=== PATIENT | male | born 1950 | race African-American/Black ===

== ENCOUNTER 2020-01-05 15:09 | Inpatient (IN) | payer MEDICAID ==
[~2020-01-05] VITALS: Ht 175.3 cm; Wt 67.6 kg
[~2020-01-05 15:09] MED LIST: ACETAMINOPHEN325 M1 ORAL; BENZTROPINE ME0.5 MG PO; COLACE100 MG ORAL; DULCOLAX10 MG RC; DUONEB 0.5-3(2.53 ML HHN; FLEET ENEMA EX230 ML RC; FLEET ENEMA133 M1 RC; METFORMIN HCL500 M1 ORAL; MILK OF MA400 MG/51 ORAL; MOM30 ML ORAL; MULTIVITAMINS1 EAC2 ORAL; NORVASC5 MG ORAL; PLAVIX75 MG ORAL; SENNA8.6 M2 ORAL
[2020-01-05] MEDS ORDERED: CRANBERRY450 M5 PO (15:18)
[2020-01-05] MEDS ORDERED: HUMALOG100 UNIT/3 SUBQ (15:18)
[2020-01-05] MEDS ORDERED: FLOMAX0.4 MG ORAL (15:18)
[2020-01-05] MEDS ORDERED: Cefepime HCl 1 GM in D5W 55 ML IVPB ONE (15:30)
[2020-01-05] MEDS ORDERED: Vancomycin 1 GM in NS 275 ML IV ONE (15:30)
--- NOTE | 2020-01-05 15:33 | Emergency Room Report ---
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 According the nurse at the correction patient has been completely unresponsive today and was noted to have a heart rate of 130 bpm. Patient unable to participate in review of systems secondary to altered mental status. Patient was noted to have an oxygen saturation of 92% on room air and so was placed on 5 L nasal cannula by paramedics with resolution of his relative hypoxia. 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 COVID-19 Screening: Negative COVID-19 COVID-19 Testing Source: 11/28/19 Nursing Documentation-H Hx Cardiac Problems: Yes Hx Hypertension: Yes Hx Pacemaker: No Hx Asthma: No Hx COPD: Yes Hx Diabetes: Yes Hx Cancer: No Hx Gastrointestinal Problems: Yes Hx Neurological Problems: Yes - paraplegia Hx Dementia: Yes Hx Alzheimer's Disease: No Hx Parkinson's Disease: No - EPS Hx Meningitis: No Hx Encephalitis: No Hx Seizures: No Hx Epilepsy: No Hx Multiple Sclerosis: No Hx Cerebral Palsy: No Hx Amyotrophic Lat Sclerosis: No Hx Guillian-Rushford Syndrome: No Hx Paralysis: Yes - paraplegia Hx Peripheral Neuropathy: No Hx Spinal Cord Injury: No Hx Head Trauma: No Hx Traumatic Brain Injury: No Hx Memory Loss: No Hx Concentration Difficulty: Yes Hx Speech Problem: No Hx Tremors: No Hx Vertigo: No Hx Dizziness: No Hx Syncope: No Hx Headaches: No Hx Aphasia: No Hx Dysphasia: No Hx Numbness: No Hx Weakness: Yes Hx Fatigue: Yes Hx Neurologic Surgery: No Hx Brain Shunt: No Review of Systems All Other Systems: limited - Limited secondary to altered mental status Physical Exam Vital Signs Date Time Temp Pulse Resp B/P (MAP) Pulse Ox O2 Delivery O2 Flow Rate FiO2 01/05/20 15:06 97.5 131 20 103/66 (78) 95 Room Air Sp02 EP Interpretation: reviewed, normal General Appearance: other - Nonverbal and unresponsive, appears chronically ill. Mildly tachypneic Head: normocephalic, atraumatic Eyes: bilateral eye normal inspection, bilateral eye PERRL ENT: hearing grossly normal, normal pharynx, no angioedema, normal voice Neck: full range of motion, supple/symm/no masses Respiratory: chest non-tender, lungs clear, normal breath sounds, speaking full sentences Cardiovascular #1: regular rate, rhythm, no edema Cardiovascular #2: 2+ carotid (R), 2+ carotid (L), 2+ radial (R), 2+ radial (L), 2+ dorsalis pedis (R), 2+ dorsalis pedis (L) Gastrointestinal: normal bowel sounds, non tender, soft, non-distended, no guarding, no rebound Rectal: deferred Genitourinary: normal inspection, no CVA tenderness Musculoskeletal: back normal, normal range of motion, calf tenderness, gait/station normal, non-tender Neurologic: alert, motor strength/tone normal, oriented x3, sensory intact, responsive, speech normal Psychiatric: judgement/insight normal, memory normal, mood/affect normal, no suicidal/homicidal ideation Reflexes: 3+ bicep (R), 3+ bicep (L), 3+ tricep (R), 3+ tricep (L), 3+ knee (R), 3+ knee (L) Lymphatic: no adenopathy Medical Decision Making Diagnostic Impression: Primary Impression: Hypernatremia Additional Impressions: Dehydration Hypovolemic shock Lactic acid acidosis ER Course Total critical care time: Approximately 45 minutes Due to a high probability of clinically significant, life threatening deterioration, the patient required the highest level of preparedness to intervene emergently and I personally spent this critical care time directly and personally managing the patient. This critical care time included obtaining a history, examining the patient, pulse oximetry, ordering and reviewing studies, ordering treatments, evaluating response to treatment and updating management plan as needed, frequent reassessment and discussion with other providers as well as arranging for ultimate disposition. This critical to care time was performed to assess and manage the high probability of life-threatening deterioration that could result in multiorgan failure. This critical care time is separate from the separately billable procedures and treating other patients. Laboratory Tests Test 01/05/20 13:50 01/05/20 15:40 01/05/20 17:05 01/05/20 19:37 Urine Color Yellow Urine Appearance Clear Urine pH 5 (4.5-8.0) Urine Specific [place] 1.025 (1.005-1.035) Urine Protein 2+ (NEGATIVE) H Urine Glucose (UA) Negative (NEGATIVE) Urine Ketones 1+ (NEGATIVE) H Urine Blood Negative (NEGATIVE) Urine Nitrite Negative (NEGATIVE) Urine Bilirubin Negative (NEGATIVE) Urine Urobilinogen Normal MG/DL (0.0-1.0) Urine Leukocyte Esterase Negative (NEGATIVE) Urine RBC 0-2 /HPF (0 - 0) H Urine WBC 0-2 /HPF (0 - 0) Urine Squamous Epithelial Cells Occasional /LPF Urine Bacteria Few /HPF (NONE) White Blood Count 10.0 K/UL (4.8-10.8) Red Blood Count 3.49 M/UL (4.70-6.10) L Hemoglobin 10.2 G/DL (14.2-18.0) L Hematocrit 32.6 % (42.0-52.0) L Mean Corpuscular Volume 93 FL (80-99) Mean Corpuscular Hemoglobin 29.2 PG (27.0-31.0) Mean Corpuscular Hemoglobin Concent 31.2 G/DL (32.0-36.0) L Red Cell Distribution Width 19.8 % (11.6-14.8) H Platelet Count 236 K/UL (150-450) Mean Platelet Volume 6.6 FL (6.5-10.1) Neutrophils (%) (Auto) 70.4 % (45.0-75.0) Lymphocytes (%) (Auto) 21.5 % (20.0-45.0) Monocytes (%) (Auto) 7.1 % (1.0-10.0) Eosinophils (%) (Auto) 0.2 % (0.0-3.0) Basophils (%) (Auto) 0.7 % (0.0-2.0) Sodium Level 163 MMOL/L (136-145) *H Potassium Level 3.8 MMOL/L (3.5-5.1) Chloride Level 124 MMOL/L (98-107) H Carbon Dioxide Level 19 MMOL/L (21-32) L Anion Gap 20 mmol/L (5-15) H Blood Urea Nitrogen 53 mg/dL (7-18) H Creatinine 3.1 MG/DL (0.55-1.30) H Estimated Glomerular Filtration Rate 24.2 mL/min (>60) Glucose Level 146 MG/DL (74-106) H Lactic Acid Level 4.50 mmol/L (0.4-2.0) H 3.80 mmol/L (0.66-2.22) H Calcium Level 12.5 MG/DL (8.5-10.1) H Magnesium Level 2.4 MG/DL (1.8-2.4) Total Bilirubin 0.4 MG/DL (0.2-1.0) Aspartate Amino Transferase (AST) 79 U/L (15-37) H Alanine Aminotransferase (ALT) 15 U/L (12-78) Alkaline Phosphatase 64 U/L (46-116) Total Creatine Kinase 79 U/L (26-308) Creatine Kinase MB < 0.5 NG/ML (0.0-3.6) Creatine Kinase MB Relative Index 0.6 Troponin I 0.019 ng/mL (0.000-0.056) Total Protein 7.6 G/DL (6.4-8.2) Albumin 3.1 G/DL (3.4-5.0) L Globulin 4.5 g/dL Albumin/Globulin Ratio 0.7 (1.0-2.7) L POC Whole Blood Glucose 110 MG/DL (74-106) H Microbiology Date/Time Source Procedure Growth Status 01/05/20 15:40 Nasopharynx SARS-CoV-2 RdRp Gene Assay - Final Complete 01/05/20 13:40 Nasal Nares - Final Complete 01/05/20 13:40 Nasal Nares - Final Complete EKG: Sinus rhythm 131 bpm. Leftward axis, no ischemia, intervals WNL. No ectopy Rhythm strip: patient monitored for arrhythmias - no malignant dysrhythmias, runs of PVCs, nor pauses noted 69-year-old male here with altered mental status. The patient was highly lethargic when he arrived in the emergency department and was tachycardic at around 140 bpm. He was newly started IV normal saline and had gradual resolution of his tachycardia and improvement over the following several hours. CT head was unremarkable. Chest x-ray was largely unremarkable as well and patient no evidence of infection on urinalysis. However when patient arrived he was tachycardic and had a mildly low blood pressure. There was concern for sepsis and patient was given vancomycin and cefepime on arrival to the emergency department. However no evidence of infection was found in the ER. Blood cultures currently pending. Patient received a 30 cc/kg fluid bolus in the emergency room. Initial lactate was elevated and repeat lactate was mildly improved. Patient's mental status also greatly improved throughout his stay in the emergency department with IV fluids. He had a notable marked hypernatremia of 163. Admitted to SDU in critical condition. Last Vital Signs Date Time Temp Pulse Resp B/P (MAP) Pulse Ox O2 Delivery O2 Flow Rate FiO2 01/05/20 15:06 97.5 131 20 103/66 (78) 95 Room Air Jeison Hernandes M.D. Jan 05, 2020 15:33
[2020-01-05] MEDS: Albuterol/Ipratropium 3ml neb HHN SCH ×4 (16:00→18:29)
[2020-01-05 16:19] VITALS: BP 109/57
[2020-01-05 16:21] LABS: APPEARANCE,URINE CLEAR; BILIRUBIN, URINE NEGATIVE (NEGATIVE); COLOR,URINE YELLOW; GLUCOSE, URINE (UA) NEGATIVE (NEGATIVE); KETONES,URINE 1+ (NEGATIVE); LEUKOCYTE ESTERASE ,URINE NEGATIVE (NEGATIVE); NITRITE,URINE NEGATIVE (NEGATIVE); PH,URINE 5 (4.5-8.0); PROTEIN,URINE 2+ (NEGATIVE); UROBILINOGEN,URINE NORMAL MG/DL (0.0-1.0)
[2020-01-05 16:29] LABS: BASOPHILS % (AUTO) 0.7 % (0.0-2.0); EOSINOPHILS % (AUTO) 0.2 % (0.0-3.0); HEMATOCRIT 32.6 % (42.0-52.0); HEMOGLOBIN 10.2 G/DL (14.2-18.0); LYMPHOCYTES % (AUTO) 21.5 % (20.0-45.0); MEAN CORPUSCULAR VOLUME 93 FL (80-99); MONOCYTES % (AUTO) 7.1 % (1.0-10.0); NEUTROPHILS % (AUTO) 70.4 % (45.0-75.0); PLATELET COUNT 236 K/UL (150-450); RED BLOOD COUNT 3.49 M/UL (4.70-6.10); RED CELL DISTRIBUTION WIDTH 19.8 % (11.6-14.8)
--- NOTE | 2020-01-05 16:33 | Diagnostic Imaging Report ---
EXAM: XR Chest, 1 View CLINICAL HISTORY: AMS TECHNIQUE: Frontal view of the chest. COMPARISON: Chest x-ray 03/18/19 FINDINGS: Lungs: Mild interstitial vascular prominence. No focal infiltrate or consolidation. Pleural space: Unremarkable. No pneumothorax. Heart: Unremarkable. No cardiomegaly. Mediastinum: Unremarkable. Bones/joints: Unremarkable. IMPRESSION: Mild interstitial vascular prominence. No focal infiltrate or consolidation.
[2020-01-05 16:52] LABS: ALANINE AMINOTRANSFERASE 15 U/L (12-78); ALBUMIN 3.1 G/DL (3.4-5.0); ALBUMIN/GLOBULIN RATIO 0.7 (1.0-2.7); ALKALINE PHOSPHATASE 64 U/L (46-116); ANION GAP 20 mmol/L (5-15); ASPARTATE AMINO TRANSFERASE 79 U/L (15-37); BILIRUBIN,TOTAL 0.4 MG/DL (0.2-1.0); BLOOD UREA NITROGEN 53 mg/dL (7-18); CALCIUM 12.5 MG/DL (8.5-10.1); CARBON DIOXIDE 19 MMOL/L (21-32); CHLORIDE 124 MMOL/L (98-107); CKMB < 0.5 NG/ML (0.0-3.6); CREATINE KINASE 79 U/L (26-308); CREATININE 3.1 MG/DL (0.55-1.30); POTASSIUM 3.8 MMOL/L (3.5-5.1)
[2020-01-05 16:53] LABS: SODIUM 163 MMOL/L (136-145)
--- NOTE | 2020-01-05 17:39 | Diagnostic Imaging Report ---
EXAM: CT Head Without Intravenous Contrast CLINICAL HISTORY: AMS TECHNIQUE: Axial computed tomography images of the head/brain without intravenous contrast. CTDI is 106.8 mGy and DLP is 2531.0 mGy-cm. One or more of the following dose reduction techniques were used: automated exposure control, adjustment of the mA and/or kV according to patient size, use of iterative reconstruction technique. COMPARISON: No previous studies. FINDINGS: Limitations: Markedly limited, near nondiagnostic evaluation due to motion artifact. Brain: Grossly, no extra-axial collection. No hemorrhage. Midline shift: No midline shift or mass-effect per Ventricles: There is prominence of the ventricular system, cortical sulci, basilar cisterns, compatible with age related atrophy. Bones/joints: Calvarium is within normal limits. No acute fracture. Soft tissues: Unremarkable. Sinuses: Unremarkable as visualized. No acute sinusitis. Mastoid air cells: Mastoid air cells are well pneumatized. IMPRESSION: 1. Markedly limited, near nondiagnostic evaluation due to motion artifact. 2. Grossly, age-related changes and small vessel disease of aging are noted. 3. Again grossly, no acute intracranial pathology is detected. 4. If there is a high degree of concern or if there is concern for subtle abnormalities, magnetic resonance imaging of the brain with diffusion-weighted sequences should be performed, due to the markedly limited nature of the current study. 5. Close clinical correlation is necessary.
[2020-01-05 18:13] VITALS: BP 124/67
[2020-01-05 20:00] VITALS: BP 106/62
[2020-01-05] MEDS ORDERED: Albuterol/Ipratropium 3ml neb HHN PRN (20:15)
[2020-01-05] MEDS ORDERED: Fleet's Enema 133ml RECTAL PRN (20:15)
[2020-01-05] MEDS ORDERED: Milk of Magnesia 30ml Ud ORAL PRN (20:15)
[2020-01-05] MEDS: Tamsulosin 0.4mg cap ORAL SCH (21:00)
[2020-01-05] MEDS: NovoLOG Insulin Flexpen SUBQ SCH (21:00)
[2020-01-05] MEDS ORDERED: NovoLOG Insulin Flexpen SUBQ SCH (21:00)
[2020-01-05] MEDS: Sennosides 8.6mg tab ORAL SCH (21:00)
[2020-01-05] MEDS ORDERED: D5 1/2NS 1,000 ML IV SCH (21:00)
[2020-01-05] MEDS: Pantoprazole Inj IVP SCH (21:23)
[2020-01-06] VITALS: BP 103/62
[2020-01-06] MEDS ORDERED: Morphine Sulfate 2mg/ml Inj(IV/IM USE ONLY) IVP PRN (00:45)
[2020-01-06] MEDS ORDERED: Albuterol/Ipratropium 3ml neb HHN PRN (00:45)
[2020-01-06 03:47] VITALS: BP 110/64
[2020-01-06] MEDS: NovoLOG Insulin Flexpen SUBQ SCH ×4 (05:46→20:11)
[2020-01-06 07:07] LABS: BASOPHILS % (AUTO) 0.9 % (0.0-2.0); EOSINOPHILS % (AUTO) 0.7 % (0.0-3.0); HEMATOCRIT 31.4 % (42.0-52.0); HEMOGLOBIN 9.7 G/DL (14.2-18.0); LYMPHOCYTES % (AUTO) 20.4 % (20.0-45.0); MEAN CORPUSCULAR VOLUME 96 FL (80-99); MONOCYTES % (AUTO) 7.5 % (1.0-10.0); NEUTROPHILS % (AUTO) 70.5 % (45.0-75.0); PLATELET COUNT 198 K/UL (150-450); RED BLOOD COUNT 3.26 M/UL (4.70-6.10); RED CELL DISTRIBUTION WIDTH 19.9 % (11.6-14.8); WHITE BLOOD COUNT 8.3 K/UL (4.8-10.8)
[2020-01-06 07:41] LABS: % IRON SATURATION 53 % (15-50); CREATINE KINASE 105 U/L (26-308); GAMMA GLUTAMYL TRANSPEPTIDASE 43 U/L (5-85); IRON 114 ug/dL (50-175); LACTATE DEHYDROGENASE 415 U/L (81-234); TOTAL IRON BINDING CAPACITY 216 ug/dL (250-450)
[2020-01-06 07:54] LABS: ALBUMIN 2.8 G/DL (3.4-5.0); ALBUMIN/GLOBULIN RATIO 0.7 (1.0-2.7); BILIRUBIN,TOTAL 0.3 MG/DL (0.2-1.0); CALCIUM 11.5 MG/DL (8.5-10.1); CREATININE 2.8 MG/DL (0.55-1.30); PHOSPHORUS 3.4 MG/DL (2.5-4.9); POTASSIUM 3.3 MMOL/L (3.5-5.1)
[2020-01-06 08:00] VITALS: BP 107/68
[2020-01-06] MEDS ORDERED: metFORMIN 500mg tab ORAL SCH (09:00)
[2020-01-06] MEDS: Pantoprazole Inj IVP SCH ×2 (09:03→20:08)
[2020-01-06] MEDS: Benztropine 1mg tab ORAL SCH ×2 (09:04→18:00)
[2020-01-06] MEDS: Heparin 5000 units/ml inj SUBQ SCH ×2 (09:05→18:19)
[2020-01-06] MEDS: Docusate 100mg cap ORAL SCH (09:30)
[2020-01-06] MEDS: cefTRIAXone 1 GM in D5W 55 ML IVPB SCH (11:30)
[2020-01-06 12:00] VITALS: BP 100/62
--- NOTE | 2020-01-06 12:45 | History and Physical Report ---
DATE OF ADMISSION: 01/05/2020 TIME SEEN: 9 a.m. CONSULTANTS: 1. Dhiraj Biswas MD. 2. Kevin Lopez MD. CHIEF COMPLAINT: Dehydration, altered mental status, hypernatremia, tachycardia. BRIEF HISTORY: This is a 69-year-old male from [facility] presented with above-mentioned diagnoses, admitted to step-down unit, currently confused in bed, not talking much. REVIEW OF SYSTEMS: Unavailable. PAST MEDICAL HISTORY: Diabetes, hypertension, weakness, paraplegia, renal failure. PAST SURGICAL HISTORY: Unknown. MEDICATIONS: Ceftriaxone, potassium, heparin, benztropine, metformin, amlodipine, albuterol, insulin, tamsulosin, pantoprazole, magnesium, Bisacodyl. ALLERGIES: Denies. SOCIAL HISTORY: Unable to obtain secondary to the patient's condition. OBJECTIVE: GENERAL: Calm in bed, confused, not answering questions. VITAL SIGNS: Temperature is 97, pulse 108, respiratory rate 18, blood pressure 110/64. CARDIOVASCULAR: No murmur. LUNGS: Poor exchange. ABDOMEN: Bowel sounds distant. EXTREMITIES: No cyanosis or edema. NEUROLOGIC: The patient moves all extremities, slightly weak. LABORATORY AND DIAGNOSTIC DATA: Labs at this time show hemoglobin and hematocrit 9.7 and 31. BMP shows sodium 161, potassium 3.3, chloride 128, BUN and creatinine 40/2.8. Lactic acid 2.7. Albumin 2.8. Urinalysis show 1+ ketone, 2+ protein. ASSESSMENT: 1. Dehydration. 2. Altered mental status. 3. AVIS. 4. Hypernatremia. 5. Tachycardia. 6. Septic shock. 7. Anemia. 8. Malnutrition. 9. Diabetes. 10. . 11. COPD. 12. Renal failure. 13. Weakness. 14. Paraplegia. PLAN: 1. O2 and pulmonary treatment as needed. 2. NPO, IV fluids. 3. Antibiotics per Infectious Diseases. 4. Blood pressure, blood sugar, pain control. 5. IV fluids. 6. CBC and BMP in the morning. 7. PT and dietary evaluation. 8. We will ask Psych, Neuro, GI, ID followup. Farrukh Ríos D.O. DR: Johnny JOB#: [id number] CC:
--- NOTE | 2020-01-06 12:56 | Consultation ---
Consult Note Consult Note I am asked to evaluate the patient at the request of Dr. Ríos for renal failure and electrolyte imbalances Patient does not give any history Patient seen and examined. RN present in the room. Emergency room note: Chief Complaint: Altered Level of Consciousness 69-year-old male retirement patient nonverbal at baseline but occasionally responds with incomprehensible sounds and moving his arms, here with altered mental status. According the nurse at the retirement patient has been completely unresponsive today and was noted to have a heart rate of 130 bpm. Patient unable to participate in review of systems secondary to altered mental status. Patient was noted to have an oxygen saturation of 92% on room air and so was placed on 5 L nasal cannula by paramedics with resolution of his relative hypoxia. 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 HEAD AND NECK: Shows no JVD. LUNGS: Coarse rhonchi. CARDIOVASCULAR: Shows regular S1 and S2 with no gallop. ABDOMEN: Soft. EXTREMITIES: No pitting edema. LABORATORY DATA: Labs show white count of 8.3, hemoglobin of 9.7, hematocrit 31.4, and platelet count is 198. His sodium is 161, potassium is 3.3, BUN of 40, creatinine 2.8, and glucose of 113. His urinalysis was essentially negative. . Assessment/Plan Acute renal failure Possible underlying chronic kidney failure Severe dehydration Hypernatremia indicative of severe water deficit Severe hyperuricemia, partly due to dehydration and renal failure Acute metabolic and toxic encephalopathy Mild, malnutrition Anemia Lactic acid, possible sepsis Hypercalcemia D5W IV hydration Albumin bolus N.p.o. until able to take p.o. Antibiotics Monitor renal parameters I spent an additional 36 minutes on review of medical records including prior hospital records,consult notes, progress notes, procedures ,imaging labs, hemodynamics, and other clinical documentation. Over 35 min Dhiraj Biswas MD Jan 06, 2020 12:56
[2020-01-06] MEDS ORDERED: Varibar Thin Liquid powder 148gm MC PRN (15:30)
[2020-01-06] MEDS ORDERED: Varibar Nectar 240ml MC PRN (15:30)
[2020-01-06] MEDS ORDERED: Varibar Pudding 230ml MC PRN (15:30)
[2020-01-06] MEDS ORDERED: Varibar Honey 250ml MC PRN (15:30)
[2020-01-06 16:00] VITALS: BP 112/63
--- NOTE | 2020-01-06 18:20 | Cardiac Electrophysiology PN ---
Subjective Subjective [id number] Objective Last 24 Hour Vital Signs Date Time Temp Pulse Resp B/P (MAP) Pulse Ox O2 Delivery O2 Flow Rate FiO2 01/06/20 16:00 Room Air 01/06/20 16:00 96.4 103 19 112/63 (79) 100 01/06/20 15:29 104 01/06/20 12:00 96.6 108 19 100/62 (75) 100 01/06/20 12:00 Room Air 01/06/20 11:59 107 01/06/20 08:00 96.3 109 18 107/68 (81) 100 01/06/20 08:00 Room Air 01/06/20 07:39 108 01/06/20 04:00 Room Air 01/06/20 03:47 97.0 108 18 110/64 (79) 99 01/06/20 03:34 108 01/06/20 00:00 97.1 112 18 103/62 (76) 99 01/06/20 00:00 Room Air 01/05/20 23:41 112 01/05/20 21:28 Room Air 4.0 01/05/20 20:00 97.6 120 16 106/62 (77) 98 01/05/20 20:00 Room Air 01/05/20 20:00 121 01/05/20 19:21 120 01/05/20 18:37 97.5 117 22 124/67 100 Room Air 4.0 Intake and Output 01/05/20 01/06/20 19:00 07:00 Intake Total 843.75 ml Output Total 400 ml Balance 443.75 ml Intake IV Total 843.75 ml Output Urine Total 400 ml # Voids 1 # Bowel Movements 1 Laboratory Tests Test 01/05/20 19:37 01/06/20 05:09 01/06/20 06:25 01/06/20 08:50 POC Whole Blood Glucose 110 MG/DL (74-106) H 111 MG/DL (74-106) H White Blood Count 8.3 K/UL (4.8-10.8) Red Blood Count 3.26 M/UL (4.70-6.10) L Hemoglobin 9.7 G/DL (14.2-18.0) L Hematocrit 31.4 % (42.0-52.0) L Mean Corpuscular Volume 96 FL (80-99) Mean Corpuscular Hemoglobin 29.8 PG (27.0-31.0) Mean Corpuscular Hemoglobin Concent 30.9 G/DL (32.0-36.0) L Red Cell Distribution Width 19.9 % (11.6-14.8) H Platelet Count 198 K/UL (150-450) Mean Platelet Volume 6.4 FL (6.5-10.1) L Neutrophils (%) (Auto) 70.5 % (45.0-75.0) Lymphocytes (%) (Auto) 20.4 % (20.0-45.0) Monocytes (%) (Auto) 7.5 % (1.0-10.0) Eosinophils (%) (Auto) 0.7 % (0.0-3.0) Basophils (%) (Auto) 0.9 % (0.0-2.0) Sodium Level 161 MMOL/L (136-145) *H Potassium Level 3.3 MMOL/L (3.5-5.1) L Chloride Level 125 MMOL/L (98-107) H Carbon Dioxide Level 22 MMOL/L (21-32) Anion Gap 14 mmol/L (5-15) Blood Urea Nitrogen 48 mg/dL (7-18) H Creatinine 2.8 MG/DL (0.55-1.30) H Estimat Glomerular Filtration Rate 27.3 mL/min (>60) Glucose Level 113 MG/DL (74-106) H Hemoglobin A1c 5.6 % (4.3-6.0) Lactic Acid Level 2.70 mmol/L (0.4-2.0) H 2.70 mmol/L (0.66-2.22) H Uric Acid 29.3 MG/DL (2.6-7.2) H Calcium Level 11.5 MG/DL (8.5-10.1) H Phosphorus Level 3.4 MG/DL (2.5-4.9) Magnesium Level 2.2 MG/DL (1.8-2.4) Iron Level 114 ug/dL (50-175) Total Iron Binding Capacity 216 ug/dL (250-450) L Percent Iron Saturation 53 % (15-50) H Unsaturated Iron Binding 102 ug/dL (112-346) L Ferritin 955 NG/ML (8-388) H Total Bilirubin 0.3 MG/DL (0.2-1.0) Gamma Glutamyl Transpeptidase 43 U/L (5-85) Aspartate Amino Transf (AST/SGOT) 79 U/L (15-37) H Alanine Aminotransferase (ALT/SGPT) 14 U/L (12-78) Alkaline Phosphatase 55 U/L (46-116) Lactate Dehydrogenase 415 U/L (81-234) H Total Creatine Kinase 105 U/L (26-308) Total Protein 6.8 G/DL (6.4-8.2) Albumin 2.8 G/DL (3.4-5.0) L Globulin 4.0 g/dL Albumin/Globulin Ratio 0.7 (1.0-2.7) L Vitamin B12 Level 564 PG/ML (193-986) Folate 9.4 NG/ML (8.6-58.9) Thyroid Stimulating Hormone (TSH) 1.111 uiU/mL (0.358-3.740) Test 01/06/20 11:35 01/06/20 16:52 POC Whole Blood Glucose 93 MG/DL (74-106) 84 MG/DL (74-106) Microbiology Date/Time Source Procedure Growth Status 01/05/20 15:40 Nasopharynx SARS-CoV-2 RdRp Gene Assay - Final Complete 01/05/20 13:40 Nasal Nares - Final Complete 01/05/20 13:40 Nasal Nares - Final Complete Kevin Lopez MD Jan 06, 2020 18:20
[2020-01-06 20:00] VITALS: BP 101/62
[2020-01-06] MEDS: Sennosides 8.6mg tab ORAL SCH (20:08)
[2020-01-06] MEDS: Tamsulosin 0.4mg cap ORAL SCH (20:09)
--- NOTE | 2020-01-06 20:45 | Consultation ---
DATE OF CONSULTATION: 01/06/2020 CARDIOLOGY CONSULTATION REFERRING PHYSICIAN: Farrukh Ríos M.D. REASON FOR CONSULTATION: Management of hypertension and shortness of breath. HISTORY OF PRESENT ILLNESS: The patient is a 69-year-old gentleman with a history of hypertension who [facility], who was brought in for unresponsiveness and heart rate of 130. The patient was altered and saturation was 92% and was placed on 5 liters nasal cannula by paramedics and hypoxia resolved. The patient was transferred to the emergency room for further evaluation and management. REVIEW OF SYSTEMS: Cannot be obtained. PAST MEDICAL HISTORY: As mentioned above. FAMILY HISTORY: Noncontributory. SOCIAL HISTORY: He is a jail resident. Does not smoke or drink alcohol. PHYSICAL EXAMINATION: VITAL SIGNS: Show blood pressure 103/66, pulse was 130, respirations 20, and he is afebrile. HEAD AND NECK: Shows no JVD. LUNGS: Coarse rhonchi. CARDIOVASCULAR: Shows regular S1 and S2 with no gallop. ABDOMEN: Soft. EXTREMITIES: No pitting edema. LABORATORY DATA: Labs show white count of 8.3, hemoglobin of 9.7, hematocrit 31.4, and platelet count is 198. His sodium is 161, potassium is 3.3, BUN of 40, creatinine 2.8, and glucose of 113. His urinalysis was essentially negative. ASSESSMENT AND PLAN: 1. Altered mental status, likely due to severe dehydration in view of sodium of 160 and acute renal failure. The patient is getting IV fluids as well as IV antibiotics. 2. History of hypertension. We will hold off on his blood pressure medication at this time. 3. History of CVA, on Plavix. Of note at the jail, the patient was on amlodipine and metoprolol, but has been discontinued in view of relative hypotension. 4. Advanced dementia. 5. Diabetes. 6. Acute renal failure. The patient is being hydrated. Thank you very much for allowing me to participate in the care of this patient. Please do not hesitate to contact me for any questions regarding my evaluation. Kevin Lopez M.D. DR: Alysa JOB#: [id number] CC:
[2020-01-07] VITALS: BP 97/53
[2020-01-07 04:00] VITALS: BP 115/67
[2020-01-07 06:23] LABS: BASOPHILS % (AUTO) 0.7 % (0.0-2.0); HEMATOCRIT 29.1 % (42.0-52.0); LYMPHOCYTES % (AUTO) 26.6 % (20.0-45.0); MEAN CORPUSCULAR VOLUME 96 FL (80-99); NEUTROPHILS % (AUTO) 65.7 % (45.0-75.0); PLATELET COUNT 192 K/UL (150-450); RED BLOOD COUNT 3.04 M/UL (4.70-6.10); RED CELL DISTRIBUTION WIDTH 20.5 % (11.6-14.8); WHITE BLOOD COUNT 7.7 K/UL (4.8-10.8)
[2020-01-07] MEDS: NovoLOG Insulin Flexpen SUBQ SCH ×4 (06:30→21:00)
[2020-01-07 07:02] LABS: ALBUMIN 2.6 G/DL (3.4-5.0); ALBUMIN/GLOBULIN RATIO 0.6 (1.0-2.7); BILIRUBIN,TOTAL 0.3 MG/DL (0.2-1.0); CALCIUM 11.3 MG/DL (8.5-10.1); CREATININE 2.8 MG/DL (0.55-1.30); PHOSPHORUS 3.7 MG/DL (2.5-4.9); POTASSIUM 3.2 MMOL/L (3.5-5.1)
[2020-01-07 07:59] VITALS: BP 106/59
[2020-01-07] MEDS: Docusate 100mg cap ORAL SCH (08:50)
[2020-01-07] MEDS ORDERED: Tubing IV Secondary IV ONE ×2 (08:56→17:35)
[2020-01-07] MEDS: Heparin 5000 units/ml inj SUBQ SCH ×2 (09:07→21:03)
[2020-01-07] MEDS: Pantoprazole Inj IVP SCH ×2 (09:08→20:51)
[2020-01-07] MEDS: Benztropine 1mg tab ORAL SCH ×2 (09:08→17:14)
--- NOTE | 2020-01-07 09:35 | General Progress Note ---
Subjective Constitutional: Reports: weakness Allergies: Coded Allergies: No Known Allergies (Unverified , 03/18/19) All Systems: reviewed and negative except above Subjective sleepy calm in bed Objective Last 24 Hour Vital Signs Date Time Temp Pulse Resp B/P (MAP) Pulse Ox O2 Delivery O2 Flow Rate FiO2 01/07/20 08:00 93 01/07/20 08:00 Room Air 01/07/20 07:59 97.2 100 20 106/59 (75) 100 01/07/20 04:00 97.6 96 18 115/67 (83) 99 01/07/20 04:00 Room Air 01/07/20 03:53 91 01/07/20 00:00 97.8 89 16 97/53 (68) 100 01/07/20 00:00 Room Air 01/06/20 23:58 100 01/06/20 20:00 97.4 101 16 101/62 (75) 100 01/06/20 20:00 102 01/06/20 20:00 Room Air 01/06/20 18:58 103 20 99 Room Air 21 01/06/20 16:00 Room Air 01/06/20 16:00 96.4 103 19 112/63 (79) 100 01/06/20 15:29 104 01/06/20 12:00 96.6 108 19 100/62 (75) 100 01/06/20 12:00 Room Air 01/06/20 11:59 107 Intake and Output 01/06/20 01/07/20 19:00 07:00 Intake Total 950 ml 822 ml Output Total 500 ml 300 ml Balance 450 ml 522 ml Intake IV Total 950 ml 822 ml Output Urine Total 500 ml 300 ml Laboratory Tests 01/06/20 11:35: POC Whole Blood Glucose 93 01/06/20 16:52: POC Whole Blood Glucose 84 01/06/20 20:11: POC Whole Blood Glucose 75 01/07/20 03:00: Urine Random Sodium 26 01/07/20 04:09: White Blood Count 7.7, Red Blood Count 3.04L, Hemoglobin 9.0L, Hematocrit 29.1L, Mean Corpuscular Volume 96, Mean Corpuscular Hemoglobin 29.6, Mean Corpuscular Hemoglobin Concent 30.9L, Red Cell Distribution Width 20.5H, Platelet Count 192, Mean Platelet Volume 6.3L, Neutrophils (%) (Auto) 65.7, Lymphocytes (%) (Auto) 26.6, Monocytes (%) (Auto) 6.0, Eosinophils (%) (Auto) 1.0, Basophils (%) (Auto) 0.7, Sodium Level 152H, Potassium Level 3.2L, Chloride Level 116H, Carbon Dioxide Level 18L, Anion Gap 18H, Blood Urea Nitrogen 48H, Creatinine 2.8H, Estimat Glomerular Filtration Rate 27.3, Glucose Level 94, Uric Acid 27.4H, Calcium Level 11.3H, Phosphorus Level 3.7, Magnesium Level 2.0, Total Bilirubin 0.3, Aspartate Amino Transf (AST/SGOT) 93H, Alanine Aminotransferase (ALT/SGPT) 14, Alkaline Phosphatase 56, Troponin I 0.009, C-Reactive Protein, Quantitative 4.9H, Pro-B-Type Natriuretic Peptide 1312H, Total Protein 6.7, Albumin 2.6L, Globulin 4.1, Albumin/Globulin Ratio 0.6L 01/07/20 06:18: POC Whole Blood Glucose 97 Height (Feet): 6 Height (Inches): 0.00 Weight (Pounds): 150 General Appearance: lethargic EENT: normal ENT inspection Neck: normal alignment Cardiovascular: normal peripheral pulses, normal rate, regular rhythm Respiratory/Chest: chest wall non-tender, lungs clear, normal breath sounds Abdomen: normal bowel sounds, non tender, soft Extremities: normal inspection Edema: no edema noted Arm (L), no edema noted Arm (R), no edema noted Leg (L), no edema noted Leg (R), no edema noted Pedal (L), no edema noted Pedal (R), no edema noted Generalized Neurologic: motor weakness Skin: normal pigmentation, warm/dry Assessment/Plan Problem List: (1) Anemia ICD Codes: D64.9 - Anemia, unspecified SNOMED: 434803015 (2) Paraplegia ICD Codes: G82.20 - Paraplegia, unspecified SNOMED: 20773103 (3) Diabetes ICD Codes: E11.9 - Type 2 diabetes mellitus without complications SNOMED: 79863898 (4) Weak ICD Codes: R53.1 - Weakness SNOMED: 76819457 (5) HTN (hypertension) ICD Codes: I10 - Essential (primary) hypertension SNOMED: 15911257 (6) ARF (acute renal failure) ICD Codes: N17.9 - Acute kidney failure, unspecified SNOMED: 92275060 (7) Altered level of consciousness ICD Codes: R40.4 - Transient alteration of awareness SNOMED: 0273734 (8) Dehydration ICD Codes: E86.0 - Dehydration SNOMED: 79866204 (9) Hypernatremia ICD Codes: E87.0 - Hyperosmolality and hypernatremia SNOMED: 335340795 Status: unchanged Assessment/Plan: o2 pulm tx abx ivf cbc bmp am Farrukh Ríos DO Jan 07, 2020 09:35
--- NOTE | 2020-01-07 09:37 | General Progress Note ---
Subjective ROS Limited/Unobtainable: No Allergies: Coded Allergies: No Known Allergies (Unverified , 03/18/19) Objective Last 24 Hour Vital Signs Date Time Temp Pulse Resp B/P (MAP) Pulse Ox O2 Delivery O2 Flow Rate FiO2 01/07/20 08:00 93 01/07/20 08:00 Room Air 01/07/20 07:59 97.2 100 20 106/59 (75) 100 01/07/20 04:00 97.6 96 18 115/67 (83) 99 01/07/20 04:00 Room Air 01/07/20 03:53 91 01/07/20 00:00 97.8 89 16 97/53 (68) 100 01/07/20 00:00 Room Air 01/06/20 23:58 100 01/06/20 20:00 97.4 101 16 101/62 (75) 100 01/06/20 20:00 102 01/06/20 20:00 Room Air 01/06/20 18:58 103 20 99 Room Air 21 01/06/20 16:00 Room Air 01/06/20 16:00 96.4 103 19 112/63 (79) 100 01/06/20 15:29 104 01/06/20 12:00 96.6 108 19 100/62 (75) 100 01/06/20 12:00 Room Air 01/06/20 11:59 107 Intake and Output 01/06/20 01/07/20 19:00 07:00 Intake Total 950 ml 822 ml Output Total 500 ml 300 ml Balance 450 ml 522 ml Intake IV Total 950 ml 822 ml Output Urine Total 500 ml 300 ml Laboratory Tests 01/06/20 11:35: POC Whole Blood Glucose 93 01/06/20 16:52: POC Whole Blood Glucose 84 01/06/20 20:11: POC Whole Blood Glucose 75 01/07/20 03:00: Urine Random Sodium 26 01/07/20 04:09: White Blood Count 7.7, Red Blood Count 3.04L, Hemoglobin 9.0L, Hematocrit 29.1L, Mean Corpuscular Volume 96, Mean Corpuscular Hemoglobin 29.6, Mean Corpuscular Hemoglobin Concent 30.9L, Red Cell Distribution Width 20.5H, Platelet Count 192, Mean Platelet Volume 6.3L, Neutrophils (%) (Auto) 65.7, Lymphocytes (%) (Auto) 26.6, Monocytes (%) (Auto) 6.0, Eosinophils (%) (Auto) 1.0, Basophils (%) (Auto) 0.7, Sodium Level 152H, Potassium Level 3.2L, Chloride Level 116H, Carbon Dioxide Level 18L, Anion Gap 18H, Blood Urea Nitrogen 48H, Creatinine 2.8H, Estimat Glomerular Filtration Rate 27.3, Glucose Level 94, Uric Acid 27.4H, Calcium Level 11.3H, Phosphorus Level 3.7, Magnesium Level 2.0, Total Bilirubin 0.3, Aspartate Amino Transf (AST/SGOT) 93H, Alanine Aminotransferase (ALT/SGPT) 14, Alkaline Phosphatase 56, Troponin I 0.009, C-Reactive Protein, Quantitative 4.9H, Pro-B-Type Natriuretic Peptide 1312H, Total Protein 6.7, Albumin 2.6L, Globulin 4.1, Albumin/Globulin Ratio 0.6L 01/07/20 06:18: POC Whole Blood Glucose 97 Height (Feet): 6 Height (Inches): 0.00 Weight (Pounds): 150 General Appearance: confused EENT: normal ENT inspection Neck: supple Cardiovascular: normal rate Respiratory/Chest: decreased breath sounds Abdomen: hypoactive bowel sounds Extremities: non-tender Assessment/Plan Status: unchanged Assessment/Plan: AMS dementia Anemia DM hyper CA elevated AST low albumin COPD RI HTN pending swallow eval anemia work up GI procedures on hold fu nephrology and cardiology recs repeat labs Paulino Bueno MD Jan 07, 2020 09:37
[2020-01-07] MEDS: cefTRIAXone 1 GM in D5W 55 ML IVPB SCH (10:21)
[2020-01-07 12:00] VITALS: BP 98/60
--- NOTE | 2020-01-07 12:16 | Consultation ---
History of Present Illness General Chief Complaint: Altered Level of Consciousness Present Illness Allergies: Coded Allergies: No Known Allergies (Unverified , 03/18/19) Medication History Scheduled Amlodipine Besylate (Norvasc), 5 MG ORAL DAILY, (Reported) Benztropine Mesylate* (Cogentin*), 1.5 MG PO BID, (Reported) Clopidogrel Bisulfate* (Plavix*), 75 MG ORAL DAILY, (Reported) Cranberry Fruit (Cranberry), 450 MG PO TWICE A DAY, (Reported) Docusate Sodium* (Colace*), 200 MG ORAL DAILY, (Reported) Insulin Lispro (Humalog), 0 SUBQ BID AC, (Reported) Metformin Hcl* (Metformin Hcl*), 500 MG ORAL BID WITH MEALS, (Reported) Multivitamins* (Multivitamins*), 1 TAB ORAL DAILY, (Reported) Sennosides (Senna), 17.2 MG ORAL QHS, (Reported) Tamsulosin HCl (Flomax), 0.4 MG ORAL BEDTIME, (Reported) Scheduled PRN Acetaminophen* (Acetaminophen 325MG Tablet*), 650 MG ORAL Q4H PRN for Mild Pain (Pain Scale 1-3), (Reported) Acetaminophen* (Acetaminophen 325MG Tablet*), 650 MG ORAL Q4H PRN for Prn Headache/Temp > 101, (Reported) Bisacodyl (Dulcolax), 10 MG RC DAILY PRN for Constipation, (Reported) Ipratropium/Albuterol Sulfate (DuoNeb 0.5-3(2.5)mg/3ml), 3 ML HHN Q4HR PRN for Shortness of Breath, (Reported) Magnesium Hydroxide* (Milk Of Magnesia*), 30 ML ORAL QHS PRN for Constipation, (Reported) Na Phos,M-B/Na Phos,Di-Ba (Fleet Enema), 133 ML RC EVERY OTHER DAY PRN for Constipation, (Reported) Patient History Healthcare decision maker Resuscitation status Advanced Directive on File Physical Exam Last 24 Hour Vital Signs Date Time Temp Pulse Resp B/P (MAP) Pulse Ox O2 Delivery O2 Flow Rate FiO2 01/07/20 08:00 93 01/07/20 08:00 Room Air 01/07/20 07:59 97.2 100 20 106/59 (75) 100 01/07/20 04:00 97.6 96 18 115/67 (83) 99 01/07/20 04:00 Room Air 01/07/20 03:53 91 01/07/20 00:00 97.8 89 16 97/53 (68) 100 01/07/20 00:00 Room Air 01/06/20 23:58 100 01/06/20 20:00 97.4 101 16 101/62 (75) 100 01/06/20 20:00 102 01/06/20 20:00 Room Air 01/06/20 18:58 103 20 99 Room Air 21 01/06/20 16:00 Room Air 01/06/20 16:00 96.4 103 19 112/63 (79) 100 01/06/20 15:29 104 Intake and Output 01/06/20 01/07/20 19:00 07:00 Intake Total 950 ml 922 ml Output Total 500 ml 300 ml Balance 450 ml 622 ml Intake IV Total 950 ml 922 ml Output Urine Total 500 ml 300 ml Laboratory Tests Test 01/06/20 16:52 01/06/20 20:11 01/07/20 03:00 01/07/20 04:09 POC Whole Blood Glucose 84 MG/DL (74-106) 75 MG/DL (74-106) Urine Random Sodium 26 mmol/L (20-110) White Blood Count 7.7 K/UL (4.8-10.8) Red Blood Count 3.04 M/UL (4.70-6.10) L Hemoglobin 9.0 G/DL (14.2-18.0) L Hematocrit 29.1 % (42.0-52.0) L Mean Corpuscular Volume 96 FL (80-99) Mean Corpuscular Hemoglobin 29.6 PG (27.0-31.0) Mean Corpuscular Hemoglobin Concent 30.9 G/DL (32.0-36.0) L Red Cell Distribution Width 20.5 % (11.6-14.8) H Platelet Count 192 K/UL (150-450) Mean Platelet Volume 6.3 FL (6.5-10.1) L Neutrophils (%) (Auto) 65.7 % (45.0-75.0) Lymphocytes (%) (Auto) 26.6 % (20.0-45.0) Monocytes (%) (Auto) 6.0 % (1.0-10.0) Eosinophils (%) (Auto) 1.0 % (0.0-3.0) Basophils (%) (Auto) 0.7 % (0.0-2.0) Sodium Level 152 MMOL/L (136-145) H Potassium Level 3.2 MMOL/L (3.5-5.1) L Chloride Level 116 MMOL/L (98-107) H Carbon Dioxide Level 18 MMOL/L (21-32) L Anion Gap 18 mmol/L (5-15) H Blood Urea Nitrogen 48 mg/dL (7-18) H Creatinine 2.8 MG/DL (0.55-1.30) H Estimat Glomerular Filtration Rate 27.3 mL/min (>60) Glucose Level 94 MG/DL (74-106) Uric Acid 27.4 MG/DL (2.6-7.2) H Calcium Level 11.3 MG/DL (8.5-10.1) H Phosphorus Level 3.7 MG/DL (2.5-4.9) Magnesium Level 2.0 MG/DL (1.8-2.4) Total Bilirubin 0.3 MG/DL (0.2-1.0) Aspartate Amino Transf (AST/SGOT) 93 U/L (15-37) H Alanine Aminotransferase (ALT/SGPT) 14 U/L (12-78) Alkaline Phosphatase 56 U/L (46-116) Troponin I 0.009 ng/mL (0.000-0.056) C-Reactive Protein, Quantitative 4.9 mg/dL (0.00-0.90) H Pro-B-Type Natriuretic Peptide 1312 pg/mL (0-125) H Total Protein 6.7 G/DL (6.4-8.2) Albumin 2.6 G/DL (3.4-5.0) L Globulin 4.1 g/dL Albumin/Globulin Ratio 0.6 (1.0-2.7) L Test 01/07/20 06:18 01/07/20 11:36 POC Whole Blood Glucose 97 MG/DL (74-106) 111 MG/DL (74-106) H Height (Feet): 6 Height (Inches): 0.00 Weight (Pounds): 150 Medications Current Medications Medications (Trade) Dose Ordered Sig/Jesse Route PRN Reason Start Time Stop Time Status Last Admin Dose Admin Acetaminophen (Tylenol) 650 mg Q4H PRN ORAL PRNH/TEMP 01/05/20 20:15 02/04/20 20:14 Albuterol/ Ipratropium (Albuterol/ Ipratropium) 3 ml Q4H PRN HHN Shortness of Breath 01/05/20 20:15 01/10/20 20:14 Albuterol/ Ipratropium (Albuterol/ Ipratropium) 3 ml Q6HRT PRN HHN Shortness of Breath 01/06/20 00:45 01/11/20 00:44 Barium Sulfate (Varibar Honey) 250 ml NOW PRN MC RAD 01/06/20 15:30 01/09/20 15:24 Barium Sulfate (Varibar [place]) 240 ml NOW PRN MC RAD 01/06/20 15:30 01/09/20 15:24 Barium Sulfate (Varibar Pudding) 230 ml NOW PRN MC RAD 01/06/20 15:30 01/09/20 15:24 Barium Sulfate (Varibar Thin Liquid powder) 148 gm NOW PRN MC RAD 01/06/20 15:30 01/09/20 15:24 Benztropine Mesylate (Cogentin) 1.5 mg BID ORAL 01/06/20 09:00 02/05/20 08:59 01/07/20 09:08 Bisacodyl (Dulcolax) 10 mg DAILY PRN RECTAL Constipation 01/05/20 20:15 04/04/20 20:14 Ceftriaxone Sodium 1 gm/ Dextrose 55 ml @ 110 mls/hr Q24H IVPB 01/06/20 11:00 01/13/20 10:59 01/07/20 10:21 Clopidogrel Bisulfate (Plavix) 75 mg DAILY ORAL 01/06/20 09:00 02/05/20 08:59 01/07/20 09:08 Dextrose 1,000 ml @ 150 mls/hr Q6H40M IV 01/05/20 19:45 02/04/20 19:44 01/07/20 09:51 Dextrose (Dextrose 50%) 25 ml Q30M PRN IV Hypoglycemia 01/05/20 20:15 04/04/20 20:14 Dextrose (Dextrose 50%) 50 ml Q30M PRN IV Hypoglycemia 01/05/20 20:15 04/04/20 20:14 Docusate Sodium (Colace) 200 mg DAILY ORAL 01/06/20 09:00 02/05/20 08:59 01/06/20 09:30 Heparin Sodium (Porcine) (Heparin 5000 units/ml) 5,000 units Q12HR SUBQ 01/07/20 21:00 02/20/20 08:59 Insulin Aspart (NovoLOG) BEFORE MEALS AND HS SUBQ 01/05/20 21:00 04/04/20 20:59 Magnesium Hydroxide (Mom) 30 ml QHS PRN ORAL Constipation 01/05/20 20:15 02/04/20 20:14 Morphine Sulfate (Morphine Sulfate) 2 mg Q4H PRN IVP For Pain 01/06/20 00:45 01/13/20 00:44 Multivitamins (Multivitamins) 1 tab DAILY ORAL 01/06/20 09:00 02/05/20 08:59 01/07/20 09:08 Pantoprazole (Protonix) 40 mg EVERY 12 HOURS IVP 01/05/20 21:00 02/04/20 20:59 01/07/20 09:08 Potassium Chloride 100 ml @ 100 mls/hr Q1H IVPB 01/07/20 11:30 01/07/20 15:29 01/07/20 11:49 Sennosides (Senokot) 8.6 mg QHS ORAL 01/05/20 21:00 02/04/20 20:59 01/06/20 20:08 Sodium Phosphate (Fleet's Sodium Phosl Enema) 133 ml EVERY OTHER DAY PRN RECTAL Constipation 01/05/20 20:15 02/04/20 20:14 Tamsulosin HCl (Flomax) 0.4 mg BEDTIME ORAL 01/05/20 21:00 02/04/20 20:59 01/06/20 20:09 Assessment/Plan Assessment/Plan: Hematology Consultation RESeema ESQUIVEL: Woody Ríos RFC: Anemia, worsening DOS: 01/07/2020 ID 69-year-old male custodial patient nonverbal at baseline but occasionally responds with incomprehensible sounds and moving his arms, here with altered m ental status. According the nurse at the custodial patient has been completely unresponsive today and was noted to have a heart rate of 130 bpm. Patient unable to participate in review of systems secondary to altered mental status. Patient was noted to have an oxygen saturation of 92% on room air and so was placed on 5 L nasal cannula by paramedics with resolution of his relative hypoxia. Labs reviewed, hgb dowtrending and heme consulted to sue. Allergies: No Known Allergies (Unverified , 03/18/19) COVID Contact w/high risk pt: No Experienced COVID-19 symptoms?: No COVID-19 Testing performed VP CARDIOVASCULAR: Yes COVID-19 Screening: Negative COVID-19 COVID-19 Testing Source: 11/28/19 Hx Cardiac Problems: Yes Hx Hypertension: Yes Hx COPD: Yes Hx Diabetes: Yes Hx Gastrointestinal Problems: Yes Hx Neurological Problems: Yes - paraplegia Hx Dementia: Yes Hx Parkinson's Disease: No - EPS Hx Concentration Difficulty: Yes Hx Weakness: Yes Hx Fatigue: Yes PE: Vitals: reviewed General Appearance: NAD HEENT: normocephalic, atraumatic Neck: non-tender, normal alignment Respiratory/Chest: nromal breath sounds bilaterally Cardiovascular/Chest: normal peripheral pulses, normal rate Abdomen: normal bowel sounds, soft, nontender Extremities: normal range of motion Labs: noted Assessment/Recs # Anemia of chronic disease due to underlying chronic medical issues, multifactorial v Gi bleed --> Anemia workup has been ordered, rule out gi bleed --> No evidence of hemolysis is noted, peripheral smear has been reviewed. --> Hgb goal >7. Transfuse prn. --> Epogen or iron at this time is not particularly indicated --> Medications have been reviewed --> low threshold for gi evaluation in case has occult + --> hgb 10-->9.7-->9.2 # Acute renal failure --> continue on ivfs --> as per renal # Hypokalemia --> replete with K # Severe dehydration --> ivfs ongoing # Hypernatremia indicative of severe water deficit # Severe hyperuricemia, partly due to dehydration and renal failure # Acute metabolic and toxic encephalopathy # Mild, malnutrition # Lactic acid, possible sepsis # Dvt ppx scds The timing of this note does not necessarily reflect the time of the patient was seen. Greatly appreciate consultation. Samuel Son MD Jan 07, 2020 12:16
--- NOTE | 2020-01-07 13:41 | Cardiac Electrophysiology PN ---
Assessment/Plan Assessment/Plan 1. Altered mental status, likely due to severe dehydration in view of sodium of 160 and acute renal failure. The patient is getting IV fluids as well as IV antibiotics.Ruled out for IA 2. History of hypertension. We will hold off on his blood pressure medication at this time. Of note at the care home, the patient was on amlodipine and metoprolol, but has been discontinued in view of relative hypotension. 3. History of CVA, on Plavix. 4. Advanced dementia. 5. Diabetes. 6. Acute renal failure. The patient is being hydrated. Subjective Subjective Nonverbal in NAD. Getting iv fluids In SR 95 Objective Last 24 Hour Vital Signs Date Time Temp Pulse Resp B/P (MAP) Pulse Ox O2 Delivery O2 Flow Rate FiO2 01/07/20 12:00 97.9 96 20 98/60 (73) 100 01/07/20 12:00 95 01/07/20 12:00 Room Air 01/07/20 08:00 93 01/07/20 08:00 Room Air 01/07/20 07:59 97.2 100 20 106/59 (75) 100 01/07/20 04:00 97.6 96 18 115/67 (83) 99 01/07/20 04:00 Room Air 01/07/20 03:53 91 01/07/20 00:00 97.8 89 16 97/53 (68) 100 01/07/20 00:00 Room Air 01/06/20 23:58 100 01/06/20 20:00 97.4 101 16 101/62 (75) 100 01/06/20 20:00 102 01/06/20 20:00 Room Air 01/06/20 18:58 103 20 99 Room Air 21 01/06/20 16:00 Room Air 01/06/20 16:00 96.4 103 19 112/63 (79) 100 01/06/20 15:29 104 Intake and Output 01/06/20 01/07/20 19:00 07:00 Intake Total 950 ml 922 ml Output Total 500 ml 300 ml Balance 450 ml 622 ml Intake IV Total 950 ml 922 ml Output Urine Total 500 ml 300 ml Laboratory Tests Test 01/06/20 16:52 01/06/20 20:11 01/07/20 03:00 01/07/20 04:09 POC Whole Blood Glucose 84 MG/DL (74-106) 75 MG/DL (74-106) Urine Random Sodium 26 mmol/L (20-110) White Blood Count 7.7 K/UL (4.8-10.8) Red Blood Count 3.04 M/UL (4.70-6.10) L Hemoglobin 9.0 G/DL (14.2-18.0) L Hematocrit 29.1 % (42.0-52.0) L Mean Corpuscular Volume 96 FL (80-99) Mean Corpuscular Hemoglobin 29.6 PG (27.0-31.0) Mean Corpuscular Hemoglobin Concent 30.9 G/DL (32.0-36.0) L Red Cell Distribution Width 20.5 % (11.6-14.8) H Platelet Count 192 K/UL (150-450) Mean Platelet Volume 6.3 FL (6.5-10.1) L Neutrophils (%) (Auto) 65.7 % (45.0-75.0) Lymphocytes (%) (Auto) 26.6 % (20.0-45.0) Monocytes (%) (Auto) 6.0 % (1.0-10.0) Eosinophils (%) (Auto) 1.0 % (0.0-3.0) Basophils (%) (Auto) 0.7 % (0.0-2.0) Sodium Level 152 MMOL/L (136-145) H Potassium Level 3.2 MMOL/L (3.5-5.1) L Chloride Level 116 MMOL/L (98-107) H Carbon Dioxide Level 18 MMOL/L (21-32) L Anion Gap 18 mmol/L (5-15) H Blood Urea Nitrogen 48 mg/dL (7-18) H Creatinine 2.8 MG/DL (0.55-1.30) H Estimat Glomerular Filtration Rate 27.3 mL/min (>60) Glucose Level 94 MG/DL (74-106) Uric Acid 27.4 MG/DL (2.6-7.2) H Calcium Level 11.3 MG/DL (8.5-10.1) H Phosphorus Level 3.7 MG/DL (2.5-4.9) Magnesium Level 2.0 MG/DL (1.8-2.4) Total Bilirubin 0.3 MG/DL (0.2-1.0) Aspartate Amino Transf (AST/SGOT) 93 U/L (15-37) H Alanine Aminotransferase (ALT/SGPT) 14 U/L (12-78) Alkaline Phosphatase 56 U/L (46-116) Troponin I 0.009 ng/mL (0.000-0.056) C-Reactive Protein, Quantitative 4.9 mg/dL (0.00-0.90) H Pro-B-Type Natriuretic Peptide 1312 pg/mL (0-125) H Total Protein 6.7 G/DL (6.4-8.2) Albumin 2.6 G/DL (3.4-5.0) L Globulin 4.1 g/dL Albumin/Globulin Ratio 0.6 (1.0-2.7) L Test 01/07/20 06:18 01/07/20 11:36 POC Whole Blood Glucose 97 MG/DL (74-106) 111 MG/DL (74-106) H Microbiology Date/Time Source Procedure Growth Status 01/05/20 17:05 Rectum VRE Culture - Final NO VANCOMYCIN RESISTANT ENTEROCOCCUS ... Complete 01/05/20 15:40 Nasopharynx SARS-CoV-2 RdRp Gene Assay - Final Complete 01/05/20 13:40 Nasal Nares - Final Complete 01/05/20 13:40 Nasal Nares - Final Complete Objective HEAD AND NECK: No JVD. LUNGS: Coarse rhonchi. CARDIOVASCULAR: Regular S1 and S2 with no gallop. ABDOMEN: Soft. EXTREMITIES: No pitting edema. Kevin Lopez MD Jan 07, 2020 13:41
--- NOTE | 2020-01-07 13:58 | Nephrology Progress Note ---
Assessment/Plan Problem List: (1) ARF (acute renal failure) (2) Hypernatremia (3) Hypovolemic shock (4) Altered level of consciousness (5) Hypercalcemia (6) Hyperuricemia Assessment Acute renal failure Possible underlying chronic kidney failure Severe dehydration Hypernatremia indicative of severe water deficit Severe hyperuricemia, partly due to dehydration and renal failure Acute metabolic and toxic encephalopathy Mild, malnutrition Anemia Lactic acid, possible sepsis Hypercalcemia Plan Add allopurinol D5W IV hydration Albumin bolus N.p.o. until able to take p.o. Antibiotics Monitor renal parameters monitor calcium, monitor uric acid Subjective ROS Limited/Unobtainable: Yes Objective Objective Last 24 Hour Vital Signs Date Time Temp Pulse Resp B/P (MAP) Pulse Ox O2 Delivery O2 Flow Rate FiO2 01/07/20 12:00 97.9 96 20 98/60 (73) 100 01/07/20 12:00 95 01/07/20 12:00 Room Air 01/07/20 08:00 93 01/07/20 08:00 Room Air 01/07/20 07:59 97.2 100 20 106/59 (75) 100 01/07/20 04:00 97.6 96 18 115/67 (83) 99 01/07/20 04:00 Room Air 01/07/20 03:53 91 01/07/20 00:00 97.8 89 16 97/53 (68) 100 01/07/20 00:00 Room Air 01/06/20 23:58 100 01/06/20 20:00 97.4 101 16 101/62 (75) 100 01/06/20 20:00 102 01/06/20 20:00 Room Air 01/06/20 18:58 103 20 99 Room Air 21 01/06/20 16:00 Room Air 01/06/20 16:00 96.4 103 19 112/63 (79) 100 01/06/20 15:29 104 Intake and Output 01/06/20 01/07/20 19:00 07:00 Intake Total 950 ml 922 ml Output Total 500 ml 300 ml Balance 450 ml 622 ml Intake IV Total 950 ml 922 ml Output Urine Total 500 ml 300 ml Current Medications Medications (Trade) Dose Ordered Sig/Jesse Route PRN Reason Start Time Stop Time Status Last Admin Dose Admin Acetaminophen (Tylenol) 650 mg Q4H PRN ORAL PRNH/TEMP 01/05/20 20:15 02/04/20 20:14 Albuterol/ Ipratropium (Albuterol/ Ipratropium) 3 ml Q4H PRN HHN Shortness of Breath 01/05/20 20:15 01/10/20 20:14 Albuterol/ Ipratropium (Albuterol/ Ipratropium) 3 ml Q6HRT PRN HHN Shortness of Breath 01/06/20 00:45 01/11/20 00:44 Barium Sulfate (Varibar Honey) 250 ml NOW PRN MC RAD 01/06/20 15:30 01/09/20 15:24 Barium Sulfate (Varibar [place]) 240 ml NOW PRN RAD 01/06/20 15:30 01/09/20 15:24 Barium Sulfate (Varibar Pudding) 230 ml NOW PRN RAD 01/06/20 15:30 01/09/20 15:24 Barium Sulfate (Varibar Thin Liquid powder) 148 gm NOW PRN RAD 01/06/20 15:30 01/09/20 15:24 Benztropine Mesylate (Cogentin) 1.5 mg BID ORAL 01/06/20 09:00 02/05/20 08:59 01/07/20 09:08 Bisacodyl (Dulcolax) 10 mg DAILY PRN RECTAL Constipation 01/05/20 20:15 04/04/20 20:14 Ceftriaxone Sodium 1 gm/ Dextrose 55 ml @ 110 mls/hr Q24H IVPB 01/06/20 11:00 01/13/20 10:59 01/07/20 10:21 Clopidogrel Bisulfate (Plavix) 75 mg DAILY ORAL 01/06/20 09:00 02/05/20 08:59 01/07/20 09:08 Dextrose 1,000 ml @ 150 mls/hr Q6H40M IV 01/05/20 19:45 02/04/20 19:44 01/07/20 09:51 Dextrose (Dextrose 50%) 25 ml Q30M PRN IV Hypoglycemia 01/05/20 20:15 04/04/20 20:14 Dextrose (Dextrose 50%) 50 ml Q30M PRN IV Hypoglycemia 01/05/20 20:15 04/04/20 20:14 Docusate Sodium (Colace) 200 mg DAILY ORAL 01/06/20 09:00 02/05/20 08:59 01/06/20 09:30 Heparin Sodium (Porcine) (Heparin 5000 units/ml) 5,000 units Q12HR SUBQ 01/07/20 21:00 02/20/20 08:59 Insulin Aspart (NovoLOG) BEFORE MEALS AND HS SUBQ 01/05/20 21:00 04/04/20 20:59 Magnesium Hydroxide (Mom) 30 ml QHS PRN ORAL Constipation 01/05/20 20:15 02/04/20 20:14 Morphine Sulfate (Morphine Sulfate) 2 mg Q4H PRN IVP For Pain 01/06/20 00:45 01/13/20 00:44 Multivitamins (Multivitamins) 1 tab DAILY ORAL 01/06/20 09:00 02/05/20 08:59 01/07/20 09:08 Pantoprazole (Protonix) 40 mg EVERY 12 HOURS IVP 01/05/20 21:00 02/04/20 20:59 01/07/20 09:08 Potassium Chloride 100 ml @ 100 mls/hr Q1H IVPB 01/07/20 11:30 01/07/20 15:29 01/07/20 13:06 Sennosides (Senokot) 8.6 mg QHS ORAL 01/05/20 21:00 02/04/20 20:59 01/06/20 20:08 Sodium Phosphate (Fleet's Sodium Phosl Enema) 133 ml EVERY OTHER DAY PRN RECTAL Constipation 01/05/20 20:15 02/04/20 20:14 Tamsulosin HCl (Flomax) 0.4 mg BEDTIME ORAL 01/05/20 21:00 02/04/20 20:59 01/06/20 20:09 Laboratory Tests 01/06/20 16:52: POC Whole Blood Glucose 84 01/06/20 20:11: POC Whole Blood Glucose 75 01/07/20 03:00: Urine Random Sodium 26 01/07/20 04:09: White Blood Count 7.7, Red Blood Count 3.04L, Hemoglobin 9.0L, Hematocrit 29.1L, Mean Corpuscular Volume 96, Mean Corpuscular Hemoglobin 29.6, Mean Corpuscular Hemoglobin Concent 30.9L, Red Cell Distribution Width 20.5H, Platelet Count 192, Mean Platelet Volume 6.3L, Neutrophils (%) (Auto) 65.7, Lymphocytes (%) (Auto) 26.6, Monocytes (%) (Auto) 6.0, Eosinophils (%) (Auto) 1.0, Basophils (%) (Auto) 0.7, Sodium Level 152H, Potassium Level 3.2L, Chloride Level 116H, Carbon Dioxide Level 18L, Anion Gap 18H, Blood Urea Nitrogen 48H, Creatinine 2.8H, Estimat Glomerular Filtration Rate 27.3, Glucose Level 94, Uric Acid 27.4H, Calcium Level 11.3H, Phosphorus Level 3.7, Magnesium Level 2.0, Total Bilirubin 0.3, Aspartate Amino Transf (AST/SGOT) 93H, Alanine Aminotransferase (ALT/SGPT) 14, Alkaline Phosphatase 56, Troponin I 0.009, C-Reactive Protein, Quantitative 4.9H, Pro-B-Type Natriuretic Peptide 1312H, Total Protein 6.7, Albumin 2.6L, Globulin 4.1, Albumin/Globulin Ratio 0.6L 01/07/20 06:18: POC Whole Blood Glucose 97 01/07/20 11:36: POC Whole Blood Glucose 111H Height (Feet): 6 Height (Inches): 0.00 Weight (Pounds): 150 General Appearance: no apparent distress, lethargic Cardiovascular: tachycardia Respiratory/Chest: decreased breath sounds Abdomen: soft Dhiraj Biswas MD Jan 07, 2020 13:58
--- NOTE | 2020-01-07 14:23 | Consultation ---
History of Present Illness General Date patient seen: Jan 07, 2020 Chief Complaint: Altered Level of Consciousness Present Illness HPI 69 y/o M with hx of HTN, COPD, DM2, paraplegia, Dementia, non verbal [place] resident (elan mora) presented to ED on 01/05/20 with altered mental status and tachycardic to 130s Allergies: Coded Allergies: No Known Allergies (Unverified , 03/18/19) Medication History Scheduled Amlodipine Besylate (Norvasc), 5 MG ORAL DAILY, (Reported) Benztropine Mesylate* (Cogentin*), 1.5 MG PO BID, (Reported) Clopidogrel Bisulfate* (Plavix*), 75 MG ORAL DAILY, (Reported) Cranberry Fruit (Cranberry), 450 MG PO TWICE A DAY, (Reported) Docusate Sodium* (Colace*), 200 MG ORAL DAILY, (Reported) Insulin Lispro (Humalog), 0 SUBQ BID AC, (Reported) Metformin Hcl* (Metformin Hcl*), 500 MG ORAL BID WITH MEALS, (Reported) Multivitamins* (Multivitamins*), 1 TAB ORAL DAILY, (Reported) Sennosides (Senna), 17.2 MG ORAL QHS, (Reported) Tamsulosin HCl (Flomax), 0.4 MG ORAL BEDTIME, (Reported) Scheduled PRN Acetaminophen* (Acetaminophen 325MG Tablet*), 650 MG ORAL Q4H PRN for Mild Pain (Pain Scale 1-3), (Reported) Acetaminophen* (Acetaminophen 325MG Tablet*), 650 MG ORAL Q4H PRN for Prn Headache/Temp > 101, (Reported) Bisacodyl (Dulcolax), 10 MG RC DAILY PRN for Constipation, (Reported) Ipratropium/Albuterol Sulfate (DuoNeb 0.5-3(2.5)mg/3ml), 3 ML HHN Q4HR PRN for Shortness of Breath, (Reported) Magnesium Hydroxide* (Milk Of Magnesia*), 30 ML ORAL QHS PRN for Constipation, (Reported) Na Phos,M-B/Na Phos,Di-Ba (Fleet Enema), 133 ML RC EVERY OTHER DAY PRN for Constipation, (Reported) Patient History Healthcare decision maker Resuscitation status Advanced Directive on File Patient History Narrative Pmhx: as above Shx: He is a halfway resident. Does not smoke or drink alcohol. Fhx: non contributory Review of Systems All Other Systems: negative except mentioned in HPI Physical Exam Physical Exam Narrative GENERAL: Calm in bed, confused, not answering questions. CARDIOVASCULAR: No murmur. LUNGS: Poor exchange. ABDOMEN: Bowel sounds distant. EXTREMITIES: No cyanosis or edema. NEUROLOGIC: The patient moves all extremities, slightly weak. Last 24 Hour Vital Signs Date Time Temp Pulse Resp B/P (MAP) Pulse Ox O2 Delivery O2 Flow Rate FiO2 01/07/20 12:00 97.9 96 20 98/60 (73) 100 01/07/20 12:00 95 01/07/20 12:00 Room Air 01/07/20 08:00 93 01/07/20 08:00 Room Air 01/07/20 07:59 97.2 100 20 106/59 (75) 100 01/07/20 04:00 97.6 96 18 115/67 (83) 99 01/07/20 04:00 Room Air 01/07/20 03:53 91 01/07/20 00:00 97.8 89 16 97/53 (68) 100 01/07/20 00:00 Room Air 01/06/20 23:58 100 01/06/20 20:00 97.4 101 16 101/62 (75) 100 01/06/20 20:00 102 01/06/20 20:00 Room Air 01/06/20 18:58 103 20 99 Room Air 21 01/06/20 16:00 Room Air 01/06/20 16:00 96.4 103 19 112/63 (79) 100 01/06/20 15:29 104 Intake and Output 01/06/20 01/07/20 19:00 07:00 Intake Total 950 ml 922 ml Output Total 500 ml 300 ml Balance 450 ml 622 ml Intake IV Total 950 ml 922 ml Output Urine Total 500 ml 300 ml Laboratory Tests Test 01/06/20 16:52 01/06/20 20:11 01/07/20 03:00 01/07/20 04:09 POC Whole Blood Glucose 84 MG/DL (74-106) 75 MG/DL (74-106) Urine Random Sodium 26 mmol/L (20-110) White Blood Count 7.7 K/UL (4.8-10.8) Red Blood Count 3.04 M/UL (4.70-6.10) L Hemoglobin 9.0 G/DL (14.2-18.0) L Hematocrit 29.1 % (42.0-52.0) L Mean Corpuscular Volume 96 FL (80-99) Mean Corpuscular Hemoglobin 29.6 PG (27.0-31.0) Mean Corpuscular Hemoglobin Concent 30.9 G/DL (32.0-36.0) L Red Cell Distribution Width 20.5 % (11.6-14.8) H Platelet Count 192 K/UL (150-450) Mean Platelet Volume 6.3 FL (6.5-10.1) L Neutrophils (%) (Auto) 65.7 % (45.0-75.0) Lymphocytes (%) (Auto) 26.6 % (20.0-45.0) Monocytes (%) (Auto) 6.0 % (1.0-10.0) Eosinophils (%) (Auto) 1.0 % (0.0-3.0) Basophils (%) (Auto) 0.7 % (0.0-2.0) Sodium Level 152 MMOL/L (136-145) H Potassium Level 3.2 MMOL/L (3.5-5.1) L Chloride Level 116 MMOL/L (98-107) H Carbon Dioxide Level 18 MMOL/L (21-32) L Anion Gap 18 mmol/L (5-15) H Blood Urea Nitrogen 48 mg/dL (7-18) H Creatinine 2.8 MG/DL (0.55-1.30) H Estimat Glomerular Filtration Rate 27.3 mL/min (>60) Glucose Level 94 MG/DL (74-106) Uric Acid 27.4 MG/DL (2.6-7.2) H Calcium Level 11.3 MG/DL (8.5-10.1) H Phosphorus Level 3.7 MG/DL (2.5-4.9) Magnesium Level 2.0 MG/DL (1.8-2.4) Total Bilirubin 0.3 MG/DL (0.2-1.0) Aspartate Amino Transf (AST/SGOT) 93 U/L (15-37) H Alanine Aminotransferase (ALT/SGPT) 14 U/L (12-78) Alkaline Phosphatase 56 U/L (46-116) Troponin I 0.009 ng/mL (0.000-0.056) C-Reactive Protein, Quantitative 4.9 mg/dL (0.00-0.90) H Pro-B-Type Natriuretic Peptide 1312 pg/mL (0-125) H Total Protein 6.7 G/DL (6.4-8.2) Albumin 2.6 G/DL (3.4-5.0) L Globulin 4.1 g/dL Albumin/Globulin Ratio 0.6 (1.0-2.7) L Test 01/07/20 06:18 01/07/20 11:36 POC Whole Blood Glucose 97 MG/DL (74-106) 111 MG/DL (74-106) H Height (Feet): 6 Height (Inches): 0.00 Weight (Pounds): 150 Medications Current Medications Medications (Trade) Dose Ordered Sig/Jesse Route PRN Reason Start Time Stop Time Status Last Admin Dose Admin Acetaminophen (Tylenol) 650 mg Q4H PRN ORAL PRNH/TEMP 01/05/20 20:15 02/04/20 20:14 Albumin Human 500 ml @ 0 mls/hr Q0M ONCE IV 01/07/20 15:00 01/07/20 15:01 Albuterol/ Ipratropium (Albuterol/ Ipratropium) 3 ml Q4H PRN HHN Shortness of Breath 01/05/20 20:15 01/10/20 20:14 Albuterol/ Ipratropium (Albuterol/ Ipratropium) 3 ml Q6HRT PRN HHN Shortness of Breath 01/06/20 00:45 01/11/20 00:44 Barium Sulfate (Varibar Honey) 250 ml NOW PRN MC RAD 01/06/20 15:30 01/09/20 15:24 Barium Sulfate (Varibar [place]) 240 ml NOW PRN MC RAD 01/06/20 15:30 01/09/20 15:24 Barium Sulfate (Varibar Pudding) 230 ml NOW PRN MC RAD 01/06/20 15:30 01/09/20 15:24 Barium Sulfate (Varibar Thin Liquid powder) 148 gm NOW PRN MC RAD 01/06/20 15:30 01/09/20 15:24 Benztropine Mesylate (Cogentin) 1.5 mg BID ORAL 01/06/20 09:00 02/05/20 08:59 01/07/20 09:08 Bisacodyl (Dulcolax) 10 mg DAILY PRN RECTAL Constipation 01/05/20 20:15 04/04/20 20:14 Ceftriaxone Sodium 1 gm/ Dextrose 55 ml @ 110 mls/hr Q24H IVPB 01/06/20 11:00 01/13/20 10:59 01/07/20 10:21 Clopidogrel Bisulfate (Plavix) 75 mg DAILY ORAL 01/06/20 09:00 02/05/20 08:59 01/07/20 09:08 Dextrose 1,000 ml @ 150 mls/hr Q6H40M IV 01/05/20 19:45 02/04/20 19:44 01/07/20 09:51 Dextrose (Dextrose 50%) 25 ml Q30M PRN IV Hypoglycemia 01/05/20 20:15 04/04/20 20:14 Dextrose (Dextrose 50%) 50 ml Q30M PRN IV Hypoglycemia 01/05/20 20:15 04/04/20 20:14 Docusate Sodium (Colace) 200 mg DAILY ORAL 01/06/20 09:00 02/05/20 08:59 01/06/20 09:30 Heparin Sodium (Porcine) (Heparin 5000 units/ml) 5,000 units Q12HR SUBQ 01/07/20 21:00 02/20/20 08:59 Insulin Aspart (NovoLOG) BEFORE MEALS AND HS SUBQ 01/05/20 21:00 04/04/20 20:59 Magnesium Hydroxide (Mom) 30 ml QHS PRN ORAL Constipation 01/05/20 20:15 02/04/20 20:14 Morphine Sulfate (Morphine Sulfate) 2 mg Q4H PRN IVP For Pain 01/06/20 00:45 01/13/20 00:44 Multivitamins (Multivitamins) 1 tab DAILY ORAL 01/06/20 09:00 02/05/20 08:59 01/07/20 09:08 Pantoprazole (Protonix) 40 mg EVERY 12 HOURS IVP 01/05/20 21:00 02/04/20 20:59 01/07/20 09:08 Potassium Chloride 100 ml @ 100 mls/hr Q1H IVPB 01/07/20 11:30 01/07/20 15:29 01/07/20 13:06 Sennosides (Senokot) 8.6 mg QHS ORAL 01/05/20 21:00 02/04/20 20:59 01/06/20 20:08 Sodium Phosphate (Fleet's Sodium Phosl Enema) 133 ml EVERY OTHER DAY PRN RECTAL Constipation 01/05/20 20:15 02/04/20 20:14 Tamsulosin HCl (Flomax) 0.4 mg BEDTIME ORAL 01/05/20 21:00 02/04/20 20:59 01/06/20 20:09 Assessment/Plan Assessment/Plan: Abx: IV Vancomycin x1 01/04 Cefepime x1 01/04 Ceftriaxone 01/05- Assessment: COVID19 neg -01/04 rapid COVID PCR neg x1 influenza PCR neg CXR: Mild interstitial vascular prominence. No focal infiltrate or consolidation. Afebrile No leukocytosis -u/a neg Tachycardia, SP-2 ry to severe dehydration- no evidence of infection AVIS, improving Hyponatremia, improving Acute on chronic encephalopathy -CT head: 1. Markedly limited, near nondiagnostic evaluation due to motion artifact. Grossly, age-related changes and small vessel disease of aging are noted. Again grossly, no acute intracranial pathology is detected. If there is a high degree of concern or if there is concern for subtle abnormalities, magnetic resonance imaging of the brain with diffusion-weighted sequences should be performed, due to the markedly limited nature of the current study. Close clinical correlation is necessary. HTN COPD DM2 paraplegia Dementia non verbal NH resident (elan mora) Plan: -Dc Empiric Ceftriaxone #2 (abx d #3) and monitor off abx -f/u cx -Monitor CBC/CMP, temperatures -Renal, cards f/u Thank you for consulting [facility]. Will continue to follow along with you. Discussed with Clara Goodson M.D. Jan 07, 2020 14:23
[2020-01-07 15:17] VITALS: BP 109/61
--- NOTE | 2020-01-07 18:44 | Psychiatric Progress Note ---
Psychiatry Progress Note Psychiatry Progress Note Medications Current Medications Medications (Trade) Dose Ordered Sig/Jesse Route PRN Reason Start Time Stop Time Status Last Admin Dose Admin Acetaminophen (Tylenol) 650 mg Q4H PRN ORAL PRNH/TEMP 01/05/20 20:15 02/04/20 20:14 Albuterol/ Ipratropium (Albuterol/ Ipratropium) 3 ml Q4H PRN HHN Shortness of Breath 01/05/20 20:15 01/10/20 20:14 Albuterol/ Ipratropium (Albuterol/ Ipratropium) 3 ml Q6HRT PRN HHN Shortness of Breath 01/06/20 00:45 01/11/20 00:44 Allopurinol (allopurinoL) 300 mg DAILY ORAL 01/07/20 14:15 02/06/20 14:14 01/07/20 14:37 Barium Sulfate (Varibar Honey) 250 ml NOW PRN MC RAD 01/06/20 15:30 01/09/20 15:24 Barium Sulfate (Varibar [place]) 240 ml NOW PRN MC RAD 01/06/20 15:30 01/09/20 15:24 Barium Sulfate (Varibar Pudding) 230 ml NOW PRN MC RAD 01/06/20 15:30 01/09/20 15:24 Barium Sulfate (Varibar Thin Liquid powder) 148 gm NOW PRN MC RAD 01/06/20 15:30 01/09/20 15:24 Benztropine Mesylate (Cogentin) 1.5 mg BID ORAL 01/06/20 09:00 02/05/20 08:59 01/07/20 17:14 Bisacodyl (Dulcolax) 10 mg DAILY PRN RECTAL Constipation 01/05/20 20:15 04/04/20 20:14 Clopidogrel Bisulfate (Plavix) 75 mg DAILY ORAL 01/06/20 09:00 02/05/20 08:59 01/07/20 09:08 Dextrose 1,000 ml @ 150 mls/hr Q6H40M IV 01/05/20 19:45 02/04/20 19:44 01/07/20 09:51 Dextrose (Dextrose 50%) 25 ml Q30M PRN IV Hypoglycemia 01/05/20 20:15 04/04/20 20:14 Dextrose (Dextrose 50%) 50 ml Q30M PRN IV Hypoglycemia 01/05/20 20:15 04/04/20 20:14 Docusate Sodium (Colace) 200 mg DAILY ORAL 01/06/20 09:00 02/05/20 08:59 01/06/20 09:30 Heparin Sodium (Porcine) (Heparin 5000 units/ml) 5,000 units Q12HR SUBQ 01/07/20 21:00 02/20/20 08:59 Insulin Aspart (NovoLOG) BEFORE MEALS AND HS SUBQ 01/05/20 21:00 04/04/20 20:59 Magnesium Hydroxide (Mom) 30 ml QHS PRN ORAL Constipation 01/05/20 20:15 02/04/20 20:14 Morphine Sulfate (Morphine Sulfate) 2 mg Q4H PRN IVP For Pain 01/06/20 00:45 01/13/20 00:44 Multivitamins (Multivitamins) 1 tab DAILY ORAL 01/06/20 09:00 02/05/20 08:59 01/07/20 09:08 Pantoprazole (Protonix) 40 mg EVERY 12 HOURS IVP 01/05/20 21:00 02/04/20 20:59 01/07/20 09:08 Sennosides (Senokot) 8.6 mg QHS ORAL 01/05/20 21:00 02/04/20 20:59 01/06/20 20:08 Sodium Phosphate (Fleet's Sodium Phosl Enema) 133 ml EVERY OTHER DAY PRN RECTAL Constipation 01/05/20 20:15 02/04/20 20:14 Tamsulosin HCl (Flomax) 0.4 mg BEDTIME ORAL 01/05/20 21:00 02/04/20 20:59 01/06/20 20:09 Allergies: Coded Allergies: No Known Allergies (Unverified , 03/18/19) Objective Data Height (Feet): 6 Height (Inches): 0.00 Weight (Pounds): 150 General Appearance: no apparent distress, lethargic Assessment/Plan Status: unchanged Assessment/Plan: ASSESSMENT: [place] I Dementia. Dementia with behavior disturbance. [place] II Deferred. [place] III Failure to thrive. [place] IV Low. [place] V 20. PLAN: 1. Remeron 15 mg at bedtime to stimulate his appetite. 2. Discussed with the nurse. Toney Bernstein MD Jan 07, 2020 18:44
[2020-01-07 20:00] VITALS: BP 104/66
[2020-01-07] MEDS: Tamsulosin 0.4mg cap ORAL SCH (20:51)
[2020-01-07] MEDS: Sennosides 8.6mg tab ORAL SCH (20:51)
--- NOTE | 2020-01-07 23:00 | Consultation ---
DATE OF CONSULTATION: 01/07/2020 NOTE: INCOMPLETE DICTATION CONSULTING PHYSICIAN: Toney Bernstein MD HISTORY OF PRESENT ILLNESS: This is a 69-year-old male with a history of multiple medical issues including hypertension, diabetes, weakness, paraplegia, and renal failure. The patient presented with episodes of agitation. Toney Bernstein M.D. DR: BRANT JOB#: [id number] CC:
--- NOTE | 2020-01-07 23:15 | Consultation ---
DATE OF CONSULTATION: 01/07/2020 CONSULTING PHYSICIAN: Toney Bernstein MD HISTORY OF PRESENT ILLNESS: This is a 69-year-old male with a history of multiple medical issues including diabetes, hypertension, weakness, paraplegia, renal failure presented with waxing and waning consciousness, memory impairment, episodes of agitation, attempting to pull out his lines. PAST PSYCHIATRIC HISTORY: Dementia. PAST MEDICAL HISTORY: Diabetes, hypertension, weakness, paraplegia, renal failure. ALLERGIES: No known drug allergies. SUBSTANCE ABUSE HISTORY: No known history of illicit drug use or alcohol. MENTAL STATUS EXAMINATION: Patient is awake, disoriented. Mood is anxious with agitation. Affect is blunted, congruent with mood. Thought process, there is a paucity of thought content. Thought content, no suicidal or homicidal ideation. Cognition is impaired. Insight and judgment is impaired. ASSESSMENT: [place] I Dementia. Dementia with behavior disturbance. [place] II Deferred. [place] III Failure to thrive. [place] IV Low. [place] V 20. PLAN: 1. Remeron 15 mg at bedtime to stimulate his appetite. 2. Discussed with the nurse. Toney Bernstein M.D. DR: BRANT JOB#: [id number] CC:
[2020-01-08] VITALS: BP 93/82
[2020-01-08 04:00] VITALS: BP 104/66
[2020-01-08] MEDS: NovoLOG Insulin Flexpen SUBQ SCH ×4 (05:38→20:34)
[2020-01-08 05:40] LABS: BASOPHILS % (AUTO) 0.7 % (0.0-2.0); EOSINOPHILS % (AUTO) 0.3 % (0.0-3.0); HEMATOCRIT 33.1 % (42.0-52.0); HEMOGLOBIN 10.1 G/DL (14.2-18.0); LYMPHOCYTES % (AUTO) 26.1 % (20.0-45.0); MEAN CORPUSCULAR VOLUME 98 FL (80-99); MONOCYTES % (AUTO) 5.3 % (1.0-10.0); NEUTROPHILS % (AUTO) 67.6 % (45.0-75.0); PLATELET COUNT 161 K/UL (150-450); RED BLOOD COUNT 3.38 M/UL (4.70-6.10); RED CELL DISTRIBUTION WIDTH 19.6 % (11.6-14.8); WHITE BLOOD COUNT 5.3 K/UL (4.8-10.8)
--- NOTE | 2020-01-08 06:38 | Hematology/Onc Progress Note ---
Assessment/Plan Assessment/Plan Assessment/Recs # Anemia of chronic disease due to underlying chronic medical issues, multifactorial v Gi bleed --> Anemia workup has been ordered, rule out gi bleed --> No evidence of hemolysis is noted, peripheral smear has been reviewed. --> Hgb goal >7. Transfuse prn. --> Epogen or iron at this time is not particularly indicated --> Medications have been reviewed --> low threshold for gi evaluation in case has occult + --> hgb 10-->9.7-->9.2->10 # Acute renal failure --> continue on ivfs --> as per renal # Hypokalemia --> replete with K # Severe dehydration --> ivfs ongoing # Hypernatremia indicative of severe water deficit # Severe hyperuricemia, partly due to dehydration and renal failure # Acute metabolic and toxic encephalopathy # Mild, malnutrition # Psych issues per psych # Lactic acid, possible sepsis # Dvt ppx scds The timing of this note does not necessarily reflect the time of the patient was seen. Greatly appreciate consultation. Subjective HEENT: Denies: no symptoms, eye pain, blurred vision, tearing, double vision, ear pain, ear discharge, nose pain, nose congestion, throat pain, throat swelling, mouth pain, mouth swelling, other Cardiovascular: Denies: no symptoms, chest pain, edema, irregular heart rate, lightheadedness, palpitations, syncope, other Respiratory: Denies: no symptoms, cough, shortness of breath, SOB with excertion, SOB at rest, sputum, wheezing, other Gastrointestinal/Abdominal: Denies: no symptoms, abdomen distended, abdominal pain, black stools, tarry stools, blood in stool, constipated, diarrhea, difficulty swallowing, nausea, poor appetite, poor fluid intake, rectal bleeding, vomiting, other Genitourinary: Denies: no symptoms, burning, discharge, frequency, flank pain, hematuria, incontinence, pain, urgency, other Neurologic/Psychiatric: Denies: no symptoms, anxiety, depressed, emotional problems, headache, numbness, paresthesia, pre-existing deficit, seizure, tingling, tremors, weakness, other Endocrine: Denies: no symptoms, excessive sweating, flushing, intolerance to cold, intolerance to heat, increased hunger, increased thirst, increased urine, unexplained weight gain, unexplained weight loss, other Allergies: Coded Allergies: No Known Allergies (Unverified , 03/18/19) Subjective 01/07 meds noted, no bleeding, hgb 10, no hemolysis, hgb 10.1 Objective Objective Current Medications Medications (Trade) Dose Ordered Sig/Jesse Route PRN Reason Start Time Stop Time Status Last Admin Dose Admin Acetaminophen (Tylenol) 650 mg Q4H PRN ORAL PRNH/TEMP 01/05/20 20:15 02/04/20 20:14 Albuterol/ Ipratropium (Albuterol/ Ipratropium) 3 ml Q4H PRN HHN Shortness of Breath 01/05/20 20:15 01/10/20 20:14 Albuterol/ Ipratropium (Albuterol/ Ipratropium) 3 ml Q6HRT PRN HHN Shortness of Breath 01/06/20 00:45 01/11/20 00:44 Allopurinol (allopurinoL) 300 mg DAILY ORAL 01/07/20 14:15 02/06/20 14:14 01/07/20 14:37 Barium Sulfate (Varibar Honey) 250 ml NOW PRN RAD 01/06/20 15:30 01/09/20 15:24 Barium Sulfate (Varibar [place]) 240 ml NOW PRN RAD 01/06/20 15:30 01/09/20 15:24 Barium Sulfate (Varibar Pudding) 230 ml NOW PRN RAD 01/06/20 15:30 01/09/20 15:24 Barium Sulfate (Varibar Thin Liquid powder) 148 gm NOW PRN RAD 01/06/20 15:30 01/09/20 15:24 Benztropine Mesylate (Cogentin) 1.5 mg BID ORAL 01/06/20 09:00 02/05/20 08:59 01/07/20 17:14 Bisacodyl (Dulcolax) 10 mg DAILY PRN RECTAL Constipation 01/05/20 20:15 04/04/20 20:14 Clopidogrel Bisulfate (Plavix) 75 mg DAILY ORAL 01/06/20 09:00 02/05/20 08:59 01/07/20 09:08 Dextrose 1,000 ml @ 150 mls/hr Q6H40M IV 01/05/20 19:45 02/04/20 19:44 01/08/20 04:43 Dextrose (Dextrose 50%) 25 ml Q30M PRN IV Hypoglycemia 01/05/20 20:15 04/04/20 20:14 Dextrose (Dextrose 50%) 50 ml Q30M PRN IV Hypoglycemia 01/05/20 20:15 04/04/20 20:14 Docusate Sodium (Colace) 200 mg DAILY ORAL 01/06/20 09:00 02/05/20 08:59 01/06/20 09:30 Heparin Sodium (Porcine) (Heparin 5000 units/ml) 5,000 units Q12HR SUBQ 01/07/20 21:00 02/20/20 08:59 01/07/20 21:03 Insulin Aspart (NovoLOG) BEFORE MEALS AND HS SUBQ 01/05/20 21:00 04/04/20 20:59 Magnesium Hydroxide (Mom) 30 ml QHS PRN ORAL Constipation 01/05/20 20:15 02/04/20 20:14 Mirtazapine (Remeron) 15 mg BEDTIME ORAL 01/08/20 21:00 04/07/20 20:59 Morphine Sulfate (Morphine Sulfate) 2 mg Q4H PRN IVP For Pain 01/06/20 00:45 01/13/20 00:44 Multivitamins (Multivitamins) 1 tab DAILY ORAL 01/06/20 09:00 02/05/20 08:59 01/07/20 09:08 Pantoprazole (Protonix) 40 mg EVERY 12 HOURS IVP 01/05/20 21:00 02/04/20 20:59 01/07/20 20:51 Sennosides (Senokot) 8.6 mg QHS ORAL 01/05/20 21:00 02/04/20 20:59 01/07/20 20:51 Sodium Phosphate (Fleet's Sodium Phosl Enema) 133 ml EVERY OTHER DAY PRN RECTAL Constipation 01/05/20 20:15 02/04/20 20:14 Tamsulosin HCl (Flomax) 0.4 mg BEDTIME ORAL 01/05/20 21:00 02/04/20 20:59 01/07/20 20:51 Last 24 Hour Vital Signs Date Time Temp Pulse Resp B/P (MAP) Pulse Ox O2 Delivery O2 Flow Rate FiO2 01/08/20 04:00 94 01/08/20 04:00 97.7 17 104/66 (79) 100 01/08/20 04:00 Room Air 01/08/20 00:00 97.7 91 19 93/82 (86) 100 01/08/20 00:00 Room Air 01/07/20 23:23 96 01/07/20 20:00 Room Air 01/07/20 20:00 97.9 98 20 104/66 (79) 100 01/07/20 19:48 98 20 97 Room Air 21 01/07/20 19:14 97 01/07/20 16:00 Room Air 01/07/20 16:00 102 01/07/20 15:17 97.5 102 18 109/61 (77) 100 01/07/20 12:00 97.9 96 20 98/60 (73) 100 01/07/20 12:00 95 01/07/20 12:00 Room Air 01/07/20 08:00 93 01/07/20 08:00 Room Air 01/07/20 07:59 97.2 100 20 106/59 (75) 100 01/07/20 04:00 97.6 96 18 115/67 (83) 99 01/07/20 04:00 Room Air 01/07/20 03:53 91 01/07/20 00:00 97.8 89 16 97/53 (68) 100 01/07/20 00:00 Room Air 01/06/20 23:58 100 01/06/20 20:00 97.4 101 16 101/62 (75) 100 01/06/20 20:00 102 01/06/20 20:00 Room Air 01/06/20 18:58 103 20 99 Room Air 21 01/06/20 16:00 Room Air 01/06/20 16:00 96.4 103 19 112/63 (79) 100 01/06/20 15:29 104 01/06/20 12:00 96.6 108 19 100/62 (75) 100 01/06/20 12:00 Room Air 01/06/20 11:59 107 01/06/20 08:00 96.3 109 18 107/68 (81) 100 01/06/20 08:00 Room Air 01/06/20 07:39 108 Intake and Output 01/07/20 01/08/20 19:00 07:00 Intake Total 500 ml 1521 ml Output Total 300 ml 400 ml Balance 200 ml 1121 ml Intake Oral 25 ml IV Total 500 ml 1496 ml Output Urine Total 300 ml 400 ml Labs Test 01/05/20 13:50 01/05/20 15:40 01/05/20 17:05 01/05/20 19:37 Urine Color Yellow Urine Appearance Clear Urine pH 5 (4.5-8.0) Urine Specific [place] 1.025 (1.005-1.035) Urine Protein 2+ (NEGATIVE) Urine Glucose (UA) Negative (NEGATIVE) Urine Ketones 1+ (NEGATIVE) Urine Blood Negative (NEGATIVE) Urine Nitrite Negative (NEGATIVE) Urine Bilirubin Negative (NEGATIVE) Urine Urobilinogen Normal MG/DL (0.0-1.0) Urine Leukocyte Esterase Negative (NEGATIVE) Urine RBC 0-2 /HPF (0 - 0) Urine WBC 0-2 /HPF (0 - 0) Urine Squamous Epithelial Cells Occasional /LPF Urine Bacteria Few /HPF (NONE) White Blood Count 10.0 K/UL (4.8-10.8) Red Blood Count 3.49 M/UL (4.70-6.10) Hemoglobin 10.2 G/DL (14.2-18.0) Hematocrit 32.6 % (42.0-52.0) Mean Corpuscular Volume 93 FL (80-99) Mean Corpuscular Hemoglobin 29.2 PG (27.0-31.0) Mean Corpuscular Hemoglobin Concent 31.2 G/DL (32.0-36.0) Red Cell Distribution Width 19.8 % (11.6-14.8) Platelet Count 236 K/UL (150-450) Mean Platelet Volume 6.6 FL (6.5-10.1) Neutrophils (%) (Auto) 70.4 % (45.0-75.0) Lymphocytes (%) (Auto) 21.5 % (20.0-45.0) Monocytes (%) (Auto) 7.1 % (1.0-10.0) Eosinophils (%) (Auto) 0.2 % (0.0-3.0) Basophils (%) (Auto) 0.7 % (0.0-2.0) Sodium Level 163 MMOL/L (136-145) Potassium Level 3.8 MMOL/L (3.5-5.1) Chloride Level 124 MMOL/L (98-107) Carbon Dioxide Level 19 MMOL/L (21-32) Anion Gap 20 mmol/L (5-15) Blood Urea Nitrogen 53 mg/dL (7-18) Creatinine 3.1 MG/DL (0.55-1.30) Estimat Glomerular Filtration Rate 24.2 mL/min (>60) Glucose Level 146 MG/DL (74-106) Lactic Acid Level 4.50 mmol/L (0.4-2.0) 3.80 mmol/L (0.66-2.22) Calcium Level 12.5 MG/DL (8.5-10.1) Magnesium Level 2.4 MG/DL (1.8-2.4) Total Bilirubin 0.4 MG/DL (0.2-1.0) Aspartate Amino Transf (AST/SGOT) 79 U/L (15-37) Alanine Aminotransferase (ALT/SGPT) 15 U/L (12-78) Alkaline Phosphatase 64 U/L (46-116) Total Creatine Kinase 79 U/L (26-308) Creatine Kinase MB < 0.5 NG/ML (0.0-3.6) Creatine Kinase MB Relative Index 0.6 Troponin I 0.019 ng/mL (0.000-0.056) Total Protein 7.6 G/DL (6.4-8.2) Albumin 3.1 G/DL (3.4-5.0) Globulin 4.5 g/dL Albumin/Globulin Ratio 0.7 (1.0-2.7) POC Whole Blood Glucose 110 MG/DL (74-106) Test 01/06/20 05:09 01/06/20 06:25 01/06/20 08:50 01/06/20 11:35 POC Whole Blood Glucose 111 MG/DL (74-106) 93 MG/DL (74-106) White Blood Count 8.3 K/UL (4.8-10.8) Red Blood Count 3.26 M/UL (4.70-6.10) Hemoglobin 9.7 G/DL (14.2-18.0) Hematocrit 31.4 % (42.0-52.0) Mean Corpuscular Volume 96 FL (80-99) Mean Corpuscular Hemoglobin 29.8 PG (27.0-31.0) Mean Corpuscular Hemoglobin Concent 30.9 G/DL (32.0-36.0) Red Cell Distribution Width 19.9 % (11.6-14.8) Platelet Count 198 K/UL (150-450) Mean Platelet Volume 6.4 FL (6.5-10.1) Neutrophils (%) (Auto) 70.5 % (45.0-75.0) Lymphocytes (%) (Auto) 20.4 % (20.0-45.0) Monocytes (%) (Auto) 7.5 % (1.0-10.0) Eosinophils (%) (Auto) 0.7 % (0.0-3.0) Basophils (%) (Auto) 0.9 % (0.0-2.0) Sodium Level 161 MMOL/L (136-145) Potassium Level 3.3 MMOL/L (3.5-5.1) Chloride Level 125 MMOL/L (98-107) Carbon Dioxide Level 22 MMOL/L (21-32) Anion Gap 14 mmol/L (5-15) Blood Urea Nitrogen 48 mg/dL (7-18) Creatinine 2.8 MG/DL (0.55-1.30) Estimat Glomerular Filtration Rate 27.3 mL/min (>60) Glucose Level 113 MG/DL (74-106) Hemoglobin A1c 5.6 % (4.3-6.0) Lactic Acid Level 2.70 mmol/L (0.4-2.0) 2.70 mmol/L (0.66-2.22) Uric Acid 29.3 MG/DL (2.6-7.2) Calcium Level 11.5 MG/DL (8.5-10.1) Phosphorus Level 3.4 MG/DL (2.5-4.9) Magnesium Level 2.2 MG/DL (1.8-2.4) Iron Level 114 ug/dL (50-175) Total Iron Binding Capacity 216 ug/dL (250-450) Percent Iron Saturation 53 % (15-50) Unsaturated Iron Binding 102 ug/dL (112-346) Ferritin 955 NG/ML (8-388) Total Bilirubin 0.3 MG/DL (0.2-1.0) Gamma Glutamyl Transpeptidase 43 U/L (5-85) Aspartate Amino Transf (AST/SGOT) 79 U/L (15-37) Alanine Aminotransferase (ALT/SGPT) 14 U/L (12-78) Alkaline Phosphatase 55 U/L (46-116) Lactate Dehydrogenase 415 U/L (81-234) Total Creatine Kinase 105 U/L (26-308) Total Protein 6.8 G/DL (6.4-8.2) Albumin 2.8 G/DL (3.4-5.0) Globulin 4.0 g/dL Albumin/Globulin Ratio 0.7 (1.0-2.7) Vitamin B12 Level 564 PG/ML (193-986) Folate 9.4 NG/ML (8.6-58.9) Thyroid Stimulating Hormone (TSH) 1.111 uiU/mL (0.358-3.740) Test 01/06/20 16:52 01/06/20 20:11 01/07/20 03:00 01/07/20 04:09 POC Whole Blood Glucose 84 MG/DL (74-106) 75 MG/DL (74-106) Urine Random Sodium 26 mmol/L (20-110) White Blood Count 7.7 K/UL (4.8-10.8) Red Blood Count 3.04 M/UL (4.70-6.10) Hemoglobin 9.0 G/DL (14.2-18.0) Hematocrit 29.1 % (42.0-52.0) Mean Corpuscular Volume 96 FL (80-99) Mean Corpuscular Hemoglobin 29.6 PG (27.0-31.0) Mean Corpuscular Hemoglobin Concent 30.9 G/DL (32.0-36.0) Red Cell Distribution Width 20.5 % (11.6-14.8) Platelet Count 192 K/UL (150-450) Mean Platelet Volume 6.3 FL (6.5-10.1) Neutrophils (%) (Auto) 65.7 % (45.0-75.0) Lymphocytes (%) (Auto) 26.6 % (20.0-45.0) Monocytes (%) (Auto) 6.0 % (1.0-10.0) Eosinophils (%) (Auto) 1.0 % (0.0-3.0) Basophils (%) (Auto) 0.7 % (0.0-2.0) Sodium Level 152 MMOL/L (136-145) Potassium Level 3.2 MMOL/L (3.5-5.1) Chloride Level 116 MMOL/L (98-107) Carbon Dioxide Level 18 MMOL/L (21-32) Anion Gap 18 mmol/L (5-15) Blood Urea Nitrogen 48 mg/dL (7-18) Creatinine 2.8 MG/DL (0.55-1.30) Estimat Glomerular Filtration Rate 27.3 mL/min (>60) Glucose Level 94 MG/DL (74-106) Uric Acid 27.4 MG/DL (2.6-7.2) Calcium Level 11.3 MG/DL (8.5-10.1) Phosphorus Level 3.7 MG/DL (2.5-4.9) Magnesium Level 2.0 MG/DL (1.8-2.4) Total Bilirubin 0.3 MG/DL (0.2-1.0) Aspartate Amino Transf (AST/SGOT) 93 U/L (15-37) Alanine Aminotransferase (ALT/SGPT) 14 U/L (12-78) Alkaline Phosphatase 56 U/L (46-116) Troponin I 0.009 ng/mL (0.000-0.056) C-Reactive Protein, Quantitative 4.9 mg/dL (0.00-0.90) Pro-B-Type Natriuretic Peptide 1312 pg/mL (0-125) Total Protein 6.7 G/DL (6.4-8.2) Albumin 2.6 G/DL (3.4-5.0) Globulin 4.1 g/dL Albumin/Globulin Ratio 0.6 (1.0-2.7) Test 01/07/20 06:18 01/07/20 11:36 01/07/20 16:15 01/07/20 17:13 POC Whole Blood Glucose 97 MG/DL (74-106) 111 MG/DL (74-106) 73 MG/DL (74-106) 92 MG/DL (74-106) Test 01/07/20 21:00 01/08/20 04:08 01/08/20 05:37 POC Whole Blood Glucose 99 MG/DL (74-106) 99 MG/DL (74-106) White Blood Count 5.3 K/UL (4.8-10.8) Red Blood Count 3.38 M/UL (4.70-6.10) Hemoglobin 10.1 G/DL (14.2-18.0) Hematocrit 33.1 % (42.0-52.0) Mean Corpuscular Volume 98 FL (80-99) Mean Corpuscular Hemoglobin 29.9 PG (27.0-31.0) Mean Corpuscular Hemoglobin Concent 30.6 G/DL (32.0-36.0) Red Cell Distribution Width 19.6 % (11.6-14.8) Platelet Count 161 K/UL (150-450) Mean Platelet Volume 7.0 FL (6.5-10.1) Neutrophils (%) (Auto) 67.6 % (45.0-75.0) Lymphocytes (%) (Auto) 26.1 % (20.0-45.0) Monocytes (%) (Auto) 5.3 % (1.0-10.0) Eosinophils (%) (Auto) 0.3 % (0.0-3.0) Basophils (%) (Auto) 0.7 % (0.0-2.0) Height (Feet): 6 Height (Inches): 0.00 Weight (Pounds): 150 Objective PE: Vitals: reviewed General Appearance: NAD HEENT: normocephalic, atraumatic Neck: non-tender, normal alignment Respiratory/Chest: nromal breath sounds bilaterally Cardiovascular/Chest: normal peripheral pulses, normal rate Abdomen: normal bowel sounds, soft, nontender Extremities: normal range of motion Samuel Son MD Jan 08, 2020 06:38
[2020-01-08 06:46] LABS: % IRON SATURATION 28 % (15-50); IRON 56 ug/dL (50-175); TOTAL IRON BINDING CAPACITY 197 ug/dL (250-450)
--- NOTE | 2020-01-08 06:50 | General Progress Note ---
Subjective ROS Limited/Unobtainable: No Allergies: Coded Allergies: No Known Allergies (Unverified , 03/18/19) Objective Last 24 Hour Vital Signs Date Time Temp Pulse Resp B/P (MAP) Pulse Ox O2 Delivery O2 Flow Rate FiO2 01/08/20 04:00 94 01/08/20 04:00 97.7 17 104/66 (79) 100 01/08/20 04:00 Room Air 01/08/20 00:00 97.7 91 19 93/82 (86) 100 01/08/20 00:00 Room Air 01/07/20 23:23 96 01/07/20 20:00 Room Air 01/07/20 20:00 97.9 98 20 104/66 (79) 100 01/07/20 19:48 98 20 97 Room Air 21 01/07/20 19:14 97 01/07/20 16:00 Room Air 01/07/20 16:00 102 01/07/20 15:17 97.5 102 18 109/61 (77) 100 01/07/20 12:00 97.9 96 20 98/60 (73) 100 01/07/20 12:00 95 01/07/20 12:00 Room Air 01/07/20 08:00 93 01/07/20 08:00 Room Air 01/07/20 07:59 97.2 100 20 106/59 (75) 100 Intake and Output 01/07/20 01/08/20 19:00 07:00 Intake Total 500 ml 1521 ml Output Total 300 ml 400 ml Balance 200 ml 1121 ml Intake Oral 25 ml IV Total 500 ml 1496 ml Output Urine Total 300 ml 400 ml Laboratory Tests 01/07/20 11:36: POC Whole Blood Glucose 111H 01/07/20 16:15: POC Whole Blood Glucose 73L 01/07/20 17:13: POC Whole Blood Glucose 92 01/07/20 21:00: POC Whole Blood Glucose 99 01/08/20 04:08: White Blood Count 5.3, Red Blood Count 3.38L, Hemoglobin 10.1L, Hematocrit 33.1L , Mean Corpuscular Volume 98, Mean Corpuscular Hemoglobin 29.9, Mean Corpuscular Hemoglobin Concent 30.6L, Red Cell Distribution Width 19.6H, Platelet Count 161, Mean Platelet Volume 7.0, Neutrophils (%) (Auto) 67.6, Lymphocytes (%) (Auto) 26.1, Monocytes (%) (Auto) 5.3, Eosinophils (%) (Auto) 0.3, Basophils (%) (Auto) 0.7, Sodium Level [Pending], Potassium Level [Pending], Chloride Level [Pending], Carbon Dioxide Level [Pending], Blood Urea Nitrogen [Pending], Cre atinine [Pending], Estimat Glomerular Filtration Rate [Pending], Glucose Level [Pending], Calcium Level [Pending], Phosphorus Level [Pending], Magnesium Level [Pending], Iron Level [Pending], Unsaturated Iron Binding [Pending], Total Bilirubin [Pending], Aspartate Amino Transf (AST/SGOT) [Pending], Alanine Aminotransferase (ALT/SGPT) [Pending], Alkaline Phosphatase [Pending], Total Protein [Pending], Albumin [Pending], Globulin [Pending], Carcinoembryonic Antigen [Pending], Vitamin B12 Level [Pending], Folate [Pending] 01/08/20 05:37: POC Whole Blood Glucose 99 Height (Feet): 6 Height (Inches): 0.00 Weight (Pounds): 150 General Appearance: lethargic EENT: normal ENT inspection Neck: supple Cardiovascular: normal rate Respiratory/Chest: decreased breath sounds Abdomen: hypoactive bowel sounds Extremities: non-tender Assessment/Plan Status: unchanged Assessment/Plan: AMS dementia Anemia DM hyper CA elevated AST low albumin COPD RI HTN passed swallow eval anemia work up GI procedures on hold fu nephrology and cardiology recs repeat labs fu stool ob bowel regimen on plavix Paulino Bueno MD Jan 08, 2020 06:50
[2020-01-08 07:46] LABS: ALANINE AMINOTRANSFERASE 16 U/L (12-78); ALBUMIN 3.3 G/DL (3.4-5.0); ALKALINE PHOSPHATASE 67 U/L (46-116); ANION GAP 22 mmol/L (5-15); ASPARTATE AMINO TRANSFERASE 277 U/L (15-37); BILIRUBIN,TOTAL 0.3 MG/DL (0.2-1.0); BLOOD UREA NITROGEN 45 mg/dL (7-18); CALCIUM 11.5 MG/DL (8.5-10.1); CARBON DIOXIDE 12 MMOL/L (21-32); CHLORIDE 106 MMOL/L (98-107); CREATININE 2.7 MG/DL (0.55-1.30); POTASSIUM 4.1 MMOL/L (3.5-5.1); SODIUM 140 MMOL/L (136-145)
[2020-01-08 08:00] VITALS: BP 139/74
[2020-01-08] MEDS: Benztropine 1mg tab ORAL SCH ×4 (08:21→18:00)
[2020-01-08] MEDS: Pantoprazole Inj IVP SCH ×2 (08:21→20:31)
[2020-01-08] MEDS: Docusate 100mg cap ORAL SCH (08:22)
[2020-01-08] MEDS: Heparin 5000 units/ml inj SUBQ SCH ×2 (08:24→20:20)
[2020-01-08] MEDS ORDERED: Pamidronate Disodium Inj 60 MG in Sodium Chloride 550 ML IVPB ONE (10:00)
--- NOTE | 2020-01-08 11:07 | Cardiac Electrophysiology PN ---
Assessment/Plan Assessment/Plan 1. Altered mental status due to severe dehydration in view of sodium of 160 and acute renal failure. On IV fluids and IV antibiotics.Ruled out for NH 2. History of hypertension. We will hold off on his blood pressure medication at this time. Of note at the senior living, the patient was on amlodipine and metoprolol, but has been discontinued in view of relative hypotension. 3. History of CVA, on Plavix. 4. Advanced dementia. 5. Diabetes. 6. Acute renal failure. The patient is being hydrated. Subjective Subjective Nonverbal in NAD. Getting iv fluids In SR 95. Stool OB still pending Objective Last 24 Hour Vital Signs Date Time Temp Pulse Resp B/P (MAP) Pulse Ox O2 Delivery O2 Flow Rate FiO2 01/08/20 08:00 Room Air 01/08/20 08:00 96.3 89 16 139/74 (95) 100 01/08/20 07:15 88 01/08/20 04:00 94 01/08/20 04:00 97.7 17 104/66 (79) 100 01/08/20 04:00 Room Air 01/08/20 00:00 97.7 91 19 93/82 (86) 100 01/08/20 00:00 Room Air 01/07/20 23:23 96 01/07/20 20:00 Room Air 01/07/20 20:00 97.9 98 20 104/66 (79) 100 01/07/20 19:48 98 20 97 Room Air 21 01/07/20 19:14 97 01/07/20 16:00 Room Air 01/07/20 16:00 102 01/07/20 15:17 97.5 102 18 109/61 (77) 100 01/07/20 12:00 97.9 96 20 98/60 (73) 100 01/07/20 12:00 95 01/07/20 12:00 Room Air Intake and Output 01/07/20 01/08/20 19:00 07:00 Intake Total 500 ml 1821 ml Output Total 300 ml 400 ml Balance 200 ml 1421 ml Intake Oral 25 ml IV Total 500 ml 1796 ml Output Urine Total 300 ml 400 ml Laboratory Tests Test 01/07/20 11:36 01/07/20 16:15 01/07/20 17:13 01/07/20 21:00 POC Whole Blood Glucose 111 MG/DL (74-106) H 73 MG/DL (74-106) L 92 MG/DL (74-106) 99 MG/DL (74-106) Test 01/08/20 04:08 01/08/20 05:21 01/08/20 05:37 White Blood Count 5.3 K/UL (4.8-10.8) Red Blood Count 3.38 M/UL (4.70-6.10) L Hemoglobin 10.1 G/DL (14.2-18.0) L Hematocrit 33.1 % (42.0-52.0) L Mean Corpuscular Volume 98 FL (80-99) Mean Corpuscular Hemoglobin 29.9 PG (27.0-31.0) Mean Corpuscular Hemoglobin Concent 30.6 G/DL (32.0-36.0) L Red Cell Distribution Width 19.6 % (11.6-14.8) H Platelet Count 161 K/UL (150-450) Mean Platelet Volume 7.0 FL (6.5-10.1) Neutrophils (%) (Auto) 67.6 % (45.0-75.0) Lymphocytes (%) (Auto) 26.1 % (20.0-45.0) Monocytes (%) (Auto) 5.3 % (1.0-10.0) Eosinophils (%) (Auto) 0.3 % (0.0-3.0) Basophils (%) (Auto) 0.7 % (0.0-2.0) Sodium Level 140 MMOL/L (136-145) # Potassium Level 4.1 MMOL/L (3.5-5.1) Chloride Level 106 MMOL/L (98-107) Carbon Dioxide Level 12 MMOL/L (21-32) L Anion Gap 22 mmol/L (5-15) H Blood Urea Nitrogen 45 mg/dL (7-18) H Creatinine 2.7 MG/DL (0.55-1.30) H Estimat Glomerular Filtration Rate 28.4 mL/min (>60) Glucose Level 103 MG/DL (74-106) Calcium Level 11.5 MG/DL (8.5-10.1) H Phosphorus Level 5.1 MG/DL (2.5-4.9) H Magnesium Level 2.0 MG/DL (1.8-2.4) Iron Level 56 ug/dL (50-175) Total Iron Binding Capacity 197 ug/dL (250-450) L Percent Iron Saturation 28 % (15-50) Unsaturated Iron Binding 141 ug/dL (112-346) Total Bilirubin 0.3 MG/DL (0.2-1.0) Aspartate Amino Transf (AST/SGOT) 277 U/L (15-37) H Alanine Aminotransferase (ALT/SGPT) 16 U/L (12-78) Alkaline Phosphatase 67 U/L (46-116) Total Protein 6.7 G/DL (6.4-8.2) Albumin 3.3 G/DL (3.4-5.0) L Globulin 3.4 g/dL Albumin/Globulin Ratio 1.0 (1.0-2.7) Carcinoembryonic Antigen Pending Vitamin B12 Level 1349 PG/ML (193-986) H Folate 12.0 NG/ML (8.6-58.9) Uric Acid 24.1 MG/DL (2.6-7.2) H POC Whole Blood Glucose 99 MG/DL (74-106) Microbiology Date/Time Source Procedure Growth Status 01/05/20 17:05 Rectum VRE Culture - Final NO VANCOMYCIN RESISTANT ENTEROCOCCUS ... Complete 01/05/20 17:05 Rectum - Final NO CARBAPENEM-RESISTANT ENTEROBACTERI... Complete 01/05/20 17:05 Nasal Nares MRSA Culture - Final NO METHICILLIN RESISTANT STAPH AUREUS... Complete 01/05/20 15:40 Nasopharynx SARS-CoV-2 RdRp Gene Assay - Final Complete 01/05/20 13:40 Nasal Nares - Final Complete 01/05/20 13:40 Nasal Nares - Final Complete Objective HEAD AND NECK: No JVD. LUNGS: Coarse rhonchi. CARDIOVASCULAR: Regular S1 and S2 with no gallop. ABDOMEN: Soft. EXTREMITIES: No pitting edema. Kevin Lopez MD Jan 08, 2020 11:07
--- NOTE | 2020-01-08 11:46 | Infectious Diseases Prog Note ---
Assessment/Plan Assessment: COVID19 neg -01/04 rapid COVID PCR neg x1 influenza PCR neg CXR: Mild interstitial vascular prominence. No focal infiltrate or consolidation. Afebrile No leukocytosis -u/a neg Tachycardia, SP-2 ry to severe dehydration- no evidence of infection AVIS, improving Hyponatremia, improving Acute on chronic encephalopathy -CT head: 1. Markedly limited, near nondiagnostic evaluation due to motion artifact. Grossly, age-related changes and small vessel disease of aging are noted. Again grossly, no acute intracranial pathology is detected. If there is a high degree of concern or if there is concern for subtle abnormalities, magnetic resonance imaging of the brain with diffusion-weighted sequences should be performed, due to the markedly limited nature of the current study. Close clinical correlation is necessary. HTN COPD DM2 paraplegia Dementia non verbal [place] resident (elan mora) Plan: -Cont to monitor off abx -01/06 SP Ceftriaxone #2 -01/04 Sp IV Vancomycin x1, Cefepime x1 -f/u cx -Monitor CBC/CMP, temperatures -Renal, cards f/u Thank you for consulting [facility]. Will continue to follow along with you. Discussed with RN. Subjective Allergies: Coded Allergies: No Known Allergies (Unverified , 03/18/19) afebrile no leukocytosis Cr improving Objective Last 24 Hour Vital Signs Date Time Temp Pulse Resp B/P (MAP) Pulse Ox O2 Delivery O2 Flow Rate FiO2 01/08/20 08:00 Room Air 01/08/20 08:00 96.3 89 16 139/74 (95) 100 01/08/20 07:15 88 01/08/20 04:00 94 01/08/20 04:00 97.7 17 104/66 (79) 100 01/08/20 04:00 Room Air 01/08/20 00:00 97.7 91 19 93/82 (86) 100 01/08/20 00:00 Room Air 01/07/20 23:23 96 01/07/20 20:00 Room Air 01/07/20 20:00 97.9 98 20 104/66 (79) 100 01/07/20 19:48 98 20 97 Room Air 21 01/07/20 19:14 97 01/07/20 16:00 Room Air 01/07/20 16:00 102 01/07/20 15:17 97.5 102 18 109/61 (77) 100 01/07/20 12:00 97.9 96 20 98/60 (73) 100 01/07/20 12:00 95 01/07/20 12:00 Room Air Height (Feet): 6 Height (Inches): 0.00 Weight (Pounds): 150 GENERAL: Calm in bed, confused, not answering questions. CARDIOVASCULAR: No murmur. LUNGS: Poor exchange. ABDOMEN: Bowel sounds distant. EXTREMITIES: No cyanosis or edema. NEUROLOGIC: The patient moves all extremities, slightly weak. Microbiology Date/Time Source Procedure Growth Status 01/05/20 17:05 Rectum VRE Culture - Final NO VANCOMYCIN RESISTANT ENTEROCOCCUS ... Complete 01/05/20 17:05 Rectum - Final NO CARBAPENEM-RESISTANT ENTEROBACTERI... Complete 01/05/20 17:05 Nasal Nares MRSA Culture - Final NO METHICILLIN RESISTANT STAPH AUREUS... Complete 01/05/20 15:40 Nasopharynx SARS-CoV-2 RdRp Gene Assay - Final Complete 01/05/20 13:40 Nasal Nares - Final Complete 01/05/20 13:40 Nasal Nares - Final Complete Laboratory Tests Test 01/07/20 11:36 01/07/20 16:15 01/07/20 17:13 01/07/20 21:00 POC Whole Blood Glucose 111 MG/DL (74-106) H 73 MG/DL (74-106) L 92 MG/DL (74-106) 99 MG/DL (74-106) Test 01/08/20 04:08 01/08/20 05:21 01/08/20 05:37 White Blood Count 5.3 K/UL (4.8-10.8) Red Blood Count 3.38 M/UL (4.70-6.10) L Hemoglobin 10.1 G/DL (14.2-18.0) L Hematocrit 33.1 % (42.0-52.0) L Mean Corpuscular Volume 98 FL (80-99) Mean Corpuscular Hemoglobin 29.9 PG (27.0-31.0) Mean Corpuscular Hemoglobin Concent 30.6 G/DL (32.0-36.0) L Red Cell Distribution Width 19.6 % (11.6-14.8) H Platelet Count 161 K/UL (150-450) Mean Platelet Volume 7.0 FL (6.5-10.1) Neutrophils (%) (Auto) 67.6 % (45.0-75.0) Lymphocytes (%) (Auto) 26.1 % (20.0-45.0) Monocytes (%) (Auto) 5.3 % (1.0-10.0) Eosinophils (%) (Auto) 0.3 % (0.0-3.0) Basophils (%) (Auto) 0.7 % (0.0-2.0) Sodium Level 140 MMOL/L (136-145) # Potassium Level 4.1 MMOL/L (3.5-5.1) Chloride Level 106 MMOL/L (98-107) Carbon Dioxide Level 12 MMOL/L (21-32) L Anion Gap 22 mmol/L (5-15) H Blood Urea Nitrogen 45 mg/dL (7-18) H Creatinine 2.7 MG/DL (0.55-1.30) H Estimat Glomerular Filtration Rate 28.4 mL/min (>60) Glucose Level 103 MG/DL (74-106) Calcium Level 11.5 MG/DL (8.5-10.1) H Phosphorus Level 5.1 MG/DL (2.5-4.9) H Magnesium Level 2.0 MG/DL (1.8-2.4) Iron Level 56 ug/dL (50-175) Total Iron Binding Capacity 197 ug/dL (250-450) L Percent Iron Saturation 28 % (15-50) Unsaturated Iron Binding 141 ug/dL (112-346) Total Bilirubin 0.3 MG/DL (0.2-1.0) Aspartate Amino Transf (AST/SGOT) 277 U/L (15-37) H Alanine Aminotransferase (ALT/SGPT) 16 U/L (12-78) Alkaline Phosphatase 67 U/L (46-116) Total Protein 6.7 G/DL (6.4-8.2) Albumin 3.3 G/DL (3.4-5.0) L Globulin 3.4 g/dL Albumin/Globulin Ratio 1.0 (1.0-2.7) Carcinoembryonic Antigen Pending Vitamin B12 Level 1349 PG/ML (193-986) H Folate 12.0 NG/ML (8.6-58.9) Uric Acid 24.1 MG/DL (2.6-7.2) H POC Whole Blood Glucose 99 MG/DL (74-106) Current Medications Medications (Trade) Dose Ordered Sig/Jesse Route PRN Reason Start Time Stop Time Status Last Admin Dose Admin Acetaminophen (Tylenol) 650 mg Q4H PRN ORAL PRNH/TEMP 01/05/20 20:15 02/04/20 20:14 Albuterol/ Ipratropium (Albuterol/ Ipratropium) 3 ml Q4H PRN HHN Shortness of Breath 01/05/20 20:15 01/10/20 20:14 Albuterol/ Ipratropium (Albuterol/ Ipratropium) 3 ml Q6HRT PRN HHN Shortness of Breath 01/06/20 00:45 01/11/20 00:44 Allopurinol (allopurinoL) 300 mg DAILY ORAL 01/07/20 14:15 02/06/20 14:14 01/08/20 08:22 Barium Sulfate (Varibar Honey) 250 ml NOW PRN MC RAD 01/06/20 15:30 01/09/20 15:24 Barium Sulfate (Varibar [place]) 240 ml NOW PRN MC RAD 01/06/20 15:30 01/09/20 15:24 Barium Sulfate (Varibar Pudding) 230 ml NOW PRN MC RAD 01/06/20 15:30 01/09/20 15:24 Barium Sulfate (Varibar Thin Liquid powder) 148 gm NOW PRN MC RAD 01/06/20 15:30 01/09/20 15:24 Benztropine Mesylate (Cogentin) 1.5 mg BID ORAL 01/06/20 09:00 02/05/20 08:59 01/08/20 08:21 Bisacodyl (Dulcolax) 10 mg DAILY PRN RECTAL Constipation 01/05/20 20:15 04/04/20 20:14 Clopidogrel Bisulfate (Plavix) 75 mg DAILY ORAL 01/06/20 09:00 02/05/20 08:59 01/08/20 08:22 Dextrose 1,000 ml @ 150 mls/hr Q6H40M IV 01/05/20 19:45 02/04/20 19:44 01/08/20 04:43 Dextrose (Dextrose 50%) 25 ml Q30M PRN IV Hypoglycemia 01/05/20 20:15 04/04/20 20:14 Dextrose (Dextrose 50%) 50 ml Q30M PRN IV Hypoglycemia 01/05/20 20:15 04/04/20 20:14 Docusate Sodium (Colace) 200 mg DAILY ORAL 01/06/20 09:00 02/05/20 08:59 01/08/20 08:22 Heparin Sodium (Porcine) (Heparin 5000 units/ml) 5,000 units Q12HR SUBQ 01/07/20 21:00 02/20/20 08:59 01/08/20 08:24 Insulin Aspart (NovoLOG) BEFORE MEALS AND HS SUBQ 01/05/20 21:00 04/04/20 20:59 Magnesium Hydroxide (Mom) 30 ml QHS PRN ORAL Constipation 01/05/20 20:15 02/04/20 20:14 Mirtazapine (Remeron) 15 mg BEDTIME ORAL 01/08/20 21:00 04/07/20 20:59 Morphine Sulfate (Morphine Sulfate) 2 mg Q4H PRN IVP For Pain 01/06/20 00:45 01/13/20 00:44 Multivitamins (Multivitamins) 1 tab DAILY ORAL 01/06/20 09:00 02/05/20 08:59 01/08/20 08:22 Pamidronate Disodium 60 mg/ Sodium Chloride 550 ml @ 137.5 mls/ hr ONCE ONCE IVPB 01/08/20 10:00 01/08/20 13:59 01/08/20 10:16 Pantoprazole (Protonix) 40 mg EVERY 12 HOURS IVP 01/05/20 21:00 02/04/20 20:59 01/08/20 08:21 Sennosides (Senokot) 8.6 mg QHS ORAL 01/05/20 21:00 02/04/20 20:59 01/07/20 20:51 Sodium Phosphate (Fleet's Sodium Phosl Enema) 133 ml EVERY OTHER DAY PRN RECTAL Constipation 01/05/20 20:15 02/04/20 20:14 Tamsulosin HCl (Flomax) 0.4 mg BEDTIME ORAL 01/05/20 21:00 02/04/20 20:59 11/2/20 20:51 Clara Guerin M.D. Jan 08, 2020 11:46
[2020-01-08 12:00] VITALS: BP 132/89
--- NOTE | 2020-01-08 12:37 | General Progress Note ---
Subjective Constitutional: Reports: weakness Allergies: Coded Allergies: No Known Allergies (Unverified , 03/18/19) All Systems: reviewed and negative except above Subjective sleepy calm in bed Objective Last 24 Hour Vital Signs Date Time Temp Pulse Resp B/P (MAP) Pulse Ox O2 Delivery O2 Flow Rate FiO2 01/08/20 12:00 Room Air 01/08/20 12:00 97.2 87 17 132/89 (103) 100 01/08/20 08:00 Room Air 01/08/20 08:00 96.3 89 16 139/74 (95) 100 01/08/20 07:15 88 01/08/20 04:00 94 01/08/20 04:00 97.7 17 104/66 (79) 100 01/08/20 04:00 Room Air 01/08/20 00:00 97.7 91 19 93/82 (86) 100 01/08/20 00:00 Room Air 01/07/20 23:23 96 01/07/20 20:00 Room Air 01/07/20 20:00 97.9 98 20 104/66 (79) 100 01/07/20 19:48 98 20 97 Room Air 21 01/07/20 19:14 97 01/07/20 16:00 Room Air 01/07/20 16:00 102 01/07/20 15:17 97.5 102 18 109/61 (77) 100 Intake and Output 01/07/20 01/08/20 19:00 07:00 Intake Total 500 ml 1821 ml Output Total 300 ml 400 ml Balance 200 ml 1421 ml Intake Oral 25 ml IV Total 500 ml 1796 ml Output Urine Total 300 ml 400 ml Laboratory Tests 01/07/20 16:15: POC Whole Blood Glucose 73L 01/07/20 17:13: POC Whole Blood Glucose 92 01/07/20 21:00: POC Whole Blood Glucose 99 01/08/20 04:08: White Blood Count 5.3, Red Blood Count 3.38L, Hemoglobin 10.1L, Hematocrit 33.1L , Mean Corpuscular Volume 98, Mean Corpuscular Hemoglobin 29.9, Mean Corpuscular Hemoglobin Concent 30.6L, Red Cell Distribution Width 19.6H, Platelet Count 161, Mean Platelet Volume 7.0, Neutrophils (%) (Auto) 67.6, Lymphocytes (%) (Auto) 26.1, Monocytes (%) (Auto) 5.3, Eosinophils (%) (Auto) 0.3, Basophils (%) (Auto) 0.7, Sodium Level 140#, Potassium Level 4.1, Chloride Level 106, Carbon Dioxide Level 12L, Anion Gap 22H, Blood Urea Nitrogen 45H, Creatinine 2.7H, Estimat Glomerular Filtration Rate 28.4, Glucose Level 103, Calcium Level 11.5H, Ph osphorus Level 5.1H, Magnesium Level 2.0, Iron Level 56, Total Iron Binding Capacity 197L, Percent Iron Saturation 28, Unsaturated Iron Binding 141, Total Bilirubin 0.3, Aspartate Amino Transf (AST/SGOT) 277H, Alanine Aminotransferase (ALT/SGPT) 16, Alkaline Phosphatase 67, Total Protein 6.7, Albumin 3.3L, [place] bulin 3.4, Albumin/Globulin Ratio 1.0, Carcinoembryonic Antigen [Pending], Vitamin B12 Level 1349H, Folate 12.0 01/08/20 05:21: Uric Acid 24.1H 01/08/20 05:37: POC Whole Blood Glucose 99 01/08/20 11:57: POC Whole Blood Glucose 89 Height (Feet): 6 Height (Inches): 0.00 Weight (Pounds): 150 General Appearance: lethargic EENT: normal ENT inspection Neck: normal alignment Cardiovascular: normal peripheral pulses, normal rate, regular rhythm Respiratory/Chest: chest wall non-tender, lungs clear, normal breath sounds Abdomen: normal bowel sounds, non tender, soft Extremities: normal inspection Edema: no edema noted Arm (L), no edema noted Arm (R), no edema noted Leg (L), no edema noted Leg (R), no edema noted Pedal (L), no edema noted Pedal (R), no edema noted Generalized Neurologic: motor weakness Skin: normal pigmentation, warm/dry Assessment/Plan Problem List: (1) Anemia ICD Codes: D64.9 - Anemia, unspecified SNOMED: 502351628 (2) Paraplegia ICD Codes: G82.20 - Paraplegia, unspecified SNOMED: 22921072 (3) Diabetes ICD Codes: E11.9 - Type 2 diabetes mellitus without complications SNOMED: 33479874 (4) Weak ICD Codes: R53.1 - Weakness SNOMED: 69018976 (5) HTN (hypertension) ICD Codes: I10 - Essential (primary) hypertension SNOMED: 56954740 (6) ARF (acute renal failure) ICD Codes: N17.9 - Acute kidney failure, unspecified SNOMED: 52631849 (7) Altered level of consciousness ICD Codes: R40.4 - Transient alteration of awareness SNOMED: 1355934 (8) Dehydration ICD Codes: E86.0 - Dehydration SNOMED: 37040566 (9) Hypernatremia ICD Codes: E87.0 - Hyperosmolality and hypernatremia SNOMED: 898816768 Status: unchanged Assessment/Plan: o2 pulm tx abx ivf cbc bmp am Farrukh Ríos DO Jan 08, 2020 12:37
--- NOTE | 2020-01-08 14:03 | Nephrology Progress Note ---
Assessment/Plan Problem List: (1) ARF (acute renal failure) (2) Hypernatremia (3) Hypovolemic shock (4) Altered level of consciousness (5) Hypercalcemia (6) Hyperuricemia Assessment Acute renal failure Possible underlying chronic kidney failure Severe dehydration Hypernatremia indicative of severe water deficit Severe hyperuricemia, partly due to dehydration and renal failure Acute metabolic and toxic encephalopathy Mild, malnutrition Anemia Lactic acid, possible sepsis Hypercalcemia Plan January 07: Labs reviewed. Serum calcium remains elevated. Uric acid still elevated. Will give pamidronate 60 mg IV piggyback once for hypercalcemia. Continue to monitor renal parameters. Continue D5W 150 cc an hour. Start Bicitra 30 cc p.o. every 8 hours. Add allopurinol D5W IV hydration Albumin bolus N.p.o. until able to take p.o. Antibiotics Monitor renal parameters monitor calcium, monitor uric acid Subjective ROS Limited/Unobtainable: Yes Objective Objective Last 24 Hour Vital Signs Date Time Temp Pulse Resp B/P (MAP) Pulse Ox O2 Delivery O2 Flow Rate FiO2 01/08/20 12:00 Room Air 01/08/20 12:00 85 01/08/20 12:00 97.2 87 17 132/89 (103) 100 01/08/20 08:15 86 20 99 Room Air 01/08/20 08:00 Room Air 01/08/20 08:00 96.3 89 16 139/74 (95) 100 01/08/20 07:15 88 01/08/20 04:00 94 01/08/20 04:00 97.7 17 104/66 (79) 100 01/08/20 04:00 Room Air 01/08/20 00:00 97.7 91 19 93/82 (86) 100 01/08/20 00:00 Room Air 01/07/20 23:23 96 01/07/20 20:00 Room Air 01/07/20 20:00 97.9 98 20 104/66 (79) 100 01/07/20 19:48 98 20 97 Room Air 21 01/07/20 19:14 97 01/07/20 16:00 Room Air 01/07/20 16:00 102 01/07/20 15:17 97.5 102 18 109/61 (77) 100 Intake and Output 01/07/20 01/08/20 19:00 07:00 Intake Total 500 ml 1971 ml Output Total 300 ml 400 ml Balance 200 ml 1571 ml Intake Oral 25 ml IV Total 500 ml 1946 ml Output Urine Total 300 ml 400 ml Current Medications Medications (Trade) Dose Ordered Sig/Jesse Route PRN Reason Start Time Stop Time Status Last Admin Dose Admin Acetaminophen (Tylenol) 650 mg Q4H PRN ORAL PRNH/TEMP 01/05/20 20:15 02/04/20 20:14 Albuterol/ Ipratropium (Albuterol/ Ipratropium) 3 ml Q4H PRN HHN Shortness of Breath 01/05/20 20:15 01/10/20 20:14 Albuterol/ Ipratropium (Albuterol/ Ipratropium) 3 ml Q6HRT PRN HHN Shortness of Breath 01/06/20 00:45 01/11/20 00:44 Allopurinol (allopurinoL) 300 mg DAILY ORAL 01/07/20 14:15 02/06/20 14:14 01/08/20 08:22 Barium Sulfate (Varibar Honey) 250 ml NOW PRN MC RAD 01/06/20 15:30 01/09/20 15:24 Barium Sulfate (Varibar [place]) 240 ml NOW PRN MC RAD 01/06/20 15:30 01/09/20 15:24 Barium Sulfate (Varibar Pudding) 230 ml NOW PRN MC RAD 01/06/20 15:30 01/09/20 15:24 Barium Sulfate (Varibar Thin Liquid powder) 148 gm NOW PRN MC RAD 01/06/20 15:30 01/09/20 15:24 Benztropine Mesylate (Cogentin) 1.5 mg BID ORAL 01/06/20 09:00 02/05/20 08:59 01/08/20 08:21 Bisacodyl (Dulcolax) 10 mg DAILY PRN RECTAL Constipation 01/05/20 20:15 04/04/20 20:14 Clopidogrel Bisulfate (Plavix) 75 mg DAILY ORAL 01/06/20 09:00 02/05/20 08:59 01/08/20 08:22 Dextrose 1,000 ml @ 150 mls/hr Q6H40M IV 01/05/20 19:45 02/04/20 19:44 01/08/20 11:47 Dextrose (Dextrose 50%) 25 ml Q30M PRN IV Hypoglycemia 01/05/20 20:15 04/04/20 20:14 Dextrose (Dextrose 50%) 50 ml Q30M PRN IV Hypoglycemia 01/05/20 20:15 04/04/20 20:14 Docusate Sodium (Colace) 200 mg DAILY ORAL 01/06/20 09:00 02/05/20 08:59 01/08/20 08:22 Heparin Sodium (Porcine) (Heparin 5000 units/ml) 5,000 units Q12HR SUBQ 01/07/20 21:00 02/20/20 08:59 01/08/20 08:24 Insulin Aspart (NovoLOG) BEFORE MEALS AND HS SUBQ 01/05/20 21:00 04/04/20 20:59 Magnesium Hydroxide (Mom) 30 ml QHS PRN ORAL Constipation 01/05/20 20:15 02/04/20 20:14 Mirtazapine (Remeron) 15 mg BEDTIME ORAL 01/08/20 21:00 04/07/20 20:59 Morphine Sulfate (Morphine Sulfate) 2 mg Q4H PRN IVP For Pain 01/06/20 00:45 01/13/20 00:44 Multivitamins (Multivitamins) 1 tab DAILY ORAL 01/06/20 09:00 02/05/20 08:59 01/08/20 08:22 Pantoprazole (Protonix) 40 mg EVERY 12 HOURS IVP 01/05/20 21:00 02/04/20 20:59 01/08/20 08:21 Sennosides (Senokot) 8.6 mg QHS ORAL 01/05/20 21:00 02/04/20 20:59 01/07/20 20:51 Sodium Phosphate (Fleet's Sodium Phosl Enema) 133 ml EVERY OTHER DAY PRN RECTAL Constipation 01/05/20 20:15 02/04/20 20:14 Tamsulosin HCl (Flomax) 0.4 mg BEDTIME ORAL 01/05/20 21:00 02/04/20 20:59 01/07/20 20:51 Laboratory Tests 01/07/20 16:15: POC Whole Blood Glucose 73L 01/07/20 17:13: POC Whole Blood Glucose 92 01/07/20 21:00: POC Whole Blood Glucose 99 01/08/20 04:08: White Blood Count 5.3, Red Blood Count 3.38L, Hemoglobin 10.1L, Hematocrit 33.1L , Mean Corpuscular Volume 98, Mean Corpuscular Hemoglobin 29.9, Mean Corpuscular Hemoglobin Concent 30.6L, Red Cell Distribution Width 19.6H, Platelet Count 161, Mean Platelet Volume 7.0, Neutrophils (%) (Auto) 67.6, Lymphocytes (%) (Auto) 26.1, Monocytes (%) (Auto) 5.3, Eosinophils (%) (Auto) 0.3, Basophils (%) (Auto) 0.7, Sodium Level 140#, Potassium Level 4.1, Chloride Level 106, Carbon Dioxide Level 12L, Anion Gap 22H, Blood Urea Nitrogen 45H, Creatinine 2.7H, Estimat Glomerular Filtration Rate 28.4, Glucose Level 103, Calcium Level 11.5H, Phosphorus Level 5.1H, Magnesium Level 2.0, Iron Level 56, Total Iron Binding Capacity 197L, Percent Iron Saturation 28, Unsaturated Iron Binding 141, Total Bilirubin 0.3, Aspartate Amino Transf (AST/SGOT) 277H, Alanine Aminotransferase (ALT/SGPT) 16, Alkaline Phosphatase 67, Total Protein 6.7, Albumin 3.3L, Globulin 3.4, Albumin/Globulin Ratio 1.0, Carcinoembryonic Antigen [Pending], Vitamin B12 Level 1349H, Folate 12.0 01/08/20 05:21: Uric Acid 24.1H 01/08/20 05:37: POC Whole Blood Glucose 99 01/08/20 11:57: POC Whole Blood Glucose 89 Height (Feet): 6 Height (Inches): 0.00 Weight (Pounds): 150 General Appearance: no apparent distress, lethargic Cardiovascular: normal rate - Heart rate mid 80s Respiratory/Chest: decreased breath sounds Abdomen: distended Dhiraj Biswas MD Jan 08, 2020 14:03
[2020-01-08 16:00] VITALS: BP 122/75
[2020-01-08] MEDS: Sodium Citrate 30ml ORAL SCH ×4 (17:48→23:57)
[2020-01-08 20:00] VITALS: BP 137/69
[2020-01-08] MEDS: Tamsulosin 0.4mg cap ORAL SCH (20:28)
[2020-01-08] MEDS: Sennosides 8.6mg tab ORAL SCH (20:28)
--- NOTE | 2020-01-08 23:09 | Psychiatric Progress Note ---
Psychiatry Progress Note Psychiatry Progress Note Medications Current Medications Medications (Trade) Dose Ordered Sig/Jesse Route PRN Reason Start Time Stop Time Status Last Admin Dose Admin Acetaminophen (Tylenol) 650 mg Q4H PRN ORAL PRNH/TEMP 01/05/20 20:15 02/04/20 20:14 Albuterol/ Ipratropium (Albuterol/ Ipratropium) 3 ml Q4H PRN HHN Shortness of Breath 01/05/20 20:15 01/10/20 20:14 Albuterol/ Ipratropium (Albuterol/ Ipratropium) 3 ml Q6HRT PRN HHN Shortness of Breath 01/06/20 00:45 01/11/20 00:44 Allopurinol (allopurinoL) 300 mg DAILY ORAL 01/07/20 14:15 02/06/20 14:14 01/08/20 08:22 Barium Sulfate (Varibar Honey) 250 ml NOW PRN MC RAD 01/06/20 15:30 01/09/20 15:24 Barium Sulfate (Varibar [place]) 240 ml NOW PRN MC RAD 01/06/20 15:30 01/09/20 15:24 Barium Sulfate (Varibar Pudding) 230 ml NOW PRN MC RAD 01/06/20 15:30 01/09/20 15:24 Barium Sulfate (Varibar Thin Liquid powder) 148 gm NOW PRN MC RAD 01/06/20 15:30 01/09/20 15:24 Benztropine Mesylate (Cogentin) 1.5 mg BID ORAL 01/06/20 09:00 02/05/20 08:59 01/08/20 08:21 Bisacodyl (Dulcolax) 10 mg DAILY PRN RECTAL Constipation 01/05/20 20:15 04/04/20 20:14 Clopidogrel Bisulfate (Plavix) 75 mg DAILY ORAL 01/06/20 09:00 02/05/20 08:59 01/08/20 08:22 Dextrose 1,000 ml @ 150 mls/hr Q6H40M IV 01/05/20 19:45 02/04/20 19:44 01/08/20 17:49 Dextrose (Dextrose 50%) 25 ml Q30M PRN IV Hypoglycemia 01/05/20 20:15 04/04/20 20:14 Dextrose (Dextrose 50%) 50 ml Q30M PRN IV Hypoglycemia 01/05/20 20:15 04/04/20 20:14 Docusate Sodium (Colace) 200 mg DAILY ORAL 01/06/20 09:00 02/05/20 08:59 01/08/20 08:22 Heparin Sodium (Porcine) (Heparin 5000 units/ml) 5,000 units Q12HR SUBQ 01/07/20 21:00 02/20/20 08:59 01/08/20 08:24 Insulin Aspart (NovoLOG) BEFORE MEALS AND HS SUBQ 01/05/20 21:00 04/04/20 20:59 Magnesium Hydroxide (Mom) 30 ml QHS PRN ORAL Constipation 01/05/20 20:15 02/04/20 20:14 Mirtazapine (Remeron) 15 mg BEDTIME ORAL 01/08/20 21:00 04/07/20 20:59 Morphine Sulfate (Morphine Sulfate) 2 mg Q4H PRN IVP For Pain 01/06/20 00:45 01/13/20 00:44 Multivitamins (Multivitamins) 1 tab DAILY ORAL 01/06/20 09:00 02/05/20 08:59 01/08/20 08:22 Pantoprazole (Protonix) 40 mg EVERY 12 HOURS IVP 01/05/20 21:00 02/04/20 20:59 01/08/20 20:31 Sennosides (Senokot) 8.6 mg QHS ORAL 01/05/20 21:00 02/04/20 20:59 01/07/20 20:51 Sodium Citrate (Bicitra) 30 ml EVERY 6 HOURS ORAL 01/08/20 18:00 02/07/20 17:59 Sodium Phosphate (Fleet's Sodium Phosl Enema) 133 ml EVERY OTHER DAY PRN RECTAL Constipation 01/05/20 20:15 02/04/20 20:14 Tamsulosin HCl (Flomax) 0.4 mg BEDTIME ORAL 01/05/20 21:00 02/04/20 20:59 01/07/20 20:51 Neurological/Psychiatric: Reports: anxiety, depressed, emotional problems; Denies: no symptoms, headache, numbness, paresthesia, pre-existing deficit, seizure, tingling, tremors, weakness, other Allergies: Coded Allergies: No Known Allergies (Unverified , 03/18/19) Objective Data Height (Feet): 6 Height (Inches): 0.00 Weight (Pounds): 150 General Appearance: no apparent distress, lethargic Additional Comments: awake, disoriented. Mood is anxious with agitation. Affect is blunted, congruent with mood. Thought process, there is a paucity of thought content. Thought content, no suicidal or homicidal ideation. Cognition is impaired. Insight and judgment is impaired. Assessment/Plan Status: unchanged Assessment/Plan: ASSESSMENT: Minerva I Dementia. Dementia with behavior disturbance. Minerva II Deferred. Minerva III Failure to thrive. Minerva IV Low. Minerva V 20. PLAN: 1. Remeron 15 mg at bedtime to stimulate his appetite. 2. Discussed with the nurse. Toney Bernstein MD Jan 08, 2020 23:09
[2020-01-09] VITALS: BP 136/71
[2020-01-09 04:00] VITALS: BP 132/75
--- NOTE | 2020-01-09 04:06 | Cardiology Report ---
APPROVED REPORT EKG Measurement Heart [id number] <Conclusion> Sinus tachycardia Left anterior fascicular block Abnormal ECG
[2020-01-09 05:16] LABS: BASOPHILS % (AUTO) 0.9 % (0.0-2.0); EOSINOPHILS % (AUTO) 0.5 % (0.0-3.0); HEMATOCRIT 26.5 % (42.0-52.0); HEMOGLOBIN 8.6 G/DL (14.2-18.0); LYMPHOCYTES % (AUTO) 10.8 % (20.0-45.0); MEAN CORPUSCULAR VOLUME 92 FL (80-99); NEUTROPHILS % (AUTO) 84.9 % (45.0-75.0); PLATELET COUNT 130 K/UL (150-450); RED BLOOD COUNT 2.87 M/UL (4.70-6.10); RED CELL DISTRIBUTION WIDTH 18.5 % (11.6-14.8); WHITE BLOOD COUNT 4.8 K/UL (4.8-10.8)
[2020-01-09] MEDS: Sodium Citrate 30ml ORAL SCH ×2 (05:21→13:48)
[2020-01-09] MEDS: NovoLOG Insulin Flexpen SUBQ SCH ×4 (05:39→21:00)
[2020-01-09 05:56] LABS: ALBUMIN 2.3 G/DL (3.4-5.0); ALBUMIN/GLOBULIN RATIO 0.7 (1.0-2.7); BILIRUBIN,TOTAL 0.4 MG/DL (0.2-1.0); CALCIUM 10.3 MG/DL (8.5-10.1); CREATININE 2.8 MG/DL (0.55-1.30); PHOSPHORUS 7.1 MG/DL (2.5-4.9); POTASSIUM 3.7 MMOL/L (3.5-5.1)
--- NOTE | 2020-01-09 06:38 | Hematology/Onc Progress Note ---
Assessment/Plan Assessment/Plan Assessment/Recs # Anemia of chronic disease due to underlying chronic medical issues, multifactorial v Gi bleed --> Anemia workup has been ordered, rule out gi bleed --> No evidence of hemolysis is noted, peripheral smear has been reviewed. --> Hgb goal >7. Transfuse prn. --> Epogen or iron at this time is not particularly indicated --> Medications have been reviewed --> low threshold for gi evaluation in case has occult + --> hgb 10-->9.7-->9.2->10-->8.6 # Protein caloric malnutrition --> daily calorie counts --> daily weights --> mirtazapine started # Acute renal failure --> continue on ivfs --> as per renal # Hypokalemia --> replete with K # Severe dehydration --> ivfs ongoing # Hypernatremia indicative of severe water deficit # Severe hyperuricemia, partly due to dehydration and renal failure # Acute metabolic and toxic encephalopathy # Mild, malnutrition # Psych issues per psych # Lactic acid, possible sepsis # Dvt ppx heparin sq The timing of this note does not necessarily reflect the time of the patient was seen. Greatly appreciate consultation. Subjective HEENT: Denies: no symptoms, eye pain, blurred vision, tearing, double vision, ear pain, ear discharge, nose pain, nose congestion, throat pain, throat swelling, mouth pain, mouth swelling, other Cardiovascular: Denies: no symptoms, chest pain, edema, irregular heart rate, lightheadedness, palpitations, syncope, other Genitourinary: Denies: no symptoms, burning, discharge, frequency, flank pain, hematuria, incontinence, pain, urgency, other Neurologic/Psychiatric: Denies: no symptoms, anxiety, depressed, emotional problems, headache, numbness, paresthesia, pre-existing deficit, seizure, tingling, tremors, weakness, other Endocrine: Denies: no symptoms, excessive sweating, flushing, intolerance to cold, intolerance to heat, increased hunger, increased thirst, increased urine, unexplained weight gain, unexplained weight loss, other Hematologic/Lymphatic: Denies: no symptoms, anemia, easy bleeding, easy bruising, adenopathy, other Allergies: Coded Allergies: No Known Allergies (Unverified , 03/18/19) Subjective 11/3 meds noted, no bleeding, hgb 10, no hemolysis, hgb 10.1 01/08 labs reviewed, vi rn, no major events, no bleeding, hgb lower Objective Objective Current Medications Medications (Trade) Dose Ordered Sig/Jesse Route PRN Reason Start Time Stop Time Status Last Admin Dose Admin Acetaminophen (Tylenol) 650 mg Q4H PRN ORAL PRNH/TEMP 01/05/20 20:15 02/04/20 20:14 Albuterol/ Ipratropium (Albuterol/ Ipratropium) 3 ml Q4H PRN HHN Shortness of Breath 01/05/20 20:15 01/10/20 20:14 Albuterol/ Ipratropium (Albuterol/ Ipratropium) 3 ml Q6HRT PRN HHN Shortness of Breath 01/06/20 00:45 01/11/20 00:44 Allopurinol (allopurinoL) 300 mg DAILY ORAL 01/07/20 14:15 02/06/20 14:14 01/08/20 08:22 Barium Sulfate (Varibar Honey) 250 ml NOW PRN MC RAD 01/06/20 15:30 01/09/20 15:24 Barium Sulfate (Varibar [place]) 240 ml NOW PRN MC RAD 01/06/20 15:30 01/09/20 15:24 Barium Sulfate (Varibar Pudding) 230 ml NOW PRN MC RAD 01/06/20 15:30 01/09/20 15:24 Barium Sulfate (Varibar Thin Liquid powder) 148 gm NOW PRN MC RAD 01/06/20 15:30 01/09/20 15:24 Benztropine Mesylate (Cogentin) 1.5 mg BID ORAL 01/06/20 09:00 02/05/20 08:59 01/08/20 08:21 Bisacodyl (Dulcolax) 10 mg DAILY PRN RECTAL Constipation 01/05/20 20:15 04/04/20 20:14 Clopidogrel Bisulfate (Plavix) 75 mg DAILY ORAL 01/06/20 09:00 02/05/20 08:59 01/08/20 08:22 Dextrose 1,000 ml @ 150 mls/hr Q6H40M IV 01/05/20 19:45 02/04/20 19:44 01/09/20 05:59 Dextrose (Dextrose 50%) 25 ml Q30M PRN IV Hypoglycemia 01/05/20 20:15 04/04/20 20:14 Dextrose (Dextrose 50%) 50 ml Q30M PRN IV Hypoglycemia 01/05/20 20:15 04/04/20 20:14 Docusate Sodium (Colace) 200 mg DAILY ORAL 01/06/20 09:00 02/05/20 08:59 01/08/20 08:22 Heparin Sodium (Porcine) (Heparin 5000 units/ml) 5,000 units Q12HR SUBQ 01/07/20 21:00 02/20/20 08:59 01/08/20 08:24 Insulin Aspart (NovoLOG) BEFORE MEALS AND HS SUBQ 01/05/20 21:00 04/04/20 20:59 Magnesium Hydroxide (Mom) 30 ml QHS PRN ORAL Constipation 01/05/20 20:15 02/04/20 20:14 Mirtazapine (Remeron) 15 mg BEDTIME ORAL 01/08/20 21:00 04/07/20 20:59 Morphine Sulfate (Morphine Sulfate) 2 mg Q4H PRN IVP For Pain 01/06/20 00:45 01/13/20 00:44 Multivitamins (Multivitamins) 1 tab DAILY ORAL 01/06/20 09:00 02/05/20 08:59 01/08/20 08:22 Pantoprazole (Protonix) 40 mg EVERY 12 HOURS IVP 01/05/20 21:00 02/04/20 20:59 01/08/20 20:31 Sennosides (Senokot) 8.6 mg QHS ORAL 01/05/20 21:00 02/04/20 20:59 01/07/20 20:51 Sodium Citrate (Bicitra) 30 ml EVERY 6 HOURS ORAL 01/08/20 18:00 02/07/20 17:59 Sodium Phosphate (Fleet's Sodium Phosl Enema) 133 ml EVERY OTHER DAY PRN RECTAL Constipation 01/05/20 20:15 02/04/20 20:14 Tamsulosin HCl (Flomax) 0.4 mg BEDTIME ORAL 01/05/20 21:00 02/04/20 20:59 01/07/20 20:51 Last 24 Hour Vital Signs Date Time Temp Pulse Resp B/P (MAP) Pulse Ox O2 Delivery O2 Flow Rate FiO2 01/09/20 04:00 Room Air 01/09/20 04:00 97.7 90 21 132/75 (94) 100 01/09/20 03:30 90 01/09/20 00:00 Room Air 01/09/20 00:00 96.8 91 18 136/71 (92) 100 01/08/20 23:32 87 01/08/20 20:00 97.2 85 20 137/69 (91) 100 01/08/20 20:00 Room Air 01/08/20 19:28 84 01/08/20 16:00 97.0 86 19 122/75 (91) 100 01/08/20 16:00 Room Air 01/08/20 15:51 85 01/08/20 12:00 Room Air 01/08/20 12:00 85 01/08/20 12:00 97.2 87 17 132/89 (103) 100 01/08/20 08:15 86 20 99 Room Air 01/08/20 08:00 Room Air 01/08/20 08:00 96.3 89 16 139/74 (95) 100 01/08/20 07:15 88 01/08/20 04:00 94 01/08/20 04:00 97.7 17 104/66 (79) 100 01/08/20 04:00 Room Air 01/08/20 00:00 97.7 91 19 93/82 (86) 100 01/08/20 00:00 Room Air 01/07/20 23:23 96 01/07/20 20:00 Room Air 01/07/20 20:00 97.9 98 20 104/66 (79) 100 01/07/20 19:48 98 20 97 Room Air 01/07/20 19:14 97 01/07/20 16:00 Room Air 01/07/20 16:00 102 01/07/20 15:17 97.5 102 18 109/61 (77) 100 01/07/20 12:00 97.9 96 20 98/60 (73) 100 01/07/20 12:00 95 01/07/20 12:00 Room Air 01/07/20 08:00 93 01/07/20 08:00 Room Air 01/07/20 07:59 97.2 100 20 106/59 (75) 100 Intake and Output 01/08/20 01/09/20 19:00 07:00 Intake Total 1200 ml 1502.5 ml Output Total 475 ml 200 ml Balance 725 ml 1302.5 ml IV Total 1200 ml 1502.5 ml Output Urine Total 475 ml 200 ml Labs Test 01/06/20 08:50 01/06/20 11:35 01/06/20 16:52 01/06/20 20:11 Lactic Acid Level 2.70 mmol/L (0.66-2.22) POC Whole Blood Glucose 93 MG/DL (74-106) 84 MG/DL (74-106) 75 MG/DL (74-106) Test 01/07/20 03:00 01/07/20 04:09 01/07/20 06:18 01/07/20 11:36 Urine Random Sodium 26 mmol/L (20-110) White Blood Count 7.7 K/UL (4.8-10.8) Red Blood Count 3.04 M/UL (4.70-6.10) Hemoglobin 9.0 G/DL (14.2-18.0) Hematocrit 29.1 % (42.0-52.0) Mean Corpuscular Volume 96 FL (80-99) Mean Corpuscular Hemoglobin 29.6 PG (27.0-31.0) Mean Corpuscular Hemoglobin Concent 30.9 G/DL (32.0-36.0) Red Cell Distribution Width 20.5 % (11.6-14.8) Platelet Count 192 K/UL (150-450) Mean Platelet Volume 6.3 FL (6.5-10.1) Neutrophils (%) (Auto) 65.7 % (45.0-75.0) Lymphocytes (%) (Auto) 26.6 % (20.0-45.0) Monocytes (%) (Auto) 6.0 % (1.0-10.0) Eosinophils (%) (Auto) 1.0 % (0.0-3.0) Basophils (%) (Auto) 0.7 % (0.0-2.0) Sodium Level 152 MMOL/L (136-145) Potassium Level 3.2 MMOL/L (3.5-5.1) Chloride Level 116 MMOL/L (98-107) Carbon Dioxide Level 18 MMOL/L (21-32) Anion Gap 18 mmol/L (5-15) Blood Urea Nitrogen 48 mg/dL (7-18) Creatinine 2.8 MG/DL (0.55-1.30) Estimat Glomerular Filtration Rate 27.3 mL/min (>60) Glucose Level 94 MG/DL (74-106) Uric Acid 27.4 MG/DL (2.6-7.2) Calcium Level 11.3 MG/DL (8.5-10.1) Phosphorus Level 3.7 MG/DL (2.5-4.9) Magnesium Level 2.0 MG/DL (1.8-2.4) Total Bilirubin 0.3 MG/DL (0.2-1.0) Aspartate Amino Transf (AST/SGOT) 93 U/L (15-37) Alanine Aminotransferase (ALT/SGPT) 14 U/L (12-78) Alkaline Phosphatase 56 U/L (46-116) Troponin I 0.009 ng/mL (0.000-0.056) C-Reactive Protein, Quantitative 4.9 mg/dL (0.00-0.90) Pro-B-Type Natriuretic Peptide 1312 pg/mL (0-125) Total Protein 6.7 G/DL (6.4-8.2) Albumin 2.6 G/DL (3.4-5.0) Globulin 4.1 g/dL Albumin/Globulin Ratio 0.6 (1.0-2.7) POC Whole Blood Glucose 97 MG/DL (74-106) 111 MG/DL (74-106) Test 01/07/20 16:15 01/07/20 17:13 01/07/20 21:00 01/08/20 04:08 POC Whole Blood Glucose 73 MG/DL (74-106) 92 MG/DL (74-106) 99 MG/DL (74-106) White Blood Count 5.3 K/UL (4.8-10.8) Red Blood Count 3.38 M/UL (4.70-6.10) Hemoglobin 10.1 G/DL (14.2-18.0) Hematocrit 33.1 % (42.0-52.0) Mean Corpuscular Volume 98 FL (80-99) Mean Corpuscular Hemoglobin 29.9 PG (27.0-31.0) Mean Corpuscular Hemoglobin Concent 30.6 G/DL (32.0-36.0) Red Cell Distribution Width 19.6 % (11.6-14.8) Platelet Count 161 K/UL (150-450) Mean Platelet Volume 7.0 FL (6.5-10.1) Neutrophils (%) (Auto) 67.6 % (45.0-75.0) Lymphocytes (%) (Auto) 26.1 % (20.0-45.0) Monocytes (%) (Auto) 5.3 % (1.0-10.0) Eosinophils (%) (Auto) 0.3 % (0.0-3.0) Basophils (%) (Auto) 0.7 % (0.0-2.0) Sodium Level 140 MMOL/L (136-145) Potassium Level 4.1 MMOL/L (3.5-5.1) Chloride Level 106 MMOL/L (98-107) Carbon Dioxide Level 12 MMOL/L (21-32) Anion Gap 22 mmol/L (5-15) Blood Urea Nitrogen 45 mg/dL (7-18) Creatinine 2.7 MG/DL (0.55-1.30) Estimat Glomerular Filtration Rate 28.4 mL/min (>60) Glucose Level 103 MG/DL (74-106) Calcium Level 11.5 MG/DL (8.5-10.1) Phosphorus Level 5.1 MG/DL (2.5-4.9) Magnesium Level 2.0 MG/DL (1.8-2.4) Iron Level 56 ug/dL (50-175) Total Iron Binding Capacity 197 ug/dL (250-450) Percent Iron Saturation 28 % (15-50) Unsaturated Iron Binding 141 ug/dL (112-346) Total Bilirubin 0.3 MG/DL (0.2-1.0) Aspartate Amino Transf (AST/SGOT) 277 U/L (15-37) Alanine Aminotransferase (ALT/SGPT) 16 U/L (12-78) Alkaline Phosphatase 67 U/L (46-116) Total Protein 6.7 G/DL (6.4-8.2) Albumin 3.3 G/DL (3.4-5.0) Globulin 3.4 g/dL Albumin/Globulin Ratio 1.0 (1.0-2.7) Vitamin B12 Level 1349 PG/ML (193-986) Folate 12.0 NG/ML (8.6-58.9) Test 01/08/20 05:21 01/08/20 05:37 01/08/20 11:57 01/08/20 17:09 Uric Acid 24.1 MG/DL (2.6-7.2) POC Whole Blood Glucose 99 MG/DL (74-106) 89 MG/DL (74-106) 109 MG/DL (74-106) Test 01/08/20 20:34 01/09/20 04:20 01/09/20 05:32 POC Whole Blood Glucose 100 MG/DL (74-106) 118 MG/DL (74-106) White Blood Count 4.8 K/UL (4.8-10.8) Red Blood Count 2.87 M/UL (4.70-6.10) Hemoglobin 8.6 G/DL (14.2-18.0) Hematocrit 26.5 % (42.0-52.0) Mean Corpuscular Volume 92 FL (80-99) Mean Corpuscular Hemoglobin 30.0 PG (27.0-31.0) Mean Corpuscular Hemoglobin Concent 32.5 G/DL (32.0-36.0) Red Cell Distribution Width 18.5 % (11.6-14.8) Platelet Count 130 K/UL (150-450) Mean Platelet Volume 7.0 FL (6.5-10.1) Neutrophils (%) (Auto) 84.9 % (45.0-75.0) Lymphocytes (%) (Auto) 10.8 % (20.0-45.0) Monocytes (%) (Auto) 3.0 % (1.0-10.0) Eosinophils (%) (Auto) 0.5 % (0.0-3.0) Basophils (%) (Auto) 0.9 % (0.0-2.0) Sodium Level 126 MMOL/L (136-145) Potassium Level 3.7 MMOL/L (3.5-5.1) Chloride Level 97 MMOL/L (98-107) Carbon Dioxide Level 11 MMOL/L (21-32) Anion Gap 18 mmol/L (5-15) Blood Urea Nitrogen 46 mg/dL (7-18) Creatinine 2.8 MG/DL (0.55-1.30) Estimat Glomerular Filtration Rate 27.3 mL/min (>60) Glucose Level 120 MG/DL (74-106) Uric Acid 20.0 MG/DL (2.6-7.2) Calcium Level 10.3 MG/DL (8.5-10.1) Phosphorus Level 7.1 MG/DL (2.5-4.9) Total Bilirubin 0.4 MG/DL (0.2-1.0) Aspartate Amino Transf (AST/SGOT) 1050 U/L (15-37) Alanine Aminotransferase (ALT/SGPT) 60 U/L (12-78) Alkaline Phosphatase 95 U/L (46-116) Total Protein 5.7 G/DL (6.4-8.2) Albumin 2.3 G/DL (3.4-5.0) Globulin 3.4 g/dL Albumin/Globulin Ratio 0.7 (1.0-2.7) Height (Feet): 6 Height (Inches): 0.00 Weight (Pounds): 150 Objective PE: Vitals: reviewed General Appearance: NAD HEENT: normocephalic, atraumatic Neck: non-tender, normal alignment Respiratory/Chest: nromal breath sounds bilaterally Cardiovascular/Chest: normal peripheral pulses, normal rate Abdomen: normal bowel sounds, soft, nontender Extremities: normal range of motion Samuel Son MD Jan 09, 2020 06:38
[2020-01-09 08:00] VITALS: BP 143/67
[2020-01-09] MEDS: Benztropine 1mg tab ORAL SCH ×3 (08:49→18:09)
[2020-01-09] MEDS: Pantoprazole Inj IVP SCH ×2 (08:49→20:43)
[2020-01-09] MEDS: Docusate 100mg cap ORAL SCH ×2 (08:49→09:06)
[2020-01-09] MEDS: Heparin 5000 units/ml inj SUBQ SCH ×2 (08:50→21:00)
--- NOTE | 2020-01-09 09:33 | General Progress Note ---
Subjective Allergies: Coded Allergies: No Known Allergies (Unverified , 03/18/19) All Systems: reviewed and negative except above Subjective sleepy calm in bed Objective Last 24 Hour Vital Signs Date Time Temp Pulse Resp B/P (MAP) Pulse Ox O2 Delivery O2 Flow Rate FiO2 01/09/20 08:00 95.0 91 21 143/67 (92) 100 01/09/20 07:49 Room Air 01/09/20 04:00 Room Air 01/09/20 04:00 97.7 90 21 132/75 (94) 100 01/09/20 03:30 90 01/09/20 00:00 Room Air 01/09/20 00:00 96.8 91 18 136/71 (92) 100 01/08/20 23:32 87 01/08/20 20:00 97.2 85 20 137/69 (91) 100 01/08/20 20:00 Room Air 01/08/20 19:28 84 01/08/20 16:00 97.0 86 19 122/75 (91) 100 01/08/20 16:00 Room Air 01/08/20 15:51 85 01/08/20 12:00 Room Air 01/08/20 12:00 85 01/08/20 12:00 97.2 87 17 132/89 (103) 100 Intake and Output 01/08/20 01/09/20 19:00 07:00 Intake Total 1200 ml 1652.5 ml Output Total 475 ml 200 ml Balance 725 ml 1452.5 ml IV Total 1200 ml 1652.5 ml Output Urine Total 475 ml 200 ml Laboratory Tests 01/08/20 11:57: POC Whole Blood Glucose 89 01/08/20 17:09: POC Whole Blood Glucose 109H 01/08/20 20:34: POC Whole Blood Glucose 100 01/09/20 04:20: White Blood Count 4.8, Red Blood Count 2.87L, Hemoglobin 8.6L, Hematocrit 26.5L, Mean Corpuscular Volume 92, Mean Corpuscular Hemoglobin 30.0, Mean Corpuscular Hemoglobin Concent 32.5, Red Cell Distribution Width 18.5H, Platelet Count 130L, Mean Platelet Volume 7.0, Neutrophils (%) (Auto) 84.9H, Lymphocytes (%) (Auto) 10.8L, Monocytes (%) (Auto) 3.0, Eosinophils (%) (Auto) 0.5, Basophils (%) (Auto) 0.9, Sodium Level 126L, Potassium Level 3.7, Chloride Level 97L, Carbon Dioxide Level 11L, Anion Gap 18H, Blood Urea Nitrogen 46H, Creatinine 2.8H, Estimat Glomerular Filtration Rate 27.3, Glucose Level 120H, Uric Acid 20.0H, Calcium Level 10.3H, Phosphorus Level 7.1H, Total Bilirubin 0.4, Aspartate Amino Transf (AST/SGOT) 1050H, Alanine Aminotransferase (ALT/SGPT) 60, Alkaline Phosphatase 95, Total Protein 5.7L, Albumin 2.3L, Globulin 3.4, Albumin/Globulin Ratio 0.7L 01/09/20 05:32: POC Whole Blood Glucose 118H Height (Feet): 6 Height (Inches): 0.00 Weight (Pounds): 150 General Appearance: lethargic EENT: normal ENT inspection Neck: normal alignment Cardiovascular: normal peripheral pulses, normal rate, regular rhythm Respiratory/Chest: chest wall non-tender, lungs clear, normal breath sounds Abdomen: normal bowel sounds, non tender, soft Extremities: normal inspection Edema: no edema noted Arm (L), no edema noted Arm (R), no edema noted Leg (L), no edema noted Leg (R), no edema noted Pedal (L), no edema noted Pedal (R), no edema noted Generalized Neurologic: motor weakness Skin: normal pigmentation, warm/dry Assessment/Plan Problem List: (1) Anemia ICD Codes: D64.9 - Anemia, unspecified SNOMED: 624862156 (2) Paraplegia ICD Codes: G82.20 - Paraplegia, unspecified SNOMED: 85843294 (3) Diabetes ICD Codes: E11.9 - Type 2 diabetes mellitus without complications SNOMED: 90158944 (4) Weak ICD Codes: R53.1 - Weakness SNOMED: 10928264 (5) HTN (hypertension) ICD Codes: I10 - Essential (primary) hypertension SNOMED: 03902145 (6) ARF (acute renal failure) ICD Codes: N17.9 - Acute kidney failure, unspecified SNOMED: 58059375 (7) Altered level of consciousness ICD Codes: R40.4 - Transient alteration of awareness SNOMED: 8435550 (8) Dehydration ICD Codes: E86.0 - Dehydration SNOMED: 38370823 (9) Hypernatremia ICD Codes: E87.0 - Hyperosmolality and hypernatremia SNOMED: 173689427 Status: unchanged Assessment/Plan: o2 pulm tx abx ivf cbc bmp am Farrukh Ríos DO Jan 09, 2020 09:32
--- NOTE | 2020-01-09 09:48 | General Progress Note ---
Subjective ROS Limited/Unobtainable: No Allergies: Coded Allergies: No Known Allergies (Unverified , 03/18/19) Objective Last 24 Hour Vital Signs Date Time Temp Pulse Resp B/P (MAP) Pulse Ox O2 Delivery O2 Flow Rate FiO2 01/09/20 08:00 95.0 91 21 143/67 (92) 100 01/09/20 07:49 Room Air 01/09/20 04:00 Room Air 01/09/20 04:00 97.7 90 21 132/75 (94) 100 01/09/20 03:30 90 01/09/20 00:00 Room Air 01/09/20 00:00 96.8 91 18 136/71 (92) 100 01/08/20 23:32 87 01/08/20 20:00 97.2 85 20 137/69 (91) 100 01/08/20 20:00 Room Air 01/08/20 19:28 84 01/08/20 16:00 97.0 86 19 122/75 (91) 100 01/08/20 16:00 Room Air 01/08/20 15:51 85 01/08/20 12:00 Room Air 01/08/20 12:00 85 01/08/20 12:00 97.2 87 17 132/89 (103) 100 Intake and Output 01/08/20 01/09/20 19:00 07:00 Intake Total 1200 ml 1652.5 ml Output Total 475 ml 200 ml Balance 725 ml 1452.5 ml IV Total 1200 ml 1652.5 ml Output Urine Total 475 ml 200 ml Laboratory Tests 01/08/20 11:57: POC Whole Blood Glucose 89 01/08/20 17:09: POC Whole Blood Glucose 109H 01/08/20 20:34: POC Whole Blood Glucose 100 01/09/20 04:20: White Blood Count 4.8, Red Blood Count 2.87L, Hemoglobin 8.6L, Hematocrit 26.5L, Mean Corpuscular Volume 92, Mean Corpuscular Hemoglobin 30.0, Mean Corpuscular Hemoglobin Concent 32.5, Red Cell Distribution Width 18.5H, Platelet Count 130L, Mean Platelet Volume 7.0, Neutrophils (%) (Auto) 84.9H, Lymphocytes (%) (Auto) 10.8L, Monocytes (%) (Auto) 3.0, Eosinophils (%) (Auto) 0.5, Basophils (%) (Auto) 0.9, Sodium Level 126L, Potassium Level 3.7, Chloride Level 97L, Carbon Dioxide Level 11L, Anion Gap 18H, Blood Urea Nitrogen 46H, Creatinine 2.8H, Estimat Glomerular Filtration Rate 27.3, Glucose Level 120H, Uric Acid 20.0H, Calcium Level 10.3H, Phosphorus Level 7.1H, Total Bilirubin 0.4, Aspartate Amino Transf (AST/SGOT) 1050H, Alanine Aminotransferase (ALT/SGPT) 60, Alkaline Phosphatase 95, Total Protein 5.7L, Albumin 2.3L, Globulin 3.4, Albumin/Globulin Ratio 0.7L 01/09/20 05:32: POC Whole Blood Glucose 118H Height (Feet): 6 Height (Inches): 0.00 Weight (Pounds): 150 General Appearance: alert EENT: normal ENT inspection Neck: supple Cardiovascular: normal rate Respiratory/Chest: decreased breath sounds Abdomen: hypoactive bowel sounds Extremities: non-tender Assessment/Plan Status: unchanged Assessment/Plan: AMS dementia Anemia DM hyper CA elevated AST low albumin COPD RI HTN passed swallow eval, but poor po intake>>> plan NGT placement and NGT feeding for now anemia work up GI procedures on hold fu nephrology and cardiology recs repeat labs fu stool ob bowel regimen on plavix Hematuria over night Paulino Bueno MD Jan 09, 2020 09:48
[2020-01-09] MEDS ORDERED: NaCl 3% 500ml 500 ML IV ONE (10:00)
--- NOTE | 2020-01-09 11:47 | Infectious Diseases Prog Note ---
Assessment/Plan Assessment: COVID19 neg -01/04 rapid COVID PCR neg x1 influenza PCR neg CXR: Mild interstitial vascular prominence. No focal infiltrate or consolidation. Afebrile No leukocytosis -u/a neg Tachycardia, SP-2 ry to severe dehydration- no evidence of infection AVIS, improving Hyponatremia, improving Acute on chronic encephalopathy -CT head: 1. Markedly limited, near nondiagnostic evaluation due to motion artifact. Grossly, age-related changes and small vessel disease of aging are noted. Again grossly, no acute intracranial pathology is detected. If there is a high degree of concern or if there is concern for subtle abnormalities, magnetic resonance imaging of the brain with diffusion-weighted sequences should be performed, due to the markedly limited nature of the current study. Close clinical correlation is necessary. HTN COPD DM2 paraplegia Dementia non verbal [place] resident (elan mora) Plan: -Cont to monitor off abx -01/06 SP Ceftriaxone #2 -01/04 Sp IV Vancomycin x1, Cefepime x1 -f/u cx -Monitor CBC/CMP, temperatures -Renal, cards f/u Thank you for consulting [facility]. Will continue to follow along with you. Discussed with RN. Subjective Allergies: Coded Allergies: No Known Allergies (Unverified , 03/18/19) afebrile no leukocytosis Objective Last 24 Hour Vital Signs Date Time Temp Pulse Resp B/P (MAP) Pulse Ox O2 Delivery O2 Flow Rate FiO2 01/09/20 08:00 95.0 91 21 143/67 (92) 100 01/09/20 08:00 92 01/09/20 07:49 Room Air 01/09/20 04:00 Room Air 01/09/20 04:00 97.7 90 21 132/75 (94) 100 01/09/20 03:30 90 01/09/20 00:00 Room Air 01/09/20 00:00 96.8 91 18 136/71 (92) 100 01/08/20 23:32 87 01/08/20 20:00 97.2 85 20 137/69 (91) 100 01/08/20 20:00 Room Air 01/08/20 19:28 84 01/08/20 16:00 97.0 86 19 122/75 (91) 100 01/08/20 16:00 Room Air 01/08/20 15:51 85 01/08/20 12:00 Room Air 01/08/20 12:00 85 01/08/20 12:00 97.2 87 17 132/89 (103) 100 Height (Feet): 6 Height (Inches): 0.00 Weight (Pounds): 150 GENERAL: Calm in bed, confused, not answering questions. CARDIOVASCULAR: No murmur. LUNGS: Poor exchange. ABDOMEN: Bowel sounds distant. EXTREMITIES: No cyanosis or edema. NEUROLOGIC: The patient moves all extremities, slightly weak. Microbiology Date/Time Source Procedure Growth Status 01/07/20 03:00 Urine,Clean Catch Urine Culture - Preliminary NO GROWTH AFTER 24 HOURS Resulted Laboratory Tests Test 01/08/20 11:57 01/08/20 17:09 01/08/20 20:34 01/09/20 04:20 POC Whole Blood Glucose 89 MG/DL (74-106) 109 MG/DL (74-106) H 100 MG/DL (74-106) White Blood Count 4.8 K/UL (4.8-10.8) Red Blood Count 2.87 M/UL (4.70-6.10) L Hemoglobin 8.6 G/DL (14.2-18.0) L Hematocrit 26.5 % (42.0-52.0) L Mean Corpuscular Volume 92 FL (80-99) Mean Corpuscular Hemoglobin 30.0 PG (27.0-31.0) Mean Corpuscular Hemoglobin Concent 32.5 G/DL (32.0-36.0) Red Cell Distribution Width 18.5 % (11.6-14.8) H Platelet Count 130 K/UL (150-450) L Mean Platelet Volume 7.0 FL (6.5-10.1) Neutrophils (%) (Auto) 84.9 % (45.0-75.0) H Lymphocytes (%) (Auto) 10.8 % (20.0-45.0) L Monocytes (%) (Auto) 3.0 % (1.0-10.0) Eosinophils (%) (Auto) 0.5 % (0.0-3.0) Basophils (%) (Auto) 0.9 % (0.0-2.0) Sodium Level 126 MMOL/L (136-145) L Potassium Level 3.7 MMOL/L (3.5-5.1) Chloride Level 97 MMOL/L (98-107) L Carbon Dioxide Level 11 MMOL/L (21-32) L Anion Gap 18 mmol/L (5-15) H Blood Urea Nitrogen 46 mg/dL (7-18) H Creatinine 2.8 MG/DL (0.55-1.30) H Estimat Glomerular Filtration Rate 27.3 mL/min (>60) Glucose Level 120 MG/DL (74-106) H Uric Acid 20.0 MG/DL (2.6-7.2) H Calcium Level 10.3 MG/DL (8.5-10.1) H Phosphorus Level 7.1 MG/DL (2.5-4.9) H Total Bilirubin 0.4 MG/DL (0.2-1.0) Aspartate Amino Transf (AST/SGOT) 1050 U/L (15-37) H Alanine Aminotransferase (ALT/SGPT) 60 U/L (12-78) Alkaline Phosphatase 95 U/L (46-116) Total Protein 5.7 G/DL (6.4-8.2) L Albumin 2.3 G/DL (3.4-5.0) L Globulin 3.4 g/dL Albumin/Globulin Ratio 0.7 (1.0-2.7) L Test 01/09/20 05:32 01/09/20 11:19 POC Whole Blood Glucose 118 MG/DL (74-106) H 92 MG/DL (74-106) Current Medications Medications (Trade) Dose Ordered Sig/Jesse Route PRN Reason Start Time Stop Time Status Last Admin Dose Admin Acetaminophen (Tylenol) 650 mg Q4H PRN ORAL PRNH/TEMP 01/05/20 20:15 02/04/20 20:14 Albuterol/ Ipratropium (Albuterol/ Ipratropium) 3 ml Q4H PRN HHN Shortness of Breath 01/05/20 20:15 01/10/20 20:14 Albuterol/ Ipratropium (Albuterol/ Ipratropium) 3 ml Q6HRT PRN HHN Shortness of Breath 01/06/20 00:45 01/11/20 00:44 Allopurinol (allopurinoL) 300 mg DAILY ORAL 01/07/20 14:15 02/06/20 14:14 01/09/20 09:05 Barium Sulfate (Varibar Honey) 250 ml NOW PRN RAD 01/06/20 15:30 01/09/20 15:24 Barium Sulfate (Varibar [place]) 240 ml NOW PRN RAD 01/06/20 15:30 01/09/20 15:24 Barium Sulfate (Varibar Pudding) 230 ml NOW PRN RAD 01/06/20 15:30 01/09/20 15:24 Barium Sulfate (Varibar Thin Liquid powder) 148 gm NOW PRN RAD 01/06/20 15:30 01/09/20 15:24 Benztropine Mesylate (Cogentin) 1.5 mg BID ORAL 01/06/20 09:00 02/05/20 08:59 01/09/20 09:06 Bisacodyl (Dulcolax) 10 mg DAILY PRN RECTAL Constipation 01/05/20 20:15 04/04/20 20:14 Clopidogrel Bisulfate (Plavix) 75 mg DAILY ORAL 01/06/20 09:00 02/05/20 08:59 01/08/20 08:22 Dextrose (Dextrose 50%) 25 ml Q30M PRN IV Hypoglycemia 01/05/20 20:15 04/04/20 20:14 Dextrose (Dextrose 50%) 50 ml Q30M PRN IV Hypoglycemia 01/05/20 20:15 04/04/20 20:14 Docusate Sodium (Colace) 200 mg DAILY ORAL 01/06/20 09:00 02/05/20 08:59 01/09/20 09:06 Heparin Sodium (Porcine) (Heparin 5000 units/ml) 5,000 units Q12HR SUBQ 01/07/20 21:00 02/20/20 08:59 01/08/20 08:24 Insulin Aspart (NovoLOG) BEFORE MEALS AND HS SUBQ 01/05/20 21:00 04/04/20 20:59 Linaclotide (Linzess) 290 mcg BEFORE BREAKFAST ORAL 01/10/20 06:30 04/09/20 06:29 Magnesium Hydroxide (Mom) 30 ml QHS PRN ORAL Constipation 01/05/20 20:15 02/04/20 20:14 Mirtazapine (Remeron) 15 mg BEDTIME ORAL 01/08/20 21:00 04/07/20 20:59 Morphine Sulfate (Morphine Sulfate) 2 mg Q4H PRN IVP For Pain 01/06/20 00:45 01/13/20 00:44 Multivitamins (Multivitamins) 1 tab DAILY ORAL 01/06/20 09:00 02/05/20 08:59 01/09/20 09:06 Pantoprazole (Protonix) 40 mg EVERY 12 HOURS IVP 01/05/20 21:00 02/04/20 20:59 01/09/20 08:49 Polyethylene Glycol (Miralax) 17 gm BEDTIME ORAL 01/09/20 21:00 02/08/20 20:59 Sennosides (Senokot) 8.6 mg QHS ORAL 01/05/20 21:00 02/04/20 20:59 01/07/20 20:51 Sodium Chloride 500 ml @ 30 mls/hr ONCE ONCE IV 01/09/20 10:00 01/10/20 02:39 01/09/20 11:12 Sodium Citrate (Bicitra) 30 ml EVERY 6 HOURS ORAL 01/08/20 18:00 02/07/20 17:59 Sodium Phosphate (Fleet's Sodium Phosl Enema) 133 ml EVERY OTHER DAY PRN RECTAL Constipation 01/05/20 20:15 02/04/20 20:14 Tamsulosin HCl (Flomax) 0.4 mg BEDTIME ORAL 01/05/20 21:00 02/04/20 20:59 01/07/20 20:51 Clara Guerin M.D. Jan 09, 2020 11:47
[2020-01-09 12:00] VITALS: BP 128/72
--- NOTE | 2020-01-09 13:25 | Diagnostic Imaging Report ---
Indication: Post nasogastric tube placement Technique: Supine view of the abdomen Comparison: none Findings: Nasogastric tube tip projects at the level gastric antrum. Bowel gas pattern is unremarkable. Impression: Satisfactory nasogastric intubation Findings phoned to patient's nurse at the time of interpretation
--- NOTE | 2020-01-09 15:40 | Cardiac Electrophysiology PN ---
Assessment/Plan Assessment/Plan 1. Altered mental status due to severe dehydration in view of sodium of 160 and acute renal failure. On IV fluids and IV antibiotics.Ruled out for LA 2. History of hypertension. We will hold off on his blood pressure medication at this time. Of note at the [facility], the patient was on amlodipine and metoprolol, but has been discontinued in view of relative hypotension. 3. History of CVA, Plavix DCed in view of hematuria. 4. Advanced dementia. NGT feeding now 5. Diabetes. 6. Acute renal failure. The patient is being hydrated. 7. Hematuria 8. Anemia likely due to hematuria and iv fluid DW RN Subjective Subjective Nonverbal in NAD. Getting iv fluids In SR 95. Stool OB still pending. Plavix DCed a sis having hematuria and HB dropped 2 gms. Objective Last 24 Hour Vital Signs Date Time Temp Pulse Resp B/P (MAP) Pulse Ox O2 Delivery O2 Flow Rate FiO2 01/09/20 12:00 89 01/09/20 12:00 96.4 91 20 128/72 (90) 100 01/09/20 12:00 Room Air 01/09/20 08:00 95.0 91 21 143/67 (92) 100 01/09/20 08:00 92 01/09/20 07:49 Room Air 01/09/20 04:00 Room Air 01/09/20 04:00 97.7 90 21 132/75 (94) 100 01/09/20 03:30 90 01/09/20 00:00 Room Air 01/09/20 00:00 96.8 91 18 136/71 (92) 100 01/08/20 23:32 87 01/08/20 20:00 97.2 85 20 137/69 (91) 100 01/08/20 20:00 Room Air 01/08/20 19:28 84 01/08/20 16:00 97.0 86 19 122/75 (91) 100 01/08/20 16:00 Room Air 01/08/20 15:51 85 Intake and Output 01/08/20 01/09/20 19:00 07:00 Intake Total 1200 ml 1652.5 ml Output Total 475 ml 200 ml Balance 725 ml 1452.5 ml IV Total 1200 ml 1652.5 ml Output Urine Total 475 ml 200 ml Laboratory Tests Test 01/08/20 17:09 01/08/20 20:34 01/09/20 04:20 01/09/20 05:32 POC Whole Blood Glucose 109 MG/DL (74-106) H 100 MG/DL (74-106) 118 MG/DL (74-106) H White Blood Count 4.8 K/UL (4.8-10.8) Red Blood Count 2.87 M/UL (4.70-6.10) L Hemoglobin 8.6 G/DL (14.2-18.0) L Hematocrit 26.5 % (42.0-52.0) L Mean Corpuscular Volume 92 FL (80-99) Mean Corpuscular Hemoglobin 30.0 PG (27.0-31.0) Mean Corpuscular Hemoglobin Concent 32.5 G/DL (32.0-36.0) Red Cell Distribution Width 18.5 % (11.6-14.8) H Platelet Count 130 K/UL (150-450) L Mean Platelet Volume 7.0 FL (6.5-10.1) Neutrophils (%) (Auto) 84.9 % (45.0-75.0) H Lymphocytes (%) (Auto) 10.8 % (20.0-45.0) L Monocytes (%) (Auto) 3.0 % (1.0-10.0) Eosinophils (%) (Auto) 0.5 % (0.0-3.0) Basophils (%) (Auto) 0.9 % (0.0-2.0) Sodium Level 126 MMOL/L (136-145) L Potassium Level 3.7 MMOL/L (3.5-5.1) Chloride Level 97 MMOL/L (98-107) L Carbon Dioxide Level 11 MMOL/L (21-32) L Anion Gap 18 mmol/L (5-15) H Blood Urea Nitrogen 46 mg/dL (7-18) H Creatinine 2.8 MG/DL (0.55-1.30) H Estimat Glomerular Filtration Rate 27.3 mL/min (>60) Glucose Level 120 MG/DL (74-106) H Uric Acid 20.0 MG/DL (2.6-7.2) H Calcium Level 10.3 MG/DL (8.5-10.1) H Phosphorus Level 7.1 MG/DL (2.5-4.9) H Total Bilirubin 0.4 MG/DL (0.2-1.0) Aspartate Amino Transf (AST/SGOT) 1050 U/L (15-37) H Alanine Aminotransferase (ALT/SGPT) 60 U/L (12-78) Alkaline Phosphatase 95 U/L (46-116) Total Protein 5.7 G/DL (6.4-8.2) L Albumin 2.3 G/DL (3.4-5.0) L Globulin 3.4 g/dL Albumin/Globulin Ratio 0.7 (1.0-2.7) L Test 01/09/20 11:19 POC Whole Blood Glucose 92 MG/DL (74-106) Microbiology Date/Time Source Procedure Growth Status 01/07/20 03:00 Urine,Clean Catch Urine Culture - Preliminary NO GROWTH AFTER 24 HOURS Resulted Objective HEAD AND NECK: No JVD.NGT in place LUNGS: Coarse rhonchi. CARDIOVASCULAR: Regular S1 and S2 with no gallop. ABDOMEN: Soft. EXTREMITIES: No pitting edema. Kevin Lopez MD Jan 09, 2020 15:40
[2020-01-09 16:00] VITALS: BP 120/69
--- NOTE | 2020-01-09 16:40 | Nephrology Progress Note ---
Assessment/Plan Problem List: (1) ARF (acute renal failure) (2) Hypernatremia (3) Hypovolemic shock (4) Altered level of consciousness (5) Hypercalcemia (6) Hyperuricemia Assessment Acute renal failure Possible underlying chronic kidney failure Severe dehydration Hypernatremia indicative of severe water deficit Severe hyperuricemia, partly due to dehydration and renal failure Acute metabolic and toxic encephalopathy Mild, malnutrition Anemia Lactic acid, possible sepsis Hypercalcemia Plan January 08: Labs reviewed. IV D5W discontinued. 500 cc 3% saline ordered. NG tube for feeding and for medications. Allopurinol dose increased. Continue to monitor renal parameters serum calcium and phosphorus. January 07: Labs reviewed. Serum calcium remains elevated. Uric acid still elevated. Will give pamidronate 60 mg IV piggyback once for hypercalcemia. Continue to monitor renal parameters. Continue D5W 150 cc an hour. Start Bicitra 30 cc p.o. every 6 hours. Add allopurinol D5W IV hydration Albumin bolus N.p.o. until able to take p.o. Antibiotics Monitor renal parameters monitor calcium, monitor uric acid Objective Objective Last 24 Hour Vital Signs Date Time Temp Pulse Resp B/P (MAP) Pulse Ox O2 Delivery O2 Flow Rate FiO2 01/09/20 16:00 Room Air 01/09/20 12:00 89 01/09/20 12:00 96.4 91 20 128/72 (90) 100 01/09/20 12:00 Room Air 01/09/20 08:00 95.0 91 21 143/67 (92) 100 01/09/20 08:00 92 01/09/20 07:49 Room Air 01/09/20 04:00 Room Air 01/09/20 04:00 97.7 90 21 132/75 (94) 100 01/09/20 03:30 90 01/09/20 00:00 Room Air 01/09/20 00:00 96.8 91 18 136/71 (92) 100 01/08/20 23:32 87 01/08/20 20:00 97.2 85 20 137/69 (91) 100 01/08/20 20:00 Room Air 01/08/20 19:28 84 Intake and Output 01/08/20 01/09/20 19:00 07:00 Intake Total 1200 ml 1652.5 ml Output Total 475 ml 200 ml Balance 725 ml 1452.5 ml IV Total 1200 ml 1652.5 ml Output Urine Total 475 ml 200 ml Laboratory Tests 01/08/20 17:09: POC Whole Blood Glucose 109H 01/08/20 20:34: POC Whole Blood Glucose 100 01/09/20 04:20: White Blood Count 4.8, Red Blood Count 2.87L, Hemoglobin 8.6L, Hematocrit 26.5L, Mean Corpuscular Volume 92, Mean Corpuscular Hemoglobin 30.0, Mean Corpuscular Hemoglobin Concent 32.5, Red Cell Distribution Width 18.5H, Platelet Count 130L, Mean Platelet Volume 7.0, Neutrophils (%) (Auto) 84.9H, Lymphocytes (%) (Auto) 10.8L, Monocytes (%) (Auto) 3.0, Eosinophils (%) (Auto) 0.5, Basophils (%) (Auto) 0.9, Sodium Level 126L, Potassium Level 3.7, Chloride Level 97L, Carbon Dioxide Level 11L, Anion Gap 18H, Blood Urea Nitrogen 46H, Creatinine 2.8H, Estimat Glomerular Filtration Rate 27.3, Glucose Level 120H, Uric Acid 20.0H, Calcium Level 10.3H, Phosphorus Level 7.1H, Total Bilirubin 0.4, Aspartate Amino Transf (AST/SGOT) 1050H, Alanine Aminotransferase (ALT/SGPT) 60, Alkaline Phosphatase 95, Total Protein 5.7L, Albumin 2.3L, Globulin 3.4, Albumin/Globulin Ratio 0.7L 01/09/20 05:32: POC Whole Blood Glucose 118H 01/09/20 11:19: POC Whole Blood Glucose 92 Height (Feet): 6 Height (Inches): 0.00 Weight (Pounds): 150 Dhiraj Biswas MD Jan 09, 2020 16:40
[2020-01-09] MEDS: Sodium Citrate 30ml NG SCH (18:08)
[2020-01-09 20:00] VITALS: BP 126/76
[2020-01-09] MEDS: Sennosides 8.6mg tab ORAL SCH (20:43)
[2020-01-09] MEDS: Miralax 17gm pkt ORAL SCH (20:43)
--- NOTE | 2020-01-09 22:42 | CDS Physician Query ---
Clarification is required for compliance, coding accuracy, and to reflect severity of illness for this patient Dear Danni MarvinO. Date: 01/09/20 CDI/CDS Name: Luiz Daley Clinical Documentation Statement: "69-year-old male from [facility] presented with Dehydration, altered mental status, hypernatremia, tachycardia.." [ H& P Mady Hendrix.O. 01/06/2020] ASSESSMENT: Dehydration, Altered mental status, AVIS, Hypernatremia. Tachycardia, Septic shock, Anemia, Malnutrition, Diabetes, COPD. Renal failure, Weakness, Paraplegia. Clinical Finding Show: 01/04 01/05 01/06 (15:40) (06:25) (04:09) Creatinine 3.1 2.8 2.8 BUN 53 48 48 Medication: Sodium Chloride IV Please Clarify the type of renal failure below: [] Acute Renal Failure w/ Tubular Necrosis [] Acute Renal Failure w/ Cortical Necrosis [] Acute Renal Failure w/ Medullary Necrosis [] Acute Renal Failure (unspecified) [] Other: Present on Admission: [] Yes [] No [] Clinically Undetermined Physician signature Date Please also document in your Progress Notes and/or Discharge Summary and indicate if the condition was present on admission. MTDD
--- NOTE | 2020-01-09 22:43 | Psychiatric Progress Note ---
Psychiatry Progress Note Psychiatry Progress Note Medications Current Medications Medications (Trade) Dose Ordered Sig/Jesse Route PRN Reason Start Time Stop Time Status Last Admin Dose Admin Acetaminophen (Tylenol) 650 mg Q4H PRN ORAL PRNH/TEMP 01/05/20 20:15 02/04/20 20:14 Albuterol/ Ipratropium (Albuterol/ Ipratropium) 3 ml Q4H PRN HHN Shortness of Breath 01/05/20 20:15 01/10/20 20:14 Albuterol/ Ipratropium (Albuterol/ Ipratropium) 3 ml Q6HRT PRN HHN Shortness of Breath 01/06/20 00:45 01/11/20 00:44 Allopurinol (allopurinoL) 300 mg BID NG 01/09/20 18:00 02/06/20 14:14 01/09/20 18:08 Benztropine Mesylate (Cogentin) 1.5 mg BID ORAL 01/06/20 09:00 02/05/20 08:59 01/09/20 18:09 Bisacodyl (Dulcolax) 10 mg DAILY PRN RECTAL Constipation 01/05/20 20:15 04/04/20 20:14 Clopidogrel Bisulfate (Plavix) 75 mg DAILY ORAL 01/06/20 09:00 02/05/20 08:59 01/08/20 08:22 Dextrose (Dextrose 50%) 25 ml Q30M PRN IV Hypoglycemia 01/05/20 20:15 04/04/20 20:14 Dextrose (Dextrose 50%) 50 ml Q30M PRN IV Hypoglycemia 01/05/20 20:15 04/04/20 20:14 Docusate Sodium (Colace) 200 mg DAILY ORAL 01/06/20 09:00 02/05/20 08:59 01/09/20 09:06 Heparin Sodium (Porcine) (Heparin 5000 units/ml) 5,000 units Q12HR SUBQ 01/07/20 21:00 02/20/20 08:59 01/08/20 08:24 Insulin Aspart (NovoLOG) BEFORE MEALS AND HS SUBQ 01/05/20 21:00 04/04/20 20:59 Linaclotide (Linzess) 290 mcg BEFORE BREAKFAST ORAL 01/10/20 06:30 04/09/20 06:29 Magnesium Hydroxide (Mom) 30 ml QHS PRN ORAL Constipation 01/05/20 20:15 02/04/20 20:14 Mirtazapine (Remeron) 15 mg BEDTIME ORAL 01/08/20 21:00 04/07/20 20:59 01/09/20 20:43 Morphine Sulfate (Morphine Sulfate) 2 mg Q4H PRN IVP For Pain 01/06/20 00:45 01/13/20 00:44 Multivitamins (Multivitamins) 1 tab DAILY ORAL 01/06/20 09:00 02/05/20 08:59 01/09/20 09:06 Pantoprazole (Protonix) 40 mg EVERY 12 HOURS IVP 01/05/20 21:00 02/04/20 20:59 01/09/20 20:43 Polyethylene Glycol (Miralax) 17 gm BEDTIME ORAL 01/09/20 21:00 02/08/20 20:59 01/09/20 20:43 Sennosides (Senokot) 8.6 mg QHS ORAL 01/05/20 21:00 02/04/20 20:59 01/09/20 20:43 Sodium Chloride 500 ml @ 30 mls/hr ONCE ONCE IV 01/09/20 10:00 01/10/20 02:39 01/09/20 11:12 Sodium Citrate (Bicitra) 30 ml EVERY 6 HOURS NG 01/09/20 18:00 02/07/20 17:59 01/09/20 18:08 Sodium Phosphate (Fleet's Sodium Phosl Enema) 133 ml EVERY OTHER DAY PRN RECTAL Constipation 01/05/20 20:15 02/04/20 20:14 Neurological/Psychiatric: Reports: anxiety; Denies: no symptoms, depressed, emotional problems, headache, numbness, paresthesia, pre-existing deficit, seizure, tingling, tremors, weakness, other Allergies: Coded Allergies: No Known Allergies (Unverified , 03/18/19) Objective Data Height (Feet): 6 Height (Inches): 0.00 Weight (Pounds): 150 General Appearance: alert, confused, agitated Additional Comments: awake, disoriented. Mood is anxious with agitation. Affect is blunted, congruent with mood. Thought process, there is a paucity of thought content. Thought content, no suicidal or homicidal ideation. Cognition is impaired. Insight and judgment is impaired. Assessment/Plan [place] I: ASSESSMENT: [place] I Dementia. Dementia with behavior disturbance. [place] II Deferred. [place] III Failure to thrive. [place] IV Low. [place] V 20. PLAN: 1. Remeron 15 mg at bedtime to stimulate his appetite. 2. Discussed with the nurse. Status: unchanged Status Narrative ASSESSMENT: [place] I Dementia. Dementia with behavior disturbance. [place] II Deferred. [place] III Failure to thrive. [place] IV Low. [place] V 20. PLAN: 1. Remeron 15 mg at bedtime to stimulate his appetite. 2. Discussed with the nurse. Assessment/Plan: ASSESSMENT: [place] I Dementia. Dementia with behavior disturbance. [place] II Deferred. [place] III Failure to thrive. [place] IV Low. [place] V 20. PLAN: 1. Remeron 15 mg at bedtime to stimulate his appetite. 2. Discussed with the nurse. Toney Bernstein MD Jan 09, 2020 22:43
[2020-01-10] VITALS: BP 115/72
[2020-01-10] MEDS: Sodium Citrate 30ml NG SCH ×4 (00:37→18:36)
[2020-01-10 04:00] VITALS: BP 101/72
[2020-01-10 04:49] LABS: HEMATOCRIT 31.9 % (42.0-52.0); HEMOGLOBIN 10.2 G/DL (14.2-18.0); MEAN CORPUSCULAR VOLUME 93 FL (80-99); PLATELET COUNT 98 K/UL (150-450); RED BLOOD COUNT 3.44 M/UL (4.70-6.10); RED CELL DISTRIBUTION WIDTH 18.6 % (11.6-14.8); WHITE BLOOD COUNT 5.6 K/UL (4.8-10.8)
[2020-01-10] MEDS: NovoLOG Insulin Flexpen SUBQ SCH ×4 (05:34→21:00)
[2020-01-10 05:49] LABS: ALBUMIN 2.1 G/DL (3.4-5.0); ALBUMIN/GLOBULIN RATIO 0.7 (1.0-2.7); BILIRUBIN,TOTAL 0.6 MG/DL (0.2-1.0); CALCIUM 9.5 MG/DL (8.5-10.1); CREATININE 3.7 MG/DL (0.55-1.30); PHOSPHORUS 10.6 MG/DL (2.5-4.9); POTASSIUM 4.6 MMOL/L (3.5-5.1)
--- NOTE | 2020-01-10 06:29 | Hematology/Onc Progress Note ---
Assessment/Plan Assessment/Plan Assessment/Recs # Anemia of chronic disease due to underlying chronic medical issues, multifactorial v Gi bleed --> Anemia workup has been ordered, rule out gi bleed --> No evidence of hemolysis is noted, peripheral smear has been reviewed. --> Hgb goal >7. Transfuse prn. --> Epogen or iron at this time is not particularly indicated --> Medications have been reviewed --> low threshold for gi evaluation in case has occult + --> hgb 10-->9.7-->9.2->10-->8.6 # Thrombocytopenia ongoing, worsened since adm --> plt 150-->98 --> hep and hiv panel --> us abd # Protein caloric malnutrition --> daily calorie counts --> daily weights --> mirtazapine started # Acute renal failure --> continue on ivfs --> as per renal # Hypokalemia --> replete with K # Severe dehydration --> ivfs ongoing # Hypernatremia indicative of severe water deficit # Severe hyperuricemia, partly due to dehydration and renal failure # Acute metabolic and toxic encephalopathy # Mild, malnutrition # Psych issues per psych # Lactic acid, possible sepsis # Dvt ppx heparin sq The timing of this note does not necessarily reflect the time of the patient was seen. Greatly appreciate consultation. Subjective Constitutional: Denies: no symptoms, chills, fever, malaise, weakness, other HEENT: Denies: no symptoms, eye pain, blurred vision, tearing, double vision, ear pain, ear discharge, nose pain, nose congestion, throat pain, throat swel ling, mouth pain, mouth swelling, other Cardiovascular: Denies: no symptoms, chest pain, edema, irregular heart rate, lightheadedness, palpitations, syncope, other Gastrointestinal/Abdominal: Denies: no symptoms, abdomen distended, abdominal pain, black stools, tarry stools, blood in stool, constipated, diarrhea, difficulty swallowing, nausea, poor appetite, poor fluid intake, rectal bleeding, vomiting, other Genitourinary: Denies: no symptoms, burning, discharge, frequency, flank pain, hematuria, incontinence, pain, urgency, other Neurologic/Psychiatric: Denies: no symptoms, anxiety, depressed, emotional problems, headache, numbness, paresthesia, pre-existing deficit, seizure, tingling, tremors, weakness, other Endocrine: Denies: no symptoms, excessive sweating, flushing, intolerance to cold, intolerance to heat, increased hunger, increased thirst, increased urine, unexplained weight gain, unexplained weight loss, other Hematologic/Lymphatic: Denies: no symptoms, anemia, easy bleeding, easy bruising, adenopathy, other Allergies: Coded Allergies: No Known Allergies (Unverified , 03/18/19) Subjective 01/07 meds noted, no bleeding, hgb 10, no hemolysis, hgb 10.1 01/08 labs reviewed, vi rn, no major events, no bleeding, hgb lower 01/09 labs noted, no bleeding, vi rn, no major changes, plt lower Objective Objective Current Medications Medications (Trade) Dose Ordered Sig/Jesse Route PRN Reason Start Time Stop Time Status Last Admin Dose Admin Acetaminophen (Tylenol) 650 mg Q4H PRN ORAL PRNH/TEMP 01/05/20 20:15 02/04/20 20:14 Albuterol/ Ipratropium (Albuterol/ Ipratropium) 3 ml Q4H PRN HHN Shortness of Breath 01/05/20 20:15 01/10/20 20:14 Albuterol/ Ipratropium (Albuterol/ Ipratropium) 3 ml Q6HRT PRN HHN Shortness of Breath 01/06/20 00:45 01/11/20 00:44 Allopurinol (allopurinoL) 300 mg BID NG 01/09/20 18:00 02/06/20 14:14 01/09/20 18:08 Benztropine Mesylate (Cogentin) 1.5 mg BID ORAL 01/06/20 09:00 02/05/20 08:59 01/09/20 18:09 Bisacodyl (Dulcolax) 10 mg DAILY PRN RECTAL Constipation 01/05/20 20:15 04/04/20 20:14 Clopidogrel Bisulfate (Plavix) 75 mg DAILY ORAL 01/06/20 09:00 02/05/20 08:59 01/08/20 08:22 Dextrose (Dextrose 50%) 25 ml Q30M PRN IV Hypoglycemia 01/05/20 20:15 04/04/20 20:14 Dextrose (Dextrose 50%) 50 ml Q30M PRN IV Hypoglycemia 01/05/20 20:15 04/04/20 20:14 Docusate Sodium (Colace) 200 mg DAILY ORAL 01/06/20 09:00 02/05/20 08:59 01/09/20 09:06 Heparin Sodium (Porcine) (Heparin 5000 units/ml) 5,000 units Q12HR SUBQ 01/07/20 21:00 02/20/20 08:59 01/08/20 08:24 Insulin Aspart (NovoLOG) BEFORE MEALS AND HS SUBQ 01/05/20 21:00 04/04/20 20:59 Linaclotide (Linzess) 290 mcg BEFORE BREAKFAST ORAL 01/10/20 06:30 04/09/20 06:29 Magnesium Hydroxide (Mom) 30 ml QHS PRN ORAL Constipation 01/05/20 20:15 02/04/20 20:14 Mirtazapine (Remeron) 15 mg BEDTIME ORAL 01/08/20 21:00 04/07/20 20:59 01/09/20 20:43 Morphine Sulfate (Morphine Sulfate) 2 mg Q4H PRN IVP For Pain 01/06/20 00:45 01/13/20 00:44 Multivitamins (Multivitamins) 1 tab DAILY ORAL 01/06/20 09:00 02/05/20 08:59 01/09/20 09:06 Ondansetron HCl (Zofran) 4 mg Q6H PRN IVP Nausea & Vomiting 01/10/20 06:30 02/09/20 06:29 UNV Pantoprazole (Protonix) 40 mg EVERY 12 HOURS IVP 01/05/20 21:00 02/04/20 20:59 01/09/20 20:43 Polyethylene Glycol (Miralax) 17 gm BEDTIME ORAL 01/09/20 21:00 02/08/20 20:59 01/09/20 20:43 Sennosides (Senokot) 8.6 mg QHS ORAL 01/05/20 21:00 02/04/20 20:59 01/09/20 20:43 Sodium Citrate (Bicitra) 30 ml EVERY 6 HOURS NG 01/09/20 18:00 02/07/20 17:59 01/10/20 05:26 Sodium Phosphate (Fleet's Sodium Phosl Enema) 133 ml EVERY OTHER DAY PRN RECTAL Constipation 01/05/20 20:15 02/04/20 20:14 Last 24 Hour Vital Signs Date Time Temp Pulse Resp B/P (MAP) Pulse Ox O2 Delivery O2 Flow Rate FiO2 01/10/20 04:00 Room Air 01/10/20 04:00 97.2 109 19 101/72 (82) 98 01/10/20 03:29 110 01/10/20 00:00 96.8 110 19 115/72 (86) 100 01/10/20 00:00 Room Air 01/09/20 23:28 110 01/09/20 20:00 Room Air 01/09/20 20:00 96.8 99 21 126/76 (93) 100 01/09/20 19:06 100 01/09/20 19:02 80 20 99 Room Air 21 01/09/20 16:00 Room Air 01/09/20 16:00 97.0 94 18 120/69 (86) 100 01/09/20 16:00 92 01/09/20 12:00 89 01/09/20 12:00 96.4 91 20 128/72 (90) 100 01/09/20 12:00 Room Air 01/09/20 08:00 95.0 91 21 143/67 (92) 100 01/09/20 08:00 92 01/09/20 07:49 Room Air 01/09/20 04:00 Room Air 01/09/20 04:00 97.7 90 21 132/75 (94) 100 01/09/20 03:30 90 01/09/20 00:00 Room Air 01/09/20 00:00 96.8 91 18 136/71 (92) 100 01/08/20 23:32 87 01/08/20 20:00 97.2 85 20 137/69 (91) 100 01/08/20 20:00 Room Air 01/08/20 19:28 84 01/08/20 16:00 97.0 86 19 122/75 (91) 100 01/08/20 16:00 Room Air 01/08/20 15:51 85 01/08/20 12:00 Room Air 01/08/20 12:00 85 01/08/20 12:00 97.2 87 17 132/89 (103) 100 01/08/20 08:15 86 20 99 Room Air 21 01/08/20 08:00 Room Air 01/08/20 08:00 96.3 89 16 139/74 (95) 100 01/08/20 07:15 88 Intake and Output 01/09/20 01/10/20 19:00 07:00 Intake Total 929 ml 375 ml Output Total 150 ml 150 ml Balance 779 ml 225 ml Intake Oral 45 ml Free Water 150 ml IV Total 534 ml 270 ml Tube Feeding 200 ml 105 ml Output Urine Total 150 ml 150 ml Labs Test 01/07/20 11:36 01/07/20 16:15 01/07/20 17:13 01/07/20 21:00 POC Whole Blood Glucose 111 MG/DL (74-106) 73 MG/DL (74-106) 92 MG/DL (74-106) 99 MG/DL (74-106) Test 01/08/20 04:08 01/08/20 05:21 01/08/20 05:37 01/08/20 11:57 White Blood Count 5.3 K/UL (4.8-10.8) Red Blood Count 3.38 M/UL (4.70-6.10) Hemoglobin 10.1 G/DL (14.2-18.0) Hematocrit 33.1 % (42.0-52.0) Mean Corpuscular Volume 98 FL (80-99) Mean Corpuscular Hemoglobin 29.9 PG (27.0-31.0) Mean Corpuscular Hemoglobin Concent 30.6 G/DL (32.0-36.0) Red Cell Distribution Width 19.6 % (11.6-14.8) Platelet Count 161 K/UL (150-450) Mean Platelet Volume 7.0 FL (6.5-10.1) Neutrophils (%) (Auto) 67.6 % (45.0-75.0) Lymphocytes (%) (Auto) 26.1 % (20.0-45.0) Monocytes (%) (Auto) 5.3 % (1.0-10.0) Eosinophils (%) (Auto) 0.3 % (0.0-3.0) Basophils (%) (Auto) 0.7 % (0.0-2.0) Sodium Level 140 MMOL/L (136-145) Potassium Level 4.1 MMOL/L (3.5-5.1) Chloride Level 106 MMOL/L (98-107) Carbon Dioxide Level 12 MMOL/L (21-32) Anion Gap 22 mmol/L (5-15) Blood Urea Nitrogen 45 mg/dL (7-18) Creatinine 2.7 MG/DL (0.55-1.30) Estimat Glomerular Filtration Rate 28.4 mL/min (>60) Glucose Level 103 MG/DL (74-106) Calcium Level 11.5 MG/DL (8.5-10.1) Phosphorus Level 5.1 MG/DL (2.5-4.9) Magnesium Level 2.0 MG/DL (1.8-2.4) Iron Level 56 ug/dL (50-175) Total Iron Binding Capacity 197 ug/dL (250-450) Percent Iron Saturation 28 % (15-50) Unsaturated Iron Binding 141 ug/dL (112-346) Total Bilirubin 0.3 MG/DL (0.2-1.0) Aspartate Amino Transf (AST/SGOT) 277 U/L (15-37) Alanine Aminotransferase (ALT/SGPT) 16 U/L (12-78) Alkaline Phosphatase 67 U/L (46-116) Total Protein 6.7 G/DL (6.4-8.2) Albumin 3.3 G/DL (3.4-5.0) Globulin 3.4 g/dL Albumin/Globulin Ratio 1.0 (1.0-2.7) Carcinoembryonic Antigen 2.9 ng/mL (0.0-4.7) Vitamin B12 Level 1349 PG/ML (193-986) Folate 12.0 NG/ML (8.6-58.9) Uric Acid 24.1 MG/DL (2.6-7.2) POC Whole Blood Glucose 99 MG/DL (74-106) 89 MG/DL (74-106) Test 01/08/20 17:09 01/08/20 20:34 01/09/20 04:20 01/09/20 05:32 POC Whole Blood Glucose 109 MG/DL (74-106) 100 MG/DL (74-106) 118 MG/DL (74-106) White Blood Count 4.8 K/UL (4.8-10.8) Red Blood Count 2.87 M/UL (4.70-6.10) Hemoglobin 8.6 G/DL (14.2-18.0) Hematocrit 26.5 % (42.0-52.0) Mean Corpuscular Volume 92 FL (80-99) Mean Corpuscular Hemoglobin 30.0 PG (27.0-31.0) Mean Corpuscular Hemoglobin Concent 32.5 G/DL (32.0-36.0) Red Cell Distribution Width 18.5 % (11.6-14.8) Platelet Count 130 K/UL (150-450) Mean Platelet Volume 7.0 FL (6.5-10.1) Neutrophils (%) (Auto) 84.9 % (45.0-75.0) Lymphocytes (%) (Auto) 10.8 % (20.0-45.0) Monocytes (%) (Auto) 3.0 % (1.0-10.0) Eosinophils (%) (Auto) 0.5 % (0.0-3.0) Basophils (%) (Auto) 0.9 % (0.0-2.0) Sodium Level 126 MMOL/L (136-145) Potassium Level 3.7 MMOL/L (3.5-5.1) Chloride Level 97 MMOL/L (98-107) Carbon Dioxide Level 11 MMOL/L (21-32) Anion Gap 18 mmol/L (5-15) Blood Urea Nitrogen 46 mg/dL (7-18) Creatinine 2.8 MG/DL (0.55-1.30) Estimat Glomerular Filtration Rate 27.3 mL/min (>60) Glucose Level 120 MG/DL (74-106) Uric Acid 20.0 MG/DL (2.6-7.2) Calcium Level 10.3 MG/DL (8.5-10.1) Phosphorus Level 7.1 MG/DL (2.5-4.9) Total Bilirubin 0.4 MG/DL (0.2-1.0) Aspartate Amino Transf (AST/SGOT) 1050 U/L (15-37) Alanine Aminotransferase (ALT/SGPT) 60 U/L (12-78) Alkaline Phosphatase 95 U/L (46-116) Total Protein 5.7 G/DL (6.4-8.2) Albumin 2.3 G/DL (3.4-5.0) Globulin 3.4 g/dL Albumin/Globulin Ratio 0.7 (1.0-2.7) Test 01/09/20 11:19 01/09/20 17:05 01/09/20 20:55 01/10/20 04:19 POC Whole Blood Glucose 92 MG/DL (74-106) 76 MG/DL (74-106) 81 MG/DL (74-106) White Blood Count 5.6 K/UL (4.8-10.8) Red Blood Count 3.44 M/UL (4.70-6.10) Hemoglobin 10.2 G/DL (14.2-18.0) Hematocrit 31.9 % (42.0-52.0) Mean Corpuscular Volume 93 FL (80-99) Mean Corpuscular Hemoglobin 29.7 PG (27.0-31.0) Mean Corpuscular Hemoglobin Concent 32.0 G/DL (32.0-36.0) Red Cell Distribution Width 18.6 % (11.6-14.8) Platelet Count 98 K/UL (150-450) Mean Platelet Volume 7.6 FL (6.5-10.1) Neutrophils (%) (Auto) % (45.0-75.0) Lymphocytes (%) (Auto) % (20.0-45.0) Monocytes (%) (Auto) % (1.0-10.0) Eosinophils (%) (Auto) % (0.0-3.0) Basophils (%) (Auto) % (0.0-2.0) Sodium Level 132 MMOL/L (136-145) Potassium Level 4.6 MMOL/L (3.5-5.1) Chloride Level 101 MMOL/L (98-107) Carbon Dioxide Level 12 MMOL/L (21-32) Anion Gap 19 mmol/L (5-15) Blood Urea Nitrogen 64 mg/dL (7-18) Creatinine 3.7 MG/DL (0.55-1.30) Estimat Glomerular Filtration Rate 19.8 mL/min (>60) Glucose Level 83 MG/DL (74-106) Uric Acid 19.3 MG/DL (2.6-7.2) Calcium Level 9.5 MG/DL (8.5-10.1) Phosphorus Level 10.6 MG/DL (2.5-4.9) Magnesium Level 2.1 MG/DL (1.8-2.4) Total Bilirubin 0.6 MG/DL (0.2-1.0) Aspartate Amino Transf (AST/SGOT) 2027 U/L (15-37) Alanine Aminotransferase (ALT/SGPT) 185 U/L (12-78) Alkaline Phosphatase 236 U/L (46-116) C-Reactive Protein, Quantitative 16.8 mg/dL (0.00-0.90) Pro-B-Type Natriuretic Peptide 4482 pg/mL (0-125) Total Protein 5.2 G/DL (6.4-8.2) Albumin 2.1 G/DL (3.4-5.0) Globulin 3.1 g/dL Albumin/Globulin Ratio 0.7 (1.0-2.7) Test 01/10/20 05:33 POC Whole Blood Glucose 95 MG/DL (74-106) Height (Feet): 6 Height (Inches): 0.00 Weight (Pounds): 150 Objective PE: Vitals: reviewed General Appearance: NAD HEENT: normocephalic, atraumatic Neck: non-tender, normal alignment Respiratory/Chest: nromal breath sounds bilaterally Cardiovascular/Chest: normal peripheral pulses, normal rate Abdomen: normal bowel sounds, soft, nontender Extremities: normal range of motion Samuel Son MD Jan 10, 2020 06:29
[2020-01-10 07:55] VITALS: BP 116/76
[2020-01-10] MEDS: Heparin 5000 units/ml inj SUBQ SCH ×2 (09:00→21:00)
[2020-01-10] MEDS: Sodium Bicarbonate 50 ML in D5 1/2NS 1,000 ML IV SCH ×2 (09:23→21:23)
[2020-01-10] MEDS: Pantoprazole Inj IVP SCH ×2 (09:24→21:25)
[2020-01-10] MEDS: Benztropine 1mg tab ORAL SCH ×2 (09:24→18:36)
[2020-01-10 09:25] LABS: INR 1.3 (0.9-1.1)
[2020-01-10] MEDS: Docusate 100mg cap ORAL SCH (09:25)
[2020-01-10 09:32] LABS: HEMATOCRIT 29.1 % (42.0-52.0); HEMOGLOBIN 9.4 G/DL (14.2-18.0); MEAN CORPUSCULAR VOLUME 92 FL (80-99); PLATELET COUNT 96 K/UL (150-450); RED BLOOD COUNT 3.17 M/UL (4.70-6.10); RED CELL DISTRIBUTION WIDTH 19.6 % (11.6-14.8); WHITE BLOOD COUNT 4.8 K/UL (4.8-10.8)
--- NOTE | 2020-01-10 09:32 | General Progress Note ---
Subjective ROS Limited/Unobtainable: No Allergies: Coded Allergies: No Known Allergies (Unverified , 03/18/19) Objective Last 24 Hour Vital Signs Date Time Temp Pulse Resp B/P (MAP) Pulse Ox O2 Delivery O2 Flow Rate FiO2 01/10/20 09:12 114 18 96 Room Air 21 01/10/20 07:55 96.4 116 21 116/76 (89) 97 01/10/20 04:00 Room Air 01/10/20 04:00 97.2 109 19 101/72 (82) 98 01/10/20 03:29 110 01/10/20 00:00 96.8 110 19 115/72 (86) 100 01/10/20 00:00 Room Air 01/09/20 23:28 110 01/09/20 20:00 Room Air 01/09/20 20:00 96.8 99 21 126/76 (93) 100 01/09/20 19:06 100 01/09/20 19:02 80 20 99 Room Air 21 01/09/20 16:00 Room Air 01/09/20 16:00 97.0 94 18 120/69 (86) 100 01/09/20 16:00 92 01/09/20 12:00 89 01/09/20 12:00 96.4 91 20 128/72 (90) 100 01/09/20 12:00 Room Air Intake and Output 0 01/09/20 01/10/20 19:00 07:00 Intake Total 929 ml 375 ml Output Total 150 ml 150 ml Balance 779 ml 225 ml Intake Oral 45 ml Free Water 150 ml IV Total 534 ml 270 ml Tube Feeding 200 ml 105 ml Output Urine Total 150 ml 150 ml Laboratory Tests 01/09/20 11:19: POC Whole Blood Glucose 92 01/09/20 17:05: POC Whole Blood Glucose 76 01/09/20 20:55: POC Whole Blood Glucose 81 01/10/20 04:19: White Blood Count 5.6, Red Blood Count 3.44L, Hemoglobin 10.2L, Hematocrit 31.9L , Mean Corpuscular Volume 93, Mean Corpuscular Hemoglobin 29.7, Mean Corpuscular Hemoglobin Concent 32.0, Red Cell Distribution Width 18.6H, Platelet Count 98L, Mean Platelet Volume 7.6, Neutrophils (%) (Auto) , Lymphocytes (%) (Auto) , Monocytes (%) (Auto) , Eosinophils (%) (Auto) , Basophils (%) (Auto) , Sodium Level 132L, Potassium Level 4.6, Chloride Level 101, Carbon Dioxide Level 12L, Anion Gap 19H, Blood Urea Nitrogen 64H, Creatinine 3.7H, Estimat Glomerular Filtration Rate 19.8, Glucose Level 83, Uric Acid 19.3H, Calcium Level 9.5, Phosphorus Level 10.6H, Magnesium Level 2.1, Total Bilirubin 0.6, Aspartate Amino Transf (AST/SGOT) 2027H, Alanine Aminotransferase (ALT/SGPT) 185H, Alkaline Phosphatase 236H, C-Reactive Protein, Quantitative 16.8H, Pro-B-Type Natriuretic Peptide 4482H, Total Protein 5.2L, Albumin 2.1L, Globulin 3.1, Albumin/Globulin Ratio 0.7L 01/10/20 05:33: POC Whole Blood Glucose 95 01/10/20 08:30: White Blood Count [Pending], Red Blood Count [Pending], Hemoglobin [Pending], Hematocrit [Pending], Mean Corpuscular Volume [Pending], Mean Corpuscular Hemoglobin [Pending], Mean Corpuscular Hemoglobin Concent [Pending], Red Cell Distribution Width [Pending], Platelet Count [Pending], Mean Platelet Volume [Pending], Neutrophils (%) (Auto) [Pending], Lymphocytes (%) (Auto) [Pending], Monocytes (%) (Auto) [Pending], Eosinophils (%) (Auto) [Pending], Basophils (%) (Auto) [Pending], Prothrombin Time [Pending], Prothromb Time International Ratio [Pending] Height (Feet): 6 Height (Inches): 0.00 Weight (Pounds): 150 General Appearance: lethargic EENT: normal ENT inspection Neck: supple Cardiovascular: normal rate Respiratory/Chest: decreased breath sounds Abdomen: normal bowel sounds, non tender, soft Extremities: non-tender Assessment/Plan Status: unchanged Assessment/Plan: AMS dementia Anemia DM hyper CA elevated AST low albumin COPD RI HTN passed swallow eval, but poor po intake>>> NGT feeding for now anemia work up GI procedures on hold fu nephrology and cardiology recs repeat labs fu stool ob bowel regimen on plavix>>>on hold due to nose bleed over night Paulino Bueno MD Jan 10, 2020 09:31
--- NOTE | 2020-01-10 11:30 | Nephrology Progress Note ---
Assessment/Plan Problem List: (1) ARF (acute renal failure) (2) Hypernatremia (3) Hypovolemic shock (4) Altered level of consciousness (5) Hypercalcemia (6) Hyperuricemia Assessment Acute renal failure Possible underlying chronic kidney failure Severe dehydration Hypernatremia indicative of severe water deficit Severe hyperuricemia, partly due to dehydration and renal failure Acute metabolic and toxic encephalopathy Mild, malnutrition Anemia Lactic acid, possible sepsis Hypercalcemia Plan January 09: Labs reviewed. IV D5 and a half with sodium bicarb initiated. Serum creatinine higher. Continue to monitor renal parameters. NG feeding was changed to Nepro. Patient remains full code. Poor prognosis. January 08: Labs reviewed. IV D5W discontinued. 500 cc 3% saline ordered. NG tube for feeding and for medications. Allopurinol dose increased. Continue to monitor renal parameters serum calcium and phosphorus. January 07: Labs reviewed. Serum calcium remains elevated. Uric acid still elevated. Will give pamidronate 60 mg IV piggyback once for hypercalcemia. Continue to monitor renal parameters. Continue D5W 150 cc an hour. Start Bicitra 30 cc p.o. every 6 hours. Add allopurinol D5W IV hydration Albumin bolus N.p.o. until able to take p.o. Antibiotics Monitor renal parameters monitor calcium, monitor uric acid Subjective ROS Limited/Unobtainable: Yes Objective Objective Last 24 Hour Vital Signs Date Time Temp Pulse Resp B/P (MAP) Pulse Ox O2 Delivery O2 Flow Rate FiO2 01/10/20 09:12 114 18 96 Room Air 01/10/20 07:55 96.4 116 21 116/76 (89) 97 01/10/20 04:00 Room Air 01/10/20 04:00 97.2 109 19 101/72 (82) 98 01/10/20 03:29 110 01/10/20 00:00 96.8 110 19 115/72 (86) 100 01/10/20 00:00 Room Air 01/09/20 23:28 110 01/09/20 20:00 Room Air 01/09/20 20:00 96.8 99 21 126/76 (93) 100 01/09/20 19:06 100 01/09/20 19:02 80 20 99 Room Air 21 01/09/20 16:00 Room Air 01/09/20 16:00 97.0 94 18 120/69 (86) 100 01/09/20 16:00 92 01/09/20 12:00 89 01/09/20 12:00 96.4 91 20 128/72 (90) 100 01/09/20 12:00 Room Air Intake and Output 01/09/20 01/10/20 19:00 07:00 Intake Total 929 ml 375 ml Output Total 150 ml 150 ml Balance 779 ml 225 ml Intake Oral 45 ml Free Water 150 ml IV Total 534 ml 270 ml Tube Feeding 200 ml 105 ml Output Urine Total 150 ml 150 ml Current Medications Medications (Trade) Dose Ordered Sig/Jesse Route PRN Reason Start Time Stop Time Status Last Admin Dose Admin Acetaminophen (Tylenol) 650 mg Q4H PRN ORAL PRNH/TEMP 01/05/20 20:15 02/04/20 20:14 Albuterol/ Ipratropium (Albuterol/ Ipratropium) 3 ml Q4H PRN HHN Shortness of Breath 01/05/20 20:15 01/10/20 20:14 Albuterol/ Ipratropium (Albuterol/ Ipratropium) 3 ml Q6HRT PRN HHN Shortness of Breath 01/06/20 00:45 01/11/20 00:44 Allopurinol (allopurinoL) 300 mg BID NG 01/09/20 18:00 02/06/20 14:14 01/10/20 09:25 Benztropine Mesylate (Cogentin) 1.5 mg BID ORAL 01/06/20 09:00 02/05/20 08:59 01/10/20 09:24 Bisacodyl (Dulcolax) 10 mg DAILY PRN RECTAL Constipation 01/05/20 20:15 04/04/20 20:14 Clopidogrel Bisulfate (Plavix) 75 mg DAILY ORAL 01/06/20 09:00 02/05/20 08:59 01/08/20 08:22 Dextrose (Dextrose 50%) 25 ml Q30M PRN IV Hypoglycemia 01/05/20 20:15 04/04/20 20:14 Dextrose (Dextrose 50%) 50 ml Q30M PRN IV Hypoglycemia 01/05/20 20:15 04/04/20 20:14 Docusate Sodium (Colace) 200 mg DAILY ORAL 01/06/20 09:00 02/05/20 08:59 01/10/20 09:25 Heparin Sodium (Porcine) (Heparin 5000 units/ml) 5,000 units Q12HR SUBQ 01/07/20 21:00 02/20/20 08:59 01/08/20 08:24 Insulin Aspart (NovoLOG) BEFORE MEALS AND HS SUBQ 01/05/20 21:00 04/04/20 20:59 Linaclotide (Linzess) 290 mcg BEFORE BREAKFAST ORAL 01/10/20 06:30 04/09/20 06:29 Magnesium Hydroxide (Mom) 30 ml QHS PRN ORAL Constipation 01/05/20 20:15 02/04/20 20:14 Mirtazapine (Remeron) 15 mg BEDTIME ORAL 01/08/20 21:00 04/07/20 20:59 01/09/20 20:43 Morphine Sulfate (Morphine Sulfate) 2 mg Q4H PRN IVP For Pain 01/06/20 00:45 01/13/20 00:44 Multivitamins (Multivitamins) 1 tab DAILY ORAL 01/06/20 09:00 02/05/20 08:59 01/10/20 09:24 Ondansetron HCl (Zofran) 4 mg Q6H PRN IVP Nausea & Vomiting 01/10/20 06:30 02/09/20 06:29 Pantoprazole (Protonix) 40 mg EVERY 12 HOURS IVP 01/05/20 21:00 02/04/20 20:59 01/10/20 09:24 Polyethylene Glycol (Miralax) 17 gm BEDTIME ORAL 01/09/20 21:00 02/08/20 20:59 01/09/20 20:43 Sennosides (Senokot) 8.6 mg QHS ORAL 01/05/20 21:00 02/04/20 20:59 01/09/20 20:43 Sodium Bicarbonate 50 ml/ Dextrose/Sodium Chloride 1,050 ml @ 100 mls/hr [id number] IV 01/10/20 09:00 02/09/20 08:59 01/10/20 09:23 Sodium Citrate (Bicitra) 30 ml EVERY 6 HOURS NG 01/09/20 18:00 02/07/20 17:59 01/10/20 05:26 Sodium Phosphate (Fleet's Sodium Phosl Enema) 133 ml EVERY OTHER DAY PRN RECTAL Constipation 01/05/20 20:15 02/04/20 20:14 Laboratory Tests 01/09/20 17:05: POC Whole Blood Glucose 76 01/09/20 20:55: POC Whole Blood Glucose 81 01/10/20 04:19: White Blood Count 5.6, Red Blood Count 3.44L, Hemoglobin 10.2L, Hematocrit 31.9L , Mean Corpuscular Volume 93, Mean Corpuscular Hemoglobin 29.7, Mean Corpuscular Hemoglobin Concent 32.0, Red Cell Distribution Width 18.6H, Platelet Count 98L, Mean Platelet Volume 7.6, Neutrophils (%) (Auto) , Lymphocytes (%) (Auto) , Monocytes (%) (Auto) , Eosinophils (%) (Auto) , Basophils (%) (Auto) , Sodium Level 132L, Potassium Level 4.6, Chloride Level 101, Carbon Dioxide Level 12L, Anion Gap 19H, Blood Urea Nitrogen 64H, Creatinine 3.7H, Estimat Glomerular Filtration Rate 19.8, Glucose Level 83, Uric Acid 19.3H, Calcium Level 9.5, Phosphorus Level 10.6H, Magnesium Level 2.1, Total Bilirubin 0.6, Aspartate Amino Transf (AST/SGOT) 2027H, Alanine Aminotransferase (ALT/SGPT) 185H, Alkaline Phosphatase 236H, C-Reactive Protein, Quantitative 16.8H, Pro-B-Type Natriuretic Peptide 4482H, Total Protein 5.2L, Albumin 2.1L, Globulin 3.1, Albumin/Globulin Ratio 0.7L 01/10/20 05:33: POC Whole Blood Glucose 95 01/10/20 08:30: White Blood Count 4.8, Red Blood Count 3.17L, Hemoglobin 9.4L, Hematocrit 29.1L, Mean Corpuscular Volume 92, Mean Corpuscular Hemoglobin 29.6, Mean Corpuscular Hemoglobin Concent 32.3, Red Cell Distribution Width 19.6H, Platelet Count 96L, Mean Platelet Volume 9.1, Neutrophils (%) (Auto) , Lymphocytes (%) (Auto) , Monocytes (%) (Auto) , Eosinophils (%) (Auto) , Basophils (%) (Auto) , Differe ntial Total Cells Counted 100, Neutrophils % (Manual) 64, Lymphocytes % (Manual) 13L, Monocytes % (Manual) 6, Eosinophils % (Manual) 1, Basophils % (Manual) 0, Band Neutrophils 16H, Nucleated Red Blood Cells 1, Platelet Estimate DecreasedL, Platelet Morphology Normal, Polychromasia 1+, Anisocytosis 2+, Prothrombin Time 14.0H, Prothromb Time International Ratio 1.3H Height (Feet): 6 Height (Inches): 0.00 Weight (Pounds): 150 General Appearance: no apparent distress EENT: other - NG tube in place Cardiovascular: tachycardia Respiratory/Chest: decreased breath sounds Abdomen: distended Dhiraj Biswas MD Jan 10, 2020 11:30
[2020-01-10 12:00] VITALS: BP 115/61
--- NOTE | 2020-01-10 13:31 | Diagnostic Imaging Report ---
Indication: Abdominal pain. Abnormal liver function tests Technique: Rodriguez-scale and duplex images of the upper abdomen were obtained Comparison: No comparison abdominal sonograms. Reference made to renal ultrasound dated 03/20/2019 Findings: Gallbladder demonstrates sludge. No stones, wall thickening, nor pericholecystic fluid. Patient unable to report Wilson's sign Common bile duct measures 3 mm in diameter. No intrahepatic biliary ductal dilatation. Liver demonstrates coarsened echogenicity and surface nodularity. It demonstrates multiple cysts. Portal vein and hepatic veins are patent. The pancreas demonstrates 3 hypoechoic lesions in the head and body, measuring approximately 5 mm in diameter each. Spleen is unremarkable, poorly visualized. Left kidney measures 11.4 cm in length. Right kidney measures 11.3 cm length. Both kidneys demonstrate normal echogenicity. There is severe right and moderate left hydronephrosis. Echogenic foci are seen in the left renal sinus and collecting system. Bladder is empty, contains a Mathew catheter. Non-aneurysmal abdominal aorta . There are bilateral pleural effusions Impression: Bilateral right greater than left hydronephrosis, increased since prior study of 03/20/2019. Etiology not demonstrated Empty bladder with a Mathew catheter 3 hypoechoic lesions within the pancreatic head and body, each measuring about 5 mm. Appearance nonspecific. Recommend further evaluation with pancreas protocol MRI Bilateral pleural effusions Echogenic liver, consistent with hepatocellular disease. Surface likely nodularity raises concern for cirrhosis Gallbladder sludge. Negative for dilated bile ducts Probable nonobstructive left intrarenal calculi Multiple hepatic cysts
--- NOTE | 2020-01-10 14:07 | Infectious Diseases Prog Note ---
Assessment/Plan Assessment: COVID19 neg -01/04 rapid COVID PCR neg x1 influenza PCR neg CXR: Mild interstitial vascular prominence. No focal infiltrate or consolidation. Afebrile No leukocytosis -u/a neg, ucx neg Tachycardia, SP-2 ry to severe dehydration- no evidence of infection AVIS,worsened Hypernatremia>Hyponatremia R>L hydronephrosis Pancreatic lesions -Abd US: Bilateral right greater than left hydronephrosis, increased since prior study of 03/20/2019. Etiology not demonstrated. Empty bladder with a Mathew catheter. 3 hypoechoic lesions within the pancreatic head and body, each measuring about 5 mm. Appearance nonspecific. Bilateral pleural effusions. Echogenic liver, consistent with hepatocellular disease. Surface likely nodularity raises concern for cirrhosis. Gallbladder sludge. Negative for dilated bile ducts. Probable nonobstructive left intrarenal calculi. Multiple hepatic cysts Acute on chronic encephalopathy -CT head: 1. Markedly limited, near nondiagnostic evaluation due to motion artifact. Grossly, age-related changes and small vessel disease of aging are noted. Again grossly, no acute intracranial pathology is detected. If there is a high degree of concern or if there is concern for subtle abnormalities, magne tic resonance imaging of the brain with diffusion-weighted sequences should be performed, due to the markedly limited nature of the current study. Close clinical correlation is necessary. HTN COPD DM2 paraplegia Dementia non verbal [place] resident (elan mora) Plan: -Cont to monitor off abx -01/06 SP Ceftriaxone #2 -01/04 Sp IV Vancomycin x1, Cefepime x1 -f/u cx -Monitor CBC/CMP, temperatures -Renal, cards f/u Thank you for consulting [facility]. Will continue to follow along with you. Discussed with RN. Subjective Allergies: Coded Allergies: No Known Allergies (Unverified , 03/18/19) afebrile no leukocytosis cr increased Objective Last 24 Hour Vital Signs Date Time Temp Pulse Resp B/P (MAP) Pulse Ox O2 Delivery O2 Flow Rate FiO2 01/10/20 12:00 Room Air 01/10/20 12:00 97.3 107 21 115/61 (79) 99 01/10/20 09:12 114 18 96 Room Air 21 01/10/20 08:00 Room Air 01/10/20 07:55 96.4 116 21 116/76 (89) 97 01/10/20 07:48 120 01/10/20 04:00 Room Air 01/10/20 04:00 97.2 109 19 101/72 (82) 98 01/10/20 03:29 110 01/10/20 00:00 96.8 110 19 115/72 (86) 100 01/10/20 00:00 Room Air 01/09/20 23:28 110 01/09/20 20:00 Room Air 01/09/20 20:00 96.8 99 21 126/76 (93) 100 01/09/20 19:06 100 01/09/20 19:02 80 20 99 Room Air 21 01/09/20 16:00 Room Air 01/09/20 16:00 97.0 94 18 120/69 (86) 100 01/09/20 16:00 92 Height (Feet): 6 Height (Inches): 0.00 Weight (Pounds): 150 GENERAL: Calm in bed, confused, not answering questions. CARDIOVASCULAR: No murmur. LUNGS: Poor exchange. ABDOMEN: Bowel sounds distant. EXTREMITIES: No cyanosis or edema. NEUROLOGIC: The patient moves all extremities, slightly weak. Laboratory Tests Test 01/09/20 17:05 01/09/20 20:55 01/10/20 04:19 01/10/20 05:33 POC Whole Blood Glucose 76 MG/DL (74-106) 81 MG/DL (74-106) 95 MG/DL (74-106) White Blood Count 5.6 K/UL (4.8-10.8) Red Blood Count 3.44 M/UL (4.70-6.10) L Hemoglobin 10.2 G/DL (14.2-18.0) L Hematocrit 31.9 % (42.0-52.0) L Mean Corpuscular Volume 93 FL (80-99) Mean Corpuscular Hemoglobin 29.7 PG (27.0-31.0) Mean Corpuscular Hemoglobin Concent 32.0 G/DL (32.0-36.0) Red Cell Distribution Width 18.6 % (11.6-14.8) H Platelet Count 98 K/UL (150-450) L Mean Platelet Volume 7.6 FL (6.5-10.1) Neutrophils (%) (Auto) % (45.0-75.0) Lymphocytes (%) (Auto) % (20.0-45.0) Monocytes (%) (Auto) % (1.0-10.0) Eosinophils (%) (Auto) % (0.0-3.0) Basophils (%) (Auto) % (0.0-2.0) Sodium Level 132 MMOL/L (136-145) L Potassium Level 4.6 MMOL/L (3.5-5.1) Chloride Level 101 MMOL/L (98-107) Carbon Dioxide Level 12 MMOL/L (21-32) L Anion Gap 19 mmol/L (5-15) H Blood Urea Nitrogen 64 mg/dL (7-18) H Creatinine 3.7 MG/DL (0.55-1.30) H Estimat Glomerular Filtration Rate 19.8 mL/min (>60) Glucose Level 83 MG/DL (74-106) Uric Acid 19.3 MG/DL (2.6-7.2) H Calcium Level 9.5 MG/DL (8.5-10.1) Phosphorus Level 10.6 MG/DL (2.5-4.9) H Magnesium Level 2.1 MG/DL (1.8-2.4) Total Bilirubin 0.6 MG/DL (0.2-1.0) Aspartate Amino Transf (AST/SGOT) 2027 U/L (15-37) H Alanine Aminotransferase (ALT/SGPT) 185 U/L (12-78) H Alkaline Phosphatase 236 U/L (46-116) H C-Reactive Protein, Quantitative 16.8 mg/dL (0.00-0.90) H Pro-B-Type Natriuretic Peptide 4482 pg/mL (0-125) H Total Protein 5.2 G/DL (6.4-8.2) L Albumin 2.1 G/DL (3.4-5.0) L Globulin 3.1 g/dL Albumin/Globulin Ratio 0.7 (1.0-2.7) L Test 01/10/20 08:30 01/10/20 12:12 White Blood Count 4.8 K/UL (4.8-10.8) Red Blood Count 3.17 M/UL (4.70-6.10) L Hemoglobin 9.4 G/DL (14.2-18.0) L Hematocrit 29.1 % (42.0-52.0) L Mean Corpuscular Volume 92 FL (80-99) Mean Corpuscular Hemoglobin 29.6 PG (27.0-31.0) Mean Corpuscular Hemoglobin Concent 32.3 G/DL (32.0-36.0) Red Cell Distribution Width 19.6 % (11.6-14.8) H Platelet Count 96 K/UL (150-450) L Mean Platelet Volume 9.1 FL (6.5-10.1) Neutrophils (%) (Auto) % (45.0-75.0) Lymphocytes (%) (Auto) % (20.0-45.0) Monocytes (%) (Auto) % (1.0-10.0) Eosinophils (%) (Auto) % (0.0-3.0) Basophils (%) (Auto) % (0.0-2.0) Differential Total Cells Counted 100 Neutrophils % (Manual) 64 % (45-75) Lymphocytes % (Manual) 13 % (20-45) L Monocytes % (Manual) 6 % (1-10) Eosinophils % (Manual) 1 % (0-3) Basophils % (Manual) 0 % (0-2) Band Neutrophils 16 % (0-8) H Nucleated Red Blood Cells 1 /100 WBC Platelet Estimate Decreased L Platelet Morphology Normal Polychromasia 1+ Anisocytosis 2+ Prothrombin Time 14.0 SEC (9.30-11.50) H Prothromb Time International Ratio 1.3 (0.9-1.1) H POC Whole Blood Glucose 136 MG/DL (74-106) H Current Medications Medications (Trade) Dose Ordered Sig/Jesse Route PRN Reason Start Time Stop Time Status Last Admin Dose Admin Acetaminophen (Tylenol) 650 mg Q4H PRN ORAL PRNH/TEMP 01/05/20 20:15 02/04/20 20:14 Albuterol/ Ipratropium (Albuterol/ Ipratropium) 3 ml Q4H PRN HHN Shortness of Breath 01/05/20 20:15 01/10/20 20:14 Albuterol/ Ipratropium (Albuterol/ Ipratropium) 3 ml Q6HRT PRN HHN Shortness of Breath 01/06/20 00:45 01/11/20 00:44 Allopurinol (allopurinoL) 300 mg BID NG 01/09/20 18:00 02/06/20 14:14 01/10/20 09:25 Benztropine Mesylate (Cogentin) 1.5 mg BID ORAL 01/06/20 09:00 02/05/20 08:59 01/10/20 09:24 Bisacodyl (Dulcolax) 10 mg DAILY PRN RECTAL Constipation 01/05/20 20:15 04/04/20 20:14 Clopidogrel Bisulfate (Plavix) 75 mg DAILY ORAL 01/06/20 09:00 02/05/20 08:59 01/08/20 08:22 Dextrose (Dextrose 50%) 25 ml Q30M PRN IV Hypoglycemia 01/05/20 20:15 04/04/20 20:14 Dextrose (Dextrose 50%) 50 ml Q30M PRN IV Hypoglycemia 01/05/20 20:15 04/04/20 20:14 Docusate Sodium (Colace) 200 mg DAILY ORAL 01/06/20 09:00 02/05/20 08:59 01/10/20 09:25 Heparin Sodium (Porcine) (Heparin 5000 units/ml) 5,000 units Q12HR SUBQ 01/07/20 21:00 02/20/20 08:59 01/08/20 08:24 Insulin Aspart (NovoLOG) BEFORE MEALS AND HS SUBQ 01/05/20 21:00 04/04/20 20:59 Linaclotide (Linzess) 290 mcg BEFORE BREAKFAST ORAL 01/10/20 06:30 04/09/20 06:29 Mirtazapine (Remeron) 15 mg BEDTIME ORAL 01/08/20 21:00 04/07/20 20:59 01/09/20 20:43 Morphine Sulfate (Morphine Sulfate) 2 mg Q4H PRN IVP For Pain 01/06/20 00:45 01/13/20 00:44 Ondansetron HCl (Zofran) 4 mg Q6H PRN IVP Nausea & Vomiting 01/10/20 06:30 02/09/20 06:29 Pantoprazole (Protonix) 40 mg EVERY 12 HOURS IVP 01/05/20 21:00 02/04/20 20:59 01/10/20 09:24 Polyethylene Glycol (Miralax) 17 gm BEDTIME ORAL 01/09/20 21:00 02/08/20 20:59 01/09/20 20:43 Sennosides (Senokot) 8.6 mg QHS ORAL 01/05/20 21:00 02/04/20 20:59 01/09/20 20:43 Sodium Bicarbonate 50 ml/ Dextrose/Sodium Chloride 1,050 ml @ 100 mls/hr [id number] IV 01/10/20 09:00 02/09/20 08:59 01/10/20 09:23 Sodium Citrate (Bicitra) 30 ml EVERY 6 HOURS NG 01/09/20 18:00 02/07/20 17:59 01/10/20 12:54 Clara Guerin M.D. Jan 10, 2020 14:07
--- NOTE | 2020-01-10 14:13 | General Progress Note ---
Subjective Constitutional: Reports: weakness Allergies: Coded Allergies: No Known Allergies (Unverified , 03/18/19) All Systems: reviewed and negative except above Subjective sleepy calm in bed Objective Last 24 Hour Vital Signs Date Time Temp Pulse Resp B/P (MAP) Pulse Ox O2 Delivery O2 Flow Rate FiO2 01/10/20 12:00 Room Air 01/10/20 12:00 97.3 107 21 115/61 (79) 99 01/10/20 09:12 114 18 96 Room Air 21 01/10/20 08:00 Room Air 01/10/20 07:55 96.4 116 21 116/76 (89) 97 01/10/20 07:48 120 01/10/20 04:00 Room Air 01/10/20 04:00 97.2 109 19 101/72 (82) 98 01/10/20 03:29 110 01/10/20 00:00 96.8 110 19 115/72 (86) 100 01/10/20 00:00 Room Air 01/09/20 23:28 110 01/09/20 20:00 Room Air 01/09/20 20:00 96.8 99 21 126/76 (93) 100 01/09/20 19:06 100 01/09/20 19:02 80 20 99 Room Air 21 01/09/20 16:00 Room Air 01/09/20 16:00 97.0 94 18 120/69 (86) 100 01/09/20 16:00 92 Intake and Output 01/09/20 01/10/20 19:00 07:00 Intake Total 929 ml 375 ml Output Total 150 ml 150 ml Balance 779 ml 225 ml Intake Oral 45 ml Free Water 150 ml IV Total 534 ml 270 ml Tube Feeding 200 ml 105 ml Output Urine Total 150 ml 150 ml Laboratory Tests 01/09/20 17:05: POC Whole Blood Glucose 76 01/09/20 20:55: POC Whole Blood Glucose 81 01/10/20 04:19: White Blood Count 5.6, Red Blood Count 3.44L, Hemoglobin 10.2L, Hematocrit 31.9L , Mean Corpuscular Volume 93, Mean Corpuscular Hemoglobin 29.7, Mean Corpuscular Hemoglobin Concent 32.0, Red Cell Distribution Width 18.6H, Platelet Count 98L, Mean Platelet Volume 7.6, Neutrophils (%) (Auto) , Lymphocytes (%) (Auto) , Monocytes (%) (Auto) , Eosinophils (%) (Auto) , Basophils (%) (Auto) , Sodium Level 132L, Potassium Level 4.6, Chloride Level 101, Carbon Dioxide Level 12L, Anion Gap 19H, Blood Urea Nitrogen 64H, Creatinine 3.7H, Estimat Glomerular Filtration Rate 19.8, Glucose Level 83, Uric Acid 19.3H, Calcium Level 9.5, Phosphorus Level 10.6H, Magnesium Level 2.1, Total Bilirubin 0.6, Aspartate Amino Transf (AST/SGOT) 2027H, Alanine Aminotransferase (ALT/SGPT) 185H, Alkaline Phosphatase 236H, C-Reactive Protein, Quantitative 16.8H, Pro-B-Type Natriuretic Peptide 4482H, Total Protein 5.2L, Albumin 2.1L, Globulin 3.1, Albumin/Globulin Ratio 0.7L 01/10/20 05:33: POC Whole Blood Glucose 95 01/10/20 08:30: White Blood Count 4.8, Red Blood Count 3.17L, Hemoglobin 9.4L, Hematocrit 29.1L, Mean Corpuscular Volume 92, Mean Corpuscular Hemoglobin 29.6, Mean Corpuscular Hemoglobin Concent 32.3, Red Cell Distribution Width 19.6H, Platelet Count 96L, Mean Platelet Volume 9.1, Neutrophils (%) (Auto) , Lymphocytes (%) (Auto) , Monocytes (%) (Auto) , Eosinophils (%) (Auto) , Basophils (%) (Auto) , Differen tial Total Cells Counted 100, Neutrophils % (Manual) 64, Lymphocytes % (Manual) 13L, Monocytes % (Manual) 6, Eosinophils % (Manual) 1, Basophils % (Manual) 0, Band Neutrophils 16H, Nucleated Red Blood Cells 1, Platelet Estimate DecreasedL, Platelet Morphology Normal, Polychromasia 1+, Anisocytosis 2+, Prothrombin Time 14.0H, Prothromb Time International Ratio 1.3H 01/10/20 12:12: POC Whole Blood Glucose 136H Height (Feet): 6 Height (Inches): 0.00 Weight (Pounds): 150 General Appearance: lethargic EENT: normal ENT inspection Neck: normal alignment Cardiovascular: normal peripheral pulses, normal rate, regular rhythm Respiratory/Chest: chest wall non-tender, lungs clear, normal breath sounds Abdomen: normal bowel sounds, non tender, soft Extremities: normal inspection Edema: no edema noted Arm (L), no edema noted Arm (R), no edema noted Leg (L), no edema noted Leg (R), no edema noted Pedal (L), no edema noted Pedal (R), no edema noted Generalized Neurologic: motor weakness Skin: normal pigmentation, warm/dry Assessment/Plan Problem List: (1) Anemia ICD Codes: D64.9 - Anemia, unspecified SNOMED: 941737093 (2) Paraplegia ICD Codes: G82.20 - Paraplegia, unspecified SNOMED: 73980231 (3) Diabetes ICD Codes: E11.9 - Type 2 diabetes mellitus without complications SNOMED: 00801433 (4) Weak ICD Codes: R53.1 - Weakness SNOMED: 18162875 (5) HTN (hypertension) ICD Codes: I10 - Essential (primary) hypertension SNOMED: 20991760 (6) ARF (acute renal failure) ICD Codes: N17.9 - Acute kidney failure, unspecified SNOMED: 27714767 (7) Altered level of consciousness ICD Codes: R40.4 - Transient alteration of awareness SNOMED: 4894843 (8) Dehydration ICD Codes: E86.0 - Dehydration SNOMED: 64942191 (9) Hypernatremia ICD Codes: E87.0 - Hyperosmolality and hypernatremia SNOMED: 238590581 Status: stable, progressing Assessment/Plan: o2 pulm tx abx ivf cbc bmp am dc if clear Farrukh Ríos DO Jan 10, 2020 14:12
[2020-01-10 16:00] VITALS: BP 119/68
--- NOTE | 2020-01-10 18:48 | Cardiac Electrophysiology PN ---
Assessment/Plan Assessment/Plan 1. Altered mental status due to severe dehydration in view of sodium of 160 and acute renal failure. On IV fluids and IV antibiotics.Ruled out for CO. Na 132 now 2. History of hypertension. We will hold off on his blood pressure medication at this time. Of note at the group home, the patient was on amlodipine and metoprolol, but has been discontinued in view of relative hypotension. 3. History of CVA, Plavix DCed in view of hematuria. 4. Advanced dementia. NGT feeding now 5. Diabetes. 6. Acute renal failure. The patient is being hydrated.Cr 3.7 7. Hematuria 8. Anemia likely due to hematuria and iv fluid DW RN Subjective Subjective On tele in NAD. Getting iv fluids In SR 95. Stool OB still pending. Plavix and heparin DCed as is having hematuria and HB dropped 2 gms. Also has nose bleed. Getting Abd US for high LFTs Objective Last 24 Hour Vital Signs Date Time Temp Pulse Resp B/P (MAP) Pulse Ox O2 Delivery O2 Flow Rate FiO2 01/10/20 16:00 111 01/10/20 16:00 97.9 107 20 119/68 (85) 98 01/10/20 12:00 Room Air 01/10/20 12:00 110 01/10/20 12:00 97.3 107 21 115/61 (79) 99 01/10/20 09:12 114 18 96 Room Air 21 01/10/20 08:00 Room Air 01/10/20 07:55 96.4 116 21 116/76 (89) 97 01/10/20 07:48 120 01/10/20 04:00 Room Air 01/10/20 04:00 97.2 109 19 101/72 (82) 98 01/10/20 03:29 110 01/10/20 00:00 96.8 110 19 115/72 (86) 100 01/10/20 00:00 Room Air 01/09/20 23:28 110 01/09/20 20:00 Room Air 01/09/20 20:00 96.8 99 21 126/76 (93) 100 01/09/20 19:06 100 01/09/20 19:02 80 20 99 Room Air 21 Intake and Output 01/09/20 01/10/20 19:00 07:00 Intake Total 929 ml 375 ml Output Total 150 ml 150 ml Balance 779 ml 225 ml Intake Oral 45 ml Free Water 150 ml IV Total 534 ml 270 ml Tube Feeding 200 ml 105 ml Output Urine Total 150 ml 150 ml Laboratory Tests Test 01/09/20 20:55 01/10/20 04:19 01/10/20 05:33 01/10/20 08:30 POC Whole Blood Glucose 81 MG/DL (74-106) 95 MG/DL (74-106) White Blood Count 5.6 K/UL (4.8-10.8) 4.8 K/UL (4.8-10.8) Red Blood Count 3.44 M/UL (4.70-6.10) L 3.17 M/UL (4.70-6.10) L Hemoglobin 10.2 G/DL (14.2-18.0) L 9.4 G/DL (14.2-18.0) L Hematocrit 31.9 % (42.0-52.0) L 29.1 % (42.0-52.0) L Mean Corpuscular Volume 93 FL (80-99) 92 FL (80-99) Mean Corpuscular Hemoglobin 29.7 PG (27.0-31.0) 29.6 PG (27.0-31.0) Mean Corpuscular Hemoglobin Concent 32.0 G/DL (32.0-36.0) 32.3 G/DL (32.0-36.0) Red Cell Distribution Width 18.6 % (11.6-14.8) H 19.6 % (11.6-14.8) H Platelet Count 98 K/UL (150-450) L 96 K/UL (150-450) L Mean Platelet Volume 7.6 FL (6.5-10.1) 9.1 FL (6.5-10.1) Neutrophils (%) (Auto) % (45.0-75.0) % (45.0-75.0) Lymphocytes (%) (Auto) % (20.0-45.0) % (20.0-45.0) Monocytes (%) (Auto) % (1.0-10.0) % (1.0-10.0) Eosinophils (%) (Auto) % (0.0-3.0) % (0.0-3.0) Basophils (%) (Auto) % (0.0-2.0) % (0.0-2.0) Sodium Level 132 MMOL/L (136-145) L Potassium Level 4.6 MMOL/L (3.5-5.1) Chloride Level 101 MMOL/L (98-107) Carbon Dioxide Level 12 MMOL/L (21-32) L Anion Gap 19 mmol/L (5-15) H Blood Urea Nitrogen 64 mg/dL (7-18) H Creatinine 3.7 MG/DL (0.55-1.30) H Estimat Glomerular Filtration Rate 19.8 mL/min (>60) Glucose Level 83 MG/DL (74-106) Uric Acid 19.3 MG/DL (2.6-7.2) H Calcium Level 9.5 MG/DL (8.5-10.1) Phosphorus Level 10.6 MG/DL (2.5-4.9) H Magnesium Level 2.1 MG/DL (1.8-2.4) Total Bilirubin 0.6 MG/DL (0.2-1.0) Aspartate Amino Transf (AST/SGOT) 2027 U/L (15-37) H Alanine Aminotransferase (ALT/SGPT) 185 U/L (12-78) H Alkaline Phosphatase 236 U/L (46-116) H C-Reactive Protein, Quantitative 16.8 mg/dL (0.00-0.90) H Pro-B-Type Natriuretic Peptide 4482 pg/mL (0-125) H Total Protein 5.2 G/DL (6.4-8.2) L Albumin 2.1 G/DL (3.4-5.0) L Globulin 3.1 g/dL Albumin/Globulin Ratio 0.7 (1.0-2.7) L Differential Total Cells Counted 100 Neutrophils % (Manual) 64 % (45-75) Lymphocytes % (Manual) 13 % (20-45) L Monocytes % (Manual) 6 % (1-10) Eosinophils % (Manual) 1 % (0-3) Basophils % (Manual) 0 % (0-2) Band Neutrophils 16 % (0-8) H Nucleated Red Blood Cells 1 /100 WBC Platelet Estimate Decreased L Platelet Morphology Normal Polychromasia 1+ Anisocytosis 2+ Prothrombin Time 14.0 SEC (9.30-11.50) H Prothromb Time International Ratio 1.3 (0.9-1.1) H Test 01/10/20 12:12 01/10/20 17:10 01/10/20 18:29 POC Whole Blood Glucose 136 MG/DL (74-106) H Pending Stool Occult Blood Pending Objective HEAD AND NECK: No JVD.NGT in place LUNGS: Coarse rhonchi. CARDIOVASCULAR: Regular S1 and S2 with no gallop. ABDOMEN: Soft. EXTREMITIES: No pitting edema. Kevin Lopez MD Jan 10, 2020 18:48
[2020-01-10] MEDS ORDERED: Albuterol/Ipratropium 3ml neb HHN PRN (18:56)
[2020-01-10 20:00] VITALS: BP 103/63
[2020-01-10] MEDS: Miralax 17gm pkt ORAL SCH (21:00)
[2020-01-10] MEDS ORDERED: Phytonadione 10 mg/mL 1ml amp SUBQ SCH (21:21)
[2020-01-10] MEDS: Sennosides 8.6mg tab ORAL SCH (21:25)
[2020-01-10] MEDS ORDERED: Oxymetazoline 0.05% Na Spray 30ml NASAL SCH (22:00)
[2020-01-11] VITALS (43 sets, daily range): BP systolic 74–140; BP diastolic 44–78
[2020-01-11] MEDS: Sodium Citrate 30ml NG SCH ×4 (00:36→18:12)
[2020-01-11 05:08] LABS: HEMATOCRIT 23.6 % (42.0-52.0); HEMOGLOBIN 7.7 G/DL (14.2-18.0); MEAN CORPUSCULAR VOLUME 94 FL (80-99); PLATELET COUNT 82 K/UL (150-450); RED BLOOD COUNT 2.52 M/UL (4.70-6.10); RED CELL DISTRIBUTION WIDTH 19.7 % (11.6-14.8); WHITE BLOOD COUNT 4.1 K/UL (4.8-10.8)
[2020-01-11 05:35] LABS: PHOSPHORUS 9.6 MG/DL (2.5-4.9)
[2020-01-11 05:38] LABS: ALBUMIN/GLOBULIN RATIO 0.7 (1.0-2.7); BILIRUBIN,TOTAL 0.4 MG/DL (0.2-1.0); CALCIUM 6.4 MG/DL (8.5-10.1); CREATININE 4.2 MG/DL (0.55-1.30); POTASSIUM 4.5 MMOL/L (3.5-5.1)
[2020-01-11] MEDS: Sodium Bicarbonate 50 ML in D5 1/2NS 1,000 ML IV SCH ×2 (05:53→17:24)
[2020-01-11] MEDS: NovoLOG Insulin Flexpen SUBQ SCH ×4 (05:54→21:00)
[2020-01-11] MEDS ORDERED: Oxymetazoline 0.05% Na Spray 30ml NASAL PRN (08:00)
[2020-01-11] MEDS: Heparin 5000 units/ml inj SUBQ SCH ×2 (09:00→20:24)
--- NOTE | 2020-01-11 09:10 | Hematology/Onc Progress Note ---
Assessment/Plan Assessment/Plan Assessment/Recs # Anemia of chronic disease due to underlying chronic medical issues, multifactorial v Gi bleed --> Anemia workup has been ordered, rule out gi bleed --> No evidence of hemolysis is noted, peripheral smear has been reviewed. --> Hgb goal >7. Transfuse prn. --> Epogen or iron at this time is not particularly indicated --> Medications have been reviewed --> low threshold for gi evaluation in case has occult + --> hgb 10-->9.7-->9.2->10-->8.6-->7.7 # Thrombocytopenia ongoing, worsened since adm --> plt 150-->98-->82 --> hep and hiv panel --> us abd-->shows 3 small lesions, requires further eval # Multiple lesions noted in pancreas --> MRI abd ordered # Protein caloric malnutrition --> daily calorie counts --> daily weights --> mirtazapine started # Acute renal failure --> continue on ivfs --> as per renal # Hypokalemia --> replete with K # Severe dehydration --> ivfs ongoing # Hypernatremia indicative of severe water deficit # Severe hyperuricemia, partly due to dehydration and renal failure # Acute metabolic and toxic encephalopathy # Mild, malnutrition # Psych issues per psych # Lactic acid, possible sepsis # Dvt ppx heparin sq The timing of this note does not necessarily reflect the time of the patient was seen. Greatly appreciate consultation. Subjective Constitutional: Denies: no symptoms, chills, fever, malaise, weakness, other HEENT: Denies: no symptoms, eye pain, blurred vision, tearing, double vision, ear pain, ear discharge, nose pain, nose congestion, throat pain, throat swelling, mouth pain, mouth swelling, other Cardiovascular: Denies: no symptoms, chest pain, edema, irregular heart rate, l ightheadedness, palpitations, syncope, other Respiratory: Denies: no symptoms, cough, shortness of breath, SOB with excertion, SOB at rest, sputum, wheezing, other Gastrointestinal/Abdominal: Denies: no symptoms, abdomen distended, abdominal pain, black stools, tarry stools, blood in stool, constipated, diarrhea, difficulty swallowing, nausea, poor appetite, poor fluid intake, rectal bleeding, vomiting, other Genitourinary: Denies: no symptoms, burning, discharge, frequency, flank pain, hematuria, incontinence, pain, urgency, other Neurologic/Psychiatric: Denies: no symptoms, anxiety, depressed, emotional problems, headache, numbness, paresthesia, pre-existing deficit, seizure, tingling, tremors, weakness, other Endocrine: Denies: no symptoms, excessive sweating, flushing, intolerance to cold, intolerance to heat, increased hunger, increased thirst, increased urine, unexplained weight gain, unexplained weight loss, other Hematologic/Lymphatic: Denies: no symptoms, anemia, easy bleeding, easy bruising, adenopathy, other Allergies: Coded Allergies: No Known Allergies (Unverified , 03/18/19) Subjective 01/07 meds noted, no bleeding, hgb 10, no hemolysis, hgb 10.1 01/08 labs reviewed, vi rn, no major events, no bleeding, hgb lower 01/09 labs noted, no bleeding, vi rn, no major changes, plt lower 01/10 did have epistaxis overnight, no bleeding, night sweats, epistaxis better Objective Objective Current Medications Medications (Trade) Dose Ordered Sig/Jesse Route PRN Reason Start Time Stop Time Status Last Admin Dose Admin Acetaminophen (Tylenol) 650 mg Q4H PRN ORAL PRNH/TEMP 01/05/20 20:15 02/04/20 20:14 Albuterol/ Ipratropium (Albuterol/ Ipratropium) 3 ml Q4H PRN HHN Bronchospasm 01/10/20 18:56 01/15/20 18:55 Allopurinol (allopurinoL) 300 mg BID NG 01/09/20 18:00 02/06/20 14:14 01/10/20 18:37 Aluminum Hydroxide (Amphojel) 1,920 mg Q6H NG 01/11/20 09:15 02/10/20 09:14 UNV Benztropine Mesylate (Cogentin) 1.5 mg BID NG 01/11/20 09:00 02/05/20 08:59 Bisacodyl (Dulcolax) 10 mg DAILY PRN RECTAL Constipation 01/05/20 20:15 04/04/20 20:14 Clopidogrel Bisulfate (Plavix) 75 mg DAILY NG 01/11/20 09:00 02/05/20 08:59 Dextrose (Dextrose 50%) 25 ml Q30M PRN IV Hypoglycemia 01/05/20 20:15 04/04/20 20:14 Dextrose (Dextrose 50%) 50 ml Q30M PRN IV Hypoglycemia 01/05/20 20:15 04/04/20 20:14 Docusate Sodium (Colace) 200 mg DAILY ORAL 01/06/20 09:00 02/05/20 08:59 01/10/20 09:25 Heparin Sodium (Porcine) (Heparin 5000 units/ml) 5,000 units Q12HR SUBQ 01/07/20 21:00 02/20/20 08:59 01/08/20 08:24 Insulin Aspart (NovoLOG) BEFORE MEALS AND HS SUBQ 01/05/20 21:00 04/04/20 20:59 01/11/20 05:54 Linaclotide (Linzess) 290 mcg BEFORE BREAKFAST ORAL 01/10/20 06:30 04/09/20 06:29 01/11/20 05:33 Mirtazapine (Remeron) 15 mg BEDTIME NG 01/11/20 21:00 04/07/20 20:59 Morphine Sulfate (Morphine Sulfate) 2 mg Q4H PRN IVP For Pain 01/06/20 00:45 01/13/20 00:44 Ondansetron HCl (Zofran) 4 mg Q6H PRN IVP Nausea & Vomiting 01/10/20 06:30 02/09/20 06:29 Oxymetazoline HCl (Afrin Nasal [place]) 2 spray Q12HR PRN NASAL dry nasal passage 01/11/20 08:00 04/10/20 07:59 Pantoprazole (Protonix) 40 mg EVERY 12 HOURS IVP 01/05/20 21:00 02/04/20 20:59 01/10/20 21:25 Polyethylene Glycol (Miralax) 17 gm BEDTIME NG 01/11/20 21:00 02/08/20 20:59 Sennosides (Senokot) 8.6 mg QHS NG 01/11/20 21:00 02/04/20 20:59 Sodium Bicarbonate 50 ml/ Dextrose/Sodium Chloride 1,050 ml @ 100 mls/hr [id number] IV 01/10/20 09:00 02/09/20 08:59 01/11/20 05:53 Sodium Citrate (Bicitra) 30 ml EVERY 6 HOURS NG 01/09/20 18:00 02/07/20 17:59 01/11/20 05:33 Last 24 Hour Vital Signs Date Time Temp Pulse Resp B/P (MAP) Pulse Ox O2 Delivery O2 Flow Rate FiO2 01/11/20 04:00 97.1 106 20 94/48 (63) 93 01/11/20 03:51 102 01/11/20 00:00 97.3 116 18 123/60 (81) 93 01/11/20 00:00 114 01/10/20 23:22 110 18 95 Room Air 21 01/10/20 20:00 97.4 106 20 103/63 (76) 98 01/10/20 19:42 103 01/10/20 16:00 111 01/10/20 16:00 97.9 107 20 119/68 (85) 98 01/10/20 12:00 Room Air 01/10/20 12:00 110 01/10/20 12:00 97.3 107 21 115/61 (79) 99 01/10/20 09:12 114 18 96 Room Air 21 01/10/20 08:00 Room Air 01/10/20 07:55 96.4 116 21 116/76 (89) 97 01/10/20 07:48 120 01/10/20 04:00 Room Air 01/10/20 04:00 97.2 109 19 101/72 (82) 98 01/10/20 03:29 110 01/10/20 00:00 96.8 110 19 115/72 (86) 100 01/10/20 00:00 Room Air 01/09/20 23:28 110 01/09/20 20:00 Room Air 01/09/20 20:00 96.8 99 21 126/76 (93) 100 01/09/20 19:06 100 01/09/20 19:02 80 20 99 Room Air 21 01/09/20 16:00 Room Air 01/09/20 16:00 97.0 94 18 120/69 (86) 100 01/09/20 16:00 92 01/09/20 12:00 89 01/09/20 12:00 96.4 91 20 128/72 (90) 100 01/09/20 12:00 Room Air Intake and Output 01/10/20 01/11/20 19:00 07:00 Intake Total 515 ml 1141.7 ml Output Total 100 ml Balance 415 ml 1141.7 ml Free Water 240 ml IV Total 811.7 ml Tube Feeding 275 ml 330 ml Output Urine Total 100 ml # Bowel Movements 1 Labs Test 01/08/20 11:57 01/08/20 17:09 01/08/20 20:34 01/09/20 04:20 POC Whole Blood Glucose 89 MG/DL (74-106) 109 MG/DL (74-106) 100 MG/DL (74-106) White Blood Count 4.8 K/UL (4.8-10.8) Red Blood Count 2.87 M/UL (4.70-6.10) Hemoglobin 8.6 G/DL (14.2-18.0) Hematocrit 26.5 % (42.0-52.0) Mean Corpuscular Volume 92 FL (80-99) Mean Corpuscular Hemoglobin 30.0 PG (27.0-31.0) Mean Corpuscular Hemoglobin Concent 32.5 G/DL (32.0-36.0) Red Cell Distribution Width 18.5 % (11.6-14.8) Platelet Count 130 K/UL (150-450) Mean Platelet Volume 7.0 FL (6.5-10.1) Neutrophils (%) (Auto) 84.9 % (45.0-75.0) Lymphocytes (%) (Auto) 10.8 % (20.0-45.0) Monocytes (%) (Auto) 3.0 % (1.0-10.0) Eosinophils (%) (Auto) 0.5 % (0.0-3.0) Basophils (%) (Auto) 0.9 % (0.0-2.0) Sodium Level 126 MMOL/L (136-145) Potassium Level 3.7 MMOL/L (3.5-5.1) Chloride Level 97 MMOL/L (98-107) Carbon Dioxide Level 11 MMOL/L (21-32) Anion Gap 18 mmol/L (5-15) Blood Urea Nitrogen 46 mg/dL (7-18) Creatinine 2.8 MG/DL (0.55-1.30) Estimat Glomerular Filtration Rate 27.3 mL/min (>60) Glucose Level 120 MG/DL (74-106) Uric Acid 20.0 MG/DL (2.6-7.2) Calcium Level 10.3 MG/DL (8.5-10.1) Phosphorus Level 7.1 MG/DL (2.5-4.9) Total Bilirubin 0.4 MG/DL (0.2-1.0) Aspartate Amino Transf (AST/SGOT) 1050 U/L (15-37) Alanine Aminotransferase (ALT/SGPT) 60 U/L (12-78) Alkaline Phosphatase 95 U/L (46-116) Total Protein 5.7 G/DL (6.4-8.2) Albumin 2.3 G/DL (3.4-5.0) Globulin 3.4 g/dL Albumin/Globulin Ratio 0.7 (1.0-2.7) Test 01/09/20 05:32 01/09/20 11:19 01/09/20 17:05 01/09/20 20:55 POC Whole Blood Glucose 118 MG/DL (74-106) 92 MG/DL (74-106) 76 MG/DL (74-106) 81 MG/DL (74-106) Test 01/10/20 04:19 01/10/20 05:33 01/10/20 08:30 01/10/20 12:12 White Blood Count 5.6 K/UL (4.8-10.8) 4.8 K/UL (4.8-10.8) Red Blood Count 3.44 M/UL (4.70-6.10) 3.17 M/UL (4.70-6.10) Hemoglobin 10.2 G/DL (14.2-18.0) 9.4 G/DL (14.2-18.0) Hematocrit 31.9 % (42.0-52.0) 29.1 % (42.0-52.0) Mean Corpuscular Volume 93 FL (80-99) 92 FL (80-99) Mean Corpuscular Hemoglobin 29.7 PG (27.0-31.0) 29.6 PG (27.0-31.0) Mean Corpuscular Hemoglobin Concent 32.0 G/DL (32.0-36.0) 32.3 G/DL (32.0-36.0) Red Cell Distribution Width 18.6 % (11.6-14.8) 19.6 % (11.6-14.8) Platelet Count 98 K/UL (150-450) 96 K/UL (150-450) Mean Platelet Volume 7.6 FL (6.5-10.1) 9.1 FL (6.5-10.1) Neutrophils (%) (Auto) % (45.0-75.0) % (45.0-75.0) Lymphocytes (%) (Auto) % (20.0-45.0) % (20.0-45.0) Monocytes (%) (Auto) % (1.0-10.0) % (1.0-10.0) Eosinophils (%) (Auto) % (0.0-3.0) % (0.0-3.0) Basophils (%) (Auto) % (0.0-2.0) % (0.0-2.0) Sodium Level 132 MMOL/L (136-145) Potassium Level 4.6 MMOL/L (3.5-5.1) Chloride Level 101 MMOL/L (98-107) Carbon Dioxide Level 12 MMOL/L (21-32) Anion Gap 19 mmol/L (5-15) Blood Urea Nitrogen 64 mg/dL (7-18) Creatinine 3.7 MG/DL (0.55-1.30) Estimat Glomerular Filtration Rate 19.8 mL/min (>60) Glucose Level 83 MG/DL (74-106) Uric Acid 19.3 MG/DL (2.6-7.2) Calcium Level 9.5 MG/DL (8.5-10.1) Phosphorus Level 10.6 MG/DL (2.5-4.9) Magnesium Level 2.1 MG/DL (1.8-2.4) Total Bilirubin 0.6 MG/DL (0.2-1.0) Aspartate Amino Transf (AST/SGOT) 2027 U/L (15-37) Alanine Aminotransferase (ALT/SGPT) 185 U/L (12-78) Alkaline Phosphatase 236 U/L (46-116) C-Reactive Protein, Quantitative 16.8 mg/dL (0.00-0.90) Pro-B-Type Natriuretic Peptide 4482 pg/mL (0-125) Total Protein 5.2 G/DL (6.4-8.2) Albumin 2.1 G/DL (3.4-5.0) Globulin 3.1 g/dL Albumin/Globulin Ratio 0.7 (1.0-2.7) POC Whole Blood Glucose 95 MG/DL (74-106) 136 MG/DL (74-106) Differential Total Cells Counted 100 Neutrophils % (Manual) 64 % (45-75) Lymphocytes % (Manual) 13 % (20-45) Monocytes % (Manual) 6 % (1-10) Eosinophils % (Manual) 1 % (0-3) Basophils % (Manual) 0 % (0-2) Band Neutrophils 16 % (0-8) Nucleated Red Blood Cells 1 /100 WBC Platelet Estimate Decreased Platelet Morphology Normal Polychromasia 1+ Anisocytosis 2+ Prothrombin Time 14.0 SEC (9.30-11.50) Prothromb Time International Ratio 1.3 (0.9-1.1) Test 01/10/20 17:10 01/10/20 18:29 01/10/20 21:11 01/11/20 03:05 POC Whole Blood Glucose 138 MG/DL (74-106) White Blood Count 4.1 K/UL (4.8-10.8) Red Blood Count 2.52 M/UL (4.70-6.10) Hemoglobin 7.7 G/DL (14.2-18.0) Hematocrit 23.6 % (42.0-52.0) Mean Corpuscular Volume 94 FL (80-99) Mean Corpuscular Hemoglobin 30.5 PG (27.0-31.0) Mean Corpuscular Hemoglobin Concent 32.5 G/DL (32.0-36.0) Red Cell Distribution Width 19.7 % (11.6-14.8) Platelet Count 82 K/UL (150-450) Mean Platelet Volume 8.2 FL (6.5-10.1) Neutrophils (%) (Auto) % (45.0-75.0) Lymphocytes (%) (Auto) % (20.0-45.0) Monocytes (%) (Auto) % (1.0-10.0) Eosinophils (%) (Auto) % (0.0-3.0) Basophils (%) (Auto) % (0.0-2.0) Sodium Level 133 MMOL/L (136-145) Potassium Level 4.5 MMOL/L (3.5-5.1) Chloride Level 101 MMOL/L (98-107) Carbon Dioxide Level 16 MMOL/L (21-32) Anion Gap 16 mmol/L (5-15) Blood Urea Nitrogen 72 mg/dL (7-18) Creatinine 4.2 MG/DL (0.55-1.30) Estimat Glomerular Filtration Rate 17.1 mL/min (>60) Glucose Level 173 MG/DL (74-106) Uric Acid 18.1 MG/DL (2.6-7.2) Calcium Level 6.4 MG/DL (8.5-10.1) Phosphorus Level 9.6 MG/DL (2.5-4.9) Magnesium Level 1.9 MG/DL (1.8-2.4) Total Bilirubin 0.4 MG/DL (0.2-1.0) Gamma Glutamyl Transpeptidase 85 U/L (5-85) Aspartate Amino Transf (AST/SGOT) 1960 U/L (15-37) Alanine Aminotransferase (ALT/SGPT) 139 U/L (12-78) Alkaline Phosphatase 175 U/L (46-116) Total Protein 4.9 G/DL (6.4-8.2) Albumin 2.0 G/DL (3.4-5.0) Globulin 2.9 g/dL Albumin/Globulin Ratio 0.7 (1.0-2.7) Test 01/11/20 05:37 01/11/20 07:50 POC Whole Blood Glucose 175 MG/DL (74-106) Arterial Blood pH 7.172 (7.350-7.450) Arterial Blood Partial Pressure CO2 41.6 mmHg (35.0-45.0) Arterial Blood Partial Pressure O2 107.6 mmHg (75.0-100.0) Arterial Blood HCO3 14.9 mmol/L (22.0-26.0) Arterial Blood Oxygen Saturation 95.7 % (95-100) Arterial Blood Base Excess -12.5 (-2-2) Asael Test Positive Height (Feet): 6 Height (Inches): 0.00 Weight (Pounds): 150 Objective PE: Vitals: reviewed General Appearance: NAD HEENT: normocephalic, atraumatic Neck: non-tender, normal alignment Respiratory/Chest: nromal breath sounds bilaterally Cardiovascular/Chest: normal peripheral pulses, normal rate Abdomen: normal bowel sounds, soft, nontender Extremities: normal range of motion Samuel Son MD Jan 11, 2020 09:10
[2020-01-11] MEDS ORDERED: Gadavist 7.5mMol/7.5ml vial IV PRN (09:15)
[2020-01-11] MEDS: Docusate 100mg cap ORAL SCH (09:24)
[2020-01-11] MEDS: Benztropine 1mg tab NG SCH ×2 (09:25→18:12)
[2020-01-11] MEDS: Pantoprazole Inj IVP SCH ×2 (09:25→20:24)
[2020-01-11] MEDS ORDERED: Sodium Bicarbonate 50ml Carp IV SCH (09:30)
[2020-01-11] MEDS: Aluminum Hydroxide Gel Susp 15ml NG SCH ×2 (10:20→18:12)
--- NOTE | 2020-01-11 10:30 | Nephrology Progress Note ---
Assessment/Plan Problem List: (1) ARF (acute renal failure) (2) Hypernatremia (3) Hypovolemic shock (4) Altered level of consciousness (5) Hypercalcemia (6) Hyperuricemia Assessment Acute renal failure Possible underlying chronic kidney failure Severe dehydration Hypernatremia indicative of severe water deficit Severe hyperuricemia, partly due to dehydration and renal failure Acute metabolic and toxic encephalopathy Mild, malnutrition Anemia Lactic acid, possible sepsis Hypercalcemia Plan January 10: Patient is doing poorly. Blood pressure low. ABG abnormal with metabolic acidosis. IV sodium bicarb given. Serum creatinine reno. Patient has acute renal failure. Nontunneled dialysis catheter replacement ordered.. Patient need life saving dialysis treatment SRINIVAS. January 09: Labs reviewed. IV D5 and a half with sodium bicarb initiated. Serum creatinine higher. Continue to monitor renal parameters. NG feeding was changed to Nepro. Patient remains full code. Poor prognosis. January 08: Labs reviewed. IV D5W discontinued. 500 cc 3% saline ordered. NG tube for feeding and for medications. Allopurinol dose increased. Continue to monitor renal parameters serum calcium and phosphorus. January 07: Labs reviewed. Serum calcium remains elevated. Uric acid still elevated. Will give pamidronate 60 mg IV piggyback once for hypercalcemia. Continue to monitor renal parameters. Continue D5W 150 cc an hour. Start Bicitra 30 cc p.o. every 6 hours. Add allopurinol D5W IV hydration Albumin bolus N.p.o. until able to take p.o. Antibiotics Monitor renal parameters monitor calcium, monitor uric acid Subjective ROS Limited/Unobtainable: Yes Objective Objective Last 24 Hour Vital Signs Date Time Temp Pulse Resp B/P (MAP) Pulse Ox O2 Delivery O2 Flow Rate FiO2 01/11/20 04:00 97.1 106 20 94/48 (63) 93 01/11/20 03:51 102 01/11/20 00:00 97.3 116 18 123/60 (81) 93 01/11/20 00:00 114 01/10/20 23:22 110 18 95 Room Air 21 01/10/20 20:00 97.4 106 20 103/63 (76) 98 01/10/20 19:42 103 01/10/20 16:00 111 01/10/20 16:00 97.9 107 20 119/68 (85) 98 01/10/20 12:00 Room Air 01/10/20 12:00 110 01/10/20 12:00 97.3 107 21 115/61 (79) 99 Intake and Output 01/10/20 01/11/20 19:00 07:00 Intake Total 515 ml 1141.7 ml Output Total 100 ml Balance 415 ml 1141.7 ml Free Water 240 ml IV Total 811.7 ml Tube Feeding 275 ml 330 ml Output Urine Total 100 ml # Bowel Movements 1 Current Medications Medications (Trade) Dose Ordered Sig/Jesse Route PRN Reason Start Time Stop Time Status Last Admin Dose Admin Acetaminophen (Tylenol) 650 mg Q4H PRN ORAL PRNH/TEMP 01/05/20 20:15 02/04/20 20:14 Albuterol/ Ipratropium (Albuterol/ Ipratropium) 3 ml Q4H PRN HHN Bronchospasm 01/10/20 18:56 01/15/20 18:55 Allopurinol (allopurinoL) 300 mg BID NG 01/09/20 18:00 02/06/20 14:14 01/11/20 09:25 Aluminum Hydroxide (Amphojel) 1,920 mg Q6HR NG 01/11/20 10:00 02/10/20 09:59 01/11/20 10:20 Benztropine Mesylate (Cogentin) 1.5 mg BID NG 01/11/20 09:00 02/05/20 08:59 01/11/20 09:25 Bisacodyl (Dulcolax) 10 mg DAILY PRN RECTAL Constipation 01/05/20 20:15 04/04/20 20:14 Clopidogrel Bisulfate (Plavix) 75 mg DAILY NG 01/11/20 09:00 02/05/20 08:59 01/11/20 09:25 Dextrose (Dextrose 50%) 25 ml Q30M PRN IV Hypoglycemia 01/05/20 20:15 04/04/20 20:14 Dextrose (Dextrose 50%) 50 ml Q30M PRN IV Hypoglycemia 01/05/20 20:15 04/04/20 20:14 Docusate Sodium (Colace) 200 mg DAILY ORAL 01/06/20 09:00 02/05/20 08:59 01/11/20 09:24 Gadobutrol (Gadavist) 7.5 mmol NOW PRN IV Radiology Procedure 01/11/20 09:15 01/15/20 09:14 Heparin Sodium (Porcine) (Heparin 5000 units/ml) 5,000 units Q12HR SUBQ 01/07/20 21:00 02/20/20 08:59 01/08/20 08:24 Insulin Aspart (NovoLOG) BEFORE MEALS AND HS SUBQ 01/05/20 21:00 04/04/20 20:59 01/11/20 05:54 Linaclotide (Linzess) 290 mcg BEFORE BREAKFAST ORAL 01/10/20 06:30 04/09/20 06:29 01/11/20 05:33 Mirtazapine (Remeron) 15 mg BEDTIME NG 01/11/20 21:00 04/07/20 20:59 Morphine Sulfate (Morphine Sulfate) 2 mg Q4H PRN IVP For Pain 01/06/20 00:45 01/13/20 00:44 Ondansetron HCl (Zofran) 4 mg Q6H PRN IVP Nausea & Vomiting 01/10/20 06:30 02/09/20 06:29 Oxymetazoline HCl (Afrin Nasal [place]) 2 spray Q12HR PRN NASAL dry nasal passage 01/11/20 08:00 04/10/20 07:59 Pantoprazole (Protonix) 40 mg EVERY 12 HOURS IVP 01/05/20 21:00 02/04/20 20:59 01/11/20 09:25 Polyethylene Glycol (Miralax) 17 gm BEDTIME NG 01/11/20 21:00 02/08/20 20:59 Sennosides (Senokot) 8.6 mg QHS NG 01/11/20 21:00 02/04/20 20:59 Sodium Bicarbonate 50 ml/ Dextrose/Sodium Chloride 1,050 ml @ 100 mls/hr [id number] IV 01/10/20 09:00 02/09/20 08:59 01/11/20 05:53 Sodium Bicarbonate (Sodium Bicarbonate) 50 ml ONCE IV 01/11/20 09:30 01/11/20 10:30 01/11/20 10:13 Sodium Chloride 500 ml @ 999 mls/hr Q31M ONCE IV 01/11/20 10:15 01/11/20 10:45 01/11/20 10:19 Sodium Citrate (Bicitra) 30 ml EVERY 6 HOURS NG 01/09/20 18:00 02/07/20 17:59 01/11/20 05:33 Laboratory Tests 01/10/20 12:12: POC Whole Blood Glucose 136H 01/10/20 17:10: Stool Occult Blood [Pending] 01/10/20 18:29: POC Whole Blood Glucose [Pending] 01/10/20 21:11: POC Whole Blood Glucose 138H 01/11/20 03:05: White Blood Count 4.1L, Red Blood Count 2.52L, Hemoglobin 7.7L, Hematocrit 23.6L , Mean Corpuscular Volume 94, Mean Corpuscular Hemoglobin 30.5, Mean Corpuscular Hemoglobin Concent 32.5, Red Cell Distribution Width 19.7H, Platelet Count 82L, Mean Platelet Volume 8.2, Neutrophils (%) (Auto) , Lymphocytes (%) (Auto) , Monocytes (%) (Auto) , Eosinophils (%) (Auto) , Basophils (%) (Auto) , Neutrophils % (Manual) [Pending], Lymphocytes % (Manual) [Pending], Platelet Estimate [Pending], Platelet Morphology [Pending], Sodium Level 133L, Potassium Level 4.5, Chloride Level 101, Carbon Dioxide Level 16L, Anion Gap 16H, Blood Urea Nitrogen 72H, Creatinine 4.2H, Estimat Glomerular Filtration Rate 17.1, Glucose Level 173H, Uric Acid 18.1H, Calcium Level 6.4#L, Phosphorus Level 9.6H, Magnesium Level 1.9, Total Bilirubin 0.4, Gamma Glutamyl Transpeptidase 85, Aspartate Amino Transf (AST/SGOT) 1960H, Alanine Aminotransferase (ALT/SGPT) 139H, Alkaline Phosphatase 175H, Total Protein 4.9L, Albumin 2.0L, Globulin 2.9, Albumin/Globulin Ratio 0.7L 01/11/20 05:37: POC Whole Blood Glucose 175H 01/11/20 07:50: Arterial Blood pH 7.172*L, Arterial Blood Partial Pressure CO2 41.6, Arterial Blood Partial Pressure O2 107.6H, Arterial Blood HCO3 14.9*L, Arterial Blood Oxygen Saturation 95.7, Arterial Blood Base Excess -12.5*L, Asael Test Positive Height (Feet): 6 Height (Inches): 0.00 Weight (Pounds): 150 General Appearance: lethargic Cardiovascular: tachycardia Respiratory/Chest: decreased breath sounds Abdomen: distended Dhiraj Biswas MD Jan 11, 2020 10:30
--- NOTE | 2020-01-11 10:32 | General Progress Note ---
Subjective Constitutional: Reports: weakness Respiratory: Reports: shortness of breath Allergies: Coded Allergies: No Known Allergies (Unverified , 03/18/19) All Systems: reviewed and negative except above Subjective o2mask low bp Objective Last 24 Hour Vital Signs Date Time Temp Pulse Resp B/P (MAP) Pulse Ox O2 Delivery O2 Flow Rate FiO2 01/11/20 04:00 97.1 106 20 94/48 (63) 93 01/11/20 03:51 102 01/11/20 00:00 97.3 116 18 123/60 (81) 93 01/11/20 00:00 114 01/10/20 23:22 110 18 95 Room Air 21 01/10/20 20:00 97.4 106 20 103/63 (76) 98 01/10/20 19:42 103 01/10/20 16:00 111 01/10/20 16:00 97.9 107 20 119/68 (85) 98 01/10/20 12:00 Room Air 01/10/20 12:00 110 01/10/20 12:00 97.3 107 21 115/61 (79) 99 Intake and Output 01/10/20 01/11/20 19:00 07:00 Intake Total 515 ml 1141.7 ml Output Total 100 ml Balance 415 ml 1141.7 ml Free Water 240 ml IV Total 811.7 ml Tube Feeding 275 ml 330 ml Output Urine Total 100 ml # Bowel Movements 1 Laboratory Tests 01/10/20 12:12: POC Whole Blood Glucose 136H 01/10/20 17:10: Stool Occult Blood [Pending] 01/10/20 18:29: POC Whole Blood Glucose [Pending] 01/10/20 21:11: POC Whole Blood Glucose 138H 01/11/20 03:05: White Blood Count 4.1L, Red Blood Count 2.52L, Hemoglobin 7.7L, Hematocrit 23.6L , Mean Corpuscular Volume 94, Mean Corpuscular Hemoglobin 30.5, Mean Corpuscular Hemoglobin Concent 32.5, Red Cell Distribution Width 19.7H, Platelet Count 82L, Mean Platelet Volume 8.2, Neutrophils (%) (Auto) , Lymphocytes (%) (Auto) , Monocytes (%) (Auto) , Eosinophils (%) (Auto) , Basophils (%) (Auto) , Neutrophils % (Manual) [Pending], Lymphocytes % (Manual) [Pending], Platelet Estimate [Pending], Platelet Morphology [Pending], Sodium Level 133L, Potassium Level 4.5, Chloride Level 101, Carbon Dioxide Level 16L, Anion Gap 16H, Blood Urea Nitrogen 72H, Creatinine 4.2H, Estimat Glomerular Filtration Rate 17.1, Glucose Level 173H, Uric Acid 18.1H, Calcium Level 6.4#L, Phosphorus Level 9.6H, Magnesium Level 1.9, Total Bilirubin 0.4, Gamma Glutamyl Transpeptidase 85, Aspartate Amino Transf (AST/SGOT) 1960H, Alanine Aminotransferase (ALT/SGPT) 139H, Alkaline Phosphatase 175H, Total Protein 4.9L, Albumin 2.0L, Globulin 2.9, Albumin/Globulin Ratio 0.7L 01/11/20 05:37: POC Whole Blood Glucose 175H 01/11/20 07:50: Arterial Blood pH 7.172*L, Arterial Blood Partial Pressure CO2 41.6, Arterial Blood Partial Pressure O2 107.6H, Arterial Blood HCO3 14.9*L, Arterial Blood Oxygen Saturation 95.7, Arterial Blood Base Excess -12.5*L, Asael Test Positive Height (Feet): 6 Height (Inches): 0.00 Weight (Pounds): 150 General Appearance: lethargic EENT: normal ENT inspection Neck: normal alignment Cardiovascular: normal peripheral pulses, normal rate, regular rhythm Respiratory/Chest: chest wall non-tender, lungs clear, normal breath sounds Abdomen: normal bowel sounds, non tender, soft Extremities: normal inspection Edema: no edema noted Arm (L), no edema noted Arm (R), no edema noted Leg (L), no edema noted Leg (R), no edema noted Pedal (L), no edema noted Pedal (R), no edema noted Generalized Neurologic: motor weakness Skin: normal pigmentation, warm/dry Assessment/Plan Problem List: (1) Anemia ICD Codes: D64.9 - Anemia, unspecified SNOMED: 935398106 (2) Paraplegia ICD Codes: G82.20 - Paraplegia, unspecified SNOMED: 08259544 (3) Diabetes ICD Codes: E11.9 - Type 2 diabetes mellitus without complications SNOMED: 79730397 (4) Weak ICD Codes: R53.1 - Weakness SNOMED: 20734075 (5) HTN (hypertension) ICD Codes: I10 - Essential (primary) hypertension SNOMED: 35368775 (6) ARF (acute renal failure) ICD Codes: N17.9 - Acute kidney failure, unspecified SNOMED: 43549306 (7) Altered level of consciousness ICD Codes: R40.4 - Transient alteration of awareness SNOMED: 4226395 (8) Dehydration ICD Codes: E86.0 - Dehydration SNOMED: 89496766 (9) Hypernatremia ICD Codes: E87.0 - Hyperosmolality and hypernatremia SNOMED: 331797613 Status: deteriorating Assessment/Plan: o2 pulm tx abx ivf cbc bmp am ns bolus pulm caredio f/u transfer to icu Farrukh Ríos DO Jan 11, 2020 10:32
[2020-01-11] MEDS: Norepinephrine 4mg/NS Premix 250 ML IV SCH ×3 (12:00→21:04)
--- NOTE | 2020-01-11 12:59 | General Progress Note ---
Subjective ROS Limited/Unobtainable: No Allergies: Coded Allergies: No Known Allergies (Unverified , 03/18/19) Objective Last 24 Hour Vital Signs Date Time Temp Pulse Resp B/P (MAP) Pulse Ox O2 Delivery O2 Flow Rate FiO2 01/11/20 12:00 92/59 01/11/20 07:56 104 01/11/20 07:40 101 20 90 Venturi Mask 40 01/11/20 04:00 97.1 106 20 94/48 (63) 93 01/11/20 03:51 102 01/11/20 00:00 97.3 116 18 123/60 (81) 93 01/11/20 00:00 114 01/10/20 23:22 110 18 95 Room Air 21 01/10/20 20:00 97.4 106 20 103/63 (76) 98 01/10/20 19:42 103 01/10/20 16:00 111 01/10/20 16:00 97.9 107 20 119/68 (85) 98 Intake and Output 01/10/20 01/11/20 19:00 07:00 Intake Total 515 ml 1141.7 ml Output Total 100 ml Balance 415 ml 1141.7 ml Free Water 240 ml IV Total 811.7 ml Tube Feeding 275 ml 330 ml Output Urine Total 100 ml # Bowel Movements 1 Laboratory Tests 01/10/20 17:10: Stool Occult Blood Negative 01/10/20 18:29: POC Whole Blood Glucose [Pending] 01/10/20 21:11: POC Whole Blood Glucose 138H 01/11/20 03:05: White Blood Count 4.1L, Red Blood Count 2.52L, Hemoglobin 7.7L, Hematocrit 23.6L , Mean Corpuscular Volume 94, Mean Corpuscular Hemoglobin 30.5, Mean Corpuscular Hemoglobin Concent 32.5, Red Cell Distribution Width 19.7H, Platelet Count 82L, Mean Platelet Volume 8.2, Neutrophils (%) (Auto) , Lymphocytes (%) (Auto) , Monocytes (%) (Auto) , Eosinophils (%) (Auto) , Basophils (%) (Auto) , Dif ferential Total Cells Counted 100, Neutrophils % (Manual) 56, Lymphocytes % (Manual) 19L, Monocytes % (Manual) 9, Eosinophils % (Manual) 1, Basophils % (Manual) 0, Band Neutrophils 15H, Nucleated Red Blood Cells 4, Platelet Estimate DecreasedL, Platelet Morphology Normal, Polychromasia 1+, Hypochromasia 1+, Anisocytosis 2+, Sodium Level 133L, Potassium Level 4.5, Chloride Level 101, Carbon Dioxide Level 16L, Anion Gap 16H, Blood Urea Nitrogen 72H, Creatinine 4.2H, Estimat Glomerular Filtration Rate 17.1, Glucose Level 173H, Uric Acid 18.1H, Calcium Level 6.4#L, Phosphorus Level 9.6H, Magnesium Level 1.9, Total Bilirubin 0.4, Gamma Glutamyl Transpeptidase 85, Aspartate Amino Transf (AST/SGOT) 1960H, Alanine Aminotransferase (ALT/SGPT) 139H, Alkaline Phosphatase 175H, Total Protein 4.9L, Albumin 2.0L, Globulin 2.9, Albumin/Globulin Ratio 0.7L 01/11/20 05:37: POC Whole Blood Glucose 175H 01/11/20 07:50: Arterial Blood pH 7.172*L, Arterial Blood Partial Pressure CO2 41.6, Arterial Blood Partial Pressure O2 107.6H, Arterial Blood HCO3 14.9*L, Arterial Blood Oxygen Saturation 95.7, Arterial Blood Base Excess -12.5*L, Asael Test Positive 01/11/20 11:35: Hepatitis A IgM Antibody [Pending], Hepatitis B Surface Antigen [Pending], Hepatitis B Core IgM Antibody [Pending], Hepatitis C Antibody [Pending], HIV (1&2) Antibody Rapid Negative Height (Feet): 6 Height (Inches): 0.00 Weight (Pounds): 150 General Appearance: no apparent distress EENT: normal ENT inspection Neck: supple Cardiovascular: normal rate Respiratory/Chest: decreased breath sounds Abdomen: normal bowel sounds, non tender, soft Extremities: non-tender Assessment/Plan Status: deteriorating Assessment/Plan: AMS dementia Anemia DM hyper CA elevated AST low albumin COPD RI HTN passed swallow eval, but poor po intake>>> NGTF on hold given patient was hypotensive and was transferred to ICU anemia work up GI procedures on hold fu nephrology and cardiology recs repeat labs fu stool ob>>> neg bowel regimen Paulino Bueno MD Jan 11, 2020 12:59
--- NOTE | 2020-01-11 13:06 | Infectious Diseases Prog Note ---
Assessment/Plan Assessment: COVID19 neg -01/04 rapid COVID PCR neg x1 influenza PCR neg CXR: Mild interstitial vascular prominence. No focal infiltrate or consolidation. Acute resp failure- 2ry to vol overload and metabolic acidosis- on VM now 01/10 Afebrile No leukocytosis -u/a neg, ucx neg Tachycardia, SP-2 ry to severe dehydration- no evidence of infection AVIS,worsened Hypernatremia>Hyponatremia R>L hydronephrosis Pancreatic lesions -Abd US: Bilateral right greater than left hydronephrosis, increased since prior study of 03/20/2019. Etiology not demonstrated. Empty bladder with a Mathew catheter. 3 hypoechoic lesions within the pancreatic head and body, each measuring about 5 mm. Appearance nonspecific. Bilateral pleural effusions. Echogenic liver, consistent with hepatocellular disease. Surface likely nodularity raises concern for cirrhosis. Gallbladder sludge. Negative for dilated bile ducts. Probable nonobstructive left intrarenal calculi. Multiple hepatic cysts Acute on chronic encephalopathy -CT head: 1. Markedly limited, near nondiagnostic evaluation due to motion artifact. Grossly, age-related changes and small vessel disease of aging are noted. Again grossly, no acute intracranial pathology is detected. If there is a high degree of concern or if there is concern for subtle abnormalities, magnetic resonance imaging of the brain with diffusion-weighted sequences should be performed, due to the markedly limited nature of the current study. Close clinical correlation is necessary. HTN COPD DM2 paraplegia Dementia non verbal [place] resident (elan mora) Plan: -Low threshold to start antibiotics if febrile, leukocytosis and/or evidence of PNA on CXR -01/06 SP Ceftriaxone #2 -01/04 Sp IV Vancomycin x1, Cefepime x1 -f/u cx -Monitor CBC/CMP, temperatures -Renal, cards f/u -CXR, u/a, ucx, Bcx x2 Thank you for consulting [facility]. Will continue to follow along with you. Discussed with RN. Subjective Allergies: Coded Allergies: No Known Allergies (Unverified , 03/18/19) afebrile now in ICU- on Venturi mask 40% was hypotensive but has not required levophed yet worsening metabolic acidosis and renal failure now leukocytosis Objective Last 24 Hour Vital Signs Date Time Temp Pulse Resp B/P (MAP) Pulse Ox O2 Delivery O2 Flow Rate FiO2 01/11/20 12:00 92/59 01/11/20 07:56 104 01/11/20 07:40 101 20 90 Venturi Mask 40 01/11/20 04:00 97.1 106 20 94/48 (63) 93 01/11/20 03:51 102 01/11/20 00:00 97.3 116 18 123/60 (81) 93 01/11/20 00:00 114 01/10/20 23:22 110 18 95 Room Air 21 01/10/20 20:00 97.4 106 20 103/63 (76) 98 01/10/20 19:42 103 01/10/20 16:00 111 01/10/20 16:00 97.9 107 20 119/68 (85) 98 Height (Feet): 6 Height (Inches): 0.00 Weight (Pounds): 150 GENERAL: Calm in bed, confused, not answering questions. CARDIOVASCULAR: No murmur. LUNGS: Poor exchange. ABDOMEN: Bowel sounds distant. EXTREMITIES: No cyanosis or edema. NEUROLOGIC: The patient moves all extremities, slightly weak. Laboratory Tests Test 01/10/20 17:10 01/10/20 18:29 01/10/20 21:11 01/11/20 03:05 Stool Occult Blood Negative (NEGATIVE) POC Whole Blood Glucose Pending 138 MG/DL (74-106) H White Blood Count 4.1 K/UL (4.8-10.8) L Red Blood Count 2.52 M/UL (4.70-6.10) L Hemoglobin 7.7 G/DL (14.2-18.0) L Hematocrit 23.6 % (42.0-52.0) L Mean Corpuscular Volume 94 FL (80-99) Mean Corpuscular Hemoglobin 30.5 PG (27.0-31.0) Mean Corpuscular Hemoglobin Concent 32.5 G/DL (32.0-36.0) Red Cell Distribution Width 19.7 % (11.6-14.8) H Platelet Count 82 K/UL (150-450) L Mean Platelet Volume 8.2 FL (6.5-10.1) Neutrophils (%) (Auto) % (45.0-75.0) Lymphocytes (%) (Auto) % (20.0-45.0) Monocytes (%) (Auto) % (1.0-10.0) Eosinophils (%) (Auto) % (0.0-3.0) Basophils (%) (Auto) % (0.0-2.0) Differential Total Cells Counted 100 Neutrophils % (Manual) 56 % (45-75) Lymphocytes % (Manual) 19 % (20-45) L Monocytes % (Manual) 9 % (1-10) Eosinophils % (Manual) 1 % (0-3) Basophils % (Manual) 0 % (0-2) Band Neutrophils 15 % (0-8) H Nucleated Red Blood Cells 4 /100 WBC Platelet Estimate Decreased L Platelet Morphology Normal Polychromasia 1+ Hypochromasia 1+ Anisocytosis 2+ Sodium Level 133 MMOL/L (136-145) L Potassium Level 4.5 MMOL/L (3.5-5.1) Chloride Level 101 MMOL/L (98-107) Carbon Dioxide Level 16 MMOL/L (21-32) L Anion Gap 16 mmol/L (5-15) H Blood Urea Nitrogen 72 mg/dL (7-18) H Creatinine 4.2 MG/DL (0.55-1.30) H Estimat Glomerular Filtration Rate 17.1 mL/min (>60) Glucose Level 173 MG/DL (74-106) H Uric Acid 18.1 MG/DL (2.6-7.2) H Calcium Level 6.4 MG/DL (8.5-10.1) #L Phosphorus Level 9.6 MG/DL (2.5-4.9) H Magnesium Level 1.9 MG/DL (1.8-2.4) Total Bilirubin 0.4 MG/DL (0.2-1.0) Gamma Glutamyl Transpeptidase 85 U/L (5-85) Aspartate Amino Transf (AST/SGOT) 1960 U/L (15-37) H Alanine Aminotransferase (ALT/SGPT) 139 U/L (12-78) H Alkaline Phosphatase 175 U/L (46-116) H Total Protein 4.9 G/DL (6.4-8.2) L Albumin 2.0 G/DL (3.4-5.0) L Globulin 2.9 g/dL Albumin/Globulin Ratio 0.7 (1.0-2.7) L Test 01/11/20 05:37 01/11/20 07:50 01/11/20 11:35 POC Whole Blood Glucose 175 MG/DL (74-106) H Arterial Blood pH 7.172 (7.350-7.450) Arterial Blood Partial Pressure CO2 41.6 mmHg (35.0-45.0) Arterial Blood Partial Pressure O2 107.6 mmHg (75.0-100.0) H Arterial Blood HCO3 14.9 mmol/L (22.0-26.0) *L Arterial Blood Oxygen Saturation 95.7 % (95-100) Arterial Blood Base Excess -12.5 (-2-2) *L Asael Test Positive Hepatitis A IgM Antibody Pending Hepatitis B Surface Antigen Pending Hepatitis B Core IgM Antibody Pending Hepatitis C Antibody Pending HIV (1&2) Antibody Rapid Negative (NEGATIVE) Current Medications Medications (Trade) Dose Ordered Sig/Jesse Route PRN Reason Start Time Stop Time Status Last Admin Dose Admin Acetaminophen (Tylenol) 650 mg Q4H PRN ORAL PRNH/TEMP 01/05/20 20:15 02/04/20 20:14 Albuterol/ Ipratropium (Albuterol/ Ipratropium) 3 ml Q4H PRN HHN Bronchospasm 01/10/20 18:56 01/15/20 18:55 Allopurinol (allopurinoL) 300 mg BID NG 01/09/20 18:00 02/06/20 14:14 01/11/20 09:25 Aluminum Hydroxide (Amphojel) 1,920 mg Q6HR NG 01/11/20 10:00 02/10/20 09:59 01/11/20 10:20 Benztropine Mesylate (Cogentin) 1.5 mg BID NG 01/11/20 09:00 02/05/20 08:59 01/11/20 09:25 Bisacodyl (Dulcolax) 10 mg DAILY PRN RECTAL Constipation 01/05/20 20:15 04/04/20 20:14 Chlorhexidine Gluconate (Navya-Hex 2%) 1 applic DAILY@1999 TOPIC 01/11/20 20:00 04/10/20 19:59 Clopidogrel Bisulfate (Plavix) 75 mg DAILY NG 01/11/20 09:00 02/05/20 08:59 01/11/20 09:25 Dextrose (Dextrose 50%) 25 ml Q30M PRN IV Hypoglycemia 01/05/20 20:15 04/04/20 20:14 Dextrose (Dextrose 50%) 50 ml Q30M PRN IV Hypoglycemia 01/05/20 20:15 04/04/20 20:14 Docusate Sodium (Colace) 200 mg DAILY ORAL 01/06/20 09:00 02/05/20 08:59 01/11/20 09:24 Gadobutrol (Gadavist) 7.5 mmol NOW PRN IV Radiology Procedure 01/11/20 09:15 01/15/20 09:14 Heparin Sodium (Porcine) (Heparin 5000 units/ml) 5,000 units Q12HR SUBQ 01/07/20 21:00 02/20/20 08:59 01/08/20 08:24 Insulin Aspart (NovoLOG) BEFORE MEALS AND HS SUBQ 01/05/20 21:00 04/04/20 20:59 01/11/20 05:54 Linaclotide (Linzess) 290 mcg BEFORE BREAKFAST ORAL 01/10/20 06:30 04/09/20 06:29 01/11/20 05:33 Mirtazapine (Remeron) 15 mg BEDTIME NG 01/11/20 21:00 04/07/20 20:59 Morphine Sulfate (Morphine Sulfate) 2 mg Q4H PRN IVP For Pain 01/06/20 00:45 01/13/20 00:44 Norepinephrine Bitartrate 250 ml @ 0 mls/hr Q24H IV 01/11/20 12:00 01/14/20 11:29 Ondansetron HCl (Zofran) 4 mg Q6H PRN IVP Nausea & Vomiting 01/10/20 06:30 02/09/20 06:29 Oxymetazoline HCl (Afrin Nasal [place]) 2 spray Q12HR PRN NASAL dry nasal passage 01/11/20 08:00 04/10/20 07:59 Pantoprazole (Protonix) 40 mg EVERY 12 HOURS IVP 01/05/20 21:00 02/04/20 20:59 01/11/20 09:25 Polyethylene Glycol (Miralax) 17 gm BEDTIME NG 01/11/20 21:00 02/08/20 20:59 Sennosides (Senokot) 8.6 mg QHS NG 01/11/20 21:00 02/04/20 20:59 Sodium Bicarbonate 50 ml/ Dextrose/Sodium Chloride 1,050 ml @ 100 mls/hr [id number] IV 01/10/20 09:00 02/09/20 08:59 01/11/20 05:53 Sodium Citrate (Bicitra) 30 ml EVERY 6 HOURS NG 01/09/20 18:00 02/07/20 17:59 01/11/20 11:55 Clara Guerin M.D. Jan 11, 2020 13:06
--- NOTE | 2020-01-11 13:34 | Cardiac Electrophysiology PN ---
Assessment/Plan Assessment/Plan 1. Altered mental status due to severe dehydration in view of sodium of 160 and acute renal failure. On IV fluids and IV antibiotics. Ruled out for AR. Na 132 now 2. Hypertension. Off on his blood pressure medication (at the shelter, the patient was on amlodipine and metoprolol) Will give another 500 ccNS. May need Levophed 3. History of CVA, Plavix DCed in view of hematuria. 4. Advanced dementia. NGT feeding 5. Diabetes. 6. Acute renal failure. The patient is being hydrated.Cr 4.2. May need HD 7. Hematuria 8. Anemia likely due to hematuria and iv fluid 9. Shock liver with increase AST>2000 DW RN Subjective Subjective Transferred to ICU for resiratory failure and BP down to 60s Stool OB still pending. Plavix and heparin DCed as is having hematuria and HB dropped 2 gms. Objective Last 24 Hour Vital Signs Date Time Temp Pulse Resp B/P (MAP) Pulse Ox O2 Delivery O2 Flow Rate FiO2 01/11/20 12:00 92/59 01/11/20 08:00 96.8 108 23 74/58 (63) 92 01/11/20 07:56 104 01/11/20 07:40 101 20 90 Venturi Mask 40 01/11/20 04:00 97.1 106 20 94/48 (63) 93 01/11/20 03:51 102 01/11/20 00:00 97.3 116 18 123/60 (81) 93 01/11/20 00:00 114 01/10/20 23:22 110 18 95 Room Air 21 01/10/20 20:00 97.4 106 20 103/63 (76) 98 01/10/20 19:42 103 01/10/20 16:00 111 01/10/20 16:00 97.9 107 20 119/68 (85) 98 Intake and Output 01/10/20 01/11/20 19:00 07:00 Intake Total 515 ml 1141.7 ml Output Total 100 ml Balance 415 ml 1141.7 ml Free Water 240 ml IV Total 811.7 ml Tube Feeding 275 ml 330 ml Output Urine Total 100 ml # Bowel Movements 1 Laboratory Tests Test 01/10/20 17:10 01/10/20 18:29 01/10/20 21:11 01/11/20 03:05 Stool Occult Blood Negative (NEGATIVE) POC Whole Blood Glucose Pending 138 MG/DL (74-106) H White Blood Count 4.1 K/UL (4.8-10.8) L Red Blood Count 2.52 M/UL (4.70-6.10) L Hemoglobin 7.7 G/DL (14.2-18.0) L Hematocrit 23.6 % (42.0-52.0) L Mean Corpuscular Volume 94 FL (80-99) Mean Corpuscular Hemoglobin 30.5 PG (27.0-31.0) Mean Corpuscular Hemoglobin Concent 32.5 G/DL (32.0-36.0) Red Cell Distribution Width 19.7 % (11.6-14.8) H Platelet Count 82 K/UL (150-450) L Mean Platelet Volume 8.2 FL (6.5-10.1) Neutrophils (%) (Auto) % (45.0-75.0) Lymphocytes (%) (Auto) % (20.0-45.0) Monocytes (%) (Auto) % (1.0-10.0) Eosinophils (%) (Auto) % (0.0-3.0) Basophils (%) (Auto) % (0.0-2.0) Differential Total Cells Counted 100 Neutrophils % (Manual) 56 % (45-75) Lymphocytes % (Manual) 19 % (20-45) L Monocytes % (Manual) 9 % (1-10) Eosinophils % (Manual) 1 % (0-3) Basophils % (Manual) 0 % (0-2) Band Neutrophils 15 % (0-8) H Nucleated Red Blood Cells 4 /100 WBC Platelet Estimate Decreased L Platelet Morphology Normal Polychromasia 1+ Hypochromasia 1+ Anisocytosis 2+ Sodium Level 133 MMOL/L (136-145) L Potassium Level 4.5 MMOL/L (3.5-5.1) Chloride Level 101 MMOL/L (98-107) Carbon Dioxide Level 16 MMOL/L (21-32) L Anion Gap 16 mmol/L (5-15) H Blood Urea Nitrogen 72 mg/dL (7-18) H Creatinine 4.2 MG/DL (0.55-1.30) H Estimat Glomerular Filtration Rate 17.1 mL/min (>60) Glucose Level 173 MG/DL (74-106) H Uric Acid 18.1 MG/DL (2.6-7.2) H Calcium Level 6.4 MG/DL (8.5-10.1) #L Phosphorus Level 9.6 MG/DL (2.5-4.9) H Magnesium Level 1.9 MG/DL (1.8-2.4) Total Bilirubin 0.4 MG/DL (0.2-1.0) Gamma Glutamyl Transpeptidase 85 U/L (5-85) Aspartate Amino Transf (AST/SGOT) 1960 U/L (15-37) H Alanine Aminotransferase (ALT/SGPT) 139 U/L (12-78) H Alkaline Phosphatase 175 U/L (46-116) H Total Protein 4.9 G/DL (6.4-8.2) L Albumin 2.0 G/DL (3.4-5.0) L Globulin 2.9 g/dL Albumin/Globulin Ratio 0.7 (1.0-2.7) L Test 01/11/20 05:37 01/11/20 07:50 01/11/20 11:35 POC Whole Blood Glucose 175 MG/DL (74-106) H Arterial Blood pH 7.172 (7.350-7.450) Arterial Blood Partial Pressure CO2 41.6 mmHg (35.0-45.0) Arterial Blood Partial Pressure O2 107.6 mmHg (75.0-100.0) H Arterial Blood HCO3 14.9 mmol/L (22.0-26.0) *L Arterial Blood Oxygen Saturation 95.7 % (95-100) Arterial Blood Base Excess -12.5 (-2-2) *L Asael Test Positive Hepatitis A IgM Antibody Pending Hepatitis B Surface Antigen Pending Hepatitis B Core IgM Antibody Pending Hepatitis C Antibody Pending HIV (1&2) Antibody Rapid Negative (NEGATIVE) Objective HEAD AND NECK: No JVD.NGT in place LUNGS: Coarse rhonchi. CARDIOVASCULAR: Regular S1 and S2 with no gallop. ABDOMEN: Soft. EXTREMITIES: No pitting edema. Kevin Lopez MD Jan 11, 2020 13:34
--- NOTE | 2020-01-11 13:45 | Consultation ---
DATE OF CONSULTATION: 01/11/2020 ICU CONSULTATION CONSULTING PHYSICIAN: Dominik Zelaya MD. HISTORY OF PRESENT ILLNESS: This is a 69-year-old male, who is admitted to the ICU. He has just been transferred here after being admitted to the hospital several days ago with hyponatremia and dehydration. The patient has been seen in the hospital by ID specialist and Nephrology. He has been found to have severe hyponatremia and a diagnosis also established of acute on chronic encephalopathy. PAST MEDICAL HISTORY: Hypertension, COPD, diabetes mellitus, paraplegia, dementia, group home resident. REVIEW OF SYSTEMS: Not obtainable. PHYSICAL EXAMINATION: VITAL SIGNS: Blood pressure is 90/40, heart rate 104, respirations are 20, O2 saturation 93% on 2 L of oxygen. GENERAL: Reveals an elderly male. HEENT: Unremarkable. CHEST: Decreased breath sounds. ABDOMEN: Soft. EXTREMITIES: There is no edema. He is very poorly responsive. He has diarrhea ongoing at this point in time. LABORATORY DATA: Lab testing shows hemoglobin 7.7, white count 4.1, platelet count is 82,000. Creatinine is 4.2. AST and ALT elevated. ABG, 7.17, pCO2 41, pO2 106. IMPRESSION: 1. Severe metabolic acidosis. 2. Hypoxemia. 3. Diarrhea. 4. Acute renal failure. DISCUSSION: Admit to the ICU. His COVID-19 test is negative. Broad-spectrum antibiotics, IV fluid hydration. He needs Levophed, which I will start through peripheral IV. I have consulted Dr. Jenkins, who will present shortly to place a dialysis catheter a central line. Rectal tube will be placed. We will follow carefully. Poor prognosis. Dominik Zelaya M.D. DR: KELLY JOB#: [id number] CC:
--- NOTE | 2020-01-11 16:47 | Operative Note - PDOC ---
Operative Note Operative Note Date of Operation/Procedure: Jan 11, 2020 Pre-op Diagnosis: Sepsis, renal insufficiency Procedure: Right femoral temporary hemodialysis catheter insertion Post-op Diagnosis: same as pre-op Surgeon: Lázaro Jenkins MD Anesthesia: local Specimen: none Complications: none Condition: unstable Estimated Blood Loss: minimal Drains: none Implant(s) used?: No Indications for Procedure 69-year-old male intensive care unit [facility] acutely ill septic acute renal insufficiency requiring hemodialysis as well as pressors. A central venous catheter insertion including hemodialysis catheter was indicated and recommended. Procedure performed at the bedside contain consent Description of Procedure Patient critically ill in the intensive care unit made comfortable in the supine position. Right groin was prepped and draped in the same surgical fashion. Anatomic landmarks identified. Right femoral vein cannulated without complication. Good venous flow identified. Guidewire placed over needle needle removed. Small skin incision made around the guidewire. Dilators were used and tract was dilated. Following this a temporal hemodialysis catheter with a accessory port for infusion of pressors was inserted without complication. Guidewire removed and discarded. Line sutured in place dressings applied all ports flushed and aspirated venous blood appropriately. Line ready for use. Lázaro Jenkins Jan 11, 2020 16:47
--- NOTE | 2020-01-11 17:38 | Diagnostic Imaging Report ---
Indication: Post intubation Technique: One view of the chest Comparison: One hour earlier Findings: Interim endotracheal intubation, endotracheal tube tip projecting approximately 6 cm above the héctor in good position. Stable satisfactory position of nasogastric tube. Bilateral interstitial and airspace infiltrates versus edema persists. Bilateral small pleural effusions are again demonstrated. Impression: Satisfactory endotracheal intubation Other stable findings as described
[2020-01-11] MEDS: Piperacillin/Tazobactam 2.25 GM in D5W 55 ML IV SCH (18:12)
--- NOTE | 2020-01-11 18:20 | Diagnostic Imaging Report ---
Indication: Dyspnea Technique: One view of the chest Comparison: 01/05/2020 Findings: Zero development of bilateral interstitial and airspace infiltrates versus edema, bilateral pleural effusions. Satisfactory is a gastric intubation. The heart size is upper limits normal. Impression: Bilateral interstitial and airspace infiltrates versus edema and bilateral pleural effusions Satisfactory nasogastric tube placement
[2020-01-11 18:35] LABS: APPEARANCE,URINE CLOUDY; BILIRUBIN, URINE NEGATIVE (NEGATIVE); COLOR,URINE PALE YELLOW; GLUCOSE, URINE (UA) NEGATIVE (NEGATIVE); KETONES,URINE NEGATIVE (NEGATIVE); LEUKOCYTE ESTERASE ,URINE 1+ (NEGATIVE); NITRITE,URINE NEGATIVE (NEGATIVE); PH,URINE 5 (4.5-8.0); PROTEIN,URINE 3+ (NEGATIVE); UROBILINOGEN,URINE NORMAL MG/DL (0.0-1.0)
[2020-01-11] MEDS: Miralax 17gm pkt NG SCH (19:37)
[2020-01-11] MEDS: Sennosides 8.6mg tab NG SCH (19:37)
[2020-01-11] MEDS: Dyna-Hex 2% Top Sol 2oz TOPIC SCH (20:23)
[2020-01-12] VITALS (51 sets, daily range): BP systolic 79–133; BP diastolic 38–95
[2020-01-12] MEDS: Piperacillin/Tazobactam 2.25 GM in D5W 55 ML IV SCH ×3 (02:08→18:53)
[2020-01-12] MEDS: Sodium Bicarbonate 50 ML in D5 1/2NS 1,000 ML IV SCH (03:00)
[2020-01-12] MEDS ORDERED: Sodium Bicarbonate 50 ML in D5 1/2NS 1,000 ML IV SCH (03:00)
[2020-01-12 04:48] LABS: HEMATOCRIT 17.9 % (42.0-52.0); MEAN CORPUSCULAR VOLUME 91 FL (80-99); PLATELET COUNT 58 K/UL (150-450); RED BLOOD COUNT 1.97 M/UL (4.70-6.10); WHITE BLOOD COUNT 2.3 K/UL (4.8-10.8)
[2020-01-12 04:58] LABS: CALCIUM 7.5 MG/DL (8.5-10.1); CREATININE 2.7 MG/DL (0.55-1.30); POTASSIUM 2.9 MMOL/L (3.5-5.1)
[2020-01-12 05:01] LABS: INR 1.1 (0.9-1.1)
[2020-01-12 05:17] LABS: HEMOGLOBIN 5.8 G/DL (14.2-18.0)
[2020-01-12 05:38] LABS: HEMATOCRIT 17.4 % (42.0-52.0); MEAN CORPUSCULAR VOLUME 90 FL (80-99); PLATELET COUNT 55 K/UL (150-450); RED BLOOD COUNT 1.94 M/UL (4.70-6.10); RED CELL DISTRIBUTION WIDTH 19.3 % (11.6-14.8); WHITE BLOOD COUNT 2.7 K/UL (4.8-10.8)
[2020-01-12] MEDS: Aluminum Hydroxide Gel Susp 15ml NG SCH ×4 (05:46→17:09)
[2020-01-12] MEDS: Sodium Citrate 30ml NG SCH ×2 (05:46)
[2020-01-12] MEDS: NovoLOG Insulin Flexpen SUBQ SCH ×4 (05:47→21:00)
[2020-01-12 05:49] LABS: HEMOGLOBIN 5.8 G/DL (14.2-18.0)
[2020-01-12] MEDS: Pantoprazole Inj IVP SCH ×2 (08:00→20:28)
[2020-01-12] MEDS: Benztropine 1mg tab NG SCH ×2 (08:01→17:09)
--- NOTE | 2020-01-12 08:47 | Pulmonology Progress Note ---
Subjective ROS Limited/Unobtainable: No Interval Events: Intubated yesterday; Constitutional: Reports: no symptoms HEENT: Repors: no symptoms Respiratory: Reports: no symptoms Cardiovascular: Reports: no symptoms Gastrointestinal/Abdominal: Reports: no symptoms Genitourinary: Reports: no symptoms Allergies: Coded Allergies: No Known Allergies (Unverified , 03/18/19) All Systems: reviewed and negative except above Objective Last 24 Hour Vital Signs Date Time Temp Pulse Resp B/P (MAP) Pulse Ox O2 Delivery O2 Flow Rate FiO2 01/12/20 07:00 102 21 95/54 (68) 100 01/12/20 06:45 104 21 88/50 (63) 100 01/12/20 06:30 108 22 92/47 (62) 100 01/12/20 06:00 108 22 99/51 (67) 100 01/12/20 05:30 111 22 108/54 (72) 99 01/12/20 05:01 115 22 30 01/12/20 05:00 111 23 95/47 (63) 100 01/12/20 04:30 112 23 92/49 (63) 100 01/12/20 04:00 100.0 115 22 95/46 (62) 97 01/12/20 04:00 Mechanical Ventilator 01/12/20 04:00 30 01/12/20 04:00 109 01/12/20 03:40 100.0 01/12/20 03:30 123 25 96/52 (67) 98 01/12/20 03:00 100.5 121 24 106/57 (73) 97 01/12/20 02:40 117 23 100 01/12/20 02:30 120 23 110/55 (73) 100 01/12/20 02:00 118 20 108/61 (77) 100 01/12/20 01:30 114 22 92/48 (63) 100 01/12/20 01:00 126 25 100 01/12/20 01:00 124 23 133/67 (89) 100 01/12/20 00:30 122 23 108/66 (80) 100 01/12/20 00:00 99.5 117 22 100/64 (76) 100 01/12/20 00:00 Mechanical Ventilator 01/12/20 00:00 50 01/12/20 00:00 115 01/11/20 23:30 117 22 97/64 (75) 100 01/11/20 23:00 118 24 97/60 (72) 100 01/11/20 22:45 121 25 124/66 (85) 100 01/11/20 22:39 116 23 100 01/11/20 22:30 116 25 100/59 (73) 100 01/11/20 22:15 114 23 92/60 (71) 100 01/11/20 22:00 116 25 106/56 (73) 100 01/11/20 21:45 119 26 98/50 (66) 100 01/11/20 21:30 121 27 105/47 (66) 100 01/11/20 21:15 116 27 103/60 (74) 100 01/11/20 21:04 104/64 01/11/20 21:00 115 28 93/52 (66) 100 01/11/20 20:45 116 29 84/54 (64) 100 01/11/20 20:44 116 29 100 01/11/20 20:30 113 27 86/53 (64) 100 01/11/20 20:15 114 28 83/50 (61) 100 01/11/20 20:00 Mechanical Ventilator 01/11/20 20:00 97.5 115 39 89/73 (78) 89 01/11/20 20:00 60 01/11/20 19:45 118 27 104/64 (77) 100 01/11/20 19:35 117 01/11/20 19:30 113 24 100/56 (71) 100 01/11/20 19:15 115 28 104/58 (73) 100 01/11/20 19:00 116 27 107/64 (78) 100 01/11/20 18:45 112 23 111/59 (76) 100 01/11/20 18:41 114 27 100 01/11/20 18:40 114 27 100 Mechanical Ventilator 60 01/11/20 18:30 112 27 112/63 (79) 100 01/11/20 18:15 111 27 108/61 (77) 100 01/11/20 18:00 108 26 107/59 (75) 100 01/11/20 17:45 108 23 100/53 (69) 100 01/11/20 17:35 106 25 100 01/11/20 17:30 108 24 111/59 (76) 100 01/11/20 17:15 110 26 101/54 (70) 100 01/11/20 17:00 109 24 102/58 (73) 100 01/11/20 16:45 108 28 101/76 (84) 100 01/11/20 16:30 106 26 109/78 (88) 100 01/11/20 16:15 105 25 121/72 (88) 100 01/11/20 16:00 97.9 105 25 122/68 (86) 100 01/11/20 16:00 60 01/11/20 16:00 Mechanical Ventilator 01/11/20 16:00 104 01/11/20 15:45 105 25 106/64 (78) 100 01/11/20 15:30 106 23 113/61 (78) 100 01/11/20 15:15 104 25 99/54 (69) 100 01/11/20 15:00 109 25 95/49 (64) 100 01/11/20 14:45 113 24 82/54 (63) 100 01/11/20 14:30 117 29 98/44 (62) 100 01/11/20 14:26 117 20 100 01/11/20 14:15 121 22 124/77 (93) 100 01/11/20 14:00 108 22 140/60 (86) 100 01/11/20 14:00 100 01/11/20 13:45 70/47 01/11/20 13:00 111 28 90/47 (61) 100 01/11/20 12:00 97.2 108 27 92/59 (70) 99 01/11/20 12:00 110 01/11/20 12:00 Venturi Mask 01/11/20 12:00 92/59 01/11/20 11:00 107 Intake and Output 01/11/20 01/12/20 19:00 07:00 Intake Total 1761.875 ml 1135.0 ml Output Total 230 ml 240 ml Balance 1531.875 ml 895.0 ml IV Total 1761.875 ml 1135.0 ml Output Urine Total 230 ml 240 ml # Bowel Movements 54 3 General Appearance: no acute distress HEENT: normocephalic Respiratory: chest wall non-tender, lungs clear Cardiovascular: normal peripheral pulses, normal rate Abdomen: normal bowel sounds Microbiology Date/Time Source Procedure Growth Status 01/11/20 18:00 Urine,Clean Catch Urine Culture - Preliminary NO GROWTH Resulted Laboratory Tests 01/11/20 11:35: Hepatitis A IgM Antibody Negative, Hepatitis B Surface Antigen Negative, Hepatitis B Core IgM Antibody Negative, Hepatitis C Antibody <0.1, HIV (1&2) Antibody Rapid Negative 01/11/20 16:00: Arterial Blood pH 7.358, Arterial Blood Partial Pressure CO2 27.4L, Arterial Blood Partial Pressure O2 299.1H, Arterial Blood HCO3 15.1*L, Arterial Blood Oxygen Saturation 98.9, Arterial Blood Base Excess -9.4*L, Asael Test Positive 01/11/20 18:00: Urine Color Pale yellow, Urine Appearance Cloudy, Urine pH 5, Urine Specific [place] 1.015, Urine Protein 3+H, Urine Glucose (UA) Negative, Urine Ketones Negative, Urine Blood 5+H, Urine Nitrite Negative, Urine Bilirubin Negative, Urine Urobilinogen Normal, Urine Leukocyte Esterase 1+H, Urine RBC 60-80H, Urine WBC 2-4, Urine Squamous Epithelial Cells Occasional, Urine Amorphous Sediment ManyH, Urine Bacteria ModerateH 01/12/20 03:46: White Blood Count 2.3L, Red Blood Count 1.97L, Hemoglobin 5.8*L, Hematocrit 17.9L, Mean Corpuscular Volume 91, Mean Corpuscular Hemoglobin 29.6, Mean Corpuscular Hemoglobin Concent 32.6, Red Cell Distribution Width 19.0H, Platelet Count 58L, Mean Platelet Volume 7.9, Neutrophils (%) (Auto) , Lymphocytes (%) (Auto) , Monocytes (%) (Auto) , Eosinophils (%) (Auto) , Basophils (%) (Auto) , Differential Total Cells Counted 100, Neutrophils % (Manual) 49, Lymphocytes % (Manual) 24, Monocytes % (Manual) 12H, Eosinophils % (Manual) 2, Basophils % (Manual) 0, Band Neutrophils 13H, Nucleated Red Blood Cells 7, Platelet Estimate DecreasedL, Platelet Morphology Normal, Polychromasia 1+, Hypochromasia 2+, Anisocytosis 2+, Prothrombin Time 12.4H, Prothromb Time International Ratio 1.1, Fibrinogen 492H, D-Dimer 18.05H, Sodium Level 142, Potassium Level 2.9L, Chloride Level 105, Carbon Dioxide Level 27, Anion Gap 10, Blood Urea Nitrogen 40H, Creatinine 2.7H, Estimat Glomerular Filtration Rate 28.4, Glucose Level 117H, Calcium Level 7.5L 01/12/20 05:30: White Blood Count 2.7L, Red Blood Count 1.94L, Hemoglobin 5.8*L, Hematocrit 17.4L, Mean Corpuscular Volume 90, Mean Corpuscular Hemoglobin 29.9, Mean Corpuscular Hemoglobin Concent 33.3, Red Cell Distribution Width 19.3H, Platelet Count 55L, Mean Platelet Volume 8.3, Neutrophils (%) (Auto) , Lymphocytes (%) (Auto) , Monocytes (%) (Auto) , Eosinophils (%) (Auto) , Basophils (%) (Auto) , Differential Total Cells Counted 100, Neutrophils % (Manual) 44L, Lymphocytes % (Manual) 28, Monocytes % (Manual) 13H, Eosinophils % (Manual) 0, Basophils % (Manual) 0, Band Neutrophils 15H, Nucleated Red Blood Cells 7, Platelet Estimate DecreasedL, Platelet Morphology Normal, Polychromasia 1+, Hypochromasia 2+, Anisocytosis 2+ 01/12/20 08:00: Arterial Blood pH 7.539H, Arterial Blood Partial Pressure CO2 30.3L, Arterial Blood Partial Pressure O2 77.7, Arterial Blood HCO3 25.3, Arterial Blood Oxygen Saturation 95.7, Arterial Blood Base Excess 2.5H, Asael Test Positive Current Medications Medications (Trade) Dose Ordered Sig/Jesse Route PRN Reason Start Time Stop Time Status Last Admin Dose Admin Acetaminophen (Tylenol) 650 mg Q4H PRN ORAL PRNH/TEMP 01/05/20 20:15 02/04/20 20:14 01/12/20 03:10 Albuterol/ Ipratropium (Albuterol/ Ipratropium) 3 ml Q4H PRN HHN Bronchospasm 01/10/20 18:56 01/15/20 18:55 Allopurinol (allopurinoL) 300 mg BID NG 01/09/20 18:00 02/06/20 14:14 01/12/20 08:00 Aluminum Hydroxide (Amphojel) 1,920 mg Q6HR NG 01/11/20 10:00 02/10/20 09:59 01/12/20 05:46 Benztropine Mesylate (Cogentin) 1.5 mg BID NG 01/11/20 09:00 02/05/20 08:59 01/12/20 08:01 Bisacodyl (Dulcolax) 10 mg DAILY PRN RECTAL Constipation 01/05/20 20:15 04/04/20 20:14 Chlorhexidine Gluconate (Navya-Hex 2%) 1 applic DAILY@2000 TOPIC 01/11/20 20:00 04/10/20 19:59 01/11/20 20:23 Clopidogrel Bisulfate (Plavix) 75 mg DAILY NG 01/11/20 09:00 02/05/20 08:59 01/11/20 09:25 Dextrose (Dextrose 50%) 25 ml Q30M PRN IV Hypoglycemia 01/05/20 20:15 04/04/20 20:14 Dextrose (Dextrose 50%) 50 ml Q30M PRN IV Hypoglycemia 01/05/20 20:15 04/04/20 20:14 Docusate Sodium (Colace) 200 mg DAILY ORAL 01/06/20 09:00 02/05/20 08:59 01/11/20 09:24 Gadobutrol (Gadavist) 7.5 mmol NOW PRN IV Radiology Procedure 01/11/20 09:15 01/15/20 09:14 Heparin Sodium (Porcine) (Heparin 5000 units/ml) 5,000 units Q12HR SUBQ 01/07/20 21:00 02/20/20 08:59 01/11/20 20:24 Insulin Aspart (NovoLOG) BEFORE MEALS AND HS SUBQ 01/05/20 21:00 04/04/20 20:59 01/11/20 05:54 Linaclotide (Linzess) 290 mcg BEFORE BREAKFAST ORAL 01/10/20 06:30 04/09/20 06:29 01/11/20 05:33 Morphine Sulfate (Morphine Sulfate) 2 mg Q4H PRN IVP For Pain 01/06/20 00:45 01/13/20 00:44 Norepinephrine Bitartrate 250 ml @ 0 mls/hr Q24H IV 01/11/20 12:00 01/14/20 11:29 01/11/20 21:04 Ondansetron HCl (Zofran) 4 mg Q6H PRN IVP Nausea & Vomiting 01/10/20 06:30 02/09/20 06:29 Oxymetazoline HCl (Afrin Nasal [place]) 2 spray Q12HR PRN NASAL dry nasal passage 01/11/20 08:00 04/10/20 07:59 Pantoprazole (Protonix) 40 mg EVERY 12 HOURS IVP 01/05/20 21:00 02/04/20 20:59 01/12/20 08:00 Piperacillin Sod/ Tazobactam Sod 2.25 gm/Dextrose 55 ml @ 110 mls/hr Q8H IV 01/11/20 18:00 01/18/20 17:59 01/12/20 02:08 Polyethylene Glycol (Miralax) 17 gm BEDTIME NG 01/11/20 21:00 02/08/20 20:59 Potassium Chloride 100 ml @ 100 mls/hr Q1H IVPB 01/12/20 08:00 01/12/20 09:59 01/12/20 08:00 Sennosides (Senokot) 8.6 mg QHS NG 01/11/20 21:00 02/04/20 20:59 Sodium Bicarbonate 50 ml/ Dextrose/Sodium Chloride 1,050 ml @ 100 mls/hr [id number] IV 01/12/20 03:00 02/11/20 02:59 01/12/20 03:08 Sodium Citrate (Bicitra) 30 ml EVERY 6 HOURS NG 01/09/20 18:00 02/07/20 17:59 01/12/20 05:46 Assessment/Plan Assessment/Plan IMPRESSION: 1. Severe metabolic acidosis. 2. Respiratory failure 3. Diarrhea. 4. Acute renal failure. 5. Anemia DISCUSSION: Continue vent Will adjust vent setting given resp alkalosis Continue antibiotics, IV fluid hydration. Pressors prn Will request transfusion Rectal tube Daxa Infante Omar Syed MD Jan 12, 2020 08:47
[2020-01-12] MEDS: Docusate 100mg cap ORAL SCH (08:50)
[2020-01-12] MEDS: Heparin 5000 units/ml inj SUBQ SCH ×2 (08:51→21:00)
--- NOTE | 2020-01-12 10:04 | General Progress Note ---
Subjective Constitutional: Reports: weakness Allergies: Coded Allergies: No Known Allergies (Unverified , 03/18/19) All Systems: reviewed and negative except above Subjective intubated sedated in icu Objective Last 24 Hour Vital Signs Date Time Temp Pulse Resp B/P (MAP) Pulse Ox O2 Delivery O2 Flow Rate FiO2 01/12/20 08:56 108 26 100 Mechanical Ventilator 30 01/12/20 08:55 108 22 30 01/12/20 07:11 109 22 30 01/12/20 07:00 102 21 95/54 (68) 100 01/12/20 06:45 104 21 88/50 (63) 100 01/12/20 06:30 108 22 92/47 (62) 100 01/12/20 06:00 108 22 99/51 (67) 100 01/12/20 05:30 111 22 108/54 (72) 99 01/12/20 05:01 115 22 30 01/12/20 05:00 111 23 95/47 (63) 100 01/12/20 04:30 112 23 92/49 (63) 100 01/12/20 04:00 100.0 115 22 95/46 (62) 97 01/12/20 04:00 Mechanical Ventilator 01/12/20 04:00 30 01/12/20 04:00 109 01/12/20 03:40 100.0 01/12/20 03:30 123 25 96/52 (67) 98 01/12/20 03:00 100.5 121 24 106/57 (73) 97 01/12/20 02:40 117 23 100 01/12/20 02:30 120 23 110/55 (73) 100 01/12/20 02:00 118 20 108/61 (77) 100 01/12/20 01:30 114 22 92/48 (63) 100 01/12/20 01:00 126 25 100 01/12/20 01:00 124 23 133/67 (89) 100 01/12/20 00:30 122 23 108/66 (80) 100 01/12/20 00:00 99.5 117 22 100/64 (76) 100 01/12/20 00:00 Mechanical Ventilator 01/12/20 00:00 50 01/12/20 00:00 115 01/11/20 23:30 117 22 97/64 (75) 100 01/11/20 23:00 118 24 97/60 (72) 100 01/11/20 22:45 121 25 124/66 (85) 100 01/11/20 22:39 116 23 100 01/11/20 22:30 116 25 100/59 (73) 100 01/11/20 22:15 114 23 92/60 (71) 100 01/11/20 22:00 116 25 106/56 (73) 100 01/11/20 21:45 119 26 98/50 (66) 100 01/11/20 21:30 121 27 105/47 (66) 100 01/11/20 21:15 116 27 103/60 (74) 100 01/11/20 21:04 104/64 01/11/20 21:00 115 28 93/52 (66) 100 01/11/20 20:45 116 29 84/54 (64) 100 01/11/20 20:44 116 29 100 01/11/20 20:30 113 27 86/53 (64) 100 01/11/20 20:15 114 28 83/50 (61) 100 01/11/20 20:00 Mechanical Ventilator 01/11/20 20:00 97.5 115 39 89/73 (78) 89 01/11/20 20:00 60 01/11/20 19:45 118 27 104/64 (77) 100 01/11/20 19:35 117 01/11/20 19:30 113 24 100/56 (71) 100 01/11/20 19:15 115 28 104/58 (73) 100 01/11/20 19:00 116 27 107/64 (78) 100 01/11/20 18:45 112 23 111/59 (76) 100 01/11/20 18:41 114 27 100 01/11/20 18:40 114 27 100 Mechanical Ventilator 60 01/11/20 18:30 112 27 112/63 (79) 100 01/11/20 18:15 111 27 108/61 (77) 100 01/11/20 18:00 108 26 107/59 (75) 100 01/11/20 17:45 108 23 100/53 (69) 100 01/11/20 17:35 106 25 100 01/11/20 17:30 108 24 111/59 (76) 100 01/11/20 17:15 110 26 101/54 (70) 100 01/11/20 17:00 109 24 102/58 (73) 100 01/11/20 16:45 108 28 101/76 (84) 100 01/11/20 16:30 106 26 109/78 (88) 100 01/11/20 16:15 105 25 121/72 (88) 100 01/11/20 16:00 97.9 105 25 122/68 (86) 100 01/11/20 16:00 60 01/11/20 16:00 Mechanical Ventilator 01/11/20 16:00 104 01/11/20 15:45 105 25 106/64 (78) 100 01/11/20 15:30 106 23 113/61 (78) 100 01/11/20 15:15 104 25 99/54 (69) 100 01/11/20 15:00 109 25 95/49 (64) 100 01/11/20 14:45 113 24 82/54 (63) 100 01/11/20 14:30 117 29 98/44 (62) 100 01/11/20 14:26 117 20 100 01/11/20 14:15 121 22 124/77 (93) 100 01/11/20 14:00 108 22 140/60 (86) 100 01/11/20 14:00 100 01/11/20 13:45 70/47 01/11/20 13:00 111 28 90/47 (61) 100 01/11/20 12:00 97.2 108 27 92/59 (70) 99 01/11/20 12:00 110 01/11/20 12:00 Venturi Mask 01/11/20 12:00 92/59 01/11/20 11:00 107 Intake and Output 01/11/20 01/12/20 19:00 07:00 Intake Total 1761.875 ml 1135.0 ml Output Total 230 ml 240 ml Balance 1531.875 ml 895.0 ml IV Total 1761.875 ml 1135.0 ml Output Urine Total 230 ml 240 ml # Bowel Movements 54 3 Laboratory Tests 01/11/20 11:35: Hepatitis A IgM Antibody Negative, Hepatitis B Surface Antigen Negative, Hepatitis B Core IgM Antibody Negative, Hepatitis C Antibody <0.1, HIV (1&2) Antibody Rapid Negative 01/11/20 16:00: Arterial Blood pH 7.358, Arterial Blood Partial Pressure CO2 27.4L, Arterial Blood Partial Pressure O2 299.1H, Arterial Blood HCO3 15.1*L, Arterial Blood Oxygen Saturation 98.9, Arterial Blood Base Excess -9.4*L, Asael Test Positive 01/11/20 18:00: Urine Color Pale yellow, Urine Appearance Cloudy, Urine pH 5, Urine Specific [place] 1.015, Urine Protein 3+H, Urine Glucose (UA) Negative, Urine Ketones Negative, Urine Blood 5+H, Urine Nitrite Negative, Urine Bilirubin Negative, Urine Urobilinogen Normal, Urine Leukocyte Esterase 1+H, Urine RBC 60-80H, Urine WBC 2-4, Urine Squamous Epithelial Cells Occasional, Urine Amorphous Sediment ManyH, Urine Bacteria ModerateH 01/12/20 03:46: White Blood Count 2.3L, Red Blood Count 1.97L, Hemoglobin 5.8*L, Hematocrit 17.9L, Mean Corpuscular Volume 91, Mean Corpuscular Hemoglobin 29.6, Mean Corpuscular Hemoglobin Concent 32.6, Red Cell Distribution Width 19.0H, Platelet Count 58L, Mean Platelet Volume 7.9, Neutrophils (%) (Auto) , Lymphocytes (%) (Auto) , Monocytes (%) (Auto) , Eosinophils (%) (Auto) , Basophils (%) (Auto) , Differential Total Cells Counted 100, Neutrophils % (Manual) 49, Lymphocytes % (Manual) 24, Monocytes % (Manual) 12H, Eosinophils % (Manual) 2, Basophils % (Manual) 0, Band Neutrophils 13H, Nucleated Red Blood Cells 7, Platelet Estimate DecreasedL, Platelet Morphology Normal, Polychromasia 1+, Hypochromasia 2+, Anisocytosis 2+, Prothrombin Time 12.4H, Prothromb Time International Ratio 1.1, Fibrinogen 492H, D-Dimer 18.05H, Sodium Level 142, Potassium Level 2.9L, Chloride Level 105, Carbon Dioxide Level 27, Anion Gap 10, Blood Urea Nitrogen 40H, Creatinine 2.7H, Estimat Glomerular Filtration Rate 28.4, Glucose Level 117H, Calcium Level 7.5L 01/12/20 05:30: White Blood Count 2.7L, Red Blood Count 1.94L, Hemoglobin 5.8*L, Hematocrit 17.4L, Mean Corpuscular Volume 90, Mean Corpuscular Hemoglobin 29.9, Mean Corpuscular Hemoglobin Concent 33.3, Red Cell Distribution Width 19.3H, Platelet Count 55L, Mean Platelet Volume 8.3, Neutrophils (%) (Auto) , Lymphocytes (%) (Auto) , Monocytes (%) (Auto) , Eosinophils (%) (Auto) , Basophils (%) (Auto) , Differential Total Cells Counted 100, Neutrophils % (Manual) 44L, Lymphocytes % (Manual) 28, Monocytes % (Manual) 13H, Eosinophils % (Manual) 0, Basophils % (Manual) 0, Band Neutrophils 15H, Nucleated Red Blood Cells 7, Platelet Estimate DecreasedL, Platelet Morphology Normal, Polychromasia 1+, Hypochromasia 2+, Anisocytosis 2+ 01/12/20 08:00: Arterial Blood pH 7.539H, Arterial Blood Partial Pressure CO2 30.3L, Arterial Blood Partial Pressure O2 77.7, Arterial Blood HCO3 25.3, Arterial Blood Oxygen Saturation 95.7, Arterial Blood Base Excess 2.5H, Asael Test Positive Height (Feet): 6 Height (Inches): 0.00 Weight (Pounds): 150 General Appearance: lethargic EENT: normal ENT inspection Neck: normal alignment Cardiovascular: normal peripheral pulses, normal rate, regular rhythm Respiratory/Chest: chest wall non-tender, lungs clear, normal breath sounds Abdomen: normal bowel sounds, non tender, soft Extremities: normal inspection Edema: no edema noted Arm (L), no edema noted Arm (R), no edema noted Leg (L), no edema noted Leg (R), no edema noted Pedal (L), no edema noted Pedal (R), no edema noted Generalized Neurologic: motor weakness Skin: normal pigmentation, warm/dry Assessment/Plan Problem List: (1) Anemia ICD Codes: D64.9 - Anemia, unspecified SNOMED: 058549285 (2) Paraplegia ICD Codes: G82.20 - Paraplegia, unspecified SNOMED: 04541079 (3) Diabetes ICD Codes: E11.9 - Type 2 diabetes mellitus without complications SNOMED: 45285575 (4) Weak ICD Codes: R53.1 - Weakness SNOMED: 95386824 (5) HTN (hypertension) ICD Codes: I10 - Essential (primary) hypertension SNOMED: 75624049 (6) ARF (acute renal failure) ICD Codes: N17.9 - Acute kidney failure, unspecified SNOMED: 11655486 (7) Altered level of consciousness ICD Codes: R40.4 - Transient alteration of awareness SNOMED: 5191968 (8) Dehydration ICD Codes: E86.0 - Dehydration SNOMED: 32535714 (9) Hypernatremia ICD Codes: E87.0 - Hyperosmolality and hypernatremia SNOMED: 344334356 Status: deteriorating Assessment/Plan: o2 pulm tx abx ivf cbc bmp am ns bolus pulm cardio f/u Farrukh Ríos DO Jan 12, 2020 10:04
[2020-01-12] MEDS: Norepinephrine 4mg/NS Premix 250 ML IV SCH (10:23)
[2020-01-12 11:06] LABS: ALANINE AMINOTRANSFERASE 63 U/L (12-78); ALBUMIN 2.2 G/DL (3.4-5.0); ALKALINE PHOSPHATASE 131 U/L (46-116); ASPARTATE AMINO TRANSFERASE 533 U/L (15-37); BILIRUBIN,DIRECT 0.2 MG/DL (0.0-0.3); BILIRUBIN,TOTAL 0.5 MG/DL (0.2-1.0); GAMMA GLUTAMYL TRANSPEPTIDASE 89 U/L (5-85); PHOSPHORUS 3.9 MG/DL (2.5-4.9)
--- NOTE | 2020-01-12 11:27 | Nephrology Progress Note ---
Assessment/Plan Problem List: (1) ARF (acute renal failure) (2) Hypernatremia (3) Hypovolemic shock (4) Altered level of consciousness (5) Hypercalcemia (6) Hyperuricemia Assessment Acute renal failure Possible underlying chronic kidney failure Severe dehydration Hypernatremia indicative of severe water deficit Severe hyperuricemia, partly due to dehydration and renal failure Acute metabolic and toxic encephalopathy Mild, malnutrition Anemia Lactic acid, possible sepsis Hypercalcemia Plan January 11: Patient in ICU. Intubated. On Levophed. Hemoglobin low. Due for transfusion. Electrolyte abnormalities noted and addressed. Patient was dialyzed yesterday. Will check lab tomorrow. Dialysis as needed. Discussed with SELIN Srivastava. January 10: Patient is doing poorly. Blood pressure low. ABG abnormal with metabolic acidosis. IV sodium bicarb given. Serum creatinine reno. Patient has acute renal failure. Nontunneled dialysis catheter replacement ordered.. Patient need life saving dialysis treatment SRINIVAS. January 09: Labs reviewed. IV D5 and a half with sodium bicarb initiated. Serum creatinine higher. Continue to monitor renal parameters. NG feeding was changed to Nepro. Patient remains full code. Poor prognosis. January 08: Labs reviewed. IV D5W discontinued. 500 cc 3% saline ordered. NG tube for feeding and for medications. Allopurinol dose increased. Continue to monitor renal parameters serum calcium and phosphorus. January 07: Labs reviewed. Serum calcium remains elevated. Uric acid still elevated. Will give pamidronate 60 mg IV piggyback once for hypercalcemia. Continue to monitor renal parameters. Continue D5W 150 cc an hour. Start Bici tra 30 cc p.o. every 6 hours. Add allopurinol D5W IV hydration Albumin bolus N.p.o. until able to take p.o. Antibiotics Monitor renal parameters monitor calcium, monitor uric acid Subjective ROS Limited/Unobtainable: Yes Objective Objective Last 24 Hour Vital Signs Date Time Temp Pulse Resp B/P (MAP) Pulse Ox O2 Delivery O2 Flow Rate FiO2 01/12/20 10:23 103/52 01/12/20 10:00 105 21 103/52 (69) 100 01/12/20 09:30 105 22 95/55 (68) 100 01/12/20 09:00 114 23 103/54 (70) 100 01/12/20 08:56 108 26 100 Mechanical Ventilator 30 01/12/20 08:55 108 22 30 01/12/20 08:30 110 23 110/58 (75) 100 01/12/20 08:00 98.0 111 22 114/57 (76) 99 01/12/20 08:00 Mechanical Ventilator 01/12/20 08:00 30 01/12/20 07:11 109 22 30 01/12/20 07:00 102 21 95/54 (68) 100 01/12/20 06:45 104 21 88/50 (63) 100 01/12/20 06:30 108 22 92/47 (62) 100 01/12/20 06:00 108 22 99/51 (67) 100 01/12/20 05:30 111 22 108/54 (72) 99 01/12/20 05:01 115 22 30 01/12/20 05:00 111 23 95/47 (63) 100 01/12/20 04:30 112 23 92/49 (63) 100 01/12/20 04:00 100.0 115 22 95/46 (62) 97 01/12/20 04:00 Mechanical Ventilator 01/12/20 04:00 30 01/12/20 04:00 109 01/12/20 03:40 100.0 01/12/20 03:30 123 25 96/52 (67) 98 01/12/20 03:00 100.5 121 24 106/57 (73) 97 01/12/20 02:40 117 23 100 01/12/20 02:30 120 23 110/55 (73) 100 01/12/20 02:00 118 20 108/61 (77) 100 01/12/20 01:30 114 22 92/48 (63) 100 01/12/20 01:00 126 25 100 01/12/20 01:00 124 23 133/67 (89) 100 01/12/20 00:30 122 23 108/66 (80) 100 01/12/20 00:00 99.5 117 22 100/64 (76) 100 01/12/20 00:00 Mechanical Ventilator 01/12/20 00:00 50 01/12/20 00:00 115 01/11/20 23:30 117 22 97/64 (75) 100 01/11/20 23:00 118 24 97/60 (72) 100 01/11/20 22:45 121 25 124/66 (85) 100 01/11/20 22:39 116 23 100 01/11/20 22:30 116 25 100/59 (73) 100 01/11/20 22:15 114 23 92/60 (71) 100 01/11/20 22:00 116 25 106/56 (73) 100 01/11/20 21:45 119 26 98/50 (66) 100 01/11/20 21:30 121 27 105/47 (66) 100 01/11/20 21:15 116 27 103/60 (74) 100 01/11/20 21:04 104/64 01/11/20 21:00 115 28 93/52 (66) 100 01/11/20 20:45 116 29 84/54 (64) 100 01/11/20 20:44 116 29 100 01/11/20 20:30 113 27 86/53 (64) 100 01/11/20 20:15 114 28 83/50 (61) 100 01/11/20 20:00 Mechanical Ventilator 01/11/20 20:00 97.5 115 39 89/73 (78) 89 01/11/20 20:00 60 01/11/20 19:45 118 27 104/64 (77) 100 01/11/20 19:35 117 01/11/20 19:30 113 24 100/56 (71) 100 01/11/20 19:15 115 28 104/58 (73) 100 01/11/20 19:00 116 27 107/64 (78) 100 01/11/20 18:45 112 23 111/59 (76) 100 01/11/20 18:41 114 27 100 01/11/20 18:40 114 27 100 Mechanical Ventilator 60 01/11/20 18:30 112 27 112/63 (79) 100 01/11/20 18:15 111 27 108/61 (77) 100 01/11/20 18:00 108 26 107/59 (75) 100 01/11/20 17:45 108 23 100/53 (69) 100 01/11/20 17:35 106 25 100 01/11/20 17:30 108 24 111/59 (76) 100 01/11/20 17:15 110 26 101/54 (70) 100 01/11/20 17:00 109 24 102/58 (73) 100 01/11/20 16:45 108 28 101/76 (84) 100 01/11/20 16:30 106 26 109/78 (88) 100 01/11/20 16:15 105 25 121/72 (88) 100 01/11/20 16:00 97.9 105 25 122/68 (86) 100 01/11/20 16:00 60 01/11/20 16:00 Mechanical Ventilator 01/11/20 16:00 104 01/11/20 15:45 105 25 106/64 (78) 100 01/11/20 15:30 106 23 113/61 (78) 100 01/11/20 15:15 104 25 99/54 (69) 100 01/11/20 15:00 109 25 95/49 (64) 100 01/11/20 14:45 113 24 82/54 (63) 100 01/11/20 14:30 117 29 98/44 (62) 100 01/11/20 14:26 117 20 100 01/11/20 14:15 121 22 124/77 (93) 100 01/11/20 14:00 108 22 140/60 (86) 100 01/11/20 14:00 100 01/11/20 13:45 70/47 01/11/20 13:00 111 28 90/47 (61) 100 01/11/20 12:00 97.2 108 27 92/59 (70) 99 01/11/20 12:00 110 01/11/20 12:00 Venturi Mask 01/11/20 12:00 92/59 Intake and Output 01/11/20 01/12/20 19:00 07:00 Intake Total 1761.875 ml 1135.0 ml Output Total 230 ml 240 ml Balance 1531.875 ml 895.0 ml IV Total 1761.875 ml 1135.0 ml Output Urine Total 230 ml 240 ml # Bowel Movements 54 3 Current Medications Medications (Trade) Dose Ordered Sig/Jesse Route PRN Reason Start Time Stop Time Status Last Admin Dose Admin Acetaminophen (Tylenol) 650 mg Q4H PRN ORAL PRNH/TEMP 01/05/20 20:15 02/04/20 20:14 01/12/20 03:10 Albuterol/ Ipratropium (Albuterol/ Ipratropium) 3 ml Q4H PRN HHN Bronchospasm 01/10/20 18:56 11/10/20 18:55 Allopurinol (allopurinoL) 300 mg BID NG 01/09/20 18:00 02/06/20 14:14 01/12/20 08:00 Aluminum Hydroxide (Amphojel) 1,920 mg Q6HR NG 01/11/20 10:00 02/10/20 09:59 01/12/20 05:46 Benztropine Mesylate (Cogentin) 1.5 mg BID NG 01/11/20 09:00 02/05/20 08:59 01/12/20 08:01 Bisacodyl (Dulcolax) 10 mg DAILY PRN RECTAL Constipation 01/05/20 20:15 04/04/20 20:14 Chlorhexidine Gluconate (Navya-Hex 2%) 1 applic DAILY@1999 TOPIC 01/11/20 20:00 04/10/20 19:59 01/11/20 20:23 Clopidogrel Bisulfate (Plavix) 75 mg DAILY NG 01/11/20 09:00 02/05/20 08:59 01/11/20 09:25 Dextrose (Dextrose 50%) 25 ml Q30M PRN IV Hypoglycemia 01/05/20 20:15 04/04/20 20:14 Dextrose (Dextrose 50%) 50 ml Q30M PRN IV Hypoglycemia 01/05/20 20:15 04/04/20 20:14 Docusate Sodium (Colace) 200 mg DAILY ORAL 01/06/20 09:00 02/05/20 08:59 01/11/20 09:24 Gadobutrol (Gadavist) 7.5 mmol NOW PRN IV Radiology Procedure 01/11/20 09:15 01/15/20 09:14 Heparin Sodium (Porcine) (Heparin 5000 units/ml) 5,000 units Q12HR SUBQ 01/07/20 21:00 02/20/20 08:59 01/11/20 20:24 Insulin Aspart (NovoLOG) BEFORE MEALS AND HS SUBQ 01/05/20 21:00 04/04/20 20:59 01/11/20 05:54 Linaclotide (Linzess) 290 mcg BEFORE BREAKFAST ORAL 01/10/20 06:30 04/09/20 06:29 01/11/20 05:33 Morphine Sulfate (Morphine Sulfate) 2 mg Q4H PRN IVP For Pain 01/06/20 00:45 01/13/20 00:44 Norepinephrine Bitartrate 250 ml @ 0 mls/hr Q24H IV 01/11/20 12:00 01/14/20 11:29 01/12/20 10:23 Ondansetron HCl (Zofran) 4 mg Q6H PRN IVP Nausea & Vomiting 01/10/20 06:30 02/09/20 06:29 Oxymetazoline HCl (Afrin Nasal [place]) 2 spray Q12HR PRN NASAL dry nasal passage 01/11/20 08:00 04/10/20 07:59 Pantoprazole (Protonix) 40 mg EVERY 12 HOURS IVP 01/05/20 21:00 02/04/20 20:59 01/12/20 08:00 Piperacillin Sod/ Tazobactam Sod 2.25 gm/Dextrose 55 ml @ 110 mls/hr Q8H IV 01/11/20 18:00 01/18/20 17:59 01/12/20 02:08 Polyethylene Glycol (Miralax) 17 gm BEDTIME NG 01/11/20 21:00 02/08/20 20:59 Sennosides (Senokot) 8.6 mg QHS NG 01/11/20 21:00 02/04/20 20:59 Sodium Bicarbonate 50 ml/ Dextrose/Sodium Chloride 1,050 ml @ 100 mls/hr [id number] IV 01/12/20 03:00 02/11/20 02:59 01/12/20 03:08 Sodium Citrate (Bicitra) 30 ml EVERY 6 HOURS NG 01/09/20 18:00 02/07/20 17:59 01/12/20 05:46 Laboratory Tests 01/11/20 11:35: Hepatitis A IgM Antibody Negative, Hepatitis B Surface Antigen Negative, Hepatitis B Core IgM Antibody Negative, Hepatitis C Antibody <0.1, HIV (1&2) Antibody Rapid Negative 01/11/20 16:00: Arterial Blood pH 7.358, Arterial Blood Partial Pressure CO2 27.4L, Arterial Blood Partial Pressure O2 299.1H, Arterial Blood HCO3 15.1*L, Arterial Blood Oxygen Saturation 98.9, Arterial Blood Base Excess -9.4*L, Asael Test Positive 01/11/20 18:00: Urine Color Pale yellow, Urine Appearance Cloudy, Urine pH 5, Urine Specific [place] 1.015, Urine Protein 3+H, Urine Glucose (UA) Negative, Urine Ketones Negative, Urine Blood 5+H, Urine Nitrite Negative, Urine Bilirubin Negative, Urine Urobilinogen Normal, Urine Leukocyte Esterase 1+H, Urine RBC 60-80H, Urine WBC 2-4, Urine Squamous Epithelial Cells Occasional, Urine Amorphous Sediment ManyH, Urine Bacteria ModerateH 01/12/20 03:46: White Blood Count 2.3L, Red Blood Count 1.97L, Hemoglobin 5.8*L, Hematocrit 17.9L, Mean Corpuscular Volume 91, Mean Corpuscular Hemoglobin 29.6, Mean Corpuscular Hemoglobin Concent 32.6, Red Cell Distribution Width 19.0H, Platelet Count 58L, Mean Platelet Volume 7.9, Neutrophils (%) (Auto) , Lymphocytes (%) (Auto) , Monocytes (%) (Auto) , Eosinophils (%) (Auto) , Basophils (%) (Auto) , Differential Total Cells Counted 100, Neutrophils % (Manual) 49, Lymphocytes % (Manual) 24, Monocytes % (Manual) 12H, Eosinophils % (Manual) 2, Basophils % (Manual) 0, Band Neutrophils 13H, Nucleated Red Blood Cells 7, Platelet Estimate DecreasedL, Platelet Morphology Normal, Polychromasia 1+, Hypochromasia 2+, Anisocytosis 2+, Prothrombin Time 12.4H, Prothromb Time International Ratio 1.1, Fibrinogen 492H, D-Dimer 18.05H, Sodium Level 142, Potassium Level 2.9L, Chloride Level 105, Carbon Dioxide Level 27, Anion Gap 10, Blood Urea Nitrogen 40H, Creatinine 2.7H, Estimat Glomerular Filtration Rate 28.4, Glucose Level 117H, Uric Acid 8.7H, Calcium Level 7.5L, Phosphorus Level 3.9, Magnesium Level 1.8, Total Bilirubin 0.5, Direct Bilirubin 0.2, Gamma Glutamyl Transpeptidase 89H, Aspartate Amino Transf (AST/SGOT) 533H, Alanine Aminotransferase (ALT/SGPT) 63, Alkaline Phosphatase 131H, Total Protein 4.8L, Albumin 2.2L 01/12/20 05:30: White Blood Count 2.7L, Red Blood Count 1.94L, Hemoglobin 5.8*L, Hematocrit 17.4L, Mean Corpuscular Volume 90, Mean Corpuscular Hemoglobin 29.9, Mean Corpuscular Hemoglobin Concent 33.3, Red Cell Distribution Width 19.3H, Platelet Count 55L, Mean Platelet Volume 8.3, Neutrophils (%) (Auto) , Lymphocytes (%) (Auto) , Monocytes (%) (Auto) , Eosinophils (%) (Auto) , Basophils (%) (Auto) , Differential Total Cells Counted 100, Neutrophils % (Manual) 44L, Lymphocytes % (Manual) 28, Monocytes % (Manual) 13H, Eosinophils % (Manual) 0, Basophils % (Manual) 0, Band Neutrophils 15H, Nucleated Red Blood Cells 7, Platelet Estimate DecreasedL, Platelet Morphology Normal, Polychromasia 1+, Hypochromasia 2+, Anisocytosis 2+ 01/12/20 08:00: Arterial Blood pH 7.539H, Arterial Blood Partial Pressure CO2 30.3L, Arterial Blood Partial Pressure O2 77.7, Arterial Blood HCO3 25.3, Arterial Blood Oxygen Saturation 95.7, Arterial Blood Base Excess 2.5H, Asael Test Positive Height (Feet): 6 Height (Inches): 0.00 Weight (Pounds): 150 General Appearance: no apparent distress EENT: other - In ICU intubated Cardiovascular: tachycardia Respiratory/Chest: decreased breath sounds Abdomen: distended Dhiraj Biswas MD Jan 12, 2020 11:27
--- NOTE | 2020-01-12 13:09 | Consultation ---
History of Present Illness General Date patient seen: Jan 12, 2020 Chief Complaint: Altered Level of Consciousness Present Illness HPI 69 year old male critically [place] in [place] [facility] [place], leukocytosis, anemia, thrombocytopenia. 01/10 had right fem Temp HD emergent line placed for HD. today significant anemia. still with low plt. surgery called toe valuate for possible bleeding. patient seen, chart reviewed, patient examined. on vent. non responsive. no n/v Allergies: Coded Allergies: No Known Allergies (Unverified , 03/18/19) Medication History Scheduled Amlodipine Besylate (Norvasc), 5 MG ORAL DAILY, (Reported) Benztropine Mesylate* (Cogentin*), 1.5 MG PO BID, (Reported) Clopidogrel Bisulfate* (Plavix*), 75 MG ORAL DAILY, (Reported) Cranberry Fruit (Cranberry), 450 MG PO TWICE A DAY, (Reported) Docusate Sodium* (Colace*), 200 MG ORAL DAILY, (Reported) Insulin Lispro (Humalog), 0 SUBQ BID AC, (Reported) Metformin Hcl* (Metformin Hcl*), 500 MG ORAL BID WITH MEALS, (Reported) Multivitamins* (Multivitamins*), 1 TAB ORAL DAILY, (Reported) Sennosides (Senna), 17.2 MG ORAL QHS, (Reported) Tamsulosin HCl (Flomax), 0.4 MG ORAL BEDTIME, (Reported) Scheduled PRN Acetaminophen* (Acetaminophen 325MG Tablet*), 650 MG ORAL Q4H PRN for Mild Pain (Pain Scale 1-3), (Reported) Acetaminophen* (Acetaminophen 325MG Tablet*), 650 MG ORAL Q4H PRN for Prn Headache/Temp > 101, (Reported) Bisacodyl (Dulcolax), 10 MG RC DAILY PRN for Constipation, (Reported) Ipratropium/Albuterol Sulfate (DuoNeb 0.5-3(2.5)mg/3ml), 3 ML HHN Q4HR PRN for Shortness of Breath, (Reported) Magnesium Hydroxide* (Milk Of Magnesia*), 30 ML ORAL QHS PRN for Constipation, (Reported) Na Phos,M-B/Na Phos,Di-Ba (Fleet Enema), 133 ML RC EVERY OTHER DAY PRN for Constipation, (Reported) Patient History Limited by: medical condition History Provided By: Medical Record, PMD Healthcare decision maker Resuscitation status Advanced Directive on File Past Medical/Surgical History Past Medical/Surgical History: (1) Altered level of consciousness (2) Hypovolemic shock (3) Lactic acid acidosis (4) Hypernatremia (5) Paraplegia (6) Anemia (7) Diabetes (8) Weak (9) HTN (hypertension) (10) ARF (acute renal failure) (11) Hypercalcemia (12) Hyperuricemia (13) UTI (urinary tract infection) (14) Failure to thrive in adult (15) Dehydration Review of Systems All Other Systems: negative except mentioned in HPI ROS Narrative unable to obtain given medical condition Physical Exam General Appearance: lethargic, mild distress Lines, tubes and drains: central line, dialysis access, velasquez cath, other HEENT: atraumatic, anicteric, other Neck: supple, normal inspection, other Respiratory/Chest: no respiratory distress, no accessory muscle use, decreased breath sounds, on vent, other Cardiovascular/Chest: regularly irregular Abdomen: soft, no organomegaly, no mass, feeding tube, other Genitourinary/Rectal: normal rectal exam Extremities: normal inspection Skin Exam: warm/dry Neurologic: unresponsiveness Last 24 Hour Vital Signs Date Time Temp Pulse Resp B/P (MAP) Pulse Ox O2 Delivery O2 Flow Rate FiO2 01/12/20 12:30 103 20 98/52 (67) 100 01/12/20 12:00 30 01/12/20 12:00 101 20 106/51 (69) 100 01/12/20 12:00 Mechanical Ventilator 01/12/20 11:30 97.3 104 19 99/52 (68) 100 01/12/20 11:22 104 01/12/20 11:21 110 26 30 01/12/20 11:00 97.9 105 19 98/51 (67) 100 01/12/20 10:23 103/52 01/12/20 10:00 105 21 103/52 (69) 100 01/12/20 09:30 105 22 95/55 (68) 100 01/12/20 09:00 114 23 103/54 (70) 100 01/12/20 08:56 108 26 100 Mechanical Ventilator 30 01/12/20 08:55 108 22 30 01/12/20 08:30 110 23 110/58 (75) 100 01/12/20 08:00 98.0 111 22 114/57 (76) 99 01/12/20 08:00 Mechanical Ventilator 01/12/20 08:00 30 01/12/20 07:42 173 01/12/20 07:11 109 22 30 01/12/20 07:00 102 21 95/54 (68) 100 01/12/20 06:45 104 21 88/50 (63) 100 01/12/20 06:30 108 22 92/47 (62) 100 01/12/20 06:00 108 22 99/51 (67) 100 01/12/20 05:30 111 22 108/54 (72) 99 01/12/20 05:01 115 22 30 01/12/20 05:00 111 23 95/47 (63) 100 01/12/20 04:30 112 23 92/49 (63) 100 01/12/20 04:00 100.0 115 22 95/46 (62) 97 01/12/20 04:00 Mechanical Ventilator 01/12/20 04:00 30 01/12/20 04:00 109 01/12/20 03:40 100.0 01/12/20 03:30 123 25 96/52 (67) 98 01/12/20 03:00 100.5 121 24 106/57 (73) 97 01/12/20 02:40 117 23 100 01/12/20 02:30 120 23 110/55 (73) 100 01/12/20 02:00 118 20 108/61 (77) 100 01/12/20 01:30 114 22 92/48 (63) 100 01/12/20 01:00 126 25 100 01/12/20 01:00 124 23 133/67 (89) 100 01/12/20 00:30 122 23 108/66 (80) 100 01/12/20 00:00 99.5 117 22 100/64 (76) 100 01/12/20 00:00 Mechanical Ventilator 01/12/20 00:00 50 01/12/20 00:00 115 01/11/20 23:30 117 22 97/64 (75) 100 01/11/20 23:00 118 24 97/60 (72) 100 01/11/20 22:45 121 25 124/66 (85) 100 01/11/20 22:39 116 23 100 01/11/20 22:30 116 25 100/59 (73) 100 01/11/20 22:15 114 23 92/60 (71) 100 01/11/20 22:00 116 25 106/56 (73) 100 01/11/20 21:45 119 26 98/50 (66) 100 01/11/20 21:30 121 27 105/47 (66) 100 01/11/20 21:15 116 27 103/60 (74) 100 01/11/20 21:04 104/64 01/11/20 21:00 115 28 93/52 (66) 100 01/11/20 20:45 116 29 84/54 (64) 100 01/11/20 20:44 116 29 100 01/11/20 20:30 113 27 86/53 (64) 100 01/11/20 20:15 114 28 83/50 (61) 100 01/11/20 20:00 Mechanical Ventilator 01/11/20 20:00 97.5 115 39 89/73 (78) 89 01/11/20 20:00 60 01/11/20 19:45 118 27 104/64 (77) 100 01/11/20 19:35 117 01/11/20 19:30 113 24 100/56 (71) 100 01/11/20 19:15 115 28 104/58 (73) 100 01/11/20 19:00 116 27 107/64 (78) 100 01/11/20 18:45 112 23 111/59 (76) 100 01/11/20 18:41 114 27 100 01/11/20 18:40 114 27 100 Mechanical Ventilator 60 01/11/20 18:30 112 27 112/63 (79) 100 01/11/20 18:15 111 27 108/61 (77) 100 01/11/20 18:00 108 26 107/59 (75) 100 01/11/20 17:45 108 23 100/53 (69) 100 01/11/20 17:35 106 25 100 01/11/20 17:30 108 24 111/59 (76) 100 01/11/20 17:15 110 26 101/54 (70) 100 01/11/20 17:00 109 24 102/58 (73) 100 01/11/20 16:45 108 28 101/76 (84) 100 01/11/20 16:30 106 26 109/78 (88) 100 01/11/20 16:15 105 25 121/72 (88) 100 01/11/20 16:00 97.9 105 25 122/68 (86) 100 01/11/20 16:00 60 01/11/20 16:00 Mechanical Ventilator 01/11/20 16:00 104 01/11/20 15:45 105 25 106/64 (78) 100 01/11/20 15:30 106 23 113/61 (78) 100 01/11/20 15:15 104 25 99/54 (69) 100 01/11/20 15:00 109 25 95/49 (64) 100 01/11/20 14:45 113 24 82/54 (63) 100 01/11/20 14:30 117 29 98/44 (62) 100 01/11/20 14:26 117 20 100 01/11/20 14:15 121 22 124/77 (93) 100 01/11/20 14:00 108 22 140/60 (86) 100 01/11/20 14:00 100 01/11/20 13:45 70/47 Intake and Output 01/11/20 01/12/20 19:00 07:00 Intake Total 1761.875 ml 1135.0 ml Output Total 230 ml 240 ml Balance 1531.875 ml 895.0 ml IV Total 1761.875 ml 1135.0 ml Output Urine Total 230 ml 240 ml # Bowel Movements 54 3 Laboratory Tests Test 01/11/20 16:00 01/11/20 18:00 01/12/20 03:46 01/12/20 05:30 Arterial Blood pH 7.358 (7.350-7.450) Arterial Blood Partial Pressure CO2 27.4 mmHg (35.0-45.0) L Arterial Blood Partial Pressure O2 299.1 mmHg (75.0-100.0) H Arterial Blood HCO3 15.1 mmol/L (22.0-26.0) *L Arterial Blood Oxygen Saturation 98.9 % (95-100) Arterial Blood Base Excess -9.4 (-2-2) *L Asael Test Positive Urine Color Pale yellow Urine Appearance Cloudy Urine pH 5 (4.5-8.0) Urine Specific [place] 1.015 (1.005-1.035) Urine Protein 3+ (NEGATIVE) H Urine Glucose (UA) Negative (NEGATIVE) Urine Ketones Negative (NEGATIVE) Urine Blood 5+ (NEGATIVE) H Urine Nitrite Negative (NEGATIVE) Urine Bilirubin Negative (NEGATIVE) Urine Urobilinogen Normal MG/DL (0.0-1.0) Urine Leukocyte Esterase 1+ (NEGATIVE) H Urine RBC 60-80 /HPF (0 - 0) H Urine WBC 2-4 /HPF (0 - 0) Urine Squamous Epithelial Cells Occasional /LPF Urine Amorphous Sediment Many /LPF (NONE) H Urine Bacteria Moderate /HPF (NONE) H White Blood Count 2.3 K/UL (4.8-10.8) L 2.7 K/UL (4.8-10.8) L Red Blood Count 1.97 M/UL (4.70-6.10) L 1.94 M/UL (4.70-6.10) L Hemoglobin 5.8 G/DL (14.2-18.0) *L 5.8 G/DL (14.2-18.0) *L Hematocrit 17.9 % (42.0-52.0) L 17.4 % (42.0-52.0) L Mean Corpuscular Volume 91 FL (80-99) 90 FL (80-99) Mean Corpuscular Hemoglobin 29.6 PG (27.0-31.0) 29.9 PG (27.0-31.0) Mean Corpuscular Hemoglobin Concent 32.6 G/DL (32.0-36.0) 33.3 G/DL (32.0-36.0) Red Cell Distribution Width 19.0 % (11.6-14.8) H 19.3 % (11.6-14.8) H Platelet Count 58 K/UL (150-450) L 55 K/UL (150-450) L Mean Platelet Volume 7.9 FL (6.5-10.1) 8.3 FL (6.5-10.1) Neutrophils (%) (Auto) % (45.0-75.0) % (45.0-75.0) Lymphocytes (%) (Auto) % (20.0-45.0) % (20.0-45.0) Monocytes (%) (Auto) % (1.0-10.0) % (1.0-10.0) Eosinophils (%) (Auto) % (0.0-3.0) % (0.0-3.0) Basophils (%) (Auto) % (0.0-2.0) % (0.0-2.0) Differential Total Cells Counted 100 100 Neutrophils % (Manual) 49 % (45-75) 44 % (45-75) L Lymphocytes % (Manual) 24 % (20-45) 28 % (20-45) Monocytes % (Manual) 12 % (1-10) H 13 % (1-10) H Eosinophils % (Manual) 2 % (0-3) 0 % (0-3) Basophils % (Manual) 0 % (0-2) 0 % (0-2) Band Neutrophils 13 % (0-8) H 15 % (0-8) H Nucleated Red Blood Cells 7 /100 WBC 7 /100 WBC Platelet Estimate Decreased L Decreased L Platelet Morphology Normal Normal Polychromasia 1+ 1+ Hypochromasia 2+ 2+ Anisocytosis 2+ 2+ Prothrombin Time 12.4 SEC (9.30-11.50) H Prothromb Time International Ratio 1.1 (0.9-1.1) Fibrinogen 492 mg/dL (200-400) H D-Dimer 18.05 mg/L FEU (0.00-0.49) H Sodium Level 142 MMOL/L (136-145) Potassium Level 2.9 MMOL/L (3.5-5.1) L Chloride Level 105 MMOL/L (98-107) Carbon Dioxide Level 27 MMOL/L (21-32) Anion Gap 10 mmol/L (5-15) Blood Urea Nitrogen 40 mg/dL (7-18) H Creatinine 2.7 MG/DL (0.55-1.30) H Estimat Glomerular Filtration Rate 28.4 mL/min (>60) Glucose Level 117 MG/DL (74-106) H Uric Acid 8.7 MG/DL (2.6-7.2) H Calcium Level 7.5 MG/DL (8.5-10.1) L Phosphorus Level 3.9 MG/DL (2.5-4.9) Magnesium Level 1.8 MG/DL (1.8-2.4) Total Bilirubin 0.5 MG/DL (0.2-1.0) Direct Bilirubin 0.2 MG/DL (0.0-0.3) Gamma Glutamyl Transpeptidase 89 U/L (5-85) H Aspartate Amino Transf (AST/SGOT) 533 U/L (15-37) H Alanine Aminotransferase (ALT/SGPT) 63 U/L (12-78) Alkaline Phosphatase 131 U/L (46-116) H Total Protein 4.8 G/DL (6.4-8.2) L Albumin 2.2 G/DL (3.4-5.0) L Test 01/12/20 08:00 Arterial Blood pH 7.539 (7.350-7.450) Arterial Blood Partial Pressure CO2 30.3 mmHg (35.0-45.0) L Arterial Blood Partial Pressure O2 77.7 mmHg (75.0-100.0) Arterial Blood HCO3 25.3 mmol/L (22.0-26.0) Arterial Blood Oxygen Saturation 95.7 % (95-100) Arterial Blood Base Excess 2.5 (-2-2) H Asael Test Positive Microbiology Date/Time Source Procedure Growth Status 01/11/20 18:00 Urine,Clean Catch Urine Culture - Preliminary NO GROWTH Resulted Height (Feet): 6 Height (Inches): 0.00 Weight (Pounds): 150 Medications Current Medications Medications (Trade) Dose Ordered Sig/Jesse Route PRN Reason Start Time Stop Time Status Last Admin Dose Admin Acetaminophen (Tylenol) 650 mg Q4H PRN ORAL PRNH/TEMP 01/05/20 20:15 02/04/20 20:14 01/12/20 03:10 Albuterol/ Ipratropium (Albuterol/ Ipratropium) 3 ml Q4H PRN HHN Bronchospasm 01/10/20 18:56 01/15/20 18:55 Allopurinol (allopurinoL) 300 mg BID NG 01/09/20 18:00 02/06/20 14:14 01/12/20 08:00 Aluminum Hydroxide (Amphojel) 1,920 mg Q6HR NG 01/11/20 10:00 02/10/20 09:59 01/12/20 05:46 Benztropine Mesylate (Cogentin) 1.5 mg BID NG 01/11/20 09:00 02/05/20 08:59 01/12/20 08:01 Bisacodyl (Dulcolax) 10 mg DAILY PRN RECTAL Constipation 01/05/20 20:15 04/04/20 20:14 Chlorhexidine Gluconate (Navya-Hex 2%) 1 applic DAILY@2000 TOPIC 01/11/20 20:00 04/10/20 19:59 01/11/20 20:23 Clopidogrel Bisulfate (Plavix) 75 mg DAILY NG 01/11/20 09:00 02/05/20 08:59 01/11/20 09:25 Dextrose (Dextrose 50%) 25 ml Q30M PRN IV Hypoglycemia 01/05/20 20:15 04/04/20 20:14 Dextrose (Dextrose 50%) 50 ml Q30M PRN IV Hypoglycemia 01/05/20 20:15 04/04/20 20:14 Dextrose/Sodium Chloride 1,000 ml @ 75 mls/hr [id number] IV 01/12/20 12:00 02/11/20 11:59 Docusate Sodium (Colace) 200 mg DAILY ORAL 01/06/20 09:00 02/05/20 08:59 01/11/20 09:24 Gadobutrol (Gadavist) 7.5 mmol NOW PRN IV Radiology Procedure 01/11/20 09:15 01/15/20 09:14 Heparin Sodium (Porcine) (Heparin 5000 units/ml) 5,000 units Q12HR SUBQ 01/07/20 21:00 02/20/20 08:59 01/11/20 20:24 Insulin Aspart (NovoLOG) BEFORE MEALS AND HS SUBQ 01/05/20 21:00 04/04/20 20:59 01/11/20 05:54 Linaclotide (Linzess) 290 mcg BEFORE BREAKFAST ORAL 01/10/20 06:30 04/09/20 06:29 01/11/20 05:33 Morphine Sulfate (Morphine Sulfate) 2 mg Q4H PRN IVP For Pain 01/06/20 00:45 01/13/20 00:44 Norepinephrine Bitartrate 250 ml @ 0 mls/hr Q24H IV 01/11/20 12:00 01/14/20 11:29 01/12/20 10:23 Ondansetron HCl (Zofran) 4 mg Q6H PRN IVP Nausea & Vomiting 01/10/20 06:30 02/09/20 06:29 Oxymetazoline HCl (Afrin Nasal [place]) 2 spray Q12HR PRN NASAL dry nasal passage 01/11/20 08:00 04/10/20 07:59 Pantoprazole (Protonix) 40 mg EVERY 12 HOURS IVP 01/05/20 21:00 02/04/20 20:59 01/12/20 08:00 Piperacillin Sod/ Tazobactam Sod 2.25 gm/Dextrose 55 ml @ 110 mls/hr Q8H IV 01/11/20 18:00 01/18/20 17:59 01/12/20 02:08 Polyethylene Glycol (Miralax) 17 gm BEDTIME NG 01/11/20 21:00 02/08/20 20:59 Sennosides (Senokot) 8.6 mg QHS NG 01/11/20 21:00 02/04/20 20:59 Assessment/Plan Problem List: (1) Altered level of consciousness ICD Codes: R40.4 - Transient alteration of awareness SNOMED: 5220658 (2) Hypovolemic shock Assessment & Plan: resuscitation Gallbladder demonstrates sludge. No stones, wall thickening, nor pericholecystic fluid. Patient unable to report Wilson's sign Common bile duct measures 3 mm in diameter. No intrahepatic biliary ductal dilatation. Liver demonstrates coarsened echogenicity and surface nodularity. It demonstrates multiple cysts. Portal vein and hepatic veins are patent. The pancreas demonstrates 3 hypoechoic lesions in the head and body, measuring approximately 5 mm in diameter each. Spleen is unremarkable, poorly visualized. Left kidney measures 11.4 cm in length. Right kidney measures 11.3 cm length. Both kidneys demonstrate normal echogenicity. There is severe right and moderate left hydronephrosis. Echogenic foci are seen in the left renal sinus and collecting system. Bladder is empty, contains a Velasquez catheter. Non-aneurysmal abdominal aorta . There are bilateral pleural effusions Impression: Bilateral right greater than left hydronephrosis, increased since prior study of 03/20/2019. Etiology not demonstrated Empty bladder with a Velasquez catheter 3 hypoechoic lesions within the pancreatic head and body, each measuring about 5 mm. Appearance nonspecific. Recommend further evaluation with pancreas protocol MRI Bilateral pleural effusions Echogenic liver, consistent with hepatocellular disease. Surface likely nodularity raises concern for cirrhosis Gallbladder sludge. Negative for dilated bile ducts Probable nonobstructive left intrarenal calculi Multiple hepatic cysts ICD Codes: R57.1 - Hypovolemic shock SNOMED: 61432436 (3) Lactic acid acidosis ICD Codes: E87.2 - Acidosis SNOMED: 23316064 (4) Hypernatremia ICD Codes: E87.0 - Hyperosmolality and hypernatremia SNOMED: 948735312 (5) Paraplegia ICD Codes: G82.20 - Paraplegia, unspecified SNOMED: 80505120 (6) Anemia Assessment & Plan: no active bleeding noted no large hematoma dressings okay likely related to heme will monitor transfuse prbc with HD trend labs thank you ICD Codes: D64.9 - Anemia, unspecified SNOMED: 378907368 (7) Diabetes ICD Codes: E11.9 - Type 2 diabetes mellitus without complications SNOMED: 36992705 (8) Weak ICD Codes: R53.1 - Weakness SNOMED: 04052463 (9) HTN (hypertension) ICD Codes: I10 - Essential (primary) hypertension SNOMED: 67803887 (10) ARF (acute renal failure) ICD Codes: N17.9 - Acute kidney failure, unspecified SNOMED: 65456734 (11) Hypercalcemia ICD Codes: E83.52 - Hypercalcemia SNOMED: 64875270 (12) Hyperuricemia ICD Codes: E79.0 - Hyperuricemia without signs of inflammatory arthritis and tophaceous disease SNOMED: 91397411 (13) Dehydration ICD Codes: E86.0 - Dehydration SNOMED: 91904217 (14) UTI (urinary tract infection) ICD Codes: N39.0 - Urinary tract infection, site not specified SNOMED: 72686444 (15) Failure to thrive in adult Assessment & Plan: DAILY ESTIMATED NEEDS: Needs based on underweight, suspected wt loss, HD, CRITICAL CARE/ 57.6kg 25-33 kcals/kg 7037-2755 total kcals 1.2-2 g protein/kg 69-115 g total protein 25-30 mL/kg 5341-9070 total fluid mLs NUTRITION DIAGNOSIS: *Increased kcal and pro needs r/t underweight status, suspected significant wt loss as evidenced by pt @ 71% IBW w/ BMI 17.2, underweight per guidelines, w/ suspected signficant wt loss of 30lbs/19% in 10 months. * Swallowing difficulty R/T dysphagia, respiratory status as evidenced by s/p NGT insertion (01/08), now NPO, s/p code blue (01/10), orally intubated. CURRENT TF:NPO ENTERAL NUTRITION RECOMMENDATIONS: WHEN HEMODYNAMICALLY STABLE: Nepro @ 40ml/hr x 24 hrs to provide 960ml, 1728kcal, 77g prot, 698ml free water WHEN HEMODYNAMICALLY STABLE AND MEDICALLY APPROPRIATE TO FEED: -> initiate TF @ 5ml/hr x 6hrs, advance slowly 5ml q 4-6 hrs as tolerated to goal rate -> HOB over 30 degrees/ water flush per MD WITHOUT HEMODYNAMIC STABILITY -> If medically appropriate to feed, rec trophic feeding of Nepro @ 5ml/hr x 24 hrs to maintain gut integrity ICD Codes: R62.7 - Adult failure to thrive SNOMED: 578823078 Lázaro Jenkins Jan 12, 2020 13:09
--- NOTE | 2020-01-12 14:19 | Cardiac Electrophysiology PN ---
Assessment/Plan Assessment/Plan 1. Altered mental status due to severe dehydration in view of sodium of 160 and acute renal failure. On IV fluids and IV antibiotics. Ruled out for SC. Na 132 now 2. Hypotension. Off BP meds ([facility], the patient was on amlodipine and metoprolol) Will give another 500 ccNS. On 6 mcg of Levophed 3. History of CVA, Plavix DCed in view of hematuria. 4. Advanced dementia. NGT feeding 5. Diabetes. 6. Acute renal failure. The patient is being hydrated.Cr 4.2. May need HD 7. Hematuria 8. Anemia likely due to hematuria and iv fluid 9. Shock liver with increase AST>2000 DW RN Subjective Subjective In ICU for resiratory failure and BP down to 60s Stool OB still pending. Plavix and heparin DCed as is having hematuria and HB dropped 2 gms.Has NGT in Objective Last 24 Hour Vital Signs Date Time Temp Pulse Resp B/P (MAP) Pulse Ox O2 Delivery O2 Flow Rate FiO2 01/12/20 13:18 103 34 30 01/12/20 12:30 103 20 98/52 (67) 100 01/12/20 12:00 30 01/12/20 12:00 101 20 106/51 (69) 100 01/12/20 12:00 Mechanical Ventilator 01/12/20 11:30 97.3 104 19 99/52 (68) 100 01/12/20 11:22 104 01/12/20 11:21 110 26 30 01/12/20 11:00 97.9 105 19 98/51 (67) 100 01/12/20 10:23 103/52 01/12/20 10:00 105 21 103/52 (69) 100 01/12/20 09:30 105 22 95/55 (68) 100 01/12/20 09:00 114 23 103/54 (70) 100 01/12/20 08:56 108 26 100 Mechanical Ventilator 30 01/12/20 08:55 108 22 30 01/12/20 08:30 110 23 110/58 (75) 100 01/12/20 08:00 98.0 111 22 114/57 (76) 99 01/12/20 08:00 Mechanical Ventilator 01/12/20 08:00 30 01/12/20 07:42 173 01/12/20 07:11 109 22 30 01/12/20 07:00 102 21 95/54 (68) 100 01/12/20 06:45 104 21 88/50 (63) 100 01/12/20 06:30 108 22 92/47 (62) 100 01/12/20 06:00 108 22 99/51 (67) 100 01/12/20 05:30 111 22 108/54 (72) 99 01/12/20 05:01 115 22 30 01/12/20 05:00 111 23 95/47 (63) 100 01/12/20 04:30 112 23 92/49 (63) 100 01/12/20 04:00 100.0 115 22 95/46 (62) 97 01/12/20 04:00 Mechanical Ventilator 01/12/20 04:00 30 01/12/20 04:00 109 01/12/20 03:40 100.0 01/12/20 03:30 123 25 96/52 (67) 98 01/12/20 03:00 100.5 121 24 106/57 (73) 97 01/12/20 02:40 117 23 100 01/12/20 02:30 120 23 110/55 (73) 100 01/12/20 02:00 118 20 108/61 (77) 100 01/12/20 01:30 114 22 92/48 (63) 100 01/12/20 01:00 126 25 100 01/12/20 01:00 124 23 133/67 (89) 100 01/12/20 00:30 122 23 108/66 (80) 100 01/12/20 00:00 99.5 117 22 100/64 (76) 100 01/12/20 00:00 Mechanical Ventilator 01/12/20 00:00 50 01/12/20 00:00 115 01/11/20 23:30 117 22 97/64 (75) 100 01/11/20 23:00 118 24 97/60 (72) 100 01/11/20 22:45 121 25 124/66 (85) 100 01/11/20 22:39 116 23 100 01/11/20 22:30 116 25 100/59 (73) 100 01/11/20 22:15 114 23 92/60 (71) 100 01/11/20 22:00 116 25 106/56 (73) 100 01/11/20 21:45 119 26 98/50 (66) 100 01/11/20 21:30 121 27 105/47 (66) 100 01/11/20 21:15 116 27 103/60 (74) 100 01/11/20 21:04 104/64 01/11/20 21:00 115 28 93/52 (66) 100 01/11/20 20:45 116 29 84/54 (64) 100 01/11/20 20:44 116 29 100 01/11/20 20:30 113 27 86/53 (64) 100 01/11/20 20:15 114 28 83/50 (61) 100 01/11/20 20:00 Mechanical Ventilator 01/11/20 20:00 97.5 115 39 89/73 (78) 89 01/11/20 20:00 60 01/11/20 19:45 118 27 104/64 (77) 100 01/11/20 19:35 117 01/11/20 19:30 113 24 100/56 (71) 100 01/11/20 19:15 115 28 104/58 (73) 100 01/11/20 19:00 116 27 107/64 (78) 100 01/11/20 18:45 112 23 111/59 (76) 100 01/11/20 18:41 114 27 100 01/11/20 18:40 114 27 100 Mechanical Ventilator 60 01/11/20 18:30 112 27 112/63 (79) 100 01/11/20 18:15 111 27 108/61 (77) 100 01/11/20 18:00 108 26 107/59 (75) 100 01/11/20 17:45 108 23 100/53 (69) 100 01/11/20 17:35 106 25 100 01/11/20 17:30 108 24 111/59 (76) 100 01/11/20 17:15 110 26 101/54 (70) 100 01/11/20 17:00 109 24 102/58 (73) 100 01/11/20 16:45 108 28 101/76 (84) 100 01/11/20 16:30 106 26 109/78 (88) 100 01/11/20 16:15 105 25 121/72 (88) 100 01/11/20 16:00 97.9 105 25 122/68 (86) 100 01/11/20 16:00 60 11/6/20 16:00 Mechanical Ventilator 01/11/20 16:00 104 01/11/20 15:45 105 25 106/64 (78) 100 01/11/20 15:30 106 23 113/61 (78) 100 01/11/20 15:15 104 25 99/54 (69) 100 01/11/20 15:00 109 25 95/49 (64) 100 01/11/20 14:45 113 24 82/54 (63) 100 01/11/20 14:30 117 29 98/44 (62) 100 01/11/20 14:26 117 20 100 Intake and Output 01/11/20 01/12/20 19:00 07:00 Intake Total 1761.875 ml 1135.0 ml Output Total 230 ml 240 ml Balance 1531.875 ml 895.0 ml IV Total 1761.875 ml 1135.0 ml Output Urine Total 230 ml 240 ml # Bowel Movements 54 3 Laboratory Tests Test 01/11/20 16:00 01/11/20 18:00 01/12/20 03:46 01/12/20 05:30 Arterial Blood pH 7.358 (7.350-7.450) Arterial Blood Partial Pressure CO2 27.4 mmHg (35.0-45.0) L Arterial Blood Partial Pressure O2 299.1 mmHg (75.0-100.0) H Arterial Blood HCO3 15.1 mmol/L (22.0-26.0) *L Arterial Blood Oxygen Saturation 98.9 % (95-100) Arterial Blood Base Excess -9.4 (-2-2) *L Asael Test Positive Urine Color Pale yellow Urine Appearance Cloudy Urine pH 5 (4.5-8.0) Urine Specific [place] 1.015 (1.005-1.035) Urine Protein 3+ (NEGATIVE) H Urine Glucose (UA) Negative (NEGATIVE) Urine Ketones Negative (NEGATIVE) Urine Blood 5+ (NEGATIVE) H Urine Nitrite Negative (NEGATIVE) Urine Bilirubin Negative (NEGATIVE) Urine Urobilinogen Normal MG/DL (0.0-1.0) Urine Leukocyte Esterase 1+ (NEGATIVE) H Urine RBC 60-80 /HPF (0 - 0) H Urine WBC 2-4 /HPF (0 - 0) Urine Squamous Epithelial Cells Occasional /LPF Urine Amorphous Sediment Many /LPF (NONE) H Urine Bacteria Moderate /HPF (NONE) H White Blood Count 2.3 K/UL (4.8-10.8) L 2.7 K/UL (4.8-10.8) L Red Blood Count 1.97 M/UL (4.70-6.10) L 1.94 M/UL (4.70-6.10) L Hemoglobin 5.8 G/DL (14.2-18.0) *L 5.8 G/DL (14.2-18.0) *L Hematocrit 17.9 % (42.0-52.0) L 17.4 % (42.0-52.0) L Mean Corpuscular Volume 91 FL (80-99) 90 FL (80-99) Mean Corpuscular Hemoglobin 29.6 PG (27.0-31.0) 29.9 PG (27.0-31.0) Mean Corpuscular Hemoglobin Concent 32.6 G/DL (32.0-36.0) 33.3 G/DL (32.0-36.0) Red Cell Distribution Width 19.0 % (11.6-14.8) H 19.3 % (11.6-14.8) H Platelet Count 58 K/UL (150-450) L 55 K/UL (150-450) L Mean Platelet Volume 7.9 FL (6.5-10.1) 8.3 FL (6.5-10.1) Neutrophils (%) (Auto) % (45.0-75.0) % (45.0-75.0) Lymphocytes (%) (Auto) % (20.0-45.0) % (20.0-45.0) Monocytes (%) (Auto) % (1.0-10.0) % (1.0-10.0) Eosinophils (%) (Auto) % (0.0-3.0) % (0.0-3.0) Basophils (%) (Auto) % (0.0-2.0) % (0.0-2.0) Differential Total Cells Counted 100 100 Neutrophils % (Manual) 49 % (45-75) 44 % (45-75) L Lymphocytes % (Manual) 24 % (20-45) 28 % (20-45) Monocytes % (Manual) 12 % (1-10) H 13 % (1-10) H Eosinophils % (Manual) 2 % (0-3) 0 % (0-3) Basophils % (Manual) 0 % (0-2) 0 % (0-2) Band Neutrophils 13 % (0-8) H 15 % (0-8) H Nucleated Red Blood Cells 7 /100 WBC 7 /100 WBC Platelet Estimate Decreased L Decreased L Platelet Morphology Normal Normal Polychromasia 1+ 1+ Hypochromasia 2+ 2+ Anisocytosis 2+ 2+ Prothrombin Time 12.4 SEC (9.30-11.50) H Prothromb Time International Ratio 1.1 (0.9-1.1) Fibrinogen 492 mg/dL (200-400) H D-Dimer 18.05 mg/L FEU (0.00-0.49) H Sodium Level 142 MMOL/L (136-145) Potassium Level 2.9 MMOL/L (3.5-5.1) L Chloride Level 105 MMOL/L (98-107) Carbon Dioxide Level 27 MMOL/L (21-32) Anion Gap 10 mmol/L (5-15) Blood Urea Nitrogen 40 mg/dL (7-18) H Creatinine 2.7 MG/DL (0.55-1.30) H Estimat Glomerular Filtration Rate 28.4 mL/min (>60) Glucose Level 117 MG/DL (74-106) H Uric Acid 8.7 MG/DL (2.6-7.2) H Calcium Level 7.5 MG/DL (8.5-10.1) L Phosphorus Level 3.9 MG/DL (2.5-4.9) Magnesium Level 1.8 MG/DL (1.8-2.4) Total Bilirubin 0.5 MG/DL (0.2-1.0) Direct Bilirubin 0.2 MG/DL (0.0-0.3) Gamma Glutamyl Transpeptidase 89 U/L (5-85) H Aspartate Amino Transf (AST/SGOT) 533 U/L (15-37) H Alanine Aminotransferase (ALT/SGPT) 63 U/L (12-78) Alkaline Phosphatase 131 U/L (46-116) H Total Protein 4.8 G/DL (6.4-8.2) L Albumin 2.2 G/DL (3.4-5.0) L Test 01/12/20 08:00 Arterial Blood pH 7.539 (7.350-7.450) Arterial Blood Partial Pressure CO2 30.3 mmHg (35.0-45.0) L Arterial Blood Partial Pressure O2 77.7 mmHg (75.0-100.0) Arterial Blood HCO3 25.3 mmol/L (22.0-26.0) Arterial Blood Oxygen Saturation 95.7 % (95-100) Arterial Blood Base Excess 2.5 (-2-2) H Asael Test Positive Microbiology Date/Time Source Procedure Growth Status 01/11/20 18:00 Urine,Clean Catch Urine Culture - Preliminary NO GROWTH Resulted Objective HEAD AND NECK: No JVD.NGT in place LUNGS: Coarse rhonchi. CARDIOVASCULAR: Regular S1 and S2 with no gallop. ABDOMEN: Soft. EXTREMITIES: No pitting edema. Kevin Lopez MD Jan 12, 2020 14:19
--- NOTE | 2020-01-12 14:46 | Infectious Diseases Prog Note ---
Assessment/Plan Assessment: Shock- likely combination sepstic and metabolic derrangemetns Probable UTI -01/10 u/a wbc 60-80, nit neg, leuk +3 Probable PNA -01/10 CXR: Bilateral interstitial and airspace infiltrates versus edema persists. COVID19 neg -01/04 rapid COVID PCR neg x1 influenza PCR neg CXR: Mild interstitial vascular prominence. No focal infiltrate or consolidation. Acute resp failure- 2ry to vol overload and metabolic acidosis- on VM now 01/10 Low grade fever No leukocytosis> pancytopenia -u/a neg, ucx neg Tachycardia, SP-2 ry to severe dehydration- no evidence of infection AVIS,worsened Hypernatremia>Hyponatremia R>L hydronephrosis Pancreatic lesions -Abd US: Bilateral right greater than left hydronephrosis, increased since prior study of 03/20/2019. Etiology not demonstrated. Empty bladder with a Mathew catheter. 3 hypoechoic lesions within the pancreatic head and body, each measuring about 5 mm. Appearance nonspecific. Bilateral pleural effusions. Echogenic liver, consistent with hepatocellular disease. Surface likely nodularity raises concern for cirrhosis. Gallbladder sludge. Negative for dilated bile ducts. Probable nonobstructive left intrarenal calculi. Multiple hepatic cysts Acute on chronic encephalopathy -CT head: 1. Markedly limited, near nondiagnostic evaluation due to motion artifact. Grossly, age-related changes and small vessel disease of aging are noted. Again grossly, no acute intracranial pathology is detected. If there is a high degree of concern or if there is concern for subtle abnormalities, magnetic resonance imaging of the brain with diffusion-weighted sequences should be performed, due to the markedly limited nature of the current study. Close clinical correlation is necessary. HTN COPD DM2 paraplegia Dementia non verbal [place] resident (elan mora) Plan: -Continue Zosyn #2 and add IV Vancomycin -01/06 SP Ceftriaxone #2 -01/04 Sp IV Vancomycin x1, Cefepime x1 -f/u cx -Monitor CBC/CMP, temperatures -Renal, cards f/u -f/u ucx, Bcx x2 -sp cx Thank you for consulting [facility]. Will continue to follow along with you. Discussed with RN. Subjective Allergies: Coded Allergies: No Known Allergies (Unverified , 03/18/19) Tm 100.5 on levophed at 6 intubated Objective Last 24 Hour Vital Signs Date Time Temp Pulse Resp B/P (MAP) Pulse Ox O2 Delivery O2 Flow Rate FiO2 01/12/20 13:18 103 34 30 01/12/20 12:30 103 20 98/52 (67) 100 01/12/20 12:00 30 01/12/20 12:00 101 20 106/51 (69) 100 01/12/20 12:00 Mechanical Ventilator 01/12/20 11:30 97.3 104 19 99/52 (68) 100 01/12/20 11:22 104 01/12/20 11:21 110 26 30 01/12/20 11:00 97.9 105 19 98/51 (67) 100 01/12/20 10:23 103/52 01/12/20 10:00 105 21 103/52 (69) 100 01/12/20 09:30 105 22 95/55 (68) 100 01/12/20 09:00 114 23 103/54 (70) 100 01/12/20 08:56 108 26 100 Mechanical Ventilator 30 01/12/20 08:55 108 22 30 01/12/20 08:30 110 23 110/58 (75) 100 01/12/20 08:00 98.0 111 22 114/57 (76) 99 01/12/20 08:00 Mechanical Ventilator 01/12/20 08:00 30 01/12/20 07:42 173 01/12/20 07:11 109 22 30 01/12/20 07:00 102 21 95/54 (68) 100 01/12/20 06:45 104 21 88/50 (63) 100 01/12/20 06:30 108 22 92/47 (62) 100 01/12/20 06:00 108 22 99/51 (67) 100 01/12/20 05:30 111 22 108/54 (72) 99 01/12/20 05:01 115 22 30 01/12/20 05:00 111 23 95/47 (63) 100 01/12/20 04:30 112 23 92/49 (63) 100 01/12/20 04:00 100.0 115 22 95/46 (62) 97 01/12/20 04:00 Mechanical Ventilator 01/12/20 04:00 30 01/12/20 04:00 109 01/12/20 03:40 100.0 01/12/20 03:30 123 25 96/52 (67) 98 01/12/20 03:00 100.5 121 24 106/57 (73) 97 01/12/20 02:40 117 23 100 01/12/20 02:30 120 23 110/55 (73) 100 01/12/20 02:00 118 20 108/61 (77) 100 01/12/20 01:30 114 22 92/48 (63) 100 01/12/20 01:00 126 25 100 01/12/20 01:00 124 23 133/67 (89) 100 01/12/20 00:30 122 23 108/66 (80) 100 01/12/20 00:00 99.5 117 22 100/64 (76) 100 01/12/20 00:00 Mechanical Ventilator 01/12/20 00:00 50 01/12/20 00:00 115 01/11/20 23:30 117 22 97/64 (75) 100 01/11/20 23:00 118 24 97/60 (72) 100 01/11/20 22:45 121 25 124/66 (85) 100 01/11/20 22:39 116 23 100 01/11/20 22:30 116 25 100/59 (73) 100 01/11/20 22:15 114 23 92/60 (71) 100 01/11/20 22:00 116 25 106/56 (73) 100 01/11/20 21:45 119 26 98/50 (66) 100 01/11/20 21:30 121 27 105/47 (66) 100 01/11/20 21:15 116 27 103/60 (74) 100 01/11/20 21:04 104/64 01/11/20 21:00 115 28 93/52 (66) 100 01/11/20 20:45 116 29 84/54 (64) 100 01/11/20 20:44 116 29 100 01/11/20 20:30 113 27 86/53 (64) 100 01/11/20 20:15 114 28 83/50 (61) 100 01/11/20 20:00 Mechanical Ventilator 01/11/20 20:00 97.5 115 39 89/73 (78) 89 01/11/20 20:00 60 01/11/20 19:45 118 27 104/64 (77) 100 01/11/20 19:35 117 01/11/20 19:30 113 24 100/56 (71) 100 01/11/20 19:15 115 28 104/58 (73) 100 01/11/20 19:00 116 27 107/64 (78) 100 01/11/20 18:45 112 23 111/59 (76) 100 01/11/20 18:41 114 27 100 01/11/20 18:40 114 27 100 Mechanical Ventilator 60 01/11/20 18:30 112 27 112/63 (79) 100 01/11/20 18:15 111 27 108/61 (77) 100 01/11/20 18:00 108 26 107/59 (75) 100 01/11/20 17:45 108 23 100/53 (69) 100 01/11/20 17:35 106 25 100 01/11/20 17:30 108 24 111/59 (76) 100 01/11/20 17:15 110 26 101/54 (70) 100 01/11/20 17:00 109 24 102/58 (73) 100 01/11/20 16:45 108 28 101/76 (84) 100 01/11/20 16:30 106 26 109/78 (88) 100 01/11/20 16:15 105 25 121/72 (88) 100 01/11/20 16:00 97.9 105 25 122/68 (86) 100 01/11/20 16:00 60 01/11/20 16:00 Mechanical Ventilator 01/11/20 16:00 104 01/11/20 15:45 105 25 106/64 (78) 100 01/11/20 15:30 106 23 113/61 (78) 100 01/11/20 15:15 104 25 99/54 (69) 100 01/11/20 15:00 109 25 95/49 (64) 100 01/11/20 14:45 113 24 82/54 (63) 100 01/11/20 14:30 117 29 98/44 (62) 100 01/11/20 14:26 117 20 100 Height (Feet): 6 Height (Inches): 0.00 Weight (Pounds): 150 GENERAL: Calm in bed, confused, not answering questions. CARDIOVASCULAR: No murmur. LUNGS: Poor exchange. ABDOMEN: Bowel sounds distant. EXTREMITIES: No cyanosis or edema. NEUROLOGIC: The patient moves all extremities, slightly weak. Microbiology Date/Time Source Procedure Growth Status 01/11/20 18:00 Urine,Clean Catch Urine Culture - Preliminary NO GROWTH Resulted Laboratory Tests Test 01/11/20 16:00 01/11/20 18:00 01/12/20 03:46 01/12/20 05:30 Arterial Blood pH 7.358 (7.350-7.450) Arterial Blood Partial Pressure CO2 27.4 mmHg (35.0-45.0) L Arterial Blood Partial Pressure O2 299.1 mmHg (75.0-100.0) H Arterial Blood HCO3 15.1 mmol/L (22.0-26.0) *L Arterial Blood Oxygen Saturation 98.9 % (95-100) Arterial Blood Base Excess -9.4 (-2-2) *L Asael Test Positive Urine Color Pale yellow Urine Appearance Cloudy Urine pH 5 (4.5-8.0) Urine Specific [place] 1.015 (1.005-1.035) Urine Protein 3+ (NEGATIVE) H Urine Glucose (UA) Negative (NEGATIVE) Urine Ketones Negative (NEGATIVE) Urine Blood 5+ (NEGATIVE) H Urine Nitrite Negative (NEGATIVE) Urine Bilirubin Negative (NEGATIVE) Urine Urobilinogen Normal MG/DL (0.0-1.0) Urine Leukocyte Esterase 1+ (NEGATIVE) H Urine RBC 60-80 /HPF (0 - 0) H Urine WBC 2-4 /HPF (0 - 0) Urine Squamous Epithelial Cells Occasional /LPF Urine Amorphous Sediment Many /LPF (NONE) H Urine Bacteria Moderate /HPF (NONE) H White Blood Count 2.3 K/UL (4.8-10.8) L 2.7 K/UL (4.8-10.8) L Red Blood Count 1.97 M/UL (4.70-6.10) L 1.94 M/UL (4.70-6.10) L Hemoglobin 5.8 G/DL (14.2-18.0) *L 5.8 G/DL (14.2-18.0) *L Hematocrit 17.9 % (42.0-52.0) L 17.4 % (42.0-52.0) L Mean Corpuscular Volume 91 FL (80-99) 90 FL (80-99) Mean Corpuscular Hemoglobin 29.6 PG (27.0-31.0) 29.9 PG (27.0-31.0) Mean Corpuscular Hemoglobin Concent 32.6 G/DL (32.0-36.0) 33.3 G/DL (32.0-36.0) Red Cell Distribution Width 19.0 % (11.6-14.8) H 19.3 % (11.6-14.8) H Platelet Count 58 K/UL (150-450) L 55 K/UL (150-450) L Mean Platelet Volume 7.9 FL (6.5-10.1) 8.3 FL (6.5-10.1) Neutrophils (%) (Auto) % (45.0-75.0) % (45.0-75.0) Lymphocytes (%) (Auto) % (20.0-45.0) % (20.0-45.0) Monocytes (%) (Auto) % (1.0-10.0) % (1.0-10.0) Eosinophils (%) (Auto) % (0.0-3.0) % (0.0-3.0) Basophils (%) (Auto) % (0.0-2.0) % (0.0-2.0) Differential Total Cells Counted 100 100 Neutrophils % (Manual) 49 % (45-75) 44 % (45-75) L Lymphocytes % (Manual) 24 % (20-45) 28 % (20-45) Monocytes % (Manual) 12 % (1-10) H 13 % (1-10) H Eosinophils % (Manual) 2 % (0-3) 0 % (0-3) Basophils % (Manual) 0 % (0-2) 0 % (0-2) Band Neutrophils 13 % (0-8) H 15 % (0-8) H Nucleated Red Blood Cells 7 /100 WBC 7 /100 WBC Platelet Estimate Decreased L Decreased L Platelet Morphology Normal Normal Polychromasia 1+ 1+ Hypochromasia 2+ 2+ Anisocytosis 2+ 2+ Prothrombin Time 12.4 SEC (9.30-11.50) H Prothromb Time International Ratio 1.1 (0.9-1.1) Fibrinogen 492 mg/dL (200-400) H D-Dimer 18.05 mg/L FEU (0.00-0.49) H Sodium Level 142 MMOL/L (136-145) Potassium Level 2.9 MMOL/L (3.5-5.1) L Chloride Level 105 MMOL/L (98-107) Carbon Dioxide Level 27 MMOL/L (21-32) Anion Gap 10 mmol/L (5-15) Blood Urea Nitrogen 40 mg/dL (7-18) H Creatinine 2.7 MG/DL (0.55-1.30) H Estimat Glomerular Filtration Rate 28.4 mL/min (>60) Glucose Level 117 MG/DL (74-106) H Uric Acid 8.7 MG/DL (2.6-7.2) H Calcium Level 7.5 MG/DL (8.5-10.1) L Phosphorus Level 3.9 MG/DL (2.5-4.9) Magnesium Level 1.8 MG/DL (1.8-2.4) Total Bilirubin 0.5 MG/DL (0.2-1.0) Direct Bilirubin 0.2 MG/DL (0.0-0.3) Gamma Glutamyl Transpeptidase 89 U/L (5-85) H Aspartate Amino Transf (AST/SGOT) 533 U/L (15-37) H Alanine Aminotransferase (ALT/SGPT) 63 U/L (12-78) Alkaline Phosphatase 131 U/L (46-116) H Total Protein 4.8 G/DL (6.4-8.2) L Albumin 2.2 G/DL (3.4-5.0) L Test 01/12/20 08:00 Arterial Blood pH 7.539 (7.350-7.450) Arterial Blood Partial Pressure CO2 30.3 mmHg (35.0-45.0) L Arterial Blood Partial Pressure O2 77.7 mmHg (75.0-100.0) Arterial Blood HCO3 25.3 mmol/L (22.0-26.0) Arterial Blood Oxygen Saturation 95.7 % (95-100) Arterial Blood Base Excess 2.5 (-2-2) H Asael Test Positive Current Medications Medications (Trade) Dose Ordered Sig/Jesse Route PRN Reason Start Time Stop Time Status Last Admin Dose Admin Acetaminophen (Tylenol) 650 mg Q4H PRN ORAL PRNH/TEMP 01/05/20 20:15 02/04/20 20:14 01/12/20 03:10 Albuterol/ Ipratropium (Albuterol/ Ipratropium) 3 ml Q4H PRN HHN Bronchospasm 01/10/20 18:56 01/15/20 18:55 Allopurinol (allopurinoL) 300 mg BID NG 01/09/20 18:00 02/06/20 14:14 01/12/20 08:00 Aluminum Hydroxide (Amphojel) 1,920 mg Q6HR NG 01/11/20 10:00 02/10/20 09:59 01/12/20 05:46 Benztropine Mesylate (Cogentin) 1.5 mg BID NG 01/11/20 09:00 02/05/20 08:59 01/12/20 08:01 Bisacodyl (Dulcolax) 10 mg DAILY PRN RECTAL Constipation 01/05/20 20:15 04/04/20 20:14 Chlorhexidine Gluconate (Navya-Hex 2%) 1 applic DAILY@2000 TOPIC 01/11/20 20:00 04/10/20 19:59 01/11/20 20:23 Clopidogrel Bisulfate (Plavix) 75 mg DAILY NG 01/11/20 09:00 02/05/20 08:59 01/11/20 09:25 Dextrose (Dextrose 50%) 25 ml Q30M PRN IV Hypoglycemia 01/05/20 20:15 04/04/20 20:14 Dextrose (Dextrose 50%) 50 ml Q30M PRN IV Hypoglycemia 01/05/20 20:15 04/04/20 20:14 Dextrose/Sodium Chloride 1,000 ml @ 75 mls/hr [id number] IV 01/12/20 12:00 02/11/20 11:59 Docusate Sodium (Colace) 200 mg DAILY ORAL 01/06/20 09:00 02/05/20 08:59 01/11/20 09:24 Gadobutrol (Gadavist) 7.5 mmol NOW PRN IV Radiology Procedure 01/11/20 09:15 01/15/20 09:14 Heparin Sodium (Porcine) (Heparin 5000 units/ml) 5,000 units Q12HR SUBQ 01/07/20 21:00 02/20/20 08:59 01/11/20 20:24 Insulin Aspart (NovoLOG) BEFORE MEALS AND HS SUBQ 01/05/20 21:00 04/04/20 20:59 01/11/20 05:54 Linaclotide (Linzess) 290 mcg BEFORE BREAKFAST ORAL 01/10/20 06:30 04/09/20 06:29 01/11/20 05:33 Morphine Sulfate (Morphine Sulfate) 2 mg Q4H PRN IVP For Pain 01/06/20 00:45 01/13/20 00:44 Norepinephrine Bitartrate 250 ml @ 0 mls/hr Q24H IV 01/11/20 12:00 01/14/20 11:29 01/12/20 10:23 Ondansetron HCl (Zofran) 4 mg Q6H PRN IVP Nausea & Vomiting 01/10/20 06:30 02/09/20 06:29 Oxymetazoline HCl (Afrin Nasal [place]) 2 spray Q12HR PRN NASAL dry nasal passage 01/11/20 08:00 04/10/20 07:59 Pantoprazole (Protonix) 40 mg EVERY 12 HOURS IVP 01/05/20 21:00 02/04/20 20:59 01/12/20 08:00 Piperacillin Sod/ Tazobactam Sod 2.25 gm/Dextrose 55 ml @ 110 mls/hr Q8H IV 01/11/20 18:00 01/18/20 17:59 01/12/20 02:08 Polyethylene Glycol (Miralax) 17 gm BEDTIME NG 01/11/20 21:00 02/08/20 20:59 Sennosides (Senokot) 8.6 mg QHS NG 01/11/20 21:00 02/04/20 20:59 Clara Guerin M.D. Jan 12, 2020 14:46
[2020-01-12] MEDS ORDERED: Vancomycin 1 GM in NS 275 ML IVPB ONE (16:00)
[2020-01-12] MEDS: D5 1/2NS 1,000 ML IV SCH (17:07)
--- NOTE | 2020-01-12 18:46 | General Progress Note ---
Subjective Allergies: Coded Allergies: No Known Allergies (Unverified , 03/18/19) Subjective above noted d/w RN H&H lower --> getting transfused no melena, and OB (_) on 01/09 but dark NGT aspirate reported today patient non-communicative Objective Last 24 Hour Vital Signs Date Time Temp Pulse Resp B/P (MAP) Pulse Ox O2 Delivery O2 Flow Rate FiO2 01/12/20 18:30 114 23 107/67 (80) 96 01/12/20 18:15 117 20 107/95 (99) 99 01/12/20 18:00 116 23 111/60 (77) 99 01/12/20 17:45 114 22 104/61 (75) 99 01/12/20 17:30 108 19 106/60 (75) 99 01/12/20 17:11 98 19 30 01/12/20 17:00 99 16 114/59 (77) 100 01/12/20 16:30 99.2 99 21 99/56 (70) 100 01/12/20 16:00 97 20 106/57 (73) 100 01/12/20 15:30 107 20 98/67 (77) 100 01/12/20 15:28 102 01/12/20 15:11 102 21 30 01/12/20 15:00 108 19 94/38 (56) 99 01/12/20 14:30 97.9 100 18 96/56 (69) 100 01/12/20 14:00 105 18 117/64 (81) 100 01/12/20 13:30 99 19 109/67 (81) 100 01/12/20 13:18 103 34 30 01/12/20 13:00 101 19 98/52 (67) 100 01/12/20 12:30 103 20 98/52 (67) 100 01/12/20 12:00 30 01/12/20 12:00 101 20 106/51 (69) 100 01/12/20 12:00 Mechanical Ventilator 01/12/20 11:30 97.3 104 19 99/52 (68) 100 01/12/20 11:22 104 01/12/20 11:21 110 26 30 01/12/20 11:00 97.9 105 19 98/51 (67) 100 01/12/20 10:23 103/52 01/12/20 10:00 105 21 103/52 (69) 100 01/12/20 09:30 105 22 95/55 (68) 100 01/12/20 09:00 114 23 103/54 (70) 100 01/12/20 08:56 108 26 100 Mechanical Ventilator 30 01/12/20 08:55 108 22 30 01/12/20 08:30 110 23 110/58 (75) 100 01/12/20 08:00 98.0 111 22 114/57 (76) 99 01/12/20 08:00 Mechanical Ventilator 01/12/20 08:00 30 01/12/20 07:42 173 01/12/20 07:11 109 22 30 01/12/20 07:00 102 21 95/54 (68) 100 01/12/20 06:45 104 21 88/50 (63) 100 01/12/20 06:30 108 22 92/47 (62) 100 01/12/20 06:00 108 22 99/51 (67) 100 01/12/20 05:30 111 22 108/54 (72) 99 01/12/20 05:01 115 22 30 01/12/20 05:00 111 23 95/47 (63) 100 01/12/20 04:30 112 23 92/49 (63) 100 01/12/20 04:00 100.0 115 22 95/46 (62) 97 01/12/20 04:00 Mechanical Ventilator 01/12/20 04:00 30 01/12/20 04:00 109 01/12/20 03:40 100.0 01/12/20 03:30 123 25 96/52 (67) 98 01/12/20 03:00 100.5 121 24 106/57 (73) 97 01/12/20 02:40 117 23 100 01/12/20 02:30 120 23 110/55 (73) 100 01/12/20 02:00 118 20 108/61 (77) 100 01/12/20 01:30 114 22 92/48 (63) 100 01/12/20 01:00 126 25 100 01/12/20 01:00 124 23 133/67 (89) 100 01/12/20 00:30 122 23 108/66 (80) 100 01/12/20 00:00 99.5 117 22 100/64 (76) 100 01/12/20 00:00 Mechanical Ventilator 01/12/20 00:00 50 01/12/20 00:00 115 01/11/20 23:30 117 22 97/64 (75) 100 01/11/20 23:00 118 24 97/60 (72) 100 01/11/20 22:45 121 25 124/66 (85) 100 01/11/20 22:39 116 23 100 01/11/20 22:30 116 25 100/59 (73) 100 01/11/20 22:15 114 23 92/60 (71) 100 01/11/20 22:00 116 25 106/56 (73) 100 01/11/20 21:45 119 26 98/50 (66) 100 01/11/20 21:30 121 27 105/47 (66) 100 01/11/20 21:15 116 27 103/60 (74) 100 01/11/20 21:04 104/64 01/11/20 21:00 115 28 93/52 (66) 100 01/11/20 20:45 116 29 84/54 (64) 100 01/11/20 20:44 116 29 100 01/11/20 20:30 113 27 86/53 (64) 100 01/11/20 20:15 114 28 83/50 (61) 100 01/11/20 20:00 Mechanical Ventilator 01/11/20 20:00 97.5 115 39 89/73 (78) 89 01/11/20 20:00 60 01/11/20 19:45 118 27 104/64 (77) 100 01/11/20 19:35 117 01/11/20 19:30 113 24 100/56 (71) 100 01/11/20 19:15 115 28 104/58 (73) 100 01/11/20 19:00 116 27 107/64 (78) 100 01/11/20 18:45 112 23 111/59 (76) 100 Intake and Output 01/11/20 01/12/20 19:00 07:00 Intake Total 1761.875 ml 1135.0 ml Output Total 230 ml 240 ml Balance 1531.875 ml 895.0 ml IV Total 1761.875 ml 1135.0 ml Output Urine Total 230 ml 240 ml # Bowel Movements 54 3 Laboratory Tests 01/12/20 03:46: White Blood Count 2.3L, Red Blood Count 1.97L, Hemoglobin 5.8*L, Hematocrit 17.9L, Mean Corpuscular Volume 91, Mean Corpuscular Hemoglobin 29.6, Mean Corpuscular Hemoglobin Concent 32.6, Red Cell Distribution Width 19.0H, Platelet Count 58L, Mean Platelet Volume 7.9, Neutrophils (%) (Auto) , Lymphocytes (%) (Auto) , Monocytes (%) (Auto) , Eosinophils (%) (Auto) , Basophils (%) (Auto) , Differential Total Cells Counted 100, Neutrophils % (Manual) 49, Lymphocytes % (Manual) 24, Monocytes % (Manual) 12H, Eosinophils % (Manual) 2, Basophils % (Manual) 0, Band Neutrophils 13H, Nucleated Red Blood Cells 7, Platelet Estimate DecreasedL, Platelet Morphology Normal, Polychromasia 1+, Hypochromasia 2+, Anisocytosis 2+, Prothrombin Time 12.4H, Prothromb Time International Ratio 1.1, Fibrinogen 492H, D-Dimer 18.05H, Sodium Level 142, Potassium Level 2.9L, Chloride Level 105, Carbon Dioxide Level 27, Anion Gap 10, Blood Urea Nitrogen 40H, Creatinine 2.7H, Estimat Glomerular Filtration Rate 28.4, Glucose Level 117H, Uric Acid 8.7H, Calcium Level 7.5L, Phosphorus Level 3.9, Magnesium Level 1.8, Total Bilirubin 0.5, Direct Bilirubin 0.2, Gamma Glutamyl Transpeptidase 89H, Aspartate Amino Transf (AST/SGOT) 533H, Alanine Aminotransferase (ALT/SGPT) 63, Alkaline Phosphatase 131H, Total Protein 4.8L, Albumin 2.2L 01/12/20 05:30: White Blood Count 2.7L, Red Blood Count 1.94L, Hemoglobin 5.8*L, Hematocrit 17.4L, Mean Corpuscular Volume 90, Mean Corpuscular Hemoglobin 29.9, Mean Corpuscular Hemoglobin Concent 33.3, Red Cell Distribution Width 19.3H, Platelet Count 55L, Mean Platelet Volume 8.3, Neutrophils (%) (Auto) , Lymphocytes (%) (Auto) , Monocytes (%) (Auto) , Eosinophils (%) (Auto) , Basophils (%) (Auto) , Differential Total Cells Counted 100, Neutrophils % (Manual) 44L, Lymphocytes % (Manual) 28, Monocytes % (Manual) 13H, Eosinophils % (Manual) 0, Basophils % (Manual) 0, Band Neutrophils 15H, Nucleated Red Blood Cells 7, Platelet Estimate DecreasedL, Platelet Morphology Normal, Polychromasia 1+, Hypochromasia 2+, Anisocytosis 2+ 01/12/20 08:00: Arterial Blood pH 7.539H, Arterial Blood Partial Pressure CO2 30.3L, Arterial Blood Partial Pressure O2 77.7, Arterial Blood HCO3 25.3, Arterial Blood Oxygen Saturation 95.7, Arterial Blood Base Excess 2.5H, Asael Test Positive Height (Feet): 6 Height (Inches): 0.00 Weight (Pounds): 150 Objective Intubated, restrained NCAT supple CTA RR abd soft NT ND no edema unresponsive Assessment/Plan Status: deteriorating Assessment/Plan: Assessment - sudden drop in H&H - no melena, but dark NGT aspirate - respiratory failure - azotemia - guarded Recommendations - IVF - transfuse - PPI - follow CBC - will consider EGD Tuesday, once stablized Ameya Zaragoza MD Jan 12, 2020 18:46
[2020-01-12] MEDS: Dyna-Hex 2% Top Sol 2oz TOPIC SCH (19:55)
[2020-01-12] MEDS: Miralax 17gm pkt NG SCH (21:00)
[2020-01-12] MEDS: Sennosides 8.6mg tab NG SCH (21:00)
[2020-01-13] VITALS (56 sets, daily range): BP systolic 76–149; BP diastolic 44–75
[2020-01-13] MEDS: D5 1/2NS 1,000 ML IV SCH ×4 (01:20→17:46)
[2020-01-13] MEDS: Piperacillin/Tazobactam 2.25 GM in D5W 55 ML IV SCH ×3 (02:03→17:15)
[2020-01-13 05:09] LABS: HEMATOCRIT 25.4 % (42.0-52.0); HEMOGLOBIN 8.3 G/DL (14.2-18.0); MEAN CORPUSCULAR VOLUME 86 FL (80-99); PLATELET COUNT 51 K/UL (150-450); RED BLOOD COUNT 2.94 M/UL (4.70-6.10); RED CELL DISTRIBUTION WIDTH 20.5 % (11.6-14.8); WHITE BLOOD COUNT 4.8 K/UL (4.8-10.8)
[2020-01-13 05:53] LABS: PHOSPHORUS 3.2 MG/DL (2.5-4.9)
[2020-01-13 05:55] LABS: ALBUMIN/GLOBULIN RATIO 0.7 (1.0-2.7); BILIRUBIN,TOTAL 0.7 MG/DL (0.2-1.0); CALCIUM 6.4 MG/DL (8.5-10.1); CREATININE 2.8 MG/DL (0.55-1.30); POTASSIUM 2.9 MMOL/L (3.5-5.1)
[2020-01-13] MEDS: Aluminum Hydroxide Gel Susp 15ml NG SCH ×4 (06:00→22:09)
[2020-01-13] MEDS: Norepinephrine 4mg/NS Premix 250 ML IV SCH ×2 (06:21→21:17)
[2020-01-13] MEDS: NovoLOG Insulin Flexpen SUBQ SCH (06:30)
--- NOTE | 2020-01-13 07:19 | Hematology/Onc Progress Note ---
Assessment/Plan Assessment/Plan Assessment/Recs # Anemia of chronic disease due to underlying chronic medical issues, multifactorial v Gi bleed --> Anemia workup has been ordered, rule out gi bleed --> No evidence of hemolysis is noted, peripheral smear has been reviewed. --> Hgb goal >7. Transfuse prn. --> Epogen or iron at this time is not particularly indicated --> Medications have been reviewed --> low threshold for gi evaluation in case has occult + --> hgb 10-->9.7-->9.2->10-->8.6-->7.7-->5-->8.3 --> 01/12 flow cytometry ordered bc of nucleated cells on smear # Thrombocytopenia ongoing, worsened since adm --> plt 150-->98-->82-->51 --> hep and hiv panel--NEG --> us abd-->shows 3 small lesions, requires further eval # Multiple lesions noted in pancreas --> MRI abd ordered # Protein caloric malnutrition --> daily calorie counts --> daily weights --> mirtazapine started # Acute renal failure --> continue on ivfs --> as per renal # Hypokalemia --> replete with K # Severe dehydration --> ivfs ongoing # Hypernatremia indicative of severe water deficit # Severe hyperuricemia, partly due to dehydration and renal failure # Acute metabolic and toxic encephalopathy # Mild, malnutrition # Psych issues per psych # Lactic acid, possible sepsis # Dvt ppx heparin sq->Scds The timing of this note does not necessarily reflect the time of the patient was seen. Greatly appreciate consultation. Subjective Constitutional: Denies: no symptoms, chills, fever, malaise, weakness, other HEENT: Denies: no symptoms, eye pain, blurred vision, tearing, double vision, ear pain, ear discharge, nose pain, nose congestion, throat pain, throat swelling, mouth pain, mouth swelling, other Cardiovascular: Denies: no symptoms, chest pain, edema, irregular heart rate, lightheadedness, palpitations, syncope, other Respiratory: Denies: no symptoms, cough, shortness of breath, SOB with excerti on, SOB at rest, sputum, wheezing, other Genitourinary: Denies: no symptoms, burning, discharge, frequency, flank pain, hematuria, incontinence, pain, urgency, other Neurologic/Psychiatric: Denies: no symptoms, anxiety, depressed, emotional problems, headache, numbness, paresthesia, pre-existing deficit, seizure, tingling, tremors, weakness, other Allergies: Coded Allergies: No Known Allergies (Unverified , 03/18/19) Subjective 01/07 meds noted, no bleeding, hgb 10, no hemolysis, hgb 10.1 01/08 labs reviewed, vi rn, no major events, no bleeding, hgb lower 01/09 labs noted, no bleeding, vi rn, no major changes, plt lower 01/10 did have epistaxis overnight, no bleeding, night sweats, epistaxis better 01/12 icu, remains on vent, levo, no bleeding, meds noted Objective Objective Current Medications Medications (Trade) Dose Ordered Sig/Jesse Route PRN Reason Start Time Stop Time Status Last Admin Dose Admin Acetaminophen (Tylenol) 650 mg Q4H PRN ORAL PRNH/TEMP 01/05/20 20:15 02/04/20 20:14 01/12/20 03:10 Albuterol/ Ipratropium (Albuterol/ Ipratropium) 3 ml Q4H PRN HHN Bronchospasm 01/10/20 18:56 01/15/20 18:55 Allopurinol (allopurinoL) 300 mg BID NG 01/09/20 18:00 02/06/20 14:14 01/12/20 08:00 Aluminum Hydroxide (Amphojel) 1,920 mg Q6HR NG 01/11/20 10:00 02/10/20 09:59 01/12/20 05:46 Benztropine Mesylate (Cogentin) 1.5 mg BID NG 01/11/20 09:00 02/05/20 08:59 01/12/20 08:01 Bisacodyl (Dulcolax) 10 mg DAILY PRN RECTAL Constipation 01/05/20 20:15 04/04/20 20:14 Chlorhexidine Gluconate (Navya-Hex 2%) 1 applic DAILY@1999 TOPIC 01/11/20 20:00 04/10/20 19:59 01/12/20 19:55 Clopidogrel Bisulfate (Plavix) 75 mg DAILY NG 01/11/20 09:00 02/05/20 08:59 01/11/20 09:25 Dextrose (Dextrose 50%) 25 ml Q30M PRN IV Hypoglycemia 01/05/20 20:15 04/04/20 20:14 Dextrose (Dextrose 50%) 50 ml Q30M PRN IV Hypoglycemia 01/05/20 20:15 04/04/20 20:14 Dextrose/Sodium Chloride 1,000 ml @ 75 mls/hr [id number] IV 01/12/20 12:00 02/11/20 11:59 01/13/20 06:56 Docusate Sodium (Colace) 200 mg DAILY ORAL 01/06/20 09:00 02/05/20 08:59 01/11/20 09:24 Gadobutrol (Gadavist) 7.5 mmol NOW PRN IV Radiology Procedure 01/11/20 09:15 01/15/20 09:14 Heparin Sodium (Porcine) (Heparin 5000 units/ml) 5,000 units Q12HR SUBQ 01/07/20 21:00 02/20/20 08:59 01/11/20 20:24 Insulin Aspart (NovoLOG) BEFORE MEALS AND HS SUBQ 01/05/20 21:00 04/04/20 20:59 01/11/20 05:54 Linaclotide (Linzess) 290 mcg BEFORE BREAKFAST ORAL 01/10/20 06:30 04/09/20 06:29 01/11/20 05:33 Magnesium Sulfate 100 ml @ 100 mls/hr Q1H IVPB 01/13/20 07:00 01/13/20 08:59 Norepinephrine Bitartrate 250 ml @ 0 mls/hr Q24H IV 01/11/20 12:00 01/14/20 11:29 01/13/20 06:21 Ondansetron HCl (Zofran) 4 mg Q6H PRN IVP Nausea & Vomiting 01/10/20 06:30 02/09/20 06:29 Oxymetazoline HCl (Afrin Nasal [place]) 2 spray Q12HR PRN NASAL dry nasal passage 01/11/20 08:00 04/10/20 07:59 Pantoprazole (Protonix) 40 mg EVERY 12 HOURS IVP 01/05/20 21:00 02/04/20 20:59 01/12/20 20:28 Piperacillin Sod/ Tazobactam Sod 2.25 gm/Dextrose 55 ml @ 110 mls/hr Q8H IV 01/11/20 18:00 01/18/20 17:59 01/13/20 02:03 Polyethylene Glycol (Miralax) 17 gm BEDTIME NG 01/11/20 21:00 02/08/20 20:59 Potassium Chloride 100 ml @ 50 mls/hr ONCE ONCE IVPB 01/13/20 07:00 01/13/20 08:59 Sennosides (Senokot) 8.6 mg QHS NG 01/11/20 21:00 02/04/20 20:59 Vancomycin HCl (Vanco pharmacy to dose) 1 ea DAILY PRN MISC Per rx protocol 01/12/20 14:45 02/11/20 14:44 Last 24 Hour Vital Signs Date Time Temp Pulse Resp B/P (MAP) Pulse Ox O2 Delivery O2 Flow Rate FiO2 01/13/20 06:21 116/66 01/13/20 06:00 88 16 116/66 (83) 99 01/13/20 05:30 90 14 99/55 (70) 100 01/13/20 05:15 91 19 30 01/13/20 05:00 99 17 126/56 (79) 98 01/13/20 04:30 90 16 117/54 (75) 100 01/13/20 04:00 Mechanical Ventilator 01/13/20 04:00 98.4 85 16 103/52 (69) 99 01/13/20 04:00 30 01/13/20 04:00 89 01/13/20 03:45 90 18 94/52 (66) 99 01/13/20 03:30 90 19 30 01/13/20 03:30 91 18 102/52 (69) 99 01/13/20 03:00 89 17 93/47 (62) 100 01/13/20 02:30 93 16 118/72 (87) 99 01/13/20 02:00 89 21 102/56 (71) 100 01/13/20 01:45 92 19 92/51 (65) 99 01/13/20 01:30 93 17 92/48 (63) 99 01/13/20 01:21 115 24 30 01/13/20 01:15 97 17 126/61 (82) 99 01/13/20 01:00 102 18 76/47 (57) 98 01/13/20 00:30 110 21 90/58 (69) 96 01/13/20 00:00 Mechanical Ventilator 01/13/20 00:00 110 01/13/20 00:00 98.5 121 28 116/75 (89) 96 01/13/20 00:00 30 01/12/20 23:30 111 23 126/67 (86) 96 01/12/20 23:15 112 23 30 01/12/20 23:00 98 16 119/60 (79) 99 01/12/20 22:45 94 18 92/50 (64) 100 01/12/20 22:30 96 17 116/56 (76) 100 01/12/20 22:15 94 19 106/62 (77) 100 01/12/20 22:00 97 17 94/52 (66) 100 01/12/20 21:48 87 22 30 01/12/20 21:45 95 18 91/51 (64) 100 01/12/20 21:35 94 17 122/65 (84) 100 01/12/20 21:30 96 19 79/45 (56) 100 01/12/20 21:00 94 20 101/57 (72) 100 01/12/20 20:00 98.8 99 19 95/51 (66) 100 01/12/20 20:00 30 01/12/20 20:00 Mechanical Ventilator 01/12/20 20:00 100 01/12/20 19:54 106 21 100 Mechanical Ventilator 30 01/12/20 19:52 101 20 30 01/12/20 19:00 108 21 89/54 (66) 98 01/12/20 18:30 114 23 107/67 (80) 96 01/12/20 18:15 117 20 107/95 (99) 99 01/12/20 18:00 116 23 111/60 (77) 99 01/12/20 17:45 114 22 104/61 (75) 99 01/12/20 17:30 108 19 106/60 (75) 99 01/12/20 17:11 98 19 30 01/12/20 17:00 99 16 114/59 (77) 100 01/12/20 16:30 99.2 99 21 99/56 (70) 100 01/12/20 16:00 97 20 106/57 (73) 100 01/12/20 16:00 30 01/12/20 16:00 Mechanical Ventilator 01/12/20 15:30 107 20 98/67 (77) 100 01/12/20 15:28 102 01/12/20 15:11 102 21 30 01/12/20 15:00 108 19 94/38 (56) 99 01/12/20 14:30 97.9 100 18 96/56 (69) 100 01/12/20 14:00 105 18 117/64 (81) 100 01/12/20 13:30 99 19 109/67 (81) 100 01/12/20 13:18 103 34 30 01/12/20 13:00 101 19 98/52 (67) 100 01/12/20 12:30 103 20 98/52 (67) 100 01/12/20 12:00 30 01/12/20 12:00 101 20 106/51 (69) 100 01/12/20 12:00 Mechanical Ventilator 01/12/20 11:30 97.3 104 19 99/52 (68) 100 01/12/20 11:22 104 01/12/20 11:21 110 26 30 01/12/20 11:00 97.9 105 19 98/51 (67) 100 01/12/20 10:23 103/52 01/12/20 10:00 105 21 103/52 (69) 100 01/12/20 09:30 105 22 95/55 (68) 100 01/12/20 09:00 114 23 103/54 (70) 100 01/12/20 08:56 108 26 100 Mechanical Ventilator 30 01/12/20 08:55 108 22 30 01/12/20 08:30 110 23 110/58 (75) 100 01/12/20 08:00 98.0 111 22 114/57 (76) 99 01/12/20 08:00 Mechanical Ventilator 01/12/20 08:00 30 01/12/20 07:42 173 01/12/20 07:11 109 22 30 01/12/20 07:00 102 21 95/54 (68) 100 01/12/20 06:45 104 21 88/50 (63) 100 01/12/20 06:30 108 22 92/47 (62) 100 01/12/20 06:00 108 22 99/51 (67) 100 01/12/20 05:30 111 22 108/54 (72) 99 01/12/20 05:01 115 22 30 01/12/20 05:00 111 23 95/47 (63) 100 01/12/20 04:30 112 23 92/49 (63) 100 01/12/20 04:00 100.0 115 22 95/46 (62) 97 01/12/20 04:00 Mechanical Ventilator 01/12/20 04:00 30 01/12/20 04:00 109 01/12/20 03:40 100.0 01/12/20 03:30 123 25 96/52 (67) 98 01/12/20 03:00 100.5 121 24 106/57 (73) 97 01/12/20 02:40 117 23 100 01/12/20 02:30 120 23 110/55 (73) 100 01/12/20 02:00 118 20 108/61 (77) 100 01/12/20 01:30 114 22 92/48 (63) 100 01/12/20 01:00 126 25 100 01/12/20 01:00 124 23 133/67 (89) 100 01/12/20 00:30 122 23 108/66 (80) 100 01/12/20 00:00 99.5 117 22 100/64 (76) 100 01/12/20 00:00 Mechanical Ventilator 01/12/20 00:00 50 01/12/20 00:00 115 01/11/20 23:30 117 22 97/64 (75) 100 01/11/20 23:00 118 24 97/60 (72) 100 01/11/20 22:45 121 25 124/66 (85) 100 01/11/20 22:39 116 23 100 01/11/20 22:30 116 25 100/59 (73) 100 01/11/20 22:15 114 23 92/60 (71) 100 01/11/20 22:00 116 25 106/56 (73) 100 01/11/20 21:45 119 26 98/50 (66) 100 01/11/20 21:30 121 27 105/47 (66) 100 01/11/20 21:15 116 27 103/60 (74) 100 01/11/20 21:04 104/64 01/11/20 21:00 115 28 93/52 (66) 100 01/11/20 20:45 116 29 84/54 (64) 100 01/11/20 20:44 116 29 100 01/11/20 20:30 113 27 86/53 (64) 100 01/11/20 20:15 114 28 83/50 (61) 100 01/11/20 20:00 Mechanical Ventilator 01/11/20 20:00 97.5 115 39 89/73 (78) 89 01/11/20 20:00 60 01/11/20 19:45 118 27 104/64 (77) 100 01/11/20 19:35 117 01/11/20 19:30 113 24 100/56 (71) 100 01/11/20 19:15 115 28 104/58 (73) 100 01/11/20 19:00 116 27 107/64 (78) 100 01/11/20 18:45 112 23 111/59 (76) 100 01/11/20 18:41 114 27 100 01/11/20 18:40 114 27 100 Mechanical Ventilator 60 01/11/20 18:30 112 27 112/63 (79) 100 01/11/20 18:15 111 27 108/61 (77) 100 01/11/20 18:00 108 26 107/59 (75) 100 01/11/20 17:45 108 23 100/53 (69) 100 01/11/20 17:35 106 25 100 01/11/20 17:30 108 24 111/59 (76) 100 01/11/20 17:15 110 26 101/54 (70) 100 01/11/20 17:00 109 24 102/58 (73) 100 01/11/20 16:45 108 28 101/76 (84) 100 01/11/20 16:30 106 26 109/78 (88) 100 01/11/20 16:15 105 25 121/72 (88) 100 01/11/20 16:00 97.9 105 25 122/68 (86) 100 01/11/20 16:00 60 01/11/20 16:00 Mechanical Ventilator 01/11/20 16:00 104 01/11/20 15:45 105 25 106/64 (78) 100 01/11/20 15:30 106 23 113/61 (78) 100 01/11/20 15:15 104 25 99/54 (69) 100 01/11/20 15:00 109 25 95/49 (64) 100 01/11/20 14:45 113 24 82/54 (63) 100 01/11/20 14:30 117 29 98/44 (62) 100 01/11/20 14:26 117 20 100 01/11/20 14:15 121 22 124/77 (93) 100 01/11/20 14:00 108 22 140/60 (86) 100 01/11/20 14:00 100 01/11/20 13:45 70/47 01/11/20 13:00 111 28 90/47 (61) 100 01/11/20 12:00 97.2 108 27 92/59 (70) 99 01/11/20 12:00 110 01/11/20 12:00 Venturi Mask 01/11/20 12:00 92/59 01/11/20 11:00 107 01/11/20 08:00 96.8 108 23 74/58 (63) 92 01/11/20 07:56 104 01/11/20 07:40 101 20 90 Venturi Mask 40 Intake and Output 01/12/20 01/13/20 19:00 07:00 Intake Total 796.25 ml 946.25 ml Output Total 255 ml 410 ml Balance 541.25 ml 536.25 ml IV Total 796.25 ml 946.25 ml Output Urine Total 255 ml 380 ml Stool Total 30 ml # Bowel Movements 3 Labs Test 01/10/20 08:30 01/10/20 12:12 01/10/20 17:10 01/10/20 18:29 White Blood Count 4.8 K/UL (4.8-10.8) Red Blood Count 3.17 M/UL (4.70-6.10) Hemoglobin 9.4 G/DL (14.2-18.0) Hematocrit 29.1 % (42.0-52.0) Mean Corpuscular Volume 92 FL (80-99) Mean Corpuscular Hemoglobin 29.6 PG (27.0-31.0) Mean Corpuscular Hemoglobin Concent 32.3 G/DL (32.0-36.0) Red Cell Distribution Width 19.6 % (11.6-14.8) Platelet Count 96 K/UL (150-450) Mean Platelet Volume 9.1 FL (6.5-10.1) Neutrophils (%) (Auto) % (45.0-75.0) Lymphocytes (%) (Auto) % (20.0-45.0) Monocytes (%) (Auto) % (1.0-10.0) Eosinophils (%) (Auto) % (0.0-3.0) Basophils (%) (Auto) % (0.0-2.0) Differential Total Cells Counted 100 Neutrophils % (Manual) 64 % (45-75) Lymphocytes % (Manual) 13 % (20-45) Monocytes % (Manual) 6 % (1-10) Eosinophils % (Manual) 1 % (0-3) Basophils % (Manual) 0 % (0-2) Band Neutrophils 16 % (0-8) Nucleated Red Blood Cells 1 /100 WBC Platelet Estimate Decreased Platelet Morphology Normal Polychromasia 1+ Anisocytosis 2+ Prothrombin Time 14.0 SEC (9.30-11.50) Prothromb Time International Ratio 1.3 (0.9-1.1) POC Whole Blood Glucose 136 MG/DL (74-106) Stool Occult Blood Negative (NEGATIVE) Test 01/10/20 21:11 01/11/20 03:05 01/11/20 05:37 01/11/20 07:50 POC Whole Blood Glucose 138 MG/DL (74-106) 175 MG/DL (74-106) White Blood Count 4.1 K/UL (4.8-10.8) Red Blood Count 2.52 M/UL (4.70-6.10) Hemoglobin 7.7 G/DL (14.2-18.0) Hematocrit 23.6 % (42.0-52.0) Mean Corpuscular Volume 94 FL (80-99) Mean Corpuscular Hemoglobin 30.5 PG (27.0-31.0) Mean Corpuscular Hemoglobin Concent 32.5 G/DL (32.0-36.0) Red Cell Distribution Width 19.7 % (11.6-14.8) Platelet Count 82 K/UL (150-450) Mean Platelet Volume 8.2 FL (6.5-10.1) Neutrophils (%) (Auto) % (45.0-75.0) Lymphocytes (%) (Auto) % (20.0-45.0) Monocytes (%) (Auto) % (1.0-10.0) Eosinophils (%) (Auto) % (0.0-3.0) Basophils (%) (Auto) % (0.0-2.0) Differential Total Cells Counted 100 Neutrophils % (Manual) 56 % (45-75) Lymphocytes % (Manual) 19 % (20-45) Monocytes % (Manual) 9 % (1-10) Eosinophils % (Manual) 1 % (0-3) Basophils % (Manual) 0 % (0-2) Band Neutrophils 15 % (0-8) Nucleated Red Blood Cells 4 /100 WBC Platelet Estimate Decreased Platelet Morphology Normal Polychromasia 1+ Hypochromasia 1+ Anisocytosis 2+ Sodium Level 133 MMOL/L (136-145) Potassium Level 4.5 MMOL/L (3.5-5.1) Chloride Level 101 MMOL/L (98-107) Carbon Dioxide Level 16 MMOL/L (21-32) Anion Gap 16 mmol/L (5-15) Blood Urea Nitrogen 72 mg/dL (7-18) Creatinine 4.2 MG/DL (0.55-1.30) Estimat Glomerular Filtration Rate 17.1 mL/min (>60) Glucose Level 173 MG/DL (74-106) Uric Acid 18.1 MG/DL (2.6-7.2) Calcium Level 6.4 MG/DL (8.5-10.1) Phosphorus Level 9.6 MG/DL (2.5-4.9) Magnesium Level 1.9 MG/DL (1.8-2.4) Total Bilirubin 0.4 MG/DL (0.2-1.0) Gamma Glutamyl Transpeptidase 85 U/L (5-85) Aspartate Amino Transf (AST/SGOT) 1960 U/L (15-37) Alanine Aminotransferase (ALT/SGPT) 139 U/L (12-78) Alkaline Phosphatase 175 U/L (46-116) Total Protein 4.9 G/DL (6.4-8.2) Albumin 2.0 G/DL (3.4-5.0) Globulin 2.9 g/dL Albumin/Globulin Ratio 0.7 (1.0-2.7) Arterial Blood pH 7.172 (7.350-7.450) Arterial Blood Partial Pressure CO2 41.6 mmHg (35.0-45.0) Arterial Blood Partial Pressure O2 107.6 mmHg (75.0-100.0) Arterial Blood HCO3 14.9 mmol/L (22.0-26.0) Arterial Blood Oxygen Saturation 95.7 % (95-100) Arterial Blood Base Excess -12.5 (-2-2) Asael Test Positive Test 01/11/20 11:35 01/11/20 16:00 01/11/20 18:00 01/12/20 03:46 Hepatitis A IgM Antibody Negative (Negative) Hepatitis B Surface Antigen Negative (Negative) Hepatitis B Core IgM Antibody Negative (Negative) Hepatitis C Antibody <0.1 s/co ratio HIV (1&2) Antibody Rapid Negative (NEGATIVE) Arterial Blood pH 7.358 (7.350-7.450) Arterial Blood Partial Pressure CO2 27.4 mmHg (35.0-45.0) Arterial Blood Partial Pressure O2 299.1 mmHg (75.0-100.0) Arterial Blood HCO3 15.1 mmol/L (22.0-26.0) Arterial Blood Oxygen Saturation 98.9 % (95-100) Arterial Blood Base Excess -9.4 (-2-2) Asael Test Positive Urine Color Pale yellow Urine Appearance Cloudy Urine pH 5 (4.5-8.0) Urine Specific [employer] 1.015 (1.005-1.035) Urine Protein 3+ (NEGATIVE) Urine Glucose (UA) Negative (NEGATIVE) Urine Ketones Negative (NEGATIVE) Urine Blood 5+ (NEGATIVE) Urine Nitrite Negative (NEGATIVE) Urine Bilirubin Negative (NEGATIVE) Urine Urobilinogen Normal MG/DL (0.0-1.0) Urine Leukocyte Esterase 1+ (NEGATIVE) Urine RBC 60-80 /HPF (0 - 0) Urine WBC 2-4 /HPF (0 - 0) Urine Squamous Epithelial Cells Occasional /LPF Urine Amorphous Sediment Many /LPF (NONE) Urine Bacteria Moderate /HPF (NONE) White Blood Count 2.3 K/UL (4.8-10.8) Red Blood Count 1.97 M/UL (4.70-6.10) Hemoglobin 5.8 G/DL (14.2-18.0) Hematocrit 17.9 % (42.0-52.0) Mean Corpuscular Volume 91 FL (80-99) Mean Corpuscular Hemoglobin 29.6 PG (27.0-31.0) Mean Corpuscular Hemoglobin Concent 32.6 G/DL (32.0-36.0) Red Cell Distribution Width 19.0 % (11.6-14.8) Platelet Count 58 K/UL (150-450) Mean Platelet Volume 7.9 FL (6.5-10.1) Neutrophils (%) (Auto) % (45.0-75.0) Lymphocytes (%) (Auto) % (20.0-45.0) Monocytes (%) (Auto) % (1.0-10.0) Eosinophils (%) (Auto) % (0.0-3.0) Basophils (%) (Auto) % (0.0-2.0) Differential Total Cells Counted 100 Neutrophils % (Manual) 49 % (45-75) Lymphocytes % (Manual) 24 % (20-45) Monocytes % (Manual) 12 % (1-10) Eosinophils % (Manual) 2 % (0-3) Basophils % (Manual) 0 % (0-2) Band Neutrophils 13 % (0-8) Nucleated Red Blood Cells 7 /100 WBC Platelet Estimate Decreased Platelet Morphology Normal Polychromasia 1+ Hypochromasia 2+ Anisocytosis 2+ Prothrombin Time 12.4 SEC (9.30-11.50) Prothromb Time International Ratio 1.1 (0.9-1.1) Fibrinogen 492 mg/dL (200-400) D-Dimer 18.05 mg/L FEU (0.00-0.49) Sodium Level 142 MMOL/L (136-145) Potassium Level 2.9 MMOL/L (3.5-5.1) Chloride Level 105 MMOL/L (98-107) Carbon Dioxide Level 27 MMOL/L (21-32) Anion Gap 10 mmol/L (5-15) Blood Urea Nitrogen 40 mg/dL (7-18) Creatinine 2.7 MG/DL (0.55-1.30) Estimat Glomerular Filtration Rate 28.4 mL/min (>60) Glucose Level 117 MG/DL (74-106) Uric Acid 8.7 MG/DL (2.6-7.2) Calcium Level 7.5 MG/DL (8.5-10.1) Phosphorus Level 3.9 MG/DL (2.5-4.9) Magnesium Level 1.8 MG/DL (1.8-2.4) Total Bilirubin 0.5 MG/DL (0.2-1.0) Direct Bilirubin 0.2 MG/DL (0.0-0.3) Gamma Glutamyl Transpeptidase 89 U/L (5-85) Aspartate Amino Transf (AST/SGOT) 533 U/L (15-37) Alanine Aminotransferase (ALT/SGPT) 63 U/L (12-78) Alkaline Phosphatase 131 U/L (46-116) Total Protein 4.8 G/DL (6.4-8.2) Albumin 2.2 G/DL (3.4-5.0) Test 01/12/20 05:30 01/12/20 08:00 01/13/20 03:55 White Blood Count 2.7 K/UL (4.8-10.8) 4.8 K/UL (4.8-10.8) Red Blood Count 1.94 M/UL (4.70-6.10) 2.94 M/UL (4.70-6.10) Hemoglobin 5.8 G/DL (14.2-18.0) 8.3 G/DL (14.2-18.0) Hematocrit 17.4 % (42.0-52.0) 25.4 % (42.0-52.0) Mean Corpuscular Volume 90 FL (80-99) 86 FL (80-99) Mean Corpuscular Hemoglobin 29.9 PG (27.0-31.0) 28.3 PG (27.0-31.0) Mean Corpuscular Hemoglobin Concent 33.3 G/DL (32.0-36.0) 32.8 G/DL (32.0-36.0) Red Cell Distribution Width 19.3 % (11.6-14.8) 20.5 % (11.6-14.8) Platelet Count 55 K/UL (150-450) 51 K/UL (150-450) Mean Platelet Volume 8.3 FL (6.5-10.1) 8.7 FL (6.5-10.1) Neutrophils (%) (Auto) % (45.0-75.0) % (45.0-75.0) Lymphocytes (%) (Auto) % (20.0-45.0) % (20.0-45.0) Monocytes (%) (Auto) % (1.0-10.0) % (1.0-10.0) Eosinophils (%) (Auto) % (0.0-3.0) % (0.0-3.0) Basophils (%) (Auto) % (0.0-2.0) % (0.0-2.0) Differential Total Cells Counted 100 Neutrophils % (Manual) 44 % (45-75) Lymphocytes % (Manual) 28 % (20-45) Monocytes % (Manual) 13 % (1-10) Eosinophils % (Manual) 0 % (0-3) Basophils % (Manual) 0 % (0-2) Band Neutrophils 15 % (0-8) Nucleated Red Blood Cells 7 /100 WBC Platelet Estimate Decreased Platelet Morphology Normal Polychromasia 1+ Hypochromasia 2+ Anisocytosis 2+ Arterial Blood pH 7.539 (7.350-7.450) Arterial Blood Partial Pressure CO2 30.3 mmHg (35.0-45.0) Arterial Blood Partial Pressure O2 77.7 mmHg (75.0-100.0) Arterial Blood HCO3 25.3 mmol/L (22.0-26.0) Arterial Blood Oxygen Saturation 95.7 % (95-100) Arterial Blood Base Excess 2.5 (-2-2) Asael Test Positive Sodium Level 143 MMOL/L (136-145) Potassium Level 2.9 MMOL/L (3.5-5.1) Chloride Level 105 MMOL/L (98-107) Carbon Dioxide Level 25 MMOL/L (21-32) Anion Gap 13 mmol/L (5-15) Blood Urea Nitrogen 42 mg/dL (7-18) Creatinine 2.8 MG/DL (0.55-1.30) Estimat Glomerular Filtration Rate 27.3 mL/min (>60) Glucose Level 110 MG/DL (74-106) Uric Acid 9.2 MG/DL (2.6-7.2) Calcium Level 6.4 MG/DL (8.5-10.1) Phosphorus Level 3.2 MG/DL (2.5-4.9) Magnesium Level 1.6 MG/DL (1.8-2.4) Total Bilirubin 0.7 MG/DL (0.2-1.0) Aspartate Amino Transf (AST/SGOT) 256 U/L (15-37) Alanine Aminotransferase (ALT/SGPT) 29 U/L (12-78) Alkaline Phosphatase 121 U/L (46-116) C-Reactive Protein, Quantitative 39.2 mg/dL (0.00-0.90) Total Protein 4.7 G/DL (6.4-8.2) Albumin 2.0 G/DL (3.4-5.0) Globulin 2.7 g/dL Albumin/Globulin Ratio 0.7 (1.0-2.7) Height (Feet): 6 Height (Inches): 0.00 Weight (Pounds): 150 Objective PE: Vitals: reviewed General Appearance: NAD HEENT: normocephalic, atraumatic Neck: non-tender, normal alignment Respiratory/Chest: nromal breath sounds bilaterally Cardiovascular/Chest: normal peripheral pulses, normal rate Abdomen: normal bowel sounds, soft, nontender Extremities: normal range of motion Samuel Son MD Jan 13, 2020 07:18
[2020-01-13] MEDS: Docusate 100mg cap ORAL SCH (08:34)
[2020-01-13] MEDS: Pantoprazole Inj IVP SCH ×2 (08:34→20:35)
[2020-01-13] MEDS: Benztropine 1mg tab NG SCH (08:34)
--- NOTE | 2020-01-13 08:52 | General Progress Note ---
Subjective Constitutional: Reports: weakness Allergies: Coded Allergies: No Known Allergies (Unverified , 03/18/19) All Systems: reviewed and negative except above Subjective intubated sedated in icu Objective Last 24 Hour Vital Signs Date Time Temp Pulse Resp B/P (MAP) Pulse Ox O2 Delivery O2 Flow Rate FiO2 01/13/20 08:00 98.3 96 19 110/63 (79) 100 01/13/20 08:00 30 01/13/20 08:00 Mechanical Ventilator 01/13/20 07:58 94 01/13/20 07:00 88 16 102/52 (69) 99 01/13/20 06:30 98 18 110/58 (75) 99 01/13/20 06:21 116/66 01/13/20 06:00 88 16 116/66 (83) 99 01/13/20 05:30 90 14 99/55 (70) 100 01/13/20 05:15 91 19 30 01/13/20 05:00 99 17 126/56 (79) 98 01/13/20 04:30 90 16 117/54 (75) 100 01/13/20 04:00 Mechanical Ventilator 01/13/20 04:00 98.4 85 16 103/52 (69) 99 01/13/20 04:00 30 01/13/20 04:00 89 01/13/20 03:45 90 18 94/52 (66) 99 01/13/20 03:30 90 19 30 01/13/20 03:30 91 18 102/52 (69) 99 01/13/20 03:00 89 17 93/47 (62) 100 01/13/20 02:30 93 16 118/72 (87) 99 01/13/20 02:00 89 21 102/56 (71) 100 01/13/20 01:45 92 19 92/51 (65) 99 01/13/20 01:30 93 17 92/48 (63) 99 01/13/20 01:21 115 24 30 01/13/20 01:15 97 17 126/61 (82) 99 01/13/20 01:00 102 18 76/47 (57) 98 01/13/20 00:30 110 21 90/58 (69) 96 01/13/20 00:00 Mechanical Ventilator 01/13/20 00:00 110 01/13/20 00:00 98.5 121 28 116/75 (89) 96 01/13/20 00:00 30 01/12/20 23:30 111 23 126/67 (86) 96 01/12/20 23:15 112 23 30 01/12/20 23:00 98 16 119/60 (79) 99 01/12/20 22:45 94 18 92/50 (64) 100 01/12/20 22:30 96 17 116/56 (76) 100 01/12/20 22:15 94 19 106/62 (77) 100 01/12/20 22:00 97 17 94/52 (66) 100 01/12/20 21:48 87 22 30 01/12/20 21:45 95 18 91/51 (64) 100 01/12/20 21:35 94 17 122/65 (84) 100 01/12/20 21:30 96 19 79/45 (56) 100 01/12/20 21:00 94 20 101/57 (72) 100 01/12/20 20:00 98.8 99 19 95/51 (66) 100 01/12/20 20:00 30 01/12/20 20:00 Mechanical Ventilator 01/12/20 20:00 100 01/12/20 19:54 106 21 100 Mechanical Ventilator 30 01/12/20 19:52 101 20 30 01/12/20 19:00 108 21 89/54 (66) 98 01/12/20 18:30 114 23 107/67 (80) 96 01/12/20 18:15 117 20 107/95 (99) 99 01/12/20 18:00 116 23 111/60 (77) 99 01/12/20 17:45 114 22 104/61 (75) 99 01/12/20 17:30 108 19 106/60 (75) 99 01/12/20 17:11 98 19 30 01/12/20 17:00 99 16 114/59 (77) 100 01/12/20 16:30 99.2 99 21 99/56 (70) 100 01/12/20 16:00 97 20 106/57 (73) 100 01/12/20 16:00 30 01/12/20 16:00 Mechanical Ventilator 01/12/20 15:30 107 20 98/67 (77) 100 11/7/20 15:28 102 01/12/20 15:11 102 21 30 01/12/20 15:00 108 19 94/38 (56) 99 01/12/20 14:30 97.9 100 18 96/56 (69) 100 01/12/20 14:00 105 18 117/64 (81) 100 01/12/20 13:30 99 19 109/67 (81) 100 01/12/20 13:18 103 34 30 01/12/20 13:00 101 19 98/52 (67) 100 01/12/20 12:30 103 20 98/52 (67) 100 01/12/20 12:00 30 01/12/20 12:00 101 20 106/51 (69) 100 01/12/20 12:00 Mechanical Ventilator 01/12/20 11:30 97.3 104 19 99/52 (68) 100 01/12/20 11:22 104 01/12/20 11:21 110 26 30 01/12/20 11:00 97.9 105 19 98/51 (67) 100 01/12/20 10:23 103/52 01/12/20 10:00 105 21 103/52 (69) 100 01/12/20 09:30 105 22 95/55 (68) 100 01/12/20 09:00 114 23 103/54 (70) 100 01/12/20 08:56 108 26 100 Mechanical Ventilator 30 01/12/20 08:55 108 22 30 Intake and Output 01/12/20 01/13/20 19:00 07:00 Intake Total 796.25 ml 961.00 ml Output Total 255 ml 440 ml Balance 541.25 ml 521.00 ml IV Total 796.25 ml 961.00 ml Output Urine Total 255 ml 410 ml Stool Total 30 ml # Bowel Movements 3 Laboratory Tests 01/13/20 03:55: White Blood Count 4.8#, Red Blood Count 2.94L, Hemoglobin 8.3#L, Hematocrit 25.4#L, Mean Corpuscular Volume 86, Mean Corpuscular Hemoglobin 28.3, Mean Corpuscular Hemoglobin Concent 32.8, Red Cell Distribution Width 20.5H, Platelet Count 51L, Mean Platelet Volume 8.7, Neutrophils (%) (Auto) , Lymphocytes (%) (Auto) , Monocytes (%) (Auto) , Eosinophils (%) (Auto) , Basophils (%) (Auto) , Neutrophils % (Manual) [Pending], Lymphocytes % (Manual) [Pending], Platelet Estimate [Pending], Platelet Morphology [Pending], Sodium Level 143, Potassium Level 2.9L, Chloride Level 105, Carbon Dioxide Level 25, Anion Gap 13, Blood Ur ea Nitrogen 42H, Creatinine 2.8H, Estimat Glomerular Filtration Rate 27.3, Glucose Level 110H, Uric Acid 9.2H, Calcium Level 6.4L, Phosphorus Level 3.2, Magnesium Level 1.6L, Total Bilirubin 0.7, Aspartate Amino Transf (AST/SGOT) 256H, Alanine Aminotransferase (ALT/SGPT) 29, Alkaline Phosphatase 121H, C- Reactive Protein, Quantitative 39.2H, Total Protein 4.7L, Albumin 2.0L, Globulin 2.7, Albumin/Globulin Ratio 0.7L 01/13/20 07:37: Arterial Blood pH 7.552*H, Arterial Blood Partial Pressure CO2 26.8L, Arterial Blood Partial Pressure O2 80.8, Arterial Blood HCO3 23.0, Arterial Blood Oxygen Saturation 96.0, Arterial Blood Base Excess 1.2, Asael Test Positive Height (Feet): 6 Height (Inches): 0.00 Weight (Pounds): 150 General Appearance: lethargic EENT: normal ENT inspection Neck: normal alignment Cardiovascular: normal peripheral pulses, normal rate, regular rhythm Respiratory/Chest: chest wall non-tender, lungs clear, normal breath sounds Abdomen: normal bowel sounds, non tender, soft Extremities: normal inspection Edema: no edema noted Arm (L), no edema noted Arm (R), no edema noted Leg (L), no edema noted Leg (R), no edema noted Pedal (L), no edema noted Pedal (R), no edema noted Generalized Neurologic: motor weakness Skin: normal pigmentation, warm/dry Assessment/Plan Problem List: (1) Anemia ICD Codes: D64.9 - Anemia, unspecified SNOMED: 843888599 (2) Paraplegia ICD Codes: G82.20 - Paraplegia, unspecified SNOMED: 97452573 (3) Diabetes ICD Codes: E11.9 - Type 2 diabetes mellitus without complications SNOMED: 47421807 (4) Weak ICD Codes: R53.1 - Weakness SNOMED: 32222078 (5) HTN (hypertension) ICD Codes: I10 - Essential (primary) hypertension SNOMED: 83711814 (6) ARF (acute renal failure) ICD Codes: N17.9 - Acute kidney failure, unspecified SNOMED: 26579456 (7) Altered level of consciousness ICD Codes: R40.4 - Transient alteration of awareness SNOMED: 5474432 (8) Dehydration ICD Codes: E86.0 - Dehydration SNOMED: 81680370 (9) Hypernatremia ICD Codes: E87.0 - Hyperosmolality and hypernatremia SNOMED: 239832684 Status: deteriorating Assessment/Plan: o2 pulm tx abx ivf cbc bmp am pulm cardio f/u Farrukh Ríos DO Jan 13, 2020 08:52
--- NOTE | 2020-01-13 09:33 | Diagnostic Imaging Report ---
EXAM: XR Chest, 1 View CLINICAL HISTORY: ABN CHST TECHNIQUE: Frontal view of the chest. COMPARISON: Chest x-ray dated 01/11/20 FINDINGS: Lungs: No significant change in bilateral patchy pulmonary opacities, concerning for pneumonia versus edema. Pleural space: Small bilateral pleural effusions. Heart: Unremarkable. No cardiomegaly. Mediastinum: Unremarkable. Bones/joints: Unremarkable. Tubes, lines and devices: Endotracheal tube tip 5.2 cm above the héctor. Telemetry leads overlie the thorax. IMPRESSION: 1. No significant change in bilateral patchy pulmonary opacities, concerning for pneumonia versus edema. 2. Small bilateral pleural effusions.
[2020-01-13] MEDS ORDERED: Calcium Gluconate 1gm/50ml 50 ML IVPB ONE (10:15)
--- NOTE | 2020-01-13 10:17 | Nephrology Progress Note ---
Assessment/Plan Problem List: (1) ARF (acute renal failure) (2) Hypernatremia (3) Hypovolemic shock (4) Altered level of consciousness (5) Hypercalcemia (6) Hyperuricemia Assessment Acute renal failure Possible underlying chronic kidney failure Severe dehydration Hypernatremia indicative of severe water deficit Severe hyperuricemia, partly due to dehydration and renal failure Acute metabolic and toxic encephalopathy Mild, malnutrition Anemia Lactic acid, possible sepsis Hypercalcemia Plan January 12: Remains in ICU. Intubated. Transfused yesterday. Abnormal electrolytes addressed. Dialyzed once January 10. Serum creatinine stable. Will adjust IV fluid. Monitor renal parameters. Dialysis as needed. Calcium gluconate IV ordered. Ionized calcium level ordered with tomorrow's labs. January 11: Patient in ICU. Intubated. On Levophed. Hemoglobin low. Due for transfusion. Electrolyte abnormalities noted and addressed. Patient was dialyzed yesterday. Will check lab tomorrow. Dialysis as needed. Discussed with SELIN Srivastava. January 10: Patient is doing poorly. Blood pressure low. ABG abnormal with metabolic acidosis. IV sodium bicarb given. Serum creatinine reno. Patient has acute renal failure. Nontunneled dialysis catheter replacement ordered.. Patient need life saving dialysis treatment SRINIVAS. January 09: Labs reviewed. IV D5 and a half with sodium bicarb initiated. Serum creatinine higher. Continue to monitor renal parameters. NG feeding was changed to Nepro. Patient remains full code. Poor prognosis. January 08: Labs reviewed. IV D5W discontinued. 500 cc 3% saline ordered. NG tube for feeding and for medications. Allopurinol dose increased. Continue to monitor renal parameters serum calcium and phosphorus. January 07: Labs reviewed. Serum calcium remains elevated. Uric acid still elevated. Will give pamidronate 60 mg IV piggyback once for hypercalcemia. Continue to monitor renal parameters. Continue D5W 150 cc an hour. Start Bicitra 30 cc p.o. every 6 hours. Add allopurinol D5W IV hydration Albumin bolus N.p.o. until able to take p.o. Antibiotics Monitor renal parameters monitor calcium, monitor uric acid Subjective ROS Limited/Unobtainable: Yes Objective Objective Last 24 Hour Vital Signs Date Time Temp Pulse Resp B/P (MAP) Pulse Ox O2 Delivery O2 Flow Rate FiO2 01/13/20 10:00 98 21 144/66 (92) 97 01/13/20 09:30 89 16 88/47 (61) 99 01/13/20 09:00 88 16 91/47 (62) 100 01/13/20 08:30 102 20 118/59 (78) 98 01/13/20 08:00 98.3 96 19 110/63 (79) 100 01/13/20 08:00 30 01/13/20 08:00 Mechanical Ventilator 01/13/20 07:58 94 01/13/20 07:30 88 15 103/66 (78) 99 01/13/20 07:00 88 16 102/52 (69) 99 01/13/20 06:40 91 24 30 01/13/20 06:30 98 18 110/58 (75) 99 01/13/20 06:21 116/66 01/13/20 06:00 88 16 116/66 (83) 99 01/13/20 05:30 90 14 99/55 (70) 100 01/13/20 05:15 91 19 30 01/13/20 05:00 99 17 126/56 (79) 98 01/13/20 04:30 90 16 117/54 (75) 100 01/13/20 04:00 Mechanical Ventilator 01/13/20 04:00 98.4 85 16 103/52 (69) 99 01/13/20 04:00 30 01/13/20 04:00 89 01/13/20 03:45 90 18 94/52 (66) 99 01/13/20 03:30 90 19 30 01/13/20 03:30 91 18 102/52 (69) 99 01/13/20 03:00 89 17 93/47 (62) 100 01/13/20 02:30 93 16 118/72 (87) 99 01/13/20 02:00 89 21 102/56 (71) 100 01/13/20 01:45 92 19 92/51 (65) 99 01/13/20 01:30 93 17 92/48 (63) 99 01/13/20 01:21 115 24 30 01/13/20 01:15 97 17 126/61 (82) 99 01/13/20 01:00 102 18 76/47 (57) 98 01/13/20 00:30 110 21 90/58 (69) 96 01/13/20 00:00 Mechanical Ventilator 11/8/20 00:00 110 01/13/20 00:00 98.5 121 28 116/75 (89) 96 01/13/20 00:00 30 01/12/20 23:30 111 23 126/67 (86) 96 01/12/20 23:15 112 23 30 01/12/20 23:00 98 16 119/60 (79) 99 01/12/20 22:45 94 18 92/50 (64) 100 01/12/20 22:30 96 17 116/56 (76) 100 01/12/20 22:15 94 19 106/62 (77) 100 01/12/20 22:00 97 17 94/52 (66) 100 01/12/20 21:48 87 22 30 01/12/20 21:45 95 18 91/51 (64) 100 01/12/20 21:35 94 17 122/65 (84) 100 01/12/20 21:30 96 19 79/45 (56) 100 01/12/20 21:00 94 20 101/57 (72) 100 01/12/20 20:00 98.8 99 19 95/51 (66) 100 01/12/20 20:00 30 01/12/20 20:00 Mechanical Ventilator 01/12/20 20:00 100 01/12/20 19:54 106 21 100 Mechanical Ventilator 30 01/12/20 19:52 101 20 30 01/12/20 19:00 108 21 89/54 (66) 98 01/12/20 18:30 114 23 107/67 (80) 96 01/12/20 18:15 117 20 107/95 (99) 99 01/12/20 18:00 116 23 111/60 (77) 99 01/12/20 17:45 114 22 104/61 (75) 99 01/12/20 17:30 108 19 106/60 (75) 99 01/12/20 17:11 98 19 30 01/12/20 17:00 99 16 114/59 (77) 100 01/12/20 16:30 99.2 99 21 99/56 (70) 100 01/12/20 16:00 97 20 106/57 (73) 100 01/12/20 16:00 30 01/12/20 16:00 Mechanical Ventilator 01/12/20 15:30 107 20 98/67 (77) 100 01/12/20 15:28 102 01/12/20 15:11 102 21 30 01/12/20 15:00 108 19 94/38 (56) 99 01/12/20 14:30 97.9 100 18 96/56 (69) 100 01/12/20 14:00 105 18 117/64 (81) 100 01/12/20 13:30 99 19 109/67 (81) 100 01/12/20 13:18 103 34 30 01/12/20 13:00 101 19 98/52 (67) 100 01/12/20 12:30 103 20 98/52 (67) 100 01/12/20 12:00 30 01/12/20 12:00 101 20 106/51 (69) 100 01/12/20 12:00 Mechanical Ventilator 01/12/20 11:30 97.3 104 19 99/52 (68) 100 01/12/20 11:22 104 01/12/20 11:21 110 26 30 01/12/20 11:00 97.9 105 19 98/51 (67) 100 01/12/20 10:23 103/52 Intake and Output 01/12/20 01/13/20 19:00 07:00 Intake Total 796.25 ml 961.00 ml Output Total 255 ml 440 ml Balance 541.25 ml 521.00 ml IV Total 796.25 ml 961.00 ml Output Urine Total 255 ml 410 ml Stool Total 30 ml # Bowel Movements 3 Laboratory Tests 01/13/20 03:55: White Blood Count 4.8#, Red Blood Count 2.94L, Hemoglobin 8.3#L, Hematocrit 25.4#L, Mean Corpuscular Volume 86, Mean Corpuscular Hemoglobin 28.3, Mean Corpuscular Hemoglobin Concent 32.8, Red Cell Distribution Width 20.5H, Platelet Count 51L, Mean Platelet Volume 8.7, Neutrophils (%) (Auto) , Lymphocytes (%) (Auto) , Monocytes (%) (Auto) , Eosinophils (%) (Auto) , Basophils (%) (Auto) , Differential Total Cells Counted 100, Neutrophils % (Manual) 61, Lymphocytes % (Manual) 21, Monocytes % (Manual) 5, Eosinophils % (Manual) 0, Basophils % (Manual) 0, Metamyelocytes % 1H, Band Neutrophils 12H, Nucleated Red Blood Cells 7, Platelet Estimate DecreasedL, Platelet Morphology Normal, Polychromasia 1+, Hypochromasia 1+, Anisocytosis 2+, Sodium Level 143, Potassium Level 2.9L, Chloride Level 105, Carbon Dioxide Level 25, Anion Gap 13, Blood Urea Nitrogen 42H, Creatinine 2.8H, Estimat Glomerular Filtration Rate 27.3, Glucose Level 110H, Uric Acid 9.2H, Calcium Level 6.4L, Phosphorus Level 3.2, Magnesium Level 1.6L, Total Bilirubin 0.7, Aspartate Amino Transf (AST/SGOT) 256H, Alanine Aminotransferase (ALT/SGPT) 29, Alkaline Phosphatase 121H, C-Reactive Protein, Quantitative 39.2H, Total Protein 4.7L, Albumin 2.0L, Globulin 2.7, Albumin/Globulin Ratio 0.7L 01/13/20 07:37: Arterial Blood pH 7.552*H, Arterial Blood Partial Pressure CO2 26.8L, Arterial Blood Partial Pressure O2 80.8, Arterial Blood HCO3 23.0, Arterial Blood Oxygen Saturation 96.0, Arterial Blood Base Excess 1.2, Asael Test Positive Height (Feet): 6 Height (Inches): 0.00 Weight (Pounds): 150 General Appearance: no apparent distress EENT: other - Intubated in ICU Cardiovascular: tachycardia Respiratory/Chest: decreased breath sounds Abdomen: distended Dhiraj Biswas MD Jan 13, 2020 10:17
--- NOTE | 2020-01-13 10:41 | Pulmonology Progress Note ---
Subjective ROS Limited/Unobtainable: Yes Interval Events: Intubated, more awake; Constitutional: Reports: no symptoms HEENT: Repors: no symptoms Respiratory: Reports: no symptoms Cardiovascular: Reports: no symptoms Gastrointestinal/Abdominal: Reports: no symptoms Genitourinary: Reports: no symptoms Allergies: Coded Allergies: No Known Allergies (Unverified , 03/18/19) All Systems: reviewed and negative except above Objective Last 24 Hour Vital Signs Date Time Temp Pulse Resp B/P (MAP) Pulse Ox O2 Delivery O2 Flow Rate FiO2 01/13/20 10:00 98 21 144/66 (92) 97 01/13/20 09:30 89 16 88/47 (61) 99 01/13/20 09:05 93 20 30 01/13/20 09:00 88 16 91/47 (62) 100 01/13/20 08:30 102 20 118/59 (78) 98 01/13/20 08:00 98.3 96 19 110/63 (79) 100 01/13/20 08:00 30 01/13/20 08:00 Mechanical Ventilator 01/13/20 07:58 94 01/13/20 07:30 88 15 103/66 (78) 99 01/13/20 07:00 88 16 102/52 (69) 99 01/13/20 06:40 91 24 30 01/13/20 06:30 98 18 110/58 (75) 99 01/13/20 06:21 116/66 01/13/20 06:00 88 16 116/66 (83) 99 01/13/20 05:30 90 14 99/55 (70) 100 01/13/20 05:15 91 19 30 01/13/20 05:00 99 17 126/56 (79) 98 01/13/20 04:30 90 16 117/54 (75) 100 01/13/20 04:00 Mechanical Ventilator 01/13/20 04:00 98.4 85 16 103/52 (69) 99 01/13/20 04:00 30 01/13/20 04:00 89 01/13/20 03:45 90 18 94/52 (66) 99 01/13/20 03:30 90 19 30 01/13/20 03:30 91 18 102/52 (69) 99 01/13/20 03:00 89 17 93/47 (62) 100 01/13/20 02:30 93 16 118/72 (87) 99 01/13/20 02:00 89 21 102/56 (71) 100 01/13/20 01:45 92 19 92/51 (65) 99 01/13/20 01:30 93 17 92/48 (63) 99 01/13/20 01:21 115 24 30 01/13/20 01:15 97 17 126/61 (82) 99 01/13/20 01:00 102 18 76/47 (57) 98 01/13/20 00:30 110 21 90/58 (69) 96 01/13/20 00:00 Mechanical Ventilator 01/13/20 00:00 110 01/13/20 00:00 98.5 121 28 116/75 (89) 96 01/13/20 00:00 30 01/12/20 23:30 111 23 126/67 (86) 96 01/12/20 23:15 112 23 30 01/12/20 23:00 98 16 119/60 (79) 99 01/12/20 22:45 94 18 92/50 (64) 100 01/12/20 22:30 96 17 116/56 (76) 100 01/12/20 22:15 94 19 106/62 (77) 100 01/12/20 22:00 97 17 94/52 (66) 100 01/12/20 21:48 87 22 30 01/12/20 21:45 95 18 91/51 (64) 100 01/12/20 21:35 94 17 122/65 (84) 100 01/12/20 21:30 96 19 79/45 (56) 100 01/12/20 21:00 94 20 101/57 (72) 100 01/12/20 20:00 98.8 99 19 95/51 (66) 100 01/12/20 20:00 30 01/12/20 20:00 Mechanical Ventilator 01/12/20 20:00 100 01/12/20 19:54 106 21 100 Mechanical Ventilator 30 01/12/20 19:52 101 20 30 01/12/20 19:00 108 21 89/54 (66) 98 01/12/20 18:30 114 23 107/67 (80) 96 01/12/20 18:15 117 20 107/95 (99) 99 01/12/20 18:00 116 23 111/60 (77) 99 01/12/20 17:45 114 22 104/61 (75) 99 01/12/20 17:30 108 19 106/60 (75) 99 01/12/20 17:11 98 19 30 01/12/20 17:00 99 16 114/59 (77) 100 01/12/20 16:30 99.2 99 21 99/56 (70) 100 01/12/20 16:00 97 20 106/57 (73) 100 01/12/20 16:00 30 01/12/20 16:00 Mechanical Ventilator 01/12/20 15:30 107 20 98/67 (77) 100 01/12/20 15:28 102 01/12/20 15:11 102 21 30 01/12/20 15:00 108 19 94/38 (56) 99 01/12/20 14:30 97.9 100 18 96/56 (69) 100 01/12/20 14:00 105 18 117/64 (81) 100 01/12/20 13:30 99 19 109/67 (81) 100 01/12/20 13:18 103 34 30 01/12/20 13:00 101 19 98/52 (67) 100 01/12/20 12:30 103 20 98/52 (67) 100 01/12/20 12:00 30 01/12/20 12:00 101 20 106/51 (69) 100 01/12/20 12:00 Mechanical Ventilator 01/12/20 11:30 97.3 104 19 99/52 (68) 100 01/12/20 11:22 104 01/12/20 11:21 110 26 30 01/12/20 11:00 97.9 105 19 98/51 (67) 100 Intake and Output 01/12/20 01/13/20 19:00 07:00 Intake Total 796.25 ml 961.00 ml Output Total 255 ml 440 ml Balance 541.25 ml 521.00 ml IV Total 796.25 ml 961.00 ml Output Urine Total 255 ml 410 ml Stool Total 30 ml # Bowel Movements 3 General Appearance: no acute distress HEENT: normocephalic Respiratory: chest wall non-tender, lungs clear Cardiovascular: normal peripheral pulses, normal rate Abdomen: normal bowel sounds Microbiology Date/Time Source Procedure Growth Status 01/11/20 18:00 Urine,Clean Catch Urine Culture - Preliminary NO GROWTH AFTER 24 HOURS Resulted 01/11/20 14:30 Blood Blood Culture - Preliminary NO GROWTH AFTER 24 HOURS Resulted 01/11/20 14:15 Blood Blood Culture - Preliminary NO GROWTH AFTER 24 HOURS Resulted Laboratory Tests 01/13/20 03:55: White Blood Count 4.8#, Red Blood Count 2.94L, Hemoglobin 8.3#L, Hematocrit 25.4#L, Mean Corpuscular Volume 86, Mean Corpuscular Hemoglobin 28.3, Mean Corpuscular Hemoglobin Concent 32.8, Red Cell Distribution Width 20.5H, Platelet Count 51L, Mean Platelet Volume 8.7, Neutrophils (%) (Auto) , Lymphocytes (%) (Auto) , Monocytes (%) (Auto) , Eosinophils (%) (Auto) , Basophils (%) (Auto) , Differential Total Cells Counted 100, Neutrophils % (Manual) 61, Lymphocytes % (Manual) 21, Monocytes % (Manual) 5, Eosinophils % (Manual) 0, Basophils % (Manual) 0, Metamyelocytes % 1H, Band Neutrophils 12H, Nucleated Red Blood Cells 7, Platelet Estimate DecreasedL, Platelet Morphology Normal, Polychromasia 1+, Hypochromasia 1+, Anisocytosis 2+, Sodium Level 143, Potassium Level 2.9L, Chloride Level 105, Carbon Dioxide Level 25, Anion Gap 13, Blood Urea Nitrogen 42H, Creatinine 2.8H, Estimat Glomerular Filtration Rate 27.3, Glucose Level 110H, Uric Acid 9.2H, Calcium Level 6.4L, Phosphorus Level 3.2, Magnesium Level 1.6L, Total Bilirubin 0.7, Aspartate Amino Transf (AST/SGOT) 256H, Alanine Aminotransferase (ALT/SGPT) 29, Alkaline Phosphatase 121H, C-Reactive Protein, Quantitative 39.2H, Total Protein 4.7L, Albumin 2.0L, Globulin 2.7, Albumin/Globulin Ratio 0.7L 01/13/20 07:37: Arterial Blood pH 7.552*H, Arterial Blood Partial Pressure CO2 26.8L, Arterial Blood Partial Pressure O2 80.8, Arterial Blood HCO3 23.0, Arterial Blood Oxygen Saturation 96.0, Arterial Blood Base Excess 1.2, Asael Test Positive Current Medications Medications (Trade) Dose Ordered Sig/Jesse Route PRN Reason Start Time Stop Time Status Last Admin Dose Admin Acetaminophen (Tylenol) 650 mg Q4H PRN ORAL PRNH/TEMP 01/05/20 20:15 02/04/20 20:14 01/12/20 03:10 Albuterol/ Ipratropium (Albuterol/ Ipratropium) 3 ml Q4H PRN HHN Bronchospasm 01/10/20 18:56 01/15/20 18:55 Allopurinol (allopurinoL) 300 mg BID NG 01/09/20 18:00 02/06/20 14:14 01/13/20 08:34 Aluminum Hydroxide (Amphojel) 1,920 mg Q8HR NG 01/13/20 14:00 02/10/20 09:59 Bisacodyl (Dulcolax) 10 mg DAILY PRN RECTAL Constipation 01/05/20 20:15 04/04/20 20:14 Calcium Gluconate/ Sodium Chloride 50 ml @ 50 mls/hr ONCE ONCE IVPB 01/13/20 10:15 01/13/20 11:14 Calcium Gluconate/ Sodium Chloride 50 ml @ 50 mls/hr Q12HR IVPB 01/13/20 21:00 04/12/20 20:59 Chlorhexidine Gluconate (Navya-Hex 2%) 1 applic DAILY@2000 TOPIC 01/11/20 20:00 04/10/20 19:59 01/12/20 19:55 Clopidogrel Bisulfate (Plavix) 75 mg DAILY NG 01/11/20 09:00 02/05/20 08:59 01/11/20 09:25 Dextrose (Dextrose 50%) 25 ml Q30M PRN IV Hypoglycemia 01/05/20 20:15 04/04/20 20:14 Dextrose (Dextrose 50%) 50 ml Q30M PRN IV Hypoglycemia 01/05/20 20:15 04/04/20 20:14 Dextrose/Sodium Chloride 1,000 ml @ 100 mls/hr Q10H IV 01/12/20 12:00 02/11/20 11:59 01/13/20 06:56 Docusate Sodium (Colace) 200 mg DAILY ORAL 01/06/20 09:00 02/05/20 08:59 01/11/20 09:24 Gadobutrol (Gadavist) 7.5 mmol NOW PRN IV Radiology Procedure 01/11/20 09:15 01/15/20 09:14 Linaclotide (Linzess) 290 mcg BEFORE BREAKFAST ORAL 01/10/20 06:30 04/09/20 06:29 01/11/20 05:33 Norepinephrine Bitartrate 250 ml @ 0 mls/hr Q24H IV 01/11/20 12:00 01/14/20 11:29 01/13/20 06:21 Ondansetron HCl (Zofran) 4 mg Q6H PRN IVP Nausea & Vomiting 01/10/20 06:30 02/09/20 06:29 Oxymetazoline HCl (Afrin Nasal [place]) 2 spray Q12HR PRN NASAL dry nasal passage 01/11/20 08:00 04/10/20 07:59 Pantoprazole (Protonix) 40 mg EVERY 12 HOURS IVP 01/05/20 21:00 02/04/20 20:59 01/13/20 08:34 Piperacillin Sod/ Tazobactam Sod 2.25 gm/Dextrose 55 ml @ 110 mls/hr Q8H IV 01/11/20 18:00 01/18/20 17:59 01/13/20 10:03 Polyethylene Glycol (Miralax) 17 gm BEDTIME NG 01/11/20 21:00 02/08/20 20:59 Sennosides (Senokot) 8.6 mg QHS NG 01/11/20 21:00 02/04/20 20:59 Vancomycin HCl ([facility]anco pharmacy to dose) 1 ea DAILY PRN MISC Per rx protocol 01/12/20 14:45 02/11/20 14:44 Assessment/Plan Assessment/Plan IMPRESSION: 1. Severe metabolic acidosis. 2. Respiratory failure 3. Diarrhea. 4. Acute renal failure. 5. Anemia DISCUSSION: Continue vent Will attempt to wean Continue antibiotics, IV fluid hydration. Pressors prn Rectal tube Daxa Infante Omar Syed MD Jan 13, 2020 10:41
--- NOTE | 2020-01-13 14:03 | Cardiology Report ---
APPROVED REPORT EXAM: Two-dimensional and M-mode echocardiogram with Doppler and color Doppler. INDICATION SOB M-Mode DIMENSIONS IVSd0.9 (0.7-1.1cm)Left Atrium (MM)3.1 (1.6-4.0cm) LVDd3.9 (3.5-5.6cm)Aortic Root3.1 (2.0-3.7cm) PWd1.3 (0.7-1.1cm)Aortic Cusp Exc.2.3 (1.5-2.0cm) IVSs1.3 cmEPSS0.3 (>1.0cm) LVDs2.2 (2.5-4.0cm) PWs2.0 cm <Conclusion> Normal left ventricular chamber size and systolic function and wall motion to extent visualized. Left ventricular ejection fraction estimated to be 65 %. All other cardiac chamber sizes are within normal limits. Focal aortic valve sclerosis with adequate cusp excursion. Thickened mitral valve leaflets with normal excursion. Mitral annulus and aortic root calcification. Normal pulmonic valve structure. Normal tricuspid valve structure. IVC dilated at 2.6 cm with slight physiologic collapse suggestive of increased RA pressure,RAP estimated 10mmHG. A color flow and spectral Doppler study was performed and revealed: No aortic regurgitation. Trace mitral regurgitation. Mitral diastolic velocities suggest reduced left ventricular relaxation c/w mild LV diastolic dysfunction (Grade I ). Trace tricuspid regurgitation. Tricuspid systolic velocities suggests peak right ventricular systolic pressure of 16 mmHg.
--- NOTE | 2020-01-13 17:17 | Cardiac Electrophysiology PN ---
Assessment/Plan Assessment/Plan 1. Altered mental status due to severe dehydration in view of sodium of 160 and acute renal failure. On IV fluids and IV antibiotics. Ruled out for TX. Na 132 now 2. Hypotension. Off BP meds (at the correction, the patient was on amlodipine and metoprolol) On 5 mcg of Levophed 3. History of CVA, Plavix DCed in view of hematuria. 4. Advanced dementia. NGT feeding 5. Diabetes. 6. Acute renal failure. The patient is being hydrated.Cr 4.2. May need HD 7. Hematuria 8. Anemia with Hb 5.8 and coffee ground emesis. EGD Tuesday 9. Shock liver with increase AST>2000 [address] RN Subjective Subjective In ICU extubated. Has NGT in. On Levo 5 mcg. Scheduled for EGD Tuesday Objective Last 24 Hour Vital Signs Date Time Temp Pulse Resp B/P (MAP) Pulse Ox O2 Delivery O2 Flow Rate FiO2 01/13/20 17:00 89 16 99/58 (72) 100 01/13/20 16:30 98.2 100 21 126/62 (83) 100 01/13/20 16:00 Venturi Mask 10.0 01/13/20 16:00 97 19 119/64 (82) 100 01/13/20 15:34 98 01/13/20 15:30 98 18 120/69 (86) 100 01/13/20 15:00 92 19 120/64 (82) 100 01/13/20 14:30 97 17 121/69 (86) 100 01/13/20 14:00 92 16 126/64 (84) 100 01/13/20 13:30 91 18 113/60 (77) 100 01/13/20 13:10 100 01/13/20 13:10 Venturi Mask 10.0 40 01/13/20 13:10 Mechanical Ventilator 01/13/20 13:10 10.0 40 01/13/20 13:10 100 Cool Aerosol 10.0 40 01/13/20 13:00 86 19 102/51 (68) 100 01/13/20 12:45 86 18 101/52 (68) 100 01/13/20 12:30 90 17 109/56 (73) 100 01/13/20 12:15 103 21 115/63 (80) 100 01/13/20 12:00 Venturi Mask 10.0 01/13/20 12:00 98.5 87 19 86/44 (58) 100 01/13/20 11:57 88 01/13/20 11:30 94 18 99/52 (68) 100 01/13/20 11:01 116 27 30 01/13/20 11:00 116 25 122/61 (81) 100 01/13/20 11:00 30 01/13/20 10:45 118 24 139/75 (96) 92 01/13/20 10:30 118 28 149/60 (89) 84 01/13/20 10:15 112 20 141/74 (96) 95 01/13/20 10:00 98 21 144/66 (92) 97 01/13/20 09:45 91 16 138/65 (89) 98 01/13/20 09:30 89 16 88/47 (61) 99 01/13/20 09:05 93 20 30 01/13/20 09:00 88 16 91/47 (62) 100 01/13/20 08:30 102 20 118/59 (78) 98 01/13/20 08:00 98.3 96 19 110/63 (79) 100 01/13/20 08:00 30 01/13/20 08:00 Mechanical Ventilator 01/13/20 07:58 94 01/13/20 07:30 88 15 103/66 (78) 99 01/13/20 07:00 88 16 102/52 (69) 99 01/13/20 06:40 91 24 30 01/13/20 06:30 98 18 110/58 (75) 99 01/13/20 06:21 116/66 01/13/20 06:00 88 16 116/66 (83) 99 01/13/20 05:30 90 14 99/55 (70) 100 01/13/20 05:15 91 19 30 01/13/20 05:00 99 17 126/56 (79) 98 01/13/20 04:30 90 16 117/54 (75) 100 01/13/20 04:00 Mechanical Ventilator 01/13/20 04:00 98.4 85 16 103/52 (69) 99 01/13/20 04:00 30 01/13/20 04:00 89 01/13/20 03:45 90 18 94/52 (66) 99 01/13/20 03:30 90 19 30 01/13/20 03:30 91 18 102/52 (69) 99 01/13/20 03:00 89 17 93/47 (62) 100 01/13/20 02:30 93 16 118/72 (87) 99 01/13/20 02:00 89 21 102/56 (71) 100 01/13/20 01:45 92 19 92/51 (65) 99 01/13/20 01:30 93 17 92/48 (63) 99 01/13/20 01:21 115 24 30 01/13/20 01:15 97 17 126/61 (82) 99 01/13/20 01:00 102 18 76/47 (57) 98 01/13/20 00:30 110 21 90/58 (69) 96 01/13/20 00:00 Mechanical Ventilator 01/13/20 00:00 110 01/13/20 00:00 98.5 121 28 116/75 (89) 96 01/13/20 00:00 30 01/12/20 23:30 111 23 126/67 (86) 96 01/12/20 23:15 112 23 30 01/12/20 23:00 98 16 119/60 (79) 99 01/12/20 22:45 94 18 92/50 (64) 100 01/12/20 22:30 96 17 116/56 (76) 100 01/12/20 22:15 94 19 106/62 (77) 100 01/12/20 22:00 97 17 94/52 (66) 100 01/12/20 21:48 87 22 30 01/12/20 21:45 95 18 91/51 (64) 100 01/12/20 21:35 94 17 122/65 (84) 100 01/12/20 21:30 96 19 79/45 (56) 100 01/12/20 21:00 94 20 101/57 (72) 100 01/12/20 20:00 98.8 99 19 95/51 (66) 100 01/12/20 20:00 30 01/12/20 20:00 Mechanical Ventilator 01/12/20 20:00 100 01/12/20 19:54 106 21 100 Mechanical Ventilator 30 01/12/20 19:52 101 20 30 01/12/20 19:00 108 21 89/54 (66) 98 01/12/20 18:30 114 23 107/67 (80) 96 01/12/20 18:15 117 20 107/95 (99) 99 01/12/20 18:00 116 23 111/60 (77) 99 01/12/20 17:45 114 22 104/61 (75) 99 01/12/20 17:30 108 19 106/60 (75) 99 Intake and Output 01/12/20 01/13/20 19:00 07:00 Intake Total 796.25 ml 961.00 ml Output Total 255 ml 440 ml Balance 541.25 ml 521.00 ml IV Total 796.25 ml 961.00 ml Output Urine Total 255 ml 410 ml Stool Total 30 ml # Bowel Movements 3 Laboratory Tests Test 01/12/20 17:34 01/12/20 20:32 01/13/20 03:55 01/13/20 06:00 POC Whole Blood Glucose 94 MG/DL (74-106) Pending 111 MG/DL (74-106) H White Blood Count 4.8 K/UL (4.8-10.8) # Red Blood Count 2.94 M/UL (4.70-6.10) L Hemoglobin 8.3 G/DL (14.2-18.0) #L Hematocrit 25.4 % (42.0-52.0) #L Mean Corpuscular Volume 86 FL (80-99) Mean Corpuscular Hemoglobin 28.3 PG (27.0-31.0) Mean Corpuscular Hemoglobin Concent 32.8 G/DL (32.0-36.0) Red Cell Distribution Width 20.5 % (11.6-14.8) H Platelet Count 51 K/UL (150-450) L Mean Platelet Volume 8.7 FL (6.5-10.1) Neutrophils (%) (Auto) % (45.0-75.0) Lymphocytes (%) (Auto) % (20.0-45.0) Monocytes (%) (Auto) % (1.0-10.0) Eosinophils (%) (Auto) % (0.0-3.0) Basophils (%) (Auto) % (0.0-2.0) Differential Total Cells Counted 100 Neutrophils % (Manual) 61 % (45-75) Lymphocytes % (Manual) 21 % (20-45) Monocytes % (Manual) 5 % (1-10) Eosinophils % (Manual) 0 % (0-3) Basophils % (Manual) 0 % (0-2) Metamyelocytes % 1 % (0-0) H Band Neutrophils 12 % (0-8) H Nucleated Red Blood Cells 7 /100 WBC Platelet Estimate Decreased L Platelet Morphology Normal Polychromasia 1+ Hypochromasia 1+ Anisocytosis 2+ Sodium Level 143 MMOL/L (136-145) Potassium Level 2.9 MMOL/L (3.5-5.1) L Chloride Level 105 MMOL/L (98-107) Carbon Dioxide Level 25 MMOL/L (21-32) Anion Gap 13 mmol/L (5-15) Blood Urea Nitrogen 42 mg/dL (7-18) H Creatinine 2.8 MG/DL (0.55-1.30) H Estimat Glomerular Filtration Rate 27.3 mL/min (>60) Glucose Level 110 MG/DL (74-106) H Uric Acid 9.2 MG/DL (2.6-7.2) H Calcium Level 6.4 MG/DL (8.5-10.1) L Phosphorus Level 3.2 MG/DL (2.5-4.9) Magnesium Level 1.6 MG/DL (1.8-2.4) L Total Bilirubin 0.7 MG/DL (0.2-1.0) Aspartate Amino Transf (AST/SGOT) 256 U/L (15-37) H Alanine Aminotransferase (ALT/SGPT) 29 U/L (12-78) Alkaline Phosphatase 121 U/L (46-116) H C-Reactive Protein, Quantitative 39.2 mg/dL (0.00-0.90) H Total Protein 4.7 G/DL (6.4-8.2) L Albumin 2.0 G/DL (3.4-5.0) L Globulin 2.7 g/dL Albumin/Globulin Ratio 0.7 (1.0-2.7) L Test 01/13/20 07:37 01/13/20 11:38 01/13/20 12:09 01/13/20 16:48 Arterial Blood pH 7.552 (7.350-7.450) 7.563 (7.350-7.450) Arterial Blood Partial Pressure CO2 26.8 mmHg (35.0-45.0) L 24.1 mmHg (35.0-45.0) *L Arterial Blood Partial Pressure O2 80.8 mmHg (75.0-100.0) 74.0 mmHg (75.0-100.0) L Arterial Blood HCO3 23.0 mmol/L (22.0-26.0) 21.2 mmol/L (22.0-26.0) L Arterial Blood Oxygen Saturation 96.0 % (95-100) 95.2 % (95-100) Arterial Blood Base Excess 1.2 (-2-2) -0.3 (-2-2) Asael Test Positive Positive POC Whole Blood Glucose Pending Pending Microbiology Date/Time Source Procedure Growth Status 01/11/20 18:00 Urine,Clean Catch Urine Culture - Preliminary NO GROWTH AFTER 24 HOURS Resulted 01/11/20 14:30 Blood Blood Culture - Preliminary NO GROWTH AFTER 24 HOURS Resulted 01/11/20 14:15 Blood Blood Culture - Preliminary NO GROWTH AFTER 24 HOURS Resulted Objective HEAD AND NECK: No JVD.NGT in place LUNGS: Coarse rhonchi. CARDIOVASCULAR: Regular S1 and S2 with no gallop. ABDOMEN: Soft. EXTREMITIES: No pitting edema. Kevin Lopez MD Jan 13, 2020 17:17
--- NOTE | 2020-01-13 17:48 | General Progress Note ---
Subjective Allergies: Coded Allergies: No Known Allergies (Unverified , 03/18/19) Subjective above noted d/w RN NPO at this time extubated after my visit Objective Last 24 Hour Vital Signs Date Time Temp Pulse Resp B/P (MAP) Pulse Ox O2 Delivery O2 Flow Rate FiO2 01/13/20 17:00 Venturi Mask 10.0 01/13/20 17:00 89 16 99/58 (72) 100 01/13/20 16:30 98.2 100 21 126/62 (83) 100 01/13/20 16:00 Venturi Mask 10.0 01/13/20 16:00 97 19 119/64 (82) 100 01/13/20 15:34 98 01/13/20 15:30 98 18 120/69 (86) 100 01/13/20 15:00 92 19 120/64 (82) 100 01/13/20 14:30 97 17 121/69 (86) 100 01/13/20 14:00 92 16 126/64 (84) 100 01/13/20 13:30 91 18 113/60 (77) 100 01/13/20 13:10 100 01/13/20 13:10 Venturi Mask 10.0 40 01/13/20 13:10 Venturi Mask 10.0 01/13/20 13:10 10.0 40 01/13/20 13:10 100 Cool Aerosol 10.0 40 01/13/20 13:00 86 19 102/51 (68) 100 01/13/20 12:45 86 18 101/52 (68) 100 01/13/20 12:30 90 17 109/56 (73) 100 01/13/20 12:15 103 21 115/63 (80) 100 01/13/20 12:00 Mechanical Ventilator 01/13/20 12:00 98.5 87 19 86/44 (58) 100 01/13/20 11:57 88 01/13/20 11:30 94 18 99/52 (68) 100 01/13/20 11:01 116 27 30 01/13/20 11:00 116 25 122/61 (81) 100 01/13/20 11:00 30 01/13/20 10:45 118 24 139/75 (96) 92 01/13/20 10:30 118 28 149/60 (89) 84 01/13/20 10:15 112 20 141/74 (96) 95 01/13/20 10:00 98 21 144/66 (92) 97 01/13/20 09:45 91 16 138/65 (89) 98 01/13/20 09:30 89 16 88/47 (61) 99 01/13/20 09:05 93 20 30 01/13/20 09:00 88 16 91/47 (62) 100 01/13/20 08:30 102 20 118/59 (78) 98 01/13/20 08:00 98.3 96 19 110/63 (79) 100 01/13/20 08:00 30 01/13/20 08:00 Mechanical Ventilator 01/13/20 07:58 94 01/13/20 07:30 88 15 103/66 (78) 99 01/13/20 07:00 88 16 102/52 (69) 99 01/13/20 06:40 91 24 30 01/13/20 06:30 98 18 110/58 (75) 99 01/13/20 06:21 116/66 01/13/20 06:00 88 16 116/66 (83) 99 01/13/20 05:30 90 14 99/55 (70) 100 01/13/20 05:15 91 19 30 01/13/20 05:00 99 17 126/56 (79) 98 01/13/20 04:30 90 16 117/54 (75) 100 01/13/20 04:00 Mechanical Ventilator 01/13/20 04:00 98.4 85 16 103/52 (69) 99 01/13/20 04:00 30 01/13/20 04:00 89 01/13/20 03:45 90 18 94/52 (66) 99 01/13/20 03:30 90 19 30 01/13/20 03:30 91 18 102/52 (69) 99 01/13/20 03:00 89 17 93/47 (62) 100 01/13/20 02:30 93 16 118/72 (87) 99 01/13/20 02:00 89 21 102/56 (71) 100 01/13/20 01:45 92 19 92/51 (65) 99 01/13/20 01:30 93 17 92/48 (63) 99 01/13/20 01:21 115 24 30 01/13/20 01:15 97 17 126/61 (82) 99 01/13/20 01:00 102 18 76/47 (57) 98 01/13/20 00:30 110 21 90/58 (69) 96 01/13/20 00:00 Mechanical Ventilator 01/13/20 00:00 110 01/13/20 00:00 98.5 121 28 116/75 (89) 96 01/13/20 00:00 30 01/12/20 23:30 111 23 126/67 (86) 96 01/12/20 23:15 112 23 30 01/12/20 23:00 98 16 119/60 (79) 99 01/12/20 22:45 94 18 92/50 (64) 100 01/12/20 22:30 96 17 116/56 (76) 100 01/12/20 22:15 94 19 106/62 (77) 100 01/12/20 22:00 97 17 94/52 (66) 100 01/12/20 21:48 87 22 30 01/12/20 21:45 95 18 91/51 (64) 100 01/12/20 21:35 94 17 122/65 (84) 100 01/12/20 21:30 96 19 79/45 (56) 100 01/12/20 21:00 94 20 101/57 (72) 100 01/12/20 20:00 98.8 99 19 95/51 (66) 100 01/12/20 20:00 30 01/12/20 20:00 Mechanical Ventilator 01/12/20 20:00 100 01/12/20 19:54 106 21 100 Mechanical Ventilator 30 01/12/20 19:52 101 20 30 01/12/20 19:00 108 21 89/54 (66) 98 01/12/20 18:30 114 23 107/67 (80) 96 01/12/20 18:15 117 20 107/95 (99) 99 01/12/20 18:00 116 23 111/60 (77) 99 Intake and Output 01/12/20 01/13/20 19:00 07:00 Intake Total 796.25 ml 961.00 ml Output Total 255 ml 440 ml Balance 541.25 ml 521.00 ml IV Total 796.25 ml 961.00 ml Output Urine Total 255 ml 410 ml Stool Total 30 ml # Bowel Movements 3 Laboratory Tests 01/12/20 20:32: POC Whole Blood Glucose [Pending] 01/13/20 03:55: White Blood Count 4.8#, Red Blood Count 2.94L, Hemoglobin 8.3#L, Hematocrit 25.4#L, Mean Corpuscular Volume 86, Mean Corpuscular Hemoglobin 28.3, Mean Corpuscular Hemoglobin Concent 32.8, Red Cell Distribution Width 20.5H, Platelet Count 51L, Mean Platelet Volume 8.7, Neutrophils (%) (Auto) , Lymphocytes (%) (Auto) , Monocytes (%) (Auto) , Eosinophils (%) (Auto) , Basophils (%) (Auto) , Differential Total Cells Counted 100, Neutrophils % (Manual) 61, Lymphocytes % (Manual) 21, Monocytes % (Manual) 5, Eosinophils % (Manual) 0, Basophils % (Manual) 0, Metamyelocytes % 1H, Band Neutrophils 12H, Nucleated Red Blood Cells 7, Platelet Estimate DecreasedL, Platelet Morphology Normal, Polychromasia 1+, Hypochromasia 1+, Anisocytosis 2+, Sodium Level 143, Potassium Level 2.9L, Chloride Level 105, Carbon Dioxide Level 25, Anion Gap 13, Blood Urea Nitrogen 42H, Creatinine 2.8H, Estimat Glomerular Filtration Rate 27.3, Glucose Level 110H, Uric Acid 9.2H, Calcium Level 6.4L, Phosphorus Level 3.2, Magnesium Level 1.6L, Total Bilirubin 0.7, Aspartate Amino Transf (AST/SGOT) 256H, Alanine Aminotransferase (ALT/SGPT) 29, Alkaline Phosphatase 121H, C-Reactive Protein, Quantitative 39.2H, Total Protein 4.7L, Albumin 2.0L, Globulin 2.7, Albumin/Globulin Ratio 0.7L 01/13/20 06:00: POC Whole Blood Glucose 111H 01/13/20 07:37: Arterial Blood pH 7.552*H, Arterial Blood Partial Pressure CO2 26.8L, Arterial Blood Partial Pressure O2 80.8, Arterial Blood HCO3 23.0, Arterial Blood Oxygen Saturation 96.0, Arterial Blood Base Excess 1.2, Asael Test Positive 01/13/20 11:38: POC Whole Blood Glucose [Pending] 01/13/20 12:09: Arterial Blood pH 7.563*H, Arterial Blood Partial Pressure CO2 24.1*L, Arterial Blood Partial Pressure O2 74.0L, Arterial Blood HCO3 21.2L, Arterial Blood Oxygen Saturation 95.2, Arterial Blood Base Excess -0.3, Asael Test Positive 01/13/20 16:48: POC Whole Blood Glucose [Pending] Height (Feet): 6 Height (Inches): 0.00 Weight (Pounds): 150 Objective Intubated, restrained (extubated after my visit) NCAT supple CTA RR abd soft NT ND no edema more responsive Assessment/Plan Status: deteriorating Assessment/Plan: Assessment - sudden drop in H&H - no melena, but dark NGT aspirate, stools brown - respiratory failure - azotemia - guarded Recommendations - IVF - transfuse - PPI - follow CBC - will consider EGD Ameya Zaragoza MD Jan 13, 2020 17:48
--- NOTE | 2020-01-13 19:13 | Surgery Progress Note ---
Surgery Progress Note Subjective Procedure Performed Right femoral temporary hemodialysis catheter insertion Additional Comments extubated no n/v on levo 5mcg weaning labs noted Objective Last 24 Hour Vital Signs Date Time Temp Pulse Resp B/P (MAP) Pulse Ox O2 Delivery O2 Flow Rate FiO2 01/13/20 18:30 81 14 113/59 (77) 100 01/13/20 18:00 90 17 123/62 (82) 100 01/13/20 17:30 89 13 99/53 (68) 100 01/13/20 17:00 Venturi Mask 10.0 01/13/20 17:00 89 16 99/58 (72) 100 01/13/20 16:30 98.2 100 21 126/62 (83) 100 01/13/20 16:00 Venturi Mask 10.0 01/13/20 16:00 97 19 119/64 (82) 100 01/13/20 15:34 98 01/13/20 15:30 98 18 120/69 (86) 100 01/13/20 15:00 92 19 120/64 (82) 100 01/13/20 14:30 97 17 121/69 (86) 100 01/13/20 14:00 92 16 126/64 (84) 100 01/13/20 13:30 91 18 113/60 (77) 100 01/13/20 13:10 100 01/13/20 13:10 Venturi Mask 10.0 40 01/13/20 13:10 Venturi Mask 10.0 01/13/20 13:10 10.0 40 01/13/20 13:10 100 Cool Aerosol 10.0 40 01/13/20 13:00 86 19 102/51 (68) 100 01/13/20 12:45 86 18 101/52 (68) 100 01/13/20 12:30 90 17 109/56 (73) 100 01/13/20 12:15 103 21 115/63 (80) 100 01/13/20 12:00 Mechanical Ventilator 01/13/20 12:00 98.5 87 19 86/44 (58) 100 01/13/20 11:57 88 01/13/20 11:30 94 18 99/52 (68) 100 01/13/20 11:01 116 27 30 01/13/20 11:00 116 25 122/61 (81) 100 01/13/20 11:00 30 01/13/20 10:45 118 24 139/75 (96) 92 01/13/20 10:30 118 28 149/60 (89) 84 01/13/20 10:15 112 20 141/74 (96) 95 01/13/20 10:00 98 21 144/66 (92) 97 01/13/20 09:45 91 16 138/65 (89) 98 01/13/20 09:30 89 16 88/47 (61) 99 01/13/20 09:05 93 20 30 01/13/20 09:00 88 16 91/47 (62) 100 01/13/20 08:30 102 20 118/59 (78) 98 01/13/20 08:00 98.3 96 19 110/63 (79) 100 01/13/20 08:00 30 01/13/20 08:00 Mechanical Ventilator 01/13/20 07:58 94 01/13/20 07:30 88 15 103/66 (78) 99 01/13/20 07:00 88 16 102/52 (69) 99 01/13/20 06:40 91 24 30 01/13/20 06:30 98 18 110/58 (75) 99 01/13/20 06:21 116/66 01/13/20 06:00 88 16 116/66 (83) 99 01/13/20 05:30 90 14 99/55 (70) 100 01/13/20 05:15 91 19 30 01/13/20 05:00 99 17 126/56 (79) 98 01/13/20 04:30 90 16 117/54 (75) 100 01/13/20 04:00 Mechanical Ventilator 01/13/20 04:00 98.4 85 16 103/52 (69) 99 01/13/20 04:00 30 01/13/20 04:00 89 01/13/20 03:45 90 18 94/52 (66) 99 01/13/20 03:30 90 19 30 01/13/20 03:30 91 18 102/52 (69) 99 01/13/20 03:00 89 17 93/47 (62) 100 01/13/20 02:30 93 16 118/72 (87) 99 01/13/20 02:00 89 21 102/56 (71) 100 01/13/20 01:45 92 19 92/51 (65) 99 01/13/20 01:30 93 17 92/48 (63) 99 01/13/20 01:21 115 24 30 01/13/20 01:15 97 17 126/61 (82) 99 01/13/20 01:00 102 18 76/47 (57) 98 01/13/20 00:30 110 21 90/58 (69) 96 01/13/20 00:00 Mechanical Ventilator 01/13/20 00:00 110 01/13/20 00:00 98.5 121 28 116/75 (89) 96 01/13/20 00:00 30 01/12/20 23:30 111 23 126/67 (86) 96 01/12/20 23:15 112 23 30 01/12/20 23:00 98 16 119/60 (79) 99 01/12/20 22:45 94 18 92/50 (64) 100 01/12/20 22:30 96 17 116/56 (76) 100 01/12/20 22:15 94 19 106/62 (77) 100 01/12/20 22:00 97 17 94/52 (66) 100 01/12/20 21:48 87 22 30 01/12/20 21:45 95 18 91/51 (64) 100 01/12/20 21:35 94 17 122/65 (84) 100 01/12/20 21:30 96 19 79/45 (56) 100 01/12/20 21:00 94 20 101/57 (72) 100 01/12/20 20:00 98.8 99 19 95/51 (66) 100 01/12/20 20:00 30 01/12/20 20:00 Mechanical Ventilator 01/12/20 20:00 100 01/12/20 19:54 106 21 100 Mechanical Ventilator 30 01/12/20 19:52 101 20 30 I&O Intake and Output 01/12/20 01/13/20 19:00 07:00 Intake Total 796.25 ml 961.00 ml Output Total 255 ml 440 ml Balance 541.25 ml 521.00 ml IV Total 796.25 ml 961.00 ml Output Urine Total 255 ml 410 ml Stool Total 30 ml # Bowel Movements 3 Dressing: saturated Cardiovascular: RSR Respiratory: decreased breath sounds Abdomen: non-tender, present bowel sounds Extremities: no edema, no tenderness, no cyanosis Laboratory Tests Test 01/12/20 20:32 01/13/20 03:55 01/13/20 06:00 01/13/20 07:37 POC Whole Blood Glucose Pending 111 MG/DL (74-106) H White Blood Count 4.8 K/UL (4.8-10.8) # Red Blood Count 2.94 M/UL (4.70-6.10) L Hemoglobin 8.3 G/DL (14.2-18.0) #L Hematocrit 25.4 % (42.0-52.0) #L Mean Corpuscular Volume 86 FL (80-99) Mean Corpuscular Hemoglobin 28.3 PG (27.0-31.0) Mean Corpuscular Hemoglobin Concent 32.8 G/DL (32.0-36.0) Red Cell Distribution Width 20.5 % (11.6-14.8) H Platelet Count 51 K/UL (150-450) L Mean Platelet Volume 8.7 FL (6.5-10.1) Neutrophils (%) (Auto) % (45.0-75.0) Lymphocytes (%) (Auto) % (20.0-45.0) Monocytes (%) (Auto) % (1.0-10.0) Eosinophils (%) (Auto) % (0.0-3.0) Basophils (%) (Auto) % (0.0-2.0) Differential Total Cells Counted 100 Neutrophils % (Manual) 61 % (45-75) Lymphocytes % (Manual) 21 % (20-45) Monocytes % (Manual) 5 % (1-10) Eosinophils % (Manual) 0 % (0-3) Basophils % (Manual) 0 % (0-2) Metamyelocytes % 1 % (0-0) H Band Neutrophils 12 % (0-8) H Nucleated Red Blood Cells 7 /100 WBC Platelet Estimate Decreased L Platelet Morphology Normal Polychromasia 1+ Hypochromasia 1+ Anisocytosis 2+ Sodium Level 143 MMOL/L (136-145) Potassium Level 2.9 MMOL/L (3.5-5.1) L Chloride Level 105 MMOL/L (98-107) Carbon Dioxide Level 25 MMOL/L (21-32) Anion Gap 13 mmol/L (5-15) Blood Urea Nitrogen 42 mg/dL (7-18) H Creatinine 2.8 MG/DL (0.55-1.30) H Estimat Glomerular Filtration Rate 27.3 mL/min (>60) Glucose Level 110 MG/DL (74-106) H Uric Acid 9.2 MG/DL (2.6-7.2) H Calcium Level 6.4 MG/DL (8.5-10.1) L Phosphorus Level 3.2 MG/DL (2.5-4.9) Magnesium Level 1.6 MG/DL (1.8-2.4) L Total Bilirubin 0.7 MG/DL (0.2-1.0) Aspartate Amino Transf (AST/SGOT) 256 U/L (15-37) H Alanine Aminotransferase (ALT/SGPT) 29 U/L (12-78) Alkaline Phosphatase 121 U/L (46-116) H C-Reactive Protein, Quantitative 39.2 mg/dL (0.00-0.90) H Total Protein 4.7 G/DL (6.4-8.2) L Albumin 2.0 G/DL (3.4-5.0) L Globulin 2.7 g/dL Albumin/Globulin Ratio 0.7 (1.0-2.7) L Arterial Blood pH 7.552 (7.350-7.450) Arterial Blood Partial Pressure CO2 26.8 mmHg (35.0-45.0) L Arterial Blood Partial Pressure O2 80.8 mmHg (75.0-100.0) Arterial Blood HCO3 23.0 mmol/L (22.0-26.0) Arterial Blood Oxygen Saturation 96.0 % (95-100) Arterial Blood Base Excess 1.2 (-2-2) Asael Test Positive Test 01/13/20 11:38 01/13/20 12:09 01/13/20 16:48 POC Whole Blood Glucose Pending Pending Arterial Blood pH 7.563 (7.350-7.450) Arterial Blood Partial Pressure CO2 24.1 mmHg (35.0-45.0) *L Arterial Blood Partial Pressure O2 74.0 mmHg (75.0-100.0) L Arterial Blood HCO3 21.2 mmol/L (22.0-26.0) L Arterial Blood Oxygen Saturation 95.2 % (95-100) Arterial Blood Base Excess -0.3 (-2-2) Asael Test Positive Plan Problems: (1) Altered level of consciousness (2) Hypovolemic shock Assessment & Plan: resuscitation extubated monitor respiratory keep hob elevated supplemental O2 Gallbladder demonstrates sludge. No stones, wall thickening, nor pericholecystic fluid. Patient unable to report Wilson's sign Common bile duct measures 3 mm in diameter. No intrahepatic biliary ductal dilatation. Liver demonstrates coarsened echogenicity and surface nodularity. It demonstrates multiple cysts. Portal vein and hepatic veins are patent. The pancreas demonstrates 3 hypoechoic lesions in the head and body, measuring approximately 5 mm in diameter each. Spleen is unremarkable, poorly visualized. Left kidney measures 11.4 cm in length. Right kidney measures 11.3 cm length. Both kidneys demonstrate normal echogenicity. There is severe right and moderate left hydronephrosis. Echogenic foci are seen in the left renal sinus and collecting system. Bladder is empty, contains a Mathew catheter. Non-aneurysmal abdominal aorta . There are bilateral pleural effusions Impression: Bilateral right greater than left hydronephrosis, increased since prior study of 03/20/2019. Etiology not demonstrated Empty bladder with a Mathew catheter 3 hypoechoic lesions within the pancreatic head and body, each measuring about 5 mm. Appearance nonspecific. Recommend further evaluation with pancreas protocol MRI Bilateral pleural effusions Echogenic liver, consistent with hepatocellular disease. Surface likely nodularity raises concern for cirrhosis Gallbladder sludge. Negative for dilated bile ducts Probable nonobstructive left intrarenal calculi Multiple hepatic cysts (3) Lactic acid acidosis (4) Hypernatremia (5) Paraplegia (6) Anemia Assessment & Plan: no active bleeding noted no large hematoma dressings okay likely related to heme will monitor transfuse prbc with HD trend labs thank you (7) Diabetes (8) Weak (9) HTN (hypertension) (10) ARF (acute renal failure) (11) Hypercalcemia (12) Hyperuricemia (13) Dehydration (14) UTI (urinary tract infection) (15) Failure to thrive in adult Assessment & Plan: DAILY ESTIMATED NEEDS: Needs based on underweight, suspected wt loss, HD, CRITICAL CARE/ 57.6kg 25-33 kcals/kg 2212-3334 total kcals 1.2-2 g protein/kg 69-115 g total protein 25-30 mL/kg 1753-1661 total fluid mLs NUTRITION DIAGNOSIS: *Increased kcal and pro needs r/t underweight status, suspected significant wt loss as evidenced by pt @ 71% IBW w/ BMI 17.2, underweight per guidelines, w/ suspected signficant wt loss of 30lbs/19% in 10 months. * Swallowing difficulty R/T dysphagia, respiratory status as evidenced by s/p NGT insertion (01/08), now NPO, s/p code blue (01/10), orally intubated. CURRENT TF:NPO ENTERAL NUTRITION RECOMMENDATIONS: WHEN HEMODYNAMICALLY STABLE: Nepro @ 40ml/hr x 24 hrs to provide 960ml, 1728kcal, 77g prot, 698ml free water WHEN HEMODYNAMICALLY STABLE AND MEDICALLY APPROPRIATE TO FEED: -> initiate TF @ 5ml/hr x 6hrs, advance slowly 5ml q 4-6 hrs as tolerated to goal rate -> HOB over 30 degrees/ water flush per MD WITHOUT HEMODYNAMIC STABILITY -> If medically appropriate to feed, rec trophic feeding of Nepro @ 5ml/hr x 24 hrs to maintain gut integrity Lázaro Jenkins Jan 13, 2020 19:13
[2020-01-13] MEDS: Dyna-Hex 2% Top Sol 2oz TOPIC SCH (20:09)
[2020-01-13] MEDS: Sennosides 8.6mg tab NG SCH (20:35)
[2020-01-13] MEDS: Calcium Gluconate 1gm/50ml 50 ML IVPB SCH (20:35)
[2020-01-13] MEDS: Miralax 17gm pkt NG SCH (21:00)
[2020-01-14] VITALS (42 sets, daily range): BP systolic 83–149; BP diastolic 49–76
[2020-01-14] MEDS: Piperacillin/Tazobactam 2.25 GM in D5W 55 ML IV SCH ×2 (01:53→10:51)
[2020-01-14] MEDS: D5 1/2NS 1,000 ML IV SCH ×2 (03:23→14:13)
[2020-01-14] MEDS: Aluminum Hydroxide Gel Susp 15ml NG SCH ×3 (06:09→21:50)
[2020-01-14 07:08] LABS: HEMATOCRIT 28.9 % (42.0-52.0); HEMOGLOBIN 9.3 G/DL (14.2-18.0); MEAN CORPUSCULAR VOLUME 88 FL (80-99); PLATELET COUNT 49 K/UL (150-450); RED BLOOD COUNT 3.28 M/UL (4.70-6.10); RED CELL DISTRIBUTION WIDTH 20.8 % (11.6-14.8); WHITE BLOOD COUNT 6.9 K/UL (4.8-10.8)
--- NOTE | 2020-01-14 07:18 | Hematology/Onc Progress Note ---
Assessment/Plan Assessment/Plan Assessment/Recs # Anemia of chronic disease due to underlying chronic medical issues, multifactorial v Gi bleed --> Anemia workup has been ordered, rule out gi bleed --> No evidence of hemolysis is noted, peripheral smear has been reviewed. --> Hgb goal >7. Transfuse prn. --> Epogen or iron at this time is not particularly indicated --> Medications have been reviewed --> low threshold for gi evaluation in case has occult + --> hgb 10-->9.7-->9.2->10-->8.6-->7.7-->5-->8.3->9.3 --> 01/12 flow cytometry ordered bc of nucleated cells on smear # Thrombocytopenia ongoing, worsened since adm --> plt 150-->98-->82-->51->49 --> hep and hiv panel--NEG --> us abd-->shows 3 small lesions, requires further eval # Multiple lesions noted in pancreas --> MRI abd ordered # Protein caloric malnutrition --> daily calorie counts --> daily weights --> mirtazapine started # Acute renal failure --> continue on ivfs --> as per renal # Hypokalemia --> replete with K # Severe dehydration --> ivfs ongoing # Hypernatremia indicative of severe water deficit # Severe hyperuricemia, partly due to dehydration and renal failure # Acute metabolic and toxic encephalopathy # Mild, malnutrition # Psych issues per psych # Lactic acid, possible sepsis # Dvt ppx heparin sq->Scds The timing of this note does not necessarily reflect the time of the patient was seen. Greatly appreciate consultation. Subjective Constitutional: Denies: no symptoms, chills, fever, malaise, weakness, other HEENT: Denies: no symptoms, eye pain, blurred vision, tearing, double vision, ear pain, ear discharge, nose pain, nose congestion, throat pain, throat swelling, mouth pain, mouth swelling, other Cardiovascular: Denies: no symptoms, chest pain, edema, irregular heart rate, lightheadedness, palpitations, syncope, other Respiratory: Denies: no symptoms, cough, shortness of breath, SOB with excertion, SOB at rest, sputum, wheezing, other Gastrointestinal/Abdominal: Denies: no symptoms, abdomen distended, abdominal pain, black stools, tarry stools, blood in stool, constipated, diarrhea, difficulty swallowing, nausea, poor appetite, poor fluid intake, rectal bleeding, vomiting, other Neurologic/Psychiatric: Denies: no symptoms, anxiety, depressed, emotional problems, headache, numbness, paresthesia, pre-existing deficit, seizure, tingling, tremors, weakness, other Allergies: Coded Allergies: No Known Allergies (Unverified , 03/18/19) Subjective 01/07 meds noted, no bleeding, hgb 10, no hemolysis, hgb 10.1 01/08 labs reviewed, dw rn, no major events, no bleeding, hgb lower 01/09 labs noted, no bleeding, vi rn, no major changes, plt lower 01/10 did have epistaxis overnight, no bleeding, night sweats, epistaxis better 01/12 icu, remains on vent, levo, no bleeding, meds noted 01/13 remains in icu, no bleeding, on levo, no major changes Objective Objective Current Medications Medications (Trade) Dose Ordered Sig/Jesse Route PRN Reason Start Time Stop Time Status Last Admin Dose Admin Acetaminophen (Tylenol) 650 mg Q4H PRN ORAL PRNH/TEMP 01/05/20 20:15 02/04/20 20:14 01/12/20 03:10 Albuterol/ Ipratropium (Albuterol/ Ipratropium) 3 ml Q4H PRN HHN Bronchospasm 01/10/20 18:56 01/15/20 18:55 Allopurinol (allopurinoL) 300 mg BID NG 01/09/20 18:00 02/06/20 14:14 01/13/20 17:15 Aluminum Hydroxide (Amphojel) 1,920 mg Q8HR NG 01/13/20 14:00 02/10/20 09:59 01/14/20 06:09 Bisacodyl (Dulcolax) 10 mg DAILY PRN RECTAL Constipation 01/05/20 20:15 04/04/20 20:14 Calcium Gluconate/ Sodium Chloride 50 ml @ 50 mls/hr Q12HR IVPB 01/13/20 21:00 04/12/20 20:59 01/13/20 20:35 Chlorhexidine Gluconate (Navya-Hex 2%) 1 applic DAILY@2000 TOPIC 01/11/20 20:00 04/10/20 19:59 01/13/20 20:09 Dextrose (Dextrose 50%) 25 ml Q30M PRN IV Hypoglycemia 01/05/20 20:15 04/04/20 20:14 Dextrose (Dextrose 50%) 50 ml Q30M PRN IV Hypoglycemia 01/05/20 20:15 04/04/20 20:14 Dextrose/Sodium Chloride 1,000 ml @ 100 mls/hr Q10H IV 01/12/20 12:00 02/11/20 11:59 01/14/20 03:23 Docusate Sodium (Colace) 200 mg DAILY ORAL 01/06/20 09:00 02/05/20 08:59 01/11/20 09:24 Gadobutrol (Gadavist) 7.5 mmol NOW PRN IV Radiology Procedure 01/11/20 09:15 01/15/20 09:14 Linaclotide (Linzess) 290 mcg BEFORE BREAKFAST ORAL 01/10/20 06:30 04/09/20 06:29 01/11/20 05:33 Norepinephrine Bitartrate 250 ml @ 0 mls/hr Q24H IV 01/11/20 12:00 01/14/20 11:29 01/13/20 21:17 Ondansetron HCl (Zofran) 4 mg Q6H PRN IVP Nausea & Vomiting 01/10/20 06:30 02/09/20 06:29 Oxymetazoline HCl (Afrin Nasal [place]) 2 spray Q12HR PRN NASAL dry nasal passage 01/11/20 08:00 04/10/20 07:59 Pantoprazole (Protonix) 40 mg EVERY 12 HOURS IVP 01/05/20 21:00 02/04/20 20:59 01/13/20 20:35 Piperacillin Sod/ Tazobactam Sod 2.25 gm/Dextrose 55 ml @ 110 mls/hr Q8H IV 01/11/20 18:00 01/18/20 17:59 01/14/20 01:53 Polyethylene Glycol (Miralax) 17 gm BEDTIME NG 01/11/20 21:00 02/08/20 20:59 Sennosides (Senokot) 8.6 mg QHS NG 01/11/20 21:00 02/04/20 20:59 01/13/20 20:35 Vancomycin HCl (Vanco pharmacy to dose) 1 ea DAILY PRN MISC Per rx protocol 01/12/20 14:45 02/11/20 14:44 Last 24 Hour Vital Signs Date Time Temp Pulse Resp B/P (MAP) Pulse Ox O2 Delivery O2 Flow Rate FiO2 01/14/20 06:00 81 14 119/63 (81) 100 01/14/20 05:30 80 16 116/62 (80) 100 01/14/20 05:00 90 19 119/60 (79) 99 01/14/20 04:30 85 18 112/55 (74) 100 01/14/20 04:00 Venturi Mask 10.0 01/14/20 04:00 92 01/14/20 04:00 97.9 94 19 123/70 (87) 100 01/14/20 04:00 10.0 40 01/14/20 03:30 94 17 127/69 (88) 99 01/14/20 03:00 93 16 119/59 (79) 99 01/14/20 02:30 87 14 109/55 (73) 100 01/14/20 02:00 87 15 118/64 (82) 100 01/14/20 01:30 88 17 113/53 (73) 100 01/14/20 01:00 85 17 116/60 (78) 100 01/14/20 00:35 100 Cool Aerosol 10.0 40 01/14/20 00:30 89 16 118/63 (81) 100 01/14/20 00:00 Venturi Mask 10.0 01/14/20 00:00 10.0 40 01/14/20 00:00 92 01/14/20 00:00 97.8 89 16 112/59 (76) 100 01/13/20 23:30 90 17 122/59 (80) 100 01/13/20 23:00 85 16 112/61 (78) 100 01/13/20 22:30 86 15 122/57 (78) 100 01/13/20 22:00 90 17 117/60 (79) 100 01/13/20 21:30 93 20 130/61 (84) 100 01/13/20 21:17 112/61 01/13/20 21:00 82 14 112/61 (78) 100 01/13/20 20:30 93 17 125/68 (87) 100 01/13/20 20:00 94 01/13/20 20:00 97.9 90 17 125/56 (79) 100 01/13/20 20:00 Venturi Mask 10.0 01/13/20 20:00 10.0 40 01/13/20 19:30 93 17 123/61 (81) 100 01/13/20 19:05 100 Cool Aerosol 10.0 40 01/13/20 19:00 80 15 108/53 (71) 100 01/13/20 18:30 81 14 113/59 (77) 100 01/13/20 18:00 90 17 123/62 (82) 100 01/13/20 17:30 89 13 99/53 (68) 100 01/13/20 17:00 Venturi Mask 10.0 01/13/20 17:00 89 16 99/58 (72) 100 01/13/20 16:30 98.2 100 21 126/62 (83) 100 01/13/20 16:00 Venturi Mask 10.0 01/13/20 16:00 97 19 119/64 (82) 100 01/13/20 15:34 98 01/13/20 15:30 98 18 120/69 (86) 100 01/13/20 15:00 92 19 120/64 (82) 100 01/13/20 14:30 97 17 121/69 (86) 100 01/13/20 14:00 92 16 126/64 (84) 100 01/13/20 13:30 91 18 113/60 (77) 100 01/13/20 13:10 100 01/13/20 13:10 Venturi Mask 10.0 40 01/13/20 13:10 Venturi Mask 10.0 01/13/20 13:10 10.0 40 01/13/20 13:10 100 Cool Aerosol 10.0 40 01/13/20 13:00 86 19 102/51 (68) 100 01/13/20 12:45 86 18 101/52 (68) 100 01/13/20 12:30 90 17 109/56 (73) 100 01/13/20 12:15 103 21 115/63 (80) 100 01/13/20 12:00 Mechanical Ventilator 01/13/20 12:00 98.5 87 19 86/44 (58) 100 01/13/20 11:57 88 01/13/20 11:30 94 18 99/52 (68) 100 01/13/20 11:01 116 27 30 01/13/20 11:00 116 25 122/61 (81) 100 01/13/20 11:00 30 01/13/20 10:45 118 24 139/75 (96) 92 01/13/20 10:30 118 28 149/60 (89) 84 01/13/20 10:15 112 20 141/74 (96) 95 01/13/20 10:00 98 21 144/66 (92) 97 01/13/20 09:45 91 16 138/65 (89) 98 01/13/20 09:30 89 16 88/47 (61) 99 01/13/20 09:05 93 20 30 01/13/20 09:00 88 16 91/47 (62) 100 01/13/20 08:30 102 20 118/59 (78) 98 01/13/20 08:00 98.3 96 19 110/63 (79) 100 01/13/20 08:00 30 01/13/20 08:00 Mechanical Ventilator 01/13/20 07:58 94 01/13/20 07:30 88 15 103/66 (78) 99 01/13/20 07:00 88 16 102/52 (69) 99 01/13/20 06:40 91 24 30 01/13/20 06:30 98 18 110/58 (75) 99 01/13/20 06:21 116/66 01/13/20 06:00 88 16 116/66 (83) 99 01/13/20 05:30 90 14 99/55 (70) 100 01/13/20 05:15 91 19 30 01/13/20 05:00 99 17 126/56 (79) 98 01/13/20 04:30 90 16 117/54 (75) 100 01/13/20 04:00 Mechanical Ventilator 01/13/20 04:00 98.4 85 16 103/52 (69) 99 01/13/20 04:00 30 01/13/20 04:00 89 01/13/20 03:45 90 18 94/52 (66) 99 01/13/20 03:30 90 19 30 01/13/20 03:30 91 18 102/52 (69) 99 01/13/20 03:00 89 17 93/47 (62) 100 01/13/20 02:30 93 16 118/72 (87) 99 01/13/20 02:00 89 21 102/56 (71) 100 01/13/20 01:45 92 19 92/51 (65) 99 01/13/20 01:30 93 17 92/48 (63) 99 01/13/20 01:21 115 24 30 01/13/20 01:15 97 17 126/61 (82) 99 01/13/20 01:00 102 18 76/47 (57) 98 01/13/20 00:30 110 21 90/58 (69) 96 01/13/20 00:00 Mechanical Ventilator 01/13/20 00:00 110 01/13/20 00:00 98.5 121 28 116/75 (89) 96 01/13/20 00:00 30 01/12/20 23:30 111 23 126/67 (86) 96 01/12/20 23:15 112 23 30 01/12/20 23:00 98 16 119/60 (79) 99 01/12/20 22:45 94 18 92/50 (64) 100 01/12/20 22:30 96 17 116/56 (76) 100 01/12/20 22:15 94 19 106/62 (77) 100 01/12/20 22:00 97 17 94/52 (66) 100 01/12/20 21:48 87 22 30 01/12/20 21:45 95 18 91/51 (64) 100 01/12/20 21:35 94 17 122/65 (84) 100 01/12/20 21:30 96 19 79/45 (56) 100 01/12/20 21:00 94 20 101/57 (72) 100 01/12/20 20:00 98.8 99 19 95/51 (66) 100 01/12/20 20:00 30 01/12/20 20:00 Mechanical Ventilator 01/12/20 20:00 100 01/12/20 19:54 106 21 100 Mechanical Ventilator 30 01/12/20 19:52 101 20 30 01/12/20 19:00 108 21 89/54 (66) 98 01/12/20 18:30 114 23 107/67 (80) 96 01/12/20 18:15 117 20 107/95 (99) 99 01/12/20 18:00 116 23 111/60 (77) 99 01/12/20 17:45 114 22 104/61 (75) 99 01/12/20 17:30 108 19 106/60 (75) 99 01/12/20 17:11 98 19 30 01/12/20 17:00 99 16 114/59 (77) 100 01/12/20 16:30 99.2 99 21 99/56 (70) 100 01/12/20 16:00 97 20 106/57 (73) 100 01/12/20 16:00 30 01/12/20 16:00 Mechanical Ventilator 01/12/20 15:30 107 20 98/67 (77) 100 01/12/20 15:28 102 01/12/20 15:11 102 21 30 01/12/20 15:00 108 19 94/38 (56) 99 01/12/20 14:30 97.9 100 18 96/56 (69) 100 01/12/20 14:00 105 18 117/64 (81) 100 01/12/20 13:30 99 19 109/67 (81) 100 01/12/20 13:18 103 34 30 01/12/20 13:00 101 19 98/52 (67) 100 01/12/20 12:30 103 20 98/52 (67) 100 01/12/20 12:00 30 01/12/20 12:00 101 20 106/51 (69) 100 01/12/20 12:00 Mechanical Ventilator 01/12/20 11:30 97.3 104 19 99/52 (68) 100 01/12/20 11:22 104 01/12/20 11:21 110 26 30 01/12/20 11:00 97.9 105 19 98/51 (67) 100 01/12/20 10:23 103/52 01/12/20 10:00 105 21 103/52 (69) 100 01/12/20 09:30 105 22 95/55 (68) 100 01/12/20 09:00 114 23 103/54 (70) 100 01/12/20 08:56 108 26 100 Mechanical Ventilator 30 01/12/20 08:55 108 22 30 01/12/20 08:30 110 23 110/58 (75) 100 01/12/20 08:00 98.0 111 22 114/57 (76) 99 01/12/20 08:00 Mechanical Ventilator 01/12/20 08:00 30 01/12/20 07:42 173 Intake and Output 01/13/20 01/14/20 19:00 07:00 Intake Total 1768.125 ml 1211.31 ml Output Total 650 ml 551 ml Balance 1118.125 ml 660.31 ml IV Total 1768.125 ml 1211.31 ml Output Urine Total 650 ml 550 ml Stool Total 1 ml # Bowel Movements 1 1 Labs Test 01/11/20 07:50 01/11/20 11:35 01/11/20 16:00 01/11/20 18:00 Arterial Blood pH 7.172 (7.350-7.450) 7.358 (7.350-7.450) Arterial Blood Partial Pressure CO2 41.6 mmHg (35.0-45.0) 27.4 mmHg (35.0-45.0) Arterial Blood Partial Pressure O2 107.6 mmHg (75.0-100.0) 299.1 mmHg (75.0-100.0) Arterial Blood HCO3 14.9 mmol/L (22.0-26.0) 15.1 mmol/L (22.0-26.0) Arterial Blood Oxygen Saturation 95.7 % (95-100) 98.9 % (95-100) Arterial Blood Base Excess -12.5 (-2-2) -9.4 (-2-2) Asael Test Positive Positive Hepatitis A IgM Antibody Negative (Negative) Hepatitis B Surface Antigen Negative (Negative) Hepatitis B Core IgM Antibody Negative (Negative) Hepatitis C Antibody <0.1 s/co ratio HIV (1&2) Antibody Rapid Negative (NEGATIVE) Urine Color Pale yellow Urine Appearance Cloudy Urine pH 5 (4.5-8.0) Urine Specific [place] 1.015 (1.005-1.035) Urine Protein 3+ (NEGATIVE) Urine Glucose (UA) Negative (NEGATIVE) Urine Ketones Negative (NEGATIVE) Urine Blood 5+ (NEGATIVE) Urine Nitrite Negative (NEGATIVE) Urine Bilirubin Negative (NEGATIVE) Urine Urobilinogen Normal MG/DL (0.0-1.0) Urine Leukocyte Esterase 1+ (NEGATIVE) Urine RBC 60-80 /HPF (0 - 0) Urine WBC 2-4 /HPF (0 - 0) Urine Squamous Epithelial Cells Occasional /LPF Urine Amorphous Sediment Many /LPF (NONE) Urine Bacteria Moderate /HPF (NONE) Test 01/12/20 03:46 01/12/20 05:30 01/12/20 05:31 01/12/20 08:00 White Blood Count 2.3 K/UL (4.8-10.8) 2.7 K/UL (4.8-10.8) Red Blood Count 1.97 M/UL (4.70-6.10) 1.94 M/UL (4.70-6.10) Hemoglobin 5.8 G/DL (14.2-18.0) 5.8 G/DL (14.2-18.0) Hematocrit 17.9 % (42.0-52.0) 17.4 % (42.0-52.0) Mean Corpuscular Volume 91 FL (80-99) 90 FL (80-99) Mean Corpuscular Hemoglobin 29.6 PG (27.0-31.0) 29.9 PG (27.0-31.0) Mean Corpuscular Hemoglobin Concent 32.6 G/DL (32.0-36.0) 33.3 G/DL (32.0-36.0) Red Cell Distribution Width 19.0 % (11.6-14.8) 19.3 % (11.6-14.8) Platelet Count 58 K/UL (150-450) 55 K/UL (150-450) Mean Platelet Volume 7.9 FL (6.5-10.1) 8.3 FL (6.5-10.1) Neutrophils (%) (Auto) % (45.0-75.0) % (45.0-75.0) Lymphocytes (%) (Auto) % (20.0-45.0) % (20.0-45.0) Monocytes (%) (Auto) % (1.0-10.0) % (1.0-10.0) Eosinophils (%) (Auto) % (0.0-3.0) % (0.0-3.0) Basophils (%) (Auto) % (0.0-2.0) % (0.0-2.0) Differential Total Cells Counted 100 100 Neutrophils % (Manual) 49 % (45-75) 44 % (45-75) Lymphocytes % (Manual) 24 % (20-45) 28 % (20-45) Monocytes % (Manual) 12 % (1-10) 13 % (1-10) Eosinophils % (Manual) 2 % (0-3) 0 % (0-3) Basophils % (Manual) 0 % (0-2) 0 % (0-2) Band Neutrophils 13 % (0-8) 15 % (0-8) Nucleated Red Blood Cells 7 /100 WBC 7 /100 WBC Platelet Estimate Decreased Decreased Platelet Morphology Normal Normal Polychromasia 1+ 1+ Hypochromasia 2+ 2+ Anisocytosis 2+ 2+ Prothrombin Time 12.4 SEC (9.30-11.50) Prothromb Time International Ratio 1.1 (0.9-1.1) Fibrinogen 492 mg/dL (200-400) D-Dimer 18.05 mg/L FEU (0.00-0.49) Sodium Level 142 MMOL/L (136-145) Potassium Level 2.9 MMOL/L (3.5-5.1) Chloride Level 105 MMOL/L (98-107) Carbon Dioxide Level 27 MMOL/L (21-32) Anion Gap 10 mmol/L (5-15) Blood Urea Nitrogen 40 mg/dL (7-18) Creatinine 2.7 MG/DL (0.55-1.30) Estimat Glomerular Filtration Rate 28.4 mL/min (>60) Glucose Level 117 MG/DL (74-106) Uric Acid 8.7 MG/DL (2.6-7.2) Calcium Level 7.5 MG/DL (8.5-10.1) Phosphorus Level 3.9 MG/DL (2.5-4.9) Magnesium Level 1.8 MG/DL (1.8-2.4) Total Bilirubin 0.5 MG/DL (0.2-1.0) Direct Bilirubin 0.2 MG/DL (0.0-0.3) Gamma Glutamyl Transpeptidase 89 U/L (5-85) Aspartate Amino Transf (AST/SGOT) 533 U/L (15-37) Alanine Aminotransferase (ALT/SGPT) 63 U/L (12-78) Alkaline Phosphatase 131 U/L (46-116) Total Protein 4.8 G/DL (6.4-8.2) Albumin 2.2 G/DL (3.4-5.0) Arterial Blood pH 7.539 (7.350-7.450) Arterial Blood Partial Pressure CO2 30.3 mmHg (35.0-45.0) Arterial Blood Partial Pressure O2 77.7 mmHg (75.0-100.0) Arterial Blood HCO3 25.3 mmol/L (22.0-26.0) Arterial Blood Oxygen Saturation 95.7 % (95-100) Arterial Blood Base Excess 2.5 (-2-2) Asael Test Positive Test 01/12/20 17:34 01/12/20 20:32 01/13/20 03:55 01/13/20 06:00 POC Whole Blood Glucose 94 MG/DL (74-106) 111 MG/DL (74-106) White Blood Count 4.8 K/UL (4.8-10.8) Red Blood Count 2.94 M/UL (4.70-6.10) Hemoglobin 8.3 G/DL (14.2-18.0) Hematocrit 25.4 % (42.0-52.0) Mean Corpuscular Volume 86 FL (80-99) Mean Corpuscular Hemoglobin 28.3 PG (27.0-31.0) Mean Corpuscular Hemoglobin Concent 32.8 G/DL (32.0-36.0) Red Cell Distribution Width 20.5 % (11.6-14.8) Platelet Count 51 K/UL (150-450) Mean Platelet Volume 8.7 FL (6.5-10.1) Neutrophils (%) (Auto) % (45.0-75.0) Lymphocytes (%) (Auto) % (20.0-45.0) Monocytes (%) (Auto) % (1.0-10.0) Eosinophils (%) (Auto) % (0.0-3.0) Basophils (%) (Auto) % (0.0-2.0) Differential Total Cells Counted 100 Neutrophils % (Manual) 61 % (45-75) Lymphocytes % (Manual) 21 % (20-45) Monocytes % (Manual) 5 % (1-10) Eosinophils % (Manual) 0 % (0-3) Basophils % (Manual) 0 % (0-2) Metamyelocytes % 1 % (0-0) Band Neutrophils 12 % (0-8) Nucleated Red Blood Cells 7 /100 WBC Platelet Estimate Decreased Platelet Morphology Normal Polychromasia 1+ Hypochromasia 1+ Anisocytosis 2+ Sodium Level 143 MMOL/L (136-145) Potassium Level 2.9 MMOL/L (3.5-5.1) Chloride Level 105 MMOL/L (98-107) Carbon Dioxide Level 25 MMOL/L (21-32) Anion Gap 13 mmol/L (5-15) Blood Urea Nitrogen 42 mg/dL (7-18) Creatinine 2.8 MG/DL (0.55-1.30) Estimat Glomerular Filtration Rate 27.3 mL/min (>60) Glucose Level 110 MG/DL (74-106) Uric Acid 9.2 MG/DL (2.6-7.2) Calcium Level 6.4 MG/DL (8.5-10.1) Phosphorus Level 3.2 MG/DL (2.5-4.9) Magnesium Level 1.6 MG/DL (1.8-2.4) Total Bilirubin 0.7 MG/DL (0.2-1.0) Aspartate Amino Transf (AST/SGOT) 256 U/L (15-37) Alanine Aminotransferase (ALT/SGPT) 29 U/L (12-78) Alkaline Phosphatase 121 U/L (46-116) C-Reactive Protein, Quantitative 39.2 mg/dL (0.00-0.90) Total Protein 4.7 G/DL (6.4-8.2) Albumin 2.0 G/DL (3.4-5.0) Globulin 2.7 g/dL Albumin/Globulin Ratio 0.7 (1.0-2.7) Test 01/13/20 07:37 01/13/20 11:38 01/13/20 12:09 01/13/20 16:48 Arterial Blood pH 7.552 (7.350-7.450) 7.563 (7.350-7.450) Arterial Blood Partial Pressure CO2 26.8 mmHg (35.0-45.0) 24.1 mmHg (35.0-45.0) Arterial Blood Partial Pressure O2 80.8 mmHg (75.0-100.0) 74.0 mmHg (75.0-100.0) Arterial Blood HCO3 23.0 mmol/L (22.0-26.0) 21.2 mmol/L (22.0-26.0) Arterial Blood Oxygen Saturation 96.0 % (95-100) 95.2 % (95-100) Arterial Blood Base Excess 1.2 (-2-2) -0.3 (-2-2) Asael Test Positive Positive Test 01/13/20 20:48 01/14/20 05:11 01/14/20 05:22 POC Whole Blood Glucose 105 MG/DL (74-106) 99 MG/DL (74-106) White Blood Count 6.9 K/UL (4.8-10.8) Red Blood Count 3.28 M/UL (4.70-6.10) Hemoglobin 9.3 G/DL (14.2-18.0) Hematocrit 28.9 % (42.0-52.0) Mean Corpuscular Volume 88 FL (80-99) Mean Corpuscular Hemoglobin 28.3 PG (27.0-31.0) Mean Corpuscular Hemoglobin Concent 32.1 G/DL (32.0-36.0) Red Cell Distribution Width 20.8 % (11.6-14.8) Platelet Count 49 K/UL (150-450) Mean Platelet Volume 7.7 FL (6.5-10.1) Neutrophils (%) (Auto) % (45.0-75.0) Lymphocytes (%) (Auto) % (20.0-45.0) Monocytes (%) (Auto) % (1.0-10.0) Eosinophils (%) (Auto) % (0.0-3.0) Basophils (%) (Auto) % (0.0-2.0) Height (Feet): 6 Height (Inches): 0.00 Weight (Pounds): 150 Objective PE: Vitals: reviewed General Appearance: NAD HEENT: normocephalic, atraumatic Neck: non-tender, normal alignment Respiratory/Chest: nromal breath sounds bilaterally Cardiovascular/Chest: normal peripheral pulses, normal rate Abdomen: normal bowel sounds, soft, nontender Extremities: normal range of motion Samuel Son MD Jan 14, 2020 07:18
[2020-01-14 07:32] LABS: ALBUMIN/GLOBULIN RATIO 0.7 (1.0-2.7); BILIRUBIN,TOTAL 0.6 MG/DL (0.2-1.0); CALCIUM 6.5 MG/DL (8.5-10.1); CREATININE 2.5 MG/DL (0.55-1.30); POTASSIUM 2.9 MMOL/L (3.5-5.1)
[2020-01-14 08:07] LABS: PHOSPHORUS 2.7 MG/DL (2.5-4.9)
[2020-01-14] MEDS: Docusate 100mg cap ORAL SCH (08:34)
[2020-01-14] MEDS: Pantoprazole Inj IVP SCH ×2 (08:34→20:14)
[2020-01-14] MEDS: Calcium Gluconate 1gm/50ml 50 ML IVPB SCH ×2 (08:35→20:14)
[2020-01-14] MEDS ORDERED: Vancomycin 750mg/NS 275ml IVPB ONE ×2 (09:00)
--- NOTE | 2020-01-14 10:01 | General Progress Note ---
Subjective Constitutional: Reports: weakness Allergies: Coded Allergies: No Known Allergies (Unverified , 03/18/19) All Systems: reviewed and negative except above Subjective o2 mask in icu Objective Last 24 Hour Vital Signs Date Time Temp Pulse Resp B/P (MAP) Pulse Ox O2 Delivery O2 Flow Rate FiO2 01/14/20 09:00 79 13 115/61 (79) 100 01/14/20 08:30 87 16 127/65 (85) 97 01/14/20 08:00 10.0 40 01/14/20 08:00 97.7 85 16 125/65 (85) 100 01/14/20 08:00 93 01/14/20 07:30 100 Cool Aerosol 10.0 40 01/14/20 07:30 76 13 126/57 (80) 100 01/14/20 07:00 76 13 101/53 (69) 100 01/14/20 06:00 81 14 119/63 (81) 100 01/14/20 05:30 80 16 116/62 (80) 100 01/14/20 05:00 90 19 119/60 (79) 99 01/14/20 04:30 85 18 112/55 (74) 100 01/14/20 04:00 Venturi Mask 10.0 01/14/20 04:00 92 01/14/20 04:00 97.9 94 19 123/70 (87) 100 01/14/20 04:00 10.0 40 01/14/20 03:30 94 17 127/69 (88) 99 01/14/20 03:00 93 16 119/59 (79) 99 01/14/20 02:30 87 14 109/55 (73) 100 01/14/20 02:00 87 15 118/64 (82) 100 01/14/20 01:30 88 17 113/53 (73) 100 01/14/20 01:00 85 17 116/60 (78) 100 01/14/20 00:35 100 Cool Aerosol 10.0 40 01/14/20 00:30 89 16 118/63 (81) 100 01/14/20 00:00 Venturi Mask 10.0 01/14/20 00:00 10.0 40 01/14/20 00:00 92 01/14/20 00:00 97.8 89 16 112/59 (76) 100 01/13/20 23:30 90 17 122/59 (80) 100 01/13/20 23:00 85 16 112/61 (78) 100 01/13/20 22:30 86 15 122/57 (78) 100 01/13/20 22:00 90 17 117/60 (79) 100 01/13/20 21:30 93 20 130/61 (84) 100 01/13/20 21:17 112/61 01/13/20 21:00 82 14 112/61 (78) 100 01/13/20 20:30 93 17 125/68 (87) 100 01/13/20 20:00 94 01/13/20 20:00 97.9 90 17 125/56 (79) 100 01/13/20 20:00 Venturi Mask 10.0 01/13/20 20:00 10.0 40 01/13/20 19:30 93 17 123/61 (81) 100 01/13/20 19:05 100 Cool Aerosol 10.0 40 01/13/20 19:00 80 15 108/53 (71) 100 01/13/20 18:30 81 14 113/59 (77) 100 01/13/20 18:00 90 17 123/62 (82) 100 01/13/20 17:30 89 13 99/53 (68) 100 01/13/20 17:00 Venturi Mask 10.0 01/13/20 17:00 89 16 99/58 (72) 100 01/13/20 16:30 98.2 100 21 126/62 (83) 100 01/13/20 16:00 Venturi Mask 10.0 01/13/20 16:00 97 19 119/64 (82) 100 01/13/20 15:34 98 01/13/20 15:30 98 18 120/69 (86) 100 01/13/20 15:00 92 19 120/64 (82) 100 01/13/20 14:30 97 17 121/69 (86) 100 01/13/20 14:00 92 16 126/64 (84) 100 01/13/20 13:30 91 18 113/60 (77) 100 01/13/20 13:10 100 01/13/20 13:10 Venturi Mask 10.0 40 01/13/20 13:10 Venturi Mask 10.0 01/13/20 13:10 10.0 40 01/13/20 13:10 100 Cool Aerosol 10.0 40 01/13/20 13:00 86 19 102/51 (68) 100 01/13/20 12:45 86 18 101/52 (68) 100 01/13/20 12:30 90 17 109/56 (73) 100 01/13/20 12:15 103 21 115/63 (80) 100 01/13/20 12:00 Mechanical Ventilator 01/13/20 12:00 98.5 87 19 86/44 (58) 100 01/13/20 11:57 88 01/13/20 11:30 94 18 99/52 (68) 100 01/13/20 11:01 116 27 30 01/13/20 11:00 116 25 122/61 (81) 100 01/13/20 11:00 30 01/13/20 10:45 118 24 139/75 (96) 92 01/13/20 10:30 118 28 149/60 (89) 84 01/13/20 10:15 112 20 141/74 (96) 95 Intake and Output 01/13/20 01/14/20 19:00 07:00 Intake Total 1768.125 ml 1326.31 ml Output Total 650 ml 611 ml Balance 1118.125 ml 715.31 ml IV Total 1768.125 ml 1326.31 ml Output Urine Total 650 ml 610 ml Stool Total 1 ml # Bowel Movements 1 1 Laboratory Tests 01/13/20 11:38: POC Whole Blood Glucose [Pending] 01/13/20 12:09: Arterial Blood pH 7.563*H, Arterial Blood Partial Pressure CO2 24.1*L, Arterial Blood Partial Pressure O2 74.0L, Arterial Blood HCO3 21.2L, Arterial Blood Oxygen Saturation 95.2, Arterial Blood Base Excess -0.3, Asael Test Positive 01/13/20 16:48: POC Whole Blood Glucose [Pending] 01/13/20 20:48: POC Whole Blood Glucose 105 01/14/20 05:11: White Blood Count 6.9, Red Blood Count 3.28L, Hemoglobin 9.3L, Hematocrit 28.9L, Mean Corpuscular Volume 88, Mean Corpuscular Hemoglobin 28.3, Mean Corpuscular Hemoglobin Concent 32.1, Red Cell Distribution Width 20.8H, Platelet Count 49L, Mean Platelet Volume 7.7, Neutrophils (%) (Auto) , Lymphocytes (%) (Auto) , Monocytes (%) (Auto) , Eosinophils (%) (Auto) , Basophils (%) (Auto) , Neutrophils % (Manual) [Pending], Lymphocytes % (Manual) [Pending], Platelet Estimate [Pending], Platelet Morphology [Pending], Sodium Level 142, Potassium Level 2.9L, Chloride Level 107, Carbon Dioxide Level 23, Anion Gap 13, Blood Urea Nitrogen 33H, Creatinine 2.5H, Estimat Glomerular Filtration Rate 31.0, Glucose Level 90, Uric Acid 7.9H, Calcium Level 6.5L, Phosphorus Level 2.7, Magnesium Level 1.8, Total Bilirubin 0.6, Aspartate Amino Transf (AST/SGOT) 146H , Alanine Aminotransferase (ALT/SGPT) 28, Alkaline Phosphatase 127H, C-Reactive Protein, Quantitative > 70.0H, Pro-B-Type Natriuretic Peptide 2086H, Total Protein 5.0L, Albumin 2.0L, Globulin 3.0, Albumin/Globulin Ratio 0.7L, Random Vancomycin Level 10.8 01/14/20 05:22: POC Whole Blood Glucose 99 01/14/20 09:55: Ionized Calcium (Measured) [Pending] Height (Feet): 6 Height (Inches): 0.00 Weight (Pounds): 150 General Appearance: lethargic EENT: normal ENT inspection Neck: normal alignment Cardiovascular: normal peripheral pulses, normal rate, regular rhythm Respiratory/Chest: chest wall non-tender, lungs clear, normal breath sounds Abdomen: normal bowel sounds, non tender, soft Extremities: normal inspection Edema: no edema noted Arm (L), no edema noted Arm (R), no edema noted Leg (L), no edema noted Leg (R), no edema noted Pedal (L), no edema noted Pedal (R), no edema noted Generalized Neurologic: motor weakness Skin: normal pigmentation, warm/dry Assessment/Plan Problem List: (1) Anemia ICD Codes: D64.9 - Anemia, unspecified SNOMED: 668896946 (2) Paraplegia ICD Codes: G82.20 - Paraplegia, unspecified SNOMED: 71898945 (3) Diabetes ICD Codes: E11.9 - Type 2 diabetes mellitus without complications SNOMED: 14532367 (4) Weak ICD Codes: R53.1 - Weakness SNOMED: 68072919 (5) HTN (hypertension) ICD Codes: I10 - Essential (primary) hypertension SNOMED: 60070750 (6) ARF (acute renal failure) ICD Codes: N17.9 - Acute kidney failure, unspecified SNOMED: 78986082 (7) Altered level of consciousness ICD Codes: R40.4 - Transient alteration of awareness SNOMED: 8058263 (8) Dehydration ICD Codes: E86.0 - Dehydration SNOMED: 12733387 (9) Hypernatremia ICD Codes: E87.0 - Hyperosmolality and hypernatremia SNOMED: 053354731 Status: unchanged Assessment/Plan: o2 pulm tx abx ivf cbc bmp am pulm cardio f/u Farrukh Ríos DO Jan 14, 2020 10:01
--- NOTE | 2020-01-14 10:37 | General Progress Note ---
Subjective ROS Limited/Unobtainable: No Allergies: Coded Allergies: No Known Allergies (Unverified , 03/18/19) Objective Last 24 Hour Vital Signs Date Time Temp Pulse Resp B/P (MAP) Pulse Ox O2 Delivery O2 Flow Rate FiO2 01/14/20 10:30 94 16 134/68 (90) 100 01/14/20 10:15 93 15 149/73 (98) 99 01/14/20 10:00 77 13 105/58 (74) 99 01/14/20 09:30 76 15 137/76 (96) 100 01/14/20 09:00 79 13 115/61 (79) 100 01/14/20 08:30 87 16 127/65 (85) 97 01/14/20 08:00 Venturi Mask 10.0 01/14/20 08:00 10.0 40 01/14/20 08:00 97.7 85 16 125/65 (85) 100 01/14/20 08:00 93 01/14/20 07:30 100 Cool Aerosol 10.0 40 01/14/20 07:30 76 13 126/57 (80) 100 01/14/20 07:00 76 13 101/53 (69) 100 01/14/20 06:00 81 14 119/63 (81) 100 01/14/20 05:30 80 16 116/62 (80) 100 01/14/20 05:00 90 19 119/60 (79) 99 01/14/20 04:30 85 18 112/55 (74) 100 01/14/20 04:00 Venturi Mask 10.0 01/14/20 04:00 92 01/14/20 04:00 97.9 94 19 123/70 (87) 100 01/14/20 04:00 10.0 40 01/14/20 03:30 94 17 127/69 (88) 99 01/14/20 03:00 93 16 119/59 (79) 99 01/14/20 02:30 87 14 109/55 (73) 100 01/14/20 02:00 87 15 118/64 (82) 100 01/14/20 01:30 88 17 113/53 (73) 100 01/14/20 01:00 85 17 116/60 (78) 100 01/14/20 00:35 100 Cool Aerosol 10.0 40 01/14/20 00:30 89 16 118/63 (81) 100 01/14/20 00:00 Venturi Mask 10.0 01/14/20 00:00 10.0 40 01/14/20 00:00 92 01/14/20 00:00 97.8 89 16 112/59 (76) 100 01/13/20 23:30 90 17 122/59 (80) 100 01/13/20 23:00 85 16 112/61 (78) 100 01/13/20 22:30 86 15 122/57 (78) 100 01/13/20 22:00 90 17 117/60 (79) 100 01/13/20 21:30 93 20 130/61 (84) 100 01/13/20 21:17 112/61 01/13/20 21:00 82 14 112/61 (78) 100 01/13/20 20:30 93 17 125/68 (87) 100 01/13/20 20:00 94 01/13/20 20:00 97.9 90 17 125/56 (79) 100 01/13/20 20:00 Venturi Mask 10.0 01/13/20 20:00 10.0 40 01/13/20 19:30 93 17 123/61 (81) 100 01/13/20 19:05 100 Cool Aerosol 10.0 40 01/13/20 19:00 80 15 108/53 (71) 100 01/13/20 18:30 81 14 113/59 (77) 100 01/13/20 18:00 90 17 123/62 (82) 100 01/13/20 17:30 89 13 99/53 (68) 100 01/13/20 17:00 Venturi Mask 10.0 01/13/20 17:00 89 16 99/58 (72) 100 01/13/20 16:30 98.2 100 21 126/62 (83) 100 01/13/20 16:00 Venturi Mask 10.0 01/13/20 16:00 97 19 119/64 (82) 100 01/13/20 15:34 98 01/13/20 15:30 98 18 120/69 (86) 100 01/13/20 15:00 92 19 120/64 (82) 100 01/13/20 14:30 97 17 121/69 (86) 100 01/13/20 14:00 92 16 126/64 (84) 100 01/13/20 13:30 91 18 113/60 (77) 100 01/13/20 13:10 100 01/13/20 13:10 Venturi Mask 10.0 40 01/13/20 13:10 Venturi Mask 10.0 01/13/20 13:10 10.0 40 01/13/20 13:10 100 Cool Aerosol 10.0 40 01/13/20 13:00 86 19 102/51 (68) 100 01/13/20 12:45 86 18 101/52 (68) 100 01/13/20 12:30 90 17 109/56 (73) 100 01/13/20 12:15 103 21 115/63 (80) 100 01/13/20 12:00 Mechanical Ventilator 01/13/20 12:00 98.5 87 19 86/44 (58) 100 01/13/20 11:57 88 01/13/20 11:30 94 18 99/52 (68) 100 01/13/20 11:01 116 27 30 01/13/20 11:00 116 25 122/61 (81) 100 01/13/20 11:00 30 01/13/20 10:45 118 24 139/75 (96) 92 Intake and Output 01/13/20 01/14/20 19:00 07:00 Intake Total 1768.125 ml 1326.31 ml Output Total 650 ml 611 ml Balance 1118.125 ml 715.31 ml IV Total 1768.125 ml 1326.31 ml Output Urine Total 650 ml 610 ml Stool Total 1 ml # Bowel Movements 1 1 Laboratory Tests 01/13/20 11:38: POC Whole Blood Glucose [Pending] 01/13/20 12:09: Arterial Blood pH 7.563*H, Arterial Blood Partial Pressure CO2 24.1*L, Arterial Blood Partial Pressure O2 74.0L, Arterial Blood HCO3 21.2L, Arterial Blood Oxygen Saturation 95.2, Arterial Blood Base Excess -0.3, Asael Test Positive 01/13/20 16:48: POC Whole Blood Glucose [Pending] 01/13/20 20:48: POC Whole Blood Glucose 105 01/14/20 05:11: White Blood Count 6.9, Red Blood Count 3.28L, Hemoglobin 9.3L, Hematocrit 28.9L, Mean Corpuscular Volume 88, Mean Corpuscular Hemoglobin 28.3, Mean Corpuscular Hemoglobin Concent 32.1, Red Cell Distribution Width 20.8H, Platelet Count 49L, Mean Platelet Volume 7.7, Neutrophils (%) (Auto) , Lymphocytes (%) (Auto) , Monocytes (%) (Auto) , Eosinophils (%) (Auto) , Basophils (%) (Auto) , Neutrophils % (Manual) [Pending], Lymphocytes % (Manual) [Pending], Platelet Estimate [Pending], Platelet Morphology [Pending], Sodium Level 142, Potassium Level 2.9L, Chloride Level 107, Carbon Dioxide Level 23, Anion Gap 13, Blood Urea Nitrogen 33H, Creatinine 2.5H, Estimat Glomerular Filtration Rate 31.0, Glucose Level 90, Uric Acid 7.9H, Calcium Level 6.5L, Phosphorus Level 2.7, Magnesium Level 1.8, Total Bilirubin 0.6, Aspartate Amino Transf (AST/SGOT) 146H , Alanine Aminotransferase (ALT/SGPT) 28, Alkaline Phosphatase 127H, C-Reactive Protein, Quantitative > 70.0H, Pro-B-Type Natriuretic Peptide 2086H, Total Protein 5.0L, Albumin 2.0L, Globulin 3.0, Albumin/Globulin Ratio 0.7L, Random Vancomycin Level 10.8 01/14/20 05:22: POC Whole Blood Glucose 99 01/14/20 09:55: Ionized Calcium (Measured) [Pending] Height (Feet): 6 Height (Inches): 0.00 Weight (Pounds): 150 General Appearance: lethargic EENT: normal ENT inspection Neck: supple Cardiovascular: tachycardia Respiratory/Chest: decreased breath sounds Abdomen: hypoactive bowel sounds Extremities: non-tender Assessment/Plan Status: unchanged Assessment/Plan: AMS dementia Anemia DM hyper CA elevated AST low albumin COPD RI HTN extubated NGTF for now repeat wallow eval anemia work up GI procedures on hold fu nephrology and cardiology recs repeat labs fu stool ob>>> neg bowel regimen Paulino Bueno MD Jan 14, 2020 10:37
--- NOTE | 2020-01-14 10:51 | Infectious Diseases Prog Note ---
Assessment/Plan Assessment: Shock- likely combination sepstic and metabolic derangements- pressors re quirements going down Probable UTI -01/10 u/a wbc 60-80, nit neg, leuk +3; ucx NTD -Bcx NTD Probable PNA -01/12 CXR: No significant change in bilateral patchy pulmonary opacities, concerning for pneumonia versus edemaq. Small bilateral pleural effusions. -01/10 CXR: Bilateral interstitial and airspace infiltrates versus edema persists. sp cx p COVID19 neg -01/04 rapid COVID PCR neg x1 influenza PCR neg CXR: Mild interstitial vascular prominence. No focal infiltrate or consolidation. Acute resp failure- 2ry to vol overload and metabolic acidosis- on VM now 01/10 s- sp intubation 01/10> extubated 01/12 Low grade fever No leukocytosis> pancytopenia -u/a neg, ucx neg Tachycardia, SP-2 ry to severe dehydration- no evidence of infection AVIS,worsened Hypernatremia>Hyponatremia R>L hydronephrosis Pancreatic lesions -Abd US: Bilateral right greater than left hydronephrosis, increased since prior study of 03/20/2019. Etiology not demonstrated. Empty bladder with a Mathew catheter. 3 hypoechoic lesions within the pancreatic head and body, each measuring about 5 mm. Appearance nonspecific. Bilateral pleural effusions. Echogenic liver, consistent with hepatocellular disease. Surface likely nodularity raises concern for cirrhosis. Gallbladder sludge. Negative for dilated bile ducts. Probable nonobstructive left intrarenal calculi. Multiple hepatic cysts Acute on chronic encephalopathy -CT head: 1. Markedly limited, near nondiagnostic evaluation due to motion artifact. Grossly, age-related changes and small vessel disease of aging are noted. Again grossly, no acute intracranial pathology is detected. If there is a high degree of concern or if there is concern for subtle abnormalities, magnetic resonance imaging of the brain with diffusion-weighted sequences should be performed, due to the markedly limited nature of the current study. Close clinical correlation is necessary. HTN COPD DM2 paraplegia Dementia non verbal [place] resident ([facility]) Plan: -Switch Zosyn #4 to Cefepime given worsening thrombocytopenia -empiric IV Vancomycin #3 -01/06 SP Ceftriaxone #2 -01/04 Sp IV Vancomycin x1, Cefepime x1 -f/u cx -Monitor CBC/CMP, temperatures -Renal, cards f/u -f/u ucx, Bcx x2, sp cx -ICU care -aspiration precautions Thank you for consulting [facility]. Will continue to follow along with you. Discussed with RN. Subjective Allergies: Coded Allergies: No Known Allergies (Unverified , 03/18/19) afebrile >48hrs extubated yesterday, now on VM levo down to 2 Bcx NTD Objective Last 24 Hour Vital Signs Date Time Temp Pulse Resp B/P (MAP) Pulse Ox O2 Delivery O2 Flow Rate FiO2 01/14/20 10:30 94 16 134/68 (90) 100 01/14/20 10:15 93 15 149/73 (98) 99 01/14/20 10:00 77 13 105/58 (74) 99 01/14/20 09:30 76 15 137/76 (96) 100 01/14/20 09:00 79 13 115/61 (79) 100 01/14/20 08:30 87 16 127/65 (85) 97 01/14/20 08:00 Venturi Mask 10.0 01/14/20 08:00 10.0 40 01/14/20 08:00 97.7 85 16 125/65 (85) 100 01/14/20 08:00 93 01/14/20 07:30 100 Cool Aerosol 10.0 40 01/14/20 07:30 76 13 126/57 (80) 100 01/14/20 07:00 76 13 101/53 (69) 100 01/14/20 06:00 81 14 119/63 (81) 100 01/14/20 05:30 80 16 116/62 (80) 100 01/14/20 05:00 90 19 119/60 (79) 99 01/14/20 04:30 85 18 112/55 (74) 100 01/14/20 04:00 Venturi Mask 10.0 01/14/20 04:00 92 01/14/20 04:00 97.9 94 19 123/70 (87) 100 01/14/20 04:00 10.0 40 01/14/20 03:30 94 17 127/69 (88) 99 01/14/20 03:00 93 16 119/59 (79) 99 01/14/20 02:30 87 14 109/55 (73) 100 01/14/20 02:00 87 15 118/64 (82) 100 01/14/20 01:30 88 17 113/53 (73) 100 01/14/20 01:00 85 17 116/60 (78) 100 01/14/20 00:35 100 Cool Aerosol 10.0 40 01/14/20 00:30 89 16 118/63 (81) 100 01/14/20 00:00 Venturi Mask 10.0 01/14/20 00:00 10.0 40 01/14/20 00:00 92 01/14/20 00:00 97.8 89 16 112/59 (76) 100 01/13/20 23:30 90 17 122/59 (80) 100 01/13/20 23:00 85 16 112/61 (78) 100 01/13/20 22:30 86 15 122/57 (78) 100 01/13/20 22:00 90 17 117/60 (79) 100 01/13/20 21:30 93 20 130/61 (84) 100 01/13/20 21:17 112/61 01/13/20 21:00 82 14 112/61 (78) 100 01/13/20 20:30 93 17 125/68 (87) 100 01/13/20 20:00 94 01/13/20 20:00 97.9 90 17 125/56 (79) 100 01/13/20 20:00 Venturi Mask 10.0 01/13/20 20:00 10.0 40 01/13/20 19:30 93 17 123/61 (81) 100 01/13/20 19:05 100 Cool Aerosol 10.0 40 01/13/20 19:00 80 15 108/53 (71) 100 01/13/20 18:30 81 14 113/59 (77) 100 01/13/20 18:00 90 17 123/62 (82) 100 01/13/20 17:30 89 13 99/53 (68) 100 01/13/20 17:00 Venturi Mask 10.0 01/13/20 17:00 89 16 99/58 (72) 100 01/13/20 16:30 98.2 100 21 126/62 (83) 100 01/13/20 16:00 Venturi Mask 10.0 01/13/20 16:00 97 19 119/64 (82) 100 01/13/20 15:34 98 01/13/20 15:30 98 18 120/69 (86) 100 01/13/20 15:00 92 19 120/64 (82) 100 01/13/20 14:30 97 17 121/69 (86) 100 01/13/20 14:00 92 16 126/64 (84) 100 01/13/20 13:30 91 18 113/60 (77) 100 01/13/20 13:10 100 01/13/20 13:10 Venturi Mask 10.0 40 01/13/20 13:10 Venturi Mask 10.0 01/13/20 13:10 10.0 40 01/13/20 13:10 100 Cool Aerosol 10.0 40 01/13/20 13:00 86 19 102/51 (68) 100 01/13/20 12:45 86 18 101/52 (68) 100 01/13/20 12:30 90 17 109/56 (73) 100 01/13/20 12:15 103 21 115/63 (80) 100 01/13/20 12:00 Mechanical Ventilator 01/13/20 12:00 98.5 87 19 86/44 (58) 100 01/13/20 11:57 88 01/13/20 11:30 94 18 99/52 (68) 100 01/13/20 11:01 116 27 30 01/13/20 11:00 116 25 122/61 (81) 100 01/13/20 11:00 30 01/13/20 10:45 118 24 139/75 (96) 92 Height (Feet): 6 Height (Inches): 0.00 Weight (Pounds): 150 CARDIOVASCULAR: No murmur. LUNGS: Poor exchange. ABDOMEN: Bowel sounds distant. EXTREMITIES: No cyanosis or edema. NEUROLOGIC: The patient moves all extremities, slightly weak. Microbiology Date/Time Source Procedure Growth Status 01/11/20 18:00 Urine,Clean Catch Urine Culture - Preliminary NO GROWTH AFTER 24 HOURS Resulted 01/11/20 14:30 Blood Blood Culture - Preliminary NO GROWTH AFTER 24 HOURS Resulted 01/11/20 14:15 Blood Blood Culture - Preliminary NO GROWTH AFTER 24 HOURS Resulted Laboratory Tests Test 01/13/20 11:38 01/13/20 12:09 01/13/20 16:48 01/13/20 20:48 POC Whole Blood Glucose Pending Pending 105 MG/DL (74-106) Arterial Blood pH 7.563 (7.350-7.450) Arterial Blood Partial Pressure CO2 24.1 mmHg (35.0-45.0) *L Arterial Blood Partial Pressure O2 74.0 mmHg (75.0-100.0) L Arterial Blood HCO3 21.2 mmol/L (22.0-26.0) L Arterial Blood Oxygen Saturation 95.2 % (95-100) Arterial Blood Base Excess -0.3 (-2-2) Asael Test Positive Test 01/14/20 05:11 01/14/20 05:22 01/14/20 09:55 White Blood Count 6.9 K/UL (4.8-10.8) Red Blood Count 3.28 M/UL (4.70-6.10) L Hemoglobin 9.3 G/DL (14.2-18.0) L Hematocrit 28.9 % (42.0-52.0) L Mean Corpuscular Volume 88 FL (80-99) Mean Corpuscular Hemoglobin 28.3 PG (27.0-31.0) Mean Corpuscular Hemoglobin Concent 32.1 G/DL (32.0-36.0) Red Cell Distribution Width 20.8 % (11.6-14.8) H Platelet Count 49 K/UL (150-450) L Mean Platelet Volume 7.7 FL (6.5-10.1) Neutrophils (%) (Auto) % (45.0-75.0) Lymphocytes (%) (Auto) % (20.0-45.0) Monocytes (%) (Auto) % (1.0-10.0) Eosinophils (%) (Auto) % (0.0-3.0) Basophils (%) (Auto) % (0.0-2.0) Neutrophils % (Manual) Pending Lymphocytes % (Manual) Pending Platelet Estimate Pending Platelet Morphology Pending Sodium Level 142 MMOL/L (136-145) Potassium Level 2.9 MMOL/L (3.5-5.1) L Chloride Level 107 MMOL/L (98-107) Carbon Dioxide Level 23 MMOL/L (21-32) Anion Gap 13 mmol/L (5-15) Blood Urea Nitrogen 33 mg/dL (7-18) H Creatinine 2.5 MG/DL (0.55-1.30) H Estimat Glomerular Filtration Rate 31.0 mL/min (>60) Glucose Level 90 MG/DL (74-106) Uric Acid 7.9 MG/DL (2.6-7.2) H Calcium Level 6.5 MG/DL (8.5-10.1) L Phosphorus Level 2.7 MG/DL (2.5-4.9) Magnesium Level 1.8 MG/DL (1.8-2.4) Total Bilirubin 0.6 MG/DL (0.2-1.0) Aspartate Amino Transf (AST/SGOT) 146 U/L (15-37) H Alanine Aminotransferase (ALT/SGPT) 28 U/L (12-78) Alkaline Phosphatase 127 U/L (46-116) H C-Reactive Protein, Quantitative > 70.0 mg/dL (0.00-0.90) H Pro-B-Type Natriuretic Peptide 2086 pg/mL (0-125) H Total Protein 5.0 G/DL (6.4-8.2) L Albumin 2.0 G/DL (3.4-5.0) L Globulin 3.0 g/dL Albumin/Globulin Ratio 0.7 (1.0-2.7) L Random Vancomycin Level 10.8 ug/mL POC Whole Blood Glucose 99 MG/DL (74-106) Ionized Calcium (Measured) Pending Current Medications Medications (Trade) Dose Ordered Sig/Jesse Route PRN Reason Start Time Stop Time Status Last Admin Dose Admin Acetaminophen (Tylenol) 650 mg Q4H PRN ORAL PRNH/TEMP 01/05/20 20:15 02/04/20 20:14 01/12/20 03:10 Albuterol/ Ipratropium (Albuterol/ Ipratropium) 3 ml Q4H PRN HHN Bronchospasm 01/10/20 18:56 01/15/20 18:55 Allopurinol (allopurinoL) 300 mg BID NG 01/09/20 18:00 02/06/20 14:14 01/14/20 08:34 Aluminum Hydroxide (Amphojel) 1,920 mg Q8HR NG 01/13/20 14:00 02/10/20 09:59 01/14/20 06:09 Bisacodyl (Dulcolax) 10 mg DAILY PRN RECTAL Constipation 01/05/20 20:15 04/04/20 20:14 Calcium Gluconate/ Sodium Chloride 50 ml @ 50 mls/hr Q12HR IVPB 01/13/20 21:00 04/12/20 20:59 01/14/20 08:35 Chlorhexidine Gluconate (Navya-Hex 2%) 1 applic DAILY@2000 TOPIC 01/11/20 20:00 04/10/20 19:59 01/13/20 20:09 Dextrose (Dextrose 50%) 25 ml Q30M PRN IV Hypoglycemia 01/05/20 20:15 04/04/20 20:14 Dextrose (Dextrose 50%) 50 ml Q30M PRN IV Hypoglycemia 01/05/20 20:15 04/04/20 20:14 Dextrose/Sodium Chloride 1,000 ml @ 100 mls/hr Q10H IV 01/12/20 12:00 02/11/20 11:59 01/14/20 03:23 Docusate Sodium (Colace) 200 mg DAILY ORAL 01/06/20 09:00 02/05/20 08:59 01/14/20 08:34 Gadobutrol (Gadavist) 7.5 mmol NOW PRN IV Radiology Procedure 01/11/20 09:15 01/15/20 09:14 Linaclotide (Linzess) 290 mcg BEFORE BREAKFAST ORAL 01/10/20 06:30 04/09/20 06:29 01/11/20 05:33 Norepinephrine Bitartrate 250 ml @ 0 mls/hr Q24H IV 01/11/20 12:00 01/14/20 11:29 01/13/20 21:17 Ondansetron HCl (Zofran) 4 mg Q6H PRN IVP Nausea & Vomiting 01/10/20 06:30 02/09/20 06:29 Oxymetazoline HCl (Afrin Nasal [place]) 2 spray Q12HR PRN NASAL dry nasal passage 01/11/20 08:00 04/10/20 07:59 Pantoprazole (Protonix) 40 mg EVERY 12 HOURS IVP 01/05/20 21:00 02/04/20 20:59 01/14/20 08:34 Piperacillin Sod/ Tazobactam Sod 2.25 gm/Dextrose 55 ml @ 110 mls/hr Q8H IV 01/11/20 18:00 01/18/20 17:59 01/14/20 01:53 Polyethylene Glycol (Miralax) 17 gm BEDTIME NG 01/11/20 21:00 02/08/20 20:59 Potassium Chloride 100 ml @ 50 mls/hr Q2H IVPB 01/14/20 08:30 01/14/20 12:29 01/14/20 08:36 Sennosides (Senokot) 8.6 mg QHS NG 01/11/20 21:00 02/04/20 20:59 01/13/20 20:35 Vancomycin HCl ([facility] pharmacy to dose) 1 ea DAILY PRN MISC Per rx protocol 01/12/20 14:45 02/11/20 14:44 Clara Guerin M.D. Jan 14, 2020 10:51
[2020-01-14] MEDS ORDERED: Varibar Pudding 230ml MC PRN (11:45)
[2020-01-14] MEDS ORDERED: Varibar Honey 250ml MC PRN (11:45)
[2020-01-14] MEDS ORDERED: Varibar Thin Liquid powder 148gm MC PRN (11:45)
[2020-01-14] MEDS ORDERED: Varibar Nectar 240ml MC PRN (11:45)
--- NOTE | 2020-01-14 11:53 | Nephrology Progress Note ---
Assessment/Plan Problem List: (1) ARF (acute renal failure) (2) Hypernatremia (3) Hypovolemic shock (4) Altered level of consciousness (5) Hypercalcemia (6) Hyperuricemia Assessment Acute renal failure Possible underlying chronic kidney failure Severe dehydration Hypernatremia indicative of severe water deficit Severe hyperuricemia, partly due to dehydration and renal failure Acute metabolic and toxic encephalopathy Mild, malnutrition Anemia Lactic acid, possible sepsis Hypercalcemia Plan January 13: In ICU. Now extubated. Only dialyzed once. Urine output maintained. Serum creatinine down to 2.5. Patient has NG tube. Continue to monitor renal parameters. Continue per consultants. Abnormal electrolytes addressed. January 12: Remains in ICU. Intubated. Transfused yesterday. Abnormal electrolytes addressed. Dialyzed once January 10. Serum creatinine stable. Will adjust IV fluid. Monitor renal parameters. Dialysis as needed. Calcium gluconate IV ordered. Ionized calcium level ordered with tomorrow's labs. January 11: Patient in ICU. Intubated. On Levophed. Hemoglobin low. Due for transfusion. Electrolyte abnormalities noted and addressed. Patient was dialyzed yesterday. Will check lab tomorrow. Dialysis as needed. Discussed with SELIN Srivastava. January 10: Patient is doing poorly. Blood pressure low. ABG abnormal with metabolic acidosis. IV sodium bicarb given. Serum creatinine reno. Patient has acute renal failure. Nontunneled dialysis catheter replacement ordered.. Patient need life saving dialysis treatment SRINIVAS. January 09: Labs reviewed. IV D5 and a half with sodium bicarb initiated. Serum creatinine higher. Continue to monitor renal parameters. NG feeding was changed to Nepro. Patient remains full code. Poor prognosis. January 08: Labs reviewed. IV D5W discontinued. 500 cc 3% saline ordered. NG tube for feeding and for medications. Allopurinol dose increased. Continue to monitor renal parameters serum calcium and phosphorus. January 07: Labs reviewed. Serum calcium remains elevated. Uric acid still elevated. Will give pamidronate 60 mg IV piggyback once for hypercalcemia. Continue to monitor renal parameters. Continue D5W 150 cc an hour. Start Bicitra 30 cc p.o. every 6 hours. Add allopurinol D5W IV hydration Albumin bolus N.p.o. until able to take p.o. Antibiotics Monitor renal parameters monitor calcium, monitor uric acid Subjective ROS Limited/Unobtainable: Yes Objective Objective Last 24 Hour Vital Signs Date Time Temp Pulse Resp B/P (MAP) Pulse Ox O2 Delivery O2 Flow Rate FiO2 01/14/20 11:00 93 21 119/69 (86) 100 01/14/20 10:30 94 16 134/68 (90) 100 01/14/20 10:15 93 15 149/73 (98) 99 01/14/20 10:00 77 13 105/58 (74) 99 01/14/20 09:30 76 15 137/76 (96) 100 01/14/20 09:00 79 13 115/61 (79) 100 01/14/20 08:30 87 16 127/65 (85) 97 01/14/20 08:00 Venturi Mask 10.0 01/14/20 08:00 10.0 40 01/14/20 08:00 97.7 85 16 125/65 (85) 100 01/14/20 08:00 93 01/14/20 07:30 100 Cool Aerosol 10.0 40 01/14/20 07:30 76 13 126/57 (80) 100 01/14/20 07:00 76 13 101/53 (69) 100 01/14/20 06:00 81 14 119/63 (81) 100 01/14/20 05:30 80 16 116/62 (80) 100 01/14/20 05:00 90 19 119/60 (79) 99 01/14/20 04:30 85 18 112/55 (74) 100 01/14/20 04:00 Venturi Mask 10.0 01/14/20 04:00 92 01/14/20 04:00 97.9 94 19 123/70 (87) 100 01/14/20 04:00 10.0 40 01/14/20 03:30 94 17 127/69 (88) 99 01/14/20 03:00 93 16 119/59 (79) 99 01/14/20 02:30 87 14 109/55 (73) 100 01/14/20 02:00 87 15 118/64 (82) 100 01/14/20 01:30 88 17 113/53 (73) 100 01/14/20 01:00 85 17 116/60 (78) 100 01/14/20 00:35 100 Cool Aerosol 10.0 40 01/14/20 00:30 89 16 118/63 (81) 100 01/14/20 00:00 Venturi Mask 10.0 01/14/20 00:00 10.0 40 01/14/20 00:00 92 01/14/20 00:00 97.8 89 16 112/59 (76) 100 01/13/20 23:30 90 17 122/59 (80) 100 01/13/20 23:00 85 16 112/61 (78) 100 01/13/20 22:30 86 15 122/57 (78) 100 01/13/20 22:00 90 17 117/60 (79) 100 01/13/20 21:30 93 20 130/61 (84) 100 01/13/20 21:17 112/61 01/13/20 21:00 82 14 112/61 (78) 100 01/13/20 20:30 93 17 125/68 (87) 100 01/13/20 20:00 94 01/13/20 20:00 97.9 90 17 125/56 (79) 100 01/13/20 20:00 Venturi Mask 10.0 01/13/20 20:00 10.0 40 01/13/20 19:30 93 17 123/61 (81) 100 01/13/20 19:05 100 Cool Aerosol 10.0 40 01/13/20 19:00 80 15 108/53 (71) 100 01/13/20 18:30 81 14 113/59 (77) 100 01/13/20 18:00 90 17 123/62 (82) 100 01/13/20 17:30 89 13 99/53 (68) 100 01/13/20 17:00 Venturi Mask 10.0 01/13/20 17:00 89 16 99/58 (72) 100 01/13/20 16:30 98.2 100 21 126/62 (83) 100 01/13/20 16:00 Venturi Mask 10.0 01/13/20 16:00 97 19 119/64 (82) 100 01/13/20 15:34 98 01/13/20 15:30 98 18 120/69 (86) 100 01/13/20 15:00 92 19 120/64 (82) 100 01/13/20 14:30 97 17 121/69 (86) 100 01/13/20 14:00 92 16 126/64 (84) 100 01/13/20 13:30 91 18 113/60 (77) 100 01/13/20 13:10 100 01/13/20 13:10 Venturi Mask 10.0 40 01/13/20 13:10 Venturi Mask 10.0 01/13/20 13:10 10.0 40 01/13/20 13:10 100 Cool Aerosol 10.0 40 01/13/20 13:00 86 19 102/51 (68) 100 01/13/20 12:45 86 18 101/52 (68) 100 01/13/20 12:30 90 17 109/56 (73) 100 01/13/20 12:15 103 21 115/63 (80) 100 01/13/20 12:00 Mechanical Ventilator 01/13/20 12:00 98.5 87 19 86/44 (58) 100 01/13/20 11:57 88 Intake and Output 01/13/20 01/14/20 19:00 07:00 Intake Total 1768.125 ml 1326.31 ml Output Total 650 ml 611 ml Balance 1118.125 ml 715.31 ml IV Total 1768.125 ml 1326.31 ml Output Urine Total 650 ml 610 ml Stool Total 1 ml # Bowel Movements 1 1 Laboratory Tests 01/13/20 12:09: Arterial Blood pH 7.563*H, Arterial Blood Partial Pressure CO2 24.1*L, Arterial Blood Partial Pressure O2 74.0L, Arterial Blood HCO3 21.2L, Arterial Blood Oxygen Saturation 95.2, Arterial Blood Base Excess -0.3, Asael Test Positive 01/13/20 16:48: POC Whole Blood Glucose [Pending] 01/13/20 20:48: POC Whole Blood Glucose 105 01/14/20 05:11: White Blood Count 6.9, Red Blood Count 3.28L, Hemoglobin 9.3L, Hematocrit 28.9L, Mean Corpuscular Volume 88, Mean Corpuscular Hemoglobin 28.3, Mean Corpuscular Hemoglobin Concent 32.1, Red Cell Distribution Width 20.8H, Platelet Count 49L, Mean Platelet Volume 7.7, Neutrophils (%) (Auto) , Lymphocytes (%) (Auto) , Monocytes (%) (Auto) , Eosinophils (%) (Auto) , Basophils (%) (Auto) , Differential Total Cells Counted 100, Neutrophils % (Manual) 68, Lymphocytes % (Manual) 19L, Monocytes % (Manual) 3, Eosinophils % (Manual) 0, Basophils % (Manual) 0, Band Neutrophils 10H, Nucleated Red Blood Cells 1, Platelet Estimate DecreasedL, Platelet Morphology Normal, Polychromasia 1+, Hypochromasia 2+, Anisocytosis 2+, Sodium Level 142, Potassium Level 2.9L, Chloride Level 107, Carbon Dioxide Level 23, Anion Gap 13, Blood Urea Nitrogen 33H, Creatinine 2.5H, Estimat Glomerular Filtration Rate 31.0, Glucose Level 90, Uric Acid 7.9H, Calcium Level 6.5L, Phosphorus Level 2.7, Magnesium Level 1.8, Total Bilirubin 0.6, Aspartate Amino Transf (AST/SGOT) 146H, Alanine Aminotransferase (ALT/SGPT) 28, Alkaline Phosphatase 127H, C-Reactive Protein, Quantitative > 70.0H, Pro-B-Type Natriuretic Peptide 2086H, Total Protein 5.0L, Albumin 2.0L, Globulin 3.0, Albumin/Globulin Ratio 0.7L, Random Vancomycin Level 10.8 01/14/20 05:22: POC Whole Blood Glucose 99 01/14/20 09:55: Ionized Calcium (Measured) 0.88L Height (Feet): 6 Height (Inches): 0.00 Weight (Pounds): 150 General Appearance: no apparent distress, lethargic EENT: other - Patient now on Venturi mask after extubation yesterday Cardiovascular: tachycardia Respiratory/Chest: decreased breath sounds Abdomen: distended Dhiraj Biswas MD Jan 14, 2020 11:53
[2020-01-14] MEDS: Norepinephrine 4mg/NS Premix 250 ML IV SCH (12:09)
[2020-01-14] MEDS: Cefepime HCl 1 GM in D5W 55 ML IVPB SCH (12:09)
--- NOTE | 2020-01-14 15:21 | Cardiac Electrophysiology PN ---
Assessment/Plan Assessment/Plan 1. Altered mental status due to severe dehydration in view of sodium of 160 and acute renal failure. On IV fluids and IV antibiotics. Ruled out for OH. Na 132 now 2. Hypotension. Off BP meds (at the retirement, the patient was on amlodipine and metoprolol) On 2 mcg of Levophed. Add Midodrine 10 tid 3. History of CVA, Plavix DCed in view of hematuria. 4. Advanced dementia. NGT feeding 5. Diabetes. 6. Acute renal failure. The patient is being hydrated. Cr 4.2. Had HD once only on 01/11/20 7. Hematuria 8. Anemia with Hb 5.8 and coffee ground emesis. FU Dr Bueno 9. Shock liver with increase AST>2000 DW RN Subjective Subjective In ICU in SR in restraints on Face MAsk Has NGT in. On Levo 2 mcg. Objective Last 24 Hour Vital Signs Date Time Temp Pulse Resp B/P (MAP) Pulse Ox O2 Delivery O2 Flow Rate FiO2 01/14/20 14:30 89 14 114/60 (78) 99 01/14/20 14:00 87 14 120/65 (83) 99 01/14/20 13:30 90 13 130/65 (86) 99 01/14/20 13:00 83 13 83/52 (62) 98 01/14/20 12:30 91 14 101/53 (69) 100 01/14/20 12:30 100 Cool Aerosol 5.0 28 01/14/20 12:09 113/67 01/14/20 12:00 Venturi Mask 5.0 01/14/20 12:00 92 01/14/20 12:00 5.0 28 01/14/20 12:00 97.5 89 18 113/67 (82) 99 01/14/20 11:30 91 16 125/68 (87) 100 01/14/20 11:00 93 21 119/69 (86) 100 01/14/20 10:30 94 16 134/68 (90) 100 01/14/20 10:15 93 15 149/73 (98) 99 01/14/20 10:00 77 13 105/58 (74) 99 01/14/20 09:30 76 15 137/76 (96) 100 01/14/20 09:00 79 13 115/61 (79) 100 01/14/20 08:30 87 16 127/65 (85) 97 01/14/20 08:00 Venturi Mask 10.0 01/14/20 08:00 10.0 40 01/14/20 08:00 97.7 85 16 125/65 (85) 100 01/14/20 08:00 93 01/14/20 07:30 100 Cool Aerosol 10.0 40 01/14/20 07:30 76 13 126/57 (80) 100 01/14/20 07:00 76 13 101/53 (69) 100 01/14/20 06:00 81 14 119/63 (81) 100 01/14/20 05:30 80 16 116/62 (80) 100 01/14/20 05:00 90 19 119/60 (79) 99 01/14/20 04:30 85 18 112/55 (74) 100 01/14/20 04:00 Venturi Mask 10.0 01/14/20 04:00 92 01/14/20 04:00 97.9 94 19 123/70 (87) 100 01/14/20 04:00 10.0 40 01/14/20 03:30 94 17 127/69 (88) 99 01/14/20 03:00 93 16 119/59 (79) 99 01/14/20 02:30 87 14 109/55 (73) 100 01/14/20 02:00 87 15 118/64 (82) 100 01/14/20 01:30 88 17 113/53 (73) 100 01/14/20 01:00 85 17 116/60 (78) 100 01/14/20 00:35 100 Cool Aerosol 10.0 40 01/14/20 00:30 89 16 118/63 (81) 100 01/14/20 00:00 Venturi Mask 10.0 01/14/20 00:00 10.0 40 01/14/20 00:00 92 01/14/20 00:00 97.8 89 16 112/59 (76) 100 01/13/20 23:30 90 17 122/59 (80) 100 01/13/20 23:00 85 16 112/61 (78) 100 01/13/20 22:30 86 15 122/57 (78) 100 01/13/20 22:00 90 17 117/60 (79) 100 01/13/20 21:30 93 20 130/61 (84) 100 01/13/20 21:17 112/61 01/13/20 21:00 82 14 112/61 (78) 100 01/13/20 20:30 93 17 125/68 (87) 100 01/13/20 20:00 94 01/13/20 20:00 97.9 90 17 125/56 (79) 100 01/13/20 20:00 Venturi Mask 10.0 01/13/20 20:00 10.0 40 01/13/20 19:30 93 17 123/61 (81) 100 01/13/20 19:05 100 Cool Aerosol 10.0 40 01/13/20 19:00 80 15 108/53 (71) 100 01/13/20 18:30 81 14 113/59 (77) 100 01/13/20 18:00 90 17 123/62 (82) 100 01/13/20 17:30 89 13 99/53 (68) 100 01/13/20 17:00 Venturi Mask 10.0 01/13/20 17:00 89 16 99/58 (72) 100 01/13/20 16:30 98.2 100 21 126/62 (83) 100 01/13/20 16:00 Venturi Mask 10.0 01/13/20 16:00 97 19 119/64 (82) 100 01/13/20 15:34 98 01/13/20 15:30 98 18 120/69 (86) 100 Intake and Output 01/13/20 01/14/20 19:00 07:00 Intake Total 1768.125 ml 1326.31 ml Output Total 650 ml 611 ml Balance 1118.125 ml 715.31 ml IV Total 1768.125 ml 1326.31 ml Output Urine Total 650 ml 610 ml Stool Total 1 ml # Bowel Movements 1 1 Laboratory Tests Test 01/13/20 16:48 01/13/20 20:48 01/14/20 05:11 01/14/20 05:22 POC Whole Blood Glucose Pending 105 MG/DL (74-106) 99 MG/DL (74-106) White Blood Count 6.9 K/UL (4.8-10.8) Red Blood Count 3.28 M/UL (4.70-6.10) L Hemoglobin 9.3 G/DL (14.2-18.0) L Hematocrit 28.9 % (42.0-52.0) L Mean Corpuscular Volume 88 FL (80-99) Mean Corpuscular Hemoglobin 28.3 PG (27.0-31.0) Mean Corpuscular Hemoglobin Concent 32.1 G/DL (32.0-36.0) Red Cell Distribution Width 20.8 % (11.6-14.8) H Platelet Count 49 K/UL (150-450) L Mean Platelet Volume 7.7 FL (6.5-10.1) Neutrophils (%) (Auto) % (45.0-75.0) Lymphocytes (%) (Auto) % (20.0-45.0) Monocytes (%) (Auto) % (1.0-10.0) Eosinophils (%) (Auto) % (0.0-3.0) Basophils (%) (Auto) % (0.0-2.0) Differential Total Cells Counted 100 Neutrophils % (Manual) 68 % (45-75) Lymphocytes % (Manual) 19 % (20-45) L Monocytes % (Manual) 3 % (1-10) Eosinophils % (Manual) 0 % (0-3) Basophils % (Manual) 0 % (0-2) Band Neutrophils 10 % (0-8) H Nucleated Red Blood Cells 1 /100 WBC Platelet Estimate Decreased L Platelet Morphology Normal Polychromasia 1+ Hypochromasia 2+ Anisocytosis 2+ Sodium Level 142 MMOL/L (136-145) Potassium Level 2.9 MMOL/L (3.5-5.1) L Chloride Level 107 MMOL/L (98-107) Carbon Dioxide Level 23 MMOL/L (21-32) Anion Gap 13 mmol/L (5-15) Blood Urea Nitrogen 33 mg/dL (7-18) H Creatinine 2.5 MG/DL (0.55-1.30) H Estimat Glomerular Filtration Rate 31.0 mL/min (>60) Glucose Level 90 MG/DL (74-106) Uric Acid 7.9 MG/DL (2.6-7.2) H Calcium Level 6.5 MG/DL (8.5-10.1) L Phosphorus Level 2.7 MG/DL (2.5-4.9) Magnesium Level 1.8 MG/DL (1.8-2.4) Total Bilirubin 0.6 MG/DL (0.2-1.0) Aspartate Amino Transf (AST/SGOT) 146 U/L (15-37) H Alanine Aminotransferase (ALT/SGPT) 28 U/L (12-78) Alkaline Phosphatase 127 U/L (46-116) H C-Reactive Protein, Quantitative > 70.0 mg/dL (0.00-0.90) H Pro-B-Type Natriuretic Peptide 2086 pg/mL (0-125) H Total Protein 5.0 G/DL (6.4-8.2) L Albumin 2.0 G/DL (3.4-5.0) L Globulin 3.0 g/dL Albumin/Globulin Ratio 0.7 (1.0-2.7) L Random Vancomycin Level 10.8 ug/mL Test 01/14/20 09:55 01/14/20 12:14 Ionized Calcium (Measured) 0.88 mmol/L (1.10-1.35) L POC Whole Blood Glucose 75 MG/DL (74-106) Microbiology Date/Time Source Procedure Growth Status 01/13/20 04:00 Sputum Gram Stain - Final Resulted 01/13/20 04:00 Sputum Sputum Culture Pending Resulted 01/11/20 18:00 Urine,Clean Catch Urine Culture - Preliminary NO GROWTH AFTER 24 HOURS Resulted Objective HEAD AND NECK: No JVD.NGT in place LUNGS: Coarse rhonchi. CARDIOVASCULAR: Regular S1 and S2 with no gallop. ABDOMEN: Soft. EXTREMITIES: No pitting edema. Kevin Lopez MD Jan 14, 2020 15:21
--- NOTE | 2020-01-14 17:11 | Pulmonology Progress Note ---
Subjective ROS Limited/Unobtainable: Yes Interval Events: Extubated yesterday Constitutional: Reports: no symptoms HEENT: Repors: no symptoms Respiratory: Reports: no symptoms Cardiovascular: Reports: no symptoms Gastrointestinal/Abdominal: Reports: no symptoms Genitourinary: Reports: no symptoms Allergies: Coded Allergies: No Known Allergies (Unverified , 03/18/19) All Systems: reviewed and negative except above Objective Last 24 Hour Vital Signs Date Time Temp Pulse Resp B/P (MAP) Pulse Ox O2 Delivery O2 Flow Rate FiO2 01/14/20 16:00 97.6 96 15 133/75 (94) 98 01/14/20 16:00 89 01/14/20 16:00 5.0 28 01/14/20 16:00 Venturi Mask 5.0 01/14/20 15:30 87 15 115/59 (77) 99 01/14/20 15:00 90 15 113/63 (80) 99 01/14/20 14:30 89 14 114/60 (78) 99 01/14/20 14:00 87 14 120/65 (83) 99 01/14/20 13:30 90 13 130/65 (86) 99 01/14/20 13:00 83 13 83/52 (62) 98 01/14/20 12:30 91 14 101/53 (69) 100 01/14/20 12:30 100 Cool Aerosol 5.0 28 01/14/20 12:09 113/67 01/14/20 12:00 Venturi Mask 5.0 01/14/20 12:00 92 01/14/20 12:00 5.0 28 01/14/20 12:00 97.5 89 18 113/67 (82) 99 01/14/20 11:30 91 16 125/68 (87) 100 01/14/20 11:00 93 21 119/69 (86) 100 01/14/20 10:30 94 16 134/68 (90) 100 01/14/20 10:15 93 15 149/73 (98) 99 01/14/20 10:00 77 13 105/58 (74) 99 01/14/20 09:30 76 15 137/76 (96) 100 01/14/20 09:00 79 13 115/61 (79) 100 01/14/20 08:30 87 16 127/65 (85) 97 01/14/20 08:00 Venturi Mask 10.0 01/14/20 08:00 10.0 40 01/14/20 08:00 97.7 85 16 125/65 (85) 100 01/14/20 08:00 93 01/14/20 07:30 100 Cool Aerosol 10.0 40 01/14/20 07:30 76 13 126/57 (80) 100 01/14/20 07:00 76 13 101/53 (69) 100 01/14/20 06:00 81 14 119/63 (81) 100 01/14/20 05:30 80 16 116/62 (80) 100 01/14/20 05:00 90 19 119/60 (79) 99 01/14/20 04:30 85 18 112/55 (74) 100 01/14/20 04:00 Venturi Mask 10.0 01/14/20 04:00 92 01/14/20 04:00 97.9 94 19 123/70 (87) 100 01/14/20 04:00 10.0 40 01/14/20 03:30 94 17 127/69 (88) 99 01/14/20 03:00 93 16 119/59 (79) 99 01/14/20 02:30 87 14 109/55 (73) 100 01/14/20 02:00 87 15 118/64 (82) 100 01/14/20 01:30 88 17 113/53 (73) 100 01/14/20 01:00 85 17 116/60 (78) 100 01/14/20 00:35 100 Cool Aerosol 10.0 40 01/14/20 00:30 89 16 118/63 (81) 100 01/14/20 00:00 Venturi Mask 10.0 01/14/20 00:00 10.0 40 01/14/20 00:00 92 01/14/20 00:00 97.8 89 16 112/59 (76) 100 01/13/20 23:30 90 17 122/59 (80) 100 01/13/20 23:00 85 16 112/61 (78) 100 01/13/20 22:30 86 15 122/57 (78) 100 01/13/20 22:00 90 17 117/60 (79) 100 01/13/20 21:30 93 20 130/61 (84) 100 01/13/20 21:17 112/61 01/13/20 21:00 82 14 112/61 (78) 100 01/13/20 20:30 93 17 125/68 (87) 100 01/13/20 20:00 94 01/13/20 20:00 97.9 90 17 125/56 (79) 100 01/13/20 20:00 Venturi Mask 10.0 01/13/20 20:00 10.0 40 01/13/20 19:30 93 17 123/61 (81) 100 01/13/20 19:05 100 Cool Aerosol 10.0 40 01/13/20 19:00 80 15 108/53 (71) 100 01/13/20 18:30 81 14 113/59 (77) 100 01/13/20 18:00 90 17 123/62 (82) 100 01/13/20 17:30 89 13 99/53 (68) 100 Intake and Output 01/13/20 01/14/20 19:00 07:00 Intake Total 1768.125 ml 1326.31 ml Output Total 650 ml 611 ml Balance 1118.125 ml 715.31 ml IV Total 1768.125 ml 1326.31 ml Output Urine Total 650 ml 610 ml Stool Total 1 ml # Bowel Movements 1 1 General Appearance: no acute distress HEENT: normocephalic Respiratory: chest wall non-tender, lungs clear Cardiovascular: normal peripheral pulses, normal rate Abdomen: normal bowel sounds Microbiology Date/Time Source Procedure Growth Status 01/13/20 04:00 Sputum Gram Stain - Final Resulted 01/13/20 04:00 Sputum Sputum Culture Pending Resulted 01/11/20 18:00 Urine,Clean Catch Urine Culture - Preliminary NO GROWTH AFTER 24 HOURS Resulted Laboratory Tests 01/13/20 20:48: POC Whole Blood Glucose 105 01/14/20 05:11: White Blood Count 6.9, Red Blood Count 3.28L, Hemoglobin 9.3L, Hematocrit 28.9L, Mean Corpuscular Volume 88, Mean Corpuscular Hemoglobin 28.3, Mean Corpuscular Hemoglobin Concent 32.1, Red Cell Distribution Width 20.8H, Platelet Count 49L, Mean Platelet Volume 7.7, Neutrophils (%) (Auto) , Lymphocytes (%) (Auto) , Monocytes (%) (Auto) , Eosinophils (%) (Auto) , Basophils (%) (Auto) , Differential Total Cells Counted 100, Neutrophils % (Manual) 68, Lymphocytes % (Manual) 19L, Monocytes % (Manual) 3, Eosinophils % (Manual) 0, Basophils % (Man ual) 0, Band Neutrophils 10H, Nucleated Red Blood Cells 1, Platelet Estimate DecreasedL, Platelet Morphology Normal, Polychromasia 1+, Hypochromasia 2+, Anisocytosis 2+, Sodium Level 142, Potassium Level 2.9L, Chloride Level 107, Carbon Dioxide Level 23, Anion Gap 13, Blood Urea Nitrogen 33H, Creatinine 2.5H, Estimat Glomerular Filtration Rate 31.0, Glucose Level 90, Uric Acid 7.9H, Calcium Level 6.5L, Phosphorus Level 2.7, Magnesium Level 1.8, Total Bilirubin 0.6, Aspartate Amino Transf (AST/SGOT) 146H, Alanine Aminotransferase (ALT/SGPT) 28, Alkaline Phosphatase 127H, C-Reactive Protein, Quantitative > 70.0H, Pro-B-Type Natriuretic Peptide 2086H, Total Protein 5.0L, Albumin 2.0L, Globulin 3.0, Albumin/Globulin Ratio 0.7L, Random Vancomycin Level 10.8 01/14/20 05:22: POC Whole Blood Glucose 99 01/14/20 09:55: Ionized Calcium (Measured) 0.88L 01/14/20 12:14: POC Whole Blood Glucose 75 Current Medications Medications (Trade) Dose Ordered Sig/Jesse Route PRN Reason Start Time Stop Time Status Last Admin Dose Admin Acetaminophen (Tylenol) 650 mg Q4H PRN ORAL PRNH/TEMP 01/05/20 20:15 02/04/20 20:14 01/12/20 03:10 Albuterol/ Ipratropium (Albuterol/ Ipratropium) 3 ml Q4H PRN HHN Bronchospasm 01/10/20 18:56 01/15/20 18:55 Allopurinol (allopurinoL) 300 mg BID NG 01/09/20 18:00 02/06/20 14:14 01/14/20 08:34 Aluminum Hydroxide (Amphojel) 1,920 mg Q8HR NG 01/13/20 14:00 02/10/20 09:59 01/14/20 14:13 Barium Sulfate (Varibar Honey) 250 ml NOW PRN MC RAD 01/14/20 11:45 01/17/20 11:31 Barium Sulfate (Varibar Dawn) 240 ml NOW PRN RAD 01/14/20 11:45 01/17/20 11:31 Barium Sulfate (Varibar Pudding) 230 ml NOW PRN RAD 01/14/20 11:45 01/17/20 11:31 Barium Sulfate (Varibar Thin Liquid powder) 148 gm NOW PRN RAD 01/14/20 11:45 01/17/20 11:31 Bisacodyl (Dulcolax) 10 mg DAILY PRN RECTAL Constipation 01/05/20 20:15 04/04/20 20:14 Calcium Gluconate/ Sodium Chloride 50 ml @ 50 mls/hr Q12HR IVPB 01/13/20 21:00 04/12/20 20:59 01/14/20 08:35 Cefepime HCl 1 gm/ Dextrose 55 ml @ 110 mls/hr Q24H IVPB 01/14/20 11:00 01/21/20 10:59 01/14/20 12:09 Chlorhexidine Gluconate (Navya-Hex 2%) 1 applic DAILY@2000 TOPIC 01/11/20 20:00 04/10/20 19:59 01/13/20 20:09 Dextrose (Dextrose 50%) 25 ml Q30M PRN IV Hypoglycemia 01/05/20 20:15 04/04/20 20:14 Dextrose (Dextrose 50%) 50 ml Q30M PRN IV Hypoglycemia 01/05/20 20:15 04/04/20 20:14 Dextrose/Sodium Chloride 1,000 ml @ 100 mls/hr Q10H IV 01/12/20 12:00 02/11/20 11:59 01/14/20 14:13 Docusate Sodium (Colace) 200 mg DAILY ORAL 01/06/20 09:00 02/05/20 08:59 01/14/20 08:34 Gadobutrol (Gadavist) 7.5 mmol NOW PRN IV Radiology Procedure 01/11/20 09:15 01/15/20 09:14 Linaclotide (Linzess) 290 mcg BEFORE BREAKFAST ORAL 01/10/20 06:30 04/09/20 06:29 01/11/20 05:33 Midodrine (Pro-Amatine) 10 mg THREE TIMES A DAY ORAL 01/14/20 18:00 04/13/20 17:59 Norepinephrine Bitartrate 250 ml @ 0 mls/hr Q24H IV 01/14/20 11:45 01/17/20 11:37 01/14/20 12:09 Ondansetron HCl (Zofran) 4 mg Q6H PRN IVP Nausea & Vomiting 01/10/20 06:30 02/09/20 06:29 Oxymetazoline HCl (Afrin Nasal [place]) 2 spray Q12HR PRN NASAL dry nasal passage 01/11/20 08:00 04/10/20 07:59 Pantoprazole (Protonix) 40 mg EVERY 12 HOURS IVP 01/05/20 21:00 02/04/20 20:59 01/14/20 08:34 Polyethylene Glycol (Miralax) 17 gm BEDTIME NG 01/11/20 21:00 02/08/20 20:59 Sennosides (Senokot) 8.6 mg QHS NG 01/11/20 21:00 02/04/20 20:59 01/13/20 20:35 Vancomycin HCl (Vanco pharmacy to dose) 1 ea DAILY PRN MISC Per rx protocol 01/12/20 14:45 02/11/20 14:44 Assessment/Plan Assessment/Plan IMPRESSION: 1. Severe metabolic acidosis. 2. Respiratory failure; now extubated 3. Diarrhea. 4. Acute renal failure. 5. Anemia DISCUSSION: Doing well on supplemental O2 Continue antibiotics, IV fluid hydration. Pressors prn Rectal tube Daxa Infante Omar Syed MD Jan 14, 2020 17:11
--- NOTE | 2020-01-14 17:23 | Surgery Progress Note ---
Surgery Progress Note Subjective Procedure Performed Right femoral temporary hemodialysis catheter insertion Additional Comments awake alert no n/v states okay heels noted with DTI h/h stable Objective Last 24 Hour Vital Signs Date Time Temp Pulse Resp B/P (MAP) Pulse Ox O2 Delivery O2 Flow Rate FiO2 01/14/20 17:00 94 16 99/56 (70) 100 01/14/20 16:30 95 18 99/56 (70) 100 01/14/20 16:00 97.6 96 15 133/75 (94) 98 01/14/20 16:00 89 01/14/20 16:00 5.0 28 01/14/20 16:00 Venturi Mask 5.0 01/14/20 15:30 87 15 115/59 (77) 99 01/14/20 15:00 90 15 113/63 (80) 99 01/14/20 14:30 89 14 114/60 (78) 99 01/14/20 14:00 87 14 120/65 (83) 99 01/14/20 13:30 90 13 130/65 (86) 99 01/14/20 13:00 83 13 83/52 (62) 98 01/14/20 12:30 91 14 101/53 (69) 100 01/14/20 12:30 100 Cool Aerosol 5.0 28 01/14/20 12:09 113/67 01/14/20 12:00 Venturi Mask 5.0 01/14/20 12:00 92 01/14/20 12:00 5.0 28 01/14/20 12:00 97.5 89 18 113/67 (82) 99 01/14/20 11:30 91 16 125/68 (87) 100 01/14/20 11:00 93 21 119/69 (86) 100 01/14/20 10:30 94 16 134/68 (90) 100 01/14/20 10:15 93 15 149/73 (98) 99 01/14/20 10:00 77 13 105/58 (74) 99 01/14/20 09:30 76 15 137/76 (96) 100 01/14/20 09:00 79 13 115/61 (79) 100 01/14/20 08:30 87 16 127/65 (85) 97 01/14/20 08:00 Venturi Mask 10.0 01/14/20 08:00 10.0 40 11/9/20 08:00 97.7 85 16 125/65 (85) 100 01/14/20 08:00 93 01/14/20 07:30 100 Cool Aerosol 10.0 40 01/14/20 07:30 76 13 126/57 (80) 100 01/14/20 07:00 76 13 101/53 (69) 100 01/14/20 06:00 81 14 119/63 (81) 100 01/14/20 05:30 80 16 116/62 (80) 100 01/14/20 05:00 90 19 119/60 (79) 99 01/14/20 04:30 85 18 112/55 (74) 100 01/14/20 04:00 Venturi Mask 10.0 01/14/20 04:00 92 01/14/20 04:00 97.9 94 19 123/70 (87) 100 01/14/20 04:00 10.0 40 01/14/20 03:30 94 17 127/69 (88) 99 01/14/20 03:00 93 16 119/59 (79) 99 01/14/20 02:30 87 14 109/55 (73) 100 01/14/20 02:00 87 15 118/64 (82) 100 01/14/20 01:30 88 17 113/53 (73) 100 01/14/20 01:00 85 17 116/60 (78) 100 01/14/20 00:35 100 Cool Aerosol 10.0 40 01/14/20 00:30 89 16 118/63 (81) 100 01/14/20 00:00 Venturi Mask 10.0 01/14/20 00:00 10.0 40 01/14/20 00:00 92 01/14/20 00:00 97.8 89 16 112/59 (76) 100 01/13/20 23:30 90 17 122/59 (80) 100 01/13/20 23:00 85 16 112/61 (78) 100 01/13/20 22:30 86 15 122/57 (78) 100 01/13/20 22:00 90 17 117/60 (79) 100 01/13/20 21:30 93 20 130/61 (84) 100 01/13/20 21:17 112/61 01/13/20 21:00 82 14 112/61 (78) 100 01/13/20 20:30 93 17 125/68 (87) 100 01/13/20 20:00 94 01/13/20 20:00 97.9 90 17 125/56 (79) 100 01/13/20 20:00 Venturi Mask 10.0 01/13/20 20:00 10.0 40 01/13/20 19:30 93 17 123/61 (81) 100 01/13/20 19:05 100 Cool Aerosol 10.0 40 01/13/20 19:00 80 15 108/53 (71) 100 01/13/20 18:30 81 14 113/59 (77) 100 01/13/20 18:00 90 17 123/62 (82) 100 01/13/20 17:30 89 13 99/53 (68) 100 I&O Intake and Output 01/13/20 01/14/20 19:00 07:00 Intake Total 1768.125 ml 1326.31 ml Output Total 650 ml 611 ml Balance 1118.125 ml 715.31 ml IV Total 1768.125 ml 1326.31 ml Output Urine Total 650 ml 610 ml Stool Total 1 ml # Bowel Movements 1 1 Cardiovascular: RSR Respiratory: decreased breath sounds Abdomen: non-tender, present bowel sounds Extremities: no tenderness, no cyanosis, other Laboratory Tests Test 01/13/20 20:48 01/14/20 05:11 01/14/20 05:22 01/14/20 09:55 POC Whole Blood Glucose 105 MG/DL (74-106) 99 MG/DL (74-106) White Blood Count 6.9 K/UL (4.8-10.8) Red Blood Count 3.28 M/UL (4.70-6.10) L Hemoglobin 9.3 G/DL (14.2-18.0) L Hematocrit 28.9 % (42.0-52.0) L Mean Corpuscular Volume 88 FL (80-99) Mean Corpuscular Hemoglobin 28.3 PG (27.0-31.0) Mean Corpuscular Hemoglobin Concent 32.1 G/DL (32.0-36.0) Red Cell Distribution Width 20.8 % (11.6-14.8) H Platelet Count 49 K/UL (150-450) L Mean Platelet Volume 7.7 FL (6.5-10.1) Neutrophils (%) (Auto) % (45.0-75.0) Lymphocytes (%) (Auto) % (20.0-45.0) Monocytes (%) (Auto) % (1.0-10.0) Eosinophils (%) (Auto) % (0.0-3.0) Basophils (%) (Auto) % (0.0-2.0) Differential Total Cells Counted 100 Neutrophils % (Manual) 68 % (45-75) Lymphocytes % (Manual) 19 % (20-45) L Monocytes % (Manual) 3 % (1-10) Eosinophils % (Manual) 0 % (0-3) Basophils % (Manual) 0 % (0-2) Band Neutrophils 10 % (0-8) H Nucleated Red Blood Cells 1 /100 WBC Platelet Estimate Decreased L Platelet Morphology Normal Polychromasia 1+ Hypochromasia 2+ Anisocytosis 2+ Sodium Level 142 MMOL/L (136-145) Potassium Level 2.9 MMOL/L (3.5-5.1) L Chloride Level 107 MMOL/L (98-107) Carbon Dioxide Level 23 MMOL/L (21-32) Anion Gap 13 mmol/L (5-15) Blood Urea Nitrogen 33 mg/dL (7-18) H Creatinine 2.5 MG/DL (0.55-1.30) H Estimat Glomerular Filtration Rate 31.0 mL/min (>60) Glucose Level 90 MG/DL (74-106) Uric Acid 7.9 MG/DL (2.6-7.2) H Calcium Level 6.5 MG/DL (8.5-10.1) L Phosphorus Level 2.7 MG/DL (2.5-4.9) Magnesium Level 1.8 MG/DL (1.8-2.4) Total Bilirubin 0.6 MG/DL (0.2-1.0) Aspartate Amino Transf (AST/SGOT) 146 U/L (15-37) H Alanine Aminotransferase (ALT/SGPT) 28 U/L (12-78) Alkaline Phosphatase 127 U/L (46-116) H C-Reactive Protein, Quantitative > 70.0 mg/dL (0.00-0.90) H Pro-B-Type Natriuretic Peptide 2086 pg/mL (0-125) H Total Protein 5.0 G/DL (6.4-8.2) L Albumin 2.0 G/DL (3.4-5.0) L Globulin 3.0 g/dL Albumin/Globulin Ratio 0.7 (1.0-2.7) L Random Vancomycin Level 10.8 ug/mL Ionized Calcium (Measured) 0.88 mmol/L (1.10-1.35) L Test 01/14/20 12:14 POC Whole Blood Glucose 75 MG/DL (74-106) Plan Problems: (1) Altered level of consciousness (2) Hypovolemic shock Assessment & Plan: resuscitation extubated monitor respiratory keep hob elevated supplemental O2 Gallbladder demonstrates sludge. No stones, wall thickening, nor pericholecystic fluid. Patient unable to report Wilson's sign Common bile duct measures 3 mm in diameter. No intrahepatic biliary ductal dilatation. Liver demonstrates coarsened echogenicity and surface nodularity. It demonstrates multiple cysts. Portal vein and hepatic veins are patent. The pancreas demonstrates 3 hypoechoic lesions in the head and body, measuring approximately 5 mm in diameter each. Spleen is unremarkable, poorly visualized. Left kidney measures 11.4 cm in length. Right kidney measures 11.3 cm length. Both kidneys demonstrate normal echogenicity. There is severe right and moderate left hydronephrosis. Echogenic foci are seen in the left renal sinus and collecting system. Bladder is empty, contains a Mathew catheter. Non-aneurysmal abdominal aorta . There are bilateral pleural effusions Impression: Bilateral right greater than left hydronephrosis, increased since prior study of 03/20/2019. Etiology not demonstrated Empty bladder with a Mathew catheter 3 hypoechoic lesions within the pancreatic head and body, each measuring about 5 mm. Appearance nonspecific. Recommend further evaluation with pancreas protocol MRI Bilateral pleural effusions Echogenic liver, consistent with hepatocellular disease. Surface likely nodularity raises concern for cirrhosis Gallbladder sludge. Negative for dilated bile ducts Probable nonobstructive left intrarenal calculi Multiple hepatic cysts (3) Lactic acid acidosis (4) Hypernatremia (5) Paraplegia (6) Anemia Assessment & Plan: no active bleeding noted no large hematoma dressings okay likely related to heme will monitor transfuse prbc with HD trend labs thank you (7) Diabetes (8) Weak (9) HTN (hypertension) (10) ARF (acute renal failure) (11) Hypercalcemia (12) Hyperuricemia (13) Dehydration (14) UTI (urinary tract infection) (15) Failure to thrive in adult Assessment & Plan: patient identified to have DTI on bilateral heels right with 5cm x 4cm area of dti not open no drainage no signs of infection left with 3cm x 2cm. pillow under leg optifoam dressings nutritional optimization will follow no acute surgery DAILY ESTIMATED NEEDS: Needs based on underweight, suspected wt loss, HD, CRITICAL CARE/ 57.6kg 25-33 kcals/kg 0891-9621 total kcals 1.2-2 g protein/kg 69-115 g total protein 25-30 mL/kg 4414-8454 total fluid mLs NUTRITION DIAGNOSIS: *Increased kcal and pro needs r/t underweight status, suspected significant wt loss as evidenced by pt @ 71% IBW w/ BMI 17.2, underweight per guidelines, w/ suspected signficant wt loss of 30lbs/19% in 10 months. * Swallowing difficulty R/T dysphagia, respiratory status as evidenced by s/p NGT insertion (01/08), now NPO, s/p code blue (01/10), orally intubated. CURRENT TF:NPO ENTERAL NUTRITION RECOMMENDATIONS: WHEN HEMODYNAMICALLY STABLE: Nepro @ 40ml/hr x 24 hrs to provide 960ml, 1728kcal, 77g prot, 698ml free water WHEN HEMODYNAMICALLY STABLE AND MEDICALLY APPROPRIATE TO FEED: -> initiate TF @ 5ml/hr x 6hrs, advance slowly 5ml q 4-6 hrs as tolerated to goal rate -> HOB over 30 degrees/ water flush per MD WITHOUT HEMODYNAMIC STABILITY -> If medically appropriate to feed, rec trophic feeding of Nepro @ 5ml/hr x 24 hrs to maintain gut integrity Lázaro Jenkins Jan 14, 2020 17:23
[2020-01-14] MEDS ORDERED: Midodrine 10mg tab ORAL SCH (18:00)
[2020-01-14] MEDS: Sennosides 8.6mg tab NG SCH (20:14)
[2020-01-14] MEDS: Dyna-Hex 2% Top Sol 2oz TOPIC SCH (20:14)
[2020-01-14] MEDS: Miralax 17gm pkt NG SCH (20:15)
[2020-01-15] VITALS (25 sets, daily range): BP systolic 73–139; BP diastolic 44–84
[2020-01-15] MEDS: D5 1/2NS 1,000 ML IV SCH ×2 (00:56→10:10)
[2020-01-15 06:13] LABS: HEMATOCRIT 24.3 % (42.0-52.0); HEMOGLOBIN 7.8 G/DL (14.2-18.0); MEAN CORPUSCULAR VOLUME 88 FL (80-99); PLATELET COUNT 46 K/UL (150-450); RED BLOOD COUNT 2.76 M/UL (4.70-6.10); RED CELL DISTRIBUTION WIDTH 20.4 % (11.6-14.8); WHITE BLOOD COUNT 7.5 K/UL (4.8-10.8)
[2020-01-15] MEDS: Aluminum Hydroxide Gel Susp 15ml NG SCH (06:19)
[2020-01-15 06:37] LABS: CALCIUM 6.5 MG/DL (8.5-10.1); CREATININE 1.9 MG/DL (0.55-1.30)
[2020-01-15 06:51] LABS: POTASSIUM 2.7 MMOL/L (3.5-5.1)
--- NOTE | 2020-01-15 07:03 | Hematology/Onc Progress Note ---
Assessment/Plan Assessment/Plan Assessment/Recs # Anemia of chronic disease due to underlying chronic medical issues, multifactorial v Gi bleed --> Anemia workup has been ordered, rule out gi bleed --> No evidence of hemolysis is noted, peripheral smear has been reviewed. --> Hgb goal >7. Transfuse prn. --> Epogen or iron at this time is not particularly indicated --> Medications have been reviewed --> low threshold for gi evaluation in case has occult + --> hgb 10-->9.7-->9.2->10-->8.6-->7.7-->5-->8.3->9.3->7.8 --> 11 flow cytometry ordered bc of nucleated cells on smear # Thrombocytopenia ongoing, worsened since adm --> plt 150-->98-->82-->51->49-->46 --> hep and hiv panel--NEG --> us abd-->shows 3 small lesions, requires further eval # Multiple lesions noted in pancreas --> MRI abd ordered # Protein caloric malnutrition --> daily calorie counts --> daily weights --> mirtazapine started # Acute renal failure --> continue on ivfs --> as per renal # Hypokalemia --> replete with K # Severe dehydration --> ivfs ongoing # Hypernatremia indicative of severe water deficit # Severe hyperuricemia, partly due to dehydration and renal failure # Acute metabolic and toxic encephalopathy # Mild, malnutrition # Psych issues per psych # Lactic acid, possible sepsis # Dvt ppx heparin sq->Scds The timing of this note does not necessarily reflect the time of the patient was seen. Greatly appreciate consultation. Subjective HEENT: Denies: no symptoms, eye pain, blurred vision, tearing, double vision, ear pain, ear discharge, nose pain, nose congestion, throat pain, throat swelling, mouth pain, mouth swelling, other Cardiovascular: Denies: no symptoms, chest pain, edema, irregular heart rate, lightheadedness, palpitations, syncope, other Respiratory: Denies: no symptoms, cough, shortness of breath, SOB with excertion, SOB at rest, sputum, wheezing, other Gastrointestinal/Abdominal: Denies: no symptoms, abdomen distended, abdominal pain, black stools, tarry stools, blood in stool, constipated, diarrhea, difficulty swallowing, nausea, poor appetite, poor fluid intake, rectal bleeding, vomiting, other Genitourinary: Denies: no symptoms, burning, discharge, frequency, flank pain, hematuria, incontinence, pain, urgency, other Neurologic/Psychiatric: Denies: no symptoms, anxiety, depressed, emotional problems, headache, numbness, paresthesia, pre-existing deficit, seizure, tingling, tremors, weakness, other Endocrine: Denies: no symptoms, excessive sweating, flushing, intolerance to cold, intolerance to heat, increased hunger, increased thirst, increased urine, unexplained weight gain, unexplained weight loss, other Allergies: Coded Allergies: No Known Allergies (Unverified , 03/18/19) Subjective 01/07 meds noted, no bleeding, hgb 10, no hemolysis, hgb 10.1 01/08 labs reviewed, vi rn, no major events, no bleeding, hgb lower 01/09 labs noted, no bleeding, vi rn, no major changes, plt lower 01/10 did have epistaxis overnight, no bleeding, night sweats, epistaxis better 01/12 icu, remains on vent, levo, no bleeding, meds noted 01/13 remains in icu, no bleeding, on levo, no major changes 01/14 icu, is on 1l, restarints are off, no bleeding, no night sweats Objective Objective Current Medications Medications (Trade) Dose Ordered Sig/Jesse Route PRN Reason Start Time Stop Time Status Last Admin Dose Admin Acetaminophen (Tylenol) 650 mg Q4H PRN ORAL PRNH/TEMP 01/05/20 20:15 02/04/20 20:14 01/12/20 03:10 Albuterol/ Ipratropium (Albuterol/ Ipratropium) 3 ml Q4H PRN HHN Bronchospasm 01/10/20 18:56 01/15/20 18:55 Allopurinol (allopurinoL) 300 mg BID NG 01/09/20 18:00 02/06/20 14:14 01/14/20 17:50 Aluminum Hydroxide (Amphojel) 1,920 mg Q8HR NG 01/13/20 14:00 02/10/20 09:59 01/15/20 06:19 Barium Sulfate (Varibar Honey) 250 ml NOW PRN MC RAD 01/14/20 11:45 01/17/20 11:31 Barium Sulfate (Varibar [place]lo[place]a) 240 ml NOW PRN RAD 01/14/20 11:45 01/17/20 11:31 Barium Sulfate (Varibar Pudding) 230 ml NOW PRN RAD 01/14/20 11:45 01/17/20 11:31 Barium Sulfate (Varibar Thin Liquid powder) 148 gm NOW PRN RAD 01/14/20 11:45 01/17/20 11:31 Bisacodyl (Dulcolax) 10 mg DAILY PRN RECTAL Constipation 01/05/20 20:15 04/04/20 20:14 Calcium Gluconate/ Sodium Chloride 50 ml @ 50 mls/hr Q12HR IVPB 01/13/20 21:00 04/12/20 20:59 01/14/20 20:14 Cefepime HCl 1 gm/ Dextrose 55 ml @ 110 mls/hr Q24H IVPB 01/14/20 11:00 01/21/20 10:59 01/14/20 12:09 Chlorhexidine Gluconate (Navya-Hex 2%) 1 applic DAILY@2000 TOPIC 01/11/20 20:00 04/10/20 19:59 01/14/20 20:14 Dextrose (Dextrose 50%) 25 ml Q30M PRN IV Hypoglycemia 01/05/20 20:15 04/04/20 20:14 Dextrose (Dextrose 50%) 50 ml Q30M PRN IV Hypoglycemia 01/05/20 20:15 04/04/20 20:14 Dextrose/Sodium Chloride 1,000 ml @ 100 mls/hr Q10H IV 01/12/20 12:00 02/11/20 11:59 01/15/20 00:56 Docusate Sodium (Colace) 200 mg DAILY ORAL 01/06/20 09:00 02/05/20 08:59 01/14/20 08:34 Gadobutrol (Gadavist) 7.5 mmol NOW PRN IV Radiology Procedure 01/11/20 09:15 01/15/20 09:14 Linaclotide (Linzess) 290 mcg BEFORE BREAKFAST ORAL 01/10/20 06:30 04/09/20 06:29 01/15/20 06:19 Midodrine (Pro-Amatine) 10 mg THREE TIMES A DAY ORAL 01/14/20 18:00 04/13/20 17:59 01/14/20 17:50 Norepinephrine Bitartrate 250 ml @ 0 mls/hr Q24H IV 01/14/20 11:45 01/17/20 11:37 01/14/20 12:09 Ondansetron HCl (Zofran) 4 mg Q6H PRN IVP Nausea & Vomiting 01/10/20 06:30 02/09/20 06:29 Oxymetazoline HCl (Afrin Nasal [place]) 2 spray Q12HR PRN NASAL dry nasal passage 01/11/20 08:00 04/10/20 07:59 Pantoprazole (Protonix) 40 mg EVERY 12 HOURS IVP 01/05/20 21:00 02/04/20 20:59 01/14/20 20:14 Polyethylene Glycol (Miralax) 17 gm BEDTIME NG 01/11/20 21:00 02/08/20 20:59 Sennosides (Senokot) 8.6 mg QHS NG 01/11/20 21:00 02/04/20 20:59 01/14/20 20:14 Vancomycin HCl (Vanco pharmacy to dose) 1 ea DAILY PRN MISC Per rx protocol 01/12/20 14:45 02/11/20 14:44 Last 24 Hour Vital Signs Date Time Temp Pulse Resp B/P (MAP) Pulse Ox O2 Delivery O2 Flow Rate FiO2 01/15/20 05:00 89 14 110/56 (74) 99 01/15/20 04:00 1.0 01/15/20 04:00 Venturi Mask 5.0 01/15/20 04:00 98.0 89 15 104/57 (73) 99 01/15/20 04:00 1.0 01/15/20 03:00 91 15 103/56 (72) 100 01/15/20 02:00 91 14 110/61 (77) 99 01/15/20 01:00 92 15 117/62 (80) 99 01/15/20 00:00 Venturi Mask 5.0 01/15/20 00:00 2.0 01/15/20 00:00 91 15 111/57 (75) 99 01/14/20 23:00 73 13 87/49 (62) 100 01/14/20 22:00 90 15 125/63 (83) 99 01/14/20 21:00 76 13 97/51 (66) 100 01/14/20 20:23 93 01/14/20 20:00 Venturi Mask 5.0 01/14/20 20:00 97.1 91 17 113/63 (80) 100 01/14/20 20:00 5.0 28 01/14/20 19:48 89 16 99 Nasal Cannula 2.0 28 01/14/20 19:48 99 Nasal Cannula 2.0 28 01/14/20 19:00 91 16 104/63 (77) 100 01/14/20 18:00 93 15 98/53 (68) 100 01/14/20 17:30 98 15 111/65 (80) 100 01/14/20 17:30 92 15 98/53 (68) 100 01/14/20 17:00 94 16 99/56 (70) 100 01/14/20 16:30 95 18 99/56 (70) 100 01/14/20 16:00 97.6 96 15 133/75 (94) 98 01/14/20 16:00 89 01/14/20 16:00 5.0 28 01/14/20 16:00 Venturi Mask 5.0 01/14/20 15:30 87 15 115/59 (77) 99 01/14/20 15:00 90 15 113/63 (80) 99 01/14/20 14:30 89 14 114/60 (78) 99 01/14/20 14:00 87 14 120/65 (83) 99 01/14/20 13:30 90 13 130/65 (86) 99 01/14/20 13:00 83 13 83/52 (62) 98 01/14/20 12:30 91 14 101/53 (69) 100 01/14/20 12:30 100 Cool Aerosol 5.0 28 01/14/20 12:09 113/67 01/14/20 12:00 Venturi Mask 5.0 01/14/20 12:00 92 01/14/20 12:00 5.0 28 01/14/20 12:00 97.5 89 18 113/67 (82) 99 01/14/20 11:30 91 16 125/68 (87) 100 11/9/20 11:00 93 21 119/69 (86) 100 01/14/20 10:30 94 16 134/68 (90) 100 01/14/20 10:15 93 15 149/73 (98) 99 01/14/20 10:00 77 13 105/58 (74) 99 01/14/20 09:30 76 15 137/76 (96) 100 01/14/20 09:00 79 13 115/61 (79) 100 01/14/20 08:30 87 16 127/65 (85) 97 01/14/20 08:00 Venturi Mask 10.0 01/14/20 08:00 10.0 40 01/14/20 08:00 97.7 85 16 125/65 (85) 100 01/14/20 08:00 93 01/14/20 07:30 100 Cool Aerosol 10.0 40 01/14/20 07:30 76 13 126/57 (80) 100 01/14/20 07:00 76 13 101/53 (69) 100 01/14/20 06:00 81 14 119/63 (81) 100 01/14/20 05:30 80 16 116/62 (80) 100 01/14/20 05:00 90 19 119/60 (79) 99 01/14/20 04:30 85 18 112/55 (74) 100 01/14/20 04:00 Venturi Mask 10.0 01/14/20 04:00 92 01/14/20 04:00 97.9 94 19 123/70 (87) 100 01/14/20 04:00 10.0 40 01/14/20 03:30 94 17 127/69 (88) 99 01/14/20 03:00 93 16 119/59 (79) 99 01/14/20 02:30 87 14 109/55 (73) 100 01/14/20 02:00 87 15 118/64 (82) 100 01/14/20 01:30 88 17 113/53 (73) 100 01/14/20 01:00 85 17 116/60 (78) 100 01/14/20 00:35 100 Cool Aerosol 10.0 40 01/14/20 00:30 89 16 118/63 (81) 100 01/14/20 00:00 Venturi Mask 10.0 01/14/20 00:00 10.0 40 01/14/20 00:00 92 01/14/20 00:00 97.8 89 16 112/59 (76) 100 01/13/20 23:30 90 17 122/59 (80) 100 01/13/20 23:00 85 16 112/61 (78) 100 01/13/20 22:30 86 15 122/57 (78) 100 01/13/20 22:00 90 17 117/60 (79) 100 01/13/20 21:30 93 20 130/61 (84) 100 01/13/20 21:17 112/61 01/13/20 21:00 82 14 112/61 (78) 100 01/13/20 20:30 93 17 125/68 (87) 100 01/13/20 20:00 94 01/13/20 20:00 97.9 90 17 125/56 (79) 100 01/13/20 20:00 Venturi Mask 10.0 01/13/20 20:00 10.0 40 01/13/20 19:30 93 17 123/61 (81) 100 01/13/20 19:05 100 Cool Aerosol 10.0 40 01/13/20 19:00 80 15 108/53 (71) 100 01/13/20 18:30 81 14 113/59 (77) 100 01/13/20 18:00 90 17 123/62 (82) 100 01/13/20 17:30 89 13 99/53 (68) 100 01/13/20 17:00 Venturi Mask 10.0 01/13/20 17:00 89 16 99/58 (72) 100 01/13/20 16:30 98.2 100 21 126/62 (83) 100 01/13/20 16:00 Venturi Mask 10.0 01/13/20 16:00 97 19 119/64 (82) 100 01/13/20 15:34 98 01/13/20 15:30 98 18 120/69 (86) 100 01/13/20 15:00 92 19 120/64 (82) 100 01/13/20 14:30 97 17 121/69 (86) 100 01/13/20 14:00 92 16 126/64 (84) 100 01/13/20 13:30 91 18 113/60 (77) 100 01/13/20 13:10 100 01/13/20 13:10 Venturi Mask 10.0 40 01/13/20 13:10 Venturi Mask 10.0 01/13/20 13:10 10.0 40 01/13/20 13:10 100 Cool Aerosol 10.0 40 01/13/20 13:00 86 19 102/51 (68) 100 01/13/20 12:45 86 18 101/52 (68) 100 01/13/20 12:30 90 17 109/56 (73) 100 01/13/20 12:15 103 21 115/63 (80) 100 01/13/20 12:00 Mechanical Ventilator 01/13/20 12:00 98.5 87 19 86/44 (58) 100 01/13/20 11:57 88 01/13/20 11:30 94 18 99/52 (68) 100 01/13/20 11:01 116 27 30 01/13/20 11:00 116 25 122/61 (81) 100 01/13/20 11:00 30 01/13/20 10:45 118 24 139/75 (96) 92 01/13/20 10:30 118 28 149/60 (89) 84 01/13/20 10:15 112 20 141/74 (96) 95 01/13/20 10:00 98 21 144/66 (92) 97 01/13/20 09:45 91 16 138/65 (89) 98 01/13/20 09:30 89 16 88/47 (61) 99 01/13/20 09:05 93 20 30 01/13/20 09:00 88 16 91/47 (62) 100 01/13/20 08:30 102 20 118/59 (78) 98 01/13/20 08:00 98.3 96 19 110/63 (79) 100 01/13/20 08:00 30 01/13/20 08:00 Mechanical Ventilator 01/13/20 07:58 94 01/13/20 07:30 88 15 103/66 (78) 99 Intake and Output 01/14/20 01/15/20 19:00 07:00 Intake Total 1760.25 ml 350 ml Output Total 785 ml 510 ml Balance 975.25 ml -160 ml Free Water 90 ml IV Total 1640.25 ml 350 ml Other 30 ml Output Urine Total 785 ml 510 ml # Bowel Movements 2 1 Labs Test 01/12/20 08:00 01/12/20 17:34 01/12/20 20:32 01/13/20 03:55 Arterial Blood pH 7.539 (7.350-7.450) Arterial Blood Partial Pressure CO2 30.3 mmHg (35.0-45.0) Arterial Blood Partial Pressure O2 77.7 mmHg (75.0-100.0) Arterial Blood HCO3 25.3 mmol/L (22.0-26.0) Arterial Blood Oxygen Saturation 95.7 % (95-100) Arterial Blood Base Excess 2.5 (-2-2) Asael Test Positive POC Whole Blood Glucose 94 MG/DL (74-106) White Blood Count 4.8 K/UL (4.8-10.8) Red Blood Count 2.94 M/UL (4.70-6.10) Hemoglobin 8.3 G/DL (14.2-18.0) Hematocrit 25.4 % (42.0-52.0) Mean Corpuscular Volume 86 FL (80-99) Mean Corpuscular Hemoglobin 28.3 PG (27.0-31.0) Mean Corpuscular Hemoglobin Concent 32.8 G/DL (32.0-36.0) Red Cell Distribution Width 20.5 % (11.6-14.8) Platelet Count 51 K/UL (150-450) Mean Platelet Volume 8.7 FL (6.5-10.1) Neutrophils (%) (Auto) % (45.0-75.0) Lymphocytes (%) (Auto) % (20.0-45.0) Monocytes (%) (Auto) % (1.0-10.0) Eosinophils (%) (Auto) % (0.0-3.0) Basophils (%) (Auto) % (0.0-2.0) Differential Total Cells Counted 100 Neutrophils % (Manual) 61 % (45-75) Lymphocytes % (Manual) 21 % (20-45) Monocytes % (Manual) 5 % (1-10) Eosinophils % (Manual) 0 % (0-3) Basophils % (Manual) 0 % (0-2) Metamyelocytes % 1 % (0-0) Band Neutrophils 12 % (0-8) Nucleated Red Blood Cells 7 /100 WBC Platelet Estimate Decreased Platelet Morphology Normal Polychromasia 1+ Hypochromasia 1+ Anisocytosis 2+ Sodium Level 143 MMOL/L (136-145) Potassium Level 2.9 MMOL/L (3.5-5.1) Chloride Level 105 MMOL/L (98-107) Carbon Dioxide Level 25 MMOL/L (21-32) Anion Gap 13 mmol/L (5-15) Blood Urea Nitrogen 42 mg/dL (7-18) Creatinine 2.8 MG/DL (0.55-1.30) Estimat Glomerular Filtration Rate 27.3 mL/min (>60) Glucose Level 110 MG/DL (74-106) Uric Acid 9.2 MG/DL (2.6-7.2) Calcium Level 6.4 MG/DL (8.5-10.1) Phosphorus Level 3.2 MG/DL (2.5-4.9) Magnesium Level 1.6 MG/DL (1.8-2.4) Total Bilirubin 0.7 MG/DL (0.2-1.0) Aspartate Amino Transf (AST/SGOT) 256 U/L (15-37) Alanine Aminotransferase (ALT/SGPT) 29 U/L (12-78) Alkaline Phosphatase 121 U/L (46-116) C-Reactive Protein, Quantitative 39.2 mg/dL (0.00-0.90) Total Protein 4.7 G/DL (6.4-8.2) Albumin 2.0 G/DL (3.4-5.0) Globulin 2.7 g/dL Albumin/Globulin Ratio 0.7 (1.0-2.7) Test 01/13/20 06:00 01/13/20 07:37 01/13/20 11:38 01/13/20 12:09 POC Whole Blood Glucose 111 MG/DL (74-106) Arterial Blood pH 7.552 (7.350-7.450) 7.563 (7.350-7.450) Arterial Blood Partial Pressure CO2 26.8 mmHg (35.0-45.0) 24.1 mmHg (35.0-45.0) Arterial Blood Partial Pressure O2 80.8 mmHg (75.0-100.0) 74.0 mmHg (75.0-100.0) Arterial Blood HCO3 23.0 mmol/L (22.0-26.0) 21.2 mmol/L (22.0-26.0) Arterial Blood Oxygen Saturation 96.0 % (95-100) 95.2 % (95-100) Arterial Blood Base Excess 1.2 (-2-2) -0.3 (-2-2) Asael Test Positive Positive Test 01/13/20 16:48 01/13/20 20:48 01/14/20 05:11 01/14/20 05:22 POC Whole Blood Glucose 105 MG/DL (74-106) 99 MG/DL (74-106) White Blood Count 6.9 K/UL (4.8-10.8) Red Blood Count 3.28 M/UL (4.70-6.10) Hemoglobin 9.3 G/DL (14.2-18.0) Hematocrit 28.9 % (42.0-52.0) Mean Corpuscular Volume 88 FL (80-99) Mean Corpuscular Hemoglobin 28.3 PG (27.0-31.0) Mean Corpuscular Hemoglobin Concent 32.1 G/DL (32.0-36.0) Red Cell Distribution Width 20.8 % (11.6-14.8) Platelet Count 49 K/UL (150-450) Mean Platelet Volume 7.7 FL (6.5-10.1) Neutrophils (%) (Auto) % (45.0-75.0) Lymphocytes (%) (Auto) % (20.0-45.0) Monocytes (%) (Auto) % (1.0-10.0) Eosinophils (%) (Auto) % (0.0-3.0) Basophils (%) (Auto) % (0.0-2.0) Differential Total Cells Counted 100 Neutrophils % (Manual) 68 % (45-75) Lymphocytes % (Manual) 19 % (20-45) Monocytes % (Manual) 3 % (1-10) Eosinophils % (Manual) 0 % (0-3) Basophils % (Manual) 0 % (0-2) Band Neutrophils 10 % (0-8) Nucleated Red Blood Cells 1 /100 WBC Platelet Estimate Decreased Platelet Morphology Normal Polychromasia 1+ Hypochromasia 2+ Anisocytosis 2+ Sodium Level 142 MMOL/L (136-145) Potassium Level 2.9 MMOL/L (3.5-5.1) Chloride Level 107 MMOL/L (98-107) Carbon Dioxide Level 23 MMOL/L (21-32) Anion Gap 13 mmol/L (5-15) Blood Urea Nitrogen 33 mg/dL (7-18) Creatinine 2.5 MG/DL (0.55-1.30) Estimat Glomerular Filtration Rate 31.0 mL/min (>60) Glucose Level 90 MG/DL (74-106) Uric Acid 7.9 MG/DL (2.6-7.2) Calcium Level 6.5 MG/DL (8.5-10.1) Phosphorus Level 2.7 MG/DL (2.5-4.9) Magnesium Level 1.8 MG/DL (1.8-2.4) Total Bilirubin 0.6 MG/DL (0.2-1.0) Aspartate Amino Transf (AST/SGOT) 146 U/L (15-37) Alanine Aminotransferase (ALT/SGPT) 28 U/L (12-78) Alkaline Phosphatase 127 U/L (46-116) C-Reactive Protein, Quantitative > 70.0 mg/dL (0.00-0.90) Pro-B-Type Natriuretic Peptide 2086 pg/mL (0-125) Total Protein 5.0 G/DL (6.4-8.2) Albumin 2.0 G/DL (3.4-5.0) Globulin 3.0 g/dL Albumin/Globulin Ratio 0.7 (1.0-2.7) Random Vancomycin Level 10.8 ug/mL Test 01/14/20 09:55 01/14/20 12:14 01/14/20 16:44 01/15/20 05:40 Ionized Calcium (Measured) 0.88 mmol/L (1.10-1.35) POC Whole Blood Glucose 75 MG/DL (74-106) 85 MG/DL (74-106) White Blood Count 7.5 K/UL (4.8-10.8) Red Blood Count 2.76 M/UL (4.70-6.10) Hemoglobin 7.8 G/DL (14.2-18.0) Hematocrit 24.3 % (42.0-52.0) Mean Corpuscular Volume 88 FL (80-99) Mean Corpuscular Hemoglobin 28.4 PG (27.0-31.0) Mean Corpuscular Hemoglobin Concent 32.2 G/DL (32.0-36.0) Red Cell Distribution Width 20.4 % (11.6-14.8) Platelet Count 46 K/UL (150-450) Mean Platelet Volume 10.5 FL (6.5-10.1) Neutrophils (%) (Auto) % (45.0-75.0) Lymphocytes (%) (Auto) % (20.0-45.0) Monocytes (%) (Auto) % (1.0-10.0) Eosinophils (%) (Auto) % (0.0-3.0) Basophils (%) (Auto) % (0.0-2.0) Sodium Level 141 MMOL/L (136-145) Potassium Level 2.7 MMOL/L (3.5-5.1) Chloride Level 109 MMOL/L (98-107) Carbon Dioxide Level 20 MMOL/L (21-32) Anion Gap 11 mmol/L (5-15) Blood Urea Nitrogen 25 mg/dL (7-18) Creatinine 1.9 MG/DL (0.55-1.30) Estimat Glomerular Filtration Rate 42.5 mL/min (>60) Glucose Level 89 MG/DL (74-106) Calcium Level 6.5 MG/DL (8.5-10.1) Height (Feet): 6 Height (Inches): 0.00 Weight (Pounds): 150 Objective PE: Vitals: reviewed General Appearance: NAD HEENT: normocephalic, atraumatic Neck: non-tender, normal alignment Respiratory/Chest: nromal breath sounds bilaterally Cardiovascular/Chest: normal peripheral pulses, normal rate Abdomen: normal bowel sounds, soft, nontender Extremities: normal range of motion Samuel Son MD Jan 15, 2020 07:03
[2020-01-15 08:04] LABS: ALANINE AMINOTRANSFERASE 21 U/L (12-78); ALBUMIN 1.7 G/DL (3.4-5.0); ALKALINE PHOSPHATASE 99 U/L (46-116); ASPARTATE AMINO TRANSFERASE 81 U/L (15-37); BILIRUBIN,DIRECT 0.2 MG/DL (0.0-0.3); BILIRUBIN,TOTAL 0.4 MG/DL (0.2-1.0); PHOSPHORUS 2.4 MG/DL (2.5-4.9)
--- NOTE | 2020-01-15 08:05 | General Progress Note ---
Subjective ROS Limited/Unobtainable: No Allergies: Coded Allergies: No Known Allergies (Unverified , 03/18/19) Objective Last 24 Hour Vital Signs Date Time Temp Pulse Resp B/P (MAP) Pulse Ox O2 Delivery O2 Flow Rate FiO2 01/15/20 07:00 76 12 73/44 (54) 100 01/15/20 06:00 87 14 96/56 (69) 100 01/15/20 05:00 89 14 110/56 (74) 99 01/15/20 04:00 90 01/15/20 04:00 1.0 01/15/20 04:00 Venturi Mask 5.0 01/15/20 04:00 98.0 89 15 104/57 (73) 99 01/15/20 04:00 1.0 01/15/20 03:00 91 15 103/56 (72) 100 01/15/20 02:00 91 14 110/61 (77) 99 01/15/20 01:00 92 15 117/62 (80) 99 01/15/20 00:00 Venturi Mask 5.0 01/15/20 00:00 2.0 01/15/20 00:00 91 15 111/57 (75) 99 01/14/20 23:00 73 13 87/49 (62) 100 01/14/20 22:00 90 15 125/63 (83) 99 01/14/20 21:00 76 13 97/51 (66) 100 01/14/20 20:23 93 01/14/20 20:00 Venturi Mask 5.0 01/14/20 20:00 97.1 91 17 113/63 (80) 100 01/14/20 20:00 5.0 28 01/14/20 19:48 89 16 99 Nasal Cannula 2.0 28 01/14/20 19:48 99 Nasal Cannula 2.0 28 01/14/20 19:00 91 16 104/63 (77) 100 01/14/20 18:00 93 15 98/53 (68) 100 01/14/20 17:30 98 15 111/65 (80) 100 01/14/20 17:30 92 15 98/53 (68) 100 01/14/20 17:00 94 16 99/56 (70) 100 01/14/20 16:30 95 18 99/56 (70) 100 01/14/20 16:00 97.6 96 15 133/75 (94) 98 01/14/20 16:00 89 01/14/20 16:00 5.0 28 01/14/20 16:00 Venturi Mask 5.0 01/14/20 15:30 87 15 115/59 (77) 99 01/14/20 15:00 90 15 113/63 (80) 99 01/14/20 14:30 89 14 114/60 (78) 99 01/14/20 14:00 87 14 120/65 (83) 99 01/14/20 13:30 90 13 130/65 (86) 99 01/14/20 13:00 83 13 83/52 (62) 98 01/14/20 12:30 91 14 101/53 (69) 100 01/14/20 12:30 100 Cool Aerosol 5.0 28 01/14/20 12:09 113/67 01/14/20 12:00 Venturi Mask 5.0 01/14/20 12:00 92 01/14/20 12:00 5.0 28 01/14/20 12:00 97.5 89 18 113/67 (82) 99 01/14/20 11:30 91 16 125/68 (87) 100 01/14/20 11:00 93 21 119/69 (86) 100 01/14/20 10:30 94 16 134/68 (90) 100 01/14/20 10:15 93 15 149/73 (98) 99 01/14/20 10:00 77 13 105/58 (74) 99 01/14/20 09:30 76 15 137/76 (96) 100 01/14/20 09:00 79 13 115/61 (79) 100 01/14/20 08:30 87 16 127/65 (85) 97 Intake and Output 01/14/20 01/15/20 19:00 07:00 Intake Total 1760.25 ml 1250 ml Output Total 785 ml 600 ml Balance 975.25 ml 650 ml Free Water 90 ml IV Total 1640.25 ml 1250 ml Other 30 ml Output Urine Total 785 ml 600 ml # Bowel Movements 2 1 Laboratory Tests 01/14/20 09:55: Ionized Calcium (Measured) 0.88L 01/14/20 12:14: POC Whole Blood Glucose 75 01/14/20 16:44: POC Whole Blood Glucose 85 01/15/20 05:40: White Blood Count 7.5, Red Blood Count 2.76L, Hemoglobin 7.8L, Hematocrit 24.3L, Mean Corpuscular Volume 88, Mean Corpuscular Hemoglobin 28.4, Mean Corpuscular Hemoglobin Concent 32.2, Red Cell Distribution Width 20.4H, Platelet Count 46L, Mean Platelet Volume 10.5H, Neutrophils (%) (Auto) , Lymphocytes (%) (Auto) , Monocytes (%) (Auto) , Eosinophils (%) (Auto) , Basophils (%) (Auto) , Neutrophils % (Manual) [Pending], Lymphocytes % (Manual) [Pending], Platelet Estimate [Pending], Platelet Morphology [Pending], Sodium Level 141, Potassium Level 2.7*L, Chloride Level 109H, Carbon Dioxide Level 20L, Anion Gap 11, Blood Urea Nitrogen 25H, Creatinine 1.9H, Estimat Glomerular Filtration Rate 42.5, Glucose Level 89, Uric Acid [Pending], Calcium Level 6.5L, Phosphorus Level [Pending], Magnesium Level [Pending], Total Bilirubin [Pending], Direct Bilirubin [Pending], Aspartate Amino Transf (AST/SGOT) [Pending], Alanine Aminotransferase (ALT/SGPT) [Pending], Alkaline Phosphatase [Pending], Total Protein [Pending], Albumin [Pending] 01/15/20 07:16: POC Whole Blood Glucose 79 Height (Feet): 6 Height (Inches): 0.00 Weight (Pounds): 150 General Appearance: lethargic EENT: normal ENT inspection Neck: supple Cardiovascular: normal rate Respiratory/Chest: decreased breath sounds Abdomen: hypoactive bowel sounds Extremities: non-tender Assessment/Plan Status: unchanged Assessment/Plan: AMS dementia Anemia DM hyper CA elevated AST low albumin COPD RI HTN extubated NGTF for now repeat swallow eval GI procedures on hold fu nephrology and cardiology recs fu stool ob>>> neg bowel regimen cbc in am K replacement per nephrology Paulino Bueno MD Jan 15, 2020 08:05
[2020-01-15] MEDS: Calcium Gluconate 1gm/50ml 50 ML IVPB SCH ×3 (09:00→21:26)
[2020-01-15] MEDS: Docusate 100mg cap ORAL SCH (09:00)
[2020-01-15] MEDS ORDERED: Potassium Phosphate 15mm/250ml 250 ML IVPB SCH (09:00)
--- NOTE | 2020-01-15 09:02 | Nephrology Progress Note ---
Assessment/Plan Problem List: (1) ARF (acute renal failure) (2) Hypernatremia (3) Hypovolemic shock (4) Altered level of consciousness (5) Hypercalcemia (6) Hyperuricemia Assessment Acute renal failure Possible underlying chronic kidney failure Severe dehydration Hypernatremia indicative of severe water deficit Severe hyperuricemia, partly due to dehydration and renal failure Acute metabolic and toxic encephalopathy Mild, malnutrition Anemia Lactic acid, possible sepsis Hypercalcemia Plan January 14: Remains in ICU. Tolerating extubation. Labs reviewed. Abnormal electrolytes addressed. Serum creatinine lowering. Continue per current management. Stop Phos binders. Increase calcium IV. January 13: In ICU. Now extubated. Only dialyzed once. Urine output maintained. Serum creatinine down to 2.5. Patient has NG tube. Continue to monitor renal parameters. Continue per consultants. Abnormal electrolytes addressed. January 12: Remains in ICU. Intubated. Transfused yesterday. Abnormal electrolytes addressed. Dialyzed once January 10. Serum creatinine stable. Will adjust IV fluid. Monitor renal parameters. Dialysis as needed. Calcium gluconate IV ordered. Ionized calcium level ordered with tomorrow's labs. January 11: Patient in ICU. Intubated. On Levophed. Hemoglobin low. Due for transfusion. Electrolyte abnormalities noted and addressed. Patient was dialyzed yesterday. Will check lab tomorrow. Dialysis as needed. Discussed with SELIN Srivastava. January 10: Patient is doing poorly. Blood pressure low. ABG abnormal with metabolic acidosis. IV sodium bicarb given. Serum creatinine reno. Patient has acute renal failure. Nontunneled dialysis catheter replacement ordered.. Patient need life saving dialysis treatment SRINIVAS. January 09: Labs reviewed. IV D5 and a half with sodium bicarb initiated. Serum creatinine higher. Continue to monitor renal parameters. NG feeding was changed to Nepro. Patient remains full code. Poor prognosis. January 08: Labs reviewed. IV D5W discontinued. 500 cc 3% saline ordered. NG tube for feeding and for medications. Allopurinol dose increased. Continue to monitor renal parameters serum calcium and phosphorus. January 07: Labs reviewed. Serum calcium remains elevated. Uric acid still elevated. Will give pamidronate 60 mg IV piggyback once for hypercalcemia. Continue to monitor renal parameters. Continue D5W 150 cc an hour. Start Bicitra 30 cc p.o. every 6 hours. Add allopurinol D5W IV hydration Albumin bolus N.p.o. until able to take p.o. Antibiotics Monitor renal parameters monitor calcium, monitor uric acid Subjective ROS Limited/Unobtainable: No Constitutional: Reports: malaise Objective Objective Last 24 Hour Vital Signs Date Time Temp Pulse Resp B/P (MAP) Pulse Ox O2 Delivery O2 Flow Rate FiO2 01/15/20 07:00 76 12 73/44 (54) 100 01/15/20 06:00 87 14 96/56 (69) 100 01/15/20 05:00 89 14 110/56 (74) 99 01/15/20 04:00 90 01/15/20 04:00 1.0 01/15/20 04:00 Venturi Mask 5.0 01/15/20 04:00 98.0 89 15 104/57 (73) 99 01/15/20 04:00 1.0 01/15/20 03:00 91 15 103/56 (72) 100 01/15/20 02:00 91 14 110/61 (77) 99 01/15/20 01:00 92 15 117/62 (80) 99 01/15/20 00:00 Venturi Mask 5.0 01/15/20 00:00 2.0 01/15/20 00:00 91 15 111/57 (75) 99 01/14/20 23:00 73 13 87/49 (62) 100 01/14/20 22:00 90 15 125/63 (83) 99 01/14/20 21:00 76 13 97/51 (66) 100 01/14/20 20:23 93 01/14/20 20:00 Venturi Mask 5.0 01/14/20 20:00 97.1 91 17 113/63 (80) 100 01/14/20 20:00 5.0 28 01/14/20 19:48 89 16 99 Nasal Cannula 2.0 28 01/14/20 19:48 99 Nasal Cannula 2.0 28 01/14/20 19:00 91 16 104/63 (77) 100 01/14/20 18:00 93 15 98/53 (68) 100 01/14/20 17:30 98 15 111/65 (80) 100 01/14/20 17:30 92 15 98/53 (68) 100 01/14/20 17:00 94 16 99/56 (70) 100 01/14/20 16:30 95 18 99/56 (70) 100 01/14/20 16:00 97.6 96 15 133/75 (94) 98 01/14/20 16:00 89 01/14/20 16:00 5.0 28 01/14/20 16:00 Venturi Mask 5.0 01/14/20 15:30 87 15 115/59 (77) 99 01/14/20 15:00 90 15 113/63 (80) 99 01/14/20 14:30 89 14 114/60 (78) 99 01/14/20 14:00 87 14 120/65 (83) 99 01/14/20 13:30 90 13 130/65 (86) 99 01/14/20 13:00 83 13 83/52 (62) 98 01/14/20 12:30 91 14 101/53 (69) 100 01/14/20 12:30 100 Cool Aerosol 5.0 28 01/14/20 12:09 113/67 01/14/20 12:00 Venturi Mask 5.0 01/14/20 12:00 92 01/14/20 12:00 5.0 28 01/14/20 12:00 97.5 89 18 113/67 (82) 99 01/14/20 11:30 91 16 125/68 (87) 100 01/14/20 11:00 93 21 119/69 (86) 100 01/14/20 10:30 94 16 134/68 (90) 100 01/14/20 10:15 93 15 149/73 (98) 99 01/14/20 10:00 77 13 105/58 (74) 99 01/14/20 09:30 76 15 137/76 (96) 100 Intake and Output 01/14/20 01/15/20 19:00 07:00 Intake Total 1760.25 ml 1250 ml Output Total 785 ml 600 ml Balance 975.25 ml 650 ml Free Water 90 ml IV Total 1640.25 ml 1250 ml Other 30 ml Output Urine Total 785 ml 600 ml # Bowel Movements 2 1 Laboratory Tests 01/14/20 09:55: Ionized Calcium (Measured) 0.88L 01/14/20 12:14: POC Whole Blood Glucose 75 01/14/20 16:44: POC Whole Blood Glucose 85 01/15/20 05:40: White Blood Count 7.5, Red Blood Count 2.76L, Hemoglobin 7.8L, Hematocrit 24.3L, Mean Corpuscular Volume 88, Mean Corpuscular Hemoglobin 28.4, Mean Corpuscular Hemoglobin Concent 32.2, Red Cell Distribution Width 20.4H, Platelet Count 46L, Mean Platelet Volume 10.5H, Neutrophils (%) (Auto) , Lymphocytes (%) (Auto) , Monocytes (%) (Auto) , Eosinophils (%) (Auto) , Basophils (%) (Auto) , Neutrophils % (Manual) [Pending], Lymphocytes % (Manual) [Pending], Platelet Estimate [Pending], Platelet Morphology [Pending], Sodium Level 141, Potassium Level 2.7*L, Chloride Level 109H, Carbon Dioxide Level 20L, Anion Gap 11, Blood Urea Nitrogen 25H, Creatinine 1.9H, Estimat Glomerular Filtration Rate 42.5, Glucose Level 89, Uric Acid 6.4, Calcium Level 6.5L, Phosphorus Level 2.4L, Magnesium Level 1.6L, Total Bilirubin 0.4, Direct Bilirubin 0.2, Aspartate Amino Transf (AST/SGOT) 81H, Alanine Aminotransferase (ALT/SGPT) 21, Alkaline Phosphatase 99, Total Protein 4.6L, Albumin 1.7L 01/15/20 07:16: POC Whole Blood Glucose 79 Height (Feet): 6 Height (Inches): 0.00 Weight (Pounds): 150 General Appearance: no apparent distress EENT: other - On Venturi mask Cardiovascular: normal rate Respiratory/Chest: decreased breath sounds Abdomen: soft Dhiraj Biswas MD Jan 15, 2020 09:02
[2020-01-15] MEDS: Pantoprazole Inj IVP SCH ×2 (09:10→20:41)
--- NOTE | 2020-01-15 09:27 | Pulmonology Progress Note ---
Subjective ROS Limited/Unobtainable: No Interval Events: On nasal o2 Constitutional: Reports: no symptoms HEENT: Repors: no symptoms Respiratory: Reports: no symptoms Cardiovascular: Reports: no symptoms Gastrointestinal/Abdominal: Reports: no symptoms Genitourinary: Reports: no symptoms Allergies: Coded Allergies: No Known Allergies (Unverified , 03/18/19) All Systems: reviewed and negative except above Objective Last 24 Hour Vital Signs Date Time Temp Pulse Resp B/P (MAP) Pulse Ox O2 Delivery O2 Flow Rate FiO2 01/15/20 07:40 96 16 100 Nasal Cannula 2.0 28 01/15/20 07:40 100 Nasal Cannula 2.0 28 01/15/20 07:00 76 12 73/44 (54) 100 01/15/20 06:00 87 14 96/56 (69) 100 01/15/20 05:00 89 14 110/56 (74) 99 01/15/20 04:00 90 01/15/20 04:00 1.0 01/15/20 04:00 Venturi Mask 5.0 01/15/20 04:00 98.0 89 15 104/57 (73) 99 01/15/20 04:00 1.0 01/15/20 03:00 91 15 103/56 (72) 100 01/15/20 02:00 91 14 110/61 (77) 99 01/15/20 01:00 92 15 117/62 (80) 99 01/15/20 00:00 Venturi Mask 5.0 01/15/20 00:00 2.0 01/15/20 00:00 91 15 111/57 (75) 99 01/14/20 23:00 73 13 87/49 (62) 100 01/14/20 22:00 90 15 125/63 (83) 99 01/14/20 21:00 76 13 97/51 (66) 100 01/14/20 20:23 93 01/14/20 20:00 Venturi Mask 5.0 01/14/20 20:00 97.1 91 17 113/63 (80) 100 01/14/20 20:00 5.0 28 01/14/20 19:48 89 16 99 Nasal Cannula 2.0 28 01/14/20 19:48 99 Nasal Cannula 2.0 28 01/14/20 19:00 91 16 104/63 (77) 100 01/14/20 18:00 93 15 98/53 (68) 100 01/14/20 17:30 98 15 111/65 (80) 100 01/14/20 17:30 92 15 98/53 (68) 100 01/14/20 17:00 94 16 99/56 (70) 100 01/14/20 16:30 95 18 99/56 (70) 100 01/14/20 16:00 97.6 96 15 133/75 (94) 98 01/14/20 16:00 89 01/14/20 16:00 5.0 28 01/14/20 16:00 Venturi Mask 5.0 01/14/20 15:30 87 15 115/59 (77) 99 01/14/20 15:00 90 15 113/63 (80) 99 01/14/20 14:30 89 14 114/60 (78) 99 01/14/20 14:00 87 14 120/65 (83) 99 01/14/20 13:30 90 13 130/65 (86) 99 01/14/20 13:00 83 13 83/52 (62) 98 01/14/20 12:30 91 14 101/53 (69) 100 01/14/20 12:30 100 Cool Aerosol 5.0 28 01/14/20 12:09 113/67 01/14/20 12:00 Venturi Mask 5.0 01/14/20 12:00 92 01/14/20 12:00 5.0 28 01/14/20 12:00 97.5 89 18 113/67 (82) 99 01/14/20 11:30 91 16 125/68 (87) 100 01/14/20 11:00 93 21 119/69 (86) 100 01/14/20 10:30 94 16 134/68 (90) 100 01/14/20 10:15 93 15 149/73 (98) 99 01/14/20 10:00 77 13 105/58 (74) 99 01/14/20 09:30 76 15 137/76 (96) 100 Intake and Output 01/14/20 01/15/20 19:00 07:00 Intake Total 1760.25 ml 1250 ml Output Total 785 ml 600 ml Balance 975.25 ml 650 ml Free Water 90 ml IV Total 1640.25 ml 1250 ml Other 30 ml Output Urine Total 785 ml 600 ml # Bowel Movements 2 1 General Appearance: no acute distress HEENT: normocephalic Respiratory: chest wall non-tender, lungs clear Cardiovascular: normal peripheral pulses, normal rate Abdomen: normal bowel sounds Microbiology Date/Time Source Procedure Growth Status 01/13/20 04:00 Sputum Gram Stain - Final Resulted 01/13/20 04:00 Sputum Culture - Preliminary Staphylococcus Aureus Lacie Albicans Resulted Laboratory Tests 01/14/20 09:55: Ionized Calcium (Measured) 0.88L 01/14/20 12:14: POC Whole Blood Glucose 75 01/14/20 16:44: POC Whole Blood Glucose 85 01/15/20 05:40: White Blood Count 7.5, Red Blood Count 2.76L, Hemoglobin 7.8L, Hematocrit 24.3L, Mean Corpuscular Volume 88, Mean Corpuscular Hemoglobin 28.4, Mean Corpuscular Hemoglobin Concent 32.2, Red Cell Distribution Width 20.4H, Platelet Count 46L, Mean Platelet Volume 10.5H, Neutrophils (%) (Auto) , Lymphocytes (%) (Auto) , Monocytes (%) (Auto) , Eosinophils (%) (Auto) , Basophils (%) (Auto) , Neutrophils % (Manual) [Pending], Lymphocytes % (Manual) [Pending], Platelet Estimate [Pending], Platelet Morphology [Pending], Sodium Level 141, Potassium Level 2.7*L, Chloride Level 109H, Carbon Dioxide Level 20L, Anion Gap 11, Blood Urea Nitrogen 25H, Creatinine 1.9H, Estimat Glomerular Filtration Rate 42.5, Glucose Level 89, Uric Acid 6.4, Calcium Level 6.5L, Phosphorus Level 2.4L, Magnesium Level 1.6L, Total Bilirubin 0.4, Direct Bilirubin 0.2, Aspartate Amino Transf (AST/SGOT) 81H, Alanine Aminotransferase (ALT/SGPT) 21, Alkaline Phosphatase 99, Total Protein 4.6L, Albumin 1.7L 01/15/20 07:16: POC Whole Blood Glucose 79 Current Medications Medications (Trade) Dose Ordered Sig/Jesse Route PRN Reason Start Time Stop Time Status Last Admin Dose Admin Acetaminophen (Tylenol) 650 mg Q4H PRN ORAL PRNH/TEMP 01/05/20 20:15 02/04/20 20:14 01/12/20 03:10 Albumin Human 100 ml @ 100 mls/hr ONCE IV 01/15/20 09:15 01/15/20 10:30 Albuterol/ Ipratropium (Albuterol/ Ipratropium) 3 ml Q4H PRN HHN Bronchospasm 01/10/20 18:56 01/15/20 18:55 Allopurinol (allopurinoL) 300 mg BID NG 01/09/20 18:00 02/06/20 14:14 01/15/20 09:12 Barium Sulfate (Varibar Honey) 250 ml NOW PRN MC RAD 01/14/20 11:45 01/17/20 11:31 Barium Sulfate (Varibar [place]) 240 ml NOW PRN MC RAD 01/14/20 11:45 01/17/20 11:31 Barium Sulfate (Varibar Pudding) 230 ml NOW PRN MC RAD 01/14/20 11:45 01/17/20 11:31 Barium Sulfate (Varibar Thin Liquid powder) 148 gm NOW PRN MC RAD 01/14/20 11:45 01/17/20 11:31 Bisacodyl (Dulcolax) 10 mg DAILY PRN RECTAL Constipation 01/05/20 20:15 04/04/20 20:14 Calcium Gluconate/ Sodium Chloride 50 ml @ 50 mls/hr Q8HR IVPB 01/15/20 14:00 04/12/20 20:59 Cefepime HCl 1 gm/ Dextrose 55 ml @ 110 mls/hr Q24H IVPB 01/14/20 11:00 01/21/20 10:59 01/14/20 12:09 Chlorhexidine Gluconate (Navya-Hex 2%) 1 applic DAILY@2000 TOPIC 01/11/20 20:00 04/10/20 19:59 01/14/20 20:14 Dextrose (Dextrose 50%) 25 ml Q30M PRN IV Hypoglycemia 01/05/20 20:15 04/04/20 20:14 Dextrose (Dextrose 50%) 50 ml Q30M PRN IV Hypoglycemia 01/05/20 20:15 04/04/20 20:14 Dextrose/Sodium Chloride 1,000 ml @ 50 mls/hr Q20H IV 01/12/20 12:00 02/11/20 11:59 01/15/20 00:56 Docusate Sodium (Colace) 200 mg DAILY ORAL 01/06/20 09:00 02/05/20 08:59 01/14/20 08:34 Linaclotide (Linzess) 290 mcg BEFORE BREAKFAST ORAL 01/10/20 06:30 04/09/20 06:29 01/15/20 06:19 Magnesium Sulfate 100 ml @ 100 mls/hr Q1H IVPB 01/15/20 09:30 01/15/20 13:29 01/15/20 09:22 Midodrine (Pro-Amatine) 10 mg Q8HR ORAL 01/15/20 14:00 04/13/20 17:59 Norepinephrine Bitartrate 250 ml @ 0 mls/hr Q24H IV 01/14/20 11:45 01/17/20 11:37 01/14/20 12:09 Ondansetron HCl (Zofran) 4 mg Q6H PRN IVP Nausea & Vomiting 01/10/20 06:30 02/09/20 06:29 Oxymetazoline HCl (Afrin Nasal [place]) 2 spray Q12HR PRN NASAL dry nasal passage 01/11/20 08:00 04/10/20 07:59 Pantoprazole (Protonix) 40 mg EVERY 12 HOURS IVP 01/05/20 21:00 02/04/20 20:59 01/15/20 09:10 Polyethylene Glycol (Miralax) 17 gm BEDTIME NG 01/11/20 21:00 02/08/20 20:59 Potassium Chloride 100 ml @ 50 mls/hr Q2H IVPB 01/15/20 08:00 01/15/20 11:59 01/15/20 09:10 Sennosides (Senokot) 8.6 mg QHS NG 01/11/20 21:00 02/04/20 20:59 01/14/20 20:14 Vancomycin HCl (Vanco pharmacy to dose) 1 ea DAILY PRN MISC Per rx protocol 01/12/20 14:45 02/11/20 14:44 Assessment/Plan Assessment/Plan IMPRESSION: 1. Severe metabolic acidosis. Corrected 2. Respiratory failure; now extubated 3. Diarrhea. 4. Acute renal failure. Nephrology following 5. Anemia DISCUSSION: Doing well on supplemental O2 Continue antibiotics, IV fluid hydration. Transfer to [facility] Rectal tube prn Daxa Infante Omar Syed MD Jan 15, 2020 09:27
[2020-01-15] MEDS ORDERED: NS 275ml ONE ×2 (09:45→14:06)
--- NOTE | 2020-01-15 11:26 | Infectious Diseases Prog Note ---
Assessment/Plan Assessment: Shock- likely combination sepstic and metabolic derangements- off pressors now Probable UTI -01/10 u/a wbc 60-80, nit neg, leuk +3; ucx Neg -Bcx NTD Probable PNA -01/12 CXR: No significant change in bilateral patchy pulmonary opacities, concerning for pneumonia versus edemaq. Small bilateral pleural effusions. -01/10 CXR: Bilateral interstitial and airspace infiltrates versus edema persists. sp cx S. aureus (sensi P) COVID19 neg -01/04 rapid COVID PCR neg x1 influenza PCR neg CXR: Mild interstitial vascular prominence. No focal infiltrate or consolidation. Acute resp failure- 2ry to vol overload and metabolic acidosis- on VM now 01/10 s- sp intubation 01/10> extubated 01/12 Low grade fever- SP No leukocytosis> pancytopenia -u/a neg, ucx neg Tachycardia, SP-2 ry to severe dehydration- no evidence of infection AVIS,worsened Hypernatremia>Hyponatremia R>L hydronephrosis Pancreatic lesions -Abd US: Bilateral right greater than left hydronephrosis, increased since prior study of 03/20/2019. Etiology not demonstrated. Empty bladder with a Mathew catheter. 3 hypoechoic lesions within the pancreatic head and body, each measuring about 5 mm. Appearance nonspecific. Bilateral pleural effusions. Echogenic liver, consistent with hepatocellular disease. Surface likely nodul arity raises concern for cirrhosis. Gallbladder sludge. Negative for dilated bile ducts. Probable nonobstructive left intrarenal calculi. Multiple hepatic cysts Acute on chronic encephalopathy -CT head: 1. Markedly limited, near nondiagnostic evaluation due to motion artifact. Grossly, age-related changes and small vessel disease of aging are noted. Again grossly, no acute intracranial pathology is detected. If there is a high degree of concern or if there is concern for subtle abnormalities, magnetic resonance imaging of the brain with diffusion-weighted sequences should be performed, due to the markedly limited nature of the current study. Close clinical correlation is necessary. HTN COPD DM2 paraplegia Dementia non verbal [facility] Plan: -Cont Cefepime #2 (abx d #5) given worsening thrombocytopenia -empiric IV Vancomycin #4 pending S. aureus sensi sp cx -01/13 SP ZOsyn #4 -01/06 SP Ceftriaxone #2 -01/04 Sp IV Vancomycin x1, Cefepime x1 -f/u cx -Monitor CBC/CMP, temperatures -Renal, cards f/u -f/u ucx, Bcx x2, sp cx -ICU care -aspiration precautions Thank you for consulting [facility]. Will continue to follow along with you. Discussed with RN. Subjective Allergies: Coded Allergies: No Known Allergies (Unverified , 03/18/19) afebrile >72 hrs on 2L NC off pressors now Bcx NTD no leukocytosis Cr improving Objective Last 24 Hour Vital Signs Date Time Temp Pulse Resp B/P (MAP) Pulse Ox O2 Delivery O2 Flow Rate FiO2 01/15/20 07:40 96 16 100 Nasal Cannula 2.0 28 01/15/20 07:40 100 Nasal Cannula 2.0 28 01/15/20 07:00 76 12 73/44 (54) 100 01/15/20 06:00 87 14 96/56 (69) 100 01/15/20 05:00 89 14 110/56 (74) 99 01/15/20 04:00 90 01/15/20 04:00 1.0 01/15/20 04:00 Venturi Mask 5.0 01/15/20 04:00 98.0 89 15 104/57 (73) 99 01/15/20 04:00 1.0 01/15/20 03:00 91 15 103/56 (72) 100 01/15/20 02:00 91 14 110/61 (77) 99 01/15/20 01:00 92 15 117/62 (80) 99 01/15/20 00:00 Venturi Mask 5.0 01/15/20 00:00 2.0 01/15/20 00:00 91 15 111/57 (75) 99 01/14/20 23:00 73 13 87/49 (62) 100 01/14/20 22:00 90 15 125/63 (83) 99 01/14/20 21:00 76 13 97/51 (66) 100 01/14/20 20:23 93 01/14/20 20:00 Venturi Mask 5.0 01/14/20 20:00 97.1 91 17 113/63 (80) 100 01/14/20 20:00 5.0 28 01/14/20 19:48 89 16 99 Nasal Cannula 2.0 28 01/14/20 19:48 99 Nasal Cannula 2.0 28 01/14/20 19:00 91 16 104/63 (77) 100 01/14/20 18:00 93 15 98/53 (68) 100 01/14/20 17:30 98 15 111/65 (80) 100 01/14/20 17:30 92 15 98/53 (68) 100 01/14/20 17:00 94 16 99/56 (70) 100 01/14/20 16:30 95 18 99/56 (70) 100 01/14/20 16:00 97.6 96 15 133/75 (94) 98 01/14/20 16:00 89 01/14/20 16:00 5.0 28 01/14/20 16:00 Venturi Mask 5.0 01/14/20 15:30 87 15 115/59 (77) 99 01/14/20 15:00 90 15 113/63 (80) 99 01/14/20 14:30 89 14 114/60 (78) 99 01/14/20 14:00 87 14 120/65 (83) 99 01/14/20 13:30 90 13 130/65 (86) 99 01/14/20 13:00 83 13 83/52 (62) 98 01/14/20 12:30 91 14 101/53 (69) 100 01/14/20 12:30 100 Cool Aerosol 5.0 28 01/14/20 12:09 113/67 01/14/20 12:00 Venturi Mask 5.0 01/14/20 12:00 92 01/14/20 12:00 5.0 28 01/14/20 12:00 97.5 89 18 113/67 (82) 99 01/14/20 11:30 91 16 125/68 (87) 100 01/14/20 11:00 93 21 119/69 (86) 100 Height (Feet): 6 Height (Inches): 0.00 Weight (Pounds): 150 CARDIOVASCULAR: No murmur. LUNGS: Poor exchange. ABDOMEN: Bowel sounds distant. EXTREMITIES: No cyanosis or edema. NEUROLOGIC: The patient moves all extremities, slightly weak. Microbiology Date/Time Source Procedure Growth Status 01/13/20 04:00 Sputum Gram Stain - Final Resulted 01/13/20 04:00 Sputum Culture - Preliminary Staphylococcus Aureus Lacie Albicans Resulted Laboratory Tests Test 01/14/20 12:14 01/14/20 16:44 01/15/20 05:40 01/15/20 07:16 POC Whole Blood Glucose 75 MG/DL (74-106) 85 MG/DL (74-106) 79 MG/DL (74-106) White Blood Count 7.5 K/UL (4.8-10.8) Red Blood Count 2.76 M/UL (4.70-6.10) L Hemoglobin 7.8 G/DL (14.2-18.0) L Hematocrit 24.3 % (42.0-52.0) L Mean Corpuscular Volume 88 FL (80-99) Mean Corpuscular Hemoglobin 28.4 PG (27.0-31.0) Mean Corpuscular Hemoglobin Concent 32.2 G/DL (32.0-36.0) Red Cell Distribution Width 20.4 % (11.6-14.8) H Platelet Count 46 K/UL (150-450) L Mean Platelet Volume 10.5 FL (6.5-10.1) H Neutrophils (%) (Auto) % (45.0-75.0) Lymphocytes (%) (Auto) % (20.0-45.0) Monocytes (%) (Auto) % (1.0-10.0) Eosinophils (%) (Auto) % (0.0-3.0) Basophils (%) (Auto) % (0.0-2.0) Differential Total Cells Counted 100 Neutrophils % (Manual) 79 % (45-75) H Lymphocytes % (Manual) 13 % (20-45) L Monocytes % (Manual) 1 % (1-10) Eosinophils % (Manual) 0 % (0-3) Basophils % (Manual) 0 % (0-2) Myelocytes % 1 % (0-0) H Band Neutrophils 6 % (0-8) Nucleated Red Blood Cells 1 /100 WBC Platelet Estimate Decreased L Platelet Morphology Normal Polychromasia 1+ Anisocytosis 2+ Sodium Level 141 MMOL/L (136-145) Potassium Level 2.7 MMOL/L (3.5-5.1) *L Chloride Level 109 MMOL/L (98-107) H Carbon Dioxide Level 20 MMOL/L (21-32) L Anion Gap 11 mmol/L (5-15) Blood Urea Nitrogen 25 mg/dL (7-18) H Creatinine 1.9 MG/DL (0.55-1.30) H Estimat Glomerular Filtration Rate 42.5 mL/min (>60) Glucose Level 89 MG/DL (74-106) Uric Acid 6.4 MG/DL (2.6-7.2) Calcium Level 6.5 MG/DL (8.5-10.1) L Phosphorus Level 2.4 MG/DL (2.5-4.9) L Magnesium Level 1.6 MG/DL (1.8-2.4) L Total Bilirubin 0.4 MG/DL (0.2-1.0) Direct Bilirubin 0.2 MG/DL (0.0-0.3) Aspartate Amino Transf (AST/SGOT) 81 U/L (15-37) H Alanine Aminotransferase (ALT/SGPT) 21 U/L (12-78) Alkaline Phosphatase 99 U/L (46-116) Total Protein 4.6 G/DL (6.4-8.2) L Albumin 1.7 G/DL (3.4-5.0) L Current Medications Medications (Trade) Dose Ordered Sig/Jesse Route PRN Reason Start Time Stop Time Status Last Admin Dose Admin Acetaminophen (Tylenol) 650 mg Q4H PRN ORAL PRNH/TEMP 01/05/20 20:15 02/04/20 20:14 01/12/20 03:10 Albuterol/ Ipratropium (Albuterol/ Ipratropium) 3 ml Q4H PRN HHN Bronchospasm 01/10/20 18:56 01/15/20 18:55 Allopurinol (allopurinoL) 300 mg BID NG 01/09/20 18:00 02/06/20 14:14 01/15/20 09:12 Barium Sulfate (Varibar Honey) 250 ml NOW PRN MC RAD 01/14/20 11:45 01/17/20 11:31 Barium Sulfate (Varibar [place]) 240 ml NOW PRN MC RAD 01/14/20 11:45 01/17/20 11:31 Barium Sulfate (Varibar Pudding) 230 ml NOW PRN MC RAD 01/14/20 11:45 01/17/20 11:31 Barium Sulfate (Varibar Thin Liquid powder) 148 gm NOW PRN MC RAD 01/14/20 11:45 01/17/20 11:31 Bisacodyl (Dulcolax) 10 mg DAILY PRN RECTAL Constipation 01/05/20 20:15 04/04/20 20:14 Calcium Gluconate/ Sodium Chloride 50 ml @ 50 mls/hr Q8HR IVPB 01/15/20 14:00 04/12/20 20:59 Cefepime HCl 1 gm/ Dextrose 55 ml @ 110 mls/hr Q24H IVPB 01/14/20 11:00 01/21/20 10:59 01/14/20 12:09 Chlorhexidine Gluconate (Navya-Hex 2%) 1 applic DAILY@2000 TOPIC 01/11/20 20:00 04/10/20 19:59 01/14/20 20:14 Dextrose (Dextrose 50%) 25 ml Q30M PRN IV Hypoglycemia 01/05/20 20:15 04/04/20 20:14 Dextrose (Dextrose 50%) 50 ml Q30M PRN IV Hypoglycemia 01/05/20 20:15 04/04/20 20:14 Dextrose/Sodium Chloride 1,000 ml @ 50 mls/hr Q20H IV 01/12/20 12:00 02/11/20 11:59 01/15/20 00:56 Docusate Sodium (Colace) 200 mg DAILY ORAL 01/06/20 09:00 02/05/20 08:59 01/14/20 08:34 Linaclotide (Linzess) 290 mcg BEFORE BREAKFAST ORAL 01/10/20 06:30 04/09/20 06:29 01/15/20 06:19 Magnesium Sulfate 100 ml @ 100 mls/hr Q1H IVPB 01/15/20 09:30 01/15/20 13:29 01/15/20 10:31 Midodrine (Pro-Amatine) 10 mg Q8HR ORAL 01/15/20 14:00 04/13/20 17:59 Norepinephrine Bitartrate 250 ml @ 0 mls/hr Q24H IV 01/14/20 11:45 01/17/20 11:37 01/14/20 12:09 Ondansetron HCl (Zofran) 4 mg Q6H PRN IVP Nausea & Vomiting 01/10/20 06:30 02/09/20 06:29 Oxymetazoline HCl (Afrin Nasal [place]) 2 spray Q12HR PRN NASAL dry nasal passage 01/11/20 08:00 04/10/20 07:59 Pantoprazole (Protonix) 40 mg EVERY 12 HOURS IVP 01/05/20 21:00 02/04/20 20:59 01/15/20 09:10 Polyethylene Glycol (Miralax) 17 gm BEDTIME NG 01/11/20 21:00 02/08/20 20:59 Potassium Chloride 100 ml @ 50 mls/hr Q2H IVPB 01/15/20 08:00 01/15/20 11:59 01/15/20 09:10 Sennosides (Senokot) 8.6 mg QHS NG 01/11/20 21:00 02/04/20 20:59 01/14/20 20:14 Vancomycin HCl ([facility]anco pharmacy to dose) 1 ea DAILY PRN MISC Per rx protocol 01/12/20 14:45 02/11/20 14:44 Clara Guerin M.D. Jan 15, 2020 11:26
[2020-01-15] MEDS: Norepinephrine 4mg/NS Premix 250 ML IV SCH (11:45)
[2020-01-15] MEDS: Cefepime HCl 1 GM in D5W 55 ML IVPB SCH (11:51)
--- NOTE | 2020-01-15 11:59 | Cardiac Electrophysiology PN ---
Assessment/Plan Assessment/Plan 1. Altered mental status due to severe dehydration in view of sodium of 160 and acute renal failure. On IV fluids and IV antibiotics. Ruled out for KS. Na 132 now 2. Hypotension. Off BP meds (at the alf, the patient was on amlodipine and metoprolol) Off 2 Levophed. On Midodrine 10 tid 3. History of CVA, Plavix DCed in view of hematuria. 4. Advanced dementia. NGT feeding 5. Diabetes. 6. Acute renal failure. The patient is being hydrated. Cr 4.2. Had HD once only on 01/11/20 7. Hematuria 8. Anemia with Hb 5.8 and coffee ground emesis. FU Dr Bueno 9. Shock liver with increase AST>2000 MRI abdomen pending DW RN Subjective Subjective In ICU in SR in restraints on Face Mask Has NGT in. Off Levo . Objective Last 24 Hour Vital Signs Date Time Temp Pulse Resp B/P (MAP) Pulse Ox O2 Delivery O2 Flow Rate FiO2 01/15/20 11:45 114/53 01/15/20 10:00 97 17 124/62 (82) 100 01/15/20 09:00 90 18 109/57 (74) 100 01/15/20 08:01 90 01/15/20 08:00 Nasal Cannula 1.0 01/15/20 08:00 1.0 01/15/20 08:00 97.9 93 15 122/53 (76) 100 01/15/20 07:40 96 16 100 Nasal Cannula 2.0 28 01/15/20 07:40 100 Nasal Cannula 2.0 28 01/15/20 07:07 80 14 95/58 (70) 100 01/15/20 07:00 76 12 73/44 (54) 100 01/15/20 06:00 87 14 96/56 (69) 100 01/15/20 05:00 89 14 110/56 (74) 99 01/15/20 04:00 90 01/15/20 04:00 1.0 01/15/20 04:00 Venturi Mask 5.0 01/15/20 04:00 98.0 89 15 104/57 (73) 99 01/15/20 04:00 1.0 01/15/20 03:00 91 15 103/56 (72) 100 01/15/20 02:00 91 14 110/61 (77) 99 01/15/20 01:00 92 15 117/62 (80) 99 01/15/20 00:00 Venturi Mask 5.0 01/15/20 00:00 2.0 01/15/20 00:00 91 15 111/57 (75) 99 01/14/20 23:00 73 13 87/49 (62) 100 01/14/20 22:00 90 15 125/63 (83) 99 01/14/20 21:00 76 13 97/51 (66) 100 01/14/20 20:23 93 01/14/20 20:00 Venturi Mask 5.0 01/14/20 20:00 97.1 91 17 113/63 (80) 100 01/14/20 20:00 5.0 28 01/14/20 19:48 89 16 99 Nasal Cannula 2.0 28 01/14/20 19:48 99 Nasal Cannula 2.0 28 01/14/20 19:00 91 16 104/63 (77) 100 01/14/20 18:00 93 15 98/53 (68) 100 01/14/20 17:30 98 15 111/65 (80) 100 01/14/20 17:30 92 15 98/53 (68) 100 01/14/20 17:00 94 16 99/56 (70) 100 01/14/20 16:30 95 18 99/56 (70) 100 01/14/20 16:00 97.6 96 15 133/75 (94) 98 01/14/20 16:00 89 01/14/20 16:00 5.0 28 01/14/20 16:00 Venturi Mask 5.0 01/14/20 15:30 87 15 115/59 (77) 99 01/14/20 15:00 90 15 113/63 (80) 99 01/14/20 14:30 89 14 114/60 (78) 99 01/14/20 14:00 87 14 120/65 (83) 99 01/14/20 13:30 90 13 130/65 (86) 99 01/14/20 13:00 83 13 83/52 (62) 98 01/14/20 12:30 91 14 101/53 (69) 100 01/14/20 12:30 100 Cool Aerosol 5.0 28 01/14/20 12:09 113/67 01/14/20 12:00 Venturi Mask 5.0 01/14/20 12:00 92 01/14/20 12:00 5.0 28 01/14/20 12:00 97.5 89 18 113/67 (82) 99 Intake and Output 01/14/20 01/15/20 19:00 07:00 Intake Total 1760.25 ml 1250 ml Output Total 785 ml 600 ml Balance 975.25 ml 650 ml Free Water 90 ml IV Total 1640.25 ml 1250 ml Other 30 ml Output Urine Total 785 ml 600 ml # Bowel Movements 2 1 Laboratory Tests Test 01/14/20 12:14 01/14/20 16:44 01/15/20 05:40 01/15/20 07:16 POC Whole Blood Glucose 75 MG/DL (74-106) 85 MG/DL (74-106) 79 MG/DL (74-106) White Blood Count 7.5 K/UL (4.8-10.8) Red Blood Count 2.76 M/UL (4.70-6.10) L Hemoglobin 7.8 G/DL (14.2-18.0) L Hematocrit 24.3 % (42.0-52.0) L Mean Corpuscular Volume 88 FL (80-99) Mean Corpuscular Hemoglobin 28.4 PG (27.0-31.0) Mean Corpuscular Hemoglobin Concent 32.2 G/DL (32.0-36.0) Red Cell Distribution Width 20.4 % (11.6-14.8) H Platelet Count 46 K/UL (150-450) L Mean Platelet Volume 10.5 FL (6.5-10.1) H Neutrophils (%) (Auto) % (45.0-75.0) Lymphocytes (%) (Auto) % (20.0-45.0) Monocytes (%) (Auto) % (1.0-10.0) Eosinophils (%) (Auto) % (0.0-3.0) Basophils (%) (Auto) % (0.0-2.0) Differential Total Cells Counted 100 Neutrophils % (Manual) 79 % (45-75) H Lymphocytes % (Manual) 13 % (20-45) L Monocytes % (Manual) 1 % (1-10) Eosinophils % (Manual) 0 % (0-3) Basophils % (Manual) 0 % (0-2) Myelocytes % 1 % (0-0) H Band Neutrophils 6 % (0-8) Nucleated Red Blood Cells 1 /100 WBC Platelet Estimate Decreased L Platelet Morphology Normal Polychromasia 1+ Anisocytosis 2+ Sodium Level 141 MMOL/L (136-145) Potassium Level 2.7 MMOL/L (3.5-5.1) *L Chloride Level 109 MMOL/L (98-107) H Carbon Dioxide Level 20 MMOL/L (21-32) L Anion Gap 11 mmol/L (5-15) Blood Urea Nitrogen 25 mg/dL (7-18) H Creatinine 1.9 MG/DL (0.55-1.30) H Estimat Glomerular Filtration Rate 42.5 mL/min (>60) Glucose Level 89 MG/DL (74-106) Uric Acid 6.4 MG/DL (2.6-7.2) Calcium Level 6.5 MG/DL (8.5-10.1) L Phosphorus Level 2.4 MG/DL (2.5-4.9) L Magnesium Level 1.6 MG/DL (1.8-2.4) L Total Bilirubin 0.4 MG/DL (0.2-1.0) Direct Bilirubin 0.2 MG/DL (0.0-0.3) Aspartate Amino Transf (AST/SGOT) 81 U/L (15-37) H Alanine Aminotransferase (ALT/SGPT) 21 U/L (12-78) Alkaline Phosphatase 99 U/L (46-116) Total Protein 4.6 G/DL (6.4-8.2) L Albumin 1.7 G/DL (3.4-5.0) L Microbiology Date/Time Source Procedure Growth Status 01/13/20 04:00 Sputum Gram Stain - Final Resulted 01/13/20 04:00 Sputum Culture - Preliminary Staphylococcus Aureus Lacie Albicans Resulted Objective HEAD AND NECK: No JVD.NGT in place LUNGS: Coarse rhonchi. CARDIOVASCULAR: Regular S1 and S2 with no gallop. ABDOMEN: Soft. EXTREMITIES: No pitting edema. Kevin Lopez MD Jan 15, 2020 11:59
[2020-01-15] MEDS: Midodrine 10mg tab ORAL SCH ×2 (13:20→21:26)
--- NOTE | 2020-01-15 13:24 | General Progress Note ---
Subjective Constitutional: Reports: weakness Allergies: Coded Allergies: No Known Allergies (Unverified , 03/18/19) All Systems: reviewed and negative except above Subjective o2 nc ng calm in icu Objective Last 24 Hour Vital Signs Date Time Temp Pulse Resp B/P (MAP) Pulse Ox O2 Delivery O2 Flow Rate FiO2 01/15/20 12:00 Nasal Cannula 1.0 01/15/20 12:00 1.0 01/15/20 11:45 114/53 01/15/20 10:00 97 17 124/62 (82) 100 01/15/20 09:00 90 18 109/57 (74) 100 01/15/20 08:01 90 01/15/20 08:00 Nasal Cannula 1.0 01/15/20 08:00 1.0 01/15/20 08:00 97.9 93 15 122/53 (76) 100 01/15/20 07:40 96 16 100 Nasal Cannula 2.0 28 01/15/20 07:40 100 Nasal Cannula 2.0 28 01/15/20 07:07 80 14 95/58 (70) 100 01/15/20 07:00 76 12 73/44 (54) 100 01/15/20 06:00 87 14 96/56 (69) 100 01/15/20 05:00 89 14 110/56 (74) 99 01/15/20 04:00 90 01/15/20 04:00 1.0 01/15/20 04:00 Venturi Mask 5.0 01/15/20 04:00 98.0 89 15 104/57 (73) 99 01/15/20 04:00 1.0 01/15/20 03:00 91 15 103/56 (72) 100 01/15/20 02:00 91 14 110/61 (77) 99 01/15/20 01:00 92 15 117/62 (80) 99 01/15/20 00:00 Venturi Mask 5.0 01/15/20 00:00 2.0 01/15/20 00:00 91 15 111/57 (75) 99 01/14/20 23:00 73 13 87/49 (62) 100 01/14/20 22:00 90 15 125/63 (83) 99 01/14/20 21:00 76 13 97/51 (66) 100 01/14/20 20:23 93 01/14/20 20:00 Venturi Mask 5.0 01/14/20 20:00 97.1 91 17 113/63 (80) 100 01/14/20 20:00 5.0 28 01/14/20 19:48 89 16 99 Nasal Cannula 2.0 28 01/14/20 19:48 99 Nasal Cannula 2.0 28 01/14/20 19:00 91 16 104/63 (77) 100 01/14/20 18:00 93 15 98/53 (68) 100 01/14/20 17:30 98 15 111/65 (80) 100 01/14/20 17:30 92 15 98/53 (68) 100 01/14/20 17:00 94 16 99/56 (70) 100 01/14/20 16:30 95 18 99/56 (70) 100 01/14/20 16:00 97.6 96 15 133/75 (94) 98 01/14/20 16:00 89 01/14/20 16:00 5.0 28 01/14/20 16:00 Venturi Mask 5.0 01/14/20 15:30 87 15 115/59 (77) 99 01/14/20 15:00 90 15 113/63 (80) 99 01/14/20 14:30 89 14 114/60 (78) 99 01/14/20 14:00 87 14 120/65 (83) 99 01/14/20 13:30 90 13 130/65 (86) 99 Intake and Output 01/14/20 01/15/20 19:00 07:00 Intake Total 1760.25 ml 1250 ml Output Total 785 ml 600 ml Balance 975.25 ml 650 ml Free Water 90 ml IV Total 1640.25 ml 1250 ml Other 30 ml Output Urine Total 785 ml 600 ml # Bowel Movements 2 1 Laboratory Tests 01/14/20 16:44: POC Whole Blood Glucose 85 01/15/20 05:40: White Blood Count 7.5, Red Blood Count 2.76L, Hemoglobin 7.8L, Hematocrit 24.3L, Mean Corpuscular Volume 88, Mean Corpuscular Hemoglobin 28.4, Mean Corpuscular Hemoglobin Concent 32.2, Red Cell Distribution Width 20.4H, Platelet Count 46L, Mean Platelet Volume 10.5H, Neutrophils (%) (Auto) , Lymphocytes (%) (Auto) , Monocytes (%) (Auto) , Eosinophils (%) (Auto) , Basophils (%) (Auto) , Differential Total Cells Counted 100, Neutrophils % (Manual) 79H, Lymphocytes % (Manual) 13L, Monocytes % (Manual) 1, Eosinophils % (Manual) 0, Basophils % (Manual) 0, Myelocytes % 1H, Band Neutrophils 6, Nucleated Red Blood Cells 1, Platelet Estimate DecreasedL, Platelet Morphology Normal, Polychromasia 1+, Anisocytosis 2+, Sodium Level 141, Potassium Level 2.7*L, Chloride Level 109H, Carbon Dioxide Level 20L, Anion Gap 11, Blood Urea Nitrogen 25H, Creatinine 1.9H , Estimat Glomerular Filtration Rate 42.5, Glucose Level 89, Uric Acid 6.4, Colten cium Level 6.5L, Phosphorus Level 2.4L, Magnesium Level 1.6L, Total Bilirubin 0.4, Direct Bilirubin 0.2, Aspartate Amino Transf (AST/SGOT) 81H, Alanine Aminotransferase (ALT/SGPT) 21, Alkaline Phosphatase 99, Total Protein 4.6L, Albumin 1.7L 01/15/20 07:16: POC Whole Blood Glucose 79 Height (Feet): 6 Height (Inches): 0.00 Weight (Pounds): 150 General Appearance: lethargic EENT: normal ENT inspection Neck: normal alignment Cardiovascular: normal peripheral pulses, normal rate, regular rhythm Respiratory/Chest: chest wall non-tender, lungs clear, normal breath sounds Abdomen: normal bowel sounds, non tender, soft Extremities: normal inspection Edema: no edema noted Arm (L), no edema noted Arm (R), no edema noted Leg (L), no edema noted Leg (R), no edema noted Pedal (L), no edema noted Pedal (R), no edema noted Generalized Neurologic: motor weakness Skin: normal pigmentation, warm/dry Assessment/Plan Problem List: (1) Anemia ICD Codes: D64.9 - Anemia, unspecified SNOMED: 710130748 (2) Paraplegia ICD Codes: G82.20 - Paraplegia, unspecified SNOMED: 59227608 (3) Diabetes ICD Codes: E11.9 - Type 2 diabetes mellitus without complications SNOMED: 23753653 (4) Weak ICD Codes: R53.1 - Weakness SNOMED: 45003036 (5) HTN (hypertension) ICD Codes: I10 - Essential (primary) hypertension SNOMED: 11840659 (6) ARF (acute renal failure) ICD Codes: N17.9 - Acute kidney failure, unspecified SNOMED: 09096312 (7) Altered level of consciousness ICD Codes: R40.4 - Transient alteration of awareness SNOMED: 7249877 (8) Dehydration ICD Codes: E86.0 - Dehydration SNOMED: 74439568 (9) Hypernatremia ICD Codes: E87.0 - Hyperosmolality and hypernatremia SNOMED: 677509863 Status: unchanged Assessment/Plan: o2 pulm tx abx ivf cbc bmp am pulm cardio f/u Farrukh Ríos DO Jan 15, 2020 13:24
[2020-01-15] MEDS ORDERED: Gadavist 7.5mMol/7.5ml vial IV PRN (13:45)
[2020-01-15] MEDS ORDERED: Tubing IV Secondary IV ONE (14:06)
--- NOTE | 2020-01-15 14:11 | Surgery Progress Note ---
Surgery Progress Note Subjective Procedure Performed Right femoral temporary hemodialysis catheter insertion Symptoms: improved Additional Comments more responsive no n/v labs noted doing well extubaetd Objective Last 24 Hour Vital Signs Date Time Temp Pulse Resp B/P (MAP) Pulse Ox O2 Delivery O2 Flow Rate FiO2 01/15/20 13:00 85 15 122/63 (82) 99 01/15/20 12:00 Nasal Cannula 1.0 01/15/20 12:00 1.0 01/15/20 12:00 97.6 95 14 131/59 (83) 99 01/15/20 11:45 114/53 01/15/20 11:00 89 18 114/53 (73) 100 01/15/20 10:00 97 17 124/62 (82) 100 01/15/20 09:00 90 18 109/57 (74) 100 01/15/20 08:01 90 01/15/20 08:00 Nasal Cannula 1.0 01/15/20 08:00 1.0 01/15/20 08:00 97.9 93 15 122/53 (76) 100 01/15/20 07:40 96 16 100 Nasal Cannula 2.0 28 01/15/20 07:40 100 Nasal Cannula 2.0 28 01/15/20 07:07 80 14 95/58 (70) 100 01/15/20 07:00 76 12 73/44 (54) 100 01/15/20 06:00 87 14 96/56 (69) 100 01/15/20 05:00 89 14 110/56 (74) 99 01/15/20 04:00 90 01/15/20 04:00 1.0 01/15/20 04:00 Venturi Mask 5.0 01/15/20 04:00 98.0 89 15 104/57 (73) 99 01/15/20 04:00 1.0 01/15/20 03:00 91 15 103/56 (72) 100 01/15/20 02:00 91 14 110/61 (77) 99 01/15/20 01:00 92 15 117/62 (80) 99 01/15/20 00:00 Venturi Mask 5.0 01/15/20 00:00 2.0 01/15/20 00:00 91 15 111/57 (75) 99 01/14/20 23:00 73 13 87/49 (62) 100 01/14/20 22:00 90 15 125/63 (83) 99 01/14/20 21:00 76 13 97/51 (66) 100 01/14/20 20:23 93 01/14/20 20:00 Venturi Mask 5.0 01/14/20 20:00 97.1 91 17 113/63 (80) 100 01/14/20 20:00 5.0 28 01/14/20 19:48 89 16 99 Nasal Cannula 2.0 28 01/14/20 19:48 99 Nasal Cannula 2.0 28 01/14/20 19:00 91 16 104/63 (77) 100 01/14/20 18:00 93 15 98/53 (68) 100 01/14/20 17:30 98 15 111/65 (80) 100 01/14/20 17:30 92 15 98/53 (68) 100 01/14/20 17:00 94 16 99/56 (70) 100 01/14/20 16:30 95 18 99/56 (70) 100 01/14/20 16:00 97.6 96 15 133/75 (94) 98 01/14/20 16:00 89 01/14/20 16:00 5.0 28 01/14/20 16:00 Venturi Mask 5.0 01/14/20 15:30 87 15 115/59 (77) 99 01/14/20 15:00 90 15 113/63 (80) 99 01/14/20 14:30 89 14 114/60 (78) 99 I&O Intake and Output 01/14/20 01/15/20 19:00 07:00 Intake Total 1760.25 ml 1250 ml Output Total 785 ml 600 ml Balance 975.25 ml 650 ml Free Water 90 ml IV Total 1640.25 ml 1250 ml Other 30 ml Output Urine Total 785 ml 600 ml # Bowel Movements 2 1 Cardiovascular: RSR Respiratory: decreased breath sounds Abdomen: non-tender, present bowel sounds Extremities: no edema, no tenderness, no cyanosis Laboratory Tests Test 01/14/20 16:44 01/15/20 05:40 01/15/20 07:16 POC Whole Blood Glucose 85 MG/DL (74-106) 79 MG/DL (74-106) White Blood Count 7.5 K/UL (4.8-10.8) Red Blood Count 2.76 M/UL (4.70-6.10) L Hemoglobin 7.8 G/DL (14.2-18.0) L Hematocrit 24.3 % (42.0-52.0) L Mean Corpuscular Volume 88 FL (80-99) Mean Corpuscular Hemoglobin 28.4 PG (27.0-31.0) Mean Corpuscular Hemoglobin Concent 32.2 G/DL (32.0-36.0) Red Cell Distribution Width 20.4 % (11.6-14.8) H Platelet Count 46 K/UL (150-450) L Mean Platelet Volume 10.5 FL (6.5-10.1) H Neutrophils (%) (Auto) % (45.0-75.0) Lymphocytes (%) (Auto) % (20.0-45.0) Monocytes (%) (Auto) % (1.0-10.0) Eosinophils (%) (Auto) % (0.0-3.0) Basophils (%) (Auto) % (0.0-2.0) Differential Total Cells Counted 100 Neutrophils % (Manual) 79 % (45-75) H Lymphocytes % (Manual) 13 % (20-45) L Monocytes % (Manual) 1 % (1-10) Eosinophils % (Manual) 0 % (0-3) Basophils % (Manual) 0 % (0-2) Myelocytes % 1 % (0-0) H Band Neutrophils 6 % (0-8) Nucleated Red Blood Cells 1 /100 WBC Platelet Estimate Decreased L Platelet Morphology Normal Polychromasia 1+ Anisocytosis 2+ Sodium Level 141 MMOL/L (136-145) Potassium Level 2.7 MMOL/L (3.5-5.1) *L Chloride Level 109 MMOL/L (98-107) H Carbon Dioxide Level 20 MMOL/L (21-32) L Anion Gap 11 mmol/L (5-15) Blood Urea Nitrogen 25 mg/dL (7-18) H Creatinine 1.9 MG/DL (0.55-1.30) H Estimat Glomerular Filtration Rate 42.5 mL/min (>60) Glucose Level 89 MG/DL (74-106) Uric Acid 6.4 MG/DL (2.6-7.2) Calcium Level 6.5 MG/DL (8.5-10.1) L Phosphorus Level 2.4 MG/DL (2.5-4.9) L Magnesium Level 1.6 MG/DL (1.8-2.4) L Total Bilirubin 0.4 MG/DL (0.2-1.0) Direct Bilirubin 0.2 MG/DL (0.0-0.3) Aspartate Amino Transf (AST/SGOT) 81 U/L (15-37) H Alanine Aminotransferase (ALT/SGPT) 21 U/L (12-78) Alkaline Phosphatase 99 U/L (46-116) Total Protein 4.6 G/DL (6.4-8.2) L Albumin 1.7 G/DL (3.4-5.0) L Plan Problems: (1) Altered level of consciousness (2) Hypovolemic shock Assessment & Plan: resuscitation extubated monitor respiratory keep hob elevated supplemental O2 Gallbladder demonstrates sludge. No stones, wall thickening, nor pericholecystic fluid. Patient unable to report Wilson's sign Common bile duct measures 3 mm in diameter. No intrahepatic biliary ductal dilatation. Liver demonstrates coarsened echogenicity and surface nodularity. It demonstrates multiple cysts. Portal vein and hepatic veins are patent. The pancreas demonstrates 3 hypoechoic lesions in the head and body, measuring approximately 5 mm in diameter each. Spleen is unremarkable, poorly visualized. Left kidney measures 11.4 cm in length. Right kidney measures 11.3 cm length. Both kidneys demonstrate normal echogenicity. There is severe right and moderate left hydronephrosis. Echogenic foci are seen in the left renal sinus and collecting system. Bladder is empty, contains a Mathew catheter. Non-aneurysmal abdominal aorta . There are bilateral pleural effusions Impression: Bilateral right greater than left hydronephrosis, increased since prior study of 03/20/2019. Etiology not demonstrated Empty bladder with a Mathew catheter 3 hypoechoic lesions within the pancreatic head and body, each measuring about 5 mm. Appearance nonspecific. Recommend further evaluation with pancreas protocol MRI Bilateral pleural effusions Echogenic liver, consistent with hepatocellular disease. Surface likely nodularity raises concern for cirrhosis Gallbladder sludge. Negative for dilated bile ducts Probable nonobstructive left intrarenal calculi Multiple hepatic cysts (3) Lactic acid acidosis (4) Hypernatremia (5) Paraplegia (6) Anemia Assessment & Plan: no active bleeding noted no large hematoma dressings okay likely related to heme will monitor transfuse prbc with HD trend labs thank you (7) Diabetes (8) Weak (9) HTN (hypertension) (10) ARF (acute renal failure) (11) Hypercalcemia (12) Hyperuricemia (13) Dehydration (14) UTI (urinary tract infection) (15) Failure to thrive in adult Assessment & Plan: patient identified to have DTI on bilateral heels right with 5cm x 4cm area of dti not open no drainage no signs of infection left with 3cm x 2cm. pillow under leg optifoam dressings nutritional optimization will follow no acute surgery DAILY ESTIMATED NEEDS: Needs based on underweight, suspected wt loss, HD, CRITICAL CARE/ 57.6kg 25-33 kcals/kg 3732-2822 total kcals 1.2-2 g protein/kg 69-115 g total protein 25-30 mL/kg 7367-8606 total fluid mLs NUTRITION DIAGNOSIS: *Increased kcal and pro needs r/t underweight status, suspected significant wt loss as evidenced by pt @ 71% IBW w/ BMI 17.2, underweight per guidelines, w/ suspected signficant wt loss of 30lbs/19% in 10 months. * Swallowing difficulty R/T dysphagia, respiratory status as evidenced by s/p NGT insertion (01/08), now NPO, s/p code blue (01/10), orally intubated. CURRENT TF:NPO ENTERAL NUTRITION RECOMMENDATIONS: WHEN HEMODYNAMICALLY STABLE: Nepro @ 40ml/hr x 24 hrs to provide 960ml, 1728kcal, 77g prot, 698ml free water WHEN HEMODYNAMICALLY STABLE AND MEDICALLY APPROPRIATE TO FEED: -> initiate TF @ 5ml/hr x 6hrs, advance slowly 5ml q 4-6 hrs as tolerated to goal rate -> HOB over 30 degrees/ water flush per MD WITHOUT HEMODYNAMIC STABILITY -> If medically appropriate to feed, rec trophic feeding of Nepro @ 5ml/hr x 24 hrs to maintain gut integrity Lázaro Jenkins Jan 15, 2020 14:11
[2020-01-15] MEDS ORDERED: Albuterol/Ipratropium 3ml neb HHN PRN (15:36)
[2020-01-15] MEDS: Miralax 17gm pkt NG SCH (20:41)
[2020-01-15] MEDS: Dyna-Hex 2% Top Sol 2oz TOPIC SCH (20:41)
[2020-01-15] MEDS: Sennosides 8.6mg tab NG SCH (20:42)
[2020-01-16] VITALS (21 sets, daily range): BP systolic 109–146; BP diastolic 60–91
[2020-01-16 05:13] LABS: HEMATOCRIT 26.2 % (42.0-52.0); HEMOGLOBIN 8.2 G/DL (14.2-18.0); MEAN CORPUSCULAR VOLUME 90 FL (80-99); PLATELET COUNT 50 K/UL (150-450); RED BLOOD COUNT 2.91 M/UL (4.70-6.10); RED CELL DISTRIBUTION WIDTH 21.4 % (11.6-14.8); WHITE BLOOD COUNT 8.3 K/UL (4.8-10.8)
[2020-01-16] MEDS: Calcium Gluconate 1gm/50ml 50 ML IVPB SCH ×3 (05:51→22:36)
[2020-01-16] MEDS: Midodrine 10mg tab ORAL SCH ×3 (05:52→22:32)
[2020-01-16 06:56] LABS: ALBUMIN 2.2 G/DL (3.4-5.0); ALBUMIN/GLOBULIN RATIO 0.8 (1.0-2.7); BILIRUBIN,TOTAL 0.4 MG/DL (0.2-1.0); CALCIUM 7.5 MG/DL (8.5-10.1); CREATININE 1.8 MG/DL (0.55-1.30); POTASSIUM 3.5 MMOL/L (3.5-5.1)
--- NOTE | 2020-01-16 06:56 | Hematology/Onc Progress Note ---
Assessment/Plan Assessment/Plan Assessment/Recs # Anemia of chronic disease due to underlying chronic medical issues, multifactorial v Gi bleed --> Anemia workup has been ordered, rule out gi bleed --> No evidence of hemolysis is noted, peripheral smear has been reviewed. --> Hgb goal >7. Transfuse prn. --> Epogen or iron at this time is not particularly indicated --> Medications have been reviewed --> low threshold for gi evaluation in case has occult + --> hgb 10-->9.7-->9.2->10-->8.6-->7.7-->5-->8.3->9.3->7.8-->8.2 --> 01/12 flow cytometry ordered bc of nucleated cells on smear # Thrombocytopenia ongoing, worsened since adm --> plt 150-->98-->82-->51->49-->46-->50 --> hep and hiv panel--NEG --> us abd-->shows 3 small lesions, requires further eval # Multiple lesions noted in pancreas --> MRI abd ordered --> no family available, this is medically necessary/urgent as has contrast # Protein caloric malnutrition --> daily calorie counts --> daily weights --> mirtazapine started # Acute renal failure --> continue on ivfs --> as per renal # Hypokalemia --> replete with K # Severe dehydration --> ivfs ongoing # Hypernatremia indicative of severe water deficit # Severe hyperuricemia, partly due to dehydration and renal failure # Acute metabolic and toxic encephalopathy # Mild, malnutrition # Psych issues per psych # Lactic acid, possible sepsis # Dvt ppx heparin sq->Scds The timing of this note does not necessarily reflect the time of the patient was seen. Greatly appreciate consultation. Subjective Cardiovascular: Denies: no symptoms, chest pain, edema, irregular heart rate, lightheadedness, palpitations, syncope, other Gastrointestinal/Abdominal: Denies: no symptoms, abdomen distended, abdominal pain, black stools, tarry stools, blood in stool, constipated, diarrhea, difficulty swallowing, nausea, poor appetite, poor fluid intake, rectal bleeding, vomiting, other Genitourinary: Denies: no symptoms, burning, discharge, frequency, flank pain, hematuria, incontinence, pain, urgency, other Neurologic/Psychiatric: Denies: no symptoms, anxiety, depressed, emotional problems, headache, numbness, paresthesia, pre-existing deficit, seizure, tingling, tremors, weakness, other Endocrine: Denies: no symptoms, excessive sweating, flushing, intolerance to cold, intolerance to heat, increased hunger, increased thirst, increased urine, unexplained weight gain, unexplained weight loss, other Hematologic/Lymphatic: Denies: no symptoms, anemia, easy bleeding, easy bruising, adenopathy, other Allergies: Coded Allergies: No Known Allergies (Unverified , 03/18/19) Subjective 01/07 meds noted, no bleeding, hgb 10, no hemolysis, hgb 10.1 01/08 labs reviewed, vi rn, no major events, no bleeding, hgb lower 01/09 labs noted, no bleeding, vi rn, no major changes, plt lower 01/10 did have epistaxis overnight, no bleeding, night sweats, epistaxis better 01/12 icu, remains on vent, levo, no bleeding, meds noted 01/13 remains in icu, no bleeding, on levo, no major changes 01/14 icu, is on 1l, restarints are off, no bleeding, no night sweats 01/15 icu, meds noted, with diarrhea, rectal tube reinserted, on nc Objective Objective Current Medications Medications (Trade) Dose Ordered Sig/Jesse Route PRN Reason Start Time Stop Time Status Last Admin Dose Admin Acetaminophen (Tylenol) 650 mg Q4H PRN ORAL PRNH/TEMP 01/05/20 20:15 02/04/20 20:14 01/12/20 03:10 Albuterol/ Ipratropium (Albuterol/ Ipratropium) 3 ml Q4H PRN HHN Bronchospasm 01/15/20 15:36 01/20/20 15:35 Allopurinol (allopurinoL) 300 mg BID NG 01/09/20 18:00 02/06/20 14:14 01/15/20 17:36 Barium Sulfate (Varibar Honey) 250 ml NOW PRN MC RAD 01/14/20 11:45 01/17/20 11:31 Barium Sulfate (Varibar [place]) 240 ml NOW PRN MC RAD 01/14/20 11:45 01/17/20 11:31 Barium Sulfate (Varibar Pudding) 230 ml NOW PRN RAD 01/14/20 11:45 01/17/20 11:31 Barium Sulfate (Varibar Thin Liquid powder) 148 gm NOW PRN RAD 01/14/20 11:45 01/17/20 11:31 Bisacodyl (Dulcolax) 10 mg DAILY PRN RECTAL Constipation 01/05/20 20:15 04/04/20 20:14 Calcium Gluconate/ Sodium Chloride 50 ml @ 50 mls/hr Q8HR IVPB 01/15/20 14:00 04/12/20 20:59 01/16/20 05:51 Cefepime HCl 1 gm/ Dextrose 55 ml @ 110 mls/hr Q24H IVPB 01/14/20 11:00 01/21/20 10:59 01/15/20 11:51 Chlorhexidine Gluconate (Navya-Hex 2%) 1 applic DAILY@2000 TOPIC 01/11/20 20:00 04/10/20 19:59 01/15/20 20:41 Dextrose (Dextrose 50%) 25 ml Q30M PRN IV Hypoglycemia 01/05/20 20:15 04/04/20 20:14 Dextrose (Dextrose 50%) 50 ml Q30M PRN IV Hypoglycemia 01/05/20 20:15 04/04/20 20:14 Dextrose/Sodium Chloride 1,000 ml @ 50 mls/hr Q20H IV 01/12/20 12:00 02/11/20 11:59 01/15/20 10:10 Docusate Sodium (Colace) 200 mg DAILY ORAL 01/06/20 09:00 02/05/20 08:59 01/14/20 08:34 Gadobutrol (Gadavist) 7.5 mmol NOW PRN IV Radiology Procedure 01/15/20 13:45 01/19/20 13:44 Linaclotide (Linzess) 290 mcg BEFORE BREAKFAST ORAL 01/10/20 06:30 04/09/20 06:29 01/16/20 05:52 Midodrine (Pro-Amatine) 10 mg Q8HR ORAL 01/15/20 14:00 04/13/20 17:59 01/16/20 05:52 Norepinephrine Bitartrate 250 ml @ 0 mls/hr Q24H IV 01/14/20 11:45 01/17/20 11:37 01/14/20 12:09 Ondansetron HCl (Zofran) 4 mg Q6H PRN IVP Nausea & Vomiting 01/10/20 06:30 02/09/20 06:29 Oxymetazoline HCl (Afrin Nasal [place]) 2 spray Q12HR PRN NASAL dry nasal passage 01/11/20 08:00 04/10/20 07:59 Pantoprazole (Protonix) 40 mg EVERY 12 HOURS IVP 01/05/20 21:00 02/04/20 20:59 01/15/20 20:41 Polyethylene Glycol (Miralax) 17 gm BEDTIME NG 01/11/20 21:00 02/08/20 20:59 01/15/20 20:41 Sennosides (Senokot) 8.6 mg QHS NG 01/11/20 21:00 02/04/20 20:59 01/15/20 20:42 Vancomycin HCl (Vanco pharmacy to dose) 1 ea DAILY PRN MISC Per rx protocol 01/12/20 14:45 02/11/20 14:44 Vancomycin HCl 1 gm/Dextrose 275 ml @ 184 mls/hr ONCE ONCE IVPB 01/16/20 08:00 01/16/20 09:29 Last 24 Hour Vital Signs Date Time Temp Pulse Resp B/P (MAP) Pulse Ox O2 Delivery O2 Flow Rate FiO2 01/16/20 06:00 95 22 118/68 (85) 97 01/16/20 05:00 98 20 126/61 (82) 97 01/16/20 04:00 1.0 01/16/20 04:00 Room Air 01/16/20 04:00 95 01/16/20 04:00 97.8 100 19 133/61 (85) 98 01/16/20 03:00 96 18 146/72 (96) 98 01/16/20 02:00 95 18 129/65 (86) 98 01/16/20 01:00 98 20 126/66 (86) 97 01/16/20 00:00 98.0 97 16 123/60 (81) 97 01/16/20 00:00 1.0 01/16/20 00:00 Room Air 01/15/20 23:00 94 18 127/65 (85) 97 01/15/20 22:00 97 16 133/61 (85) 97 01/15/20 21:00 96 17 127/68 (87) 98 01/15/20 20:00 97 01/15/20 20:00 Room Air 01/15/20 20:00 97.5 100 18 126/59 (81) 98 01/15/20 20:00 1.0 01/15/20 19:02 92 16 100 Nasal Cannula 2.0 28 01/15/20 19:02 100 Nasal Cannula 2.0 28 01/15/20 19:00 94 18 126/74 (91) 98 01/15/20 18:00 96 17 111/66 (81) 97 01/15/20 17:00 93 17 117/67 (84) 95 01/15/20 16:00 1.0 01/15/20 16:00 97.0 95 16 135/65 (88) 100 01/15/20 16:00 Room Air 01/15/20 15:39 108 01/15/20 15:00 101 21 139/84 (102) 99 01/15/20 14:00 97 17 130/64 (86) 99 01/15/20 13:00 85 15 122/63 (82) 99 01/15/20 12:00 Nasal Cannula 1.0 01/15/20 12:00 1.0 01/15/20 12:00 97.6 95 14 131/59 (83) 99 01/15/20 11:45 114/53 01/15/20 11:20 80 01/15/20 11:00 89 18 114/53 (73) 100 01/15/20 10:00 97 17 124/62 (82) 100 01/15/20 09:00 90 18 109/57 (74) 100 01/15/20 08:01 90 01/15/20 08:00 Nasal Cannula 1.0 01/15/20 08:00 1.0 01/15/20 08:00 97.9 93 15 122/53 (76) 100 01/15/20 07:40 96 16 100 Nasal Cannula 2.0 28 01/15/20 07:40 100 Nasal Cannula 2.0 28 01/15/20 07:07 80 14 95/58 (70) 100 01/15/20 07:00 76 12 73/44 (54) 100 01/15/20 06:00 87 14 96/56 (69) 100 01/15/20 05:00 89 14 110/56 (74) 99 01/15/20 04:00 90 01/15/20 04:00 1.0 01/15/20 04:00 Venturi Mask 5.0 01/15/20 04:00 98.0 89 15 104/57 (73) 99 01/15/20 04:00 1.0 01/15/20 03:00 91 15 103/56 (72) 100 01/15/20 02:00 91 14 110/61 (77) 99 01/15/20 01:00 92 15 117/62 (80) 99 01/15/20 00:00 Venturi Mask 5.0 01/15/20 00:00 2.0 01/15/20 00:00 91 15 111/57 (75) 99 01/14/20 23:00 73 13 87/49 (62) 100 01/14/20 22:00 90 15 125/63 (83) 99 01/14/20 21:00 76 13 97/51 (66) 100 01/14/20 20:23 93 01/14/20 20:00 Venturi Mask 5.0 01/14/20 20:00 97.1 91 17 113/63 (80) 100 01/14/20 20:00 5.0 28 01/14/20 19:48 89 16 99 Nasal Cannula 2.0 28 01/14/20 19:48 99 Nasal Cannula 2.0 28 01/14/20 19:00 91 16 104/63 (77) 100 01/14/20 18:00 93 15 98/53 (68) 100 01/14/20 17:30 98 15 111/65 (80) 100 01/14/20 17:30 92 15 98/53 (68) 100 01/14/20 17:00 94 16 99/56 (70) 100 01/14/20 16:30 95 18 99/56 (70) 100 01/14/20 16:00 97.6 96 15 133/75 (94) 98 01/14/20 16:00 89 01/14/20 16:00 5.0 28 01/14/20 16:00 Venturi Mask 5.0 01/14/20 15:30 87 15 115/59 (77) 99 01/14/20 15:00 90 15 113/63 (80) 99 01/14/20 14:30 89 14 114/60 (78) 99 01/14/20 14:00 87 14 120/65 (83) 99 01/14/20 13:30 90 13 130/65 (86) 99 01/14/20 13:00 83 13 83/52 (62) 98 01/14/20 12:30 91 14 101/53 (69) 100 01/14/20 12:30 100 Cool Aerosol 5.0 28 01/14/20 12:09 113/67 01/14/20 12:00 Venturi Mask 5.0 01/14/20 12:00 92 01/14/20 12:00 5.0 28 01/14/20 12:00 97.5 89 18 113/67 (82) 99 01/14/20 11:30 91 16 125/68 (87) 100 01/14/20 11:00 93 21 119/69 (86) 100 01/14/20 10:30 94 16 134/68 (90) 100 01/14/20 10:15 93 15 149/73 (98) 99 01/14/20 10:00 77 13 105/58 (74) 99 01/14/20 09:30 76 15 137/76 (96) 100 01/14/20 09:00 79 13 115/61 (79) 100 01/14/20 08:30 87 16 127/65 (85) 97 01/14/20 08:00 Venturi Mask 10.0 01/14/20 08:00 10.0 40 01/14/20 08:00 97.7 85 16 125/65 (85) 100 01/14/20 08:00 93 01/14/20 07:30 100 Cool Aerosol 10.0 40 01/14/20 07:30 76 13 126/57 (80) 100 01/14/20 07:00 76 13 101/53 (69) 100 Intake and Output 01/15/20 01/16/20 19:00 07:00 Intake Total 1735 ml 1050 ml Output Total 765 ml 740 ml Balance 970 ml 310 ml Free Water 100 ml IV Total 1465 ml 650 ml Tube Feeding 270 ml 300 ml Output Urine Total 765 ml 690 ml Stool Total 50 ml # Bowel Movements 3 3 Labs Test 01/13/20 07:37 01/13/20 11:38 01/13/20 12:09 01/13/20 16:48 Arterial Blood pH 7.552 (7.350-7.450) 7.563 (7.350-7.450) Arterial Blood Partial Pressure CO2 26.8 mmHg (35.0-45.0) 24.1 mmHg (35.0-45.0) Arterial Blood Partial Pressure O2 80.8 mmHg (75.0-100.0) 74.0 mmHg (75.0-100.0) Arterial Blood HCO3 23.0 mmol/L (22.0-26.0) 21.2 mmol/L (22.0-26.0) Arterial Blood Oxygen Saturation 96.0 % (95-100) 95.2 % (95-100) Arterial Blood Base Excess 1.2 (-2-2) -0.3 (-2-2) Asael Test Positive Positive Test 01/13/20 20:48 01/14/20 05:11 01/14/20 05:22 01/14/20 09:55 POC Whole Blood Glucose 105 MG/DL (74-106) 99 MG/DL (74-106) White Blood Count 6.9 K/UL (4.8-10.8) Red Blood Count 3.28 M/UL (4.70-6.10) Hemoglobin 9.3 G/DL (14.2-18.0) Hematocrit 28.9 % (42.0-52.0) Mean Corpuscular Volume 88 FL (80-99) Mean Corpuscular Hemoglobin 28.3 PG (27.0-31.0) Mean Corpuscular Hemoglobin Concent 32.1 G/DL (32.0-36.0) Red Cell Distribution Width 20.8 % (11.6-14.8) Platelet Count 49 K/UL (150-450) Mean Platelet Volume 7.7 FL (6.5-10.1) Neutrophils (%) (Auto) % (45.0-75.0) Lymphocytes (%) (Auto) % (20.0-45.0) Monocytes (%) (Auto) % (1.0-10.0) Eosinophils (%) (Auto) % (0.0-3.0) Basophils (%) (Auto) % (0.0-2.0) Differential Total Cells Counted 100 Neutrophils % (Manual) 68 % (45-75) Lymphocytes % (Manual) 19 % (20-45) Monocytes % (Manual) 3 % (1-10) Eosinophils % (Manual) 0 % (0-3) Basophils % (Manual) 0 % (0-2) Band Neutrophils 10 % (0-8) Nucleated Red Blood Cells 1 /100 WBC Platelet Estimate Decreased Platelet Morphology Normal Polychromasia 1+ Hypochromasia 2+ Anisocytosis 2+ Sodium Level 142 MMOL/L (136-145) Potassium Level 2.9 MMOL/L (3.5-5.1) Chloride Level 107 MMOL/L (98-107) Carbon Dioxide Level 23 MMOL/L (21-32) Anion Gap 13 mmol/L (5-15) Blood Urea Nitrogen 33 mg/dL (7-18) Creatinine 2.5 MG/DL (0.55-1.30) Estimat Glomerular Filtration Rate 31.0 mL/min (>60) Glucose Level 90 MG/DL (74-106) Uric Acid 7.9 MG/DL (2.6-7.2) Calcium Level 6.5 MG/DL (8.5-10.1) Phosphorus Level 2.7 MG/DL (2.5-4.9) Magnesium Level 1.8 MG/DL (1.8-2.4) Total Bilirubin 0.6 MG/DL (0.2-1.0) Aspartate Amino Transf (AST/SGOT) 146 U/L (15-37) Alanine Aminotransferase (ALT/SGPT) 28 U/L (12-78) Alkaline Phosphatase 127 U/L (46-116) C-Reactive Protein, Quantitative > 70.0 mg/dL (0.00-0.90) Pro-B-Type Natriuretic Peptide 2086 pg/mL (0-125) Total Protein 5.0 G/DL (6.4-8.2) Albumin 2.0 G/DL (3.4-5.0) Globulin 3.0 g/dL Albumin/Globulin Ratio 0.7 (1.0-2.7) Random Vancomycin Level 10.8 ug/mL Ionized Calcium (Measured) 0.88 mmol/L (1.10-1.35) Test 01/14/20 12:14 01/14/20 16:44 01/15/20 05:40 01/15/20 07:16 POC Whole Blood Glucose 75 MG/DL (74-106) 85 MG/DL (74-106) 79 MG/DL (74-106) White Blood Count 7.5 K/UL (4.8-10.8) Red Blood Count 2.76 M/UL (4.70-6.10) Hemoglobin 7.8 G/DL (14.2-18.0) Hematocrit 24.3 % (42.0-52.0) Mean Corpuscular Volume 88 FL (80-99) Mean Corpuscular Hemoglobin 28.4 PG (27.0-31.0) Mean Corpuscular Hemoglobin Concent 32.2 G/DL (32.0-36.0) Red Cell Distribution Width 20.4 % (11.6-14.8) Platelet Count 46 K/UL (150-450) Mean Platelet Volume 10.5 FL (6.5-10.1) Neutrophils (%) (Auto) % (45.0-75.0) Lymphocytes (%) (Auto) % (20.0-45.0) Monocytes (%) (Auto) % (1.0-10.0) Eosinophils (%) (Auto) % (0.0-3.0) Basophils (%) (Auto) % (0.0-2.0) Differential Total Cells Counted 100 Neutrophils % (Manual) 79 % (45-75) Lymphocytes % (Manual) 13 % (20-45) Monocytes % (Manual) 1 % (1-10) Eosinophils % (Manual) 0 % (0-3) Basophils % (Manual) 0 % (0-2) Myelocytes % 1 % (0-0) Band Neutrophils 6 % (0-8) Nucleated Red Blood Cells 1 /100 WBC Platelet Estimate Decreased Platelet Morphology Normal Polychromasia 1+ Anisocytosis 2+ Sodium Level 141 MMOL/L (136-145) Potassium Level 2.7 MMOL/L (3.5-5.1) Chloride Level 109 MMOL/L (98-107) Carbon Dioxide Level 20 MMOL/L (21-32) Anion Gap 11 mmol/L (5-15) Blood Urea Nitrogen 25 mg/dL (7-18) Creatinine 1.9 MG/DL (0.55-1.30) Estimat Glomerular Filtration Rate 42.5 mL/min (>60) Glucose Level 89 MG/DL (74-106) Uric Acid 6.4 MG/DL (2.6-7.2) Calcium Level 6.5 MG/DL (8.5-10.1) Phosphorus Level 2.4 MG/DL (2.5-4.9) Magnesium Level 1.6 MG/DL (1.8-2.4) Total Bilirubin 0.4 MG/DL (0.2-1.0) Direct Bilirubin 0.2 MG/DL (0.0-0.3) Aspartate Amino Transf (AST/SGOT) 81 U/L (15-37) Alanine Aminotransferase (ALT/SGPT) 21 U/L (12-78) Alkaline Phosphatase 99 U/L (46-116) Total Protein 4.6 G/DL (6.4-8.2) Albumin 1.7 G/DL (3.4-5.0) Test 01/15/20 17:30 01/16/20 03:00 White Blood Count 8.3 K/UL (4.8-10.8) Red Blood Count 2.91 M/UL (4.70-6.10) Hemoglobin 8.2 G/DL (14.2-18.0) Hematocrit 26.2 % (42.0-52.0) Mean Corpuscular Volume 90 FL (80-99) Mean Corpuscular Hemoglobin 28.2 PG (27.0-31.0) Mean Corpuscular Hemoglobin Concent 31.3 G/DL (32.0-36.0) Red Cell Distribution Width 21.4 % (11.6-14.8) Platelet Count 50 K/UL (150-450) Mean Platelet Volume 9.6 FL (6.5-10.1) Neutrophils (%) (Auto) % (45.0-75.0) Lymphocytes (%) (Auto) % (20.0-45.0) Monocytes (%) (Auto) % (1.0-10.0) Eosinophils (%) (Auto) % (0.0-3.0) Basophils (%) (Auto) % (0.0-2.0) Uric Acid 5.5 MG/DL (2.6-7.2) Random Vancomycin Level 10.5 ug/mL Height (Feet): 6 Height (Inches): 0.00 Weight (Pounds): 150 Objective PE: Vitals: reviewed General Appearance: NAD HEENT: normocephalic, atraumatic Neck: non-tender, normal alignment Respiratory/Chest: nromal breath sounds bilaterally Cardiovascular/Chest: normal peripheral pulses, normal rate Abdomen: normal bowel sounds, soft, nontender Extremities: normal range of motion Samuel Son MD Jan 16, 2020 06:56
[2020-01-16 06:59] LABS: PHOSPHORUS 2.6 MG/DL (2.5-4.9)
[2020-01-16] MEDS ORDERED: Vancomycin 1gm in D5W 275ml IVPB ONE (08:00)
[2020-01-16] MEDS: Pantoprazole Inj IVP SCH ×2 (08:57→22:32)
[2020-01-16] MEDS: Docusate 100mg cap ORAL SCH (08:58)
--- NOTE | 2020-01-16 09:15 | Infectious Diseases Prog Note ---
Assessment/Plan Assessment: Shock- likely combination sepstic and metabolic derangements- SP Probable UTI -01/10 u/a wbc 60-80, nit neg, leuk +3; ucx Neg -Bcx NTD Probable PNA -01/12 CXR: No significant change in bilateral patchy pulmonary opacities, concerning for pneumonia versus edemaq. Small bilateral pleural effusions. -01/10 CXR: Bilateral interstitial and airspace infiltrates versus edema persists. sp cx MRSA (S Vancomycin, bactrim, tetracycline) COVID19 neg -01/04 rapid COVID PCR neg x1 influenza PCR neg CXR: Mild interstitial vascular prominence. No focal infiltrate or consolidation. Acute resp failure- 2ry to vol overload and metabolic acidosis- on VM now 01/10 s- sp intubation 01/10> extubated 01/12 Low grade fever- SP No leukocytosis> pancytopenia -u/a neg, ucx neg Tachycardia, SP-2 ry to severe dehydration- no evidence of infection AVIS,worsened Hypernatremia>Hyponatremia R>L hydronephrosis Pancreatic lesions -Abd US: Bilateral right greater than left hydronephrosis, increased since prior study of 03/20/2019. Etiology not demonstrated. Empty bladder with a Mathew catheter. 3 hypoechoic lesions within the pancreatic head and body, each measuring about 5 mm. Appearance nonspecific. Bilateral pleural effusions. Echogenic liver, consistent with hepatocellular disease. Surface likely nodularity raises concern for cirrhosis. Gallbladder sludge. Negative for dilated bile ducts. Probable nonobstructive left intrarenal calculi. Multiple hepatic cysts Acute on chronic encephalopathy -CT head: 1. Markedly limited, near nondiagnostic evaluation due to motion artifact. Grossly, age-related changes and small vessel disease of aging are noted. Again grossly, no acute intracranial pathology is detected. If there is a high degree of concern or if there is concern for subtle abnormalities, magnetic resonance imaging of the brain with diffusion-weighted sequences should be performed, due to the markedly limited nature of the current study. Close clinical correlation is necessary. HTN COPD DM2 paraplegia Dementia non verbal MI resident ([facility]) Plan: -Cont empiric Cefepime #3 (abx d #6/) given worsening thrombocytopenia - IV Vancomycin #5/7-10 for MRSA PNA -01/13 SP ZOsyn #4 -01/06 SP Ceftriaxone #2 -01/04 Sp IV Vancomycin x1, Cefepime x1 -f/u cx -Monitor CBC/CMP, temperatures -Renal, cards f/u -f/u ucx, Bcx x2, sp cx -ICU care -aspiration precautions Thank you for consulting [facility]. Will continue to follow along with you. Discussed with RN. Subjective Allergies: Coded Allergies: No Known Allergies (Unverified , 03/18/19) afebrile at RA no leukocytosis Objective Last 24 Hour Vital Signs Date Time Temp Pulse Resp B/P (MAP) Pulse Ox O2 Delivery O2 Flow Rate FiO2 01/16/20 08:00 98.1 95 22 143/65 (91) 97 01/16/20 07:00 97 20 137/84 (101) 97 01/16/20 06:00 95 22 118/68 (85) 97 01/16/20 05:00 98 20 126/61 (82) 97 01/16/20 04:00 1.0 01/16/20 04:00 Room Air 01/16/20 04:00 95 01/16/20 04:00 97.8 100 19 133/61 (85) 98 01/16/20 03:00 96 18 146/72 (96) 98 01/16/20 02:00 95 18 129/65 (86) 98 01/16/20 01:00 98 20 126/66 (86) 97 01/16/20 00:00 98.0 97 16 123/60 (81) 97 01/16/20 00:00 1.0 01/16/20 00:00 Room Air 01/15/20 23:00 94 18 127/65 (85) 97 01/15/20 22:00 97 16 133/61 (85) 97 01/15/20 21:00 96 17 127/68 (87) 98 01/15/20 20:00 97 01/15/20 20:00 Room Air 01/15/20 20:00 97.5 100 18 126/59 (81) 98 01/15/20 20:00 1.0 01/15/20 19:02 92 16 100 Nasal Cannula 2.0 28 01/15/20 19:02 100 Nasal Cannula 2.0 28 01/15/20 19:00 94 18 126/74 (91) 98 01/15/20 18:00 96 17 111/66 (81) 97 01/15/20 17:00 93 17 117/67 (84) 95 01/15/20 16:00 1.0 01/15/20 16:00 97.0 95 16 135/65 (88) 100 01/15/20 16:00 Room Air 01/15/20 15:39 108 01/15/20 15:00 101 21 139/84 (102) 99 01/15/20 14:00 97 17 130/64 (86) 99 01/15/20 13:00 85 15 122/63 (82) 99 01/15/20 12:00 Nasal Cannula 1.0 01/15/20 12:00 1.0 01/15/20 12:00 97.6 95 14 131/59 (83) 99 01/15/20 11:45 114/53 01/15/20 11:20 80 01/15/20 11:00 89 18 114/53 (73) 100 01/15/20 10:00 97 17 124/62 (82) 100 Height (Feet): 6 Height (Inches): 0.00 Weight (Pounds): 150 CARDIOVASCULAR: No murmur. LUNGS: Poor exchange. ABDOMEN: Bowel sounds distant. EXTREMITIES: No cyanosis or edema. NEUROLOGIC: The patient moves all extremities, slightly weak. Laboratory Tests Test 01/15/20 17:30 01/16/20 03:00 POC Whole Blood Glucose Pending White Blood Count 8.3 K/UL (4.8-10.8) Red Blood Count 2.91 M/UL (4.70-6.10) L Hemoglobin 8.2 G/DL (14.2-18.0) L Hematocrit 26.2 % (42.0-52.0) L Mean Corpuscular Volume 90 FL (80-99) Mean Corpuscular Hemoglobin 28.2 PG (27.0-31.0) Mean Corpuscular Hemoglobin Concent 31.3 G/DL (32.0-36.0) L Red Cell Distribution Width 21.4 % (11.6-14.8) H Platelet Count 50 K/UL (150-450) L Mean Platelet Volume 9.6 FL (6.5-10.1) Neutrophils (%) (Auto) % (45.0-75.0) Lymphocytes (%) (Auto) % (20.0-45.0) Monocytes (%) (Auto) % (1.0-10.0) Eosinophils (%) (Auto) % (0.0-3.0) Basophils (%) (Auto) % (0.0-2.0) Neutrophils % (Manual) Pending Lymphocytes % (Manual) Pending Platelet Estimate Pending Platelet Morphology Pending Sodium Level 141 MMOL/L (136-145) Potassium Level 3.5 MMOL/L (3.5-5.1) Chloride Level 111 MMOL/L (98-107) H Carbon Dioxide Level 18 MMOL/L (21-32) L Anion Gap 12 mmol/L (5-15) Blood Urea Nitrogen 23 mg/dL (7-18) H Creatinine 1.8 MG/DL (0.55-1.30) H Estimat Glomerular Filtration Rate 45.3 mL/min (>60) Glucose Level 93 MG/DL (74-106) Uric Acid 5.5 MG/DL (2.6-7.2) Calcium Level 7.5 MG/DL (8.5-10.1) L Phosphorus Level 2.6 MG/DL (2.5-4.9) Magnesium Level 2.1 MG/DL (1.8-2.4) Total Bilirubin 0.4 MG/DL (0.2-1.0) Aspartate Amino Transf (AST/SGOT) 64 U/L (15-37) H Alanine Aminotransferase (ALT/SGPT) 19 U/L (12-78) Alkaline Phosphatase 131 U/L (46-116) H C-Reactive Protein, Quantitative 32.1 mg/dL (0.00-0.90) H Pro-B-Type Natriuretic Peptide 3525 pg/mL (0-125) H Total Protein 5.1 G/DL (6.4-8.2) L Albumin 2.2 G/DL (3.4-5.0) L Globulin 2.9 g/dL Albumin/Globulin Ratio 0.8 (1.0-2.7) L Random Vancomycin Level 10.5 ug/mL Current Medications Medications (Trade) Dose Ordered Sig/Jesse Route PRN Reason Start Time Stop Time Status Last Admin Dose Admin Acetaminophen (Tylenol) 650 mg Q4H PRN ORAL PRNH/TEMP 01/05/20 20:15 02/04/20 20:14 01/12/20 03:10 Albuterol/ Ipratropium (Albuterol/ Ipratropium) 3 ml Q4H PRN HHN Bronchospasm 01/15/20 15:36 01/20/20 15:35 Allopurinol (allopurinoL) 300 mg DAILY NG 01/16/20 09:00 02/06/20 14:14 01/16/20 08:58 Barium Sulfate (Varibar Honey) 250 ml NOW PRN MC RAD 01/14/20 11:45 01/17/20 11:31 Barium Sulfate (Varibar [place]) 240 ml NOW PRN MC RAD 01/14/20 11:45 01/17/20 11:31 Barium Sulfate (Varibar Pudding) 230 ml NOW PRN RAD 01/14/20 11:45 01/17/20 11:31 Barium Sulfate (Varibar Thin Liquid powder) 148 gm NOW PRN RAD 01/14/20 11:45 01/17/20 11:31 Bisacodyl (Dulcolax) 10 mg DAILY PRN RECTAL Constipation 01/05/20 20:15 04/04/20 20:14 Calcium Gluconate/ Sodium Chloride 50 ml @ 50 mls/hr Q8HR IVPB 01/15/20 14:00 04/12/20 20:59 01/16/20 05:51 Cefepime HCl 1 gm/ Dextrose 55 ml @ 110 mls/hr Q24H IVPB 01/14/20 11:00 01/21/20 10:59 01/15/20 11:51 Chlorhexidine Gluconate (Navya-Hex 2%) 1 applic DAILY@2000 TOPIC 01/11/20 20:00 04/10/20 19:59 01/15/20 20:41 Dextrose (Dextrose 50%) 25 ml Q30M PRN IV Hypoglycemia 01/05/20 20:15 04/04/20 20:14 Dextrose (Dextrose 50%) 50 ml Q30M PRN IV Hypoglycemia 01/05/20 20:15 04/04/20 20:14 Dextrose/Sodium Chloride 1,000 ml @ 50 mls/hr Q20H IV 01/12/20 12:00 02/11/20 11:59 01/15/20 10:10 Docusate Sodium (Colace) 200 mg DAILY ORAL 01/06/20 09:00 02/05/20 08:59 01/14/20 08:34 Gadobutrol (Gadavist) 7.5 mmol NOW PRN IV Radiology Procedure 01/15/20 13:45 01/19/20 13:44 Linaclotide (Linzess) 290 mcg BEFORE BREAKFAST ORAL 01/10/20 06:30 04/09/20 06:29 01/16/20 05:52 Midodrine (Pro-Amatine) 10 mg Q8HR ORAL 01/15/20 14:00 04/13/20 17:59 01/16/20 05:52 Norepinephrine Bitartrate 250 ml @ 0 mls/hr Q24H IV 01/14/20 11:45 01/17/20 11:37 01/14/20 12:09 Ondansetron HCl (Zofran) 4 mg Q6H PRN IVP Nausea & Vomiting 01/10/20 06:30 02/09/20 06:29 Oxymetazoline HCl (Afrin Nasal [place]) 2 spray Q12HR PRN NASAL dry nasal passage 01/11/20 08:00 04/10/20 07:59 Pantoprazole (Protonix) 40 mg EVERY 12 HOURS IVP 01/05/20 21:00 02/04/20 20:59 01/16/20 08:57 Polyethylene Glycol (Miralax) 17 gm BEDTIME NG 01/11/20 21:00 02/08/20 20:59 01/15/20 20:41 Sennosides (Senokot) 8.6 mg QHS NG 01/11/20 21:00 02/04/20 20:59 01/15/20 20:42 Vancomycin HCl (Vanco pharmacy to dose) 1 ea DAILY PRN MISC Per rx protocol 01/12/20 14:45 02/11/20 14:44 Vancomycin HCl 1 gm/Dextrose 275 ml @ 184 mls/hr ONCE ONCE IVPB 01/16/20 08:00 01/16/20 09:29 01/16/20 08:57 Clara Guerin M.D. Jan 16, 2020 09:15
--- NOTE | 2020-01-16 09:27 | General Progress Note ---
Subjective Constitutional: Reports: weakness Allergies: Coded Allergies: No Known Allergies (Unverified , 03/18/19) All Systems: reviewed and negative except above Subjective ng calm in icu Objective Last 24 Hour Vital Signs Date Time Temp Pulse Resp B/P (MAP) Pulse Ox O2 Delivery O2 Flow Rate FiO2 01/16/20 08:00 98.1 95 22 143/65 (91) 97 01/16/20 07:00 97 20 137/84 (101) 97 01/16/20 06:00 95 22 118/68 (85) 97 01/16/20 05:00 98 20 126/61 (82) 97 01/16/20 04:00 1.0 01/16/20 04:00 Room Air 01/16/20 04:00 95 01/16/20 04:00 97.8 100 19 133/61 (85) 98 01/16/20 03:00 96 18 146/72 (96) 98 01/16/20 02:00 95 18 129/65 (86) 98 01/16/20 01:00 98 20 126/66 (86) 97 01/16/20 00:00 98.0 97 16 123/60 (81) 97 01/16/20 00:00 1.0 01/16/20 00:00 Room Air 01/15/20 23:00 94 18 127/65 (85) 97 01/15/20 22:00 97 16 133/61 (85) 97 01/15/20 21:00 96 17 127/68 (87) 98 01/15/20 20:00 97 01/15/20 20:00 Room Air 01/15/20 20:00 97.5 100 18 126/59 (81) 98 01/15/20 20:00 1.0 01/15/20 19:02 92 16 100 Nasal Cannula 2.0 28 01/15/20 19:02 100 Nasal Cannula 2.0 28 01/15/20 19:00 94 18 126/74 (91) 98 01/15/20 18:00 96 17 111/66 (81) 97 01/15/20 17:00 93 17 117/67 (84) 95 01/15/20 16:00 1.0 01/15/20 16:00 97.0 95 16 135/65 (88) 100 01/15/20 16:00 Room Air 01/15/20 15:39 108 01/15/20 15:00 101 21 139/84 (102) 99 01/15/20 14:00 97 17 130/64 (86) 99 01/15/20 13:00 85 15 122/63 (82) 99 01/15/20 12:00 Nasal Cannula 1.0 01/15/20 12:00 1.0 01/15/20 12:00 97.6 95 14 131/59 (83) 99 01/15/20 11:45 114/53 01/15/20 11:20 80 01/15/20 11:00 89 18 114/53 (73) 100 01/15/20 10:00 97 17 124/62 (82) 100 Intake and Output 01/15/20 01/16/20 19:00 07:00 Intake Total 1735 ml 1050 ml Output Total 765 ml 740 ml Balance 970 ml 310 ml Free Water 100 ml IV Total 1465 ml 650 ml Tube Feeding 270 ml 300 ml Output Urine Total 765 ml 690 ml Stool Total 50 ml # Bowel Movements 3 3 Laboratory Tests 01/15/20 17:30: POC Whole Blood Glucose [Pending] 01/16/20 03:00: White Blood Count 8.3, Red Blood Count 2.91L, Hemoglobin 8.2L, Hematocrit 26.2L, Mean Corpuscular Volume 90, Mean Corpuscular Hemoglobin 28.2, Mean Corpuscular Hemoglobin Concent 31.3L, Red Cell Distribution Width 21.4H, Platelet Count 50L, Mean Platelet Volume 9.6, Neutrophils (%) (Auto) , Lymphocytes (%) (Auto) , Monocytes (%) (Auto) , Eosinophils (%) (Auto) , Basophils (%) (Auto) , Neutrophils % (Manual) [Pending], Lymphocytes % (Manual) [Pending], Platelet Estimate [Pending], Platelet Morphology [Pending], Sodium Level 141, Potassium Level 3.5, Chloride Level 111H, Carbon Dioxide Level 18L, Anion Gap 12, Blood Urea Nitrogen 23H, Creatinine 1.8H, Estimat Glomerular Filtration Rate 45.3, Glucose Level 93, Uric Acid 5.5, Calcium Level 7.5L, Phosphorus Level 2.6, Magnesium Level 2.1, Total Bilirubin 0.4, Aspartate Amino Transf (AST/SGOT) 64H, Alanine Aminotransferase (ALT/SGPT) 19, Alkaline Phosphatase 131H, C-Reactive Protein, Quantitative 32.1H, Pro-B-Type Natriuretic Peptide 3525H, Total Protein 5.1L, Albumin 2.2L, Globulin 2.9, Albumin/Globulin Ratio 0.8L, Random Vancomycin Level 10.5 Height (Feet): 6 Height (Inches): 0.00 Weight (Pounds): 150 General Appearance: lethargic EENT: normal ENT inspection Neck: normal alignment Cardiovascular: normal peripheral pulses, normal rate, regular rhythm Respiratory/Chest: chest wall non-tender, lungs clear, normal breath sounds Abdomen: normal bowel sounds, non tender, soft Extremities: normal inspection Edema: no edema noted Arm (L), no edema noted Arm (R), no edema noted Leg (L), no edema noted Leg (R), no edema noted Pedal (L), no edema noted Pedal (R), no edema noted Generalized Neurologic: motor weakness Skin: normal pigmentation, warm/dry Assessment/Plan Problem List: (1) Anemia ICD Codes: D64.9 - Anemia, unspecified SNOMED: 109596881 (2) Paraplegia ICD Codes: G82.20 - Paraplegia, unspecified SNOMED: 13044078 (3) Diabetes ICD Codes: E11.9 - Type 2 diabetes mellitus without complications SNOMED: 48907132 (4) Weak ICD Codes: R53.1 - Weakness SNOMED: 10716922 (5) HTN (hypertension) ICD Codes: I10 - Essential (primary) hypertension SNOMED: 14175075 (6) ARF (acute renal failure) ICD Codes: N17.9 - Acute kidney failure, unspecified SNOMED: 63580745 (7) Altered level of consciousness ICD Codes: R40.4 - Transient alteration of awareness SNOMED: 5915838 (8) Dehydration ICD Codes: E86.0 - Dehydration SNOMED: 87289486 (9) Hypernatremia ICD Codes: E87.0 - Hyperosmolality and hypernatremia SNOMED: 457053783 Status: unchanged Assessment/Plan: o2 pulm tx abx ivf cbc bmp am pulm cardio f/u Farrukh Ríos DO Jan 16, 2020 09:27
--- NOTE | 2020-01-16 09:48 | Pulmonology Progress Note ---
Subjective ROS Limited/Unobtainable: No Interval Events: On nasal o2 Constitutional: Reports: no symptoms HEENT: Repors: no symptoms Respiratory: Reports: no symptoms Cardiovascular: Reports: no symptoms Gastrointestinal/Abdominal: Reports: no symptoms Genitourinary: Reports: no symptoms Allergies: Coded Allergies: No Known Allergies (Unverified , 03/18/19) All Systems: reviewed and negative except above Objective Last 24 Hour Vital Signs Date Time Temp Pulse Resp B/P (MAP) Pulse Ox O2 Delivery O2 Flow Rate FiO2 01/16/20 08:00 98.1 95 22 143/65 (91) 97 01/16/20 07:00 97 20 137/84 (101) 97 01/16/20 06:00 95 22 118/68 (85) 97 01/16/20 05:00 98 20 126/61 (82) 97 01/16/20 04:00 1.0 01/16/20 04:00 Room Air 01/16/20 04:00 95 01/16/20 04:00 97.8 100 19 133/61 (85) 98 01/16/20 03:00 96 18 146/72 (96) 98 01/16/20 02:00 95 18 129/65 (86) 98 01/16/20 01:00 98 20 126/66 (86) 97 01/16/20 00:00 98.0 97 16 123/60 (81) 97 01/16/20 00:00 1.0 01/16/20 00:00 Room Air 01/15/20 23:00 94 18 127/65 (85) 97 01/15/20 22:00 97 16 133/61 (85) 97 01/15/20 21:00 96 17 127/68 (87) 98 01/15/20 20:00 97 01/15/20 20:00 Room Air 01/15/20 20:00 97.5 100 18 126/59 (81) 98 01/15/20 20:00 1.0 01/15/20 19:02 92 16 100 Nasal Cannula 2.0 28 01/15/20 19:02 100 Nasal Cannula 2.0 28 01/15/20 19:00 94 18 126/74 (91) 98 01/15/20 18:00 96 17 111/66 (81) 97 01/15/20 17:00 93 17 117/67 (84) 95 01/15/20 16:00 1.0 01/15/20 16:00 97.0 95 16 135/65 (88) 100 01/15/20 16:00 Room Air 01/15/20 15:39 108 01/15/20 15:00 101 21 139/84 (102) 99 01/15/20 14:00 97 17 130/64 (86) 99 01/15/20 13:00 85 15 122/63 (82) 99 01/15/20 12:00 Nasal Cannula 1.0 01/15/20 12:00 1.0 01/15/20 12:00 97.6 95 14 131/59 (83) 99 01/15/20 11:45 114/53 01/15/20 11:20 80 01/15/20 11:00 89 18 114/53 (73) 100 01/15/20 10:00 97 17 124/62 (82) 100 Intake and Output 01/15/20 01/16/20 19:00 07:00 Intake Total 1735 ml 1050 ml Output Total 765 ml 740 ml Balance 970 ml 310 ml Free Water 100 ml IV Total 1465 ml 650 ml Tube Feeding 270 ml 300 ml Output Urine Total 765 ml 690 ml Stool Total 50 ml # Bowel Movements 3 3 General Appearance: no acute distress HEENT: normocephalic Respiratory: chest wall non-tender, lungs clear Cardiovascular: normal peripheral pulses, normal rate Abdomen: normal bowel sounds Laboratory Tests 01/15/20 17:30: POC Whole Blood Glucose [Pending] 01/16/20 03:00: White Blood Count 8.3, Red Blood Count 2.91L, Hemoglobin 8.2L, Hematocrit 26.2L, Mean Corpuscular Volume 90, Mean Corpuscular Hemoglobin 28.2, Mean Corpuscular Hemoglobin Concent 31.3L, Red Cell Distribution Width 21.4H, Platelet Count 50L, Mean Platelet Volume 9.6, Neutrophils (%) (Auto) , Lymphocytes (%) (Auto) , Monocytes (%) (Auto) , Eosinophils (%) (Auto) , Basophils (%) (Auto) , Neutrophils % (Manual) [Pending], Lymphocytes % (Manual) [Pending], Platelet Estimate [Pending], Platelet Morphology [Pending], Sodium Level 141, Potassium Level 3.5, Chloride Level 111H, Carbon Dioxide Level 18L, Anion Gap 12, Blood Urea Nitrogen 23H, Creatinine 1.8H, Estimat Glomerular Filtration Rate 45.3, Glucose Level 93, Uric Acid 5.5, Calcium Level 7.5L, Phosphorus Level 2.6, Magnesium Level 2.1, Total Bilirubin 0.4, Aspartate Amino Transf (AST/SGOT) 64H, Alanine Aminotransferase (ALT/SGPT) 19, Alkaline Phosphatase 131H, C-Reactive Protein, Quantitative 32.1H, Pro-B-Type Natriuretic Peptide 3525H, Total Protein 5.1L, Albumin 2.2L, Globulin 2.9, Albumin/Globulin Ratio 0.8L, Random Vancomycin Level 10.5 Current Medications Medications (Trade) Dose Ordered Sig/Jesse Route PRN Reason Start Time Stop Time Status Last Admin Dose Admin Acetaminophen (Tylenol) 650 mg Q4H PRN ORAL PRNH/TEMP 01/05/20 20:15 02/04/20 20:14 01/12/20 03:10 Albuterol/ Ipratropium (Albuterol/ Ipratropium) 3 ml Q4H PRN HHN Bronchospasm 01/15/20 15:36 01/20/20 15:35 Allopurinol (allopurinoL) 300 mg DAILY NG 01/16/20 09:00 02/06/20 14:14 01/16/20 08:58 Barium Sulfate (Varibar Honey) 250 ml NOW PRN MC RAD 01/14/20 11:45 01/17/20 11:31 Barium Sulfate (Varibar [place]) 240 ml NOW PRN MC RAD 01/14/20 11:45 01/17/20 11:31 Barium Sulfate (Varibar Pudding) 230 ml NOW PRN MC RAD 01/14/20 11:45 01/17/20 11:31 Barium Sulfate (Varibar Thin Liquid powder) 148 gm NOW PRN MC RAD 01/14/20 11:45 01/17/20 11:31 Bisacodyl (Dulcolax) 10 mg DAILY PRN RECTAL Constipation 01/05/20 20:15 04/04/20 20:14 Calcium Gluconate/ Sodium Chloride 50 ml @ 50 mls/hr Q8HR IVPB 01/15/20 14:00 04/12/20 20:59 01/16/20 05:51 Cefepime HCl 1 gm/ Dextrose 55 ml @ 110 mls/hr Q24H IVPB 01/14/20 11:00 01/21/20 10:59 01/15/20 11:51 Chlorhexidine Gluconate (Navya-Hex 2%) 1 applic DAILY@2000 TOPIC 01/11/20 20:00 04/10/20 19:59 01/15/20 20:41 Dextrose (Dextrose 50%) 25 ml Q30M PRN IV Hypoglycemia 01/05/20 20:15 04/04/20 20:14 Dextrose (Dextrose 50%) 50 ml Q30M PRN IV Hypoglycemia 01/05/20 20:15 04/04/20 20:14 Dextrose/Sodium Chloride 1,000 ml @ 50 mls/hr Q20H IV 01/12/20 12:00 02/11/20 11:59 01/15/20 10:10 Docusate Sodium (Colace) 200 mg DAILY ORAL 01/06/20 09:00 02/05/20 08:59 01/14/20 08:34 Gadobutrol (Gadavist) 7.5 mmol NOW PRN IV Radiology Procedure 01/15/20 13:45 01/19/20 13:44 Linaclotide (Linzess) 290 mcg BEFORE BREAKFAST ORAL 01/10/20 06:30 04/09/20 06:29 01/16/20 05:52 Midodrine (Pro-Amatine) 10 mg Q8HR ORAL 01/15/20 14:00 04/13/20 17:59 01/16/20 05:52 Norepinephrine Bitartrate 250 ml @ 0 mls/hr Q24H IV 01/14/20 11:45 01/17/20 11:37 01/14/20 12:09 Ondansetron HCl (Zofran) 4 mg Q6H PRN IVP Nausea & Vomiting 01/10/20 06:30 02/09/20 06:29 Oxymetazoline HCl (Afrin Nasal [place]) 2 spray Q12HR PRN NASAL dry nasal passage 01/11/20 08:00 04/10/20 07:59 Pantoprazole (Protonix) 40 mg EVERY 12 HOURS IVP 01/05/20 21:00 02/04/20 20:59 01/16/20 08:57 Polyethylene Glycol (Miralax) 17 gm BEDTIME NG 01/11/20 21:00 02/08/20 20:59 01/15/20 20:41 Sennosides (Senokot) 8.6 mg QHS NG 01/11/20 21:00 02/04/20 20:59 01/15/20 20:42 Vancomycin HCl (Vanco pharmacy to dose) 1 ea DAILY PRN MISC Per rx protocol 01/12/20 14:45 02/11/20 14:44 Assessment/Plan Assessment/Plan IMPRESSION: 1. Severe metabolic acidosis. Corrected 2. Respiratory failure; now extubated 3. Diarrhea. 4. Acute renal failure. Nephrology following 5. Anemia DISCUSSION: Doing well on supplemental O2 Continue antibiotics, IV fluid hydration. Transfer to med-surg Rectal tube prn Daxa Infante Omar Syed MD Jan 16, 2020 09:48
--- NOTE | 2020-01-16 10:31 | Nephrology Progress Note ---
Assessment/Plan Problem List: (1) ARF (acute renal failure) (2) Hypernatremia (3) Hypovolemic shock (4) Altered level of consciousness (5) Hypercalcemia (6) Hyperuricemia Assessment Acute renal failure Possible underlying chronic kidney failure Severe dehydration Hypernatremia indicative of severe water deficit Severe hyperuricemia, partly due to dehydration and renal failure Acute metabolic and toxic encephalopathy Mild, malnutrition Anemia Lactic acid, possible sepsis Hypercalcemia Plan January 15: Still in ICU. Doing well post extubation. Renal parameters improving. Not requiring any more dialysis treatment after the first dialysis treatment. Medications reviewed. Continue per consultants. January 14: Remains in ICU. Tolerating extubation. Labs reviewed. Abnormal electrolytes addressed. Serum creatinine lowering. Continue per current management. Stop Phos binders. Increase calcium IV. January 13: In ICU. Now extubated. Only dialyzed once. Urine output maintained. Serum creatinine down to 2.5. Patient has NG tube. Continue to monitor renal parameters. Continue per consultants. Abnormal electrolytes addressed. January 12: Remains in ICU. Intubated. Transfused yesterday. Abnormal electrolytes addressed. Dialyzed once January 10. Serum creatinine stable. Will adjust IV fluid. Monitor renal parameters. Dialysis as needed. Calcium gluconate IV ordered. Ionized calcium level ordered with tomorrow's labs. January 11: Patient in ICU. Intubated. On Levophed. Hemoglobin low. Due for transfusion. Electrolyte abnormalities noted and addressed. Patient was dialyzed yesterday. Will check lab tomorrow. Dialysis as needed. Discussed with SELIN Srivastava. January 10: Patient is doing poorly. Blood pressure low. ABG abnormal with metabolic acidosis. IV sodium bicarb given. Serum creatinine reno. Patient has acute renal failure. Nontunneled dialysis catheter replacement ordered.. Patient need life saving dialysis treatment SRINIVAS. January 09: Labs reviewed. IV D5 and a half with sodium bicarb initiated. Serum creatinine higher. Continue to monitor renal parameters. NG feeding was changed to Nepro. Patient remains full code. Poor prognosis. January 08: Labs reviewed. IV D5W discontinued. 500 cc 3% saline ordered. NG tube for feeding and for medications. Allopurinol dose increased. Continue to monitor renal parameters serum calcium and phosphorus. January 07: Labs reviewed. Serum calcium remains elevated. Uric acid still elevated. Will give pamidronate 60 mg IV piggyback once for hypercalcemia. Continue to monitor renal parameters. Continue D5W 150 cc an hour. Start Bicitra 30 cc p.o. every 6 hours. Add allopurinol D5W IV hydration Albumin bolus N.p.o. until able to take p.o. Antibiotics Monitor renal parameters monitor calcium, monitor uric acid Subjective ROS Limited/Unobtainable: Yes Objective Objective Last 24 Hour Vital Signs Date Time Temp Pulse Resp B/P (MAP) Pulse Ox O2 Delivery O2 Flow Rate FiO2 01/16/20 08:00 98.1 95 22 143/65 (91) 97 01/16/20 07:00 97 20 137/84 (101) 97 01/16/20 06:00 95 22 118/68 (85) 97 01/16/20 05:00 98 20 126/61 (82) 97 01/16/20 04:00 1.0 01/16/20 04:00 Room Air 01/16/20 04:00 95 01/16/20 04:00 97.8 100 19 133/61 (85) 98 01/16/20 03:00 96 18 146/72 (96) 98 01/16/20 02:00 95 18 129/65 (86) 98 01/16/20 01:00 98 20 126/66 (86) 97 01/16/20 00:00 98.0 97 16 123/60 (81) 97 01/16/20 00:00 1.0 01/16/20 00:00 Room Air 01/15/20 23:00 94 18 127/65 (85) 97 01/15/20 22:00 97 16 133/61 (85) 97 01/15/20 21:00 96 17 127/68 (87) 98 01/15/20 20:00 97 01/15/20 20:00 Room Air 01/15/20 20:00 97.5 100 18 126/59 (81) 98 01/15/20 20:00 1.0 01/15/20 19:02 92 16 100 Nasal Cannula 2.0 28 01/15/20 19:02 100 Nasal Cannula 2.0 28 01/15/20 19:00 94 18 126/74 (91) 98 01/15/20 18:00 96 17 111/66 (81) 97 01/15/20 17:00 93 17 117/67 (84) 95 01/15/20 16:00 1.0 01/15/20 16:00 97.0 95 16 135/65 (88) 100 01/15/20 16:00 Room Air 01/15/20 15:39 108 01/15/20 15:00 101 21 139/84 (102) 99 01/15/20 14:00 97 17 130/64 (86) 99 01/15/20 13:00 85 15 122/63 (82) 99 01/15/20 12:00 Nasal Cannula 1.0 01/15/20 12:00 1.0 01/15/20 12:00 97.6 95 14 131/59 (83) 99 01/15/20 11:45 114/53 01/15/20 11:20 80 01/15/20 11:00 89 18 114/53 (73) 100 Intake and Output 01/15/20 01/16/20 19:00 07:00 Intake Total 1735 ml 1050 ml Output Total 765 ml 790 ml Balance 970 ml 260 ml Free Water 100 ml IV Total 1465 ml 650 ml Tube Feeding 270 ml 300 ml Output Urine Total 765 ml 740 ml Stool Total 50 ml # Bowel Movements 3 3 Laboratory Tests 01/15/20 17:30: POC Whole Blood Glucose [Pending] 01/16/20 03:00: White Blood Count 8.3, Red Blood Count 2.91L, Hemoglobin 8.2L, Hematocrit 26.2L, Mean Corpuscular Volume 90, Mean Corpuscular Hemoglobin 28.2, Mean Corpuscular Hemoglobin Concent 31.3L, Red Cell Distribution Width 21.4H, Platelet Count 50L, Mean Platelet Volume 9.6, Neutrophils (%) (Auto) , Lymphocytes (%) (Auto) , Monocytes (%) (Auto) , Eosinophils (%) (Auto) , Basophils (%) (Auto) , Differential Total Cells Counted 100, Neutrophils % (Manual) 75, Lymphocytes % (Manual) 21, Monocytes % (Manual) 4, Eosinophils % (Manual) 0, Basophils % (Manual) 0, Band Neutrophils 0, Platelet Estimate DecreasedL, Platelet Morphology Normal, Hypochromasia 2+, Poikilocytosis 1+, Anisocytosis 2+, Sodium Level 141, Potassium Level 3.5, Chloride Level 111H, Carbon Dioxide Level 18L, Anion Gap 12, Blood Urea Nitrogen 23H, Creatinine 1.8H, Estimat Glomerular Filtration Rate 45.3, Glucose Level 93, Uric Acid 5.5, Calcium Level 7.5L, Phosphorus Level 2.6, Magnesium Level 2.1, Total Bilirubin 0.4, Aspartate Amino Transf (AST/SGOT) 64H, Alanine Aminotransferase (ALT/SGPT) 19, Alkaline P hosphatase 131H, C-Reactive Protein, Quantitative 32.1H, Pro-B-Type Natriuretic Peptide 3525H, Total Protein 5.1L, Albumin 2.2L, Globulin 2.9, Albumin/Globulin Ratio 0.8L, Random Vancomycin Level 10.5 Height (Feet): 6 Height (Inches): 0.00 Weight (Pounds): 150 General Appearance: no apparent distress EENT: other - Has NG tube Cardiovascular: tachycardia Respiratory/Chest: decreased breath sounds Abdomen: distended Dhiraj Biswas MD Jan 16, 2020 10:31
--- NOTE | 2020-01-16 10:44 | General Progress Note ---
Subjective ROS Limited/Unobtainable: No Allergies: Coded Allergies: No Known Allergies (Unverified , 03/18/19) Objective Last 24 Hour Vital Signs Date Time Temp Pulse Resp B/P (MAP) Pulse Ox O2 Delivery O2 Flow Rate FiO2 01/16/20 10:00 99 19 128/71 (90) 96 01/16/20 09:00 97 24 134/64 (87) 97 01/16/20 08:00 98.1 95 22 143/65 (91) 97 01/16/20 08:00 Room Air 01/16/20 07:00 97 20 137/84 (101) 97 01/16/20 06:00 95 22 118/68 (85) 97 01/16/20 05:00 98 20 126/61 (82) 97 01/16/20 04:00 1.0 01/16/20 04:00 Room Air 01/16/20 04:00 95 01/16/20 04:00 97.8 100 19 133/61 (85) 98 01/16/20 03:00 96 18 146/72 (96) 98 01/16/20 02:00 95 18 129/65 (86) 98 01/16/20 01:00 98 20 126/66 (86) 97 01/16/20 00:00 98.0 97 16 123/60 (81) 97 01/16/20 00:00 1.0 01/16/20 00:00 Room Air 01/15/20 23:00 94 18 127/65 (85) 97 01/15/20 22:00 97 16 133/61 (85) 97 01/15/20 21:00 96 17 127/68 (87) 98 01/15/20 20:00 97 01/15/20 20:00 Room Air 01/15/20 20:00 97.5 100 18 126/59 (81) 98 01/15/20 20:00 1.0 01/15/20 19:02 92 16 100 Nasal Cannula 2.0 28 01/15/20 19:02 100 Nasal Cannula 2.0 28 01/15/20 19:00 94 18 126/74 (91) 98 01/15/20 18:00 96 17 111/66 (81) 97 01/15/20 17:00 93 17 117/67 (84) 95 01/15/20 16:00 1.0 01/15/20 16:00 97.0 95 16 135/65 (88) 100 01/15/20 16:00 Room Air 01/15/20 15:39 108 01/15/20 15:00 101 21 139/84 (102) 99 01/15/20 14:00 97 17 130/64 (86) 99 01/15/20 13:00 85 15 122/63 (82) 99 01/15/20 12:00 Nasal Cannula 1.0 01/15/20 12:00 1.0 01/15/20 12:00 97.6 95 14 131/59 (83) 99 01/15/20 11:45 114/53 01/15/20 11:20 80 01/15/20 11:00 89 18 114/53 (73) 100 Intake and Output 01/15/20 01/16/20 19:00 07:00 Intake Total 1735 ml 1050 ml Output Total 765 ml 790 ml Balance 970 ml 260 ml Free Water 100 ml IV Total 1465 ml 650 ml Tube Feeding 270 ml 300 ml Output Urine Total 765 ml 740 ml Stool Total 50 ml # Bowel Movements 3 3 Laboratory Tests 01/15/20 17:30: POC Whole Blood Glucose [Pending] 01/16/20 03:00: White Blood Count 8.3, Red Blood Count 2.91L, Hemoglobin 8.2L, Hematocrit 26.2L, Mean Corpuscular Volume 90, Mean Corpuscular Hemoglobin 28.2, Mean Corpuscular Hemoglobin Concent 31.3L, Red Cell Distribution Width 21.4H, Platelet Count 50L, Mean Platelet Volume 9.6, Neutrophils (%) (Auto) , Lymphocytes (%) (Auto) , Monocytes (%) (Auto) , Eosinophils (%) (Auto) , Basophils (%) (Auto) , Differential Total Cells Counted 100, Neutrophils % (Manual) 75, Lymphocytes % (Manual) 21, Monocytes % (Manual) 4, Eosinophils % (Manual) 0, Basophils % (Manual) 0, Band Neutrophils 0, Platelet Estimate DecreasedL, Platelet Morphology Normal, Hypochromasia 2+, Poikilocytosis 1+, Anisocytosis 2+, Sodium Level 141, Potassium Level 3.5, Chloride Level 111H, Carbon Dioxide Level 18L, Anion Gap 12, Blood Urea Nitrogen 23H, Creatinine 1.8H, Estimat Glomerular Filtration Rate 45.3, Glucose Level 93, Uric Acid 5.5, Calcium Level 7.5L, Phosphorus Level 2.6, Magnesium Level 2.1, Total Bilirubin 0.4, Aspartate Amino Transf (AST/SGOT) 64H, Alanine Aminotransferase (ALT/SGPT) 19, Alkaline Phosphatase 131H, C-Reactive Protein, Quantitative 32.1H, Pro-B-Type Natriuretic Peptide 3525H, Total Protein 5.1L, Albumin 2.2L, Globulin 2.9, Albumin/Globulin Ratio 0.8L, Random Vancomycin Level 10.5 Height (Feet): 6 Height (Inches): 0.00 Weight (Pounds): 150 General Appearance: lethargic EENT: normal ENT inspection Neck: supple Cardiovascular: normal rate Respiratory/Chest: decreased breath sounds Abdomen: normal bowel sounds, non tender, soft Extremities: non-tender Assessment/Plan Status: unchanged Assessment/Plan: AMS dementia Anemia DM hyper CA elevated AST low albumin COPD RI HTN extubated NGTF for now repeat swallow eval pending may need PEG add reglan Change GTF to Glucerna 1.5 GI procedures on hold fu nephrology and cardiology recs fu stool ob>>> neg bowel regimen cbc in am fu MRI Paulino Bueno MD Jan 16, 2020 10:44
[2020-01-16] MEDS: Norepinephrine 4mg/NS Premix 250 ML IV SCH (11:44)
[2020-01-16] MEDS: Metoclopramide 10mg/2ml Inj IVP SCH ×3 (11:44→23:26)
[2020-01-16] MEDS: Cefepime HCl 1 GM in D5W 55 ML IVPB SCH (11:44)
[2020-01-16] MEDS ORDERED: Metoclopramide 10mg/2ml Inj IVP PRN (13:00)
--- NOTE | 2020-01-16 13:03 | Cardiac Electrophysiology PN ---
Assessment/Plan Assessment/Plan 1. Altered mental status due to severe dehydration in view of sodium of 160 and acute renal failure. On IV fluids and IV antibiotics. Ruled out for LA. 2. Hypotension. Off BP meds (at the [facility], the patient was on amlodipine and metoprolol) On Midodrine 10 tid 3. History of CVA, Plavix DCed in view of hematuria. 4. Advanced dementia. NGT feeding 5. Diabetes. 6. Acute renal failure. The patient is being hydrated. Cr 4.2. Had HD once only on 01/11/20 7. Hematuria 8. Anemia with Hb 5.8 and coffee ground emesis. FU Dr Bueno 9. Shock liver with increase AST>2000 10. Pancreatic mass x3 . MRI abdomen pending DW RN Subjective Subjective In ICU in SR in restraints on Face Mask Has NGT in. Off Levo. Failed swallow eval. Objective Last 24 Hour Vital Signs Date Time Temp Pulse Resp B/P (MAP) Pulse Ox O2 Delivery O2 Flow Rate FiO2 01/16/20 12:00 91 01/16/20 12:00 97.5 88 30 126/64 (84) 97 01/16/20 11:00 100 18 130/70 (90) 98 01/16/20 10:00 99 19 128/71 (90) 96 01/16/20 09:00 97 24 134/64 (87) 97 01/16/20 08:00 94 01/16/20 08:00 98.1 95 22 143/65 (91) 97 01/16/20 08:00 Room Air 01/16/20 07:00 97 20 137/84 (101) 97 01/16/20 06:00 95 22 118/68 (85) 97 01/16/20 05:00 98 20 126/61 (82) 97 01/16/20 04:00 1.0 01/16/20 04:00 Room Air 01/16/20 04:00 95 01/16/20 04:00 97.8 100 19 133/61 (85) 98 01/16/20 03:00 96 18 146/72 (96) 98 01/16/20 02:00 95 18 129/65 (86) 98 01/16/20 01:00 98 20 126/66 (86) 97 01/16/20 00:00 98.0 97 16 123/60 (81) 97 01/16/20 00:00 1.0 01/16/20 00:00 Room Air 01/15/20 23:00 94 18 127/65 (85) 97 01/15/20 22:00 97 16 133/61 (85) 97 01/15/20 21:00 96 17 127/68 (87) 98 01/15/20 20:00 97 01/15/20 20:00 Room Air 01/15/20 20:00 97.5 100 18 126/59 (81) 98 01/15/20 20:00 1.0 01/15/20 19:02 92 16 100 Nasal Cannula 2.0 28 01/15/20 19:02 100 Nasal Cannula 2.0 28 01/15/20 19:00 94 18 126/74 (91) 98 01/15/20 18:00 96 17 111/66 (81) 97 01/15/20 17:00 93 17 117/67 (84) 95 01/15/20 16:00 1.0 01/15/20 16:00 97.0 95 16 135/65 (88) 100 01/15/20 16:00 Room Air 01/15/20 15:39 108 01/15/20 15:00 101 21 139/84 (102) 99 01/15/20 14:00 97 17 130/64 (86) 99 Intake and Output 01/15/20 01/16/20 19:00 07:00 Intake Total 1735 ml 1100 ml Output Total 765 ml 790 ml Balance 970 ml 310 ml Free Water 100 ml IV Total 1465 ml 700 ml Tube Feeding 270 ml 300 ml Output Urine Total 765 ml 740 ml Stool Total 50 ml # Bowel Movements 3 3 Laboratory Tests Test 01/15/20 17:30 01/16/20 03:00 POC Whole Blood Glucose Pending White Blood Count 8.3 K/UL (4.8-10.8) Red Blood Count 2.91 M/UL (4.70-6.10) L Hemoglobin 8.2 G/DL (14.2-18.0) L Hematocrit 26.2 % (42.0-52.0) L Mean Corpuscular Volume 90 FL (80-99) Mean Corpuscular Hemoglobin 28.2 PG (27.0-31.0) Mean Corpuscular Hemoglobin Concent 31.3 G/DL (32.0-36.0) L Red Cell Distribution Width 21.4 % (11.6-14.8) H Platelet Count 50 K/UL (150-450) L Mean Platelet Volume 9.6 FL (6.5-10.1) Neutrophils (%) (Auto) % (45.0-75.0) Lymphocytes (%) (Auto) % (20.0-45.0) Monocytes (%) (Auto) % (1.0-10.0) Eosinophils (%) (Auto) % (0.0-3.0) Basophils (%) (Auto) % (0.0-2.0) Differential Total Cells Counted 100 Neutrophils % (Manual) 75 % (45-75) Lymphocytes % (Manual) 21 % (20-45) Monocytes % (Manual) 4 % (1-10) Eosinophils % (Manual) 0 % (0-3) Basophils % (Manual) 0 % (0-2) Band Neutrophils 0 % (0-8) Platelet Estimate Decreased L Platelet Morphology Normal Hypochromasia 2+ Poikilocytosis 1+ Anisocytosis 2+ Sodium Level 141 MMOL/L (136-145) Potassium Level 3.5 MMOL/L (3.5-5.1) Chloride Level 111 MMOL/L (98-107) H Carbon Dioxide Level 18 MMOL/L (21-32) L Anion Gap 12 mmol/L (5-15) Blood Urea Nitrogen 23 mg/dL (7-18) H Creatinine 1.8 MG/DL (0.55-1.30) H Estimat Glomerular Filtration Rate 45.3 mL/min (>60) Glucose Level 93 MG/DL (74-106) Uric Acid 5.5 MG/DL (2.6-7.2) Calcium Level 7.5 MG/DL (8.5-10.1) L Phosphorus Level 2.6 MG/DL (2.5-4.9) Magnesium Level 2.1 MG/DL (1.8-2.4) Total Bilirubin 0.4 MG/DL (0.2-1.0) Aspartate Amino Transf (AST/SGOT) 64 U/L (15-37) H Alanine Aminotransferase (ALT/SGPT) 19 U/L (12-78) Alkaline Phosphatase 131 U/L (46-116) H C-Reactive Protein, Quantitative 32.1 mg/dL (0.00-0.90) H Pro-B-Type Natriuretic Peptide 3525 pg/mL (0-125) H Total Protein 5.1 G/DL (6.4-8.2) L Albumin 2.2 G/DL (3.4-5.0) L Globulin 2.9 g/dL Albumin/Globulin Ratio 0.8 (1.0-2.7) L Random Vancomycin Level 10.5 ug/mL Objective HEAD AND NECK: No JVD.NGT in place LUNGS: Coarse rhonchi. CARDIOVASCULAR: Regular S1 and S2 with no gallop. ABDOMEN: Soft. EXTREMITIES: No pitting edema. Kevin Lopez MD Jan 16, 2020 13:02
[2020-01-16] MEDS ORDERED: NS 275ml ONE ×2 (14:35)
[2020-01-16] MEDS ORDERED: D5 1/2NS 1000ml IV ONE ×3 (14:35→22:29)
[2020-01-16] MEDS ORDERED: Sterile Water Irrig 1000ml IRRIG ONE ×2 (14:35→22:29)
[2020-01-16] MEDS ORDERED: Tubing IV Secondary IV ONE ×2 (14:35)
[2020-01-16] MEDS: D5 1/2NS 1,000 ML IV SCH (14:47)
--- NOTE | 2020-01-16 16:12 | Surgery Progress Note ---
Surgery Progress Note Subjective Procedure Performed Right femoral temporary hemodialysis catheter insertion Symptoms: improved Additional Comments looks much better today plan for downgrade from icu no n/v comfortable Objective Last 24 Hour Vital Signs Date Time Temp Pulse Resp B/P (MAP) Pulse Ox O2 Delivery O2 Flow Rate FiO2 01/16/20 14:00 93 18 132/67 (88) 97 01/16/20 13:00 91 18 143/64 (90) 98 01/16/20 12:00 91 01/16/20 12:00 97.5 88 30 126/64 (84) 97 01/16/20 12:00 Room Air 01/16/20 11:00 100 18 130/70 (90) 98 01/16/20 10:00 99 19 128/71 (90) 96 01/16/20 09:00 97 24 134/64 (87) 97 01/16/20 08:00 94 01/16/20 08:00 98.1 95 22 143/65 (91) 97 01/16/20 08:00 Room Air 01/16/20 07:00 97 20 137/84 (101) 97 01/16/20 06:00 95 22 118/68 (85) 97 01/16/20 05:00 98 20 126/61 (82) 97 01/16/20 04:00 1.0 01/16/20 04:00 Room Air 01/16/20 04:00 95 01/16/20 04:00 97.8 100 19 133/61 (85) 98 01/16/20 03:00 96 18 146/72 (96) 98 01/16/20 02:00 95 18 129/65 (86) 98 01/16/20 01:00 98 20 126/66 (86) 97 01/16/20 00:00 98.0 97 16 123/60 (81) 97 01/16/20 00:00 1.0 01/16/20 00:00 Room Air 01/15/20 23:00 94 18 127/65 (85) 97 01/15/20 22:00 97 16 133/61 (85) 97 01/15/20 21:00 96 17 127/68 (87) 98 01/15/20 20:00 97 01/15/20 20:00 Room Air 01/15/20 20:00 97.5 100 18 126/59 (81) 98 01/15/20 20:00 1.0 01/15/20 19:02 92 16 100 Nasal Cannula 2.0 28 01/15/20 19:02 100 Nasal Cannula 2.0 28 01/15/20 19:00 94 18 126/74 (91) 98 01/15/20 18:00 96 17 111/66 (81) 97 01/15/20 17:00 93 17 117/67 (84) 95 I&O Intake and Output 01/15/20 01/16/20 19:00 07:00 Intake Total 1735 ml 1100 ml Output Total 765 ml 790 ml Balance 970 ml 310 ml Free Water 100 ml IV Total 1465 ml 700 ml Tube Feeding 270 ml 300 ml Output Urine Total 765 ml 740 ml Stool Total 50 ml # Bowel Movements 3 3 Dressing: saturated Cardiovascular: RSR Respiratory: decreased breath sounds Abdomen: non-tender, present bowel sounds Extremities: no edema, no tenderness, no cyanosis Laboratory Tests Test 01/15/20 17:30 01/16/20 03:00 POC Whole Blood Glucose Pending White Blood Count 8.3 K/UL (4.8-10.8) Red Blood Count 2.91 M/UL (4.70-6.10) L Hemoglobin 8.2 G/DL (14.2-18.0) L Hematocrit 26.2 % (42.0-52.0) L Mean Corpuscular Volume 90 FL (80-99) Mean Corpuscular Hemoglobin 28.2 PG (27.0-31.0) Mean Corpuscular Hemoglobin Concent 31.3 G/DL (32.0-36.0) L Red Cell Distribution Width 21.4 % (11.6-14.8) H Platelet Count 50 K/UL (150-450) L Mean Platelet Volume 9.6 FL (6.5-10.1) Neutrophils (%) (Auto) % (45.0-75.0) Lymphocytes (%) (Auto) % (20.0-45.0) Monocytes (%) (Auto) % (1.0-10.0) Eosinophils (%) (Auto) % (0.0-3.0) Basophils (%) (Auto) % (0.0-2.0) Differential Total Cells Counted 100 Neutrophils % (Manual) 75 % (45-75) Lymphocytes % (Manual) 21 % (20-45) Monocytes % (Manual) 4 % (1-10) Eosinophils % (Manual) 0 % (0-3) Basophils % (Manual) 0 % (0-2) Band Neutrophils 0 % (0-8) Platelet Estimate Decreased L Platelet Morphology Normal Hypochromasia 2+ Poikilocytosis 1+ Anisocytosis 2+ Sodium Level 141 MMOL/L (136-145) Potassium Level 3.5 MMOL/L (3.5-5.1) Chloride Level 111 MMOL/L (98-107) H Carbon Dioxide Level 18 MMOL/L (21-32) L Anion Gap 12 mmol/L (5-15) Blood Urea Nitrogen 23 mg/dL (7-18) H Creatinine 1.8 MG/DL (0.55-1.30) H Estimat Glomerular Filtration Rate 45.3 mL/min (>60) Glucose Level 93 MG/DL (74-106) Uric Acid 5.5 MG/DL (2.6-7.2) Calcium Level 7.5 MG/DL (8.5-10.1) L Phosphorus Level 2.6 MG/DL (2.5-4.9) Magnesium Level 2.1 MG/DL (1.8-2.4) Total Bilirubin 0.4 MG/DL (0.2-1.0) Aspartate Amino Transf (AST/SGOT) 64 U/L (15-37) H Alanine Aminotransferase (ALT/SGPT) 19 U/L (12-78) Alkaline Phosphatase 131 U/L (46-116) H C-Reactive Protein, Quantitative 32.1 mg/dL (0.00-0.90) H Pro-B-Type Natriuretic Peptide 3525 pg/mL (0-125) H Total Protein 5.1 G/DL (6.4-8.2) L Albumin 2.2 G/DL (3.4-5.0) L Globulin 2.9 g/dL Albumin/Globulin Ratio 0.8 (1.0-2.7) L Random Vancomycin Level 10.5 ug/mL Plan Problems: (1) Altered level of consciousness (2) Hypovolemic shock Assessment & Plan: resuscitation extubated monitor respiratory keep hob elevated supplemental O2 Gallbladder demonstrates sludge. No stones, wall thickening, nor pericholecystic fluid. Patient unable to report Wilson's sign Common bile duct measures 3 mm in diameter. No intrahepatic biliary ductal dilatation. Liver demonstrates coarsened echogenicity and surface nodularity. It demonstrates multiple cysts. Portal vein and hepatic veins are patent. The pancreas demonstrates 3 hypoechoic lesions in the head and body, measuring approximately 5 mm in diameter each. Spleen is unremarkable, poorly visualized. Left kidney measures 11.4 cm in length. Right kidney measures 11.3 cm length. Both kidneys demonstrate normal echogenicity. There is severe right and moderate left hydronephrosis. Echogenic foci are seen in the left renal sinus and collecting system. Bladder is empty, contains a Mathew catheter. Non-aneurysmal abdominal aorta . There are bilateral pleural effusions Impression: Bilateral right greater than left hydronephrosis, increased since prior study of 03/20/2019. Etiology not demonstrated Empty bladder with a Mathew catheter 3 hypoechoic lesions within the pancreatic head and body, each measuring about 5 mm. Appearance nonspecific. Recommend further evaluation with pancreas protocol MRI Bilateral pleural effusions Echogenic liver, consistent with hepatocellular disease. Surface likely nodularity raises concern for cirrhosis Gallbladder sludge. Negative for dilated bile ducts Probable nonobstructive left intrarenal calculi Multiple hepatic cysts (3) Lactic acid acidosis (4) Hypernatremia (5) Paraplegia (6) Anemia Assessment & Plan: no active bleeding noted no large hematoma dressings okay likely related to heme will monitor transfuse prbc with HD trend labs thank you (7) Diabetes (8) Weak (9) HTN (hypertension) (10) ARF (acute renal failure) (11) Hypercalcemia (12) Hyperuricemia (13) Dehydration (14) UTI (urinary tract infection) (15) Failure to thrive in adult Assessment & Plan: patient identified to have DTI on bilateral heels right with 5cm x 4cm area of dti not open no drainage no signs of infection left with 3cm x 2cm. pillow under leg optifoam dressings nutritional optimization will follow no acute surgery DAILY ESTIMATED NEEDS: Needs based on underweight, suspected wt loss, HD, CRITICAL CARE/ 57.6kg 25-33 kcals/kg 8253-8013 total kcals 1.2-2 g protein/kg 69-115 g total protein 25-30 mL/kg 4076-1084 total fluid mLs NUTRITION DIAGNOSIS: *Increased kcal and pro needs r/t underweight status, suspected significant wt loss as evidenced by pt @ 71% IBW w/ BMI 17.2, underweight per guidelines, w/ suspected signficant wt loss of 30lbs/19% in 10 months. * Swallowing difficulty R/T dysphagia, respiratory status as evidenced by s/p NGT insertion (01/08), now NPO, s/p code blue (01/10), orally intubated. CURRENT TF:NPO ENTERAL NUTRITION RECOMMENDATIONS: WHEN HEMODYNAMICALLY STABLE: Nepro @ 40ml/hr x 24 hrs to provide 960ml, 1728kcal, 77g prot, 698ml free water WHEN HEMODYNAMICALLY STABLE AND MEDICALLY APPROPRIATE TO FEED: -> initiate TF @ 5ml/hr x 6hrs, advance slowly 5ml q 4-6 hrs as tolerated to goal rate -> HOB over 30 degrees/ water flush per MD WITHOUT HEMODYNAMIC STABILITY -> If medically appropriate to feed, rec trophic feeding of Nepro @ 5ml/hr x 24 hrs to maintain gut integrity Lázaro Jenkins Jan 16, 2020 16:12
[2020-01-16] MEDS: Sennosides 8.6mg tab NG SCH (22:32)
[2020-01-16] MEDS: Miralax 17gm pkt NG SCH (22:32)
[2020-01-16] MEDS: Dyna-Hex 2% Top Sol 2oz TOPIC SCH (22:32)
--- NOTE | 2020-01-16 23:02 | Psychiatric Progress Note ---
Psychiatry Progress Note Psychiatry Progress Note Medications Current Medications Medications (Trade) Dose Ordered Sig/Jesse Route PRN Reason Start Time Stop Time Status Last Admin Dose Admin Acetaminophen (Tylenol) 650 mg Q4H PRN ORAL PRNH/TEMP 01/05/20 20:15 02/04/20 20:14 01/12/20 03:10 Albuterol/ Ipratropium (Albuterol/ Ipratropium) 3 ml Q4H PRN HHN Bronchospasm 01/15/20 15:36 01/20/20 15:35 Allopurinol (allopurinoL) 300 mg DAILY NG 01/16/20 09:00 02/06/20 14:14 01/16/20 08:58 Barium Sulfate (Varibar Honey) 250 ml NOW PRN MC RAD 01/14/20 11:45 01/17/20 11:31 Barium Sulfate (Varibar Blandon) 240 ml NOW PRN MC RAD 01/14/20 11:45 01/17/20 11:31 Barium Sulfate (Varibar Pudding) 230 ml NOW PRN MC RAD 01/14/20 11:45 01/17/20 11:31 Barium Sulfate (Varibar Thin Liquid powder) 148 gm NOW PRN MC RAD 01/14/20 11:45 01/17/20 11:31 Bisacodyl (Dulcolax) 10 mg DAILY PRN RECTAL Constipation 01/05/20 20:15 04/04/20 20:14 Calcium Gluconate/ Sodium Chloride 50 ml @ 50 mls/hr Q8HR IVPB 01/15/20 14:00 04/12/20 20:59 01/16/20 22:36 Cefepime HCl 1 gm/ Dextrose 55 ml @ 110 mls/hr Q24H IVPB 01/14/20 11:00 01/21/20 10:59 01/16/20 11:44 Chlorhexidine Gluconate (Navya-Hex 2%) 1 applic DAILY@2000 TOPIC 01/11/20 20:00 04/10/20 19:59 01/16/20 22:32 Dextrose (Dextrose 50%) 25 ml Q30M PRN IV Hypoglycemia 01/05/20 20:15 04/04/20 20:14 Dextrose (Dextrose 50%) 50 ml Q30M PRN IV Hypoglycemia 01/05/20 20:15 04/04/20 20:14 Dextrose/Sodium Chloride 1,000 ml @ 50 mls/hr Q20H IV 01/12/20 12:00 02/11/20 11:59 01/16/20 14:47 Docusate Sodium (Colace) 200 mg DAILY ORAL 01/06/20 09:00 02/05/20 08:59 01/14/20 08:34 Gadobutrol (Gadavist) 7.5 mmol NOW PRN IV Radiology Procedure 01/15/20 13:45 01/19/20 13:44 Linaclotide (Linzess) 290 mcg BEFORE BREAKFAST ORAL 01/10/20 06:30 04/09/20 06:29 01/16/20 05:52 Metoclopramide HCl (Reglan) 10 mg Q6H IVP 01/16/20 10:45 02/15/20 10:44 01/16/20 16:35 Metoclopramide HCl (Reglan) 10 mg Q6H PRN IVP Nausea & Vomiting 01/16/20 13:00 02/15/20 12:59 Midodrine (Pro-Amatine) 10 mg Q8HR ORAL 01/15/20 14:00 04/13/20 17:59 01/16/20 22:32 Ondansetron HCl (Zofran) 4 mg Q6H PRN IVP Nausea & Vomiting 01/10/20 06:30 02/09/20 06:29 Oxymetazoline HCl (Afrin Nasal [place]) 2 spray Q12HR PRN NASAL dry nasal passage 01/11/20 08:00 04/10/20 07:59 Pantoprazole (Protonix) 40 mg EVERY 12 HOURS IVP 01/05/20 21:00 02/04/20 20:59 01/16/20 22:32 Polyethylene Glycol (Miralax) 17 gm BEDTIME NG 01/11/20 21:00 02/08/20 20:59 01/16/20 22:32 Sennosides (Senokot) 8.6 mg QHS NG 01/11/20 21:00 02/04/20 20:59 01/16/20 22:32 Vancomycin HCl (Vanco pharmacy to dose) 1 ea DAILY PRN MISC Per rx protocol 01/12/20 14:45 02/11/20 14:44 Neurological/Psychiatric: Denies: no symptoms, anxiety, depressed, emotional problems, headache, numbness, paresthesia, pre-existing deficit, seizure, tingling, tremors, weakness, other Allergies: Coded Allergies: No Known Allergies (Unverified , 03/18/19) Objective Data Height (Feet): 6 Height (Inches): 0.00 Weight (Pounds): 150 General Appearance: lethargic Additional Comments: awake, disoriented. Mood is anxious with agitation. Affect is blunted, congruent with mood. Thought process, there is a paucity of thought content. Thought content, no suicidal or homicidal ideation. Cognition is impaired. Insight and judgment is impaired. Assessment/Plan Kershaw I: ASSESSMENT: Kershaw I Dementia. Dementia with behavior disturbance. Kershaw II Deferred. Kershaw III Failure to thrive. Kershaw IV Low. Kershaw V 20. PLAN: 1. Remeron 15 mg at bedtime to stimulate his appetite. 2. Discussed with the nurse. Status: unchanged Status Narrative ASSESSMENT: Kershaw I Dementia. Dementia with behavior disturbance. Kershaw II Deferred. Kershaw III Failure to thrive. Kershaw IV Low. Kershaw V 20. PLAN: 1. Remeron 15 mg at bedtime to stimulate his appetite. 2. Discussed with the nurse. Assessment/Plan: ASSESSMENT: Kershaw I Dementia. Dementia with behavior disturbance. Kershaw II Deferred. Kershaw III Failure to thrive. Kershaw IV Low. Kershaw V 20. PLAN: 1. Remeron 15 mg at bedtime to stimulate his appetite. 2. Discussed with the nurse. Toney Bernstein MD Jan 16, 2020 23:02
[2020-01-17] VITALS: BP 135/77
[2020-01-17 04:00] VITALS: BP 141/75
[2020-01-17] MEDS: Metoclopramide 10mg/2ml Inj IVP SCH ×4 (05:17→22:09)
[2020-01-17] MEDS: Midodrine 10mg tab ORAL SCH ×3 (05:47→21:01)
[2020-01-17] MEDS: Calcium Gluconate 1gm/50ml 50 ML IVPB SCH ×3 (05:48→21:01)
--- NOTE | 2020-01-17 06:23 | Hematology/Onc Progress Note ---
Assessment/Plan Assessment/Plan Assessment/Recs # Anemia of chronic disease due to underlying chronic medical issues, multifactorial v Gi bleed --> Anemia workup has been ordered, rule out gi bleed --> No evidence of hemolysis is noted, peripheral smear has been reviewed. --> Hgb goal >7. Transfuse prn. --> Epogen or iron at this time is not particularly indicated --> Medications have been reviewed --> low threshold for gi evaluation in case has occult + --> hgb 10-->9.7-->9.2->10-->8.6-->7.7-->5-->8.3->9.3->7.8-->8.2 --> 01/12 flow cytometry ordered bc of nucleated cells on smear # Thrombocytopenia ongoing, worsened since adm --> plt 150-->98-->82-->51->49-->46-->50 --> hep and hiv panel--NEG --> us abd-->shows 3 small lesions, requires further eval # Multiple lesions noted in pancreas --> MRI abd ordered --> no family available, this is medically necessary/urgent as has contrast # Protein caloric malnutrition --> daily calorie counts --> daily weights --> mirtazapine started # Acute renal failure --> continue on ivfs --> as per renal # Hypokalemia --> replete with K # Severe dehydration --> ivfs ongoing # Hypernatremia indicative of severe water deficit # Severe hyperuricemia, partly due to dehydration and renal failure # Acute metabolic and toxic encephalopathy # Mild, malnutrition # Psych issues per psych # Lactic acid, possible sepsis # Dvt ppx heparin sq->Scds The timing of this note does not necessarily reflect the time of the patient was seen. Greatly appreciate consultation. Subjective Constitutional: Denies: no symptoms, chills, fever, malaise, weakness, other HEENT: Denies: no symptoms, eye pain, blurred vision, tearing, double vision, ear pain, ear discharge, nose pain, nose congestion, throat pain, throat swelling, mouth pain, mouth swelling, other Cardiovascular: Denies: no symptoms, chest pain, edema, irregular heart rate, lightheadedness, palpitations, syncope, other Respiratory: Denies: no symptoms, cough, shortness of breath, SOB with excertio n, SOB at rest, sputum, wheezing, other Gastrointestinal/Abdominal: Denies: no symptoms, abdomen distended, abdominal pain, black stools, tarry stools, blood in stool, constipated, diarrhea, difficulty swallowing, nausea, poor appetite, poor fluid intake, rectal bleeding, vomiting, other Hematologic/Lymphatic: Denies: no symptoms, anemia, easy bleeding, easy bruising, adenopathy, other Allergies: Coded Allergies: No Known Allergies (Unverified , 03/18/19) Subjective 01/07 meds noted, no bleeding, hgb 10, no hemolysis, hgb 10.1 01/08 labs reviewed, dw rn, no major events, no bleeding, hgb lower 01/09 labs noted, no bleeding, dw rn, no major changes, plt lower 01/10 did have epistaxis overnight, no bleeding, night sweats, epistaxis better 01/12 icu, remains on vent, levo, no bleeding, meds noted 01/13 remains in icu, no bleeding, on levo, no major changes 01/14 icu, is on 1l, restarints are off, no bleeding, no night sweats 01/15 icu, meds noted, with diarrhea, rectal tube reinserted, on nc 01/16 out of icu, no bleeding, meds reviewed, cbc ad bmp pending Objective Objective Current Medications Medications (Trade) Dose Ordered Sig/Jesse Route PRN Reason Start Time Stop Time Status Last Admin Dose Admin Acetaminophen (Tylenol) 650 mg Q4H PRN ORAL PRNH/TEMP 01/05/20 20:15 02/04/20 20:14 01/12/20 03:10 Albuterol/ Ipratropium (Albuterol/ Ipratropium) 3 ml Q4H PRN HHN Bronchospasm 01/15/20 15:36 01/20/20 15:35 Allopurinol (allopurinoL) 300 mg DAILY NG 01/16/20 09:00 02/06/20 14:14 01/16/20 08:58 Barium Sulfate (Varibar Honey) 250 ml NOW PRN MC RAD 01/14/20 11:45 01/17/20 11:31 Barium Sulfate (Varibar [place]) 240 ml NOW PRN MC RAD 01/14/20 11:45 01/17/20 11:31 Barium Sulfate (Varibar Pudding) 230 ml NOW PRN RAD 01/14/20 11:45 01/17/20 11:31 Barium Sulfate (Varibar Thin Liquid powder) 148 gm NOW PRN RAD 01/14/20 11:45 01/17/20 11:31 Bisacodyl (Dulcolax) 10 mg DAILY PRN RECTAL Constipation 01/05/20 20:15 04/04/20 20:14 Calcium Gluconate/ Sodium Chloride 50 ml @ 50 mls/hr Q8HR IVPB 01/15/20 14:00 04/12/20 20:59 01/17/20 05:48 Cefepime HCl 1 gm/ Dextrose 55 ml @ 110 mls/hr Q24H IVPB 01/14/20 11:00 01/21/20 10:59 01/16/20 11:44 Chlorhexidine Gluconate (Navya-Hex 2%) 1 applic DAILY@2000 TOPIC 01/11/20 20:00 04/10/20 19:59 01/16/20 22:32 Dextrose (Dextrose 50%) 25 ml Q30M PRN IV Hypoglycemia 01/05/20 20:15 04/04/20 20:14 Dextrose (Dextrose 50%) 50 ml Q30M PRN IV Hypoglycemia 01/05/20 20:15 04/04/20 20:14 Dextrose/Sodium Chloride 1,000 ml @ 50 mls/hr Q20H IV 01/12/20 12:00 02/11/20 11:59 01/16/20 14:47 Docusate Sodium (Colace) 200 mg DAILY ORAL 01/06/20 09:00 02/05/20 08:59 01/14/20 08:34 Gadobutrol (Gadavist) 7.5 mmol NOW PRN IV Radiology Procedure 01/15/20 13:45 01/19/20 13:44 Linaclotide (Linzess) 290 mcg BEFORE BREAKFAST ORAL 01/10/20 06:30 04/09/20 06:29 01/17/20 05:47 Metoclopramide HCl (Reglan) 10 mg Q6H IVP 01/16/20 10:45 02/15/20 10:44 01/17/20 05:17 Metoclopramide HCl (Reglan) 10 mg Q6H PRN IVP Nausea & Vomiting 01/16/20 13:00 02/15/20 12:59 Midodrine (Pro-Amatine) 10 mg Q8HR ORAL 01/15/20 14:00 04/13/20 17:59 01/17/20 05:47 Ondansetron HCl (Zofran) 4 mg Q6H PRN IVP Nausea & Vomiting 01/10/20 06:30 02/09/20 06:29 Oxymetazoline HCl (Afrin Nasal [place]) 2 spray Q12HR PRN NASAL dry nasal passage 01/11/20 08:00 04/10/20 07:59 Pantoprazole (Protonix) 40 mg EVERY 12 HOURS IVP 01/05/20 21:00 02/04/20 20:59 01/16/20 22:32 Polyethylene Glycol (Miralax) 17 gm BEDTIME NG 01/11/20 21:00 02/08/20 20:59 01/16/20 22:32 Sennosides (Senokot) 8.6 mg QHS NG 01/11/20 21:00 02/04/20 20:59 01/16/20 22:32 Vancomycin HCl (Vanco pharmacy to dose) 1 ea DAILY PRN MISC Per rx protocol 01/12/20 14:45 02/11/20 14:44 Last 24 Hour Vital Signs Date Time Temp Pulse Resp B/P (MAP) Pulse Ox O2 Delivery O2 Flow Rate FiO2 01/17/20 04:00 105 01/17/20 00:00 97.5 100 22 135/77 (96) 95 01/16/20 21:00 Room Air 01/16/20 20:14 94 16 98 Nasal Cannula 2.0 28 01/16/20 20:14 98 Nasal Cannula 2.0 28 01/16/20 20:00 84 01/16/20 20:00 97.5 98 24 124/72 (89) 97 01/16/20 19:26 97.9 94 21 130/75 (93) 97 01/16/20 18:00 97.7 97 20 130/75 (93) 97 01/16/20 17:00 95 21 139/67 (91) 99 01/16/20 16:00 97 01/16/20 16:00 98.0 96 19 132/86 (101) 01/16/20 16:00 Room Air 01/16/20 15:00 97 20 109/91 (97) 99 01/16/20 14:00 93 18 132/67 (88) 97 01/16/20 13:00 91 18 143/64 (90) 98 01/16/20 12:00 91 01/16/20 12:00 97.5 88 30 126/64 (84) 97 01/16/20 12:00 Room Air 01/16/20 11:00 100 18 130/70 (90) 98 01/16/20 10:00 99 19 128/71 (90) 96 01/16/20 09:00 97 24 134/64 (87) 97 01/16/20 08:00 94 01/16/20 08:00 98.1 95 22 143/65 (91) 97 01/16/20 08:00 Room Air 01/16/20 07:00 97 20 137/84 (101) 97 01/16/20 06:00 95 22 118/68 (85) 97 01/16/20 05:00 98 20 126/61 (82) 97 01/16/20 04:00 1.0 01/16/20 04:00 Room Air 01/16/20 04:00 95 01/16/20 04:00 97.8 100 19 133/61 (85) 98 01/16/20 03:00 96 18 146/72 (96) 98 01/16/20 02:00 95 18 129/65 (86) 98 01/16/20 01:00 98 20 126/66 (86) 97 01/16/20 00:00 98.0 97 16 123/60 (81) 97 01/16/20 00:00 1.0 01/16/20 00:00 Room Air 01/15/20 23:00 94 18 127/65 (85) 97 01/15/20 22:00 97 16 133/61 (85) 97 01/15/20 21:00 96 17 127/68 (87) 98 01/15/20 20:00 97 01/15/20 20:00 Room Air 01/15/20 20:00 97.5 100 18 126/59 (81) 98 01/15/20 20:00 1.0 01/15/20 19:02 92 16 100 Nasal Cannula 2.0 28 01/15/20 19:02 100 Nasal Cannula 2.0 28 01/15/20 19:00 94 18 126/74 (91) 98 01/15/20 18:00 96 17 111/66 (81) 97 01/15/20 17:00 93 17 117/67 (84) 95 01/15/20 16:00 1.0 01/15/20 16:00 97.0 95 16 135/65 (88) 100 01/15/20 16:00 Room Air 01/15/20 15:39 108 01/15/20 15:00 101 21 139/84 (102) 99 01/15/20 14:00 97 17 130/64 (86) 99 01/15/20 13:00 85 15 122/63 (82) 99 01/15/20 12:00 Nasal Cannula 1.0 01/15/20 12:00 1.0 01/15/20 12:00 97.6 95 14 131/59 (83) 99 01/15/20 11:45 114/53 01/15/20 11:20 80 01/15/20 11:00 89 18 114/53 (73) 100 01/15/20 10:00 97 17 124/62 (82) 100 01/15/20 09:00 90 18 109/57 (74) 100 01/15/20 08:01 90 01/15/20 08:00 Nasal Cannula 1.0 01/15/20 08:00 1.0 01/15/20 08:00 97.9 93 15 122/53 (76) 100 01/15/20 07:40 96 16 100 Nasal Cannula 2.0 28 01/15/20 07:40 100 Nasal Cannula 2.0 28 01/15/20 07:07 80 14 95/58 (70) 100 01/15/20 07:00 76 12 73/44 (54) 100 Intake and Output 01/16/20 01/17/20 19:00 07:00 Intake Total 500 ml 120 ml Output Total 1230 ml Balance -730 ml 120 ml Free Water 60 ml IV Total 360 ml Tube Feeding 80 ml 120 ml Output Urine Total 1230 ml # Bowel Movements 3 Labs Test 01/14/20 09:55 01/14/20 12:14 01/14/20 16:44 01/15/20 05:40 Ionized Calcium (Measured) 0.88 mmol/L (1.10-1.35) POC Whole Blood Glucose 75 MG/DL (74-106) 85 MG/DL (74-106) White Blood Count 7.5 K/UL (4.8-10.8) Red Blood Count 2.76 M/UL (4.70-6.10) Hemoglobin 7.8 G/DL (14.2-18.0) Hematocrit 24.3 % (42.0-52.0) Mean Corpuscular Volume 88 FL (80-99) Mean Corpuscular Hemoglobin 28.4 PG (27.0-31.0) Mean Corpuscular Hemoglobin Concent 32.2 G/DL (32.0-36.0) Red Cell Distribution Width 20.4 % (11.6-14.8) Platelet Count 46 K/UL (150-450) Mean Platelet Volume 10.5 FL (6.5-10.1) Neutrophils (%) (Auto) % (45.0-75.0) Lymphocytes (%) (Auto) % (20.0-45.0) Monocytes (%) (Auto) % (1.0-10.0) Eosinophils (%) (Auto) % (0.0-3.0) Basophils (%) (Auto) % (0.0-2.0) Differential Total Cells Counted 100 Neutrophils % (Manual) 79 % (45-75) Lymphocytes % (Manual) 13 % (20-45) Monocytes % (Manual) 1 % (1-10) Eosinophils % (Manual) 0 % (0-3) Basophils % (Manual) 0 % (0-2) Myelocytes % 1 % (0-0) Band Neutrophils 6 % (0-8) Nucleated Red Blood Cells 1 /100 WBC Platelet Estimate Decreased Platelet Morphology Normal Polychromasia 1+ Anisocytosis 2+ Sodium Level 141 MMOL/L (136-145) Potassium Level 2.7 MMOL/L (3.5-5.1) Chloride Level 109 MMOL/L (98-107) Carbon Dioxide Level 20 MMOL/L (21-32) Anion Gap 11 mmol/L (5-15) Blood Urea Nitrogen 25 mg/dL (7-18) Creatinine 1.9 MG/DL (0.55-1.30) Estimat Glomerular Filtration Rate 42.5 mL/min (>60) Glucose Level 89 MG/DL (74-106) Uric Acid 6.4 MG/DL (2.6-7.2) Calcium Level 6.5 MG/DL (8.5-10.1) Phosphorus Level 2.4 MG/DL (2.5-4.9) Magnesium Level 1.6 MG/DL (1.8-2.4) Total Bilirubin 0.4 MG/DL (0.2-1.0) Direct Bilirubin 0.2 MG/DL (0.0-0.3) Aspartate Amino Transf (AST/SGOT) 81 U/L (15-37) Alanine Aminotransferase (ALT/SGPT) 21 U/L (12-78) Alkaline Phosphatase 99 U/L (46-116) Total Protein 4.6 G/DL (6.4-8.2) Albumin 1.7 G/DL (3.4-5.0) Test 01/15/20 07:16 01/15/20 17:30 01/16/20 03:00 01/16/20 23:47 POC Whole Blood Glucose 79 MG/DL (74-106) 65 MG/DL (74-106) White Blood Count 8.3 K/UL (4.8-10.8) Red Blood Count 2.91 M/UL (4.70-6.10) Hemoglobin 8.2 G/DL (14.2-18.0) Hematocrit 26.2 % (42.0-52.0) Mean Corpuscular Volume 90 FL (80-99) Mean Corpuscular Hemoglobin 28.2 PG (27.0-31.0) Mean Corpuscular Hemoglobin Concent 31.3 G/DL (32.0-36.0) Red Cell Distribution Width 21.4 % (11.6-14.8) Platelet Count 50 K/UL (150-450) Mean Platelet Volume 9.6 FL (6.5-10.1) Neutrophils (%) (Auto) % (45.0-75.0) Lymphocytes (%) (Auto) % (20.0-45.0) Monocytes (%) (Auto) % (1.0-10.0) Eosinophils (%) (Auto) % (0.0-3.0) Basophils (%) (Auto) % (0.0-2.0) Differential Total Cells Counted 100 Neutrophils % (Manual) 75 % (45-75) Lymphocytes % (Manual) 21 % (20-45) Monocytes % (Manual) 4 % (1-10) Eosinophils % (Manual) 0 % (0-3) Basophils % (Manual) 0 % (0-2) Band Neutrophils 0 % (0-8) Platelet Estimate Decreased Platelet Morphology Normal Hypochromasia 2+ Poikilocytosis 1+ Anisocytosis 2+ Sodium Level 141 MMOL/L (136-145) Potassium Level 3.5 MMOL/L (3.5-5.1) Chloride Level 111 MMOL/L (98-107) Carbon Dioxide Level 18 MMOL/L (21-32) Anion Gap 12 mmol/L (5-15) Blood Urea Nitrogen 23 mg/dL (7-18) Creatinine 1.8 MG/DL (0.55-1.30) Estimat Glomerular Filtration Rate 45.3 mL/min (>60) Glucose Level 93 MG/DL (74-106) Uric Acid 5.5 MG/DL (2.6-7.2) Calcium Level 7.5 MG/DL (8.5-10.1) Phosphorus Level 2.6 MG/DL (2.5-4.9) Magnesium Level 2.1 MG/DL (1.8-2.4) Total Bilirubin 0.4 MG/DL (0.2-1.0) Aspartate Amino Transf (AST/SGOT) 64 U/L (15-37) Alanine Aminotransferase (ALT/SGPT) 19 U/L (12-78) Alkaline Phosphatase 131 U/L (46-116) C-Reactive Protein, Quantitative 32.1 mg/dL (0.00-0.90) Pro-B-Type Natriuretic Peptide 3525 pg/mL (0-125) Total Protein 5.1 G/DL (6.4-8.2) Albumin 2.2 G/DL (3.4-5.0) Globulin 2.9 g/dL Albumin/Globulin Ratio 0.8 (1.0-2.7) Random Vancomycin Level 10.5 ug/mL Test 01/17/20 01:12 01/17/20 05:53 POC Whole Blood Glucose 104 MG/DL (74-106) 70 MG/DL (74-106) Height (Feet): 6 Height (Inches): 0.00 Weight (Pounds): 150 Objective PE: Vitals: reviewed General Appearance: NAD HEENT: normocephalic, atraumatic Neck: non-tender, normal alignment Respiratory/Chest: nromal breath sounds bilaterally Cardiovascular/Chest: normal peripheral pulses, normal rate Abdomen: normal bowel sounds, soft, nontender Extremities: normal range of motion Samuel Son MD Jan 17, 2020 06:23
[2020-01-17 08:00] VITALS: BP 122/71
[2020-01-17] MEDS: Docusate 100mg cap ORAL SCH (08:15)
[2020-01-17] MEDS: Pantoprazole Inj IVP SCH ×2 (08:15→20:17)
[2020-01-17] MEDS: D5 1/2NS 1,000 ML IV SCH (08:15)
--- NOTE | 2020-01-17 08:56 | Nephrology Progress Note ---
Assessment/Plan Problem List: (1) ARF (acute renal failure) (2) Hypernatremia (3) Hypovolemic shock (4) Altered level of consciousness (5) Hypercalcemia (6) Hyperuricemia Assessment Acute renal failure Possible underlying chronic kidney failure Severe dehydration Hypernatremia indicative of severe water deficit Severe hyperuricemia, partly due to dehydration and renal failure Acute metabolic and toxic encephalopathy Mild, malnutrition Anemia Lactic acid, possible sepsis Hypercalcemia Plan January 16: Patient now in telemetry. Labs pending. Continue to monitor renal parameters. Continue per consultants. January 15: Still in ICU. Doing well post extubation. Renal parameters i mproving. Not requiring any more dialysis treatment after the first dialysis treatment. Medications reviewed. Continue per consultants. January 14: Remains in ICU. Tolerating extubation. Labs reviewed. Abnormal electrolytes addressed. Serum creatinine lowering. Continue per current management. Stop Phos binders. Increase calcium IV. January 13: In ICU. Now extubated. Only dialyzed once. Urine output maintained. Serum creatinine down to 2.5. Patient has NG tube. Continue to monitor renal parameters. Continue per consultants. Abnormal electrolytes addressed. January 12: Remains in ICU. Intubated. Transfused yesterday. Abnormal electrolytes addressed. Dialyzed once January 10. Serum creatinine stable. Will adjust IV fluid. Monitor renal parameters. Dialysis as needed. Calcium gluconate IV ordered. Ionized calcium level ordered with tomorrow's labs. January 11: Patient in ICU. Intubated. On Levophed. Hemoglobin low. Due for transfusion. Electrolyte abnormalities noted and addressed. Patient was dialyzed yesterday. Will check lab tomorrow. Dialysis as needed. Discussed with SELIN Srivastava. January 10: Patient is doing poorly. Blood pressure low. ABG abnormal with metabolic acidosis. IV sodium bicarb given. Serum creatinine reno. Patient has acute renal failure. Nontunneled dialysis catheter replacement ordered.. Patient need life saving dialysis treatment SRINIVAS. January 09: Labs reviewed. IV D5 and a half with sodium bicarb initiated. Serum creatinine higher. Continue to monitor renal parameters. NG feeding was changed to Nepro. Patient remains full code. Poor prognosis. January 08: Labs reviewed. IV D5W discontinued. 500 cc 3% saline ordered. NG tube for feeding and for medications. Allopurinol dose increased. Continue to monitor renal parameters serum calcium and phosphorus. January 07: Labs reviewed. Serum calcium remains elevated. Uric acid still elevated. Will give pamidronate 60 mg IV piggyback once for hypercalcemia. Continue to monitor renal parameters. Continue D5W 150 cc an hour. Start Bicitra 30 cc p.o. every 6 hours. Add allopurinol D5W IV hydration Albumin bolus N.p.o. until able to take p.o. Antibiotics Monitor renal parameters monitor calcium, monitor uric acid Subjective ROS Limited/Unobtainable: Yes Objective Objective Last 24 Hour Vital Signs Date Time Temp Pulse Resp B/P (MAP) Pulse Ox O2 Delivery O2 Flow Rate FiO2 01/17/20 04:00 105 01/17/20 04:00 97.9 96 22 141/75 (97) 92 01/17/20 00:00 97.5 100 22 135/77 (96) 95 01/16/20 21:00 Room Air 01/16/20 20:14 94 16 98 Nasal Cannula 2.0 28 01/16/20 20:14 98 Nasal Cannula 2.0 28 01/16/20 20:00 84 01/16/20 20:00 97.5 98 24 124/72 (89) 97 01/16/20 19:26 97.9 94 21 130/75 (93) 97 01/16/20 18:00 97.7 97 20 130/75 (93) 97 01/16/20 17:00 95 21 139/67 (91) 99 01/16/20 16:00 97 01/16/20 16:00 98.0 96 19 132/86 (101) 01/16/20 16:00 Room Air 01/16/20 15:00 97 20 109/91 (97) 99 01/16/20 14:00 93 18 132/67 (88) 97 01/16/20 13:00 91 18 143/64 (90) 98 01/16/20 12:00 91 01/16/20 12:00 97.5 88 30 126/64 (84) 97 01/16/20 12:00 Room Air 01/16/20 11:00 100 18 130/70 (90) 98 01/16/20 10:00 99 19 128/71 (90) 96 01/16/20 09:00 97 24 134/64 (87) 97 Intake and Output 01/16/20 01/17/20 19:00 07:00 Intake Total 500 ml 120 ml Output Total 1230 ml 1000 ml Balance -730 ml -880 ml Free Water 60 ml IV Total 360 ml Tube Feeding 80 ml 120 ml Output Urine Total 1230 ml 1000 ml # Bowel Movements 3 Chemistry panel not drawn today yet laboratory Tests 01/16/20 23:47: POC Whole Blood Glucose 65L 01/17/20 01:12: POC Whole Blood Glucose 104 01/17/20 05:53: POC Whole Blood Glucose 70L 01/17/20 08:34: POC Whole Blood Glucose 75 Height (Feet): 6 Height (Inches): 0.00 Weight (Pounds): 150 General Appearance: no apparent distress, lethargic EENT: other - NG tube in place Cardiovascular: tachycardia Respiratory/Chest: decreased breath sounds Abdomen: distended Dhiraj Biswas MD Jan 17, 2020 08:55
--- NOTE | 2020-01-17 09:20 | Pulmonology Progress Note ---
Subjective ROS Limited/Unobtainable: Yes Interval Events: On nasal o2 Constitutional: Reports: no symptoms HEENT: Repors: no symptoms Respiratory: Reports: no symptoms Cardiovascular: Reports: no symptoms Gastrointestinal/Abdominal: Reports: no symptoms Genitourinary: Reports: no symptoms Allergies: Coded Allergies: No Known Allergies (Unverified , 03/18/19) All Systems: reviewed and negative except above Objective Last 24 Hour Vital Signs Date Time Temp Pulse Resp B/P (MAP) Pulse Ox O2 Delivery O2 Flow Rate FiO2 01/17/20 04:00 105 01/17/20 04:00 97.9 96 22 141/75 (97) 92 01/17/20 00:00 97.5 100 22 135/77 (96) 95 01/16/20 21:00 Room Air 01/16/20 20:14 94 16 98 Nasal Cannula 2.0 28 01/16/20 20:14 98 Nasal Cannula 2.0 28 01/16/20 20:00 84 01/16/20 20:00 97.5 98 24 124/72 (89) 97 01/16/20 19:26 97.9 94 21 130/75 (93) 97 01/16/20 18:00 97.7 97 20 130/75 (93) 97 01/16/20 17:00 95 21 139/67 (91) 99 01/16/20 16:00 97 01/16/20 16:00 98.0 96 19 132/86 (101) 01/16/20 16:00 Room Air 01/16/20 15:00 97 20 109/91 (97) 99 01/16/20 14:00 93 18 132/67 (88) 97 01/16/20 13:00 91 18 143/64 (90) 98 01/16/20 12:00 91 01/16/20 12:00 97.5 88 30 126/64 (84) 97 01/16/20 12:00 Room Air 01/16/20 11:00 100 18 130/70 (90) 98 01/16/20 10:00 99 19 128/71 (90) 96 Intake and Output 01/16/20 01/17/20 19:00 07:00 Intake Total 500 ml 120 ml Output Total 1230 ml 1000 ml Balance -730 ml -880 ml Free Water 60 ml IV Total 360 ml Tube Feeding 80 ml 120 ml Output Urine Total 1230 ml 1000 ml # Bowel Movements 3 General Appearance: no acute distress HEENT: normocephalic Respiratory: chest wall non-tender, lungs clear Cardiovascular: normal peripheral pulses, normal rate Abdomen: normal bowel sounds Laboratory Tests 01/16/20 23:47: POC Whole Blood Glucose 65L 01/17/20 01:12: POC Whole Blood Glucose 104 01/17/20 05:53: POC Whole Blood Glucose 70L 01/17/20 08:34: POC Whole Blood Glucose 75 Current Medications Medications (Trade) Dose Ordered Sig/Jesse Route PRN Reason Start Time Stop Time Status Last Admin Dose Admin Acetaminophen (Tylenol) 650 mg Q4H PRN ORAL PRNH/TEMP 01/05/20 20:15 02/04/20 20:14 01/12/20 03:10 Albuterol/ Ipratropium (Albuterol/ Ipratropium) 3 ml Q4H PRN HHN Bronchospasm 01/15/20 15:36 01/20/20 15:35 Allopurinol (allopurinoL) 300 mg DAILY NG 01/16/20 09:00 02/06/20 14:14 01/17/20 08:15 Barium Sulfate (Varibar Honey) 250 ml NOW PRN MC RAD 01/14/20 11:45 01/17/20 11:31 Barium Sulfate (Varibar [place]) 240 ml NOW PRN MC RAD 01/14/20 11:45 01/17/20 11:31 Barium Sulfate (Varibar Pudding) 230 ml NOW PRN MC RAD 01/14/20 11:45 01/17/20 11:31 Barium Sulfate (Varibar Thin Liquid powder) 148 gm NOW PRN MC RAD 01/14/20 11:45 01/17/20 11:31 Bisacodyl (Dulcolax) 10 mg DAILY PRN RECTAL Constipation 01/05/20 20:15 04/04/20 20:14 Calcium Gluconate/ Sodium Chloride 50 ml @ 50 mls/hr Q8HR IVPB 01/15/20 14:00 04/12/20 20:59 01/17/20 05:48 Cefepime HCl 1 gm/ Dextrose 55 ml @ 110 mls/hr Q24H IVPB 01/14/20 11:00 01/21/20 10:59 01/16/20 11:44 Chlorhexidine Gluconate (Navya-Hex 2%) 1 applic DAILY@2000 TOPIC 01/11/20 20:00 04/10/20 19:59 01/16/20 22:32 Dextrose (Dextrose 50%) 25 ml Q30M PRN IV Hypoglycemia 01/05/20 20:15 04/04/20 20:14 Dextrose (Dextrose 50%) 50 ml Q30M PRN IV Hypoglycemia 01/05/20 20:15 04/04/20 20:14 Dextrose/Sodium Chloride 1,000 ml @ 50 mls/hr Q20H IV 01/12/20 12:00 02/11/20 11:59 01/17/20 08:15 Docusate Sodium (Colace) 200 mg DAILY ORAL 01/06/20 09:00 02/05/20 08:59 01/17/20 08:15 Gadobutrol (Gadavist) 7.5 mmol NOW PRN IV Radiology Procedure 01/15/20 13:45 01/19/20 13:44 Linaclotide (Linzess) 290 mcg BEFORE BREAKFAST ORAL 01/10/20 06:30 04/09/20 06:29 01/17/20 05:47 Metoclopramide HCl (Reglan) 10 mg Q6H IVP 01/16/20 10:45 02/15/20 10:44 01/17/20 05:17 Metoclopramide HCl (Reglan) 10 mg Q6H PRN IVP Nausea & Vomiting 01/16/20 13:00 02/15/20 12:59 Midodrine (Pro-Amatine) 10 mg Q8HR ORAL 01/15/20 14:00 04/13/20 17:59 01/17/20 05:47 Ondansetron HCl (Zofran) 4 mg Q6H PRN IVP Nausea & Vomiting 01/10/20 06:30 02/09/20 06:29 Oxymetazoline HCl (Afrin Nasal [place]) 2 spray Q12HR PRN NASAL dry nasal passage 01/11/20 08:00 04/10/20 07:59 Pantoprazole (Protonix) 40 mg EVERY 12 HOURS IVP 01/05/20 21:00 02/04/20 20:59 01/17/20 08:15 Polyethylene Glycol (Miralax) 17 gm BEDTIME NG 01/11/20 21:00 02/08/20 20:59 01/16/20 22:32 Sennosides (Senokot) 8.6 mg QHS NG 01/11/20 21:00 02/04/20 20:59 01/16/20 22:32 Vancomycin HCl (Vanco pharmacy to dose) 1 ea DAILY PRN MISC Per rx protocol 01/12/20 14:45 02/11/20 14:44 Assessment/Plan Assessment/Plan IMPRESSION: 1. Severe metabolic acidosis. Corrected 2. Respiratory failure; now extubated 3. Diarrhea. 4. Acute renal failure. Nephrology following 5. Anemia DISCUSSION: Doing well on supplemental O2; today on RA Continue antibiotics, IV fluid hydration. Transfer to med-surg Rectal tube prn Daxa Infante Omar Syed MD Jan 17, 2020 09:20
[2020-01-17 09:37] LABS: HEMATOCRIT 33.3 % (42.0-52.0); HEMOGLOBIN 10.4 G/DL (14.2-18.0); MEAN CORPUSCULAR VOLUME 89 FL (80-99); PLATELET COUNT 72 K/UL (150-450); RED BLOOD COUNT 3.75 M/UL (4.70-6.10); RED CELL DISTRIBUTION WIDTH 21.1 % (11.6-14.8)
[2020-01-17 10:05] LABS: ALANINE AMINOTRANSFERASE 20 U/L (12-78); ALBUMIN 2.7 G/DL (3.4-5.0); ALBUMIN/GLOBULIN RATIO 0.8 (1.0-2.7); ALKALINE PHOSPHATASE 130 U/L (46-116); ANION GAP 14 mmol/L (5-15); ASPARTATE AMINO TRANSFERASE 62 U/L (15-37); BILIRUBIN,TOTAL 0.7 MG/DL (0.2-1.0); BLOOD UREA NITROGEN 18 mg/dL (7-18); CALCIUM 8.4 MG/DL (8.5-10.1); CARBON DIOXIDE 19 MMOL/L (21-32); CHLORIDE 110 MMOL/L (98-107); CREATININE 1.4 MG/DL (0.55-1.30); PHOSPHORUS 3.4 MG/DL (2.5-4.9); POTASSIUM 3.5 MMOL/L (3.5-5.1); SODIUM 143 MMOL/L (136-145)
--- NOTE | 2020-01-17 10:11 | Cardiac Electrophysiology PN ---
Assessment/Plan Assessment/Plan 1. Altered mental status due to severe dehydration in view of sodium of 160 and acute renal failure. On IV fluids and IV antibiotics. Ruled out for SD. 2. Hypotension. Off BP meds (at the half-way, the patient was on amlodipine and metoprolol) On Midodrine 10 tid 3. History of CVA, Plavix DCed in view of hematuria. 4. Advanced dementia. NGT feeding 5. Diabetes. 6. Acute renal failure. Cr 4.2. Had HD once only on 01/11/20. No more HD needed and Cr 1.2 7. Hematuria 8. Anemia with Hb 5.8 and coffee ground emesis. FU Dr Bueno 9. Shock liver with increase AST>2000 10. Pancreatic mass x3 . MRI abdomen with contrast pending today KARLO RN Subjective Subjective Transferred to [facility] from ICU in SR in restraints Has NGT in. Off Levo. Failed swallow eval. NPO for MRI abdomen with contrast Objective Last 24 Hour Vital Signs Date Time Temp Pulse Resp B/P (MAP) Pulse Ox O2 Delivery O2 Flow Rate FiO2 01/17/20 04:00 105 01/17/20 04:00 97.9 96 22 141/75 (97) 92 01/17/20 00:00 97.5 100 22 135/77 (96) 95 01/16/20 21:00 Room Air 01/16/20 20:14 94 16 98 Nasal Cannula 2.0 28 01/16/20 20:14 98 Nasal Cannula 2.0 28 01/16/20 20:00 84 01/16/20 20:00 97.5 98 24 124/72 (89) 97 01/16/20 19:26 97.9 94 21 130/75 (93) 97 01/16/20 18:00 97.7 97 20 130/75 (93) 97 01/16/20 17:00 95 21 139/67 (91) 99 01/16/20 16:00 97 01/16/20 16:00 98.0 96 19 132/86 (101) 01/16/20 16:00 Room Air 01/16/20 15:00 97 20 109/91 (97) 99 01/16/20 14:00 93 18 132/67 (88) 97 01/16/20 13:00 91 18 143/64 (90) 98 01/16/20 12:00 91 11/11/20 12:00 97.5 88 30 126/64 (84) 97 01/16/20 12:00 Room Air 01/16/20 11:00 100 18 130/70 (90) 98 Intake and Output 01/16/20 01/17/20 19:00 07:00 Intake Total 500 ml 120 ml Output Total 1230 ml 1000 ml Balance -730 ml -880 ml Free Water 60 ml IV Total 360 ml Tube Feeding 80 ml 120 ml Output Urine Total 1230 ml 1000 ml # Bowel Movements 3 Laboratory Tests Test 01/16/20 23:47 01/17/20 01:12 01/17/20 05:53 01/17/20 08:34 POC Whole Blood Glucose 65 MG/DL (74-106) L 104 MG/DL (74-106) 70 MG/DL (74-106) L 75 MG/DL (74-106) Test 01/17/20 08:50 White Blood Count 9.0 K/UL (4.8-10.8) Red Blood Count 3.75 M/UL (4.70-6.10) L Hemoglobin 10.4 G/DL (14.2-18.0) L Hematocrit 33.3 % (42.0-52.0) L Mean Corpuscular Volume 89 FL (80-99) Mean Corpuscular Hemoglobin 27.8 PG (27.0-31.0) Mean Corpuscular Hemoglobin Concent 31.3 G/DL (32.0-36.0) L Red Cell Distribution Width 21.1 % (11.6-14.8) H Platelet Count 72 K/UL (150-450) L Mean Platelet Volume 9.9 FL (6.5-10.1) Neutrophils (%) (Auto) % (45.0-75.0) Lymphocytes (%) (Auto) % (20.0-45.0) Monocytes (%) (Auto) % (1.0-10.0) Eosinophils (%) (Auto) % (0.0-3.0) Basophils (%) (Auto) % (0.0-2.0) Neutrophils % (Manual) Pending Lymphocytes % (Manual) Pending Platelet Estimate Pending Platelet Morphology Pending Sodium Level 143 MMOL/L (136-145) Potassium Level 3.5 MMOL/L (3.5-5.1) Chloride Level 110 MMOL/L (98-107) H Carbon Dioxide Level 19 MMOL/L (21-32) L Anion Gap 14 mmol/L (5-15) Blood Urea Nitrogen 18 mg/dL (7-18) Creatinine 1.4 MG/DL (0.55-1.30) H Estimat Glomerular Filtration Rate > 60 mL/min (>60) Glucose Level 70 MG/DL (74-106) L Uric Acid 4.9 MG/DL (2.6-7.2) Calcium Level 8.4 MG/DL (8.5-10.1) L Phosphorus Level 3.4 MG/DL (2.5-4.9) Magnesium Level 1.7 MG/DL (1.8-2.4) L Total Bilirubin 0.7 MG/DL (0.2-1.0) Aspartate Amino Transf (AST/SGOT) 62 U/L (15-37) H Alanine Aminotransferase (ALT/SGPT) 20 U/L (12-78) Alkaline Phosphatase 130 U/L (46-116) H Total Protein 5.9 G/DL (6.4-8.2) L Albumin 2.7 G/DL (3.4-5.0) L Globulin 3.2 g/dL Albumin/Globulin Ratio 0.8 (1.0-2.7) L Random Vancomycin Level 16.1 ug/mL Objective HEAD AND NECK: No JVD.NGT in place LUNGS: Coarse rhonchi. CARDIOVASCULAR: Regular S1 and S2 with no gallop. ABDOMEN: Soft. EXTREMITIES: No pitting edema. Kevin Lopez MD Jan 17, 2020 10:10
[2020-01-17] MEDS: Cefepime HCl 1 GM in D5W 55 ML IVPB SCH (10:52)
--- NOTE | 2020-01-17 11:39 | Infectious Diseases Prog Note ---
Assessment/Plan Assessment: Shock- likely combination sepstic and metabolic derangements- SP Probable UTI -01/10 u/a wbc 60-80, nit neg, leuk +3; ucx Neg -Bcx NTD Probable PNA -01/12 CXR: No significant change in bilateral patchy pulmonary opacities, concerning for pneumonia versus edemaq. Small bilateral pleural effusions. -01/10 CXR: Bilateral interstitial and airspace infiltrates versus edema persists. sp cx MRSA (S Vancomycin, bactrim, tetracycline) COVID19 neg -01/04 rapid COVID PCR neg x1 influenza PCR neg CXR: Mild interstitial vascular prominence. No focal infiltrate or consolidation. Acute resp failure- 2ry to vol overload and metabolic acidosis- on VM now 01/10 s- sp intubation 01/10> extubated 01/12 Low grade fever- SP No leukocytosis> pancytopenia -u/a neg, ucx neg Tachycardia, SP-2 ry to severe dehydration- no evidence of infection AVIS,worsened- now improving Hypernatremia>Hyponatremia R>L hydronephrosis Pancreatic lesions -Abd US: Bilateral right greater than left hydronephrosis, increased since prior study of 03/20/2019. Etiology not demonstrated. Empty bladder with a Mathew catheter. 3 hypoechoic lesions within the pancreatic head and body, each measuring about 5 mm. Appearance nonspecific. Bilateral pleural effusions. Echogenic liver, consistent with hepatocellular disease. Surface likely nodularity raises concern for cirrhosis. Gallbladder sludge. Negative for dilated bile ducts. Probable nonobstructive left intrarenal calculi. Multiple hepatic cysts Acute on chronic encephalopathy -CT head: 1. Markedly limited, near nondiagnostic evaluation due to motion artifact. Grossly, age-related changes and small vessel disease of aging are noted. Again grossly, no acute intracranial pathology is detected. If there is a high degree of concern or if there is concern for subtle abnormalities, magnetic resonance imaging of the brain with diffusion-weighted sequences should be performed, due to the markedly limited nature of the current study. Close clinical correlation is necessary. HTN COPD DM2 paraplegia Dementia non verbal [place]) Plan: -Cont empiric Cefepime #4 (abx d #/) given worsening thrombocytopenia - IV Vancomycin #6/7-10 for MRSA PNA -01/13 SP ZOsyn #4 -01/06 SP Ceftriaxone #2 -01/04 Sp IV Vancomycin x1, Cefepime x1 -f/u cx -Monitor CBC/CMP, temperatures -Renal, cards f/u -f/u ucx, Bcx x2, sp cx -aspiration precautions Thank you for consulting [facility]. Will continue to follow along with you. Discussed with RN. Subjective Allergies: Coded Allergies: No Known Allergies (Unverified , 03/18/19) afebrile at RA no leukocytosis Cr improving Objective Last 24 Hour Vital Signs Date Time Temp Pulse Resp B/P (MAP) Pulse Ox O2 Delivery O2 Flow Rate FiO2 01/17/20 08:00 97.0 101 18 122/71 (88) 96 01/17/20 08:00 101 01/17/20 04:00 105 01/17/20 04:00 97.9 96 22 141/75 (97) 92 01/17/20 00:00 97.5 100 22 135/77 (96) 95 01/16/20 21:00 Room Air 01/16/20 20:14 94 16 98 Nasal Cannula 2.0 28 01/16/20 20:14 98 Nasal Cannula 2.0 28 01/16/20 20:00 84 01/16/20 20:00 97.5 98 24 124/72 (89) 97 01/16/20 19:26 97.9 94 21 130/75 (93) 97 01/16/20 18:00 97.7 97 20 130/75 (93) 97 01/16/20 17:00 95 21 139/67 (91) 99 01/16/20 16:00 97 01/16/20 16:00 98.0 96 19 132/86 (101) 01/16/20 16:00 Room Air 01/16/20 15:00 97 20 109/91 (97) 99 01/16/20 14:00 93 18 132/67 (88) 97 01/16/20 13:00 91 18 143/64 (90) 98 01/16/20 12:00 91 01/16/20 12:00 97.5 88 30 126/64 (84) 97 01/16/20 12:00 Room Air Height (Feet): 6 Height (Inches): 0.00 Weight (Pounds): 150 CARDIOVASCULAR: No murmur. LUNGS: Poor exchange. ABDOMEN: Bowel sounds distant. EXTREMITIES: No cyanosis or edema. NEUROLOGIC: The patient moves all extremities, slightly weak. Laboratory Tests Test 01/16/20 23:47 01/17/20 01:12 01/17/20 05:53 01/17/20 08:34 POC Whole Blood Glucose 65 MG/DL (74-106) L 104 MG/DL (74-106) 70 MG/DL (74-106) L 75 MG/DL (74-106) Test 01/17/20 08:50 White Blood Count 9.0 K/UL (4.8-10.8) Red Blood Count 3.75 M/UL (4.70-6.10) L Hemoglobin 10.4 G/DL (14.2-18.0) L Hematocrit 33.3 % (42.0-52.0) L Mean Corpuscular Volume 89 FL (80-99) Mean Corpuscular Hemoglobin 27.8 PG (27.0-31.0) Mean Corpuscular Hemoglobin Concent 31.3 G/DL (32.0-36.0) L Red Cell Distribution Width 21.1 % (11.6-14.8) H Platelet Count 72 K/UL (150-450) L Mean Platelet Volume 9.9 FL (6.5-10.1) Neutrophils (%) (Auto) % (45.0-75.0) Lymphocytes (%) (Auto) % (20.0-45.0) Monocytes (%) (Auto) % (1.0-10.0) Eosinophils (%) (Auto) % (0.0-3.0) Basophils (%) (Auto) % (0.0-2.0) Differential Total Cells Counted 100 Neutrophils % (Manual) 72 % (45-75) Lymphocytes % (Manual) 17 % (20-45) L Monocytes % (Manual) 7 % (1-10) Eosinophils % (Manual) 1 % (0-3) Basophils % (Manual) 0 % (0-2) Band Neutrophils 3 % (0-8) Platelet Estimate Decreased L Platelet Morphology Normal Polychromasia 1+ Hypochromasia 1+ Anisocytosis 2+ Sodium Level 143 MMOL/L (136-145) Potassium Level 3.5 MMOL/L (3.5-5.1) Chloride Level 110 MMOL/L (98-107) H Carbon Dioxide Level 19 MMOL/L (21-32) L Anion Gap 14 mmol/L (5-15) Blood Urea Nitrogen 18 mg/dL (7-18) Creatinine 1.4 MG/DL (0.55-1.30) H Estimat Glomerular Filtration Rate > 60 mL/min (>60) Glucose Level 70 MG/DL (74-106) L Uric Acid 4.9 MG/DL (2.6-7.2) Calcium Level 8.4 MG/DL (8.5-10.1) L Phosphorus Level 3.4 MG/DL (2.5-4.9) Magnesium Level 1.7 MG/DL (1.8-2.4) L Total Bilirubin 0.7 MG/DL (0.2-1.0) Aspartate Amino Transf (AST/SGOT) 62 U/L (15-37) H Alanine Aminotransferase (ALT/SGPT) 20 U/L (12-78) Alkaline Phosphatase 130 U/L (46-116) H Total Protein 5.9 G/DL (6.4-8.2) L Albumin 2.7 G/DL (3.4-5.0) L Globulin 3.2 g/dL Albumin/Globulin Ratio 0.8 (1.0-2.7) L Random Vancomycin Level 16.1 ug/mL Current Medications Medications (Trade) Dose Ordered Sig/Jesse Route PRN Reason Start Time Stop Time Status Last Admin Dose Admin Acetaminophen (Tylenol) 650 mg Q4H PRN ORAL PRNH/TEMP 01/05/20 20:15 02/04/20 20:14 01/12/20 03:10 Albuterol/ Ipratropium (Albuterol/ Ipratropium) 3 ml Q4H PRN HHN Bronchospasm 01/15/20 15:36 01/20/20 15:35 Allopurinol (allopurinoL) 300 mg DAILY NG 01/16/20 09:00 02/06/20 14:14 01/17/20 08:15 Bisacodyl (Dulcolax) 10 mg DAILY PRN RECTAL Constipation 01/05/20 20:15 04/04/20 20:14 Calcium Gluconate/ Sodium Chloride 50 ml @ 50 mls/hr Q8HR IVPB 01/15/20 14:00 04/12/20 20:59 01/17/20 05:48 Cefepime HCl 1 gm/ Dextrose 55 ml @ 110 mls/hr Q24H IVPB 01/14/20 11:00 01/21/20 10:59 01/17/20 10:52 Chlorhexidine Gluconate (Navya-Hex 2%) 1 applic DAILY@2000 TOPIC 01/11/20 20:00 04/10/20 19:59 01/16/20 22:32 Dextrose (Dextrose 50%) 25 ml Q30M PRN IV Hypoglycemia 01/05/20 20:15 04/04/20 20:14 Dextrose (Dextrose 50%) 50 ml Q30M PRN IV Hypoglycemia 01/05/20 20:15 04/04/20 20:14 Dextrose/Sodium Chloride 1,000 ml @ 50 mls/hr Q20H IV 01/12/20 12:00 02/11/20 11:59 01/17/20 08:15 Docusate Sodium (Colace) 200 mg DAILY ORAL 01/06/20 09:00 02/05/20 08:59 01/17/20 08:15 Gadobutrol (Gadavist) 7.5 mmol NOW PRN IV Radiology Procedure 01/15/20 13:45 01/19/20 13:44 Linaclotide (Linzess) 290 mcg BEFORE BREAKFAST ORAL 01/10/20 06:30 04/09/20 06:29 01/17/20 05:47 Metoclopramide HCl (Reglan) 10 mg Q6H IVP 01/16/20 10:45 02/15/20 10:44 01/17/20 10:51 Metoclopramide HCl (Reglan) 10 mg Q6H PRN IVP Nausea & Vomiting 01/16/20 13:00 02/15/20 12:59 Midodrine (Pro-Amatine) 10 mg Q8HR ORAL 01/15/20 14:00 04/13/20 17:59 01/17/20 05:47 Ondansetron HCl (Zofran) 4 mg Q6H PRN IVP Nausea & Vomiting 01/10/20 06:30 02/09/20 06:29 Oxymetazoline HCl (Afrin Nasal [place]) 2 spray Q12HR PRN NASAL dry nasal passage 01/11/20 08:00 04/10/20 07:59 Pantoprazole (Protonix) 40 mg EVERY 12 HOURS IVP 01/05/20 21:00 02/04/20 20:59 01/17/20 08:15 Polyethylene Glycol (Miralax) 17 gm BEDTIME NG 01/11/20 21:00 02/08/20 20:59 01/16/20 22:32 Sennosides (Senokot) 8.6 mg QHS NG 01/11/20 21:00 02/04/20 20:59 01/16/20 22:32 Vancomycin HCl ([facility] pharmacy to dose) 1 ea DAILY PRN MISC Per rx protocol 01/12/20 14:45 02/11/20 14:44 Clara Guerin M.D. Jan 17, 2020 11:39
[2020-01-17 12:00] VITALS: BP 123/67
--- NOTE | 2020-01-17 13:18 | General Progress Note ---
Subjective Constitutional: Reports: weakness Allergies: Coded Allergies: No Known Allergies (Unverified , 03/18/19) All Systems: reviewed and negative except above Subjective ng calm sleepy Objective Last 24 Hour Vital Signs Date Time Temp Pulse Resp B/P (MAP) Pulse Ox O2 Delivery O2 Flow Rate FiO2 01/17/20 12:00 106 01/17/20 12:00 98.7 106 20 123/67 (85) 97 01/17/20 08:00 97.0 101 18 122/71 (88) 96 01/17/20 08:00 101 01/17/20 04:00 105 01/17/20 04:00 97.9 96 22 141/75 (97) 92 01/17/20 00:00 97.5 100 22 135/77 (96) 95 01/16/20 21:00 Room Air 01/16/20 20:14 94 16 98 Nasal Cannula 2.0 28 01/16/20 20:14 98 Nasal Cannula 2.0 28 01/16/20 20:00 84 01/16/20 20:00 97.5 98 24 124/72 (89) 97 01/16/20 19:26 97.9 94 21 130/75 (93) 97 01/16/20 18:00 97.7 97 20 130/75 (93) 97 01/16/20 17:00 95 21 139/67 (91) 99 01/16/20 16:00 97 01/16/20 16:00 98.0 96 19 132/86 (101) 01/16/20 16:00 Room Air 01/16/20 15:00 97 20 109/91 (97) 99 01/16/20 14:00 93 18 132/67 (88) 97 Intake and Output 01/16/20 01/17/20 19:00 07:00 Intake Total 500 ml 120 ml Output Total 1230 ml 1000 ml Balance -730 ml -880 ml Free Water 60 ml IV Total 360 ml Tube Feeding 80 ml 120 ml Output Urine Total 1230 ml 1000 ml # Bowel Movements 3 Laboratory Tests 01/16/20 23:47: POC Whole Blood Glucose 65L 01/17/20 01:12: POC Whole Blood Glucose 104 01/17/20 05:53: POC Whole Blood Glucose 70L 01/17/20 08:34: POC Whole Blood Glucose 75 01/17/20 08:50: White Blood Count 9.0, Red Blood Count 3.75L, Hemoglobin 10.4L, Hematocrit 33.3L , Mean Corpuscular Volume 89, Mean Corpuscular Hemoglobin 27.8, Mean Corpuscular Hemoglobin Concent 31.3L, Red Cell Distribution Width 21.1H, Platelet Count 72L, Mean Platelet Volume 9.9, Neutrophils (%) (Auto) , Lymphocytes (%) (Auto) , Monocytes (%) (Auto) , Eosinophils (%) (Auto) , Basophils (%) (Auto) , Differential Total Cells Counted 100, Neutrophils % (Manual) 72, Lymphocytes % (Manual) 17L, Monocytes % (Manual) 7, Eosinophils % (Manual) 1, Basophils % (Manual) 0, Band Neutrophils 3, Platelet Estimate DecreasedL, Platelet Morphology Normal, Polychromasia 1+, Hypochromasia 1+, Anisocytosis 2+, Sodium Level 143, Potassium Level 3.5, Chloride Level 110H, Carbon Dioxide Level 19L, Anion Gap 14, Blood Urea Nitrogen 18, Creatinine 1.4H, Estimat Glomerular Filtration Rate > 60, Glucose Level 70L, Uric Acid 4.9, Calcium Level 8.4L, Phosphorus Level 3.4, Magnesium Level 1.7L, Total Bilirubin 0.7, Aspartate Amino Transf (AST/SGOT) 62H, Alanine Aminotransferase (ALT/SGPT) 20, Alkaline Phosphatase 130H, Total Protein 5.9L, Albumin 2.7L, Globulin 3.2, Albumin/Globulin Ratio 0.8L, Random Vancomycin Level 16.1 Height (Feet): 6 Height (Inches): 0.00 Weight (Pounds): 150 General Appearance: lethargic EENT: normal ENT inspection Neck: normal alignment Cardiovascular: normal peripheral pulses, normal rate, regular rhythm Respiratory/Chest: chest wall non-tender, lungs clear, normal breath sounds Abdomen: normal bowel sounds, non tender, soft Extremities: normal inspection Edema: no edema noted Arm (L), no edema noted Arm (R), no edema noted Leg (L), no edema noted Leg (R), no edema noted Pedal (L), no edema noted Pedal (R), no edema noted Generalized Neurologic: motor weakness Skin: normal pigmentation, warm/dry Assessment/Plan Problem List: (1) Anemia ICD Codes: D64.9 - Anemia, unspecified SNOMED: 055596131 (2) Paraplegia ICD Codes: G82.20 - Paraplegia, unspecified SNOMED: 94527664 (3) Diabetes ICD Codes: E11.9 - Type 2 diabetes mellitus without complications SNOMED: 76314440 (4) Weak ICD Codes: R53.1 - Weakness SNOMED: 36867245 (5) HTN (hypertension) ICD Codes: I10 - Essential (primary) hypertension SNOMED: 71184341 (6) ARF (acute renal failure) ICD Codes: N17.9 - Acute kidney failure, unspecified SNOMED: 90663345 (7) Altered level of consciousness ICD Codes: R40.4 - Transient alteration of awareness SNOMED: 3165201 (8) Dehydration ICD Codes: E86.0 - Dehydration SNOMED: 48746960 (9) Hypernatremia ICD Codes: E87.0 - Hyperosmolality and hypernatremia SNOMED: 895335311 Status: unchanged Assessment/Plan: o2 pulm tx abx ivf cbc bmp am pulm cardio f/u need abd ultrasound Farrukh Ríos DO Jan 17, 2020 13:18
--- NOTE | 2020-01-17 14:39 | Diagnostic Imaging Report ---
Indication: Pain and edema Technique: Grayscale and duplex images of the bilateral lower extremity veins Comparison: None Findings: Bilaterally, grayscale and duplex images demonstrate no evidence of intraluminal thrombus. Normal phasic Doppler waveforms, demonstrating normal augmentation response and no evidence of valvular insufficiency. Greater saphenous vein(s) and tibial veins are patent. Normal compressibility. Note that the femoral venous confluence on the right is not optimally demonstrated, due to the presence of an arterial line in the femoral artery Impression: Negative for evidence of lower extremity deep venous thrombosis bilaterally
--- NOTE | 2020-01-17 15:16 | General Progress Note ---
Subjective ROS Limited/Unobtainable: No Allergies: Coded Allergies: No Known Allergies (Unverified , 03/18/19) Objective Last 24 Hour Vital Signs Date Time Temp Pulse Resp B/P (MAP) Pulse Ox O2 Delivery O2 Flow Rate FiO2 01/17/20 12:00 106 01/17/20 12:00 98.7 106 20 123/67 (85) 97 01/17/20 08:00 97.0 101 18 122/71 (88) 96 01/17/20 08:00 101 01/17/20 04:00 105 01/17/20 04:00 97.9 96 22 141/75 (97) 92 01/17/20 00:00 97.5 100 22 135/77 (96) 95 01/16/20 21:00 Room Air 01/16/20 20:14 94 16 98 Nasal Cannula 2.0 28 01/16/20 20:14 98 Nasal Cannula 2.0 28 01/16/20 20:00 84 01/16/20 20:00 97.5 98 24 124/72 (89) 97 01/16/20 19:26 97.9 94 21 130/75 (93) 97 01/16/20 18:00 97.7 97 20 130/75 (93) 97 01/16/20 17:00 95 21 139/67 (91) 99 01/16/20 16:00 97 01/16/20 16:00 98.0 96 19 132/86 (101) 01/16/20 16:00 Room Air Intake and Output 01/16/20 01/17/20 19:00 07:00 Intake Total 500 ml 120 ml Output Total 1230 ml 1000 ml Balance -730 ml -880 ml Free Water 60 ml IV Total 360 ml Tube Feeding 80 ml 120 ml Output Urine Total 1230 ml 1000 ml # Bowel Movements 3 Laboratory Tests 01/16/20 23:47: POC Whole Blood Glucose 65L 01/17/20 01:12: POC Whole Blood Glucose 104 01/17/20 05:53: POC Whole Blood Glucose 70L 01/17/20 08:34: POC Whole Blood Glucose 75 01/17/20 08:50: White Blood Count 9.0, Red Blood Count 3.75L, Hemoglobin 10.4L, Hematocrit 33.3L , Mean Corpuscular Volume 89, Mean Corpuscular Hemoglobin 27.8, Mean Corpuscular Hemoglobin Concent 31.3L, Red Cell Distribution Width 21.1H, Platelet Count 72L, Mean Platelet Volume 9.9, Neutrophils (%) (Auto) , Lymphocytes (%) (Auto) , Monocytes (%) (Auto) , Eosinophils (%) (Auto) , Basophils (%) (Auto) , Differential Total Cells Counted 100, Neutrophils % (Manual) 72, Lymphocytes % (Manual) 17L, Monocytes % (Manual) 7, Eosinophils % (Manual) 1, Basophils % (Manual) 0, Band Neutrophils 3, Platelet Estimate DecreasedL, Platelet Morphology Normal, Polychromasia 1+, Hypochromasia 1+, Anisocytosis 2+, Sodium Level 143, Potassium Level 3.5, Chloride Level 110H, Carbon Dioxide Level 19L, Anion Gap 14, Blood Urea Nitrogen 18, Creatinine 1.4H, Estimat Glomerular Filtration Rate > 60, Glucose Level 70L, Uric Acid 4.9, Calcium Level 8.4L, Phosphorus Level 3.4, Magnesium Level 1.7L, Total Bilirubin 0.7, Aspartate Amino Transf (AST/SGOT) 62H, Alanine Aminotransferase (ALT/SGPT) 20, Alkaline Phosphatase 130H, Total Protein 5.9L, Albumin 2.7L, Globulin 3.2, Albumin/Globulin Ratio 0.8L, Random Vancomycin Level 16.1 Height (Feet): 6 Height (Inches): 0.00 Weight (Pounds): 150 General Appearance: lethargic EENT: normal ENT inspection Neck: supple Cardiovascular: normal rate Respiratory/Chest: decreased breath sounds Abdomen: normal bowel sounds, non tender, soft Extremities: non-tender Assessment/Plan Status: unchanged Assessment/Plan: AMS dementia Anemia DM hyper CA elevated AST low albumin COPD RI HTN extubated NGTF for now repeat swallow eval pending may need PEG on reglan GTF Glucerna 1.5 GI procedures on hold fu nephrology and cardiology recs fu stool ob>>> neg bowel regimen cbc in am fu Paulino Pierce MD Jan 17, 2020 15:16
[2020-01-17 16:00] VITALS: BP 129/76
[2020-01-17] MEDS ORDERED: LORazepam Inj 2mg/ml 1ml IV SCH (18:00)
--- NOTE | 2020-01-17 18:00 | Surgery Progress Note ---
Surgery Progress Note Subjective Procedure Performed Right femoral temporary hemodialysis catheter insertion Additional Comments strongly recommend MRI. unable to obtain consent. medically necessary and indicated. recommend proceeding with contrast in patients best interest Objective Last 24 Hour Vital Signs Date Time Temp Pulse Resp B/P (MAP) Pulse Ox O2 Delivery O2 Flow Rate FiO2 01/17/20 16:00 98.7 95 19 129/76 (93) 96 01/17/20 12:00 106 01/17/20 12:00 98.7 106 20 123/67 (85) 97 01/17/20 09:00 Room Air 01/17/20 08:00 97.0 101 18 122/71 (88) 96 01/17/20 08:00 101 01/17/20 04:00 105 01/17/20 04:00 97.9 96 22 141/75 (97) 92 01/17/20 00:00 97.5 100 22 135/77 (96) 95 01/16/20 21:00 Room Air 01/16/20 20:14 94 16 98 Nasal Cannula 2.0 28 01/16/20 20:14 98 Nasal Cannula 2.0 28 01/16/20 20:00 84 01/16/20 20:00 97.5 98 24 124/72 (89) 97 01/16/20 19:26 97.9 94 21 130/75 (93) 97 01/16/20 18:00 97.7 97 20 130/75 (93) 97 I&O Intake and Output 01/16/20 01/17/20 19:00 07:00 Intake Total 500 ml 120 ml Output Total 1230 ml 1000 ml Balance -730 ml -880 ml Free Water 60 ml IV Total 360 ml Tube Feeding 80 ml 120 ml Output Urine Total 1230 ml 1000 ml # Bowel Movements 3 Cardiovascular: RSR Respiratory: decreased breath sounds Abdomen: non-tender, present bowel sounds Extremities: no tenderness, no cyanosis Laboratory Tests Test 01/16/20 23:47 01/17/20 01:12 01/17/20 05:53 01/17/20 08:34 POC Whole Blood Glucose 65 MG/DL (74-106) L 104 MG/DL (74-106) 70 MG/DL (74-106) L 75 MG/DL (74-106) Test 01/17/20 08:50 01/17/20 17:39 White Blood Count 9.0 K/UL (4.8-10.8) Red Blood Count 3.75 M/UL (4.70-6.10) L Hemoglobin 10.4 G/DL (14.2-18.0) L Hematocrit 33.3 % (42.0-52.0) L Mean Corpuscular Volume 89 FL (80-99) Mean Corpuscular Hemoglobin 27.8 PG (27.0-31.0) Mean Corpuscular Hemoglobin Concent 31.3 G/DL (32.0-36.0) L Red Cell Distribution Width 21.1 % (11.6-14.8) H Platelet Count 72 K/UL (150-450) L Mean Platelet Volume 9.9 FL (6.5-10.1) Neutrophils (%) (Auto) % (45.0-75.0) Lymphocytes (%) (Auto) % (20.0-45.0) Monocytes (%) (Auto) % (1.0-10.0) Eosinophils (%) (Auto) % (0.0-3.0) Basophils (%) (Auto) % (0.0-2.0) Differential Total Cells Counted 100 Neutrophils % (Manual) 72 % (45-75) Lymphocytes % (Manual) 17 % (20-45) L Monocytes % (Manual) 7 % (1-10) Eosinophils % (Manual) 1 % (0-3) Basophils % (Manual) 0 % (0-2) Band Neutrophils 3 % (0-8) Platelet Estimate Decreased L Platelet Morphology Normal Polychromasia 1+ Hypochromasia 1+ Anisocytosis 2+ Sodium Level 143 MMOL/L (136-145) Potassium Level 3.5 MMOL/L (3.5-5.1) Chloride Level 110 MMOL/L (98-107) H Carbon Dioxide Level 19 MMOL/L (21-32) L Anion Gap 14 mmol/L (5-15) Blood Urea Nitrogen 18 mg/dL (7-18) Creatinine 1.4 MG/DL (0.55-1.30) H Estimat Glomerular Filtration Rate > 60 mL/min (>60) Glucose Level 70 MG/DL (74-106) L Uric Acid 4.9 MG/DL (2.6-7.2) Calcium Level 8.4 MG/DL (8.5-10.1) L Phosphorus Level 3.4 MG/DL (2.5-4.9) Magnesium Level 1.7 MG/DL (1.8-2.4) L Total Bilirubin 0.7 MG/DL (0.2-1.0) Aspartate Amino Transf (AST/SGOT) 62 U/L (15-37) H Alanine Aminotransferase (ALT/SGPT) 20 U/L (12-78) Alkaline Phosphatase 130 U/L (46-116) H Total Protein 5.9 G/DL (6.4-8.2) L Albumin 2.7 G/DL (3.4-5.0) L Globulin 3.2 g/dL Albumin/Globulin Ratio 0.8 (1.0-2.7) L Random Vancomycin Level 16.1 ug/mL POC Whole Blood Glucose 85 MG/DL (74-106) Plan Problems: (1) Altered level of consciousness (2) Hypovolemic shock Assessment & Plan: resuscitation extubated monitor respiratory keep hob elevated supplemental O2 Gallbladder demonstrates sludge. No stones, wall thickening, nor pericholecystic fluid. Patient unable to report Wilson's sign Common bile duct measures 3 mm in diameter. No intrahepatic biliary ductal dilatation. Liver demonstrates coarsened echogenicity and surface nodularity. It demonstrates multiple cysts. Portal vein and hepatic veins are patent. The pancreas demonstrates 3 hypoechoic lesions in the head and body, measuring approximately 5 mm in diameter each. Spleen is unremarkable, poorly visualized. Left kidney measures 11.4 cm in length. Right kidney measures 11.3 cm length. Both kidneys demonstrate normal echogenicity. There is severe right and moderate left hydronephrosis. Echogen ic foci are seen in the left renal sinus and collecting system. Bladder is empty, contains a Mathew catheter. Non-aneurysmal abdominal aorta . There are bilateral pleural effusions Impression: Bilateral right greater than left hydronephrosis, increased since prior study of 03/20/2019. Etiology not demonstrated Empty bladder with a Mathew catheter 3 hypoechoic lesions within the pancreatic head and body, each measuring about 5 mm. Appearance nonspecific. Recommend further evaluation with pancreas protocol MRI Bilateral pleural effusions Echogenic liver, consistent with hepatocellular disease. Surface likely nodularity raises concern for cirrhosis Gallbladder sludge. Negative for dilated bile ducts Probable nonobstructive left intrarenal calculi Multiple hepatic cysts (3) Lactic acid acidosis (4) Hypernatremia (5) Paraplegia (6) Anemia Assessment & Plan: no active bleeding noted no large hematoma dressings okay likely related to heme will monitor transfuse prbc with HD trend labs thank you (7) Diabetes (8) Weak (9) HTN (hypertension) (10) ARF (acute renal failure) (11) Hypercalcemia (12) Hyperuricemia (13) Dehydration (14) UTI (urinary tract infection) (15) Failure to thrive in adult Assessment & Plan: patient identified to have DTI on bilateral heels right with 5cm x 4cm area of dti not open no drainage no signs of infection left with 3cm x 2cm. pillow under leg optifoam dressings nutritional optimization will follow no acute surgery DAILY ESTIMATED NEEDS: Needs based on underweight, suspected wt loss, HD, CRITICAL CARE/ 57.6kg 25-33 kcals/kg 3291-5078 total kcals 1.2-2 g protein/kg 69-115 g total protein 25-30 mL/kg 6828-9938 total fluid mLs NUTRITION DIAGNOSIS: *Increased kcal and pro needs r/t underweight status, suspected significant wt loss as evidenced by pt @ 71% IBW w/ BMI 17.2, underweight per guidelines, w/ suspected signficant wt loss of 30lbs/19% in 10 months. * Swallowing difficulty R/T dysphagia, respiratory status as evidenced by s/p NGT insertion (01/08), now NPO, s/p code blue (01/10), orally intubated. CURRENT TF:NPO ENTERAL NUTRITION RECOMMENDATIONS: WHEN HEMODYNAMICALLY STABLE: Nepro @ 40ml/hr x 24 hrs to provide 960ml, 1728kcal, 77g prot, 698ml free water WHEN HEMODYNAMICALLY STABLE AND MEDICALLY APPROPRIATE TO FEED: -> initiate TF @ 5ml/hr x 6hrs, advance slowly 5ml q 4-6 hrs as tolerated to goal rate -> HOB over 30 degrees/ water flush per MD WITHOUT HEMODYNAMIC STABILITY -> If medically appropriate to feed, rec trophic feeding of Nepro @ 5ml/hr x 24 hrs to maintain gut integrity Lázaro Jenkins 12, 2020 18:00
[2020-01-17 20:00] VITALS: BP_SYST 102; BP_SYST 96; BP_DIAS 60
[2020-01-17] MEDS: Miralax 17gm pkt NG SCH (20:11)
[2020-01-17] MEDS: Sennosides 8.6mg tab NG SCH (20:11)
[2020-01-17] MEDS: Dyna-Hex 2% Top Sol 2oz TOPIC SCH (20:17)
--- NOTE | 2020-01-17 23:41 | Psychiatric Progress Note ---
Psychiatry Progress Note Psychiatry Progress Note Medications Current Medications Medications (Trade) Dose Ordered Sig/Jesse Route PRN Reason Start Time Stop Time Status Last Admin Dose Admin Acetaminophen (Tylenol) 650 mg Q4H PRN ORAL PRNH/TEMP 01/05/20 20:15 02/04/20 20:14 01/12/20 03:10 Albuterol/ Ipratropium (Albuterol/ Ipratropium) 3 ml Q4H PRN HHN Bronchospasm 01/15/20 15:36 01/20/20 15:35 Allopurinol (allopurinoL) 300 mg DAILY NG 01/16/20 09:00 02/06/20 14:14 01/17/20 08:15 Bisacodyl (Dulcolax) 10 mg DAILY PRN RECTAL Constipation 01/05/20 20:15 04/04/20 20:14 Calcium Gluconate/ Sodium Chloride 50 ml @ 50 mls/hr Q8HR IVPB 01/15/20 14:00 04/12/20 20:59 01/17/20 21:01 Cefepime HCl 1 gm/ Dextrose 55 ml @ 110 mls/hr Q24H IVPB 01/14/20 11:00 01/21/20 10:59 01/17/20 10:52 Chlorhexidine Gluconate (Navya-Hex 2%) 1 applic DAILY@2000 TOPIC 01/11/20 20:00 04/10/20 19:59 01/17/20 20:17 Dextrose (Dextrose 50%) 25 ml Q30M PRN IV Hypoglycemia 01/05/20 20:15 04/04/20 20:14 Dextrose (Dextrose 50%) 50 ml Q30M PRN IV Hypoglycemia 01/05/20 20:15 04/04/20 20:14 Dextrose/Sodium Chloride 1,000 ml @ 50 mls/hr Q20H IV 01/12/20 12:00 02/11/20 11:59 01/17/20 08:15 Docusate Sodium (Colace) 200 mg DAILY ORAL 01/06/20 09:00 02/05/20 08:59 01/17/20 08:15 Gadobutrol (Gadavist) 7.5 mmol NOW PRN IV Radiology Procedure 01/15/20 13:45 01/19/20 13:44 Linaclotide (Linzess) 290 mcg BEFORE BREAKFAST ORAL 01/10/20 06:30 04/09/20 06:29 01/17/20 05:47 Metoclopramide HCl (Reglan) 10 mg Q6H IVP 01/16/20 10:45 02/15/20 10:44 01/17/20 22:09 Metoclopramide HCl (Reglan) 10 mg Q6H PRN IVP Nausea & Vomiting 01/16/20 13:00 02/15/20 12:59 Midodrine (Pro-Amatine) 10 mg Q8HR ORAL 01/15/20 14:00 04/13/20 17:59 01/17/20 21:01 Ondansetron HCl (Zofran) 4 mg Q6H PRN IVP Nausea & Vomiting 01/10/20 06:30 02/09/20 06:29 Oxymetazoline HCl (Afrin Nasal [place]) 2 spray Q12HR PRN NASAL dry nasal passage 01/11/20 08:00 04/10/20 07:59 Pantoprazole (Protonix) 40 mg EVERY 12 HOURS IVP 01/05/20 21:00 02/04/20 20:59 01/17/20 20:17 Polyethylene Glycol (Miralax) 17 gm BEDTIME NG 01/11/20 21:00 02/08/20 20:59 01/16/20 22:32 Sennosides (Senokot) 8.6 mg QHS NG 01/11/20 21:00 02/04/20 20:59 01/16/20 22:32 Vancomycin HCl (Vanco pharmacy to dose) 1 ea DAILY PRN MISC Per rx protocol 01/12/20 14:45 02/11/20 14:44 Neurological/Psychiatric: Denies: no symptoms, anxiety, depressed, emotional problems, headache, numbness, paresthesia, pre-existing deficit, seizure, tingling, tremors, weakness, other Allergies: Coded Allergies: No Known Allergies (Unverified , 03/18/19) Objective Data Height (Feet): 6 Height (Inches): 0.00 Weight (Pounds): 150 General Appearance: lethargic Additional Comments: awake, disoriented. Mood is anxious with agitation. Affect is blunted, congruent with mood. Thought process, there is a paucity of thought content. Thought content, no suicidal or homicidal ideation. Cognition is impaired. Insight and judgment is impaired. Assessment/Plan [place] I: ASSESSMENT: [place] I Dementia. Dementia with behavior disturbance. [place] II Deferred. [place] III Failure to thrive. [place] IV Low. [place] V 20. PLAN: 1. Remeron 15 mg at bedtime to stimulate his appetite. 2. Discussed with the nurse. Status: unchanged Status Narrative ASSESSMENT: [place] I Dementia. Dementia with behavior disturbance. [place] II Deferred. [place] III Failure to thrive. [place] IV Low. [place] V 20. PLAN: 1. Remeron 15 mg at bedtime to stimulate his appetite. 2. Discussed with the nurse. Assessment/Plan: ASSESSMENT: [place] I Dementia. Dementia with behavior disturbance. [place] II Deferred. [place] III Failure to thrive. [place] IV Low. [place] V 20. PLAN: 1. Remeron 15 mg at bedtime to stimulate his appetite. 2. Discussed with the nurse. Toney Bernstein MD Jan 17, 2020 23:41
[2020-01-18] VITALS: BP 139/76
[2020-01-18] MEDS: D5 1/2NS 1,000 ML IV SCH (01:50)
[2020-01-18 04:00] VITALS: BP 125/73
[2020-01-18] MEDS: Metoclopramide 10mg/2ml Inj IVP SCH ×4 (04:02→22:45)
[2020-01-18] MEDS: Midodrine 10mg tab ORAL SCH ×4 (04:59→22:00)
[2020-01-18] MEDS: Calcium Gluconate 1gm/50ml 50 ML IVPB SCH ×3 (05:00→21:08)
[2020-01-18 06:04] LABS: HEMATOCRIT 25.5 % (42.0-52.0); HEMOGLOBIN 8.1 G/DL (14.2-18.0); MEAN CORPUSCULAR VOLUME 90 FL (80-99); PLATELET COUNT 68 K/UL (150-450); RED BLOOD COUNT 2.82 M/UL (4.70-6.10); RED CELL DISTRIBUTION WIDTH 21.6 % (11.6-14.8); WHITE BLOOD COUNT 7.1 K/UL (4.8-10.8)
[2020-01-18 06:08] LABS: ANION GAP 11 mmol/L (5-15); BLOOD UREA NITROGEN 14 mg/dL (7-18); CALCIUM 8.2 MG/DL (8.5-10.1); CARBON DIOXIDE 20 MMOL/L (21-32); CHLORIDE 112 MMOL/L (98-107); CREATININE 1.3 MG/DL (0.55-1.30); SODIUM 143 MMOL/L (136-145)
[2020-01-18 08:00] VITALS: BP 131/66
[2020-01-18] MEDS ORDERED: Omnipaque-300 100ml vial INJ PRN (08:15)
--- NOTE | 2020-01-18 08:37 | General Progress Note ---
Subjective Constitutional: Reports: weakness Allergies: Coded Allergies: No Known Allergies (Unverified , 03/18/19) All Systems: reviewed and negative except above Subjective ng calm sleepy Objective Last 24 Hour Vital Signs Date Time Temp Pulse Resp B/P (MAP) Pulse Ox O2 Delivery O2 Flow Rate FiO2 01/18/20 04:00 97.7 100 18 125/73 (90) 95 01/18/20 03:59 96 01/18/20 00:00 97.7 98 18 139/76 (97) 96 01/17/20 23:32 95 01/17/20 21:00 Room Air 01/17/20 20:10 87 01/17/20 20:00 97.5 96 18 96/60 (72) 96 01/17/20 19:46 96 Nasal Cannula 2.0 28 01/17/20 19:46 98 16 96 Nasal Cannula 2.0 28 01/17/20 19:01 85 18 132/72 95 01/17/20 18:31 99 20 129/76 97 01/17/20 16:00 99 01/17/20 16:00 98.7 95 19 129/76 (93) 96 01/17/20 12:00 106 01/17/20 12:00 98.7 106 20 123/67 (85) 97 01/17/20 09:00 Room Air Intake and Output 01/17/20 01/18/20 19:00 07:00 Intake Total 50 ml 860 ml Output Total 600 ml Balance 50 ml 260 ml Free Water 50 ml IV Total 50 ml 660 ml Tube Feeding 150 ml Output Urine Total 500 ml Stool Total 100 ml # Voids 1 # Bowel Movements 1 Laboratory Tests 01/17/20 08:50: White Blood Count 9.0, Red Blood Count 3.75L, Hemoglobin 10.4L, Hematocrit 33.3L , Mean Corpuscular Volume 89, Mean Corpuscular Hemoglobin 27.8, Mean Corpuscular Hemoglobin Concent 31.3L, Red Cell Distribution Width 21.1H, Platelet Count 72L, Mean Platelet Volume 9.9, Neutrophils (%) (Auto) , Lymphocytes (%) (Auto) , Monocytes (%) (Auto) , Eosinophils (%) (Auto) , Basophils (%) (Auto) , Differential Total Cells Counted 100, Neutrophils % (Manual) 72, Lymphocytes % (Manual) 17L, Monocytes % (Manual) 7, Eosinophils % (Manual) 1, Basophils % (Manual) 0, Band Neutrophils 3, Platelet Estimate DecreasedL, Platelet Morphology Normal, Polychromasia 1+, Hypochromasia 1+, Anisocytosis 2+, Sodium Level 143, Potassium Level 3.5, Chloride Level 110H, Carbon Dioxide Level 19L, Anion Gap 14, Blood Urea Nitrogen 18, Creatinine 1.4H, Estimat Glomerular Filtration Rate > 60, Glucose Level 70L, Uric Acid 4.9, Calcium Level 8.4L, Phosphorus Level 3.4, Magnesium Level 1.7L, Total Bilirubin 0.7, Aspartate Amino Transf (AST/SGOT) 62H, Alanine Aminotransferase (ALT/SGPT) 20, Alkaline Phosphatase 130H, Total Protein 5.9L, Albumin 2.7L, Globulin 3.2, Albumin/Globulin Ratio 0.8L, Random Vancomycin Level 16.1 01/17/20 13:16: POC Whole Blood Glucose 74 01/17/20 13:17: POC Whole Blood Glucose 75 01/17/20 16:36: POC Whole Blood Glucose [Pending] 01/17/20 17:39: POC Whole Blood Glucose 85 01/17/20 21:22: POC Whole Blood Glucose [Pending] 01/18/20 00:34: POC Whole Blood Glucose [Pending] 01/18/20 04:52: POC Whole Blood Glucose [Pending] 01/18/20 05:00: White Blood Count 7.1, Red Blood Count 2.82L, Hemoglobin 8.1L, Hematocrit 25.5L, Mean Corpuscular Volume 90, Mean Corpuscular Hemoglobin 28.7, Mean Corpuscular Hemoglobin Concent 31.8L, Red Cell Distribution Width 21.6H, Platelet Count 68L, Mean Platelet Volume 8.6, Neutrophils (%) (Auto) , Lymphocytes (%) (Auto) , Monocytes (%) (Auto) , Eosinophils (%) (Auto) , Basophils (%) (Auto) , Neutrophils % (Manual) [Pending], Lymphocytes % (Manual) [Pending], Platelet Estimate [Pending], Platelet Morphology [Pending], Sodium Level 143, Potassium Level 3.0L, Chloride Level 112H, Carbon Dioxide Level 20L, Anion Gap 11, Blood Urea Nitrogen 14, Creatinine 1.3, Estimat Glomerular Filtration Rate > 60, Glucose Level 79, Calcium Level 8.2L Height (Feet): 6 Height (Inches): 0.00 Weight (Pounds): 150 General Appearance: lethargic EENT: normal ENT inspection Neck: non-tender, normal alignment, supple Cardiovascular: normal peripheral pulses, normal rate, regular rhythm Respiratory/Chest: chest wall non-tender, lungs clear, normal breath sounds Abdomen: normal bowel sounds, non tender, soft Extremities: normal inspection Edema: no edema noted Arm (L), no edema noted Arm (R), no edema noted Leg (L), no edema noted Leg (R), no edema noted Pedal (L), no edema noted Pedal (R), no edema noted Generalized Neurologic: motor weakness Skin: normal pigmentation, warm/dry Assessment/Plan Problem List: (1) Anemia ICD Codes: D64.9 - Anemia, unspecified SNOMED: 241829103 (2) Paraplegia ICD Codes: G82.20 - Paraplegia, unspecified SNOMED: 68199383 (3) Diabetes ICD Codes: E11.9 - Type 2 diabetes mellitus without complications SNOMED: 75760864 (4) Weak ICD Codes: R53.1 - Weakness SNOMED: 31552910 (5) HTN (hypertension) ICD Codes: I10 - Essential (primary) hypertension SNOMED: 54133519 (6) ARF (acute renal failure) ICD Codes: N17.9 - Acute kidney failure, unspecified SNOMED: 98925279 (7) Altered level of consciousness ICD Codes: R40.4 - Transient alteration of awareness SNOMED: 3554297 (8) Dehydration ICD Codes: E86.0 - Dehydration SNOMED: 14795857 (9) Hypernatremia ICD Codes: E87.0 - Hyperosmolality and hypernatremia SNOMED: 362838628 Status: unchanged Assessment/Plan: o2 pulm tx abx ivf cbc bmp am pulm gi cardio f/u need abd mri w contrast Farrukh Ríos DO Jan 18, 2020 08:37
--- NOTE | 2020-01-18 08:38 | Hematology/Onc Progress Note ---
Assessment/Plan Assessment/Plan Assessment/Recs # Anemia of chronic disease due to underlying chronic medical issues, multifactorial v Gi bleed --> Anemia workup has been ordered, rule out gi bleed --> No evidence of hemolysis is noted, peripheral smear has been reviewed. --> Hgb goal >7. Transfuse prn. --> Epogen or iron at this time is not particularly indicated --> Medications have been reviewed --> low threshold for gi evaluation in case has occult + --> hgb 10-->9.7-->9.2->10-->8.6-->7.7-->5-->8.3->9.3->7.8-->8.2-->8.1 --> 11 flow cytometry ordered bc of nucleated cells on smear # Thrombocytopenia ongoing, worsened since adm --> plt 150-->98-->82-->51->49-->46-->50-->68 --> hep and hiv panel--NEG --> us abd-->shows 3 small lesions, requires further eval --> CT a/p ordered # Multiple lesions noted in pancreas --> MRI abd ordered--> nondiagnostic --> no family available, this is medically necessary/urgent as has contrast # Protein caloric malnutrition --> daily calorie counts --> daily weights --> mirtazapine started # Acute renal failure --> continue on ivfs --> as per renal # Hypokalemia --> replete with K # Severe dehydration --> ivfs ongoing # Hypernatremia indicative of severe water deficit # Severe hyperuricemia, partly due to dehydration and renal failure # Acute metabolic and toxic encephalopathy # Mild, malnutrition # Psych issues per psych # Lactic acid, possible sepsis # Dvt ppx heparin sq->Scds The timing of this note does not necessarily reflect the time of the patient was seen. Greatly appreciate consultation. Subjective Constitutional: Denies: no symptoms, chills, fever, malaise, weakness, other HEENT: Denies: no symptoms, eye pain, blurred vision, tearing, double vision, ear pain, ear discharge, nose pain, nose congestion, throat pain, throat swelling, mouth pain, mouth swelling, other Cardiovascular: Denies: no symptoms, chest pain, edema, irregular heart rate, lightheadedness, palpitations, syncope, other Respiratory: Denies: no symptoms, cough, shortness of breath, SOB with excertion, SOB at rest, sputum, wheezing, other Gastrointestinal/Abdominal: Denies: no symptoms, abdomen distended, abdominal pain, black stools, tarry stools, blood in stool, constipated, diarrhea, difficulty swallowing, nausea, poor appetite, poor fluid intake, rectal bleeding, vomiting, other Genitourinary: Denies: no symptoms, burning, discharge, frequency, flank pain, hematuria, incontinence, pain, urgency, other Neurologic/Psychiatric: Denies: no symptoms, anxiety, depressed, emotional problems, headache, numbness, paresthesia, pre-existing deficit, seizure, tingling, tremors, weakness, other Endocrine: Denies: no symptoms, excessive sweating, flushing, intolerance to cold, intolerance to heat, increased hunger, increased thirst, increased urine, unexplained weight gain, unexplained weight loss, other Allergies: Coded Allergies: No Known Allergies (Unverified , 03/18/19) Subjective 01/07 meds noted, no bleeding, hgb 10, no hemolysis, hgb 10.1 01/08 labs reviewed, vi rn, no major events, no bleeding, hgb lower 01/09 labs noted, no bleeding, vi rn, no major changes, plt lower 01/10 did have epistaxis overnight, no bleeding, night sweats, epistaxis better 01/12 icu, remains on vent, levo, no bleeding, meds noted 01/13 remains in icu, no bleeding, on levo, no major changes 01/14 icu, is on 1l, restarints are off, no bleeding, no night sweats 01/15 icu, meds noted, with diarrhea, rectal tube reinserted, on nc 01/16 out of icu, no bleeding, meds reviewed, cbc ad bmp pending 01/17 unable to lay still for the mri, thus ct ordered, vi [facility] Objective Objective Current Medications Medications (Trade) Dose Ordered Sig/Jesse Route PRN Reason Start Time Stop Time Status Last Admin Dose Admin Acetaminophen (Tylenol) 650 mg Q4H PRN ORAL PRNH/TEMP 01/05/20 20:15 02/04/20 20:14 01/12/20 03:10 Albuterol/ Ipratropium (Albuterol/ Ipratropium) 3 ml Q4H PRN HHN Bronchospasm 01/15/20 15:36 01/20/20 15:35 Allopurinol (allopurinoL) 300 mg DAILY NG 01/16/20 09:00 02/06/20 14:14 01/17/20 08:15 Barium Sulfate (Readi-Cat 2) 450 ml NOW PRN ORAL Radiology Procedure 01/18/20 08:15 01/20/20 08:14 Bisacodyl (Dulcolax) 10 mg DAILY PRN RECTAL Constipation 01/05/20 20:15 04/04/20 20:14 Calcium Gluconate/ Sodium Chloride 50 ml @ 50 mls/hr Q8HR IVPB 01/15/20 14:00 04/12/20 20:59 01/18/20 05:00 Cefepime HCl 1 gm/ Dextrose 55 ml @ 110 mls/hr Q24H IVPB 01/14/20 11:00 01/21/20 10:59 01/17/20 10:52 Chlorhexidine Gluconate (Navay-Hex 2%) 1 applic DAILY@2000 TOPIC 01/11/20 20:00 04/10/20 19:59 01/17/20 20:17 Dextrose (Dextrose 50%) 25 ml Q30M PRN IV Hypoglycemia 01/05/20 20:15 04/04/20 20:14 Dextrose (Dextrose 50%) 50 ml Q30M PRN IV Hypoglycemia 01/05/20 20:15 04/04/20 20:14 Dextrose/Sodium Chloride 1,000 ml @ 50 mls/hr Q20H IV 01/12/20 12:00 02/11/20 11:59 01/18/20 01:50 Docusate Sodium (Colace) 200 mg DAILY ORAL 01/06/20 09:00 02/05/20 08:59 01/17/20 08:15 Gadobutrol (Gadavist) 7.5 mmol NOW PRN IV Radiology Procedure 01/15/20 13:45 01/19/20 13:44 Iohexol (OMNIPAQUE-300 100ml) 100 ml NOW PRN INJ Radiology Procedure 01/18/20 08:15 01/20/20 08:14 Linaclotide (Linzess) 290 mcg BEFORE BREAKFAST ORAL 01/10/20 06:30 04/09/20 06:29 01/17/20 05:47 Magnesium Sulfate 100 ml @ 100 mls/hr Q1H IVPB 01/18/20 08:00 01/18/20 09:59 01/18/20 07:44 Metoclopramide HCl (Reglan) 10 mg Q6H IVP 01/16/20 10:45 02/15/20 10:44 01/18/20 04:02 Metoclopramide HCl (Reglan) 10 mg Q6H PRN IVP Nausea & Vomiting 01/16/20 13:00 02/15/20 12:59 Midodrine (Pro-Amatine) 10 mg Q8HR ORAL 01/15/20 14:00 04/13/20 17:59 01/17/20 21:01 Ondansetron HCl (Zofran) 4 mg Q6H PRN IVP Nausea & Vomiting 01/10/20 06:30 02/09/20 06:29 Oxymetazoline HCl (Afrin Nasal [place]) 2 spray Q12HR PRN NASAL dry nasal passage 01/11/20 08:00 04/10/20 07:59 Pantoprazole (Protonix) 40 mg EVERY 12 HOURS IVP 01/05/20 21:00 02/04/20 20:59 01/17/20 20:17 Polyethylene Glycol (Miralax) 17 gm BEDTIME NG 01/11/20 21:00 02/08/20 20:59 01/16/20 22:32 Potassium Chloride 100 ml @ 100 mls/hr Q1HR IVPB 01/18/20 07:00 01/18/20 10:59 01/18/20 07:41 Sennosides (Senokot) 8.6 mg QHS NG 01/11/20 21:00 02/04/20 20:59 01/16/20 22:32 Vancomycin HCl (Vanco pharmacy to dose) 1 ea DAILY PRN MISC Per rx protocol 01/12/20 14:45 02/11/20 14:44 Last 24 Hour Vital Signs Date Time Temp Pulse Resp B/P (MAP) Pulse Ox O2 Delivery O2 Flow Rate FiO2 01/18/20 04:00 97.7 100 18 125/73 (90) 95 01/18/20 03:59 96 01/18/20 00:00 97.7 98 18 139/76 (97) 96 01/17/20 23:32 95 01/17/20 21:00 Room Air 01/17/20 20:10 87 01/17/20 20:00 97.5 96 18 96/60 (72) 96 01/17/20 19:46 96 Nasal Cannula 2.0 28 01/17/20 19:46 98 16 96 Nasal Cannula 2.0 28 01/17/20 19:01 85 18 132/72 95 01/17/20 18:31 99 20 129/76 97 01/17/20 16:00 99 01/17/20 16:00 98.7 95 19 129/76 (93) 96 01/17/20 12:00 106 01/17/20 12:00 98.7 106 20 123/67 (85) 97 01/17/20 09:00 Room Air 01/17/20 08:00 97.0 101 18 122/71 (88) 96 01/17/20 08:00 101 01/17/20 04:00 105 01/17/20 04:00 97.9 96 22 141/75 (97) 92 01/17/20 00:00 97.5 100 22 135/77 (96) 95 01/16/20 21:00 Room Air 01/16/20 20:14 94 16 98 Nasal Cannula 2.0 28 01/16/20 20:14 98 Nasal Cannula 2.0 28 01/16/20 20:00 84 01/16/20 20:00 97.5 98 24 124/72 (89) 97 01/16/20 19:26 97.9 94 21 130/75 (93) 97 01/16/20 18:00 97.7 97 20 130/75 (93) 97 01/16/20 17:00 95 21 139/67 (91) 99 01/16/20 16:00 97 01/16/20 16:00 98.0 96 19 132/86 (101) 01/16/20 16:00 Room Air 01/16/20 15:00 97 20 109/91 (97) 99 01/16/20 14:00 93 18 132/67 (88) 97 01/16/20 13:00 91 18 143/64 (90) 98 01/16/20 12:00 91 01/16/20 12:00 97.5 88 30 126/64 (84) 97 01/16/20 12:00 Room Air 01/16/20 11:00 100 18 130/70 (90) 98 01/16/20 10:00 99 19 128/71 (90) 96 01/16/20 09:00 97 24 134/64 (87) 97 Intake and Output 01/17/20 01/18/20 19:00 07:00 Intake Total 50 ml 860 ml Output Total 600 ml Balance 50 ml 260 ml Free Water 50 ml IV Total 50 ml 660 ml Tube Feeding 150 ml Output Urine Total 500 ml Stool Total 100 ml # Voids 1 # Bowel Movements 1 Labs Test 01/15/20 17:30 01/16/20 03:00 01/16/20 23:47 01/17/20 01:12 White Blood Count 8.3 K/UL (4.8-10.8) Red Blood Count 2.91 M/UL (4.70-6.10) Hemoglobin 8.2 G/DL (14.2-18.0) Hematocrit 26.2 % (42.0-52.0) Mean Corpuscular Volume 90 FL (80-99) Mean Corpuscular Hemoglobin 28.2 PG (27.0-31.0) Mean Corpuscular Hemoglobin Concent 31.3 G/DL (32.0-36.0) Red Cell Distribution Width 21.4 % (11.6-14.8) Platelet Count 50 K/UL (150-450) Mean Platelet Volume 9.6 FL (6.5-10.1) Neutrophils (%) (Auto) % (45.0-75.0) Lymphocytes (%) (Auto) % (20.0-45.0) Monocytes (%) (Auto) % (1.0-10.0) Eosinophils (%) (Auto) % (0.0-3.0) Basophils (%) (Auto) % (0.0-2.0) Differential Total Cells Counted 100 Neutrophils % (Manual) 75 % (45-75) Lymphocytes % (Manual) 21 % (20-45) Monocytes % (Manual) 4 % (1-10) Eosinophils % (Manual) 0 % (0-3) Basophils % (Manual) 0 % (0-2) Band Neutrophils 0 % (0-8) Platelet Estimate Decreased Platelet Morphology Normal Hypochromasia 2+ Poikilocytosis 1+ Anisocytosis 2+ Sodium Level 141 MMOL/L (136-145) Potassium Level 3.5 MMOL/L (3.5-5.1) Chloride Level 111 MMOL/L (98-107) Carbon Dioxide Level 18 MMOL/L (21-32) Anion Gap 12 mmol/L (5-15) Blood Urea Nitrogen 23 mg/dL (7-18) Creatinine 1.8 MG/DL (0.55-1.30) Estimat Glomerular Filtration Rate 45.3 mL/min (>60) Glucose Level 93 MG/DL (74-106) Uric Acid 5.5 MG/DL (2.6-7.2) Calcium Level 7.5 MG/DL (8.5-10.1) Phosphorus Level 2.6 MG/DL (2.5-4.9) Magnesium Level 2.1 MG/DL (1.8-2.4) Total Bilirubin 0.4 MG/DL (0.2-1.0) Aspartate Amino Transf (AST/SGOT) 64 U/L (15-37) Alanine Aminotransferase (ALT/SGPT) 19 U/L (12-78) Alkaline Phosphatase 131 U/L (46-116) C-Reactive Protein, Quantitative 32.1 mg/dL (0.00-0.90) Pro-B-Type Natriuretic Peptide 3525 pg/mL (0-125) Total Protein 5.1 G/DL (6.4-8.2) Albumin 2.2 G/DL (3.4-5.0) Globulin 2.9 g/dL Albumin/Globulin Ratio 0.8 (1.0-2.7) Random Vancomycin Level 10.5 ug/mL POC Whole Blood Glucose 65 MG/DL (74-106) 104 MG/DL (74-106) Test 01/17/20 05:53 01/17/20 08:34 01/17/20 08:50 01/17/20 13:16 POC Whole Blood Glucose 70 MG/DL (74-106) 75 MG/DL (74-106) 74 MG/DL (74-106) White Blood Count 9.0 K/UL (4.8-10.8) Red Blood Count 3.75 M/UL (4.70-6.10) Hemoglobin 10.4 G/DL (14.2-18.0) Hematocrit 33.3 % (42.0-52.0) Mean Corpuscular Volume 89 FL (80-99) Mean Corpuscular Hemoglobin 27.8 PG (27.0-31.0) Mean Corpuscular Hemoglobin Concent 31.3 G/DL (32.0-36.0) Red Cell Distribution Width 21.1 % (11.6-14.8) Platelet Count 72 K/UL (150-450) Mean Platelet Volume 9.9 FL (6.5-10.1) Neutrophils (%) (Auto) % (45.0-75.0) Lymphocytes (%) (Auto) % (20.0-45.0) Monocytes (%) (Auto) % (1.0-10.0) Eosinophils (%) (Auto) % (0.0-3.0) Basophils (%) (Auto) % (0.0-2.0) Differential Total Cells Counted 100 Neutrophils % (Manual) 72 % (45-75) Lymphocytes % (Manual) 17 % (20-45) Monocytes % (Manual) 7 % (1-10) Eosinophils % (Manual) 1 % (0-3) Basophils % (Manual) 0 % (0-2) Band Neutrophils 3 % (0-8) Platelet Estimate Decreased Platelet Morphology Normal Polychromasia 1+ Hypochromasia 1+ Anisocytosis 2+ Sodium Level 143 MMOL/L (136-145) Potassium Level 3.5 MMOL/L (3.5-5.1) Chloride Level 110 MMOL/L (98-107) Carbon Dioxide Level 19 MMOL/L (21-32) Anion Gap 14 mmol/L (5-15) Blood Urea Nitrogen 18 mg/dL (7-18) Creatinine 1.4 MG/DL (0.55-1.30) Estimat Glomerular Filtration Rate > 60 mL/min (>60) Glucose Level 70 MG/DL (74-106) Uric Acid 4.9 MG/DL (2.6-7.2) Calcium Level 8.4 MG/DL (8.5-10.1) Phosphorus Level 3.4 MG/DL (2.5-4.9) Magnesium Level 1.7 MG/DL (1.8-2.4) Total Bilirubin 0.7 MG/DL (0.2-1.0) Aspartate Amino Transf (AST/SGOT) 62 U/L (15-37) Alanine Aminotransferase (ALT/SGPT) 20 U/L (12-78) Alkaline Phosphatase 130 U/L (46-116) Total Protein 5.9 G/DL (6.4-8.2) Albumin 2.7 G/DL (3.4-5.0) Globulin 3.2 g/dL Albumin/Globulin Ratio 0.8 (1.0-2.7) Random Vancomycin Level 16.1 ug/mL Test 01/17/20 13:17 01/17/20 16:36 01/17/20 17:39 01/17/20 21:22 POC Whole Blood Glucose 75 MG/DL (74-106) 85 MG/DL (74-106) Test 01/18/20 00:34 01/18/20 04:52 01/18/20 05:00 White Blood Count 7.1 K/UL (4.8-10.8) Red Blood Count 2.82 M/UL (4.70-6.10) Hemoglobin 8.1 G/DL (14.2-18.0) Hematocrit 25.5 % (42.0-52.0) Mean Corpuscular Volume 90 FL (80-99) Mean Corpuscular Hemoglobin 28.7 PG (27.0-31.0) Mean Corpuscular Hemoglobin Concent 31.8 G/DL (32.0-36.0) Red Cell Distribution Width 21.6 % (11.6-14.8) Platelet Count 68 K/UL (150-450) Mean Platelet Volume 8.6 FL (6.5-10.1) Neutrophils (%) (Auto) % (45.0-75.0) Lymphocytes (%) (Auto) % (20.0-45.0) Monocytes (%) (Auto) % (1.0-10.0) Eosinophils (%) (Auto) % (0.0-3.0) Basophils (%) (Auto) % (0.0-2.0) Sodium Level 143 MMOL/L (136-145) Potassium Level 3.0 MMOL/L (3.5-5.1) Chloride Level 112 MMOL/L (98-107) Carbon Dioxide Level 20 MMOL/L (21-32) Anion Gap 11 mmol/L (5-15) Blood Urea Nitrogen 14 mg/dL (7-18) Creatinine 1.3 MG/DL (0.55-1.30) Estimat Glomerular Filtration Rate > 60 mL/min (>60) Glucose Level 79 MG/DL (74-106) Calcium Level 8.2 MG/DL (8.5-10.1) Height (Feet): 6 Height (Inches): 0.00 Weight (Pounds): 150 Objective PE: Vitals: reviewed General Appearance: NAD HEENT: normocephalic, atraumatic Neck: non-tender, normal alignment Respiratory/Chest: nromal breath sounds bilaterally Cardiovascular/Chest: normal peripheral pulses, normal rate Abdomen: normal bowel sounds, soft, nontender Extremities: normal range of motion Samuel Son MD Jan 18, 2020 08:38
[2020-01-18] MEDS: Pantoprazole Inj IVP SCH ×2 (08:46→21:08)
[2020-01-18] MEDS: Docusate 100mg cap ORAL SCH (08:46)
--- NOTE | 2020-01-18 09:03 | General Progress Note ---
Subjective ROS Limited/Unobtainable: No Allergies: Coded Allergies: No Known Allergies (Unverified , 03/18/19) Objective Last 24 Hour Vital Signs Date Time Temp Pulse Resp B/P (MAP) Pulse Ox O2 Delivery O2 Flow Rate FiO2 01/18/20 04:00 97.7 100 18 125/73 (90) 95 01/18/20 03:59 96 01/18/20 00:00 97.7 98 18 139/76 (97) 96 01/17/20 23:32 95 01/17/20 21:00 Room Air 01/17/20 20:10 87 01/17/20 20:00 97.5 96 18 96/60 (72) 96 01/17/20 19:46 96 Nasal Cannula 2.0 28 01/17/20 19:46 98 16 96 Nasal Cannula 2.0 28 01/17/20 19:01 85 18 132/72 95 01/17/20 18:31 99 20 129/76 97 01/17/20 16:00 99 01/17/20 16:00 98.7 95 19 129/76 (93) 96 01/17/20 12:00 106 01/17/20 12:00 98.7 106 20 123/67 (85) 97 Intake and Output 01/17/20 01/18/20 19:00 07:00 Intake Total 50 ml 860 ml Output Total 600 ml Balance 50 ml 260 ml Free Water 50 ml IV Total 50 ml 660 ml Tube Feeding 150 ml Output Urine Total 500 ml Stool Total 100 ml # Voids 1 # Bowel Movements 1 Laboratory Tests 01/17/20 13:16: POC Whole Blood Glucose 74 01/17/20 13:17: POC Whole Blood Glucose 75 01/17/20 16:36: POC Whole Blood Glucose [Pending] 01/17/20 17:39: POC Whole Blood Glucose 85 01/17/20 21:22: POC Whole Blood Glucose [Pending] 01/18/20 00:34: POC Whole Blood Glucose [Pending] 01/18/20 04:52: POC Whole Blood Glucose [Pending] 01/18/20 05:00: White Blood Count 7.1, Red Blood Count 2.82L, Hemoglobin 8.1L, Hematocrit 25.5L, Mean Corpuscular Volume 90, Mean Corpuscular Hemoglobin 28.7, Mean Corpuscular Hemoglobin Concent 31.8L, Red Cell Distribution Width 21.6H, Platelet Count 68L, Mean Platelet Volume 8.6, Neutrophils (%) (Auto) , Lymphocytes (%) (Auto) , Monocytes (%) (Auto) , Eosinophils (%) (Auto) , Basophils (%) (Auto) , Differential Total Cells Counted 100, Neutrophils % (Manual) 86H, Lymphocytes % (Manual) 11L, Monocytes % (Manual) 3, Eosinophils % (Manual) 0, Basophils % (Manual) 0, Band Neutrophils 0, Platelet Estimate DecreasedL, Platelet M orphology Normal, Hypochromasia 1+, Anisocytosis 2+, Sodium Level 143, Potassium Level 3.0L, Chloride Level 112H, Carbon Dioxide Level 20L, Anion Gap 11, Blood Urea Nitrogen 14, Creatinine 1.3, Estimat Glomerular Filtration Rate > 60, Glucose Level 79, Calcium Level 8.2L Height (Feet): 6 Height (Inches): 0.00 Weight (Pounds): 150 General Appearance: no apparent distress EENT: normal ENT inspection Neck: supple Cardiovascular: normal rate Respiratory/Chest: decreased breath sounds Abdomen: normal bowel sounds, non tender, soft Extremities: non-tender Assessment/Plan Status: unchanged Assessment/Plan: AMS dementia Anemia DM hyper CA elevated AST low albumin COPD RI HTN extubated NGTF for now swallow eval >> failed>>> bioethic consult for PEG on reglan GTF Glucerna 1.5>> on hold for MRI fu nephrology and cardiology recs fu stool ob>>> neg bowel regimen cbc in am fu MRI Paulino Bueno MD Jan 18, 2020 09:03
--- NOTE | 2020-01-18 09:20 | Pulmonology Progress Note ---
Subjective ROS Limited/Unobtainable: No Interval Events: On nasal o2; NGT in place Constitutional: Reports: no symptoms HEENT: Repors: no symptoms Respiratory: Reports: no symptoms Cardiovascular: Reports: no symptoms Gastrointestinal/Abdominal: Reports: no symptoms Genitourinary: Reports: no symptoms Allergies: Coded Allergies: No Known Allergies (Unverified , 03/18/19) All Systems: reviewed and negative except above Objective Last 24 Hour Vital Signs Date Time Temp Pulse Resp B/P (MAP) Pulse Ox O2 Delivery O2 Flow Rate FiO2 01/18/20 04:00 97.7 100 18 125/73 (90) 95 01/18/20 03:59 96 01/18/20 00:00 97.7 98 18 139/76 (97) 96 01/17/20 23:32 95 01/17/20 21:00 Room Air 01/17/20 20:10 87 01/17/20 20:00 97.5 96 18 96/60 (72) 96 01/17/20 19:46 96 Nasal Cannula 2.0 28 01/17/20 19:46 98 16 96 Nasal Cannula 2.0 28 01/17/20 19:01 85 18 132/72 95 01/17/20 18:31 99 20 129/76 97 01/17/20 16:00 99 01/17/20 16:00 98.7 95 19 129/76 (93) 96 01/17/20 12:00 106 01/17/20 12:00 98.7 106 20 123/67 (85) 97 Intake and Output 01/17/20 01/18/20 19:00 07:00 Intake Total 50 ml 860 ml Output Total 600 ml Balance 50 ml 260 ml Free Water 50 ml IV Total 50 ml 660 ml Tube Feeding 150 ml Output Urine Total 500 ml Stool Total 100 ml # Voids 1 # Bowel Movements 1 General Appearance: no acute distress HEENT: normocephalic Respiratory: chest wall non-tender, lungs clear Cardiovascular: normal peripheral pulses, normal rate Abdomen: normal bowel sounds Laboratory Tests 01/17/20 13:16: POC Whole Blood Glucose 74 01/17/20 13:17: POC Whole Blood Glucose 75 01/17/20 16:36: POC Whole Blood Glucose [Pending] 01/17/20 17:39: POC Whole Blood Glucose 85 01/17/20 21:22: POC Whole Blood Glucose [Pending] 01/18/20 00:34: POC Whole Blood Glucose [Pending] 01/18/20 04:52: POC Whole Blood Glucose [Pending] 01/18/20 05:00: White Blood Count 7.1, Red Blood Count 2.82L, Hemoglobin 8.1L, Hematocrit 25.5L, Mean Corpuscular Volume 90, Mean Corpuscular Hemoglobin 28.7, Mean Corpuscular Hemoglobin Concent 31.8L, Red Cell Distribution Width 21.6H, Platelet Count 68L, Mean Platelet Volume 8.6, Neutrophils (%) (Auto) , Lymphocytes (%) (Auto) , Monocytes (%) (Auto) , Eosinophils (%) (Auto) , Basophils (%) (Auto) , Differential Total Cells Counted 100, Neutrophils % (Manual) 86H, Lymphocytes % (Manual) 11L, Monocytes % (Manual) 3, Eosinophils % (Manual) 0, Basophils % (Manual) 0, Band Neutrophils 0, Platelet Estimate DecreasedL, Platelet Morphology Normal, Hypochromasia 1+, Anisocytosis 2+, Sodium Level 143, Potassium Level 3.0L, Chloride Level 112H, Carbon Dioxide Level 20L, Anion Gap 11, Blood Urea Nitrogen 14, Creatinine 1.3, Estimat Glomerular Filtration Rate > 60, Glucose Level 79, Calcium Level 8.2L Current Medications Medications (Trade) Dose Ordered Sig/Jesse Route PRN Reason Start Time Stop Time Status Last Admin Dose Admin Acetaminophen (Tylenol) 650 mg Q4H PRN ORAL PRNH/TEMP 01/05/20 20:15 02/04/20 20:14 01/12/20 03:10 Albuterol/ Ipratropium (Albuterol/ Ipratropium) 3 ml Q4H PRN HHN Bronchospasm 01/15/20 15:36 01/20/20 15:35 Allopurinol (allopurinoL) 300 mg DAILY NG 01/16/20 09:00 02/06/20 14:14 01/18/20 08:46 Barium Sulfate (Readi-Cat 2) 450 ml NOW PRN ORAL Radiology Procedure 01/18/20 08:15 01/20/20 08:14 Bisacodyl (Dulcolax) 10 mg DAILY PRN RECTAL Constipation 01/05/20 20:15 04/04/20 20:14 Calcium Gluconate/ Sodium Chloride 50 ml @ 50 mls/hr Q8HR IVPB 01/15/20 14:00 04/12/20 20:59 01/18/20 05:00 Cefepime HCl 1 gm/ Dextrose 55 ml @ 110 mls/hr Q24H IVPB 01/14/20 11:00 01/21/20 10:59 01/17/20 10:52 Chlorhexidine Gluconate (Navya-Hex 2%) 1 applic DAILY@2000 TOPIC 01/11/20 20:00 04/10/20 19:59 01/17/20 20:17 Dextrose (Dextrose 50%) 25 ml Q30M PRN IV Hypoglycemia 01/05/20 20:15 04/04/20 20:14 Dextrose (Dextrose 50%) 50 ml Q30M PRN IV Hypoglycemia 01/05/20 20:15 04/04/20 20:14 Dextrose/Sodium Chloride 1,000 ml @ 50 mls/hr Q20H IV 01/12/20 12:00 02/11/20 11:59 01/18/20 01:50 Docusate Sodium (Colace) 200 mg DAILY ORAL 01/06/20 09:00 02/05/20 08:59 01/18/20 08:46 Gadobutrol (Gadavist) 7.5 mmol NOW PRN IV Radiology Procedure 01/15/20 13:45 01/19/20 13:44 Iohexol (OMNIPAQUE-300 100ml) 100 ml NOW PRN INJ Radiology Procedure 01/18/20 08:15 01/20/20 08:14 Linaclotide (Linzess) 290 mcg BEFORE BREAKFAST ORAL 01/10/20 06:30 04/09/20 06:29 01/17/20 05:47 Magnesium Sulfate 100 ml @ 100 mls/hr Q1H IVPB 01/18/20 08:00 01/18/20 09:59 01/18/20 08:45 Metoclopramide HCl (Reglan) 10 mg Q6H IVP 01/16/20 10:45 02/15/20 10:44 01/18/20 04:02 Metoclopramide HCl (Reglan) 10 mg Q6H PRN IVP Nausea & Vomiting 01/16/20 13:00 02/15/20 12:59 Midodrine (Pro-Amatine) 10 mg Q8HR ORAL 01/15/20 14:00 04/13/20 17:59 01/17/20 21:01 Ondansetron HCl (Zofran) 4 mg Q6H PRN IVP Nausea & Vomiting 01/10/20 06:30 02/09/20 06:29 Oxymetazoline HCl (Afrin Nasal [place]) 2 spray Q12HR PRN NASAL dry nasal passage 01/11/20 08:00 04/10/20 07:59 Pantoprazole (Protonix) 40 mg EVERY 12 HOURS IVP 01/05/20 21:00 02/04/20 20:59 01/18/20 08:46 Polyethylene Glycol (Miralax) 17 gm BEDTIME NG 01/11/20 21:00 02/08/20 20:59 01/16/20 22:32 Potassium Chloride 100 ml @ 100 mls/hr Q1HR IVPB 01/18/20 07:00 01/18/20 10:59 01/18/20 08:46 Sennosides (Senokot) 8.6 mg QHS NG 01/11/20 21:00 02/04/20 20:59 01/16/20 22:32 Vancomycin HCl (Vanco pharmacy to dose) 1 ea DAILY PRN MISC Per rx protocol 01/12/20 14:45 02/11/20 14:44 Assessment/Plan Assessment/Plan IMPRESSION: 1. Severe metabolic acidosis. Corrected 2. Respiratory failure; now extubated 3. Diarrhea. 4. Acute renal failure. Nephrology following; creatinine now 1.3 5. Anemia DISCUSSION: Doing well on supplemental O2 For CT abd today Needs PEG Continue antibiotics, IV fluid hydration. Daxa Infante Omar Syed MD Jan 18, 2020 09:20
--- NOTE | 2020-01-18 09:45 | Nephrology Progress Note ---
Assessment/Plan Problem List: (1) ARF (acute renal failure) (2) Hypernatremia (3) Hypovolemic shock (4) Altered level of consciousness (5) Hypercalcemia (6) Hyperuricemia Assessment Acute renal failure Possible underlying chronic kidney failure Severe dehydration Hypernatremia indicative of severe water deficit Severe hyperuricemia, partly due to dehydration and renal failure Acute metabolic and toxic encephalopathy Mild, malnutrition Anemia Lactic acid, possible sepsis Hypercalcemia Plan January 17: Labs reviewed. Abnormal electrolyte addressed. Continue per consultants. January 16: Patient now in telemetry. Labs pending. Continue to monitor renal parameters. Continue per consultants. January 15: Still in ICU. Doing well post extubation. Renal parameters improving. Not requiring any more dialysis treatment after the first dialysis treatment. Medications reviewed. Continue per consultants. January 14: Remains in ICU. Tolerating extubation. Labs reviewed. Abnormal electrolytes addressed. Serum creatinine lowering. Continue per current timur snider. Stop Phos binders. Increase calcium IV. January 13: In ICU. Now extubated. Only dialyzed once. Urine output maintai azra. Serum creatinine down to 2.5. Patient has NG tube. Continue to monitor renal parameters. Continue per consultants. Abnormal electrolytes addressed. January 12: Remains in ICU. Intubated. Transfused yesterday. Abnormal electrolytes addressed. Dialyzed once January 10. Serum creatinine stable. Will adjust IV fluid. Monitor renal parameters. Dialysis as needed. Calcium gluconate IV ordered. Ionized calcium level ordered with tomorrow's labs. January 11: Patient in ICU. Intubated. On Levophed. Hemoglobin low. Due for transfusion. Electrolyte abnormalities noted and addressed. Patient was dialyzed yesterday. Will check lab tomorrow. Dialysis as needed. Discussed with SELIN Srivastava. January 10: Patient is doing poorly. Blood pressure low. ABG abnormal with metabolic acidosis. IV sodium bicarb given. Serum creatinine reno. Patient has acute renal failure. Nontunneled dialysis catheter replacement ordered.. Patient need life saving dialysis treatment SRINIVAS. January 09: Labs reviewed. IV D5 and a half with sodium bicarb initiated. Serum creatinine higher. Continue to monitor renal parameters. NG feeding was changed to Nepro. Patient remains full code. Poor prognosis. January 08: Labs reviewed. IV D5W discontinued. 500 cc 3% saline ordered. NG tube for feeding and for medications. Allopurinol dose increased. Continue to monitor renal parameters serum calcium and phosphorus. January 07: Labs reviewed. Serum calcium remains elevated. Uric acid still elevated. Will give pamidronate 60 mg IV piggyback once for hypercalcemia. Continue to monitor renal parameters. Continue D5W 150 cc an hour. Start Bicitra 30 cc p.o. every 6 hours. Add allopurinol D5W IV hydration Albumin bolus N.p.o. until able to take p.o. Antibiotics Monitor renal parameters monitor calcium, monitor uric acid Subjective ROS Limited/Unobtainable: Yes Objective Objective Last 24 Hour Vital Signs Date Time Temp Pulse Resp B/P (MAP) Pulse Ox O2 Delivery O2 Flow Rate FiO2 01/18/20 04:00 97.7 100 18 125/73 (90) 95 01/18/20 03:59 96 01/18/20 00:00 97.7 98 18 139/76 (97) 96 01/17/20 23:32 95 01/17/20 21:00 Room Air 01/17/20 20:10 87 01/17/20 20:00 97.5 96 18 96/60 (72) 96 01/17/20 19:46 96 Nasal Cannula 2.0 28 01/17/20 19:46 98 16 96 Nasal Cannula 2.0 28 01/17/20 19:01 85 18 132/72 95 01/17/20 18:31 99 20 129/76 97 01/17/20 16:00 99 01/17/20 16:00 98.7 95 19 129/76 (93) 96 01/17/20 12:00 106 01/17/20 12:00 98.7 106 20 123/67 (85) 97 Intake and Output 01/17/20 01/18/20 19:00 07:00 Intake Total 50 ml 860 ml Output Total 600 ml Balance 50 ml 260 ml Free Water 50 ml IV Total 50 ml 660 ml Tube Feeding 150 ml Output Urine Total 500 ml Stool Total 100 ml # Voids 1 # Bowel Movements 1 Laboratory Tests 01/17/20 13:16: POC Whole Blood Glucose 74 01/17/20 13:17: POC Whole Blood Glucose 75 01/17/20 16:36: POC Whole Blood Glucose [Pending] 01/17/20 17:39: POC Whole Blood Glucose 85 01/17/20 21:22: POC Whole Blood Glucose [Pending] 01/18/20 00:34: POC Whole Blood Glucose [Pending] 01/18/20 04:52: POC Whole Blood Glucose [Pending] 01/18/20 05:00: White Blood Count 7.1, Red Blood Count 2.82L, Hemoglobin 8.1L, Hematocrit 25.5L, Mean Corpuscular Volume 90, Mean Corpuscular Hemoglobin 28.7, Mean Corpuscular Hemoglobin Concent 31.8L, Red Cell Distribution Width 21.6H, Platelet Count 68L, Mean Platelet Volume 8.6, Neutrophils (%) (Auto) , Lymphocytes (%) (Auto) , Monocytes (%) (Auto) , Eosinophils (%) (Auto) , Basophils (%) (Auto) , Differential Total Cells Counted 100, Neutrophils % (Manual) 86H, Lymphocytes % (Manual) 11L, Monocytes % (Manual) 3, Eosinophils % (Manual) 0, Basophils % (Manual) 0, Band Neutrophils 0, Platelet Estimate DecreasedL, Platelet Morphology Normal, Hypochromasia 1+, Anisocytosis 2+, Sodium Level 143, Potassium Level 3.0L, Chloride Level 112H, Carbon Dioxide Level 20L, Anion Gap 11, Blood Urea Nitrogen 14, Creatinine 1.3, Estimat Glomerular Filtration Rate > 60, Glucose Level 79, Calcium Level 8.2L Height (Feet): 6 Height (Inches): 0.00 Weight (Pounds): 150 General Appearance: no apparent distress, lethargic EENT: other - NG tube Cardiovascular: tachycardia Respiratory/Chest: decreased breath sounds Abdomen: distended Dhiraj Biswas MD Jan 18, 2020 09:45
[2020-01-18] MEDS ORDERED: Vancomycin 1.25gm Premix q24h IVPB SCH (11:00)
--- NOTE | 2020-01-18 11:30 | Infectious Diseases Prog Note ---
Assessment/Plan Assessment: Shock- likely combination sepstic and metabolic derangements- SP Probable UTI -01/10 u/a wbc 60-80, nit neg, leuk +3; ucx Neg -Bcx NTD Probable PNA -01/12 CXR: No significant change in bilateral patchy pulmonary opacities, concerning for pneumonia versus edemaq. Small bilateral pleural effusions. -01/10 CXR: Bilateral interstitial and airspace infiltrates versus edema persists. sp cx MRSA (S Vancomycin, bactrim, tetracycline) COVID19 neg -01/04 rapid COVID PCR neg x1 influenza PCR neg CXR: Mild interstitial vascular prominence. No focal infiltrate or consolidation. Acute resp failure- 2ry to vol overload and metabolic acidosis- on VM now 01/10 s- sp intubation 01/10> extubated 01/12 Low grade fever- SP No leukocytosis> pancytopenia -u/a neg, ucx neg Tachycardia, SP-2 ry to severe dehydration- no evidence of infection AVIS,worsened- now improving Hypernatremia>Hyponatremia R>L hydronephrosis Pancreatic lesions -Abd US: Bilateral right greater than left hydronephrosis, increased since pr ior study of 03/20/2019. Etiology not demonstrated. Empty bladder with a Mathew catheter. 3 hypoechoic lesions within the pancreatic head and body, each measuring about 5 mm. Appearance nonspecific. Bilateral pleural effusions. Echogenic liver, consistent with hepatocellular disease. Surface likely nodularity raises concern for cirrhosis. Gallbladder sludge. Negative for dilated bile ducts. Probable nonobstructive left intrarenal calculi. Multiple hepatic cysts Acute on chronic encephalopathy -CT head: 1. Markedly limited, near nondiagnostic evaluation due to motion artifact. Grossly, age-related changes and small vessel disease of aging are noted. Again grossly, no acute intracranial pathology is detected. If there is a high degree of concern or if there is concern for subtle abnormalities, magnetic resonance imaging of the brain with diffusion-weighted sequences should be performed, due to the markedly limited nature of the current study. Close clinical correlation is necessary. HTN COPD DM2 paraplegia Dementia non verbal [place] resident (elan billkacey) Plan: - IV Vancomycin #7/7 for MRSA PNA -01/16 SP Cefepime #4 -01/13 SP ZOsyn #4 -01/06 SP Ceftriaxone #2 -01/04 Sp IV Vancomycin x1, Cefepime x1 -f/u cx -Monitor CBC/CMP, temperatures -Renal, cards f/u -aspiration precautions Thank you for consulting [facility]. Will continue to follow along with you. Discussed with RN. Subjective Allergies: Coded Allergies: No Known Allergies (Unverified , 03/18/19) afebrile no leukocytosis Cr improving Objective Last 24 Hour Vital Signs Date Time Temp Pulse Resp B/P (MAP) Pulse Ox O2 Delivery O2 Flow Rate FiO2 01/18/20 09:00 Room Air 01/18/20 08:00 93 01/18/20 08:00 97.5 100 20 131/66 (87) 96 01/18/20 04:00 97.7 100 18 125/73 (90) 95 01/18/20 03:59 96 01/18/20 00:00 97.7 98 18 139/76 (97) 96 01/17/20 23:32 95 01/17/20 21:00 Room Air 01/17/20 20:10 87 01/17/20 20:00 97.5 96 18 96/60 (72) 96 01/17/20 19:46 96 Nasal Cannula 2.0 28 01/17/20 19:46 98 16 96 Nasal Cannula 2.0 28 01/17/20 19:01 85 18 132/72 95 01/17/20 18:31 99 20 129/76 97 01/17/20 16:00 99 01/17/20 16:00 98.7 95 19 129/76 (93) 96 01/17/20 12:00 106 01/17/20 12:00 98.7 106 20 123/67 (85) 97 Height (Feet): 6 Height (Inches): 0.00 Weight (Pounds): 150 CARDIOVASCULAR: No murmur. LUNGS: Poor exchange. ABDOMEN: Bowel sounds distant. EXTREMITIES: No cyanosis or edema. NEUROLOGIC: The patient moves all extremities, slightly weak. Laboratory Tests Test 01/17/20 13:16 01/17/20 13:17 01/17/20 16:36 01/17/20 17:39 POC Whole Blood Glucose 74 MG/DL (74-106) 75 MG/DL (74-106) Pending 85 MG/DL (74-106) Test 01/17/20 21:22 01/18/20 00:34 01/18/20 04:52 01/18/20 05:00 POC Whole Blood Glucose Pending Pending Pending White Blood Count 7.1 K/UL (4.8-10.8) Red Blood Count 2.82 M/UL (4.70-6.10) L Hemoglobin 8.1 G/DL (14.2-18.0) L Hematocrit 25.5 % (42.0-52.0) L Mean Corpuscular Volume 90 FL (80-99) Mean Corpuscular Hemoglobin 28.7 PG (27.0-31.0) Mean Corpuscular Hemoglobin Concent 31.8 G/DL (32.0-36.0) L Red Cell Distribution Width 21.6 % (11.6-14.8) H Platelet Count 68 K/UL (150-450) L Mean Platelet Volume 8.6 FL (6.5-10.1) Neutrophils (%) (Auto) % (45.0-75.0) Lymphocytes (%) (Auto) % (20.0-45.0) Monocytes (%) (Auto) % (1.0-10.0) Eosinophils (%) (Auto) % (0.0-3.0) Basophils (%) (Auto) % (0.0-2.0) Differential Total Cells Counted 100 Neutrophils % (Manual) 86 % (45-75) H Lymphocytes % (Manual) 11 % (20-45) L Monocytes % (Manual) 3 % (1-10) Eosinophils % (Manual) 0 % (0-3) Basophils % (Manual) 0 % (0-2) Band Neutrophils 0 % (0-8) Platelet Estimate Decreased L Platelet Morphology Normal Hypochromasia 1+ Anisocytosis 2+ Sodium Level 143 MMOL/L (136-145) Potassium Level 3.0 MMOL/L (3.5-5.1) L Chloride Level 112 MMOL/L (98-107) H Carbon Dioxide Level 20 MMOL/L (21-32) L Anion Gap 11 mmol/L (5-15) Blood Urea Nitrogen 14 mg/dL (7-18) Creatinine 1.3 MG/DL (0.55-1.30) Estimat Glomerular Filtration Rate > 60 mL/min (>60) Glucose Level 79 MG/DL (74-106) Calcium Level 8.2 MG/DL (8.5-10.1) L Current Medications Medications (Trade) Dose Ordered Sig/Jesse Route PRN Reason Start Time Stop Time Status Last Admin Dose Admin Acetaminophen (Tylenol) 650 mg Q4H PRN ORAL PRNH/TEMP 01/05/20 20:15 02/04/20 20:14 01/12/20 03:10 Albuterol/ Ipratropium (Albuterol/ Ipratropium) 3 ml Q4H PRN HHN Bronchospasm 01/15/20 15:36 01/20/20 15:35 Allopurinol (allopurinoL) 300 mg DAILY NG 01/16/20 09:00 02/06/20 14:14 01/18/20 08:46 Barium Sulfate (Readi-Cat 2) 450 ml NOW PRN ORAL Radiology Procedure 01/18/20 08:15 01/20/20 08:14 Bisacodyl (Dulcolax) 10 mg DAILY PRN RECTAL Constipation 01/05/20 20:15 04/04/20 20:14 Calcium Gluconate/ Sodium Chloride 50 ml @ 50 mls/hr Q8HR IVPB 01/15/20 14:00 04/12/20 20:59 01/18/20 05:00 Cefepime HCl 1 gm/ Dextrose 55 ml @ 110 mls/hr Q24H IVPB 01/14/20 11:00 01/21/20 10:59 01/17/20 10:52 Chlorhexidine Gluconate (Navya-Hex 2%) 1 applic DAILY@2000 TOPIC 01/11/20 20:00 04/10/20 19:59 01/17/20 20:17 Dextrose (Dextrose 50%) 25 ml Q30M PRN IV Hypoglycemia 01/05/20 20:15 04/04/20 20:14 Dextrose (Dextrose 50%) 50 ml Q30M PRN IV Hypoglycemia 01/05/20 20:15 04/04/20 20:14 Dextrose/Sodium Chloride 1,000 ml @ 50 mls/hr Q20H IV 01/12/20 12:00 02/11/20 11:59 01/18/20 01:50 Docusate Sodium (Colace) 200 mg DAILY ORAL 01/06/20 09:00 02/05/20 08:59 01/18/20 08:46 Gadobutrol (Gadavist) 7.5 mmol NOW PRN IV Radiology Procedure 01/15/20 13:45 01/19/20 13:44 Iohexol (OMNIPAQUE-300 100ml) 100 ml NOW PRN INJ Radiology Procedure 01/18/20 08:15 01/20/20 08:14 Linaclotide (Linzess) 290 mcg BEFORE BREAKFAST ORAL 01/10/20 06:30 04/09/20 06:29 01/17/20 05:47 Metoclopramide HCl (Reglan) 10 mg Q6H IVP 01/16/20 10:45 02/15/20 10:44 01/18/20 10:20 Metoclopramide HCl (Reglan) 10 mg Q6H PRN IVP Nausea & Vomiting 01/16/20 13:00 02/15/20 12:59 Midodrine (Pro-Amatine) 10 mg Q8HR ORAL 01/15/20 14:00 04/13/20 17:59 01/17/20 21:01 Ondansetron HCl (Zofran) 4 mg Q6H PRN IVP Nausea & Vomiting 01/10/20 06:30 02/09/20 06:29 Oxymetazoline HCl (Afrin Nasal [place]) 2 spray Q12HR PRN NASAL dry nasal passage 01/11/20 08:00 04/10/20 07:59 Pantoprazole (Protonix) 40 mg EVERY 12 HOURS IVP 01/05/20 21:00 02/04/20 20:59 01/18/20 08:46 Polyethylene Glycol (Miralax) 17 gm BEDTIME NG 01/11/20 21:00 02/08/20 20:59 01/16/20 22:32 Sennosides (Senokot) 8.6 mg QHS NG 01/11/20 21:00 02/04/20 20:59 01/16/20 22:32 Vancomycin HCl 250 ml @ 166.667 mls/hr ONCE IVPB 01/18/20 11:00 01/18/20 12:00 Vancomycin HCl (Vanco pharmacy to dose) 1 ea DAILY PRN MISC Per rx protocol 01/12/20 14:45 02/11/20 14:44 Clara Guerin M.D. 13, 2020 11:30
[2020-01-18 12:00] VITALS: BP 135/70
--- NOTE | 2020-01-18 12:50 | Cardiac Electrophysiology PN ---
Assessment/Plan Assessment/Plan 1. Altered mental status due to severe dehydration in view of sodium of 160 and acute renal failure. On IV fluids and IV antibiotics. Ruled out for UT. 2. Hypotension. Off BP meds ([facility], the patient was on amlodipine and metoprolol) On Midodrine 10 tid 3. History of CVA, Plavix DCed in view of hematuria. 4. Advanced dementia. 5. Diabetes. 6. Acute renal failure. Cr 4.2. Had HD once only on 01/11/20. No more HD needed and Cr 1.2 7. Hematuria 8. Anemia with Hb 5.8 and coffee ground emesis. FU Dr Bueno 9. Shock liver with increase AST>2000 10. Pancreatic mass x3 .Just had abdomen and pelvis 11. Dysphagia, NGT feeding. PEG pending ethics eval KARLO RN Subjective Subjective In SR in restraints Has NGT in. Off Levo. Failed swallow eval. S/PI abdomen and pelvis Awaiting Ethics for PEG placement Objective Last 24 Hour Vital Signs Date Time Temp Pulse Resp B/P (MAP) Pulse Ox O2 Delivery O2 Flow Rate FiO2 01/18/20 12:35 90 20 96 Room Air 21 01/18/20 12:35 96 Room Air 21 01/18/20 09:00 Room Air 01/18/20 08:00 93 01/18/20 08:00 97.5 100 20 131/66 (87) 96 01/18/20 04:00 97.7 100 18 125/73 (90) 95 01/18/20 03:59 96 01/18/20 00:00 97.7 98 18 139/76 (97) 96 01/17/20 23:32 95 01/17/20 21:00 Room Air 01/17/20 20:10 87 01/17/20 20:00 97.5 96 18 96/60 (72) 96 01/17/20 19:46 96 Nasal Cannula 2.0 28 01/17/20 19:46 98 16 96 Nasal Cannula 2.0 28 01/17/20 19:01 85 18 132/72 95 01/17/20 18:31 99 20 129/76 97 01/17/20 16:00 99 01/17/20 16:00 98.7 95 19 129/76 (93) 96 Intake and Output 01/17/20 01/18/20 19:00 07:00 Intake Total 50 ml 860 ml Output Total 600 ml Balance 50 ml 260 ml Free Water 50 ml IV Total 50 ml 660 ml Tube Feeding 150 ml Output Urine Total 500 ml Stool Total 100 ml # Voids 1 # Bowel Movements 1 Laboratory Tests Test 01/17/20 13:16 01/17/20 13:17 01/17/20 16:36 01/17/20 17:39 POC Whole Blood Glucose 74 MG/DL (74-106) 75 MG/DL (74-106) Pending 85 MG/DL (74-106) Test 01/17/20 21:22 01/18/20 00:34 01/18/20 04:52 01/18/20 05:00 POC Whole Blood Glucose Pending Pending Pending White Blood Count 7.1 K/UL (4.8-10.8) Red Blood Count 2.82 M/UL (4.70-6.10) L Hemoglobin 8.1 G/DL (14.2-18.0) L Hematocrit 25.5 % (42.0-52.0) L Mean Corpuscular Volume 90 FL (80-99) Mean Corpuscular Hemoglobin 28.7 PG (27.0-31.0) Mean Corpuscular Hemoglobin Concent 31.8 G/DL (32.0-36.0) L Red Cell Distribution Width 21.6 % (11.6-14.8) H Platelet Count 68 K/UL (150-450) L Mean Platelet Volume 8.6 FL (6.5-10.1) Neutrophils (%) (Auto) % (45.0-75.0) Lymphocytes (%) (Auto) % (20.0-45.0) Monocytes (%) (Auto) % (1.0-10.0) Eosinophils (%) (Auto) % (0.0-3.0) Basophils (%) (Auto) % (0.0-2.0) Differential Total Cells Counted 100 Neutrophils % (Manual) 86 % (45-75) H Lymphocytes % (Manual) 11 % (20-45) L Monocytes % (Manual) 3 % (1-10) Eosinophils % (Manual) 0 % (0-3) Basophils % (Manual) 0 % (0-2) Band Neutrophils 0 % (0-8) Platelet Estimate Decreased L Platelet Morphology Normal Hypochromasia 1+ Anisocytosis 2+ Sodium Level 143 MMOL/L (136-145) Potassium Level 3.0 MMOL/L (3.5-5.1) L Chloride Level 112 MMOL/L (98-107) H Carbon Dioxide Level 20 MMOL/L (21-32) L Anion Gap 11 mmol/L (5-15) Blood Urea Nitrogen 14 mg/dL (7-18) Creatinine 1.3 MG/DL (0.55-1.30) Estimat Glomerular Filtration Rate > 60 mL/min (>60) Glucose Level 79 MG/DL (74-106) Calcium Level 8.2 MG/DL (8.5-10.1) L Objective HEAD AND NECK: No JVD.NGT in place LUNGS: Coarse rhonchi. CARDIOVASCULAR: Regular S1 and S2 with no gallop. ABDOMEN: Soft. EXTREMITIES: No pitting edema. Kevin Lopez MD Jan 18, 2020 12:50
--- NOTE | 2020-01-18 14:05 | Surgery Progress Note ---
Surgery Progress Note Subjective Procedure Performed Right femoral temporary hemodialysis catheter insertion Additional Comments could not get MRI pending CT scan instead no n/v comfortable Objective Last 24 Hour Vital Signs Date Time Temp Pulse Resp B/P (MAP) Pulse Ox O2 Delivery O2 Flow Rate FiO2 01/18/20 12:35 90 20 96 Room Air 21 01/18/20 12:35 96 Room Air 21 01/18/20 12:00 108 01/18/20 12:00 97.8 99 21 135/70 (91) 96 01/18/20 09:00 Room Air 01/18/20 08:00 93 01/18/20 08:00 97.5 100 20 131/66 (87) 96 01/18/20 04:00 97.7 100 18 125/73 (90) 95 01/18/20 03:59 96 01/18/20 00:00 97.7 98 18 139/76 (97) 96 01/17/20 23:32 95 01/17/20 21:00 Room Air 01/17/20 20:10 87 01/17/20 20:00 97.5 96 18 96/60 (72) 96 01/17/20 19:46 96 Nasal Cannula 2.0 28 01/17/20 19:46 98 16 96 Nasal Cannula 2.0 28 01/17/20 19:01 85 18 132/72 95 01/17/20 18:31 99 20 129/76 97 01/17/20 16:00 99 01/17/20 16:00 98.7 95 19 129/76 (93) 96 I&O Intake and Output 01/17/20 01/18/20 18:59 06:59 Intake Total 860 ml Output Total 600 ml Balance 260 ml Free Water 50 ml IV Total 660 ml Tube Feeding 150 ml Output Urine Total 500 ml Stool Total 100 ml # Voids 1 # Bowel Movements 1 Dressing: saturated Cardiovascular: RSR Respiratory: decreased breath sounds Abdomen: non-tender, present bowel sounds Extremities: no edema, no tenderness, no cyanosis Laboratory Tests Test 01/17/20 16:36 01/17/20 17:39 01/17/20 21:22 01/18/20 00:34 POC Whole Blood Glucose Pending 85 MG/DL (74-106) Pending Pending Test 01/18/20 04:52 01/18/20 05:00 01/18/20 12:56 POC Whole Blood Glucose Pending Pending White Blood Count 7.1 K/UL (4.8-10.8) Red Blood Count 2.82 M/UL (4.70-6.10) L Hemoglobin 8.1 G/DL (14.2-18.0) L Hematocrit 25.5 % (42.0-52.0) L Mean Corpuscular Volume 90 FL (80-99) Mean Corpuscular Hemoglobin 28.7 PG (27.0-31.0) Mean Corpuscular Hemoglobin Concent 31.8 G/DL (32.0-36.0) L Red Cell Distribution Width 21.6 % (11.6-14.8) H Platelet Count 68 K/UL (150-450) L Mean Platelet Volume 8.6 FL (6.5-10.1) Neutrophils (%) (Auto) % (45.0-75.0) Lymphocytes (%) (Auto) % (20.0-45.0) Monocytes (%) (Auto) % (1.0-10.0) Eosinophils (%) (Auto) % (0.0-3.0) Basophils (%) (Auto) % (0.0-2.0) Differential Total Cells Counted 100 Neutrophils % (Manual) 86 % (45-75) H Lymphocytes % (Manual) 11 % (20-45) L Monocytes % (Manual) 3 % (1-10) Eosinophils % (Manual) 0 % (0-3) Basophils % (Manual) 0 % (0-2) Band Neutrophils 0 % (0-8) Platelet Estimate Decreased L Platelet Morphology Normal Hypochromasia 1+ Anisocytosis 2+ Sodium Level 143 MMOL/L (136-145) Potassium Level 3.0 MMOL/L (3.5-5.1) L Chloride Level 112 MMOL/L (98-107) H Carbon Dioxide Level 20 MMOL/L (21-32) L Anion Gap 11 mmol/L (5-15) Blood Urea Nitrogen 14 mg/dL (7-18) Creatinine 1.3 MG/DL (0.55-1.30) Estimat Glomerular Filtration Rate > 60 mL/min (>60) Glucose Level 79 MG/DL (74-106) Calcium Level 8.2 MG/DL (8.5-10.1) L Plan Problems: (1) Altered level of consciousness (2) Hypovolemic shock Assessment & Plan: resuscitation extubated monitor respiratory keep hob elevated supplemental O2 Gallbladder demonstrates sludge. No stones, wall thickening, nor pericholecystic fluid. Patient unable to report Wilson's sign Common bile duct measures 3 mm in diameter. No intrahepatic biliary ductal dilatation. Liver demonstrates coarsened echogenicity and surface nodularity. It demonstrates multiple cysts. Portal vein and hepatic veins are patent. The pancreas demonstrates 3 hypoechoic lesions in the head and body, measuring approximately 5 mm in d iameter each. Spleen is unremarkable, poorly visualized. Left kidney measures 11.4 cm in length. Right kidney measures 11.3 cm length. Both kidneys demonstrate normal echogenicity. There is severe right and moderate left hydronephrosis. Echogenic foci are seen in the left renal sinus and collecting system. Bladder is empty, contains a Mathew catheter. Non-aneurysmal abdominal aorta . There are bilateral pleural effusions Impression: Bilateral right greater than left hydronephrosis, increased since prior study of 03/20/2019. Etiology not demonstrated Empty bladder with a Mathew catheter 3 hypoechoic lesions within the pancreatic head and body, each measuring about 5 mm. Appearance nonspecific. Recommend further evaluation with pancreas protocol MRI Bilateral pleural effusions Echogenic liver, consistent with hepatocellular disease. Surface likely nodularity raises concern for cirrhosis Gallbladder sludge. Negative for dilated bile ducts Probable nonobstructive left intrarenal calculi Multiple hepatic cysts (3) Lactic acid acidosis (4) Hypernatremia (5) Paraplegia (6) Anemia Assessment & Plan: no active bleeding noted no large hematoma dressings okay likely related to heme will monitor transfuse prbc with HD trend labs thank you (7) Diabetes (8) Weak (9) HTN (hypertension) (10) ARF (acute renal failure) (11) Hypercalcemia (12) Hyperuricemia (13) Dehydration (14) UTI (urinary tract infection) (15) Failure to thrive in adult Assessment & Plan: patient identified to have DTI on bilateral heels right with 5cm x 4cm area of dti not open no drainage no signs of infection left with 3cm x 2cm. pillow under leg optifoam dressings nutritional optimization will follow no acute surgery DAILY ESTIMATED NEEDS: Needs based on underweight, suspected wt loss, HD, CRITICAL CARE/ 57.6kg 25-33 kcals/kg 2483-8411 total kcals 1.2-2 g protein/kg 69-115 g total protein 25-30 mL/kg 4227-7188 total fluid mLs NUTRITION DIAGNOSIS: *Increased kcal and pro needs r/t underweight status, suspected significant wt loss as evidenced by pt @ 71% IBW w/ BMI 17.2, underweight per guidelines, w/ suspected signficant wt loss of 30lbs/19% in 10 months. * Swallowing difficulty R/T dysphagia, respiratory status as evidenced by s/p NGT insertion (01/08), now NPO, s/p code blue (01/10), orally intubated. CURRENT TF:NPO ENTERAL NUTRITION RECOMMENDATIONS: WHEN HEMODYNAMICALLY STABLE: Nepro @ 40ml/hr x 24 hrs to provide 960ml, 17 28kcal, 77g prot, 698ml free water WHEN HEMODYNAMICALLY STABLE AND MEDICALLY APPROPRIATE TO FEED: -> initiate TF @ 5ml/hr x 6hrs, advance slowly 5ml q 4-6 hrs as tolerated to goal rate -> HOB over 30 degrees/ water flush per MD WITHOUT HEMODYNAMIC STABILITY -> If medically appropriate to feed, rec trophic feeding of Nepro @ 5ml/hr x 24 hrs to maintain gut integrity Lázaro Jenkins Jan 18, 2020 14:05
[2020-01-18 16:00] VITALS: BP 145/81
--- NOTE | 2020-01-18 16:33 | Diagnostic Imaging Report ---
Indication: Abdominal pain, abnormal liver function tests, pancreatic abnormality seen on prior sonography Technique: Coronal and axial single shot fast spin-echo breath-hold, axial T2 FRFSE, 2-D thick slab MRCP, AXIAL 2-D FIESTA fat saturated, axial 3-D dual echo breath-hold, water weighted axial LAVA FLEX images were obtained of the abdomen. Due to patient inability to lay still and hold breath, MRCP sequences could not be obtained Comparison: Reference made to sonogram dated 01/09/2009 Findings: The pancreas is insufficiently well-visualized to assess the lesions reported on recent sonogram. There is bilateral hydronephrosis. There are multiple cysts within the liver. The spleen is not well-demonstrated, grossly unremarkable. There are bilateral pleural effusions. Impression: Limited exam, as described Bilateral hydronephrosis, etiology not demonstrated. Note that pancreatic lesions described on recent sonogram could not be visualized or assessed Incidental finding of hepatic cysts
--- NOTE | 2020-01-18 16:51 | Diagnostic Imaging Report ---
Clinical Indication: Abdominal pain, evaluation of abnormal findings on prior sonogram Technique: Patient ingested enteric contrast. IV administration nonionic contrast. Arterial and venous phase spiral acquisition obtained through the abdomen and pelvis. Multiplanar reconstructions were generated. Total dose length product 497 mGycm. CTDIvol(s) 5 x 2 mGy. Dose reduction achieved using automated exposure control Comparison: No comparison CT scans. Reference made to abdominal MRI gastritis yesterday, abdominal sonogram 01/10/2020 Findings: There is a large pelvic mass which is cephalad to but inseparable from the prostate. This also is inseparable from the posterior wall of the bladder and there appears to be circumferential bladder wall thickening. This mass also appears to involve the seminal vesicles. This measures approximately 8.8 cm transverse by 10 cm craniocaudad by 7.4 cm AP. The periphery of this mass is very lobulated. The mass may also invade the adjacent rectum. There is bilateral iliac chain lymphadenopathy, with nodes measuring up to 3 cm in diameter. Some of these nodes are very low in attenuation indicating that they are necrotic. There is also retroperitoneal lymphadenopathy. There is severe right and moderate left hydronephrosis and bilateral hydroureter. The dilated ureters terminate at the level of the mass. No intrinsic renal parenchymal abnormality. The pancreas is unremarkable. No findings corresponding to the areas of low-attenuation described on prior sonogram are evident. No pancreatic ductal dilatation is evident. The liver demonstrates multiple cysts. The gallbladder, bile ducts, spleen, adrenals are unremarkable. The bones demonstrate diffuse involvement with multiple mixed osteolytic/osteosclerotic lesions, mostly sclerotic component predominating. There is a right groin dialysis catheter in place, tip at the level of the iliac venous confluence. There is a nasogastric tube,, tip in the stomach. There is a Mathew catheter. There is a rectal tube lying outside the patient with the balloon inflated within the inner gluteal fold. There are bilateral pleural effusions. There is compressive atelectasis of most if not all of both lower lobes. 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 Compressive atelectasis of most of not all of both lower lobes Other findings as noted, including multiple liver cysts The CT scanner at [facility] is accredited by the [employer] and the scans are performed using protocols designed to limit radiation exposure to as low as reasonably achievable to attain images of sufficient resolution adequate for diagnostic evaluation.
[2020-01-18 20:00] VITALS: BP 129/74
[2020-01-18] MEDS: Sennosides 8.6mg tab NG SCH (21:07)
[2020-01-18] MEDS: Dyna-Hex 2% Top Sol 2oz TOPIC SCH (21:08)
[2020-01-18] MEDS: Miralax 17gm pkt NG SCH (21:08)
[2020-01-19] VITALS: BP 148/82
[2020-01-19] MEDS: D5 1/2NS 1,000 ML IV SCH (00:40)
[2020-01-19 04:00] VITALS: BP 140/80
[2020-01-19] MEDS: Calcium Gluconate 1gm/50ml 50 ML IVPB SCH (05:33)
[2020-01-19] MEDS: Metoclopramide 10mg/2ml Inj IVP SCH (05:33)
[2020-01-19] MEDS: Midodrine 10mg tab ORAL SCH ×3 (05:35→22:00)
[2020-01-19 06:28] LABS: HEMATOCRIT 25.1 % (42.0-52.0); MEAN CORPUSCULAR VOLUME 90 FL (80-99); PLATELET COUNT 80 K/UL (150-450); RED BLOOD COUNT 2.78 M/UL (4.70-6.10); RED CELL DISTRIBUTION WIDTH 21.1 % (11.6-14.8); WHITE BLOOD COUNT 6.6 K/UL (4.8-10.8)
[2020-01-19 07:09] LABS: ALANINE AMINOTRANSFERASE 14 U/L (12-78); ALBUMIN/GLOBULIN RATIO 0.6 (1.0-2.7); ALKALINE PHOSPHATASE 126 U/L (46-116); ANION GAP 12 mmol/L (5-15); ASPARTATE AMINO TRANSFERASE 39 U/L (15-37); BILIRUBIN,TOTAL 0.4 MG/DL (0.2-1.0); BLOOD UREA NITROGEN 14 mg/dL (7-18); CARBON DIOXIDE 19 MMOL/L (21-32); CHLORIDE 110 MMOL/L (98-107); CREATININE 1.2 MG/DL (0.55-1.30); PHOSPHORUS 3.7 MG/DL (2.5-4.9); POTASSIUM 3.8 MMOL/L (3.5-5.1); SODIUM 141 MMOL/L (136-145)
[2020-01-19 08:00] VITALS: BP 146/88
[2020-01-19] MEDS: Docusate 100mg cap ORAL SCH (08:19)
[2020-01-19] MEDS: Pantoprazole Inj IVP SCH (08:20)
--- NOTE | 2020-01-19 08:20 | General Progress Note ---
Subjective ROS Limited/Unobtainable: No Allergies: Coded Allergies: No Known Allergies (Unverified , 03/18/19) Objective Last 24 Hour Vital Signs Date Time Temp Pulse Resp B/P (MAP) Pulse Ox O2 Delivery O2 Flow Rate FiO2 01/19/20 08:13 94 Room Air 21 01/19/20 08:12 97 16 94 Room Air 21 01/19/20 04:00 97.5 113 18 140/80 (100) 98 01/19/20 04:00 113 01/19/20 00:00 97.4 105 20 148/82 (104) 98 01/19/20 00:00 113 01/18/20 21:00 Room Air 01/18/20 20:41 96 Room Air 21 01/18/20 20:41 105 20 97 Room Air 21 01/18/20 20:00 97.6 116 23 129/74 (92) 95 01/18/20 20:00 119 01/18/20 16:00 98.1 107 22 145/81 (102) 97 01/18/20 16:00 119 01/18/20 12:35 90 20 96 Room Air 21 01/18/20 12:35 96 Room Air 21 01/18/20 12:00 108 01/18/20 12:00 97.8 99 21 135/70 (91) 96 01/18/20 09:00 Room Air Intake and Output 01/18/20 01/19/20 19:00 07:00 Intake Total 640 ml 40 ml Output Total 650 ml 600 ml Balance -10 ml -560 ml IV Total 500 ml Tube Feeding 140 ml 40 ml Output Urine Total 600 ml 500 ml Stool Total 50 ml 100 ml Laboratory Tests 01/18/20 12:56: POC Whole Blood Glucose [Pending] 01/18/20 14:09: POC Whole Blood Glucose 110H 01/18/20 17:05: POC Whole Blood Glucose 89 01/18/20 23:35: POC Whole Blood Glucose 88 01/19/20 05:00: White Blood Count 6.6, Red Blood Count 2.78L, Hemoglobin 8.0L, Hematocrit 25.1L, Mean Corpuscular Volume 90, Mean Corpuscular Hemoglobin 28.6, Mean Corpuscular Hemoglobin Concent 31.8L, Red Cell Distribution Width 21.1H, Platelet Count 80L, Mean Platelet Volume 8.3, Neutrophils (%) (Auto) , Lymphocytes (%) (Auto) , Monocytes (%) (Auto) , Eosinophils (%) (Auto) , Basophils (%) (Auto) , Neutrophils % (Manual) [Pending], Lymphocytes % (Manual) [Pending], Platelet Estimate [Pending], Platelet Morphology [Pending], Sodium Level 141, Potassium Level 3.8, Chloride Level 110H, Carbon Dioxide Level 19L, Anion Gap 12, Blood Urea Nitrogen 14, Creatinine 1.2, Estimat Glomerular Filtration Rate > 60, Glucose Level 106, Uric Acid 4.1, Calcium Level 8.0L, Phosphorus Level 3.7, Magnesium Level 1.5L, Total Bilirubin 0.4, Aspartate Amino Transf (AST/SGOT) 39H , Alanine Aminotransferase (ALT/SGPT) 14, Alkaline Phosphatase 126H, C-Reactive Protein, Quantitative 12.3H, Pro-B-Type Natriuretic Peptide 3412H, Total Protein 5.1L, Albumin 2.0L, Globulin 3.1, Albumin/Globulin Ratio 0.6L 01/19/20 07:15: POC Whole Blood Glucose 95 Height (Feet): 6 Height (Inches): 0.00 Weight (Pounds): 150 General Appearance: no apparent distress EENT: normal ENT inspection Neck: supple Cardiovascular: normal rate Respiratory/Chest: decreased breath sounds Abdomen: non tender, hypoactive bowel sounds Extremities: non-tender Assessment/Plan Status: unchanged Assessment/Plan: AMS dementia Anemia DM hyper CA elevated AST low albumin COPD RI HTN extubated NGTF for now swallow eval >> failed>>> bioethic consult for PEG on reglan GTF Glucerna 1.5>> on hold for MRI fu nephrology and cardiology recs fu stool ob>>> neg bowel regimen cbc in am fu MRI Paluino Bueno MD Jan 19, 2020 08:20
--- NOTE | 2020-01-19 08:23 | General Progress Note ---
Subjective ROS Limited/Unobtainable: No Allergies: Coded Allergies: No Known Allergies (Unverified , 03/18/19) Objective Last 24 Hour Vital Signs Date Time Temp Pulse Resp B/P (MAP) Pulse Ox O2 Delivery O2 Flow Rate FiO2 01/19/20 08:13 94 Room Air 21 01/19/20 08:12 97 16 94 Room Air 21 01/19/20 04:00 97.5 113 18 140/80 (100) 98 01/19/20 04:00 113 01/19/20 00:00 97.4 105 20 148/82 (104) 98 01/19/20 00:00 113 01/18/20 21:00 Room Air 01/18/20 20:41 96 Room Air 21 01/18/20 20:41 105 20 97 Room Air 21 01/18/20 20:00 97.6 116 23 129/74 (92) 95 01/18/20 20:00 119 01/18/20 16:00 98.1 107 22 145/81 (102) 97 01/18/20 16:00 119 01/18/20 12:35 90 20 96 Room Air 21 01/18/20 12:35 96 Room Air 21 01/18/20 12:00 108 01/18/20 12:00 97.8 99 21 135/70 (91) 96 01/18/20 09:00 Room Air Intake and Output 01/18/20 01/19/20 19:00 07:00 Intake Total 640 ml 40 ml Output Total 650 ml 600 ml Balance -10 ml -560 ml IV Total 500 ml Tube Feeding 140 ml 40 ml Output Urine Total 600 ml 500 ml Stool Total 50 ml 100 ml Laboratory Tests 01/18/20 12:56: POC Whole Blood Glucose [Pending] 01/18/20 14:09: POC Whole Blood Glucose 110H 01/18/20 17:05: POC Whole Blood Glucose 89 01/18/20 23:35: POC Whole Blood Glucose 88 01/19/20 05:00: White Blood Count 6.6, Red Blood Count 2.78L, Hemoglobin 8.0L, Hematocrit 25.1L, Mean Corpuscular Volume 90, Mean Corpuscular Hemoglobin 28.6, Mean Corpuscular Hemoglobin Concent 31.8L, Red Cell Distribution Width 21.1H, Platelet Count 80L, Mean Platelet Volume 8.3, Neutrophils (%) (Auto) , Lymphocytes (%) (Auto) , Monocytes (%) (Auto) , Eosinophils (%) (Auto) , Basophils (%) (Auto) , Neutrophils % (Manual) [Pending], Lymphocytes % (Manual) [Pending], Platelet Estimate [Pending], Platelet Morphology [Pending], Sodium Level 141, Potassium Level 3.8, Chloride Level 110H, Carbon Dioxide Level 19L, Anion Gap 12, Blood Urea Nitrogen 14, Creatinine 1.2, Estimat Glomerular Filtration Rate > 60, Glucose Level 106, Uric Acid 4.1, Calcium Level 8.0L, Phosphorus Level 3.7, Magnesium Level 1.5L, Total Bilirubin 0.4, Aspartate Amino Transf (AST/SGOT) 39H , Alanine Aminotransferase (ALT/SGPT) 14, Alkaline Phosphatase 126H, C-Reactive Protein, Quantitative 12.3H, Pro-B-Type Natriuretic Peptide 3412H, Total Protein 5.1L, Albumin 2.0L, Globulin 3.1, Albumin/Globulin Ratio 0.6L 01/19/20 07:15: POC Whole Blood Glucose 95 Height (Feet): 6 Height (Inches): 0.00 Weight (Pounds): 150 General Appearance: lethargic EENT: normal ENT inspection Neck: supple Cardiovascular: normal rate Respiratory/Chest: decreased breath sounds Abdomen: hypoactive bowel sounds Extremities: non-tender Assessment/Plan Status: unchanged Assessment/Plan: AMS dementia Anemia DM hyper CA elevated AST low albumin COPD RI HTN extubated NGTF for now swallow eval >> failed>>> bioethic consult for PEG on reglan GTF Glucerna 1.5>> on hold for MRI fu nephrology and cardiology recs fu stool ob>>> neg bowel regimen cbc in am CT reviewed>> pelvic mass with extensive mets plan Hospice vs PEG fu bioethics Paulino Bueno MD Jan 19, 2020 08:23
--- NOTE | 2020-01-19 09:23 | Infectious Diseases Prog Note ---
Assessment/Plan Assessment: Shock- likely combination septic and metabolic derangements- SP Probable UTI -01/10 u/a wbc 60-80, nit neg, leuk +3; ucx Neg -Bcx NTD Probable PNA -01/12 CXR: No significant change in bilateral patchy pulmondary opacities, concerning for pneumonia versus edemaq. Small bilateral pleural effusions. -01/10 CXR: Bilateral interstitial and airspace infiltrates versus edema persists. sp cx MRSA (S Vancomycin, bactrim, tetracycline) COVID19 neg -01/04 rapid COVID PCR neg x1 influenza PCR neg CXR: Mild interstitial vascular prominence. No focal infiltrate or consolidation. Acute resp failure- 2ry to vol overload and metabolic acidosis- on VM now 01/10 s- sp intubation 01/10> extubated 01/12 Low grade fever- SP No leukocytosis> pancytopenia -u/a neg, ucx neg Tachycardia, SP-2 ry to severe dehydration- no evidence of infection AVIS,worsened- now improving Hypernatremia>Hyponatremia R>L hydronephrosis Pancreatic lesions - Abd CT: Large pelvic mass as described involving the prostate, bladder, jenni inal vesicles, presumably representing prostatic malignancy Evidence of disseminated malignancy, with extensive ly mphadenopathy of and evidence of diffuse osseous metastases Severe right and moderate left hydronephrosis and bilateral hydroureter, due to ureteral obstruction by the above mas -Abd US: Bilateral right greater than left hydronephrosis, increased since prior study of 03/20/2019. Etiology not demonstrated. Empty bladder with a Mathew catheter. 3 hypoechoic lesions within the pancreatic head and body, each measuring about 5 mm. Appearance nonspecific. Bilateral pleural effusions. Echogenic liver, consistent with hepatocellular disease. Surface likely nodularity raises concern for cirrhosis. Gallbladder sludge. Negative for dilated bile ducts. Probable nonobstructive left intrarenal calculi. Multiple hepatic cysts Acute on chronic encephalopathy -CT head: 1. Markedly limited, near nondiagnostic evaluation due to motion artifact. Grossly, age-related changes and small vessel disease of aging are noted. Again grossly, no acute intracranial pathology is detected. If there is a high degree of concern or if there is concern for subtle abnormalities, magnetic resonance imaging of the brain with diffusion-weighted sequences should be performed, due to the markedly limited nature of the current study. Close clinical correlation is necessary. HTN COPD DM2 paraplegia Dementia non verbal MD resident (elan mora) Plan: - DC IV Vancomycin #7/7 for MRSA PNA -01/16 SP Cefepime #4 -01/13 SP ZOsyn #4 -01/06 SP Ceftriaxone #2 -01/04 Sp IV Vancomycin x1, Cefepime x1 -f/u cx -Monitor CBC/CMP, temperatures -Renal, cards f/u -aspiration precautions Thank you for consulting [facility]. Will continue to follow along with you. Discussed with RN. Subjective Allergies: Coded Allergies: No Known Allergies (Unverified , 03/18/19) afebrile no acute event Objective Last 24 Hour Vital Signs Date Time Temp Pulse Resp B/P (MAP) Pulse Ox O2 Delivery O2 Flow Rate FiO2 01/19/20 08:13 94 Room Air 21 01/19/20 08:12 97 16 94 Room Air 21 01/19/20 08:00 98.1 115 16 146/88 (107) 96 01/19/20 04:00 97.5 113 18 140/80 (100) 98 01/19/20 04:00 113 01/19/20 00:00 97.4 105 20 148/82 (104) 98 01/19/20 00:00 113 01/18/20 21:00 Room Air 01/18/20 20:41 96 Room Air 21 01/18/20 20:41 105 20 97 Room Air 21 01/18/20 20:00 97.6 116 23 129/74 (92) 95 01/18/20 20:00 119 01/18/20 16:00 98.1 107 22 145/81 (102) 97 01/18/20 16:00 119 01/18/20 12:35 90 20 96 Room Air 21 01/18/20 12:35 96 Room Air 21 01/18/20 12:00 108 01/18/20 12:00 97.8 99 21 135/70 (91) 96 Height (Feet): 6 Height (Inches): 0.00 Weight (Pounds): 150 HEENT: anicteric Respiratory/Chest: no respiratory distress Cardiovascular: regularly irregular Abdomen: non distended Laboratory Tests Test 01/18/20 12:56 01/18/20 14:09 01/18/20 17:05 01/18/20 23:35 POC Whole Blood Glucose Pending 110 MG/DL (74-106) H 89 MG/DL (74-106) 88 MG/DL (74-106) Test 01/19/20 05:00 01/19/20 07:15 White Blood Count 6.6 K/UL (4.8-10.8) Red Blood Count 2.78 M/UL (4.70-6.10) L Hemoglobin 8.0 G/DL (14.2-18.0) L Hematocrit 25.1 % (42.0-52.0) L Mean Corpuscular Volume 90 FL (80-99) Mean Corpuscular Hemoglobin 28.6 PG (27.0-31.0) Mean Corpuscular Hemoglobin Concent 31.8 G/DL (32.0-36.0) L Red Cell Distribution Width 21.1 % (11.6-14.8) H Platelet Count 80 K/UL (150-450) L Mean Platelet Volume 8.3 FL (6.5-10.1) Neutrophils (%) (Auto) % (45.0-75.0) Lymphocytes (%) (Auto) % (20.0-45.0) Monocytes (%) (Auto) % (1.0-10.0) Eosinophils (%) (Auto) % (0.0-3.0) Basophils (%) (Auto) % (0.0-2.0) Neutrophils % (Manual) Pending Lymphocytes % (Manual) Pending Platelet Estimate Pending Platelet Morphology Pending Sodium Level 141 MMOL/L (136-145) Potassium Level 3.8 MMOL/L (3.5-5.1) Chloride Level 110 MMOL/L (98-107) H Carbon Dioxide Level 19 MMOL/L (21-32) L Anion Gap 12 mmol/L (5-15) Blood Urea Nitrogen 14 mg/dL (7-18) Creatinine 1.2 MG/DL (0.55-1.30) Estimat Glomerular Filtration Rate > 60 mL/min (>60) Glucose Level 106 MG/DL (74-106) Uric Acid 4.1 MG/DL (2.6-7.2) Calcium Level 8.0 MG/DL (8.5-10.1) L Phosphorus Level 3.7 MG/DL (2.5-4.9) Magnesium Level 1.5 MG/DL (1.8-2.4) L Total Bilirubin 0.4 MG/DL (0.2-1.0) Aspartate Amino Transf (AST/SGOT) 39 U/L (15-37) H Alanine Aminotransferase (ALT/SGPT) 14 U/L (12-78) Alkaline Phosphatase 126 U/L (46-116) H C-Reactive Protein, Quantitative 12.3 mg/dL (0.00-0.90) H Pro-B-Type Natriuretic Peptide 3412 pg/mL (0-125) H Total Protein 5.1 G/DL (6.4-8.2) L Albumin 2.0 G/DL (3.4-5.0) L Globulin 3.1 g/dL Albumin/Globulin Ratio 0.6 (1.0-2.7) L POC Whole Blood Glucose 95 MG/DL (74-106) Current Medications Medications (Trade) Dose Ordered Sig/Jesse Route PRN Reason Start Time Stop Time Status Last Admin Dose Admin Acetaminophen (Tylenol) 650 mg Q4H PRN ORAL PRNH/TEMP 01/05/20 20:15 02/04/20 20:14 01/12/20 03:10 Albuterol/ Ipratropium (Albuterol/ Ipratropium) 3 ml Q4H PRN HHN Bronchospasm 01/15/20 15:36 01/20/20 15:35 Allopurinol (allopurinoL) 300 mg DAILY NG 01/16/20 09:00 02/06/20 14:14 01/19/20 08:19 Barium Sulfate (Readi-Cat 2) 450 ml NOW PRN ORAL Radiology Procedure 01/18/20 08:15 01/20/20 08:14 Bisacodyl (Dulcolax) 10 mg DAILY PRN RECTAL Constipation 01/05/20 20:15 04/04/20 20:14 Calcium Gluconate/ Sodium Chloride 50 ml @ 50 mls/hr Q8HR IVPB 01/15/20 14:00 04/12/20 20:59 01/19/20 05:33 Chlorhexidine Gluconate (Navya-Hex 2%) 1 applic DAILY@2000 TOPIC 01/11/20 20:00 04/10/20 19:59 01/18/20 21:08 Dextrose (Dextrose 50%) 25 ml Q30M PRN IV Hypoglycemia 01/05/20 20:15 1/29/21 20:14 Dextrose (Dextrose 50%) 50 ml Q30M PRN IV Hypoglycemia 01/05/20 20:15 04/04/20 20:14 Dextrose/Sodium Chloride 1,000 ml @ 50 mls/hr Q20H IV 01/12/20 12:00 02/11/20 11:59 01/18/20 01:50 Docusate Sodium (Colace) 200 mg DAILY ORAL 01/06/20 09:00 02/05/20 08:59 01/19/20 08:19 Gadobutrol (Gadavist) 7.5 mmol NOW PRN IV Radiology Procedure 01/15/20 13:45 01/19/20 13:44 Iohexol (OMNIPAQUE-300 100ml) 100 ml NOW PRN INJ Radiology Procedure 01/18/20 08:15 01/20/20 08:14 Linaclotide (Linzess) 290 mcg BEFORE BREAKFAST ORAL 01/10/20 06:30 04/09/20 06:29 01/19/20 05:33 Magnesium Sulfate 100 ml @ 100 mls/hr Q1H IVPB 01/19/20 08:30 01/19/20 10:29 01/19/20 08:19 Metoclopramide HCl (Reglan) 10 mg Q6H IVP 01/16/20 10:45 02/15/20 10:44 01/19/20 05:33 Metoclopramide HCl (Reglan) 10 mg Q6H PRN IVP Nausea & Vomiting 01/16/20 13:00 02/15/20 12:59 Midodrine (Pro-Amatine) 10 mg Q8HR ORAL 01/15/20 14:00 04/13/20 17:59 01/17/20 21:01 Ondansetron HCl (Zofran) 4 mg Q6H PRN IVP Nausea & Vomiting 01/10/20 06:30 02/09/20 06:29 Oxymetazoline HCl (Afrin Nasal [place]) 2 spray Q12HR PRN NASAL dry nasal passage 01/11/20 08:00 04/10/20 07:59 Pantoprazole (Protonix) 40 mg EVERY 12 HOURS IVP 01/05/20 21:00 02/04/20 20:59 01/19/20 08:20 Polyethylene Glycol (Miralax) 17 gm BEDTIME NG 01/11/20 21:00 02/08/20 20:59 01/18/20 21:08 Sennosides (Senokot) 8.6 mg QHS NG 01/11/20 21:00 02/04/20 20:59 01/18/20 21:07 Vancomycin HCl (Vanco pharmacy to dose) 1 ea DAILY PRN MISC Per rx protocol 01/12/20 14:45 02/11/20 14:44 Vancomycin HCl 750 mg/Sodium Chloride 275 ml @ 183.333 mls/hr Q12H IVPB 01/19/20 10:00 01/24/20 09:59 Leon Recinos MD Jan 19, 2020 09:23
[2020-01-19] MEDS ORDERED: Vancomycin 750mg/NS 275ml IVPB SCH ×2 (10:00)
--- NOTE | 2020-01-19 11:23 | Nephrology Progress Note ---
Assessment/Plan Problem List: (1) ARF (acute renal failure) (2) Hypernatremia (3) Hypovolemic shock (4) Altered level of consciousness (5) Hypercalcemia (6) Hyperuricemia Assessment Acute renal failure Possible underlying chronic kidney failure Severe dehydration Hypernatremia indicative of severe water deficit Severe hyperuricemia, partly due to dehydration and renal failure Acute metabolic and toxic encephalopathy Mild, malnutrition Anemia Lactic acid, possible sepsis Hypercalcemia Plan January 18: Labs reviewed. IV fluid discontinued. IV calcium dose decreased. Midodrine dose decreased. Reglan and Protonix changed to GT route. Vitamin D initiated. Continue to monitor renal parameters and calcium level. January 17: Labs reviewed. Abnormal electrolyte addressed. Continue per consultants. January 16: Patient now in telemetry. Labs pending. Continue to monitor renal parameters. Continue per consultants. January 15: Still in ICU. Doing well post extubation. Renal parameters improving. Not requiring any more dialysis treatment after the first dialysis treatment. Medications reviewed. Continue per consultants. January 14: Remains in ICU. Tolerating extubation. Labs reviewed. Abnormal electrolytes addressed. Serum creatinine lowering. Continue per current management. Stop Phos binders. Increase calcium IV. January 13: In ICU. Now extubated. Only dialyzed once. Urine output maintained. Serum creatinine down to 2.5. Patient has NG tube. Continue to monitor renal parameters. Continue per consultants. Abnormal electrolytes addressed. January 12: Remains in ICU. Intubated. Transfused yesterday. Abnormal electrolytes addressed. Dialyzed once January 10. Serum creatinine stable. Will adjust IV fluid. Monitor renal parameters. Dialysis as needed. Calcium gluconate IV ordered. Ionized calcium level ordered with tomorrow's labs. January 11: Patient in ICU. Intubated. On Levophed. Hemoglobin low. Due for transfusion. Electrolyte abnormalities noted and addressed. Patient was dialyzed yesterday. Will check lab tomorrow. Dialysis as needed. Discussed with SELIN Srivastava. January 10: Patient is doing poorly. Blood pressure low. ABG abnormal with metabolic acidosis. IV sodium bicarb given. Serum creatinine reno. Patient has acute renal failure. Nontunneled dialysis catheter replacement ordered.. Patient need life saving dialysis treatment SRINIVAS. January 09: Labs reviewed. IV D5 and a half with sodium bicarb initiated. Serum creatinine higher. Continue to monitor renal parameters. NG feeding was changed to Nepro. Patient remains full code. Poor prognosis. January 08: Labs reviewed. IV D5W discontinued. 500 cc 3% saline ordered. NG tube for feeding and for medications. Allopurinol dose increased. Continue to monitor renal parameters serum calcium and phosphorus. January 07: Labs reviewed. Serum calcium remains elevated. Uric acid still elevated. Will give pamidronate 60 mg IV piggyback once for hypercalcemia. Continue to monitor renal parameters. Continue D5W 150 cc an hour. Start Bicitra 30 cc p.o. every 6 hours. Add allopurinol D5W IV hydration Albumin bolus N.p.o. until able to take p.o. Antibiotics Monitor renal parameters monitor calcium, monitor uric acid Subjective ROS Limited/Unobtainable: No Constitutional: Reports: malaise Objective Objective Last 24 Hour Vital Signs Date Time Temp Pulse Resp B/P (MAP) Pulse Ox O2 Delivery O2 Flow Rate FiO2 01/19/20 09:00 Room Air 01/19/20 08:13 94 Room Air 01/19/20 08:12 97 16 94 Room Air 01/19/20 08:00 98.1 115 16 146/88 (107) 96 01/19/20 08:00 115 01/19/20 04:00 97.5 113 18 140/80 (100) 98 01/19/20 04:00 113 01/19/20 00:00 97.4 105 20 148/82 (104) 98 01/19/20 00:00 113 01/18/20 21:00 Room Air 01/18/20 20:41 96 Room Air 01/18/20 20:41 105 20 97 Room Air 21 01/18/20 20:00 97.6 116 23 129/74 (92) 95 01/18/20 20:00 119 01/18/20 16:00 98.1 107 22 145/81 (102) 97 01/18/20 16:00 119 01/18/20 12:35 90 20 96 Room Air 21 01/18/20 12:35 96 Room Air 01/18/20 12:00 108 01/18/20 12:00 97.8 99 21 135/70 (91) 96 Intake and Output 01/18/20 01/19/20 19:00 07:00 Intake Total 640 ml 40 ml Output Total 650 ml 600 ml Balance -10 ml -560 ml IV Total 500 ml Tube Feeding 140 ml 40 ml Output Urine Total 600 ml 500 ml Stool Total 50 ml 100 ml Laboratory Tests 01/18/20 12:56: POC Whole Blood Glucose [Pending] 01/18/20 14:09: POC Whole Blood Glucose 110H 01/18/20 17:05: POC Whole Blood Glucose 89 01/18/20 23:35: POC Whole Blood Glucose 88 01/19/20 05:00: White Blood Count 6.6, Red Blood Count 2.78L, Hemoglobin 8.0L, Hematocrit 25.1L, Mean Corpuscular Volume 90, Mean Corpuscular Hemoglobin 28.6, Mean Corpuscular Hemoglobin Concent 31.8L, Red Cell Distribution Width 21.1H, Platelet Count 80L, Mean Platelet Volume 8.3, Neutrophils (%) (Auto) , Lymphocytes (%) (Auto) , Monocytes (%) (Auto) , Eosinophils (%) (Auto) , Basophils (%) (Auto) , Differential Total Cells Counted 100, Neutrophils % (Manual) 78H, Lymphocytes % (Manual) 15L, Monocytes % (Manual) 4, Eosinophils % (Manual) 0, Basophils % (Man ual) 0, Myelocytes % 1H, Band Neutrophils 2, Nucleated Red Blood Cells 3, Platelet Estimate DecreasedL, Platelet Morphology Normal, Anisocytosis 2+, Sodium Level 141, Potassium Level 3.8, Chloride Level 110H, Carbon Dioxide Level 19L, Anion Gap 12, Blood Urea Nitrogen 14, Creatinine 1.2, Estimat Glomerular Filtration Rate > 60, Glucose Level 106, Uric Acid 4.1, Calcium Level 8.0L, Phosphorus Level 3.7, Magnesium Level 1.5L, Total Bilirubin 0.4, Aspartate Amino Transf (AST/SGOT) 39H, Alanine Aminotransferase (ALT/SGPT) 14, Alkaline Phosphatase 126H, C-Reactive Protein, Quantitative 12.3H, Pro-B-Type Natriuretic Peptide 3412H, Total Protein 5.1L, Albumin 2.0L, Globulin 3.1, Albumin/Globulin Ratio 0.6L 01/19/20 07:15: POC Whole Blood Glucose 95 Height (Feet): 6 Height (Inches): 0.00 Weight (Pounds): 150 General Appearance: no apparent distress EENT: other - Has NG tube tube Cardiovascular: tachycardia Respiratory/Chest: decreased breath sounds Abdomen: soft Dhiraj Biswas MD Jan 19, 2020 11:23
--- NOTE | 2020-01-19 11:40 | Pulmonology Progress Note ---
Subjective ROS Limited/Unobtainable: No Interval Events: On RA; NGT in place Constitutional: Reports: no symptoms HEENT: Repors: no symptoms Respiratory: Reports: no symptoms Cardiovascular: Reports: no symptoms Gastrointestinal/Abdominal: Reports: no symptoms Genitourinary: Reports: no symptoms Allergies: Coded Allergies: No Known Allergies (Unverified , 03/18/19) All Systems: reviewed and negative except above Objective Last 24 Hour Vital Signs Date Time Temp Pulse Resp B/P (MAP) Pulse Ox O2 Delivery O2 Flow Rate FiO2 01/19/20 09:00 Room Air 01/19/20 08:13 94 Room Air 21 01/19/20 08:12 97 16 94 Room Air 21 01/19/20 08:00 98.1 115 16 146/88 (107) 96 01/19/20 08:00 115 01/19/20 04:00 97.5 113 18 140/80 (100) 98 01/19/20 04:00 113 01/19/20 00:00 97.4 105 20 148/82 (104) 98 01/19/20 00:00 113 01/18/20 21:00 Room Air 01/18/20 20:41 96 Room Air 21 01/18/20 20:41 105 20 97 Room Air 21 01/18/20 20:00 97.6 116 23 129/74 (92) 95 01/18/20 20:00 119 01/18/20 16:00 98.1 107 22 145/81 (102) 97 01/18/20 16:00 119 01/18/20 12:35 90 20 96 Room Air 21 01/18/20 12:35 96 Room Air 21 01/18/20 12:00 108 01/18/20 12:00 97.8 99 21 135/70 (91) 96 Intake and Output 01/18/20 01/19/20 19:00 07:00 Intake Total 640 ml 40 ml Output Total 650 ml 600 ml Balance -10 ml -560 ml IV Total 500 ml Tube Feeding 140 ml 40 ml Output Urine Total 600 ml 500 ml Stool Total 50 ml 100 ml General Appearance: no acute distress HEENT: normocephalic Respiratory: chest wall non-tender, lungs clear Cardiovascular: normal peripheral pulses, normal rate Abdomen: normal bowel sounds Laboratory Tests 01/18/20 12:56: POC Whole Blood Glucose [Pending] 01/18/20 14:09: POC Whole Blood Glucose 110H 01/18/20 17:05: POC Whole Blood Glucose 89 01/18/20 23:35: POC Whole Blood Glucose 88 01/19/20 05:00: White Blood Count 6.6, Red Blood Count 2.78L, Hemoglobin 8.0L, Hematocrit 25.1L, Mean Corpuscular Volume 90, Mean Corpuscular Hemoglobin 28.6, Mean Corpuscular Hemoglobin Concent 31.8L, Red Cell Distribution Width 21.1H, Platelet Count 80L, Mean Platelet Volume 8.3, Neutrophils (%) (Auto) , Lymphocytes (%) (Auto) , Monocytes (%) (Auto) , Eosinophils (%) (Auto) , Basophils (%) (Auto) , Differential Total Cells Counted 100, Neutrophils % (Manual) 78H, Lymphocytes % (Manual) 15L, Monocytes % (Manual) 4, Eosinophils % (Manual) 0, Basophils % (Manual) 0, Myelocytes % 1H, Band Neutrophils 2, Nucleated Red Blood Cells 3, Platelet Estimate DecreasedL, Platelet Morphology Normal, Anisocytosis 2+, Sodium Level 141, Potassium Level 3.8, Chloride Level 110H, Carbon Dioxide Level 19L, Anion Gap 12, Blood Urea Nitrogen 14, Creatinine 1.2, Estimat Glomerular Filtration Rate > 60, Glucose Level 106, Uric Acid 4.1, Calcium Level 8.0L, Phosphorus Level 3.7, Magnesium Level 1.5L, Total Bilirubin 0.4, Aspartate Amino Transf (AST/SGOT) 39H, Alanine Aminotransferase (ALT/SGPT) 14, Alkaline Phosphatase 126H, C-Reactive Protein, Quantitative 12.3H, Pro-B-Type Natriuretic Peptide 3412H, Total Protein 5.1L, Albumin 2.0L, Globulin 3.1, Albumin/Globulin Ratio 0.6L 01/19/20 07:15: POC Whole Blood Glucose 95 Current Medications Medications (Trade) Dose Ordered Sig/Jesse Route PRN Reason Start Time Stop Time Status Last Admin Dose Admin Acetaminophen (Tylenol) 650 mg Q4H PRN ORAL PRNH/TEMP 01/05/20 20:15 02/04/20 20:14 01/12/20 03:10 Albuterol/ Ipratropium (Albuterol/ Ipratropium) 3 ml Q4H PRN HHN Bronchospasm 01/15/20 15:36 01/20/20 15:35 Allopurinol (allopurinoL) 300 mg DAILY NG 01/16/20 09:00 02/06/20 14:14 01/19/20 08:19 Barium Sulfate (Readi-Cat 2) 450 ml NOW PRN ORAL Radiology Procedure 01/18/20 08:15 01/20/20 08:14 Bisacodyl (Dulcolax) 10 mg DAILY PRN RECTAL Constipation 01/05/20 20:15 04/04/20 20:14 Calcium Gluconate/ Sodium Chloride 50 ml @ 50 mls/hr Q12HR IVPB 01/19/20 21:00 04/12/20 20:59 Chlorhexidine Gluconate (Navya-Hex 2%) 1 applic DAILY@2000 TOPIC 01/11/20 20:00 04/10/20 19:59 01/18/20 21:08 Dextrose (Dextrose 50%) 25 ml Q30M PRN IV Hypoglycemia 01/05/20 20:15 04/04/20 20:14 Dextrose (Dextrose 50%) 50 ml Q30M PRN IV Hypoglycemia 01/05/20 20:15 04/04/20 20:14 Docusate Sodium (Colace) 200 mg DAILY ORAL 01/06/20 09:00 02/05/20 08:59 01/19/20 08:19 Famotidine (Pepcid) 20 mg BID GT 01/19/20 18:00 04/18/20 17:59 Gadobutrol (Gadavist) 7.5 mmol NOW PRN IV Radiology Procedure 01/15/20 13:45 01/19/20 13:44 Iohexol (OMNIPAQUE-300 100ml) 100 ml NOW PRN INJ Radiology Procedure 01/18/20 08:15 01/20/20 08:14 Linaclotide (Linzess) 290 mcg BEFORE BREAKFAST ORAL 01/10/20 06:30 04/09/20 06:29 01/19/20 05:33 Metoclopramide HCl (Reglan) 10 mg EVERY 6 HOURS NG 01/19/20 12:00 02/18/20 11:59 Metoclopramide HCl (Reglan) 10 mg Q6H PRN IVP Nausea & Vomiting 01/16/20 13:00 02/15/20 12:59 Midodrine (Pro-Amatine) 2.5 mg Q8HR ORAL 01/19/20 14:00 04/13/20 17:59 Ondansetron HCl (Zofran) 4 mg Q6H PRN IVP Nausea & Vomiting 01/10/20 06:30 02/09/20 06:29 Oxymetazoline HCl (Afrin Nasal [place]) 2 spray Q12HR PRN NASAL dry nasal passage 01/11/20 08:00 04/10/20 07:59 Polyethylene Glycol (Miralax) 17 gm BEDTIME NG 01/11/20 21:00 02/08/20 20:59 01/18/20 21:08 Sennosides (Senokot) 8.6 mg QHS NG 01/11/20 21:00 02/04/20 20:59 01/18/20 21:07 Vitamin D (Vitamin D) 3,000 intlu DAILY GT 01/19/20 12:00 02/18/20 11:59 Assessment/Plan Assessment/Plan IMPRESSION: 1. Severe metabolic acidosis. Corrected 2. Respiratory failure; now extubated; now on RA 3. Diarrhea. 4. Acute renal failure. Nephrology following; creatinine now 1.3 5. Anemia DISCUSSION: Doing well from pulmonary standpoint For CT abd today Needs PEG Continue antibiotics, IV fluid hydration. Daxa Infante Omar Syed MD Jan 19, 2020 11:40
[2020-01-19 12:00] VITALS: BP 132/75
[2020-01-19] MEDS: Metoclopramide 10mg/10ml Liq NG SCH ×3 (13:00→23:32)
[2020-01-19] MEDS: Vitamin D 1000 IU Tab GT SCH (13:00)
--- NOTE | 2020-01-19 13:05 | Cardiac Electrophysiology PN ---
Assessment/Plan Assessment/Plan 1. Altered mental status due to severe dehydration in view of sodium of 160 and acute renal failure. On IV fluids and IV antibiotics. Ruled out for MD. 2. Hypotension. Off BP meds (at the [facility], the patient was on amlodipine and metoprolol) On Midodrine 10 tid 3. History of CVA, Plavix DCed in view of hematuria. 4. Advanced dementia. 5. Diabetes. 6. Acute renal failure. Cr 4.2. Had HD once only on 01/11/20. No more HD needed and Cr 1.2 7. Hematuria 8. Anemia with Hb 5.8 and coffee ground emesis. FU Dr Bueno 9. Shock liver with increase AST>2000 10. Pancreatic mass x3. CT abdomen and pelvis showed Large pelvic mass involving the prostate, bladder presumably representing prostatic malignancy 11. Dysphagia, NGT feeding. PEG pending ethics eval KARLO RN Subjective Subjective In SR in restraints Has NGT in. Failed swallow eval. Mittens on S/P CT abdomen and pelvis Awaiting Ethics for PEG placement Objective Last 24 Hour Vital Signs Date Time Temp Pulse Resp B/P (MAP) Pulse Ox O2 Delivery O2 Flow Rate FiO2 01/19/20 09:00 Room Air 01/19/20 08:13 94 Room Air 21 01/19/20 08:12 97 16 94 Room Air 21 01/19/20 08:00 98.1 115 16 146/88 (107) 96 01/19/20 08:00 115 01/19/20 04:00 97.5 113 18 140/80 (100) 98 01/19/20 04:00 113 01/19/20 00:00 97.4 105 20 148/82 (104) 98 01/19/20 00:00 113 01/18/20 21:00 Room Air 01/18/20 20:41 96 Room Air 21 01/18/20 20:41 105 20 97 Room Air 21 01/18/20 20:00 97.6 116 23 129/74 (92) 95 01/18/20 20:00 119 01/18/20 16:00 98.1 107 22 145/81 (102) 97 01/18/20 16:00 119 Intake and Output 01/18/20 01/19/20 19:00 07:00 Intake Total 640 ml 40 ml Output Total 650 ml 600 ml Balance -10 ml -560 ml IV Total 500 ml Tube Feeding 140 ml 40 ml Output Urine Total 600 ml 500 ml Stool Total 50 ml 100 ml Laboratory Tests Test 01/18/20 14:09 01/18/20 17:05 01/18/20 23:35 01/19/20 05:00 POC Whole Blood Glucose 110 MG/DL (74-106) H 89 MG/DL (74-106) 88 MG/DL (74-106) White Blood Count 6.6 K/UL (4.8-10.8) Red Blood Count 2.78 M/UL (4.70-6.10) L Hemoglobin 8.0 G/DL (14.2-18.0) L Hematocrit 25.1 % (42.0-52.0) L Mean Corpuscular Volume 90 FL (80-99) Mean Corpuscular Hemoglobin 28.6 PG (27.0-31.0) Mean Corpuscular Hemoglobin Concent 31.8 G/DL (32.0-36.0) L Red Cell Distribution Width 21.1 % (11.6-14.8) H Platelet Count 80 K/UL (150-450) L Mean Platelet Volume 8.3 FL (6.5-10.1) Neutrophils (%) (Auto) % (45.0-75.0) Lymphocytes (%) (Auto) % (20.0-45.0) Monocytes (%) (Auto) % (1.0-10.0) Eosinophils (%) (Auto) % (0.0-3.0) Basophils (%) (Auto) % (0.0-2.0) Differential Total Cells Counted 100 Neutrophils % (Manual) 78 % (45-75) H Lymphocytes % (Manual) 15 % (20-45) L Monocytes % (Manual) 4 % (1-10) Eosinophils % (Manual) 0 % (0-3) Basophils % (Manual) 0 % (0-2) Myelocytes % 1 % (0-0) H Band Neutrophils 2 % (0-8) Nucleated Red Blood Cells 3 /100 WBC Platelet Estimate Decreased L Platelet Morphology Normal Anisocytosis 2+ Sodium Level 141 MMOL/L (136-145) Potassium Level 3.8 MMOL/L (3.5-5.1) Chloride Level 110 MMOL/L (98-107) H Carbon Dioxide Level 19 MMOL/L (21-32) L Anion Gap 12 mmol/L (5-15) Blood Urea Nitrogen 14 mg/dL (7-18) Creatinine 1.2 MG/DL (0.55-1.30) Estimat Glomerular Filtration Rate > 60 mL/min (>60) Glucose Level 106 MG/DL (74-106) Uric Acid 4.1 MG/DL (2.6-7.2) Calcium Level 8.0 MG/DL (8.5-10.1) L Phosphorus Level 3.7 MG/DL (2.5-4.9) Magnesium Level 1.5 MG/DL (1.8-2.4) L Total Bilirubin 0.4 MG/DL (0.2-1.0) Aspartate Amino Transf (AST/SGOT) 39 U/L (15-37) H Alanine Aminotransferase (ALT/SGPT) 14 U/L (12-78) Alkaline Phosphatase 126 U/L (46-116) H C-Reactive Protein, Quantitative 12.3 mg/dL (0.00-0.90) H Pro-B-Type Natriuretic Peptide 3412 pg/mL (0-125) H Total Protein 5.1 G/DL (6.4-8.2) L Albumin 2.0 G/DL (3.4-5.0) L Globulin 3.1 g/dL Albumin/Globulin Ratio 0.6 (1.0-2.7) L Test 01/19/20 07:15 POC Whole Blood Glucose 95 MG/DL (74-106) Objective HEAD AND NECK: No JVD.NGT in place LUNGS: Coarse rhonchi. CARDIOVASCULAR: Regular S1 and S2 with no gallop. ABDOMEN: Soft. EXTREMITIES: No pitting edema. Kevin Lopez MD Jan 19, 2020 13:05
--- NOTE | 2020-01-19 14:29 | Surgery Progress Note ---
Surgery Progress Note Subjective Procedure Performed Right femoral temporary hemodialysis catheter insertion Additional Comments CT reviewed no acute events labs noted exam stable comfortable no n/v Objective Last 24 Hour Vital Signs Date Time Temp Pulse Resp B/P (MAP) Pulse Ox O2 Delivery O2 Flow Rate FiO2 01/19/20 12:00 97.7 108 20 132/75 (94) 90 01/19/20 12:00 108 01/19/20 09:00 Room Air 01/19/20 08:13 94 Room Air 21 01/19/20 08:12 97 16 94 Room Air 21 01/19/20 08:00 98.1 115 16 146/88 (107) 96 01/19/20 08:00 115 01/19/20 04:00 97.5 113 18 140/80 (100) 98 01/19/20 04:00 113 01/19/20 00:00 97.4 105 20 148/82 (104) 98 01/19/20 00:00 113 01/18/20 21:00 Room Air 01/18/20 20:41 96 Room Air 01/18/20 20:41 105 20 97 Room Air 21 01/18/20 20:00 97.6 116 23 129/74 (92) 95 01/18/20 20:00 119 01/18/20 16:00 98.1 107 22 145/81 (102) 97 01/18/20 16:00 119 I&O Intake and Output 01/18/20 01/19/20 19:00 07:00 Intake Total 640 ml 40 ml Output Total 650 ml 600 ml Balance -10 ml -560 ml IV Total 500 ml Tube Feeding 140 ml 40 ml Output Urine Total 600 ml 500 ml Stool Total 50 ml 100 ml Cardiovascular: RSR Respiratory: decreased breath sounds Abdomen: non-tender, present bowel sounds Extremities: no edema, no tenderness, no cyanosis Laboratory Tests Test 01/18/20 17:05 01/18/20 23:35 01/19/20 05:00 01/19/20 07:15 POC Whole Blood Glucose 89 MG/DL (74-106) 88 MG/DL (74-106) 95 MG/DL (74-106) White Blood Count 6.6 K/UL (4.8-10.8) Red Blood Count 2.78 M/UL (4.70-6.10) L Hemoglobin 8.0 G/DL (14.2-18.0) L Hematocrit 25.1 % (42.0-52.0) L Mean Corpuscular Volume 90 FL (80-99) Mean Corpuscular Hemoglobin 28.6 PG (27.0-31.0) Mean Corpuscular Hemoglobin Concent 31.8 G/DL (32.0-36.0) L Red Cell Distribution Width 21.1 % (11.6-14.8) H Platelet Count 80 K/UL (150-450) L Mean Platelet Volume 8.3 FL (6.5-10.1) Neutrophils (%) (Auto) % (45.0-75.0) Lymphocytes (%) (Auto) % (20.0-45.0) Monocytes (%) (Auto) % (1.0-10.0) Eosinophils (%) (Auto) % (0.0-3.0) Basophils (%) (Auto) % (0.0-2.0) Differential Total Cells Counted 100 Neutrophils % (Manual) 78 % (45-75) H Lymphocytes % (Manual) 15 % (20-45) L Monocytes % (Manual) 4 % (1-10) Eosinophils % (Manual) 0 % (0-3) Basophils % (Manual) 0 % (0-2) Myelocytes % 1 % (0-0) H Band Neutrophils 2 % (0-8) Nucleated Red Blood Cells 3 /100 WBC Platelet Estimate Decreased L Platelet Morphology Normal Anisocytosis 2+ Sodium Level 141 MMOL/L (136-145) Potassium Level 3.8 MMOL/L (3.5-5.1) Chloride Level 110 MMOL/L (98-107) H Carbon Dioxide Level 19 MMOL/L (21-32) L Anion Gap 12 mmol/L (5-15) Blood Urea Nitrogen 14 mg/dL (7-18) Creatinine 1.2 MG/DL (0.55-1.30) Estimat Glomerular Filtration Rate > 60 mL/min (>60) Glucose Level 106 MG/DL (74-106) Uric Acid 4.1 MG/DL (2.6-7.2) Calcium Level 8.0 MG/DL (8.5-10.1) L Phosphorus Level 3.7 MG/DL (2.5-4.9) Magnesium Level 1.5 MG/DL (1.8-2.4) L Total Bilirubin 0.4 MG/DL (0.2-1.0) Aspartate Amino Transf (AST/SGOT) 39 U/L (15-37) H Alanine Aminotransferase (ALT/SGPT) 14 U/L (12-78) Alkaline Phosphatase 126 U/L (46-116) H C-Reactive Protein, Quantitative 12.3 mg/dL (0.00-0.90) H Pro-B-Type Natriuretic Peptide 3412 pg/mL (0-125) H Total Protein 5.1 G/DL (6.4-8.2) L Albumin 2.0 G/DL (3.4-5.0) L Globulin 3.1 g/dL Albumin/Globulin Ratio 0.6 (1.0-2.7) L Plan Problems: (1) Altered level of consciousness (2) Hypovolemic shock Assessment & Plan: resuscitation extubated monitor respiratory keep hob elevated supplemental O2 Gallbladder demonstrates sludge. No stones, wall thickening, nor pericholecystic fluid. Patient unable to report Wilson's sign Common bile duct measures 3 mm in diameter. No intrahepatic biliary ductal dilatation. Liver demonstrates coarsened echogenicity and surface nodularity. It demonstrates multiple cysts. Portal vein and hepatic veins are patent. The pancreas demonstrates 3 hypoechoic lesions in the head and body, measuring approximately 5 mm in diameter each. Spleen is unremarkable, poorly visualized. Left kidney measures 11.4 cm in length. Right kidney measures 11.3 cm length. Both kidneys demonstrate normal echogenicity. There is severe right and moderate left hydronephrosis. Echogenic foci are seen in the left renal sinus and collecting system. Bladder is empty, contains a Mathew catheter. Non-aneurysmal abdominal aorta . There are bilateral pleural effusions Impression: Bilateral right greater than left hydronephrosis, increased since prior study of 03/20/2019. Etiology not demonstrated Empty bladder with a Mathew catheter 3 hypoechoic lesions within the pancreatic head and body, each measuring about 5 mm. Appearance nonspecific. Recommend further evaluation with pancreas protocol MRI Bilateral pleural effusions Echogenic liver, consistent with hepatocellular disease. Surface likely nodularity raises concern for cirrhosis Gallbladder sludge. Negative for dilated bile ducts Probable nonobstructive left intrarenal calculi Multiple hepatic cysts (3) Lactic acid acidosis (4) Hypernatremia (5) Paraplegia (6) Anemia Assessment & Plan: no active bleeding noted no large hematoma dressings okay likely related to heme will monitor transfuse prbc with HD trend labs thank you (7) Diabetes (8) Weak (9) HTN (hypertension) (10) ARF (acute renal failure) (11) Hypercalcemia (12) Hyperuricemia (13) Dehydration (14) UTI (urinary tract infection) (15) Failure to thrive in adult Assessment & Plan: patient identified to have DTI on bilateral heels right with 5cm x 4cm area of dti not open no drainage no signs of infection left with 3cm x 2cm. pillow under leg optifoam dressings nutritional optimization will follow no acute surgery DAILY ESTIMATED NEEDS: Needs based on underweight, suspected wt loss, HD, CRITICAL CARE/ 57.6kg 25-33 kcals/kg 3953-0625 total kcals 1.2-2 g protein/kg 69-115 g total protein 25-30 mL/kg 0943-0441 total fluid mLs NUTRITION DIAGNOSIS: *Increased kcal and pro needs r/t underweight status, suspected significant wt loss as evidenced by pt @ 71% IBW w/ BMI 17.2, underweight per guidelines, w/ suspected signficant wt loss of 30lbs/19% in 10 months. * Swallowing difficulty R/T dysphagia, respiratory status as evidenced by s/p NGT insertion (01/08), now NPO, s/p code blue (01/10), orally intubated. CURRENT TF:NPO ENTERAL NUTRITION RECOMMENDATIONS: WHEN HEMODYNAMICALLY STABLE: Nepro @ 40ml/hr x 24 hrs to provide 960ml, 1728kcal, 77g prot, 698ml free water WHEN HEMODYNAMICALLY STABLE AND MEDICALLY APPROPRIATE TO FEED: -> initiate TF @ 5ml/hr x 6hrs, advance slowly 5ml q 4-6 hrs as tolerated to goal rate -> HOB over 30 degrees/ water flush per MD WITHOUT HEMODYNAMIC STABILITY -> If medically appropriate to feed, rec trophic feeding of Nepro @ 5ml/hr x 24 hrs to maintain gut integrity (16) Pelvic mass Assessment & Plan: invasive pelvic mass likely prostate necrotic nodes likely spread recommend colonoscopy given invasion possible to rectum oncology input thank you There is a large pelvic mass which is cephalad to but inseparable from the prostate. This also is inseparable from the posterior wall of the bladder and there appears to be circumferential bladder wall thickening. This mass also appears to involve the seminal vesicles. This measures approximately 8.8 cm transverse by 10 cm craniocaudad by 7.4 cm AP. The periphery of this mass is very lobulated. The mass may also invade the adjacent rectum. There is bilateral iliac chain lymphadenopathy, with nodes measuring up to 3 cm in diameter. Some of these nodes are very low in attenuation indicating that they are necrotic. There is also retroperitoneal lymphadenopathy. There is severe right and moderate left hydronephrosis and bilateral hydroureter. The dilated ureters terminate at the level of the mass. No intrinsic renal parenchymal abnormality. The pancreas is unremarkable. No findings corresponding to the areas of low-attenuation described on prior sonogram are evident. No pancreatic ductal dilatation is evident. The liver demonstrates multiple cysts. The gallbladder, bile ducts, spleen, adrenals are unremarkable. The bones demonstrate diffuse involvement with multiple mixed osteolytic/osteosclerotic lesions, mostly sclerotic component predominating. There is a right groin dialysis catheter in place, tip at the level of the iliac venous confluence. There is a nasogastric tube,, tip in the stomach. There is a Mathew catheter. There is a rectal tube lying outside the patient with the balloon inflated within the inner gluteal fold. There are bilateral pleural effusions. There is compressive atelectasis of most if not all of both lower lobes. 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 Compressive atelectasis of most of not all of both lower lobes Other findings as noted, including multiple liver cysts Lázaro Jenkins Jan 19, 2020 14:29
[2020-01-19 16:00] VITALS: BP 134/79
[2020-01-19 20:00] VITALS: BP 140/78
[2020-01-19] MEDS: Dyna-Hex 2% Top Sol 2oz TOPIC SCH (20:35)
[2020-01-19] MEDS: Miralax 17gm pkt NG SCH (20:37)
[2020-01-19] MEDS: Sennosides 8.6mg tab NG SCH (20:37)
[2020-01-19] MEDS ORDERED: Calcium Gluconate 1gm/50ml 50 ML IVPB SCH (21:00)
--- NOTE | 2020-01-19 21:13 | General Progress Note ---
Subjective ROS Limited/Unobtainable: Yes Allergies: Coded Allergies: No Known Allergies (Unverified , 03/18/19) Objective Last 24 Hour Vital Signs Date Time Temp Pulse Resp B/P (MAP) Pulse Ox O2 Delivery O2 Flow Rate FiO2 01/19/20 20:05 98 Nasal Cannula 2.0 28 01/19/20 20:05 103 18 98 Nasal Cannula 2.0 28 01/19/20 16:00 115 01/19/20 16:00 109 01/19/20 16:00 98.7 107 22 134/79 (97) 96 01/19/20 15:30 25 84 01/19/20 12:00 97.7 108 20 132/75 (94) 90 01/19/20 12:00 108 01/19/20 09:00 Nasal Cannula 2.0 01/19/20 08:13 94 Room Air 21 01/19/20 08:12 97 16 94 Room Air 21 01/19/20 08:00 98.1 115 16 146/88 (107) 96 01/19/20 08:00 115 01/19/20 04:00 97.5 113 18 140/80 (100) 98 01/19/20 04:00 113 01/19/20 00:00 97.4 105 20 148/82 (104) 98 01/19/20 00:00 113 Intake and Output 01/18/20 01/19/20 19:00 07:00 Intake Total 640 ml 40 ml Output Total 650 ml 600 ml Balance -10 ml -560 ml IV Total 500 ml Tube Feeding 140 ml 40 ml Output Urine Total 600 ml 500 ml Stool Total 50 ml 100 ml Laboratory Tests 01/18/20 23:35: POC Whole Blood Glucose 88 01/19/20 05:00: White Blood Count 6.6, Red Blood Count 2.78L, Hemoglobin 8.0L, Hematocrit 25.1L, Mean Corpuscular Volume 90, Mean Corpuscular Hemoglobin 28.6, Mean Corpuscular Hemoglobin Concent 31.8L, Red Cell Distribution Width 21.1H, Platelet Count 80L, Mean Platelet Volume 8.3, Neutrophils (%) (Auto) , Lymphocytes (%) (Auto) , Monocytes (%) (Auto) , Eosinophils (%) (Auto) , Basophils (%) (Auto) , Differential Total Cells Counted 100, Neutrophils % (Manual) 78H, Lymphocytes % (Manual) 15L, Monocytes % (Manual) 4, Eosinophils % (Manual) 0, Basophils % (Manual) 0, Myelocytes % 1H, Band Neutrophils 2, Nucleated Red Blood Cells 3, Platelet Estimate DecreasedL, Platelet Morphology Normal, Anisocytosis 2+, Sodium Level 141, Potassium Level 3.8, Chloride Level 110H, Carbon Dioxide Level 19L, Anion Gap 12, Blood Urea Nitrogen 14, Creatinine 1.2, Estimat Glomerular Filtration Rate > 60, Glucose Level 106, Uric Acid 4.1, Calcium Level 8.0L, Phosphorus Level 3.7, Magnesium Level 1.5L, Total Bilirubin 0.4, Aspartate Amino Transf (AST/SGOT) 39H, Alanine Aminotransferase (ALT/SGPT) 14, Alkaline Phosphatase 126H, C-Reactive Protein, Quantitative 12.3H, Pro-B-Type Natriuretic Peptide 3412H, Total Protein 5.1L, Albumin 2.0L, Globulin 3.1, Albumin/Globulin Ratio 0.6L 01/19/20 07:15: POC Whole Blood Glucose 95 Height (Feet): 6 Height (Inches): 0.00 Weight (Pounds): 150 Assessment/Plan Problem List: (1) Altered level of consciousness ICD Codes: R40.4 - Transient alteration of awareness SNOMED: 0074937 (2) Hypernatremia ICD Codes: E87.0 - Hyperosmolality and hypernatremia SNOMED: 091717890 (3) Paraplegia ICD Codes: G82.20 - Paraplegia, unspecified SNOMED: 35784019 (4) Anemia ICD Codes: D64.9 - Anemia, unspecified SNOMED: 234980371 (5) Diabetes ICD Codes: E11.9 - Type 2 diabetes mellitus without complications SNOMED: 45886590 (6) HTN (hypertension) ICD Codes: I10 - Essential (primary) hypertension SNOMED: 22737538 (7) ARF (acute renal failure) ICD Codes: N17.9 - Acute kidney failure, unspecified SNOMED: 40738485 (8) Dehydration ICD Codes: E86.0 - Dehydration SNOMED: 35127990 (9) UTI (urinary tract infection) ICD Codes: N39.0 - Urinary tract infection, site not specified SNOMED: 90911106 (10) Failure to thrive in adult ICD Codes: R62.7 - Adult failure to thrive SNOMED: 271045730 Status: unchanged Assessment/Plan: afebrile htn azotemia reviewed chart and labs and meds dehydration ams Juan Diego Randall MD Jan 19, 2020 21:13
--- NOTE | 2020-01-19 23:14 | Psychiatric Progress Note ---
Psychiatry Progress Note Psychiatry Progress Note Medications Current Medications Medications (Trade) Dose Ordered Sig/Jesse Route PRN Reason Start Time Stop Time Status Last Admin Dose Admin Acetaminophen (Tylenol) 650 mg Q4H PRN ORAL PRNH/TEMP 01/05/20 20:15 02/04/20 20:14 01/12/20 03:10 Albuterol/ Ipratropium (Albuterol/ Ipratropium) 3 ml Q4H PRN HHN Bronchospasm 01/15/20 15:36 01/20/20 15:35 Allopurinol (allopurinoL) 300 mg DAILY NG 01/16/20 09:00 02/06/20 14:14 01/19/20 08:19 Barium Sulfate (Readi-Cat 2) 450 ml NOW PRN ORAL Radiology Procedure 01/18/20 08:15 01/20/20 08:14 Bisacodyl (Dulcolax) 10 mg DAILY PRN RECTAL Constipation 01/05/20 20:15 04/04/20 20:14 Calcium Gluconate 1 gm/Sodium Chloride 65 ml @ 65 mls/hr ONCE IVP 01/20/20 09:00 01/20/20 11:00 Chlorhexidine Gluconate (Navya-Hex 2%) 1 applic DAILY@2000 TOPIC 01/11/20 20:00 04/10/20 19:59 01/19/20 20:35 Dextrose (Dextrose 50%) 25 ml Q30M PRN IV Hypoglycemia 01/05/20 20:15 04/04/20 20:14 Dextrose (Dextrose 50%) 50 ml Q30M PRN IV Hypoglycemia 01/05/20 20:15 04/04/20 20:14 Docusate Sodium (Colace) 200 mg DAILY ORAL 01/06/20 09:00 02/05/20 08:59 01/19/20 08:19 Famotidine (Pepcid) 20 mg BID GT 01/19/20 18:00 04/18/20 17:59 01/19/20 17:44 Iohexol (OMNIPAQUE-300 100ml) 100 ml NOW PRN INJ Radiology Procedure 01/18/20 08:15 01/20/20 08:14 Linaclotide (Linzess) 290 mcg BEFORE BREAKFAST ORAL 01/10/20 06:30 04/09/20 06:29 01/19/20 05:33 Metoclopramide HCl (Reglan) 10 mg EVERY 6 HOURS NG 01/19/20 12:00 02/18/20 11:59 01/19/20 17:44 Metoclopramide HCl (Reglan) 10 mg Q6H PRN IVP Nausea & Vomiting 01/16/20 13:00 02/15/20 12:59 Midodrine (Pro-Amatine) 2.5 mg Q8HR ORAL 01/19/20 14:00 04/13/20 17:59 Ondansetron HCl (Zofran) 4 mg Q6H PRN IVP Nausea & Vomiting 01/10/20 06:30 02/09/20 06:29 Oxymetazoline HCl (Afrin Nasal [place]) 2 spray Q12HR PRN NASAL dry nasal passage 01/11/20 08:00 04/10/20 07:59 Polyethylene Glycol (Miralax) 17 gm BEDTIME NG 01/11/20 21:00 02/08/20 20:59 01/19/20 20:37 Sennosides (Senokot) 8.6 mg QHS NG 01/11/20 21:00 02/04/20 20:59 01/19/20 20:37 Vitamin D (Vitamin D) 3,000 intlu DAILY GT 01/19/20 12:00 02/18/20 11:59 01/19/20 13:00 Neurological/Psychiatric: Denies: no symptoms, anxiety, depressed, emotional problems, headache, numbness, paresthesia, pre-existing deficit, seizure, tingli ng, tremors, weakness, other Allergies: Coded Allergies: No Known Allergies (Unverified , 03/18/19) Objective Data Height (Feet): 6 Height (Inches): 0.00 Weight (Pounds): 150 General Appearance: no apparent distress Additional Comments: awake, disoriented. Mood is anxious with agitation. Affect is blunted, congruent with mood. Thought process, there is a paucity of thought content. Thought content, no suicidal or homicidal ideation. Cognition is impaired. Insight and judgment is impaired. Assessment/Plan [place] I: ASSESSMENT: [place] I Dementia. Dementia with behavior disturbance. [place] II Deferred. [place] III Failure to thrive. [place] IV Low. [place] V 20. PLAN: 1. Remeron 15 mg at bedtime to stimulate his appetite. 2. Discussed with the nurse. Status: unchanged Status Narrative ASSESSMENT: [place] I Dementia. Dementia with behavior disturbance. [place] II Deferred. [place] III Failure to thrive. [place] IV Low. [place] V 20. PLAN: 1. Remeron 15 mg at bedtime to stimulate his appetite. 2. Discussed with the nurse. Assessment/Plan: ASSESSMENT: [place] I Dementia. Dementia with behavior disturbance. [place] II Deferred. [place] III Failure to thrive. [place] IV Low. [place] V 20. PLAN: 1. Remeron 15 mg at bedtime to stimulate his appetite. 2. Discussed with the nurse. Toney Bernstein MD Jan 19, 2020 23:14
[2020-01-20] VITALS (40 sets, daily range): BP systolic 56–155; BP diastolic 24–90
--- NOTE | 2020-01-20 04:30 | Emergency Room Report ---
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 COVID-19 Screening: Negative COVID-19 COVID-19 Testing Source: 11/28/19 Nursing Documentation-PMH Past Medical History Deferred: Pt Cognitively Impaired Past Medical History: No History, Except For Hx Cardiac Problems: Yes Hx Hypertension: Yes Hx Pacemaker: No Hx Asthma: No Hx COPD: Yes Hx Diabetes: Yes Hx Cancer: No Hx Gastrointestinal Problems: No History Of Psychiatric Problem: Yes - PSYCHOSIS,BIPOLAR Hx Neurological Problems: Yes Hx Dementia: Yes Hx Alzheimer's Disease: No Hx Parkinson's Disease: Yes Hx Meningitis: No Hx Encephalitis: No Hx Seizures: No Hx Epilepsy: No Hx Multiple Sclerosis: No Hx Cerebral Palsy: No Hx Amyotrophic Lat Sclerosis: No Hx Guillian-Parkhill Syndrome: No Hx Paralysis: Yes - paraplegia Hx Peripheral Neuropathy: No Hx Spinal Cord Injury: No Hx Head Trauma: No Hx Traumatic Brain Injury: No Hx Memory Loss: No Hx Concentration Difficulty: Yes Hx Speech Problem: No Hx Tremors: No Hx Vertigo: No Hx Dizziness: No Hx Syncope: No Hx Headaches: No Hx Aphasia: No Hx Dysphasia: No Hx Numbness: No Hx Weakness: Yes Hx Fatigue: Yes Hx Neurologic Surgery: No Hx Brain Shunt: No Physical Exam Vital Signs Date Time Temp Pulse Resp B/P (MAP) Pulse Ox O2 Delivery O2 Flow Rate FiO2 01/16/20 07:00 97 20 137/84 (101) 97 01/16/20 08:00 Room Air 01/16/20 08:00 98.1 01/16/20 20:14 2.0 28 Procedures CPR/Code Blue CPR/Code Blue Narrative CODE BLUE called. When I arrived to the patient's room on 2 E., chest compressions were already in progress. Patient received 1 mg of epinephrine. Supplemental oxygen was being provided via bag valve mask from respiratory thera py. During the first pulse check I performed endotracheal intubation as described below. Patient was noted to have asystole on the monitor. He was pulseless. CPR was resumed. Patient received another 1 mg of epinephrine. At the next pulse check patient was noted to have a pulse. Transferred to ICU. Intubation Intubation : Consent: Emergent Tube Size (cm): 7.5 Breath Sounds after Intubation: equal Intubation Complications: no complications Attempts: One Patient Tolerated: Well Complications: None Progress 7.5 endotracheal tube. 23 cm at the lip Medical Decision Making Diagnostic Impression: Primary Impression: Hypernatremia Additional Impressions: Lactic acid acidosis Hypovolemic shock Dehydration Last Vital Signs Date Time Temp Pulse Resp B/P (MAP) Pulse Ox O2 Delivery O2 Flow Rate FiO2 01/20/20 00:00 97.7 110 25 155/78 (103) 98 01/19/20 21:00 Nasal Cannula 2.0 01/19/20 20:05 28 Disposition: ADMITTED INPATIENT Condition: Serious Referrals: Farrukh Ríos DO (PCP) Jeison Hernandes M.D. Jan 20, 2020 04:29
--- NOTE | 2020-01-20 05:57 | Diagnostic Imaging Report ---
ADDENDUM - Added by Bob Carvajal M.D. on 01/20/2020 6:02 AM (-08: 00) Right groin approach catheter noted with distal tip terminating along the right aspect of the L5 vertebral body. EXAM: XR KUB CLINICAL HISTORY: LINE TECHNIQUE: Frontal view of the abdomen. COMPARISON: No relevant prior studies available. FINDINGS: The distal tip of the enteric tube is in the proximal stomach with the first side port at the GE junction. Gaseous distention of bowel loops. Suboptimal evaluation for free air on this supine radiograph. IMPRESSION: Distal tip of enteric tube in proximal stomach with first side port at GE junction. Recommend advancement by 10 cm. <MYCVCSECTION> Communications: 01/20/20 05:59 Call Nurse SELIN camargo on 01/19 05:58 (-08:00)
[2020-01-20] MEDS: Midodrine 10mg tab ORAL SCH (06:00)
[2020-01-20] MEDS: Metoclopramide 10mg/10ml Liq NG SCH ×4 (06:00→23:26)
--- NOTE | 2020-01-20 06:02 | Diagnostic Imaging Report ---
EXAM: XR Chest, 1 View CLINICAL HISTORY: LINE TECHNIQUE: Frontal view of the chest. COMPARISON: January 13, 2020. FINDINGS: The distal tip of the ET tube is at the level of the thoracic inlet. The distal tip of the enteric tube is in the proximal stomach. Stable cardiomediastinal silhouette. Significantly increased lung markings bilaterally. Moderate bilateral pleural effusions. IMPRESSION: Findings consistent with worsening pulmonary edema/failure. Underlying pneumonitis not excluded. Moderate bilateral pleural effusions. <MYCVCSECTION> Communications: 01/20/20 05:59 Call Nurse SELIN camargo on 01/19 05:58 (-08:00)
[2020-01-20 06:30] LABS: HEMATOCRIT 22.7 % (42.0-52.0); MEAN CORPUSCULAR VOLUME 94 FL (80-99); PLATELET COUNT 68 K/UL (150-450); RED BLOOD COUNT 2.41 M/UL (4.70-6.10); RED CELL DISTRIBUTION WIDTH 22.5 % (11.6-14.8); WHITE BLOOD COUNT 7.2 K/UL (4.8-10.8)
[2020-01-20 06:38] LABS: HEMOGLOBIN 6.9 G/DL (14.2-18.0)
--- NOTE | 2020-01-20 07:11 | Hematology/Onc Progress Note ---
Assessment/Plan Assessment/Plan Assessment/Recs # Large pelvic mass as described involving the prostate, bladder, seminal vesicles, presumably representing prostatic malignancy --> CT Evidence of disseminated malignancy, with extensive lymphadenopathy of and evidenc of diffuse osseous metastases Severe right and moderate left hydronephrosis and bilateral hydroureter, due to ureteral obstruction by the above mass --> tumor markers ordered --> after above reviewed, consider further biopsy # Anemia of chronic disease due to underlying chronic medical issues, multifactorial v Gi bleed --> Anemia workup has been ordered, rule out gi bleed --> No evidence of hemolysis is noted, peripheral smear has been reviewed. --> Hgb goal >7. Transfuse prn. --> Epogen or iron at this time is not particularly indicated --> Medications have been reviewed --> low threshold for gi evaluation in case has occult + --> hgb 10-->9.7-->9.2->10-->8.6-->7.7-->5-->8.3->9.3->7.8-->8.2-->8.1 --> 11 flow cytometry ordered bc of nucleated cells on smear # Thrombocytopenia ongoing, worsened since adm --> plt 150-->98-->82-->51->49-->46-->50-->68 --> hep and hiv panel--NEG --> us abd-->shows 3 small lesions, requires further eval --> CT a/p ordered # Multiple lesions noted in pancreas --> MRI abd ordered--> nondiagnostic --> CT of the abd reviewed # Protein caloric malnutrition --> daily calorie counts --> daily weights --> mirtazapine started # Acute renal failure --> continue on ivfs --> as per renal # Hypokalemia --> replete with K # Severe dehydration --> ivfs ongoing # Hypernatremia indicative of severe water deficit # Severe hyperuricemia, partly due to dehydration and renal failure # Acute metabolic and toxic encephalopathy # Mild, malnutrition # Psych issues per psych # Lactic acid, possible sepsis # Dvt ppx heparin sq->Scds The timing of this note does not necessarily reflect the time of the patient was seen. Greatly appreciate consultation. Subjective HEENT: Denies: no symptoms, eye pain, blurred vision, tearing, double vision, ear pain, ear discharge, nose pain, nose congestion, throat pain, throat swelling, mouth pain, mouth swelling, other Respiratory: Denies: no symptoms, cough, shortness of breath, SOB with excertion, SOB at rest, sputum, wheezing, other Gastrointestinal/Abdominal: Denies: no symptoms, abdomen distended, abdominal pain, black stools, tarry stools, blood in stool, constipated, diarrhea, difficulty swallowing, nausea, poor appetite, poor fluid intake, rectal bleeding, vomiting, other Genitourinary: Denies: no symptoms, burning, discharge, frequency, flank pain, hematuria, incontinence, pain, urgency, other Neurologic/Psychiatric: Denies: no symptoms, anxiety, depressed, emotional problems, headache, numbness, paresthesia, pre-existing deficit, seizure, tingling, tremors, weakness, other Endocrine: Denies: no symptoms, excessive sweating, flushing, intolerance to cold, intolerance to heat, increased hunger, increased thirst, increased urine, unexplained weight gain, unexplained weight loss, other Allergies: Coded Allergies: No Known Allergies (Unverified , 03/18/19) Subjective 01/07 meds noted, no bleeding, hgb 10, no hemolysis, hgb 10.1 01/08 labs reviewed, vi rn, no major events, no bleeding, hgb lower 01/09 labs noted, no bleeding, vi rn, no major changes, plt lower 01/10 did have epistaxis overnight, no bleeding, night sweats, epistaxis better 01/12 icu, remains on vent, levo, no bleeding, meds noted 01/13 remains in icu, no bleeding, on levo, no major changes 01/14 icu, is on 1l, restarints are off, no bleeding, no night sweats 01/15 icu, meds noted, with diarrhea, rectal tube reinserted, on nc 01/16 out of icu, no bleeding, meds reviewed, cbc ad bmp pending 01/17 unable to lay still for the mri, thus ct ordered, vi [facility] 01/19 hgb 6.9, no bleeding, no hemolysis, ct reviewed Objective Objective Current Medications Medications (Trade) Dose Ordered Sig/Jesse Route PRN Reason Start Time Stop Time Status Last Admin Dose Admin Acetaminophen (Tylenol) 650 mg Q4H PRN ORAL PRNH/TEMP 01/05/20 20:15 02/04/20 20:14 01/12/20 03:10 Albuterol/ Ipratropium (Albuterol/ Ipratropium) 3 ml Q4H PRN HHN Bronchospasm 01/15/20 15:36 01/20/20 15:35 Allopurinol (allopurinoL) 300 mg DAILY NG 01/16/20 09:00 02/06/20 14:14 01/19/20 08:19 Barium Sulfate (Readi-Cat 2) 450 ml NOW PRN ORAL Radiology Procedure 01/18/20 08:15 01/20/20 08:14 Bisacodyl (Dulcolax) 10 mg DAILY PRN RECTAL Constipation 01/05/20 20:15 04/04/20 20:14 Calcium Gluconate 1 gm/Sodium Chloride 65 ml @ 65 mls/hr ONCE IVP 01/20/20 09:00 01/20/20 11:00 Chlorhexidine Gluconate (Navya-Hex 2%) 1 applic DAILY@2000 TOPIC 01/11/20 20:00 04/10/20 19:59 01/19/20 20:35 Dextrose (Dextrose 50%) 25 ml Q30M PRN IV Hypoglycemia 01/05/20 20:15 04/04/20 20:14 Dextrose (Dextrose 50%) 50 ml Q30M PRN IV Hypoglycemia 01/05/20 20:15 04/04/20 20:14 Docusate Sodium (Colace) 200 mg DAILY ORAL 01/06/20 09:00 02/05/20 08:59 01/19/20 08:19 Famotidine (Pepcid) 20 mg BID GT 01/19/20 18:00 04/18/20 17:59 01/19/20 17:44 Iohexol (OMNIPAQUE-300 100ml) 100 ml NOW PRN INJ Radiology Procedure 01/18/20 08:15 01/20/20 08:14 Linaclotide (Linzess) 290 mcg BEFORE BREAKFAST ORAL 01/10/20 06:30 04/09/20 06:29 01/19/20 05:33 Metoclopramide HCl (Reglan) 10 mg EVERY 6 HOURS NG 01/19/20 12:00 02/18/20 11:59 01/19/20 23:32 Metoclopramide HCl (Reglan) 10 mg Q6H PRN IVP Nausea & Vomiting 01/16/20 13:00 02/15/20 12:59 Midodrine (Pro-Amatine) 2.5 mg Q8HR ORAL 01/19/20 14:00 04/13/20 17:59 Ondansetron HCl (Zofran) 4 mg Q6H PRN IVP Nausea & Vomiting 01/10/20 06:30 02/09/20 06:29 Oxymetazoline HCl (Afrin Nasal [place]) 2 spray Q12HR PRN NASAL dry nasal passage 01/11/20 08:00 04/10/20 07:59 Polyethylene Glycol (Miralax) 17 gm BEDTIME NG 01/11/20 21:00 02/08/20 20:59 01/19/20 20:37 Sennosides (Senokot) 8.6 mg QHS NG 01/11/20 21:00 02/04/20 20:59 01/19/20 20:37 Sodium Chloride 500 ml @ 999 mls/hr Q31M ONCE IV 01/20/20 07:00 01/20/20 07:30 Vitamin D (Vitamin D) 3,000 intlu DAILY GT 01/19/20 12:00 02/18/20 11:59 01/19/20 13:00 Last 24 Hour Vital Signs Date Time Temp Pulse Resp B/P (MAP) Pulse Ox O2 Delivery O2 Flow Rate FiO2 01/20/20 04:55 122 35 100 01/20/20 00:00 97.7 110 25 155/78 (103) 98 01/19/20 21:00 Nasal Cannula 2.0 01/19/20 20:05 98 Nasal Cannula 2.0 28 01/19/20 20:05 103 18 98 Nasal Cannula 2.0 28 01/19/20 20:00 110 01/19/20 20:00 97.9 114 20 140/78 (98) 98 01/19/20 16:00 115 01/19/20 16:00 109 01/19/20 16:00 98.7 107 22 134/79 (97) 96 01/19/20 15:30 25 84 01/19/20 12:00 97.7 108 20 132/75 (94) 90 01/19/20 12:00 108 01/19/20 09:00 Nasal Cannula 2.0 01/19/20 08:13 94 Room Air 21 01/19/20 08:12 97 16 94 Room Air 21 01/19/20 08:00 98.1 115 16 146/88 (107) 96 01/19/20 08:00 115 01/19/20 04:00 97.5 113 18 140/80 (100) 98 01/19/20 04:00 113 01/19/20 00:00 97.4 105 20 148/82 (104) 98 01/19/20 00:00 113 01/18/20 21:00 Room Air 01/18/20 20:41 96 Room Air 21 01/18/20 20:41 105 20 97 Room Air 21 01/18/20 20:00 97.6 116 23 129/74 (92) 95 01/18/20 20:00 119 01/18/20 16:00 98.1 107 22 145/81 (102) 97 01/18/20 16:00 119 01/18/20 12:35 90 20 96 Room Air 21 01/18/20 12:35 96 Room Air 21 01/18/20 12:00 108 01/18/20 12:00 97.8 99 21 135/70 (91) 96 01/18/20 09:00 Room Air 01/18/20 08:00 93 01/18/20 08:00 97.5 100 20 131/66 (87) 96 Intake and Output 01/19/20 01/20/20 19:00 07:00 Output Total 900 ml Balance -900 ml Output Urine Total 900 ml Labs Test 01/17/20 08:34 01/17/20 08:50 01/17/20 13:16 01/17/20 13:17 POC Whole Blood Glucose 75 MG/DL (74-106) 74 MG/DL (74-106) 75 MG/DL (74-106) White Blood Count 9.0 K/UL (4.8-10.8) Red Blood Count 3.75 M/UL (4.70-6.10) Hemoglobin 10.4 G/DL (14.2-18.0) Hematocrit 33.3 % (42.0-52.0) Mean Corpuscular Volume 89 FL (80-99) Mean Corpuscular Hemoglobin 27.8 PG (27.0-31.0) Mean Corpuscular Hemoglobin Concent 31.3 G/DL (32.0-36.0) Red Cell Distribution Width 21.1 % (11.6-14.8) Platelet Count 72 K/UL (150-450) Mean Platelet Volume 9.9 FL (6.5-10.1) Neutrophils (%) (Auto) % (45.0-75.0) Lymphocytes (%) (Auto) % (20.0-45.0) Monocytes (%) (Auto) % (1.0-10.0) Eosinophils (%) (Auto) % (0.0-3.0) Basophils (%) (Auto) % (0.0-2.0) Differential Total Cells Counted 100 Neutrophils % (Manual) 72 % (45-75) Lymphocytes % (Manual) 17 % (20-45) Monocytes % (Manual) 7 % (1-10) Eosinophils % (Manual) 1 % (0-3) Basophils % (Manual) 0 % (0-2) Band Neutrophils 3 % (0-8) Platelet Estimate Decreased Platelet Morphology Normal Polychromasia 1+ Hypochromasia 1+ Anisocytosis 2+ Sodium Level 143 MMOL/L (136-145) Potassium Level 3.5 MMOL/L (3.5-5.1) Chloride Level 110 MMOL/L (98-107) Carbon Dioxide Level 19 MMOL/L (21-32) Anion Gap 14 mmol/L (5-15) Blood Urea Nitrogen 18 mg/dL (7-18) Creatinine 1.4 MG/DL (0.55-1.30) Estimat Glomerular Filtration Rate > 60 mL/min (>60) Glucose Level 70 MG/DL (74-106) Uric Acid 4.9 MG/DL (2.6-7.2) Calcium Level 8.4 MG/DL (8.5-10.1) Phosphorus Level 3.4 MG/DL (2.5-4.9) Magnesium Level 1.7 MG/DL (1.8-2.4) Total Bilirubin 0.7 MG/DL (0.2-1.0) Aspartate Amino Transf (AST/SGOT) 62 U/L (15-37) Alanine Aminotransferase (ALT/SGPT) 20 U/L (12-78) Alkaline Phosphatase 130 U/L (46-116) Total Protein 5.9 G/DL (6.4-8.2) Albumin 2.7 G/DL (3.4-5.0) Globulin 3.2 g/dL Albumin/Globulin Ratio 0.8 (1.0-2.7) Random Vancomycin Level 16.1 ug/mL Test 01/17/20 16:36 01/17/20 17:39 01/17/20 21:22 01/18/20 00:34 POC Whole Blood Glucose 85 MG/DL (74-106) Test 01/18/20 04:52 01/18/20 05:00 01/18/20 12:56 01/18/20 14:09 White Blood Count 7.1 K/UL (4.8-10.8) Red Blood Count 2.82 M/UL (4.70-6.10) Hemoglobin 8.1 G/DL (14.2-18.0) Hematocrit 25.5 % (42.0-52.0) Mean Corpuscular Volume 90 FL (80-99) Mean Corpuscular Hemoglobin 28.7 PG (27.0-31.0) Mean Corpuscular Hemoglobin Concent 31.8 G/DL (32.0-36.0) Red Cell Distribution Width 21.6 % (11.6-14.8) Platelet Count 68 K/UL (150-450) Mean Platelet Volume 8.6 FL (6.5-10.1) Neutrophils (%) (Auto) % (45.0-75.0) Lymphocytes (%) (Auto) % (20.0-45.0) Monocytes (%) (Auto) % (1.0-10.0) Eosinophils (%) (Auto) % (0.0-3.0) Basophils (%) (Auto) % (0.0-2.0) Differential Total Cells Counted 100 Neutrophils % (Manual) 86 % (45-75) Lymphocytes % (Manual) 11 % (20-45) Monocytes % (Manual) 3 % (1-10) Eosinophils % (Manual) 0 % (0-3) Basophils % (Manual) 0 % (0-2) Band Neutrophils 0 % (0-8) Platelet Estimate Decreased Platelet Morphology Normal Hypochromasia 1+ Anisocytosis 2+ Sodium Level 143 MMOL/L (136-145) Potassium Level 3.0 MMOL/L (3.5-5.1) Chloride Level 112 MMOL/L (98-107) Carbon Dioxide Level 20 MMOL/L (21-32) Anion Gap 11 mmol/L (5-15) Blood Urea Nitrogen 14 mg/dL (7-18) Creatinine 1.3 MG/DL (0.55-1.30) Estimat Glomerular Filtration Rate > 60 mL/min (>60) Glucose Level 79 MG/DL (74-106) Calcium Level 8.2 MG/DL (8.5-10.1) POC Whole Blood Glucose 110 MG/DL (74-106) Test 01/18/20 17:05 01/18/20 23:35 01/19/20 05:00 01/19/20 07:15 POC Whole Blood Glucose 89 MG/DL (74-106) 88 MG/DL (74-106) 95 MG/DL (74-106) White Blood Count 6.6 K/UL (4.8-10.8) Red Blood Count 2.78 M/UL (4.70-6.10) Hemoglobin 8.0 G/DL (14.2-18.0) Hematocrit 25.1 % (42.0-52.0) Mean Corpuscular Volume 90 FL (80-99) Mean Corpuscular Hemoglobin 28.6 PG (27.0-31.0) Mean Corpuscular Hemoglobin Concent 31.8 G/DL (32.0-36.0) Red Cell Distribution Width 21.1 % (11.6-14.8) Platelet Count 80 K/UL (150-450) Mean Platelet Volume 8.3 FL (6.5-10.1) Neutrophils (%) (Auto) % (45.0-75.0) Lymphocytes (%) (Auto) % (20.0-45.0) Monocytes (%) (Auto) % (1.0-10.0) Eosinophils (%) (Auto) % (0.0-3.0) Basophils (%) (Auto) % (0.0-2.0) Differential Total Cells Counted 100 Neutrophils % (Manual) 78 % (45-75) Lymphocytes % (Manual) 15 % (20-45) Monocytes % (Manual) 4 % (1-10) Eosinophils % (Manual) 0 % (0-3) Basophils % (Manual) 0 % (0-2) Myelocytes % 1 % (0-0) Band Neutrophils 2 % (0-8) Nucleated Red Blood Cells 3 /100 WBC Platelet Estimate Decreased Platelet Morphology Normal Anisocytosis 2+ Sodium Level 141 MMOL/L (136-145) Potassium Level 3.8 MMOL/L (3.5-5.1) Chloride Level 110 MMOL/L (98-107) Carbon Dioxide Level 19 MMOL/L (21-32) Anion Gap 12 mmol/L (5-15) Blood Urea Nitrogen 14 mg/dL (7-18) Creatinine 1.2 MG/DL (0.55-1.30) Estimat Glomerular Filtration Rate > 60 mL/min (>60) Glucose Level 106 MG/DL (74-106) Uric Acid 4.1 MG/DL (2.6-7.2) Calcium Level 8.0 MG/DL (8.5-10.1) Phosphorus Level 3.7 MG/DL (2.5-4.9) Magnesium Level 1.5 MG/DL (1.8-2.4) Total Bilirubin 0.4 MG/DL (0.2-1.0) Aspartate Amino Transf (AST/SGOT) 39 U/L (15-37) Alanine Aminotransferase (ALT/SGPT) 14 U/L (12-78) Alkaline Phosphatase 126 U/L (46-116) C-Reactive Protein, Quantitative 12.3 mg/dL (0.00-0.90) Pro-B-Type Natriuretic Peptide 3412 pg/mL (0-125) Total Protein 5.1 G/DL (6.4-8.2) Albumin 2.0 G/DL (3.4-5.0) Globulin 3.1 g/dL Albumin/Globulin Ratio 0.6 (1.0-2.7) Test 01/19/20 23:32 01/20/20 04:11 01/20/20 04:38 01/20/20 06:23 POC Whole Blood Glucose 106 MG/DL (74-106) 126 MG/DL (74-106) Arterial Blood pH 7.130 (7.350-7.450) Arterial Blood Partial Pressure CO2 49.1 mmHg (35.0-45.0) Arterial Blood Partial Pressure O2 300.7 mmHg (75.0-100.0) Arterial Blood HCO3 16.0 mmol/L (22.0-26.0) Arterial Blood Oxygen Saturation 99.2 % (95-100) Arterial Blood Base Excess -12.5 (-2-2) Asael Test Positive White Blood Count 7.2 K/UL (4.8-10.8) Red Blood Count 2.41 M/UL (4.70-6.10) Hemoglobin 6.9 G/DL (14.2-18.0) Hematocrit 22.7 % (42.0-52.0) Mean Corpuscular Volume 94 FL (80-99) Mean Corpuscular Hemoglobin 28.7 PG (27.0-31.0) Mean Corpuscular Hemoglobin Concent 30.5 G/DL (32.0-36.0) Red Cell Distribution Width 22.5 % (11.6-14.8) Platelet Count 68 K/UL (150-450) Mean Platelet Volume 8.0 FL (6.5-10.1) Neutrophils (%) (Auto) % (45.0-75.0) Lymphocytes (%) (Auto) % (20.0-45.0) Monocytes (%) (Auto) % (1.0-10.0) Eosinophils (%) (Auto) % (0.0-3.0) Basophils (%) (Auto) % (0.0-2.0) Height (Feet): 6 Height (Inches): 0.00 Weight (Pounds): 150 Objective PE: Vitals: reviewed General Appearance: NAD HEENT: normocephalic, atraumatic Neck: non-tender, normal alignment Respiratory/Chest: nromal breath sounds bilaterally Cardiovascular/Chest: normal peripheral pulses, normal rate Abdomen: normal bowel sounds, soft, nontender Extremities: normal range of motion Samuel Son MD Jan 20, 2020 07:11
[2020-01-20 07:15] LABS: ALANINE AMINOTRANSFERASE 58 U/L (12-78); ALBUMIN 1.7 G/DL (3.4-5.0); ALBUMIN/GLOBULIN RATIO 0.6 (1.0-2.7); ALKALINE PHOSPHATASE 103 U/L (46-116); ANION GAP 11 mmol/L (5-15); ASPARTATE AMINO TRANSFERASE 151 U/L (15-37); BILIRUBIN,TOTAL 0.2 MG/DL (0.2-1.0); BLOOD UREA NITROGEN 17 mg/dL (7-18); CALCIUM 7.6 MG/DL (8.5-10.1); CARBON DIOXIDE 20 MMOL/L (21-32); CHLORIDE 113 MMOL/L (98-107); CREATININE 1.4 MG/DL (0.55-1.30); PHOSPHORUS 5.4 MG/DL (2.5-4.9); POTASSIUM 4.6 MMOL/L (3.5-5.1); SODIUM 144 MMOL/L (136-145)
[2020-01-20] MEDS ORDERED: Norepinephrine 4mg/NS Premix 250 ML IV PRN (08:00)
[2020-01-20] MEDS ORDERED: NS IVP SCH (09:00)
[2020-01-20] MEDS ORDERED: CALCIUM GLUCONATE IVP SCH (09:00)
[2020-01-20] MEDS: Vitamin D 1000 IU Tab GT SCH (09:00)
[2020-01-20] MEDS: Docusate 100mg cap ORAL SCH (09:00)
--- NOTE | 2020-01-20 09:16 | General Progress Note ---
Subjective ROS Limited/Unobtainable: No Allergies: Coded Allergies: No Known Allergies (Unverified , 03/18/19) Objective Last 24 Hour Vital Signs Date Time Temp Pulse Resp B/P (MAP) Pulse Ox O2 Delivery O2 Flow Rate FiO2 01/20/20 07:01 91 36 87/53 (64) 100 01/20/20 06:45 85 20 105/63 (77) 100 01/20/20 06:43 75 34 129/64 (85) 100 01/20/20 06:40 81 21 129/64 (85) 100 01/20/20 06:40 87 21 83/50 (61) 100 01/20/20 06:30 89 21 78/51 (60) 100 01/20/20 06:28 89 26 77/49 (58) 100 01/20/20 06:15 90 20 68/46 (53) 100 01/20/20 06:05 96 22 60/43 (49) 100 01/20/20 06:02 97 21 56/24 (35) 100 01/20/20 05:30 110 29 100 01/20/20 05:15 109 17 100 01/20/20 05:00 117 33 100 01/20/20 04:55 122 35 100 01/20/20 04:32 96.7 132 16 111/90 (97) 100 01/20/20 04:30 122 01/20/20 00:00 97.7 110 25 155/78 (103) 98 01/19/20 21:00 Nasal Cannula 2.0 01/19/20 20:05 98 Nasal Cannula 2.0 28 01/19/20 20:05 103 18 98 Nasal Cannula 2.0 28 01/19/20 20:00 110 01/19/20 20:00 97.9 114 20 140/78 (98) 98 01/19/20 16:00 115 01/19/20 16:00 109 01/19/20 16:00 98.7 107 22 134/79 (97) 96 01/19/20 15:30 25 84 01/19/20 12:00 97.7 108 20 132/75 (94) 90 01/19/20 12:00 108 Intake and Output 01/19/20 01/20/20 19:00 07:00 Output Total 900 ml 250 ml Balance -900 ml -250 ml Output Urine Total 900 ml 200 ml Stool Total 50 ml Laboratory Tests 01/19/20 23:32: POC Whole Blood Glucose 106 01/20/20 04:11: POC Whole Blood Glucose 126H 01/20/20 04:38: Arterial Blood pH 7.130*L, Arterial Blood Partial Pressure CO2 49.1H, Arterial Blood Partial Pressure O2 300.7H, Arterial Blood HCO3 16.0*L, Arterial Blood Oxygen Saturation 99.2, Arterial Blood Base Excess -12.5*L, Asael Test Positive 01/20/20 06:23: White Blood Count 7.2, Red Blood Count 2.41L, Hemoglobin 6.9*L, Hematocrit 22.7L , Mean Corpuscular Volume 94, Mean Corpuscular Hemoglobin 28.7, Mean Corpuscular Hemoglobin Concent 30.5L, Red Cell Distribution Width 22.5H, Platelet Count 68L, Mean Platelet Volume 8.0, Neutrophils (%) (Auto) , Lymphocytes (%) (Auto) , Monocytes (%) (Auto) , Eosinophils (%) (Auto) , Basophils (%) (Auto) , Differential Total Cells Counted 100, Neutrophils % (Manual) 88H, Lymphocytes % (Manual) 6L, Monocytes % (Manual) 6, Eosinophils % (Manual) 0, Basophils % (Manual) 0, Band Neutrophils 0, Nucleated Red Blood Cells 2, Platelet Estimate DecreasedL, Platelet Morphology Normal, Polychromasia 1+, Hypochromasia 1+, Anisocytosis 3+, Reticulocyte Count [Pending], Sodium Level 144, Potassium Level 4.6, Chloride Level 113H, Carbon Dioxide Level 20L, Anion Gap 11, Blood Urea Nitrogen 17, Creatinine 1.4H, Estimat Glomerular Filtration Rate > 60, Glucose Level 132H, Uric Acid 3.8, Calcium Level 7.6L, Phosphorus Level 5.4H, Magnesium Level 1.8, Total Bilirubin 0.2, Aspartate Amino Transf (AST/SGOT) 151H, Alanine Aminotransferase (ALT/SGPT) 58, Alkaline Phosphatase 103, Total Protein 4.5L, Albumin 1.7L, Globulin 2.8, Albumin/Globulin Ratio 0.6L, CA 19-9 Antigen [Pending], Prostate Specific Antigen 2741.31H 01/20/20 08:11: Arterial Blood pH 7.440, Arterial Blood Partial Pressure CO2 22.7*L, Arterial Blood Partial Pressure O2 333.0H, Arterial Blood HCO3 15.1*L, Arterial Blood Oxygen Saturation 99.3, Arterial Blood Base Excess -8.1L, Asael Test Positive Height (Feet): 6 Height (Inches): 0.00 Weight (Pounds): 150 General Appearance: lethargic EENT: normal ENT inspection Neck: supple Cardiovascular: normal rate Respiratory/Chest: decreased breath sounds Abdomen: hypoactive bowel sounds Extremities: non-tender Assessment/Plan Status: unchanged Assessment/Plan: AMS dementia Anemia DM hyper CA elevated AST low albumin COPD RI HTN metastatic prostate CA intubated and transferred to ICU over night NPO pending blood transfusion poor prognosis may need peg when more stable and consented Paulino Bueno MD Jan 20, 2020 09:16
--- NOTE | 2020-01-20 09:45 | Diagnostic Imaging Report ---
EXAM: XR Abdomen, 2 Views CLINICAL HISTORY: LINE TECHNIQUE: Frontal views of the abdomen/pelvis. COMPARISON: Abdominal x-rays dated 01/20/20 at 5:27 AM FINDINGS: Intraperitoneal space: No free air identified. Gastrointestinal tract: No significant interval change in diffuse gaseous distention of small bowel and colonic loops. Bones/joints: Moderate degenerative narrowing in bilateral hip joints. Tubes, lines and devices: NG tube tip in the expected region of the gastric body. Radiodense tubing in the central pelvis, possibly Mathew catheter or rectal catheter. Right femoral central line in place with the tip at the level of L5. IMPRESSION: 1. No significant interval change in diffuse gaseous distention of small bowel and colonic loops. 2. NG tube tip in the expected region of the gastric body.
--- NOTE | 2020-01-20 09:47 | Diagnostic Imaging Report ---
EXAM: XR Chest, 1 View CLINICAL HISTORY: Follow-up TECHNIQUE: Frontal view of the chest. COMPARISON: Chest x-ray dated 01/20/20@5:24 AM FINDINGS: Lungs: Mild pulmonary vascular congestion. Subsegmental atelectasis versus infiltrates in bilateral lung bases, unchanged. Pleural space: Bilateral layering pleural effusions, not significantly changed. Heart: Unremarkable. No cardiomegaly. Mediastinum: Unremarkable. Bones/joints: Unremarkable. Tubes, lines and devices: Endotracheal tube tip is 6 cm above the héctor. NG tube extends below the diaphragm and its tip is not visualized. Telemetry leads overlie the thorax. IMPRESSION: No significant interval change compared to the prior chest x-ray. Pulmonary vascular congestion with bilateral layering pleural effusions.
--- NOTE | 2020-01-20 10:28 | Pulmonology Progress Note ---
Subjective ROS Limited/Unobtainable: No Interval Events: Separate CODE BLUE last night. Now intubated in ICU Constitutional: Reports: no symptoms HEENT: Repors: no symptoms Respiratory: Reports: no symptoms Cardiovascular: Reports: no symptoms Gastrointestinal/Abdominal: Reports: no symptoms Genitourinary: Reports: no symptoms Allergies: Coded Allergies: No Known Allergies (Unverified , 03/18/19) All Systems: reviewed and negative except above Objective Last 24 Hour Vital Signs Date Time Temp Pulse Resp B/P (MAP) Pulse Ox O2 Delivery O2 Flow Rate FiO2 01/20/20 09:28 79/51 01/20/20 07:01 91 36 87/53 (64) 100 01/20/20 06:45 85 20 105/63 (77) 100 01/20/20 06:43 75 34 129/64 (85) 100 01/20/20 06:40 81 21 129/64 (85) 100 01/20/20 06:40 87 21 83/50 (61) 100 01/20/20 06:30 89 21 78/51 (60) 100 01/20/20 06:28 89 26 77/49 (58) 100 01/20/20 06:15 90 20 68/46 (53) 100 01/20/20 06:05 96 22 60/43 (49) 100 01/20/20 06:02 97 21 56/24 (35) 100 01/20/20 05:30 110 29 100 01/20/20 05:15 109 17 100 01/20/20 05:00 117 33 100 01/20/20 04:55 122 35 100 01/20/20 04:32 96.7 132 16 111/90 (97) 100 01/20/20 04:30 122 01/20/20 00:00 97.7 110 25 155/78 (103) 98 01/19/20 21:00 Nasal Cannula 2.0 01/19/20 20:05 98 Nasal Cannula 2.0 28 01/19/20 20:05 103 18 98 Nasal Cannula 2.0 28 01/19/20 20:00 110 01/19/20 20:00 97.9 114 20 140/78 (98) 98 01/19/20 16:00 115 01/19/20 16:00 109 01/19/20 16:00 98.7 107 22 134/79 (97) 96 01/19/20 15:30 25 84 01/19/20 12:00 97.7 108 20 132/75 (94) 90 01/19/20 12:00 108 Intake and Output 01/19/20 01/20/20 19:00 07:00 Output Total 900 ml 250 ml Balance -900 ml -250 ml Output Urine Total 900 ml 200 ml Stool Total 50 ml General Appearance: no acute distress HEENT: normocephalic Respiratory: chest wall non-tender, lungs clear Cardiovascular: normal peripheral pulses, normal rate Abdomen: normal bowel sounds Laboratory Tests 01/19/20 23:32: POC Whole Blood Glucose 106 01/20/20 04:11: POC Whole Blood Glucose 126H 01/20/20 04:38: Arterial Blood pH 7.130*L, Arterial Blood Partial Pressure CO2 49.1H, Arterial Blood Partial Pressure O2 300.7H, Arterial Blood HCO3 16.0*L, Arterial Blood Oxygen Saturation 99.2, Arterial Blood Base Excess -12.5*L, Asael Test Positive 01/20/20 06:23: White Blood Count 7.2, Red Blood Count 2.41L, Hemoglobin 6.9*L, Hematocrit 22.7L , Mean Corpuscular Volume 94, Mean Corpuscular Hemoglobin 28.7, Mean Corpuscular Hemoglobin Concent 30.5L, Red Cell Distribution Width 22.5H, Platelet Count 68L, Mean Platelet Volume 8.0, Neutrophils (%) (Auto) , Lymphocytes (%) (Auto) , Monocytes (%) (Auto) , Eosinophils (%) (Auto) , Basophils (%) (Auto) , Differential Total Cells Counted 100, Neutrophils % (Manual) 88H, Lymphocytes % (Manual) 6L, Monocytes % (Manual) 6, Eosinophils % (Manual) 0, Basophils % (Manual) 0, Band Neutrophils 0, Nucleated Red Blood Cells 2, Platelet Estimate DecreasedL, Platelet Morphology Normal, Polychromasia 1+, Hypochromasia 1+, Anisocytosis 3+, Reticulocyte Count [Pending], Sodium Level 144, Potassium Level 4.6, Chloride Level 113H, Carbon Dioxide Level 20L, Anion Gap 11, Blood Urea Nitrogen 17, Creatinine 1.4H, Estimat Glomerular Filtration Rate > 60, Glucose Level 132H, Uric Acid 3.8, Calcium Level 7.6L, Phosphorus Level 5.4H, Magnesium Level 1.8, Total Bilirubin 0.2, Aspartate Amino Transf (AST/SGOT) 151H, Alanine Aminotransferase (ALT/SGPT) 58, Alkaline Phosphatase 103, Total Protein 4.5L, Albumin 1.7L, Globulin 2.8, Albumin/Globulin Ratio 0.6L, CA 19-9 Antigen [Pending], Prostate Specific Antigen 2741.31H 01/20/20 08:11: Arterial Blood pH 7.440, Arterial Blood Partial Pressure CO2 22.7*L, Arterial Blood Partial Pressure O2 333.0H, Arterial Blood HCO3 15.1*L, Arterial Blood Oxygen Saturation 99.3, Arterial Blood Base Excess -8.1L, Asael Test Positive Current Medications Medications (Trade) Dose Ordered Sig/Jesse Route PRN Reason Start Time Stop Time Status Last Admin Dose Admin Acetaminophen (Tylenol) 650 mg Q4H PRN ORAL PRNH/TEMP 01/05/20 20:15 02/04/20 20:14 01/12/20 03:10 Albuterol/ Ipratropium (Albuterol/ Ipratropium) 3 ml Q4H PRN HHN Bronchospasm 01/15/20 15:36 01/20/20 15:35 Allopurinol (allopurinoL) 300 mg DAILY NG 01/16/20 09:00 02/06/20 14:14 01/19/20 08:19 Bisacodyl (Dulcolax) 10 mg DAILY PRN RECTAL Constipation 01/05/20 20:15 04/04/20 20:14 Calcium Gluconate 1 gm/Sodium Chloride 65 ml @ 65 mls/hr ONCE IVP 01/20/20 09:00 01/20/20 11:00 01/20/20 09:43 Chlorhexidine Gluconate (Navya-Hex 2%) 1 applic DAILY@2000 TOPIC 01/11/20 20:00 04/10/20 19:59 01/19/20 20:35 Dextrose (Dextrose 50%) 25 ml Q30M PRN IV Hypoglycemia 01/05/20 20:15 04/04/20 20:14 Dextrose (Dextrose 50%) 50 ml Q30M PRN IV Hypoglycemia 01/05/20 20:15 04/04/20 20:14 Docusate Sodium (Colace) 200 mg DAILY ORAL 01/06/20 09:00 02/05/20 08:59 01/19/20 08:19 Famotidine (Pepcid) 20 mg BID GT 01/19/20 18:00 04/18/20 17:59 01/19/20 17:44 Linaclotide (Linzess) 290 mcg BEFORE BREAKFAST ORAL 01/10/20 06:30 04/09/20 06:29 01/19/20 05:33 Metoclopramide HCl (Reglan) 10 mg EVERY 6 HOURS NG 01/19/20 12:00 02/18/20 11:59 01/19/20 23:32 Metoclopramide HCl (Reglan) 10 mg Q6H PRN IVP Nausea & Vomiting 01/16/20 13:00 02/15/20 12:59 Midodrine (Pro-Amatine) 2.5 mg Q8HR ORAL 01/19/20 14:00 04/13/20 17:59 Norepinephrine Bitartrate 250 ml @ 0 mls/hr Q24H PRN IV For hypotension 01/20/20 08:00 01/23/20 07:59 01/20/20 09:28 Ondansetron HCl (Zofran) 4 mg Q6H PRN IVP Nausea & Vomiting 01/10/20 06:30 02/09/20 06:29 Oxymetazoline HCl (Afrin Nasal [place]) 2 spray Q12HR PRN NASAL dry nasal passage 01/11/20 08:00 04/10/20 07:59 Polyethylene Glycol (Miralax) 17 gm BEDTIME NG 01/11/20 21:00 02/08/20 20:59 01/19/20 20:37 Sennosides (Senokot) 8.6 mg QHS NG 01/11/20 21:00 02/04/20 20:59 01/19/20 20:37 Vitamin D (Vitamin D) 3,000 intlu DAILY GT 01/19/20 12:00 02/18/20 11:59 01/19/20 13:00 Assessment/Plan Assessment/Plan IMPRESSION: 1. Severe metabolic acidosis. Corrected 2. Respiratory failure; reintubated 3. Diarrhea. 4. Acute renal failure. Nephrology following; creatinine now 1.3 5. Anemia; for transfusion today DISCUSSION: ABG reviewed. Will adjust vent. Transfused today. Start Lasix drip. Continue pressors. Daxa Infante Omar Syed MD Jan 20, 2020 10:28
--- NOTE | 2020-01-20 13:48 | General Progress Note ---
Subjective ROS Limited/Unobtainable: Yes Allergies: Coded Allergies: No Known Allergies (Unverified , 03/18/19) Objective Last 24 Hour Vital Signs Date Time Temp Pulse Resp B/P (MAP) Pulse Ox O2 Delivery O2 Flow Rate FiO2 01/20/20 13:00 103 24 111/61 (78) 100 01/20/20 12:30 96 24 119/62 (81) 100 01/20/20 12:00 98.3 97 24 116/63 (80) 100 01/20/20 12:00 Endotracheal Tube 01/20/20 11:29 94 26 50 01/20/20 11:00 96 24 104/59 (74) 100 01/20/20 10:40 94 26 107/58 (74) 100 01/20/20 10:25 94 28 112/60 (77) 100 01/20/20 10:10 92 28 108/63 (78) 100 01/20/20 09:55 90 29 114/60 (78) 100 01/20/20 09:40 98 29 94/61 (72) 100 01/20/20 09:35 98.5 100 30 85/57 (66) 100 01/20/20 09:30 99 29 81/55 (64) 100 01/20/20 09:28 79/51 01/20/20 09:25 99 27 79/51 (60) 100 01/20/20 09:20 97 25 50 01/20/20 09:00 105 23 99/61 (74) 100 01/20/20 08:30 50 01/20/20 08:00 Endotracheal Tube 01/20/20 08:00 94 30 93/61 (72) 100 01/20/20 07:50 94 01/20/20 07:20 91 25 80 01/20/20 07:01 91 36 87/53 (64) 100 01/20/20 06:45 85 20 105/63 (77) 100 01/20/20 06:43 75 34 129/64 (85) 100 01/20/20 06:40 81 21 129/64 (85) 100 01/20/20 06:40 87 21 83/50 (61) 100 01/20/20 06:30 89 21 78/51 (60) 100 01/20/20 06:28 89 26 77/49 (58) 100 01/20/20 06:15 90 20 68/46 (53) 100 01/20/20 06:05 96 22 60/43 (49) 100 01/20/20 06:02 97 21 56/24 (35) 100 01/20/20 05:30 110 29 100 01/20/20 05:15 109 17 100 01/20/20 05:00 117 33 100 01/20/20 04:55 122 35 100 01/20/20 04:32 96.7 132 16 111/90 (97) 100 01/20/20 04:30 122 01/20/20 00:00 97.7 110 25 155/78 (103) 98 01/19/20 21:00 Nasal Cannula 2.0 01/19/20 20:05 98 Nasal Cannula 2.0 28 01/19/20 20:05 103 18 98 Nasal Cannula 2.0 28 01/19/20 20:00 110 01/19/20 20:00 97.9 114 20 140/78 (98) 98 01/19/20 16:00 115 01/19/20 16:00 109 01/19/20 16:00 98.7 107 22 134/79 (97) 96 01/19/20 15:30 25 84 Intake and Output 01/19/20 01/20/20 19:00 07:00 Output Total 900 ml 250 ml Balance -900 ml -250 ml Output Urine Total 900 ml 200 ml Stool Total 50 ml Laboratory Tests 01/19/20 23:32: POC Whole Blood Glucose 106 01/20/20 04:11: POC Whole Blood Glucose 126H 01/20/20 04:38: Arterial Blood pH 7.130*L, Arterial Blood Partial Pressure CO2 49.1H, Arterial Blood Partial Pressure O2 300.7H, Arterial Blood HCO3 16.0*L, Arterial Blood Ox ygen Saturation 99.2, Arterial Blood Base Excess -12.5*L, Asael Test Positive 01/20/20 06:23: White Blood Count 7.2, Red Blood Count 2.41L, Hemoglobin 6.9*L, Hematocrit 22.7L , Mean Corpuscular Volume 94, Mean Corpuscular Hemoglobin 28.7, Mean Corpuscular Hemoglobin Concent 30.5L, Red Cell Distribution Width 22.5H, Platelet Count 68L, Mean Platelet Volume 8.0, Neutrophils (%) (Auto) , Lymphocytes (%) (Auto) , Monocytes (%) (Auto) , Eosinophils (%) (Auto) , Basophils (%) (Auto) , Differential Total Cells Counted 100, Neutrophils % (Manual) 88H, Lymphocytes % (Manual) 6L, Monocytes % (Manual) 6, Eosinophils % (Manual) 0, Basophils % (Manual) 0, Band Neutrophils 0, Nucleated Red Blood Cells 2, Platelet Estimate DecreasedL, Platelet Morphology Normal, Polychromasia 1+, Hypochromasia 1+, Anisocytosis 3+, Reticulocyte Count 1.6, Sodium Level 144, Potassium Level 4.6, Chloride Level 113H, Carbon Dioxide Level 20L, Anion Gap 11, Blood Urea Nitrogen 17, Creatinine 1.4H, Estimat Glomerular Filtration Rate > 60, Glucose Level 132H , Uric Acid 3.8, Calcium Level 7.6L, Phosphorus Level 5.4H, Magnesium Level 1.8, Total Bilirubin 0.2, Aspartate Amino Transf (AST/SGOT) 151H, Alanine Aminotransferase (ALT/SGPT) 58, Alkaline Phosphatase 103, Total Protein 4.5L, Albumin 1.7L, Globulin 2.8, Albumin/Globulin Ratio 0.6L, CA 19-9 Antigen [Pending], Prostate Specific Antigen 2741.31H 01/20/20 08:11: Arterial Blood pH 7.440, Arterial Blood Partial Pressure CO2 22.7*L, Arterial Blood Partial Pressure O2 333.0H, Arterial Blood HCO3 15.1*L, Arterial Blood Oxygen Saturation 99.3, Arterial Blood Base Excess -8.1L, Asael Test Positive Height (Feet): 6 Height (Inches): 0.00 Weight (Pounds): 150 Assessment/Plan Problem List: (1) Altered level of consciousness ICD Codes: R40.4 - Transient alteration of awareness SNOMED: 5359040 (2) Hypernatremia ICD Codes: E87.0 - Hyperosmolality and hypernatremia SNOMED: 870387806 (3) Paraplegia ICD Codes: G82.20 - Paraplegia, unspecified SNOMED: 53817548 (4) Anemia ICD Codes: D64.9 - Anemia, unspecified SNOMED: 551880003 (5) Diabetes ICD Codes: E11.9 - Type 2 diabetes mellitus without complications SNOMED: 85413295 (6) HTN (hypertension) ICD Codes: I10 - Essential (primary) hypertension SNOMED: 40737232 (7) ARF (acute renal failure) ICD Codes: N17.9 - Acute kidney failure, unspecified SNOMED: 34185939 (8) Dehydration ICD Codes: E86.0 - Dehydration SNOMED: 41164208 (9) UTI (urinary tract infection) ICD Codes: N39.0 - Urinary tract infection, site not specified SNOMED: 67601406 (10) Failure to thrive in adult ICD Codes: R62.7 - Adult failure to thrive SNOMED: 123993165 Status: unchanged Assessment/Plan: lyte abnormality check lytes and h/h afebrile no change azotemia reviewed chart and labs and meds dehydration Juan Diego Kingsley MD Jan 20, 2020 13:48
--- NOTE | 2020-01-20 14:47 | Nephrology Progress Note ---
Assessment/Plan Problem List: (1) ARF (acute renal failure) (2) Hypernatremia (3) Hypovolemic shock (4) Altered level of consciousness (5) Hypercalcemia (6) Hyperuricemia (7) Pelvic mass Assessment: Prostate cancer Assessment Acute renal failure Possible underlying chronic kidney failure Severe dehydration Hypernatremia indicative of severe water deficit Severe hyperuricemia, partly due to dehydration and renal failure Acute metabolic and toxic encephalopathy Mild, malnutrition Anemia Lactic acid, possible sepsis Hypercalcemia Plan January 19: Patient in ICU. Intubated. Was coded yesterday. Labs reviewed. Medication list reviewed and adjusted. Continue per consultants. Patient full code. Prognosis poor. PSA over 2700 January 18: Labs reviewed. IV fluid discontinued. IV calcium dose decreased. Midodrine dose decreased. Reglan and Protonix changed to GT route. Vitamin D initiated. Continue to monitor renal parameters and calcium level. January 17: Labs reviewed. Abnormal electrolyte addressed. Continue per consultants. January 16: Patient now in telemetry. Labs pending. Continue to monitor renal parameters. Continue per consultants. January 15: Still in ICU. Doing well post extubation. Renal parameters improving. Not requiring any more dialysis treatment after the first dialysis treatment. Medications reviewed. Continue per consultants. January 14: Remains in ICU. Tolerating extubation. Labs reviewed. Abnormal electrolytes addressed. Serum creatinine lowering. Continue per current management. Stop Phos binders. Increase calcium IV. January 13: In ICU. Now extubated. Only dialyzed once. Urine output maintained. Serum creatinine down to 2.5. Patient has NG tube. Continue to monitor renal parameters. Continue per consultants. Abnormal electrolytes addressed. January 12: Remains in ICU. Intubated. Transfused yesterday. Abnormal electrolytes addressed. Dialyzed once January 10. Serum creatinine stable. Will adjust IV fluid. Monitor renal parameters. Dialysis as needed. Calcium gluconate IV ordered. Ionized calcium level ordered with tomorrow's labs. January 11: Patient in ICU. Intubated. On Levophed. Hemoglobin low. Due for transfusion. Electrolyte abnormalities noted and addressed. Patient was dialyzed yesterday. Will check lab tomorrow. Dialysis as needed. Discussed with SELIN Srivastava. January 10: Patient is doing poorly. Blood pressure low. ABG abnormal with metabolic acidosis. IV sodium bicarb given. Serum creatinine reno. Patient has acute renal failure. Nontunneled dialysis catheter replacement ordered.. Patient need life saving dialysis treatment SRINIVAS. January 09: Labs reviewed. IV D5 and a half with sodium bicarb initiated. Serum creatinine higher. Continue to monitor renal parameters. NG feeding was changed to Nepro. Patient remains full code. Poor prognosis. January 08: Labs reviewed. IV D5W discontinued. 500 cc 3% saline ordered. NG tube for feeding and for medications. Allopurinol dose increased. Continue to monitor renal parameters serum calcium and phosphorus. January 07: Labs reviewed. Serum calcium remains elevated. Uric acid still elevated. Will give pamidronate 60 mg IV piggyback once for hypercalcemia. Continue to monitor renal parameters. Continue D5W 150 cc an hour. Start Bicitra 30 cc p.o. every 6 hours. Add allopurinol D5W IV hydration Albumin bolus N.p.o. until able to take p.o. Antibiotics Monitor renal parameters monitor calcium, monitor uric acid Subjective ROS Limited/Unobtainable: Yes Objective Objective Last 24 Hour Vital Signs Date Time Temp Pulse Resp B/P (MAP) Pulse Ox O2 Delivery O2 Flow Rate FiO2 01/20/20 13:00 103 24 111/61 (78) 100 01/20/20 12:30 96 24 119/62 (81) 100 01/20/20 12:00 98.3 97 24 116/63 (80) 100 01/20/20 12:00 Endotracheal Tube 01/20/20 11:29 94 26 50 01/20/20 11:00 96 24 104/59 (74) 100 01/20/20 10:40 94 26 107/58 (74) 100 01/20/20 10:25 94 28 112/60 (77) 100 01/20/20 10:10 92 28 108/63 (78) 100 01/20/20 09:55 90 29 114/60 (78) 100 01/20/20 09:40 98 29 94/61 (72) 100 01/20/20 09:35 98.5 100 30 85/57 (66) 100 01/20/20 09:30 99 29 81/55 (64) 100 01/20/20 09:28 79/51 01/20/20 09:25 99 27 79/51 (60) 100 01/20/20 09:20 97 25 50 01/20/20 09:00 105 23 99/61 (74) 100 01/20/20 08:30 50 11/15/20 08:00 Endotracheal Tube 01/20/20 08:00 94 30 93/61 (72) 100 01/20/20 07:50 94 01/20/20 07:20 91 25 80 01/20/20 07:01 91 36 87/53 (64) 100 01/20/20 06:45 85 20 105/63 (77) 100 01/20/20 06:43 75 34 129/64 (85) 100 01/20/20 06:40 81 21 129/64 (85) 100 01/20/20 06:40 87 21 83/50 (61) 100 01/20/20 06:30 89 21 78/51 (60) 100 01/20/20 06:28 89 26 77/49 (58) 100 01/20/20 06:15 90 20 68/46 (53) 100 01/20/20 06:05 96 22 60/43 (49) 100 01/20/20 06:02 97 21 56/24 (35) 100 01/20/20 05:30 110 29 100 01/20/20 05:15 109 17 100 01/20/20 05:00 117 33 100 01/20/20 04:55 122 35 100 01/20/20 04:32 96.7 132 16 111/90 (97) 100 01/20/20 04:30 122 01/20/20 00:00 97.7 110 25 155/78 (103) 98 01/19/20 21:00 Nasal Cannula 2.0 01/19/20 20:05 98 Nasal Cannula 2.0 28 01/19/20 20:05 103 18 98 Nasal Cannula 2.0 28 01/19/20 20:00 110 01/19/20 20:00 97.9 114 20 140/78 (98) 98 01/19/20 16:00 115 01/19/20 16:00 109 01/19/20 16:00 98.7 107 22 134/79 (97) 96 01/19/20 15:30 25 84 Intake and Output 01/19/20 01/20/20 19:00 07:00 Output Total 900 ml 250 ml Balance -900 ml -250 ml Output Urine Total 900 ml 200 ml Stool Total 50 ml Laboratory Tests 01/19/20 23:32: POC Whole Blood Glucose 106 01/20/20 04:11: POC Whole Blood Glucose 126H 01/20/20 04:38: Arterial Blood pH 7.130*L, Arterial Blood Partial Pressure CO2 49.1H, Arterial Blood Partial Pressure O2 300.7H, Arterial Blood HCO3 16.0*L, Arterial Blood Oxygen Saturation 99.2, Arterial Blood Base Excess -12.5*L, Asael Test Positive 01/20/20 06:23: White Blood Count 7.2, Red Blood Count 2.41L, Hemoglobin 6.9*L, Hematocrit 22.7L , Mean Corpuscular Volume 94, Mean Corpuscular Hemoglobin 28.7, Mean Corpuscular Hemoglobin Concent 30.5L, Red Cell Distribution Width 22.5H, Platelet Count 68L, Mean Platelet Volume 8.0, Neutrophils (%) (Auto) , Lymphocytes (%) (Auto) , Monocytes (%) (Auto) , Eosinophils (%) (Auto) , Basophils (%) (Auto) , Differential Total Cells Counted 100, Neutrophils % (Manual) 88H, Lymphocytes % (Manual) 6L, Monocytes % (Manual) 6, Eosinophils % (Manual) 0, Basophils % (Manual) 0, Band Neutrophils 0, Nucleated Red Blood Cells 2, Platelet Estimate DecreasedL, Platelet Morphology Normal, Polychromasia 1+, Hypochromasia 1+, Anisocytosis 3+, Reticulocyte Count 1.6, Sodium Level 144, Potassium Level 4.6, Chloride Level 113H, Carbon Dioxide Level 20L, Anion Gap 11, Blood Urea Nitrogen 17, Creatinine 1.4H, Estimat Glomerular Filtration Rate > 60, Glucose Level 132H , Uric Acid 3.8, Calcium Level 7.6L, Phosphorus Level 5.4H, Magnesium Level 1.8, Total Bilirubin 0.2, Aspartate Amino Transf (AST/SGOT) 151H, Alanine Aminotransferase (ALT/SGPT) 58, Alkaline Phosphatase 103, Total Protein 4.5L, Albumin 1.7L, Globulin 2.8, Albumin/Globulin Ratio 0.6L, CA 19-9 Antigen [Pending], Prostate Specific Antigen 2741.31H 01/20/20 08:11: Arterial Blood pH 7.440, Arterial Blood Partial Pressure CO2 22.7*L, Arterial Blood Partial Pressure O2 333.0H, Arterial Blood HCO3 15.1*L, Arterial Blood Oxygen Saturation 99.3, Arterial Blood Base Excess -8.1L, Asael Test Positive Height (Feet): 6 Height (Inches): 0.00 Weight (Pounds): 150 General Appearance: no apparent distress EENT: other - Patient in ICU intubated Cardiovascular: tachycardia Respiratory/Chest: decreased breath sounds Abdomen: distended Dhiraj Biswas MD Jan 20, 2020 14:47
--- NOTE | 2020-01-20 16:46 | Cardiac Electrophysiology PN ---
Assessment/Plan Assessment/Plan 1. Altered mental status due to severe dehydration in view of sodium of 160 and acute renal failure. On IV fluids and IV antibiotics. Ruled out for OH. 2. Septic shock on Levophed and iv Abx On Midodrine 10 tid 3. History of CVA, Plavix DCed in view of hematuria. 4. Respiratory failure on the Vent now. 5. Diabetes. 6. Acute renal failure. Cr 4.2. Had HD once only on 01/11/20. No more HD needed and Cr 1.2 7. Hematuria 8. Anemia with Hb 5.8 and coffee ground emesis. FU Dr Bueno 9. Shock liver with increase AST>2000 10. Pancreatic mass x3. CT abdomen and pelvis showed Large pelvic mass involving the prostate, bladder presumably representing prostatic malignancy 11. Dysphagia, NGT feeding. PEG pending ethics sue DIETRICH RN Subjective Subjective S/P CT abdomen and pelvis Awaiting Ethics for PEG placement Coded today for respiratory failure followed by bradycardia and PEA. Intubated on the vent in ICU on Levo 2 mcg Objective Last 24 Hour Vital Signs Date Time Temp Pulse Resp B/P (MAP) Pulse Ox O2 Delivery O2 Flow Rate FiO2 01/20/20 15:35 100 25 40 01/20/20 13:20 107 25 40 01/20/20 13:00 103 24 111/61 (78) 100 01/20/20 12:30 96 24 119/62 (81) 100 01/20/20 12:00 98.3 97 24 116/63 (80) 100 01/20/20 12:00 Endotracheal Tube 01/20/20 11:29 94 26 50 01/20/20 11:00 96 24 104/59 (74) 100 01/20/20 10:40 94 26 107/58 (74) 100 01/20/20 10:25 94 28 112/60 (77) 100 01/20/20 10:10 92 28 108/63 (78) 100 01/20/20 09:55 90 29 114/60 (78) 100 01/20/20 09:40 98 29 94/61 (72) 100 01/20/20 09:35 98.5 100 30 85/57 (66) 100 01/20/20 09:30 99 29 81/55 (64) 100 01/20/20 09:28 79/51 01/20/20 09:25 99 27 79/51 (60) 100 01/20/20 09:20 97 25 50 01/20/20 09:00 105 23 99/61 (74) 100 01/20/20 08:30 50 01/20/20 08:00 Endotracheal Tube 01/20/20 08:00 94 30 93/61 (72) 100 01/20/20 07:50 94 01/20/20 07:20 91 25 80 01/20/20 07:01 91 36 87/53 (64) 100 01/20/20 06:45 85 20 105/63 (77) 100 01/20/20 06:43 75 34 129/64 (85) 100 01/20/20 06:40 81 21 129/64 (85) 100 01/20/20 06:40 87 21 83/50 (61) 100 01/20/20 06:30 89 21 78/51 (60) 100 01/20/20 06:28 89 26 77/49 (58) 100 01/20/20 06:15 90 20 68/46 (53) 100 01/20/20 06:05 96 22 60/43 (49) 100 01/20/20 06:02 97 21 56/24 (35) 100 01/20/20 05:30 110 29 100 01/20/20 05:15 109 17 100 01/20/20 05:00 117 33 100 01/20/20 04:55 122 35 100 01/20/20 04:32 96.7 132 16 111/90 (97) 100 01/20/20 04:30 122 01/20/20 00:00 97.7 110 25 155/78 (103) 98 01/19/20 21:00 Nasal Cannula 2.0 01/19/20 20:05 98 Nasal Cannula 2.0 28 01/19/20 20:05 103 18 98 Nasal Cannula 2.0 28 01/19/20 20:00 110 01/19/20 20:00 97.9 114 20 140/78 (98) 98 Intake and Output 01/19/20 01/20/20 19:00 07:00 Output Total 900 ml 250 ml Balance -900 ml -250 ml Output Urine Total 900 ml 200 ml Stool Total 50 ml Laboratory Tests Test 01/19/20 23:32 01/20/20 04:11 01/20/20 04:38 01/20/20 06:23 POC Whole Blood Glucose 106 MG/DL (74-106) 126 MG/DL (74-106) H Arterial Blood pH 7.130 (7.350-7.450) Arterial Blood Partial Pressure CO2 49.1 mmHg (35.0-45.0) H Arterial Blood Partial Pressure O2 300.7 mmHg (75.0-100.0) H Arterial Blood HCO3 16.0 mmol/L (22.0-26.0) *L Arterial Blood Oxygen Saturation 99.2 % (95-100) Arterial Blood Base Excess -12.5 (-2-2) *L Asael Test Positive White Blood Count 7.2 K/UL (4.8-10.8) Red Blood Count 2.41 M/UL (4.70-6.10) L Hemoglobin 6.9 G/DL (14.2-18.0) *L Hematocrit 22.7 % (42.0-52.0) L Mean Corpuscular Volume 94 FL (80-99) Mean Corpuscular Hemoglobin 28.7 PG (27.0-31.0) Mean Corpuscular Hemoglobin Concent 30.5 G/DL (32.0-36.0) L Red Cell Distribution Width 22.5 % (11.6-14.8) H Platelet Count 68 K/UL (150-450) L Mean Platelet Volume 8.0 FL (6.5-10.1) Neutrophils (%) (Auto) % (45.0-75.0) Lymphocytes (%) (Auto) % (20.0-45.0) Monocytes (%) (Auto) % (1.0-10.0) Eosinophils (%) (Auto) % (0.0-3.0) Basophils (%) (Auto) % (0.0-2.0) Differential Total Cells Counted 100 Neutrophils % (Manual) 88 % (45-75) H Lymphocytes % (Manual) 6 % (20-45) L Monocytes % (Manual) 6 % (1-10) Eosinophils % (Manual) 0 % (0-3) Basophils % (Manual) 0 % (0-2) Band Neutrophils 0 % (0-8) Nucleated Red Blood Cells 2 /100 WBC Platelet Estimate Decreased L Platelet Morphology Normal Polychromasia 1+ Hypochromasia 1+ Anisocytosis 3+ Reticulocyte Count 1.6 % (0.5-2.0) Sodium Level 144 MMOL/L (136-145) Potassium Level 4.6 MMOL/L (3.5-5.1) Chloride Level 113 MMOL/L (98-107) H Carbon Dioxide Level 20 MMOL/L (21-32) L Anion Gap 11 mmol/L (5-15) Blood Urea Nitrogen 17 mg/dL (7-18) Creatinine 1.4 MG/DL (0.55-1.30) H Estimat Glomerular Filtration Rate > 60 mL/min (>60) Glucose Level 132 MG/DL (74-106) H Uric Acid 3.8 MG/DL (2.6-7.2) Calcium Level 7.6 MG/DL (8.5-10.1) L Phosphorus Level 5.4 MG/DL (2.5-4.9) H Magnesium Level 1.8 MG/DL (1.8-2.4) Total Bilirubin 0.2 MG/DL (0.2-1.0) Aspartate Amino Transf (AST/SGOT) 151 U/L (15-37) H Alanine Aminotransferase (ALT/SGPT) 58 U/L (12-78) Alkaline Phosphatase 103 U/L (46-116) Total Protein 4.5 G/DL (6.4-8.2) L Albumin 1.7 G/DL (3.4-5.0) L Globulin 2.8 g/dL Albumin/Globulin Ratio 0.6 (1.0-2.7) L CA 19-9 Antigen Pending Prostate Specific Antigen 2741.31 ng/mL (0.13-4.0) H Test 01/20/20 08:11 Arterial Blood pH 7.440 (7.350-7.450) Arterial Blood Partial Pressure CO2 22.7 mmHg (35.0-45.0) *L Arterial Blood Partial Pressure O2 333.0 mmHg (75.0-100.0) H Arterial Blood HCO3 15.1 mmol/L (22.0-26.0) *L Arterial Blood Oxygen Saturation 99.3 % (95-100) Arterial Blood Base Excess -8.1 (-2-2) L Asael Test Positive Objective HEAD AND NECK: Orally intubated.NGT in place LUNGS: Coarse rhonchi. CARDIOVASCULAR: Regular S1 and S2 with no gallop. ABDOMEN: Soft. EXTREMITIES: No pitting edema.Right groin Mega in place Kevin Lopez MD Jan 20, 2020 16:46
[2020-01-20 17:09] LABS: HEMATOCRIT 27.4 % (42.0-52.0); MEAN CORPUSCULAR VOLUME 86 FL (80-99); PLATELET COUNT 84 K/UL (150-450); RED BLOOD COUNT 3.19 M/UL (4.70-6.10); RED CELL DISTRIBUTION WIDTH 19.3 % (11.6-14.8); WHITE BLOOD COUNT 7.7 K/UL (4.8-10.8)
--- NOTE | 2020-01-20 17:19 | Surgery Progress Note ---
Surgery Progress Note Subjective Procedure Performed Right femoral temporary hemodialysis catheter insertion Additional Comments acutely worsen respiratory compromse intubated and in icu on support prognosis guarded Objective Last 24 Hour Vital Signs Date Time Temp Pulse Resp B/P (MAP) Pulse Ox O2 Delivery O2 Flow Rate FiO2 01/20/20 16:14 103 01/20/20 16:00 Endotracheal Tube 01/20/20 15:35 100 25 40 01/20/20 13:20 107 25 40 01/20/20 13:00 103 24 111/61 (78) 100 01/20/20 12:30 96 24 119/62 (81) 100 01/20/20 12:04 97 01/20/20 12:00 98.3 97 24 116/63 (80) 100 01/20/20 12:00 Endotracheal Tube 01/20/20 11:29 94 26 50 01/20/20 11:00 96 24 104/59 (74) 100 01/20/20 10:40 94 26 107/58 (74) 100 01/20/20 10:25 94 28 112/60 (77) 100 01/20/20 10:10 92 28 108/63 (78) 100 01/20/20 09:55 90 29 114/60 (78) 100 01/20/20 09:40 98 29 94/61 (72) 100 01/20/20 09:35 98.5 100 30 85/57 (66) 100 01/20/20 09:30 99 29 81/55 (64) 100 01/20/20 09:28 79/51 01/20/20 09:25 99 27 79/51 (60) 100 01/20/20 09:20 97 25 50 01/20/20 09:00 105 23 99/61 (74) 100 01/20/20 08:30 50 01/20/20 08:00 Endotracheal Tube 01/20/20 08:00 94 30 93/61 (72) 100 01/20/20 07:50 94 01/20/20 07:20 91 25 80 01/20/20 07:01 91 36 87/53 (64) 100 01/20/20 06:45 85 20 105/63 (77) 100 01/20/20 06:43 75 34 129/64 (85) 100 01/20/20 06:40 81 21 129/64 (85) 100 01/20/20 06:40 87 21 83/50 (61) 100 01/20/20 06:30 89 21 78/51 (60) 100 01/20/20 06:28 89 26 77/49 (58) 100 01/20/20 06:15 90 20 68/46 (53) 100 01/20/20 06:05 96 22 60/43 (49) 100 01/20/20 06:02 97 21 56/24 (35) 100 01/20/20 05:30 110 29 100 01/20/20 05:15 109 17 100 01/20/20 05:00 117 33 100 01/20/20 04:55 122 35 100 01/20/20 04:32 96.7 132 16 111/90 (97) 100 01/20/20 04:30 122 01/20/20 00:00 97.7 110 25 155/78 (103) 98 01/19/20 21:00 Nasal Cannula 2.0 01/19/20 20:05 98 Nasal Cannula 2.0 28 01/19/20 20:05 103 18 98 Nasal Cannula 2.0 28 01/19/20 20:00 110 01/19/20 20:00 97.9 114 20 140/78 (98) 98 I&O Intake and Output 01/19/20 01/20/20 19:00 07:00 Output Total 900 ml 250 ml Balance -900 ml -250 ml Output Urine Total 900 ml 200 ml Stool Total 50 ml Dressing: saturated Cardiovascular: RSR Respiratory: decreased breath sounds Abdomen: non-tender, present bowel sounds Extremities: no edema, no tenderness, no cyanosis Laboratory Tests Test 01/19/20 23:32 01/20/20 04:11 01/20/20 04:38 01/20/20 06:23 POC Whole Blood Glucose 106 MG/DL (74-106) 126 MG/DL (74-106) H Arterial Blood pH 7.130 (7.350-7.450) Arterial Blood Partial Pressure CO2 49.1 mmHg (35.0-45.0) H Arterial Blood Partial Pressure O2 300.7 mmHg (75.0-100.0) H Arterial Blood HCO3 16.0 mmol/L (22.0-26.0) *L Arterial Blood Oxygen Saturation 99.2 % (95-100) Arterial Blood Base Excess -12.5 (-2-2) *L Asael Test Positive White Blood Count 7.2 K/UL (4.8-10.8) Red Blood Count 2.41 M/UL (4.70-6.10) L Hemoglobin 6.9 G/DL (14.2-18.0) *L Hematocrit 22.7 % (42.0-52.0) L Mean Corpuscular Volume 94 FL (80-99) Mean Corpuscular Hemoglobin 28.7 PG (27.0-31.0) Mean Corpuscular Hemoglobin Concent 30.5 G/DL (32.0-36.0) L Red Cell Distribution Width 22.5 % (11.6-14.8) H Platelet Count 68 K/UL (150-450) L Mean Platelet Volume 8.0 FL (6.5-10.1) Neutrophils (%) (Auto) % (45.0-75.0) Lymphocytes (%) (Auto) % (20.0-45.0) Monocytes (%) (Auto) % (1.0-10.0) Eosinophils (%) (Auto) % (0.0-3.0) Basophils (%) (Auto) % (0.0-2.0) Differential Total Cells Counted 100 Neutrophils % (Manual) 88 % (45-75) H Lymphocytes % (Manual) 6 % (20-45) L Monocytes % (Manual) 6 % (1-10) Eosinophils % (Manual) 0 % (0-3) Basophils % (Manual) 0 % (0-2) Band Neutrophils 0 % (0-8) Nucleated Red Blood Cells 2 /100 WBC Platelet Estimate Decreased L Platelet Morphology Normal Polychromasia 1+ Hypochromasia 1+ Anisocytosis 3+ Reticulocyte Count 1.6 % (0.5-2.0) Sodium Level 144 MMOL/L (136-145) Potassium Level 4.6 MMOL/L (3.5-5.1) Chloride Level 113 MMOL/L (98-107) H Carbon Dioxide Level 20 MMOL/L (21-32) L Anion Gap 11 mmol/L (5-15) Blood Urea Nitrogen 17 mg/dL (7-18) Creatinine 1.4 MG/DL (0.55-1.30) H Estimat Glomerular Filtration Rate > 60 mL/min (>60) Glucose Level 132 MG/DL (74-106) H Uric Acid 3.8 MG/DL (2.6-7.2) Calcium Level 7.6 MG/DL (8.5-10.1) L Phosphorus Level 5.4 MG/DL (2.5-4.9) H Magnesium Level 1.8 MG/DL (1.8-2.4) Total Bilirubin 0.2 MG/DL (0.2-1.0) Aspartate Amino Transf (AST/SGOT) 151 U/L (15-37) H Alanine Aminotransferase (ALT/SGPT) 58 U/L (12-78) Alkaline Phosphatase 103 U/L (46-116) Total Protein 4.5 G/DL (6.4-8.2) L Albumin 1.7 G/DL (3.4-5.0) L Globulin 2.8 g/dL Albumin/Globulin Ratio 0.6 (1.0-2.7) L CA 19-9 Antigen Pending Prostate Specific Antigen 2741.31 ng/mL (0.13-4.0) H Test 01/20/20 08:11 01/20/20 16:10 Arterial Blood pH 7.440 (7.350-7.450) Arterial Blood Partial Pressure CO2 22.7 mmHg (35.0-45.0) *L Arterial Blood Partial Pressure O2 333.0 mmHg (75.0-100.0) H Arterial Blood HCO3 15.1 mmol/L (22.0-26.0) *L Arterial Blood Oxygen Saturation 99.3 % (95-100) Arterial Blood Base Excess -8.1 (-2-2) L Asael Test Positive White Blood Count 7.7 K/UL (4.8-10.8) Red Blood Count 3.19 M/UL (4.70-6.10) L Hemoglobin 9.0 G/DL (14.2-18.0) #L Hematocrit 27.4 % (42.0-52.0) L Mean Corpuscular Volume 86 FL (80-99) # Mean Corpuscular Hemoglobin 28.3 PG (27.0-31.0) Mean Corpuscular Hemoglobin Concent 32.9 G/DL (32.0-36.0) Red Cell Distribution Width 19.3 % (11.6-14.8) H Platelet Count 84 K/UL (150-450) L Mean Platelet Volume 8.0 FL (6.5-10.1) Neutrophils (%) (Auto) % (45.0-75.0) Lymphocytes (%) (Auto) % (20.0-45.0) Monocytes (%) (Auto) % (1.0-10.0) Eosinophils (%) (Auto) % (0.0-3.0) Basophils (%) (Auto) % (0.0-2.0) Neutrophils % (Manual) Pending Lymphocytes % (Manual) Pending Platelet Estimate Pending Platelet Morphology Pending Plan Problems: (1) Altered level of consciousness (2) Hypovolemic shock Assessment & Plan: resuscitation extubated monitor respiratory keep hob elevated supplemental O2 Gallbladder demonstrates sludge. No stones, wall thickening, nor pericholecystic fluid. Patient unable to report Wilson's sign Common bile duct measures 3 mm in diameter. No intrahepatic biliary ductal dilatation. Liver demonstrates coarsened echogenicity and surface nodularity. It demonstrates m ultiple cysts. Portal vein and hepatic veins are patent. The pancreas demonstrates 3 hypoechoic lesions in the head and body, measuring approximately 5 mm in diameter each. Spleen is unremarkable, poorly visualized. Left kidney measures 11.4 cm in length. Right kidney measures 11.3 cm length. Both kidneys demonstrate normal echogenicity. There is severe right and moderate left hydronephrosis. Echogenic foci are seen in the left renal sinus and collecting system. Bladder is empty, contains a Mathew catheter. Non-aneurysmal abdominal aorta . There are bilateral pleural effusions Impression: Bilateral right greater than left hydronephrosis, increased since prior study of 03/20/2019. Etiology not demonstrated Empty bladder with a Mathew catheter 3 hypoechoic lesions within the pancreatic head and body, each measuring about 5 mm. Appearance nonspecific. Recommend further evaluation with pancreas protocol MRI Bilateral pleural effusions Echogenic liver, consistent with hepatocellular disease. Surface likely nodularity raises concern for cirrhosis Gallbladder sludge. Negative for dilated bile ducts Probable nonobstructive left intrarenal calculi Multiple hepatic cysts (3) Lactic acid acidosis (4) Hypernatremia (5) Paraplegia (6) Anemia Assessment & Plan: no active bleeding noted no large hematoma dressings okay likely related to heme will monitor transfuse prbc with HD trend labs thank you (7) Diabetes (8) Weak (9) HTN (hypertension) (10) ARF (acute renal failure) (11) Hypercalcemia (12) Hyperuricemia (13) Dehydration (14) UTI (urinary tract infection) (15) Failure to thrive in adult Assessment & Plan: patient identified to have DTI on bilateral heels right with 5cm x 4cm area of dti not open no drainage no signs of infection left with 3cm x 2cm. pillow under leg optifoam dressings nutritional optimization will follow no acute surgery DAILY ESTIMATED NEEDS: Needs based on underweight, suspected wt loss, HD, CRITICAL CARE/ 57.6kg 25-33 kcals/kg 5564-1402 total kcals 1.2-2 g protein/kg 69-115 g total protein 25-30 mL/kg 3803-9422 total fluid mLs NUTRITION DIAGNOSIS: *Increased kcal and pro needs r/t underweight status, suspected significant wt loss as evidenced by pt @ 71% IBW w/ BMI 17.2, underweight per guidelines, w/ suspected signficant wt loss of 30lbs/19% in 10 months. * Swallowing difficulty R/T dysphagia, respiratory status as evidenced by s/p NGT insertion (01/08), now NPO, s/p code blue (01/10), orally intubated. CURRENT TF:NPO ENTERAL NUTRITION RECOMMENDATIONS: WHEN HEMODYNAMICALLY STABLE: Nepro @ 40ml/hr x 24 hrs to provide 960ml, 1728kcal, 77g prot, 698ml free water WHEN HEMODYNAMICALLY STABLE AND MEDICALLY APPROPRIATE TO FEED: -> initiate TF @ 5ml/hr x 6hrs, advance slowly 5ml q 4-6 hrs as tolerated to goal rate -> HOB over 30 degrees/ water flush per MD WITHOUT HEMODYNAMIC STABILITY -> If medically appropriate to feed, rec trophic feeding of Nepro @ 5ml/hr x 24 hrs to maintain gut integrity (16) Pelvic mass Assessment & Plan: invasive pelvic mass likely prostate necrotic nodes likely spread recommend colonoscopy given invasion possible to rectum oncology input thank you There is a large pelvic mass which is cephalad to but inseparable from the prostate. This also is inseparable from the posterior wall of the bladder and there appears to be circumferential bladder wall thickening. This mass also appears to involve the seminal vesicles. This measures approximately 8.8 cm transverse by 10 cm craniocaudad by 7.4 cm AP. The periphery of this mass is very lobulated. The mass may also invade the adjacent rectum. There is bilateral iliac chain lymphadenopathy, with nodes measuring up to 3 cm in diameter. Some of these nodes are very low in attenuation indicating that they are necrotic. There is also retroperitoneal lymphadenopathy. There is severe right and moderate left hydronephrosis and bilateral hydroureter. The dilated ureters terminate at the level of the mass. No intrinsic renal parenchymal abnormality. The pancreas is unremarkable. No findings corresponding to the areas of low-attenuation described on prior sonogram are evident. No pancreatic ductal dilatation is evident. The liver demonstrates multiple cysts. The gallbladder, bile ducts, spleen, adrenals are unremarkable. The bones demonstrate diffuse involvement with multiple mixed osteolytic/osteosclerotic lesions, mostly sclerotic component predominating. There is a right groin dialysis catheter in place, tip at the level of the iliac venous confluence. There is a nasogastric tube,, tip in the stomach. There is a Mathew catheter. There is a rectal tube lying outside the patient with the balloon inflated within the inner gluteal fold. There are bilateral pleural effusions. There is compressive atelectasis of most if not all of both lower lobes. 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 Compressive atelectasis of most of not all of both lower lobes Other findings as noted, including multiple liver cysts Lázaro Jenkins Jan 20, 2020 17:19
[2020-01-20] MEDS: Dyna-Hex 2% Top Sol 2oz TOPIC SCH (20:22)
[2020-01-20] MEDS: Sennosides 8.6mg tab NG SCH (20:22)
[2020-01-20] MEDS: Pantoprazole Inj IVP SCH (20:22)
[2020-01-20] MEDS: Miralax 17gm pkt NG SCH (20:22)
[2020-01-20] MEDS: Midodrine 10mg tab NG SCH (21:13)
[2020-01-21] VITALS (36 sets, daily range): BP systolic 85–136; BP diastolic 50–80
[2020-01-21] MEDS: Metoclopramide 10mg/10ml Liq NG SCH ×4 (05:55→23:42)
[2020-01-21] MEDS: Midodrine 10mg tab NG SCH ×3 (05:55→22:02)
[2020-01-21 06:17] LABS: HEMATOCRIT 28.7 % (42.0-52.0); HEMOGLOBIN 9.3 G/DL (14.2-18.0); MEAN CORPUSCULAR VOLUME 89 FL (80-99); PLATELET COUNT 88 K/UL (150-450); RED BLOOD COUNT 3.22 M/UL (4.70-6.10); RED CELL DISTRIBUTION WIDTH 19.8 % (11.6-14.8); WHITE BLOOD COUNT 7.1 K/UL (4.8-10.8)
[2020-01-21 06:49] LABS: ALBUMIN 1.9 G/DL (3.4-5.0); ALBUMIN/GLOBULIN RATIO 0.6 (1.0-2.7); BILIRUBIN,TOTAL 0.5 MG/DL (0.2-1.0); CALCIUM 7.5 MG/DL (8.5-10.1); CREATININE 1.6 MG/DL (0.55-1.30); POTASSIUM 3.3 MMOL/L (3.5-5.1)
[2020-01-21 06:56] LABS: CREATINE KINASE 193 U/L (26-308); GAMMA GLUTAMYL TRANSPEPTIDASE 87 U/L (5-85); PHOSPHORUS 3.3 MG/DL (2.5-4.9)
--- NOTE | 2020-01-21 07:08 | Hematology/Onc Progress Note ---
Assessment/Plan Assessment/Plan Assessment/Recs # Metastatic prostate cancer -- w psa [id number], has a Large pelvic mass as described involving the prostate, bladder, seminal vesicles, presumably representing prostatic malignancy --> CT Evidence of disseminated malignancy, with extensive lymphadenopathy of and evidenc of diffuse osseous metastases Severe right and moderate left hydronephrosis and bilateral hydroureter, due to ureteral obstruction by the above mass --> tumor markers ordered, psa 2741 --> after above reviewed, consider further biopsy of prostate with uro as needed # Anemia of chronic disease due to underlying chronic medical issues, multifactorial v Gi bleed --> Anemia workup has been ordered, rule out gi bleed --> No evidence of hemolysis is noted, peripheral smear has been reviewed. --> Hgb goal >7. Transfuse prn. --> Epogen or iron at this time is not particularly indicated --> Medications have been reviewed --> low threshold for gi evaluation in case has occult + --> hgb 10-->9.7-->9.2->10-->8.6-->7.7-->5-->8.3->9.3->7.8-->8.2-->8.1-->9.3 --> 11/8 flow cytometry ordered bc of nucleated cells on smear # Thrombocytopenia ongoing, worsened since adm --> plt 150-->98-->82-->51->49-->46-->50-->68-->88 --> hep and hiv panel--NEG --> us abd-->shows 3 small lesions, requires further eval --> CT a/p reviewed # Multiple lesions noted in pancreas --> MRI abd ordered--> nondiagnostic --> CT of the abd reviewed # Protein caloric malnutrition --> daily calorie counts --> daily weights --> mirtazapine started # Acute renal failure --> continue on ivfs --> as per renal # Hypokalemia --> replete with K # Severe dehydration --> ivfs ongoing # Hypernatremia indicative of severe water deficit # Severe hyperuricemia, partly due to dehydration and renal failure # Acute metabolic and toxic encephalopathy # Mild, malnutrition # Psych issues per psych # Lactic acid, possible sepsis # Dvt ppx heparin sq->Scds The timing of this note does not necessarily reflect the time of the patient was seen. Greatly appreciate consultation. Subjective Allergies: Coded Allergies: No Known Allergies (Unverified , 03/18/19) All Systems: reviewed and negative except above Subjective 01/07 meds noted, no bleeding, hgb 10, no hemolysis, hgb 10.1 01/08 labs reviewed, vi rn, no major events, no bleeding, hgb lower 01/09 labs noted, no bleeding, iv rn, no major changes, plt lower 01/10 did have epistaxis overnight, no bleeding, night sweats, epistaxis better 01/12 icu, remains on vent, levo, no bleeding, meds noted 01/13 remains in icu, no bleeding, on levo, no major changes 01/14 icu, is on 1l, restarints are off, no bleeding, no night sweats 01/15 icu, meds noted, with diarrhea, rectal tube reinserted, on nc 01/16 out of icu, no bleeding, meds reviewed, cbc ad bmp pending 01/17 unable to lay still for the mri, thus ct ordered, vi rn 01/19 hgb 6.9, no bleeding, no hemolysis, ct reviewed 01/20 obtunded, meds reviewed, hgb is better, in icu Objective Objective Current Medications Medications (Trade) Dose Ordered Sig/Jesse Route PRN Reason Start Time Stop Time Status Last Admin Dose Admin Acetaminophen (Tylenol) 650 mg Q4H PRN ORAL PRNH/TEMP 01/05/20 20:15 02/04/20 20:14 01/12/20 03:10 Bisacodyl (Dulcolax) 10 mg DAILY PRN RECTAL Constipation 01/05/20 20:15 04/04/20 20:14 Chlorhexidine Gluconate (Navya-Hex 2%) 1 applic DAILY@1999 TOPIC 01/11/20 20:00 04/10/20 19:59 01/20/20 20:22 Dextrose (Dextrose 50%) 25 ml Q30M PRN IV Hypoglycemia 01/05/20 20:15 04/04/20 20:14 Dextrose (Dextrose 50%) 50 ml Q30M PRN IV Hypoglycemia 01/05/20 20:15 04/04/20 20:14 Furosemide 100 mg/ Dextrose 100 ml @ 5 mls/hr Q20H IV 01/20/20 11:30 02/19/20 11:29 01/20/20 14:56 Linaclotide (Linzess) 290 mcg BEFORE BREAKFAST ORAL 01/10/20 06:30 04/09/20 06:29 01/21/20 05:55 Metoclopramide HCl (Reglan) 10 mg EVERY 6 HOURS NG 01/19/20 12:00 02/18/20 11:59 01/21/20 05:55 Metoclopramide HCl (Reglan) 10 mg Q6H PRN IVP Nausea & Vomiting 01/16/20 13:00 02/15/20 12:59 Midodrine (Pro-Amatine) 10 mg Q8HR NG 01/20/20 22:00 04/13/20 17:59 01/21/20 05:55 Norepinephrine Bitartrate 250 ml @ 0 mls/hr Q24H PRN IV For hypotension 01/20/20 08:00 01/23/20 07:59 01/20/20 09:28 Ondansetron HCl (Zofran) 4 mg Q6H PRN IVP Nausea & Vomiting 01/10/20 06:30 02/09/20 06:29 Pantoprazole (Protonix) 40 mg EVERY 12 HOURS IVP 01/20/20 21:00 02/19/20 20:59 01/20/20 20:22 Polyethylene Glycol (Miralax) 17 gm BEDTIME NG 01/11/20 21:00 02/08/20 20:59 01/20/20 20:22 Sennosides (Senokot) 8.6 mg QHS NG 01/11/20 21:00 02/04/20 20:59 01/20/20 20:22 Vitamin D (Vitamin D) 3,000 intlu DAILY GT 01/19/20 12:00 02/18/20 11:59 01/19/20 13:00 Last 24 Hour Vital Signs Date Time Temp Pulse Resp B/P (MAP) Pulse Ox O2 Delivery O2 Flow Rate FiO2 01/21/20 05:25 113 21 40 01/21/20 04:00 108 01/21/20 04:00 110 24 129/73 (91) 100 01/21/20 03:39 110 22 40 01/21/20 03:00 108 22 126/74 (91) 100 01/21/20 02:00 111 24 136/80 (98) 100 01/21/20 01:21 104 22 40 01/21/20 01:00 108 22 125/64 (84) 100 01/21/20 00:00 98.7 107 24 113/60 (77) 100 01/21/20 00:00 110 01/21/20 00:00 2.0 40 01/20/20 23:05 102 23 40 01/20/20 23:00 104 24 117/61 (79) 100 01/20/20 22:00 104 25 126/64 (84) 100 01/20/20 21:12 112 25 40 01/20/20 21:00 Endotracheal Tube 01/20/20 21:00 117 27 115/61 (79) 100 01/20/20 20:00 2.0 40 01/20/20 20:00 110 01/20/20 20:00 99.4 114 25 124/62 (82) 100 01/20/20 19:16 117 25 40 01/20/20 19:00 113 25 142/70 (94) 100 01/20/20 18:30 99.1 113 25 138/75 (96) 100 01/20/20 18:00 109 24 135/77 (96) 100 01/20/20 17:30 111 24 136/75 (95) 100 01/20/20 17:20 109 24 40 01/20/20 17:00 95 25 113/63 (80) 100 01/20/20 16:30 96 26 115/61 (79) 100 01/20/20 16:14 103 01/20/20 16:00 Endotracheal Tube 01/20/20 16:00 98.2 95 24 113/61 (78) 100 01/20/20 15:35 100 25 40 01/20/20 15:30 97 23 114/61 (78) 100 01/20/20 15:00 97 25 113/62 (79) 100 01/20/20 14:30 98 27 111/64 (80) 100 01/20/20 14:00 99 23 122/70 (87) 100 01/20/20 13:20 107 25 40 01/20/20 13:00 103 24 111/61 (78) 100 01/20/20 12:30 96 24 119/62 (81) 100 01/20/20 12:04 97 01/20/20 12:00 98.3 97 24 116/63 (80) 100 01/20/20 12:00 Endotracheal Tube 01/20/20 11:29 94 26 50 01/20/20 11:00 96 24 104/59 (74) 100 01/20/20 10:40 94 26 107/58 (74) 100 01/20/20 10:25 94 28 112/60 (77) 100 01/20/20 10:10 92 28 108/63 (78) 100 01/20/20 09:55 90 29 114/60 (78) 100 01/20/20 09:40 98 29 94/61 (72) 100 01/20/20 09:35 98.5 100 30 85/57 (66) 100 01/20/20 09:30 99 29 81/55 (64) 100 01/20/20 09:28 79/51 01/20/20 09:25 99 27 79/51 (60) 100 01/20/20 09:20 97 25 50 01/20/20 09:00 105 23 99/61 (74) 100 01/20/20 08:30 50 01/20/20 08:00 Endotracheal Tube 01/20/20 08:00 94 30 93/61 (72) 100 01/20/20 07:50 94 01/20/20 07:20 91 25 80 01/20/20 07:01 91 36 87/53 (64) 100 01/20/20 06:45 85 20 105/63 (77) 100 01/20/20 06:43 75 34 129/64 (85) 100 01/20/20 06:40 81 21 129/64 (85) 100 01/20/20 06:40 87 21 83/50 (61) 100 01/20/20 06:30 89 21 78/51 (60) 100 01/20/20 06:28 89 26 77/49 (58) 100 01/20/20 06:15 90 20 68/46 (53) 100 01/20/20 06:05 96 22 60/43 (49) 100 01/20/20 06:02 97 21 56/24 (35) 100 01/20/20 05:30 110 29 100 01/20/20 05:15 109 17 100 01/20/20 05:00 2.0 100 01/20/20 05:00 117 33 100 01/20/20 04:55 122 35 100 01/20/20 04:32 96.7 132 16 111/90 (97) 100 01/20/20 04:30 122 01/20/20 00:00 97.7 110 25 155/78 (103) 98 01/19/20 21:00 Nasal Cannula 2.0 01/19/20 20:05 98 Nasal Cannula 2.0 28 01/19/20 20:05 103 18 98 Nasal Cannula 2.0 28 01/19/20 20:00 110 01/19/20 20:00 97.9 114 20 140/78 (98) 98 01/19/20 16:00 115 01/19/20 16:00 109 01/19/20 16:00 98.7 107 22 134/79 (97) 96 01/19/20 15:30 25 84 01/19/20 12:00 97.7 108 20 132/75 (94) 90 01/19/20 12:00 108 01/19/20 09:00 Nasal Cannula 2.0 01/19/20 08:13 94 Room Air 21 01/19/20 08:12 97 16 94 Room Air 21 01/19/20 08:00 98.1 115 16 146/88 (107) 96 01/19/20 08:00 115 Intake and Output 01/20/20 01/21/20 19:00 07:00 Intake Total 736.375 ml 415 ml Output Total 730 ml 1475 ml Balance 6.375 ml -1060 ml Free Water 100 ml IV Total 726.375 ml 55 ml Tube Feeding 10 ml 260 ml Output Urine Total 430 ml 1275 ml Stool Total 300 ml 200 ml # Bowel Movements 101 Labs Test 01/18/20 12:56 01/18/20 14:09 01/18/20 17:05 01/18/20 23:35 POC Whole Blood Glucose 110 MG/DL (74-106) 89 MG/DL (74-106) 88 MG/DL (74-106) Test 01/19/20 05:00 01/19/20 07:15 01/19/20 23:32 01/20/20 04:11 White Blood Count 6.6 K/UL (4.8-10.8) Red Blood Count 2.78 M/UL (4.70-6.10) Hemoglobin 8.0 G/DL (14.2-18.0) Hematocrit 25.1 % (42.0-52.0) Mean Corpuscular Volume 90 FL (80-99) Mean Corpuscular Hemoglobin 28.6 PG (27.0-31.0) Mean Corpuscular Hemoglobin Concent 31.8 G/DL (32.0-36.0) Red Cell Distribution Width 21.1 % (11.6-14.8) Platelet Count 80 K/UL (150-450) Mean Platelet Volume 8.3 FL (6.5-10.1) Neutrophils (%) (Auto) % (45.0-75.0) Lymphocytes (%) (Auto) % (20.0-45.0) Monocytes (%) (Auto) % (1.0-10.0) Eosinophils (%) (Auto) % (0.0-3.0) Basophils (%) (Auto) % (0.0-2.0) Differential Total Cells Counted 100 Neutrophils % (Manual) 78 % (45-75) Lymphocytes % (Manual) 15 % (20-45) Monocytes % (Manual) 4 % (1-10) Eosinophils % (Manual) 0 % (0-3) Basophils % (Manual) 0 % (0-2) Myelocytes % 1 % (0-0) Band Neutrophils 2 % (0-8) Nucleated Red Blood Cells 3 /100 WBC Platelet Estimate Decreased Platelet Morphology Normal Anisocytosis 2+ Sodium Level 141 MMOL/L (136-145) Potassium Level 3.8 MMOL/L (3.5-5.1) Chloride Level 110 MMOL/L (98-107) Carbon Dioxide Level 19 MMOL/L (21-32) Anion Gap 12 mmol/L (5-15) Blood Urea Nitrogen 14 mg/dL (7-18) Creatinine 1.2 MG/DL (0.55-1.30) Estimat Glomerular Filtration Rate > 60 mL/min (>60) Glucose Level 106 MG/DL (74-106) Uric Acid 4.1 MG/DL (2.6-7.2) Calcium Level 8.0 MG/DL (8.5-10.1) Phosphorus Level 3.7 MG/DL (2.5-4.9) Magnesium Level 1.5 MG/DL (1.8-2.4) Total Bilirubin 0.4 MG/DL (0.2-1.0) Aspartate Amino Transf (AST/SGOT) 39 U/L (15-37) Alanine Aminotransferase (ALT/SGPT) 14 U/L (12-78) Alkaline Phosphatase 126 U/L (46-116) C-Reactive Protein, Quantitative 12.3 mg/dL (0.00-0.90) Pro-B-Type Natriuretic Peptide 3412 pg/mL (0-125) Total Protein 5.1 G/DL (6.4-8.2) Albumin 2.0 G/DL (3.4-5.0) Globulin 3.1 g/dL Albumin/Globulin Ratio 0.6 (1.0-2.7) POC Whole Blood Glucose 95 MG/DL (74-106) 106 MG/DL (74-106) 126 MG/DL (74-106) Test 01/20/20 04:38 01/20/20 06:23 01/20/20 08:11 01/20/20 16:10 Arterial Blood pH 7.130 (7.350-7.450) 7.440 (7.350-7.450) Arterial Blood Partial Pressure CO2 49.1 mmHg (35.0-45.0) 22.7 mmHg (35.0-45.0) Arterial Blood Partial Pressure O2 300.7 mmHg (75.0-100.0) 333.0 mmHg (75.0-100.0) Arterial Blood HCO3 16.0 mmol/L (22.0-26.0) 15.1 mmol/L (22.0-26.0) Arterial Blood Oxygen Saturation 99.2 % (95-100) 99.3 % (95-100) Arterial Blood Base Excess -12.5 (-2-2) -8.1 (-2-2) Asael Test Positive Positive White Blood Count 7.2 K/UL (4.8-10.8) 7.7 K/UL (4.8-10.8) Red Blood Count 2.41 M/UL (4.70-6.10) 3.19 M/UL (4.70-6.10) Hemoglobin 6.9 G/DL (14.2-18.0) 9.0 G/DL (14.2-18.0) Hematocrit 22.7 % (42.0-52.0) 27.4 % (42.0-52.0) Mean Corpuscular Volume 94 FL (80-99) 86 FL (80-99) Mean Corpuscular Hemoglobin 28.7 PG (27.0-31.0) 28.3 PG (27.0-31.0) Mean Corpuscular Hemoglobin Concent 30.5 G/DL (32.0-36.0) 32.9 G/DL (32.0-36.0) Red Cell Distribution Width 22.5 % (11.6-14.8) 19.3 % (11.6-14.8) Platelet Count 68 K/UL (150-450) 84 K/UL (150-450) Mean Platelet Volume 8.0 FL (6.5-10.1) 8.0 FL (6.5-10.1) Neutrophils (%) (Auto) % (45.0-75.0) % (45.0-75.0) Lymphocytes (%) (Auto) % (20.0-45.0) % (20.0-45.0) Monocytes (%) (Auto) % (1.0-10.0) % (1.0-10.0) Eosinophils (%) (Auto) % (0.0-3.0) % (0.0-3.0) Basophils (%) (Auto) % (0.0-2.0) % (0.0-2.0) Differential Total Cells Counted 100 100 Neutrophils % (Manual) 88 % (45-75) 89 % (45-75) Lymphocytes % (Manual) 6 % (20-45) 8 % (20-45) Monocytes % (Manual) 6 % (1-10) 3 % (1-10) Eosinophils % (Manual) 0 % (0-3) 0 % (0-3) Basophils % (Manual) 0 % (0-2) 0 % (0-2) Band Neutrophils 0 % (0-8) 0 % (0-8) Nucleated Red Blood Cells 2 /100 WBC Platelet Estimate Decreased Decreased Platelet Morphology Normal Normal Polychromasia 1+ Hypochromasia 1+ 1+ Anisocytosis 3+ 1+ Reticulocyte Count 1.6 % (0.5-2.0) Sodium Level 144 MMOL/L (136-145) Potassium Level 4.6 MMOL/L (3.5-5.1) Chloride Level 113 MMOL/L (98-107) Carbon Dioxide Level 20 MMOL/L (21-32) Anion Gap 11 mmol/L (5-15) Blood Urea Nitrogen 17 mg/dL (7-18) Creatinine 1.4 MG/DL (0.55-1.30) Estimat Glomerular Filtration Rate > 60 mL/min (>60) Glucose Level 132 MG/DL (74-106) Uric Acid 3.8 MG/DL (2.6-7.2) Calcium Level 7.6 MG/DL (8.5-10.1) Phosphorus Level 5.4 MG/DL (2.5-4.9) Magnesium Level 1.8 MG/DL (1.8-2.4) Total Bilirubin 0.2 MG/DL (0.2-1.0) Aspartate Amino Transf (AST/SGOT) 151 U/L (15-37) Alanine Aminotransferase (ALT/SGPT) 58 U/L (12-78) Alkaline Phosphatase 103 U/L (46-116) Total Protein 4.5 G/DL (6.4-8.2) Albumin 1.7 G/DL (3.4-5.0) Globulin 2.8 g/dL Albumin/Globulin Ratio 0.6 (1.0-2.7) Prostate Specific Antigen 2741.31 ng/mL (0.13-4.0) Test 01/20/20 18:17 01/21/20 04:30 POC Whole Blood Glucose 87 MG/DL (74-106) White Blood Count 7.1 K/UL (4.8-10.8) Red Blood Count 3.22 M/UL (4.70-6.10) Hemoglobin 9.3 G/DL (14.2-18.0) Hematocrit 28.7 % (42.0-52.0) Mean Corpuscular Volume 89 FL (80-99) Mean Corpuscular Hemoglobin 28.8 PG (27.0-31.0) Mean Corpuscular Hemoglobin Concent 32.3 G/DL (32.0-36.0) Red Cell Distribution Width 19.8 % (11.6-14.8) Platelet Count 88 K/UL (150-450) Mean Platelet Volume 7.2 FL (6.5-10.1) Neutrophils (%) (Auto) % (45.0-75.0) Lymphocytes (%) (Auto) % (20.0-45.0) Monocytes (%) (Auto) % (1.0-10.0) Eosinophils (%) (Auto) % (0.0-3.0) Basophils (%) (Auto) % (0.0-2.0) Sodium Level 145 MMOL/L (136-145) Potassium Level 3.3 MMOL/L (3.5-5.1) Chloride Level 111 MMOL/L (98-107) Carbon Dioxide Level 22 MMOL/L (21-32) Anion Gap 12 mmol/L (5-15) Blood Urea Nitrogen 20 mg/dL (7-18) Creatinine 1.6 MG/DL (0.55-1.30) Estimat Glomerular Filtration Rate 51.9 mL/min (>60) Glucose Level 91 MG/DL (74-106) Uric Acid 4.6 MG/DL (2.6-7.2) Calcium Level 7.5 MG/DL (8.5-10.1) Phosphorus Level 3.3 MG/DL (2.5-4.9) Magnesium Level 1.3 MG/DL (1.8-2.4) Total Bilirubin 0.5 MG/DL (0.2-1.0) Gamma Glutamyl Transpeptidase 87 U/L (5-85) Aspartate Amino Transf (AST/SGOT) 110 U/L (15-37) Alanine Aminotransferase (ALT/SGPT) 46 U/L (12-78) Alkaline Phosphatase 122 U/L (46-116) Total Creatine Kinase 193 U/L (26-308) Troponin I 0.062 ng/mL (0.000-0.056) C-Reactive Protein, Quantitative 7.3 mg/dL (0.00-0.90) Pro-B-Type Natriuretic Peptide 3910 pg/mL (0-125) Total Protein 5.0 G/DL (6.4-8.2) Albumin 1.9 G/DL (3.4-5.0) Globulin 3.1 g/dL Albumin/Globulin Ratio 0.6 (1.0-2.7) Height (Feet): 6 Height (Inches): 0.00 Weight (Pounds): 150 Objective PE: Vitals: reviewed General Appearance: NAD HEENT: normocephalic, atraumatic Neck: non-tender, normal alignment Respiratory/Chest: nromal breath sounds bilaterally Cardiovascular/Chest: normal peripheral pulses, normal rate Abdomen: normal bowel sounds, soft, nontender Extremities: normal range of motion Samuel Son MD Jan 21, 2020 07:08
[2020-01-21] MEDS: Pantoprazole Inj IVP SCH ×2 (08:32→20:23)
[2020-01-21] MEDS: Vitamin D 1000 IU Tab GT SCH (08:33)
--- NOTE | 2020-01-21 09:09 | Infectious Diseases Prog Note ---
Assessment/Plan 69yo M with: Shock- likely combination septic and metabolic derangements- SP Probable UTI -01/10 u/a wbc 60-80, nit neg, leuk +3; ucx Neg -Bcx NTD Probable PNA -01/12 CXR: No significant change in bilateral patchy pulmondary opacities, concerning for pneumonia versus edemaq. Small bilateral pleural effusions. -01/10 CXR: Bilateral interstitial and airspace infiltrates versus edema persists. sp cx MRSA (S Vancomycin, bactrim, tetracycline) COVID19 neg -01/04 rapid COVID PCR neg x1 influenza PCR neg CXR: Mild interstitial vascular prominence. No focal infiltrate or consolidation. 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 Etiology not demonstrated. Empty bladder with a Mathew catheter. 3 hypoechoic lesions within the pancreatic head and body, each measuring about 5 mm. Appearance nonspecific. Bilateral pleural effusions. Echogenic liver, consistent with hepatocellular disease. Surface likely nodularity raises concern for cirrhosis. Gallbladder sludge. Negative for dilated bile ducts. Probable nonobstructive left intrarenal calculi. Multiple hepatic cysts Acute on chronic encephalopathy -CT head: 1. Markedly limited, near nondiagnostic evaluation due to motion artifact. Grossly, age-related changes and small vessel disease of aging are noted. Again grossly, no acute intracranial pathology is detected. If there is a high degree of concern or if there is concern for subtle abnormalities, magnetic resonance imaging of the brain with diffusion-weighted sequences should be performed, due to the markedly limited nature of the current study. Close clinical correlation is necessary. HTN COPD DM2 paraplegia Dementia non verbal [place] resident ([facility]) Plan: Monitor off abx -01/18 SP vanco IV #7 -01/16 SP Cefepime #4 -01/13 SP ZOsyn #4 -01/06 SP Ceftriaxone #2 -01/04 Sp IV Vancomycin x1, Cefepime x1 -f/u cx -Monitor CBC/CMP, temperatures -Renal, cards f/u -aspiration precautions D/w RN Thank you for consulting [facility]. Will continue to follow along with you. Subjective Allergies: Coded Allergies: No Known Allergies (Unverified , 03/18/19) AF Off abx No leukocytosis NAD Stable on vent Will try to wean tomorrow Objective Last 24 Hour Vital Signs Date Time Temp Pulse Resp B/P (MAP) Pulse Ox O2 Delivery O2 Flow Rate FiO2 01/21/20 08:37 101 22 40 01/21/20 07:21 102 23 40 01/21/20 05:25 113 21 40 01/21/20 04:00 108 01/21/20 04:00 110 24 129/73 (91) 100 01/21/20 03:39 110 22 40 01/21/20 03:00 108 22 126/74 (91) 100 01/21/20 02:00 111 24 136/80 (98) 100 01/21/20 01:21 104 22 40 01/21/20 01:00 108 22 125/64 (84) 100 01/21/20 00:00 98.7 107 24 113/60 (77) 100 01/21/20 00:00 110 01/21/20 00:00 2.0 40 01/20/20 23:05 102 23 40 01/20/20 23:00 104 24 117/61 (79) 100 01/20/20 22:00 104 25 126/64 (84) 100 01/20/20 21:12 112 25 40 01/20/20 21:00 Endotracheal Tube 01/20/20 21:00 117 27 115/61 (79) 100 01/20/20 20:00 2.0 40 01/20/20 20:00 110 01/20/20 20:00 99.4 114 25 124/62 (82) 100 01/20/20 19:16 117 25 40 01/20/20 19:00 113 25 142/70 (94) 100 01/20/20 18:30 99.1 113 25 138/75 (96) 100 01/20/20 18:00 109 24 135/77 (96) 100 01/20/20 17:30 111 24 136/75 (95) 100 01/20/20 17:20 109 24 40 01/20/20 17:00 95 25 113/63 (80) 100 01/20/20 16:30 96 26 115/61 (79) 100 01/20/20 16:14 103 01/20/20 16:00 Endotracheal Tube 01/20/20 16:00 98.2 95 24 113/61 (78) 100 01/20/20 15:35 100 25 40 01/20/20 15:30 97 23 114/61 (78) 100 01/20/20 15:00 97 25 113/62 (79) 100 01/20/20 14:30 98 27 111/64 (80) 100 01/20/20 14:00 99 23 122/70 (87) 100 01/20/20 13:20 107 25 40 01/20/20 13:00 103 24 111/61 (78) 100 01/20/20 12:30 96 24 119/62 (81) 100 01/20/20 12:04 97 01/20/20 12:00 98.3 97 24 116/63 (80) 100 01/20/20 12:00 Endotracheal Tube 01/20/20 11:29 94 26 50 01/20/20 11:00 96 24 104/59 (74) 100 01/20/20 10:40 94 26 107/58 (74) 100 01/20/20 10:25 94 28 112/60 (77) 100 01/20/20 10:10 92 28 108/63 (78) 100 01/20/20 09:55 90 29 114/60 (78) 100 01/20/20 09:40 98 29 94/61 (72) 100 01/20/20 09:35 98.5 100 30 85/57 (66) 100 01/20/20 09:30 99 29 81/55 (64) 100 01/20/20 09:28 79/51 01/20/20 09:25 99 27 79/51 (60) 100 01/20/20 09:20 97 25 50 Height (Feet): 6 Height (Inches): 0.00 Weight (Pounds): 150 Gen: NAD in bed HEENT: NCAT CV: RRR Pulm: BL chest rise on vent Abd: Soft, Non-distended Ext: No c/c/e Neuro: Awake Laboratory Tests Test 01/20/20 16:10 01/20/20 18:17 01/21/20 04:30 01/21/20 07:49 White Blood Count 7.7 K/UL (4.8-10.8) 7.1 K/UL (4.8-10.8) Red Blood Count 3.19 M/UL (4.70-6.10) L 3.22 M/UL (4.70-6.10) L Hemoglobin 9.0 G/DL (14.2-18.0) #L 9.3 G/DL (14.2-18.0) L Hematocrit 27.4 % (42.0-52.0) L 28.7 % (42.0-52.0) L Mean Corpuscular Volume 86 FL (80-99) # 89 FL (80-99) Mean Corpuscular Hemoglobin 28.3 PG (27.0-31.0) 28.8 PG (27.0-31.0) Mean Corpuscular Hemoglobin Concent 32.9 G/DL (32.0-36.0) 32.3 G/DL (32.0-36.0) Red Cell Distribution Width 19.3 % (11.6-14.8) H 19.8 % (11.6-14.8) H Platelet Count 84 K/UL (150-450) L 88 K/UL (150-450) L Mean Platelet Volume 8.0 FL (6.5-10.1) 7.2 FL (6.5-10.1) Neutrophils (%) (Auto) % (45.0-75.0) % (45.0-75.0) Lymphocytes (%) (Auto) % (20.0-45.0) % (20.0-45.0) Monocytes (%) (Auto) % (1.0-10.0) % (1.0-10.0) Eosinophils (%) (Auto) % (0.0-3.0) % (0.0-3.0) Basophils (%) (Auto) % (0.0-2.0) % (0.0-2.0) Differential Total Cells Counted 100 Neutrophils % (Manual) 89 % (45-75) H Lymphocytes % (Manual) 8 % (20-45) L Monocytes % (Manual) 3 % (1-10) Eosinophils % (Manual) 0 % (0-3) Basophils % (Manual) 0 % (0-2) Band Neutrophils 0 % (0-8) Platelet Estimate Decreased L Platelet Morphology Normal Hypochromasia 1+ Anisocytosis 1+ POC Whole Blood Glucose 87 MG/DL (74-106) Sodium Level 145 MMOL/L (136-145) Potassium Level 3.3 MMOL/L (3.5-5.1) L Chloride Level 111 MMOL/L (98-107) H Carbon Dioxide Level 22 MMOL/L (21-32) Anion Gap 12 mmol/L (5-15) Blood Urea Nitrogen 20 mg/dL (7-18) H Creatinine 1.6 MG/DL (0.55-1.30) H Estimat Glomerular Filtration Rate 51.9 mL/min (>60) Glucose Level 91 MG/DL (74-106) Uric Acid 4.6 MG/DL (2.6-7.2) Calcium Level 7.5 MG/DL (8.5-10.1) L Phosphorus Level 3.3 MG/DL (2.5-4.9) Magnesium Level 1.3 MG/DL (1.8-2.4) L Total Bilirubin 0.5 MG/DL (0.2-1.0) Gamma Glutamyl Transpeptidase 87 U/L (5-85) H Aspartate Amino Transf (AST/SGOT) 110 U/L (15-37) H Alanine Aminotransferase (ALT/SGPT) 46 U/L (12-78) Alkaline Phosphatase 122 U/L (46-116) H Total Creatine Kinase 193 U/L (26-308) Troponin I 0.062 ng/mL (0.000-0.056) C-Reactive Protein, Quantitative 7.3 mg/dL (0.00-0.90) H Pro-B-Type Natriuretic Peptide 3910 pg/mL (0-125) H Total Protein 5.0 G/DL (6.4-8.2) L Albumin 1.9 G/DL (3.4-5.0) L Globulin 3.1 g/dL Albumin/Globulin Ratio 0.6 (1.0-2.7) L Arterial Blood pH 7.475 (7.350-7.450) Arterial Blood Partial Pressure CO2 23.5 mmHg (35.0-45.0) *L Arterial Blood Partial Pressure O2 132.8 mmHg (75.0-100.0) H Arterial Blood HCO3 16.9 mmol/L (22.0-26.0) *L Arterial Blood Oxygen Saturation 98.3 % (95-100) Arterial Blood Base Excess -5.4 (-2-2) L Asael Test Positive Current Medications Medications (Trade) Dose Ordered Sig/Jesse Route PRN Reason Start Time Stop Time Status Last Admin Dose Admin Acetaminophen (Tylenol) 650 mg Q4H PRN ORAL PRNH/TEMP 01/05/20 20:15 02/04/20 20:14 01/12/20 03:10 Bisacodyl (Dulcolax) 10 mg DAILY PRN RECTAL Constipation 01/05/20 20:15 04/04/20 20:14 Chlorhexidine Gluconate (Navya-Hex 2%) 1 applic DAILY@2000 TOPIC 01/11/20 20:00 04/10/20 19:59 01/20/20 20:22 Dextrose (Dextrose 50%) 25 ml Q30M PRN IV Hypoglycemia 01/05/20 20:15 04/04/20 20:14 Dextrose (Dextrose 50%) 50 ml Q30M PRN IV Hypoglycemia 01/05/20 20:15 04/04/20 20:14 Furosemide 100 mg/ Dextrose 100 ml @ 5 mls/hr Q20H IV 01/20/20 11:30 02/19/20 11:29 01/21/20 08:33 Linaclotide (Linzess) 290 mcg BEFORE BREAKFAST ORAL 01/10/20 06:30 04/09/20 06:29 01/21/20 05:55 Magnesium Sulfate 100 ml @ 100 mls/hr Q1H IVPB 01/21/20 10:00 01/21/20 13:59 Metoclopramide HCl (Reglan) 10 mg EVERY 6 HOURS NG 01/19/20 12:00 02/18/20 11:59 01/21/20 05:55 Metoclopramide HCl (Reglan) 10 mg Q6H PRN IVP Nausea & Vomiting 01/16/20 13:00 02/15/20 12:59 Midodrine (Pro-Amatine) 10 mg Q8HR NG 01/20/20 22:00 04/13/20 17:59 01/21/20 05:55 Norepinephrine Bitartrate 250 ml @ 0 mls/hr Q24H PRN IV For hypotension 01/20/20 08:00 01/23/20 07:59 01/20/20 09:28 Ondansetron HCl (Zofran) 4 mg Q6H PRN IVP Nausea & Vomiting 01/10/20 06:30 02/09/20 06:29 Pantoprazole (Protonix) 40 mg EVERY 12 HOURS IVP 01/20/20 21:00 02/19/20 20:59 01/21/20 08:32 Polyethylene Glycol (Miralax) 17 gm BEDTIME NG 01/11/20 21:00 02/08/20 20:59 01/20/20 20:22 Potassium Chloride 100 ml @ 50 mls/hr ONCE IVPB 01/21/20 11:00 04/20/20 10:59 Sennosides (Senokot) 8.6 mg QHS NG 01/11/20 21:00 02/04/20 20:59 01/20/20 20:22 Vitamin D (Vitamin D) 3,000 intlu DAILY GT 01/19/20 12:00 02/18/20 11:59 01/21/20 08:33 Nayana Ochoa M.D. Jan 21, 2020 09:09
--- NOTE | 2020-01-21 10:21 | Nephrology Progress Note ---
Assessment/Plan Problem List: (1) ARF (acute renal failure) (2) Hypernatremia (3) Hypovolemic shock (4) Altered level of consciousness (5) Hypercalcemia (6) Hyperuricemia (7) Pelvic mass Assessment: Prostate cancer Assessment Acute renal failure Possible underlying chronic kidney failure Severe dehydration Hypernatremia indicative of severe water deficit Severe hyperuricemia, partly due to dehydration and renal failure Acute metabolic and toxic encephalopathy Mild, malnutrition Anemia Lactic acid, possible sepsis Hypercalcemia Plan January 20: Patient in ICU. Intubated. Full code. Has advanced prostate cancer. On IV Lasix drip. Low magnesium and low phosphorus and low potassium noted and addressed. Continue per consultants. January 19: Patient in ICU. Intubated. Was coded yesterday. Labs reviewed. Medication list reviewed and adjusted. Continue per consultants. Patient full code. Prognosis poor. PSA over 2700 January 18: Labs reviewed. IV fluid discontinued. IV calcium dose decreased. Midodrine dose decreased. Reglan and Protonix changed to GT route. Vitamin D initiated. Continue to monitor renal parameters and calcium level. January 17: Labs reviewed. Abnormal electrolyte addressed. Continue per consultants. January 16: Patient now in telemetry. Labs pending. Continue to monitor renal parameters. Continue per consultants. January 15: Still in ICU. Doing well post extubation. Renal parameters improving. Not requiring any more dialysis treatment after the first dialysis treatment. Medications reviewed. Continue per consultants. January 14: Remains in ICU. Tolerating extubation. Labs reviewed. Abnormal electrolytes addressed. Serum creatinine lowering. Continue per current management. Stop Phos binders. Increase calcium IV. January 13: In ICU. Now extubated. Only dialyzed once. Urine output maintained. Serum creatinine down to 2.5. Patient has NG tube. Continue to monitor renal parameters. Continue per consultants. Abnormal electrolytes addressed. January 12: Remains in ICU. Intubated. Transfused yesterday. Abnormal electrolytes addressed. Dialyzed once January 10. Serum creatinine stable. Will adjust IV fluid. Monitor renal parameters. Dialysis as needed. Calcium gluconate IV ordered. Ionized calcium level ordered with tomorrow's labs. January 11: Patient in ICU. Intubated. On Levophed. Hemoglobin low. Due for transfusion. Electrolyte abnormalities noted and addressed. Patient was dialyzed yesterday. Will check lab tomorrow. Dialysis as needed. Discussed with SELIN Srivastava. January 10: Patient is doing poorly. Blood pressure low. ABG abnormal with metabolic acidosis. IV sodium bicarb given. Serum creatinine reno. Patient has acute renal failure. Nontunneled dialysis catheter replacement ordered.. Patient need life saving dialysis treatment SRINIVAS. January 09: Labs reviewed. IV D5 and a half with sodium bicarb initiated. Serum creatinine higher. Continue to monitor renal parameters. NG feeding was changed to Nepro. Patient remains full code. Poor prognosis. January 08: Labs reviewed. IV D5W discontinued. 500 cc 3% saline ordered. NG tube for feeding and for medications. Allopurinol dose increased. Continue to monitor renal parameters serum calcium and phosphorus. January 07: Labs reviewed. Serum calcium remains elevated. Uric acid still elevated. Will give pamidronate 60 mg IV piggyback once for hypercalcemia. Continue to monitor renal parameters. Continue D5W 150 cc an hour. Start Bicitra 30 cc p.o. every 6 hours. Add allopurinol D5W IV hydration Albumin bolus N.p.o. until able to take p.o. Antibiotics Monitor renal parameters monitor calcium, monitor uric acid Subjective ROS Limited/Unobtainable: Yes Objective Objective Last 24 Hour Vital Signs Date Time Temp Pulse Resp B/P (MAP) Pulse Ox O2 Delivery O2 Flow Rate FiO2 01/21/20 08:37 101 22 40 01/21/20 07:21 102 23 40 01/21/20 05:25 113 21 40 01/21/20 04:00 108 01/21/20 04:00 110 24 129/73 (91) 100 01/21/20 03:39 110 22 40 01/21/20 03:00 108 22 126/74 (91) 100 01/21/20 02:00 111 24 136/80 (98) 100 01/21/20 01:21 104 22 40 01/21/20 01:00 108 22 125/64 (84) 100 01/21/20 00:00 98.7 107 24 113/60 (77) 100 01/21/20 00:00 110 01/21/20 00:00 2.0 40 01/20/20 23:05 102 23 40 01/20/20 23:00 104 24 117/61 (79) 100 01/20/20 22:00 104 25 126/64 (84) 100 01/20/20 21:12 112 25 40 01/20/20 21:00 Endotracheal Tube 01/20/20 21:00 117 27 115/61 (79) 100 01/20/20 20:00 2.0 40 01/20/20 20:00 110 01/20/20 20:00 99.4 114 25 124/62 (82) 100 01/20/20 19:16 117 25 40 01/20/20 19:00 113 25 142/70 (94) 100 01/20/20 18:30 99.1 113 25 138/75 (96) 100 01/20/20 18:00 109 24 135/77 (96) 100 01/20/20 17:30 111 24 136/75 (95) 100 01/20/20 17:20 109 24 40 01/20/20 17:00 95 25 113/63 (80) 100 01/20/20 16:30 96 26 115/61 (79) 100 01/20/20 16:14 103 01/20/20 16:00 Endotracheal Tube 01/20/20 16:00 98.2 95 24 113/61 (78) 100 01/20/20 15:35 100 25 40 01/20/20 15:30 97 23 114/61 (78) 100 01/20/20 15:00 97 25 113/62 (79) 100 01/20/20 14:30 98 27 111/64 (80) 100 01/20/20 14:00 99 23 122/70 (87) 100 01/20/20 13:20 107 25 40 01/20/20 13:00 103 24 111/61 (78) 100 01/20/20 12:30 96 24 119/62 (81) 100 01/20/20 12:04 97 01/20/20 12:00 98.3 97 24 116/63 (80) 100 01/20/20 12:00 Endotracheal Tube 01/20/20 11:29 94 26 50 01/20/20 11:00 96 24 104/59 (74) 100 01/20/20 10:40 94 26 107/58 (74) 100 01/20/20 10:25 94 28 112/60 (77) 100 Intake and Output 01/20/20 01/21/20 19:00 07:00 Intake Total 736.375 ml 420 ml Output Total 730 ml 1475 ml Balance 6.375 ml -1055 ml Free Water 100 ml IV Total 726.375 ml 60 ml Tube Feeding 10 ml 260 ml Output Urine Total 430 ml 1275 ml Stool Total 300 ml 200 ml # Bowel Movements 101 Laboratory Tests 01/20/20 16:10: White Blood Count 7.7, Red Blood Count 3.19L, Hemoglobin 9.0#L, Hematocrit 27.4L , Mean Corpuscular Volume 86#, Mean Corpuscular Hemoglobin 28.3, Mean Corpuscular Hemoglobin Concent 32.9, Red Cell Distribution Width 19.3H, Platelet Count 84L, Mean Platelet Volume 8.0, Neutrophils (%) (Auto) , Lymphocytes (%) (Auto) , Monocytes (%) (Auto) , Eosinophils (%) (Auto) , Basophils (%) (Auto) , Differential Total Cells Counted 100, Neutrophils % (Manual) 89H, Lymphocytes % (Manual) 8L, Monocytes % (Manual) 3, Eosinophils % (Manual) 0, Basophils % (Manual) 0, Band Neutrophils 0, Platelet Estimate DecreasedL, Platelet Morphology Normal, Hypochromasia 1+, Anisocytosis 1+ 01/20/20 18:17: POC Whole Blood Glucose 87 01/21/20 04:30: White Blood Count 7.1, Red Blood Count 3.22L, Hemoglobin 9.3L, Hematocrit 28.7L, Mean Corpuscular Volume 89, Mean Corpuscular Hemoglobin 28.8, Mean Corpuscular Hemoglobin Concent 32.3, Red Cell Distribution Width 19.8H, Platelet Count 88L, Mean Platelet Volume 7.2, Neutrophils (%) (Auto) , Lymphocytes (%) (Auto) , Monocytes (%) (Auto) , Eosinophils (%) (Auto) , Basophils (%) (Auto) , Sodium Level 145, Potassium Level 3.3L, Chloride Level 111H, Carbon Dioxide Level 22, Anion Gap 12, Blood Urea Nitrogen 20H, Creatinine 1.6H, Estimat Glomerular Filtration Rate 51.9, Glucose Level 91, Uric Acid 4.6, Calcium Level 7.5L, Phosphorus Level 3.3, Magnesium Level 1.3L, Total Bilirubin 0.5, Gamma Glutamyl Transpeptidase 87H, Aspartate Amino Transf (AST/SGOT) 110H, Alanine Aminotransferase (ALT/SGPT) 46, Alkaline Phosphatase 122H, Total Creatine Kinase 193, Troponin I 0.062H, C-Reactive Protein, Quantitative 7.3H, Pro-B-Type Natriuretic Peptide 3910H, Total Protein 5.0L, Albumin 1.9L, Globulin 3.1, Albumin/Globulin Ratio 0.6L 01/21/20 07:49: Arterial Blood pH 7.475H, Arterial Blood Partial Pressure CO2 23.5*L, Arterial Blood Partial Pressure O2 132.8H, Arterial Blood HCO3 16.9*L, Arterial Blood Oxygen Saturation 98.3, Arterial Blood Base Excess -5.4L, Asael Test Positive Height (Feet): 6 Height (Inches): 0.00 Weight (Pounds): 150 General Appearance: no apparent distress, lethargic EENT: other - Intubated on ventilator Cardiovascular: tachycardia Respiratory/Chest: decreased breath sounds Abdomen: distended Dhiraj Biswas MD Jan 21, 2020 10:21
--- NOTE | 2020-01-21 10:33 | General Progress Note ---
Subjective Constitutional: Reports: weakness Allergies: Coded Allergies: No Known Allergies (Unverified , 03/18/19) All Systems: reviewed and negative except above Subjective intubated ng in icu Objective Last 24 Hour Vital Signs Date Time Temp Pulse Resp B/P (MAP) Pulse Ox O2 Delivery O2 Flow Rate FiO2 01/21/20 08:37 101 22 40 01/21/20 07:21 102 23 40 01/21/20 05:25 113 21 40 01/21/20 04:00 108 01/21/20 04:00 110 24 129/73 (91) 100 01/21/20 03:39 110 22 40 01/21/20 03:00 108 22 126/74 (91) 100 01/21/20 02:00 111 24 136/80 (98) 100 01/21/20 01:21 104 22 40 01/21/20 01:00 108 22 125/64 (84) 100 01/21/20 00:00 98.7 107 24 113/60 (77) 100 01/21/20 00:00 110 01/21/20 00:00 2.0 40 01/20/20 23:05 102 23 40 01/20/20 23:00 104 24 117/61 (79) 100 01/20/20 22:00 104 25 126/64 (84) 100 01/20/20 21:12 112 25 40 01/20/20 21:00 Endotracheal Tube 01/20/20 21:00 117 27 115/61 (79) 100 01/20/20 20:00 2.0 40 01/20/20 20:00 110 01/20/20 20:00 99.4 114 25 124/62 (82) 100 01/20/20 19:16 117 25 40 01/20/20 19:00 113 25 142/70 (94) 100 01/20/20 18:30 99.1 113 25 138/75 (96) 100 01/20/20 18:00 109 24 135/77 (96) 100 01/20/20 17:30 111 24 136/75 (95) 100 01/20/20 17:20 109 24 40 01/20/20 17:00 95 25 113/63 (80) 100 01/20/20 16:30 96 26 115/61 (79) 100 01/20/20 16:14 103 01/20/20 16:00 Endotracheal Tube 01/20/20 16:00 98.2 95 24 113/61 (78) 100 01/20/20 15:35 100 25 40 01/20/20 15:30 97 23 114/61 (78) 100 01/20/20 15:00 97 25 113/62 (79) 100 01/20/20 14:30 98 27 111/64 (80) 100 01/20/20 14:00 99 23 122/70 (87) 100 01/20/20 13:20 107 25 40 01/20/20 13:00 103 24 111/61 (78) 100 01/20/20 12:30 96 24 119/62 (81) 100 01/20/20 12:04 97 01/20/20 12:00 98.3 97 24 116/63 (80) 100 01/20/20 12:00 Endotracheal Tube 01/20/20 11:29 94 26 50 01/20/20 11:00 96 24 104/59 (74) 100 01/20/20 10:40 94 26 107/58 (74) 100 Intake and Output 01/20/20 01/21/20 19:00 07:00 Intake Total 736.375 ml 420 ml Output Total 730 ml 1475 ml Balance 6.375 ml -1055 ml Free Water 100 ml IV Total 726.375 ml 60 ml Tube Feeding 10 ml 260 ml Output Urine Total 430 ml 1275 ml Stool Total 300 ml 200 ml # Bowel Movements 101 Laboratory Tests 01/20/20 16:10: White Blood Count 7.7, Red Blood Count 3.19L, Hemoglobin 9.0#L, Hematocrit 27.4L , Mean Corpuscular Volume 86#, Mean Corpuscular Hemoglobin 28.3, Mean Corpuscular Hemoglobin Concent 32.9, Red Cell Distribution Width 19.3H, Platelet Count 84L, Mean Platelet Volume 8.0, Neutrophils (%) (Auto) , Lymphocytes (%) (Auto) , Monocytes (%) (Auto) , Eosinophils (%) (Auto) , Basophils (%) (Auto) , Differential Total Cells Counted 100, Neutrophils % (Manual) 89H, Lymphocytes % (Manual) 8L, Monocytes % (Manual) 3, Eosinophils % (Manual) 0, Basophils % (Manual) 0, Band Neutrophils 0, Platelet Estimate DecreasedL, Platelet Morphology Normal, Hypochromasia 1+, Anisocytosis 1+ 01/20/20 18:17: POC Whole Blood Glucose 87 01/21/20 04:30: White Blood Count 7.1, Red Blood Count 3.22L, Hemoglobin 9.3L, Hematocrit 28.7L, Mean Corpuscular Volume 89, Mean Corpuscular Hemoglobin 28.8, Mean Corpuscular Hemoglobin Concent 32.3, Red Cell Distribution Width 19.8H, Platelet Count 88L, Mean Platelet Volume 7.2, Neutrophils (%) (Auto) , Lymphocytes (%) (Auto) , Monocytes (%) (Auto) , Eosinophils (%) (Auto) , Basophils (%) (Auto) , Sodium Level 145, Potassium Level 3.3L, Chloride Level 111H, Carbon Dioxide Level 22, Anion Gap 12, Blood Urea Nitrogen 20H, Creatinine 1.6H, Estimat Glomerular Filtration Rate 51.9, Glucose Level 91, Uric Acid 4.6, Calcium Level 7.5L, Phosphorus Level 3.3, Magnesium Level 1.3L, Total Bilirubin 0.5, Gamma Glutamyl Transpeptidase 87H, Aspartate Amino Transf (AST/SGOT) 110H, Alanine Aminotransferase (ALT/SGPT) 46, Alkaline Phosphatase 122H, Total Creatine Kinase 193, Troponin I 0.062H, C-Reactive Protein, Quantitative 7.3H, Pro-B-Type Natriuretic Peptide 3910H, Total Protein 5.0L, Albumin 1.9L, Globulin 3.1, Albumin/Globulin Ratio 0.6L 01/21/20 07:49: Arterial Blood pH 7.475H, Arterial Blood Partial Pressure CO2 23.5*L, Arterial Blood Partial Pressure O2 132.8H, Arterial Blood HCO3 16.9*L, Arterial Blood Oxygen Saturation 98.3, Arterial Blood Base Excess -5.4L, Asael Test Positive Height (Feet): 6 Height (Inches): 0.00 Weight (Pounds): 150 General Appearance: lethargic EENT: normal ENT inspection Neck: normal alignment Cardiovascular: normal peripheral pulses, normal rate, regular rhythm Respiratory/Chest: chest wall non-tender, lungs clear, normal breath sounds Abdomen: normal bowel sounds, non tender, soft Extremities: normal inspection Edema: no edema noted Arm (L), no edema noted Arm (R), no edema noted Leg (L), no edema noted Leg (R), no edema noted Pedal (L), no edema noted Pedal (R), no edema noted Generalized Neurologic: motor weakness Skin: normal pigmentation, warm/dry Assessment/Plan Problem List: (1) Anemia ICD Codes: D64.9 - Anemia, unspecified SNOMED: 758042739 (2) Paraplegia ICD Codes: G82.20 - Paraplegia, unspecified SNOMED: 04739405 (3) Diabetes ICD Codes: E11.9 - Type 2 diabetes mellitus without complications SNOMED: 99937903 (4) Weak ICD Codes: R53.1 - Weakness SNOMED: 82686197 (5) HTN (hypertension) ICD Codes: I10 - Essential (primary) hypertension SNOMED: 48089675 (6) ARF (acute renal failure) ICD Codes: N17.9 - Acute kidney failure, unspecified SNOMED: 31420126 (7) Altered level of consciousness ICD Codes: R40.4 - Transient alteration of awareness SNOMED: 2742485 (8) Dehydration ICD Codes: E86.0 - Dehydration SNOMED: 49714807 (9) Hypernatremia ICD Codes: E87.0 - Hyperosmolality and hypernatremia SNOMED: 519904670 Status: unchanged Assessment/Plan: vent abx ivf cbc bmp am Farrukh Ríos DO Jan 21, 2020 10:33
--- NOTE | 2020-01-21 10:47 | Pulmonology Progress Note ---
Subjective ROS Limited/Unobtainable: Yes Interval Events: remains intubated in ICU Constitutional: Reports: no symptoms HEENT: Repors: no symptoms Respiratory: Reports: no symptoms Cardiovascular: Reports: no symptoms Gastrointestinal/Abdominal: Reports: no symptoms Genitourinary: Reports: no symptoms Allergies: Coded Allergies: No Known Allergies (Unverified , 03/18/19) All Systems: reviewed and negative except above Objective Last 24 Hour Vital Signs Date Time Temp Pulse Resp B/P (MAP) Pulse Ox O2 Delivery O2 Flow Rate FiO2 01/21/20 10:30 96 17 94/62 (73) 100 01/21/20 10:18 101 21 101/61 (74) 100 01/21/20 10:15 89 20 85/50 (62) 100 01/21/20 10:00 94 22 107/63 (78) 100 01/21/20 09:45 95 20 110/62 (78) 100 01/21/20 09:30 103 22 103/58 (73) 100 01/21/20 09:15 96 21 113/69 (84) 100 01/21/20 09:00 101 22 111/65 (80) 100 01/21/20 08:45 99 22 105/66 (79) 100 01/21/20 08:37 101 22 40 01/21/20 08:30 96 21 102/56 (71) 100 01/21/20 08:15 96 22 111/57 (75) 100 01/21/20 08:00 40 01/21/20 08:00 100 01/21/20 08:00 98.3 94 21 95/51 (66) 100 01/21/20 07:21 102 23 40 01/21/20 05:25 113 21 40 01/21/20 04:00 108 01/21/20 04:00 110 24 129/73 (91) 100 01/21/20 03:39 110 22 40 01/21/20 03:00 108 22 126/74 (91) 100 01/21/20 02:00 111 24 136/80 (98) 100 01/21/20 01:21 104 22 40 01/21/20 01:00 108 22 125/64 (84) 100 01/21/20 00:00 98.7 107 24 113/60 (77) 100 01/21/20 00:00 110 01/21/20 00:00 2.0 40 01/20/20 23:05 102 23 40 01/20/20 23:00 104 24 117/61 (79) 100 01/20/20 22:00 104 25 126/64 (84) 100 01/20/20 21:12 112 25 40 01/20/20 21:00 Endotracheal Tube 01/20/20 21:00 117 27 115/61 (79) 100 01/20/20 20:00 2.0 40 01/20/20 20:00 110 01/20/20 20:00 99.4 114 25 124/62 (82) 100 01/20/20 19:16 117 25 40 01/20/20 19:00 113 25 142/70 (94) 100 01/20/20 18:30 99.1 113 25 138/75 (96) 100 01/20/20 18:00 109 24 135/77 (96) 100 01/20/20 17:30 111 24 136/75 (95) 100 01/20/20 17:20 109 24 40 01/20/20 17:00 95 25 113/63 (80) 100 01/20/20 16:30 96 26 115/61 (79) 100 01/20/20 16:14 103 01/20/20 16:00 Endotracheal Tube 01/20/20 16:00 98.2 95 24 113/61 (78) 100 01/20/20 15:35 100 25 40 01/20/20 15:30 97 23 114/61 (78) 100 01/20/20 15:00 97 25 113/62 (79) 100 01/20/20 14:30 98 27 111/64 (80) 100 01/20/20 14:00 99 23 122/70 (87) 100 01/20/20 13:20 107 25 40 01/20/20 13:00 103 24 111/61 (78) 100 01/20/20 12:30 96 24 119/62 (81) 100 01/20/20 12:04 97 01/20/20 12:00 98.3 97 24 116/63 (80) 100 01/20/20 12:00 Endotracheal Tube 01/20/20 11:29 94 26 50 01/20/20 11:00 96 24 104/59 (74) 100 Intake and Output 01/20/20 01/21/20 19:00 07:00 Intake Total 736.375 ml 420 ml Output Total 730 ml 1475 ml Balance 6.375 ml -1055 ml Free Water 100 ml IV Total 726.375 ml 60 ml Tube Feeding 10 ml 260 ml Output Urine Total 430 ml 1275 ml Stool Total 300 ml 200 ml # Bowel Movements 101 General Appearance: no acute distress HEENT: normocephalic Respiratory: chest wall non-tender, lungs clear Cardiovascular: normal peripheral pulses, normal rate Abdomen: normal bowel sounds Laboratory Tests 01/20/20 16:10: White Blood Count 7.7, Red Blood Count 3.19L, Hemoglobin 9.0#L, Hematocrit 27.4L , Mean Corpuscular Volume 86#, Mean Corpuscular Hemoglobin 28.3, Mean Corpusc ular Hemoglobin Concent 32.9, Red Cell Distribution Width 19.3H, Platelet Count 84L, Mean Platelet Volume 8.0, Neutrophils (%) (Auto) , Lymphocytes (%) (Auto) , Monocytes (%) (Auto) , Eosinophils (%) (Auto) , Basophils (%) (Auto) , Differential Total Cells Counted 100, Neutrophils % (Manual) 89H, Lymphocytes % (Manual) 8L, Monocytes % (Manual) 3, Eosinophils % (Manual) 0, Basophils % (Manual) 0, Band Neutrophils 0, Platelet Estimate DecreasedL, Platelet Morphology Normal, Hypochromasia 1+, Anisocytosis 1+ 01/20/20 18:17: POC Whole Blood Glucose 87 01/21/20 04:30: White Blood Count 7.1, Red Blood Count 3.22L, Hemoglobin 9.3L, Hematocrit 28.7L, Mean Corpuscular Volume 89, Mean Corpuscular Hemoglobin 28.8, Mean Corpuscular Hemoglobin Concent 32.3, Red Cell Distribution Width 19.8H, Platelet Count 88L, Mean Platelet Volume 7.2, Neutrophils (%) (Auto) , Lymphocytes (%) (Auto) , Monocytes (%) (Auto) , Eosinophils (%) (Auto) , Basophils (%) (Auto) , Sodium Level 145, Potassium Level 3.3L, Chloride Level 111H, Carbon Dioxide Level 22, Anion Gap 12, Blood Urea Nitrogen 20H, Creatinine 1.6H, Estimat Glomerular Filtration Rate 51.9, Glucose Level 91, Uric Acid 4.6, Calcium Level 7.5L, Phosphorus Level 3.3, Magnesium Level 1.3L, Total Bilirubin 0.5, Gamma Glutamyl Transpeptidase 87H, Aspartate Amino Transf (AST/SGOT) 110H, Alanine Aminotransferase (ALT/SGPT) 46, Alkaline Phosphatase 122H, Total Creatine Kinase 193, Troponin I 0.062H, C-Reactive Protein, Quantitative 7.3H, Pro-B-Type Natriuretic Peptide 3910H, Total Protein 5.0L, Albumin 1.9L, Globulin 3.1, Albumin/Globulin Ratio 0.6L 01/21/20 07:49: Arterial Blood pH 7.475H, Arterial Blood Partial Pressure CO2 23.5*L, Arterial Blood Partial Pressure O2 132.8H, Arterial Blood HCO3 16.9*L, Arterial Blood Oxygen Saturation 98.3, Arterial Blood Base Excess -5.4L, Asael Test Positive Current Medications Medications (Trade) Dose Ordered Sig/Jesse Route PRN Reason Start Time Stop Time Status Last Admin Dose Admin Acetaminophen (Tylenol) 650 mg Q4H PRN ORAL PRNH/TEMP 01/05/20 20:15 02/04/20 20:14 01/12/20 03:10 Bisacodyl (Dulcolax) 10 mg DAILY PRN RECTAL Constipation 01/05/20 20:15 04/04/20 20:14 Chlorhexidine Gluconate (Navya-Hex 2%) 1 applic DAILY@2000 TOPIC 01/11/20 20:00 04/10/20 19:59 01/20/20 20:22 Dextrose (Dextrose 50%) 25 ml Q30M PRN IV Hypoglycemia 01/05/20 20:15 04/04/20 20:14 Dextrose (Dextrose 50%) 50 ml Q30M PRN IV Hypoglycemia 01/05/20 20:15 04/04/20 20:14 Furosemide 100 mg/ Dextrose 100 ml @ 5 mls/hr Q20H IV 01/20/20 11:30 02/19/20 11:29 01/21/20 08:33 Linaclotide (Linzess) 290 mcg BEFORE BREAKFAST ORAL 01/10/20 06:30 04/09/20 06:29 01/21/20 05:55 Magnesium Sulfate 100 ml @ 100 mls/hr Q1H IVPB 01/21/20 10:00 01/21/20 13:59 Metoclopramide HCl (Reglan) 10 mg EVERY 6 HOURS NG 01/19/20 12:00 02/18/20 11:59 01/21/20 05:55 Metoclopramide HCl (Reglan) 10 mg Q6H PRN IVP Nausea & Vomiting 01/16/20 13:00 02/15/20 12:59 Midodrine (Pro-Amatine) 10 mg Q8HR NG 01/20/20 22:00 04/13/20 17:59 01/21/20 05:55 Norepinephrine Bitartrate 250 ml @ 0 mls/hr Q24H PRN IV For hypotension 01/20/20 08:00 01/23/20 07:59 01/20/20 09:28 Ondansetron HCl (Zofran) 4 mg Q6H PRN IVP Nausea & Vomiting 01/10/20 06:30 02/09/20 06:29 Pantoprazole (Protonix) 40 mg EVERY 12 HOURS IVP 01/20/20 21:00 02/19/20 20:59 01/21/20 08:32 Polyethylene Glycol (Miralax) 17 gm BEDTIME NG 01/11/20 21:00 02/08/20 20:59 01/20/20 20:22 Potassium Chloride 100 ml @ 50 mls/hr ONCE IVPB 01/21/20 11:00 04/20/20 10:59 Sennosides (Senokot) 8.6 mg QHS NG 01/11/20 21:00 02/04/20 20:59 01/20/20 20:22 Vitamin D (Vitamin D) 3,000 intlu DAILY GT 01/19/20 12:00 02/18/20 11:59 01/21/20 08:33 Assessment/Plan Assessment/Plan IMPRESSION: 1. Severe metabolic acidosis. Corrected 2. Respiratory failure; reintubated 3. Diarrhea. 4. Acute renal failure. Nephrology following; creatinine now 1.3 5. Anemia; for transfusion today DISCUSSION: ABG reviewed. Will adjust vent. Will attempt wean Continue Lasix drip. Continue pressors prn. Daxa Infante Omar Syed MD Jan 21, 2020 10:47
--- NOTE | 2020-01-21 11:50 | Cardiac Electrophysiology PN ---
Assessment/Plan Assessment/Plan 1. Altered mental status due to severe dehydration in view of sodium of 160 and acute renal failure. On IV fluids and IV antibiotics. Ruled out for [place]. 2. Septic shock off Levophed and on iv Abx On Midodrine 10 tid 3. History of CVA, Plavix DCed in view of hematuria. 4. Respiratory failure on the Vent now. 5. Diabetes. 6. Acute renal failure. Cr 4.2. Had HD once only on 01/11/20. No more HD needed and Cr 1.2 7. Hematuria 8. Anemia with Hb 5.8 and coffee ground emesis. FU Dr Bueno 9. Shock liver with increase AST>2000 10. Pancreatic mass x3. CT abdomen and pelvis showed Large pelvic mass involving the prostate, bladder presumably representing prostatic malignancy 11. Dysphagia, NGT feeding. PEG pending ethics sue DIETRICH RN Subjective Subjective Coded 01/19 for respiratory failure followed by bradycardia and PEA. Intubated on the vent in ICU off Levo On Lasix drip at 5 mg/hr Objective Last 24 Hour Vital Signs Date Time Temp Pulse Resp B/P (MAP) Pulse Ox O2 Delivery O2 Flow Rate FiO2 01/21/20 10:52 95 20 40 01/21/20 10:30 96 17 94/62 (73) 100 01/21/20 10:18 101 21 101/61 (74) 100 01/21/20 10:15 89 20 85/50 (62) 100 01/21/20 10:00 94 22 107/63 (78) 100 01/21/20 09:45 95 20 110/62 (78) 100 01/21/20 09:30 103 22 103/58 (73) 100 01/21/20 09:15 96 21 113/69 (84) 100 01/21/20 09:00 101 22 111/65 (80) 100 01/21/20 09:00 Mechanical Ventilator 01/21/20 08:45 99 22 105/66 (79) 100 01/21/20 08:37 101 22 40 01/21/20 08:30 96 21 102/56 (71) 100 01/21/20 08:15 96 22 111/57 (75) 100 01/21/20 08:00 40 01/21/20 08:00 100 01/21/20 08:00 98.3 94 21 95/51 (66) 100 01/21/20 07:21 102 23 40 01/21/20 05:25 113 21 40 01/21/20 04:00 108 01/21/20 04:00 110 24 129/73 (91) 100 01/21/20 03:39 110 22 40 01/21/20 03:00 108 22 126/74 (91) 100 01/21/20 02:00 111 24 136/80 (98) 100 01/21/20 01:21 104 22 40 01/21/20 01:00 108 22 125/64 (84) 100 01/21/20 00:00 98.7 107 24 113/60 (77) 100 01/21/20 00:00 110 01/21/20 00:00 2.0 40 01/20/20 23:05 102 23 40 01/20/20 23:00 104 24 117/61 (79) 100 01/20/20 22:00 104 25 126/64 (84) 100 01/20/20 21:12 112 25 40 01/20/20 21:00 Endotracheal Tube 01/20/20 21:00 117 27 115/61 (79) 100 01/20/20 20:00 2.0 40 01/20/20 20:00 110 01/20/20 20:00 99.4 114 25 124/62 (82) 100 01/20/20 19:16 117 25 40 01/20/20 19:00 113 25 142/70 (94) 100 01/20/20 18:30 99.1 113 25 138/75 (96) 100 01/20/20 18:00 109 24 135/77 (96) 100 01/20/20 17:30 111 24 136/75 (95) 100 01/20/20 17:20 109 24 40 01/20/20 17:00 95 25 113/63 (80) 100 01/20/20 16:30 96 26 115/61 (79) 100 01/20/20 16:14 103 01/20/20 16:00 Endotracheal Tube 01/20/20 16:00 98.2 95 24 113/61 (78) 100 01/20/20 15:35 100 25 40 01/20/20 15:30 97 23 114/61 (78) 100 01/20/20 15:00 97 25 113/62 (79) 100 01/20/20 14:30 98 27 111/64 (80) 100 01/20/20 14:00 99 23 122/70 (87) 100 01/20/20 13:20 107 25 40 01/20/20 13:00 103 24 111/61 (78) 100 01/20/20 12:30 96 24 119/62 (81) 100 01/20/20 12:04 97 01/20/20 12:00 98.3 97 24 116/63 (80) 100 01/20/20 12:00 Endotracheal Tube Intake and Output 01/20/20 01/21/20 19:00 07:00 Intake Total 736.375 ml 420 ml Output Total 730 ml 1475 ml Balance 6.375 ml -1055 ml Free Water 100 ml IV Total 726.375 ml 60 ml Tube Feeding 10 ml 260 ml Output Urine Total 430 ml 1275 ml Stool Total 300 ml 200 ml # Bowel Movements 101 Laboratory Tests Test 01/20/20 16:10 01/20/20 18:17 01/21/20 04:30 01/21/20 07:49 White Blood Count 7.7 K/UL (4.8-10.8) 7.1 K/UL (4.8-10.8) Red Blood Count 3.19 M/UL (4.70-6.10) L 3.22 M/UL (4.70-6.10) L Hemoglobin 9.0 G/DL (14.2-18.0) #L 9.3 G/DL (14.2-18.0) L Hematocrit 27.4 % (42.0-52.0) L 28.7 % (42.0-52.0) L Mean Corpuscular Volume 86 FL (80-99) # 89 FL (80-99) Mean Corpuscular Hemoglobin 28.3 PG (27.0-31.0) 28.8 PG (27.0-31.0) Mean Corpuscular Hemoglobin Concent 32.9 G/DL (32.0-36.0) 32.3 G/DL (32.0-36.0) Red Cell Distribution Width 19.3 % (11.6-14.8) H 19.8 % (11.6-14.8) H Platelet Count 84 K/UL (150-450) L 88 K/UL (150-450) L Mean Platelet Volume 8.0 FL (6.5-10.1) 7.2 FL (6.5-10.1) Neutrophils (%) (Auto) % (45.0-75.0) % (45.0-75.0) Lymphocytes (%) (Auto) % (20.0-45.0) % (20.0-45.0) Monocytes (%) (Auto) % (1.0-10.0) % (1.0-10.0) Eosinophils (%) (Auto) % (0.0-3.0) % (0.0-3.0) Basophils (%) (Auto) % (0.0-2.0) % (0.0-2.0) Differential Total Cells Counted 100 Neutrophils % (Manual) 89 % (45-75) H Lymphocytes % (Manual) 8 % (20-45) L Monocytes % (Manual) 3 % (1-10) Eosinophils % (Manual) 0 % (0-3) Basophils % (Manual) 0 % (0-2) Band Neutrophils 0 % (0-8) Platelet Estimate Decreased L Platelet Morphology Normal Hypochromasia 1+ Anisocytosis 1+ POC Whole Blood Glucose 87 MG/DL (74-106) Sodium Level 145 MMOL/L (136-145) Potassium Level 3.3 MMOL/L (3.5-5.1) L Chloride Level 111 MMOL/L (98-107) H Carbon Dioxide Level 22 MMOL/L (21-32) Anion Gap 12 mmol/L (5-15) Blood Urea Nitrogen 20 mg/dL (7-18) H Creatinine 1.6 MG/DL (0.55-1.30) H Estimat Glomerular Filtration Rate 51.9 mL/min (>60) Glucose Level 91 MG/DL (74-106) Uric Acid 4.6 MG/DL (2.6-7.2) Calcium Level 7.5 MG/DL (8.5-10.1) L Phosphorus Level 3.3 MG/DL (2.5-4.9) Magnesium Level 1.3 MG/DL (1.8-2.4) L Total Bilirubin 0.5 MG/DL (0.2-1.0) Gamma Glutamyl Transpeptidase 87 U/L (5-85) H Aspartate Amino Transf (AST/SGOT) 110 U/L (15-37) H Alanine Aminotransferase (ALT/SGPT) 46 U/L (12-78) Alkaline Phosphatase 122 U/L (46-116) H Total Creatine Kinase 193 U/L (26-308) Troponin I 0.062 ng/mL (0.000-0.056) C-Reactive Protein, Quantitative 7.3 mg/dL (0.00-0.90) H Pro-B-Type Natriuretic Peptide 3910 pg/mL (0-125) H Total Protein 5.0 G/DL (6.4-8.2) L Albumin 1.9 G/DL (3.4-5.0) L Globulin 3.1 g/dL Albumin/Globulin Ratio 0.6 (1.0-2.7) L Arterial Blood pH 7.475 (7.350-7.450) Arterial Blood Partial Pressure CO2 23.5 mmHg (35.0-45.0) *L Arterial Blood Partial Pressure O2 132.8 mmHg (75.0-100.0) H Arterial Blood HCO3 16.9 mmol/L (22.0-26.0) *L Arterial Blood Oxygen Saturation 98.3 % (95-100) Arterial Blood Base Excess -5.4 (-2-2) L Asael Test Positive Objective HEAD AND NECK: Orally intubated.NGT in place LUNGS: Coarse rhonchi. CARDIOVASCULAR: Regular S1 and S2 with no gallop. ABDOMEN: Soft. EXTREMITIES: No pitting edema.Right groin Mega in place Kevin Lopez MD Jan 21, 2020 11:50
--- NOTE | 2020-01-21 12:08 | Diagnostic Imaging Report ---
Indication: Shortness of breath Technique: Single AP view of the chest. Comparison: Chest radiograph Dated 01/20/2020 Findings: The cardiomediastinal silhouette is unchanged in appearance. Redemonstration of large layering bilateral pleural effusions with associated bibasilar airspace opacities. Stable interstitial edema. No pneumothorax. Unchanged position of endotracheal tube, which remains high riding. Unchanged enteric tube. IMPRESSION: No significant change when compared to most recent examination.
--- NOTE | 2020-01-21 12:24 | General Progress Note ---
Subjective ROS Limited/Unobtainable: No Allergies: Coded Allergies: No Known Allergies (Unverified , 03/18/19) Objective Last 24 Hour Vital Signs Date Time Temp Pulse Resp B/P (MAP) Pulse Ox O2 Delivery O2 Flow Rate FiO2 01/21/20 10:52 95 20 40 01/21/20 10:30 96 17 94/62 (73) 100 01/21/20 10:18 101 21 101/61 (74) 100 01/21/20 10:15 89 20 85/50 (62) 100 01/21/20 10:00 94 22 107/63 (78) 100 01/21/20 09:45 95 20 110/62 (78) 100 01/21/20 09:30 103 22 103/58 (73) 100 01/21/20 09:15 96 21 113/69 (84) 100 01/21/20 09:00 101 22 111/65 (80) 100 01/21/20 09:00 Mechanical Ventilator 01/21/20 08:45 99 22 105/66 (79) 100 01/21/20 08:37 101 22 40 01/21/20 08:30 96 21 102/56 (71) 100 01/21/20 08:15 96 22 111/57 (75) 100 01/21/20 08:00 40 01/21/20 08:00 100 01/21/20 08:00 98.3 94 21 95/51 (66) 100 01/21/20 07:21 102 23 40 01/21/20 05:25 113 21 40 01/21/20 04:00 108 01/21/20 04:00 110 24 129/73 (91) 100 01/21/20 03:39 110 22 40 01/21/20 03:00 108 22 126/74 (91) 100 01/21/20 02:00 111 24 136/80 (98) 100 01/21/20 01:21 104 22 40 01/21/20 01:00 108 22 125/64 (84) 100 01/21/20 00:00 98.7 107 24 113/60 (77) 100 01/21/20 00:00 110 01/21/20 00:00 2.0 40 01/20/20 23:05 102 23 40 01/20/20 23:00 104 24 117/61 (79) 100 01/20/20 22:00 104 25 126/64 (84) 100 01/20/20 21:12 112 25 40 01/20/20 21:00 Endotracheal Tube 01/20/20 21:00 117 27 115/61 (79) 100 01/20/20 20:00 2.0 40 01/20/20 20:00 110 01/20/20 20:00 99.4 114 25 124/62 (82) 100 01/20/20 19:16 117 25 40 01/20/20 19:00 113 25 142/70 (94) 100 01/20/20 18:30 99.1 113 25 138/75 (96) 100 01/20/20 18:00 109 24 135/77 (96) 100 01/20/20 17:30 111 24 136/75 (95) 100 01/20/20 17:20 109 24 40 01/20/20 17:00 95 25 113/63 (80) 100 01/20/20 16:30 96 26 115/61 (79) 100 01/20/20 16:14 103 01/20/20 16:00 Endotracheal Tube 01/20/20 16:00 98.2 95 24 113/61 (78) 100 01/20/20 15:35 100 25 40 01/20/20 15:30 97 23 114/61 (78) 100 01/20/20 15:00 97 25 113/62 (79) 100 01/20/20 14:30 98 27 111/64 (80) 100 01/20/20 14:00 99 23 122/70 (87) 100 01/20/20 13:20 107 25 40 01/20/20 13:00 103 24 111/61 (78) 100 01/20/20 12:30 96 24 119/62 (81) 100 Intake and Output 01/20/20 01/21/20 19:00 07:00 Intake Total 736.375 ml 420 ml Output Total 730 ml 1475 ml Balance 6.375 ml -1055 ml Free Water 100 ml IV Total 726.375 ml 60 ml Tube Feeding 10 ml 260 ml Output Urine Total 430 ml 1275 ml Stool Total 300 ml 200 ml # Bowel Movements 101 Laboratory Tests 01/20/20 16:10: White Blood Count 7.7, Red Blood Count 3.19L, Hemoglobin 9.0#L, Hematocrit 27.4L , Mean Corpuscular Volume 86#, Mean Corpuscular Hemoglobin 28.3, Mean Corpuscular Hemoglobin Concent 32.9, Red Cell Distribution Width 19.3H, Platelet Count 84L, Mean Platelet Volume 8.0, Neutrophils (%) (Auto) , Lymphocytes (%) (Auto) , Monocytes (%) (Auto) , Eosinophils (%) (Auto) , Basophils (%) (Auto) , Differential Total Cells Counted 100, Neutrophils % (Manual) 89H, Lymphocytes % (Manual) 8L, Monocytes % (Manual) 3, Eosinophils % (Manual) 0, Basophils % (Manual) 0, Band Neutrophils 0, Platelet Estimate DecreasedL, Platelet Morphology Normal, Hypochromasia 1+, Anisocytosis 1+ 01/20/20 18:17: POC Whole Blood Glucose 87 01/21/20 04:30: White Blood Count 7.1, Red Blood Count 3.22L, Hemoglobin 9.3L, Hematocrit 28.7L, Mean Corpuscular Volume 89, Mean Corpuscular Hemoglobin 28.8, Mean Corpuscular Hemoglobin Concent 32.3, Red Cell Distribution Width 19.8H, Platelet Count 88L, Mean Platelet Volume 7.2, Neutrophils (%) (Auto) , Lymphocytes (%) (Auto) , Monocytes (%) (Auto) , Eosinophils (%) (Auto) , Basophils (%) (Auto) , Sodium Level 145, Potassium Level 3.3L, Chloride Level 111H, Carbon Dioxide Level 22, Anion Gap 12, Blood Urea Nitrogen 20H, Creatinine 1.6H, Estimat Glomerular Filtration Rate 51.9, Glucose Level 91, Uric Acid 4.6, Calcium Level 7.5L, Phosphorus Level 3.3, Magnesium Level 1.3L, Total Bilirubin 0.5, Gamma Glutamyl Transpeptidase 87H, Aspartate Amino Transf (AST/SGOT) 110H, Alanine Aminotransferase (ALT/SGPT) 46, Alkaline Phosphatase 122H, Total Creatine Kinase 193, Troponin I 0.062H, C-Reactive Protein, Quantitative 7.3H, Pro-B-Type Natriuretic Peptide 3910H, Total Protein 5.0L, Albumin 1.9L, Globulin 3.1, Albumin/Globulin Ratio 0.6L 01/21/20 07:49: Arterial Blood pH 7.475H, Arterial Blood Partial Pressure CO2 23.5*L, Arterial Blood Partial Pressure O2 132.8H, Arterial Blood HCO3 16.9*L, Arterial Blood Oxygen Saturation 98.3, Arterial Blood Base Excess -5.4L, Asael Test Positive Height (Feet): 6 Height (Inches): 0.00 Weight (Pounds): 150 General Appearance: no apparent distress EENT: PERRL/EOMI Neck: supple Cardiovascular: normal rate Respiratory/Chest: decreased breath sounds Abdomen: normal bowel sounds, non tender, soft Extremities: non-tender Assessment/Plan Status: unchanged Assessment/Plan: AMS dementia Anemia DM hyper CA elevated AST low albumin COPD RI HTN metastatic prostate CA NPO NGTF post blood transfusion poor prognosis may need peg when more stable and consented Paulino Bueno MD Jan 21, 2020 12:24
--- NOTE | 2020-01-21 19:17 | Surgery Progress Note ---
Surgery Progress Note Subjective Procedure Performed Right femoral temporary hemodialysis catheter insertion Additional Comments ill appearing no n/v labs noted bp improved on fluids Objective Last 24 Hour Vital Signs Date Time Temp Pulse Resp B/P (MAP) Pulse Ox O2 Delivery O2 Flow Rate FiO2 01/21/20 18:00 82 12 103/59 (74) 100 01/21/20 17:00 40 01/21/20 17:00 92 12 100/62 (75) 100 01/21/20 16:44 81 25 40 01/21/20 16:00 98.8 89 16 101/58 (72) 100 01/21/20 16:00 40 01/21/20 15:24 93 22 40 01/21/20 15:00 83 16 103/55 (71) 100 01/21/20 14:00 82 16 110/63 (79) 100 01/21/20 13:29 94 20 40 01/21/20 13:00 98.5 97 16 102/60 (74) 100 01/21/20 12:30 101 19 103/55 (71) 100 01/21/20 12:15 91 19 97/56 (70) 100 01/21/20 12:00 98.0 91 19 100/56 (71) 100 01/21/20 12:00 124 01/21/20 12:00 Mechanical Ventilator 01/21/20 12:00 40 01/21/20 11:45 91 19 101/59 (73) 100 01/21/20 11:30 93 19 93/58 (70) 100 01/21/20 11:15 92 20 106/59 (75) 100 01/21/20 11:00 95 20 102/58 (73) 100 01/21/20 10:52 95 20 40 01/21/20 10:30 96 17 94/62 (73) 100 01/21/20 10:18 101 21 101/61 (74) 100 01/21/20 10:15 89 20 85/50 (62) 100 01/21/20 10:00 94 22 107/63 (78) 100 01/21/20 09:45 95 20 110/62 (78) 100 01/21/20 09:30 103 22 103/58 (73) 100 01/21/20 09:15 96 21 113/69 (84) 100 01/21/20 09:00 101 22 111/65 (80) 100 01/21/20 09:00 Mechanical Ventilator 01/21/20 08:45 99 22 105/66 (79) 100 01/21/20 08:37 101 22 40 01/21/20 08:30 96 21 102/56 (71) 100 01/21/20 08:15 96 22 111/57 (75) 100 01/21/20 08:00 40 01/21/20 08:00 100 01/21/20 08:00 98.3 94 21 95/51 (66) 100 01/21/20 07:21 102 23 40 01/21/20 05:25 113 21 40 01/21/20 04:00 108 01/21/20 04:00 110 24 129/73 (91) 100 01/21/20 03:39 110 22 40 01/21/20 03:00 108 22 126/74 (91) 100 01/21/20 02:00 111 24 136/80 (98) 100 01/21/20 01:21 104 22 40 01/21/20 01:00 108 22 125/64 (84) 100 01/21/20 00:00 98.7 107 24 113/60 (77) 100 01/21/20 00:00 110 01/21/20 00:00 2.0 40 01/20/20 23:05 102 23 40 01/20/20 23:00 104 24 117/61 (79) 100 01/20/20 22:00 104 25 126/64 (84) 100 01/20/20 21:12 112 25 40 01/20/20 21:00 Endotracheal Tube 01/20/20 21:00 117 27 115/61 (79) 100 01/20/20 20:00 2.0 40 01/20/20 20:00 110 01/20/20 20:00 99.4 114 25 124/62 (82) 100 I&O Intake and Output 01/20/20 01/21/20 19:00 07:00 Intake Total 736.375 ml 460 ml Output Total 730 ml 1555 ml Balance 6.375 ml -1095 ml Free Water 100 ml IV Total 726.375 ml 60 ml Tube Feeding 10 ml 300 ml Output Urine Total 430 ml 1355 ml Stool Total 300 ml 200 ml # Bowel Movements 101 Dressing: saturated Cardiovascular: RSR Respiratory: decreased breath sounds Abdomen: non-tender, present bowel sounds Extremities: no tenderness, no cyanosis Laboratory Tests Test 01/21/20 04:30 01/21/20 07:49 01/21/20 13:00 01/21/20 17:26 White Blood Count 7.1 K/UL (4.8-10.8) Red Blood Count 3.22 M/UL (4.70-6.10) L Hemoglobin 9.3 G/DL (14.2-18.0) L Hematocrit 28.7 % (42.0-52.0) L Mean Corpuscular Volume 89 FL (80-99) Mean Corpuscular Hemoglobin 28.8 PG (27.0-31.0) Mean Corpuscular Hemoglobin Concent 32.3 G/DL (32.0-36.0) Red Cell Distribution Width 19.8 % (11.6-14.8) H Platelet Count 88 K/UL (150-450) L Mean Platelet Volume 7.2 FL (6.5-10.1) Neutrophils (%) (Auto) % (45.0-75.0) Lymphocytes (%) (Auto) % (20.0-45.0) Monocytes (%) (Auto) % (1.0-10.0) Eosinophils (%) (Auto) % (0.0-3.0) Basophils (%) (Auto) % (0.0-2.0) Sodium Level 145 MMOL/L (136-145) Potassium Level 3.3 MMOL/L (3.5-5.1) L Chloride Level 111 MMOL/L (98-107) H Carbon Dioxide Level 22 MMOL/L (21-32) Anion Gap 12 mmol/L (5-15) Blood Urea Nitrogen 20 mg/dL (7-18) H Creatinine 1.6 MG/DL (0.55-1.30) H Estimat Glomerular Filtration Rate 51.9 mL/min (>60) Glucose Level 91 MG/DL (74-106) Uric Acid 4.6 MG/DL (2.6-7.2) Calcium Level 7.5 MG/DL (8.5-10.1) L Phosphorus Level 3.3 MG/DL (2.5-4.9) Magnesium Level 1.3 MG/DL (1.8-2.4) L Total Bilirubin 0.5 MG/DL (0.2-1.0) Gamma Glutamyl Transpeptidase 87 U/L (5-85) H Aspartate Amino Transf (AST/SGOT) 110 U/L (15-37) H Alanine Aminotransferase (ALT/SGPT) 46 U/L (12-78) Alkaline Phosphatase 122 U/L (46-116) H Total Creatine Kinase 193 U/L (26-308) Troponin I 0.062 ng/mL (0.000-0.056) C-Reactive Protein, Quantitative 7.3 mg/dL (0.00-0.90) H Pro-B-Type Natriuretic Peptide 3910 pg/mL (0-125) H Total Protein 5.0 G/DL (6.4-8.2) L Albumin 1.9 G/DL (3.4-5.0) L Globulin 3.1 g/dL Albumin/Globulin Ratio 0.6 (1.0-2.7) L Arterial Blood pH 7.475 (7.350-7.450) Arterial Blood Partial Pressure CO2 23.5 mmHg (35.0-45.0) *L Arterial Blood Partial Pressure O2 132.8 mmHg (75.0-100.0) H Arterial Blood HCO3 16.9 mmol/L (22.0-26.0) *L Arterial Blood Oxygen Saturation 98.3 % (95-100) Arterial Blood Base Excess -5.4 (-2-2) L Asael Test Positive POC Whole Blood Glucose 126 MG/DL (74-106) H Pending Plan Problems: (1) Altered level of consciousness (2) Hypovolemic shock Assessment & Plan: resuscitation extubated monitor respiratory keep hob elevated supplemental O2 Gallbladder demonstrates sludge. No stones, wall thickening, nor pericholecystic fluid. Patient unable to report Wilson's sign Common bile duct measures 3 mm in diameter. No intrahepatic biliary ductal dilatation. Liver demonstrates coarsened echogenicity and surface nodularity. It demonstrates multiple cysts. Portal vein and hepatic veins are patent. The pancreas demonstrates 3 hypoechoic lesions in the head and body, measuring approximately 5 mm in diameter each. Spleen is unremarkable, poorly visualized. Left kidney measures 11.4 cm in length. Right kidney measures 11.3 cm length. Both kidneys demonstrate normal echogenicity. There is severe right and moderate left hydronephrosis. Echogenic foci are seen in the left renal sinus and collecting system. Bladder is empty, contains a Mathew catheter. Non-aneurysmal abdominal aorta . There are bilateral pleural effusions Impression: Bilateral right greater than left hydronephrosis, increased since prior study of 03/20/2019. Etiology not demonstrated Empty bladder with a Mathew catheter 3 hypoechoic lesions within the pancreatic head and body, each measuring about 5 mm. Appearance nonspecific. Recommend further evaluation with pancreas protocol MRI Bilateral pleural effusions Echogenic liver, consistent with hepatocellular disease. Surface likely nodularity raises concern for cirrhosis Gallbladder sludge. Negative for dilated bile ducts Probable nonobstructive left intrarenal calculi Multiple hepatic cysts (3) Lactic acid acidosis (4) Hypernatremia (5) Paraplegia (6) Anemia Assessment & Plan: no active bleeding noted no large hematoma dressings okay likely related to heme will monitor transfuse prbc with HD trend labs thank you (7) Diabetes (8) Weak (9) HTN (hypertension) (10) ARF (acute renal failure) (11) Hypercalcemia (12) Hyperuricemia (13) Dehydration (14) UTI (urinary tract infection) (15) Failure to thrive in adult Assessment & Plan: patient identified to have DTI on bilateral heels right with 5cm x 4cm area of dti not open no drainage no signs of infection left with 3cm x 2cm. pillow under leg optifoam dressings nutritional optimization will follow no acute surgery DAILY ESTIMATED NEEDS: Needs based on underweight, suspected wt loss, HD, CRITICAL CARE/ 57.6kg 25-33 kcals/kg 1169-1980 total kcals 1.2-2 g protein/kg 69-115 g total protein 25-30 mL/kg 4698-5917 total fluid mLs NUTRITION DIAGNOSIS: *Increased kcal and pro needs r/t underweight status, suspected significant wt loss as evidenced by pt @ 71% IBW w/ BMI 17.2, underweight per guidelines, w/ suspected signficant wt loss of 30lbs/19% in 10 months. * Swallowing difficulty R/T dysphagia, respiratory status as evidenced by s/p NGT insertion (01/08), now NPO, s/p code blue (01/10), orally intubated. CURRENT TF:NPO ENTERAL NUTRITION RECOMMENDATIONS: WHEN HEMODYNAMICALLY STABLE: Nepro @ 40ml/hr x 24 hrs to provide 960ml, 1728kcal, 77g prot, 698ml free water WHEN HEMODYNAMICALLY STABLE AND MEDICALLY APPROPRIATE TO FEED: -> initiate TF @ 5ml/hr x 6hrs, advance slowly 5ml q 4-6 hrs as tolerated to goal rate -> HOB over 30 degrees/ water flush per MD WITHOUT HEMODYNAMIC STABILITY -> If medically appropriate to feed, rec trophic feeding of Nepro @ 5ml/hr x 24 hrs to maintain gut integrity (16) Pelvic mass Assessment & Plan: invasive pelvic mass likely prostate necrotic nodes likely spread recommend colonoscopy given invasion possible to rectum oncology input thank you There is a large pelvic mass which is cephalad to but inseparable from the prostate. This also is inseparable from the posterior wall of the bladder and there appears to be circumferential bladder wall thickening. This mass also appears to involve the seminal vesicles. This measures approximately 8.8 cm transverse by 10 cm craniocaudad by 7.4 cm AP. The periphery of this mass is very lobulated. The mass may also invade the adjacent rectum. There is bilateral iliac chain lymphadenopathy, with nodes measuring up to 3 cm in diameter. Some of these nodes are very low in attenuation indicating that they are necrotic. There is also retroperitoneal lymphadenopathy. There is severe right and moderate left hydronephrosis and bilateral hydroureter. The dilated ureters terminate at the level of the mass. No intrinsic renal parenchymal abnormality. The pancreas is unremarkable. No findings corresponding to the areas of low-attenuation described on prior sonogram are evident. No pancreatic ductal dilatation is evident. The liver demonstrates multiple cysts. The gallbladder, bile ducts, spleen, adrenals are unremarkable. The bones demonstrate diffuse involvement with multiple mixed osteolytic/osteosclerotic lesions, mostly sclerotic component predominating. There is a right groin dialysis catheter in place, tip at the level of the iliac venous confluence. There is a nasogastric tube,, tip in the stomach. There is a Mathew catheter. There is a rectal tube lying outside the patient with the balloon inflated within the inner gluteal fold. There are bilateral pleural effusions. There is compressive atelectasis of most if not all of both lower lobes. 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 Compressive atelectasis of most of not all of both lower lobes Other findings as noted, including multiple liver cysts Lázaro Jenkins Jan 21, 2020 19:17
[2020-01-21] MEDS ORDERED: D5 1/2NS 1000ml IV ONE (19:33)
[2020-01-21] MEDS ORDERED: Tubing IV Secondary IV ONE ×2 (19:33→19:36)
[2020-01-21] MEDS ORDERED: D5W 550ml IV ONE (19:36)
[2020-01-21] MEDS ORDERED: NS 275ml ONE (19:36)
[2020-01-21] MEDS ORDERED: Tubing IV Blood Pump IV ONE (19:36)
[2020-01-21] MEDS: Miralax 17gm pkt NG SCH (20:23)
[2020-01-21] MEDS: Dyna-Hex 2% Top Sol 2oz TOPIC SCH (20:23)
[2020-01-21] MEDS: Sennosides 8.6mg tab NG SCH (20:23)
[2020-01-22] VITALS (41 sets, daily range): BP systolic 86–134; BP diastolic 52–76
[2020-01-22] MEDS: Metoclopramide 10mg/10ml Liq NG SCH ×4 (05:21→23:03)
[2020-01-22] MEDS: Midodrine 10mg tab NG SCH ×3 (05:21→21:05)
[2020-01-22 06:26] LABS: HEMATOCRIT 28.7 % (42.0-52.0); HEMOGLOBIN 9.2 G/DL (14.2-18.0); MEAN CORPUSCULAR VOLUME 89 FL (80-99); PLATELET COUNT 95 K/UL (150-450); RED BLOOD COUNT 3.22 M/UL (4.70-6.10); RED CELL DISTRIBUTION WIDTH 19.8 % (11.6-14.8); WHITE BLOOD COUNT 6.5 K/UL (4.8-10.8)
--- NOTE | 2020-01-22 07:03 | Hematology/Onc Progress Note ---
Assessment/Plan Assessment/Plan Assessment/Recs # Metastatic prostate cancer -- w psa [id number], has a Large pelvic mass as described involving the prostate, bladder, seminal vesicles, presumably representing prostatic malignancy --> CT Evidence of disseminated malignancy, with extensive lymphadenopathy of and evidenc of diffuse osseous metastases Severe right and moderate left hydronephrosis and bilateral hydroureter, due to ureteral obstruction by the above mass --> tumor markers ordered, psa 2741 --> after above reviewed, consider further biopsy of prostate with uro as needed # Anemia of chronic disease due to underlying chronic medical issues, multifactorial v Gi bleed --> Anemia workup has been ordered, rule out gi bleed --> No evidence of hemolysis is noted, peripheral smear has been reviewed. --> Hgb goal >7. Transfuse prn. --> Epogen or iron at this time is not particularly indicated --> Medications have been reviewed --> low threshold for gi evaluation in case has occult + --> hgb 10-->9.7-->9.2->10-->8.6-->7.7-->5-->8.3->9.3->7.8-->8.2-->8.1-->9.3 --> 11/8 flow cytometry ordered bc of nucleated cells on smear # Thrombocytopenia ongoing, worsened since adm --> plt 150-->98-->82-->51->49-->46-->50-->68-->88 --> hep and hiv panel--NEG --> us abd-->shows 3 small lesions, requires further eval --> CT a/p reviewed # Multiple lesions noted in pancreas --> MRI abd ordered--> nondiagnostic --> CT of the abd reviewed # Protein caloric malnutrition --> daily calorie counts --> daily weights --> mirtazapine started # Acute renal failure --> continue on ivfs --> as per renal # Hypokalemia --> replete with K # Severe dehydration --> ivfs ongoing # Hypernatremia indicative of severe water deficit # Severe hyperuricemia, partly due to dehydration and renal failure # Acute metabolic and toxic encephalopathy # Mild, malnutrition # Psych issues per psych # Lactic acid, possible sepsis # Dvt ppx heparin sq->Scds The timing of this note does not necessarily reflect the time of the patient was seen. Greatly appreciate consultation. Subjective Cardiovascular: Denies: no symptoms, chest pain, edema, irregular heart rate, lightheadedness, palpitations, syncope, other Respiratory: Denies: no symptoms, cough, shortness of breath, SOB with excertion, SOB at rest, sputum, wheezing, other Gastrointestinal/Abdominal: Denies: no symptoms, abdomen distended, abdominal pain, black stools, tarry stools, blood in stool, constipated, diarrhea, difficulty swallowing, nausea, poor appetite, poor fluid intake, rectal bleeding, vomiting, other Genitourinary: Denies: no symptoms, burning, discharge, frequency, flank pain, hematuria, incontinence, pain, urgency, other Neurologic/Psychiatric: Denies: no symptoms, anxiety, depressed, emotional problems, headache, numbness, paresthesia, pre-existing deficit, seizure, tingling, tremors, weakness, other Endocrine: Denies: no symptoms, excessive sweating, flushing, intolerance to cold, intolerance to heat, increased hunger, increased thirst, increased urine, unexplained weight gain, unexplained weight loss, other Allergies: Coded Allergies: No Known Allergies (Unverified , 03/18/19) Subjective 01/07 meds noted, no bleeding, hgb 10, no hemolysis, hgb 10.1 01/08 labs reviewed, vi rn, no major events, no bleeding, hgb lower 01/09 labs noted, no bleeding, vi rn, no major changes, plt lower 01/10 did have epistaxis overnight, no bleeding, night sweats, epistaxis better 01/12 icu, remains on vent, levo, no bleeding, meds noted 01/13 remains in icu, no bleeding, on levo, no major changes 01/14 icu, is on 1l, restarints are off, no bleeding, no night sweats 01/15 icu, meds noted, with diarrhea, rectal tube reinserted, on nc 01/16 out of icu, no bleeding, meds reviewed, cbc ad bmp pending 01/17 unable to lay still for the mri, thus ct ordered, vi [facility] 01/19 hgb 6.9, no bleeding, no hemolysis, ct reviewed 01/20 obtunded, meds reviewed, hgb is better, in icu 01/21 obtunded, npo, labs hjave been reviewed, hgb 9.2 Objective Objective Current Medications Medications (Trade) Dose Ordered Sig/Jesse Route PRN Reason Start Time Stop Time Status Last Admin Dose Admin Acetaminophen (Tylenol) 650 mg Q4H PRN ORAL PRNH/TEMP 01/05/20 20:15 02/04/20 20:14 01/12/20 03:10 Bisacodyl (Dulcolax) 10 mg DAILY PRN RECTAL Constipation 01/05/20 20:15 04/04/20 20:14 Chlorhexidine Gluconate (Nayva-Hex 2%) 1 applic DAILY@2000 TOPIC 01/11/20 20:00 04/10/20 19:59 01/21/20 20:23 Dextrose (Dextrose 50%) 25 ml Q30M PRN IV Hypoglycemia 01/05/20 20:15 04/04/20 20:14 Dextrose (Dextrose 50%) 50 ml Q30M PRN IV Hypoglycemia 01/05/20 20:15 04/04/20 20:14 Furosemide 100 mg/ Dextrose 100 ml @ 5 mls/hr Q20H IV 01/20/20 11:30 02/19/20 11:29 01/22/20 03:31 Linaclotide (Linzess) 290 mcg BEFORE BREAKFAST ORAL 01/10/20 06:30 04/09/20 06:29 01/22/20 05:48 Metoclopramide HCl (Reglan) 10 mg EVERY 6 HOURS NG 01/19/20 12:00 02/18/20 11:59 01/22/20 05:21 Metoclopramide HCl (Reglan) 10 mg Q6H PRN IVP Nausea & Vomiting 01/16/20 13:00 02/15/20 12:59 Midodrine (Pro-Amatine) 10 mg Q8HR NG 01/20/20 22:00 04/13/20 17:59 01/22/20 05:21 Norepinephrine Bitartrate 250 ml @ 0 mls/hr Q24H PRN IV For hypotension 01/20/20 08:00 01/23/20 07:59 01/20/20 09:28 Ondansetron HCl (Zofran) 4 mg Q6H PRN IVP Nausea & Vomiting 01/10/20 06:30 12/5/20 06:29 Pantoprazole (Protonix) 40 mg EVERY 12 HOURS IVP 01/20/20 21:00 02/19/20 20:59 01/21/20 20:23 Polyethylene Glycol (Miralax) 17 gm BEDTIME NG 01/11/20 21:00 02/08/20 20:59 01/20/20 20:22 Potassium Chloride 100 ml @ 50 mls/hr ONCE IVPB 01/21/20 11:00 04/20/20 10:59 01/21/20 11:50 Sennosides (Senokot) 8.6 mg QHS NG 01/11/20 21:00 02/04/20 20:59 01/20/20 20:22 Vitamin D (Vitamin D) 3,000 intlu DAILY GT 01/19/20 12:00 02/18/20 11:59 01/21/20 08:33 Last 24 Hour Vital Signs Date Time Temp Pulse Resp B/P (MAP) Pulse Ox O2 Delivery O2 Flow Rate FiO2 01/22/20 04:44 80 19 40 01/22/20 04:00 40 01/22/20 04:00 Mechanical Ventilator 01/22/20 04:00 97.4 85 18 105/64 (78) 99 01/22/20 03:01 87 01/22/20 03:00 85 18 104/64 (77) 100 01/22/20 02:58 83 18 40 01/22/20 02:00 86 20 107/62 (77) 100 01/22/20 01:00 87 20 101/62 (75) 100 01/22/20 00:42 86 19 40 01/22/20 00:00 98.3 85 19 107/63 (78) 100 01/22/20 00:00 40 01/22/20 00:00 Mechanical Ventilator 01/21/20 23:02 88 01/21/20 23:00 88 19 100/59 (73) 100 01/21/20 22:58 86 19 40 01/21/20 22:00 93 18 104/60 (75) 100 01/21/20 21:11 93 19 40 01/21/20 21:00 88 19 97/60 (72) 100 01/21/20 20:00 Mechanical Ventilator 01/21/20 20:00 40 01/21/20 20:00 98.7 90 19 101/60 (74) 100 01/21/20 19:43 83 01/21/20 19:08 83 18 40 01/21/20 19:00 85 12 103/68 (80) 100 01/21/20 18:00 82 12 103/59 (74) 100 01/21/20 17:00 40 01/21/20 17:00 92 12 100/62 (75) 100 01/21/20 16:44 81 25 40 01/21/20 16:00 87 01/21/20 16:00 Mechanical Ventilator 01/21/20 16:00 98.8 89 16 101/58 (72) 100 01/21/20 16:00 40 01/21/20 15:24 93 22 40 01/21/20 15:00 83 16 103/55 (71) 100 01/21/20 14:00 82 16 110/63 (79) 100 01/21/20 13:30 94 16 99/57 (71) 100 01/21/20 13:29 94 20 40 01/21/20 13:00 98.5 97 16 102/60 (74) 100 01/21/20 13:00 Mechanical Ventilator 01/21/20 12:30 101 19 103/55 (71) 100 01/21/20 12:15 91 19 97/56 (70) 100 01/21/20 12:00 98.0 91 19 100/56 (71) 100 01/21/20 12:00 124 01/21/20 12:00 Mechanical Ventilator 01/21/20 12:00 40 01/21/20 11:45 91 19 101/59 (73) 100 01/21/20 11:30 93 19 93/58 (70) 100 01/21/20 11:15 92 20 106/59 (75) 100 01/21/20 11:00 95 20 102/58 (73) 100 01/21/20 10:52 95 20 40 01/21/20 10:30 96 17 94/62 (73) 100 01/21/20 10:18 101 21 101/61 (74) 100 01/21/20 10:15 89 20 85/50 (62) 100 01/21/20 10:00 94 22 107/63 (78) 100 01/21/20 09:45 95 20 110/62 (78) 100 01/21/20 09:30 103 22 103/58 (73) 100 01/21/20 09:15 96 21 113/69 (84) 100 01/21/20 09:00 101 22 111/65 (80) 100 01/21/20 09:00 Mechanical Ventilator 01/21/20 08:45 99 22 105/66 (79) 100 01/21/20 08:37 101 22 40 01/21/20 08:30 96 21 102/56 (71) 100 01/21/20 08:15 96 22 111/57 (75) 100 01/21/20 08:00 40 01/21/20 08:00 100 01/21/20 08:00 98.3 94 21 95/51 (66) 100 01/21/20 07:21 102 23 40 01/21/20 05:25 113 21 40 01/21/20 04:00 108 01/21/20 04:00 110 24 129/73 (91) 100 01/21/20 03:39 110 22 40 01/21/20 03:00 108 22 126/74 (91) 100 01/21/20 02:00 111 24 136/80 (98) 100 01/21/20 01:21 104 22 40 01/21/20 01:00 108 22 125/64 (84) 100 01/21/20 00:00 98.7 107 24 113/60 (77) 100 01/21/20 00:00 110 01/21/20 00:00 2.0 40 01/20/20 23:05 102 23 40 01/20/20 23:00 104 24 117/61 (79) 100 01/20/20 22:00 104 25 126/64 (84) 100 01/20/20 21:12 112 25 40 01/20/20 21:00 Endotracheal Tube 01/20/20 21:00 117 27 115/61 (79) 100 01/20/20 20:00 2.0 40 01/20/20 20:00 110 01/20/20 20:00 99.4 114 25 124/62 (82) 100 01/20/20 19:16 117 25 40 01/20/20 19:00 113 25 142/70 (94) 100 01/20/20 18:30 99.1 113 25 138/75 (96) 100 01/20/20 18:00 109 24 135/77 (96) 100 01/20/20 17:30 111 24 136/75 (95) 100 01/20/20 17:20 109 24 40 01/20/20 17:00 95 25 113/63 (80) 100 01/20/20 16:30 96 26 115/61 (79) 100 01/20/20 16:14 103 01/20/20 16:00 Endotracheal Tube 01/20/20 16:00 98.2 95 24 113/61 (78) 100 01/20/20 15:35 100 25 40 01/20/20 15:30 97 23 114/61 (78) 100 01/20/20 15:00 97 25 113/62 (79) 100 01/20/20 14:30 98 27 111/64 (80) 100 01/20/20 14:00 99 23 122/70 (87) 100 01/20/20 13:20 107 25 40 01/20/20 13:00 103 24 111/61 (78) 100 01/20/20 12:30 96 24 119/62 (81) 100 01/20/20 12:04 97 01/20/20 12:00 98.3 97 24 116/63 (80) 100 01/20/20 12:00 Endotracheal Tube 01/20/20 11:29 94 26 50 01/20/20 11:00 96 24 104/59 (74) 100 01/20/20 10:40 94 26 107/58 (74) 100 01/20/20 10:25 94 28 112/60 (77) 100 01/20/20 10:10 92 28 108/63 (78) 100 01/20/20 09:55 90 29 114/60 (78) 100 01/20/20 09:40 98 29 94/61 (72) 100 01/20/20 09:35 98.5 100 30 85/57 (66) 100 01/20/20 09:30 99 29 81/55 (64) 100 01/20/20 09:28 79/51 01/20/20 09:25 99 27 79/51 (60) 100 01/20/20 09:20 97 25 50 01/20/20 09:00 105 23 99/61 (74) 100 01/20/20 08:30 50 01/20/20 08:00 Endotracheal Tube 01/20/20 08:00 94 30 93/61 (72) 100 01/20/20 07:50 94 01/20/20 07:20 91 25 80 Intake and Output 01/21/20 01/22/20 19:00 07:00 Intake Total 725 ml 380 ml Output Total 1020 ml 1210 ml Balance -295 ml -830 ml Free Water 200 ml 100 ml IV Total 5 ml 55 ml Tube Feeding 520 ml 225 ml Output Urine Total 1000 ml 1150 ml Stool Total 20 ml 60 ml Labs Test 01/19/20 07:15 01/19/20 23:32 01/20/20 04:11 01/20/20 04:38 POC Whole Blood Glucose 95 MG/DL (74-106) 106 MG/DL (74-106) 126 MG/DL (74-106) Arterial Blood pH 7.130 (7.350-7.450) Arterial Blood Partial Pressure CO2 49.1 mmHg (35.0-45.0) Arterial Blood Partial Pressure O2 300.7 mmHg (75.0-100.0) Arterial Blood HCO3 16.0 mmol/L (22.0-26.0) Arterial Blood Oxygen Saturation 99.2 % (95-100) Arterial Blood Base Excess -12.5 (-2-2) Asael Test Positive Test 01/20/20 06:23 01/20/20 08:11 01/20/20 12:47 01/20/20 16:10 White Blood Count 7.2 K/UL (4.8-10.8) 7.7 K/UL (4.8-10.8) Red Blood Count 2.41 M/UL (4.70-6.10) 3.19 M/UL (4.70-6.10) Hemoglobin 6.9 G/DL (14.2-18.0) 9.0 G/DL (14.2-18.0) Hematocrit 22.7 % (42.0-52.0) 27.4 % (42.0-52.0) Mean Corpuscular Volume 94 FL (80-99) 86 FL (80-99) Mean Corpuscular Hemoglobin 28.7 PG (27.0-31.0) 28.3 PG (27.0-31.0) Mean Corpuscular Hemoglobin Concent 30.5 G/DL (32.0-36.0) 32.9 G/DL (32.0-36.0) Red Cell Distribution Width 22.5 % (11.6-14.8) 19.3 % (11.6-14.8) Platelet Count 68 K/UL (150-450) 84 K/UL (150-450) Mean Platelet Volume 8.0 FL (6.5-10.1) 8.0 FL (6.5-10.1) Neutrophils (%) (Auto) % (45.0-75.0) % (45.0-75.0) Lymphocytes (%) (Auto) % (20.0-45.0) % (20.0-45.0) Monocytes (%) (Auto) % (1.0-10.0) % (1.0-10.0) Eosinophils (%) (Auto) % (0.0-3.0) % (0.0-3.0) Basophils (%) (Auto) % (0.0-2.0) % (0.0-2.0) Differential Total Cells Counted 100 100 Neutrophils % (Manual) 88 % (45-75) 89 % (45-75) Lymphocytes % (Manual) 6 % (20-45) 8 % (20-45) Monocytes % (Manual) 6 % (1-10) 3 % (1-10) Eosinophils % (Manual) 0 % (0-3) 0 % (0-3) Basophils % (Manual) 0 % (0-2) 0 % (0-2) Band Neutrophils 0 % (0-8) 0 % (0-8) Nucleated Red Blood Cells 2 /100 WBC Platelet Estimate Decreased Decreased Platelet Morphology Normal Normal Polychromasia 1+ Hypochromasia 1+ 1+ Anisocytosis 3+ 1+ Reticulocyte Count 1.6 % (0.5-2.0) Sodium Level 144 MMOL/L (136-145) Potassium Level 4.6 MMOL/L (3.5-5.1) Chloride Level 113 MMOL/L (98-107) Carbon Dioxide Level 20 MMOL/L (21-32) Anion Gap 11 mmol/L (5-15) Blood Urea Nitrogen 17 mg/dL (7-18) Creatinine 1.4 MG/DL (0.55-1.30) Estimat Glomerular Filtration Rate > 60 mL/min (>60) Glucose Level 132 MG/DL (74-106) Uric Acid 3.8 MG/DL (2.6-7.2) Calcium Level 7.6 MG/DL (8.5-10.1) Phosphorus Level 5.4 MG/DL (2.5-4.9) Magnesium Level 1.8 MG/DL (1.8-2.4) Total Bilirubin 0.2 MG/DL (0.2-1.0) Aspartate Amino Transf (AST/SGOT) 151 U/L (15-37) Alanine Aminotransferase (ALT/SGPT) 58 U/L (12-78) Alkaline Phosphatase 103 U/L (46-116) Total Protein 4.5 G/DL (6.4-8.2) Albumin 1.7 G/DL (3.4-5.0) Globulin 2.8 g/dL Albumin/Globulin Ratio 0.6 (1.0-2.7) Prostate Specific Antigen 2741.31 ng/mL (0.13-4.0) Arterial Blood pH 7.440 (7.350-7.450) Arterial Blood Partial Pressure CO2 22.7 mmHg (35.0-45.0) Arterial Blood Partial Pressure O2 333.0 mmHg (75.0-100.0) Arterial Blood HCO3 15.1 mmol/L (22.0-26.0) Arterial Blood Oxygen Saturation 99.3 % (95-100) Arterial Blood Base Excess -8.1 (-2-2) Asael Test Positive POC Whole Blood Glucose 83 MG/DL (74-106) Test 01/20/20 18:17 01/21/20 04:30 01/21/20 07:49 01/21/20 13:00 POC Whole Blood Glucose 87 MG/DL (74-106) 126 MG/DL (74-106) White Blood Count 7.1 K/UL (4.8-10.8) Red Blood Count 3.22 M/UL (4.70-6.10) Hemoglobin 9.3 G/DL (14.2-18.0) Hematocrit 28.7 % (42.0-52.0) Mean Corpuscular Volume 89 FL (80-99) Mean Corpuscular Hemoglobin 28.8 PG (27.0-31.0) Mean Corpuscular Hemoglobin Concent 32.3 G/DL (32.0-36.0) Red Cell Distribution Width 19.8 % (11.6-14.8) Platelet Count 88 K/UL (150-450) Mean Platelet Volume 7.2 FL (6.5-10.1) Neutrophils (%) (Auto) % (45.0-75.0) Lymphocytes (%) (Auto) % (20.0-45.0) Monocytes (%) (Auto) % (1.0-10.0) Eosinophils (%) (Auto) % (0.0-3.0) Basophils (%) (Auto) % (0.0-2.0) Sodium Level 145 MMOL/L (136-145) Potassium Level 3.3 MMOL/L (3.5-5.1) Chloride Level 111 MMOL/L (98-107) Carbon Dioxide Level 22 MMOL/L (21-32) Anion Gap 12 mmol/L (5-15) Blood Urea Nitrogen 20 mg/dL (7-18) Creatinine 1.6 MG/DL (0.55-1.30) Estimat Glomerular Filtration Rate 51.9 mL/min (>60) Glucose Level 91 MG/DL (74-106) Uric Acid 4.6 MG/DL (2.6-7.2) Calcium Level 7.5 MG/DL (8.5-10.1) Phosphorus Level 3.3 MG/DL (2.5-4.9) Magnesium Level 1.3 MG/DL (1.8-2.4) Total Bilirubin 0.5 MG/DL (0.2-1.0) Gamma Glutamyl Transpeptidase 87 U/L (5-85) Aspartate Amino Transf (AST/SGOT) 110 U/L (15-37) Alanine Aminotransferase (ALT/SGPT) 46 U/L (12-78) Alkaline Phosphatase 122 U/L (46-116) Total Creatine Kinase 193 U/L (26-308) Troponin I 0.062 ng/mL (0.000-0.056) C-Reactive Protein, Quantitative 7.3 mg/dL (0.00-0.90) Pro-B-Type Natriuretic Peptide 3910 pg/mL (0-125) Total Protein 5.0 G/DL (6.4-8.2) Albumin 1.9 G/DL (3.4-5.0) Globulin 3.1 g/dL Albumin/Globulin Ratio 0.6 (1.0-2.7) Arterial Blood pH 7.475 (7.350-7.450) Arterial Blood Partial Pressure CO2 23.5 mmHg (35.0-45.0) Arterial Blood Partial Pressure O2 132.8 mmHg (75.0-100.0) Arterial Blood HCO3 16.9 mmol/L (22.0-26.0) Arterial Blood Oxygen Saturation 98.3 % (95-100) Arterial Blood Base Excess -5.4 (-2-2) Asael Test Positive Test 01/21/20 17:26 01/22/20 01:03 01/22/20 04:58 01/22/20 05:10 POC Whole Blood Glucose 107 MG/DL (74-106) 91 MG/DL (74-106) White Blood Count 6.5 K/UL (4.8-10.8) Red Blood Count 3.22 M/UL (4.70-6.10) Hemoglobin 9.2 G/DL (14.2-18.0) Hematocrit 28.7 % (42.0-52.0) Mean Corpuscular Volume 89 FL (80-99) Mean Corpuscular Hemoglobin 28.6 PG (27.0-31.0) Mean Corpuscular Hemoglobin Concent 32.0 G/DL (32.0-36.0) Red Cell Distribution Width 19.8 % (11.6-14.8) Platelet Count 95 K/UL (150-450) Mean Platelet Volume 7.4 FL (6.5-10.1) Neutrophils (%) (Auto) % (45.0-75.0) Lymphocytes (%) (Auto) % (20.0-45.0) Monocytes (%) (Auto) % (1.0-10.0) Eosinophils (%) (Auto) % (0.0-3.0) Basophils (%) (Auto) % (0.0-2.0) Height (Feet): 6 Height (Inches): 0.00 Weight (Pounds): 150 Objective PE: Vitals: reviewed General Appearance: NAD HEENT: normocephalic, atraumatic Neck: non-tender, normal alignment Respiratory/Chest: nromal breath sounds bilaterally Cardiovascular/Chest: normal peripheral pulses, normal rate Abdomen: normal bowel sounds, soft, nontender Extremities: normal range of motion Samuel Son MD Jan 22, 2020 07:03
[2020-01-22 07:28] LABS: ALANINE AMINOTRANSFERASE 32 U/L (12-78); ALBUMIN/GLOBULIN RATIO 0.7 (1.0-2.7); ALKALINE PHOSPHATASE 125 U/L (46-116); ANION GAP 9 mmol/L (5-15); ASPARTATE AMINO TRANSFERASE 57 U/L (15-37); BILIRUBIN,TOTAL 0.4 MG/DL (0.2-1.0); BLOOD UREA NITROGEN 25 mg/dL (7-18); CALCIUM 7.7 MG/DL (8.5-10.1); CARBON DIOXIDE 25 MMOL/L (21-32); CHLORIDE 109 MMOL/L (98-107); CREATININE 1.4 MG/DL (0.55-1.30); PHOSPHORUS 2.6 MG/DL (2.5-4.9); POTASSIUM 3.3 MMOL/L (3.5-5.1); SODIUM 143 MMOL/L (136-145)
--- NOTE | 2020-01-22 07:48 | Infectious Diseases Prog Note ---
Assessment/Plan 69yo M with: Shock- likely combination septic and metabolic derangements- SP Probable UTI -01/10 u/a wbc 60-80, nit neg, leuk +3; ucx Neg -Bcx NTD Probable PNA -01/12 CXR: No significant change in bilateral patchy pulmondary opacities, concerning for pneumonia versus edemaq. Small bilateral pleural effusions. -01/10 CXR: Bilateral interstitial and airspace infiltrates versus edema persists. sp cx MRSA (S Vancomycin, bactrim, tetracycline) COVID19 neg -01/04 rapid COVID PCR neg x1 influenza PCR neg CXR: Mild interstitial vascular prominence. No focal infiltrate or consolidation. 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 Etiology not demonstrated. Empty bladder with a Mathew catheter. 3 hypoechoic lesions within the pancreatic head and body, each measuring about 5 mm. Appearance nonspecific. Bilateral pleural effusions. Echogenic liver, consistent with hepatocellular disease. Surface likely nodularity raises concern for cirrhosis. Gallbladder sludge. Negative for dilated bile ducts. Probable nonobstructive left intrarenal calculi. Multiple hepatic cysts Acute on chronic encephalopathy -CT head: 1. Markedly limited, near nondiagnostic evaluation due to motion artifact. Grossly, age-related changes and small vessel disease of aging are noted. Again grossly, no acute intracranial pathology is detected. If there is a high degree of concern or if there is concern for subtle abnormalities, magnetic resonance imaging of the brain with diffusion-weighted sequences should be performed, due to the markedly limited nature of the current study. Close clinical correlation is necessary. HTN COPD DM2 paraplegia Dementia non verbal [place] resident ([facility]) Plan: Cont to monitor off abx -01/18 SP vanco IV #7 -01/16 SP Cefepime #4 -01/13 SP ZOsyn #4 -01/06 SP Ceftriaxone #2 -01/04 Sp IV Vancomycin x1, Cefepime x1 -f/u cx -Monitor CBC/CMP, temperatures -Renal, cards f/u -aspiration precautions D/w RN Thank you for consulting [facility]. Will continue to follow along with you. Subjective Allergies: Coded Allergies: No Known Allergies (Unverified , 03/18/19) AF WBC 6.5 NAD on vent, 40% PEEP 5 Objective Last 24 Hour Vital Signs Date Time Temp Pulse Resp B/P (MAP) Pulse Ox O2 Delivery O2 Flow Rate FiO2 01/22/20 04:44 80 19 40 01/22/20 04:00 40 01/22/20 04:00 Mechanical Ventilator 01/22/20 04:00 97.4 85 18 105/64 (78) 99 01/22/20 03:01 87 01/22/20 03:00 85 18 104/64 (77) 100 01/22/20 02:58 83 18 40 01/22/20 02:00 86 20 107/62 (77) 100 01/22/20 01:00 87 20 101/62 (75) 100 01/22/20 00:42 86 19 40 01/22/20 00:00 98.3 85 19 107/63 (78) 100 01/22/20 00:00 40 01/22/20 00:00 Mechanical Ventilator 01/21/20 23:02 88 01/21/20 23:00 88 19 100/59 (73) 100 01/21/20 22:58 86 19 40 01/21/20 22:00 93 18 104/60 (75) 100 01/21/20 21:11 93 19 40 01/21/20 21:00 88 19 97/60 (72) 100 01/21/20 20:00 Mechanical Ventilator 01/21/20 20:00 40 01/21/20 20:00 98.7 90 19 101/60 (74) 100 01/21/20 19:43 83 01/21/20 19:08 83 18 40 01/21/20 19:00 85 12 103/68 (80) 100 01/21/20 18:00 82 12 103/59 (74) 100 01/21/20 17:00 40 01/21/20 17:00 92 12 100/62 (75) 100 01/21/20 16:44 81 25 40 01/21/20 16:00 87 01/21/20 16:00 Mechanical Ventilator 01/21/20 16:00 98.8 89 16 101/58 (72) 100 01/21/20 16:00 40 01/21/20 15:24 93 22 40 01/21/20 15:00 83 16 103/55 (71) 100 01/21/20 14:00 82 16 110/63 (79) 100 01/21/20 13:30 94 16 99/57 (71) 100 01/21/20 13:29 94 20 40 01/21/20 13:00 98.5 97 16 102/60 (74) 100 01/21/20 13:00 Mechanical Ventilator 01/21/20 12:30 101 19 103/55 (71) 100 01/21/20 12:15 91 19 97/56 (70) 100 01/21/20 12:00 98.0 91 19 100/56 (71) 100 01/21/20 12:00 124 01/21/20 12:00 Mechanical Ventilator 01/21/20 12:00 40 01/21/20 11:45 91 19 101/59 (73) 100 01/21/20 11:30 93 19 93/58 (70) 100 01/21/20 11:15 92 20 106/59 (75) 100 01/21/20 11:00 95 20 102/58 (73) 100 01/21/20 10:52 95 20 40 01/21/20 10:30 96 17 94/62 (73) 100 01/21/20 10:18 101 21 101/61 (74) 100 01/21/20 10:15 89 20 85/50 (62) 100 01/21/20 10:00 94 22 107/63 (78) 100 01/21/20 09:45 95 20 110/62 (78) 100 01/21/20 09:30 103 22 103/58 (73) 100 01/21/20 09:15 96 21 113/69 (84) 100 01/21/20 09:00 101 22 111/65 (80) 100 01/21/20 09:00 Mechanical Ventilator 01/21/20 08:45 99 22 105/66 (79) 100 01/21/20 08:37 101 22 40 01/21/20 08:30 96 21 102/56 (71) 100 01/21/20 08:15 96 22 111/57 (75) 100 01/21/20 08:00 40 01/21/20 08:00 100 01/21/20 08:00 98.3 94 21 95/51 (66) 100 Height (Feet): 6 Height (Inches): 0.00 Weight (Pounds): 150 Gen: NAD in bed HEENT: NCAT CV: RRR Pulm: BL chest rise on vent Abd: Soft, Non-distended Ext: No c/c/e Neuro: Awake Laboratory Tests Test 01/21/20 07:49 01/21/20 13:00 01/21/20 17:26 01/22/20 01:03 Arterial Blood pH 7.475 (7.350-7.450) Arterial Blood Partial Pressure CO2 23.5 mmHg (35.0-45.0) *L Arterial Blood Partial Pressure O2 132.8 mmHg (75.0-100.0) H Arterial Blood HCO3 16.9 mmol/L (22.0-26.0) *L Arterial Blood Oxygen Saturation 98.3 % (95-100) Arterial Blood Base Excess -5.4 (-2-2) L Asael Test Positive POC Whole Blood Glucose 126 MG/DL (74-106) H Pending 107 MG/DL (74-106) H Test 01/22/20 04:58 01/22/20 05:10 POC Whole Blood Glucose 91 MG/DL (74-106) White Blood Count 6.5 K/UL (4.8-10.8) Red Blood Count 3.22 M/UL (4.70-6.10) L Hemoglobin 9.2 G/DL (14.2-18.0) L Hematocrit 28.7 % (42.0-52.0) L Mean Corpuscular Volume 89 FL (80-99) Mean Corpuscular Hemoglobin 28.6 PG (27.0-31.0) Mean Corpuscular Hemoglobin Concent 32.0 G/DL (32.0-36.0) Red Cell Distribution Width 19.8 % (11.6-14.8) H Platelet Count 95 K/UL (150-450) L Mean Platelet Volume 7.4 FL (6.5-10.1) Neutrophils (%) (Auto) % (45.0-75.0) Lymphocytes (%) (Auto) % (20.0-45.0) Monocytes (%) (Auto) % (1.0-10.0) Eosinophils (%) (Auto) % (0.0-3.0) Basophils (%) (Auto) % (0.0-2.0) Sodium Level 143 MMOL/L (136-145) Potassium Level 3.3 MMOL/L (3.5-5.1) L Chloride Level 109 MMOL/L (98-107) H Carbon Dioxide Level 25 MMOL/L (21-32) Anion Gap 9 mmol/L (5-15) Blood Urea Nitrogen 25 mg/dL (7-18) H Creatinine 1.4 MG/DL (0.55-1.30) H Estimat Glomerular Filtration Rate > 60 mL/min (>60) Glucose Level 81 MG/DL (74-106) Uric Acid 5.2 MG/DL (2.6-7.2) Calcium Level 7.7 MG/DL (8.5-10.1) L Phosphorus Level 2.6 MG/DL (2.5-4.9) Magnesium Level 1.8 MG/DL (1.8-2.4) Total Bilirubin 0.4 MG/DL (0.2-1.0) Aspartate Amino Transf (AST/SGOT) 57 U/L (15-37) H Alanine Aminotransferase (ALT/SGPT) 32 U/L (12-78) Alkaline Phosphatase 125 U/L (46-116) H Troponin I 0.033 ng/mL (0.000-0.056) C-Reactive Protein, Quantitative 7.0 mg/dL (0.00-0.90) H Pro-B-Type Natriuretic Peptide 2365 pg/mL (0-125) H Total Protein 5.0 G/DL (6.4-8.2) L Albumin 2.0 G/DL (3.4-5.0) L Globulin 3.0 g/dL Albumin/Globulin Ratio 0.7 (1.0-2.7) L Current Medications Medications (Trade) Dose Ordered Sig/Jesse Route PRN Reason Start Time Stop Time Status Last Admin Dose Admin Acetaminophen (Tylenol) 650 mg Q4H PRN ORAL PRNH/TEMP 01/05/20 20:15 02/04/20 20:14 01/12/20 03:10 Bisacodyl (Dulcolax) 10 mg DAILY PRN RECTAL Constipation 01/05/20 20:15 04/04/20 20:14 Chlorhexidine Gluconate (Navya-Hex 2%) 1 applic DAILY@2000 TOPIC 01/11/20 20:00 04/10/20 19:59 01/21/20 20:23 Dextrose (Dextrose 50%) 25 ml Q30M PRN IV Hypoglycemia 01/05/20 20:15 04/04/20 20:14 Dextrose (Dextrose 50%) 50 ml Q30M PRN IV Hypoglycemia 01/05/20 20:15 04/04/20 20:14 Furosemide 100 mg/ Dextrose 100 ml @ 5 mls/hr Q20H IV 01/20/20 11:30 02/19/20 11:29 01/22/20 03:31 Linaclotide (Linzess) 290 mcg BEFORE BREAKFAST ORAL 01/10/20 06:30 04/09/20 06:29 01/22/20 05:48 Metoclopramide HCl (Reglan) 10 mg EVERY 6 HOURS NG 01/19/20 12:00 02/18/20 11:59 01/22/20 05:21 Metoclopramide HCl (Reglan) 10 mg Q6H PRN IVP Nausea & Vomiting 01/16/20 13:00 02/15/20 12:59 Midodrine (Pro-Amatine) 10 mg Q8HR NG 01/20/20 22:00 04/13/20 17:59 01/22/20 05:21 Norepinephrine Bitartrate 250 ml @ 0 mls/hr Q24H PRN IV For hypotension 01/20/20 08:00 01/23/20 07:59 01/20/20 09:28 Ondansetron HCl (Zofran) 4 mg Q6H PRN IVP Nausea & Vomiting 01/10/20 06:30 02/09/20 06:29 Pantoprazole (Protonix) 40 mg EVERY 12 HOURS IVP 01/20/20 21:00 02/19/20 20:59 01/21/20 20:23 Polyethylene Glycol (Miralax) 17 gm BEDTIME NG 01/11/20 21:00 02/08/20 20:59 01/20/20 20:22 Potassium Chloride 100 ml @ 50 mls/hr ONCE IVPB 01/21/20 11:00 04/20/20 10:59 01/21/20 11:50 Sennosides (Senokot) 8.6 mg QHS NG 01/11/20 21:00 02/04/20 20:59 01/20/20 20:22 Vitamin D (Vitamin D) 3,000 intlu DAILY GT 01/19/20 12:00 02/18/20 11:59 01/21/20 08:33 Nayana Ochoa M.D. Jan 22, 2020 07:48
--- NOTE | 2020-01-22 08:29 | Cardiac Electrophysiology PN ---
Assessment/Plan Assessment/Plan 1. Altered mental status due to severe dehydration in view of sodium of 160 and acute renal failure. On IV fluids and IV antibiotics. Ruled out for NH. 2. S/P Septic shock off Levophed and on iv Abx On Midodrine 10 tid 3. History of CVA, off Plavix in view of hematuria. 4. Respiratory failure on the Vent now. 5. Diabetes. 6. Acute renal failure. Cr 4.2. Had HD once only on 01/11/20. No more HD needed and Cr 1.2 7. Hematuria 8. Anemia with Hb 5.8 and coffee ground emesis. FU Dr Bueno 9. Shock liver with increase AST>2000 10. Pancreatic mass x3. CT abdomen and pelvis showed Large pelvic mass involving the prostate, bladder presumably representing prostatic malignancy 11. Dysphagia, NGT feeding. PEG pending ethics sue DIETRICH RN Subjective Subjective Coded 01/19 for respiratory failure followed by bradycardia and PEA. Intubated on the vent in ICU off Levo On Lasix drip at 5 mg/hr. Unresponsive on 40% Fio2 Objective Last 24 Hour Vital Signs Date Time Temp Pulse Resp B/P (MAP) Pulse Ox O2 Delivery O2 Flow Rate FiO2 01/22/20 06:30 80 20 01/22/20 04:44 80 19 40 01/22/20 04:00 40 01/22/20 04:00 Mechanical Ventilator 01/22/20 04:00 97.4 85 18 105/64 (78) 99 01/22/20 03:01 87 01/22/20 03:00 85 18 104/64 (77) 100 01/22/20 02:58 83 18 40 01/22/20 02:00 86 20 107/62 (77) 100 01/22/20 01:00 87 20 101/62 (75) 100 01/22/20 00:42 86 19 40 01/22/20 00:00 98.3 85 19 107/63 (78) 100 01/22/20 00:00 40 01/22/20 00:00 Mechanical Ventilator 01/21/20 23:02 88 01/21/20 23:00 88 19 100/59 (73) 100 01/21/20 22:58 86 19 40 01/21/20 22:00 93 18 104/60 (75) 100 01/21/20 21:11 93 19 40 01/21/20 21:00 88 19 97/60 (72) 100 01/21/20 20:00 Mechanical Ventilator 01/21/20 20:00 40 01/21/20 20:00 98.7 90 19 101/60 (74) 100 01/21/20 19:43 83 01/21/20 19:08 83 18 40 01/21/20 19:00 85 12 103/68 (80) 100 01/21/20 18:00 82 12 103/59 (74) 100 01/21/20 17:00 40 01/21/20 17:00 92 12 100/62 (75) 100 01/21/20 16:44 81 25 40 01/21/20 16:00 87 01/21/20 16:00 Mechanical Ventilator 01/21/20 16:00 98.8 89 16 101/58 (72) 100 01/21/20 16:00 40 01/21/20 15:24 93 22 40 01/21/20 15:00 83 16 103/55 (71) 100 01/21/20 14:00 82 16 110/63 (79) 100 01/21/20 13:30 94 16 99/57 (71) 100 01/21/20 13:29 94 20 40 01/21/20 13:00 98.5 97 16 102/60 (74) 100 01/21/20 13:00 Mechanical Ventilator 01/21/20 12:30 101 19 103/55 (71) 100 01/21/20 12:15 91 19 97/56 (70) 100 01/21/20 12:00 98.0 91 19 100/56 (71) 100 01/21/20 12:00 124 01/21/20 12:00 Mechanical Ventilator 01/21/20 12:00 40 01/21/20 11:45 91 19 101/59 (73) 100 01/21/20 11:30 93 19 93/58 (70) 100 01/21/20 11:15 92 20 106/59 (75) 100 01/21/20 11:00 95 20 102/58 (73) 100 01/21/20 10:52 95 20 40 01/21/20 10:30 96 17 94/62 (73) 100 01/21/20 10:18 101 21 101/61 (74) 100 01/21/20 10:15 89 20 85/50 (62) 100 01/21/20 10:00 94 22 107/63 (78) 100 01/21/20 09:45 95 20 110/62 (78) 100 01/21/20 09:30 103 22 103/58 (73) 100 01/21/20 09:15 96 21 113/69 (84) 100 01/21/20 09:00 101 22 111/65 (80) 100 01/21/20 09:00 Mechanical Ventilator 01/21/20 08:45 99 22 105/66 (79) 100 01/21/20 08:37 101 22 40 01/21/20 08:30 96 21 102/56 (71) 100 Intake and Output 01/21/20 01/22/20 19:00 07:00 Intake Total 725 ml 385 ml Output Total 1020 ml 1210 ml Balance -295 ml -825 ml Free Water 200 ml 100 ml IV Total 5 ml 60 ml Tube Feeding 520 ml 225 ml Output Urine Total 1000 ml 1150 ml Stool Total 20 ml 60 ml Laboratory Tests Test 01/21/20 13:00 01/21/20 17:26 01/22/20 01:03 01/22/20 04:58 POC Whole Blood Glucose 126 MG/DL (74-106) H Pending 107 MG/DL (74-106) H 91 MG/DL (74-106) Test 01/22/20 05:10 White Blood Count 6.5 K/UL (4.8-10.8) Red Blood Count 3.22 M/UL (4.70-6.10) L Hemoglobin 9.2 G/DL (14.2-18.0) L Hematocrit 28.7 % (42.0-52.0) L Mean Corpuscular Volume 89 FL (80-99) Mean Corpuscular Hemoglobin 28.6 PG (27.0-31.0) Mean Corpuscular Hemoglobin Concent 32.0 G/DL (32.0-36.0) Red Cell Distribution Width 19.8 % (11.6-14.8) H Platelet Count 95 K/UL (150-450) L Mean Platelet Volume 7.4 FL (6.5-10.1) Neutrophils (%) (Auto) % (45.0-75.0) Lymphocytes (%) (Auto) % (20.0-45.0) Monocytes (%) (Auto) % (1.0-10.0) Eosinophils (%) (Auto) % (0.0-3.0) Basophils (%) (Auto) % (0.0-2.0) Sodium Level 143 MMOL/L (136-145) Potassium Level 3.3 MMOL/L (3.5-5.1) L Chloride Level 109 MMOL/L (98-107) H Carbon Dioxide Level 25 MMOL/L (21-32) Anion Gap 9 mmol/L (5-15) Blood Urea Nitrogen 25 mg/dL (7-18) H Creatinine 1.4 MG/DL (0.55-1.30) H Estimat Glomerular Filtration Rate > 60 mL/min (>60) Glucose Level 81 MG/DL (74-106) Uric Acid 5.2 MG/DL (2.6-7.2) Calcium Level 7.7 MG/DL (8.5-10.1) L Phosphorus Level 2.6 MG/DL (2.5-4.9) Magnesium Level 1.8 MG/DL (1.8-2.4) Total Bilirubin 0.4 MG/DL (0.2-1.0) Aspartate Amino Transf (AST/SGOT) 57 U/L (15-37) H Alanine Aminotransferase (ALT/SGPT) 32 U/L (12-78) Alkaline Phosphatase 125 U/L (46-116) H Troponin I 0.033 ng/mL (0.000-0.056) C-Reactive Protein, Quantitative 7.0 mg/dL (0.00-0.90) H Pro-B-Type Natriuretic Peptide 2365 pg/mL (0-125) H Total Protein 5.0 G/DL (6.4-8.2) L Albumin 2.0 G/DL (3.4-5.0) L Globulin 3.0 g/dL Albumin/Globulin Ratio 0.7 (1.0-2.7) L Objective HEAD AND NECK: Orally intubated.NGT in place LUNGS: Coarse rhonchi. CARDIOVASCULAR: Regular S1 and S2 with no gallop. ABDOMEN: Soft. EXTREMITIES: No pitting edema.Right groin Mega in place Kevin Lopez MD Jan 22, 2020 08:29
--- NOTE | 2020-01-22 10:34 | Pulmonology Progress Note ---
Subjective ROS Limited/Unobtainable: No Interval Events: remains intubated in ICU Constitutional: Reports: no symptoms HEENT: Repors: no symptoms Respiratory: Reports: no symptoms Cardiovascular: Reports: no symptoms Gastrointestinal/Abdominal: Reports: no symptoms Genitourinary: Reports: no symptoms Allergies: Coded Allergies: No Known Allergies (Unverified , 03/18/19) All Systems: reviewed and negative except above Objective Last 24 Hour Vital Signs Date Time Temp Pulse Resp B/P (MAP) Pulse Ox O2 Delivery O2 Flow Rate FiO2 01/22/20 06:30 80 20 01/22/20 04:44 80 19 40 01/22/20 04:00 40 01/22/20 04:00 Mechanical Ventilator 01/22/20 04:00 97.4 85 18 105/64 (78) 99 01/22/20 03:01 87 01/22/20 03:00 85 18 104/64 (77) 100 01/22/20 02:58 83 18 40 01/22/20 02:00 86 20 107/62 (77) 100 01/22/20 01:00 87 20 101/62 (75) 100 01/22/20 00:42 86 19 40 01/22/20 00:00 98.3 85 19 107/63 (78) 100 01/22/20 00:00 40 01/22/20 00:00 Mechanical Ventilator 01/21/20 23:02 88 01/21/20 23:00 88 19 100/59 (73) 100 01/21/20 22:58 86 19 40 01/21/20 22:00 93 18 104/60 (75) 100 01/21/20 21:11 93 19 40 01/21/20 21:00 88 19 97/60 (72) 100 01/21/20 20:00 Mechanical Ventilator 01/21/20 20:00 40 01/21/20 20:00 98.7 90 19 101/60 (74) 100 01/21/20 19:43 83 01/21/20 19:08 83 18 40 01/21/20 19:00 85 12 103/68 (80) 100 01/21/20 18:00 82 12 103/59 (74) 100 01/21/20 17:00 40 01/21/20 17:00 92 12 100/62 (75) 100 01/21/20 16:44 81 25 40 11/16/20 16:00 87 01/21/20 16:00 Mechanical Ventilator 01/21/20 16:00 98.8 89 16 101/58 (72) 100 01/21/20 16:00 40 01/21/20 15:24 93 22 40 01/21/20 15:00 83 16 103/55 (71) 100 01/21/20 14:00 82 16 110/63 (79) 100 01/21/20 13:30 94 16 99/57 (71) 100 01/21/20 13:29 94 20 40 01/21/20 13:00 98.5 97 16 102/60 (74) 100 01/21/20 13:00 Mechanical Ventilator 01/21/20 12:30 101 19 103/55 (71) 100 01/21/20 12:15 91 19 97/56 (70) 100 01/21/20 12:00 98.0 91 19 100/56 (71) 100 01/21/20 12:00 124 01/21/20 12:00 Mechanical Ventilator 01/21/20 12:00 40 01/21/20 11:45 91 19 101/59 (73) 100 01/21/20 11:30 93 19 93/58 (70) 100 01/21/20 11:15 92 20 106/59 (75) 100 01/21/20 11:00 95 20 102/58 (73) 100 01/21/20 10:52 95 20 40 Intake and Output 01/21/20 01/22/20 19:00 07:00 Intake Total 725 ml 385 ml Output Total 1020 ml 1210 ml Balance -295 ml -825 ml Free Water 200 ml 100 ml IV Total 5 ml 60 ml Tube Feeding 520 ml 225 ml Output Urine Total 1000 ml 1150 ml Stool Total 20 ml 60 ml General Appearance: no acute distress HEENT: normocephalic Respiratory: chest wall non-tender, lungs clear Cardiovascular: normal peripheral pulses, normal rate Abdomen: normal bowel sounds Laboratory Tests 01/21/20 13:00: POC Whole Blood Glucose 126H 01/21/20 17:26: POC Whole Blood Glucose [Pending] 01/22/20 01:03: POC Whole Blood Glucose 107H 01/22/20 04:58: POC Whole Blood Glucose 91 01/22/20 05:10: White Blood Count 6.5, Red Blood Count 3.22L, Hemoglobin 9.2L, Hematocrit 28.7L, Mean Corpuscular Volume 89, Mean Corpuscular Hemoglobin 28.6, Mean Corpuscular Hemoglobin Concent 32.0, Red Cell Distribution Width 19.8H, Platelet Count 95L, Mean Platelet Volume 7.4, Neutrophils (%) (Auto) , Lymphocytes (%) (Auto) , Monocytes (%) (Auto) , Eosinophils (%) (Auto) , Basophils (%) (Auto) , Sodium Level 143, Potassium Level 3.3L, Chloride Level 109H, Carbon Dioxide Level 25, Anion Gap 9, Blood Urea Nitrogen 25H, Creatinine 1.4H, Estimat Glomerular Filtration Rate > 60, Glucose Level 81, Uric Acid 5.2, Calcium Level 7.7L, Phosphorus Level 2.6, Magnesium Level 1.8, Total Bilirubin 0.4, Aspartate Amino Transf (AST/SGOT) 57H, Alanine Aminotransferase (ALT/SGPT) 32, Alkaline Phosphatase 125H, Troponin I 0.033, C-Reactive Protein, Quantitative 7.0H, Pro-B-Type Natriuretic Peptide 2365H, Total Protein 5.0L, Albumin 2.0L, Globulin 3.0, Albumin/Globulin Ratio 0.7L 01/22/20 09:28: Arterial Blood pH 7.544H, Arterial Blood Partial Pressure CO2 24.6*L, Arterial Blood Partial Pressure O2 121.2H, Arterial Blood HCO3 20.8L, Arterial Blood Oxygen Saturation 98.1, Arterial Blood Base Excess -0.8, Asael Test Positive Current Medications Medications (Trade) Dose Ordered Sig/Jesse Route PRN Reason Start Time Stop Time Status Last Admin Dose Admin Acetaminophen (Tylenol) 650 mg Q4H PRN ORAL PRNH/TEMP 01/05/20 20:15 02/04/20 20:14 01/12/20 03:10 Bisacodyl (Dulcolax) 10 mg DAILY PRN RECTAL Constipation 01/05/20 20:15 04/04/20 20:14 Chlorhexidine Gluconate (Navya-Hex 2%) 1 applic DAILY@1999 TOPIC 01/11/20 20:00 04/10/20 19:59 01/21/20 20:23 Dextrose (Dextrose 50%) 25 ml Q30M PRN IV Hypoglycemia 01/05/20 20:15 04/04/20 20:14 Dextrose (Dextrose 50%) 50 ml Q30M PRN IV Hypoglycemia 01/05/20 20:15 04/04/20 20:14 Furosemide 100 mg/ Dextrose 100 ml @ 5 mls/hr Q20H IV 01/20/20 11:30 02/19/20 11:29 01/22/20 03:31 Linaclotide (Linzess) 290 mcg BEFORE BREAKFAST ORAL 01/10/20 06:30 04/09/20 06:29 01/22/20 05:48 Metoclopramide HCl (Reglan) 10 mg EVERY 6 HOURS NG 01/19/20 12:00 02/18/20 11:59 01/22/20 05:21 Metoclopramide HCl (Reglan) 10 mg Q6H PRN IVP Nausea & Vomiting 01/16/20 13:00 02/15/20 12:59 Midodrine (Pro-Amatine) 10 mg Q8HR NG 01/20/20 22:00 04/13/20 17:59 01/22/20 05:21 Norepinephrine Bitartrate 250 ml @ 0 mls/hr Q24H PRN IV For hypotension 01/20/20 08:00 01/23/20 07:59 01/20/20 09:28 Ondansetron HCl (Zofran) 4 mg Q6H PRN IVP Nausea & Vomiting 01/10/20 06:30 02/09/20 06:29 Pantoprazole (Protonix) 40 mg EVERY 12 HOURS IVP 01/20/20 21:00 02/19/20 20:59 01/21/20 20:23 Polyethylene Glycol (Miralax) 17 gm BEDTIME NG 01/11/20 21:00 02/08/20 20:59 01/20/20 20:22 Potassium Chloride 100 ml @ 100 mls/hr Q1HR IVPB 01/22/20 10:00 01/22/20 13:59 Sennosides (Senokot) 8.6 mg QHS NG 01/11/20 21:00 02/04/20 20:59 01/20/20 20:22 Vitamin D (Vitamin D) 3,000 intlu DAILY GT 01/19/20 12:00 02/18/20 11:59 01/21/20 08:33 Assessment/Plan Assessment/Plan IMPRESSION: 1. Severe metabolic acidosis. Corrected; now has combined respiratory and metabolic alkalosis 2. Respiratory failure; reintubated 3. Diarrhea. 4. Acute renal failure. Nephrology following; 5. Anemia; DISCUSSION: ABG reviewed. Will adjust vent. Will attempt wean Will dc Lasix drip. Continue pressors prn. Will add Diamox Check CXR and labs in AM CXR much improved after diuresis Daxa Infante Omar Syed MD Jan 22, 2020 10:34
[2020-01-22] MEDS: Vitamin D 1000 IU Tab GT SCH (10:44)
[2020-01-22] MEDS: Pantoprazole Inj IVP SCH ×2 (10:45→20:06)
--- NOTE | 2020-01-22 13:06 | General Progress Note ---
Subjective ROS Limited/Unobtainable: No Allergies: Coded Allergies: No Known Allergies (Unverified , 03/18/19) Objective Last 24 Hour Vital Signs Date Time Temp Pulse Resp B/P (MAP) Pulse Ox O2 Delivery O2 Flow Rate FiO2 01/22/20 11:14 75 17 40 01/22/20 09:18 78 16 40 01/22/20 09:00 99 01/22/20 07:15 78 15 40 40 01/22/20 06:30 80 20 01/22/20 04:44 80 19 40 01/22/20 04:00 40 01/22/20 04:00 Mechanical Ventilator 01/22/20 04:00 97.4 85 18 105/64 (78) 99 01/22/20 03:01 87 01/22/20 03:00 85 18 104/64 (77) 100 01/22/20 02:58 83 18 40 01/22/20 02:00 86 20 107/62 (77) 100 01/22/20 01:00 87 20 101/62 (75) 100 01/22/20 00:42 86 19 40 01/22/20 00:00 98.3 85 19 107/63 (78) 100 01/22/20 00:00 40 01/22/20 00:00 Mechanical Ventilator 01/21/20 23:02 88 01/21/20 23:00 88 19 100/59 (73) 100 01/21/20 22:58 86 19 40 01/21/20 22:00 93 18 104/60 (75) 100 01/21/20 21:11 93 19 40 01/21/20 21:00 88 19 97/60 (72) 100 01/21/20 20:00 Mechanical Ventilator 01/21/20 20:00 40 01/21/20 20:00 98.7 90 19 101/60 (74) 100 01/21/20 19:43 83 01/21/20 19:08 83 18 40 01/21/20 19:00 85 12 103/68 (80) 100 01/21/20 18:00 82 12 103/59 (74) 100 01/21/20 17:00 40 01/21/20 17:00 92 12 100/62 (75) 100 01/21/20 16:44 81 25 40 01/21/20 16:00 87 01/21/20 16:00 Mechanical Ventilator 01/21/20 16:00 98.8 89 16 101/58 (72) 100 01/21/20 16:00 40 01/21/20 15:24 93 22 40 01/21/20 15:00 83 16 103/55 (71) 100 01/21/20 14:00 82 16 110/63 (79) 100 01/21/20 13:30 94 16 99/57 (71) 100 01/21/20 13:29 94 20 40 Intake and Output 01/21/20 01/22/20 19:00 07:00 Intake Total 725 ml 385 ml Output Total 1020 ml 1210 ml Balance -295 ml -825 ml Free Water 200 ml 100 ml IV Total 5 ml 60 ml Tube Feeding 520 ml 225 ml Output Urine Total 1000 ml 1150 ml Stool Total 20 ml 60 ml Laboratory Tests 01/21/20 17:26: POC Whole Blood Glucose [Pending] 01/22/20 01:03: POC Whole Blood Glucose 107H 01/22/20 04:58: POC Whole Blood Glucose 91 01/22/20 05:10: White Blood Count 6.5, Red Blood Count 3.22L, Hemoglobin 9.2L, Hematocrit 28.7L, Mean Corpuscular Volume 89, Mean Corpuscular Hemoglobin 28.6, Mean Corpuscular Hemoglobin Concent 32.0, Red Cell Distribution Width 19.8H, Platelet Count 95L, Mean Platelet Volume 7.4, Neutrophils (%) (Auto) , Lymphocytes (%) (Auto) , Monocytes (%) (Auto) , Eosinophils (%) (Auto) , Basophils (%) (Auto) , Sodium Level 143, Potassium Level 3.3L, Chloride Level 109H, Carbon Dioxide Level 25, Anion Gap 9, Blood Urea Nitrogen 25H, Creatinine 1.4H, Estimat Glomerular Filtra tion Rate > 60, Glucose Level 81, Uric Acid 5.2, Calcium Level 7.7L, Phosphorus Level 2.6, Magnesium Level 1.8, Total Bilirubin 0.4, Aspartate Amino Transf (AST/SGOT) 57H, Alanine Aminotransferase (ALT/SGPT) 32, Alkaline Phosphatase 125H, Troponin I 0.033, C-Reactive Protein, Quantitative 7.0H, Pro-B-Type Natriuretic Peptide 2365H, Total Protein 5.0L, Albumin 2.0L, Globulin 3.0, Albumin/Globulin Ratio 0.7L 01/22/20 09:28: Arterial Blood pH 7.544H, Arterial Blood Partial Pressure CO2 24.6*L, Arterial Blood Partial Pressure O2 121.2H, Arterial Blood HCO3 20.8L, Arterial Blood Oxygen Saturation 98.1, Arterial Blood Base Excess -0.8, Asael Test Positive Height (Feet): 6 Height (Inches): 0.00 Weight (Pounds): 150 General Appearance: no apparent distress EENT: normal ENT inspection Neck: supple Cardiovascular: normal rate Respiratory/Chest: decreased breath sounds Abdomen: normal bowel sounds, non tender, soft Extremities: non-tender Assessment/Plan Status: unchanged Assessment/Plan: AMS dementia Anemia DM hyper CA elevated AST low albumin COPD RI HTN metastatic prostate CA NPO NGTF post blood transfusion poor prognosis bioethics consult for PEG Paulino Bueno MD Jan 22, 2020 13:06
--- NOTE | 2020-01-22 13:24 | General Progress Note ---
Subjective Constitutional: Reports: weakness Allergies: Coded Allergies: No Known Allergies (Unverified , 03/18/19) All Systems: reviewed and negative except above Subjective intubated ng in icu Objective Last 24 Hour Vital Signs Date Time Temp Pulse Resp B/P (MAP) Pulse Ox O2 Delivery O2 Flow Rate FiO2 01/22/20 11:14 75 17 40 01/22/20 09:18 78 16 40 01/22/20 09:00 99 01/22/20 07:15 78 15 40 40 01/22/20 06:30 80 20 01/22/20 04:44 80 19 40 01/22/20 04:00 40 01/22/20 04:00 Mechanical Ventilator 01/22/20 04:00 97.4 85 18 105/64 (78) 99 01/22/20 03:01 87 01/22/20 03:00 85 18 104/64 (77) 100 01/22/20 02:58 83 18 40 01/22/20 02:00 86 20 107/62 (77) 100 01/22/20 01:00 87 20 101/62 (75) 100 01/22/20 00:42 86 19 40 01/22/20 00:00 98.3 85 19 107/63 (78) 100 01/22/20 00:00 40 01/22/20 00:00 Mechanical Ventilator 01/21/20 23:02 88 01/21/20 23:00 88 19 100/59 (73) 100 01/21/20 22:58 86 19 40 01/21/20 22:00 93 18 104/60 (75) 100 01/21/20 21:11 93 19 40 01/21/20 21:00 88 19 97/60 (72) 100 01/21/20 20:00 Mechanical Ventilator 01/21/20 20:00 40 01/21/20 20:00 98.7 90 19 101/60 (74) 100 01/21/20 19:43 83 01/21/20 19:08 83 18 40 01/21/20 19:00 85 12 103/68 (80) 100 01/21/20 18:00 82 12 103/59 (74) 100 01/21/20 17:00 40 01/21/20 17:00 92 12 100/62 (75) 100 01/21/20 16:44 81 25 40 01/21/20 16:00 87 01/21/20 16:00 Mechanical Ventilator 01/21/20 16:00 98.8 89 16 101/58 (72) 100 01/21/20 16:00 40 01/21/20 15:24 93 22 40 01/21/20 15:00 83 16 103/55 (71) 100 01/21/20 14:00 82 16 110/63 (79) 100 01/21/20 13:30 94 16 99/57 (71) 100 01/21/20 13:29 94 20 40 Intake and Output 01/21/20 01/22/20 19:00 07:00 Intake Total 725 ml 385 ml Output Total 1020 ml 1210 ml Balance -295 ml -825 ml Free Water 200 ml 100 ml IV Total 5 ml 60 ml Tube Feeding 520 ml 225 ml Output Urine Total 1000 ml 1150 ml Stool Total 20 ml 60 ml Laboratory Tests 01/21/20 17:26: POC Whole Blood Glucose [Pending] 01/22/20 01:03: POC Whole Blood Glucose 107H 01/22/20 04:58: POC Whole Blood Glucose 91 01/22/20 05:10: White Blood Count 6.5, Red Blood Count 3.22L, Hemoglobin 9.2L, Hematocrit 28.7L, Mean Corpuscular Volume 89, Mean Corpuscular Hemoglobin 28.6, Mean Corpuscular Hemoglobin Concent 32.0, Red Cell Distribution Width 19.8H, Platelet Count 95L, Mean Platelet Volume 7.4, Neutrophils (%) (Auto) , Lymphocytes (%) (Auto) , Monocytes (%) (Auto) , Eosinophils (%) (Auto) , Basophils (%) (Auto) , Sodium Level 143, Potassium Level 3.3L, Chloride Level 109H, Carbon Dioxide Level 25, Anion Gap 9, Blood Urea Nitrogen 25H, Creatinine 1.4H, Estimat Glomerular Filtration Rate > 60, Glucose Level 81, Uric Acid 5.2, Calcium Level 7.7L, Phosphorus Level 2.6, Magnesium Level 1.8, Total Bilirubin 0.4, Aspartate Amino Transf (AST/SGOT) 57H, Alanine Aminotransferase (ALT/SGPT) 32, Alkaline Phosphatase 125H, Troponin I 0.033, C-Reactive Protein, Quantitative 7.0H, Pro-B-Type Natriuretic Peptide 2365H, Total Protein 5.0L, Albumin 2.0L, Globulin 3.0, Albumin/Globulin Ratio 0.7L 01/22/20 09:28: Arterial Blood pH 7.544H, Arterial Blood Partial Pressure CO2 24.6*L, Arterial Blood Partial Pressure O2 121.2H, Arterial Blood HCO3 20.8L, Arterial Blood Oxygen Saturation 98.1, Arterial Blood Base Excess -0.8, Asael Test Positive Height (Feet): 6 Height (Inches): 0.00 Weight (Pounds): 150 General Appearance: lethargic EENT: normal ENT inspection Neck: normal alignment Cardiovascular: normal peripheral pulses, normal rate, regular rhythm Respiratory/Chest: chest wall non-tender, lungs clear, normal breath sounds Abdomen: normal bowel sounds, non tender, soft Extremities: normal inspection Edema: no edema noted Arm (L), no edema noted Arm (R), no edema noted Leg (L), no edema noted Leg (R), no edema noted Pedal (L), no edema noted Pedal (R), no edema noted Generalized Neurologic: motor weakness Skin: normal pigmentation, warm/dry Assessment/Plan Problem List: (1) Anemia ICD Codes: D64.9 - Anemia, unspecified SNOMED: 196735513 (2) Paraplegia ICD Codes: G82.20 - Paraplegia, unspecified SNOMED: 75773952 (3) Diabetes ICD Codes: E11.9 - Type 2 diabetes mellitus without complications SNOMED: 54401739 (4) Weak ICD Codes: R53.1 - Weakness SNOMED: 42909082 (5) HTN (hypertension) ICD Codes: I10 - Essential (primary) hypertension SNOMED: 33367318 (6) ARF (acute renal failure) ICD Codes: N17.9 - Acute kidney failure, unspecified SNOMED: 56555383 (7) Altered level of consciousness ICD Codes: R40.4 - Transient alteration of awareness SNOMED: 5132407 (8) Dehydration ICD Codes: E86.0 - Dehydration SNOMED: 76894119 (9) Hypernatremia ICD Codes: E87.0 - Hyperosmolality and hypernatremia SNOMED: 266114316 Status: unchanged Assessment/Plan: vent abx ivf wean vent cbc bmp am Farrukh Ríos DO Jan 22, 2020 13:24
[2020-01-22] MEDS ORDERED: NS 275ml ONE (14:29)
[2020-01-22] MEDS ORDERED: Tubing IV Secondary IV ONE (14:29)
--- NOTE | 2020-01-22 15:22 | Surgery Progress Note ---
Surgery Progress Note Subjective Procedure Performed Right femoral temporary hemodialysis catheter insertion Additional Comments ill appearing labs noted exam stable dressings going well Objective Last 24 Hour Vital Signs Date Time Temp Pulse Resp B/P (MAP) Pulse Ox O2 Delivery O2 Flow Rate FiO2 01/22/20 12:00 40 01/22/20 12:00 78 01/22/20 12:00 Mechanical Ventilator 01/22/20 11:45 77 90/54 (66) 100 01/22/20 11:30 76 92/54 (67) 100 01/22/20 11:15 73 95/56 (69) 100 01/22/20 11:14 75 17 40 01/22/20 11:00 77 134/76 (95) 100 01/22/20 10:45 76 100/59 (73) 100 01/22/20 10:30 76 90/54 (66) 100 01/22/20 10:15 75 96/55 (69) 100 01/22/20 10:00 74 99/56 (70) 100 01/22/20 09:45 77 95/58 (70) 100 01/22/20 09:30 77 94/56 (69) 100 01/22/20 09:18 78 16 40 01/22/20 09:15 78 99/58 (72) 100 01/22/20 09:00 99 01/22/20 09:00 77 95/55 (68) 100 01/22/20 08:45 78 97/58 (71) 100 01/22/20 08:30 77 86/54 (65) 100 01/22/20 08:15 78 90/55 (67) 100 01/22/20 08:00 Mechanical Ventilator 01/22/20 08:00 79 96/58 (71) 100 01/22/20 08:00 40 01/22/20 08:00 80 01/22/20 07:45 79 93/55 (68) 100 01/22/20 07:30 82 17 119/71 (87) 100 01/22/20 07:15 80 17 105/61 (76) 100 01/22/20 07:15 78 15 40 40 01/22/20 07:00 98.3 81 17 109/66 (80) 100 01/22/20 06:30 80 20 01/22/20 04:44 80 19 40 11/17/20 04:00 40 01/22/20 04:00 Mechanical Ventilator 01/22/20 04:00 97.4 85 18 105/64 (78) 99 01/22/20 03:01 87 01/22/20 03:00 85 18 104/64 (77) 100 01/22/20 02:58 83 18 40 01/22/20 02:00 86 20 107/62 (77) 100 01/22/20 01:00 87 20 101/62 (75) 100 01/22/20 00:42 86 19 40 01/22/20 00:00 98.3 85 19 107/63 (78) 100 01/22/20 00:00 40 01/22/20 00:00 Mechanical Ventilator 01/21/20 23:02 88 01/21/20 23:00 88 19 100/59 (73) 100 01/21/20 22:58 86 19 40 01/21/20 22:00 93 18 104/60 (75) 100 01/21/20 21:11 93 19 40 01/21/20 21:00 88 19 97/60 (72) 100 01/21/20 20:00 Mechanical Ventilator 01/21/20 20:00 40 01/21/20 20:00 98.7 90 19 101/60 (74) 100 01/21/20 19:43 83 01/21/20 19:08 83 18 40 01/21/20 19:00 85 12 103/68 (80) 100 01/21/20 18:00 82 12 103/59 (74) 100 01/21/20 17:00 40 01/21/20 17:00 92 12 100/62 (75) 100 01/21/20 16:44 81 25 40 01/21/20 16:00 87 01/21/20 16:00 Mechanical Ventilator 01/21/20 16:00 98.8 89 16 101/58 (72) 100 01/21/20 16:00 40 01/21/20 15:24 93 22 40 I&O Intake and Output 01/21/20 01/22/20 19:00 07:00 Intake Total 725 ml 385 ml Output Total 1020 ml 1210 ml Balance -295 ml -825 ml Free Water 200 ml 100 ml IV Total 5 ml 60 ml Tube Feeding 520 ml 225 ml Output Urine Total 1000 ml 1150 ml Stool Total 20 ml 60 ml Dressing: saturated Cardiovascular: RSR Respiratory: decreased breath sounds Abdomen: soft, non-tender, decreased bowel sounds Extremities: no tenderness, no cyanosis Laboratory Tests Test 01/21/20 17:26 01/22/20 01:03 01/22/20 04:58 01/22/20 05:10 POC Whole Blood Glucose Pending 107 MG/DL (74-106) H 91 MG/DL (74-106) White Blood Count 6.5 K/UL (4.8-10.8) Red Blood Count 3.22 M/UL (4.70-6.10) L Hemoglobin 9.2 G/DL (14.2-18.0) L Hematocrit 28.7 % (42.0-52.0) L Mean Corpuscular Volume 89 FL (80-99) Mean Corpuscular Hemoglobin 28.6 PG (27.0-31.0) Mean Corpuscular Hemoglobin Concent 32.0 G/DL (32.0-36.0) Red Cell Distribution Width 19.8 % (11.6-14.8) H Platelet Count 95 K/UL (150-450) L Mean Platelet Volume 7.4 FL (6.5-10.1) Neutrophils (%) (Auto) % (45.0-75.0) Lymphocytes (%) (Auto) % (20.0-45.0) Monocytes (%) (Auto) % (1.0-10.0) Eosinophils (%) (Auto) % (0.0-3.0) Basophils (%) (Auto) % (0.0-2.0) Sodium Level 143 MMOL/L (136-145) Potassium Level 3.3 MMOL/L (3.5-5.1) L Chloride Level 109 MMOL/L (98-107) H Carbon Dioxide Level 25 MMOL/L (21-32) Anion Gap 9 mmol/L (5-15) Blood Urea Nitrogen 25 mg/dL (7-18) H Creatinine 1.4 MG/DL (0.55-1.30) H Estimat Glomerular Filtration Rate > 60 mL/min (>60) Glucose Level 81 MG/DL (74-106) Uric Acid 5.2 MG/DL (2.6-7.2) Calcium Level 7.7 MG/DL (8.5-10.1) L Phosphorus Level 2.6 MG/DL (2.5-4.9) Magnesium Level 1.8 MG/DL (1.8-2.4) Total Bilirubin 0.4 MG/DL (0.2-1.0) Aspartate Amino Transf (AST/SGOT) 57 U/L (15-37) H Alanine Aminotransferase (ALT/SGPT) 32 U/L (12-78) Alkaline Phosphatase 125 U/L (46-116) H Troponin I 0.033 ng/mL (0.000-0.056) C-Reactive Protein, Quantitative 7.0 mg/dL (0.00-0.90) H Pro-B-Type Natriuretic Peptide 2365 pg/mL (0-125) H Total Protein 5.0 G/DL (6.4-8.2) L Albumin 2.0 G/DL (3.4-5.0) L Globulin 3.0 g/dL Albumin/Globulin Ratio 0.7 (1.0-2.7) L Test 01/22/20 09:28 Arterial Blood pH 7.544 (7.350-7.450) Arterial Blood Partial Pressure CO2 24.6 mmHg (35.0-45.0) *L Arterial Blood Partial Pressure O2 121.2 mmHg (75.0-100.0) H Arterial Blood HCO3 20.8 mmol/L (22.0-26.0) L Arterial Blood Oxygen Saturation 98.1 % (95-100) Arterial Blood Base Excess -0.8 (-2-2) Asael Test Positive Plan Problems: (1) Altered level of consciousness (2) Hypovolemic shock Assessment & Plan: resuscitation extubated monitor respiratory keep hob elevated supplemental O2 Gallbladder demonstrates sludge. No stones, wall thickening, nor pericholecystic fluid. Patient unable to report Wilson's sign Common bile duct measures 3 mm in diameter. No intrahepatic biliary ductal dilatation. Liver demonstrates coarsened echogenicity and surface nodularity. It demonstrates multiple cysts. Portal vein and hepatic veins are patent. The pancreas demonstrates 3 hypoechoic lesions in the head and body, measuring approximately 5 mm in diameter each. Spleen is unremarkable, poorly visualized. Left kidney measures 11.4 cm in length. Right kidney measures 11.3 cm length. Both kidneys demonstrate normal echogenicity. There is severe right and moderate left hydronephrosis. Echogenic foci are seen in the left renal sinus and collecting system. Bladder is empty, contains a Mathew catheter. Non-aneurysmal abdominal aorta . There are bilateral pleural effusions Impression: Bilateral right greater than left hydronephrosis, increased since prior study of 03/20/2019. Etiology not demonstrated Empty bladder with a Mathew catheter 3 hypoechoic lesions within the pancreatic head and body, each measuring about 5 mm. Appearance nonspecific. Recommend further evaluation with pancreas protocol MRI Bilateral pleural effusions Echogenic liver, consistent with hepatocellular disease. Surface likely nodularity raises concern for cirrhosis Gallbladder sludge. Negative for dilated bile ducts Probable nonobstructive left intrarenal calculi Multiple hepatic cysts (3) Lactic acid acidosis (4) Hypernatremia (5) Paraplegia (6) Anemia Assessment & Plan: no active bleeding noted no large hematoma dressings okay likely related to heme will monitor transfuse prbc with HD trend labs thank you (7) Diabetes (8) Weak (9) HTN (hypertension) (10) ARF (acute renal failure) (11) Hypercalcemia (12) Hyperuricemia (13) Dehydration (14) UTI (urinary tract infection) (15) Failure to thrive in adult Assessment & Plan: patient identified to have DTI on bilateral heels right with 5cm x 4cm area of dti not open no drainage no signs of infection left with 3cm x 2cm. pillow under leg optifoam dressings nutritional optimization will follow no acute surgery DAILY ESTIMATED NEEDS: Needs based on underweight, suspected wt loss, HD, CRITICAL CARE/ 57.6kg 25-33 kcals/kg 6225-0421 total kcals 1.2-2 g protein/kg 69-115 g total protein 25-30 mL/kg 7920-6238 total fluid mLs NUTRITION DIAGNOSIS: *Increased kcal and pro needs r/t underweight status, suspected significant wt loss as evidenced by pt @ 71% IBW w/ BMI 17.2, underweight per guidelines, w/ suspected signficant wt loss of 30lbs/19% in 10 months. * Swallowing difficulty R/T dysphagia, respiratory status as evidenced by s/p NGT insertion (01/08), now NPO, s/p code blue (01/10), orally intubated. CURRENT TF:NPO ENTERAL NUTRITION RECOMMENDATIONS: WHEN HEMODYNAMICALLY STABLE: Nepro @ 40ml/hr x 24 hrs to provide 960ml, 1728kcal, 77g prot, 698ml free water WHEN HEMODYNAMICALLY STABLE AND MEDICALLY APPROPRIATE TO FEED: -> initiate TF @ 5ml/hr x 6hrs, advance slowly 5ml q 4-6 hrs as tolerated to goal rate -> HOB over 30 degrees/ water flush per MD WITHOUT HEMODYNAMIC STABILITY -> If medically appropriate to feed, rec trophic feeding of Nepro @ 5ml/hr x 24 hrs to maintain gut integrity (16) Pelvic mass Assessment & Plan: invasive pelvic mass likely prostate necrotic nodes likely spread recommend colonoscopy given invasion possible to rectum oncology input thank you There is a large pelvic mass which is cephalad to but inseparable from the prostate. This also is inseparable from the posterior wall of the bladder and there appears to be circumferential bladder wall thickening. This mass also appears to involve the seminal vesicles. This measures approximately 8.8 cm transverse by 10 cm craniocaudad by 7.4 cm AP. The periphery of this mass is very lobulated. The mass may also invade the adjacent rectum. There is bilateral iliac chain lymphadenopathy, with nodes measuring up to 3 cm in diameter. Some of these nodes are very low in attenuation indicating that they are necrotic. There is also retroperitoneal lymphadenopathy. There is severe right and moderate left hydronephrosis and bilateral hydroureter. The dilated ureters terminate at the level of the mass. No intrinsic renal parenchymal abnormality. The pancreas is unremarkable. No findings corresponding to the areas of low-attenuation described on prior sonogram are evident. No pancreatic ductal dilatation is evident. The liver demonstrates multiple cysts. The gallbladder, bile ducts, spleen, adrenals are unremarkable. The bones demonstrate diffuse involvement with multiple mixed osteolytic/osteosclerotic lesions, mostly sclerotic component predominating. There is a right groin dialysis catheter in place, tip at the level of the iliac venous confluence. There is a nasogastric tube,, tip in the stomach. There is a Mathew catheter. There is a rectal tube lying outside the patient with the balloon inflated within the inner gluteal fold. There are bilateral pleural effusions. There is compressive atelectasis of most if not all of both lower lobes. 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 Compressive atelectasis of most of not all of both lower lobes Other findings as noted, including multiple liver cysts Lázaro Jenkins Jan 22, 2020 15:22
--- NOTE | 2020-01-22 16:39 | Nephrology Progress Note ---
Assessment/Plan Problem List: (1) ARF (acute renal failure) (2) Hypernatremia (3) Hypovolemic shock (4) Altered level of consciousness (5) Hypercalcemia (6) Hyperuricemia (7) Pelvic mass Assessment: Prostate cancer Assessment Acute renal failure Possible underlying chronic kidney failure Severe dehydration Hypernatremia indicative of severe water deficit Severe hyperuricemia, partly due to dehydration and renal failure Acute metabolic and toxic encephalopathy Mild, malnutrition Anemia Lactic acid, possible sepsis Hypercalcemia Plan January 21: Patient on low-dose pressors. Remains hypotensive. Renal parameters stable. Weaning trial in process. Mental status remains poor. January 20: Patient in ICU. Intubated. Full code. Has advanced prostate cancer. On IV Lasix drip. Low magnesium and low phosphorus and low potassium noted and addressed. Continue per consultants. January 19: Patient in ICU. Intubated. Was coded yesterday. Labs reviewed. Medication list reviewed and adjusted. Continue per consultants. Patient full code. Prognosis poor. PSA over 2700 January 18: Labs reviewed. IV fluid discontinued. IV calcium dose decreased. Midodrine dose decreased. Reglan and Protonix changed to GT route. Vitamin D initiated. Continue to monitor renal parameters and calcium level. January 17: Labs reviewed. Abnormal electrolyte addressed. Continue per consultants. January 16: Patient now in telemetry. Labs pending. Continue to monitor renal parameters. Continue per consultants. January 15: Still in ICU. Doing well post extubation. Renal parameters improving. Not requiring any more dialysis treatment after the first dialysis treatment. Medications reviewed. Continue per consultants. January 14: Remains in ICU. Tolerating extubation. Labs reviewed. Abnormal electrolytes addressed. Serum creatinine lowering. Continue per current management. Stop Phos binders. Increase calcium IV. January 13: In ICU. Now extubated. Only dialyzed once. Urine output maintained. Serum creatinine down to 2.5. Patient has NG tube. Continue to monitor renal parameters. Continue per consultants. Abnormal electrolytes ad dressed. January 12: Remains in ICU. Intubated. Transfused yesterday. Abnormal electrolytes addressed. Dialyzed once January 10. Serum creatinine stable. Will adjust IV fluid. Monitor renal parameters. Dialysis as needed. Calcium gluconate IV ordered. Ionized calcium level ordered with tomorrow's labs. January 11: Patient in ICU. Intubated. On Levophed. Hemoglobin low. Due for transfusion. Electrolyte abnormalities noted and addressed. Patient was dialyzed yesterday. Will check lab tomorrow. Dialysis as needed. Discussed with SELIN Srivastava. January 10: Patient is doing poorly. Blood pressure low. ABG abnormal with m etabolic acidosis. IV sodium bicarb given. Serum creatinine reno. Patient has acute renal failure. Nontunneled dialysis catheter replacement ordered.. Patient need life saving dialysis treatment SRINIVAS. January 09: Labs reviewed. IV D5 and a half with sodium bicarb initiated. Serum creatinine higher. Continue to monitor renal parameters. NG feeding was changed to Nepro. Patient remains full code. Poor prognosis. January 08: Labs reviewed. IV D5W discontinued. 500 cc 3% saline ordered. NG tube for feeding and for medications. Allopurinol dose increased. Continue to monitor renal parameters serum calcium and phosphorus. January 07: Labs reviewed. Serum calcium remains elevated. Uric acid still elevated. Will give pamidronate 60 mg IV piggyback once for hypercalcemia. Continue to monitor renal parameters. Continue D5W 150 cc an hour. Start Bicitra 30 cc p.o. every 6 hours. Add allopurinol D5W IV hydration Albumin bolus N.p.o. until able to take p.o. Antibiotics Monitor renal parameters monitor calcium, monitor uric acid Subjective ROS Limited/Unobtainable: Yes Objective Objective Last 24 Hour Vital Signs Date Time Temp Pulse Resp B/P (MAP) Pulse Ox O2 Delivery O2 Flow Rate FiO2 01/22/20 12:00 40 01/22/20 12:00 78 01/22/20 12:00 Mechanical Ventilator 01/22/20 11:45 77 90/54 (66) 100 01/22/20 11:30 76 92/54 (67) 100 01/22/20 11:15 73 95/56 (69) 100 01/22/20 11:14 75 17 40 01/22/20 11:00 77 134/76 (95) 100 01/22/20 10:45 76 100/59 (73) 100 01/22/20 10:30 76 90/54 (66) 100 01/22/20 10:15 75 96/55 (69) 100 01/22/20 10:00 74 99/56 (70) 100 01/22/20 09:45 77 95/58 (70) 100 01/22/20 09:30 77 94/56 (69) 100 01/22/20 09:18 78 16 40 01/22/20 09:15 78 99/58 (72) 100 01/22/20 09:00 99 01/22/20 09:00 77 95/55 (68) 100 01/22/20 08:45 78 97/58 (71) 100 01/22/20 08:30 77 86/54 (65) 100 01/22/20 08:15 78 90/55 (67) 100 01/22/20 08:00 Mechanical Ventilator 01/22/20 08:00 79 96/58 (71) 100 01/22/20 08:00 40 01/22/20 08:00 80 01/22/20 07:45 79 93/55 (68) 100 01/22/20 07:30 82 17 119/71 (87) 100 01/22/20 07:15 80 17 105/61 (76) 100 01/22/20 07:15 78 15 40 40 01/22/20 07:00 98.3 81 17 109/66 (80) 100 01/22/20 06:30 80 20 01/22/20 04:44 80 19 40 01/22/20 04:00 40 01/22/20 04:00 Mechanical Ventilator 01/22/20 04:00 97.4 85 18 105/64 (78) 99 01/22/20 03:01 87 01/22/20 03:00 85 18 104/64 (77) 100 01/22/20 02:58 83 18 40 01/22/20 02:00 86 20 107/62 (77) 100 01/22/20 01:00 87 20 101/62 (75) 100 01/22/20 00:42 86 19 40 01/22/20 00:00 98.3 85 19 107/63 (78) 100 01/22/20 00:00 40 01/22/20 00:00 Mechanical Ventilator 01/21/20 23:02 88 01/21/20 23:00 88 19 100/59 (73) 100 01/21/20 22:58 86 19 40 01/21/20 22:00 93 18 104/60 (75) 100 01/21/20 21:11 93 19 40 01/21/20 21:00 88 19 97/60 (72) 100 01/21/20 20:00 Mechanical Ventilator 01/21/20 20:00 40 01/21/20 20:00 98.7 90 19 101/60 (74) 100 01/21/20 19:43 83 01/21/20 19:08 83 18 40 01/21/20 19:00 85 12 103/68 (80) 100 01/21/20 18:00 82 12 103/59 (74) 100 01/21/20 17:00 40 01/21/20 17:00 92 12 100/62 (75) 100 01/21/20 16:44 81 25 40 Intake and Output 01/21/20 01/22/20 19:00 07:00 Intake Total 725 ml 385 ml Output Total 1020 ml 1210 ml Balance -295 ml -825 ml Free Water 200 ml 100 ml IV Total 5 ml 60 ml Tube Feeding 520 ml 225 ml Output Urine Total 1000 ml 1150 ml Stool Total 20 ml 60 ml Current Medications Medications (Trade) Dose Ordered Sig/Jesse Route PRN Reason Start Time Stop Time Status Last Admin Dose Admin Acetaminophen (Tylenol) 650 mg Q4H PRN ORAL PRNH/TEMP 01/05/20 20:15 02/04/20 20:14 01/12/20 03:10 Acetazolamide (Diamox) 250 mg FOUR TIMES A DAY ORAL 01/22/20 13:00 02/21/20 12:59 01/22/20 13:44 Bisacodyl (Dulcolax) 10 mg DAILY PRN RECTAL Constipation 01/05/20 20:15 04/04/20 20:14 Chlorhexidine Gluconate (Navya-Hex 2%) 1 applic DAILY@1999 TOPIC 01/11/20 20:00 04/10/20 19:59 01/21/20 20:23 Dextrose (Dextrose 50%) 25 ml Q30M PRN IV Hypoglycemia 01/05/20 20:15 04/04/20 20:14 Dextrose (Dextrose 50%) 50 ml Q30M PRN IV Hypoglycemia 01/05/20 20:15 04/04/20 20:14 Linaclotide (Linzess) 290 mcg BEFORE BREAKFAST ORAL 01/10/20 06:30 04/09/20 06:29 01/22/20 05:48 Metoclopramide HCl (Reglan) 10 mg EVERY 6 HOURS NG 01/19/20 12:00 02/18/20 11:59 01/22/20 11:28 Metoclopramide HCl (Reglan) 10 mg Q6H PRN IVP Nausea & Vomiting 01/16/20 13:00 02/15/20 12:59 Midodrine (Pro-Amatine) 10 mg Q8HR NG 01/20/20 22:00 04/13/20 17:59 01/22/20 13:43 Norepinephrine Bitartrate 250 ml @ 0 mls/hr Q24H PRN IV For hypotension 01/20/20 08:00 01/23/20 07:59 01/20/20 09:28 Ondansetron HCl (Zofran) 4 mg Q6H PRN IVP Nausea & Vomiting 01/10/20 06:30 02/09/20 06:29 Pantoprazole (Protonix) 40 mg EVERY 12 HOURS IVP 01/20/20 21:00 02/19/20 20:59 01/22/20 10:45 Polyethylene Glycol (Miralax) 17 gm BEDTIME NG 01/11/20 21:00 02/08/20 20:59 01/20/20 20:22 Sennosides (Senokot) 8.6 mg QHS NG 01/11/20 21:00 02/04/20 20:59 01/20/20 20:22 Vitamin D (Vitamin D) 3,000 intlu DAILY GT 01/19/20 12:00 02/18/20 11:59 01/22/20 10:44 Laboratory Tests 01/21/20 17:26: POC Whole Blood Glucose [Pending] 01/22/20 01:03: POC Whole Blood Glucose 107H 01/22/20 04:58: POC Whole Blood Glucose 91 01/22/20 05:10: White Blood Count 6.5, Red Blood Count 3.22L, Hemoglobin 9.2L, Hematocrit 28.7L, Mean Corpuscular Volume 89, Mean Corpuscular Hemoglobin 28.6, Mean Corpuscular Hemoglobin Concent 32.0, Red Cell Distribution Width 19.8H, Platelet Count 95L, Mean Platelet Volume 7.4, Neutrophils (%) (Auto) , Lymphocytes (%) (Auto) , Monocytes (%) (Auto) , Eosinophils (%) (Auto) , Basophils (%) (Auto) , Sodium Level 143, Potassium Level 3.3L, Chloride Level 109H, Carbon Dioxide Level 25, Anion Gap 9, Blood Urea Nitrogen 25H, Creatinine 1.4H, Estimat Glomerular Filtration Rate > 60, Glucose Level 81, Uric Acid 5.2, Calcium Level 7.7L, Phosphorus Level 2.6, Magnesium Level 1.8, Total Bilirubin 0.4, Aspartate Amino Transf (AST/SGOT) 57H, Alanine Aminotransferase (ALT/SGPT) 32, Alkaline Phosphatase 125H, Troponin I 0.033, C-Reactive Protein, Quantitative 7.0H, Pro-B-Type Natriuretic Peptide 2365H, Total Protein 5.0L, Albumin 2.0L, Globulin 3.0, Albumin/Globulin Ratio 0.7L 01/22/20 09:28: Arterial Blood pH 7.544H, Arterial Blood Partial Pressure CO2 24.6*L, Arterial Blood Partial Pressure O2 121.2H, Arterial Blood HCO3 20.8L, Arterial Blood Oxygen Saturation 98.1, Arterial Blood Base Excess -0.8, Asael Test Positive Height (Feet): 6 Height (Inches): 0.00 Weight (Pounds): 150 General Appearance: other - Unresponsive on max pressors Cardiovascular: normal rate Respiratory/Chest: decreased breath sounds Abdomen: distended Dhiraj Biswas MD Jan 22, 2020 16:39
[2020-01-22] MEDS: Dyna-Hex 2% Top Sol 2oz TOPIC SCH (20:05)
[2020-01-22] MEDS: Miralax 17gm pkt NG SCH (20:06)
[2020-01-22] MEDS: Sennosides 8.6mg tab NG SCH (20:06)
[2020-01-23] VITALS (21 sets, daily range): BP systolic 92–136; BP diastolic 54–75
[2020-01-23] MEDS: Metoclopramide 10mg/10ml Liq NG SCH ×4 (05:33→23:36)
[2020-01-23] MEDS: Midodrine 10mg tab NG SCH ×3 (05:33→20:52)
[2020-01-23 05:56] LABS: BASOPHILS % (AUTO) 1.1 % (0.0-2.0); EOSINOPHILS % (AUTO) 1.1 % (0.0-3.0); HEMATOCRIT 29.2 % (42.0-52.0); HEMOGLOBIN 9.3 G/DL (14.2-18.0); LYMPHOCYTES % (AUTO) 8.7 % (20.0-45.0); MEAN CORPUSCULAR VOLUME 91 FL (80-99); MONOCYTES % (AUTO) 9.5 % (1.0-10.0); NEUTROPHILS % (AUTO) 79.6 % (45.0-75.0); PLATELET COUNT 109 K/UL (150-450); RED BLOOD COUNT 3.21 M/UL (4.70-6.10); RED CELL DISTRIBUTION WIDTH 20.5 % (11.6-14.8)
[2020-01-23 06:01] LABS: CALCIUM 7.4 MG/DL (8.5-10.1); CREATININE 1.5 MG/DL (0.55-1.30); POTASSIUM 3.7 MMOL/L (3.5-5.1)
--- NOTE | 2020-01-23 06:59 | Hematology/Onc Progress Note ---
Assessment/Plan Assessment/Plan Assessment/Recs # Metastatic prostate cancer -- w psa [id number], has a Large pelvic mass as described involving the prostate, bladder, seminal vesicles, presumably representing prostatic malignancy --> CT Evidence of disseminated malignancy, with extensive lymphadenopathy of and evidenc of diffuse osseous metastases Severe right and moderate left hydronephrosis and bilateral hydroureter, due to ureteral obstruction by the above mass --> tumor markers ordered, psa 2741 --> after above reviewed, consider further biopsy of prostate with uro as needed # Anemia of chronic disease due to underlying chronic medical issues, multifactorial v Gi bleed --> Anemia workup has been ordered, rule out gi bleed --> No evidence of hemolysis is noted, peripheral smear has been reviewed. --> Hgb goal >7. Transfuse prn. --> Epogen or iron at this time is not particularly indicated --> Medications have been reviewed --> low threshold for gi evaluation in case has occult + --> hgb 10-->9.7-->9.2->10-->8.6-->7.7-->5-->8.3->9.3->7.8-->8.2-->8.1-->9.3 --> 11/8 flow cytometry ordered bc of nucleated cells on smear # Thrombocytopenia ongoing, worsened since adm --> plt 150-->98-->82-->51->49-->46-->50-->68-->88-->109 --> hep and hiv panel--NEG --> us abd-->shows 3 small lesions, requires further eval --> CT a/p reviewed # Multiple lesions noted in pancreas --> MRI abd ordered--> nondiagnostic --> CT of the abd reviewed # Protein caloric malnutrition --> daily calorie counts --> daily weights --> mirtazapine started # Acute renal failure --> continue on ivfs --> as per renal # Hypokalemia --> replete with K # Severe dehydration --> ivfs ongoing # Hypernatremia indicative of severe water deficit # Severe hyperuricemia, partly due to dehydration and renal failure # Acute metabolic and toxic encephalopathy # Mild, malnutrition # Psych issues per psych # Lactic acid, possible sepsis # Dvt ppx heparin sq->Scds The timing of this note does not necessarily reflect the time of the patient was seen. Greatly appreciate consultation. Subjective HEENT: Denies: no symptoms, eye pain, blurred vision, tearing, double vision, ear pain, ear discharge, nose pain, nose congestion, throat pain, throat swelling, mouth pain, mouth swelling, other Cardiovascular: Denies: no symptoms, chest pain, edema, irregular heart rate, lightheadedness, palpitations, syncope, other Gastrointestinal/Abdominal: Denies: no symptoms, abdomen distended, abdominal pain, black stools, tarry stools, blood in stool, constipated, diarrhea, difficulty swallowing, nausea, poor appetite, poor fluid intake, rectal bleeding, vomiting, other Genitourinary: Denies: no symptoms, burning, discharge, frequency, flank pain, hematuria, incontinence, pain, urgency, other Neurologic/Psychiatric: Denies: no symptoms, anxiety, depressed, emotional problems, headache, numbness, paresthesia, pre-existing deficit, seizure, tingling, tremors, weakness, other Endocrine: Denies: no symptoms, excessive sweating, flushing, intolerance to cold, intolerance to heat, increased hunger, increased thirst, increased urine, unexplained weight gain, unexplained weight loss, other Hematologic/Lymphatic: Denies: no symptoms, anemia, easy bleeding, easy bruising, adenopathy, other Allergies: Coded Allergies: No Known Allergies (Unverified , 03/18/19) Subjective 01/07 meds noted, no bleeding, hgb 10, no hemolysis, hgb 10.1 01/08 labs reviewed, vi rn, no major events, no bleeding, hgb lower 01/09 labs noted, no bleeding, vi rn, no major changes, plt lower 01/10 did have epistaxis overnight, no bleeding, night sweats, epistaxis better 01/12 icu, remains on vent, levo, no bleeding, meds noted 01/13 remains in icu, no bleeding, on levo, no major changes 01/14 icu, is on 1l, restarints are off, no bleeding, no night sweats 01/15 icu, meds noted, with diarrhea, rectal tube reinserted, on nc 01/16 out of icu, no bleeding, meds reviewed, cbc ad bmp pending 01/17 unable to lay still for the mri, thus ct ordered, vi rn 01/19 hgb 6.9, no bleeding, no hemolysis, ct reviewed 01/20 obtunded, meds reviewed, hgb is better, in icu 01/21 obtunded, npo, labs hjave been reviewed, hgb 9.2 01/22 obtunded, in icu, no bleeding, plt 109 Objective Objective Current Medications Medications (Trade) Dose Ordered Sig/Jesse Route PRN Reason Start Time Stop Time Status Last Admin Dose Admin Acetaminophen (Tylenol) 650 mg Q4H PRN ORAL PRNH/TEMP 01/05/20 20:15 02/04/20 20:14 01/12/20 03:10 Acetazolamide (Diamox) 250 mg FOUR TIMES A DAY ORAL 01/22/20 13:00 02/21/20 12:59 01/22/20 20:06 Bisacodyl (Dulcolax) 10 mg DAILY PRN RECTAL Constipation 01/05/20 20:15 04/04/20 20:14 Chlorhexidine Gluconate (Navya-Hex 2%) 1 applic DAILY@2000 TOPIC 01/11/20 20:00 04/10/20 19:59 01/22/20 20:05 Dextrose (Dextrose 50%) 25 ml Q30M PRN IV Hypoglycemia 01/05/20 20:15 04/04/20 20:14 Dextrose (Dextrose 50%) 50 ml Q30M PRN IV Hypoglycemia 01/05/20 20:15 04/04/20 20:14 Linaclotide (Linzess) 290 mcg BEFORE BREAKFAST ORAL 01/10/20 06:30 04/09/20 06:29 01/23/20 05:34 Metoclopramide HCl (Reglan) 10 mg EVERY 6 HOURS NG 01/19/20 12:00 02/18/20 11:59 01/23/20 05:33 Metoclopramide HCl (Reglan) 10 mg Q6H PRN IVP Nausea & Vomiting 01/16/20 13:00 02/15/20 12:59 Midodrine (Pro-Amatine) 10 mg Q8HR NG 01/20/20 22:00 04/13/20 17:59 01/23/20 05:33 Norepinephrine Bitartrate 250 ml @ 0 mls/hr Q24H PRN IV For hypotension 01/20/20 08:00 01/23/20 07:59 01/20/20 09:28 Ondansetron HCl (Zofran) 4 mg Q6H PRN IVP Nausea & Vomiting 01/10/20 06:30 02/09/20 06:29 Pantoprazole (Protonix) 40 mg EVERY 12 HOURS IVP 01/20/20 21:00 02/19/20 20:59 01/22/20 20:06 Polyethylene Glycol (Miralax) 17 gm BEDTIME NG 01/11/20 21:00 02/08/20 20:59 01/20/20 20:22 Sennosides (Senokot) 8.6 mg QHS NG 01/11/20 21:00 02/04/20 20:59 01/22/20 20:06 Vitamin D (Vitamin D) 3,000 intlu DAILY GT 01/19/20 12:00 02/18/20 11:59 01/22/20 10:44 Last 24 Hour Vital Signs Date Time Temp Pulse Resp B/P (MAP) Pulse Ox O2 Delivery O2 Flow Rate FiO2 01/23/20 06:30 78 18 01/23/20 04:44 79 19 40 01/23/20 04:00 98.5 77 16 108/65 (79) 100 01/23/20 04:00 Mechanical Ventilator 01/23/20 04:00 40 01/23/20 03:01 82 01/23/20 03:00 82 16 102/57 (72) 100 01/23/20 02:22 81 22 40 01/23/20 02:00 80 16 104/58 (73) 100 01/23/20 01:00 82 17 95/58 (70) 100 01/23/20 00:40 78 24 40 01/23/20 00:00 98.0 78 16 96/57 (70) 100 01/23/20 00:00 Mechanical Ventilator 01/23/20 00:00 40 01/22/20 23:05 74 01/22/20 23:00 76 17 105/61 (76) 100 01/22/20 22:42 75 16 40 01/22/20 22:00 76 17 104/59 (74) 100 01/22/20 21:08 77 19 40 01/22/20 21:00 80 17 91/53 (66) 100 01/22/20 20:00 Mechanical Ventilator 01/22/20 20:00 97.9 76 16 91/54 (66) 100 01/22/20 20:00 40 01/22/20 19:21 74 22 40 01/22/20 19:16 75 01/22/20 19:00 75 15 92/58 (69) 100 01/22/20 17:20 72 19 40 01/22/20 16:00 Mechanical Ventilator 01/22/20 16:00 99.0 81 18 92/52 (65) 100 01/22/20 16:00 83 01/22/20 16:00 40 01/22/20 15:22 76 18 40 01/22/20 15:00 78 17 108/63 (78) 100 01/22/20 14:00 76 14 90/52 (65) 100 01/22/20 13:45 77 14 97/60 (72) 100 01/22/20 13:30 76 15 96/58 (71) 100 01/22/20 13:27 74 15 40 01/22/20 13:15 73 15 88/52 (64) 100 01/22/20 13:00 76 14 97/57 (70) 100 01/22/20 12:45 77 12 93/56 (68) 100 01/22/20 12:30 74 100/59 (73) 100 01/22/20 12:15 74 97/59 (72) 100 01/22/20 12:00 40 01/22/20 12:00 78 01/22/20 12:00 98.8 75 93/55 (68) 100 01/22/20 12:00 Mechanical Ventilator 01/22/20 11:45 77 90/54 (66) 100 01/22/20 11:30 76 92/54 (67) 100 01/22/20 11:15 73 95/56 (69) 100 01/22/20 11:14 75 17 40 01/22/20 11:00 77 134/76 (95) 100 01/22/20 10:45 76 100/59 (73) 100 01/22/20 10:30 76 90/54 (66) 100 01/22/20 10:15 75 96/55 (69) 100 01/22/20 10:00 74 99/56 (70) 100 01/22/20 09:45 77 95/58 (70) 100 01/22/20 09:30 77 94/56 (69) 100 01/22/20 09:18 78 16 40 01/22/20 09:15 78 99/58 (72) 100 01/22/20 09:00 99 01/22/20 09:00 77 95/55 (68) 100 01/22/20 08:45 78 97/58 (71) 100 01/22/20 08:30 77 86/54 (65) 100 01/22/20 08:15 78 90/55 (67) 100 01/22/20 08:00 Mechanical Ventilator 01/22/20 08:00 79 96/58 (71) 100 01/22/20 08:00 40 01/22/20 08:00 80 01/22/20 07:45 79 93/55 (68) 100 01/22/20 07:30 82 17 119/71 (87) 100 01/22/20 07:15 80 17 105/61 (76) 100 01/22/20 07:15 78 15 40 40 01/22/20 07:00 98.3 81 17 109/66 (80) 100 01/22/20 06:30 80 20 01/22/20 04:44 80 19 40 01/22/20 04:00 40 01/22/20 04:00 Mechanical Ventilator 01/22/20 04:00 97.4 85 18 105/64 (78) 99 01/22/20 03:01 87 01/22/20 03:00 85 18 104/64 (77) 100 01/22/20 02:58 83 18 40 01/22/20 02:00 86 20 107/62 (77) 100 01/22/20 01:00 87 20 101/62 (75) 100 01/22/20 00:42 86 19 40 01/22/20 00:00 98.3 85 19 107/63 (78) 100 01/22/20 00:00 40 01/22/20 00:00 Mechanical Ventilator 01/21/20 23:02 88 01/21/20 23:00 88 19 100/59 (73) 100 01/21/20 22:58 86 19 40 01/21/20 22:00 93 18 104/60 (75) 100 01/21/20 21:11 93 19 40 01/21/20 21:00 88 19 97/60 (72) 100 01/21/20 20:00 Mechanical Ventilator 01/21/20 20:00 40 01/21/20 20:00 98.7 90 19 101/60 (74) 100 01/21/20 19:43 83 01/21/20 19:08 83 18 40 01/21/20 19:00 85 12 103/68 (80) 100 01/21/20 18:00 82 12 103/59 (74) 100 01/21/20 17:00 40 01/21/20 17:00 92 12 100/62 (75) 100 01/21/20 16:44 81 25 40 01/21/20 16:00 87 01/21/20 16:00 Mechanical Ventilator 01/21/20 16:00 98.8 89 16 101/58 (72) 100 01/21/20 16:00 40 01/21/20 15:24 93 22 40 01/21/20 15:00 83 16 103/55 (71) 100 01/21/20 14:00 82 16 110/63 (79) 100 01/21/20 13:30 94 16 99/57 (71) 100 01/21/20 13:29 94 20 40 01/21/20 13:00 98.5 97 16 102/60 (74) 100 01/21/20 13:00 Mechanical Ventilator 01/21/20 12:30 101 19 103/55 (71) 100 01/21/20 12:15 91 19 97/56 (70) 100 01/21/20 12:00 98.0 91 19 100/56 (71) 100 01/21/20 12:00 124 01/21/20 12:00 Mechanical Ventilator 01/21/20 12:00 40 01/21/20 11:45 91 19 101/59 (73) 100 01/21/20 11:30 93 19 93/58 (70) 100 01/21/20 11:15 92 20 106/59 (75) 100 01/21/20 11:00 95 20 102/58 (73) 100 01/21/20 10:52 95 20 40 01/21/20 10:30 96 17 94/62 (73) 100 01/21/20 10:18 101 21 101/61 (74) 100 01/21/20 10:15 89 20 85/50 (62) 100 01/21/20 10:00 94 22 107/63 (78) 100 01/21/20 09:45 95 20 110/62 (78) 100 01/21/20 09:30 103 22 103/58 (73) 100 01/21/20 09:15 96 21 113/69 (84) 100 01/21/20 09:00 101 22 111/65 (80) 100 01/21/20 09:00 Mechanical Ventilator 01/21/20 08:45 99 22 105/66 (79) 100 01/21/20 08:37 101 22 40 01/21/20 08:30 96 21 102/56 (71) 100 01/21/20 08:15 96 22 111/57 (75) 100 01/21/20 08:00 40 01/21/20 08:00 100 01/21/20 08:00 98.3 94 21 95/51 (66) 100 01/21/20 07:21 102 23 40 Intake and Output 01/22/20 01/23/20 19:00 07:00 Intake Total 400 ml 625 ml Output Total 150 ml 950 ml Balance 250 ml -325 ml IV Total 220 ml Tube Feeding 180 ml 625 ml Output Urine Total 90 ml 750 ml Stool Total 60 ml 200 ml Labs Test 01/20/20 08:11 01/20/20 12:47 01/20/20 16:10 01/20/20 18:17 Arterial Blood pH 7.440 (7.350-7.450) Arterial Blood Partial Pressure CO2 22.7 mmHg (35.0-45.0) Arterial Blood Partial Pressure O2 333.0 mmHg (75.0-100.0) Arterial Blood HCO3 15.1 mmol/L (22.0-26.0) Arterial Blood Oxygen Saturation 99.3 % (95-100) Arterial Blood Base Excess -8.1 (-2-2) Asael Test Positive POC Whole Blood Glucose 83 MG/DL (74-106) 87 MG/DL (74-106) White Blood Count 7.7 K/UL (4.8-10.8) Red Blood Count 3.19 M/UL (4.70-6.10) Hemoglobin 9.0 G/DL (14.2-18.0) Hematocrit 27.4 % (42.0-52.0) Mean Corpuscular Volume 86 FL (80-99) Mean Corpuscular Hemoglobin 28.3 PG (27.0-31.0) Mean Corpuscular Hemoglobin Concent 32.9 G/DL (32.0-36.0) Red Cell Distribution Width 19.3 % (11.6-14.8) Platelet Count 84 K/UL (150-450) Mean Platelet Volume 8.0 FL (6.5-10.1) Neutrophils (%) (Auto) % (45.0-75.0) Lymphocytes (%) (Auto) % (20.0-45.0) Monocytes (%) (Auto) % (1.0-10.0) Eosinophils (%) (Auto) % (0.0-3.0) Basophils (%) (Auto) % (0.0-2.0) Differential Total Cells Counted 100 Neutrophils % (Manual) 89 % (45-75) Lymphocytes % (Manual) 8 % (20-45) Monocytes % (Manual) 3 % (1-10) Eosinophils % (Manual) 0 % (0-3) Basophils % (Manual) 0 % (0-2) Band Neutrophils 0 % (0-8) Platelet Estimate Decreased Platelet Morphology Normal Hypochromasia 1+ Anisocytosis 1+ Test 01/21/20 04:30 01/21/20 07:49 01/21/20 13:00 01/21/20 17:26 White Blood Count 7.1 K/UL (4.8-10.8) Red Blood Count 3.22 M/UL (4.70-6.10) Hemoglobin 9.3 G/DL (14.2-18.0) Hematocrit 28.7 % (42.0-52.0) Mean Corpuscular Volume 89 FL (80-99) Mean Corpuscular Hemoglobin 28.8 PG (27.0-31.0) Mean Corpuscular Hemoglobin Concent 32.3 G/DL (32.0-36.0) Red Cell Distribution Width 19.8 % (11.6-14.8) Platelet Count 88 K/UL (150-450) Mean Platelet Volume 7.2 FL (6.5-10.1) Neutrophils (%) (Auto) % (45.0-75.0) Lymphocytes (%) (Auto) % (20.0-45.0) Monocytes (%) (Auto) % (1.0-10.0) Eosinophils (%) (Auto) % (0.0-3.0) Basophils (%) (Auto) % (0.0-2.0) Sodium Level 145 MMOL/L (136-145) Potassium Level 3.3 MMOL/L (3.5-5.1) Chloride Level 111 MMOL/L (98-107) Carbon Dioxide Level 22 MMOL/L (21-32) Anion Gap 12 mmol/L (5-15) Blood Urea Nitrogen 20 mg/dL (7-18) Creatinine 1.6 MG/DL (0.55-1.30) Estimat Glomerular Filtration Rate 51.9 mL/min (>60) Glucose Level 91 MG/DL (74-106) Uric Acid 4.6 MG/DL (2.6-7.2) Calcium Level 7.5 MG/DL (8.5-10.1) Phosphorus Level 3.3 MG/DL (2.5-4.9) Magnesium Level 1.3 MG/DL (1.8-2.4) Total Bilirubin 0.5 MG/DL (0.2-1.0) Gamma Glutamyl Transpeptidase 87 U/L (5-85) Aspartate Amino Transf (AST/SGOT) 110 U/L (15-37) Alanine Aminotransferase (ALT/SGPT) 46 U/L (12-78) Alkaline Phosphatase 122 U/L (46-116) Total Creatine Kinase 193 U/L (26-308) Troponin I 0.062 ng/mL (0.000-0.056) C-Reactive Protein, Quantitative 7.3 mg/dL (0.00-0.90) Pro-B-Type Natriuretic Peptide 3910 pg/mL (0-125) Total Protein 5.0 G/DL (6.4-8.2) Albumin 1.9 G/DL (3.4-5.0) Globulin 3.1 g/dL Albumin/Globulin Ratio 0.6 (1.0-2.7) Arterial Blood pH 7.475 (7.350-7.450) Arterial Blood Partial Pressure CO2 23.5 mmHg (35.0-45.0) Arterial Blood Partial Pressure O2 132.8 mmHg (75.0-100.0) Arterial Blood HCO3 16.9 mmol/L (22.0-26.0) Arterial Blood Oxygen Saturation 98.3 % (95-100) Arterial Blood Base Excess -5.4 (-2-2) Asael Test Positive POC Whole Blood Glucose 126 MG/DL (74-106) Test 01/22/20 01:03 01/22/20 04:58 01/22/20 05:10 01/22/20 09:28 POC Whole Blood Glucose 107 MG/DL (74-106) 91 MG/DL (74-106) White Blood Count 6.5 K/UL (4.8-10.8) Red Blood Count 3.22 M/UL (4.70-6.10) Hemoglobin 9.2 G/DL (14.2-18.0) Hematocrit 28.7 % (42.0-52.0) Mean Corpuscular Volume 89 FL (80-99) Mean Corpuscular Hemoglobin 28.6 PG (27.0-31.0) Mean Corpuscular Hemoglobin Concent 32.0 G/DL (32.0-36.0) Red Cell Distribution Width 19.8 % (11.6-14.8) Platelet Count 95 K/UL (150-450) Mean Platelet Volume 7.4 FL (6.5-10.1) Neutrophils (%) (Auto) % (45.0-75.0) Lymphocytes (%) (Auto) % (20.0-45.0) Monocytes (%) (Auto) % (1.0-10.0) Eosinophils (%) (Auto) % (0.0-3.0) Basophils (%) (Auto) % (0.0-2.0) Sodium Level 143 MMOL/L (136-145) Potassium Level 3.3 MMOL/L (3.5-5.1) Chloride Level 109 MMOL/L (98-107) Carbon Dioxide Level 25 MMOL/L (21-32) Anion Gap 9 mmol/L (5-15) Blood Urea Nitrogen 25 mg/dL (7-18) Creatinine 1.4 MG/DL (0.55-1.30) Estimat Glomerular Filtration Rate > 60 mL/min (>60) Glucose Level 81 MG/DL (74-106) Uric Acid 5.2 MG/DL (2.6-7.2) Calcium Level 7.7 MG/DL (8.5-10.1) Phosphorus Level 2.6 MG/DL (2.5-4.9) Magnesium Level 1.8 MG/DL (1.8-2.4) Total Bilirubin 0.4 MG/DL (0.2-1.0) Aspartate Amino Transf (AST/SGOT) 57 U/L (15-37) Alanine Aminotransferase (ALT/SGPT) 32 U/L (12-78) Alkaline Phosphatase 125 U/L (46-116) Troponin I 0.033 ng/mL (0.000-0.056) C-Reactive Protein, Quantitative 7.0 mg/dL (0.00-0.90) Pro-B-Type Natriuretic Peptide 2365 pg/mL (0-125) Total Protein 5.0 G/DL (6.4-8.2) Albumin 2.0 G/DL (3.4-5.0) Globulin 3.0 g/dL Albumin/Globulin Ratio 0.7 (1.0-2.7) Arterial Blood pH 7.544 (7.350-7.450) Arterial Blood Partial Pressure CO2 24.6 mmHg (35.0-45.0) Arterial Blood Partial Pressure O2 121.2 mmHg (75.0-100.0) Arterial Blood HCO3 20.8 mmol/L (22.0-26.0) Arterial Blood Oxygen Saturation 98.1 % (95-100) Arterial Blood Base Excess -0.8 (-2-2) Asael Test Positive Test 01/22/20 14:37 01/22/20 18:27 01/22/20 23:08 01/23/20 04:00 POC Whole Blood Glucose 79 MG/DL (74-106) 90 MG/DL (74-106) White Blood Count 5.0 K/UL (4.8-10.8) Red Blood Count 3.21 M/UL (4.70-6.10) Hemoglobin 9.3 G/DL (14.2-18.0) Hematocrit 29.2 % (42.0-52.0) Mean Corpuscular Volume 91 FL (80-99) Mean Corpuscular Hemoglobin 28.9 PG (27.0-31.0) Mean Corpuscular Hemoglobin Concent 31.7 G/DL (32.0-36.0) Red Cell Distribution Width 20.5 % (11.6-14.8) Platelet Count 109 K/UL (150-450) Mean Platelet Volume 6.9 FL (6.5-10.1) Neutrophils (%) (Auto) 79.6 % (45.0-75.0) Lymphocytes (%) (Auto) 8.7 % (20.0-45.0) Monocytes (%) (Auto) 9.5 % (1.0-10.0) Eosinophils (%) (Auto) 1.1 % (0.0-3.0) Basophils (%) (Auto) 1.1 % (0.0-2.0) Sodium Level 141 MMOL/L (136-145) Potassium Level 3.7 MMOL/L (3.5-5.1) Chloride Level 109 MMOL/L (98-107) Carbon Dioxide Level 21 MMOL/L (21-32) Anion Gap 11 mmol/L (5-15) Blood Urea Nitrogen 27 mg/dL (7-18) Creatinine 1.5 MG/DL (0.55-1.30) Estimat Glomerular Filtration Rate 55.9 mL/min (>60) Glucose Level 105 MG/DL (74-106) Calcium Level 7.4 MG/DL (8.5-10.1) Test 01/23/20 05:35 POC Whole Blood Glucose 108 MG/DL (74-106) Height (Feet): 6 Height (Inches): 0.00 Weight (Pounds): 150 Objective PE: Vitals: reviewed General Appearance: NAD HEENT: normocephalic, atraumatic Neck: non-tender, normal alignment Respiratory/Chest: nromal breath sounds bilaterally Cardiovascular/Chest: normal peripheral pulses, normal rate Abdomen: normal bowel sounds, soft, nontender Extremities: normal range of motion Samuel Son MD Jan 23, 2020 06:59
--- NOTE | 2020-01-23 08:15 | Infectious Diseases Prog Note ---
Assessment/Plan 69yo M with: Shock- likely combination septic and metabolic derangements- SP Probable UTI -01/10 u/a wbc 60-80, nit neg, leuk +3; ucx Neg -Bcx NTD Probable PNA -01/12 CXR: No significant change in bilateral patchy pulmondary opacities, concerning for pneumonia versus edemaq. Small bilateral pleural effusions. -01/10 CXR: Bilateral interstitial and airspace infiltrates versus edema persists. sp cx MRSA (S Vancomycin, bactrim, tetracycline) COVID19 neg -01/04 rapid COVID PCR neg x1 influenza PCR neg CXR: Mild interstitial vascular prominence. No focal infiltrate or consolidation. 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 Etiology not demonstrated. Empty bladder with a Mathew catheter. 3 hypoechoic lesions within the pancreatic head and body, each measuring about 5 mm. Appearance nonspecific. Bilateral pleural effusions. Echogenic liver, consistent with hepatocellular disease. Surface likely nodularity raises concern for cirrhosis. Gallbladder sludge. Negative for dilated bile ducts. Probable nonobstructive left intrarenal calculi. Multiple hepatic cysts Acute on chronic encephalopathy -CT head: 1. Markedly limited, near nondiagnostic evaluation due to motion artifact. Grossly, age-related changes and small vessel disease of aging are noted. Again grossly, no acute intracranial pathology is detected. If there is a high degree of concern or if there is concern for subtle abnormalities, magnetic resonance imaging of the brain with diffusion-weighted sequences should be performed, due to the markedly limited nature of the current study. Close clinical correlation is necessary. HTN COPD DM2 paraplegia Dementia non verbal ID resident ([facility]) Plan: Cont to monitor off abx -01/18 SP vanco IV #7 -01/16 SP Cefepime #4 -01/13 SP ZOsyn #4 -01/06 SP Ceftriaxone #2 -01/04 Sp IV Vancomycin x1, Cefepime x1 -f/u cx -Monitor CBC/CMP, temperatures -Renal, cards f/u -aspiration precautions D/w RN Thank you for consulting [facility]. Will continue to follow along with you. Subjective Allergies: Coded Allergies: No Known Allergies (Unverified , 03/18/19) AF WBC 5.0 NAD on vent, 30% PEEP 5 Objective Last 24 Hour Vital Signs Date Time Temp Pulse Resp B/P (MAP) Pulse Ox O2 Delivery O2 Flow Rate FiO2 01/23/20 08:05 30 01/23/20 06:30 78 18 01/23/20 04:44 79 19 40 01/23/20 04:00 98.5 77 16 108/65 (79) 100 01/23/20 04:00 Mechanical Ventilator 01/23/20 04:00 40 01/23/20 03:01 82 01/23/20 03:00 82 16 102/57 (72) 100 01/23/20 02:22 81 22 40 01/23/20 02:00 80 16 104/58 (73) 100 01/23/20 01:00 82 17 95/58 (70) 100 01/23/20 00:40 78 24 40 01/23/20 00:00 98.0 78 16 96/57 (70) 100 01/23/20 00:00 Mechanical Ventilator 01/23/20 00:00 40 01/22/20 23:05 74 01/22/20 23:00 76 17 105/61 (76) 100 01/22/20 22:42 75 16 40 01/22/20 22:00 76 17 104/59 (74) 100 01/22/20 21:08 77 19 40 01/22/20 21:00 80 17 91/53 (66) 100 01/22/20 20:00 Mechanical Ventilator 01/22/20 20:00 97.9 76 16 91/54 (66) 100 01/22/20 20:00 40 01/22/20 19:21 74 22 40 01/22/20 19:16 75 01/22/20 19:00 75 15 92/58 (69) 100 01/22/20 17:20 72 19 40 01/22/20 16:00 Mechanical Ventilator 01/22/20 16:00 99.0 81 18 92/52 (65) 100 01/22/20 16:00 83 01/22/20 16:00 40 01/22/20 15:22 76 18 40 01/22/20 15:00 78 17 108/63 (78) 100 01/22/20 14:00 76 14 90/52 (65) 100 01/22/20 13:45 77 14 97/60 (72) 100 01/22/20 13:30 76 15 96/58 (71) 100 01/22/20 13:27 74 15 40 01/22/20 13:15 73 15 88/52 (64) 100 01/22/20 13:00 76 14 97/57 (70) 100 01/22/20 12:45 77 12 93/56 (68) 100 01/22/20 12:30 74 100/59 (73) 100 01/22/20 12:15 74 97/59 (72) 100 01/22/20 12:00 40 01/22/20 12:00 78 01/22/20 12:00 98.8 75 93/55 (68) 100 01/22/20 12:00 Mechanical Ventilator 01/22/20 11:45 77 90/54 (66) 100 01/22/20 11:30 76 92/54 (67) 100 01/22/20 11:15 73 95/56 (69) 100 01/22/20 11:14 75 17 40 01/22/20 11:00 77 134/76 (95) 100 01/22/20 10:45 76 100/59 (73) 100 01/22/20 10:30 76 90/54 (66) 100 01/22/20 10:15 75 96/55 (69) 100 01/22/20 10:00 74 99/56 (70) 100 01/22/20 09:45 77 95/58 (70) 100 01/22/20 09:30 77 94/56 (69) 100 01/22/20 09:18 78 16 40 01/22/20 09:15 78 99/58 (72) 100 01/22/20 09:00 99 01/22/20 09:00 77 95/55 (68) 100 01/22/20 08:45 78 97/58 (71) 100 01/22/20 08:30 77 86/54 (65) 100 Height (Feet): 6 Height (Inches): 0.00 Weight (Pounds): 150 Gen: NAD in bed HEENT: NCAT CV: RRR Pulm: BL chest rise on vent Abd: Soft, Non-distended Ext: No c/c/e Neuro: Awake Laboratory Tests Test 01/22/20 09:28 01/22/20 14:37 01/22/20 18:27 01/22/20 23:08 Arterial Blood pH 7.544 (7.350-7.450) Arterial Blood Partial Pressure CO2 24.6 mmHg (35.0-45.0) *L Arterial Blood Partial Pressure O2 121.2 mmHg (75.0-100.0) H Arterial Blood HCO3 20.8 mmol/L (22.0-26.0) L Arterial Blood Oxygen Saturation 98.1 % (95-100) Arterial Blood Base Excess -0.8 (-2-2) Asael Test Positive POC Whole Blood Glucose 79 MG/DL (74-106) 90 MG/DL (74-106) Pending Test 01/23/20 04:00 01/23/20 05:35 01/23/20 07:51 White Blood Count 5.0 K/UL (4.8-10.8) Red Blood Count 3.21 M/UL (4.70-6.10) L Hemoglobin 9.3 G/DL (14.2-18.0) L Hematocrit 29.2 % (42.0-52.0) L Mean Corpuscular Volume 91 FL (80-99) Mean Corpuscular Hemoglobin 28.9 PG (27.0-31.0) Mean Corpuscular Hemoglobin Concent 31.7 G/DL (32.0-36.0) L Red Cell Distribution Width 20.5 % (11.6-14.8) H Platelet Count 109 K/UL (150-450) L Mean Platelet Volume 6.9 FL (6.5-10.1) Neutrophils (%) (Auto) 79.6 % (45.0-75.0) H Lymphocytes (%) (Auto) 8.7 % (20.0-45.0) L Monocytes (%) (Auto) 9.5 % (1.0-10.0) Eosinophils (%) (Auto) 1.1 % (0.0-3.0) Basophils (%) (Auto) 1.1 % (0.0-2.0) Sodium Level 141 MMOL/L (136-145) Potassium Level 3.7 MMOL/L (3.5-5.1) Chloride Level 109 MMOL/L (98-107) H Carbon Dioxide Level 21 MMOL/L (21-32) Anion Gap 11 mmol/L (5-15) Blood Urea Nitrogen 27 mg/dL (7-18) H Creatinine 1.5 MG/DL (0.55-1.30) H Estimat Glomerular Filtration Rate 55.9 mL/min (>60) Glucose Level 105 MG/DL (74-106) Calcium Level 7.4 MG/DL (8.5-10.1) L POC Whole Blood Glucose 108 MG/DL (74-106) H Arterial Blood pH 7.480 (7.350-7.450) Arterial Blood Partial Pressure CO2 25.5 mmHg (35.0-45.0) L Arterial Blood Partial Pressure O2 146.0 mmHg (75.0-100.0) H Arterial Blood HCO3 18.6 mmol/L (22.0-26.0) L Arterial Blood Oxygen Saturation 98.3 % (95-100) Arterial Blood Base Excess -3.9 (-2-2) L Asael Test Positive Current Medications Medications (Trade) Dose Ordered Sig/Jesse Route PRN Reason Start Time Stop Time Status Last Admin Dose Admin Acetaminophen (Tylenol) 650 mg Q4H PRN ORAL PRNH/TEMP 01/05/20 20:15 02/04/20 20:14 01/12/20 03:10 Acetazolamide (Diamox) 250 mg FOUR TIMES A DAY ORAL 01/22/20 13:00 02/21/20 12:59 01/22/20 20:06 Bisacodyl (Dulcolax) 10 mg DAILY PRN RECTAL Constipation 01/05/20 20:15 04/04/20 20:14 Chlorhexidine Gluconate (Navya-Hex 2%) 1 applic DAILY@1999 TOPIC 01/11/20 20:00 04/10/20 19:59 01/22/20 20:05 Dextrose (Dextrose 50%) 25 ml Q30M PRN IV Hypoglycemia 01/05/20 20:15 04/04/20 20:14 Dextrose (Dextrose 50%) 50 ml Q30M PRN IV Hypoglycemia 01/05/20 20:15 04/04/20 20:14 Linaclotide (Linzess) 290 mcg BEFORE BREAKFAST ORAL 01/10/20 06:30 04/09/20 06:29 01/23/20 05:34 Metoclopramide HCl (Reglan) 10 mg EVERY 6 HOURS NG 01/19/20 12:00 02/18/20 11:59 01/23/20 05:33 Metoclopramide HCl (Reglan) 10 mg Q6H PRN IVP Nausea & Vomiting 01/16/20 13:00 02/15/20 12:59 Midodrine (Pro-Amatine) 10 mg Q8HR NG 01/20/20 22:00 04/13/20 17:59 01/23/20 05:33 Ondansetron HCl (Zofran) 4 mg Q6H PRN IVP Nausea & Vomiting 01/10/20 06:30 02/09/20 06:29 Pantoprazole (Protonix) 40 mg EVERY 12 HOURS IVP 01/20/20 21:00 02/19/20 20:59 01/22/20 20:06 Polyethylene Glycol (Miralax) 17 gm BEDTIME NG 01/11/20 21:00 02/08/20 20:59 01/20/20 20:22 Sennosides (Senokot) 8.6 mg QHS NG 01/11/20 21:00 02/04/20 20:59 01/22/20 20:06 Vitamin D (Vitamin D) 3,000 intlu DAILY GT 01/19/20 12:00 02/18/20 11:59 01/22/20 10:44 Nayana Ochoa M.D. Jan 23, 2020 08:15
[2020-01-23] MEDS: Vitamin D 1000 IU Tab GT SCH (09:38)
[2020-01-23] MEDS: Pantoprazole Inj IVP SCH ×2 (09:38→20:51)
--- NOTE | 2020-01-23 10:08 | General Progress Note ---
Subjective ROS Limited/Unobtainable: No Allergies: Coded Allergies: No Known Allergies (Unverified , 03/18/19) Objective Last 24 Hour Vital Signs Date Time Temp Pulse Resp B/P (MAP) Pulse Ox O2 Delivery O2 Flow Rate FiO2 01/23/20 09:11 93 14 40 01/23/20 08:05 30 01/23/20 08:04 30 01/23/20 08:00 79 01/23/20 07:35 71 16 40 01/23/20 06:30 78 18 01/23/20 04:44 79 19 40 01/23/20 04:00 98.5 77 16 108/65 (79) 100 01/23/20 04:00 Mechanical Ventilator 01/23/20 04:00 40 01/23/20 03:01 82 01/23/20 03:00 82 16 102/57 (72) 100 01/23/20 02:22 81 22 40 01/23/20 02:00 80 16 104/58 (73) 100 01/23/20 01:00 82 17 95/58 (70) 100 01/23/20 00:40 78 24 40 01/23/20 00:00 98.0 78 16 96/57 (70) 100 01/23/20 00:00 Mechanical Ventilator 01/23/20 00:00 40 01/22/20 23:05 74 01/22/20 23:00 76 17 105/61 (76) 100 01/22/20 22:42 75 16 40 01/22/20 22:00 76 17 104/59 (74) 100 01/22/20 21:08 77 19 40 01/22/20 21:00 80 17 91/53 (66) 100 01/22/20 20:00 Mechanical Ventilator 01/22/20 20:00 97.9 76 16 91/54 (66) 100 01/22/20 20:00 40 01/22/20 19:21 74 22 40 01/22/20 19:16 75 01/22/20 19:00 75 15 92/58 (69) 100 01/22/20 17:20 72 19 40 01/22/20 16:00 Mechanical Ventilator 01/22/20 16:00 99.0 81 18 92/52 (65) 100 01/22/20 16:00 83 01/22/20 16:00 40 01/22/20 15:22 76 18 40 01/22/20 15:00 78 17 108/63 (78) 100 01/22/20 14:00 76 14 90/52 (65) 100 01/22/20 13:45 77 14 97/60 (72) 100 01/22/20 13:30 76 15 96/58 (71) 100 01/22/20 13:27 74 15 40 01/22/20 13:15 73 15 88/52 (64) 100 01/22/20 13:00 76 14 97/57 (70) 100 01/22/20 12:45 77 12 93/56 (68) 100 01/22/20 12:30 74 100/59 (73) 100 01/22/20 12:15 74 97/59 (72) 100 01/22/20 12:00 40 01/22/20 12:00 78 01/22/20 12:00 98.8 75 93/55 (68) 100 01/22/20 12:00 Mechanical Ventilator 01/22/20 11:45 77 90/54 (66) 100 01/22/20 11:30 76 92/54 (67) 100 01/22/20 11:15 73 95/56 (69) 100 01/22/20 11:14 75 17 40 01/22/20 11:00 77 134/76 (95) 100 01/22/20 10:45 76 100/59 (73) 100 01/22/20 10:30 76 90/54 (66) 100 01/22/20 10:15 75 96/55 (69) 100 Intake and Output 01/22/20 01/23/20 19:00 07:00 Intake Total 400 ml 685 ml Output Total 150 ml 1000 ml Balance 250 ml -315 ml IV Total 220 ml Tube Feeding 180 ml 685 ml Output Urine Total 90 ml 800 ml Stool Total 60 ml 200 ml Laboratory Tests 01/22/20 14:37: POC Whole Blood Glucose 79 01/22/20 18:27: POC Whole Blood Glucose 90 01/22/20 23:08: POC Whole Blood Glucose [Pending] 01/23/20 04:00: White Blood Count 5.0, Red Blood Count 3.21L, Hemoglobin 9.3L, Hematocrit 29.2L, Mean Corpuscular Volume 91, Mean Corpuscular Hemoglobin 28.9, Mean Corpuscular Hemoglobin Concent 31.7L, Red Cell Distribution Width 20.5H, Platelet Count 109L , Mean Platelet Volume 6.9, Neutrophils (%) (Auto) 79.6H, Lymphocytes (%) (Auto) 8.7L, Monocytes (%) (Auto) 9.5, Eosinophils (%) (Auto) 1.1, Basophils (%) (Auto) 1.1, Sodium Level 141, Potassium Level 3.7, Chloride Level 109H, Carbon Dioxide Level 21, Anion Gap 11, Blood Urea Nitrogen 27H, Creatinine 1.5H, Estimat Glomerular Filtration Rate 55.9, Glucose Level 105, Calcium Level 7.4L 01/23/20 05:35: POC Whole Blood Glucose 108H 01/23/20 07:51: Arterial Blood pH 7.480H, Arterial Blood Partial Pressure CO2 25.5L, Arterial Blood Partial Pressure O2 146.0H, Arterial Blood HCO3 18.6L, Arterial Blood Oxygen Saturation 98.3, Arterial Blood Base Excess -3.9L, Asael Test Positive Height (Feet): 6 Height (Inches): 0.00 Weight (Pounds): 150 General Appearance: lethargic EENT: normal ENT inspection Neck: supple Cardiovascular: tachycardia Respiratory/Chest: decreased breath sounds Abdomen: hypoactive bowel sounds Extremities: non-tender Assessment/Plan Status: unchanged Assessment/Plan: AMS dementia Anemia DM hyper CA elevated AST low albumin COPD RI HTN metastatic prostate CA NPO NGTF post blood transfusion poor prognosis PEG plans for tomorrow with 2 MD consent Paulino Bueno MD Jan 23, 2020 10:08
[2020-01-23] MEDS ORDERED: Tubing IV Secondary IV ONE (10:16)
--- NOTE | 2020-01-23 11:09 | General Progress Note ---
Subjective Constitutional: Reports: weakness Allergies: Coded Allergies: No Known Allergies (Unverified , 03/18/19) All Systems: reviewed and negative except above Subjective intubated ng in icu Objective Last 24 Hour Vital Signs Date Time Temp Pulse Resp B/P (MAP) Pulse Ox O2 Delivery O2 Flow Rate FiO2 01/23/20 10:00 88 18 97/61 (73) 100 01/23/20 09:11 30 01/23/20 09:11 93 14 40 01/23/20 09:00 68 16 106/54 (71) 100 01/23/20 08:05 30 01/23/20 08:04 30 01/23/20 08:00 Mechanical Ventilator 01/23/20 08:00 79 01/23/20 08:00 99.7 75 16 92/54 (67) 100 01/23/20 07:35 71 16 40 01/23/20 06:30 78 18 01/23/20 04:44 79 19 40 01/23/20 04:00 98.5 77 16 108/65 (79) 100 01/23/20 04:00 Mechanical Ventilator 01/23/20 04:00 40 01/23/20 03:01 82 01/23/20 03:00 82 16 102/57 (72) 100 01/23/20 02:22 81 22 40 01/23/20 02:00 80 16 104/58 (73) 100 01/23/20 01:00 82 17 95/58 (70) 100 01/23/20 00:40 78 24 40 01/23/20 00:00 98.0 78 16 96/57 (70) 100 01/23/20 00:00 Mechanical Ventilator 01/23/20 00:00 40 01/22/20 23:05 74 01/22/20 23:00 76 17 105/61 (76) 100 01/22/20 22:42 75 16 40 01/22/20 22:00 76 17 104/59 (74) 100 01/22/20 21:08 77 19 40 01/22/20 21:00 80 17 91/53 (66) 100 01/22/20 20:00 Mechanical Ventilator 01/22/20 20:00 97.9 76 16 91/54 (66) 100 01/22/20 20:00 40 01/22/20 19:21 74 22 40 01/22/20 19:16 75 01/22/20 19:00 75 15 92/58 (69) 100 01/22/20 17:20 72 19 40 01/22/20 16:00 Mechanical Ventilator 01/22/20 16:00 99.0 81 18 92/52 (65) 100 01/22/20 16:00 83 01/22/20 16:00 40 01/22/20 15:22 76 18 40 01/22/20 15:00 78 17 108/63 (78) 100 01/22/20 14:00 76 14 90/52 (65) 100 01/22/20 13:45 77 14 97/60 (72) 100 01/22/20 13:30 76 15 96/58 (71) 100 01/22/20 13:27 74 15 40 01/22/20 13:15 73 15 88/52 (64) 100 01/22/20 13:00 76 14 97/57 (70) 100 01/22/20 12:45 77 12 93/56 (68) 100 01/22/20 12:30 74 100/59 (73) 100 01/22/20 12:15 74 97/59 (72) 100 01/22/20 12:00 40 01/22/20 12:00 78 01/22/20 12:00 98.8 75 93/55 (68) 100 01/22/20 12:00 Mechanical Ventilator 01/22/20 11:45 77 90/54 (66) 100 01/22/20 11:30 76 92/54 (67) 100 01/22/20 11:15 73 95/56 (69) 100 01/22/20 11:14 75 17 40 Intake and Output 01/22/20 01/23/20 19:00 07:00 Intake Total 400 ml 685 ml Output Total 150 ml 1000 ml Balance 250 ml -315 ml IV Total 220 ml Tube Feeding 180 ml 685 ml Output Urine Total 90 ml 800 ml Stool Total 60 ml 200 ml Laboratory Tests 01/22/20 14:37: POC Whole Blood Glucose 79 01/22/20 18:27: POC Whole Blood Glucose 90 01/22/20 23:08: POC Whole Blood Glucose [Pending] 01/23/20 04:00: White Blood Count 5.0, Red Blood Count 3.21L, Hemoglobin 9.3L, Hematocrit 29.2L, Mean Corpuscular Volume 91, Mean Corpuscular Hemoglobin 28.9, Mean Corpuscular Hemoglobin Concent 31.7L, Red Cell Distribution Width 20.5H, Platelet Count 109L , Mean Platelet Volume 6.9, Neutrophils (%) (Auto) 79.6H, Lymphocytes (%) (Auto) 8.7L, Monocytes (%) (Auto) 9.5, Eosinophils (%) (Auto) 1.1, Basophils (%) (Auto) 1.1, Sodium Level 141, Potassium Level 3.7, Chloride Level 109H, Carbon Dioxide Level 21, Anion Gap 11, Blood Urea Nitrogen 27H, Creatinine 1.5H, Estimat Glomerular Filtration Rate 55.9, Glucose Level 105, Calcium Level 7.4L 01/23/20 05:35: POC Whole Blood Glucose 108H 01/23/20 07:51: Arterial Blood pH 7.480H, Arterial Blood Partial Pressure CO2 25.5L, Arterial Blood Partial Pressure O2 146.0H, Arterial Blood HCO3 18.6L, Arterial Blood Oxygen Saturation 98.3, Arterial Blood Base Excess -3.9L, Asael Test Positive 01/23/20 10:46: Arterial Blood pH 7.435, Arterial Blood Partial Pressure CO2 28.5L, Arterial Blood Partial Pressure O2 102.3H, Arterial Blood HCO3 18.7L, Arterial Blood Oxygen Saturation 97.3, Arterial Blood Base Excess -4.6L, Asael Test Positive Height (Feet): 6 Height (Inches): 0.00 Weight (Pounds): 150 General Appearance: lethargic EENT: normal ENT inspection Neck: normal alignment Cardiovascular: normal peripheral pulses, normal rate, regular rhythm Respiratory/Chest: chest wall non-tender, lungs clear, normal breath sounds Abdomen: normal bowel sounds, non tender, soft Extremities: normal inspection Edema: no edema noted Arm (L), no edema noted Arm (R), no edema noted Leg (L), no edema noted Leg (R), no edema noted Pedal (L), no edema noted Pedal (R), no edema noted Generalized Neurologic: motor weakness Skin: normal pigmentation, warm/dry Assessment/Plan Problem List: (1) Anemia ICD Codes: D64.9 - Anemia, unspecified SNOMED: 846380758 (2) Paraplegia ICD Codes: G82.20 - Paraplegia, unspecified SNOMED: 39101296 (3) Diabetes ICD Codes: E11.9 - Type 2 diabetes mellitus without complications SNOMED: 34778372 (4) Weak ICD Codes: R53.1 - Weakness SNOMED: 39483463 (5) HTN (hypertension) ICD Codes: I10 - Essential (primary) hypertension SNOMED: 08945528 (6) ARF (acute renal failure) ICD Codes: N17.9 - Acute kidney failure, unspecified SNOMED: 75737898 (7) Altered level of consciousness ICD Codes: R40.4 - Transient alteration of awareness SNOMED: 5323719 (8) Dehydration ICD Codes: E86.0 - Dehydration SNOMED: 75424606 (9) Hypernatremia ICD Codes: E87.0 - Hyperosmolality and hypernatremia SNOMED: 022433660 Status: unchanged Assessment/Plan: vent abx ivf wean vent cbc bmp am Farrukh Ríos DO Jan 23, 2020 11:08
--- NOTE | 2020-01-23 11:12 | Pulmonology Progress Note ---
Subjective ROS Limited/Unobtainable: No Interval Events: remains intubated in ICU Constitutional: Reports: no symptoms HEENT: Repors: no symptoms Respiratory: Reports: no symptoms Cardiovascular: Reports: no symptoms Gastrointestinal/Abdominal: Reports: no symptoms Genitourinary: Reports: no symptoms Allergies: Coded Allergies: No Known Allergies (Unverified , 03/18/19) All Systems: reviewed and negative except above Objective Last 24 Hour Vital Signs Date Time Temp Pulse Resp B/P (MAP) Pulse Ox O2 Delivery O2 Flow Rate FiO2 01/23/20 10:00 88 18 97/61 (73) 100 01/23/20 09:11 30 01/23/20 09:11 93 14 40 01/23/20 09:00 68 16 106/54 (71) 100 01/23/20 08:05 30 01/23/20 08:04 30 01/23/20 08:00 Mechanical Ventilator 01/23/20 08:00 79 01/23/20 08:00 99.7 75 16 92/54 (67) 100 01/23/20 07:35 71 16 40 01/23/20 06:30 78 18 01/23/20 04:44 79 19 40 01/23/20 04:00 98.5 77 16 108/65 (79) 100 01/23/20 04:00 Mechanical Ventilator 01/23/20 04:00 40 01/23/20 03:01 82 01/23/20 03:00 82 16 102/57 (72) 100 01/23/20 02:22 81 22 40 01/23/20 02:00 80 16 104/58 (73) 100 01/23/20 01:00 82 17 95/58 (70) 100 01/23/20 00:40 78 24 40 01/23/20 00:00 98.0 78 16 96/57 (70) 100 01/23/20 00:00 Mechanical Ventilator 01/23/20 00:00 40 01/22/20 23:05 74 01/22/20 23:00 76 17 105/61 (76) 100 01/22/20 22:42 75 16 40 01/22/20 22:00 76 17 104/59 (74) 100 01/22/20 21:08 77 19 40 01/22/20 21:00 80 17 91/53 (66) 100 01/22/20 20:00 Mechanical Ventilator 01/22/20 20:00 97.9 76 16 91/54 (66) 100 01/22/20 20:00 40 01/22/20 19:21 74 22 40 01/22/20 19:16 75 01/22/20 19:00 75 15 92/58 (69) 100 01/22/20 17:20 72 19 40 01/22/20 16:00 Mechanical Ventilator 01/22/20 16:00 99.0 81 18 92/52 (65) 100 01/22/20 16:00 83 01/22/20 16:00 40 01/22/20 15:22 76 18 40 01/22/20 15:00 78 17 108/63 (78) 100 01/22/20 14:00 76 14 90/52 (65) 100 01/22/20 13:45 77 14 97/60 (72) 100 01/22/20 13:30 76 15 96/58 (71) 100 01/22/20 13:27 74 15 40 01/22/20 13:15 73 15 88/52 (64) 100 01/22/20 13:00 76 14 97/57 (70) 100 01/22/20 12:45 77 12 93/56 (68) 100 01/22/20 12:30 74 100/59 (73) 100 01/22/20 12:15 74 97/59 (72) 100 01/22/20 12:00 40 01/22/20 12:00 78 01/22/20 12:00 98.8 75 93/55 (68) 100 01/22/20 12:00 Mechanical Ventilator 01/22/20 11:45 77 90/54 (66) 100 01/22/20 11:30 76 92/54 (67) 100 01/22/20 11:15 73 95/56 (69) 100 01/22/20 11:14 75 17 40 Intake and Output 01/22/20 01/23/20 18:59 06:59 Intake Total 360 ml 670 ml Output Total 80 ml 1040 ml Balance 280 ml -370 ml IV Total 225 ml Tube Feeding 135 ml 670 ml Output Urine Total 840 ml Stool Total 80 ml 200 ml General Appearance: no acute distress HEENT: normocephalic Respiratory: chest wall non-tender, lungs clear Cardiovascular: normal peripheral pulses, normal rate Abdomen: normal bowel sounds Laboratory Tests 01/22/20 14:37: POC Whole Blood Glucose 79 01/22/20 18:27: POC Whole Blood Glucose 90 01/22/20 23:08: POC Whole Blood Glucose [Pending] 01/23/20 04:00: White Blood Count 5.0, Red Blood Count 3.21L, Hemoglobin 9.3L, Hematocrit 29.2L, Mean Corpuscular Volume 91, Mean Corpuscular Hemoglobin 28.9, Mean Corpuscular Hemoglobin Concent 31.7L, Red Cell Distribution Width 20.5H, Platelet Count 109L , Mean Platelet Volume 6.9, Neutrophils (%) (Auto) 79.6H, Lymphocytes (%) (Auto) 8.7L, Monocytes (%) (Auto) 9.5, Eosinophils (%) (Auto) 1.1, Basophils (%) (Auto) 1.1, Sodium Level 141, Potassium Level 3.7, Chloride Level 109H, Carbon Dioxide Level 21, Anion Gap 11, Blood Urea Nitrogen 27H, Creatinine 1.5H, Estimat Glomerular Filtration Rate 55.9, Glucose Level 105, Calcium Level 7.4L 01/23/20 05:35: POC Whole Blood Glucose 108H 01/23/20 07:51: Arterial Blood pH 7.480H, Arterial Blood Partial Pressure CO2 25.5L, Arterial Blood Partial Pressure O2 146.0H, Arterial Blood HCO3 18.6L, Arterial Blood Oxygen Saturation 98.3, Arterial Blood Base Excess -3.9L, Asael Test Positive 01/23/20 10:46: Arterial Blood pH 7.435, Arterial Blood Partial Pressure CO2 28.5L, Arterial Blood Partial Pressure O2 102.3H, Arterial Blood HCO3 18.7L, Arterial Blood O xygen Saturation 97.3, Arterial Blood Base Excess -4.6L, Asael Test Positive Current Medications Medications (Trade) Dose Ordered Sig/Jesse Route PRN Reason Start Time Stop Time Status Last Admin Dose Admin Acetaminophen (Tylenol) 650 mg Q4H PRN ORAL PRNH/TEMP 01/05/20 20:15 02/04/20 20:14 01/12/20 03:10 Acetazolamide (Diamox) 250 mg FOUR TIMES A DAY ORAL 01/22/20 13:00 02/21/20 12:59 01/23/20 09:38 Bisacodyl (Dulcolax) 10 mg DAILY PRN RECTAL Constipation 01/05/20 20:15 04/04/20 20:14 Chlorhexidine Gluconate (Navya-Hex 2%) 1 applic DAILY@1999 TOPIC 01/11/20 20:00 04/10/20 19:59 01/22/20 20:05 Dextrose (Dextrose 50%) 25 ml Q30M PRN IV Hypoglycemia 01/05/20 20:15 04/04/20 20:14 Dextrose (Dextrose 50%) 50 ml Q30M PRN IV Hypoglycemia 01/05/20 20:15 04/04/20 20:14 Linaclotide (Linzess) 290 mcg BEFORE BREAKFAST ORAL 01/10/20 06:30 04/09/20 06:29 01/23/20 05:34 Metoclopramide HCl (Reglan) 10 mg EVERY 6 HOURS NG 01/19/20 12:00 02/18/20 11:59 01/23/20 05:33 Metoclopramide HCl (Reglan) 10 mg Q6H PRN IVP Nausea & Vomiting 01/16/20 13:00 02/15/20 12:59 Midodrine (Pro-Amatine) 10 mg Q8HR NG 01/20/20 22:00 04/13/20 17:59 01/23/20 05:33 Ondansetron HCl (Zofran) 4 mg Q6H PRN IVP Nausea & Vomiting 01/10/20 06:30 02/09/20 06:29 Pantoprazole (Protonix) 40 mg EVERY 12 HOURS IVP 01/20/20 21:00 02/19/20 20:59 01/23/20 09:38 Polyethylene Glycol (Miralax) 17 gm BEDTIME NG 01/11/20 21:00 02/08/20 20:59 01/20/20 20:22 Sennosides (Senokot) 8.6 mg QHS NG 01/11/20 21:00 02/04/20 20:59 01/22/20 20:06 Vitamin D (Vitamin D) 3,000 intlu DAILY GT 01/19/20 12:00 02/18/20 11:59 01/23/20 09:38 Assessment/Plan Assessment/Plan IMPRESSION: 1. Severe metabolic acidosis. Corrected; now has combined respiratory and metabolic alkalosis 2. Respiratory failure; reintubated 3. Diarrhea. 4. Acute renal failure. Nephrology following; 5. Anemia; DISCUSSION: ABG reviewed. Will adjust vent. Will continue ABG 7. Will extubate Off Lasix drip. Continue pressors prn. Will dc Diamox EGD and PEG in AM CXR much improved after diuresis Daxa Infante Omar Syed MD Jan 23, 2020 11:12
--- NOTE | 2020-01-23 12:59 | Nephrology Progress Note ---
Assessment/Plan Problem List: (1) ARF (acute renal failure) (2) Hypernatremia (3) Hypovolemic shock (4) Altered level of consciousness (5) Hypercalcemia (6) Hyperuricemia (7) Pelvic mass Assessment: Prostate cancer Assessment Acute renal failure Possible underlying chronic kidney failure Severe dehydration Hypernatremia indicative of severe water deficit Severe hyperuricemia, partly due to dehydration and renal failure Acute metabolic and toxic encephalopathy Mild, malnutrition Anemia Lactic acid, possible sepsis Hypercalcemia Plan January 22: Patient off pressors. Patient extubated. Labs reviewed. Renal parameters are stable. January 21: Patient on low-dose pressors. Remains hypotensive. Renal parameters stable. Weaning trial in process. Mental status remains poor. January 20: Patient in ICU. Intubated. Full code. Has advanced prostate cancer. On IV Lasix drip. Low magnesium and low phosphorus and low potassium noted and addressed. Continue per consultants. January 19: Patient in ICU. Intubated. Was coded yesterday. Labs reviewed. Medication list reviewed and adjusted. Continue per consultants. Patient full code. Prognosis poor. PSA over 2700 January 18: Labs reviewed. IV fluid discontinued. IV calcium dose decreased. Midodrine dose decreased. Reglan and Protonix changed to GT route. Vitamin D initiated. Continue to monitor renal parameters and calcium level. January 17: Labs reviewed. Abnormal electrolyte addressed. Continue per consultants. January 16: Patient now in telemetry. Labs pending. Continue to monitor renal parameters. Continue per consultants. January 15: Still in ICU. Doing well post extubation. Renal parameters improving. Not requiring any more dialysis treatment after the first dialysis treatment. Medications reviewed. Continue per consultants. January 14: Remains in ICU. Tolerating extubation. Labs reviewed. Abnormal electrolytes addressed. Serum creatinine lowering. Continue per current management. Stop Phos binders. Increase calcium IV. January 13: In ICU. Now extubated. Only dialyzed once. Urine output maintained. Serum creatinine down to 2.5. Patient has NG tube. Continue to monitor renal parameters. Continue per consultants. Abnormal electrolytes addressed. January 12: Remains in ICU. Intubated. Transfused yesterday. Abnormal electrolytes addressed. Dialyzed once January 10. Serum creatinine stable. Will adjust IV fluid. Monitor renal parameters. Dialysis as needed. Calcium gluconate IV ordered. Ionized calcium level ordered with tomorrow's labs. January 11: Patient in ICU. Intubated. On Levophed. Hemoglobin low. Due for transfusion. Electrolyte abnormalities noted and addressed. Patient was dialyzed yesterday. Will check lab tomorrow. Dialysis as needed. Discussed with SELIN Srivastava. January 10: Patient is doing poorly. Blood pressure low. ABG abnormal with metabolic acidosis. IV sodium bicarb given. Serum creatinine reno. Patient has acute renal failure. Nontunneled dialysis catheter replacement ordered.. Patient need life saving dialysis treatment SRINIVAS. January 09: Labs reviewed. IV D5 and a half with sodium bicarb initiated. Serum creatinine higher. Continue to monitor renal parameters. NG feeding was changed to Nepro. Patient remains full code. Poor prognosis. January 08: Labs reviewed. IV D5W discontinued. 500 cc 3% saline ordered. NG tube for feeding and for medications. Allopurinol dose increased. Continue to monitor renal parameters serum calcium and phosphorus. January 07: Labs reviewed. Serum calcium remains elevated. Uric acid still elevated. Will give pamidronate 60 mg IV piggyback once for hypercalcemia. Continue to monitor renal parameters. Continue D5W 150 cc an hour. Start Bicitra 30 cc p.o. every 6 hours. Add allopurinol D5W IV hydration Albumin bolus N.p.o. until able to take p.o. Antibiotics Monitor renal parameters monitor calcium, monitor uric acid Subjective ROS Limited/Unobtainable: Yes Objective Objective Last 24 Hour Vital Signs Date Time Temp Pulse Resp B/P (MAP) Pulse Ox O2 Delivery O2 Flow Rate FiO2 01/23/20 12:00 82 17 116/72 (87) 100 01/23/20 11:20 80 01/23/20 11:15 2.0 01/23/20 11:15 Nasal Cannula 2.0 01/23/20 11:15 100 01/23/20 11:15 Nasal Cannula 2.0 28 01/23/20 11:00 81 17 102/62 (75) 100 01/23/20 10:00 88 18 97/61 (73) 100 01/23/20 09:11 30 01/23/20 09:11 93 14 40 01/23/20 09:00 68 16 106/54 (71) 100 01/23/20 08:05 30 01/23/20 08:04 30 01/23/20 08:00 Mechanical Ventilator 01/23/20 08:00 79 01/23/20 08:00 99.7 75 16 92/54 (67) 100 01/23/20 07:35 71 16 40 01/23/20 06:30 78 18 01/23/20 04:44 79 19 40 01/23/20 04:00 98.5 77 16 108/65 (79) 100 01/23/20 04:00 Mechanical Ventilator 01/23/20 04:00 40 01/23/20 03:01 82 01/23/20 03:00 82 16 102/57 (72) 100 01/23/20 02:22 81 22 40 01/23/20 02:00 80 16 104/58 (73) 100 01/23/20 01:00 82 17 95/58 (70) 100 01/23/20 00:40 78 24 40 01/23/20 00:00 98.0 78 16 96/57 (70) 100 01/23/20 00:00 Mechanical Ventilator 01/23/20 00:00 40 01/22/20 23:05 74 01/22/20 23:00 76 17 105/61 (76) 100 01/22/20 22:42 75 16 40 01/22/20 22:00 76 17 104/59 (74) 100 01/22/20 21:08 77 19 40 01/22/20 21:00 80 17 91/53 (66) 100 01/22/20 20:00 Mechanical Ventilator 01/22/20 20:00 97.9 76 16 91/54 (66) 100 01/22/20 20:00 40 01/22/20 19:21 74 22 40 01/22/20 19:16 75 01/22/20 19:00 75 15 92/58 (69) 100 01/22/20 17:20 72 19 40 01/22/20 16:00 Mechanical Ventilator 01/22/20 16:00 99.0 81 18 92/52 (65) 100 01/22/20 16:00 83 01/22/20 16:00 40 01/22/20 15:22 76 18 40 01/22/20 15:00 78 17 108/63 (78) 100 01/22/20 14:00 76 14 90/52 (65) 100 01/22/20 13:45 77 14 97/60 (72) 100 01/22/20 13:30 76 15 96/58 (71) 100 01/22/20 13:27 74 15 40 01/22/20 13:15 73 15 88/52 (64) 100 01/22/20 13:00 76 14 97/57 (70) 100 Intake and Output 01/22/20 01/23/20 19:00 07:00 Intake Total 400 ml 685 ml Output Total 150 ml 1000 ml Balance 250 ml -315 ml IV Total 220 ml Tube Feeding 180 ml 685 ml Output Urine Total 90 ml 800 ml Stool Total 60 ml 200 ml Laboratory Tests 01/22/20 14:37: POC Whole Blood Glucose 79 01/22/20 18:27: POC Whole Blood Glucose 90 01/22/20 23:08: POC Whole Blood Glucose [Pending] 01/23/20 04:00: White Blood Count 5.0, Red Blood Count 3.21L, Hemoglobin 9.3L, Hematocrit 29.2L, Mean Corpuscular Volume 91, Mean Corpuscular Hemoglobin 28.9, Mean Corpuscular Hemoglobin Concent 31.7L, Red Cell Distribution Width 20.5H, Platelet Count 109L , Mean Platelet Volume 6.9, Neutrophils (%) (Auto) 79.6H, Lymphocytes (%) (Auto) 8.7L, Monocytes (%) (Auto) 9.5, Eosinophils (%) (Auto) 1.1, Basophils (%) (Auto) 1.1, Sodium Level 141, Potassium Level 3.7, Chloride Level 109H, Carbon Dioxide Level 21, Anion Gap 11, Blood Urea Nitrogen 27H, Creatinine 1.5H, Estimat Glomerular Filtration Rate 55.9, Glucose Level 105, Calcium Level 7.4L 01/23/20 05:35: POC Whole Blood Glucose 108H 01/23/20 07:51: Arterial Blood pH 7.480H, Arterial Blood Partial Pressure CO2 25.5L, Arterial Blood Partial Pressure O2 146.0H, Arterial Blood HCO3 18.6L, Arterial Blood Oxygen Saturation 98.3, Arterial Blood Base Excess -3.9L, Asael Test Positive 01/23/20 10:46: Arterial Blood pH 7.435, Arterial Blood Partial Pressure CO2 28.5L, Arterial Blood Partial Pressure O2 102.3H, Arterial Blood HCO3 18.7L, Arterial Blood Oxygen Saturation 97.3, Arterial Blood Base Excess -4.6L, Asael Test Positive Height (Feet): 6 Height (Inches): 0.00 Weight (Pounds): 150 General Appearance: no apparent distress, lethargic EENT: other - Now extubated Cardiovascular: normal rate Respiratory/Chest: decreased breath sounds Abdomen: distended Dhiraj Biswas MD Jan 23, 2020 12:59
--- NOTE | 2020-01-23 13:07 | Cardiac Electrophysiology PN ---
Assessment/Plan Assessment/Plan 1. Altered mental status due to severe dehydration in view of sodium of 160 and acute renal failure. On IV fluids and IV antibiotics. Ruled out for HI. 2. S/P Septic shock off Levophed and on iv Abx On Midodrine 10 tid 3. History of CVA, off Plavix in view of hematuria. 4. Respiratory failure, Extubated today 5. Diabetes. 6. Acute renal failure. Cr 4.2. Had HD once only on 01/11/20. No more HD needed and Cr 1.2 7. Hematuria 8. Anemia with Hb 5.8 and coffee ground emesis. FU Dr Bueno 9. Shock liver with increase AST>2000 10. Pancreatic mass x3. CT abdomen and pelvis showed Large pelvic mass involving the prostate, bladder presumably representing prostatic malignancy 11. Dysphagia, NGT feeding. PEG tomorrow DW RN Subjective Subjective Coded 01/19 for respiratory failure followed by bradycardia and PEA. Extubated today at 11 am. Scheduled for EGD/PEG tomorrow Objective Last 24 Hour Vital Signs Date Time Temp Pulse Resp B/P (MAP) Pulse Ox O2 Delivery O2 Flow Rate FiO2 01/23/20 12:00 82 17 116/72 (87) 100 01/23/20 11:20 80 01/23/20 11:15 2.0 01/23/20 11:15 Nasal Cannula 2.0 01/23/20 11:15 100 01/23/20 11:15 Nasal Cannula 2.0 28 01/23/20 11:00 81 17 102/62 (75) 100 01/23/20 10:00 88 18 97/61 (73) 100 01/23/20 09:11 30 01/23/20 09:11 93 14 40 01/23/20 09:00 68 16 106/54 (71) 100 01/23/20 08:05 30 01/23/20 08:04 30 01/23/20 08:00 Mechanical Ventilator 01/23/20 08:00 79 01/23/20 08:00 99.7 75 16 92/54 (67) 100 01/23/20 07:35 71 16 40 01/23/20 06:30 78 18 01/23/20 04:44 79 19 40 01/23/20 04:00 98.5 77 16 108/65 (79) 100 01/23/20 04:00 Mechanical Ventilator 01/23/20 04:00 40 01/23/20 03:01 82 01/23/20 03:00 82 16 102/57 (72) 100 01/23/20 02:22 81 22 40 01/23/20 02:00 80 16 104/58 (73) 100 01/23/20 01:00 82 17 95/58 (70) 100 01/23/20 00:40 78 24 40 01/23/20 00:00 98.0 78 16 96/57 (70) 100 01/23/20 00:00 Mechanical Ventilator 01/23/20 00:00 40 01/22/20 23:05 74 01/22/20 23:00 76 17 105/61 (76) 100 01/22/20 22:42 75 16 40 01/22/20 22:00 76 17 104/59 (74) 100 01/22/20 21:08 77 19 40 01/22/20 21:00 80 17 91/53 (66) 100 01/22/20 20:00 Mechanical Ventilator 01/22/20 20:00 97.9 76 16 91/54 (66) 100 01/22/20 20:00 40 01/22/20 19:21 74 22 40 01/22/20 19:16 75 01/22/20 19:00 75 15 92/58 (69) 100 01/22/20 17:20 72 19 40 01/22/20 16:00 Mechanical Ventilator 01/22/20 16:00 99.0 81 18 92/52 (65) 100 01/22/20 16:00 83 01/22/20 16:00 40 01/22/20 15:22 76 18 40 01/22/20 15:00 78 17 108/63 (78) 100 01/22/20 14:00 76 14 90/52 (65) 100 01/22/20 13:45 77 14 97/60 (72) 100 01/22/20 13:30 76 15 96/58 (71) 100 01/22/20 13:27 74 15 40 01/22/20 13:15 73 15 88/52 (64) 100 Intake and Output 01/22/20 01/23/20 19:00 07:00 Intake Total 400 ml 685 ml Output Total 150 ml 1000 ml Balance 250 ml -315 ml IV Total 220 ml Tube Feeding 180 ml 685 ml Output Urine Total 90 ml 800 ml Stool Total 60 ml 200 ml Laboratory Tests Test 01/22/20 14:37 01/22/20 18:27 01/22/20 23:08 01/23/20 04:00 POC Whole Blood Glucose 79 MG/DL (74-106) 90 MG/DL (74-106) Pending White Blood Count 5.0 K/UL (4.8-10.8) Red Blood Count 3.21 M/UL (4.70-6.10) L Hemoglobin 9.3 G/DL (14.2-18.0) L Hematocrit 29.2 % (42.0-52.0) L Mean Corpuscular Volume 91 FL (80-99) Mean Corpuscular Hemoglobin 28.9 PG (27.0-31.0) Mean Corpuscular Hemoglobin Concent 31.7 G/DL (32.0-36.0) L Red Cell Distribution Width 20.5 % (11.6-14.8) H Platelet Count 109 K/UL (150-450) L Mean Platelet Volume 6.9 FL (6.5-10.1) Neutrophils (%) (Auto) 79.6 % (45.0-75.0) H Lymphocytes (%) (Auto) 8.7 % (20.0-45.0) L Monocytes (%) (Auto) 9.5 % (1.0-10.0) Eosinophils (%) (Auto) 1.1 % (0.0-3.0) Basophils (%) (Auto) 1.1 % (0.0-2.0) Sodium Level 141 MMOL/L (136-145) Potassium Level 3.7 MMOL/L (3.5-5.1) Chloride Level 109 MMOL/L (98-107) H Carbon Dioxide Level 21 MMOL/L (21-32) Anion Gap 11 mmol/L (5-15) Blood Urea Nitrogen 27 mg/dL (7-18) H Creatinine 1.5 MG/DL (0.55-1.30) H Estimat Glomerular Filtration Rate 55.9 mL/min (>60) Glucose Level 105 MG/DL (74-106) Calcium Level 7.4 MG/DL (8.5-10.1) L Test 01/23/20 05:35 01/23/20 07:51 01/23/20 10:46 POC Whole Blood Glucose 108 MG/DL (74-106) H Arterial Blood pH 7.480 (7.350-7.450) 7.435 (7.350-7.450) Arterial Blood Partial Pressure CO2 25.5 mmHg (35.0-45.0) L 28.5 mmHg (35.0-45.0) L Arterial Blood Partial Pressure O2 146.0 mmHg (75.0-100.0) H 102.3 mmHg (75.0-100.0) H Arterial Blood HCO3 18.6 mmol/L (22.0-26.0) L 18.7 mmol/L (22.0-26.0) L Arterial Blood Oxygen Saturation 98.3 % (95-100) 97.3 % (95-100) Arterial Blood Base Excess -3.9 (-2-2) L -4.6 (-2-2) L Asael Test Positive Positive Objective HEAD AND NECK: NGT in place LUNGS: Coarse rhonchi. CARDIOVASCULAR: Regular S1 and S2 with no gallop. ABDOMEN: Soft. EXTREMITIES: No pitting edema.Right groin Mega in place Kevin Lopez MD Jan 23, 2020 13:07
--- NOTE | 2020-01-23 13:49 | Surgery Progress Note ---
Surgery Progress Note Subjective Procedure Performed Right femoral temporary hemodialysis catheter insertion Additional Comments ill appearing on support no n/v labs reviewed Objective Last 24 Hour Vital Signs Date Time Temp Pulse Resp B/P (MAP) Pulse Ox O2 Delivery O2 Flow Rate FiO2 01/23/20 12:00 98.5 82 17 116/72 (87) 100 01/23/20 11:20 80 01/23/20 11:15 2.0 01/23/20 11:15 Nasal Cannula 2.0 01/23/20 11:15 100 01/23/20 11:15 Nasal Cannula 2.0 28 01/23/20 11:00 81 17 102/62 (75) 100 01/23/20 10:00 88 18 97/61 (73) 100 01/23/20 09:11 30 01/23/20 09:11 93 14 40 01/23/20 09:00 68 16 106/54 (71) 100 01/23/20 08:05 30 01/23/20 08:04 30 01/23/20 08:00 Mechanical Ventilator 01/23/20 08:00 79 01/23/20 08:00 99.7 75 16 92/54 (67) 100 01/23/20 07:35 71 16 40 01/23/20 06:30 78 18 01/23/20 04:44 79 19 40 01/23/20 04:00 98.5 77 16 108/65 (79) 100 01/23/20 04:00 Mechanical Ventilator 01/23/20 04:00 40 01/23/20 03:01 82 01/23/20 03:00 82 16 102/57 (72) 100 01/23/20 02:22 81 22 40 01/23/20 02:00 80 16 104/58 (73) 100 01/23/20 01:00 82 17 95/58 (70) 100 01/23/20 00:40 78 24 40 01/23/20 00:00 98.0 78 16 96/57 (70) 100 01/23/20 00:00 Mechanical Ventilator 01/23/20 00:00 40 01/22/20 23:05 74 01/22/20 23:00 76 17 105/61 (76) 100 01/22/20 22:42 75 16 40 01/22/20 22:00 76 17 104/59 (74) 100 01/22/20 21:08 77 19 40 01/22/20 21:00 80 17 91/53 (66) 100 01/22/20 20:00 Mechanical Ventilator 01/22/20 20:00 97.9 76 16 91/54 (66) 100 01/22/20 20:00 40 01/22/20 19:21 74 22 40 01/22/20 19:16 75 01/22/20 19:00 75 15 92/58 (69) 100 01/22/20 17:20 72 19 40 01/22/20 16:00 Mechanical Ventilator 01/22/20 16:00 99.0 81 18 92/52 (65) 100 01/22/20 16:00 83 01/22/20 16:00 40 01/22/20 15:22 76 18 40 01/22/20 15:00 78 17 108/63 (78) 100 01/22/20 14:00 76 14 90/52 (65) 100 I&O Intake and Output 01/22/20 01/23/20 19:00 07:00 Intake Total 400 ml 685 ml Output Total 150 ml 1000 ml Balance 250 ml -315 ml IV Total 220 ml Tube Feeding 180 ml 685 ml Output Urine Total 90 ml 800 ml Stool Total 60 ml 200 ml Dressing: saturated Cardiovascular: RSR Respiratory: decreased breath sounds Abdomen: soft, non-tender, present bowel sounds Extremities: no tenderness, no cyanosis Laboratory Tests Test 01/22/20 14:37 01/22/20 18:27 01/22/20 23:08 01/23/20 04:00 POC Whole Blood Glucose 79 MG/DL (74-106) 90 MG/DL (74-106) Pending White Blood Count 5.0 K/UL (4.8-10.8) Red Blood Count 3.21 M/UL (4.70-6.10) L Hemoglobin 9.3 G/DL (14.2-18.0) L Hematocrit 29.2 % (42.0-52.0) L Mean Corpuscular Volume 91 FL (80-99) Mean Corpuscular Hemoglobin 28.9 PG (27.0-31.0) Mean Corpuscular Hemoglobin Concent 31.7 G/DL (32.0-36.0) L Red Cell Distribution Width 20.5 % (11.6-14.8) H Platelet Count 109 K/UL (150-450) L Mean Platelet Volume 6.9 FL (6.5-10.1) Neutrophils (%) (Auto) 79.6 % (45.0-75.0) H Lymphocytes (%) (Auto) 8.7 % (20.0-45.0) L Monocytes (%) (Auto) 9.5 % (1.0-10.0) Eosinophils (%) (Auto) 1.1 % (0.0-3.0) Basophils (%) (Auto) 1.1 % (0.0-2.0) Sodium Level 141 MMOL/L (136-145) Potassium Level 3.7 MMOL/L (3.5-5.1) Chloride Level 109 MMOL/L (98-107) H Carbon Dioxide Level 21 MMOL/L (21-32) Anion Gap 11 mmol/L (5-15) Blood Urea Nitrogen 27 mg/dL (7-18) H Creatinine 1.5 MG/DL (0.55-1.30) H Estimat Glomerular Filtration Rate 55.9 mL/min (>60) Glucose Level 105 MG/DL (74-106) Calcium Level 7.4 MG/DL (8.5-10.1) L Test 01/23/20 05:35 01/23/20 07:51 01/23/20 10:46 POC Whole Blood Glucose 108 MG/DL (74-106) H Arterial Blood pH 7.480 (7.350-7.450) 7.435 (7.350-7.450) Arterial Blood Partial Pressure CO2 25.5 mmHg (35.0-45.0) L 28.5 mmHg (35.0-45.0) L Arterial Blood Partial Pressure O2 146.0 mmHg (75.0-100.0) H 102.3 mmHg (75.0-100.0) H Arterial Blood HCO3 18.6 mmol/L (22.0-26.0) L 18.7 mmol/L (22.0-26.0) L Arterial Blood Oxygen Saturation 98.3 % (95-100) 97.3 % (95-100) Arterial Blood Base Excess -3.9 (-2-2) L -4.6 (-2-2) L Asael Test Positive Positive Plan Problems: (1) Altered level of consciousness (2) Hypovolemic shock Assessment & Plan: resuscitation extubated monitor respiratory keep hob elevated supplemental O2 Gallbladder demonstrates sludge. No stones, wall thickening, nor pericholecystic fluid. Patient unable to report Wilson's sign Common bile duct measures 3 mm in diameter. No intrahepatic biliary ductal dilatation. Liver demonstrates coarsened echogenicity and surface nodularity. It demonstrates multiple cysts. Portal vein and hepatic veins are patent. The pancreas demonstrates 3 hypoechoic lesions in the head and body, measuring approximately 5 mm in diameter each. Spleen is unremarkable, poorly visualized. Left kidney measures 11.4 cm in length. Right kidney measures 11.3 cm length. Both kidneys demonstrate normal echogenicity. There is severe right and moderate left hydronephrosis. Echogenic foci are seen in the left renal sinus and collecting system. Bladder is empty, contains a Mathew catheter. Non-aneurysmal abdominal aorta . There are bilateral pleural effusions Impression: Bilateral right greater than left hydronephrosis, increased since prior study of 03/20/2019. Etiology not demonstrated Empty bladder with a Mathew catheter 3 hypoechoic lesions within the pancreatic head and body, each measuring about 5 mm. Appearance nonspecific. Recommend further evaluation with pancreas protocol MRI Bilateral pleural effusions Echogenic liver, consistent with hepatocellular disease. Surface likely nodularity raises concern for cirrhosis Gallbladder sludge. Negative for dilated bile ducts Probable nonobstructive left intrarenal calculi Multiple hepatic cysts (3) Lactic acid acidosis (4) Hypernatremia (5) Paraplegia (6) Anemia Assessment & Plan: no active bleeding noted no large hematoma dressings okay likely related to heme will monitor transfuse prbc with HD trend labs thank you (7) Diabetes (8) Weak (9) HTN (hypertension) (10) ARF (acute renal failure) (11) Hypercalcemia (12) Hyperuricemia (13) Dehydration (14) UTI (urinary tract infection) (15) Failure to thrive in adult Assessment & Plan: patient identified to have DTI on bilateral heels right with 5cm x 4cm area of dti not open no drainage no signs of infection left with 3cm x 2cm. pillow under leg optifoam dressings nutritional optimization will follow no acute surgery DAILY ESTIMATED NEEDS: Needs based on underweight, suspected wt loss, HD, CRITICAL CARE/ 57.6kg 25-33 kcals/kg 5754-8642 total kcals 1.2-2 g protein/kg 69-115 g total protein 25-30 mL/kg 3875-0164 total fluid mLs NUTRITION DIAGNOSIS: *Increased kcal and pro needs r/t underweight status, suspected significant wt loss as evidenced by pt @ 71% IBW w/ BMI 17.2, underweight per guidelines, w/ suspected signficant wt loss of 30lbs/19% in 10 months. * Swallowing difficulty R/T dysphagia, respiratory status as evidenced by s/p NGT insertion (01/08), now NPO, s/p code blue (01/10), orally intubated. CURRENT TF:NPO ENTERAL NUTRITION RECOMMENDATIONS: WHEN HEMODYNAMICALLY STABLE: Nepro @ 40ml/hr x 24 hrs to provide 960ml, 1728kcal, 77g prot, 698ml free water WHEN HEMODYNAMICALLY STABLE AND MEDICALLY APPROPRIATE TO FEED: -> initiate TF @ 5ml/hr x 6hrs, advance slowly 5ml q 4-6 hrs as tolerated to goal rate -> HOB over 30 degrees/ water flush per MD WITHOUT HEMODYNAMIC STABILITY -> If medically appropriate to feed, rec trophic feeding of Nepro @ 5ml/hr x 24 hrs to maintain gut integrity (16) Pelvic mass Assessment & Plan: invasive pelvic mass likely prostate necrotic nodes likely spread recommend colonoscopy given invasion possible to rectum oncology input thank you There is a large pelvic mass which is cephalad to but inseparable from the prostate. This also is inseparable from the posterior wall of the bladder and there appears to be circumferential bladder wall thickening. This mass also appears to involve the seminal vesicles. This measures approximately 8.8 cm transverse by 10 cm craniocaudad by 7.4 cm AP. The periphery of this mass is very lobulated. The mass may also invade the adjacent rectum. There is bilateral iliac chain lymphadenopathy, with nodes measuring up to 3 cm in diameter. Some of these nodes are very low in attenuation indicating that they are necrotic. There is also retroperitoneal lymphadenopathy. There is severe right and moderate left hydronephrosis and bilateral hydroureter. The dilated ureters terminate at the level of the mass. No intrinsic renal parenchymal abnormality. The pancreas is unremarkable. No findings corresponding to the areas of low-attenuation described on prior sonogram are evident. No pancreatic ductal dilatation is evident. The liver demonstrates multiple cysts. The gallbladder, bile ducts, spleen, adrenals are unremarkable. The bones demonstrate diffuse involvement with multiple mixed osteolytic/osteosclerotic lesions, mostly sclerotic component predominating. There is a right groin dialysis catheter in place, tip at the level of the iliac venous confluence. There is a nasogastric tube,, tip in the stomach. There is a Mathew catheter. There is a rectal tube lying outside the patient with the balloon inflated within the inner gluteal fold. There are bilateral pleural effusions. There is compressive atelectasis of most if not all of both lower lobes. 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 Compressive atelectasis of most of not all of both lower lobes Other findings as noted, including multiple liver cysts Lázaro Jenkins Jan 23, 2020 13:49
--- NOTE | 2020-01-23 14:56 | Diagnostic Imaging Report ---
Indication: Shortness of breath, respiratory failure Technique: XRAY Chest 1v Comparison: 01/21/2020 Findings: Endotracheal tube just below level of clavicles, approximately 5.6 cm above the héctor. NG tube courses below level of the diaphragms, tip beyond the inferior margin of the study. Heart size and mediastinal contour is grossly stable. No significant interval change in layering bilateral pleural effusions and bilateral infiltrates. No pneumothorax. Osseous structures are stable. IMPRESSION: No significant interval change in layering bilateral pleural effusions and bibasilar infiltrates. Endotracheal and enteric tubes remain in place.
[2020-01-23] MEDS: Dyna-Hex 2% Top Sol 2oz TOPIC SCH (20:52)
[2020-01-23] MEDS: Sennosides 8.6mg tab NG SCH (20:52)
[2020-01-23] MEDS: Miralax 17gm pkt NG SCH (20:52)
[2020-01-24] VITALS (24 sets, daily range): BP systolic 94–137; BP diastolic 59–75
[2020-01-24 04:14] LABS: BASOPHILS % (AUTO) 0.8 % (0.0-2.0); EOSINOPHILS % (AUTO) 1.4 % (0.0-3.0); HEMATOCRIT 31.9 % (42.0-52.0); HEMOGLOBIN 9.9 G/DL (14.2-18.0); LYMPHOCYTES % (AUTO) 13.8 % (20.0-45.0); MEAN CORPUSCULAR VOLUME 92 FL (80-99); NEUTROPHILS % (AUTO) 74.1 % (45.0-75.0); PLATELET COUNT 122 K/UL (150-450); RED BLOOD COUNT 3.46 M/UL (4.70-6.10); RED CELL DISTRIBUTION WIDTH 21.4 % (11.6-14.8); WHITE BLOOD COUNT 4.6 K/UL (4.8-10.8)
[2020-01-24 04:36] LABS: ANION GAP 11 mmol/L (5-15); BLOOD UREA NITROGEN 25 mg/dL (7-18); CALCIUM 7.8 MG/DL (8.5-10.1); CARBON DIOXIDE 20 MMOL/L (21-32); CHLORIDE 112 MMOL/L (98-107); CREATININE 1.3 MG/DL (0.55-1.30); POTASSIUM 3.9 MMOL/L (3.5-5.1); SODIUM 143 MMOL/L (136-145)
[2020-01-24] MEDS: Midodrine 10mg tab NG SCH ×3 (05:43→21:07)
[2020-01-24] MEDS: Metoclopramide 10mg/10ml Liq NG SCH ×4 (05:43→23:53)
--- NOTE | 2020-01-24 06:57 | Hematology/Onc Progress Note ---
Assessment/Plan Assessment/Plan Assessment/Recs # Metastatic prostate cancer -- w psa 2741, has a Large pelvic mass as described involving the prostate, bladder, seminal vesicles, presumably representing prostatic malignancy --> CT Evidence of disseminated malignancy, with extensive lymphadenopathy of and evidenc of diffuse osseous metastases Severe right and moderate left hydronephrosis and bilateral hydroureter, due to ureteral obstruction by the above mass --> tumor markers ordered, psa 2741 --> after above reviewed, consider further biopsy of prostate with uro as needed # Pancytopenia with initially Anemia due to underlying chronic medical issues, multifactorial v Gi bleed --> Anemia workup has been ordered, rule out gi bleed --> No evidence of hemolysis is noted, peripheral smear has been reviewed. --> Hgb goal >7. Transfuse prn. --> Epogen or iron at this time is not particularly indicated --> Medications have been reviewed --> low threshold for gi evaluation in case has occult + --> hgb 10-->9.7-->9.2->10-->8.6-->7.7-->5-->8.3->9.3->7.8-->8.2-->8.1-->9.3-->9.9 --> 11/8 flow cytometry ordered bc of nucleated cells on smear --> plt 150-->98-->82-->51->49-->46-->50-->68-->88-->109 --> hep and hiv panel--NEG --> us abd-->shows 3 small lesions, requires further eval --> CT a/p reviewed # Multiple lesions noted in pancreas --> MRI abd ordered--> nondiagnostic --> CT of the abd reviewed # Protein caloric malnutrition --> daily calorie counts --> daily weights --> mirtazapine started # Acute renal failure --> continue on ivfs --> as per renal # Hypokalemia --> replete with K # Severe dehydration --> ivfs ongoing # Hypernatremia indicative of severe water deficit # Severe hyperuricemia, partly due to dehydration and renal failure # Acute metabolic and toxic encephalopathy # Mild, malnutrition # Psych issues per psych # Lactic acid, possible sepsis # Dvt ppx heparin sq->Scds The timing of this note does not necessarily reflect the time of the patient was seen. Greatly appreciate consultation. Subjective Constitutional: Denies: no symptoms, chills, fever, malaise, weakness, other HEENT: Denies: no symptoms, eye pain, blurred vision, tearing, double vision, ear pain, ear discharge, nose pain, nose congestion, throat pain, throat swelling, mouth pain, mouth swelling, other Cardiovascular: Denies: no symptoms, chest pain, edema, irregular heart rate, lightheadedness, palpitations, syncope, other Respiratory: Denies: no symptoms, cough, shortness of breath, SOB with ex certion, SOB at rest, sputum, wheezing, other Genitourinary: Denies: no symptoms, burning, discharge, frequency, flank pain, hematuria, incontinence, pain, urgency, other Neurologic/Psychiatric: Denies: no symptoms, anxiety, depressed, emotional problems, headache, numbness, paresthesia, pre-existing deficit, seizure, tingling, tremors, weakness, other Endocrine: Denies: no symptoms, excessive sweating, flushing, intolerance to cold, intolerance to heat, increased hunger, increased thirst, increased urine, unexplained weight gain, unexplained weight loss, other Hematologic/Lymphatic: Denies: no symptoms, anemia, easy bleeding, easy bruising, adenopathy, other Allergies: Coded Allergies: No Known Allergies (Unverified , 03/18/19) Subjective 01/07 meds noted, no bleeding, hgb 10, no hemolysis, hgb 10.1 01/08 labs reviewed, vi rn, no major events, no bleeding, hgb lower 01/09 labs noted, no bleeding, vi rn, no major changes, plt lower 01/10 did have epistaxis overnight, no bleeding, night sweats, epistaxis better 01/12 icu, remains on vent, levo, no bleeding, meds noted 01/13 remains in icu, no bleeding, on levo, no major changes 01/14 icu, is on 1l, restarints are off, no bleeding, no night sweats 01/15 icu, meds noted, with diarrhea, rectal tube reinserted, on nc 01/16 out of icu, no bleeding, meds reviewed, cbc ad bmp pending 01/17 unable to lay still for the mri, thus ct ordered, vi rn 01/19 hgb 6.9, no bleeding, no hemolysis, ct reviewed 01/20 obtunded, meds reviewed, hgb is better, in icu 01/21 obtunded, npo, labs hjave been reviewed, hgb 9.2 01/22 obtunded, in icu, no bleeding, plt 109 01/23 obtunded still icu, on venturimask, meds reviewed, labs noted Objective Objective Current Medications Medications (Trade) Dose Ordered Sig/Jesse Route PRN Reason Start Time Stop Time Status Last Admin Dose Admin Acetaminophen (Tylenol) 650 mg Q4H PRN ORAL PRNH/TEMP 01/05/20 20:15 02/04/20 20:14 01/12/20 03:10 Bisacodyl (Dulcolax) 10 mg DAILY PRN RECTAL Constipation 01/05/20 20:15 04/04/20 20:14 Chlorhexidine Gluconate (Navya-Hex 2%) 1 applic DAILY@2000 TOPIC 01/11/20 20:00 04/10/20 19:59 01/23/20 20:52 Dextrose (Dextrose 50%) 25 ml Q30M PRN IV Hypoglycemia 01/05/20 20:15 04/04/20 20:14 Dextrose (Dextrose 50%) 50 ml Q30M PRN IV Hypoglycemia 01/05/20 20:15 04/04/20 20:14 Linaclotide (Linzess) 290 mcg BEFORE BREAKFAST ORAL 01/10/20 06:30 04/09/20 06:29 01/23/20 05:34 Metoclopramide HCl (Reglan) 10 mg EVERY 6 HOURS NG 01/19/20 12:00 02/18/20 11:59 01/24/20 05:43 Metoclopramide HCl (Reglan) 10 mg Q6H PRN IVP Nausea & Vomiting 01/16/20 13:00 02/15/20 12:59 Midodrine (Pro-Amatine) 10 mg Q8HR NG 01/20/20 22:00 04/13/20 17:59 01/23/20 05:33 Ondansetron HCl (Zofran) 4 mg Q6H PRN IVP Nausea & Vomiting 01/10/20 06:30 02/09/20 06:29 Pantoprazole (Protonix) 40 mg EVERY 12 HOURS IVP 01/20/20 21:00 02/19/20 20:59 01/23/20 20:51 Polyethylene Glycol (Miralax) 17 gm BEDTIME NG 01/11/20 21:00 02/08/20 20:59 01/20/20 20:22 Sennosides (Senokot) 8.6 mg QHS NG 01/11/20 21:00 02/04/20 20:59 01/22/20 20:06 Vitamin D (Vitamin D) 3,000 intlu DAILY GT 01/19/20 12:00 02/18/20 11:59 01/23/20 09:38 Last 24 Hour Vital Signs Date Time Temp Pulse Resp B/P (MAP) Pulse Ox O2 Delivery O2 Flow Rate FiO2 01/24/20 06:00 92 17 116/64 (81) 100 01/24/20 05:00 81 16 94/75 (81) 100 01/24/20 04:00 Nasal Cannula 2.0 01/24/20 04:00 89 17 116/71 (86) 100 01/24/20 04:00 2.0 01/24/20 04:00 98.2 89 17 116/71 (86) 100 01/24/20 03:14 86 01/24/20 03:00 89 21 129/67 (87) 99 01/24/20 02:00 90 20 120/70 (87) 99 01/24/20 01:00 89 19 125/66 (85) 99 01/24/20 00:00 98.4 89 18 137/75 (95) 100 01/24/20 00:00 2.0 01/24/20 00:00 Nasal Cannula 2.0 01/23/20 23:28 93 01/23/20 23:00 89 16 116/64 (81) 100 01/23/20 22:00 82 15 111/61 (78) 01/23/20 21:00 86 15 124/75 (91) 100 01/23/20 20:00 2.0 01/23/20 20:00 Nasal Cannula 2.0 01/23/20 20:00 98.9 102 19 136/75 (95) 99 01/23/20 19:58 109 01/23/20 19:01 100 Nasal Cannula 2.0 28 01/23/20 19:00 86 15 127/75 (92) 100 01/23/20 18:00 81 16 124/70 (88) 100 01/23/20 17:00 87 20 118/64 (82) 95 01/23/20 16:00 2.0 01/23/20 16:00 Nasal Cannula 2.0 01/23/20 16:00 97.7 82 18 126/65 (85) 98 01/23/20 16:00 78 01/23/20 15:00 77 17 116/73 (87) 100 01/23/20 14:00 77 17 129/67 (87) 100 01/23/20 13:00 81 17 115/63 (80) 98 01/23/20 12:00 98.5 82 17 116/72 (87) 100 01/23/20 11:20 80 01/23/20 11:15 2.0 01/23/20 11:15 Nasal Cannula 2.0 01/23/20 11:15 100 01/23/20 11:15 Nasal Cannula 2.0 28 01/23/20 11:15 100 Nasal Cannula 2.0 28 01/23/20 11:00 81 17 102/62 (75) 100 01/23/20 10:00 88 18 97/61 (73) 100 01/23/20 09:11 30 01/23/20 09:11 93 14 40 01/23/20 09:00 68 16 106/54 (71) 100 01/23/20 08:05 30 01/23/20 08:04 30 01/23/20 08:00 Mechanical Ventilator 01/23/20 08:00 79 01/23/20 08:00 99.7 75 16 92/54 (67) 100 01/23/20 07:35 71 16 40 01/23/20 06:30 78 18 01/23/20 04:44 79 19 40 01/23/20 04:00 98.5 77 16 108/65 (79) 100 01/23/20 04:00 Mechanical Ventilator 01/23/20 04:00 40 01/23/20 03:01 82 01/23/20 03:00 82 16 102/57 (72) 100 01/23/20 02:22 81 22 40 01/23/20 02:00 80 16 104/58 (73) 100 01/23/20 01:00 82 17 95/58 (70) 100 01/23/20 00:40 78 24 40 01/23/20 00:00 98.0 78 16 96/57 (70) 100 01/23/20 00:00 Mechanical Ventilator 01/23/20 00:00 40 01/22/20 23:05 74 01/22/20 23:00 76 17 105/61 (76) 100 01/22/20 22:42 75 16 40 01/22/20 22:00 76 17 104/59 (74) 100 01/22/20 21:08 77 19 40 01/22/20 21:00 80 17 91/53 (66) 100 01/22/20 20:00 Mechanical Ventilator 01/22/20 20:00 97.9 76 16 91/54 (66) 100 01/22/20 20:00 40 01/22/20 19:21 74 22 40 01/22/20 19:16 75 01/22/20 19:00 75 15 92/58 (69) 100 01/22/20 17:20 72 19 40 01/22/20 16:00 Mechanical Ventilator 01/22/20 16:00 99.0 81 18 92/52 (65) 100 01/22/20 16:00 83 01/22/20 16:00 40 01/22/20 15:22 76 18 40 01/22/20 15:00 78 17 108/63 (78) 100 01/22/20 14:00 76 14 90/52 (65) 100 01/22/20 13:45 77 14 97/60 (72) 100 01/22/20 13:30 76 15 96/58 (71) 100 01/22/20 13:27 74 15 40 01/22/20 13:15 73 15 88/52 (64) 100 01/22/20 13:00 76 14 97/57 (70) 100 01/22/20 12:45 77 12 93/56 (68) 100 01/22/20 12:30 74 100/59 (73) 100 01/22/20 12:15 74 97/59 (72) 100 01/22/20 12:00 40 01/22/20 12:00 78 01/22/20 12:00 98.8 75 93/55 (68) 100 01/22/20 12:00 Mechanical Ventilator 01/22/20 11:45 77 90/54 (66) 100 01/22/20 11:30 76 92/54 (67) 100 01/22/20 11:15 73 95/56 (69) 100 01/22/20 11:14 75 17 40 01/22/20 11:00 77 134/76 (95) 100 01/22/20 10:45 76 100/59 (73) 100 01/22/20 10:30 76 90/54 (66) 100 01/22/20 10:15 75 96/55 (69) 100 01/22/20 10:00 74 99/56 (70) 100 01/22/20 09:45 77 95/58 (70) 100 01/22/20 09:30 77 94/56 (69) 100 01/22/20 09:18 78 16 40 01/22/20 09:15 78 99/58 (72) 100 01/22/20 09:00 99 01/22/20 09:00 77 95/55 (68) 100 01/22/20 08:45 78 97/58 (71) 100 01/22/20 08:30 77 86/54 (65) 100 01/22/20 08:15 78 90/55 (67) 100 01/22/20 08:00 Mechanical Ventilator 01/22/20 08:00 79 96/58 (71) 100 01/22/20 08:00 40 01/22/20 08:00 80 01/22/20 07:45 79 93/55 (68) 100 01/22/20 07:30 82 17 119/71 (87) 100 01/22/20 07:15 80 17 105/61 (76) 100 01/22/20 07:15 78 15 40 40 01/22/20 07:00 98.3 81 17 109/66 (80) 100 Intake and Output 01/23/20 01/24/20 19:00 07:00 Intake Total 450 ml 590 ml Output Total 1160 ml 1015 ml Balance -710 ml -425 ml Free Water 90 ml Tube Feeding 450 ml 500 ml Output Urine Total 835 ml 1015 ml Stool Total 325 ml Labs Test 01/21/20 07:49 01/21/20 13:00 01/21/20 17:26 01/22/20 01:03 Arterial Blood pH 7.475 (7.350-7.450) Arterial Blood Partial Pressure CO2 23.5 mmHg (35.0-45.0) Arterial Blood Partial Pressure O2 132.8 mmHg (75.0-100.0) Arterial Blood HCO3 16.9 mmol/L (22.0-26.0) Arterial Blood Oxygen Saturation 98.3 % (95-100) Arterial Blood Base Excess -5.4 (-2-2) Asael Test Positive POC Whole Blood Glucose 126 MG/DL (74-106) 107 MG/DL (74-106) Test 01/22/20 04:58 01/22/20 05:10 01/22/20 09:28 01/22/20 14:37 POC Whole Blood Glucose 91 MG/DL (74-106) 79 MG/DL (74-106) White Blood Count 6.5 K/UL (4.8-10.8) Red Blood Count 3.22 M/UL (4.70-6.10) Hemoglobin 9.2 G/DL (14.2-18.0) Hematocrit 28.7 % (42.0-52.0) Mean Corpuscular Volume 89 FL (80-99) Mean Corpuscular Hemoglobin 28.6 PG (27.0-31.0) Mean Corpuscular Hemoglobin Concent 32.0 G/DL (32.0-36.0) Red Cell Distribution Width 19.8 % (11.6-14.8) Platelet Count 95 K/UL (150-450) Mean Platelet Volume 7.4 FL (6.5-10.1) Neutrophils (%) (Auto) % (45.0-75.0) Lymphocytes (%) (Auto) % (20.0-45.0) Monocytes (%) (Auto) % (1.0-10.0) Eosinophils (%) (Auto) % (0.0-3.0) Basophils (%) (Auto) % (0.0-2.0) Sodium Level 143 MMOL/L (136-145) Potassium Level 3.3 MMOL/L (3.5-5.1) Chloride Level 109 MMOL/L (98-107) Carbon Dioxide Level 25 MMOL/L (21-32) Anion Gap 9 mmol/L (5-15) Blood Urea Nitrogen 25 mg/dL (7-18) Creatinine 1.4 MG/DL (0.55-1.30) Estimat Glomerular Filtration Rate > 60 mL/min (>60) Glucose Level 81 MG/DL (74-106) Uric Acid 5.2 MG/DL (2.6-7.2) Calcium Level 7.7 MG/DL (8.5-10.1) Phosphorus Level 2.6 MG/DL (2.5-4.9) Magnesium Level 1.8 MG/DL (1.8-2.4) Total Bilirubin 0.4 MG/DL (0.2-1.0) Aspartate Amino Transf (AST/SGOT) 57 U/L (15-37) Alanine Aminotransferase (ALT/SGPT) 32 U/L (12-78) Alkaline Phosphatase 125 U/L (46-116) Troponin I 0.033 ng/mL (0.000-0.056) C-Reactive Protein, Quantitative 7.0 mg/dL (0.00-0.90) Pro-B-Type Natriuretic Peptide 2365 pg/mL (0-125) Total Protein 5.0 G/DL (6.4-8.2) Albumin 2.0 G/DL (3.4-5.0) Globulin 3.0 g/dL Albumin/Globulin Ratio 0.7 (1.0-2.7) Arterial Blood pH 7.544 (7.350-7.450) Arterial Blood Partial Pressure CO2 24.6 mmHg (35.0-45.0) Arterial Blood Partial Pressure O2 121.2 mmHg (75.0-100.0) Arterial Blood HCO3 20.8 mmol/L (22.0-26.0) Arterial Blood Oxygen Saturation 98.1 % (95-100) Arterial Blood Base Excess -0.8 (-2-2) Asael Test Positive Test 01/22/20 18:27 01/22/20 23:08 01/23/20 04:00 01/23/20 05:35 POC Whole Blood Glucose 90 MG/DL (74-106) 108 MG/DL (74-106) White Blood Count 5.0 K/UL (4.8-10.8) Red Blood Count 3.21 M/UL (4.70-6.10) Hemoglobin 9.3 G/DL (14.2-18.0) Hematocrit 29.2 % (42.0-52.0) Mean Corpuscular Volume 91 FL (80-99) Mean Corpuscular Hemoglobin 28.9 PG (27.0-31.0) Mean Corpuscular Hemoglobin Concent 31.7 G/DL (32.0-36.0) Red Cell Distribution Width 20.5 % (11.6-14.8) Platelet Count 109 K/UL (150-450) Mean Platelet Volume 6.9 FL (6.5-10.1) Neutrophils (%) (Auto) 79.6 % (45.0-75.0) Lymphocytes (%) (Auto) 8.7 % (20.0-45.0) Monocytes (%) (Auto) 9.5 % (1.0-10.0) Eosinophils (%) (Auto) 1.1 % (0.0-3.0) Basophils (%) (Auto) 1.1 % (0.0-2.0) Sodium Level 141 MMOL/L (136-145) Potassium Level 3.7 MMOL/L (3.5-5.1) Chloride Level 109 MMOL/L (98-107) Carbon Dioxide Level 21 MMOL/L (21-32) Anion Gap 11 mmol/L (5-15) Blood Urea Nitrogen 27 mg/dL (7-18) Creatinine 1.5 MG/DL (0.55-1.30) Estimat Glomerular Filtration Rate 55.9 mL/min (>60) Glucose Level 105 MG/DL (74-106) Calcium Level 7.4 MG/DL (8.5-10.1) Test 01/23/20 07:51 01/23/20 10:46 01/23/20 13:02 01/23/20 20:57 Arterial Blood pH 7.480 (7.350-7.450) 7.435 (7.350-7.450) 7.472 (7.350-7.450) Arterial Blood Partial Pressure CO2 25.5 mmHg (35.0-45.0) 28.5 mmHg (35.0-45.0) 22.3 mmHg (35.0-45.0) Arterial Blood Partial Pressure O2 146.0 mmHg (75.0-100.0) 102.3 mmHg (75.0-100.0) 102.4 mmHg (75.0-100.0) Arterial Blood HCO3 18.6 mmol/L (22.0-26.0) 18.7 mmol/L (22.0-26.0) 15.9 mmol/L (22.0-26.0) Arterial Blood Oxygen Saturation 98.3 % (95-100) 97.3 % (95-100) 97.3 % (95-100) Arterial Blood Base Excess -3.9 (-2-2) -4.6 (-2-2) -6.2 (-2-2) Asael Test Positive Positive Positive POC Whole Blood Glucose 86 MG/DL (74-106) Test 01/24/20 04:00 01/24/20 05:41 White Blood Count 4.6 K/UL (4.8-10.8) Red Blood Count 3.46 M/UL (4.70-6.10) Hemoglobin 9.9 G/DL (14.2-18.0) Hematocrit 31.9 % (42.0-52.0) Mean Corpuscular Volume 92 FL (80-99) Mean Corpuscular Hemoglobin 28.7 PG (27.0-31.0) Mean Corpuscular Hemoglobin Concent 31.1 G/DL (32.0-36.0) Red Cell Distribution Width 21.4 % (11.6-14.8) Platelet Count 122 K/UL (150-450) Mean Platelet Volume 7.0 FL (6.5-10.1) Neutrophils (%) (Auto) 74.1 % (45.0-75.0) Lymphocytes (%) (Auto) 13.8 % (20.0-45.0) Monocytes (%) (Auto) 10.0 % (1.0-10.0) Eosinophils (%) (Auto) 1.4 % (0.0-3.0) Basophils (%) (Auto) 0.8 % (0.0-2.0) Sodium Level 143 MMOL/L (136-145) Potassium Level 3.9 MMOL/L (3.5-5.1) Chloride Level 112 MMOL/L (98-107) Carbon Dioxide Level 20 MMOL/L (21-32) Anion Gap 11 mmol/L (5-15) Blood Urea Nitrogen 25 mg/dL (7-18) Creatinine 1.3 MG/DL (0.55-1.30) Estimat Glomerular Filtration Rate > 60 mL/min (>60) Glucose Level 81 MG/DL (74-106) Calcium Level 7.8 MG/DL (8.5-10.1) Height (Feet): 6 Height (Inches): 0.00 Weight (Pounds): 150 Objective PE: Vitals: reviewed General Appearance: NAD HEENT: normocephalic, atraumatic Neck: non-tender, normal alignment Respiratory/Chest: nromal breath sounds bilaterally Cardiovascular/Chest: normal peripheral pulses, normal rate Abdomen: normal bowel sounds, soft, nontender Extremities: normal range of motion Samuel Son MD Jan 24, 2020 06:57
--- NOTE | 2020-01-24 07:46 | Infectious Diseases Prog Note ---
Assessment/Plan 69yo M with: Shock- likely combination septic and metabolic derangements- SP Probable UTI -01/10 u/a wbc 60-80, nit neg, leuk +3; ucx Neg -Bcx NTD Probable PNA -01/12 CXR: No significant change in bilateral patchy pulmondary opacities, concerning for pneumonia versus edemaq. Small bilateral pleural effusions. -01/10 CXR: Bilateral interstitial and airspace infiltrates versus edema persists. sp cx MRSA (S Vancomycin, bactrim, tetracycline) COVID19 neg -01/04 rapid COVID PCR neg x1 influenza PCR neg CXR: Mild interstitial vascular prominence. No focal infiltrate or consolidation. 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 Etiology not demonstrated. Empty bladder with a Mathew catheter. 3 hypoechoic lesions within the pancreatic head and body, each measuring about 5 mm. Appearance nonspecific. Bilateral pleural effusions. Echogenic liver, consistent with hepatocellular disease. Surface likely nodularity raises concern for cirrhosis. Gallbladder sludge. Negative for dilated bile ducts. Probable nonobstructive left intrarenal calculi. Multiple hepatic cysts Acute on chronic encephalopathy -CT head: 1. Markedly limited, near nondiagnostic evaluation due to motion artifact. Grossly, age-related changes and small vessel disease of aging are noted. Again grossly, no acute intracranial pathology is detected. If there is a high degree of concern or if there is concern for subtle abnormalities, magnetic resonance imaging of the brain with diffusion-weighted sequences should be performed, due to the markedly limited nature of the current study. Close clinical correlation is necessary. HTN COPD DM2 paraplegia Dementia non verbal [place] ([facility] [place]) Plan: Cont to monitor off abx -01/18 SP vanco IV #7 -01/16 SP Cefepime #4 -01/13 SP ZOsyn #4 -01/06 SP Ceftriaxone #2 -01/04 Sp IV Vancomycin x1, Cefepime x1 -f/u cx -Monitor CBC/CMP, temperatures -Renal, cards f/u -aspiration precautions D/w RN Thank you for consulting [facility]. Will continue to follow along with you. Subjective Allergies: Coded Allergies: No Known Allergies (Unverified , 03/18/19) AF WBC 4.6 NAD on venti mask Objective Last 24 Hour Vital Signs Date Time Temp Pulse Resp B/P (MAP) Pulse Ox O2 Delivery O2 Flow Rate FiO2 01/24/20 06:00 92 17 116/64 (81) 100 01/24/20 05:00 81 16 94/75 (81) 100 01/24/20 04:00 Nasal Cannula 2.0 01/24/20 04:00 89 17 116/71 (86) 100 01/24/20 04:00 2.0 01/24/20 04:00 98.2 89 17 116/71 (86) 100 01/24/20 03:14 86 01/24/20 03:00 89 21 129/67 (87) 99 01/24/20 02:00 90 20 120/70 (87) 99 01/24/20 01:00 89 19 125/66 (85) 99 01/24/20 00:00 98.4 89 18 137/75 (95) 100 01/24/20 00:00 2.0 01/24/20 00:00 Nasal Cannula 2.0 01/23/20 23:28 93 01/23/20 23:00 89 16 116/64 (81) 100 01/23/20 22:00 82 15 111/61 (78) 01/23/20 21:00 86 15 124/75 (91) 100 01/23/20 20:00 2.0 01/23/20 20:00 Nasal Cannula 2.0 01/23/20 20:00 98.9 102 19 136/75 (95) 99 01/23/20 19:58 109 01/23/20 19:01 100 Nasal Cannula 2.0 28 01/23/20 19:00 86 15 127/75 (92) 100 01/23/20 18:00 81 16 124/70 (88) 100 01/23/20 17:00 87 20 118/64 (82) 95 01/23/20 16:00 2.0 01/23/20 16:00 Nasal Cannula 2.0 01/23/20 16:00 97.7 82 18 126/65 (85) 98 01/23/20 16:00 78 01/23/20 15:00 77 17 116/73 (87) 100 01/23/20 14:00 77 17 129/67 (87) 100 01/23/20 13:00 81 17 115/63 (80) 98 01/23/20 12:00 98.5 82 17 116/72 (87) 100 01/23/20 11:20 80 01/23/20 11:15 2.0 01/23/20 11:15 Nasal Cannula 2.0 01/23/20 11:15 100 01/23/20 11:15 Nasal Cannula 2.0 28 01/23/20 11:15 100 Nasal Cannula 2.0 28 01/23/20 11:00 81 17 102/62 (75) 100 01/23/20 10:00 88 18 97/61 (73) 100 01/23/20 09:11 30 01/23/20 09:11 93 14 40 01/23/20 09:00 68 16 106/54 (71) 100 01/23/20 08:05 30 01/23/20 08:04 30 01/23/20 08:00 Mechanical Ventilator 01/23/20 08:00 79 01/23/20 08:00 99.7 75 16 92/54 (67) 100 Height (Feet): 6 Height (Inches): 0.00 Weight (Pounds): 150 Gen: NAD in bed HEENT: NCAT CV: RRR Pulm: BL chest rise on Venti mask Abd: Soft, Non-distended Ext: No c/c/e Neuro: Awake Laboratory Tests Test 01/23/20 07:51 01/23/20 10:46 01/23/20 13:02 01/23/20 20:57 Arterial Blood pH 7.480 (7.350-7.450) 7.435 (7.350-7.450) 7.472 (7.350-7.450) Arterial Blood Partial Pressure CO2 25.5 mmHg (35.0-45.0) L 28.5 mmHg (35.0-45.0) L 22.3 mmHg (35.0-45.0) *L Arterial Blood Partial Pressure O2 146.0 mmHg (75.0-100.0) H 102.3 mmHg (75.0-100.0) H 102.4 mmHg (75.0-100.0) H Arterial Blood HCO3 18.6 mmol/L (22.0-26.0) L 18.7 mmol/L (22.0-26.0) L 15.9 mmol/L (22.0-26.0) *L Arterial Blood Oxygen Saturation 98.3 % (95-100) 97.3 % (95-100) 97.3 % (95-100) Arterial Blood Base Excess -3.9 (-2-2) L -4.6 (-2-2) L -6.2 (-2-2) L Asael Test Positive Positive Positive POC Whole Blood Glucose 86 MG/DL (74-106) Test 01/24/20 04:00 01/24/20 05:41 White Blood Count 4.6 K/UL (4.8-10.8) L Red Blood Count 3.46 M/UL (4.70-6.10) L Hemoglobin 9.9 G/DL (14.2-18.0) L Hematocrit 31.9 % (42.0-52.0) L Mean Corpuscular Volume 92 FL (80-99) Mean Corpuscular Hemoglobin 28.7 PG (27.0-31.0) Mean Corpuscular Hemoglobin Concent 31.1 G/DL (32.0-36.0) L Red Cell Distribution Width 21.4 % (11.6-14.8) H Platelet Count 122 K/UL (150-450) L Mean Platelet Volume 7.0 FL (6.5-10.1) Neutrophils (%) (Auto) 74.1 % (45.0-75.0) Lymphocytes (%) (Auto) 13.8 % (20.0-45.0) L Monocytes (%) (Auto) 10.0 % (1.0-10.0) Eosinophils (%) (Auto) 1.4 % (0.0-3.0) Basophils (%) (Auto) 0.8 % (0.0-2.0) Sodium Level 143 MMOL/L (136-145) Potassium Level 3.9 MMOL/L (3.5-5.1) Chloride Level 112 MMOL/L (98-107) H Carbon Dioxide Level 20 MMOL/L (21-32) L Anion Gap 11 mmol/L (5-15) Blood Urea Nitrogen 25 mg/dL (7-18) H Creatinine 1.3 MG/DL (0.55-1.30) Estimat Glomerular Filtration Rate > 60 mL/min (>60) Glucose Level 81 MG/DL (74-106) Calcium Level 7.8 MG/DL (8.5-10.1) L POC Whole Blood Glucose Pending Current Medications Medications (Trade) Dose Ordered Sig/Jesse Route PRN Reason Start Time Stop Time Status Last Admin Dose Admin Acetaminophen (Tylenol) 650 mg Q4H PRN ORAL PRNH/TEMP 01/05/20 20:15 02/04/20 20:14 01/12/20 03:10 Bisacodyl (Dulcolax) 10 mg DAILY PRN RECTAL Constipation 01/05/20 20:15 04/04/20 20:14 Chlorhexidine Gluconate (Navya-Hex 2%) 1 applic DAILY@1999 TOPIC 01/11/20 20:00 04/10/20 19:59 01/23/20 20:52 Dextrose (Dextrose 50%) 25 ml Q30M PRN IV Hypoglycemia 01/05/20 20:15 04/04/20 20:14 Dextrose (Dextrose 50%) 50 ml Q30M PRN IV Hypoglycemia 01/05/20 20:15 04/04/20 20:14 Linaclotide (Linzess) 290 mcg BEFORE BREAKFAST ORAL 01/10/20 06:30 04/09/20 06:29 01/23/20 05:34 Metoclopramide HCl (Reglan) 10 mg EVERY 6 HOURS NG 01/19/20 12:00 02/18/20 11:59 01/24/20 05:43 Metoclopramide HCl (Reglan) 10 mg Q6H PRN IVP Nausea & Vomiting 01/16/20 13:00 02/15/20 12:59 Midodrine (Pro-Amatine) 10 mg Q8HR NG 01/20/20 22:00 04/13/20 17:59 01/23/20 05:33 Ondansetron HCl (Zofran) 4 mg Q6H PRN IVP Nausea & Vomiting 01/10/20 06:30 02/09/20 06:29 Pantoprazole (Protonix) 40 mg EVERY 12 HOURS IVP 01/20/20 21:00 02/19/20 20:59 01/23/20 20:51 Polyethylene Glycol (Miralax) 17 gm BEDTIME NG 01/11/20 21:00 02/08/20 20:59 01/20/20 20:22 Sennosides (Senokot) 8.6 mg QHS NG 01/11/20 21:00 02/04/20 20:59 01/22/20 20:06 Vitamin D (Vitamin D) 3,000 intlu DAILY GT 01/19/20 12:00 02/18/20 11:59 01/23/20 09:38 Nayana Ochoa M.D. Jan 24, 2020 07:46
[2020-01-24 08:09] LABS: ALANINE AMINOTRANSFERASE 32 U/L (12-78); ALBUMIN 2.3 G/DL (3.4-5.0); ALKALINE PHOSPHATASE 154 U/L (46-116); ASPARTATE AMINO TRANSFERASE 47 U/L (15-37); BILIRUBIN,DIRECT 0.1 MG/DL (0.0-0.3); BILIRUBIN,TOTAL 0.4 MG/DL (0.2-1.0); PHOSPHORUS 2.6 MG/DL (2.5-4.9)
[2020-01-24] MEDS: Vitamin D 1000 IU Tab GT SCH (09:15)
[2020-01-24] MEDS: Pantoprazole Inj IVP SCH ×2 (09:15→21:06)
--- NOTE | 2020-01-24 10:36 | Pulmonology Progress Note ---
Subjective ROS Limited/Unobtainable: Yes Interval Events: Extubated yesterday Constitutional: Reports: no symptoms HEENT: Repors: no symptoms Respiratory: Reports: no symptoms Cardiovascular: Reports: no symptoms Gastrointestinal/Abdominal: Reports: no symptoms Genitourinary: Reports: no symptoms Allergies: Coded Allergies: No Known Allergies (Unverified , 03/18/19) All Systems: reviewed and negative except above Objective Last 24 Hour Vital Signs Date Time Temp Pulse Resp B/P (MAP) Pulse Ox O2 Delivery O2 Flow Rate FiO2 01/24/20 06:00 92 17 116/64 (81) 100 01/24/20 05:00 81 16 94/75 (81) 100 01/24/20 04:00 Nasal Cannula 2.0 01/24/20 04:00 89 17 116/71 (86) 100 01/24/20 04:00 2.0 01/24/20 04:00 98.2 89 17 116/71 (86) 100 01/24/20 03:14 86 01/24/20 03:00 89 21 129/67 (87) 99 01/24/20 02:00 90 20 120/70 (87) 99 01/24/20 01:00 89 19 125/66 (85) 99 01/24/20 00:00 98.4 89 18 137/75 (95) 100 01/24/20 00:00 2.0 01/24/20 00:00 Nasal Cannula 2.0 01/23/20 23:28 93 01/23/20 23:00 89 16 116/64 (81) 100 01/23/20 22:00 82 15 111/61 (78) 01/23/20 21:00 86 15 124/75 (91) 100 01/23/20 20:00 2.0 01/23/20 20:00 Nasal Cannula 2.0 01/23/20 20:00 98.9 102 19 136/75 (95) 99 01/23/20 19:58 109 01/23/20 19:01 100 Nasal Cannula 2.0 28 01/23/20 19:00 86 15 127/75 (92) 100 01/23/20 18:00 81 16 124/70 (88) 100 01/23/20 17:00 87 20 118/64 (82) 95 01/23/20 16:00 2.0 01/23/20 16:00 Nasal Cannula 2.0 01/23/20 16:00 97.7 82 18 126/65 (85) 98 01/23/20 16:00 78 01/23/20 15:00 77 17 116/73 (87) 100 01/23/20 14:00 77 17 129/67 (87) 100 01/23/20 13:00 81 17 115/63 (80) 98 01/23/20 12:00 98.5 82 17 116/72 (87) 100 01/23/20 11:20 80 01/23/20 11:15 2.0 01/23/20 11:15 Nasal Cannula 2.0 01/23/20 11:15 100 01/23/20 11:15 Nasal Cannula 2.0 28 01/23/20 11:15 100 Nasal Cannula 2.0 28 01/23/20 11:00 81 17 102/62 (75) 100 Intake and Output 01/23/20 01/24/20 19:00 07:00 Intake Total 450 ml 590 ml Output Total 1160 ml 1115 ml Balance -710 ml -525 ml Free Water 90 ml Tube Feeding 450 ml 500 ml Output Urine Total 835 ml 1115 ml Stool Total 325 ml General Appearance: no acute distress HEENT: normocephalic Respiratory: chest wall non-tender, lungs clear Cardiovascular: normal peripheral pulses, normal rate Abdomen: normal bowel sounds Laboratory Tests 01/23/20 10:46: Arterial Blood pH 7.435, Arterial Blood Partial Pressure CO2 28.5L, Arterial Blood Partial Pressure O2 102.3H, Arterial Blood HCO3 18.7L, Arterial Blood Oxygen Saturation 97.3, Arterial Blood Base Excess -4.6L, Asael Test Positive 01/23/20 13:02: POC Whole Blood Glucose 86 01/23/20 20:57: Arterial Blood pH 7.472H, Arterial Blood Partial Pressure CO2 22.3*L, Arterial Blood Partial Pressure O2 102.4H, Arterial Blood HCO3 15.9*L, Arterial Blood Oxygen Saturation 97.3, Arterial Blood Base Excess -6.2L, Asael Test Positive 01/24/20 04:00: White Blood Count 4.6L, Red Blood Count 3.46L, Hemoglobin 9.9L, Hematocrit 31.9L , Mean Corpuscular Volume 92, Mean Corpuscular Hemoglobin 28.7, Mean Corpuscular Hemoglobin Concent 31.1L, Red Cell Distribution Width 21.4H, Platelet Count 122L , Mean Platelet Volume 7.0, Neutrophils (%) (Auto) 74.1, Lymphocytes (%) (Auto) 13.8L, Monocytes (%) (Auto) 10.0, Eosinophils (%) (Auto) 1.4, Basophils (%) (Auto) 0.8, Sodium Level 143, Potassium Level 3.9, Chloride Level 112H, Carbon Dioxide Level 20L, Anion Gap 11, Blood Urea Nitrogen 25H, Creatinine 1.3, Estimat Glomerular Filtration Rate > 60, Glucose Level 81, Uric Acid 5.1, Calcium Level 7.8L, Phosphorus Level 2.6, Magnesium Level 1.7L, Total Bilirubin 0.4, Direct Bilirubin 0.1, Aspartate Amino Transf (AST/SGOT) 47H, Alanine Aminotransferase (ALT/SGPT) 32, Alkaline Phosphatase 154H, Total Protein 5.9L, Albumin 2.3L 01/24/20 05:41: POC Whole Blood Glucose [Pending] Current Medications Medications (Trade) Dose Ordered Sig/Jesse Route PRN Reason Start Time Stop Time Status Last Admin Dose Admin Acetaminophen (Tylenol) 650 mg Q4H PRN ORAL PRNH/TEMP 01/05/20 20:15 02/04/20 20:14 01/12/20 03:10 Bisacodyl (Dulcolax) 10 mg DAILY PRN RECTAL Constipation 01/05/20 20:15 04/04/20 20:14 Chlorhexidine Gluconate (Navya-Hex 2%) 1 applic DAILY@1999 TOPIC 01/11/20 20:00 04/10/20 19:59 01/23/20 20:52 Dextrose (Dextrose 50%) 25 ml Q30M PRN IV Hypoglycemia 01/05/20 20:15 04/04/20 20:14 Dextrose (Dextrose 50%) 50 ml Q30M PRN IV Hypoglycemia 01/05/20 20:15 04/04/20 20:14 Linaclotide (Linzess) 290 mcg BEFORE BREAKFAST ORAL 01/10/20 06:30 04/09/20 06:29 01/23/20 05:34 Metoclopramide HCl (Reglan) 10 mg EVERY 6 HOURS NG 01/19/20 12:00 02/18/20 11:59 01/24/20 05:43 Metoclopramide HCl (Reglan) 10 mg Q6H PRN IVP Nausea & Vomiting 01/16/20 13:00 02/15/20 12:59 Midodrine (Pro-Amatine) 10 mg Q8HR NG 01/20/20 22:00 04/13/20 17:59 01/23/20 05:33 Ondansetron HCl (Zofran) 4 mg Q6H PRN IVP Nausea & Vomiting 01/10/20 06:30 02/09/20 06:29 Pantoprazole (Protonix) 40 mg EVERY 12 HOURS IVP 01/20/20 21:00 02/19/20 20:59 01/24/20 09:15 Polyethylene Glycol (Miralax) 17 gm BEDTIME NG 01/11/20 21:00 02/08/20 20:59 01/20/20 20:22 Sennosides (Senokot) 8.6 mg QHS NG 01/11/20 21:00 02/04/20 20:59 01/22/20 20:06 Vitamin D (Vitamin D) 3,000 intlu DAILY GT 01/19/20 12:00 02/18/20 11:59 01/24/20 09:15 Assessment/Plan Assessment/Plan IMPRESSION: 1. Severe metabolic acidosis. Corrected; now has combined respiratory and metabolic alkalosis 2. Respiratory failure; now extubated 3. Diarrhea. 4. Acute renal failure. Nephrology following; 5. Anemia; DISCUSSION: EGD and PEG scheduled Remains obtunded Saturating well on ventimask Daxa Infante Omar Syed MD Jan 24, 2020 10:35
--- NOTE | 2020-01-24 11:02 | Nephrology Progress Note ---
Assessment/Plan Problem List: (1) ARF (acute renal failure) (2) Hypernatremia (3) Hypovolemic shock (4) Altered level of consciousness (5) Hypercalcemia (6) Hyperuricemia (7) Pelvic mass Assessment: Prostate cancer Assessment Acute renal failure Possible underlying chronic kidney failure Severe dehydration Hypernatremia indicative of severe water deficit Severe hyperuricemia, partly due to dehydration and renal failure Acute metabolic and toxic encephalopathy Mild, malnutrition Anemia Lactic acid, possible sepsis Hypercalcemia Plan January 23: Stable from renal standpoint of view. On Venturi mask. Low magnesium addressed. Continue per consultants. January 22: Patient off pressors. Patient extubated. Labs reviewed. Renal parameters are stable. January 21: Patient on low-dose pressors. Remains hypotensive. Renal parameters stable. Weaning trial in process. Mental status remains poor. January 20: Patient in ICU. Intubated. Full code. Has advanced prostate cancer. On IV Lasix drip. Low magnesium and low phosphorus and low potassium noted and addressed. Continue per consultants. January 19: Patient in ICU. Intubated. Was coded yesterday. Labs reviewed. Medication list reviewed and adjusted. Continue per consultants. Patient full code. Prognosis poor. PSA over 2700 January 18: Labs reviewed. IV fluid discontinued. IV calcium dose decreased. Midodrine dose decreased. Reglan and Protonix changed to GT route. Vitamin D initiated. Continue to monitor renal parameters and calcium level. January 17: Labs reviewed. Abnormal electrolyte addressed. Continue per consultants. January 16: Patient now in telemetry. Labs pending. Continue to monitor renal parameters. Continue per consultants. January 15: Still in ICU. Doing well post extubation. Renal parameters improving. Not requiring any more dialysis treatment after the first dialysis treatment. Medications reviewed. Continue per consultants. January 14: Remains in ICU. Tolerating extubation. Labs reviewed. Abnormal electrolytes addressed. Serum creatinine lowering. Continue per current management. Stop Phos binders. Increase calcium IV. January 13: In ICU. Now extubated. Only dialyzed once. Urine output maintained. Serum creatinine down to 2.5. Patient has NG tube. Continue to monitor renal parameters. Continue per consultants. Abnormal electrolytes addressed. January 12: Remains in ICU. Intubated. Transfused yesterday. Abnormal electrolytes addressed. Dialyzed once January 10. Serum creatinine stable. Wi ll adjust IV fluid. Monitor renal parameters. Dialysis as needed. Calcium gluconate IV ordered. Ionized calcium level ordered with tomorrow's labs. January 11: Patient in ICU. Intubated. On Levophed. Hemoglobin low. Due for transfusion. Electrolyte abnormalities noted and addressed. Patient was dialyzed yesterday. Will check lab tomorrow. Dialysis as needed. Discussed with SELIN Srivastava. January 10: Patient is doing poorly. Blood pressure low. ABG abnormal with metabolic acidosis. IV sodium bicarb given. Serum creatinine reno. Patient has acute renal failure. Nontunneled dialysis catheter replacement ordered.. Patient need life saving dialysis treatment SRINIVAS. January 09: Labs reviewed. IV D5 and a half with sodium bicarb initiated. Serum creatinine higher. Continue to monitor renal parameters. NG feeding was changed to Nepro. Patient remains full code. Poor prognosis. January 08: Labs reviewed. IV D5W discontinued. 500 cc 3% saline ordered. NG tube for feeding and for medications. Allopurinol dose increased. Continue to monitor renal parameters serum calcium and phosphorus. January 07: Labs reviewed. Serum calcium remains elevated. Uric acid still elevated. Will give pamidronate 60 mg IV piggyback once for hypercalcemia. Continue to monitor renal parameters. Continue D5W 150 cc an hour. Start Bicitra 30 cc p.o. every 6 hours. Add allopurinol D5W IV hydration Albumin bolus N.p.o. until able to take p.o. Antibiotics Monitor renal parameters monitor calcium, monitor uric acid Subjective ROS Limited/Unobtainable: Yes Objective Objective Last 24 Hour Vital Signs Date Time Temp Pulse Resp B/P (MAP) Pulse Ox O2 Delivery O2 Flow Rate FiO2 01/24/20 10:00 84 16 118/64 (82) 100 01/24/20 09:00 90 15 116/70 (85) 100 01/24/20 08:00 6.0 01/24/20 08:00 98.4 91 17 106/68 (81) 100 01/24/20 07:41 86 01/24/20 07:00 87 16 118/69 (85) 100 01/24/20 06:00 92 17 116/64 (81) 100 01/24/20 05:00 81 16 94/75 (81) 100 01/24/20 04:00 Nasal Cannula 2.0 01/24/20 04:00 89 17 116/71 (86) 100 01/24/20 04:00 2.0 01/24/20 04:00 98.2 89 17 116/71 (86) 100 01/24/20 03:14 86 01/24/20 03:00 89 21 129/67 (87) 99 01/24/20 02:00 90 20 120/70 (87) 99 01/24/20 01:00 89 19 125/66 (85) 99 01/24/20 00:00 98.4 89 18 137/75 (95) 100 01/24/20 00:00 2.0 01/24/20 00:00 Nasal Cannula 2.0 01/23/20 23:28 93 01/23/20 23:00 89 16 116/64 (81) 100 01/23/20 22:00 82 15 111/61 (78) 01/23/20 21:00 86 15 124/75 (91) 100 01/23/20 20:00 2.0 01/23/20 20:00 Nasal Cannula 2.0 01/23/20 20:00 98.9 102 19 136/75 (95) 99 01/23/20 19:58 109 01/23/20 19:01 100 Nasal Cannula 2.0 28 01/23/20 19:00 86 15 127/75 (92) 100 01/23/20 18:00 81 16 124/70 (88) 100 01/23/20 17:00 87 20 118/64 (82) 95 01/23/20 16:00 2.0 01/23/20 16:00 Nasal Cannula 2.0 01/23/20 16:00 97.7 82 18 126/65 (85) 98 01/23/20 16:00 78 01/23/20 15:00 77 17 116/73 (87) 100 01/23/20 14:00 77 17 129/67 (87) 100 01/23/20 13:00 81 17 115/63 (80) 98 01/23/20 12:00 98.5 82 17 116/72 (87) 100 01/23/20 11:20 80 01/23/20 11:15 2.0 01/23/20 11:15 Nasal Cannula 2.0 01/23/20 11:15 100 01/23/20 11:15 Nasal Cannula 2.0 28 11/18/20 11:15 100 Nasal Cannula 2.0 28 Intake and Output 01/23/20 01/24/20 19:00 07:00 Intake Total 450 ml 590 ml Output Total 1160 ml 1115 ml Balance -710 ml -525 ml Free Water 90 ml Tube Feeding 450 ml 500 ml Output Urine Total 835 ml 1115 ml Stool Total 325 ml Current Medications Medications (Trade) Dose Ordered Sig/Jesse Route PRN Reason Start Time Stop Time Status Last Admin Dose Admin Acetaminophen (Tylenol) 650 mg Q4H PRN ORAL PRNH/TEMP 01/05/20 20:15 02/04/20 20:14 01/12/20 03:10 Bisacodyl (Dulcolax) 10 mg DAILY PRN RECTAL Constipation 01/05/20 20:15 04/04/20 20:14 Chlorhexidine Gluconate (Navya-Hex 2%) 1 applic DAILY@1999 TOPIC 01/11/20 20:00 04/10/20 19:59 01/23/20 20:52 Dextrose (Dextrose 50%) 25 ml Q30M PRN IV Hypoglycemia 01/05/20 20:15 04/04/20 20:14 Dextrose (Dextrose 50%) 50 ml Q30M PRN IV Hypoglycemia 01/05/20 20:15 04/04/20 20:14 Linaclotide (Linzess) 290 mcg BEFORE BREAKFAST ORAL 01/10/20 06:30 04/09/20 06:29 01/23/20 05:34 Metoclopramide HCl (Reglan) 10 mg EVERY 6 HOURS NG 01/19/20 12:00 02/18/20 11:59 01/24/20 05:43 Metoclopramide HCl (Reglan) 10 mg Q6H PRN IVP Nausea & Vomiting 01/16/20 13:00 02/15/20 12:59 Midodrine (Pro-Amatine) 10 mg Q8HR NG 01/20/20 22:00 04/13/20 17:59 01/23/20 05:33 Ondansetron HCl (Zofran) 4 mg Q6H PRN IVP Nausea & Vomiting 01/10/20 06:30 02/09/20 06:29 Pantoprazole (Protonix) 40 mg EVERY 12 HOURS IVP 01/20/20 21:00 02/19/20 20:59 01/24/20 09:15 Polyethylene Glycol (Miralax) 17 gm BEDTIME NG 01/11/20 21:00 02/08/20 20:59 01/20/20 20:22 Sennosides (Senokot) 8.6 mg QHS NG 01/11/20 21:00 02/04/20 20:59 01/22/20 20:06 Vitamin D (Vitamin D) 3,000 intlu DAILY GT 01/19/20 12:00 02/18/20 11:59 01/24/20 09:15 Laboratory Tests 01/23/20 13:02: POC Whole Blood Glucose 86 01/23/20 20:57: Arterial Blood pH 7.472H, Arterial Blood Partial Pressure CO2 22.3*L, Arterial Blood Partial Pressure O2 102.4H, Arterial Blood HCO3 15.9*L, Arterial Blood Oxygen Saturation 97.3, Arterial Blood Base Excess -6.2L, Asael Test Positive 01/24/20 04:00: White Blood Count 4.6L, Red Blood Count 3.46L, Hemoglobin 9.9L, Hematocrit 31.9L , Mean Corpuscular Volume 92, Mean Corpuscular Hemoglobin 28.7, Mean Corpuscular Hemoglobin Concent 31.1L, Red Cell Distribution Width 21.4H, Platelet Count 122L , Mean Platelet Volume 7.0, Neutrophils (%) (Auto) 74.1, Lymphocytes (%) (Auto) 13.8L, Monocytes (%) (Auto) 10.0, Eosinophils (%) (Auto) 1.4, Basophils (%) (Auto) 0.8, Sodium Level 143, Potassium Level 3.9, Chloride Level 112H, Carbon Dioxide Level 20L, Anion Gap 11, Blood Urea Nitrogen 25H, Creatinine 1.3, Estimat Glomerular Filtration Rate > 60, Glucose Level 81, Uric Acid 5.1, Calcium Level 7.8L, Phosphorus Level 2.6, Magnesium Level 1.7L, Total Bilirubin 0.4, Direct Bilirubin 0.1, Aspartate Amino Transf (AST/SGOT) 47H, Alanine Aminotransferase (ALT/SGPT) 32, Alkaline Phosphatase 154H, Total Protein 5.9L, Albumin 2.3L 01/24/20 05:41: POC Whole Blood Glucose [Pending] 01/24/20 10:45: Arterial Blood pH [Pending], Arterial Blood Partial Pressure CO2 [Pending], Arterial Blood Partial Pressure O2 [Pending], Arterial Blood HCO3 [Pending], Arterial Blood Oxygen Saturation [Pending], Arterial Blood Base Excess [Pending], Asael Test [Pending] Height (Feet): 6 Height (Inches): 0.00 Weight (Pounds): 150 General Appearance: no apparent distress, lethargic EENT: other - On Venturi mask Cardiovascular: tachycardia Respiratory/Chest: decreased breath sounds Abdomen: distended Dhiraj Biswas MD Jan 24, 2020 11:02
--- NOTE | 2020-01-24 13:05 | General Progress Note ---
Subjective Constitutional: Reports: weakness Allergies: Coded Allergies: No Known Allergies (Unverified , 03/18/19) All Systems: reviewed and negative except above Subjective o2 mask ng in icu Objective Last 24 Hour Vital Signs Date Time Temp Pulse Resp B/P (MAP) Pulse Ox O2 Delivery O2 Flow Rate FiO2 01/24/20 11:00 87 22 102/60 (74) 100 01/24/20 10:00 84 16 118/64 (82) 100 01/24/20 09:00 90 15 116/70 (85) 100 01/24/20 08:00 6.0 01/24/20 08:00 98.4 91 17 106/68 (81) 100 01/24/20 08:00 Venturi Mask 6.0 01/24/20 07:41 86 01/24/20 07:00 87 16 118/69 (85) 100 01/24/20 06:00 92 17 116/64 (81) 100 01/24/20 05:00 81 16 94/75 (81) 100 01/24/20 04:00 Nasal Cannula 2.0 01/24/20 04:00 89 17 116/71 (86) 100 01/24/20 04:00 2.0 01/24/20 04:00 98.2 89 17 116/71 (86) 100 01/24/20 03:14 86 01/24/20 03:00 89 21 129/67 (87) 99 01/24/20 02:00 90 20 120/70 (87) 99 01/24/20 01:00 89 19 125/66 (85) 99 01/24/20 00:00 98.4 89 18 137/75 (95) 100 01/24/20 00:00 2.0 01/24/20 00:00 Nasal Cannula 2.0 01/23/20 23:28 93 01/23/20 23:00 89 16 116/64 (81) 100 01/23/20 22:00 82 15 111/61 (78) 01/23/20 21:00 86 15 124/75 (91) 100 01/23/20 20:00 2.0 01/23/20 20:00 Nasal Cannula 2.0 01/23/20 20:00 98.9 102 19 136/75 (95) 99 01/23/20 19:58 109 01/23/20 19:01 100 Nasal Cannula 2.0 28 01/23/20 19:00 86 15 127/75 (92) 100 01/23/20 18:00 81 16 124/70 (88) 100 01/23/20 17:00 87 20 118/64 (82) 95 01/23/20 16:00 2.0 01/23/20 16:00 Nasal Cannula 2.0 01/23/20 16:00 97.7 82 18 126/65 (85) 98 01/23/20 16:00 78 01/23/20 15:00 77 17 116/73 (87) 100 01/23/20 14:00 77 17 129/67 (87) 100 Intake and Output 01/23/20 01/24/20 19:00 07:00 Intake Total 450 ml 590 ml Output Total 1160 ml 1115 ml Balance -710 ml -525 ml Free Water 90 ml Tube Feeding 450 ml 500 ml Output Urine Total 835 ml 1115 ml Stool Total 325 ml Laboratory Tests 01/23/20 20:57: Arterial Blood pH 7.472H, Arterial Blood Partial Pressure CO2 22.3*L, Arterial Blood Partial Pressure O2 102.4H, Arterial Blood HCO3 15.9*L, Arterial Blood Oxygen Saturation 97.3, Arterial Blood Base Excess -6.2L, Asael Test Positive 01/24/20 04:00: White Blood Count 4.6L, Red Blood Count 3.46L, Hemoglobin 9.9L, Hematocrit 31.9L , Mean Corpuscular Volume 92, Mean Corpuscular Hemoglobin 28.7, Mean Corpuscular Hemoglobin Concent 31.1L, Red Cell Distribution Width 21.4H, Platelet Count 122L , Mean Platelet Volume 7.0, Neutrophils (%) (Auto) 74.1, Lymphocytes (%) (Auto) 13.8L, Monocytes (%) (Auto) 10.0, Eosinophils (%) (Auto) 1.4, Basophils (%) (Auto) 0.8, Sodium Level 143, Potassium Level 3.9, Chloride Level 112H, Carbon Dioxide Level 20L, Anion Gap 11, Blood Urea Nitrogen 25H, Creatinine 1.3, Estimat Glomerular Filtration Rate > 60, Glucose Level 81, Uric Acid 5.1, Calcium Level 7.8L, Phosphorus Level 2.6, Magnesium Level 1.7L, Total Bilirubin 0.4, Direct Bilirubin 0.1, Aspartate Amino Transf (AST/SGOT) 47H, Alanine Aminotransferase (ALT/SGPT) 32, Alkaline Phosphatase 154H, Total Protein 5.9L, Albumin 2.3L 01/24/20 05:41: POC Whole Blood Glucose [Pending] 01/24/20 10:45: Arterial Blood pH 7.459H, Arterial Blood Partial Pressure CO2 23.1*L, Arterial Blood Partial Pressure O2 127.3H, Arterial Blood HCO3 16.0*L, Arterial Blood Oxygen Saturation 98.2, Arterial Blood Base Excess -6.5L, Asael Test Positive Height (Feet): 6 Height (Inches): 0.00 Weight (Pounds): 150 General Appearance: lethargic EENT: normal ENT inspection Neck: normal alignment Cardiovascular: normal peripheral pulses, normal rate, regular rhythm Respiratory/Chest: chest wall non-tender, lungs clear, normal breath sounds Abdomen: normal bowel sounds, non tender, soft Extremities: normal inspection Edema: no edema noted Arm (L), no edema noted Arm (R), no edema noted Leg (L), no edema noted Leg (R), no edema noted Pedal (L), no edema noted Pedal (R), no edema noted Generalized Neurologic: motor weakness Skin: normal pigmentation, warm/dry Assessment/Plan Problem List: (1) Anemia ICD Codes: D64.9 - Anemia, unspecified SNOMED: 024457596 (2) Paraplegia ICD Codes: G82.20 - Paraplegia, unspecified SNOMED: 20894720 (3) Diabetes ICD Codes: E11.9 - Type 2 diabetes mellitus without complications SNOMED: 26169811 (4) Weak ICD Codes: R53.1 - Weakness SNOMED: 19968069 (5) HTN (hypertension) ICD Codes: I10 - Essential (primary) hypertension SNOMED: 28144836 (6) ARF (acute renal failure) ICD Codes: N17.9 - Acute kidney failure, unspecified SNOMED: 74877161 (7) Altered level of consciousness ICD Codes: R40.4 - Transient alteration of awareness SNOMED: 5496214 (8) Dehydration ICD Codes: E86.0 - Dehydration SNOMED: 03003022 (9) Hypernatremia ICD Codes: E87.0 - Hyperosmolality and hypernatremia SNOMED: 302666396 Status: unchanged Assessment/Plan: 02 pulm tx abx cbc bmp am Farrukh Ríos DO Jan 24, 2020 13:05
--- NOTE | 2020-01-24 13:12 | Surgery Progress Note ---
Surgery Progress Note Subjective Procedure Performed Right femoral temporary hemodialysis catheter insertion Additional Comments ill appearing no n/v labs noted exam as below Objective Last 24 Hour Vital Signs Date Time Temp Pulse Resp B/P (MAP) Pulse Ox O2 Delivery O2 Flow Rate FiO2 01/24/20 11:00 87 22 102/60 (74) 100 01/24/20 10:00 84 16 118/64 (82) 100 01/24/20 09:00 90 15 116/70 (85) 100 01/24/20 08:00 6.0 01/24/20 08:00 98.4 91 17 106/68 (81) 100 01/24/20 08:00 Venturi Mask 6.0 01/24/20 07:41 86 01/24/20 07:00 87 16 118/69 (85) 100 01/24/20 06:00 92 17 116/64 (81) 100 01/24/20 05:00 81 16 94/75 (81) 100 01/24/20 04:00 Nasal Cannula 2.0 01/24/20 04:00 89 17 116/71 (86) 100 01/24/20 04:00 2.0 01/24/20 04:00 98.2 89 17 116/71 (86) 100 01/24/20 03:14 86 01/24/20 03:00 89 21 129/67 (87) 99 01/24/20 02:00 90 20 120/70 (87) 99 01/24/20 01:00 89 19 125/66 (85) 99 01/24/20 00:00 98.4 89 18 137/75 (95) 100 01/24/20 00:00 2.0 01/24/20 00:00 Nasal Cannula 2.0 01/23/20 23:28 93 01/23/20 23:00 89 16 116/64 (81) 100 01/23/20 22:00 82 15 111/61 (78) 01/23/20 21:00 86 15 124/75 (91) 100 01/23/20 20:00 2.0 01/23/20 20:00 Nasal Cannula 2.0 01/23/20 20:00 98.9 102 19 136/75 (95) 99 01/23/20 19:58 109 01/23/20 19:01 100 Nasal Cannula 2.0 28 01/23/20 19:00 86 15 127/75 (92) 100 01/23/20 18:00 81 16 124/70 (88) 100 01/23/20 17:00 87 20 118/64 (82) 95 01/23/20 16:00 2.0 01/23/20 16:00 Nasal Cannula 2.0 01/23/20 16:00 97.7 82 18 126/65 (85) 98 01/23/20 16:00 78 01/23/20 15:00 77 17 116/73 (87) 100 01/23/20 14:00 77 17 129/67 (87) 100 I&O Intake and Output 01/23/20 01/24/20 19:00 07:00 Intake Total 450 ml 590 ml Output Total 1160 ml 1115 ml Balance -710 ml -525 ml Free Water 90 ml Tube Feeding 450 ml 500 ml Output Urine Total 835 ml 1115 ml Stool Total 325 ml Dressing: saturated Cardiovascular: RSR Respiratory: decreased breath sounds Abdomen: soft, non-distended, decreased bowel sounds Extremities: edema Laboratory Tests Test 01/23/20 20:57 01/24/20 04:00 01/24/20 05:41 01/24/20 10:45 Arterial Blood pH 7.472 (7.350-7.450) 7.459 (7.350-7.450) Arterial Blood Partial Pressure CO2 22.3 mmHg (35.0-45.0) *L 23.1 mmHg (35.0-45.0) *L Arterial Blood Partial Pressure O2 102.4 mmHg (75.0-100.0) H 127.3 mmHg (75.0-100.0) H Arterial Blood HCO3 15.9 mmol/L (22.0-26.0) *L 16.0 mmol/L (22.0-26.0) *L Arterial Blood Oxygen Saturation 97.3 % (95-100) 98.2 % (95-100) Arterial Blood Base Excess -6.2 (-2-2) L -6.5 (-2-2) L Asael Test Positive Positive White Blood Count 4.6 K/UL (4.8-10.8) L Red Blood Count 3.46 M/UL (4.70-6.10) L Hemoglobin 9.9 G/DL (14.2-18.0) L Hematocrit 31.9 % (42.0-52.0) L Mean Corpuscular Volume 92 FL (80-99) Mean Corpuscular Hemoglobin 28.7 PG (27.0-31.0) Mean Corpuscular Hemoglobin Concent 31.1 G/DL (32.0-36.0) L Red Cell Distribution Width 21.4 % (11.6-14.8) H Platelet Count 122 K/UL (150-450) L Mean Platelet Volume 7.0 FL (6.5-10.1) Neutrophils (%) (Auto) 74.1 % (45.0-75.0) Lymphocytes (%) (Auto) 13.8 % (20.0-45.0) L Monocytes (%) (Auto) 10.0 % (1.0-10.0) Eosinophils (%) (Auto) 1.4 % (0.0-3.0) Basophils (%) (Auto) 0.8 % (0.0-2.0) Sodium Level 143 MMOL/L (136-145) Potassium Level 3.9 MMOL/L (3.5-5.1) Chloride Level 112 MMOL/L (98-107) H Carbon Dioxide Level 20 MMOL/L (21-32) L Anion Gap 11 mmol/L (5-15) Blood Urea Nitrogen 25 mg/dL (7-18) H Creatinine 1.3 MG/DL (0.55-1.30) Estimat Glomerular Filtration Rate > 60 mL/min (>60) Glucose Level 81 MG/DL (74-106) Uric Acid 5.1 MG/DL (2.6-7.2) Calcium Level 7.8 MG/DL (8.5-10.1) L Phosphorus Level 2.6 MG/DL (2.5-4.9) Magnesium Level 1.7 MG/DL (1.8-2.4) L Total Bilirubin 0.4 MG/DL (0.2-1.0) Direct Bilirubin 0.1 MG/DL (0.0-0.3) Aspartate Amino Transf (AST/SGOT) 47 U/L (15-37) H Alanine Aminotransferase (ALT/SGPT) 32 U/L (12-78) Alkaline Phosphatase 154 U/L (46-116) H Total Protein 5.9 G/DL (6.4-8.2) L Albumin 2.3 G/DL (3.4-5.0) L POC Whole Blood Glucose Pending Plan Problems: (1) Altered level of consciousness (2) Hypovolemic shock Assessment & Plan: resuscitation extubated monitor respiratory keep hob elevated supplemental O2 Gallbladder demonstrates sludge. No stones, wall thickening, nor pericholecystic fluid. Patient unable to report Wilson's sign Common bile duct measures 3 mm in diameter. No intrahepatic biliary ductal dilatation. Liver demonstrates coarsened echogenicity and surface nodularity. It demonstrates m ultiple cysts. Portal vein and hepatic veins are patent. The pancreas demonstrates 3 hypoechoic lesions in the head and body, measuring approximately 5 mm in diameter each. Spleen is unremarkable, poorly visualized. Left kidney measures 11.4 cm in length. Right kidney measures 11.3 cm length. Both kidneys demonstrate normal echogenicity. There is severe right and moderate left hydronephrosis. Echogenic foci are seen in the left renal sinus and collecting system. Bladder is empty, contains a Mathew catheter. Non-aneurysmal abdominal aorta . There are bilateral pleural effusions Impression: Bilateral right greater than left hydronephrosis, increased since prior study of 03/20/2019. Etiology not demonstrated Empty bladder with a Mathew catheter 3 hypoechoic lesions within the pancreatic head and body, each measuring about 5 mm. Appearance nonspecific. Recommend further evaluation with pancreas protocol MRI Bilateral pleural effusions Echogenic liver, consistent with hepatocellular disease. Surface likely nodularity raises concern for cirrhosis Gallbladder sludge. Negative for dilated bile ducts Probable nonobstructive left intrarenal calculi Multiple hepatic cysts (3) Lactic acid acidosis (4) Hypernatremia (5) Paraplegia (6) Anemia Assessment & Plan: no active bleeding noted no large hematoma dressings okay likely related to heme will monitor transfuse prbc with HD trend labs thank you (7) Diabetes (8) Weak (9) HTN (hypertension) (10) ARF (acute renal failure) (11) Hypercalcemia (12) Hyperuricemia (13) Dehydration (14) UTI (urinary tract infection) (15) Failure to thrive in adult Assessment & Plan: patient identified to have DTI on bilateral heels right with 5cm x 4cm area of dti not open no drainage no signs of infection left with 3cm x 2cm. pillow under leg optifoam dressings nutritional optimization will follow no acute surgery DAILY ESTIMATED NEEDS: Needs based on underweight, suspected wt loss, HD, CRITICAL CARE/ 57.6kg 25-33 kcals/kg 6077-4054 total kcals 1.2-2 g protein/kg 69-115 g total protein 25-30 mL/kg 7274-7286 total fluid mLs NUTRITION DIAGNOSIS: *Increased kcal and pro needs r/t underweight status, suspected significant wt loss as evidenced by pt @ 71% IBW w/ BMI 17.2, underweight per guidelines, w/ suspected signficant wt loss of 30lbs/19% in 10 months. * Swallowing difficulty R/T dysphagia, respiratory status as evidenced by s/p NGT insertion (01/08), now NPO, s/p code blue (01/10), orally intubated. CURRENT TF:NPO ENTERAL NUTRITION RECOMMENDATIONS: WHEN HEMODYNAMICALLY STABLE: Nepro @ 40ml/hr x 24 hrs to provide 960ml, 1728kcal, 77g prot, 698ml free water WHEN HEMODYNAMICALLY STABLE AND MEDICALLY APPROPRIATE TO FEED: -> initiate TF @ 5ml/hr x 6hrs, advance slowly 5ml q 4-6 hrs as tolerated to goal rate -> HOB over 30 degrees/ water flush per MD WITHOUT HEMODYNAMIC STABILITY -> If medically appropriate to feed, rec trophic feeding of Nepro @ 5ml/hr x 24 hrs to maintain gut integrity (16) Pelvic mass Assessment & Plan: invasive pelvic mass likely prostate necrotic nodes likely spread recommend colonoscopy given invasion possible to rectum oncology input thank you There is a large pelvic mass which is cephalad to but inseparable from the prostate. This also is inseparable from the posterior wall of the bladder and there appears to be circumferential bladder wall thickening. This mass also appears to involve the seminal vesicles. This measures approximately 8.8 cm transverse by 10 cm craniocaudad by 7.4 cm AP. The periphery of this mass is very lobulated. The mass may also invade the adjacent rectum. There is bilateral iliac chain lymphadenopathy, with nodes measuring up to 3 cm in diameter. Some of these nodes are very low in attenuation indicating that they are necrotic. There is also retroperitoneal lymphadenopathy. There is severe right and moderate left hydronephrosis and bilateral hydroureter. The dilated ureters terminate at the level of the mass. No intrinsic renal parenchymal abnormality. The pancreas is unremarkable. No findings corresponding to the areas of low-attenuation described on prior sonogram are evident. No pancreatic ductal dilatation is evident. The liver demonstrates multiple cysts. The gallbladder, bile ducts, spleen, adrenals are unremarkable. The bones demonstrate diffuse involvement with multiple mixed osteolytic/osteosclerotic lesions, mostly sclerotic component predominating. There is a right groin dialysis catheter in place, tip at the level of the iliac venous confluence. There is a nasogastric tube,, tip in the stomach. There is a Mathew catheter. There is a rectal tube lying outside the patient with the balloon inflated within the inner gluteal fold. There are bilateral pleural effusions. There is compressive atelectasis of most if not all of both lower lobes. 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 Compressive atelectasis of most of not all of both lower lobes Other findings as noted, including multiple liver cysts Lázaro Jenkins Jan 24, 2020 13:12
[2020-01-24] MEDS: D5 1/2NS 1,000 ML IV SCH (13:46)
--- NOTE | 2020-01-24 14:24 | General Progress Note ---
Subjective ROS Limited/Unobtainable: No Allergies: Coded Allergies: No Known Allergies (Unverified , 03/18/19) Objective Last 24 Hour Vital Signs Date Time Temp Pulse Resp B/P (MAP) Pulse Ox O2 Delivery O2 Flow Rate FiO2 01/24/20 14:00 75 18 109/64 (79) 99 01/24/20 13:00 86 16 120/59 (79) 100 01/24/20 12:00 92 17 109/68 (82) 100 01/24/20 12:00 98.7 01/24/20 12:00 Venturi Mask 6.0 01/24/20 12:00 40 01/24/20 12:00 82 01/24/20 11:00 87 22 102/60 (74) 100 01/24/20 10:00 84 16 118/64 (82) 100 01/24/20 09:00 90 15 116/70 (85) 100 01/24/20 08:00 6.0 01/24/20 08:00 98.4 91 17 106/68 (81) 100 01/24/20 08:00 Venturi Mask 6.0 01/24/20 07:41 86 01/24/20 07:00 87 16 118/69 (85) 100 01/24/20 06:00 92 17 116/64 (81) 100 01/24/20 05:00 81 16 94/75 (81) 100 01/24/20 04:00 Nasal Cannula 2.0 01/24/20 04:00 89 17 116/71 (86) 100 01/24/20 04:00 2.0 01/24/20 04:00 98.2 89 17 116/71 (86) 100 01/24/20 03:14 86 01/24/20 03:00 89 21 129/67 (87) 99 01/24/20 02:00 90 20 120/70 (87) 99 01/24/20 01:00 89 19 125/66 (85) 99 01/24/20 00:00 98.4 89 18 137/75 (95) 100 01/24/20 00:00 2.0 01/24/20 00:00 Nasal Cannula 2.0 01/23/20 23:28 93 01/23/20 23:00 89 16 116/64 (81) 100 11/18/20 22:00 82 15 111/61 (78) 01/23/20 21:00 86 15 124/75 (91) 100 01/23/20 20:00 2.0 01/23/20 20:00 Nasal Cannula 2.0 01/23/20 20:00 98.9 102 19 136/75 (95) 99 01/23/20 19:58 109 01/23/20 19:01 100 Nasal Cannula 2.0 28 01/23/20 19:00 86 15 127/75 (92) 100 01/23/20 18:00 81 16 124/70 (88) 100 01/23/20 17:00 87 20 118/64 (82) 95 01/23/20 16:00 2.0 01/23/20 16:00 Nasal Cannula 2.0 01/23/20 16:00 97.7 82 18 126/65 (85) 98 01/23/20 16:00 78 01/23/20 15:00 77 17 116/73 (87) 100 Intake and Output 01/23/20 01/24/20 19:00 07:00 Intake Total 450 ml 590 ml Output Total 1160 ml 1115 ml Balance -710 ml -525 ml Free Water 90 ml Tube Feeding 450 ml 500 ml Output Urine Total 835 ml 1115 ml Stool Total 325 ml Laboratory Tests 01/23/20 20:57: Arterial Blood pH 7.472H, Arterial Blood Partial Pressure CO2 22.3*L, Arterial Blood Partial Pressure O2 102.4H, Arterial Blood HCO3 15.9*L, Arterial Blood Oxygen Saturation 97.3, Arterial Blood Base Excess -6.2L, Asael Test Positive 01/24/20 04:00: White Blood Count 4.6L, Red Blood Count 3.46L, Hemoglobin 9.9L, Hematocrit 31.9L , Mean Corpuscular Volume 92, Mean Corpuscular Hemoglobin 28.7, Mean Corpuscular Hemoglobin Concent 31.1L, Red Cell Distribution Width 21.4H, Platelet Count 122L , Mean Platelet Volume 7.0, Neutrophils (%) (Auto) 74.1, Lymphocytes (%) (Auto) 13.8L, Monocytes (%) (Auto) 10.0, Eosinophils (%) (Auto) 1.4, Basophils (%) (Auto) 0.8, Sodium Level 143, Potassium Level 3.9, Chloride Level 112H, Carbon Dioxide Level 20L, Anion Gap 11, Blood Urea Nitrogen 25H, Creatinine 1.3, Estimat Glomerular Filtration Rate > 60, Glucose Level 81, Uric Acid 5.1, Calcium Level 7.8L, Phosphorus Level 2.6, Magnesium Level 1.7L, Total Bilirubin 0.4, Direct Bilirubin 0.1, Aspartate Amino Transf (AST/SGOT) 47H, Alanine Aminotransferase (ALT/SGPT) 32, Alkaline Phosphatase 154H, Total Protein 5.9L, Albumin 2.3L 01/24/20 05:41: POC Whole Blood Glucose [Pending] 01/24/20 10:45: Arterial Blood pH 7.459H, Arterial Blood Partial Pressure CO2 23.1*L, Arterial Blood Partial Pressure O2 127.3H, Arterial Blood HCO3 16.0*L, Arterial Blood Oxygen Saturation 98.2, Arterial Blood Base Excess -6.5L, Asael Test Positive Height (Feet): 6 Height (Inches): 0.00 Weight (Pounds): 150 General Appearance: lethargic EENT: normal ENT inspection Neck: supple Cardiovascular: tachycardia Respiratory/Chest: decreased breath sounds Abdomen: hypoactive bowel sounds Extremities: non-tender Assessment/Plan Status: unchanged Assessment/Plan: AMS dementia Anemia DM hyper CA elevated AST low albumin COPD RI HTN metastatic prostate CA NPO NGTF post blood transfusion poor prognosis PEG plans for tomorrow with 2 MD consent Paulino Bueno MD Jan 24, 2020 14:24
--- NOTE | 2020-01-24 17:17 | Cardiac Electrophysiology PN ---
Assessment/Plan Assessment/Plan 1. Altered mental status due to severe dehydration in view of sodium of 160 and acute renal failure. On IV fluids and IV antibiotics. Ruled out for [place]. 2. S/P Septic shock off Levophed and on iv Abx On Midodrine 10 tid 3. History of CVA, off Plavix in view of hematuria. 4. Respiratory failure, Extubated 01/22 5. Diabetes. 6. Acute renal failure. Cr 4.2. Had HD once only on 01/11/20. No more HD needed and Cr 1.2 7. Hematuria 8. Anemia with Hb 5.8 and coffee ground emesis. FU Dr Bueno 9. Shock liver with increase AST>2000 10. Pancreatic mass x3. CT abdomen and pelvis showed Large pelvic mass involving the prostate, bladder presumably representing prostatic malignancy 11. Dysphagia, NGT feeding. PEG tomorrow DW RN Subjective Subjective Coded 01/19 for respiratory failure followed by bradycardia and PEA. Extubated 01/23/20. Desaturated to 80s today and kpt in ICU. On Venturi Mask Fio 40% Scheduled for EGD/PEG tomorrow if off venturi Mask Objective Last 24 Hour Vital Signs Date Time Temp Pulse Resp B/P (MAP) Pulse Ox O2 Delivery O2 Flow Rate FiO2 01/24/20 17:00 93 15 118/66 (83) 100 01/24/20 16:15 40 01/24/20 16:00 76 17 111/63 (79) 100 01/24/20 16:00 Venturi Mask 6.0 01/24/20 16:00 87 01/24/20 15:00 90 16 108/71 (83) 100 01/24/20 14:00 75 18 109/64 (79) 99 01/24/20 13:00 86 16 120/59 (79) 100 01/24/20 12:00 92 17 109/68 (82) 100 01/24/20 12:00 98.7 01/24/20 12:00 Venturi Mask 6.0 01/24/20 12:00 40 01/24/20 12:00 82 01/24/20 11:00 87 22 102/60 (74) 100 01/24/20 10:00 84 16 118/64 (82) 100 01/24/20 09:00 90 15 116/70 (85) 100 01/24/20 08:00 6.0 01/24/20 08:00 98.4 91 17 106/68 (81) 100 01/24/20 08:00 Venturi Mask 6.0 01/24/20 07:41 86 01/24/20 07:00 87 16 118/69 (85) 100 01/24/20 06:40 100 Venturi Mask 10.0 40 01/24/20 06:00 92 17 116/64 (81) 100 01/24/20 05:00 81 16 94/75 (81) 100 01/24/20 04:00 Nasal Cannula 2.0 01/24/20 04:00 89 17 116/71 (86) 100 01/24/20 04:00 2.0 01/24/20 04:00 98.2 89 17 116/71 (86) 100 01/24/20 03:14 86 01/24/20 03:00 89 21 129/67 (87) 99 01/24/20 02:00 90 20 120/70 (87) 99 01/24/20 01:00 89 19 125/66 (85) 99 01/24/20 00:00 98.4 89 18 137/75 (95) 100 01/24/20 00:00 2.0 01/24/20 00:00 Nasal Cannula 2.0 01/23/20 23:28 93 01/23/20 23:00 89 16 116/64 (81) 100 01/23/20 22:00 82 15 111/61 (78) 01/23/20 21:00 86 15 124/75 (91) 100 01/23/20 20:00 2.0 01/23/20 20:00 Nasal Cannula 2.0 01/23/20 20:00 98.9 102 19 136/75 (95) 99 01/23/20 19:58 109 01/23/20 19:01 100 Nasal Cannula 2.0 28 01/23/20 19:00 86 15 127/75 (92) 100 01/23/20 18:00 81 16 124/70 (88) 100 Intake and Output 01/23/20 01/24/20 19:00 07:00 Intake Total 450 ml 590 ml Output Total 1160 ml 1115 ml Balance -710 ml -525 ml Free Water 90 ml Tube Feeding 450 ml 500 ml Output Urine Total 835 ml 1115 ml Stool Total 325 ml Laboratory Tests Test 01/23/20 20:57 01/24/20 04:00 01/24/20 05:41 01/24/20 10:45 Arterial Blood pH 7.472 (7.350-7.450) 7.459 (7.350-7.450) Arterial Blood Partial Pressure CO2 22.3 mmHg (35.0-45.0) *L 23.1 mmHg (35.0-45.0) *L Arterial Blood Partial Pressure O2 102.4 mmHg (75.0-100.0) H 127.3 mmHg (75.0-100.0) H Arterial Blood HCO3 15.9 mmol/L (22.0-26.0) *L 16.0 mmol/L (22.0-26.0) *L Arterial Blood Oxygen Saturation 97.3 % (95-100) 98.2 % (95-100) Arterial Blood Base Excess -6.2 (-2-2) L -6.5 (-2-2) L Asael Test Positive Positive White Blood Count 4.6 K/UL (4.8-10.8) L Red Blood Count 3.46 M/UL (4.70-6.10) L Hemoglobin 9.9 G/DL (14.2-18.0) L Hematocrit 31.9 % (42.0-52.0) L Mean Corpuscular Volume 92 FL (80-99) Mean Corpuscular Hemoglobin 28.7 PG (27.0-31.0) Mean Corpuscular Hemoglobin Concent 31.1 G/DL (32.0-36.0) L Red Cell Distribution Width 21.4 % (11.6-14.8) H Platelet Count 122 K/UL (150-450) L Mean Platelet Volume 7.0 FL (6.5-10.1) Neutrophils (%) (Auto) 74.1 % (45.0-75.0) Lymphocytes (%) (Auto) 13.8 % (20.0-45.0) L Monocytes (%) (Auto) 10.0 % (1.0-10.0) Eosinophils (%) (Auto) 1.4 % (0.0-3.0) Basophils (%) (Auto) 0.8 % (0.0-2.0) Sodium Level 143 MMOL/L (136-145) Potassium Level 3.9 MMOL/L (3.5-5.1) Chloride Level 112 MMOL/L (98-107) H Carbon Dioxide Level 20 MMOL/L (21-32) L Anion Gap 11 mmol/L (5-15) Blood Urea Nitrogen 25 mg/dL (7-18) H Creatinine 1.3 MG/DL (0.55-1.30) Estimat Glomerular Filtration Rate > 60 mL/min (>60) Glucose Level 81 MG/DL (74-106) Uric Acid 5.1 MG/DL (2.6-7.2) Calcium Level 7.8 MG/DL (8.5-10.1) L Phosphorus Level 2.6 MG/DL (2.5-4.9) Magnesium Level 1.7 MG/DL (1.8-2.4) L Total Bilirubin 0.4 MG/DL (0.2-1.0) Direct Bilirubin 0.1 MG/DL (0.0-0.3) Aspartate Amino Transf (AST/SGOT) 47 U/L (15-37) H Alanine Aminotransferase (ALT/SGPT) 32 U/L (12-78) Alkaline Phosphatase 154 U/L (46-116) H Total Protein 5.9 G/DL (6.4-8.2) L Albumin 2.3 G/DL (3.4-5.0) L POC Whole Blood Glucose Pending Objective HEAD AND NECK: NGT in place LUNGS: Coarse rhonchi. CARDIOVASCULAR: Regular S1 and S2 with no gallop. ABDOMEN: Soft. EXTREMITIES: No pitting edema.Right groin Mega in place Kevin Lopez MD Jan 24, 2020 17:17
[2020-01-24] MEDS: Miralax 17gm pkt NG SCH (21:00)
[2020-01-24] MEDS: Sennosides 8.6mg tab NG SCH (21:00)
[2020-01-24] MEDS: Dyna-Hex 2% Top Sol 2oz TOPIC SCH (21:06)
[2020-01-25] VITALS (24 sets, daily range): BP systolic 89–146; BP diastolic 62–82
[2020-01-25 05:12] LABS: ANION GAP 12 mmol/L (5-15); BLOOD UREA NITROGEN 18 mg/dL (7-18); CALCIUM 8.2 MG/DL (8.5-10.1); CARBON DIOXIDE 20 MMOL/L (21-32); CHLORIDE 110 MMOL/L (98-107); CREATININE 1.2 MG/DL (0.55-1.30); SODIUM 142 MMOL/L (136-145)
[2020-01-25 05:32] LABS: BASOPHILS % (AUTO) 1.9 % (0.0-2.0); EOSINOPHILS % (AUTO) 1.4 % (0.0-3.0); HEMATOCRIT 34.8 % (42.0-52.0); HEMOGLOBIN 10.6 G/DL (14.2-18.0); LYMPHOCYTES % (AUTO) 14.3 % (20.0-45.0); MEAN CORPUSCULAR VOLUME 93 FL (80-99); MONOCYTES % (AUTO) 12.4 % (1.0-10.0); PLATELET COUNT 133 K/UL (150-450); RED BLOOD COUNT 3.72 M/UL (4.70-6.10); RED CELL DISTRIBUTION WIDTH 21.2 % (11.6-14.8); WHITE BLOOD COUNT 4.1 K/UL (4.8-10.8)
[2020-01-25] MEDS: D5 1/2NS 1,000 ML IV SCH ×2 (05:47→22:59)
[2020-01-25] MEDS: Metoclopramide 10mg/10ml Liq NG SCH ×4 (05:47→23:37)
[2020-01-25] MEDS: Midodrine 10mg tab NG SCH ×3 (05:48→22:00)
--- NOTE | 2020-01-25 08:01 | Infectious Diseases Prog Note ---
Assessment/Plan 69yo M with: Shock- likely combination septic and metabolic derangements- SP Probable UTI -01/10 u/a wbc 60-80, nit neg, leuk +3; ucx Neg -Bcx NTD Probable PNA -01/12 CXR: No significant change in bilateral patchy pulmondary opacities, concerning for pneumonia versus edemaq. Small bilateral pleural effusions. -01/10 CXR: Bilateral interstitial and airspace infiltrates versus edema persists. sp cx MRSA (S Vancomycin, bactrim, tetracycline) COVID19 neg -01/04 rapid COVID PCR neg x1 influenza PCR neg CXR: Mild interstitial vascular prominence. No focal infiltrate or consolidation. 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 Etiology not demonstrated. Empty bladder with a Mathew catheter. 3 hypoechoic lesions within the pancreatic head and body, each measuring about 5 mm. Appearance nonspecific. Bilateral pleural effusions. Echogenic liver, consistent with hepatocellular disease. Surface likely nodularity raises concern for cirrhosis. Gallbladder sludge. Negative for dilated bile ducts. Probable nonobstructive left intrarenal calculi. Multiple hepatic cysts Acute on chronic encephalopathy -CT head: 1. Markedly limited, near nondiagnostic evaluation due to motion artifact. Grossly, age-related changes and small vessel disease of aging are noted. Again grossly, no acute intracranial pathology is detected. If there is a high degree of concern or if there is concern for subtle abnormalities, magnetic resonance imaging of the brain with diffusion-weighted sequences should be performed, due to the markedly limited nature of the current study. Close clinical correlation is necessary. HTN COPD DM2 paraplegia Dementia non verbal MD resident ([facility]) Plan: Cont to monitor off abx -01/18 SP vanco IV #7 -01/16 SP Cefepime #4 -01/13 SP ZOsyn #4 -01/06 SP Ceftriaxone #2 -01/04 Sp IV Vancomycin x1, Cefepime x1 -f/u cx -Monitor CBC/CMP, temperatures -Renal, cards f/u -aspiration precautions D/w RN Thank you for consulting [facility]. Will continue to follow along with you. Subjective Allergies: Coded Allergies: No Known Allergies (Unverified , 03/18/19) AF WBC 4.1 NAD on venti mask Doing well, moving to tele Objective Last 24 Hour Vital Signs Date Time Temp Pulse Resp B/P (MAP) Pulse Ox O2 Delivery O2 Flow Rate FiO2 01/25/20 07:00 95 14 89/62 (71) 100 01/25/20 06:00 96 14 138/80 (99) 100 01/25/20 05:00 94 14 121/78 (92) 100 01/25/20 04:00 97.7 98 14 110/75 (87) 100 01/25/20 04:00 30 01/25/20 04:00 Venturi Mask 4.0 01/25/20 03:02 99 01/25/20 03:00 96 15 117/77 (90) 100 01/25/20 02:00 109 16 135/77 (96) 100 01/25/20 01:00 96 15 122/77 (92) 100 01/25/20 00:00 98.4 95 14 123/69 (87) 100 01/25/20 00:00 Venturi Mask 4.0 01/25/20 00:00 30 01/24/20 23:13 89 01/24/20 23:00 89 15 125/73 (90) 01/24/20 22:00 89 23 114/65 (81) 100 01/24/20 21:00 92 17 123/71 (88) 97 01/24/20 20:00 90 01/24/20 20:00 Venturi Mask 4.0 01/24/20 20:00 98.4 90 17 116/62 (80) 97 01/24/20 20:00 30 01/24/20 19:30 96 Venturi Mask 10.0 40 01/24/20 19:00 92 17 119/63 (81) 96 01/24/20 18:00 92 23 106/64 (78) 100 01/24/20 17:00 93 15 118/66 (83) 100 01/24/20 16:15 40 01/24/20 16:00 76 17 111/63 (79) 100 01/24/20 16:00 Venturi Mask 6.0 01/24/20 16:00 87 01/24/20 16:00 97.4 01/24/20 15:00 90 16 108/71 (83) 100 01/24/20 14:00 75 18 109/64 (79) 99 01/24/20 13:00 86 16 120/59 (79) 100 01/24/20 12:00 92 17 109/68 (82) 100 01/24/20 12:00 98.7 01/24/20 12:00 Venturi Mask 6.0 01/24/20 12:00 40 01/24/20 12:00 82 01/24/20 11:00 87 22 102/60 (74) 100 01/24/20 10:00 84 16 118/64 (82) 100 01/24/20 09:00 90 15 116/70 (85) 100 Height (Feet): 6 Height (Inches): 0.00 Weight (Pounds): 150 Gen: NAD in bed HEENT: NCAT CV: RRR Pulm: BL chest rise on Venti mask Abd: Soft, Non-distended Ext: No c/c/e Neuro: Awake Laboratory Tests Test 01/24/20 10:45 01/24/20 23:21 01/25/20 01:56 01/25/20 04:00 Arterial Blood pH 7.459 (7.350-7.450) Arterial Blood Partial Pressure CO2 23.1 mmHg (35.0-45.0) *L Arterial Blood Partial Pressure O2 127.3 mmHg (75.0-100.0) H Arterial Blood HCO3 16.0 mmol/L (22.0-26.0) *L Arterial Blood Oxygen Saturation 98.2 % (95-100) Arterial Blood Base Excess -6.5 (-2-2) L Asael Test Positive POC Whole Blood Glucose Pending Pending White Blood Count 4.1 K/UL (4.8-10.8) L Red Blood Count 3.72 M/UL (4.70-6.10) L Hemoglobin 10.6 G/DL (14.2-18.0) L Hematocrit 34.8 % (42.0-52.0) L Mean Corpuscular Volume 93 FL (80-99) Mean Corpuscular Hemoglobin 28.4 PG (27.0-31.0) Mean Corpuscular Hemoglobin Concent 30.3 G/DL (32.0-36.0) L Red Cell Distribution Width 21.2 % (11.6-14.8) H Platelet Count 133 K/UL (150-450) L Mean Platelet Volume 7.0 FL (6.5-10.1) Neutrophils (%) (Auto) 70.0 % (45.0-75.0) Lymphocytes (%) (Auto) 14.3 % (20.0-45.0) L Monocytes (%) (Auto) 12.4 % (1.0-10.0) H Eosinophils (%) (Auto) 1.4 % (0.0-3.0) Basophils (%) (Auto) 1.9 % (0.0-2.0) Sodium Level 142 MMOL/L (136-145) Potassium Level 4.0 MMOL/L (3.5-5.1) Chloride Level 110 MMOL/L (98-107) H Carbon Dioxide Level 20 MMOL/L (21-32) L Anion Gap 12 mmol/L (5-15) Blood Urea Nitrogen 18 mg/dL (7-18) Creatinine 1.2 MG/DL (0.55-1.30) Estimat Glomerular Filtration Rate > 60 mL/min (>60) Glucose Level 92 MG/DL (74-106) Calcium Level 8.2 MG/DL (8.5-10.1) L Test 01/25/20 05:45 POC Whole Blood Glucose Pending Current Medications Medications (Trade) Dose Ordered Sig/Jesse Route PRN Reason Start Time Stop Time Status Last Admin Dose Admin Acetaminophen (Tylenol) 650 mg Q4H PRN ORAL PRNH/TEMP 01/05/20 20:15 02/04/20 20:14 01/12/20 03:10 Bisacodyl (Dulcolax) 10 mg DAILY PRN RECTAL Constipation 01/05/20 20:15 04/04/20 20:14 Chlorhexidine Gluconate (Navya-Hex 2%) 1 applic DAILY@2000 TOPIC 01/11/20 20:00 04/10/20 19:59 01/24/20 21:06 Dextrose (Dextrose 50%) 25 ml Q30M PRN IV Hypoglycemia 01/05/20 20:15 04/04/20 20:14 01/24/20 23:53 Dextrose (Dextrose 50%) 50 ml Q30M PRN IV Hypoglycemia 01/05/20 20:15 04/04/20 20:14 Dextrose/Sodium Chloride 1,000 ml @ 60 mls/hr [id number] IV 01/24/20 13:30 02/23/20 13:29 01/25/20 05:47 Linaclotide (Linzess) 290 mcg BEFORE BREAKFAST ORAL 01/10/20 06:30 04/09/20 06:29 01/23/20 05:34 Metoclopramide HCl (Reglan) 10 mg EVERY 6 HOURS NG 01/19/20 12:00 02/18/20 11:59 01/25/20 05:47 Metoclopramide HCl (Reglan) 10 mg Q6H PRN IVP Nausea & Vomiting 01/16/20 13:00 02/15/20 12:59 Midodrine (Pro-Amatine) 10 mg Q8HR NG 01/20/20 22:00 04/13/20 17:59 01/23/20 05:33 Ondansetron HCl (Zofran) 4 mg Q6H PRN IVP Nausea & Vomiting 01/10/20 06:30 02/09/20 06:29 Pantoprazole (Protonix) 40 mg EVERY 12 HOURS IVP 01/20/20 21:00 02/19/20 20:59 01/24/20 21:06 Polyethylene Glycol (Miralax) 17 gm BEDTIME NG 01/11/20 21:00 02/08/20 20:59 01/20/20 20:22 Sennosides (Senokot) 8.6 mg QHS NG 01/11/20 21:00 02/04/20 20:59 01/22/20 20:06 Vitamin D (Vitamin D) 3,000 intlu DAILY GT 01/19/20 12:00 02/18/20 11:59 01/24/20 09:15 Nayana Ochoa M.D. Jan 25, 2020 08:01
[2020-01-25] MEDS: Pantoprazole Inj IVP SCH ×2 (08:04→20:22)
[2020-01-25] MEDS: Vitamin D 1000 IU Tab GT SCH (08:04)
--- NOTE | 2020-01-25 09:08 | General Progress Note ---
Subjective Constitutional: Reports: weakness Allergies: Coded Allergies: No Known Allergies (Unverified , 03/18/19) All Systems: reviewed and negative except above Subjective o2 mask ng in icu Objective Last 24 Hour Vital Signs Date Time Temp Pulse Resp B/P (MAP) Pulse Ox O2 Delivery O2 Flow Rate FiO2 01/25/20 07:00 95 14 89/62 (71) 100 01/25/20 06:00 96 14 138/80 (99) 100 01/25/20 05:00 94 14 121/78 (92) 100 01/25/20 04:00 97.7 98 14 110/75 (87) 100 01/25/20 04:00 30 01/25/20 04:00 Venturi Mask 4.0 01/25/20 03:02 99 01/25/20 03:00 96 15 117/77 (90) 100 01/25/20 02:00 109 16 135/77 (96) 100 01/25/20 01:00 96 15 122/77 (92) 100 01/25/20 00:00 98.4 95 14 123/69 (87) 100 01/25/20 00:00 Venturi Mask 4.0 01/25/20 00:00 30 01/24/20 23:13 89 01/24/20 23:00 89 15 125/73 (90) 01/24/20 22:00 89 23 114/65 (81) 100 01/24/20 21:00 92 17 123/71 (88) 97 01/24/20 20:00 90 01/24/20 20:00 Venturi Mask 4.0 01/24/20 20:00 98.4 90 17 116/62 (80) 97 01/24/20 20:00 30 01/24/20 19:30 96 Venturi Mask 10.0 40 01/24/20 19:00 92 17 119/63 (81) 96 01/24/20 18:00 92 23 106/64 (78) 100 01/24/20 17:00 93 15 118/66 (83) 100 01/24/20 16:15 40 01/24/20 16:00 76 17 111/63 (79) 100 01/24/20 16:00 Venturi Mask 6.0 01/24/20 16:00 87 01/24/20 16:00 97.4 01/24/20 15:00 90 16 108/71 (83) 100 01/24/20 14:00 75 18 109/64 (79) 99 01/24/20 13:00 86 16 120/59 (79) 100 01/24/20 12:00 92 17 109/68 (82) 100 01/24/20 12:00 98.7 01/24/20 12:00 Venturi Mask 6.0 01/24/20 12:00 40 01/24/20 12:00 82 01/24/20 11:00 87 22 102/60 (74) 100 01/24/20 10:00 84 16 118/64 (82) 100 Intake and Output 01/24/20 01/25/20 19:00 07:00 Intake Total 314 ml 650 ml Output Total 1525 ml 1100 ml Balance -1211 ml -450 ml Free Water 50 ml IV Total 314 ml 600 ml Tube Feeding 0 ml Output Urine Total 1425 ml 950 ml Stool Total 100 ml Chest Tube Drainage Total 150 ml Laboratory Tests 01/24/20 10:45: Arterial Blood pH 7.459H, Arterial Blood Partial Pressure CO2 23.1*L, Arterial Blood Partial Pressure O2 127.3H, Arterial Blood HCO3 16.0*L, Arterial Blood Oxygen Saturation 98.2, Arterial Blood Base Excess -6.5L, Asael Test Positive 01/24/20 23:21: POC Whole Blood Glucose [Pending] 01/25/20 01:56: POC Whole Blood Glucose [Pending] 01/25/20 04:00: White Blood Count 4.1L, Red Blood Count 3.72L, Hemoglobin 10.6L, Hematocrit 34.8L, Mean Corpuscular Volume 93, Mean Corpuscular Hemoglobin 28.4, Mean Corpuscular Hemoglobin Concent 30.3L, Red Cell Distribution Width 21.2H, Platelet Count 133L, Mean Platelet Volume 7.0, Neutrophils (%) (Auto) 70.0, Lymphocytes (%) (Auto) 14.3L, Monocytes (%) (Auto) 12.4H, Eosinophils (%) (Auto) 1.4, Basophils (%) (Auto) 1.9, Sodium Level 142, Potassium Level 4.0, Chloride Level 110H, Carbon Dioxide Level 20L, Anion Gap 12, Blood Urea Nitrogen 18, Creatinine 1.2, Estimat Glomerular Filtration Rate > 60, Glucose Level 92, Calc ium Level 8.2L 01/25/20 05:45: POC Whole Blood Glucose [Pending] Height (Feet): 6 Height (Inches): 0.00 Weight (Pounds): 150 General Appearance: lethargic EENT: normal ENT inspection Neck: normal alignment Cardiovascular: normal peripheral pulses, normal rate, regular rhythm Respiratory/Chest: chest wall non-tender, lungs clear, normal breath sounds Abdomen: normal bowel sounds, non tender, soft Extremities: normal inspection Edema: no edema noted Arm (L), no edema noted Arm (R), no edema noted Leg (L), no edema noted Leg (R), no edema noted Pedal (L), no edema noted Pedal (R), no edema noted Generalized Neurologic: motor weakness Skin: normal pigmentation, warm/dry Assessment/Plan Problem List: (1) Anemia ICD Codes: D64.9 - Anemia, unspecified SNOMED: 638468557 (2) Paraplegia ICD Codes: G82.20 - Paraplegia, unspecified SNOMED: 91374909 (3) Diabetes ICD Codes: E11.9 - Type 2 diabetes mellitus without complications SNOMED: 88620192 (4) Weak ICD Codes: R53.1 - Weakness SNOMED: 01099041 (5) HTN (hypertension) ICD Codes: I10 - Essential (primary) hypertension SNOMED: 21667797 (6) ARF (acute renal failure) ICD Codes: N17.9 - Acute kidney failure, unspecified SNOMED: 53702665 (7) Altered level of consciousness ICD Codes: R40.4 - Transient alteration of awareness SNOMED: 5069466 (8) Dehydration ICD Codes: E86.0 - Dehydration SNOMED: 45518672 (9) Hypernatremia ICD Codes: E87.0 - Hyperosmolality and hypernatremia SNOMED: 120809180 Status: unchanged Assessment/Plan: 02 pulm tx abx cbc bmp am Farrukh Ríos DO Jan 25, 2020 09:08
[2020-01-25] MEDS ORDERED: D5 1/2NS 1000ml IV ONE (09:34)
--- NOTE | 2020-01-25 10:04 | Hematology/Onc Progress Note ---
Assessment/Plan Assessment/Plan Assessment/Recs # Metastatic prostate cancer -- w psa 2741, has a Large pelvic mass as described involving the prostate, bladder, seminal vesicles, presumably representing prostatic malignancy --> CT Evidence of disseminated malignancy, with extensive lymphadenopathy of and evidenc of diffuse osseous metastases Severe right and moderate left hydronephrosis and bilateral hydroureter, due to ureteral obstruction by the above mass --> tumor markers ordered, psa 2741 --> after above reviewed, consider further biopsy of prostate with uro as needed # Pancytopenia with initially Anemia due to underlying chronic medical issues, multifactorial v Gi bleed v malignancy --> Anemia workup has been ordered, rule out gi bleed --> No evidence of hemolysis is noted, peripheral smear has been reviewed. --> Hgb goal >7. Transfuse prn. --> Epogen or iron at this time is not particularly indicated --> Medications have been reviewed --> low threshold for gi evaluation in case has occult + --> hgb 10-->9.7-->9.2->10-->8.6-->7.7-->5-->8.3->9.3->7.8-->8.2-->8.1-->9.3-->9.9 --> 11/8 flow cytometry ordered bc of nucleated cells on smear-->neg --> wbc 5-->4-->3.9 --> plt 150-->98-->82-->51->49-->46-->50-->68-->88-->109 --> hep and hiv panel--NEG --> us abd-->shows 3 small lesions, requires further eval --> CT a/p reviewed # Multiple lesions noted in pancreas --> MRI abd ordered--> nondiagnostic --> CT of the abd reviewed # Protein caloric malnutrition --> daily calorie counts --> daily weights --> mirtazapine started # Acute renal failure --> continue on ivfs --> as per renal # Hypokalemia --> replete with K # Severe dehydration --> ivfs ongoing # Hypernatremia indicative of severe water deficit # Severe hyperuricemia, partly due to dehydration and renal failure # Acute metabolic and toxic encephalopathy # Mild, malnutrition # Psych issues per psych # Lactic acid, possible sepsis # Dvt ppx heparin sq->Scds The timing of this note does not necessarily reflect the time of the patient was seen. Greatly appreciate consultation. Subjective Constitutional: Denies: no symptoms, chills, fever, malaise, weakness, other HEENT: Denies: no symptoms, eye pain, blurred vision, tearing, double vision, ear pain, ear discharge, nose pain, nose congestion, throat pain, throat swelling, mouth pain, mouth swelling, other Gastrointestinal/Abdominal: Denies: no symptoms, abdomen distended, abdominal pain, black stools, tarry stools, blood in stool, constipated, diarrhea, difficulty swallowing, nausea, poor appetite, poor fluid intake, rectal bleeding, vomiting, other Genitourinary: Denies: no symptoms, burning, discharge, frequency, flank pain, hematuria, incontinence, pain, urgency, other Neurologic/Psychiatric: Denies: no symptoms, anxiety, depressed, emotional problems, headache, numbness, paresthesia, pre-existing deficit, seizure, tingling, tremors, weakness, other Endocrine: Denies: no symptoms, excessive sweating, flushing, intolerance to cold, intolerance to heat, increased hunger, increased thirst, increased urine, unexplained weight gain, unexplained weight loss, other Hematologic/Lymphatic: Denies: no symptoms, anemia, easy bleeding, easy bruising, adenopathy, other Allergies: Coded Allergies: No Known Allergies (Unverified , 03/18/19) Subjective 01/07 meds noted, no bleeding, hgb 10, no hemolysis, hgb 10.1 01/08 labs reviewed, dw rn, no major events, no bleeding, hgb lower 01/09 labs noted, no bleeding, vi rn, no major changes, plt lower 01/10 did have epistaxis overnight, no bleeding, night sweats, epistaxis better 01/12 icu, remains on vent, levo, no bleeding, meds noted 01/13 remains in icu, no bleeding, on levo, no major changes 01/14 icu, is on 1l, restarints are off, no bleeding, no night sweats 01/15 icu, meds noted, with diarrhea, rectal tube reinserted, on nc 01/16 out of icu, no bleeding, meds reviewed, cbc ad bmp pending 01/17 unable to lay still for the mri, thus ct ordered, vi rn 01/19 hgb 6.9, no bleeding, no hemolysis, ct reviewed 01/20 obtunded, meds reviewed, hgb is better, in icu 01/21 obtunded, npo, labs hjave been reviewed, hgb 9.2 01/22 obtunded, in icu, no bleeding, plt 109 01/23 obtunded still icu, on venturimask, meds reviewed, labs noted 01/24 obtunded, in icu, labs reviewed, meds noted, wbc 4.1, plt 133 Objective Objective Current Medications Medications (Trade) Dose Ordered Sig/Jesse Route PRN Reason Start Time Stop Time Status Last Admin Dose Admin Acetaminophen (Tylenol) 650 mg Q4H PRN ORAL PRNH/TEMP 01/05/20 20:15 02/04/20 20:14 01/12/20 03:10 Bisacodyl (Dulcolax) 10 mg DAILY PRN RECTAL Constipation 01/05/20 20:15 04/04/20 20:14 Chlorhexidine Gluconate (Navya-Hex 2%) 1 applic DAILY@2000 TOPIC 01/11/20 20:00 04/10/20 19:59 01/24/20 21:06 Dextrose (Dextrose 50%) 25 ml Q30M PRN IV Hypoglycemia 01/05/20 20:15 04/04/20 20:14 01/24/20 23:53 Dextrose (Dextrose 50%) 50 ml Q30M PRN IV Hypoglycemia 01/05/20 20:15 04/04/20 20:14 Dextrose/Sodium Chloride 1,000 ml @ 60 mls/hr [id number] IV 01/24/20 13:30 02/23/20 13:29 01/25/20 05:47 Linaclotide (Linzess) 290 mcg BEFORE BREAKFAST ORAL 01/10/20 06:30 04/09/20 06:29 01/23/20 05:34 Metoclopramide HCl (Reglan) 10 mg EVERY 6 HOURS NG 01/19/20 12:00 02/18/20 11:59 01/25/20 05:47 Metoclopramide HCl (Reglan) 10 mg Q6H PRN IVP Nausea & Vomiting 01/16/20 13:00 02/15/20 12:59 Midodrine (Pro-Amatine) 10 mg Q8HR NG 01/20/20 22:00 04/13/20 17:59 01/23/20 05:33 Ondansetron HCl (Zofran) 4 mg Q6H PRN IVP Nausea & Vomiting 01/10/20 06:30 02/09/20 06:29 Pantoprazole (Protonix) 40 mg EVERY 12 HOURS IVP 01/20/20 21:00 02/19/20 20:59 01/25/20 08:04 Polyethylene Glycol (Miralax) 17 gm BEDTIME NG 01/11/20 21:00 02/08/20 20:59 01/20/20 20:22 Sennosides (Senokot) 8.6 mg QHS NG 01/11/20 21:00 02/04/20 20:59 01/22/20 20:06 Vitamin D (Vitamin D) 3,000 intlu DAILY GT 01/19/20 12:00 02/18/20 11:59 01/24/20 09:15 Last 24 Hour Vital Signs Date Time Temp Pulse Resp B/P (MAP) Pulse Ox O2 Delivery O2 Flow Rate FiO2 01/25/20 09:00 94 17 101/69 (80) 100 01/25/20 08:00 3.0 24 01/25/20 08:00 97.9 92 15 107/64 (78) 100 01/25/20 08:00 Venturi Mask 3.0 01/25/20 07:30 95 18 100 Venturi Mask 3.0 28 01/25/20 07:28 100 Venturi Mask 3.0 28 01/25/20 07:00 95 14 89/62 (71) 100 01/25/20 06:00 96 14 138/80 (99) 100 01/25/20 05:00 94 14 121/78 (92) 100 01/25/20 04:00 97.7 98 14 110/75 (87) 100 01/25/20 04:00 30 01/25/20 04:00 Venturi Mask 4.0 01/25/20 03:02 99 01/25/20 03:00 96 15 117/77 (90) 100 01/25/20 02:00 109 16 135/77 (96) 100 01/25/20 01:00 96 15 122/77 (92) 100 01/25/20 00:00 98.4 95 14 123/69 (87) 100 01/25/20 00:00 Venturi Mask 4.0 01/25/20 00:00 30 01/24/20 23:13 89 01/24/20 23:00 89 15 125/73 (90) 01/24/20 22:00 89 23 114/65 (81) 100 01/24/20 21:00 92 17 123/71 (88) 97 01/24/20 20:00 90 01/24/20 20:00 Venturi Mask 4.0 01/24/20 20:00 98.4 90 17 116/62 (80) 97 01/24/20 20:00 30 01/24/20 19:30 96 Venturi Mask 10.0 40 01/24/20 19:00 92 17 119/63 (81) 96 01/24/20 18:00 92 23 106/64 (78) 100 01/24/20 17:00 93 15 118/66 (83) 100 01/24/20 16:15 40 01/24/20 16:00 76 17 111/63 (79) 100 01/24/20 16:00 Venturi Mask 6.0 01/24/20 16:00 87 01/24/20 16:00 97.4 01/24/20 15:00 90 16 108/71 (83) 100 01/24/20 14:00 75 18 109/64 (79) 99 01/24/20 13:00 86 16 120/59 (79) 100 01/24/20 12:00 92 17 109/68 (82) 100 01/24/20 12:00 98.7 01/24/20 12:00 Venturi Mask 6.0 01/24/20 12:00 40 01/24/20 12:00 82 01/24/20 11:00 87 22 102/60 (74) 100 01/24/20 10:00 84 16 118/64 (82) 100 01/24/20 09:00 90 15 116/70 (85) 100 01/24/20 08:00 6.0 01/24/20 08:00 98.4 91 17 106/68 (81) 100 01/24/20 08:00 Venturi Mask 6.0 01/24/20 07:41 86 01/24/20 07:00 87 16 118/69 (85) 100 01/24/20 06:40 100 Venturi Mask 10.0 40 01/24/20 06:00 92 17 116/64 (81) 100 01/24/20 05:00 81 16 94/75 (81) 100 01/24/20 04:00 Nasal Cannula 2.0 01/24/20 04:00 89 17 116/71 (86) 100 01/24/20 04:00 2.0 01/24/20 04:00 98.2 89 17 116/71 (86) 100 01/24/20 03:14 86 01/24/20 03:00 89 21 129/67 (87) 99 01/24/20 02:00 90 20 120/70 (87) 99 01/24/20 01:00 89 19 125/66 (85) 99 01/24/20 00:00 98.4 89 18 137/75 (95) 100 01/24/20 00:00 2.0 01/24/20 00:00 Nasal Cannula 2.0 01/23/20 23:28 93 01/23/20 23:00 89 16 116/64 (81) 100 01/23/20 22:00 82 15 111/61 (78) 01/23/20 21:00 86 15 124/75 (91) 100 01/23/20 20:00 2.0 01/23/20 20:00 Nasal Cannula 2.0 01/23/20 20:00 98.9 102 19 136/75 (95) 99 01/23/20 19:58 109 01/23/20 19:01 100 Nasal Cannula 2.0 28 01/23/20 19:00 86 15 127/75 (92) 100 01/23/20 18:00 81 16 124/70 (88) 100 01/23/20 17:00 87 20 118/64 (82) 95 01/23/20 16:00 2.0 01/23/20 16:00 Nasal Cannula 2.0 01/23/20 16:00 97.7 82 18 126/65 (85) 98 01/23/20 16:00 78 01/23/20 15:00 77 17 116/73 (87) 100 01/23/20 14:00 77 17 129/67 (87) 100 01/23/20 13:00 81 17 115/63 (80) 98 01/23/20 12:00 98.5 82 17 116/72 (87) 100 01/23/20 11:20 80 01/23/20 11:15 2.0 01/23/20 11:15 Nasal Cannula 2.0 01/23/20 11:15 100 01/23/20 11:15 Nasal Cannula 2.0 28 01/23/20 11:15 100 Nasal Cannula 2.0 28 01/23/20 11:00 81 17 102/62 (75) 100 Intake and Output 01/24/20 01/25/20 19:00 07:00 Intake Total 314 ml 710 ml Output Total 1525 ml 1100 ml Balance -1211 ml -390 ml Free Water 50 ml IV Total 314 ml 660 ml Tube Feeding 0 ml Output Urine Total 1425 ml 950 ml Stool Total 100 ml Chest Tube Drainage Total 150 ml Labs Test 01/22/20 14:37 01/22/20 18:27 01/22/20 23:08 01/23/20 04:00 POC Whole Blood Glucose 79 MG/DL (74-106) 90 MG/DL (74-106) White Blood Count 5.0 K/UL (4.8-10.8) Red Blood Count 3.21 M/UL (4.70-6.10) Hemoglobin 9.3 G/DL (14.2-18.0) Hematocrit 29.2 % (42.0-52.0) Mean Corpuscular Volume 91 FL (80-99) Mean Corpuscular Hemoglobin 28.9 PG (27.0-31.0) Mean Corpuscular Hemoglobin Concent 31.7 G/DL (32.0-36.0) Red Cell Distribution Width 20.5 % (11.6-14.8) Platelet Count 109 K/UL (150-450) Mean Platelet Volume 6.9 FL (6.5-10.1) Neutrophils (%) (Auto) 79.6 % (45.0-75.0) Lymphocytes (%) (Auto) 8.7 % (20.0-45.0) Monocytes (%) (Auto) 9.5 % (1.0-10.0) Eosinophils (%) (Auto) 1.1 % (0.0-3.0) Basophils (%) (Auto) 1.1 % (0.0-2.0) Sodium Level 141 MMOL/L (136-145) Potassium Level 3.7 MMOL/L (3.5-5.1) Chloride Level 109 MMOL/L (98-107) Carbon Dioxide Level 21 MMOL/L (21-32) Anion Gap 11 mmol/L (5-15) Blood Urea Nitrogen 27 mg/dL (7-18) Creatinine 1.5 MG/DL (0.55-1.30) Estimat Glomerular Filtration Rate 55.9 mL/min (>60) Glucose Level 105 MG/DL (74-106) Calcium Level 7.4 MG/DL (8.5-10.1) Test 01/23/20 05:35 01/23/20 07:51 01/23/20 10:46 01/23/20 13:02 POC Whole Blood Glucose 108 MG/DL (74-106) 86 MG/DL (74-106) Arterial Blood pH 7.480 (7.350-7.450) 7.435 (7.350-7.450) Arterial Blood Partial Pressure CO2 25.5 mmHg (35.0-45.0) 28.5 mmHg (35.0-45.0) Arterial Blood Partial Pressure O2 146.0 mmHg (75.0-100.0) 102.3 mmHg (75.0-100.0) Arterial Blood HCO3 18.6 mmol/L (22.0-26.0) 18.7 mmol/L (22.0-26.0) Arterial Blood Oxygen Saturation 98.3 % (95-100) 97.3 % (95-100) Arterial Blood Base Excess -3.9 (-2-2) -4.6 (-2-2) Asael Test Positive Positive Test 01/23/20 20:57 01/24/20 04:00 01/24/20 05:41 01/24/20 10:45 Arterial Blood pH 7.472 (7.350-7.450) 7.459 (7.350-7.450) Arterial Blood Partial Pressure CO2 22.3 mmHg (35.0-45.0) 23.1 mmHg (35.0-45.0) Arterial Blood Partial Pressure O2 102.4 mmHg (75.0-100.0) 127.3 mmHg (75.0-100.0) Arterial Blood HCO3 15.9 mmol/L (22.0-26.0) 16.0 mmol/L (22.0-26.0) Arterial Blood Oxygen Saturation 97.3 % (95-100) 98.2 % (95-100) Arterial Blood Base Excess -6.2 (-2-2) -6.5 (-2-2) Asael Test Positive Positive White Blood Count 4.6 K/UL (4.8-10.8) Red Blood Count 3.46 M/UL (4.70-6.10) Hemoglobin 9.9 G/DL (14.2-18.0) Hematocrit 31.9 % (42.0-52.0) Mean Corpuscular Volume 92 FL (80-99) Mean Corpuscular Hemoglobin 28.7 PG (27.0-31.0) Mean Corpuscular Hemoglobin Concent 31.1 G/DL (32.0-36.0) Red Cell Distribution Width 21.4 % (11.6-14.8) Platelet Count 122 K/UL (150-450) Mean Platelet Volume 7.0 FL (6.5-10.1) Neutrophils (%) (Auto) 74.1 % (45.0-75.0) Lymphocytes (%) (Auto) 13.8 % (20.0-45.0) Monocytes (%) (Auto) 10.0 % (1.0-10.0) Eosinophils (%) (Auto) 1.4 % (0.0-3.0) Basophils (%) (Auto) 0.8 % (0.0-2.0) Sodium Level 143 MMOL/L (136-145) Potassium Level 3.9 MMOL/L (3.5-5.1) Chloride Level 112 MMOL/L (98-107) Carbon Dioxide Level 20 MMOL/L (21-32) Anion Gap 11 mmol/L (5-15) Blood Urea Nitrogen 25 mg/dL (7-18) Creatinine 1.3 MG/DL (0.55-1.30) Estimat Glomerular Filtration Rate > 60 mL/min (>60) Glucose Level 81 MG/DL (74-106) Uric Acid 5.1 MG/DL (2.6-7.2) Calcium Level 7.8 MG/DL (8.5-10.1) Phosphorus Level 2.6 MG/DL (2.5-4.9) Magnesium Level 1.7 MG/DL (1.8-2.4) Total Bilirubin 0.4 MG/DL (0.2-1.0) Direct Bilirubin 0.1 MG/DL (0.0-0.3) Aspartate Amino Transf (AST/SGOT) 47 U/L (15-37) Alanine Aminotransferase (ALT/SGPT) 32 U/L (12-78) Alkaline Phosphatase 154 U/L (46-116) Total Protein 5.9 G/DL (6.4-8.2) Albumin 2.3 G/DL (3.4-5.0) Test 01/24/20 23:21 01/25/20 01:56 01/25/20 04:00 01/25/20 05:45 White Blood Count 4.1 K/UL (4.8-10.8) Red Blood Count 3.72 M/UL (4.70-6.10) Hemoglobin 10.6 G/DL (14.2-18.0) Hematocrit 34.8 % (42.0-52.0) Mean Corpuscular Volume 93 FL (80-99) Mean Corpuscular Hemoglobin 28.4 PG (27.0-31.0) Mean Corpuscular Hemoglobin Concent 30.3 G/DL (32.0-36.0) Red Cell Distribution Width 21.2 % (11.6-14.8) Platelet Count 133 K/UL (150-450) Mean Platelet Volume 7.0 FL (6.5-10.1) Neutrophils (%) (Auto) 70.0 % (45.0-75.0) Lymphocytes (%) (Auto) 14.3 % (20.0-45.0) Monocytes (%) (Auto) 12.4 % (1.0-10.0) Eosinophils (%) (Auto) 1.4 % (0.0-3.0) Basophils (%) (Auto) 1.9 % (0.0-2.0) Sodium Level 142 MMOL/L (136-145) Potassium Level 4.0 MMOL/L (3.5-5.1) Chloride Level 110 MMOL/L (98-107) Carbon Dioxide Level 20 MMOL/L (21-32) Anion Gap 12 mmol/L (5-15) Blood Urea Nitrogen 18 mg/dL (7-18) Creatinine 1.2 MG/DL (0.55-1.30) Estimat Glomerular Filtration Rate > 60 mL/min (>60) Glucose Level 92 MG/DL (74-106) Calcium Level 8.2 MG/DL (8.5-10.1) Height (Feet): 6 Height (Inches): 0.00 Weight (Pounds): 150 Objective PE: Vitals: reviewed General Appearance: NAD HEENT: normocephalic, atraumatic Neck: non-tender, normal alignment Respiratory/Chest: nromal breath sounds bilaterally Cardiovascular/Chest: normal peripheral pulses, normal rate Abdomen: normal bowel sounds, soft, nontender Extremities: normal range of motion Samuel Son MD Jan 25, 2020 10:04
--- NOTE | 2020-01-25 11:36 | General Progress Note ---
Subjective ROS Limited/Unobtainable: No Allergies: Coded Allergies: No Known Allergies (Unverified , 03/18/19) Objective Last 24 Hour Vital Signs Date Time Temp Pulse Resp B/P (MAP) Pulse Ox O2 Delivery O2 Flow Rate FiO2 01/25/20 11:00 88 16 124/73 (90) 100 01/25/20 10:00 93 16 107/70 (82) 100 01/25/20 09:00 94 17 101/69 (80) 100 01/25/20 08:00 2.0 24 01/25/20 08:00 97.9 92 15 107/64 (78) 100 01/25/20 08:00 Venturi Mask 2.0 01/25/20 07:30 95 18 100 Venturi Mask 3.0 28 01/25/20 07:28 100 Venturi Mask 2.0 24 01/25/20 07:00 95 14 89/62 (71) 100 01/25/20 06:00 96 14 138/80 (99) 100 01/25/20 05:00 94 14 121/78 (92) 100 01/25/20 04:00 97.7 98 14 110/75 (87) 100 01/25/20 04:00 30 01/25/20 04:00 Venturi Mask 4.0 01/25/20 03:02 99 01/25/20 03:00 96 15 117/77 (90) 100 01/25/20 02:00 109 16 135/77 (96) 100 01/25/20 01:00 96 15 122/77 (92) 100 01/25/20 00:00 98.4 95 14 123/69 (87) 100 01/25/20 00:00 Venturi Mask 4.0 01/25/20 00:00 30 01/24/20 23:13 89 01/24/20 23:00 89 15 125/73 (90) 01/24/20 22:00 89 23 114/65 (81) 100 01/24/20 21:00 92 17 123/71 (88) 97 01/24/20 20:00 90 01/24/20 20:00 Venturi Mask 4.0 01/24/20 20:00 98.4 90 17 116/62 (80) 97 01/24/20 20:00 30 01/24/20 19:30 96 Venturi Mask 10.0 40 01/24/20 19:00 92 17 119/63 (81) 96 01/24/20 18:00 92 23 106/64 (78) 100 01/24/20 17:00 93 15 118/66 (83) 100 01/24/20 16:15 40 01/24/20 16:00 76 17 111/63 (79) 100 01/24/20 16:00 Venturi Mask 6.0 01/24/20 16:00 87 01/24/20 16:00 97.4 01/24/20 15:00 90 16 108/71 (83) 100 01/24/20 14:00 75 18 109/64 (79) 99 01/24/20 13:00 86 16 120/59 (79) 100 01/24/20 12:00 92 17 109/68 (82) 100 01/24/20 12:00 98.7 01/24/20 12:00 Venturi Mask 6.0 01/24/20 12:00 40 01/24/20 12:00 82 Intake and Output 01/24/20 01/25/20 19:00 07:00 Intake Total 314 ml 710 ml Output Total 1525 ml 1100 ml Balance -1211 ml -390 ml Free Water 50 ml IV Total 314 ml 660 ml Tube Feeding 0 ml Output Urine Total 1425 ml 950 ml Stool Total 100 ml Chest Tube Drainage Total 150 ml Laboratory Tests 01/24/20 23:21: POC Whole Blood Glucose [Pending] 01/25/20 01:56: POC Whole Blood Glucose [Pending] 01/25/20 04:00: White Blood Count 4.1L, Red Blood Count 3.72L, Hemoglobin 10.6L, Hematocrit 34.8L, Mean Corpuscular Volume 93, Mean Corpuscular Hemoglobin 28.4, Mean Corpuscular Hemoglobin Concent 30.3L, Red Cell Distribution Width 21.2H, Platelet Count 133L, Mean Platelet Volume 7.0, Neutrophils (%) (Auto) 70.0, Lymphocytes (%) (Auto) 14.3L, Monocytes (%) (Auto) 12.4H, Eosinophils (%) (Auto) 1.4, Basophils (%) (Auto) 1.9, Sodium Level 142, Potassium Level 4.0, Chloride Level 110H, Carbon Dioxide Level 20L, Anion Gap 12, Blood Urea Nitrogen 18, Creatinine 1.2, Estimat Glomerular Filtration Rate > 60, Glucose Level 92, Calcium Level 8.2L 01/25/20 05:45: POC Whole Blood Glucose [Pending] Height (Feet): 6 Height (Inches): 0.00 Weight (Pounds): 150 General Appearance: lethargic EENT: normal ENT inspection Neck: supple Cardiovascular: normal rate Respiratory/Chest: decreased breath sounds Abdomen: normal bowel sounds, non tender, soft Extremities: non-tender Assessment/Plan Status: unchanged Assessment/Plan: AMS dementia Anemia DM hyper CA elevated AST low albumin COPD RI HTN metastatic prostate CA NGTF post blood transfusion poor prognosis PEG plans canceled by anesthesia today given respiratory distress plan PEG next week if stable Paulino Bueno MD Jan 25, 2020 11:36
--- NOTE | 2020-01-25 11:44 | Pulmonology Progress Note ---
Subjective ROS Limited/Unobtainable: No Interval Events: Now on 2L/min O2 Constitutional: Reports: no symptoms HEENT: Repors: no symptoms Respiratory: Reports: no symptoms Cardiovascular: Reports: no symptoms Gastrointestinal/Abdominal: Reports: no symptoms Genitourinary: Reports: no symptoms Allergies: Coded Allergies: No Known Allergies (Unverified , 03/18/19) All Systems: reviewed and negative except above Objective Last 24 Hour Vital Signs Date Time Temp Pulse Resp B/P (MAP) Pulse Ox O2 Delivery O2 Flow Rate FiO2 01/25/20 11:00 88 16 124/73 (90) 100 01/25/20 10:00 93 16 107/70 (82) 100 01/25/20 09:00 94 17 101/69 (80) 100 01/25/20 08:00 2.0 24 01/25/20 08:00 97.9 92 15 107/64 (78) 100 01/25/20 08:00 Venturi Mask 2.0 01/25/20 07:30 95 18 100 Venturi Mask 3.0 28 01/25/20 07:28 100 Venturi Mask 2.0 24 01/25/20 07:00 95 14 89/62 (71) 100 01/25/20 06:00 96 14 138/80 (99) 100 01/25/20 05:00 94 14 121/78 (92) 100 01/25/20 04:00 97.7 98 14 110/75 (87) 100 01/25/20 04:00 30 01/25/20 04:00 Venturi Mask 4.0 01/25/20 03:02 99 01/25/20 03:00 96 15 117/77 (90) 100 01/25/20 02:00 109 16 135/77 (96) 100 01/25/20 01:00 96 15 122/77 (92) 100 01/25/20 00:00 98.4 95 14 123/69 (87) 100 01/25/20 00:00 Venturi Mask 4.0 01/25/20 00:00 30 01/24/20 23:13 89 01/24/20 23:00 89 15 125/73 (90) 01/24/20 22:00 89 23 114/65 (81) 100 01/24/20 21:00 92 17 123/71 (88) 97 01/24/20 20:00 90 01/24/20 20:00 Venturi Mask 4.0 01/24/20 20:00 98.4 90 17 116/62 (80) 97 01/24/20 20:00 30 01/24/20 19:30 96 Venturi Mask 10.0 40 01/24/20 19:00 92 17 119/63 (81) 96 01/24/20 18:00 92 23 106/64 (78) 100 01/24/20 17:00 93 15 118/66 (83) 100 01/24/20 16:15 40 01/24/20 16:00 76 17 111/63 (79) 100 01/24/20 16:00 Venturi Mask 6.0 01/24/20 16:00 87 01/24/20 16:00 97.4 01/24/20 15:00 90 16 108/71 (83) 100 01/24/20 14:00 75 18 109/64 (79) 99 01/24/20 13:00 86 16 120/59 (79) 100 01/24/20 12:00 92 17 109/68 (82) 100 01/24/20 12:00 98.7 01/24/20 12:00 Venturi Mask 6.0 01/24/20 12:00 40 01/24/20 12:00 82 Intake and Output 01/24/20 01/25/20 19:00 07:00 Intake Total 314 ml 710 ml Output Total 1525 ml 1100 ml Balance -1211 ml -390 ml Free Water 50 ml IV Total 314 ml 660 ml Tube Feeding 0 ml Output Urine Total 1425 ml 950 ml Stool Total 100 ml Chest Tube Drainage Total 150 ml General Appearance: no acute distress HEENT: normocephalic Respiratory: chest wall non-tender, lungs clear Cardiovascular: normal peripheral pulses, normal rate Abdomen: normal bowel sounds Laboratory Tests 01/24/20 23:21: POC Whole Blood Glucose [Pending] 01/25/20 01:56: POC Whole Blood Glucose [Pending] 01/25/20 04:00: White Blood Count 4.1L, Red Blood Count 3.72L, Hemoglobin 10.6L, Hematocrit 34.8L, Mean Corpuscular Volume 93, Mean Corpuscular Hemoglobin 28.4, Mean Corpuscular Hemoglobin Concent 30.3L, Red Cell Distribution Width 21.2H, Platelet Count 133L, Mean Platelet Volume 7.0, Neutrophils (%) (Auto) 70.0, Lymphocytes (%) (Auto) 14.3L, Monocytes (%) (Auto) 12.4H, Eosinophils (%) (Auto) 1.4, Basophils (%) (Auto) 1.9, Sodium Level 142, Potassium Level 4.0, Chloride Level 110H, Carbon Dioxide Level 20L, Anion Gap 12, Blood Urea Nitrogen 18, Creatinine 1.2, Estimat Glomerular Filtration Rate > 60, Glucose Level 92, Calcium Level 8.2L 01/25/20 05:45: POC Whole Blood Glucose [Pending] Current Medications Medications (Trade) Dose Ordered Sig/Jesse Route PRN Reason Start Time Stop Time Status Last Admin Dose Admin Acetaminophen (Tylenol) 650 mg Q4H PRN ORAL PRNH/TEMP 01/05/20 20:15 02/04/20 20:14 01/12/20 03:10 Bisacodyl (Dulcolax) 10 mg DAILY PRN RECTAL Constipation 01/05/20 20:15 04/04/20 20:14 Chlorhexidine Gluconate (Navya-Hex 2%) 1 applic DAILY@2000 TOPIC 01/11/20 20:00 04/10/20 19:59 01/24/20 21:06 Dextrose (Dextrose 50%) 25 ml Q30M PRN IV Hypoglycemia 01/05/20 20:15 04/04/20 20:14 01/24/20 23:53 Dextrose (Dextrose 50%) 50 ml Q30M PRN IV Hypoglycemia 01/05/20 20:15 04/04/20 20:14 Dextrose/Sodium Chloride 1,000 ml @ 60 mls/hr [id number] IV 01/24/20 13:30 02/23/20 13:29 01/25/20 05:47 Linaclotide (Linzess) 290 mcg BEFORE BREAKFAST ORAL 01/10/20 06:30 04/09/20 06:29 01/23/20 05:34 Metoclopramide HCl (Reglan) 10 mg EVERY 6 HOURS NG 01/19/20 12:00 02/18/20 11:59 01/25/20 05:47 Metoclopramide HCl (Reglan) 10 mg Q6H PRN IVP Nausea & Vomiting 01/16/20 13:00 02/15/20 12:59 Midodrine (Pro-Amatine) 10 mg Q8HR NG 01/20/20 22:00 04/13/20 17:59 01/23/20 05:33 Ondansetron HCl (Zofran) 4 mg Q6H PRN IVP Nausea & Vomiting 01/10/20 06:30 02/09/20 06:29 Pantoprazole (Protonix) 40 mg EVERY 12 HOURS IVP 01/20/20 21:00 02/19/20 20:59 01/25/20 08:04 Polyethylene Glycol (Miralax) 17 gm BEDTIME NG 01/11/20 21:00 02/08/20 20:59 01/20/20 20:22 Sennosides (Senokot) 8.6 mg QHS NG 01/11/20 21:00 02/04/20 20:59 01/22/20 20:06 Vitamin D (Vitamin D) 3,000 intlu DAILY GT 01/19/20 12:00 02/18/20 11:59 01/24/20 09:15 Assessment/Plan Assessment/Plan IMPRESSION: 1. Severe metabolic acidosis. Corrected; now has combined respiratory and metabolic alkalosis 2. Respiratory failure; now extubated 3. Diarrhea. Resolved 4. Acute renal failure. Nephrology following; 5. Anemia; DISCUSSION: EGD and PEG scheduled Remains obtunded Saturating well on 2L/min O2 Daxa Inafnte Omar Syed MD Jan 25, 2020 11:44
--- NOTE | 2020-01-25 13:11 | Cardiac Electrophysiology PN ---
Assessment/Plan Assessment/Plan 1. Altered mental status due to severe dehydration in view of sodium of 160 and acute renal failure. On IV fluids and IV antibiotics. Ruled out for NC. 2. S/P Septic shock off Levophed and on iv Abx On Midodrine 10 tid 3. History of CVA, off Plavix in view of hematuria. 4. Respiratory failure, Extubated 01/22 5. Diabetes. 6. Acute renal failure. Cr 4.2. Had HD once only on 01/11/20. No more HD needed and Cr 1.2 7. Hematuria 8. Anemia with Hb 5.8 and coffee ground emesis. FU Dr Bueno 9. Shock liver with increase AST>2000 10. Pancreatic mass x3. CT abdomen and pelvis showed Large pelvic mass involving the prostate, bladder presumably representing prostatic malignancy 11. Dysphagia, NGT feeding. PEG today pending KARLO RN Subjective Subjective Coded 01/19 for respiratory failure followed by bradycardia and PEA. Extubated 01/23/20. Desaturated to 80s and kpt in ICU. On Venturi Mask 2 liter NC EGD/PEG pending today Objective Last 24 Hour Vital Signs Date Time Temp Pulse Resp B/P (MAP) Pulse Ox O2 Delivery O2 Flow Rate FiO2 01/25/20 12:00 2.0 24 01/25/20 12:00 Venturi Mask 2.0 01/25/20 12:00 97.9 90 18 114/72 (86) 100 01/25/20 11:00 88 16 124/73 (90) 100 01/25/20 10:00 93 16 107/70 (82) 100 01/25/20 09:00 94 17 101/69 (80) 100 01/25/20 08:00 2.0 24 01/25/20 08:00 97.9 92 15 107/64 (78) 100 01/25/20 08:00 Venturi Mask 2.0 01/25/20 07:30 95 18 100 Venturi Mask 3.0 28 01/25/20 07:28 100 Venturi Mask 2.0 24 01/25/20 07:00 95 14 89/62 (71) 100 01/25/20 06:00 96 14 138/80 (99) 100 01/25/20 05:00 94 14 121/78 (92) 100 01/25/20 04:00 97.7 98 14 110/75 (87) 100 01/25/20 04:00 30 01/25/20 04:00 Venturi Mask 4.0 01/25/20 03:02 99 01/25/20 03:00 96 15 117/77 (90) 100 01/25/20 02:00 109 16 135/77 (96) 100 01/25/20 01:00 96 15 122/77 (92) 100 01/25/20 00:00 98.4 95 14 123/69 (87) 100 01/25/20 00:00 Venturi Mask 4.0 01/25/20 00:00 30 01/24/20 23:13 89 01/24/20 23:00 89 15 125/73 (90) 01/24/20 22:00 89 23 114/65 (81) 100 01/24/20 21:00 92 17 123/71 (88) 97 01/24/20 20:00 90 01/24/20 20:00 Venturi Mask 4.0 01/24/20 20:00 98.4 90 17 116/62 (80) 97 01/24/20 20:00 30 01/24/20 19:30 96 Venturi Mask 10.0 40 01/24/20 19:00 92 17 119/63 (81) 96 01/24/20 18:00 92 23 106/64 (78) 100 01/24/20 17:00 93 15 118/66 (83) 100 01/24/20 16:15 40 01/24/20 16:00 76 17 111/63 (79) 100 01/24/20 16:00 Venturi Mask 6.0 01/24/20 16:00 87 01/24/20 16:00 97.4 01/24/20 15:00 90 16 108/71 (83) 100 01/24/20 14:00 75 18 109/64 (79) 99 Intake and Output 01/24/20 01/25/20 19:00 07:00 Intake Total 314 ml 710 ml Output Total 1525 ml 1100 ml Balance -1211 ml -390 ml Free Water 50 ml IV Total 314 ml 660 ml Tube Feeding 0 ml Output Urine Total 1425 ml 950 ml Stool Total 100 ml Chest Tube Drainage Total 150 ml Laboratory Tests Test 01/24/20 23:21 01/25/20 01:56 01/25/20 04:00 01/25/20 05:45 POC Whole Blood Glucose Pending Pending Pending White Blood Count 4.1 K/UL (4.8-10.8) L Red Blood Count 3.72 M/UL (4.70-6.10) L Hemoglobin 10.6 G/DL (14.2-18.0) L Hematocrit 34.8 % (42.0-52.0) L Mean Corpuscular Volume 93 FL (80-99) Mean Corpuscular Hemoglobin 28.4 PG (27.0-31.0) Mean Corpuscular Hemoglobin Concent 30.3 G/DL (32.0-36.0) L Red Cell Distribution Width 21.2 % (11.6-14.8) H Platelet Count 133 K/UL (150-450) L Mean Platelet Volume 7.0 FL (6.5-10.1) Neutrophils (%) (Auto) 70.0 % (45.0-75.0) Lymphocytes (%) (Auto) 14.3 % (20.0-45.0) L Monocytes (%) (Auto) 12.4 % (1.0-10.0) H Eosinophils (%) (Auto) 1.4 % (0.0-3.0) Basophils (%) (Auto) 1.9 % (0.0-2.0) Sodium Level 142 MMOL/L (136-145) Potassium Level 4.0 MMOL/L (3.5-5.1) Chloride Level 110 MMOL/L (98-107) H Carbon Dioxide Level 20 MMOL/L (21-32) L Anion Gap 12 mmol/L (5-15) Blood Urea Nitrogen 18 mg/dL (7-18) Creatinine 1.2 MG/DL (0.55-1.30) Estimat Glomerular Filtration Rate > 60 mL/min (>60) Glucose Level 92 MG/DL (74-106) Calcium Level 8.2 MG/DL (8.5-10.1) L Objective HEAD AND NECK: NGT in place LUNGS: Coarse rhonchi. CARDIOVASCULAR: Regular S1 and S2 with no gallop. ABDOMEN: Soft. EXTREMITIES: No pitting edema. Kevin Lopez MD Jan 25, 2020 13:11
--- NOTE | 2020-01-25 13:50 | Nephrology Progress Note ---
Assessment/Plan Problem List: (1) ARF (acute renal failure) (2) Hypernatremia (3) Hypovolemic shock (4) Altered level of consciousness (5) Hypercalcemia (6) Hyperuricemia (7) Pelvic mass Assessment: Prostate cancer Assessment Acute renal failure Possible underlying chronic kidney failure Severe dehydration Hypernatremia indicative of severe water deficit Severe hyperuricemia, partly due to dehydration and renal failure Acute metabolic and toxic encephalopathy Mild, malnutrition Anemia Lactic acid, possible sepsis Hypercalcemia Plan January 24: Renal parameters stable. On Venturi mask. Discussed with RN. Due for PEG insertion today. January 23: Stable from renal standpoint of view. On Venturi mask. Low magnesium addressed. Continue per consultants. January 22: Patient off pressors. Patient extubated. Labs reviewed. Renal parameters are stable. January 21: Patient on low-dose pressors. Remains hypotensive. Renal parameters stable. Weaning trial in process. Mental status remains poor. January 20: Patient in ICU. Intubated. Full code. Has advanced prostate cancer. On IV Lasix drip. Low magnesium and low phosphorus and low potassium noted and addressed. Continue per consultants. January 19: Patient in ICU. Intubated. Was coded yesterday. Labs reviewed. Medication list reviewed and adjusted. Continue per consultants. Patient full code. Prognosis poor. PSA over 2700 January 18: Labs reviewed. IV fluid discontinued. IV calcium dose decreased. Midodrine dose decreased. Reglan and Protonix changed to GT route. Vitamin D initiated. Continue to monitor renal parameters and calcium level. January 17: Labs reviewed. Abnormal electrolyte addressed. Continue per consultants. January 16: Patient now in telemetry. Labs pending. Continue to monitor renal parameters. Continue per consultants. January 15: Still in ICU. Doing well post extubation. Renal parameters improving. Not requiring any more dialysis treatment after the first dialysis treatment. Medications reviewed. Continue per consultants. January 14: Remains in ICU. Tolerating extubation. Labs reviewed. Abnormal electrolytes addressed. Serum creatinine lowering. Continue per current management. Stop Phos binders. Increase calcium IV. January 13: In ICU. Now extubated. Only dialyzed once. Urine output maintained. Serum creatinine down to 2.5. Patient has NG tube. Continue to monitor renal parameters. Continue per consultants. Abnormal electrolytes addressed. January 12: Remains in ICU. Intubated. Transfused yesterday. Abnormal electrolytes addressed. Dialyzed once January 10. Serum creatinine stable. Will adjust IV fluid. Monitor renal parameters. Dialysis as needed. Calcium gluconate IV ordered. Ionized calcium level ordered with tomorrow's labs. January 11: Patient in ICU. Intubated. On Levophed. Hemoglobin low. Due for transfusion. Electrolyte abnormalities noted and addressed. Patient was dialyzed yesterday. Will check lab tomorrow. Dialysis as needed. Discussed with SELIN Srivastava. January 10: Patient is doing poorly. Blood pressure low. ABG abnormal with metabolic acidosis. IV sodium bicarb given. Serum creatinine reno. Patient has acute renal failure. Nontunneled dialysis catheter replacement ordered.. Patient need life saving dialysis treatment SRINIVAS. January 09: Labs reviewed. IV D5 and a half with sodium bicarb initiated. Serum creatinine higher. Continue to monitor renal parameters. NG feeding was changed to Nepro. Patient remains full code. Poor prognosis. January 08: Labs reviewed. IV D5W discontinued. 500 cc 3% saline ordered. NG tube for feeding and for medications. Allopurinol dose increased. Continue to monitor renal parameters serum calcium and phosphorus. January 07: Labs reviewed. Serum calcium remains elevated. Uric acid still elevated. Will give pamidronate 60 mg IV piggyback once for hypercalcemia. Continue to monitor renal parameters. Continue D5W 150 cc an hour. Start Bicitra 30 cc p.o. every 6 hours. Add allopurinol D5W IV hydration Albumin bolus N.p.o. until able to take p.o. Antibiotics Monitor renal parameters monitor calcium, monitor uric acid Subjective ROS Limited/Unobtainable: Yes Objective Objective Last 24 Hour Vital Signs Date Time Temp Pulse Resp B/P (MAP) Pulse Ox O2 Delivery O2 Flow Rate FiO2 01/25/20 13:00 93 16 116/74 (88) 100 01/25/20 12:00 2.0 24 01/25/20 12:00 Venturi Mask 2.0 01/25/20 12:00 97.9 90 18 114/72 (86) 100 01/25/20 11:00 88 16 124/73 (90) 100 01/25/20 10:00 93 16 107/70 (82) 100 01/25/20 09:00 94 17 101/69 (80) 100 01/25/20 08:00 2.0 24 01/25/20 08:00 97.9 92 15 107/64 (78) 100 01/25/20 08:00 Venturi Mask 2.0 01/25/20 07:30 95 18 100 Venturi Mask 3.0 28 01/25/20 07:28 100 Venturi Mask 2.0 24 01/25/20 07:00 95 14 89/62 (71) 100 01/25/20 06:00 96 14 138/80 (99) 100 01/25/20 05:00 94 14 121/78 (92) 100 01/25/20 04:00 97.7 98 14 110/75 (87) 100 01/25/20 04:00 30 01/25/20 04:00 Venturi Mask 4.0 01/25/20 03:02 99 01/25/20 03:00 96 15 117/77 (90) 100 01/25/20 02:00 109 16 135/77 (96) 100 01/25/20 01:00 96 15 122/77 (92) 100 01/25/20 00:00 98.4 95 14 123/69 (87) 100 01/25/20 00:00 Venturi Mask 4.0 01/25/20 00:00 30 01/24/20 23:13 89 01/24/20 23:00 89 15 125/73 (90) 01/24/20 22:00 89 23 114/65 (81) 100 01/24/20 21:00 92 17 123/71 (88) 97 01/24/20 20:00 90 01/24/20 20:00 Venturi Mask 4.0 01/24/20 20:00 98.4 90 17 116/62 (80) 97 01/24/20 20:00 30 01/24/20 19:30 96 Venturi Mask 10.0 40 01/24/20 19:00 92 17 119/63 (81) 96 01/24/20 18:00 92 23 106/64 (78) 100 01/24/20 17:00 93 15 118/66 (83) 100 01/24/20 16:15 40 01/24/20 16:00 76 17 111/63 (79) 100 01/24/20 16:00 Venturi Mask 6.0 01/24/20 16:00 87 01/24/20 16:00 97.4 01/24/20 15:00 90 16 108/71 (83) 100 01/24/20 14:00 75 18 109/64 (79) 99 Intake and Output 01/24/20 01/25/20 19:00 07:00 Intake Total 314 ml 710 ml Output Total 1525 ml 1100 ml Balance -1211 ml -390 ml Free Water 50 ml IV Total 314 ml 660 ml Tube Feeding 0 ml Output Urine Total 1425 ml 950 ml Stool Total 100 ml Chest Tube Drainage Total 150 ml Laboratory Tests 01/24/20 23:21: POC Whole Blood Glucose [Pending] 01/25/20 01:56: POC Whole Blood Glucose [Pending] 01/25/20 04:00: White Blood Count 4.1L, Red Blood Count 3.72L, Hemoglobin 10.6L, Hematocrit 34.8L, Mean Corpuscular Volume 93, Mean Corpuscular Hemoglobin 28.4, Mean Corpuscular Hemoglobin Concent 30.3L, Red Cell Distribution Width 21.2H, Platelet Count 133L, Mean Platelet Volume 7.0, Neutrophils (%) (Auto) 70.0, Lymphocytes (%) (Auto) 14.3L, Monocytes (%) (Auto) 12.4H, Eosinophils (%) (Auto) 1.4, Basophils (%) (Auto) 1.9, Sodium Level 142, Potassium Level 4.0, Chloride Level 110H, Carbon Dioxide Level 20L, Anion Gap 12, Blood Urea Nitrogen 18, Creatinine 1.2, Estimat Glomerular Filtration Rate > 60, Glucose Level 92, Calcium Level 8.2L 01/25/20 05:45: POC Whole Blood Glucose [Pending] Height (Feet): 6 Height (Inches): 0.00 Weight (Pounds): 150 General Appearance: no apparent distress EENT: other - On Venturi mask Cardiovascular: tachycardia Respiratory/Chest: decreased breath sounds Abdomen: distended Dhiraj Biswas MD Jan 25, 2020 13:50
--- NOTE | 2020-01-25 16:51 | Surgery Progress Note ---
Surgery Progress Note Subjective Procedure Performed Right femoral temporary hemodialysis catheter insertion Additional Comments ill appearing in ICU no nv lab noted prognosisg uarded Objective Last 24 Hour Vital Signs Date Time Temp Pulse Resp B/P (MAP) Pulse Ox O2 Delivery O2 Flow Rate FiO2 01/25/20 16:00 Venturi Mask 2.0 01/25/20 16:00 2.0 24 01/25/20 16:00 97.9 93 17 132/72 (92) 98 01/25/20 15:00 92 16 122/79 (93) 96 01/25/20 14:00 88 16 146/82 (103) 100 01/25/20 13:00 93 16 116/74 (88) 100 01/25/20 12:00 2.0 24 01/25/20 12:00 Venturi Mask 2.0 01/25/20 12:00 97.9 90 18 114/72 (86) 100 01/25/20 11:00 88 16 124/73 (90) 100 01/25/20 10:00 93 16 107/70 (82) 100 01/25/20 09:00 94 17 101/69 (80) 100 01/25/20 08:00 2.0 24 01/25/20 08:00 97.9 92 15 107/64 (78) 100 01/25/20 08:00 Venturi Mask 2.0 01/25/20 07:30 95 18 100 Venturi Mask 3.0 28 01/25/20 07:28 100 Venturi Mask 2.0 24 01/25/20 07:00 95 14 89/62 (71) 100 01/25/20 06:00 96 14 138/80 (99) 100 01/25/20 05:00 94 14 121/78 (92) 100 01/25/20 04:00 97.7 98 14 110/75 (87) 100 01/25/20 04:00 30 01/25/20 04:00 Venturi Mask 4.0 01/25/20 03:02 99 01/25/20 03:00 96 15 117/77 (90) 100 01/25/20 02:00 109 16 135/77 (96) 100 01/25/20 01:00 96 15 122/77 (92) 100 01/25/20 00:00 98.4 95 14 123/69 (87) 100 01/25/20 00:00 Venturi Mask 4.0 01/25/20 00:00 30 01/24/20 23:13 89 01/24/20 23:00 89 15 125/73 (90) 01/24/20 22:00 89 23 114/65 (81) 100 01/24/20 21:00 92 17 123/71 (88) 97 01/24/20 20:00 90 01/24/20 20:00 Venturi Mask 4.0 01/24/20 20:00 98.4 90 17 116/62 (80) 97 01/24/20 20:00 30 01/24/20 19:30 96 Venturi Mask 10.0 40 01/24/20 19:00 92 17 119/63 (81) 96 01/24/20 18:00 92 23 106/64 (78) 100 01/24/20 17:00 93 15 118/66 (83) 100 I&O Intake and Output 01/24/20 01/25/20 19:00 07:00 Intake Total 314 ml 710 ml Output Total 1525 ml 1100 ml Balance -1211 ml -390 ml Free Water 50 ml IV Total 314 ml 660 ml Tube Feeding 0 ml Output Urine Total 1425 ml 950 ml Stool Total 100 ml Chest Tube Drainage Total 150 ml Dressing: saturated Cardiovascular: RSR Respiratory: decreased breath sounds Abdomen: distended, non-tender, decreased bowel sounds Extremities: no tenderness, no cyanosis Laboratory Tests Test 01/24/20 23:21 01/25/20 01:56 01/25/20 04:00 01/25/20 05:45 POC Whole Blood Glucose Pending Pending Pending White Blood Count 4.1 K/UL (4.8-10.8) L Red Blood Count 3.72 M/UL (4.70-6.10) L Hemoglobin 10.6 G/DL (14.2-18.0) L Hematocrit 34.8 % (42.0-52.0) L Mean Corpuscular Volume 93 FL (80-99) Mean Corpuscular Hemoglobin 28.4 PG (27.0-31.0) Mean Corpuscular Hemoglobin Concent 30.3 G/DL (32.0-36.0) L Red Cell Distribution Width 21.2 % (11.6-14.8) H Platelet Count 133 K/UL (150-450) L Mean Platelet Volume 7.0 FL (6.5-10.1) Neutrophils (%) (Auto) 70.0 % (45.0-75.0) Lymphocytes (%) (Auto) 14.3 % (20.0-45.0) L Monocytes (%) (Auto) 12.4 % (1.0-10.0) H Eosinophils (%) (Auto) 1.4 % (0.0-3.0) Basophils (%) (Auto) 1.9 % (0.0-2.0) Sodium Level 142 MMOL/L (136-145) Potassium Level 4.0 MMOL/L (3.5-5.1) Chloride Level 110 MMOL/L (98-107) H Carbon Dioxide Level 20 MMOL/L (21-32) L Anion Gap 12 mmol/L (5-15) Blood Urea Nitrogen 18 mg/dL (7-18) Creatinine 1.2 MG/DL (0.55-1.30) Estimat Glomerular Filtration Rate > 60 mL/min (>60) Glucose Level 92 MG/DL (74-106) Calcium Level 8.2 MG/DL (8.5-10.1) L Plan Problems: (1) Altered level of consciousness (2) Hypovolemic shock Assessment & Plan: resuscitation extubated monitor respiratory keep hob elevated supplemental O2 Gallbladder demonstrates sludge. No stones, wall thickening, nor pericholecystic fluid. Patient unable to report Wilson's sign Common bile duct measures 3 mm in diameter. No intrahepatic biliary ductal dilatation. Liver demonstrates coarsened echogenicity and surface nodularity. It demonstrates multiple cysts. Portal vein and hepatic veins are patent. The pancreas demonstrates 3 hypoechoic lesions in the head and body, measuring approximately 5 mm in diameter each. Spleen is unremarkable, poorly visualized. Left kidney measures 11.4 cm in length. Right kidney measures 11.3 cm length. Both kidneys demonstrate normal echogenicity. There is severe right and moderate left hydronephrosis. Echogenic foci are seen in the left renal sinus and collecting system. Bladder is empty, contains a Mathew catheter. Non-aneurysmal abdominal aorta . There are bilateral pleural effusions Impression: Bilateral right greater than left hydronephrosis, increased since prior study of 03/20/2019. Etiology not demonstrated Empty bladder with a Mathew catheter 3 hypoechoic lesions within the pancreatic head and body, each measuring about 5 mm. Appearance nonspecific. Recommend further evaluation with pancreas protocol MRI Bilateral pleural effusions Echogenic liver, consistent with hepatocellular disease. Surface likely nodularity raises concern for cirrhosis Gallbladder sludge. Negative for dilated bile ducts Probable nonobstructive left intrarenal calculi Multiple hepatic cysts (3) Lactic acid acidosis (4) Hypernatremia (5) Paraplegia (6) Anemia Assessment & Plan: no active bleeding noted no large hematoma dressings okay likely related to heme will monitor transfuse prbc with HD trend labs thank you (7) Diabetes (8) Weak (9) HTN (hypertension) (10) ARF (acute renal failure) (11) Hypercalcemia (12) Hyperuricemia (13) Dehydration (14) UTI (urinary tract infection) (15) Failure to thrive in adult Assessment & Plan: patient identified to have DTI on bilateral heels right with 5cm x 4cm area of dti not open no drainage no signs of infection left with 3cm x 2cm. pillow under leg optifoam dressings nutritional optimization will follow no acute surgery DAILY ESTIMATED NEEDS: Needs based on underweight, suspected wt loss, HD, CRITICAL CARE/ 57.6kg 25-33 kcals/kg 3670-7632 total kcals 1.2-2 g protein/kg 69-115 g total protein 25-30 mL/kg 2238-3019 total fluid mLs NUTRITION DIAGNOSIS: *Increased kcal and pro needs r/t underweight status, suspected significant wt loss as evidenced by pt @ 71% IBW w/ BMI 17.2, underweight per guidelines, w/ suspected signficant wt loss of 30lbs/19% in 10 months. * Swallowing difficulty R/T dysphagia, respiratory status as evidenced by s/p NGT insertion (01/08), now NPO, s/p code blue (01/10), orally intubated. CURRENT TF:NPO ENTERAL NUTRITION RECOMMENDATIONS: WHEN HEMODYNAMICALLY STABLE: Nepro @ 40ml/hr x 24 hrs to provide 960ml, 1728kcal, 77g prot, 698ml free water WHEN HEMODYNAMICALLY STABLE AND MEDICALLY APPROPRIATE TO FEED: -> initiate TF @ 5ml/hr x 6hrs, advance slowly 5ml q 4-6 hrs as tolerated to goal rate -> HOB over 30 degrees/ water flush per MD WITHOUT HEMODYNAMIC STABILITY -> If medically appropriate to feed, rec trophic feeding of Nepro @ 5ml/hr x 24 hrs to maintain gut integrity (16) Pelvic mass Assessment & Plan: invasive pelvic mass likely prostate necrotic nodes likely spread recommend colonoscopy given invasion possible to rectum oncology input thank you There is a large pelvic mass which is cephalad to but inseparable from the prostate. This also is inseparable from the posterior wall of the bladder and there appears to be circumferential bladder wall thickening. This mass also appears to involve the seminal vesicles. This measures approximately 8.8 cm transverse by 10 cm craniocaudad by 7.4 cm AP. The periphery of this mass is very lobulated. The mass may also invade the adjacent rectum. There is bilateral iliac chain lymphadenopathy, with nodes measuring up to 3 cm in diameter. Some of these nodes are very low in attenuation indicating that they are necrotic. There is also retroperitoneal lymphadenopathy. There is severe right and moderate left hydronephrosis and bilateral hydroureter. The dilated ureters terminate at the level of the mass. No intrinsic renal parenchymal abnormality. The pancreas is unremarkable. No findings corresponding to the areas of low-attenuation described on prior sonogram are evident. No pancreatic ductal dilatation is evident. The liver demonstrates multiple cysts. The gallbladder, bile ducts, spleen, adrenals are unremarkable. The bones demonstrate diffuse involvement with multiple mixed osteolytic/osteosclerotic lesions, mostly sclerotic component predominating. There is a right groin dialysis catheter in place, tip at the level of the iliac venous confluence. There is a nasogastric tube,, tip in the stomach. There is a Mathew catheter. There is a rectal tube lying outside the patient with the balloon inflated within the inner gluteal fold. There are bilateral pleural effusions. There is compressive atelectasis of most if not all of both lower lobes. 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 Compressive atelectasis of most of not all of both lower lobes Other findings as noted, including multiple liver cysts Lázaro Jenkins Jan 25, 2020 16:51
--- NOTE | 2020-01-25 17:13 | Cardiology Report ---
APPROVED REPORT EKG Measurement Heart [id number] <Conclusion> Sinus tachycardia Left axis deviation Abnormal ECG
--- NOTE | 2020-01-25 20:09 | Diagnostic Imaging Report ---
INDICATION: Abnormal chest COMPARISON: 01/20/2020. Findings/impression: Single limited portable upright frontal view demonstrates tip of the endotracheal tube 5 cm above the héctor. Endotracheal tube coursing over the left upper quadrant. Small to moderate probable layering bilateral effusions similar in size compared to the prior study. Probable bilateral lower lobe atelectasis versus airspace consolidations. No clinically significant pneumothorax. No other significant interval change.
[2020-01-25] MEDS: Dyna-Hex 2% Top Sol 2oz TOPIC SCH (20:22)
[2020-01-25] MEDS: Miralax 17gm pkt NG SCH (20:23)
[2020-01-25] MEDS: Sennosides 8.6mg tab NG SCH (20:23)
[2020-01-26] VITALS (10 sets, daily range): BP systolic 109–158; BP diastolic 67–84
[2020-01-26] MEDS: Midodrine 10mg tab NG SCH ×3 (05:14→22:14)
[2020-01-26] MEDS: Metoclopramide 10mg/10ml Liq NG SCH ×3 (05:18→18:11)
[2020-01-26 06:01] LABS: EOSINOPHILS % (AUTO) 1.4 % (0.0-3.0); HEMATOCRIT 33.1 % (42.0-52.0); HEMOGLOBIN 10.3 G/DL (14.2-18.0); LYMPHOCYTES % (AUTO) 17.2 % (20.0-45.0); MEAN CORPUSCULAR VOLUME 92 FL (80-99); MONOCYTES % (AUTO) 8.8 % (1.0-10.0); NEUTROPHILS % (AUTO) 71.5 % (45.0-75.0); PLATELET COUNT 150 K/UL (150-450); RED BLOOD COUNT 3.59 M/UL (4.70-6.10); RED CELL DISTRIBUTION WIDTH 20.4 % (11.6-14.8); WHITE BLOOD COUNT 4.2 K/UL (4.8-10.8)
[2020-01-26 06:49] LABS: ANION GAP 11 mmol/L (5-15); BLOOD UREA NITROGEN 15 mg/dL (7-18); CALCIUM 7.8 MG/DL (8.5-10.1); CARBON DIOXIDE 18 MMOL/L (21-32); CHLORIDE 108 MMOL/L (98-107); CREATININE 0.9 MG/DL (0.55-1.30); POTASSIUM 3.7 MMOL/L (3.5-5.1); SODIUM 137 MMOL/L (136-145)
--- NOTE | 2020-01-26 08:05 | Infectious Diseases Prog Note ---
Assessment/Plan 69yo M with: Shock- likely combination septic and metabolic derangements- SP Probable UTI -01/10 u/a wbc 60-80, nit neg, leuk +3; ucx Neg -Bcx NTD Probable PNA -01/12 CXR: No significant change in bilateral patchy pulmondary opacities, concerning for pneumonia versus edemaq. Small bilateral pleural effusions. -01/10 CXR: Bilateral interstitial and airspace infiltrates versus edema persists. sp cx MRSA (S Vancomycin, bactrim, tetracycline) COVID19 neg -01/04 rapid COVID PCR neg x1 influenza PCR neg CXR: Mild interstitial vascular prominence. No focal infiltrate or consolidation. 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 Etiology not demonstrated. Empty bladder with a Mathew catheter. 3 hypoechoic lesions within the pancreatic head and body, each measuring about 5 mm. Appearance nonspecific. Bilateral pleural effusions. Echogenic liver, consistent with hepatocellular disease. Surface likely nodularity raises concern for cirrhosis. Gallbladder sludge. Negative for dilated bile ducts. Probable nonobstructive left intrarenal calculi. Multiple hepatic cysts Acute on chronic encephalopathy -CT head: 1. Markedly limited, near nondiagnostic evaluation due to motion artifact. Grossly, age-related changes and small vessel disease of aging are noted. Again grossly, no acute intracranial pathology is detected. If there is a high degree of concern or if there is concern for subtle abnormalities, magnetic resonance imaging of the brain with diffusion-weighted sequences should be performed, due to the markedly limited nature of the current study. Close clinical correlation is necessary. HTN COPD DM2 paraplegia Dementia non verbal [facility]) Plan: Cont to monitor off abx -01/18 SP vanco IV #7 -01/16 SP Cefepime #4 -01/13 SP ZOsyn #4 -01/06 SP Ceftriaxone #2 -01/04 Sp IV Vancomycin x1, Cefepime x1 -f/u cx -Monitor CBC/CMP, temperatures -Renal, cards f/u -aspiration precautions D/w RN Thank you for consulting [facility]. Will continue to follow along with you. Subjective Allergies: Coded Allergies: No Known Allergies (Unverified , 03/18/19) AF WBC 4.2 NAD on venti mask Now on floor Objective Last 24 Hour Vital Signs Date Time Temp Pulse Resp B/P (MAP) Pulse Ox O2 Delivery O2 Flow Rate FiO2 01/26/20 06:00 96 19 109/67 (81) 97 01/26/20 05:00 95 19 137/67 (90) 99 01/26/20 04:00 2.0 24 01/26/20 04:00 91 20 149/81 (103) 96 01/26/20 04:00 91 01/26/20 04:00 Venturi Mask 2.0 01/26/20 03:00 99 23 158/84 (108) 96 01/26/20 02:00 95 20 153/76 (101) 97 01/26/20 01:00 100 22 151/82 (105) 96 01/26/20 00:00 2.0 24 01/26/20 00:00 99 01/26/20 00:00 Venturi Mask 2.0 01/26/20 00:00 97.9 99 21 148/81 (103) 96 01/25/20 23:00 96 20 142/75 (97) 97 01/25/20 22:00 95 20 144/75 (98) 97 01/25/20 21:00 94 20 138/77 (97) 96 01/25/20 20:00 Venturi Mask 2.0 01/25/20 20:00 96.9 90 18 134/76 (95) 97 01/25/20 19:28 96 Venturi Mask 2.0 24 01/25/20 19:00 89 17 115/65 (82) 100 01/25/20 18:00 95 19 135/80 (98) 99 01/25/20 17:00 91 18 140/77 (98) 99 01/25/20 16:00 Venturi Mask 2.0 01/25/20 16:00 2.0 24 01/25/20 16:00 97.9 93 17 132/72 (92) 98 01/25/20 16:00 93 01/25/20 15:00 92 16 122/79 (93) 96 01/25/20 14:00 88 16 146/82 (103) 100 01/25/20 13:00 93 16 116/74 (88) 100 01/25/20 12:00 2.0 24 01/25/20 12:00 Venturi Mask 2.0 01/25/20 12:00 97.9 90 18 114/72 (86) 100 01/25/20 12:00 92 01/25/20 11:00 88 16 124/73 (90) 100 01/25/20 10:00 93 16 107/70 (82) 100 01/25/20 09:00 94 17 101/69 (80) 100 Height (Feet): 6 Height (Inches): 0.00 Weight (Pounds): 150 Gen: NAD in bed HEENT: NCAT CV: RRR Pulm: BL chest rise on Venti mask Abd: Soft, Non-distended Ext: No c/c/e Neuro: Awake Laboratory Tests Test 01/25/20 18:30 01/26/20 05:10 POC Whole Blood Glucose 108 MG/DL (74-106) H White Blood Count 4.2 K/UL (4.8-10.8) L Red Blood Count 3.59 M/UL (4.70-6.10) L Hemoglobin 10.3 G/DL (14.2-18.0) L Hematocrit 33.1 % (42.0-52.0) L Mean Corpuscular Volume 92 FL (80-99) Mean Corpuscular Hemoglobin 28.6 PG (27.0-31.0) Mean Corpuscular Hemoglobin Concent 31.0 G/DL (32.0-36.0) L Red Cell Distribution Width 20.4 % (11.6-14.8) H Platelet Count 150 K/UL (150-450) Mean Platelet Volume 7.0 FL (6.5-10.1) Neutrophils (%) (Auto) 71.5 % (45.0-75.0) Lymphocytes (%) (Auto) 17.2 % (20.0-45.0) L Monocytes (%) (Auto) 8.8 % (1.0-10.0) Eosinophils (%) (Auto) 1.4 % (0.0-3.0) Basophils (%) (Auto) 1.0 % (0.0-2.0) Sodium Level 137 MMOL/L (136-145) Potassium Level 3.7 MMOL/L (3.5-5.1) Chloride Level 108 MMOL/L (98-107) H Carbon Dioxide Level 18 MMOL/L (21-32) L Anion Gap 11 mmol/L (5-15) Blood Urea Nitrogen 15 mg/dL (7-18) Creatinine 0.9 MG/DL (0.55-1.30) Estimat Glomerular Filtration Rate > 60 mL/min (>60) Glucose Level 124 MG/DL (74-106) H Calcium Level 7.8 MG/DL (8.5-10.1) L Current Medications Medications (Trade) Dose Ordered Sig/Jesse Route PRN Reason Start Time Stop Time Status Last Admin Dose Admin Acetaminophen (Tylenol) 650 mg Q4H PRN ORAL PRNH/TEMP 01/05/20 20:15 02/04/20 20:14 01/12/20 03:10 Bisacodyl (Dulcolax) 10 mg DAILY PRN RECTAL Constipation 01/05/20 20:15 04/04/20 20:14 Chlorhexidine Gluconate (Navya-Hex 2%) 1 applic DAILY@1999 TOPIC 01/11/20 20:00 04/10/20 19:59 01/25/20 20:22 Dextrose (Dextrose 50%) 25 ml Q30M PRN IV Hypoglycemia 01/05/20 20:15 04/04/20 20:14 01/24/20 23:53 Dextrose (Dextrose 50%) 50 ml Q30M PRN IV Hypoglycemia 01/05/20 20:15 04/04/20 20:14 Dextrose/Sodium Chloride 1,000 ml @ 60 mls/hr [id number] IV 01/24/20 13:30 02/23/20 13:29 01/25/20 22:59 Linaclotide (Linzess) 290 mcg BEFORE BREAKFAST ORAL 01/10/20 06:30 23/21 06:29 01/26/20 05:18 Metoclopramide HCl (Reglan) 10 mg EVERY 6 HOURS NG 01/19/20 12:00 02/18/20 11:59 01/26/20 05:18 Metoclopramide HCl (Reglan) 10 mg Q6H PRN IVP Nausea & Vomiting 01/16/20 13:00 02/15/20 12:59 Midodrine (Pro-Amatine) 10 mg Q8HR NG 01/20/20 22:00 04/13/20 17:59 01/25/20 13:07 Ondansetron HCl (Zofran) 4 mg Q6H PRN IVP Nausea & Vomiting 01/10/20 06:30 02/09/20 06:29 Pantoprazole (Protonix) 40 mg EVERY 12 HOURS IVP 01/20/20 21:00 02/19/20 20:59 01/25/20 20:22 Polyethylene Glycol (Miralax) 17 gm BEDTIME NG 01/11/20 21:00 02/08/20 20:59 01/20/20 20:22 Sennosides (Senokot) 8.6 mg QHS NG 01/11/20 21:00 02/04/20 20:59 01/22/20 20:06 Vitamin D (Vitamin D) 3,000 intlu DAILY GT 01/19/20 12:00 02/18/20 11:59 01/24/20 09:15 Nayana Ochoa M.D. Jan 26, 2020 08:05
[2020-01-26] MEDS: Vitamin D 1000 IU Tab GT SCH (09:49)
[2020-01-26] MEDS: Pantoprazole Inj IVP SCH ×2 (09:50→22:12)
--- NOTE | 2020-01-26 10:02 | General Progress Note ---
Subjective Constitutional: Reports: weakness Allergies: Coded Allergies: No Known Allergies (Unverified , 03/18/19) All Systems: reviewed and negative except above Subjective o2 mask ng Objective Last 24 Hour Vital Signs Date Time Temp Pulse Resp B/P (MAP) Pulse Ox O2 Delivery O2 Flow Rate FiO2 01/26/20 08:00 98.4 94 20 126/77 (93) 94 01/26/20 06:00 96 19 109/67 (81) 97 01/26/20 05:00 95 19 137/67 (90) 99 01/26/20 04:00 2.0 24 01/26/20 04:00 91 20 149/81 (103) 96 01/26/20 04:00 91 01/26/20 04:00 Venturi Mask 2.0 01/26/20 03:00 99 23 158/84 (108) 96 01/26/20 02:00 95 20 153/76 (101) 97 01/26/20 01:00 100 22 151/82 (105) 96 01/26/20 00:00 2.0 24 01/26/20 00:00 99 01/26/20 00:00 Venturi Mask 2.0 01/26/20 00:00 97.9 99 21 148/81 (103) 96 01/25/20 23:00 96 20 142/75 (97) 97 01/25/20 22:00 95 20 144/75 (98) 97 01/25/20 21:00 94 20 138/77 (97) 96 01/25/20 20:00 Venturi Mask 2.0 01/25/20 20:00 96.9 90 18 134/76 (95) 97 01/25/20 19:28 96 Venturi Mask 2.0 24 01/25/20 19:00 89 17 115/65 (82) 100 01/25/20 18:00 95 19 135/80 (98) 99 01/25/20 17:00 91 18 140/77 (98) 99 01/25/20 16:00 Venturi Mask 2.0 01/25/20 16:00 2.0 24 01/25/20 16:00 97.9 93 17 132/72 (92) 98 01/25/20 16:00 93 01/25/20 15:00 92 16 122/79 (93) 96 01/25/20 14:00 88 16 146/82 (103) 100 01/25/20 13:00 93 16 116/74 (88) 100 01/25/20 12:00 2.0 24 01/25/20 12:00 Venturi Mask 2.0 01/25/20 12:00 97.9 90 18 114/72 (86) 100 01/25/20 12:00 92 01/25/20 11:00 88 16 124/73 (90) 100 Intake and Output 01/25/20 01/26/20 19:00 07:00 Intake Total 1090 ml 1021 ml Output Total 925 ml 600 ml Balance 165 ml 421 ml IV Total 720 ml 661 ml Tube Feeding 190 ml 360 ml Other 180 ml Output Urine Total 875 ml 600 ml Stool Total 50 ml Laboratory Tests 01/25/20 18:30: POC Whole Blood Glucose 108H 01/26/20 05:10: White Blood Count 4.2L, Red Blood Count 3.59L, Hemoglobin 10.3L, Hematocrit 33.1L, Mean Corpuscular Volume 92, Mean Corpuscular Hemoglobin 28.6, Mean Corpuscular Hemoglobin Concent 31.0L, Red Cell Distribution Width 20.4H, Platelet Count 150, Mean Platelet Volume 7.0, Neutrophils (%) (Auto) 71.5, Lymphocytes (%) (Auto) 17.2L, Monocytes (%) (Auto) 8.8, Eosinophils (%) (Auto) 1.4, Basophils (%) (Auto) 1.0, Sodium Level 137, Potassium Level 3.7, Chloride Level 108H, Carbon Dioxide Level 18L, Anion Gap 11, Blood Urea Nitrogen 15, Cr eatinine 0.9, Estimat Glomerular Filtration Rate > 60, Glucose Level 124H, Calcium Level 7.8L Height (Feet): 6 Height (Inches): 0.00 Weight (Pounds): 150 General Appearance: lethargic EENT: normal ENT inspection Neck: normal alignment Cardiovascular: normal peripheral pulses, normal rate, regular rhythm Respiratory/Chest: chest wall non-tender, lungs clear, normal breath sounds Abdomen: normal bowel sounds, non tender, soft Extremities: normal inspection Edema: no edema noted Arm (L), no edema noted Arm (R), no edema noted Leg (L), no edema noted Leg (R), no edema noted Pedal (L), no edema noted Pedal (R), no edema noted Generalized Neurologic: motor weakness Skin: normal pigmentation, warm/dry Assessment/Plan Problem List: (1) Anemia ICD Codes: D64.9 - Anemia, unspecified SNOMED: 306560695 (2) Paraplegia ICD Codes: G82.20 - Paraplegia, unspecified SNOMED: 49278692 (3) Diabetes ICD Codes: E11.9 - Type 2 diabetes mellitus without complications SNOMED: 70717789 (4) Weak ICD Codes: R53.1 - Weakness SNOMED: 13605993 (5) HTN (hypertension) ICD Codes: I10 - Essential (primary) hypertension SNOMED: 15324800 (6) ARF (acute renal failure) ICD Codes: N17.9 - Acute kidney failure, unspecified SNOMED: 56645785 (7) Altered level of consciousness ICD Codes: R40.4 - Transient alteration of awareness SNOMED: 3178936 (8) Dehydration ICD Codes: E86.0 - Dehydration SNOMED: 90390597 (9) Hypernatremia ICD Codes: E87.0 - Hyperosmolality and hypernatremia SNOMED: 073773628 Status: unchanged Assessment/Plan: 02 pulm tx abx cbc bmp am Farrukh Ríos DO Jan 26, 2020 10:02
--- NOTE | 2020-01-26 10:05 | Nephrology Progress Note ---
Assessment/Plan Problem List: (1) ARF (acute renal failure) (2) Hypernatremia (3) Hypovolemic shock (4) Altered level of consciousness (5) Hypercalcemia (6) Hyperuricemia (7) Pelvic mass Assessment: Prostate cancer Assessment Acute renal failure Possible underlying chronic kidney failure Severe dehydration Hypernatremia indicative of severe water deficit Severe hyperuricemia, partly due to dehydration and renal failure Acute metabolic and toxic encephalopathy Mild, malnutrition Anemia Lactic acid, possible sepsis Hypercalcemia Plan January 25: Renal parameters stable. On Venturi mask. Continue per current management. January 24: Renal parameters stable. On Venturi mask. Discussed with RN. Due for PEG insertion today. January 23: Stable from renal standpoint of view. On Venturi mask. Low magnesium addressed. Continue per consultants. January 22: Patient off pressors. Patient extubated. Labs reviewed. Renal parameters are stable. January 21: Patient on low-dose pressors. Remains hypotensive. Renal parameters stable. Weaning trial in process. Mental status remains poor. January 20: Patient in ICU. Intubated. Full code. Has advanced prostate cancer. On IV Lasix drip. Low magnesium and low phosphorus and low potassium noted and addressed. Continue per consultants. January 19: Patient in ICU. Intubated. Was coded yesterday. Labs reviewed. Medication list reviewed and adjusted. Continue per consultants. Patient full code. Prognosis poor. PSA over 2700 January 18: Labs reviewed. IV fluid discontinued. IV calcium dose decreased. Midodrine dose decreased. Reglan and Protonix changed to GT route. Vitamin D initiated. Continue to monitor renal parameters and calcium level. January 17: Labs reviewed. Abnormal electrolyte addressed. Continue per consultants. January 16: Patient now in telemetry. Labs pending. Continue to monitor renal parameters. Continue per consultants. January 15: Still in ICU. Doing well post extubation. Renal parameters improving. Not requiring any more dialysis treatment after the first dialysis treatment. Medications reviewed. Continue per consultants. January 14: Remains in ICU. Tolerating extubation. Labs reviewed. Abnormal electrolytes addressed. Serum creatinine lowering. Continue per current management. Stop Phos binders. Increase calcium IV. January 13: In ICU. Now extubated. Only dialyzed once. Urine output maintained. Serum creatinine down to 2.5. Patient has NG tube. Continue to monitor renal parameters. Continue per consultants. Abnormal electrolytes addressed. January 12: Remains in ICU. Intubated. Transfused yesterday. Abnormal electrolytes addressed. Dialyzed once January 10. Serum creatinine stable. Will adjust IV fluid. Monitor renal parameters. Dialysis as needed. Calcium gluconate IV ordered. Ionized calcium level ordered with tomorrow's labs. January 11: Patient in ICU. Intubated. On Levophed. Hemoglobin low. Due for transfusion. Electrolyte abnormalities noted and addressed. Patient was dialyzed yesterday. Will check lab tomorrow. Dialysis as needed. Discussed with SELIN Srivastava. January 10: Patient is doing poorly. Blood pressure low. ABG abnormal with metabolic acidosis. IV sodium bicarb given. Serum creatinine reno. Patient has acute renal failure. Nontunneled dialysis catheter replacement ordered.. Patient need life saving dialysis treatment SRINIVAS. January 09: Labs reviewed. IV D5 and a half with sodium bicarb initiated. Serum creatinine higher. Continue to monitor renal parameters. NG feeding was changed to Nepro. Patient remains full code. Poor prognosis. January 08: Labs reviewed. IV D5W discontinued. 500 cc 3% saline ordered. NG tube for feeding and for medications. Allopurinol dose increased. Continue to monitor renal parameters serum calcium and phosphorus. January 07: Labs reviewed. Serum calcium remains elevated. Uric acid still elevated. Will give pamidronate 60 mg IV piggyback once for hypercalcemia. Continue to monitor renal parameters. Continue D5W 150 cc an hour. Start Bicitra 30 cc p.o. every 6 hours. Add allopurinol D5W IV hydration Albumin bolus N.p.o. until able to take p.o. Antibiotics Monitor renal parameters monitor calcium, monitor uric acid Subjective ROS Limited/Unobtainable: Yes Constitutional: Reports: malaise, weakness Objective Objective Last 24 Hour Vital Signs Date Time Temp Pulse Resp B/P (MAP) Pulse Ox O2 Delivery O2 Flow Rate FiO2 01/26/20 08:00 98.4 94 20 126/77 (93) 94 01/26/20 06:00 96 19 109/67 (81) 97 01/26/20 05:00 95 19 137/67 (90) 99 01/26/20 04:00 2.0 24 01/26/20 04:00 91 20 149/81 (103) 96 01/26/20 04:00 91 01/26/20 04:00 Venturi Mask 2.0 01/26/20 03:00 99 23 158/84 (108) 96 01/26/20 02:00 95 20 153/76 (101) 97 01/26/20 01:00 100 22 151/82 (105) 96 01/26/20 00:00 2.0 24 01/26/20 00:00 99 01/26/20 00:00 Venturi Mask 2.0 01/26/20 00:00 97.9 99 21 148/81 (103) 96 01/25/20 23:00 96 20 142/75 (97) 97 01/25/20 22:00 95 20 144/75 (98) 97 01/25/20 21:00 94 20 138/77 (97) 96 01/25/20 20:00 Venturi Mask 2.0 01/25/20 20:00 96.9 90 18 134/76 (95) 97 01/25/20 19:28 96 Venturi Mask 2.0 24 01/25/20 19:00 89 17 115/65 (82) 100 01/25/20 18:00 95 19 135/80 (98) 99 01/25/20 17:00 91 18 140/77 (98) 99 01/25/20 16:00 Venturi Mask 2.0 01/25/20 16:00 2.0 24 01/25/20 16:00 97.9 93 17 132/72 (92) 98 01/25/20 16:00 93 01/25/20 15:00 92 16 122/79 (93) 96 01/25/20 14:00 88 16 146/82 (103) 100 01/25/20 13:00 93 16 116/74 (88) 100 01/25/20 12:00 2.0 24 01/25/20 12:00 Venturi Mask 2.0 01/25/20 12:00 97.9 90 18 114/72 (86) 100 01/25/20 12:00 92 01/25/20 11:00 88 16 124/73 (90) 100 Intake and Output 01/25/20 01/26/20 19:00 07:00 Intake Total 1090 ml 1021 ml Output Total 925 ml 600 ml Balance 165 ml 421 ml IV Total 720 ml 661 ml Tube Feeding 190 ml 360 ml Other 180 ml Output Urine Total 875 ml 600 ml Stool Total 50 ml Current Medications Medications (Trade) Dose Ordered Sig/Jesse Route PRN Reason Start Time Stop Time Status Last Admin Dose Admin Acetaminophen (Tylenol) 650 mg Q4H PRN ORAL PRNH/TEMP 01/05/20 20:15 02/04/20 20:14 01/12/20 03:10 Bisacodyl (Dulcolax) 10 mg DAILY PRN RECTAL Constipation 01/05/20 20:15 04/04/20 20:14 Chlorhexidine Gluconate (Navya-Hex 2%) 1 applic DAILY@2000 TOPIC 01/11/20 20:00 04/10/20 19:59 01/25/20 20:22 Dextrose (Dextrose 50%) 25 ml Q30M PRN IV Hypoglycemia 01/05/20 20:15 04/04/20 20:14 01/24/20 23:53 Dextrose (Dextrose 50%) 50 ml Q30M PRN IV Hypoglycemia 01/05/20 20:15 04/04/20 20:14 Dextrose/Sodium Chloride 1,000 ml @ 60 mls/hr [id number] IV 01/24/20 13:30 02/23/20 13:29 01/25/20 22:59 Linaclotide (Linzess) 290 mcg BEFORE BREAKFAST ORAL 01/10/20 06:30 04/09/20 06:29 01/26/20 05:18 Metoclopramide HCl (Reglan) 10 mg EVERY 6 HOURS NG 01/19/20 12:00 02/18/20 11:59 01/26/20 05:18 Metoclopramide HCl (Reglan) 10 mg Q6H PRN IVP Nausea & Vomiting 01/16/20 13:00 02/15/20 12:59 Midodrine (Pro-Amatine) 10 mg Q8HR NG 01/20/20 22:00 04/13/20 17:59 01/25/20 13:07 Ondansetron HCl (Zofran) 4 mg Q6H PRN IVP Nausea & Vomiting 01/10/20 06:30 02/09/20 06:29 Pantoprazole (Protonix) 40 mg EVERY 12 HOURS IVP 01/20/20 21:00 02/19/20 20:59 01/26/20 09:50 Polyethylene Glycol (Miralax) 17 gm BEDTIME NG 01/11/20 21:00 12/4/20 20:59 01/20/20 20:22 Sennosides (Senokot) 8.6 mg QHS NG 01/11/20 21:00 02/04/20 20:59 01/22/20 20:06 Vitamin D (Vitamin D) 3,000 intlu DAILY GT 01/19/20 12:00 02/18/20 11:59 01/26/20 09:49 Laboratory Tests 01/25/20 18:30: POC Whole Blood Glucose 108H 01/26/20 05:10: White Blood Count 4.2L, Red Blood Count 3.59L, Hemoglobin 10.3L, Hematocrit 33.1L, Mean Corpuscular Volume 92, Mean Corpuscular Hemoglobin 28.6, Mean Corpuscular Hemoglobin Concent 31.0L, Red Cell Distribution Width 20.4H, Platelet Count 150, Mean Platelet Volume 7.0, Neutrophils (%) (Auto) 71.5, Lymphocytes (%) (Auto) 17.2L, Monocytes (%) (Auto) 8.8, Eosinophils (%) (Auto) 1.4, Basophils (%) (Auto) 1.0, Sodium Level 137, Potassium Level 3.7, Chloride Level 108H, Carbon Dioxide Level 18L, Anion Gap 11, Blood Urea Nitrogen 15, Creatinine 0.9, Estimat Glomerular Filtration Rate > 60, Glucose Level 124H, Calcium Level 7.8L Height (Feet): 6 Height (Inches): 0.00 Weight (Pounds): 150 General Appearance: lethargic Cardiovascular: tachycardia Respiratory/Chest: decreased breath sounds Abdomen: distended Dhiraj Biswas MD Jan 26, 2020 10:05
--- NOTE | 2020-01-26 12:05 | Pulmonology Progress Note ---
Subjective ROS Limited/Unobtainable: Yes Interval Events: Now on 2L/min O2 Constitutional: Reports: no symptoms HEENT: Repors: no symptoms Respiratory: Reports: no symptoms Cardiovascular: Reports: no symptoms Gastrointestinal/Abdominal: Reports: no symptoms Genitourinary: Reports: no symptoms Allergies: Coded Allergies: No Known Allergies (Unverified , 03/18/19) All Systems: reviewed and negative except above Objective Last 24 Hour Vital Signs Date Time Temp Pulse Resp B/P (MAP) Pulse Ox O2 Delivery O2 Flow Rate FiO2 01/26/20 08:00 98.4 94 20 126/77 (93) 94 01/26/20 08:00 94 01/26/20 06:00 96 19 109/67 (81) 97 01/26/20 05:00 95 19 137/67 (90) 99 01/26/20 04:00 2.0 24 01/26/20 04:00 91 20 149/81 (103) 96 01/26/20 04:00 91 01/26/20 04:00 Venturi Mask 2.0 01/26/20 03:00 99 23 158/84 (108) 96 01/26/20 02:00 95 20 153/76 (101) 97 01/26/20 01:00 100 22 151/82 (105) 96 01/26/20 00:00 2.0 24 01/26/20 00:00 99 01/26/20 00:00 Venturi Mask 2.0 01/26/20 00:00 97.9 99 21 148/81 (103) 96 01/25/20 23:00 96 20 142/75 (97) 97 01/25/20 22:00 95 20 144/75 (98) 97 01/25/20 21:00 94 20 138/77 (97) 96 01/25/20 20:00 Venturi Mask 2.0 01/25/20 20:00 96.9 90 18 134/76 (95) 97 01/25/20 19:28 96 Venturi Mask 2.0 24 01/25/20 19:00 89 17 115/65 (82) 100 01/25/20 18:00 95 19 135/80 (98) 99 01/25/20 17:00 91 18 140/77 (98) 99 01/25/20 16:00 Venturi Mask 2.0 01/25/20 16:00 2.0 24 01/25/20 16:00 97.9 93 17 132/72 (92) 98 01/25/20 16:00 93 01/25/20 15:00 92 16 122/79 (93) 96 01/25/20 14:00 88 16 146/82 (103) 100 01/25/20 13:00 93 16 116/74 (88) 100 Intake and Output 01/25/20 01/26/20 19:00 07:00 Intake Total 1090 ml 1021 ml Output Total 925 ml 600 ml Balance 165 ml 421 ml IV Total 720 ml 661 ml Tube Feeding 190 ml 360 ml Other 180 ml Output Urine Total 875 ml 600 ml Stool Total 50 ml General Appearance: no acute distress HEENT: normocephalic Respiratory: chest wall non-tender, lungs clear Cardiovascular: normal peripheral pulses, normal rate Abdomen: normal bowel sounds Laboratory Tests 01/25/20 18:30: POC Whole Blood Glucose 108H 01/26/20 05:10: White Blood Count 4.2L, Red Blood Count 3.59L, Hemoglobin 10.3L, Hematocrit 33.1L, Mean Corpuscular Volume 92, Mean Corpuscular Hemoglobin 28.6, Mean Corpuscular Hemoglobin Concent 31.0L, Red Cell Distribution Width 20.4H, P latelet Count 150, Mean Platelet Volume 7.0, Neutrophils (%) (Auto) 71.5, Lymphocytes (%) (Auto) 17.2L, Monocytes (%) (Auto) 8.8, Eosinophils (%) (Auto) 1.4, Basophils (%) (Auto) 1.0, Sodium Level 137, Potassium Level 3.7, Chloride Level 108H, Carbon Dioxide Level 18L, Anion Gap 11, Blood Urea Nitrogen 15, Creatinine 0.9, Estimat Glomerular Filtration Rate > 60, Glucose Level 124H, Calcium Level 7.8L, Prostate Specific Antigen 2500.05H Current Medications Medications (Trade) Dose Ordered Sig/Jesse Route PRN Reason Start Time Stop Time Status Last Admin Dose Admin Acetaminophen (Tylenol) 650 mg Q4H PRN ORAL PRNH/TEMP 01/05/20 20:15 02/04/20 20:14 01/12/20 03:10 Bisacodyl (Dulcolax) 10 mg DAILY PRN RECTAL Constipation 01/05/20 20:15 04/04/20 20:14 Chlorhexidine Gluconate (Navya-Hex 2%) 1 applic DAILY@2000 TOPIC 01/11/20 20:00 04/10/20 19:59 01/25/20 20:22 Dextrose (Dextrose 50%) 25 ml Q30M PRN IV Hypoglycemia 01/05/20 20:15 04/04/20 20:14 01/24/20 23:53 Dextrose (Dextrose 50%) 50 ml Q30M PRN IV Hypoglycemia 01/05/20 20:15 04/04/20 20:14 Dextrose/Sodium Chloride 1,000 ml @ 60 mls/hr [id number] IV 01/24/20 13:30 02/23/20 13:29 01/25/20 22:59 Linaclotide (Linzess) 290 mcg BEFORE BREAKFAST ORAL 01/10/20 06:30 04/09/20 06:29 01/26/20 05:18 Metoclopramide HCl (Reglan) 10 mg EVERY 6 HOURS NG 01/19/20 12:00 02/18/20 11:59 01/26/20 05:18 Metoclopramide HCl (Reglan) 10 mg Q6H PRN IVP Nausea & Vomiting 01/16/20 13:00 02/15/20 12:59 Midodrine (Pro-Amatine) 10 mg Q8HR NG 01/20/20 22:00 04/13/20 17:59 01/25/20 13:07 Ondansetron HCl (Zofran) 4 mg Q6H PRN IVP Nausea & Vomiting 01/10/20 06:30 02/09/20 06:29 Pantoprazole (Protonix) 40 mg EVERY 12 HOURS IVP 01/20/20 21:00 02/19/20 20:59 01/26/20 09:50 Polyethylene Glycol (Miralax) 17 gm BEDTIME NG 01/11/20 21:00 02/08/20 20:59 01/20/20 20:22 Sennosides (Senokot) 8.6 mg QHS NG 01/11/20 21:00 02/04/20 20:59 01/22/20 20:06 Vitamin D (Vitamin D) 3,000 intlu DAILY GT 01/19/20 12:00 02/18/20 11:59 11/21/20 09:49 Assessment/Plan Assessment/Plan IMPRESSION: 1. Severe metabolic acidosis. Corrected; now has combined respiratory and metabolic alkalosis 2. Respiratory failure; now extubated 3. Diarrhea. Resolved 4. Acute renal failure. Nephrology following; 5. Anemia; DISCUSSION: EGD and PEG scheduled Remains obtunded Saturating well on 2L/min O2 Daxa Infante Omar Syed MD Jan 26, 2020 12:05
--- NOTE | 2020-01-26 12:55 | Surgery Progress Note ---
Surgery Progress Note Subjective Procedure Performed Right femoral temporary hemodialysis catheter insertion Additional Comments no acute events comfortable stable labs noted line ildefonso Objective Last 24 Hour Vital Signs Date Time Temp Pulse Resp B/P (MAP) Pulse Ox O2 Delivery O2 Flow Rate FiO2 01/26/20 08:00 98.4 94 20 126/77 (93) 94 01/26/20 08:00 94 01/26/20 06:00 96 19 109/67 (81) 97 01/26/20 05:00 95 19 137/67 (90) 99 01/26/20 04:00 2.0 24 01/26/20 04:00 91 20 149/81 (103) 96 01/26/20 04:00 91 01/26/20 04:00 Venturi Mask 2.0 01/26/20 03:00 99 23 158/84 (108) 96 01/26/20 02:00 95 20 153/76 (101) 97 01/26/20 01:00 100 22 151/82 (105) 96 01/26/20 00:00 2.0 24 01/26/20 00:00 99 01/26/20 00:00 Venturi Mask 2.0 01/26/20 00:00 97.9 99 21 148/81 (103) 96 01/25/20 23:00 96 20 142/75 (97) 97 01/25/20 22:00 95 20 144/75 (98) 97 01/25/20 21:00 94 20 138/77 (97) 96 01/25/20 20:00 Venturi Mask 2.0 01/25/20 20:00 96.9 90 18 134/76 (95) 97 01/25/20 19:28 96 Venturi Mask 2.0 24 01/25/20 19:00 89 17 115/65 (82) 100 01/25/20 18:00 95 19 135/80 (98) 99 01/25/20 17:00 91 18 140/77 (98) 99 01/25/20 16:00 Venturi Mask 2.0 01/25/20 16:00 2.0 24 01/25/20 16:00 97.9 93 17 132/72 (92) 98 01/25/20 16:00 93 01/25/20 15:00 92 16 122/79 (93) 96 01/25/20 14:00 88 16 146/82 (103) 100 01/25/20 13:00 93 16 116/74 (88) 100 I&O Intake and Output 01/25/20 01/26/20 19:00 07:00 Intake Total 1090 ml 1021 ml Output Total 925 ml 600 ml Balance 165 ml 421 ml IV Total 720 ml 661 ml Tube Feeding 190 ml 360 ml Other 180 ml Output Urine Total 875 ml 600 ml Stool Total 50 ml Dressing: saturated Cardiovascular: RSR Respiratory: decreased breath sounds Abdomen: non-tender, present bowel sounds, non-distended Extremities: edema, no tenderness, no cyanosis Laboratory Tests Test 01/25/20 18:30 01/26/20 05:10 POC Whole Blood Glucose 108 MG/DL (74-106) H White Blood Count 4.2 K/UL (4.8-10.8) L Red Blood Count 3.59 M/UL (4.70-6.10) L Hemoglobin 10.3 G/DL (14.2-18.0) L Hematocrit 33.1 % (42.0-52.0) L Mean Corpuscular Volume 92 FL (80-99) Mean Corpuscular Hemoglobin 28.6 PG (27.0-31.0) Mean Corpuscular Hemoglobin Concent 31.0 G/DL (32.0-36.0) L Red Cell Distribution Width 20.4 % (11.6-14.8) H Platelet Count 150 K/UL (150-450) Mean Platelet Volume 7.0 FL (6.5-10.1) Neutrophils (%) (Auto) 71.5 % (45.0-75.0) Lymphocytes (%) (Auto) 17.2 % (20.0-45.0) L Monocytes (%) (Auto) 8.8 % (1.0-10.0) Eosinophils (%) (Auto) 1.4 % (0.0-3.0) Basophils (%) (Auto) 1.0 % (0.0-2.0) Sodium Level 137 MMOL/L (136-145) Potassium Level 3.7 MMOL/L (3.5-5.1) Chloride Level 108 MMOL/L (98-107) H Carbon Dioxide Level 18 MMOL/L (21-32) L Anion Gap 11 mmol/L (5-15) Blood Urea Nitrogen 15 mg/dL (7-18) Creatinine 0.9 MG/DL (0.55-1.30) Estimat Glomerular Filtration Rate > 60 mL/min (>60) Glucose Level 124 MG/DL (74-106) H Calcium Level 7.8 MG/DL (8.5-10.1) L Prostate Specific Antigen 2500.05 ng/mL (0.13-4.0) H Plan Problems: (1) Altered level of consciousness (2) Hypovolemic shock Assessment & Plan: resuscitation extubated monitor respiratory keep hob elevated supplemental O2 Gallbladder demonstrates sludge. No stones, wall thickening, nor pericholecystic fluid. Patient unable to report Wilson's sign Common bile duct measures 3 mm in diameter. No intrahepatic biliary ductal dilatation. Liver demonstrates coarsened echogenicity and surface nodularity. It demonstrates mult iple cysts. Portal vein and hepatic veins are patent. The pancreas demonstrates 3 hypoechoic lesions in the head and body, measuring approximately 5 mm in diameter each. Spleen is unremarkable, poorly visualized. Left kidney measures 11.4 cm in length. Right kidney measures 11.3 cm length. Both kidneys demonstrate normal echogenicity. There is severe right and moderate left hydronephrosis. Echogenic foci are seen in the left renal sinus and collecting system. Bladder is empty, contains a Mathew catheter. Non-aneurysmal abdominal aorta . There are bilateral pleural effusions Impression: Bilateral right greater than left hydronephrosis, increased since prior study of 03/20/2019. Etiology not demonstrated Empty bladder with a Mathew catheter 3 hypoechoic lesions within the pancreatic head and body, each measuring about 5 mm. Appearance nonspecific. Recommend further evaluation with pancreas protocol MRI Bilateral pleural effusions Echogenic liver, consistent with hepatocellular disease. Surface likely nodularity raises concern for cirrhosis Gallbladder sludge. Negative for dilated bile ducts Probable nonobstructive left intrarenal calculi Multiple hepatic cysts (3) Lactic acid acidosis (4) Hypernatremia (5) Paraplegia (6) Anemia Assessment & Plan: no active bleeding noted no large hematoma dressings okay likely related to heme will monitor transfuse prbc with HD trend labs thank you (7) Diabetes (8) Weak (9) HTN (hypertension) (10) ARF (acute renal failure) (11) Hypercalcemia (12) Hyperuricemia (13) Dehydration (14) UTI (urinary tract infection) (15) Failure to thrive in adult Assessment & Plan: patient identified to have DTI on bilateral heels right with 5cm x 4cm area of dti not open no drainage no signs of infection left with 3cm x 2cm. pillow under leg optifoam dressings nutritional optimization will follow no acute surgery DAILY ESTIMATED NEEDS: Needs based on underweight, suspected wt loss, HD, CRITICAL CARE/ 57.6kg 25-33 kcals/kg [id number] total kcals 1.2-2 g protein/kg 69-115 g total protein 25-30 mL/kg 7090-0055 total fluid mLs NUTRITION DIAGNOSIS: *Increased kcal and pro needs r/t underweight status, suspected significant wt loss as evidenced by pt @ 71% IBW w/ BMI 17.2, underweight per guidelines, w/ suspected signficant wt loss of 30lbs/19% in 10 months. * Swallowing difficulty R/T dysphagia, respiratory status as evidenced by s/p NGT insertion (01/08), now NPO, s/p code blue (01/10), orally intubated. CURRENT TF:NPO ENTERAL NUTRITION RECOMMENDATIONS: WHEN HEMODYNAMICALLY STABLE: Nepro @ 40ml/hr x 24 hrs to provide 960ml, 1728kcal, 77g prot, 698ml free water WHEN HEMODYNAMICALLY STABLE AND MEDICALLY APPROPRIATE TO FEED: -> initiate TF @ 5ml/hr x 6hrs, advance slowly 5ml q 4-6 hrs as tolerated to goal rate -> HOB over 30 degrees/ water flush per MD WITHOUT HEMODYNAMIC STABILITY -> If medically appropriate to feed, rec trophic feeding of Nepro @ 5ml/hr x 24 hrs to maintain gut integrity (16) Pelvic mass Assessment & Plan: invasive pelvic mass likely prostate necrotic nodes likely spread recommend colonoscopy given invasion possible to rectum oncology input thank you There is a large pelvic mass which is cephalad to but inseparable from the prostate. This also is inseparable from the posterior wall of the bladder and there appears to be circumferential bladder wall thickening. This mass also appears to involve the seminal vesicles. This measures approximately 8.8 cm transverse by 10 cm craniocaudad by 7.4 cm AP. The periphery of this mass is very lobulated. The mass may also invade the adjacent rectum. There is bilateral iliac chain lymphadenopathy, with nodes measuring up to 3 cm in diameter. Some of these nodes are very low in attenuation indicating that they are necrotic. There is also retroperitoneal lymphadenopathy. There is severe right and moderate left hydronephrosis and bilateral hydroureter. The dilated ureters terminate at the level of the mass. No intrinsic renal parenchymal abnormality. The pancreas is unremarkable. No findings corresponding to the areas of low-attenuation described on prior sonogram are evident. No pancreatic ductal dilatation is evident. The liver demonstrates multiple cysts. The gallbladder, bile ducts, spleen, adrenals are unremarkable. The bones demonstrate diffuse involvement with multiple mixed osteolytic/osteosclerotic lesions, mostly sclerotic component predominating. There is a right groin dialysis catheter in place, tip at the level of the iliac venous confluence. There is a nasogastric tube,, tip in the stomach. There is a Mathew catheter. There is a rectal tube lying outside the patient with the balloon inflated within the inner gluteal fold. There are bilateral pleural effusions. There is compressive atelectasis of most if not all of both lower lobes. 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 Compressive atelectasis of most of not all of both lower lobes Other findings as noted, including multiple liver cysts Lázaro Jenkins Jan 26, 2020 12:55
[2020-01-26] MEDS: D5 1/2NS 1,000 ML IV SCH (15:40)
--- NOTE | 2020-01-26 16:36 | General Progress Note ---
Subjective Allergies: Coded Allergies: No Known Allergies (Unverified , 03/18/19) Subjective above noted patient unresponsive (+) O2 face mask rectal tube --> diarrhea Objective Last 24 Hour Vital Signs Date Time Temp Pulse Resp B/P (MAP) Pulse Ox O2 Delivery O2 Flow Rate FiO2 01/26/20 12:00 2.0 24 01/26/20 12:00 Venturi Mask 2.0 01/26/20 12:00 97.3 95 22 122/75 (91) 93 01/26/20 12:00 95 01/26/20 08:00 98.4 94 20 126/77 (93) 94 01/26/20 08:00 94 01/26/20 08:00 Venturi Mask 2.0 01/26/20 08:00 2.0 24 01/26/20 06:00 96 19 109/67 (81) 97 01/26/20 05:00 95 19 137/67 (90) 99 01/26/20 04:00 2.0 24 01/26/20 04:00 91 20 149/81 (103) 96 01/26/20 04:00 91 01/26/20 04:00 Venturi Mask 2.0 01/26/20 03:00 99 23 158/84 (108) 96 01/26/20 02:00 95 20 153/76 (101) 97 01/26/20 01:00 100 22 151/82 (105) 96 01/26/20 00:00 2.0 24 01/26/20 00:00 99 01/26/20 00:00 Venturi Mask 2.0 01/26/20 00:00 97.9 99 21 148/81 (103) 96 01/25/20 23:00 96 20 142/75 (97) 97 01/25/20 22:00 95 20 144/75 (98) 97 01/25/20 21:00 94 20 138/77 (97) 96 01/25/20 20:00 Venturi Mask 2.0 01/25/20 20:00 96.9 90 18 134/76 (95) 97 01/25/20 19:28 96 Venturi Mask 2.0 24 01/25/20 19:00 89 17 115/65 (82) 100 01/25/20 18:00 95 19 135/80 (98) 99 01/25/20 17:00 91 18 140/77 (98) 99 Intake and Output 01/25/20 01/26/20 19:00 07:00 Intake Total 1090 ml 1021 ml Output Total 925 ml 600 ml Balance 165 ml 421 ml IV Total 720 ml 661 ml Tube Feeding 190 ml 360 ml Other 180 ml Output Urine Total 875 ml 600 ml Stool Total 50 ml Laboratory Tests 01/25/20 18:30: POC Whole Blood Glucose 108H 01/26/20 05:10: White Blood Count 4.2L, Red Blood Count 3.59L, Hemoglobin 10.3L, Hematocrit 33.1L, Mean Corpuscular Volume 92, Mean Corpuscular Hemoglobin 28.6, Mean Corpuscular Hemoglobin Concent 31.0L, Red Cell Distribution Width 20.4H, Platelet Count 150, Mean Platelet Volume 7.0, Neutrophils (%) (Auto) 71.5, Lymphocytes (%) (Auto) 17.2L, Monocytes (%) (Auto) 8.8, Eosinophils (%) (Auto) 1.4, Basophils (%) (Auto) 1.0, Sodium Level 137, Potassium Level 3.7, Chloride Level 108H, Carbon Dioxide Level 18L, Anion Gap 11, Blood Urea Nitrogen 15, Creatinine 0.9, Estimat Glomerular Filtration Rate > 60, Glucose Level 124H, Calcium Level 7.8L, Prostate Specific Antigen 2500.05H Height (Feet): 6 Height (Inches): 0.00 Weight (Pounds): 150 Objective elderly man NCAT, O2 face mask supple CTA RR abd soft NT ND no edema OBS Assessment/Plan Status: unchanged Assessment/Plan: Assessment - dysphagia, NGT dependent - respiratory failure - azotemia - OBS - poor px Recommendations - NGT feeds - Elevate HOB - follow labs and exam - will place PEG once stable Ameya Zaragoza MD Jan 26, 2020 16:36
--- NOTE | 2020-01-26 21:13 | Cardiac Electrophysiology PN ---
Assessment/Plan Assessment/Plan 1. Altered mental status due to severe dehydration in view of sodium of 160 and acute renal failure. On IV fluids and IV antibiotics. Ruled out for ND. 2. S/P Septic shock off Levophed and on iv Abx On Midodrine 10 tid 3. History of CVA, off Plavix in view of hematuria. 4. Respiratory failure, Extubated 01/22 5. Diabetes. 6. Acute renal failure. Cr 4.2. Had HD once only on 01/11/20. No more HD needed and Cr 1.2 7. Hematuria 8. Anemia with Hb 5.8 and coffee ground emesis. FU Dr Bueno 9. Shock liver with increase AST>2000 10. Pancreatic mass x3. CT abdomen and pelvis showed Large pelvic mass involving the prostate, bladder presumably representing prostatic malignancy 11. Dysphagia, NGT feeding. PEG pending ethics consent KARLO RN Subjective Subjective Coded 01/19 for respiratory failure followed by bradycardia and PEA. Extubated 01/23/20. On Venturi Mask 2 liter NC EGD/PEG pending ethics consent Objective Last 24 Hour Vital Signs Date Time Temp Pulse Resp B/P (MAP) Pulse Ox O2 Delivery O2 Flow Rate FiO2 01/26/20 20:54 97 Venturi Mask 2.0 24 01/26/20 16:00 95 01/26/20 16:00 2.0 24 01/26/20 16:00 Venturi Mask 2.0 01/26/20 12:00 2.0 24 01/26/20 12:00 Venturi Mask 2.0 01/26/20 12:00 97.3 95 22 122/75 (91) 93 01/26/20 12:00 95 01/26/20 08:00 98.4 94 20 126/77 (93) 94 01/26/20 08:00 94 01/26/20 08:00 Venturi Mask 2.0 01/26/20 08:00 2.0 24 01/26/20 06:00 96 19 109/67 (81) 97 01/26/20 05:00 95 19 137/67 (90) 99 01/26/20 04:00 2.0 24 01/26/20 04:00 91 20 149/81 (103) 96 01/26/20 04:00 91 01/26/20 04:00 Venturi Mask 2.0 01/26/20 03:00 99 23 158/84 (108) 96 01/26/20 02:00 95 20 153/76 (101) 97 01/26/20 01:00 100 22 151/82 (105) 96 01/26/20 00:00 2.0 24 01/26/20 00:00 99 01/26/20 00:00 Venturi Mask 2.0 01/26/20 00:00 97.9 99 21 148/81 (103) 96 01/25/20 23:00 96 20 142/75 (97) 97 01/25/20 22:00 95 20 144/75 (98) 97 Intake and Output 01/25/20 01/26/20 19:00 07:00 Intake Total 1090 ml 1021 ml Output Total 925 ml 600 ml Balance 165 ml 421 ml IV Total 720 ml 661 ml Tube Feeding 190 ml 360 ml Other 180 ml Output Urine Total 875 ml 600 ml Stool Total 50 ml Laboratory Tests Test 01/26/20 05:10 White Blood Count 4.2 K/UL (4.8-10.8) L Red Blood Count 3.59 M/UL (4.70-6.10) L Hemoglobin 10.3 G/DL (14.2-18.0) L Hematocrit 33.1 % (42.0-52.0) L Mean Corpuscular Volume 92 FL (80-99) Mean Corpuscular Hemoglobin 28.6 PG (27.0-31.0) Mean Corpuscular Hemoglobin Concent 31.0 G/DL (32.0-36.0) L Red Cell Distribution Width 20.4 % (11.6-14.8) H Platelet Count 150 K/UL (150-450) Mean Platelet Volume 7.0 FL (6.5-10.1) Neutrophils (%) (Auto) 71.5 % (45.0-75.0) Lymphocytes (%) (Auto) 17.2 % (20.0-45.0) L Monocytes (%) (Auto) 8.8 % (1.0-10.0) Eosinophils (%) (Auto) 1.4 % (0.0-3.0) Basophils (%) (Auto) 1.0 % (0.0-2.0) Sodium Level 137 MMOL/L (136-145) Potassium Level 3.7 MMOL/L (3.5-5.1) Chloride Level 108 MMOL/L (98-107) H Carbon Dioxide Level 18 MMOL/L (21-32) L Anion Gap 11 mmol/L (5-15) Blood Urea Nitrogen 15 mg/dL (7-18) Creatinine 0.9 MG/DL (0.55-1.30) Estimat Glomerular Filtration Rate > 60 mL/min (>60) Glucose Level 124 MG/DL (74-106) H Calcium Level 7.8 MG/DL (8.5-10.1) L Prostate Specific Antigen 2500.05 ng/mL (0.13-4.0) H Objective HEAD AND NECK: NGT in place LUNGS: Coarse rhonchi. CARDIOVASCULAR: Regular S1 and S2 with no gallop. ABDOMEN: Soft. EXTREMITIES: No pitting edema. Kevin Lopez MD Jan 26, 2020 21:13
[2020-01-26] MEDS: Miralax 17gm pkt NG SCH (22:14)
[2020-01-26] MEDS: Dyna-Hex 2% Top Sol 2oz TOPIC SCH (22:14)
[2020-01-26] MEDS: Sennosides 8.6mg tab NG SCH (22:14)
[2020-01-27] VITALS: BP 133/78
[2020-01-27] MEDS: Metoclopramide 10mg/10ml Liq NG SCH ×5 (00:30→23:23)
[2020-01-27] MEDS: Midodrine 10mg tab NG SCH ×3 (06:44→21:46)
[2020-01-27 08:00] VITALS: BP 166/77
[2020-01-27] MEDS: Vitamin D 1000 IU Tab GT SCH (09:37)
[2020-01-27] MEDS: D5 1/2NS 1,000 ML IV SCH ×2 (09:38→23:40)
[2020-01-27] MEDS: Pantoprazole Inj IVP SCH ×2 (09:38→20:18)
--- NOTE | 2020-01-27 10:07 | Pulmonology Progress Note ---
Subjective ROS Limited/Unobtainable: Yes Interval Events: Now on 2L/min O2 Constitutional: Reports: no symptoms HEENT: Repors: no symptoms Respiratory: Reports: no symptoms Cardiovascular: Reports: no symptoms Gastrointestinal/Abdominal: Reports: no symptoms Genitourinary: Reports: no symptoms Allergies: Coded Allergies: No Known Allergies (Unverified , 03/18/19) All Systems: reviewed and negative except above Objective Last 24 Hour Vital Signs Date Time Temp Pulse Resp B/P (MAP) Pulse Ox O2 Delivery O2 Flow Rate FiO2 01/27/20 04:00 97 01/27/20 02:07 Venturi Mask 2.0 01/27/20 00:00 112 01/27/20 00:00 97.9 101 22 133/78 (96) 94 01/26/20 22:43 98.1 109 24 140/84 (102) 94 01/26/20 20:54 97 Venturi Mask 2.0 24 01/26/20 20:00 109 01/26/20 16:00 95 01/26/20 16:00 2.0 24 01/26/20 16:00 Venturi Mask 2.0 01/26/20 12:00 2.0 24 01/26/20 12:00 Venturi Mask 2.0 01/26/20 12:00 97.3 95 22 122/75 (91) 93 01/26/20 12:00 95 Intake and Output 01/26/20 01/27/20 19:00 07:00 Output Total 300 ml 500 ml Balance -300 ml -500 ml Output Urine Total 300 ml 500 ml General Appearance: no acute distress HEENT: normocephalic Respiratory: chest wall non-tender, lungs clear Cardiovascular: normal peripheral pulses, normal rate Abdomen: normal bowel sounds Current Medications Medications (Trade) Dose Ordered Sig/Jesse Route PRN Reason Start Time Stop Time Status Last Admin Dose Admin Acetaminophen (Tylenol) 650 mg Q4H PRN ORAL PRNH/TEMP 01/05/20 20:15 02/04/20 20:14 01/12/20 03:10 Bisacodyl (Dulcolax) 10 mg DAILY PRN RECTAL Constipation 01/05/20 20:15 04/04/20 20:14 Chlorhexidine Gluconate (Navya-Hex 2%) 1 applic DAILY@1999 TOPIC 01/11/20 20:00 04/10/20 19:59 01/26/20 22:14 Dextrose (Dextrose 50%) 25 ml Q30M PRN IV Hypoglycemia 01/05/20 20:15 04/04/20 20:14 01/24/20 23:53 Dextrose (Dextrose 50%) 50 ml Q30M PRN IV Hypoglycemia 01/05/20 20:15 04/04/20 20:14 Dextrose/Sodium Chloride 1,000 ml @ 60 mls/hr [id number] IV 01/24/20 13:30 02/23/20 13:29 01/27/20 09:38 Linaclotide (Linzess) 290 mcg BEFORE BREAKFAST ORAL 01/10/20 06:30 04/09/20 06:29 01/27/20 06:44 Metoclopramide HCl (Reglan) 10 mg EVERY 6 HOURS NG 01/19/20 12:00 02/18/20 11:59 01/27/20 06:44 Metoclopramide HCl (Reglan) 10 mg Q6H PRN IVP Nausea & Vomiting 01/16/20 13:00 02/15/20 12:59 Midodrine (Pro-Amatine) 10 mg Q8HR NG 01/20/20 22:00 04/13/20 17:59 01/27/20 06:44 Ondansetron HCl (Zofran) 4 mg Q6H PRN IVP Nausea & Vomiting 01/10/20 06:30 02/09/20 06:29 Pantoprazole (Protonix) 40 mg EVERY 12 HOURS IVP 01/20/20 21:00 02/19/20 20:59 01/27/20 09:38 Polyethylene Glycol (Miralax) 17 gm BEDTIME NG 01/11/20 21:00 02/08/20 20:59 01/26/20 22:14 Sennosides (Senokot) 8.6 mg QHS NG 01/11/20 21:00 02/04/20 20:59 01/26/20 22:14 Vitamin D (Vitamin D) 3,000 intlu DAILY GT 01/19/20 12:00 02/18/20 11:59 01/27/20 09:37 Assessment/Plan Assessment/Plan IMPRESSION: 1. Severe metabolic acidosis. Corrected; now has combined respiratory and metabolic alkalosis 2. Respiratory failure; now extubated 3. Diarrhea. Resolved 4. Acute renal failure. Nephrology following; 5. Anemia; DISCUSSION: EGD and PEG scheduled Remains obtunded Saturating well on 2L/min O2 Daxa Infante Omar Syed MD Jan 27, 2020 10:07
--- NOTE | 2020-01-27 10:13 | Hematology/Onc Progress Note ---
Assessment/Plan Assessment/Plan Assessment/Recs # Metastatic prostate cancer -- w psa 2741, has a Large pelvic mass as described involving the prostate, bladder, seminal vesicles, presumably representing prostatic malignancy --> CT Evidence of disseminated malignancy, with extensive lymphadenopathy of and evidenc of diffuse osseous metastases Severe right and moderate left hydronephrosis and bilateral hydroureter, due to ureteral obstruction by the above mass --> tumor markers ordered, psa 2741 --> after above reviewed, consider further biopsy of prostate with uro as needed # Pancytopenia with initially Anemia due to underlying chronic medical issues, multifactorial v Gi bleed v malignancy --> Anemia workup has been ordered, rule out gi bleed --> No evidence of hemolysis is noted, peripheral smear has been reviewed. --> Hgb goal >7. Transfuse prn. --> Epogen or iron at this time is not particularly indicated --> Medications have been reviewed --> low threshold for gi evaluation in case has occult + --> hgb 10-->9.7-->9.2->10-->8.6-->7.7-->5-->8.3->9.3->7.8-->8.2-->8.1-->9.3-->9.9->10 --> 11/8 flow cytometry ordered bc of nucleated cells on smear-->neg --> wbc 5-->4-->3.9-->4 --> plt 150-->98-->82-->51->49-->46-->50-->68-->88-->109 --> hep and hiv panel--NEG --> us abd-->shows 3 small lesions, requires further eval --> CT a/p reviewed # Multiple lesions noted in pancreas --> MRI abd ordered--> nondiagnostic --> CT of the abd reviewed # Protein caloric malnutrition --> daily calorie counts --> daily weights --> mirtazapine started # Acute renal failure --> continue on ivfs --> as per renal # Hypokalemia --> replete with K # Severe dehydration --> ivfs ongoing # Hypernatremia indicative of severe water deficit # Severe hyperuricemia, partly due to dehydration and renal failure # Acute metabolic and toxic encephalopathy # Mild, malnutrition # Psych issues per psych # Lactic acid, possible sepsis # Dvt ppx heparin sq->Scds The timing of this note does not necessarily reflect the time of the patient was seen. Greatly appreciate consultation. Subjective Constitutional: Denies: no symptoms, chills, fever, malaise, weakness, other HEENT: Denies: no symptoms, eye pain, blurred vision, tearing, double vision, ear pain, ear discharge, nose pain, nose congestion, throat pain, throat swell ing, mouth pain, mouth swelling, other Cardiovascular: Denies: no symptoms, chest pain, edema, irregular heart rate, lightheadedness, palpitations, syncope, other Respiratory: Denies: no symptoms, cough, shortness of breath, SOB with excertion, SOB at rest, sputum, wheezing, other Neurologic/Psychiatric: Denies: no symptoms, anxiety, depressed, emotional problems, headache, numbness, paresthesia, pre-existing deficit, seizure, tingling, tremors, weakness, other Endocrine: Denies: no symptoms, excessive sweating, flushing, intolerance to cold, intolerance to heat, increased hunger, increased thirst, increased urine, unexplained weight gain, unexplained weight loss, other Allergies: Coded Allergies: No Known Allergies (Unverified , 03/18/19) Subjective 01/07 meds noted, no bleeding, hgb 10, no hemolysis, hgb 10.1 01/08 labs reviewed, vi solis, no major events, no bleeding, hgb lower 01/09 labs noted, no bleeding, vi solis, no major changes, plt lower 01/10 did have epistaxis overnight, no bleeding, night sweats, epistaxis better 01/12 icu, remains on vent, levo, no bleeding, meds noted 01/13 remains in icu, no bleeding, on levo, no major changes 01/14 icu, is on 1l, restarints are off, no bleeding, no night sweats 01/15 icu, meds noted, with diarrhea, rectal tube reinserted, on nc 01/16 out of icu, no bleeding, meds reviewed, cbc ad bmp pending 01/17 unable to lay still for the mri, thus ct ordered, vi solis 01/19 hgb 6.9, no bleeding, no hemolysis, ct reviewed 01/20 obtunded, meds reviewed, hgb is better, in icu 01/21 obtunded, npo, labs hjave been reviewed, hgb 9.2 01/22 obtunded, in icu, no bleeding, plt 109 01/23 obtunded still icu, on venturimask, meds reviewed, labs noted 01/24 obtunded, in icu, labs reviewed, meds noted, wbc 4.1, plt 133 01/26 is out of the icu, no bleeding, meds noted, labs ordered Objective Objective Current Medications Medications (Trade) Dose Ordered Sig/Jesse Route PRN Reason Start Time Stop Time Status Last Admin Dose Admin Acetaminophen (Tylenol) 650 mg Q4H PRN ORAL PRNH/TEMP 01/05/20 20:15 02/04/20 20:14 01/12/20 03:10 Bisacodyl (Dulcolax) 10 mg DAILY PRN RECTAL Constipation 01/05/20 20:15 04/04/20 20:14 Chlorhexidine Gluconate (Navya-Hex 2%) 1 applic DAILY@2000 TOPIC 01/11/20 20:00 04/10/20 19:59 01/26/20 22:14 Dextrose (Dextrose 50%) 25 ml Q30M PRN IV Hypoglycemia 01/05/20 20:15 04/04/20 20:14 01/24/20 23:53 Dextrose (Dextrose 50%) 50 ml Q30M PRN IV Hypoglycemia 01/05/20 20:15 04/04/20 20:14 Dextrose/Sodium Chloride 1,000 ml @ 60 mls/hr [id number] IV 01/24/20 13:30 02/23/20 13:29 01/27/20 09:38 Linaclotide (Linzess) 290 mcg BEFORE BREAKFAST ORAL 01/10/20 06:30 04/09/20 06:29 01/27/20 06:44 Metoclopramide HCl (Reglan) 10 mg EVERY 6 HOURS NG 01/19/20 12:00 02/18/20 11:59 01/27/20 06:44 Metoclopramide HCl (Reglan) 10 mg Q6H PRN IVP Nausea & Vomiting 01/16/20 13:00 02/15/20 12:59 Midodrine (Pro-Amatine) 10 mg Q8HR NG 01/20/20 22:00 04/13/20 17:59 01/27/20 06:44 Ondansetron HCl (Zofran) 4 mg Q6H PRN IVP Nausea & Vomiting 01/10/20 06:30 02/09/20 06:29 Pantoprazole (Protonix) 40 mg EVERY 12 HOURS IVP 01/20/20 21:00 02/19/20 20:59 01/27/20 09:38 Polyethylene Glycol (Miralax) 17 gm BEDTIME NG 01/11/20 21:00 02/08/20 20:59 01/26/20 22:14 Sennosides (Senokot) 8.6 mg QHS NG 01/11/20 21:00 02/04/20 20:59 01/26/20 22:14 Vitamin D (Vitamin D) 3,000 intlu DAILY GT 01/19/20 12:00 02/18/20 11:59 01/27/20 09:37 Last 24 Hour Vital Signs Date Time Temp Pulse Resp B/P (MAP) Pulse Ox O2 Delivery O2 Flow Rate FiO2 01/27/20 04:00 97 01/27/20 02:07 Venturi Mask 2.0 01/27/20 00:00 112 01/27/20 00:00 97.9 101 22 133/78 (96) 94 01/26/20 22:43 98.1 109 24 140/84 (102) 94 01/26/20 20:54 97 Venturi Mask 2.0 24 01/26/20 20:00 109 01/26/20 16:00 95 01/26/20 16:00 2.0 24 01/26/20 16:00 Venturi Mask 2.0 01/26/20 12:00 2.0 24 01/26/20 12:00 Venturi Mask 2.0 01/26/20 12:00 97.3 95 22 122/75 (91) 93 01/26/20 12:00 95 01/26/20 08:00 98.4 94 20 126/77 (93) 94 01/26/20 08:00 94 01/26/20 08:00 Venturi Mask 2.0 01/26/20 08:00 2.0 24 01/26/20 06:00 96 19 109/67 (81) 97 01/26/20 05:00 95 19 137/67 (90) 99 01/26/20 04:00 2.0 24 01/26/20 04:00 91 20 149/81 (103) 96 01/26/20 04:00 91 01/26/20 04:00 Venturi Mask 2.0 01/26/20 03:00 99 23 158/84 (108) 96 01/26/20 02:00 95 20 153/76 (101) 97 01/26/20 01:00 100 22 151/82 (105) 96 01/26/20 00:00 2.0 24 01/26/20 00:00 99 01/26/20 00:00 Venturi Mask 2.0 01/26/20 00:00 97.9 99 21 148/81 (103) 96 01/25/20 23:00 96 20 142/75 (97) 97 01/25/20 22:00 95 20 144/75 (98) 97 01/25/20 21:00 94 20 138/77 (97) 96 01/25/20 20:00 Venturi Mask 2.0 01/25/20 20:00 96.9 90 18 134/76 (95) 97 01/25/20 19:28 96 Venturi Mask 2.0 24 01/25/20 19:00 89 17 115/65 (82) 100 01/25/20 18:00 95 19 135/80 (98) 99 01/25/20 17:00 91 18 140/77 (98) 99 01/25/20 16:00 Venturi Mask 2.0 01/25/20 16:00 2.0 24 01/25/20 16:00 97.9 93 17 132/72 (92) 98 01/25/20 16:00 93 01/25/20 15:00 92 16 122/79 (93) 96 01/25/20 14:00 88 16 146/82 (103) 100 01/25/20 13:00 93 16 116/74 (88) 100 01/25/20 12:00 2.0 24 01/25/20 12:00 Venturi Mask 2.0 01/25/20 12:00 97.9 90 18 114/72 (86) 100 01/25/20 12:00 92 01/25/20 11:00 88 16 124/73 (90) 100 Intake and Output 01/26/20 01/27/20 19:00 07:00 Output Total 300 ml 500 ml Balance -300 ml -500 ml Output Urine Total 300 ml 500 ml Labs Test 01/24/20 10:45 01/24/20 23:21 01/25/20 01:56 01/25/20 04:00 Arterial Blood pH 7.459 (7.350-7.450) Arterial Blood Partial Pressure CO2 23.1 mmHg (35.0-45.0) Arterial Blood Partial Pressure O2 127.3 mmHg (75.0-100.0) Arterial Blood HCO3 16.0 mmol/L (22.0-26.0) Arterial Blood Oxygen Saturation 98.2 % (95-100) Arterial Blood Base Excess -6.5 (-2-2) Asael Test Positive White Blood Count 4.1 K/UL (4.8-10.8) Red Blood Count 3.72 M/UL (4.70-6.10) Hemoglobin 10.6 G/DL (14.2-18.0) Hematocrit 34.8 % (42.0-52.0) Mean Corpuscular Volume 93 FL (80-99) Mean Corpuscular Hemoglobin 28.4 PG (27.0-31.0) Mean Corpuscular Hemoglobin Concent 30.3 G/DL (32.0-36.0) Red Cell Distribution Width 21.2 % (11.6-14.8) Platelet Count 133 K/UL (150-450) Mean Platelet Volume 7.0 FL (6.5-10.1) Neutrophils (%) (Auto) 70.0 % (45.0-75.0) Lymphocytes (%) (Auto) 14.3 % (20.0-45.0) Monocytes (%) (Auto) 12.4 % (1.0-10.0) Eosinophils (%) (Auto) 1.4 % (0.0-3.0) Basophils (%) (Auto) 1.9 % (0.0-2.0) Sodium Level 142 MMOL/L (136-145) Potassium Level 4.0 MMOL/L (3.5-5.1) Chloride Level 110 MMOL/L (98-107) Carbon Dioxide Level 20 MMOL/L (21-32) Anion Gap 12 mmol/L (5-15) Blood Urea Nitrogen 18 mg/dL (7-18) Creatinine 1.2 MG/DL (0.55-1.30) Estimat Glomerular Filtration Rate > 60 mL/min (>60) Glucose Level 92 MG/DL (74-106) Calcium Level 8.2 MG/DL (8.5-10.1) Test 01/25/20 05:45 01/25/20 18:30 01/26/20 05:10 POC Whole Blood Glucose 108 MG/DL (74-106) White Blood Count 4.2 K/UL (4.8-10.8) Red Blood Count 3.59 M/UL (4.70-6.10) Hemoglobin 10.3 G/DL (14.2-18.0) Hematocrit 33.1 % (42.0-52.0) Mean Corpuscular Volume 92 FL (80-99) Mean Corpuscular Hemoglobin 28.6 PG (27.0-31.0) Mean Corpuscular Hemoglobin Concent 31.0 G/DL (32.0-36.0) Red Cell Distribution Width 20.4 % (11.6-14.8) Platelet Count 150 K/UL (150-450) Mean Platelet Volume 7.0 FL (6.5-10.1) Neutrophils (%) (Auto) 71.5 % (45.0-75.0) Lymphocytes (%) (Auto) 17.2 % (20.0-45.0) Monocytes (%) (Auto) 8.8 % (1.0-10.0) Eosinophils (%) (Auto) 1.4 % (0.0-3.0) Basophils (%) (Auto) 1.0 % (0.0-2.0) Sodium Level 137 MMOL/L (136-145) Potassium Level 3.7 MMOL/L (3.5-5.1) Chloride Level 108 MMOL/L (98-107) Carbon Dioxide Level 18 MMOL/L (21-32) Anion Gap 11 mmol/L (5-15) Blood Urea Nitrogen 15 mg/dL (7-18) Creatinine 0.9 MG/DL (0.55-1.30) Estimat Glomerular Filtration Rate > 60 mL/min (>60) Glucose Level 124 MG/DL (74-106) Calcium Level 7.8 MG/DL (8.5-10.1) Prostate Specific Antigen 2500.05 ng/mL (0.13-4.0) Height (Feet): 6 Height (Inches): 0.00 Weight (Pounds): 150 Objective PE: Vitals: reviewed General Appearance: NAD HEENT: normocephalic, atraumatic Neck: non-tender, normal alignment Respiratory/Chest: nromal breath sounds bilaterally Cardiovascular/Chest: normal peripheral pulses, normal rate Abdomen: normal bowel sounds, soft, nontender Extremities: normal range of motion Samuel Son MD Jan 27, 2020 10:13
--- NOTE | 2020-01-27 11:30 | General Progress Note ---
Subjective ROS Limited/Unobtainable: Yes Allergies: Coded Allergies: No Known Allergies (Unverified , 03/18/19) Objective Last 24 Hour Vital Signs Date Time Temp Pulse Resp B/P (MAP) Pulse Ox O2 Delivery O2 Flow Rate FiO2 01/27/20 04:00 97 01/27/20 02:07 Venturi Mask 2.0 01/27/20 00:00 112 01/27/20 00:00 97.9 101 22 133/78 (96) 94 01/26/20 22:43 98.1 109 24 140/84 (102) 94 01/26/20 20:54 97 Venturi Mask 2.0 24 01/26/20 20:00 109 01/26/20 16:00 95 01/26/20 16:00 2.0 24 01/26/20 16:00 Venturi Mask 2.0 01/26/20 12:00 2.0 24 01/26/20 12:00 Venturi Mask 2.0 01/26/20 12:00 97.3 95 22 122/75 (91) 93 01/26/20 12:00 95 Intake and Output 01/26/20 01/27/20 19:00 07:00 Output Total 300 ml 500 ml Balance -300 ml -500 ml Output Urine Total 300 ml 500 ml Height (Feet): 6 Height (Inches): 0.00 Weight (Pounds): 150 Assessment/Plan Problem List: (1) Altered level of consciousness ICD Codes: R40.4 - Transient alteration of awareness SNOMED: 3947307 (2) Hypernatremia ICD Codes: E87.0 - Hyperosmolality and hypernatremia SNOMED: 912931888 (3) Paraplegia ICD Codes: G82.20 - Paraplegia, unspecified SNOMED: 19149973 (4) Anemia ICD Codes: D64.9 - Anemia, unspecified SNOMED: 259261576 (5) Diabetes ICD Codes: E11.9 - Type 2 diabetes mellitus without complications SNOMED: 16893544 (6) HTN (hypertension) ICD Codes: I10 - Essential (primary) hypertension SNOMED: 97415009 (7) ARF (acute renal failure) ICD Codes: N17.9 - Acute kidney failure, unspecified SNOMED: 82561801 (8) Dehydration ICD Codes: E86.0 - Dehydration SNOMED: 04138008 (9) UTI (urinary tract infection) ICD Codes: N39.0 - Urinary tract infection, site not specified SNOMED: 82726348 (10) Failure to thrive in adult ICD Codes: R62.7 - Adult failure to thrive SNOMED: 092710915 Status: unchanged Assessment/Plan: dm htn check lytes afebrile no sob azotemia reviewed chart and labs and meds dehydration ams/confused Juan Diego Randall MD Jan 27, 2020 11:30
[2020-01-27 11:38] VITALS: BP 127/77
--- NOTE | 2020-01-27 12:53 | Nephrology Progress Note ---
Assessment/Plan Problem List: (1) ARF (acute renal failure) (2) Hypernatremia (3) Hypovolemic shock (4) Altered level of consciousness (5) Hypercalcemia (6) Hyperuricemia (7) Pelvic mass Assessment: Prostate cancer Assessment Acute renal failure Possible underlying chronic kidney failure Severe dehydration Hypernatremia indicative of severe water deficit Severe hyperuricemia, partly due to dehydration and renal failure Acute metabolic and toxic encephalopathy Mild, malnutrition Anemia Lactic acid, possible sepsis Hypercalcemia Plan January 26: No labs drawn today. Status quo. Continue per consultants. Will check renal parameters tomorrow. January 25: Renal parameters stable. On Venturi mask. Continue per current management. January 24: Renal parameters stable. On Venturi mask. Discussed with RN. Due for PEG insertion today. January 23: Stable from renal standpoint of view. On Venturi mask. Low magnesium addressed. Continue per consultants. January 22: Patient off pressors. Patient extubated. Labs reviewed. Renal parameters are stable. January 21: Patient on low-dose pressors. Remains hypotensive. Renal parameters stable. Weaning trial in process. Mental status remains poor. January 20: Patient in ICU. Intubated. Full code. Has advanced prostate can cer. On IV Lasix drip. Low magnesium and low phosphorus and low potassium noted and addressed. Continue per consultants. January 19: Patient in ICU. Intubated. Was coded yesterday. Labs reviewed. Medication list reviewed and adjusted. Continue per consultants. Patient full code. Prognosis poor. PSA over 2700 January 18: Labs reviewed. IV fluid discontinued. IV calcium dose decreased. Midodrine dose decreased. Reglan and Protonix changed to GT route. Vitamin D initiated. Continue to monitor renal parameters and calcium level. January 17: Labs reviewed. Abnormal electrolyte addressed. Continue per consultants. January 16: Patient now in telemetry. Labs pending. Continue to monitor renal parameters. Continue per consultants. January 15: Still in ICU. Doing well post extubation. Renal parameters improving. Not requiring any more dialysis treatment after the first dialysis treatment. Medications reviewed. Continue per consultants. January 14: Remains in ICU. Tolerating extubation. Labs reviewed. Abnormal electrolytes addressed. Serum creatinine lowering. Continue per current manage ment. Stop Phos binders. Increase calcium IV. January 13: In ICU. Now extubated. Only dialyzed once. Urine output maintaine d. Serum creatinine down to 2.5. Patient has NG tube. Continue to monitor renal parameters. Continue per consultants. Abnormal electrolytes addressed. January 12: Remains in ICU. Intubated. Transfused yesterday. Abnormal electrolytes addressed. Dialyzed once January 10. Serum creatinine stable. Will adjust IV fluid. Monitor renal parameters. Dialysis as needed. Calcium gluconate IV ordered. Ionized calcium level ordered with tomorrow's labs. January 11: Patient in ICU. Intubated. On Levophed. Hemoglobin low. Due for transfusion. Electrolyte abnormalities noted and addressed. Patient was dialyzed yesterday. Will check lab tomorrow. Dialysis as needed. Discussed with SELIN Srivastava. January 10: Patient is doing poorly. Blood pressure low. ABG abnormal with metabolic acidosis. IV sodium bicarb given. Serum creatinine reno. Patient has acute renal failure. Nontunneled dialysis catheter replacement ordered.. Patient need life saving dialysis treatment SRINIVAS. January 09: Labs reviewed. IV D5 and a half with sodium bicarb initiated. Serum creatinine higher. Continue to monitor renal parameters. NG feeding was changed to Nepro. Patient remains full code. Poor prognosis. January 08: Labs reviewed. IV D5W discontinued. 500 cc 3% saline ordered. NG tube for feeding and for medications. Allopurinol dose increased. Continue to monitor renal parameters serum calcium and phosphorus. January 07: Labs reviewed. Serum calcium remains elevated. Uric acid still elevated. Will give pamidronate 60 mg IV piggyback once for hypercalcemia. Continue to monitor renal parameters. Continue D5W 150 cc an hour. Start Bicitra 30 cc p.o. every 6 hours. Add allopurinol D5W IV hydration Albumin bolus N.p.o. until able to take p.o. Antibiotics Monitor renal parameters monitor calcium, monitor uric acid Subjective ROS Limited/Unobtainable: Yes Constitutional: Reports: malaise Objective Objective Last 24 Hour Vital Signs Date Time Temp Pulse Resp B/P (MAP) Pulse Ox O2 Delivery O2 Flow Rate FiO2 01/27/20 11:38 96.6 105 24 127/77 (94) 95 01/27/20 08:00 98.4 103 24 166/77 (106) 98 01/27/20 08:00 108 01/27/20 04:00 97 01/27/20 02:07 Venturi Mask 2.0 01/27/20 00:00 112 01/27/20 00:00 97.9 101 22 133/78 (96) 94 01/26/20 22:43 98.1 109 24 140/84 (102) 94 01/26/20 20:54 97 Venturi Mask 2.0 24 01/26/20 20:00 109 01/26/20 16:00 95 01/26/20 16:00 2.0 24 01/26/20 16:00 Venturi Mask 2.0 Intake and Output 01/26/20 01/27/20 19:00 07:00 Output Total 300 ml 500 ml Balance -300 ml -500 ml Output Urine Total 300 ml 500 ml Current Medications Medications (Trade) Dose Ordered Sig/Jesse Route PRN Reason Start Time Stop Time Status Last Admin Dose Admin Acetaminophen (Tylenol) 650 mg Q4H PRN ORAL PRNH/TEMP 01/05/20 20:15 02/04/20 20:14 01/12/20 03:10 Bisacodyl (Dulcolax) 10 mg DAILY PRN RECTAL Constipation 01/05/20 20:15 04/04/20 20:14 Chlorhexidine Gluconate (Navya-Hex 2%) 1 applic DAILY@2000 TOPIC 01/11/20 20:00 04/10/20 19:59 01/26/20 22:14 Dextrose (Dextrose 50%) 25 ml Q30M PRN IV Hypoglycemia 01/05/20 20:15 04/04/20 20:14 01/24/20 23:53 Dextrose (Dextrose 50%) 50 ml Q30M PRN IV Hypoglycemia 01/05/20 20:15 04/04/20 20:14 Dextrose/Sodium Chloride 1,000 ml @ 60 mls/hr [id number] IV 01/24/20 13:30 02/23/20 13:29 01/27/20 09:38 Linaclotide (Linzess) 290 mcg BEFORE BREAKFAST ORAL 01/10/20 06:30 04/09/20 06:29 01/27/20 06:44 Metoclopramide HCl (Reglan) 10 mg EVERY 6 HOURS NG 01/19/20 12:00 02/18/20 11:59 01/27/20 12:15 Metoclopramide HCl (Reglan) 10 mg Q6H PRN IVP Nausea & Vomiting 01/16/20 13:00 02/15/20 12:59 Midodrine (Pro-Amatine) 10 mg Q8HR NG 01/20/20 22:00 04/13/20 17:59 01/27/20 06:44 Ondansetron HCl (Zofran) 4 mg Q6H PRN IVP Nausea & Vomiting 01/10/20 06:30 02/09/20 06:29 Pantoprazole (Protonix) 40 mg EVERY 12 HOURS IVP 01/20/20 21:00 02/19/20 20:59 01/27/20 09:38 Polyethylene Glycol (Miralax) 17 gm BEDTIME NG 01/11/20 21:00 02/08/20 20:59 01/26/20 22:14 Sennosides (Senokot) 8.6 mg QHS NG 01/11/20 21:00 02/04/20 20:59 01/26/20 22:14 Vitamin D (Vitamin D) 3,000 intlu DAILY GT 01/19/20 12:00 02/18/20 11:59 01/27/20 09:37 Laboratory Tests 01/27/20 11:45: POC Whole Blood Glucose 117H Height (Feet): 6 Height (Inches): 0.00 Weight (Pounds): 150 General Appearance: no apparent distress, lethargic EENT: other - NG tube in place Respiratory/Chest: decreased breath sounds Abdomen: distended Dhiraj Biswas MD Jan 27, 2020 12:53
[2020-01-27 14:43] VITALS: BP 136/82
[2020-01-27 16:00] VITALS: BP 144/77
--- NOTE | 2020-01-27 16:16 | General Progress Note ---
Subjective Allergies: Coded Allergies: No Known Allergies (Unverified , 03/18/19) Subjective above noted patient unresponsive Objective Last 24 Hour Vital Signs Date Time Temp Pulse Resp B/P (MAP) Pulse Ox O2 Delivery O2 Flow Rate FiO2 01/27/20 14:43 136/82 (100) 01/27/20 12:00 106 01/27/20 11:38 96.6 105 24 127/77 (94) 95 01/27/20 09:00 Venturi Mask 2.0 01/27/20 08:00 98.4 103 24 166/77 (106) 98 01/27/20 08:00 108 01/27/20 04:00 97 01/27/20 02:07 Venturi Mask 2.0 01/27/20 00:00 112 01/27/20 00:00 97.9 101 22 133/78 (96) 94 01/26/20 22:43 98.1 109 24 140/84 (102) 94 01/26/20 20:54 97 Venturi Mask 2.0 24 01/26/20 20:00 109 Intake and Output 01/26/20 01/27/20 19:00 07:00 Output Total 300 ml 500 ml Balance -300 ml -500 ml Output Urine Total 300 ml 500 ml Laboratory Tests 01/27/20 11:45: POC Whole Blood Glucose 117H Height (Feet): 6 Height (Inches): 0.00 Weight (Pounds): 150 Objective elderly man NCAT supple CTA RR abd soft NT ND no edema OBS Assessment/Plan Status: unchanged Assessment/Plan: Assessment - dysphagia - respiratory failure - azotemia - OBS - poor px Recommendations - NGT feeds - Elevate HOB - follow labs and exam - will place PEG once stable Ameya Zaragoza MD Jan 27, 2020 16:16
--- NOTE | 2020-01-27 17:31 | Surgery Progress Note ---
Surgery Progress Note Subjective Procedure Performed Right femoral temporary hemodialysis catheter insertion Symptoms: improved, tolerating diet, passing flatus, BM Objective Last 24 Hour Vital Signs Date Time Temp Pulse Resp B/P (MAP) Pulse Ox O2 Delivery O2 Flow Rate FiO2 01/27/20 16:00 24 144/77 (99) 96 01/27/20 16:00 102 01/27/20 14:43 136/82 (100) 01/27/20 12:00 106 01/27/20 11:38 96.6 105 24 127/77 (94) 95 01/27/20 09:00 Venturi Mask 2.0 01/27/20 08:00 98.4 103 24 166/77 (106) 98 01/27/20 08:00 108 01/27/20 04:00 97 01/27/20 02:07 Venturi Mask 2.0 01/27/20 00:00 112 01/27/20 00:00 97.9 101 22 133/78 (96) 94 01/26/20 22:43 98.1 109 24 140/84 (102) 94 01/26/20 20:54 97 Venturi Mask 2.0 24 01/26/20 20:00 109 I&O Intake and Output 01/26/20 01/27/20 19:00 07:00 Output Total 300 ml 500 ml Balance -300 ml -500 ml Output Urine Total 300 ml 500 ml Dressing: saturated Cardiovascular: RSR Respiratory: decreased breath sounds Abdomen: soft, flat, non-tender, present bowel sounds, non-distended Extremities: no tenderness, no cyanosis Laboratory Tests Test 01/27/20 11:45 POC Whole Blood Glucose 117 MG/DL (74-106) H Plan Problems: (1) Altered level of consciousness (2) Hypovolemic shock Assessment & Plan: resuscitation extubated monitor respiratory keep hob elevated supplemental O2 Gallbladder demonstrates sludge. No stones, wall thickening, nor pericholecystic fluid. Patient unable to report Wilson's sign Common bile duct measures 3 mm in diameter. No intrahepatic biliary ductal dilatation. Liver demonstrates coarsened echogenicity and surface nodularity. It demonstrates multiple cysts. Portal vein and hepatic veins are patent. The pancreas demonstrates 3 hypoechoic lesions in the head and body, measuring approximately 5 mm in diameter each. Spleen is unremarkable, poorly visualized. Left kidney measures 11.4 cm in length. Right kidney measures 11.3 cm length. Both kidneys demonstrate normal echogenicity. There is severe right and moderate left hydronephrosis. Echogenic foci are seen in the left renal sinus and collecting system. Bladder is empty, contains a Mathew catheter. Non-aneurysmal abdominal aorta . There are bilateral pleural effusions Impression: Bilateral right greater than left hydronephrosis, increased since prior study of 03/20/2019. Etiology not demonstrated Empty bladder with a Mathew catheter 3 hypoechoic lesions within the pancreatic head and body, each measuring about 5 mm. Appearance nonspecific. Recommend further evaluation with pancreas protocol MRI Bilateral pleural effusions Echogenic liver, consistent with hepatocellular disease. Surface likely nodularity raises concern for cirrhosis Gallbladder sludge. Negative for dilated bile ducts Probable nonobstructive left intrarenal calculi Multiple hepatic cysts (3) Lactic acid acidosis (4) Hypernatremia (5) Paraplegia (6) Anemia Assessment & Plan: no active bleeding noted no large hematoma dressings okay likely related to heme will monitor transfuse prbc with HD trend labs thank you (7) Diabetes (8) Weak (9) HTN (hypertension) (10) ARF (acute renal failure) (11) Hypercalcemia (12) Hyperuricemia (13) Dehydration (14) UTI (urinary tract infection) (15) Failure to thrive in adult Assessment & Plan: patient identified to have DTI on bilateral heels right with 5cm x 4cm area of dti not open no drainage no signs of infection left with 3cm x 2cm. pillow under leg optifoam dressings nutritional optimization will follow no acute surgery DAILY ESTIMATED NEEDS: Needs based on underweight, suspected wt loss, HD, CRITICAL CARE/ 57.6kg 25-33 kcals/kg 9536-0811 total kcals 1.2-2 g protein/kg 69-115 g total protein 25-30 mL/kg 2181-4316 total fluid mLs NUTRITION DIAGNOSIS: *Increased kcal and pro needs r/t underweight status, suspected significant wt loss as evidenced by pt @ 71% IBW w/ BMI 17.2, underweight per guidelines, w/ suspected signficant wt loss of 30lbs/19% in 10 months. * Swallowing difficulty R/T dysphagia, respiratory status as evidenced by s/p NGT insertion (01/08), now NPO, s/p code blue (01/10), orally intubated. CURRENT TF:NPO ENTERAL NUTRITION RECOMMENDATIONS: WHEN HEMODYNAMICALLY STABLE: Nepro @ 40ml/hr x 24 hrs to provide 960ml, 1728kcal, 77g prot, 698ml free water WHEN HEMODYNAMICALLY STABLE AND MEDICALLY APPROPRIATE TO FEED: -> initiate TF @ 5ml/hr x 6hrs, advance slowly 5ml q 4-6 hrs as tolerated to goal rate -> HOB over 30 degrees/ water flush per MD WITHOUT HEMODYNAMIC STABILITY -> If medically appropriate to feed, rec trophic feeding of Nepro @ 5ml/hr x 24 hrs to maintain gut integrity (16) Pelvic mass Assessment & Plan: invasive pelvic mass likely prostate necrotic nodes likely spread recommend colonoscopy given invasion possible to rectum oncology input thank you There is a large pelvic mass which is cephalad to but inseparable from the prostate. This also is inseparable from the posterior wall of the bladder and there appears to be circumferential bladder wall thickening. This mass also appears to involve the seminal vesicles. This measures approximately 8.8 cm transverse by 10 cm craniocaudad by 7.4 cm AP. The periphery of this mass is very lobulated. The mass may also invade the adjacent rectum. There is bilateral iliac chain lymphadenopathy, with nodes measuring up to 3 cm in diameter. Some of these nodes are very low in attenuation indicating that they are necrotic. There is also retroperitoneal lymphadenopathy. There is severe right and moderate left hydronephrosis and bilateral hydroureter. The dilated ureters terminate at the level of the mass. No intrinsic renal parenchymal abnormality. The pancreas is unremarkable. No findings corresponding to the areas of low-attenuation described on prior sonogram are evident. No pancreatic ductal dilatation is evident. The liver demonstrates multiple cysts. The gallbladder, bile ducts, spleen, adrenals are unremarkable. The bones demonstrate diffuse involvement with multiple mixed osteolytic/osteosclerotic lesions, mostly sclerotic component predominating. There is a right groin dialysis catheter in place, tip at the level of the iliac venous confluence. There is a nasogastric tube,, tip in the stomach. There is a Mathew catheter. There is a rectal tube lying outside the patient with the balloon inflated within the inner gluteal fold. There are bilateral pleural effusions. There is compressive atelectasis of most if not all of both lower lobes. 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 Compressive atelectasis of most of not all of both lower lobes Other findings as noted, including multiple liver cysts Lázaro Jenkins Jan 27, 2020 17:31
[2020-01-27 20:00] VITALS: BP 116/59
[2020-01-27] MEDS: Dyna-Hex 2% Top Sol 2oz TOPIC SCH (20:17)
[2020-01-27] MEDS: Miralax 17gm pkt NG SCH (20:18)
[2020-01-27] MEDS: Sennosides 8.6mg tab NG SCH (20:18)
[2020-01-28] VITALS: BP 137/72
[2020-01-28 04:00] VITALS: BP 147/83
[2020-01-28] MEDS: Midodrine 10mg tab NG SCH ×3 (06:00→22:00)
[2020-01-28] MEDS: Metoclopramide 10mg/10ml Liq NG SCH ×3 (06:18→17:53)
[2020-01-28 06:39] LABS: BASOPHILS % (AUTO) 1.4 % (0.0-2.0); EOSINOPHILS % (AUTO) 0.4 % (0.0-3.0); HEMATOCRIT 31.3 % (42.0-52.0); HEMOGLOBIN 9.7 G/DL (14.2-18.0); MEAN CORPUSCULAR VOLUME 92 FL (80-99); MONOCYTES % (AUTO) 14.6 % (1.0-10.0); NEUTROPHILS % (AUTO) 71.6 % (45.0-75.0); PLATELET COUNT 221 K/UL (150-450); RED CELL DISTRIBUTION WIDTH 20.3 % (11.6-14.8)
--- NOTE | 2020-01-28 06:41 | Hematology/Onc Progress Note ---
Assessment/Plan Assessment/Plan Assessment/Recs # Metastatic prostate cancer -- w psa [id number], has a Large pelvic mass as described involving the prostate, bladder, seminal vesicles, presumably representing prostatic malignancy --> CT Evidence of disseminated malignancy, with extensive lymphadenopathy of and evidenc of diffuse osseous metastases Severe right and moderate left hydronephrosis and bilateral hydroureter, due to ureteral obstruction by the above mass --> tumor markers ordered, psa 2741 --> after above reviewed, consider further biopsy of prostate with uro as needed # Pancytopenia with initially Anemia due to underlying chronic medical issues, multifactorial v Gi bleed v malignancy --> Anemia workup has been ordered, rule out gi bleed --> No evidence of hemolysis is noted, peripheral smear has been reviewed. --> Hgb goal >7. Transfuse prn. --> Epogen or iron at this time is not particularly indicated --> Medications have been reviewed --> low threshold for gi evaluation in case has occult + --> hgb 10-->9.7-->9.2->10-->8.6-->7.7-->5-->8.3->9.3->7.8-->8.2-->8.1-->9.3-->9.9->10 --> 11/8 flow cytometry ordered bc of nucleated cells on smear-->neg --> wbc 5-->4-->3.9-->4 --> plt 150-->98-->82-->51->49-->46-->50-->68-->88-->109 --> hep and hiv panel--NEG --> us abd-->shows 3 small lesions, requires further eval --> CT a/p reviewed # Multiple lesions noted in pancreas --> MRI abd ordered--> nondiagnostic --> CT of the abd reviewed # Protein caloric malnutrition --> daily calorie counts --> daily weights --> mirtazapine started # Acute renal failure --> continue on ivfs --> as per renal # Hypokalemia --> replete with K # Severe dehydration --> ivfs ongoing # Hypernatremia indicative of severe water deficit # Severe hyperuricemia, partly due to dehydration and renal failure # Acute metabolic and toxic encephalopathy # Mild, malnutrition # Psych issues per psych # Lactic acid, possible sepsis # Dvt ppx heparin sq->Scds The timing of this note does not necessarily reflect the time of the patient was seen. Greatly appreciate consultation. Subjective Constitutional: Denies: no symptoms, chills, fever, malaise, weakness, other HEENT: Denies: no symptoms, eye pain, blurred vision, tearing, double vision, ear pain, ear discharge, nose pain, nose congestion, throat pain, throat swell ing, mouth pain, mouth swelling, other Respiratory: Denies: no symptoms, cough, shortness of breath, SOB with excertion, SOB at rest, sputum, wheezing, other Gastrointestinal/Abdominal: Denies: no symptoms, abdomen distended, abdominal pain, black stools, tarry stools, blood in stool, constipated, diarrhea, difficulty swallowing, nausea, poor appetite, poor fluid intake, rectal bleeding, vomiting, other Genitourinary: Denies: no symptoms, burning, discharge, frequency, flank pain, hematuria, incontinence, pain, urgency, other Neurologic/Psychiatric: Denies: no symptoms, anxiety, depressed, emotional problems, headache, numbness, paresthesia, pre-existing deficit, seizure, tingling, tremors, weakness, other Endocrine: Denies: no symptoms, excessive sweating, flushing, intolerance to cold, intolerance to heat, increased hunger, increased thirst, increased urine, unexplained weight gain, unexplained weight loss, other Allergies: Coded Allergies: No Known Allergies (Unverified , 03/18/19) Subjective 01/07 meds noted, no bleeding, hgb 10, no hemolysis, hgb 10.1 01/08 labs reviewed, vi rn, no major events, no bleeding, hgb lower 01/09 labs noted, no bleeding, vi rn, no major changes, plt lower 01/10 did have epistaxis overnight, no bleeding, night sweats, epistaxis better 01/12 icu, remains on vent, levo, no bleeding, meds noted 01/13 remains in icu, no bleeding, on levo, no major changes 01/14 icu, is on 1l, restarints are off, no bleeding, no night sweats 01/15 icu, meds noted, with diarrhea, rectal tube reinserted, on nc 01/16 out of icu, no bleeding, meds reviewed, cbc ad bmp pending 01/17 unable to lay still for the mri, thus ct ordered, vi [facility] 01/19 hgb 6.9, no bleeding, no hemolysis, ct reviewed 01/20 obtunded, meds reviewed, hgb is better, in icu 01/21 obtunded, npo, labs hjave been reviewed, hgb 9.2 01/22 obtunded, in icu, no bleeding, plt 109 01/23 obtunded still icu, on venturimask, meds reviewed, labs noted 01/24 obtunded, in icu, labs reviewed, meds noted, wbc 4.1, plt 133 01/26 is out of the icu, no bleeding, meds noted, labs ordered 01/27 nonverbal, out of icu, on feedigs, no bleeding, labs reviewed Objective Objective Current Medications Medications (Trade) Dose Ordered Sig/Jesse Route PRN Reason Start Time Stop Time Status Last Admin Dose Admin Acetaminophen (Tylenol) 650 mg Q4H PRN ORAL PRNH/TEMP 01/05/20 20:15 02/04/20 20:14 01/12/20 03:10 Bisacodyl (Dulcolax) 10 mg DAILY PRN RECTAL Constipation 01/05/20 20:15 04/04/20 20:14 Chlorhexidine Gluconate (Navya-Hex 2%) 1 applic DAILY@2000 TOPIC 01/11/20 20:00 04/10/20 19:59 01/27/20 20:17 Dextrose (Dextrose 50%) 25 ml Q30M PRN IV Hypoglycemia 01/05/20 20:15 04/04/20 20:14 01/24/20 23:53 Dextrose (Dextrose 50%) 50 ml Q30M PRN IV Hypoglycemia 01/05/20 20:15 04/04/20 20:14 Dextrose/Sodium Chloride 1,000 ml @ 60 mls/hr [id number] IV 01/24/20 13:30 02/23/20 13:29 01/27/20 23:40 Linaclotide (Linzess) 290 mcg BEFORE BREAKFAST ORAL 01/10/20 06:30 04/09/20 06:29 01/28/20 06:17 Loperamide HCl (Imodium) 2 mg Q6H PRN NG Diarrhea 01/27/20 15:45 02/26/20 15:44 01/27/20 17:58 Metoclopramide HCl (Reglan) 10 mg EVERY 6 HOURS NG 01/19/20 12:00 02/18/20 11:59 01/28/20 06:18 Metoclopramide HCl (Reglan) 10 mg Q6H PRN IVP Nausea & Vomiting 01/16/20 13:00 02/15/20 12:59 Midodrine (Pro-Amatine) 10 mg Q8HR NG 01/20/20 22:00 04/13/20 17:59 01/27/20 21:46 Ondansetron HCl (Zofran) 4 mg Q6H PRN IVP Nausea & Vomiting 01/10/20 06:30 02/09/20 06:29 Pantoprazole (Protonix) 40 mg EVERY 12 HOURS IVP 01/20/20 21:00 02/19/20 20:59 01/27/20 20:18 Polyethylene Glycol (Miralax) 17 gm BEDTIME NG 01/11/20 21:00 02/08/20 20:59 01/27/20 20:18 Sennosides (Senokot) 8.6 mg QHS NG 01/11/20 21:00 02/04/20 20:59 01/27/20 20:18 Vitamin D (Vitamin D) 3,000 intlu DAILY GT 01/19/20 12:00 02/18/20 11:59 01/27/20 09:37 Last 24 Hour Vital Signs Date Time Temp Pulse Resp B/P (MAP) Pulse Ox O2 Delivery O2 Flow Rate FiO2 01/28/20 04:00 98.8 102 24 147/83 (104) 99 01/28/20 04:00 104 01/28/20 00:00 98.6 107 22 137/72 (93) 99 01/28/20 00:00 107 01/27/20 21:00 Venturi Mask 2.0 01/27/20 20:00 105 01/27/20 20:00 99.9 105 20 116/59 (78) 99 01/27/20 16:00 24 144/77 (99) 96 01/27/20 16:00 102 01/27/20 14:43 136/82 (100) 01/27/20 12:00 106 01/27/20 11:38 96.6 105 24 127/77 (94) 95 01/27/20 09:00 Venturi Mask 2.0 01/27/20 08:00 98.4 103 24 166/77 (106) 98 01/27/20 08:00 108 01/27/20 04:00 97 01/27/20 02:07 Venturi Mask 2.0 01/27/20 00:00 112 01/27/20 00:00 97.9 101 22 133/78 (96) 94 01/26/20 22:43 98.1 109 24 140/84 (102) 94 01/26/20 20:54 97 Venturi Mask 2.0 24 01/26/20 20:00 109 01/26/20 16:00 95 01/26/20 16:00 2.0 24 01/26/20 16:00 Venturi Mask 2.0 01/26/20 12:00 2.0 24 01/26/20 12:00 Venturi Mask 2.0 01/26/20 12:00 97.3 95 22 122/75 (91) 93 01/26/20 12:00 95 01/26/20 08:00 98.4 94 20 126/77 (93) 94 01/26/20 08:00 94 01/26/20 08:00 Venturi Mask 2.0 01/26/20 08:00 2.0 24 Intake and Output 01/27/20 01/28/20 19:00 07:00 Output Total 500 ml 1100 ml Balance -500 ml -1100 ml Output Urine Total 500 ml 800 ml Stool Total 300 ml # Voids 1 # Bowel Movements 1 Labs Test 01/25/20 18:30 01/26/20 05:10 01/27/20 11:45 01/27/20 17:41 POC Whole Blood Glucose 108 MG/DL (74-106) 117 MG/DL (74-106) 107 MG/DL (74-106) White Blood Count 4.2 K/UL (4.8-10.8) Red Blood Count 3.59 M/UL (4.70-6.10) Hemoglobin 10.3 G/DL (14.2-18.0) Hematocrit 33.1 % (42.0-52.0) Mean Corpuscular Volume 92 FL (80-99) Mean Corpuscular Hemoglobin 28.6 PG (27.0-31.0) Mean Corpuscular Hemoglobin Concent 31.0 G/DL (32.0-36.0) Red Cell Distribution Width 20.4 % (11.6-14.8) Platelet Count 150 K/UL (150-450) Mean Platelet Volume 7.0 FL (6.5-10.1) Neutrophils (%) (Auto) 71.5 % (45.0-75.0) Lymphocytes (%) (Auto) 17.2 % (20.0-45.0) Monocytes (%) (Auto) 8.8 % (1.0-10.0) Eosinophils (%) (Auto) 1.4 % (0.0-3.0) Basophils (%) (Auto) 1.0 % (0.0-2.0) Sodium Level 137 MMOL/L (136-145) Potassium Level 3.7 MMOL/L (3.5-5.1) Chloride Level 108 MMOL/L (98-107) Carbon Dioxide Level 18 MMOL/L (21-32) Anion Gap 11 mmol/L (5-15) Blood Urea Nitrogen 15 mg/dL (7-18) Creatinine 0.9 MG/DL (0.55-1.30) Estimat Glomerular Filtration Rate > 60 mL/min (>60) Glucose Level 124 MG/DL (74-106) Calcium Level 7.8 MG/DL (8.5-10.1) Prostate Specific Antigen 2500.05 ng/mL (0.13-4.0) Test 01/27/20 23:33 01/28/20 05:27 01/28/20 05:30 POC Whole Blood Glucose 99 MG/DL (74-106) 95 MG/DL (74-106) Height (Feet): 5 Height (Inches): 9.00 Weight (Pounds): 149 Objective PE: Vitals: reviewed General Appearance: NAD HEENT: normocephalic, atraumatic Neck: non-tender, normal alignment Respiratory/Chest: nromal breath sounds bilaterally Cardiovascular/Chest: normal peripheral pulses, normal rate Abdomen: normal bowel sounds, soft, nontender Extremities: normal range of motion Samuel Son MD Jan 28, 2020 06:41
[2020-01-28 07:20] LABS: ALANINE AMINOTRANSFERASE 19 U/L (12-78); ALBUMIN 2.1 G/DL (3.4-5.0); ALBUMIN/GLOBULIN RATIO 0.6 (1.0-2.7); ALKALINE PHOSPHATASE 178 U/L (46-116); ANION GAP 12 mmol/L (5-15); ASPARTATE AMINO TRANSFERASE 34 U/L (15-37); BILIRUBIN,TOTAL 0.5 MG/DL (0.2-1.0); BLOOD UREA NITROGEN 10 mg/dL (7-18); CALCIUM 7.7 MG/DL (8.5-10.1); CARBON DIOXIDE 19 MMOL/L (21-32); CHLORIDE 108 MMOL/L (98-107); CREATININE 0.8 MG/DL (0.55-1.30); POTASSIUM 3.2 MMOL/L (3.5-5.1); SODIUM 139 MMOL/L (136-145)
--- NOTE | 2020-01-28 07:26 | Infectious Diseases Prog Note ---
Assessment/Plan 69yo M with: Shock- likely combination septic and metabolic derangements- SP Probable UTI -01/10 u/a wbc 60-80, nit neg, leuk +3; ucx Neg -Bcx NTD Probable PNA -01/12 CXR: No significant change in bilateral patchy pulmondary opacities, concerning for pneumonia versus edemaq. Small bilateral pleural effusions. -01/10 CXR: Bilateral interstitial and airspace infiltrates versus edema persists. sp cx MRSA (S Vancomycin, bactrim, tetracycline) COVID19 neg -01/04 rapid COVID PCR neg x1 influenza PCR neg CXR: Mild interstitial vascular prominence. No focal infiltrate or consolidation. 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 Etiology not demonstrated. Empty bladder with a Mathew catheter. 3 hypoechoic lesions within the pancreatic head and body, each measuring about 5 mm. Appearance nonspecific. Bilateral pleural effusions. Echogenic liver, consistent with hepatocellular disease. Surface likely nodularity raises concern for cirrhosis. Gallbladder sludge. Negative for dilated bile ducts. Probable nonobstructive left intrarenal calculi. Multiple hepatic cysts Acute on chronic encephalopathy -CT head: 1. Markedly limited, near nondiagnostic evaluation due to motion artifact. Grossly, age-related changes and small vessel disease of aging are noted. Again grossly, no acute intracranial pathology is detected. If there is a high degree of concern or if there is concern for subtle abnormalities, magnetic resonance imaging of the brain with diffusion-weighted sequences should be performed, due to the markedly limited nature of the current study. Close clinical correlation is necessary. HTN COPD DM2 paraplegia Dementia non verbal [place] resident ([facility]) Plan: Cont to monitor off abx Remove R fem CVC if able, infection risk Trend temp curve closely -01/18 SP vanco IV #7 -01/16 SP Cefepime #4 -01/13 SP ZOsyn #4 -01/06 SP Ceftriaxone #2 -01/04 Sp IV Vancomycin x1, Cefepime x1 -f/u cx -Monitor CBC/CMP, temperatures -Renal, cards f/u -aspiration precautions D/w RN Thank you for consulting [facility]. Will continue to follow along with you. Subjective Allergies: Coded Allergies: No Known Allergies (Unverified , 03/18/19) AF, Tmax 99.9 WBC 6.0 NAD on NC Planning for PEG tomorrow R fem CVC Objective Last 24 Hour Vital Signs Date Time Temp Pulse Resp B/P (MAP) Pulse Ox O2 Delivery O2 Flow Rate FiO2 01/28/20 04:00 98.8 102 24 147/83 (104) 99 01/28/20 04:00 104 01/28/20 00:00 98.6 107 22 137/72 (93) 99 01/28/20 00:00 107 01/27/20 21:00 Venturi Mask 2.0 01/27/20 20:00 105 01/27/20 20:00 99.9 105 20 116/59 (78) 99 01/27/20 16:00 24 144/77 (99) 96 01/27/20 16:00 102 01/27/20 14:43 136/82 (100) 01/27/20 12:00 106 01/27/20 11:38 96.6 105 24 127/77 (94) 95 01/27/20 09:00 Venturi Mask 2.0 01/27/20 08:00 98.4 103 24 166/77 (106) 98 01/27/20 08:00 108 Height (Feet): 5 Height (Inches): 9.00 Weight (Pounds): 149 Gen: NAD in bed HEENT: NCAT CV: RRR Pulm: Rhonchi BL Abd: Soft, Non-distended Ext: No c/c/e Neuro: Not interactive Lines: R fem CVC Laboratory Tests Test 01/27/20 11:45 01/27/20 17:41 01/27/20 23:33 01/28/20 05:27 POC Whole Blood Glucose 117 MG/DL (74-106) H 107 MG/DL (74-106) H 99 MG/DL (74-106) 95 MG/DL (74-106) Test 01/28/20 05:30 White Blood Count 6.0 K/UL (4.8-10.8) Red Blood Count 3.40 M/UL (4.70-6.10) L Hemoglobin 9.7 G/DL (14.2-18.0) L Hematocrit 31.3 % (42.0-52.0) L Mean Corpuscular Volume 92 FL (80-99) Mean Corpuscular Hemoglobin 28.5 PG (27.0-31.0) Mean Corpuscular Hemoglobin Concent 31.0 G/DL (32.0-36.0) L Red Cell Distribution Width 20.3 % (11.6-14.8) H Platelet Count 221 K/UL (150-450) Mean Platelet Volume 7.0 FL (6.5-10.1) Neutrophils (%) (Auto) 71.6 % (45.0-75.0) Lymphocytes (%) (Auto) 12.0 % (20.0-45.0) L Monocytes (%) (Auto) 14.6 % (1.0-10.0) H Eosinophils (%) (Auto) 0.4 % (0.0-3.0) Basophils (%) (Auto) 1.4 % (0.0-2.0) Sodium Level 139 MMOL/L (136-145) Potassium Level 3.2 MMOL/L (3.5-5.1) L Chloride Level 108 MMOL/L (98-107) H Carbon Dioxide Level 19 MMOL/L (21-32) L Anion Gap 12 mmol/L (5-15) Blood Urea Nitrogen 10 mg/dL (7-18) Creatinine 0.8 MG/DL (0.55-1.30) Estimat Glomerular Filtration Rate > 60 mL/min (>60) Glucose Level 88 MG/DL (74-106) Calcium Level 7.7 MG/DL (8.5-10.1) L Phosphorus Level 2.0 MG/DL (2.5-4.9) L Magnesium Level 1.5 MG/DL (1.8-2.4) L Total Bilirubin 0.5 MG/DL (0.2-1.0) Aspartate Amino Transf (AST/SGOT) 34 U/L (15-37) Alanine Aminotransferase (ALT/SGPT) 19 U/L (12-78) Alkaline Phosphatase 178 U/L (46-116) H C-Reactive Protein, Quantitative 17.4 mg/dL (0.00-0.90) H Pro-B-Type Natriuretic Peptide Pending Total Protein 5.9 G/DL (6.4-8.2) L Albumin 2.1 G/DL (3.4-5.0) L Globulin 3.8 g/dL Albumin/Globulin Ratio 0.6 (1.0-2.7) L Current Medications Medications (Trade) Dose Ordered Sig/Jesse Route PRN Reason Start Time Stop Time Status Last Admin Dose Admin Acetaminophen (Tylenol) 650 mg Q4H PRN ORAL PRNH/TEMP 01/05/20 20:15 02/04/20 20:14 01/12/20 03:10 Bisacodyl (Dulcolax) 10 mg DAILY PRN RECTAL Constipation 01/05/20 20:15 04/04/20 20:14 Chlorhexidine Gluconate (Navya-Hex 2%) 1 applic DAILY@2000 TOPIC 01/11/20 20:00 04/10/20 19:59 01/27/20 20:17 Dextrose (Dextrose 50%) 25 ml Q30M PRN IV Hypoglycemia 01/05/20 20:15 04/04/20 20:14 01/24/20 23:53 Dextrose (Dextrose 50%) 50 ml Q30M PRN IV Hypoglycemia 01/05/20 20:15 04/04/20 20:14 Dextrose/Sodium Chloride 1,000 ml @ 60 mls/hr [id number] IV 01/24/20 13:30 02/23/20 13:29 01/27/20 23:40 Linaclotide (Linzess) 290 mcg BEFORE BREAKFAST ORAL 01/10/20 06:30 04/09/20 06:29 01/28/20 06:17 Loperamide HCl (Imodium) 2 mg Q6H PRN NG Diarrhea 01/27/20 15:45 02/26/20 15:44 01/27/20 17:58 Metoclopramide HCl (Reglan) 10 mg EVERY 6 HOURS NG 01/19/20 12:00 02/18/20 11:59 01/28/20 06:18 Metoclopramide HCl (Reglan) 10 mg Q6H PRN IVP Nausea & Vomiting 01/16/20 13:00 02/15/20 12:59 Midodrine (Pro-Amatine) 10 mg Q8HR NG 01/20/20 22:00 04/13/20 17:59 01/27/20 21:46 Ondansetron HCl (Zofran) 4 mg Q6H PRN IVP Nausea & Vomiting 01/10/20 06:30 02/09/20 06:29 Pantoprazole (Protonix) 40 mg EVERY 12 HOURS IVP 01/20/20 21:00 02/19/20 20:59 01/27/20 20:18 Polyethylene Glycol (Miralax) 17 gm BEDTIME NG 01/11/20 21:00 02/08/20 20:59 01/27/20 20:18 Sennosides (Senokot) 8.6 mg QHS NG 01/11/20 21:00 02/04/20 20:59 01/27/20 20:18 Vitamin D (Vitamin D) 3,000 intlu DAILY GT 01/19/20 12:00 02/18/20 11:59 01/27/20 09:37 Nayana Ochoa M.D. Jan 28, 2020 07:26
[2020-01-28 08:00] VITALS: BP 146/79
--- NOTE | 2020-01-28 08:02 | General Progress Note ---
Subjective ROS Limited/Unobtainable: No Allergies: Coded Allergies: No Known Allergies (Unverified , 03/18/19) Objective Last 24 Hour Vital Signs Date Time Temp Pulse Resp B/P (MAP) Pulse Ox O2 Delivery O2 Flow Rate FiO2 01/28/20 04:00 98.8 102 24 147/83 (104) 99 01/28/20 04:00 104 01/28/20 00:00 98.6 107 22 137/72 (93) 99 01/28/20 00:00 107 01/27/20 21:00 Venturi Mask 2.0 01/27/20 20:00 105 01/27/20 20:00 99.9 105 20 116/59 (78) 99 01/27/20 16:00 24 144/77 (99) 96 01/27/20 16:00 102 01/27/20 14:43 136/82 (100) 01/27/20 12:00 106 01/27/20 11:38 96.6 105 24 127/77 (94) 95 01/27/20 09:00 Venturi Mask 2.0 Intake and Output 01/27/20 01/28/20 19:00 07:00 Output Total 500 ml 1100 ml Balance -500 ml -1100 ml Output Urine Total 500 ml 800 ml Stool Total 300 ml # Voids 1 # Bowel Movements 1 Laboratory Tests 01/27/20 11:45: POC Whole Blood Glucose 117H 01/27/20 17:41: POC Whole Blood Glucose 107H 01/27/20 23:33: POC Whole Blood Glucose 99 01/28/20 05:27: POC Whole Blood Glucose 95 01/28/20 05:30: White Blood Count 6.0, Red Blood Count 3.40L, Hemoglobin 9.7L, Hematocrit 31.3L, Mean Corpuscular Volume 92, Mean Corpuscular Hemoglobin 28.5, Mean Corpuscular Hemoglobin Concent 31.0L, Red Cell Distribution Width 20.3H, Platelet Count 221, Mean Platelet Volume 7.0, Neutrophils (%) (Auto) 71.6, Lymphocytes (%) (Auto) 12.0L, Monocytes (%) (Auto) 14.6H, Eosinophils (%) (Auto) 0.4, Basophils (%) (Auto) 1.4, Sodium Level 139, Potassium Level 3.2L, Chloride Level 108H, Carbon Dioxide Level 19L, Anion Gap 12, Blood Urea Nitrogen 10, Creatinine 0.8, Estimat Glomerular Filtration Rate > 60, Glucose Level 88, Calcium Level 7.7L, Phosphorus Level 2.0L, Magnesium Level 1.5L, Total Bilirubin 0.5, Aspartate Amino Transf (AST/SGOT) 34, Alanine Aminotransferase (ALT/SGPT) 19, Alkaline Phosphatase 178H, C-Reactive Protein, Quantitative 17.4H, Pro-B-Type Natriuretic Peptide [Pending], Total Protein 5.9L, Albumin 2.1L, Globulin 3.8, Albumin/Globulin Ratio 0.6L Height (Feet): 5 Height (Inches): 9.00 Weight (Pounds): 149 General Appearance: lethargic EENT: normal ENT inspection Neck: supple Cardiovascular: normal rate Respiratory/Chest: decreased breath sounds Abdomen: normal bowel sounds, non tender, soft Extremities: non-tender Assessment/Plan Status: unchanged Assessment/Plan: AMS dementia Anemia DM hyper CA elevated AST low albumin COPD RI HTN metastatic prostate CA NGTF post blood transfusion poor prognosis PEG plans canceled by anesthesia today given respiratory distress last week patient still on Venturi mask plan PEG leon more stable possibly this week Paulino Bueno MD Jan 28, 2020 08:02
[2020-01-28] MEDS: Vitamin D 1000 IU Tab GT SCH (08:37)
[2020-01-28] MEDS: Pantoprazole Inj IVP SCH (08:37)
--- NOTE | 2020-01-28 09:45 | Cardiac Electrophysiology PN ---
Assessment/Plan Assessment/Plan 1. Altered mental status due to severe dehydration in view of sodium of 160 and acute renal failure. On IV fluids and IV antibiotics. Ruled out for MT. 2. S/P Septic shock off Levophed and on iv Abx On Midodrine 10 tid 3. History of CVA, off Plavix in view of hematuria. 4. Respiratory failure, Extubated 01/22 5. Diabetes. 6. Acute renal failure. Cr 4.2. Had HD once only on 01/11/20. No more HD needed and Cr 1.2 7. Hematuria 8. Anemia with Hb 5.8 and coffee ground emesis. FU Dr Bueno 9. Shock liver with increase AST>2000 10. Metastatic prostate cancer -- w psa [id number] with a Large pelvic mass involving the prostate, bladder, seminal vesicles, presumably representing prostatic malignancy Severe right and moderate left hydronephrosis and bilateral hydroureter, due to ureteral obstruction by the above mass 11. Dysphagia, NGT feeding. PEG pending today KARLO RN and Dr Biswas Subjective Subjective Coded 01/19 for respiratory failure followed by bradycardia and PEA. Extubated 01/23/20. On Venturi Mask 2 liter NC NPO for EGD today Objective Last 24 Hour Vital Signs Date Time Temp Pulse Resp B/P (MAP) Pulse Ox O2 Delivery O2 Flow Rate FiO2 01/28/20 09:20 Nasal Cannula 2.0 01/28/20 08:00 97.7 93 22 146/79 (101) 100 01/28/20 04:00 98.8 102 24 147/83 (104) 99 01/28/20 04:00 104 01/28/20 00:00 98.6 107 22 137/72 (93) 99 01/28/20 00:00 107 01/27/20 21:00 Venturi Mask 2.0 01/27/20 20:00 105 01/27/20 20:00 99.9 105 20 116/59 (78) 99 01/27/20 16:00 24 144/77 (99) 96 01/27/20 16:00 102 01/27/20 14:43 136/82 (100) 01/27/20 12:00 106 01/27/20 11:38 96.6 105 24 127/77 (94) 95 Intake and Output 01/27/20 01/28/20 19:00 07:00 Output Total 500 ml 1100 ml Balance -500 ml -1100 ml Output Urine Total 500 ml 800 ml Stool Total 300 ml # Voids 1 # Bowel Movements 1 Laboratory Tests Test 01/27/20 11:45 01/27/20 17:41 01/27/20 23:33 01/28/20 05:27 POC Whole Blood Glucose 117 MG/DL (74-106) H 107 MG/DL (74-106) H 99 MG/DL (74-106) 95 MG/DL (74-106) Test 01/28/20 05:30 White Blood Count 6.0 K/UL (4.8-10.8) Red Blood Count 3.40 M/UL (4.70-6.10) L Hemoglobin 9.7 G/DL (14.2-18.0) L Hematocrit 31.3 % (42.0-52.0) L Mean Corpuscular Volume 92 FL (80-99) Mean Corpuscular Hemoglobin 28.5 PG (27.0-31.0) Mean Corpuscular Hemoglobin Concent 31.0 G/DL (32.0-36.0) L Red Cell Distribution Width 20.3 % (11.6-14.8) H Platelet Count 221 K/UL (150-450) Mean Platelet Volume 7.0 FL (6.5-10.1) Neutrophils (%) (Auto) 71.6 % (45.0-75.0) Lymphocytes (%) (Auto) 12.0 % (20.0-45.0) L Monocytes (%) (Auto) 14.6 % (1.0-10.0) H Eosinophils (%) (Auto) 0.4 % (0.0-3.0) Basophils (%) (Auto) 1.4 % (0.0-2.0) Sodium Level 139 MMOL/L (136-145) Potassium Level 3.2 MMOL/L (3.5-5.1) L Chloride Level 108 MMOL/L (98-107) H Carbon Dioxide Level 19 MMOL/L (21-32) L Anion Gap 12 mmol/L (5-15) Blood Urea Nitrogen 10 mg/dL (7-18) Creatinine 0.8 MG/DL (0.55-1.30) Estimat Glomerular Filtration Rate > 60 mL/min (>60) Glucose Level 88 MG/DL (74-106) Calcium Level 7.7 MG/DL (8.5-10.1) L Phosphorus Level 2.0 MG/DL (2.5-4.9) L Magnesium Level 1.5 MG/DL (1.8-2.4) L Total Bilirubin 0.5 MG/DL (0.2-1.0) Aspartate Amino Transf (AST/SGOT) 34 U/L (15-37) Alanine Aminotransferase (ALT/SGPT) 19 U/L (12-78) Alkaline Phosphatase 178 U/L (46-116) H C-Reactive Protein, Quantitative 17.4 mg/dL (0.00-0.90) H Pro-B-Type Natriuretic Peptide Pending Total Protein 5.9 G/DL (6.4-8.2) L Albumin 2.1 G/DL (3.4-5.0) L Globulin 3.8 g/dL Albumin/Globulin Ratio 0.6 (1.0-2.7) L Objective HEAD AND NECK: NGT in place LUNGS: Coarse rhonchi. CARDIOVASCULAR: Regular S1 and S2 with no gallop. ABDOMEN: Soft. EXTREMITIES: No pitting edema. Kevin Lopez MD Jan 28, 2020 09:45
--- NOTE | 2020-01-28 10:11 | Pulmonology Progress Note ---
Subjective ROS Limited/Unobtainable: No Interval Events: Now on 2L/min O2 Constitutional: Reports: no symptoms HEENT: Repors: no symptoms Respiratory: Reports: no symptoms Cardiovascular: Reports: no symptoms Gastrointestinal/Abdominal: Reports: no symptoms Genitourinary: Reports: no symptoms Allergies: Coded Allergies: No Known Allergies (Unverified , 03/18/19) All Systems: reviewed and negative except above Objective Last 24 Hour Vital Signs Date Time Temp Pulse Resp B/P (MAP) Pulse Ox O2 Delivery O2 Flow Rate FiO2 01/28/20 09:20 Nasal Cannula 2.0 01/28/20 08:00 97.7 93 22 146/79 (101) 100 01/28/20 08:00 94 01/28/20 04:00 98.8 102 24 147/83 (104) 99 01/28/20 04:00 104 01/28/20 00:00 98.6 107 22 137/72 (93) 99 01/28/20 00:00 107 01/27/20 21:00 Venturi Mask 2.0 01/27/20 20:00 105 01/27/20 20:00 99.9 105 20 116/59 (78) 99 01/27/20 16:00 24 144/77 (99) 96 01/27/20 16:00 102 01/27/20 14:43 136/82 (100) 01/27/20 12:00 106 01/27/20 11:38 96.6 105 24 127/77 (94) 95 Intake and Output 01/27/20 01/28/20 19:00 07:00 Output Total 500 ml 1100 ml Balance -500 ml -1100 ml Output Urine Total 500 ml 800 ml Stool Total 300 ml # Voids 1 # Bowel Movements 1 General Appearance: no acute distress HEENT: normocephalic Respiratory: chest wall non-tender, lungs clear Cardiovascular: normal peripheral pulses, normal rate Abdomen: normal bowel sounds Laboratory Tests 01/27/20 11:45: POC Whole Blood Glucose 117H 01/27/20 17:41: POC Whole Blood Glucose 107H 01/27/20 23:33: POC Whole Blood Glucose 99 01/28/20 05:27: POC Whole Blood Glucose 95 01/28/20 05:30: White Blood Count 6.0, Red Blood Count 3.40L, Hemoglobin 9.7L, Hematocrit 31.3L, Mean Corpuscular Volume 92, Mean Corpuscular Hemoglobin 28.5, Mean Corpuscular Hemoglobin Concent 31.0L, Red Cell Distribution Width 20.3H, Platelet Count 221, Mean Platelet Volume 7.0, Neutrophils (%) (Auto) 71.6, Lymphocytes (%) (Auto) 12.0L, Monocytes (%) (Auto) 14.6H, Eosinophils (%) (Auto) 0.4, Basophils (%) (Auto) 1.4, Sodium Level 139, Potassium Level 3.2L, Chloride Level 108H, Carbon Dioxide Level 19L, Anion Gap 12, Blood Urea Nitrogen 10, Creatinine 0.8, Estimat Glomerular Filtration Rate > 60, Glucose Level 88, Calcium Level 7.7L, Phosphorus Level 2.0L, Magnesium Level 1.5L, Total Bilirubin 0.5, Aspartate Amino Transf (AST/SGOT) 34, Alanine Aminotransferase (ALT/SGPT) 19, Alkaline Phosphatase 178H, C-Reactive Protein, Quantitative 17.4H, Pro-B-Type Natriuretic Peptide [Pending], Total Protein 5.9L, Albumin 2.1L, Globulin 3.8, Albumin/Globulin Ratio 0.6L Current Medications Medications (Trade) Dose Ordered Sig/Jesse Route PRN Reason Start Time Stop Time Status Last Admin Dose Admin Acetaminophen (Tylenol) 650 mg Q4H PRN ORAL PRNH/TEMP 01/05/20 20:15 02/04/20 20:14 01/12/20 03:10 Bisacodyl (Dulcolax) 10 mg DAILY PRN RECTAL Constipation 01/05/20 20:15 04/04/20 20:14 Chlorhexidine Gluconate (Navya-Hex 2%) 1 applic DAILY@2000 TOPIC 01/11/20 20:00 04/10/20 19:59 01/27/20 20:17 Dextrose (Dextrose 50%) 25 ml Q30M PRN IV Hypoglycemia 01/05/20 20:15 04/04/20 20:14 01/24/20 23:53 Dextrose (Dextrose 50%) 50 ml Q30M PRN IV Hypoglycemia 01/05/20 20:15 04/04/20 20:14 Dextrose/Sodium Chloride 1,000 ml @ 60 mls/hr [id number] IV 01/24/20 13:30 02/23/20 13:29 01/27/20 23:40 Linaclotide (Linzess) 290 mcg BEFORE BREAKFAST ORAL 01/10/20 06:30 04/09/20 06:29 01/28/20 06:17 Loperamide HCl (Imodium) 2 mg Q6H PRN NG Diarrhea 01/27/20 15:45 02/26/20 15:44 01/27/20 17:58 Magnesium Sulfate 100 ml @ 100 mls/hr Q1H IVPB 01/28/20 12:00 01/28/20 13:59 Metoclopramide HCl (Reglan) 10 mg EVERY 6 HOURS NG 01/19/20 12:00 02/18/20 11:59 01/28/20 06:18 Metoclopramide HCl (Reglan) 10 mg Q6H PRN IVP Nausea & Vomiting 01/16/20 13:00 02/15/20 12:59 Midodrine (Pro-Amatine) 10 mg Q8HR NG 01/20/20 22:00 04/13/20 17:59 01/27/20 21:46 Ondansetron HCl (Zofran) 4 mg Q6H PRN IVP Nausea & Vomiting 01/10/20 06:30 02/09/20 06:29 Pantoprazole (Protonix) 40 mg EVERY 12 HOURS IVP 01/20/20 21:00 02/19/20 20:59 01/28/20 08:37 Polyethylene Glycol (Miralax) 17 gm BEDTIME NG 01/11/20 21:00 02/08/20 20:59 01/27/20 20:18 Potassium Phosphate 20 mm/ Sodium Chloride 281.6667 ml @ 46.944 m... ONCE ONCE IV 01/28/20 11:00 01/28/20 16:59 Sennosides (Senokot) 8.6 mg QHS NG 01/11/20 21:00 02/04/20 20:59 01/27/20 20:18 Vitamin D (Vitamin D) 3,000 intlu DAILY GT 01/19/20 12:00 02/18/20 11:59 01/28/20 08:37 Assessment/Plan Assessment/Plan IMPRESSION: 1. Severe metabolic acidosis. Corrected; now has combined respiratory and metabolic alkalosis 2. Respiratory failure; now extubated 3. Diarrhea. Resolved 4. Acute renal failure. Nephrology following; 5. Anemia; DISCUSSION: EGD and PEG scheduled Remains obtunded Saturating well on 2L/min O2 Daxa Infante Omar Syed MD Jan 28, 2020 10:11
[2020-01-28] MEDS ORDERED: Potassium Phosphate 20 MM in NS 275 ML IV ONE (11:00)
--- NOTE | 2020-01-28 11:57 | Nephrology Progress Note ---
Assessment/Plan Problem List: (1) ARF (acute renal failure) (2) Hypernatremia (3) Hypovolemic shock (4) Altered level of consciousness (5) Hypercalcemia (6) Hyperuricemia (7) Pelvic mass Assessment: Prostate cancer Assessment Acute renal failure Possible underlying chronic kidney failure Severe dehydration Hypernatremia indicative of severe water deficit Severe hyperuricemia, partly due to dehydration and renal failure Acute metabolic and toxic encephalopathy Mild, malnutrition Anemia Lactic acid, possible sepsis Hypercalcemia Plan January 27: Labs reviewed. Abnormal electrolyte addressed. Low potassium low phosphorus and low magnesium replaced. Continue per consultants. January 26: No labs drawn today. Status quo. Continue per consultants. Will check renal parameters tomorrow. January 25: Renal parameters stable. On Venturi mask. Continue per current management. January 24: Renal parameters stable. On Venturi mask. Discussed with RN. Due for PEG insertion today. January 23: Stable from renal standpoint of view. On Venturi mask. Low magnesium addressed. Continue per consultants. January 22: Patient off pressors. Patient extubated. Labs reviewed. Renal parameters are stable. January 21: Patient on low-dose pressors. Remains hypotensive. Renal paramete rs stable. Weaning trial in process. Mental status remains poor. January 20: Patient in ICU. Intubated. Full code. Has advanced prostate cancer. On IV Lasix drip. Low magnesium and low phosphorus and low potassium noted and addressed. Continue per consultants. January 19: Patient in ICU. Intubated. Was coded yesterday. Labs reviewed. Medication list reviewed and adjusted. Continue per consultants. Patient full code. Prognosis poor. PSA over 2700 January 18: Labs reviewed. IV fluid discontinued. IV calcium dose decreased. Midodrine dose decreased. Reglan and Protonix changed to GT route. Vitamin D initiated. Continue to monitor renal parameters and calcium level. January 17: Labs reviewed. Abnormal electrolyte addressed. Continue per consultants. January 16: Patient now in telemetry. Labs pending. Continue to monitor renal parameters. Continue per consultants. January 15: Still in ICU. Doing well post extubation. Renal parameters improving. Not requiring any more dialysis treatment after the first dialysis treatment. Medications reviewed. Continue per consultants. January 14: Remains in ICU. Tolerating extubation. Labs reviewed. Abnormal electrolytes addressed. Serum creatinine lowering. Continue per current management. Stop Phos binders. Increase calcium IV. January 13: In ICU. Now extubated. Only dialyzed once. Urine output maintained. Serum creatinine down to 2.5. Patient has NG tube. Continue to monitor renal parameters. Continue per consultants. Abnormal electrolytes addressed. January 12: Remains in ICU. Intubated. Transfused yesterday. Abnormal electrolytes addressed. Dialyzed once January 10. Serum creatinine stable. Will adjust IV fluid. Monitor renal parameters. Dialysis as needed. Calcium gluconate IV ordered. Ionized calcium level ordered with tomorrow's labs. January 11: Patient in ICU. Intubated. On Levophed. Hemoglobin low. Due for transfusion. Electrolyte abnormalities noted and addressed. Patient was dialyz ed yesterday. Will check lab tomorrow. Dialysis as needed. Discussed with SELIN Srivastava. January 10: Patient is doing poorly. Blood pressure low. ABG abnormal with metabolic acidosis. IV sodium bicarb given. Serum creatinine reno. Patient has acute renal failure. Nontunneled dialysis catheter replacement ordered.. Patient need life saving dialysis treatment SRINIVAS. January 09: Labs reviewed. IV D5 and a half with sodium bicarb initiated. Serum creatinine higher. Continue to monitor renal parameters. NG feeding was changed to Nepro. Patient remains full code. Poor prognosis. January 08: Labs reviewed. IV D5W discontinued. 500 cc 3% saline ordered. NG tube for feeding and for medications. Allopurinol dose increased. Continue to monitor renal parameters serum calcium and phosphorus. January 07: Labs reviewed. Serum calcium remains elevated. Uric acid still elevated. Will give pamidronate 60 mg IV piggyback once for hypercalcemia. Continue to monitor renal parameters. Continue D5W 150 cc an hour. Start Bicitra 30 cc p.o. every 6 hours. Add allopurinol D5W IV hydration Albumin bolus N.p.o. until able to take p.o. Antibiotics Monitor renal parameters monitor calcium, monitor uric acid Subjective ROS Limited/Unobtainable: Yes Objective Objective Last 24 Hour Vital Signs Date Time Temp Pulse Resp B/P (MAP) Pulse Ox O2 Delivery O2 Flow Rate FiO2 01/28/20 09:20 Nasal Cannula 2.0 01/28/20 08:00 97.7 93 22 146/79 (101) 100 01/28/20 08:00 94 01/28/20 04:00 98.8 102 24 147/83 (104) 99 01/28/20 04:00 104 01/28/20 00:00 98.6 107 22 137/72 (93) 99 01/28/20 00:00 107 01/27/20 21:00 Venturi Mask 2.0 01/27/20 20:00 105 01/27/20 20:00 99.9 105 20 116/59 (78) 99 01/27/20 16:00 24 144/77 (99) 96 01/27/20 16:00 102 01/27/20 14:43 136/82 (100) 01/27/20 12:00 106 Intake and Output 01/27/20 01/28/20 19:00 07:00 Output Total 500 ml 1100 ml Balance -500 ml -1100 ml Output Urine Total 500 ml 800 ml Stool Total 300 ml # Voids 1 # Bowel Movements 1 Current Medications Medications (Trade) Dose Ordered Sig/Jesse Route PRN Reason Start Time Stop Time Status Last Admin Dose Admin Acetaminophen (Tylenol) 650 mg Q4H PRN ORAL PRNH/TEMP 01/05/20 20:15 02/04/20 20:14 01/12/20 03:10 Bisacodyl (Dulcolax) 10 mg DAILY PRN RECTAL Constipation 01/05/20 20:15 04/04/20 20:14 Chlorhexidine Gluconate (Navya-Hex 2%) 1 applic DAILY@1999 TOPIC 01/11/20 20:00 04/10/20 19:59 01/27/20 20:17 Dextrose (Dextrose 50%) 25 ml Q30M PRN IV Hypoglycemia 01/05/20 20:15 04/04/20 20:14 01/24/20 23:53 Dextrose (Dextrose 50%) 50 ml Q30M PRN IV Hypoglycemia 01/05/20 20:15 04/04/20 20:14 Dextrose/Sodium Chloride 1,000 ml @ 60 mls/hr [id number] IV 01/24/20 13:30 02/23/20 13:29 01/27/20 23:40 Linaclotide (Linzess) 290 mcg BEFORE BREAKFAST ORAL 01/10/20 06:30 04/09/20 06:29 01/28/20 06:17 Loperamide HCl (Imodium) 2 mg Q6H PRN NG Diarrhea 01/27/20 15:45 02/26/20 15:44 01/27/20 17:58 Magnesium Sulfate 100 ml @ 100 mls/hr Q1H IVPB 01/28/20 12:00 01/28/20 13:59 Metoclopramide HCl (Reglan) 10 mg EVERY 6 HOURS NG 01/19/20 12:00 02/18/20 11:59 01/28/20 06:18 Metoclopramide HCl (Reglan) 10 mg Q6H PRN IVP Nausea & Vomiting 01/16/20 13:00 02/15/20 12:59 Midodrine (Pro-Amatine) 10 mg Q8HR NG 01/20/20 22:00 04/13/20 17:59 01/27/20 21:46 Ondansetron HCl (Zofran) 4 mg Q6H PRN IVP Nausea & Vomiting 01/10/20 06:30 02/09/20 06:29 Pantoprazole (Protonix) 40 mg EVERY 12 HOURS IVP 01/20/20 21:00 02/19/20 20:59 01/28/20 08:37 Polyethylene Glycol (Miralax) 17 gm BEDTIME NG 01/11/20 21:00 02/08/20 20:59 01/27/20 20:18 Potassium Phosphate 20 mm/ Sodium Chloride 281.6667 ml @ 46.944 m... ONCE ONCE IV 01/28/20 11:00 01/28/20 16:59 Sennosides (Senokot) 8.6 mg QHS NG 01/11/20 21:00 02/04/20 20:59 01/27/20 20:18 Vitamin D (Vitamin D) 3,000 intlu DAILY GT 01/19/20 12:00 02/18/20 11:59 01/28/20 08:37 Laboratory Tests 01/27/20 17:41: POC Whole Blood Glucose 107H 01/27/20 23:33: POC Whole Blood Glucose 99 01/28/20 05:27: POC Whole Blood Glucose 95 01/28/20 05:30: White Blood Count 6.0, Red Blood Count 3.40L, Hemoglobin 9.7L, Hematocrit 31.3L, Mean Corpuscular Volume 92, Mean Corpuscular Hemoglobin 28.5, Mean Corpuscular Hemoglobin Concent 31.0L, Red Cell Distribution Width 20.3H, Platelet Count 221, Mean Platelet Volume 7.0, Neutrophils (%) (Auto) 71.6, Lymphocytes (%) (Auto) 12.0L, Monocytes (%) (Auto) 14.6H, Eosinophils (%) (Auto) 0.4, Basophils (%) (Auto) 1.4, Sodium Level 139, Potassium Level 3.2L, Chloride Level 108H, Carbon Dioxide Level 19L, Anion Gap 12, Blood Urea Nitrogen 10, Creatinine 0.8, Estimat Glomerular Filtration Rate > 60, Glucose Level 88, Calcium Level 7.7L, Phosphorus Level 2.0L, Magnesium Level 1.5L, Total Bilirubin 0.5, Aspartate Amino Transf (AST/SGOT) 34, Alanine Aminotransferase (ALT/SGPT) 19, Alkaline Phosphatase 178H, C-Reactive Protein, Quantitative 17.4H, Pro-B-Type Natriuretic Peptide 4144H, Total Protein 5.9L, Albumin 2.1L, Globulin 3.8, Albumin/Globulin Ratio 0.6L 01/28/20 11:33: POC Whole Blood Glucose 105 Height (Feet): 5 Height (Inches): 9.00 Weight (Pounds): 149 General Appearance: no apparent distress, lethargic EENT: other - NG tube in place Cardiovascular: normal rate Respiratory/Chest: decreased breath sounds Abdomen: soft Dhiraj Biswas MD Jan 28, 2020 11:57
[2020-01-28 12:00] VITALS: BP 136/74
--- NOTE | 2020-01-28 13:44 | Surgery Progress Note ---
Surgery Progress Note Subjective Procedure Performed Right femoral temporary hemodialysis catheter insertion Additional Comments respiratory slowly improving planned peg soon no n/v labs noted Objective Last 24 Hour Vital Signs Date Time Temp Pulse Resp B/P (MAP) Pulse Ox O2 Delivery O2 Flow Rate FiO2 01/28/20 12:00 97.7 103 20 136/74 (94) 97 01/28/20 09:20 Nasal Cannula 2.0 01/28/20 08:00 97.7 93 22 146/79 (101) 100 01/28/20 08:00 94 01/28/20 04:00 98.8 102 24 147/83 (104) 99 01/28/20 04:00 104 01/28/20 00:00 98.6 107 22 137/72 (93) 99 01/28/20 00:00 107 01/27/20 21:00 Venturi Mask 2.0 01/27/20 20:00 105 01/27/20 20:00 99.9 105 20 116/59 (78) 99 01/27/20 16:00 24 144/77 (99) 96 01/27/20 16:00 102 01/27/20 14:43 136/82 (100) I&O Intake and Output 01/27/20 01/28/20 19:00 07:00 Output Total 500 ml 1100 ml Balance -500 ml -1100 ml Output Urine Total 500 ml 800 ml Stool Total 300 ml # Voids 1 # Bowel Movements 1 Dressing: saturated Cardiovascular: RSR Respiratory: decreased breath sounds Abdomen: soft, non-tender, present bowel sounds Extremities: no tenderness, no cyanosis Laboratory Tests Test 01/27/20 17:41 01/27/20 23:33 01/28/20 05:27 01/28/20 05:30 POC Whole Blood Glucose 107 MG/DL (74-106) H 99 MG/DL (74-106) 95 MG/DL (74-106) White Blood Count 6.0 K/UL (4.8-10.8) Red Blood Count 3.40 M/UL (4.70-6.10) L Hemoglobin 9.7 G/DL (14.2-18.0) L Hematocrit 31.3 % (42.0-52.0) L Mean Corpuscular Volume 92 FL (80-99) Mean Corpuscular Hemoglobin 28.5 PG (27.0-31.0) Mean Corpuscular Hemoglobin Concent 31.0 G/DL (32.0-36.0) L Red Cell Distribution Width 20.3 % (11.6-14.8) H Platelet Count 221 K/UL (150-450) Mean Platelet Volume 7.0 FL (6.5-10.1) Neutrophils (%) (Auto) 71.6 % (45.0-75.0) Lymphocytes (%) (Auto) 12.0 % (20.0-45.0) L Monocytes (%) (Auto) 14.6 % (1.0-10.0) H Eosinophils (%) (Auto) 0.4 % (0.0-3.0) Basophils (%) (Auto) 1.4 % (0.0-2.0) Sodium Level 139 MMOL/L (136-145) Potassium Level 3.2 MMOL/L (3.5-5.1) L Chloride Level 108 MMOL/L (98-107) H Carbon Dioxide Level 19 MMOL/L (21-32) L Anion Gap 12 mmol/L (5-15) Blood Urea Nitrogen 10 mg/dL (7-18) Creatinine 0.8 MG/DL (0.55-1.30) Estimat Glomerular Filtration Rate > 60 mL/min (>60) Glucose Level 88 MG/DL (74-106) Calcium Level 7.7 MG/DL (8.5-10.1) L Phosphorus Level 2.0 MG/DL (2.5-4.9) L Magnesium Level 1.5 MG/DL (1.8-2.4) L Total Bilirubin 0.5 MG/DL (0.2-1.0) Aspartate Amino Transf (AST/SGOT) 34 U/L (15-37) Alanine Aminotransferase (ALT/SGPT) 19 U/L (12-78) Alkaline Phosphatase 178 U/L (46-116) H C-Reactive Protein, Quantitative 17.4 mg/dL (0.00-0.90) H Pro-B-Type Natriuretic Peptide 4144 pg/mL (0-125) H Total Protein 5.9 G/DL (6.4-8.2) L Albumin 2.1 G/DL (3.4-5.0) L Globulin 3.8 g/dL Albumin/Globulin Ratio 0.6 (1.0-2.7) L Test 01/28/20 11:33 POC Whole Blood Glucose 105 MG/DL (74-106) Plan Problems: (1) Altered level of consciousness (2) Hypovolemic shock Assessment & Plan: resuscitation extubated monitor respiratory keep hob elevated supplemental O2 Gallbladder demonstrates sludge. No stones, wall thickening, nor pericholecystic fluid. Patient unable to report Wilson's sign Common bile duct measures 3 mm in diameter. No intrahepatic biliary ductal dilatation. Liver demonstrates coarsened echogenicity and surface nodularity. It demonstrates multiple cysts. Portal vein and hepatic veins are patent. The pancreas demonstrates 3 hypoechoic lesions in the head and body, measuring approximately 5 mm in diameter each. Spleen is unremarkable, poorly visualized. Left kidney measures 11.4 cm in length. Right kidney measures 11.3 cm length. Both kidneys demonstrate normal echogenicity. There is severe right and moderate left hydronephrosis. Echogenic foci are seen in the left renal sinus and collecting system. Bladder is empty, contains a Mathew catheter. Non-aneurysmal abdominal aorta . There are bilateral pleural effusions Impression: Bilateral right greater than left hydronephrosis, increased since prior study of 03/20/2019. Etiology not demonstrated Empty bladder with a Mathew catheter 3 hypoechoic lesions within the pancreatic head and body, each measuring about 5 mm. Appearance nonspecific. Recommend further evaluation with pancreas protocol MRI Bilateral pleural effusions Echogenic liver, consistent with hepatocellular disease. Surface likely nodularity raises concern for cirrhosis Gallbladder sludge. Negative for dilated bile ducts Probable nonobstructive left intrarenal calculi Multiple hepatic cysts (3) Lactic acid acidosis (4) Hypernatremia (5) Paraplegia (6) Anemia Assessment & Plan: no active bleeding noted no large hematoma dressings okay likely related to heme will monitor transfuse prbc with HD trend labs thank you (7) Diabetes (8) Weak (9) HTN (hypertension) (10) ARF (acute renal failure) (11) Hypercalcemia (12) Hyperuricemia (13) Dehydration (14) UTI (urinary tract infection) (15) Failure to thrive in adult Assessment & Plan: patient identified to have DTI on bilateral heels right with 5cm x 4cm area of dti not open no drainage no signs of infection left with 3cm x 2cm. pillow under leg optifoam dressings nutritional optimization will follow no acute surgery DAILY ESTIMATED NEEDS: Needs based on underweight, suspected wt loss, HD, CRITICAL CARE/ 57.6kg 25-33 kcals/kg 2021-8289 total kcals 1.2-2 g protein/kg 69-115 g total protein 25-30 mL/kg 5972-5878 total fluid mLs NUTRITION DIAGNOSIS: *Increased kcal and pro needs r/t underweight status, suspected significant wt loss as evidenced by pt @ 71% IBW w/ BMI 17.2, underweight per guidelines, w/ suspected signficant wt loss of 30lbs/19% in 10 months. * Swallowing difficulty R/T dysphagia, respiratory status as evidenced by s/p NGT insertion (01/08), now NPO, s/p code blue (01/10), orally intubated. CURRENT TF:NPO ENTERAL NUTRITION RECOMMENDATIONS: WHEN HEMODYNAMICALLY STABLE: Nepro @ 40ml/hr x 24 hrs to provide 960ml, 1728kcal, 77g prot, 698ml free water WHEN HEMODYNAMICALLY STABLE AND MEDICALLY APPROPRIATE TO FEED: -> initiate TF @ 5ml/hr x 6hrs, advance slowly 5ml q 4-6 hrs as tolerated to goal rate -> HOB over 30 degrees/ water flush per MD WITHOUT HEMODYNAMIC STABILITY -> If medically appropriate to feed, rec trophic feeding of Nepro @ 5ml/hr x 24 hrs to maintain gut integrity (16) Pelvic mass Assessment & Plan: invasive pelvic mass likely prostate necrotic nodes likely spread recommend colonoscopy given invasion possible to rectum oncology input thank you There is a large pelvic mass which is cephalad to but inseparable from the prostate. This also is inseparable from the posterior wall of the bladder and there appears to be circumferential bladder wall thickening. This mass also appears to involve the seminal vesicles. This measures approximately 8.8 cm transverse by 10 cm craniocaudad by 7.4 cm AP. The periphery of this mass is very lobulated. The mass may also invade the adjacent rectum. There is bilateral iliac chain lymphadenopathy, with nodes measuring up to 3 cm in diameter. Some of these nodes are very low in attenuation indicating that they are necrotic. There is also retroperitoneal lymphadenopathy. There is severe right and moderate left hydronephrosis and bilateral hydroureter. The dilated ureters terminate at the level of the mass. No intrinsic renal parenchymal abnormality. The pancreas is unremarkable. No findings corresponding to the areas of low-attenuation described on prior sonogram are evident. No pancreatic ductal dilatation is evident. The liver demonstrates multiple cysts. The gallbladder, bile ducts, spleen, adrenals are unremarkable. The bones demonstrate diffuse involvement with multiple mixed osteolytic/osteosclerotic lesions, mostly sclerotic component predominating. There is a right groin dialysis catheter in place, tip at the level of the iliac venous confluence. There is a nasogastric tube,, tip in the stomach. There is a Mathew catheter. There is a rectal tube lying outside the patient with the balloon inflated within the inner gluteal fold. There are bilateral pleural effusions. There is compressive atelectasis of most if not all of both lower lobes. 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 Compressive atelectasis of most of not all of both lower lobes Other findings as noted, including multiple liver cysts Lázaro Jenkins Jan 28, 2020 13:44
[2020-01-28 16:00] VITALS: BP 144/76
--- NOTE | 2020-01-28 16:36 | General Progress Note ---
Subjective ROS Limited/Unobtainable: Yes Allergies: Coded Allergies: No Known Allergies (Unverified , 03/18/19) Objective Last 24 Hour Vital Signs Date Time Temp Pulse Resp B/P (MAP) Pulse Ox O2 Delivery O2 Flow Rate FiO2 01/28/20 16:00 97.9 98 22 144/76 (98) 100 01/28/20 12:00 97.7 103 20 136/74 (94) 97 01/28/20 12:00 93 01/28/20 09:20 Nasal Cannula 2.0 01/28/20 08:00 97.7 93 22 146/79 (101) 100 01/28/20 08:00 94 01/28/20 04:00 98.8 102 24 147/83 (104) 99 01/28/20 04:00 104 01/28/20 00:00 98.6 107 22 137/72 (93) 99 01/28/20 00:00 107 01/27/20 21:00 Venturi Mask 2.0 01/27/20 20:00 105 01/27/20 20:00 99.9 105 20 116/59 (78) 99 Intake and Output 01/27/20 01/28/20 19:00 07:00 Output Total 500 ml 1100 ml Balance -500 ml -1100 ml Output Urine Total 500 ml 800 ml Stool Total 300 ml # Voids 1 # Bowel Movements 1 Laboratory Tests 01/27/20 17:41: POC Whole Blood Glucose 107H 01/27/20 23:33: POC Whole Blood Glucose 99 01/28/20 05:27: POC Whole Blood Glucose 95 01/28/20 05:30: White Blood Count 6.0, Red Blood Count 3.40L, Hemoglobin 9.7L, Hematocrit 31.3L, Mean Corpuscular Volume 92, Mean Corpuscular Hemoglobin 28.5, Mean Corpuscular Hemoglobin Concent 31.0L, Red Cell Distribution Width 20.3H, Platelet Count 221, Mean Platelet Volume 7.0, Neutrophils (%) (Auto) 71.6, Lymphocytes (%) (Auto) 12.0L, Monocytes (%) (Auto) 14.6H, Eosinophils (%) (Auto) 0.4, Basophils (%) (Auto) 1.4, Sodium Level 139, Potassium Level 3.2L, Chloride Level 108H, Carbon Dioxide Level 19L, Anion Gap 12, Blood Urea Nitrogen 10, Creatinine 0.8, Estimat Glomerular Filtration Rate > 60, Glucose Level 88, Calcium Level 7.7L, Phosphorus Level 2.0L, Magnesium Level 1.5L, Total Bilirubin 0.5, Aspartate Amino Transf (AST/SGOT) 34, Alanine Aminotransferase (ALT/SGPT) 19, Alkaline Phosphatase 178H, C-Reactive Protein, Quantitative 17.4H, Pro-B-Type Natriuretic Peptide 4144H, Total Protein 5.9L, Albumin 2.1L, Globulin 3.8, Albumin/Globulin Ratio 0.6L 01/28/20 11:33: POC Whole Blood Glucose 105 Height (Feet): 5 Height (Inches): 9.00 Weight (Pounds): 149 Assessment/Plan Problem List: (1) Altered level of consciousness ICD Codes: R40.4 - Transient alteration of awareness SNOMED: 8718073 (2) Hypernatremia ICD Codes: E87.0 - Hyperosmolality and hypernatremia SNOMED: 960052310 (3) Paraplegia ICD Codes: G82.20 - Paraplegia, unspecified SNOMED: 05375435 (4) Anemia ICD Codes: D64.9 - Anemia, unspecified SNOMED: 474087708 (5) Diabetes ICD Codes: E11.9 - Type 2 diabetes mellitus without complications SNOMED: 83038224 (6) HTN (hypertension) ICD Codes: I10 - Essential (primary) hypertension SNOMED: 68910952 (7) ARF (acute renal failure) ICD Codes: N17.9 - Acute kidney failure, unspecified SNOMED: 79279909 (8) Dehydration ICD Codes: E86.0 - Dehydration SNOMED: 26917855 (9) UTI (urinary tract infection) ICD Codes: N39.0 - Urinary tract infection, site not specified SNOMED: 59412191 (10) Failure to thrive in adult ICD Codes: R62.7 - Adult failure to thrive SNOMED: 728597867 Status: progressing, unchanged Assessment/Plan: dm htn azotemia improvng reviewed chart and labs and meds dehydration improving fluid encourgement ams afebrile Juan Diego Randall MD Jan 28, 2020 16:36
[2020-01-28] MEDS: D5 1/2NS 1,000 ML IV SCH (17:53)
[2020-01-28 20:00] VITALS: BP 125/76
[2020-01-28] MEDS: Dyna-Hex 2% Top Sol 2oz TOPIC SCH (20:53)
[2020-01-28] MEDS: Miralax 17gm pkt NG SCH (20:53)
[2020-01-28] MEDS: Sennosides 8.6mg tab NG SCH (20:53)
[2020-01-29] VITALS (13 sets, daily range): BP systolic 54–153; BP diastolic 41–88
--- NOTE | 2020-01-29 06:11 | Pre-Procedure Note/Attestation ---
Pre-Procedure Note/Attestation Complete Prior to Procedure Planned Procedure: not applicable Procedure Narrative: EGD/peg Indications for Procedure Pre-Operative Diagnosis: dysphagia Attestation I attest that I discussed the nature of the procedure; its benefits; risks and complications; and alternatives (and the risks and benefits of such alternatives), prior to the procedure, with the patient (or the patient's legal sales representative health insurance). I attest that, if there was a reasonable possibility of needing a blood transfu jaswant, the patient (or the patient's legal sales representative health insurance) was given the [facility] standardized written summary, pursuant to the [employer] Blood Safety Act ([place] Health and Safety Code # 1645, as amended). I attest that I re-evaluated the patient just prior to the surgery and that there has been no change in the patient's H&P, except as documented below: Paulino Bueno MD Jan 29, 2020 06:11
[2020-01-29 06:46] LABS: HEMATOCRIT 30.4 % (42.0-52.0); HEMOGLOBIN 9.3 G/DL (14.2-18.0); MEAN CORPUSCULAR VOLUME 93 FL (80-99); PLATELET COUNT 244 K/UL (150-450); RED BLOOD COUNT 3.27 M/UL (4.70-6.10)
--- NOTE | 2020-01-29 06:46 | Hematology/Onc Progress Note ---
Assessment/Plan Assessment/Plan Assessment/Recs # Metastatic prostate cancer -- w psa 2741, has a Large pelvic mass as described involving the prostate, bladder, seminal vesicles, presumably representing prostatic malignancy --> CT Evidence of disseminated malignancy, with extensive lymphadenopathy of and evidenc of diffuse osseous metastases Severe right and moderate left hydronephrosis and bilateral hydroureter, due to ureteral obstruction by the above mass --> tumor markers ordered, psa 2741 --> after above reviewed, consider further biopsy of prostate with uro as needed # Pancytopenia with initially Anemia due to underlying chronic medical issues, multifactorial v Gi bleed v malignancy --> Anemia workup has been ordered, rule out gi bleed --> No evidence of hemolysis is noted, peripheral smear has been reviewed. --> Hgb goal >7. Transfuse prn. --> Epogen or iron at this time is not particularly indicated --> Medications have been reviewed --> low threshold for gi evaluation in case has occult + --> hgb 10-->9.7-->9.2->10-->8.6-->7.7-->5-->8.3->9.3->7.8-->8.2-->8.1-->9.3-->9.9->10 --> 11/8 flow cytometry ordered bc of nucleated cells on smear-->neg --> wbc 5-->4-->3.9-->4 --> plt 150-->98-->82-->51->49-->46-->50-->68-->88-->109 --> hep and hiv panel--NEG --> us abd-->shows 3 small lesions, requires further eval --> CT a/p reviewed # Multiple lesions noted in pancreas --> MRI abd ordered--> nondiagnostic --> CT of the abd reviewed # Protein caloric malnutrition --> daily calorie counts --> daily weights --> mirtazapine started # Acute renal failure --> continue on ivfs --> as per renal # Hypokalemia --> replete with K # Severe dehydration --> ivfs ongoing # Hypernatremia indicative of severe water deficit # Severe hyperuricemia, partly due to dehydration and renal failure # Acute metabolic and toxic encephalopathy # Mild, malnutrition # Psych issues per psych # Lactic acid, possible sepsis # Dvt ppx heparin sq->Scds The timing of this note does not necessarily reflect the time of the patient was seen. Greatly appreciate consultation. Subjective Constitutional: Denies: no symptoms, chills, fever, malaise, weakness, other HEENT: Denies: no symptoms, eye pain, blurred vision, tearing, double vision, ear pain, ear discharge, nose pain, nose congestion, throat pain, throat swell ing, mouth pain, mouth swelling, other Cardiovascular: Denies: no symptoms, chest pain, edema, irregular heart rate, lightheadedness, palpitations, syncope, other Respiratory: Denies: no symptoms, cough, shortness of breath, SOB with excertion, SOB at rest, sputum, wheezing, other Gastrointestinal/Abdominal: Denies: no symptoms, abdomen distended, abdominal pain, black stools, tarry stools, blood in stool, constipated, diarrhea, difficulty swallowing, nausea, poor appetite, poor fluid intake, rectal bleeding, vomiting, other Genitourinary: Denies: no symptoms, burning, discharge, frequency, flank pain, hematuria, incontinence, pain, urgency, other Neurologic/Psychiatric: Denies: no symptoms, anxiety, depressed, emotional problems, headache, numbness, paresthesia, pre-existing deficit, seizure, tingling, tremors, weakness, other Endocrine: Denies: no symptoms, excessive sweating, flushing, intolerance to cold, intolerance to heat, increased hunger, increased thirst, increased urine, unexplained weight gain, unexplained weight loss, other Hematologic/Lymphatic: Denies: no symptoms, anemia, easy bleeding, easy b ruising, adenopathy, other Allergies: Coded Allergies: No Known Allergies (Unverified , 03/18/19) Subjective 01/07 meds noted, no bleeding, hgb 10, no hemolysis, hgb 10.1 01/08 labs reviewed, vi rn, no major events, no bleeding, hgb lower 01/09 labs noted, no bleeding, vi rn, no major changes, plt lower 01/10 did have epistaxis overnight, no bleeding, night sweats, epistaxis better 01/12 icu, remains on vent, levo, no bleeding, meds noted 01/13 remains in icu, no bleeding, on levo, no major changes 01/14 icu, is on 1l, restarints are off, no bleeding, no night sweats 01/15 icu, meds noted, with diarrhea, rectal tube reinserted, on nc 01/16 out of icu, no bleeding, meds reviewed, cbc ad bmp pending 01/17 unable to lay still for the mri, thus ct ordered, vi rn 01/19 hgb 6.9, no bleeding, no hemolysis, ct reviewed 01/20 obtunded, meds reviewed, hgb is better, in icu 01/21 obtunded, npo, labs hjave been reviewed, hgb 9.2 01/22 obtunded, in icu, no bleeding, plt 109 01/23 obtunded still icu, on venturimask, meds reviewed, labs noted 01/24 obtunded, in icu, labs reviewed, meds noted, wbc 4.1, plt 133 01/26 is out of the icu, no bleeding, meds noted, labs ordered 01/27 nonverbal, out of icu, on feedigs, no bleeding, labs reviewed 01/28 icu, nv, is on midrinone, linzess, ivf Objective Objective Current Medications Medications (Trade) Dose Ordered Sig/Jesse Route PRN Reason Start Time Stop Time Status Last Admin Dose Admin Acetaminophen (Tylenol) 650 mg Q4H PRN ORAL PRNH/TEMP 01/05/20 20:15 02/04/20 20:14 01/12/20 03:10 Bisacodyl (Dulcolax) 10 mg DAILY PRN RECTAL Constipation 01/05/20 20:15 04/04/20 20:14 Chlorhexidine Gluconate (Navya-Hex 2%) 1 applic DAILY@1999 TOPIC 01/11/20 20:00 04/10/20 19:59 01/28/20 20:53 Dextrose (Dextrose 50%) 25 ml Q30M PRN IV Hypoglycemia 01/05/20 20:15 04/04/20 20:14 01/24/20 23:53 Dextrose (Dextrose 50%) 50 ml Q30M PRN IV Hypoglycemia 01/05/20 20:15 04/04/20 20:14 Dextrose/Sodium Chloride 1,000 ml @ 60 mls/hr [id number] IV 01/24/20 13:30 12/19/20 13:29 01/28/20 17:53 Lansoprazole (Prevacid) 30 mg Q12HR NG 01/28/20 21:00 02/27/20 20:59 01/28/20 20:53 Linaclotide (Linzess) 290 mcg BEFORE BREAKFAST ORAL 01/10/20 06:30 04/09/20 06:29 01/28/20 06:17 Loperamide HCl (Imodium) 2 mg Q6H PRN NG Diarrhea 01/27/20 15:45 02/26/20 15:44 01/27/20 17:58 Metoclopramide HCl (Reglan) 10 mg EVERY 6 HOURS NG 01/19/20 12:00 02/18/20 11:59 01/29/20 00:00 Metoclopramide HCl (Reglan) 10 mg Q6H PRN IVP Nausea & Vomiting 01/16/20 13:00 02/15/20 12:59 Midodrine (Pro-Amatine) 10 mg Q8HR NG 01/20/20 22:00 04/13/20 17:59 01/28/20 22:00 Ondansetron HCl (Zofran) 4 mg Q6H PRN IVP Nausea & Vomiting 01/10/20 06:30 02/09/20 06:29 Polyethylene Glycol (Miralax) 17 gm BEDTIME NG 01/11/20 21:00 02/08/20 20:59 01/28/20 20:53 Sennosides (Senokot) 8.6 mg QHS NG 01/11/20 21:00 02/04/20 20:59 01/28/20 20:53 Vitamin D (Vitamin D) 3,000 intlu DAILY GT 01/19/20 12:00 02/18/20 11:59 01/28/20 08:37 Last 24 Hour Vital Signs Date Time Temp Pulse Resp B/P (MAP) Pulse Ox O2 Delivery O2 Flow Rate FiO2 01/29/20 04:00 102 01/29/20 04:00 98.2 106 18 118/67 (84) 97 01/29/20 00:00 98.0 98 19 131/71 (91) 98 01/29/20 00:00 102 01/28/20 20:00 97.5 102 20 125/76 (92) 97 01/28/20 20:00 102 01/28/20 16:00 97.9 98 22 144/76 (98) 100 01/28/20 16:00 98 01/28/20 12:00 97.7 103 20 136/74 (94) 97 01/28/20 12:00 93 01/28/20 09:20 Nasal Cannula 2.0 01/28/20 08:00 97.7 93 22 146/79 (101) 100 01/28/20 08:00 94 01/28/20 04:00 98.8 102 24 147/83 (104) 99 01/28/20 04:00 104 01/28/20 00:00 98.6 107 22 137/72 (93) 99 01/28/20 00:00 107 01/27/20 21:00 Venturi Mask 2.0 01/27/20 20:00 105 01/27/20 20:00 99.9 105 20 116/59 (78) 99 01/27/20 16:00 24 144/77 (99) 96 01/27/20 16:00 102 01/27/20 14:43 136/82 (100) 01/27/20 12:00 106 01/27/20 11:38 96.6 105 24 127/77 (94) 95 01/27/20 09:00 Venturi Mask 2.0 01/27/20 08:00 98.4 103 24 166/77 (106) 98 01/27/20 08:00 108 Intake and Output 01/28/20 01/29/20 19:00 07:00 Intake Total 60 ml 540 ml Output Total 500 ml Balance -440 ml 540 ml IV Total 60 ml 540 ml Output Urine Total 500 ml Labs Test 01/27/20 11:45 01/27/20 17:41 01/27/20 23:33 01/28/20 05:27 POC Whole Blood Glucose 117 MG/DL (74-106) 107 MG/DL (74-106) 99 MG/DL (74-106) 95 MG/DL (74-106) Test 01/28/20 05:30 01/28/20 11:33 01/29/20 06:17 White Blood Count 6.0 K/UL (4.8-10.8) Red Blood Count 3.40 M/UL (4.70-6.10) Hemoglobin 9.7 G/DL (14.2-18.0) Hematocrit 31.3 % (42.0-52.0) Mean Corpuscular Volume 92 FL (80-99) Mean Corpuscular Hemoglobin 28.5 PG (27.0-31.0) Mean Corpuscular Hemoglobin Concent 31.0 G/DL (32.0-36.0) Red Cell Distribution Width 20.3 % (11.6-14.8) Platelet Count 221 K/UL (150-450) Mean Platelet Volume 7.0 FL (6.5-10.1) Neutrophils (%) (Auto) 71.6 % (45.0-75.0) Lymphocytes (%) (Auto) 12.0 % (20.0-45.0) Monocytes (%) (Auto) 14.6 % (1.0-10.0) Eosinophils (%) (Auto) 0.4 % (0.0-3.0) Basophils (%) (Auto) 1.4 % (0.0-2.0) Sodium Level 139 MMOL/L (136-145) Potassium Level 3.2 MMOL/L (3.5-5.1) Chloride Level 108 MMOL/L (98-107) Carbon Dioxide Level 19 MMOL/L (21-32) Anion Gap 12 mmol/L (5-15) Blood Urea Nitrogen 10 mg/dL (7-18) Creatinine 0.8 MG/DL (0.55-1.30) Estimat Glomerular Filtration Rate > 60 mL/min (>60) Glucose Level 88 MG/DL (74-106) Calcium Level 7.7 MG/DL (8.5-10.1) Phosphorus Level 2.0 MG/DL (2.5-4.9) Magnesium Level 1.5 MG/DL (1.8-2.4) Total Bilirubin 0.5 MG/DL (0.2-1.0) Aspartate Amino Transf (AST/SGOT) 34 U/L (15-37) Alanine Aminotransferase (ALT/SGPT) 19 U/L (12-78) Alkaline Phosphatase 178 U/L (46-116) C-Reactive Protein, Quantitative 17.4 mg/dL (0.00-0.90) Pro-B-Type Natriuretic Peptide 4144 pg/mL (0-125) Total Protein 5.9 G/DL (6.4-8.2) Albumin 2.1 G/DL (3.4-5.0) Globulin 3.8 g/dL Albumin/Globulin Ratio 0.6 (1.0-2.7) POC Whole Blood Glucose 105 MG/DL (74-106) Height (Feet): 5 Height (Inches): 9.00 Weight (Pounds): 149 Objective PE: Vitals: reviewed General Appearance: NAD HEENT: normocephalic, atraumatic Neck: non-tender, normal alignment Respiratory/Chest: nromal breath sounds bilaterally Cardiovascular/Chest: normal peripheral pulses, normal rate Abdomen: normal bowel sounds, soft, nontender Extremities: normal range of motion Samuel Son MD Jan 29, 2020 06:46
[2020-01-29] MEDS: Midodrine 10mg tab NG SCH ×3 (06:50→23:43)
[2020-01-29] MEDS: Metoclopramide 10mg/10ml Liq NG SCH ×5 (06:51→23:43)
--- NOTE | 2020-01-29 07:33 | Infectious Diseases Prog Note ---
Assessment/Plan 69yo M with: Shock- likely combination septic and metabolic derangements- SP Probable UTI -01/10 u/a wbc 60-80, nit neg, leuk +3; ucx Neg -Bcx NTD Probable PNA -01/12 CXR: No significant change in bilateral patchy pulmondary opacities, concerning for pneumonia versus edemaq. Small bilateral pleural effusions. -01/10 CXR: Bilateral interstitial and airspace infiltrates versus edema persists. sp cx MRSA (S Vancomycin, bactrim, tetracycline) COVID19 neg -01/04 rapid COVID PCR neg x1 influenza PCR neg CXR: Mild interstitial vascular prominence. No focal infiltrate or consolidation. 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 Etiology not demonstrated. Empty bladder with a Mathew catheter. 3 hypoechoic lesions within the pancreatic head and body, each measuring about 5 mm. Appearance nonspecific. Bilateral pleural effusions. Echogenic liver, consistent with hepatocellular disease. Surface likely nodularity raises concern for cirrhosis. Gallbladder sludge. Negative for dilated bile ducts. Probable nonobstructive left intrarenal calculi. Multiple hepatic cysts Acute on chronic encephalopathy -CT head: 1. Markedly limited, near nondiagnostic evaluation due to motion artifact. Grossly, age-related changes and small vessel disease of aging are noted. Again grossly, no acute intracranial pathology is detected. If there is a high degree of concern or if there is concern for subtle abnormalities, magnetic resonance imaging of the brain with diffusion-weighted sequences should be performed, due to the markedly limited nature of the current study. Close clinical correlation is necessary. HTN COPD DM2 paraplegia Dementia non verbal [place] resident ([facility]) Plan: Cont to monitor off abx Remove R fem CVC if able, infection risk Trend temp curve closely -01/18 SP vanco IV #7 -01/16 SP Cefepime #4 -01/13 SP ZOsyn #4 -01/06 SP Ceftriaxone #2 -01/04 Sp IV Vancomycin x1, Cefepime x1 -f/u cx -Monitor CBC/CMP, temperatures -Renal, cards f/u -aspiration precautions D/w RN Thank you for consulting [facility]. Will continue to follow along with you. Subjective Allergies: Coded Allergies: No Known Allergies (Unverified , 03/18/19) AF WBC 3.0 NAD on 2L NC Going for new PEG today per RN Objective Last 24 Hour Vital Signs Date Time Temp Pulse Resp B/P (MAP) Pulse Ox O2 Delivery O2 Flow Rate FiO2 01/29/20 04:00 102 01/29/20 04:00 98.2 106 18 118/67 (84) 97 01/29/20 00:00 98.0 98 19 131/71 (91) 98 01/29/20 00:00 102 01/28/20 20:00 97.5 102 20 125/76 (92) 97 01/28/20 20:00 102 01/28/20 16:00 97.9 98 22 144/76 (98) 100 01/28/20 16:00 98 01/28/20 12:00 97.7 103 20 136/74 (94) 97 01/28/20 12:00 93 01/28/20 09:20 Nasal Cannula 2.0 01/28/20 08:00 97.7 93 22 146/79 (101) 100 01/28/20 08:00 94 Height (Feet): 5 Height (Inches): 9.00 Weight (Pounds): 149 Gen: NAD in bed HEENT: NCAT CV: RRR Pulm: Rhonchi BL Abd: Soft, Non-distended Ext: No c/c/e Neuro: Not interactive Lines: R fem CVC Laboratory Tests Test 01/28/20 11:33 01/29/20 06:17 POC Whole Blood Glucose 105 MG/DL (74-106) White Blood Count 3.0 K/UL (4.8-10.8) L Red Blood Count 3.27 M/UL (4.70-6.10) L Hemoglobin 9.3 G/DL (14.2-18.0) L Hematocrit 30.4 % (42.0-52.0) L Mean Corpuscular Volume 93 FL (80-99) Mean Corpuscular Hemoglobin 28.5 PG (27.0-31.0) Mean Corpuscular Hemoglobin Concent 30.7 G/DL (32.0-36.0) L Red Cell Distribution Width 21.0 % (11.6-14.8) H Platelet Count 244 K/UL (150-450) Mean Platelet Volume 6.5 FL (6.5-10.1) Neutrophils (%) (Auto) % (45.0-75.0) Lymphocytes (%) (Auto) % (20.0-45.0) Monocytes (%) (Auto) % (1.0-10.0) Eosinophils (%) (Auto) % (0.0-3.0) Basophils (%) (Auto) % (0.0-2.0) Neutrophils % (Manual) Pending Lymphocytes % (Manual) Pending Platelet Estimate Pending Platelet Morphology Pending Current Medications Medications (Trade) Dose Ordered Sig/Jesse Route PRN Reason Start Time Stop Time Status Last Admin Dose Admin Acetaminophen (Tylenol) 650 mg Q4H PRN ORAL PRNH/TEMP 01/05/20 20:15 02/04/20 20:14 01/12/20 03:10 Bisacodyl (Dulcolax) 10 mg DAILY PRN RECTAL Constipation 01/05/20 20:15 04/04/20 20:14 Chlorhexidine Gluconate (Navya-Hex 2%) 1 applic DAILY@2000 TOPIC 01/11/20 20:00 04/10/20 19:59 01/28/20 20:53 Dextrose (Dextrose 50%) 25 ml Q30M PRN IV Hypoglycemia 01/05/20 20:15 04/04/20 20:14 01/24/20 23:53 Dextrose (Dextrose 50%) 50 ml Q30M PRN IV Hypoglycemia 01/05/20 20:15 04/04/20 20:14 Dextrose/Sodium Chloride 1,000 ml @ 60 mls/hr [id number] IV 01/24/20 13:30 02/23/20 13:29 01/28/20 17:53 Lansoprazole (Prevacid) 30 mg Q12HR NG 01/28/20 21:00 02/27/20 20:59 01/28/20 20:53 Linaclotide (Linzess) 290 mcg BEFORE BREAKFAST ORAL 01/10/20 06:30 04/09/20 06:29 01/29/20 06:51 Loperamide HCl (Imodium) 2 mg Q6H PRN NG Diarrhea 01/27/20 15:45 02/26/20 15:44 01/27/20 17:58 Metoclopramide HCl (Reglan) 10 mg EVERY 6 HOURS NG 01/19/20 12:00 02/18/20 11:59 01/29/20 06:51 Metoclopramide HCl (Reglan) 10 mg Q6H PRN IVP Nausea & Vomiting 01/16/20 13:00 02/15/20 12:59 Midodrine (Pro-Amatine) 10 mg Q8HR NG 01/20/20 22:00 04/13/20 17:59 01/29/20 06:50 Ondansetron HCl (Zofran) 4 mg Q6H PRN IVP Nausea & Vomiting 01/10/20 06:30 02/09/20 06:29 Polyethylene Glycol (Miralax) 17 gm BEDTIME NG 01/11/20 21:00 02/08/20 20:59 01/28/20 20:53 Sennosides (Senokot) 8.6 mg QHS NG 01/11/20 21:00 02/04/20 20:59 01/28/20 20:53 Vitamin D (Vitamin D) 3,000 intlu DAILY GT 01/19/20 12:00 02/18/20 11:59 01/28/20 08:37 Nayana Ochoa M.D. Jan 29, 2020 07:33
[2020-01-29 08:54] LABS: ALANINE AMINOTRANSFERASE 16 U/L (12-78); ALBUMIN/GLOBULIN RATIO 0.5 (1.0-2.7); ALKALINE PHOSPHATASE 206 U/L (46-116); ANION GAP 8 mmol/L (5-15); ASPARTATE AMINO TRANSFERASE 34 U/L (15-37); BILIRUBIN,TOTAL 0.4 MG/DL (0.2-1.0); BLOOD UREA NITROGEN 9 mg/dL (7-18); CALCIUM 7.5 MG/DL (8.5-10.1); CARBON DIOXIDE 23 MMOL/L (21-32); CHLORIDE 108 MMOL/L (98-107); CREATININE 0.8 MG/DL (0.55-1.30); POTASSIUM 3.5 MMOL/L (3.5-5.1); SODIUM 139 MMOL/L (136-145)
--- NOTE | 2020-01-29 09:32 | Pulmonology Progress Note ---
Subjective ROS Limited/Unobtainable: Yes Interval Events: Now on 2L/min O2; doing poorly; drooling Constitutional: Reports: no symptoms HEENT: Repors: no symptoms Respiratory: Reports: no symptoms Cardiovascular: Reports: no symptoms Gastrointestinal/Abdominal: Reports: no symptoms Genitourinary: Reports: no symptoms Allergies: Coded Allergies: No Known Allergies (Unverified , 03/18/19) All Systems: reviewed and negative except above Objective Last 24 Hour Vital Signs Date Time Temp Pulse Resp B/P (MAP) Pulse Ox O2 Delivery O2 Flow Rate FiO2 01/29/20 08:00 97.7 109 24 153/80 (104) 94 01/29/20 04:00 102 01/29/20 04:00 98.2 106 18 118/67 (84) 97 01/29/20 00:00 98.0 98 19 131/71 (91) 98 01/29/20 00:00 102 01/28/20 20:00 97.5 102 20 125/76 (92) 97 01/28/20 20:00 102 01/28/20 16:00 97.9 98 22 144/76 (98) 100 01/28/20 16:00 98 01/28/20 12:00 97.7 103 20 136/74 (94) 97 01/28/20 12:00 93 Intake and Output 01/28/20 01/29/20 19:00 07:00 Intake Total 60 ml 540 ml Output Total 500 ml Balance -440 ml 540 ml IV Total 60 ml 540 ml Output Urine Total 500 ml General Appearance: no acute distress HEENT: normocephalic Respiratory: chest wall non-tender, lungs clear Cardiovascular: normal peripheral pulses, normal rate Abdomen: normal bowel sounds Laboratory Tests 01/28/20 11:33: POC Whole Blood Glucose 105 01/29/20 06:17: White Blood Count 3.0L, Red Blood Count 3.27L, Hemoglobin 9.3L, Hematocrit 30.4L , Mean Corpuscular Volume 93, Mean Corpuscular Hemoglobin 28.5, Mean Corpuscular Hemoglobin Concent 30.7L, Red Cell Distribution Width 21.0H, Platelet Count 244, Mean Platelet Volume 6.5, Neutrophils (%) (Auto) , Lymphocytes (%) (Auto) , Monocytes (%) (Auto) , Eosinophils (%) (Auto) , Basophils (%) (Auto) , Neutrophils % (Manual) [Pending], Lymphocytes % (Manual) [Pending], Platelet Estimate [Pending], Platelet Morphology [Pending], Sodium Level 139, Potassium Level 3.5, Chloride Level 108H, Carbon Dioxide Level 23, Anion Gap 8, Blood Urea Nitrogen 9, Creatinine 0.8, Estimat Glomerular Filtration Rate > 60, Glucose Level 111H, Calcium Level 7.5L, Phosphorus Level 3.0, Magnesium Level 1.7L, Total Bilirubin 0.4, Aspartate Amino Transf (AST/SGOT) 34, Alanine Aminotran sferase (ALT/SGPT) 16, Alkaline Phosphatase 206H, Total Protein 6.0L, Albumin 2.0L, Globulin 4.0, Albumin/Globulin Ratio 0.5L Current Medications Medications (Trade) Dose Ordered Sig/Jesse Route PRN Reason Start Time Stop Time Status Last Admin Dose Admin Acetaminophen (Tylenol) 650 mg Q4H PRN ORAL PRNH/TEMP 01/05/20 20:15 02/04/20 20:14 01/12/20 03:10 Bisacodyl (Dulcolax) 10 mg DAILY PRN RECTAL Constipation 01/05/20 20:15 04/04/20 20:14 Chlorhexidine Gluconate (Navya-Hex 2%) 1 applic DAILY@1999 TOPIC 01/11/20 20:00 04/10/20 19:59 01/28/20 20:53 Dextrose (Dextrose 50%) 25 ml Q30M PRN IV Hypoglycemia 01/05/20 20:15 04/04/20 20:14 01/24/20 23:53 Dextrose (Dextrose 50%) 50 ml Q30M PRN IV Hypoglycemia 01/05/20 20:15 04/04/20 20:14 Dextrose/Sodium Chloride 1,000 ml @ 60 mls/hr [id number] IV 01/24/20 13:30 02/23/20 13:29 01/28/20 17:53 Lansoprazole (Prevacid) 30 mg Q12HR NG 01/28/20 21:00 02/27/20 20:59 01/28/20 20:53 Linaclotide (Linzess) 290 mcg BEFORE BREAKFAST ORAL 01/10/20 06:30 04/09/20 06:29 01/29/20 06:51 Loperamide HCl (Imodium) 2 mg Q6H PRN NG Diarrhea 01/27/20 15:45 02/26/20 15:44 01/27/20 17:58 Metoclopramide HCl (Reglan) 10 mg EVERY 6 HOURS NG 01/19/20 12:00 02/18/20 11:59 01/29/20 06:51 Metoclopramide HCl (Reglan) 10 mg Q6H PRN IVP Nausea & Vomiting 01/16/20 13:00 02/15/20 12:59 Midodrine (Pro-Amatine) 10 mg Q8HR NG 01/20/20 22:00 04/13/20 17:59 01/29/20 06:50 Ondansetron HCl (Zofran) 4 mg Q6H PRN IVP Nausea & Vomiting 01/10/20 06:30 02/09/20 06:29 Polyethylene Glycol (Miralax) 17 gm BEDTIME NG 01/11/20 21:00 02/08/20 20:59 01/28/20 20:53 Sennosides (Senokot) 8.6 mg QHS NG 01/11/20 21:00 02/04/20 20:59 01/28/20 20:53 Vitamin D (Vitamin D) 3,000 intlu DAILY GT 01/19/20 12:00 02/18/20 11:59 01/28/20 08:37 Assessment/Plan Assessment/Plan IMPRESSION: 1. Severe metabolic acidosis. Corrected; now has combined respiratory and metabolic alkalosis 2. Respiratory failure; now extubated 3. Diarrhea. Resolved 4. Acute renal failure. Nephrology following; 5. Anemia; DISCUSSION: EGD and PEG scheduled Remains obtunded Saturating well on 2L/min O2 Has deep respirations and use of accessory muscles of respiration Will check ABg and CXR Daxa Infante Omar Syed MD Jan 29, 2020 09:32
[2020-01-29] MEDS: Vitamin D 1000 IU Tab GT SCH (09:45)
[2020-01-29] MEDS: D5 1/2NS 1,000 ML IV SCH (10:10)
--- NOTE | 2020-01-29 10:54 | Surgery Progress Note ---
Surgery Progress Note Subjective Procedure Performed Right femoral temporary hemodialysis catheter insertion Additional Comments ill appearing no n/v abg noted pending cxr Objective Last 24 Hour Vital Signs Date Time Temp Pulse Resp B/P (MAP) Pulse Ox O2 Delivery O2 Flow Rate FiO2 01/29/20 09:00 Nasal Cannula 2.0 01/29/20 08:00 111 01/29/20 08:00 97.7 109 24 153/80 (104) 94 01/29/20 07:22 94 Nasal Cannula 2.0 28 01/29/20 04:00 102 01/29/20 04:00 98.2 106 18 118/67 (84) 97 01/29/20 00:00 98.0 98 19 131/71 (91) 98 01/29/20 00:00 102 01/28/20 20:00 97.5 102 20 125/76 (92) 97 01/28/20 20:00 102 01/28/20 16:00 97.9 98 22 144/76 (98) 100 01/28/20 16:00 98 01/28/20 12:00 97.7 103 20 136/74 (94) 97 01/28/20 12:00 93 I&O Intake and Output 01/28/20 01/29/20 19:00 07:00 Intake Total 60 ml 540 ml Output Total 500 ml Balance -440 ml 540 ml IV Total 60 ml 540 ml Output Urine Total 500 ml Cardiovascular: RSR, other Respiratory: decreased breath sounds, other Abdomen: non-tender, present bowel sounds, non-distended Extremities: no tenderness, no cyanosis Laboratory Tests Test 01/28/20 11:33 01/29/20 06:17 01/29/20 09:45 POC Whole Blood Glucose 105 MG/DL (74-106) White Blood Count 3.0 K/UL (4.8-10.8) L Red Blood Count 3.27 M/UL (4.70-6.10) L Hemoglobin 9.3 G/DL (14.2-18.0) L Hematocrit 30.4 % (42.0-52.0) L Mean Corpuscular Volume 93 FL (80-99) Mean Corpuscular Hemoglobin 28.5 PG (27.0-31.0) Mean Corpuscular Hemoglobin Concent 30.7 G/DL (32.0-36.0) L Red Cell Distribution Width 21.0 % (11.6-14.8) H Platelet Count 244 K/UL (150-450) Mean Platelet Volume 6.5 FL (6.5-10.1) Neutrophils (%) (Auto) % (45.0-75.0) Lymphocytes (%) (Auto) % (20.0-45.0) Monocytes (%) (Auto) % (1.0-10.0) Eosinophils (%) (Auto) % (0.0-3.0) Basophils (%) (Auto) % (0.0-2.0) Differential Total Cells Counted 100 Neutrophils % (Manual) 60 % (45-75) Lymphocytes % (Manual) 26 % (20-45) Monocytes % (Manual) 14 % (1-10) H Eosinophils % (Manual) 0 % (0-3) Basophils % (Manual) 0 % (0-2) Band Neutrophils 0 % (0-8) Platelet Estimate Adequate Platelet Morphology Normal Hypochromasia 1+ Anisocytosis 2+ Sodium Level 139 MMOL/L (136-145) Potassium Level 3.5 MMOL/L (3.5-5.1) Chloride Level 108 MMOL/L (98-107) H Carbon Dioxide Level 23 MMOL/L (21-32) Anion Gap 8 mmol/L (5-15) Blood Urea Nitrogen 9 mg/dL (7-18) Creatinine 0.8 MG/DL (0.55-1.30) Estimat Glomerular Filtration Rate > 60 mL/min (>60) Glucose Level 111 MG/DL (74-106) H Calcium Level 7.5 MG/DL (8.5-10.1) L Phosphorus Level 3.0 MG/DL (2.5-4.9) Magnesium Level 1.7 MG/DL (1.8-2.4) L Total Bilirubin 0.4 MG/DL (0.2-1.0) Aspartate Amino Transf (AST/SGOT) 34 U/L (15-37) Alanine Aminotransferase (ALT/SGPT) 16 U/L (12-78) Alkaline Phosphatase 206 U/L (46-116) H Total Protein 6.0 G/DL (6.4-8.2) L Albumin 2.0 G/DL (3.4-5.0) L Globulin 4.0 g/dL Albumin/Globulin Ratio 0.5 (1.0-2.7) L Arterial Blood pH 7.332 (7.350-7.450) Arterial Blood Partial Pressure CO2 37.6 mmHg (35.0-45.0) Arterial Blood Partial Pressure O2 81.7 mmHg (75.0-100.0) Arterial Blood HCO3 19.5 mmol/L (22.0-26.0) L Arterial Blood Oxygen Saturation 95.6 % (95-100) Arterial Blood Base Excess -5.9 (-2-2) L Asael Test Positive Plan Problems: (1) Altered level of consciousness (2) Hypovolemic shock Assessment & Plan: resuscitation extubated monitor respiratory keep hob elevated supplemental O2 Gallbladder demonstrates sludge. No stones, wall thickening, nor pericholecystic fluid. Patient unable to report Wilson's sign Common bile duct measures 3 mm in diameter. No intrahepatic biliary ductal dilatation. Liver demonstrates coarsened echogenicity and surface nodularity. It demonstrates multiple cysts. Portal vein and hepatic veins are patent. The pancreas demonstrates 3 hypoechoic lesions in the head and body, measuring approximately 5 mm in diameter each. Spleen is unremarkable, poorly visualized. Left kidney measures 11.4 cm in length. Right kidney measures 11.3 cm length. Both kidneys demonstrate normal echogenicity. There is severe right and moderate left hydronephrosis. Echogenic foci are seen in the left renal sinus and collecting system. Bladder is empty, contains a Mathew catheter. Non-aneurysmal abdominal aorta . There are bilateral pleural effusions Impression: Bilateral right greater than left hydronephrosis, increased since prior study of 03/20/2019. Etiology not demonstrated Empty bladder with a Mathew catheter 3 hypoechoic lesions within the pancreatic head and body, each measuring about 5 mm. Appearance nonspecific. Recommend further evaluation with pancreas protocol MRI Bilateral pleural effusions Echogenic liver, consistent with hepatocellular disease. Surface likely nodularity raises concern for cirrhosis Gallbladder sludge. Negative for dilated bile ducts Probable nonobstructive left intrarenal calculi Multiple hepatic cysts (3) Lactic acid acidosis (4) Hypernatremia (5) Paraplegia (6) Anemia Assessment & Plan: no active bleeding noted no large hematoma dressings okay likely related to heme will monitor transfuse prbc with HD trend labs thank you (7) Diabetes (8) Weak (9) HTN (hypertension) (10) ARF (acute renal failure) (11) Hypercalcemia (12) Hyperuricemia (13) Dehydration (14) UTI (urinary tract infection) (15) Failure to thrive in adult Assessment & Plan: patient identified to have DTI on bilateral heels right with 5cm x 4cm area of dti not open no drainage no signs of infection left with 3cm x 2cm. pillow under leg optifoam dressings nutritional optimization will follow no acute surgery DAILY ESTIMATED NEEDS: Needs based on underweight, suspected wt loss, HD, CRITICAL CARE/ 57.6kg 25-33 kcals/kg [id number] total kcals 1.2-2 g protein/kg 69-115 g total protein 25-30 mL/kg 8620-6626 total fluid mLs NUTRITION DIAGNOSIS: *Increased kcal and pro needs r/t underweight status, suspected significant wt loss as evidenced by pt @ 71% IBW w/ BMI 17.2, underweight per guidelines, w/ suspected signficant wt loss of 30lbs/19% in 10 months. * Swallowing difficulty R/T dysphagia, respiratory status as evidenced by s/p NGT insertion (01/08), now NPO, s/p code blue (01/10), orally intubated. CURRENT TF:NPO ENTERAL NUTRITION RECOMMENDATIONS: WHEN HEMODYNAMICALLY STABLE: Nepro @ 40ml/hr x 24 hrs to provide 960ml, 1728kcal, 77g prot, 698ml free water WHEN HEMODYNAMICALLY STABLE AND MEDICALLY APPROPRIATE TO FEED: -> initiate TF @ 5ml/hr x 6hrs, advance slowly 5ml q 4-6 hrs as tolerated to goal rate -> HOB over 30 degrees/ water flush per MD WITHOUT HEMODYNAMIC STABILITY -> If medically appropriate to feed, rec trophic feeding of Nepro @ 5ml/hr x 24 hrs to maintain gut integrity (16) Pelvic mass Assessment & Plan: invasive pelvic mass likely prostate necrotic nodes likely spread recommend colonoscopy given invasion possible to rectum oncology input thank you There is a large pelvic mass which is cephalad to but inseparable from the prostate. This also is inseparable from the posterior wall of the bladder and there appears to be circumferential bladder wall thickening. This mass also appears to involve the seminal vesicles. This measures approximately 8.8 cm transverse by 10 cm craniocaudad by 7.4 cm AP. The periphery of this mass is very lobulated. The mass may also invade the adjacent rectum. There is bilateral iliac chain lymphadenopathy, with nodes measuring up to 3 cm in diameter. Some of these nodes are very low in attenuation indicating that they are necrotic. There is also retroperitoneal lymphadenopathy. There is severe right and moderate left hydronephrosis and bilateral hydroureter. The dilated ureters terminate at the level of the mass. No intrinsic renal parenchymal abnormality. The pancreas is unremarkable. No findings corresponding to the areas of low-attenuation described on prior sonogram are evident. No pancreatic ductal dilatation is evident. The liver demonstrates multiple cysts. The gallbladder, bile ducts, spleen, adrenals are unremarkable. The bones demonstrate diffuse involvement with multiple mixed osteolytic/osteosclerotic lesions, mostly sclerotic component predominating. There is a right groin dialysis catheter in place, tip at the level of the iliac venous confluence. There is a nasogastric tube,, tip in the stomach. There is a Mathew catheter. There is a rectal tube lying outside the patient with the balloon inflated within the inner gluteal fold. There are bilateral pleural effusions. There is compressive atelectasis of most if not all of both lower lobes. 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 Compressive atelectasis of most of not all of both lower lobes Other findings as noted, including multiple liver cysts Lázaro Jenkins Jan 29, 2020 10:54
--- NOTE | 2020-01-29 11:15 | General Progress Note ---
Subjective ROS Limited/Unobtainable: No Allergies: Coded Allergies: No Known Allergies (Unverified , 03/18/19) Objective Last 24 Hour Vital Signs Date Time Temp Pulse Resp B/P (MAP) Pulse Ox O2 Delivery O2 Flow Rate FiO2 01/29/20 09:00 Nasal Cannula 2.0 01/29/20 08:00 111 01/29/20 08:00 97.7 109 24 153/80 (104) 94 01/29/20 07:22 94 Nasal Cannula 2.0 28 01/29/20 04:00 102 01/29/20 04:00 98.2 106 18 118/67 (84) 97 01/29/20 00:00 98.0 98 19 131/71 (91) 98 01/29/20 00:00 102 01/28/20 20:00 97.5 102 20 125/76 (92) 97 01/28/20 20:00 102 01/28/20 16:00 97.9 98 22 144/76 (98) 100 01/28/20 16:00 98 01/28/20 12:00 97.7 103 20 136/74 (94) 97 01/28/20 12:00 93 Intake and Output 01/28/20 01/29/20 19:00 07:00 Intake Total 60 ml 540 ml Output Total 500 ml Balance -440 ml 540 ml IV Total 60 ml 540 ml Output Urine Total 500 ml Laboratory Tests 01/28/20 11:33: POC Whole Blood Glucose 105 01/29/20 06:17: White Blood Count 3.0L, Red Blood Count 3.27L, Hemoglobin 9.3L, Hematocrit 30.4L , Mean Corpuscular Volume 93, Mean Corpuscular Hemoglobin 28.5, Mean Corpuscular Hemoglobin Concent 30.7L, Red Cell Distribution Width 21.0H, Platelet Count 244, Mean Platelet Volume 6.5, Neutrophils (%) (Auto) , Lymphocytes (%) (Auto) , Monocytes (%) (Auto) , Eosinophils (%) (Auto) , Basophils (%) (Auto) , Differential Total Cells Counted 100, Neutrophils % (Manual) 60, Lymphocytes % (Manual) 26, Monocytes % (Manual) 14H, Eosinophils % (Manual) 0, Basophils % (Manual) 0, Band Neutrophils 0, Platelet Estimate Adequate, Platelet Morphology Normal, Hypochromasia 1+, Anisocytosis 2+, Sodium Level 139, Potassium Level 3.5, Chloride Level 108H, Carbon Dioxide Level 23, Anion Gap 8, Blood Urea Nitrogen 9, Creatinine 0.8, Estimat Glomerular Filtration Rate > 60, Glucose Level 111H, Calcium Level 7.5L, Phosphorus Level 3.0, Magnesium Level 1.7L, Total Bilirubin 0.4, Aspartate Amino Transf (AST/SGOT) 34, Alanine Aminotransferase (ALT/SGPT) 16, Alkaline Phosphatase 206H, Total Protein 6.0L, Albumin 2.0L, Globulin 4.0, Albumin/Globulin Ratio 0.5L 01/29/20 09:45: Arterial Blood pH 7.332L, Arterial Blood Partial Pressure CO2 37.6, Arterial Blood Partial Pressure O2 81.7, Arterial Blood HCO3 19.5L, Arterial Blood Oxygen Saturation 95.6, Arterial Blood Base Excess -5.9L, Asael Test Positive Height (Feet): 5 Height (Inches): 9.00 Weight (Pounds): 149 General Appearance: no apparent distress EENT: normal ENT inspection Neck: supple Cardiovascular: normal rate Respiratory/Chest: decreased breath sounds Abdomen: normal bowel sounds, non tender, soft Extremities: non-tender Assessment/Plan Status: progressing, unchanged Assessment/Plan: AMS dementia Anemia DM hyper CA elevated AST low albumin COPD RI HTN metastatic prostate CA PEG plans canceled again due to respiratory distress resume NGTF PEG when more stable Paulino Bueno MD Jan 29, 2020 11:15
--- NOTE | 2020-01-29 12:24 | Cardiac Electrophysiology PN ---
Assessment/Plan Assessment/Plan 1. Altered mental status due to severe dehydration in view of sodium of 160 and acute renal failure. On IV fluids and IV antibiotics. Ruled out for [place]. 2. S/P Septic shock off Levophed and on iv Abx On Midodrine 10 tid 3. History of CVA, off Plavix in view of hematuria. 4. Respiratory failure, Extubated 01/22 5. Diabetes. 6. Acute renal failure. Cr 4.2. Had HD once only on 01/11/20. No more HD needed and Cr 1.2 7. Hematuria 8. Anemia with Hb 5.8 and coffee ground emesis. FU Dr Bueno 9. Shock liver with increase AST>2000 10. Metastatic prostate cancer -- w psa 2741 with a Large pelvic mass involving the prostate, bladder, seminal vesicles, presumably representing prostatic malignancy Severe right and moderate left hydronephrosis and bilateral hydroureter, due to ureteral obstruction by the above mass 11. Dysphagia, NGT feeding. PEG pending today KARLO RN and Dr Biswas Subjective Subjective Coded 01/19 for respiratory failure followed by bradycardia and PEA. Extubated 01/23/20. On Venturi Mask 2 liter NC NPO for PEG today Objective Last 24 Hour Vital Signs Date Time Temp Pulse Resp B/P (MAP) Pulse Ox O2 Delivery O2 Flow Rate FiO2 01/29/20 09:00 Nasal Cannula 2.0 01/29/20 08:00 111 01/29/20 08:00 97.7 109 24 153/80 (104) 94 01/29/20 07:22 94 Nasal Cannula 2.0 28 01/29/20 04:00 102 01/29/20 04:00 98.2 106 18 118/67 (84) 97 01/29/20 00:00 98.0 98 19 131/71 (91) 98 01/29/20 00:00 102 01/28/20 20:00 97.5 102 20 125/76 (92) 97 01/28/20 20:00 102 01/28/20 16:00 97.9 98 22 144/76 (98) 100 01/28/20 16:00 98 Intake and Output 01/28/20 01/29/20 19:00 07:00 Intake Total 60 ml 540 ml Output Total 500 ml Balance -440 ml 540 ml IV Total 60 ml 540 ml Output Urine Total 500 ml Laboratory Tests Test 01/29/20 06:17 01/29/20 09:45 White Blood Count 3.0 K/UL (4.8-10.8) L Red Blood Count 3.27 M/UL (4.70-6.10) L Hemoglobin 9.3 G/DL (14.2-18.0) L Hematocrit 30.4 % (42.0-52.0) L Mean Corpuscular Volume 93 FL (80-99) Mean Corpuscular Hemoglobin 28.5 PG (27.0-31.0) Mean Corpuscular Hemoglobin Concent 30.7 G/DL (32.0-36.0) L Red Cell Distribution Width 21.0 % (11.6-14.8) H Platelet Count 244 K/UL (150-450) Mean Platelet Volume 6.5 FL (6.5-10.1) Neutrophils (%) (Auto) % (45.0-75.0) Lymphocytes (%) (Auto) % (20.0-45.0) Monocytes (%) (Auto) % (1.0-10.0) Eosinophils (%) (Auto) % (0.0-3.0) Basophils (%) (Auto) % (0.0-2.0) Differential Total Cells Counted 100 Neutrophils % (Manual) 60 % (45-75) Lymphocytes % (Manual) 26 % (20-45) Monocytes % (Manual) 14 % (1-10) H Eosinophils % (Manual) 0 % (0-3) Basophils % (Manual) 0 % (0-2) Band Neutrophils 0 % (0-8) Platelet Estimate Adequate Platelet Morphology Normal Hypochromasia 1+ Anisocytosis 2+ Sodium Level 139 MMOL/L (136-145) Potassium Level 3.5 MMOL/L (3.5-5.1) Chloride Level 108 MMOL/L (98-107) H Carbon Dioxide Level 23 MMOL/L (21-32) Anion Gap 8 mmol/L (5-15) Blood Urea Nitrogen 9 mg/dL (7-18) Creatinine 0.8 MG/DL (0.55-1.30) Estimat Glomerular Filtration Rate > 60 mL/min (>60) Glucose Level 111 MG/DL (74-106) H Calcium Level 7.5 MG/DL (8.5-10.1) L Phosphorus Level 3.0 MG/DL (2.5-4.9) Magnesium Level 1.7 MG/DL (1.8-2.4) L Total Bilirubin 0.4 MG/DL (0.2-1.0) Aspartate Amino Transf (AST/SGOT) 34 U/L (15-37) Alanine Aminotransferase (ALT/SGPT) 16 U/L (12-78) Alkaline Phosphatase 206 U/L (46-116) H Total Protein 6.0 G/DL (6.4-8.2) L Albumin 2.0 G/DL (3.4-5.0) L Globulin 4.0 g/dL Albumin/Globulin Ratio 0.5 (1.0-2.7) L Arterial Blood pH 7.332 (7.350-7.450) Arterial Blood Partial Pressure CO2 37.6 mmHg (35.0-45.0) Arterial Blood Partial Pressure O2 81.7 mmHg (75.0-100.0) Arterial Blood HCO3 19.5 mmol/L (22.0-26.0) L Arterial Blood Oxygen Saturation 95.6 % (95-100) Arterial Blood Base Excess -5.9 (-2-2) L Asael Test Positive Objective HEAD AND NECK: NGT in place LUNGS: Coarse rhonchi. CARDIOVASCULAR: Regular S1 and S2 with no gallop. ABDOMEN: Soft. EXTREMITIES: No pitting edema. Kevin Lopez MD Jan 29, 2020 12:24
--- NOTE | 2020-01-29 12:42 | Nephrology Progress Note ---
Assessment/Plan Problem List: (1) ARF (acute renal failure) (2) Hypernatremia (3) Hypovolemic shock (4) Altered level of consciousness (5) Hypercalcemia (6) Hyperuricemia (7) Pelvic mass Assessment: Prostate cancer Assessment Acute renal failure Possible underlying chronic kidney failure Severe dehydration Hypernatremia indicative of severe water deficit Severe hyperuricemia, partly due to dehydration and renal failure Acute metabolic and toxic encephalopathy Mild, malnutrition Anemia Lactic acid, possible sepsis Hypercalcemia Plan No murmur : Labs reviewed. Abnormal electrolyte addressed. Continue per consultants. January 27: Labs reviewed. Abnormal electrolyte addressed. Low potassium low phosphorus and low magnesium replaced. Continue per consultants. January 26: No labs drawn today. Status quo. Continue per consultants. Will check renal parameters tomorrow. January 25: Renal parameters stable. On Venturi mask. Continue per current management. January 24: Renal parameters stable. On Venturi mask. Discussed with RN. Due for PEG insertion today. January 23: Stable from renal standpoint of view. On Venturi mask. Low magnesium addressed. Continue per consultants. January 22: Patient off pressors. Patient extubated. Labs reviewed. Renal parameters are stable. January 21: Patient on low-dose pressors. Remains hypotensive. Renal parameters stable. Weaning trial in process. Mental status remains poor. January 20: Patient in ICU. Intubated. Full code. Has advanced prostate cancer. On IV Lasix drip. Low magnesium and low phosphorus and low potassium noted and addressed. Continue per consultants. January 19: Patient in ICU. Intubated. Was coded yesterday. Labs reviewed. Medication list reviewed and adjusted. Continue per consultants. Patient full code. Prognosis poor. PSA over 2700 January 18: Labs reviewed. IV fluid discontinued. IV calcium dose decreased. Midodrine dose decreased. Reglan and Protonix changed to GT route. Vitamin D initiated. Continue to monitor renal parameters and calcium level. January 17: Labs reviewed. Abnormal electrolyte addressed. Continue per consultants. January 16: Patient now in telemetry. Labs pending. Continue to monitor renal parameters. Continue per consultants. January 15: Still in ICU. Doing well post extubation. Renal parameters improving. Not requiring any more dialysis treatment after the first dialysis treatment. Medications reviewed. Continue per consultants. January 14: Remains in ICU. Tolerating extubation. Labs reviewed. Abnormal electrolytes addressed. Serum creatinine lowering. Continue per current management. Stop Phos binders. Increase calcium IV. January 13: In ICU. Now extubated. Only dialyzed once. Urine output maintained. Serum creatinine down to 2.5. Patient has NG tube. Continue to monitor renal parameters. Continue per consultants. Abnormal electrolytes addr betty. January 12: Remains in ICU. Intubated. Transfused yesterday. Abnormal electrolytes addressed. Dialyzed once January 10. Serum creatinine stable. Will adjust IV fluid. Monitor renal parameters. Dialysis as needed. Calcium gluconate IV ordered. Ionized calcium level ordered with tomorrow's labs. January 11: Patient in ICU. Intubated. On Levophed. Hemoglobin low. Due for transfusion. Electrolyte abnormalities noted and addressed. Patient was dialyzed yesterday. Will check lab tomorrow. Dialysis as needed. Discussed with SELIN Srivastava. January 10: Patient is doing poorly. Blood pressure low. ABG abnormal with met abolic acidosis. IV sodium bicarb given. Serum creatinine reno. Patient has acute renal failure. Nontunneled dialysis catheter replacement ordered.. Patient need life saving dialysis treatment SRINIVAS. January 09: Labs reviewed. IV D5 and a half with sodium bicarb initiated. Serum creatinine higher. Continue to monitor renal parameters. NG feeding was changed to Nepro. Patient remains full code. Poor prognosis. January 08: Labs reviewed. IV D5W discontinued. 500 cc 3% saline ordered. NG tube for feeding and for medications. Allopurinol dose increased. Continue to monitor renal parameters serum calcium and phosphorus. January 07: Labs reviewed. Serum calcium remains elevated. Uric acid still elevated. Will give pamidronate 60 mg IV piggyback once for hypercalcemia. Continue to monitor renal parameters. Continue D5W 150 cc an hour. Start Bicitra 30 cc p.o. every 6 hours. Add allopurinol D5W IV hydration Albumin bolus N.p.o. until able to take p.o. Antibiotics Monitor renal parameters monitor calcium, monitor uric acid Subjective ROS Limited/Unobtainable: Yes Objective Objective Last 24 Hour Vital Signs Date Time Temp Pulse Resp B/P (MAP) Pulse Ox O2 Delivery O2 Flow Rate FiO2 01/29/20 09:00 Nasal Cannula 2.0 01/29/20 08:00 111 01/29/20 08:00 97.7 109 24 153/80 (104) 94 01/29/20 07:22 94 Nasal Cannula 2.0 28 01/29/20 04:00 102 01/29/20 04:00 98.2 106 18 118/67 (84) 97 01/29/20 00:00 98.0 98 19 131/71 (91) 98 01/29/20 00:00 102 01/28/20 20:00 97.5 102 20 125/76 (92) 97 01/28/20 20:00 102 01/28/20 16:00 97.9 98 22 144/76 (98) 100 01/28/20 16:00 98 Intake and Output 01/28/20 01/29/20 19:00 07:00 Intake Total 60 ml 540 ml Output Total 500 ml Balance -440 ml 540 ml IV Total 60 ml 540 ml Output Urine Total 500 ml Current Medications Medications (Trade) Dose Ordered Sig/Jesse Route PRN Reason Start Time Stop Time Status Last Admin Dose Admin Acetaminophen (Tylenol) 650 mg Q4H PRN ORAL PRNH/TEMP 01/05/20 20:15 02/04/20 20:14 01/12/20 03:10 Bisacodyl (Dulcolax) 10 mg DAILY PRN RECTAL Constipation 01/05/20 20:15 04/04/20 20:14 Chlorhexidine Gluconate (Navya-Hex 2%) 1 applic DAILY@2000 TOPIC 01/11/20 20:00 04/10/20 19:59 01/28/20 20:53 Dextrose (Dextrose 50%) 25 ml Q30M PRN IV Hypoglycemia 01/05/20 20:15 04/04/20 20:14 01/24/20 23:53 Dextrose (Dextrose 50%) 50 ml Q30M PRN IV Hypoglycemia 01/05/20 20:15 04/04/20 20:14 Dextrose/Sodium Chloride 1,000 ml @ 60 mls/hr [id number] IV 01/24/20 13:30 02/23/20 13:29 01/28/20 17:53 Lansoprazole (Prevacid) 30 mg Q12HR NG 01/28/20 21:00 02/27/20 20:59 01/29/20 09:44 Linaclotide (Linzess) 290 mcg BEFORE BREAKFAST ORAL 01/10/20 06:30 04/09/20 06:29 01/29/20 06:51 Loperamide HCl (Imodium) 2 mg Q6H PRN NG Diarrhea 01/27/20 15:45 02/26/20 15:44 01/27/20 17:58 Metoclopramide HCl (Reglan) 10 mg EVERY 6 HOURS NG 01/19/20 12:00 02/18/20 11:59 01/29/20 12:35 Metoclopramide HCl (Reglan) 10 mg Q6H PRN IVP Nausea & Vomiting 01/16/20 13:00 02/15/20 12:59 Midodrine (Pro-Amatine) 10 mg Q8HR NG 01/20/20 22:00 04/13/20 17:59 01/29/20 06:50 Ondansetron HCl (Zofran) 4 mg Q6H PRN IVP Nausea & Vomiting 01/10/20 06:30 02/09/20 06:29 Polyethylene Glycol (Miralax) 17 gm BEDTIME NG 01/11/20 21:00 02/08/20 20:59 01/28/20 20:53 Sennosides (Senokot) 8.6 mg QHS NG 01/11/20 21:00 02/04/20 20:59 01/28/20 20:53 Vitamin D (Vitamin D) 3,000 intlu DAILY GT 01/19/20 12:00 02/18/20 11:59 01/29/20 09:45 Laboratory Tests 01/29/20 06:17: White Blood Count 3.0L, Red Blood Count 3.27L, Hemoglobin 9.3L, Hematocrit 30.4L , Mean Corpuscular Volume 93, Mean Corpuscular Hemoglobin 28.5, Mean Corpuscular Hemoglobin Concent 30.7L, Red Cell Distribution Width 21.0H, Platelet Count 244, Mean Platelet Volume 6.5, Neutrophils (%) (Auto) , Lymphocytes (%) (Auto) , Monocytes (%) (Auto) , Eosinophils (%) (Auto) , Basophils (%) (Auto) , Differential Total Cells Counted 100, Neutrophils % (Manual) 60, Lymphocytes % (Manual) 26, Monocytes % (Manual) 14H, Eosinophils % (Manual) 0, Basophils % (Manual) 0, Band Neutrophils 0, Platelet Estimate Adequate, Platelet Morphology Normal, Hypochromasia 1+, Anisocytosis 2+, Sodium Level 139, Potassium Level 3.5, Chloride Level 108H, Carbon Dioxide Level 23, Anion Gap 8, Blood Urea Nitrogen 9, Creatinine 0.8, Estimat Glomerular Filtration Rate > 60, Glucose Level 111H, Calcium Level 7.5L, Phosphorus Level 3.0, Magnesium Level 1.7L, Total Bilirubin 0.4, Aspartate Amino Transf (AST/SGOT) 34, Alanine Aminotransferase (ALT/SGPT) 16, Alkaline Phosphatase 206H, Total Protein 6.0L, Albumin 2.0L, Globulin 4.0, Albumin/Globulin Ratio 0.5L 01/29/20 09:45: Arterial Blood pH 7.332L, Arterial Blood Partial Pressure CO2 37.6, Arterial Blood Partial Pressure O2 81.7, Arterial Blood HCO3 19.5L, Arterial Blood Oxygen Saturation 95.6, Arterial Blood Base Excess -5.9L, Asael Test Positive Height (Feet): 5 Height (Inches): 9.00 Weight (Pounds): 149 General Appearance: no apparent distress Cardiovascular: tachycardia Respiratory/Chest: decreased breath sounds Abdomen: distended Dhiraj Biswas MD Jan 29, 2020 12:42
--- NOTE | 2020-01-29 14:44 | Diagnostic Imaging Report ---
Indication: Shortness of breath Technique: One view of the chest Comparison: 01/23/2020 Findings: Interim marked worsening of previously demonstrated left pleural effusion, now quite large. Moderate right pleural effusion appears unchanged. There is suggestion of increasing interstitial congestion bilaterally. Previously demonstrated endotracheal tube is been removed. Nasogastric tube remains in good position Impression: Enlarged and now quite large left pleural effusion Increasing interstitial congestion Interim extubation Stable right pleural effusion
[2020-01-29] MEDS ORDERED: D5 1/2NS 1000ml IV ONE (15:25)
--- NOTE | 2020-01-29 19:57 | General Progress Note ---
Subjective ROS Limited/Unobtainable: Yes Allergies: Coded Allergies: No Known Allergies (Unverified , 03/18/19) Objective Last 24 Hour Vital Signs Date Time Temp Pulse Resp B/P (MAP) Pulse Ox O2 Delivery O2 Flow Rate FiO2 01/29/20 18:59 96 Nasal Cannula 2.0 28 01/29/20 16:00 97.9 94 20 130/72 (91) 99 01/29/20 16:00 94 01/29/20 12:00 97.5 96 20 137/88 (104) 96 01/29/20 12:00 93 01/29/20 09:00 Nasal Cannula 2.0 01/29/20 08:00 111 01/29/20 08:00 97.7 109 24 153/80 (104) 94 01/29/20 07:22 94 Nasal Cannula 2.0 28 01/29/20 04:00 102 01/29/20 04:00 98.2 106 18 118/67 (84) 97 01/29/20 00:00 98.0 98 19 131/71 (91) 98 01/29/20 00:00 102 01/28/20 20:00 97.5 102 20 125/76 (92) 97 01/28/20 20:00 102 Intake and Output 01/28/20 01/29/20 19:00 07:00 Intake Total 60 ml 540 ml Output Total 500 ml Balance -440 ml 540 ml IV Total 60 ml 540 ml Output Urine Total 500 ml Laboratory Tests 01/29/20 06:17: White Blood Count 3.0L, Red Blood Count 3.27L, Hemoglobin 9.3L, Hematocrit 30.4L , Mean Corpuscular Volume 93, Mean Corpuscular Hemoglobin 28.5, Mean Corpuscular Hemoglobin Concent 30.7L, Red Cell Distribution Width 21.0H, Platelet Count 244, Mean Platelet Volume 6.5, Neutrophils (%) (Auto) , Lymphocytes (%) (Auto) , Monocytes (%) (Auto) , Eosinophils (%) (Auto) , Basophils (%) (Auto) , Differential Total Cells Counted 100, Neutrophils % (Manual) 60, Lymphocytes % (Manual) 26, Monocytes % (Manual) 14H, Eosinophils % (Manual) 0, Basophils % (Manual) 0, Band Neutrophils 0, Platelet Estimate Adequate, Platelet Morphology Normal, Hypochromasia 1+, Anisocytosis 2+, Sodium Level 139, Potassium Level 3.5, Chloride Level 108H, Carbon Dioxide Level 23, Anion Gap 8, Blood Urea Nitrogen 9, Creatinine 0.8, Estimat Glomerular Filtration Rate > 60, Glucose Level 111H, Calcium Level 7.5L, Phosphorus Level 3.0, Magnesium Level 1.7L, Total Bilirubin 0.4, Aspartate Amino Transf (AST/SGOT) 34, Alanine Aminotransferase (ALT/SGPT) 16, Alkaline Phosphatase 206H, Total Protein 6.0L, Albumin 2.0L, Globulin 4.0, Albumin/Globulin Ratio 0.5L 01/29/20 09:45: Arterial Blood pH 7.332L, Arterial Blood Partial Pressure CO2 37.6, Arterial Blood Partial Pressure O2 81.7, Arterial Blood HCO3 19.5L, Arterial Blood Oxygen Saturation 95.6, Arterial Blood Base Excess -5.9L, Asael Test Positive 01/29/20 12:59: POC Whole Blood Glucose [Pending] 01/29/20 16:32: POC Whole Blood Glucose 78 Height (Feet): 5 Height (Inches): 9.00 Weight (Pounds): 149 Assessment/Plan Problem List: (1) Altered level of consciousness ICD Codes: R40.4 - Transient alteration of awareness SNOMED: 6890975 (2) Hypernatremia ICD Codes: E87.0 - Hyperosmolality and hypernatremia SNOMED: 966444718 (3) Paraplegia ICD Codes: G82.20 - Paraplegia, unspecified SNOMED: 08275481 (4) Anemia ICD Codes: D64.9 - Anemia, unspecified SNOMED: 979725944 (5) Diabetes ICD Codes: E11.9 - Type 2 diabetes mellitus without complications SNOMED: 07114920 (6) HTN (hypertension) ICD Codes: I10 - Essential (primary) hypertension SNOMED: 58974779 (7) ARF (acute renal failure) ICD Codes: N17.9 - Acute kidney failure, unspecified SNOMED: 38397129 (8) Dehydration ICD Codes: E86.0 - Dehydration SNOMED: 15986161 (9) UTI (urinary tract infection) ICD Codes: N39.0 - Urinary tract infection, site not specified SNOMED: 79112004 (10) Failure to thrive in adult ICD Codes: R62.7 - Adult failure to thrive SNOMED: 949842620 Status: progressing, unchanged Assessment/Plan: azotemia dehydration afebrile htn check lytes no sob Juan Diego Randall MD Jan 29, 2020 19:57
[2020-01-29] MEDS: Sennosides 8.6mg tab NG SCH (20:39)
[2020-01-29] MEDS: Miralax 17gm pkt NG SCH (20:39)
[2020-01-29] MEDS: Dyna-Hex 2% Top Sol 2oz TOPIC SCH (20:39)
--- NOTE | 2020-01-29 23:17 | Emergency Room Report ---
History of Present Illness General Chief Complaint: Altered Level of Consciousness Source: Medical Record, PMD Present Illness Allergies: Coded Allergies: No Known Allergies (Unverified , 03/18/19) COVID-19 Screening Contact w/high risk pt: No Experienced COVID-19 symptoms?: No COVID-19 Testing performed [employer]: Yes COVID-19 Screening: Negative COVID-19 COVID-19 Testing Source: 11/28/19 Nursing Documentation-PMH Past Medical History Deferred: Pt Cognitively Impaired Past Medical History: No History, Except For Hx Cardiac Problems: Yes Hx Hypertension: Yes Hx Pacemaker: No Hx Asthma: No Hx COPD: Yes Hx Diabetes: Yes Hx Cancer: No Hx Gastrointestinal Problems: No History Of Psychiatric Problem: Yes - PSYCHOSIS,BIPOLAR Hx Neurological Problems: Yes Hx Dementia: Yes Hx Alzheimer's Disease: No Hx Parkinson's Disease: Yes Hx Meningitis: No Hx Encephalitis: No Hx Seizures: No Hx Epilepsy: No Hx Multiple Sclerosis: No Hx Cerebral Palsy: No Hx Amyotrophic Lat Sclerosis: No Hx Guillian-Fulton Syndrome: No Hx Paralysis: Yes - paraplegia Hx Peripheral Neuropathy: No Hx Spinal Cord Injury: No Hx Head Trauma: No Hx Traumatic Brain Injury: No Hx Memory Loss: No Hx Concentration Difficulty: Yes Hx Speech Problem: No Hx Tremors: No Hx Vertigo: No Hx Dizziness: No Hx Syncope: No Hx Headaches: No Hx Aphasia: No Hx Dysphasia: No Hx Numbness: No Hx Weakness: Yes Hx Fatigue: Yes Hx Neurologic Surgery: No Hx Brain Shunt: No Physical Exam Vital Signs Date Time Temp Pulse Resp B/P (MAP) Pulse Ox O2 Delivery O2 Flow Rate FiO2 01/25/20 07:00 95 14 89/62 (71) 100 01/25/20 07:28 Venturi Mask 2.0 24 01/25/20 08:00 97.9 Procedures CPR/Code Blue CPR/Code Blue Narrative See MDM section of this note for full narrative. Intubation Intubation : Consent: Emergent Intubation Method: orotracheal Tube Size (cm): 7.0 Breath Sounds after Intubation: equal Intubation Complications: no complications Progress/Xray Impression: Endotracheal tube past clavicles and above the héctor Attempts: One Patient Tolerated: Well Complications: None Medical Decision Making Diagnostic Impression: Primary Impression: Hypernatremia Additional Impressions: Lactic acid acidosis Hypovolemic shock Dehydration ER Course Called the patient bedside for CODE BLUE. The patient had been on nonrebreather with worsening respiratory status. He had been previously intubated according to nursing report. Ongoing compressions on my arrival. The patient receiving epinephrine and bicarb per ACLS protocol. He was intubated by direct utilization by me with bilateral breath sounds and confirmatory capnography. ROSC was achieved and patient was transferred to ICU. Post intubation x-ray shows appropriate position of endotracheal tube. No pneumothorax noted. Initially the patient was found in rapid atrial fibrillation however on reassessment in the ICU he appears to be in sinus tachycardia with rate improving. Pressures are stable. Oxygenating 100%. Further care per ICU team. Last Vital Signs Date Time Temp Pulse Resp B/P (MAP) Pulse Ox O2 Delivery O2 Flow Rate FiO2 01/29/20 21:00 97.9 94 20 130/72 (91) 99 01/29/20 18:59 Nasal Cannula 2.0 28 Disposition: ADMITTED INPATIENT Condition: Serious Referrals: Farrukh Ríos DO (PCP) Fabio Cotter MD Jan 29, 2020 23:17
--- NOTE | 2020-01-29 23:20 | Diagnostic Imaging Report ---
EXAM: XR Chest, 1 View CLINICAL HISTORY: S/P INTUB TECHNIQUE: Frontal view of the chest. COMPARISON: 01/23/2020 FINDINGS: Lungs: Patchy bilateral airspace opacities could represent multifocal pneumonia, inflammation, or pulmonary edema. Retrocardiac atelectasis without or with consolidation. Pleural space: Bilateral small pleural effusions with passive atelectasis. No pneumothorax. Heart: Unremarkable. No cardiomegaly. Mediastinum: Unremarkable. Bones/joints: No acute abnormality Tubes, lines and devices: ETT 5.1 cm above héctor. Enteric tube with tip and proximal sideport below the gastroesophageal junction. Other findings: Cardioversion pad on the chest. IMPRESSION: 1. ETT 5.1 cm above héctor. 2. Enteric tube with tip and proximal sideport below the gastroesophageal junction. 3. Cardioversion pad on the chest. 4. Patchy bilateral airspace opacities could represent multifocal pneumonia, inflammation, or pulmonary edema. 5. Bilateral small pleural effusions with passive atelectasis. 6. Retrocardiac atelectasis without or with consolidation.
[2020-01-30] VITALS (43 sets, daily range): BP systolic 65–162; BP diastolic 42–86
[2020-01-30] MEDS: Norepinephrine 4mg/NS Premix 250 ML IV SCH (00:35)
[2020-01-30] MEDS: D5 1/2NS 1,000 ML IV SCH ×3 (02:50→13:00)
[2020-01-30 04:44] LABS: HEMATOCRIT 28.3 % (42.0-52.0); HEMOGLOBIN 8.6 G/DL (14.2-18.0); MEAN CORPUSCULAR VOLUME 92 FL (80-99); PLATELET COUNT 246 K/UL (150-450); RED BLOOD COUNT 3.08 M/UL (4.70-6.10); RED CELL DISTRIBUTION WIDTH 20.4 % (11.6-14.8); WHITE BLOOD COUNT 4.1 K/UL (4.8-10.8)
[2020-01-30] MEDS: Midodrine 10mg tab NG SCH ×3 (05:35→21:51)
[2020-01-30] MEDS: Metoclopramide 10mg/10ml Liq NG SCH ×3 (05:35→18:08)
--- NOTE | 2020-01-30 06:46 | Hematology/Onc Progress Note ---
Assessment/Plan Assessment/Plan Assessment/Recs # Metastatic prostate cancer -- w psa 2741, has a Large pelvic mass as described involving the prostate, bladder, seminal vesicles, presumably representing prostatic malignancy --> CT Evidence of disseminated malignancy, with extensive lymphadenopathy of and evidenc of diffuse osseous metastases Severe right and moderate left hydronephrosis and bilateral hydroureter, due to ureteral obstruction by the above mass --> tumor markers ordered, psa 2741 --> after above reviewed, consider further biopsy of prostate with uro as needed # Pancytopenia with initially Anemia due to underlying chronic medical issues, multifactorial v Gi bleed v malignancy --> Anemia workup has been ordered, rule out gi bleed --> No evidence of hemolysis is noted, peripheral smear has been reviewed. --> Hgb goal >7. Transfuse prn. --> Epogen or iron at this time is not particularly indicated --> Medications have been reviewed --> low threshold for gi evaluation in case has occult + --> hgb 10-->9.7-->9.2->10-->8.6-->7.7-->5-->8.3->9.3->7.8-->8.2-->8.1-->9.3-->9.9->10 --> 11/8 flow cytometry ordered bc of nucleated cells on smear-->neg --> wbc 5-->4-->3.9-->4 --> plt 150-->98-->82-->51->49-->46-->50-->68-->88-->109 --> hep and hiv panel--NEG --> us abd-->shows 3 small lesions, requires further eval --> CT a/p reviewed # Multiple lesions noted in pancreas --> MRI abd ordered--> nondiagnostic --> CT of the abd reviewed # Protein caloric malnutrition --> daily calorie counts --> daily weights --> mirtazapine started # Acute renal failure --> continue on ivfs --> as per renal # Hypokalemia --> replete with K # Severe dehydration --> ivfs ongoing # Hypernatremia indicative of severe water deficit # Severe hyperuricemia, partly due to dehydration and renal failure # Acute metabolic and toxic encephalopathy # Mild, malnutrition # Psych issues per psych # Lactic acid, possible sepsis # Dvt ppx heparin sq->Scds The timing of this note does not necessarily reflect the time of the patient was seen. Greatly appreciate consultation. Subjective Constitutional: Denies: no symptoms, chills, fever, malaise, weakness, other Cardiovascular: Denies: no symptoms, chest pain, edema, irregular heart rate, lightheadedness, palpitations, syncope, other Respiratory: Denies: no symptoms, cough, shortness of breath, SOB with excertion, SOB at rest, sputum, wheezing, other Gastrointestinal/Abdominal: Denies: no symptoms, abdomen distended, abdominal pain, black stools, tarry stools, blood in stool, constipated, diarrhea, difficulty swallowing, nausea, poor appetite, poor fluid intake, rectal bleeding, vomiting, other Genitourinary: Denies: no symptoms, burning, discharge, frequency, flank pain, hematuria, incontinence, pain, urgency, other Endocrine: Denies: no symptoms, excessive sweating, flushing, intolerance to cold, intolerance to heat, increased hunger, increased thirst, increased urine, unexplained weight gain, unexplained weight loss, other Allergies: Coded Allergies: No Known Allergies (Unverified , 03/18/19) Subjective 01/07 meds noted, no bleeding, hgb 10, no hemolysis, hgb 10.1 01/08 labs reviewed, vi [facility]is, no major events, no bleeding, hgb lower 01/09 labs noted, no bleeding, vi rn, no major changes, plt lower 01/10 did have epistaxis overnight, no bleeding, night sweats, epistaxis better 01/12 icu, remains on vent, levo, no bleeding, meds noted 01/13 remains in icu, no bleeding, on levo, no major changes 01/14 icu, is on 1l, restarints are off, no bleeding, no night sweats 01/15 icu, meds noted, with diarrhea, rectal tube reinserted, on nc 01/16 out of icu, no bleeding, meds reviewed, cbc ad bmp pending 01/17 unable to lay still for the mri, thus ct ordered, vi solis 01/19 hgb 6.9, no bleeding, no hemolysis, ct reviewed 01/20 obtunded, meds reviewed, hgb is better, in icu 01/21 obtunded, npo, labs hjave been reviewed, hgb 9.2 01/22 obtunded, in icu, no bleeding, plt 109 01/23 obtunded still icu, on venturimask, meds reviewed, labs noted 01/24 obtunded, in icu, labs reviewed, meds noted, wbc 4.1, plt 133 01/26 is out of the icu, no bleeding, meds noted, labs ordered 01/27 nonverbal, out of icu, on feedigs, no bleeding, labs reviewed 01/28 icu, nv, is on midrinone, linzess, ivf 01/29 icu, off levop, ngt restarted, meds noted Objective Objective Current Medications Medications (Trade) Dose Ordered Sig/Jesse Route PRN Reason Start Time Stop Time Status Last Admin Dose Admin Acetaminophen (Tylenol) 650 mg Q4H PRN ORAL PRNH/TEMP 01/05/20 20:15 02/04/20 20:14 01/12/20 03:10 Bisacodyl (Dulcolax) 10 mg DAILY PRN RECTAL Constipation 01/05/20 20:15 04/04/20 20:14 Chlorhexidine Gluconate (Navya-Hex 2%) 1 applic DAILY@2000 TOPIC 01/11/20 20:00 04/10/20 19:59 01/29/20 20:39 Dextrose (Dextrose 50%) 25 ml Q30M PRN IV Hypoglycemia 01/05/20 20:15 04/04/20 20:14 01/24/20 23:53 Dextrose (Dextrose 50%) 50 ml Q30M PRN IV Hypoglycemia 01/05/20 20:15 04/04/20 20:14 Dextrose/Sodium Chloride 1,000 ml @ 60 mls/hr [id number] IV 01/24/20 13:30 02/23/20 13:29 01/28/20 17:53 Lansoprazole (Prevacid) 30 mg Q12HR NG 01/28/20 21:00 02/27/20 20:59 01/29/20 20:39 Linaclotide (Linzess) 290 mcg BEFORE BREAKFAST ORAL 01/10/20 06:30 04/09/20 06:29 01/30/20 05:35 Loperamide HCl (Imodium) 2 mg Q6H PRN NG Diarrhea 01/27/20 15:45 02/26/20 15:44 01/27/20 17:58 Metoclopramide HCl (Reglan) 10 mg EVERY 6 HOURS NG 01/19/20 12:00 02/18/20 11:59 01/30/20 05:35 Metoclopramide HCl (Reglan) 10 mg Q6H PRN IVP Nausea & Vomiting 01/16/20 13:00 02/15/20 12:59 Midodrine (Pro-Amatine) 10 mg Q8HR NG 01/20/20 22:00 04/13/20 17:59 01/30/20 05:35 Norepinephrine Bitartrate 250 ml @ 7.5 mls/hr Q24H IV 01/30/20 00:30 02/02/20 00:23 01/30/20 00:35 Ondansetron HCl (Zofran) 4 mg Q6H PRN IVP Nausea & Vomiting 01/10/20 06:30 02/09/20 06:29 Polyethylene Glycol (Miralax) 17 gm BEDTIME NG 01/11/20 21:00 02/08/20 20:59 01/29/20 20:39 Sennosides (Senokot) 8.6 mg QHS NG 01/11/20 21:00 02/04/20 20:59 01/29/20 20:39 Vitamin D (Vitamin D) 3,000 intlu DAILY GT 01/19/20 12:00 02/18/20 11:59 01/29/20 09:45 Last 24 Hour Vital Signs Date Time Temp Pulse Resp B/P (MAP) Pulse Ox O2 Delivery O2 Flow Rate FiO2 01/30/20 06:00 99 23 99/65 (76) 100 01/30/20 05:30 98 24 95/64 (74) 100 01/30/20 05:00 96 25 103/65 (78) 100 01/30/20 04:00 97.4 95 25 98/59 (72) 100 01/30/20 04:00 70 01/30/20 04:00 Mechanical Ventilator 01/30/20 03:45 96 24 92/49 (63) 100 01/30/20 03:30 97 23 99/70 (80) 100 01/30/20 03:15 95 20 98/50 (66) 100 01/30/20 03:13 97 01/30/20 03:10 94 19 70 01/30/20 03:00 90 15 101/63 (76) 100 01/30/20 02:00 72 15 117/63 (81) 100 01/30/20 01:45 71 14 162/86 (111) 100 01/30/20 01:30 69 15 134/72 (92) 100 01/30/20 01:15 70 15 123/65 (84) 100 01/30/20 01:00 73 15 107/66 (80) 100 01/30/20 00:45 92 15 81/53 (62) 100 01/30/20 00:35 72/42 01/30/20 00:30 94 15 72/42 (52) 100 01/30/20 00:15 98 15 68/43 (51) 100 01/30/20 00:00 98.0 99 15 65/42 (50) 100 01/30/20 00:00 70 01/29/20 23:45 102 16 64/41 (49) 100 01/29/20 23:34 112 24 61/43 (49) 100 01/29/20 23:33 113 30 54/42 (46) 100 01/29/20 23:30 Mechanical Ventilator 01/29/20 23:30 115 29 61/42 (48) 100 01/29/20 23:25 70 01/29/20 23:22 127 24 100 Mechanical Ventilator 01/29/20 23:15 118 20 108/67 (81) 100 01/29/20 23:14 127 24 100 01/29/20 23:11 118 01/29/20 23:06 140 20 103/68 (80) 01/29/20 21:00 97.9 94 20 130/72 (91) 99 01/29/20 20:00 104 01/29/20 20:00 98.1 102 24 124/72 (89) 99 01/29/20 18:59 96 Nasal Cannula 2.0 28 01/29/20 16:00 97.9 94 20 130/72 (91) 99 01/29/20 16:00 94 01/29/20 12:00 97.5 96 20 137/88 (104) 96 11/24/20 12:00 93 01/29/20 09:00 Nasal Cannula 2.0 01/29/20 08:00 111 01/29/20 08:00 97.7 109 24 153/80 (104) 94 01/29/20 07:22 94 Nasal Cannula 2.0 28 01/29/20 04:00 102 01/29/20 04:00 98.2 106 18 118/67 (84) 97 01/29/20 00:00 98.0 98 19 131/71 (91) 98 01/29/20 00:00 102 01/28/20 20:00 97.5 102 20 125/76 (92) 97 01/28/20 20:00 102 01/28/20 16:00 97.9 98 22 144/76 (98) 100 01/28/20 16:00 98 01/28/20 12:00 97.7 103 20 136/74 (94) 97 01/28/20 12:00 93 01/28/20 09:20 Nasal Cannula 2.0 01/28/20 08:00 97.7 93 22 146/79 (101) 100 01/28/20 08:00 94 Intake and Output 01/29/20 01/30/20 19:00 07:00 Intake Total 30 ml 395.000 ml Output Total 950 ml 675 ml Balance -920 ml -280.000 ml IV Total 375.000 ml Tube Feeding 30 ml 20 ml Output Urine Total 950 ml 675 ml Stool Total 0 ml Labs Test 01/27/20 11:45 01/27/20 17:41 01/27/20 23:33 01/28/20 05:27 POC Whole Blood Glucose 117 MG/DL (74-106) 107 MG/DL (74-106) 99 MG/DL (74-106) 95 MG/DL (74-106) Test 01/28/20 05:30 01/28/20 11:33 01/29/20 06:17 01/29/20 09:45 White Blood Count 6.0 K/UL (4.8-10.8) 3.0 K/UL (4.8-10.8) Red Blood Count 3.40 M/UL (4.70-6.10) 3.27 M/UL (4.70-6.10) Hemoglobin 9.7 G/DL (14.2-18.0) 9.3 G/DL (14.2-18.0) Hematocrit 31.3 % (42.0-52.0) 30.4 % (42.0-52.0) Mean Corpuscular Volume 92 FL (80-99) 93 FL (80-99) Mean Corpuscular Hemoglobin 28.5 PG (27.0-31.0) 28.5 PG (27.0-31.0) Mean Corpuscular Hemoglobin Concent 31.0 G/DL (32.0-36.0) 30.7 G/DL (32.0-36.0) Red Cell Distribution Width 20.3 % (11.6-14.8) 21.0 % (11.6-14.8) Platelet Count 221 K/UL (150-450) 244 K/UL (150-450) Mean Platelet Volume 7.0 FL (6.5-10.1) 6.5 FL (6.5-10.1) Neutrophils (%) (Auto) 71.6 % (45.0-75.0) % (45.0-75.0) Lymphocytes (%) (Auto) 12.0 % (20.0-45.0) % (20.0-45.0) Monocytes (%) (Auto) 14.6 % (1.0-10.0) % (1.0-10.0) Eosinophils (%) (Auto) 0.4 % (0.0-3.0) % (0.0-3.0) Basophils (%) (Auto) 1.4 % (0.0-2.0) % (0.0-2.0) Sodium Level 139 MMOL/L (136-145) 139 MMOL/L (136-145) Potassium Level 3.2 MMOL/L (3.5-5.1) 3.5 MMOL/L (3.5-5.1) Chloride Level 108 MMOL/L (98-107) 108 MMOL/L (98-107) Carbon Dioxide Level 19 MMOL/L (21-32) 23 MMOL/L (21-32) Anion Gap 12 mmol/L (5-15) 8 mmol/L (5-15) Blood Urea Nitrogen 10 mg/dL (7-18) 9 mg/dL (7-18) Creatinine 0.8 MG/DL (0.55-1.30) 0.8 MG/DL (0.55-1.30) Estimat Glomerular Filtration Rate > 60 mL/min (>60) > 60 mL/min (>60) Glucose Level 88 MG/DL (74-106) 111 MG/DL (74-106) Calcium Level 7.7 MG/DL (8.5-10.1) 7.5 MG/DL (8.5-10.1) Phosphorus Level 2.0 MG/DL (2.5-4.9) 3.0 MG/DL (2.5-4.9) Magnesium Level 1.5 MG/DL (1.8-2.4) 1.7 MG/DL (1.8-2.4) Total Bilirubin 0.5 MG/DL (0.2-1.0) 0.4 MG/DL (0.2-1.0) Aspartate Amino Transf (AST/SGOT) 34 U/L (15-37) 34 U/L (15-37) Alanine Aminotransferase (ALT/SGPT) 19 U/L (12-78) 16 U/L (12-78) Alkaline Phosphatase 178 U/L (46-116) 206 U/L (46-116) C-Reactive Protein, Quantitative 17.4 mg/dL (0.00-0.90) Pro-B-Type Natriuretic Peptide 4144 pg/mL (0-125) Total Protein 5.9 G/DL (6.4-8.2) 6.0 G/DL (6.4-8.2) Albumin 2.1 G/DL (3.4-5.0) 2.0 G/DL (3.4-5.0) Globulin 3.8 g/dL 4.0 g/dL Albumin/Globulin Ratio 0.6 (1.0-2.7) 0.5 (1.0-2.7) POC Whole Blood Glucose 105 MG/DL (74-106) Differential Total Cells Counted 100 Neutrophils % (Manual) 60 % (45-75) Lymphocytes % (Manual) 26 % (20-45) Monocytes % (Manual) 14 % (1-10) Eosinophils % (Manual) 0 % (0-3) Basophils % (Manual) 0 % (0-2) Band Neutrophils 0 % (0-8) Platelet Estimate Adequate Platelet Morphology Normal Hypochromasia 1+ Anisocytosis 2+ Arterial Blood pH 7.332 (7.350-7.450) Arterial Blood Partial Pressure CO2 37.6 mmHg (35.0-45.0) Arterial Blood Partial Pressure O2 81.7 mmHg (75.0-100.0) Arterial Blood HCO3 19.5 mmol/L (22.0-26.0) Arterial Blood Oxygen Saturation 95.6 % (95-100) Arterial Blood Base Excess -5.9 (-2-2) Asael Test Positive Test 01/29/20 12:59 01/29/20 16:32 01/29/20 22:37 01/30/20 04:00 POC Whole Blood Glucose 78 MG/DL (74-106) 170 MG/DL (74-106) White Blood Count 4.1 K/UL (4.8-10.8) Red Blood Count 3.08 M/UL (4.70-6.10) Hemoglobin 8.6 G/DL (14.2-18.0) Hematocrit 28.3 % (42.0-52.0) Mean Corpuscular Volume 92 FL (80-99) Mean Corpuscular Hemoglobin 28.1 PG (27.0-31.0) Mean Corpuscular Hemoglobin Concent 30.5 G/DL (32.0-36.0) Red Cell Distribution Width 20.4 % (11.6-14.8) Platelet Count 246 K/UL (150-450) Mean Platelet Volume 6.4 FL (6.5-10.1) Neutrophils (%) (Auto) % (45.0-75.0) Lymphocytes (%) (Auto) % (20.0-45.0) Monocytes (%) (Auto) % (1.0-10.0) Eosinophils (%) (Auto) % (0.0-3.0) Basophils (%) (Auto) % (0.0-2.0) Test 01/30/20 05:36 Height (Feet): 5 Height (Inches): 9.00 Weight (Pounds): 149 Objective PE: Vitals: reviewed General Appearance: NAD HEENT: normocephalic, atraumatic Neck: non-tender, normal alignment Respiratory/Chest: nromal breath sounds bilaterally Cardiovascular/Chest: normal peripheral pulses, normal rate Abdomen: normal bowel sounds, soft, nontender Extremities: normal range of motion Samuel Son MD Jan 30, 2020 06:46
--- NOTE | 2020-01-30 07:58 | Infectious Diseases Prog Note ---
Assessment/Plan 69yo M with: Recurrent resp failure, most likely 2/2 increased volume, vascular congestion, pleural effusion, less likely 2/2 infection CODE BLUE 01/28, r/o infection Large L pleural effusion 01/28 CXR: Enlarged and now quite large left pleural effusion. Increasing interstitial congestion. Stable right pleural effusion 01/29 BCx ordered Shock- likely combination septic and metabolic derangements- SP Probable UTI -01/10 u/a wbc 60-80, nit neg, leuk +3; ucx Neg -Bcx NTD Probable PNA -01/12 CXR: No significant change in bilateral patchy pulmondary opacities, concerning for pneumonia versus edemaq. Small bilateral pleural effusions. -01/10 CXR: Bilateral interstitial and airspace infiltrates versus edema persists. sp cx MRSA (S Vancomycin, bactrim, tetracycline) COVID19 neg -01/04 rapid COVID PCR neg x1 influenza PCR neg CXR: Mild interstitial vascular prominence. No focal infiltrate or consolidation. 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 Etiology not demonstrated. Empty bladder with a Mathew catheter. 3 hypoechoic lesions within the pancreatic head and body, each measuring about 5 mm. Appearance nonspecific. Bilateral pleural effusions. Echogenic liver, consistent with hepatocellular disease. Surface likely nodularity raises concern for cirrhosis. Gallbladder sludge. Negative for dilated bile ducts. Probable nonobstructive left intrarenal calculi. Multiple hepatic cysts Acute on chronic encephalopathy -CT head: 1. Markedly limited, near nondiagnostic evaluation due to motion artifact. Grossly, age-related changes and small vessel disease of aging are noted. Again grossly, no acute intracranial pathology is detected. If there is a high degree of concern or if there is concern for subtle abnormalities, magnetic resonance imaging of the brain with diffusion-weighted sequences should be performed, due to the markedly limited nature of the current study. Close clinical correlation is necessary. HTN COPD DM2 paraplegia Dementia non verbal NH resident (elan mora) Plan: BCx x2 Then start Zosyn #1 given Code blue, possible aspiration, r/o infection as contributing cause Appreciate Pulm input about large L pleural effusion -01/18 SP vanco IV #7 -01/16 SP Cefepime #4 -01/13 SP ZOsyn #4 -01/06 SP Ceftriaxone #2 -01/04 Sp IV Vancomycin x1, Cefepime x1 -f/u cx -Monitor CBC/CMP, temperatures -Renal, cards f/u -aspiration precautions D/w RN Thank you for consulting [facility]. Will continue to follow along with you. Subjective Allergies: Coded Allergies: No Known Allergies (Unverified , 03/18/19) AF WBC 4.1 Rapid response called last night for resp distress, found to be in asystole, CODE BLUE Now back in ICU on vent Required low dose levophed, but now off it CXR w/ increased congestion/volume NAD on vent Objective Last 24 Hour Vital Signs Date Time Temp Pulse Resp B/P (MAP) Pulse Ox O2 Delivery O2 Flow Rate FiO2 01/30/20 06:00 99 23 99/65 (76) 100 01/30/20 05:30 98 24 95/64 (74) 100 01/30/20 05:00 96 25 103/65 (78) 100 01/30/20 04:00 97.4 95 25 98/59 (72) 100 01/30/20 04:00 70 01/30/20 04:00 Mechanical Ventilator 01/30/20 03:45 96 24 92/49 (63) 100 01/30/20 03:30 97 23 99/70 (80) 100 01/30/20 03:15 95 20 98/50 (66) 100 01/30/20 03:13 97 01/30/20 03:10 94 19 70 01/30/20 03:00 90 15 101/63 (76) 100 01/30/20 02:00 72 15 117/63 (81) 100 01/30/20 01:45 71 14 162/86 (111) 100 01/30/20 01:30 69 15 134/72 (92) 100 01/30/20 01:15 70 15 123/65 (84) 100 01/30/20 01:00 73 15 107/66 (80) 100 01/30/20 00:45 92 15 81/53 (62) 100 01/30/20 00:35 72/42 01/30/20 00:30 94 15 72/42 (52) 100 01/30/20 00:15 98 15 68/43 (51) 100 01/30/20 00:00 98.0 99 15 65/42 (50) 100 01/30/20 00:00 70 01/29/20 23:45 102 16 64/41 (49) 100 01/29/20 23:34 112 24 61/43 (49) 100 01/29/20 23:33 113 30 54/42 (46) 100 01/29/20 23:30 Mechanical Ventilator 01/29/20 23:30 115 29 61/42 (48) 100 01/29/20 23:25 70 01/29/20 23:22 127 24 100 Mechanical Ventilator 01/29/20 23:15 118 20 108/67 (81) 100 01/29/20 23:14 127 24 100 01/29/20 23:11 118 01/29/20 23:06 140 20 103/68 (80) 01/29/20 21:00 97.9 94 20 130/72 (91) 99 01/29/20 20:00 104 01/29/20 20:00 98.1 102 24 124/72 (89) 99 01/29/20 18:59 96 Nasal Cannula 2.0 28 01/29/20 16:00 97.9 94 20 130/72 (91) 99 01/29/20 16:00 94 01/29/20 12:00 97.5 96 20 137/88 (104) 96 01/29/20 12:00 93 01/29/20 09:00 Nasal Cannula 2.0 01/29/20 08:00 111 01/29/20 08:00 97.7 109 24 153/80 (104) 94 Height (Feet): 5 Height (Inches): 9.00 Weight (Pounds): 149 Gen: NAD in bed HEENT: NCAT CV: RRR Pulm: Rhonchi BL Abd: Soft, Non-distended Ext: No c/c/e Neuro: Not interactive Lines: R fem CVC Laboratory Tests Test 01/29/20 09:45 01/29/20 12:59 01/29/20 16:32 01/29/20 22:37 Arterial Blood pH 7.332 (7.350-7.450) Arterial Blood Partial Pressure CO2 37.6 mmHg (35.0-45.0) Arterial Blood Partial Pressure O2 81.7 mmHg (75.0-100.0) Arterial Blood HCO3 19.5 mmol/L (22.0-26.0) L Arterial Blood Oxygen Saturation 95.6 % (95-100) Arterial Blood Base Excess -5.9 (-2-2) L Asael Test Positive POC Whole Blood Glucose Pending 78 MG/DL (74-106) 170 MG/DL (74-106) H Test 01/30/20 04:00 01/30/20 05:36 White Blood Count 4.1 K/UL (4.8-10.8) L Red Blood Count 3.08 M/UL (4.70-6.10) L Hemoglobin 8.6 G/DL (14.2-18.0) L Hematocrit 28.3 % (42.0-52.0) L Mean Corpuscular Volume 92 FL (80-99) Mean Corpuscular Hemoglobin 28.1 PG (27.0-31.0) Mean Corpuscular Hemoglobin Concent 30.5 G/DL (32.0-36.0) L Red Cell Distribution Width 20.4 % (11.6-14.8) H Platelet Count 246 K/UL (150-450) Mean Platelet Volume 6.4 FL (6.5-10.1) L Neutrophils (%) (Auto) % (45.0-75.0) Lymphocytes (%) (Auto) % (20.0-45.0) Monocytes (%) (Auto) % (1.0-10.0) Eosinophils (%) (Auto) % (0.0-3.0) Basophils (%) (Auto) % (0.0-2.0) Neutrophils % (Manual) Pending Lymphocytes % (Manual) Pending Platelet Estimate Pending Platelet Morphology Pending POC Whole Blood Glucose Pending Current Medications Medications (Trade) Dose Ordered Sig/Jesse Route PRN Reason Start Time Stop Time Status Last Admin Dose Admin Acetaminophen (Tylenol) 650 mg Q4H PRN ORAL PRNH/TEMP 01/05/20 20:15 02/04/20 20:14 01/12/20 03:10 Bisacodyl (Dulcolax) 10 mg DAILY PRN RECTAL Constipation 01/05/20 20:15 04/04/20 20:14 Chlorhexidine Gluconate (Navya-Hex 2%) 1 applic DAILY@2000 TOPIC 01/11/20 20:00 04/10/20 19:59 01/29/20 20:39 Dextrose (Dextrose 50%) 25 ml Q30M PRN IV Hypoglycemia 01/05/20 20:15 04/04/20 20:14 01/24/20 23:53 Dextrose (Dextrose 50%) 50 ml Q30M PRN IV Hypoglycemia 01/05/20 20:15 04/04/20 20:14 Dextrose/Sodium Chloride 1,000 ml @ 60 mls/hr [id number] IV 01/24/20 13:30 02/23/20 13:29 01/28/20 17:53 Lansoprazole (Prevacid) 30 mg Q12HR NG 01/28/20 21:00 02/27/20 20:59 01/29/20 20:39 Linaclotide (Linzess) 290 mcg BEFORE BREAKFAST ORAL 01/10/20 06:30 04/09/20 06:29 01/30/20 05:35 Loperamide HCl (Imodium) 2 mg Q6H PRN NG Diarrhea 01/27/20 15:45 02/26/20 15:44 01/27/20 17:58 Metoclopramide HCl (Reglan) 10 mg EVERY 6 HOURS NG 01/19/20 12:00 02/18/20 11:59 01/30/20 05:35 Metoclopramide HCl (Reglan) 10 mg Q6H PRN IVP Nausea & Vomiting 01/16/20 13:00 02/15/20 12:59 Midodrine (Pro-Amatine) 10 mg Q8HR NG 01/20/20 22:00 04/13/20 17:59 01/30/20 05:35 Norepinephrine Bitartrate 250 ml @ 7.5 mls/hr Q24H IV 01/30/20 00:30 02/02/20 00:23 01/30/20 00:35 Ondansetron HCl (Zofran) 4 mg Q6H PRN IVP Nausea & Vomiting 01/10/20 06:30 02/09/20 06:29 Polyethylene Glycol (Miralax) 17 gm BEDTIME NG 01/11/20 21:00 02/08/20 20:59 01/29/20 20:39 Sennosides (Senokot) 8.6 mg QHS NG 01/11/20 21:00 02/04/20 20:59 01/29/20 20:39 Vitamin D (Vitamin D) 3,000 intlu DAILY GT 01/19/20 12:00 02/18/20 11:59 01/29/20 09:45 Nayana Ochoa M.D. Jan 30, 2020 07:58
[2020-01-30] MEDS: Piperacillin/Tazobactam 3.375 GM in NS 110 ML IVPB SCH ×3 (08:00→21:51)
[2020-01-30] MEDS: Vitamin D 1000 IU Tab GT SCH (08:41)
[2020-01-30 09:56] LABS: ALBUMIN 1.9 G/DL (3.4-5.0); BLOOD UREA NITROGEN 11 mg/dL (7-18); CALCIUM 7.9 MG/DL (8.5-10.1); CARBON DIOXIDE 21 MMOL/L (21-32); CHLORIDE 113 MMOL/L (98-107); CREATININE 0.9 MG/DL (0.55-1.30); POTASSIUM 3.1 MMOL/L (3.5-5.1); SODIUM 145 MMOL/L (136-145)
--- NOTE | 2020-01-30 10:21 | Pulmonology Progress Note ---
Subjective ROS Limited/Unobtainable: Yes Interval Events: Intubated overnight Constitutional: Reports: no symptoms HEENT: Repors: no symptoms Respiratory: Reports: no symptoms Cardiovascular: Reports: no symptoms Gastrointestinal/Abdominal: Reports: no symptoms Genitourinary: Reports: no symptoms Allergies: Coded Allergies: No Known Allergies (Unverified , 03/18/19) All Systems: reviewed and negative except above Objective Last 24 Hour Vital Signs Date Time Temp Pulse Resp B/P (MAP) Pulse Ox O2 Delivery O2 Flow Rate FiO2 01/30/20 07:27 104 23 70 01/30/20 06:00 99 23 99/65 (76) 100 01/30/20 05:30 98 24 95/64 (74) 100 01/30/20 05:00 96 25 103/65 (78) 100 01/30/20 04:00 97.4 95 25 98/59 (72) 100 01/30/20 04:00 70 01/30/20 04:00 Mechanical Ventilator 01/30/20 03:45 96 24 92/49 (63) 100 01/30/20 03:30 97 23 99/70 (80) 100 01/30/20 03:15 95 20 98/50 (66) 100 01/30/20 03:13 97 01/30/20 03:10 94 19 70 01/30/20 03:00 90 15 101/63 (76) 100 01/30/20 02:00 72 15 117/63 (81) 100 01/30/20 01:45 71 14 162/86 (111) 100 01/30/20 01:30 69 15 134/72 (92) 100 01/30/20 01:15 70 15 123/65 (84) 100 01/30/20 01:00 73 15 107/66 (80) 100 01/30/20 00:45 92 15 81/53 (62) 100 01/30/20 00:35 72/42 01/30/20 00:30 94 15 72/42 (52) 100 01/30/20 00:15 98 15 68/43 (51) 100 01/30/20 00:00 98.0 99 15 65/42 (50) 100 01/30/20 00:00 70 01/29/20 23:45 102 16 64/41 (49) 100 11/24/20 23:34 112 24 61/43 (49) 100 01/29/20 23:33 113 30 54/42 (46) 100 01/29/20 23:30 Mechanical Ventilator 01/29/20 23:30 115 29 61/42 (48) 100 01/29/20 23:25 70 01/29/20 23:22 127 24 100 Mechanical Ventilator 01/29/20 23:15 118 20 108/67 (81) 100 01/29/20 23:14 127 24 100 01/29/20 23:11 118 01/29/20 23:06 140 20 103/68 (80) 01/29/20 21:00 97.9 94 20 130/72 (91) 99 01/29/20 20:00 104 01/29/20 20:00 98.1 102 24 124/72 (89) 99 01/29/20 18:59 96 Nasal Cannula 2.0 28 01/29/20 16:00 97.9 94 20 130/72 (91) 99 01/29/20 16:00 94 01/29/20 12:00 97.5 96 20 137/88 (104) 96 01/29/20 12:00 93 Intake and Output0 01/29/20 01/30/20 19:00 07:00 Intake Total 30 ml 405.000 ml Output Total 950 ml 845 ml Balance -920 ml -440.000 ml IV Total 375.000 ml Tube Feeding 30 ml 30 ml Output Urine Total 950 ml 725 ml Stool Total 0 ml 120 ml General Appearance: no acute distress HEENT: normocephalic Respiratory: chest wall non-tender, lungs clear Cardiovascular: normal peripheral pulses, normal rate Abdomen: normal bowel sounds Laboratory Tests 01/29/20 12:59: POC Whole Blood Glucose [Pending] 01/29/20 16:32: POC Whole Blood Glucose 78 01/29/20 22:37: POC Whole Blood Glucose 170H 01/30/20 04:00: White Blood Count 4.1L, Red Blood Count 3.08L, Hemoglobin 8.6L, Hematocrit 28.3L , Mean Corpuscular Volume 92, Mean Corpuscular Hemoglobin 28.1, Mean Corpuscular Hemoglobin Concent 30.5L, Red Cell Distribution Width 20.4H, Platelet Count 246, Mean Platelet Volume 6.4L, Neutrophils (%) (Auto) , Lymphocytes (%) (Auto) , Monocytes (%) (Auto) , Eosinophils (%) (Auto) , Basophils (%) (Auto) , Differential Total Cells Counted 100, Neutrophils % (Manual) 61, Lymphocytes % (Manual) 20, Monocytes % (Manual) 8, Eosinophils % (Manual) 0, Basophils % (Manual) 0, Band Neutrophils 11H, Platelet Estimate Adequate, Platelet Morphology Normal, Polychromasia 1+, Hypochromasia 2+, Anisocytosis 2+ 01/30/20 05:36: POC Whole Blood Glucose [Pending] 01/30/20 08:08: Arterial Blood pH 7.513H, Arterial Blood Partial Pressure CO2 25.0L, Arterial Blood Partial Pressure O2 253.1H, Arterial Blood HCO3 19.6L, Arterial Blood Oxygen Saturation 98.7, Arterial Blood Base Excess -2.5L, Asael Test Positive 01/30/20 08:50: Sodium Level 145, Potassium Level 3.1L, Chloride Level 113H, Carbon Dioxide Level 21, Blood Urea Nitrogen 11, Creatinine 0.9, Estimat Glomerular Filtration Rate > 60, Glucose Level 123H, Calcium Level 7.9L, Total Bilirubin [Pending], Aspartate Amino Transf (AST/SGOT) [Pending], Alanine Aminotransferase (ALT/SGPT) [Pending], Alkaline Phosphatase [Pending], Total Protein [Pending], Albumin 1.9L, Globulin [Pending] Current Medications Medications (Trade) Dose Ordered Sig/Jesse Route PRN Reason Start Time Stop Time Status Last Admin Dose Admin Acetaminophen (Tylenol) 650 mg Q4H PRN ORAL PRNH/TEMP 01/05/20 20:15 02/04/20 20:14 01/12/20 03:10 Bisacodyl (Dulcolax) 10 mg DAILY PRN RECTAL Constipation 01/05/20 20:15 04/04/20 20:14 Chlorhexidine Gluconate (Navya-Hex 2%) 1 applic DAILY@1999 TOPIC 01/11/20 20:00 04/10/20 19:59 01/29/20 20:39 Dextrose (Dextrose 50%) 25 ml Q30M PRN IV Hypoglycemia 01/05/20 20:15 04/04/20 20:14 01/24/20 23:53 Dextrose (Dextrose 50%) 50 ml Q30M PRN IV Hypoglycemia 01/05/20 20:15 04/04/20 20:14 Dextrose/Sodium Chloride 1,000 ml @ 60 mls/hr [id number] IV 01/24/20 13:30 02/23/20 13:29 01/28/20 17:53 Lansoprazole (Prevacid) 30 mg Q12HR NG 01/28/20 21:00 02/27/20 20:59 01/30/20 08:41 Linaclotide (Linzess) 290 mcg BEFORE BREAKFAST ORAL 01/10/20 06:30 04/09/20 06:29 01/30/20 05:35 Loperamide HCl (Imodium) 2 mg Q6H PRN NG Diarrhea 01/27/20 15:45 02/26/20 15:44 01/27/20 17:58 Metoclopramide HCl (Reglan) 10 mg EVERY 6 HOURS NG 01/19/20 12:00 02/18/20 11:59 01/30/20 05:35 Metoclopramide HCl (Reglan) 10 mg Q6H PRN IVP Nausea & Vomiting 01/16/20 13:00 02/15/20 12:59 Midodrine (Pro-Amatine) 10 mg Q8HR NG 01/20/20 22:00 04/13/20 17:59 01/30/20 05:35 Norepinephrine Bitartrate 250 ml @ 7.5 mls/hr Q24H IV 01/30/20 00:30 02/02/20 00:23 01/30/20 00:35 Ondansetron HCl (Zofran) 4 mg Q6H PRN IVP Nausea & Vomiting 01/10/20 06:30 02/09/20 06:29 Polyethylene Glycol (Miralax) 17 gm BEDTIME NG 01/11/20 21:00 02/08/20 20:59 01/29/20 20:39 Sennosides (Senokot) 8.6 mg QHS NG 01/11/20 21:00 02/04/20 20:59 01/29/20 20:39 Vitamin D (Vitamin D) 3,000 intlu DAILY GT 01/19/20 12:00 02/18/20 11:59 01/30/20 08:41 Assessment/Plan Assessment/Plan IMPRESSION: 1. Severe metabolic acidosis. Corrected; now has combined respiratory and metabolic alkalosis 2. Respiratory failure; now reintubated 3. Diarrhea. Resolved 4. Acute renal failure. Nephrology following; 5. Anemia; DISCUSSION: EGD and PEG postponed Remains obtunded Intubated overnight Poor prognosis Recommend comfort care Daxa Infante Omar Syed MD Jan 30, 2020 10:21
[2020-01-30 10:42] LABS: ALANINE AMINOTRANSFERASE 24 U/L (12-78); ALBUMIN/GLOBULIN RATIO 0.5 (1.0-2.7); ASPARTATE AMINO TRANSFERASE 55 U/L (15-37); BILIRUBIN,TOTAL 0.8 MG/DL (0.2-1.0)
[2020-01-30 10:43] LABS: ALKALINE PHOSPHATASE 224 U/L (46-116)
[2020-01-30] MEDS ORDERED: Piperacillin/Tazobactam 3.375 GM in NS 110 ML IVPB SCH (11:00)
--- NOTE | 2020-01-30 12:39 | General Progress Note ---
Subjective ROS Limited/Unobtainable: No Allergies: Coded Allergies: No Known Allergies (Unverified , 03/18/19) Objective Last 24 Hour Vital Signs Date Time Temp Pulse Resp B/P (MAP) Pulse Ox O2 Delivery O2 Flow Rate FiO2 01/30/20 10:00 50 01/30/20 08:00 70 01/30/20 07:27 104 23 70 01/30/20 06:00 99 23 99/65 (76) 100 01/30/20 05:30 98 24 95/64 (74) 100 01/30/20 05:00 96 25 103/65 (78) 100 01/30/20 04:00 97.4 95 25 98/59 (72) 100 01/30/20 04:00 70 01/30/20 04:00 Mechanical Ventilator 01/30/20 03:45 96 24 92/49 (63) 100 01/30/20 03:30 97 23 99/70 (80) 100 01/30/20 03:15 95 20 98/50 (66) 100 01/30/20 03:13 97 01/30/20 03:10 94 19 70 01/30/20 03:00 90 15 101/63 (76) 100 01/30/20 02:00 72 15 117/63 (81) 100 01/30/20 01:45 71 14 162/86 (111) 100 01/30/20 01:30 69 15 134/72 (92) 100 01/30/20 01:15 70 15 123/65 (84) 100 01/30/20 01:00 73 15 107/66 (80) 100 01/30/20 00:45 92 15 81/53 (62) 100 01/30/20 00:35 72/42 01/30/20 00:30 94 15 72/42 (52) 100 01/30/20 00:15 98 15 68/43 (51) 100 01/30/20 00:00 98.0 99 15 65/42 (50) 100 01/30/20 00:00 70 01/29/20 23:45 102 16 64/41 (49) 100 01/29/20 23:34 112 24 61/43 (49) 100 01/29/20 23:33 113 30 54/42 (46) 100 01/29/20 23:30 Mechanical Ventilator 01/29/20 23:30 115 29 61/42 (48) 100 01/29/20 23:25 70 01/29/20 23:22 127 24 100 Mechanical Ventilator 01/29/20 23:15 118 20 108/67 (81) 100 01/29/20 23:14 127 24 100 01/29/20 23:11 118 01/29/20 23:06 140 20 103/68 (80) 01/29/20 21:00 97.9 94 20 130/72 (91) 99 01/29/20 20:00 104 01/29/20 20:00 98.1 102 24 124/72 (89) 99 01/29/20 18:59 96 Nasal Cannula 2.0 28 01/29/20 16:00 97.9 94 20 130/72 (91) 99 01/29/20 16:00 94 Intake and Output 01/29/20 01/30/20 19:00 07:00 Intake Total 30 ml 405.000 ml Output Total 950 ml 845 ml Balance -920 ml -440.000 ml IV Total 375.000 ml Tube Feeding 30 ml 30 ml Output Urine Total 950 ml 725 ml Stool Total 0 ml 120 ml Laboratory Tests 01/29/20 12:59: POC Whole Blood Glucose [Pending] 01/29/20 16:32: POC Whole Blood Glucose 78 01/29/20 22:37: POC Whole Blood Glucose 170H 01/30/20 04:00: White Blood Count 4.1L, Red Blood Count 3.08L, Hemoglobin 8.6L, Hematocrit 28.3L , Mean Corpuscular Volume 92, Mean Corpuscular Hemoglobin 28.1, Mean Corpuscular Hemoglobin Concent 30.5L, Red Cell Distribution Width 20.4H, Platelet Count 246, Mean Platelet Volume 6.4L, Neutrophils (%) (Auto) , Lymphocytes (%) (Auto) , Monocytes (%) (Auto) , Eosinophils (%) (Auto) , Basophils (%) (Auto) , Dif ferential Total Cells Counted 100, Neutrophils % (Manual) 61, Lymphocytes % (Manual) 20, Monocytes % (Manual) 8, Eosinophils % (Manual) 0, Basophils % (Manual) 0, Band Neutrophils 11H, Platelet Estimate Adequate, Platelet Morphology Normal, Polychromasia 1+, Hypochromasia 2+, Anisocytosis 2+ 01/30/20 05:36: POC Whole Blood Glucose [Pending] 01/30/20 08:08: Arterial Blood pH 7.513H, Arterial Blood Partial Pressure CO2 25.0L, Arterial Blood Partial Pressure O2 253.1H, Arterial Blood HCO3 19.6L, Arterial Blood Oxygen Saturation 98.7, Arterial Blood Base Excess -2.5L, Asael Test Positive 01/30/20 08:50: Sodium Level 145, Potassium Level 3.1L, Chloride Level 113H, Carbon Dioxide L evel 21, Blood Urea Nitrogen 11, Creatinine 0.9, Estimat Glomerular Filtration Rate > 60, Glucose Level 123H, Calcium Level 7.9L, Total Bilirubin 0.8, Aspartate Amino Transf (AST/SGOT) 55H, Alanine Aminotransferase (ALT/SGPT) 24, Alkaline Phosphatase 224H, Total Protein 5.6L, Albumin 1.9L, Globulin 3.7, Albumin/Globulin Ratio 0.5L Height (Feet): 5 Height (Inches): 9.00 Weight (Pounds): 149 General Appearance: lethargic EENT: normal ENT inspection Neck: normal alignment Cardiovascular: normal rate Respiratory/Chest: decreased breath sounds Abdomen: normal bowel sounds, non tender, soft Extremities: non-tender Assessment/Plan Status: progressing, unchanged Assessment/Plan: AMS dementia Anemia DM hyper CA elevated AST low albumin COPD RI HTN metastatic prostate CA intubated in the icu NGTF plan PEG possibly on Tuesday Paulino Bueno MD Jan 30, 2020 12:39
--- NOTE | 2020-01-30 12:50 | Cardiology Report ---
APPROVED REPORT EKG Measurement Heart [id number] <Conclusion> Sinus tachycardia Low voltage QRS Borderline ECG
--- NOTE | 2020-01-30 13:44 | Cardiac Electrophysiology PN ---
Assessment/Plan Assessment/Plan 1. Altered mental status due to severe dehydration in view of sodium of 160 and acute renal failure. On IV fluids and IV antibiotics. Ruled out for PR. 2. Septic shock, back on levophed overnight and on iv Abx On Midodrine 10 tid 3. History of CVA, off Plavix in view of hematuria. 4. Respiratory failure, Extubated 01/22 and reintubated 01/29/20 5. Diabetes. 6. Acute renal failure. Cr 4.2. Had HD once only on 01/11/20. No more HD needed and Cr 1.2 7. Hematuria 8. Anemia with Hb 5.8 and coffee ground emesis. FU Dr Bueno 9. Shock liver with increase AST>2000 10. Metastatic prostate cancer -- w psa [id number] with a Large pelvic mass involving the prostate, bladder, seminal vesicles, presumably representing prostatic malignancy Severe right and moderate left hydronephrosis and bilateral hydroureter, due to ureteral obstruction by the above mass 11. Dysphagia, NGT feeding. PEG pending KARLO RN and Dr Biswas Subjective Subjective Coded 01/19 for respiratory failure followed by bradycardia and PEA. Extubated 01/23/20. PEG yesterday cancelled due to respiratory issue Had [employer] and then had asystole and was intubated and started on Levophed. Objective Last 24 Hour Vital Signs Date Time Temp Pulse Resp B/P (MAP) Pulse Ox O2 Delivery O2 Flow Rate FiO2 01/30/20 12:00 93 01/30/20 12:00 Mechanical Ventilator 01/30/20 10:00 50 01/30/20 08:00 70 01/30/20 08:00 Mechanical Ventilator 01/30/20 08:00 105 01/30/20 07:27 104 23 70 01/30/20 06:00 99 23 99/65 (76) 100 01/30/20 05:30 98 24 95/64 (74) 100 01/30/20 05:00 96 25 103/65 (78) 100 01/30/20 04:00 97.4 95 25 98/59 (72) 100 01/30/20 04:00 70 01/30/20 04:00 Mechanical Ventilator 01/30/20 03:45 96 24 92/49 (63) 100 01/30/20 03:30 97 23 99/70 (80) 100 01/30/20 03:15 95 20 98/50 (66) 100 01/30/20 03:13 97 01/30/20 03:10 94 19 70 01/30/20 03:00 90 15 101/63 (76) 100 01/30/20 02:00 72 15 117/63 (81) 100 01/30/20 01:45 71 14 162/86 (111) 100 01/30/20 01:30 69 15 134/72 (92) 100 01/30/20 01:15 70 15 123/65 (84) 100 01/30/20 01:00 73 15 107/66 (80) 100 01/30/20 00:45 92 15 81/53 (62) 100 01/30/20 00:35 72/42 01/30/20 00:30 94 15 72/42 (52) 100 01/30/20 00:15 98 15 68/43 (51) 100 01/30/20 00:00 98.0 99 15 65/42 (50) 100 01/30/20 00:00 70 01/29/20 23:45 102 16 64/41 (49) 100 01/29/20 23:34 112 24 61/43 (49) 100 01/29/20 23:33 113 30 54/42 (46) 100 01/29/20 23:30 Mechanical Ventilator 01/29/20 23:30 115 29 61/42 (48) 100 01/29/20 23:25 70 01/29/20 23:22 127 24 100 Mechanical Ventilator 01/29/20 23:15 118 20 108/67 (81) 100 01/29/20 23:14 127 24 100 01/29/20 23:11 118 01/29/20 23:06 140 20 103/68 (80) 01/29/20 21:00 97.9 94 20 130/72 (91) 99 01/29/20 20:00 104 01/29/20 20:00 98.1 102 24 124/72 (89) 99 01/29/20 18:59 96 Nasal Cannula 2.0 28 01/29/20 16:00 97.9 94 20 130/72 (91) 99 01/29/20 16:00 94 Intake and Output 01/29/20 01/30/20 19:00 07:00 Intake Total 30 ml 405.000 ml Output Total 950 ml 845 ml Balance -920 ml -440.000 ml IV Total 375.000 ml Tube Feeding 30 ml 30 ml Output Urine Total 950 ml 725 ml Stool Total 0 ml 120 ml Laboratory Tests Test 01/29/20 16:32 01/29/20 22:37 01/30/20 04:00 01/30/20 05:36 POC Whole Blood Glucose 78 MG/DL (74-106) 170 MG/DL (74-106) H Pending White Blood Count 4.1 K/UL (4.8-10.8) L Red Blood Count 3.08 M/UL (4.70-6.10) L Hemoglobin 8.6 G/DL (14.2-18.0) L Hematocrit 28.3 % (42.0-52.0) L Mean Corpuscular Volume 92 FL (80-99) Mean Corpuscular Hemoglobin 28.1 PG (27.0-31.0) Mean Corpuscular Hemoglobin Concent 30.5 G/DL (32.0-36.0) L Red Cell Distribution Width 20.4 % (11.6-14.8) H Platelet Count 246 K/UL (150-450) Mean Platelet Volume 6.4 FL (6.5-10.1) L Neutrophils (%) (Auto) % (45.0-75.0) Lymphocytes (%) (Auto) % (20.0-45.0) Monocytes (%) (Auto) % (1.0-10.0) Eosinophils (%) (Auto) % (0.0-3.0) Basophils (%) (Auto) % (0.0-2.0) Differential Total Cells Counted 100 Neutrophils % (Manual) 61 % (45-75) Lymphocytes % (Manual) 20 % (20-45) Monocytes % (Manual) 8 % (1-10) Eosinophils % (Manual) 0 % (0-3) Basophils % (Manual) 0 % (0-2) Band Neutrophils 11 % (0-8) H Platelet Estimate Adequate Platelet Morphology Normal Polychromasia 1+ Hypochromasia 2+ Anisocytosis 2+ Test 01/30/20 08:08 01/30/20 08:50 Arterial Blood pH 7.513 (7.350-7.450) Arterial Blood Partial Pressure CO2 25.0 mmHg (35.0-45.0) L Arterial Blood Partial Pressure O2 253.1 mmHg (75.0-100.0) H Arterial Blood HCO3 19.6 mmol/L (22.0-26.0) L Arterial Blood Oxygen Saturation 98.7 % (95-100) Arterial Blood Base Excess -2.5 (-2-2) L Asael Test Positive Sodium Level 145 MMOL/L (136-145) Potassium Level 3.1 MMOL/L (3.5-5.1) L Chloride Level 113 MMOL/L (98-107) H Carbon Dioxide Level 21 MMOL/L (21-32) Blood Urea Nitrogen 11 mg/dL (7-18) Creatinine 0.9 MG/DL (0.55-1.30) Estimat Glomerular Filtration Rate > 60 mL/min (>60) Glucose Level 123 MG/DL (74-106) H Calcium Level 7.9 MG/DL (8.5-10.1) L Total Bilirubin 0.8 MG/DL (0.2-1.0) Aspartate Amino Transf (AST/SGOT) 55 U/L (15-37) H Alanine Aminotransferase (ALT/SGPT) 24 U/L (12-78) Alkaline Phosphatase 224 U/L (46-116) H Total Protein 5.6 G/DL (6.4-8.2) L Albumin 1.9 G/DL (3.4-5.0) L Globulin 3.7 g/dL Albumin/Globulin Ratio 0.5 (1.0-2.7) L Objective HEAD AND NECK: NGT in place LUNGS: Coarse rhonchi. CARDIOVASCULAR: Regular S1 and S2 with no gallop. ABDOMEN: Soft. EXTREMITIES: No pitting edema. Kevin Lopez MD Jan 30, 2020 13:44
--- NOTE | 2020-01-30 13:47 | Nephrology Progress Note ---
Assessment/Plan Problem List: (1) ARF (acute renal failure) (2) Hypernatremia (3) Hypovolemic shock (4) Altered level of consciousness (5) Hypercalcemia (6) Hyperuricemia (7) Pelvic mass Assessment: Prostate cancer Assessment Acute renal failure Possible underlying chronic kidney failure Severe dehydration Hypernatremia indicative of severe water deficit Severe hyperuricemia, partly due to dehydration and renal failure Acute metabolic and toxic encephalopathy Mild, malnutrition Anemia Lactic acid, possible sepsis Hypercalcemia Plan January 29: Patient was coded late last night. Now in ICU intubated. Was on pressors for a short period of time. Is off pressors now. Labs reviewed. Abnormal electrolyte addressed. Continue per consultants. January 28: Labs reviewed. Abnormal electrolyte addressed. Continue per consultants. January 27: Labs reviewed. Abnormal electrolyte addressed. Low potassium low phosphorus and low magnesium replaced. Continue per consultants. January 26: No labs drawn today. Status quo. Continue per consultants. Will check renal parameters tomorrow. January 25: Renal parameters stable. On Venturi mask. Continue per current management. January 24: Renal parameters stable. On Venturi mask. Discussed with RN. Due for PEG insertion today. January 23: Stable from renal standpoint of view. On Venturi mask. Low magnesium addressed. Continue per consultants. January 22: Patient off pressors. Patient extubated. Labs reviewed. Renal parameters are stable. January 21: Patient on low-dose pressors. Remains hypotensive. Renal parameters stable. Weaning trial in process. Mental status remains poor. January 20: Patient in ICU. Intubated. Full code. Has advanced prostate cancer. On IV Lasix drip. Low magnesium and low phosphorus and low potassium noted and addressed. Continue per consultants. January 19: Patient in ICU. Intubated. Was coded yesterday. Labs reviewed. Medication list reviewed and adjusted. Continue per consultants. Patient full code. Prognosis poor. PSA over 2700 January 18: Labs reviewed. IV fluid discontinued. IV calcium dose decreased. Midodrine dose decreased. Reglan and Protonix changed to GT route. Vitamin D initiated. Continue to monitor renal parameters and calcium level. January 17: Labs reviewed. Abnormal electrolyte addressed. Continue per consultants. January 16: Patient now in telemetry. Labs pending. Continue to monitor renal parameters. Continue per consultants. January 15: Still in ICU. Doing well post extubation. Renal parameters improving. Not requiring any more dialysis treatment after the first dialysis treatment. Medications reviewed. Continue per consultants. January 14: Remains in ICU. Tolerating extubation. Labs reviewed. Abnormal electrolytes addressed. Serum creatinine lowering. Continue per current management. Stop Phos binders. Increase calcium IV. January 13: In ICU. Now extubated. Only dialyzed once. Urine output maintained. Serum creatinine down to 2.5. Patient has NG tube. Continue to monitor renal parameters. Continue per consultants. Abnormal electrolytes addressed. January 12: Remains in ICU. Intubated. Transfused yesterday. Abnormal electrolytes addressed. Dialyzed once January 10. Serum creatinine stable. Will adjust IV fluid. Monitor renal parameters. Dialysis as needed. Calcium gluconate IV ordered. Ionized calcium level ordered with tomorrow's labs. January 11: Patient in ICU. Intubated. On Levophed. Hemoglobin low. Due for transfusion. Electrolyte abnormalities noted and addressed. Patient was dialyzed yesterday. Will check lab tomorrow. Dialysis as needed. Discussed with SELIN Srivastava. January 10: Patient is doing poorly. Blood pressure low. ABG abnormal with metabolic acidosis. IV sodium bicarb given. Serum creatinine reno. Patient has acute renal failure. Nontunneled dialysis catheter replacement ordered.. Patient need life saving dialysis treatment SRINIVAS. January 09: Labs reviewed. IV D5 and a half with sodium bicarb initiated. Serum creatinine higher. Continue to monitor renal parameters. NG feeding was changed to Nepro. Patient remains full code. Poor prognosis. January 08: Labs reviewed. IV D5W discontinued. 500 cc 3% saline ordered. NG tube for feeding and for medications. Allopurinol dose increased. Continue to monitor renal parameters serum calcium and phosphorus. January 07: Labs reviewed. Serum calcium remains elevated. Uric acid still elevated. Will give pamidronate 60 mg IV piggyback once for hypercalcemia. Continue to monitor renal parameters. Continue D5W 150 cc an hour. Start Bicitra 30 cc p.o. every 6 hours. Add allopurinol D5W IV hydration Albumin bolus N.p.o. until able to take p.o. Antibiotics Monitor renal parameters monitor calcium, monitor uric acid Subjective ROS Limited/Unobtainable: Yes Objective Objective Last 24 Hour Vital Signs Date Time Temp Pulse Resp B/P (MAP) Pulse Ox O2 Delivery O2 Flow Rate FiO2 11/25/20 12:00 93 01/30/20 12:00 Mechanical Ventilator 01/30/20 10:00 50 01/30/20 08:00 70 01/30/20 08:00 Mechanical Ventilator 01/30/20 08:00 105 01/30/20 07:27 104 23 70 01/30/20 06:00 99 23 99/65 (76) 100 01/30/20 05:30 98 24 95/64 (74) 100 01/30/20 05:00 96 25 103/65 (78) 100 01/30/20 04:00 97.4 95 25 98/59 (72) 100 01/30/20 04:00 70 01/30/20 04:00 Mechanical Ventilator 01/30/20 03:45 96 24 92/49 (63) 100 01/30/20 03:30 97 23 99/70 (80) 100 01/30/20 03:15 95 20 98/50 (66) 100 01/30/20 03:13 97 01/30/20 03:10 94 19 70 01/30/20 03:00 90 15 101/63 (76) 100 01/30/20 02:00 72 15 117/63 (81) 100 01/30/20 01:45 71 14 162/86 (111) 100 01/30/20 01:30 69 15 134/72 (92) 100 01/30/20 01:15 70 15 123/65 (84) 100 01/30/20 01:00 73 15 107/66 (80) 100 01/30/20 00:45 92 15 81/53 (62) 100 01/30/20 00:35 72/42 01/30/20 00:30 94 15 72/42 (52) 100 01/30/20 00:15 98 15 68/43 (51) 100 01/30/20 00:00 98.0 99 15 65/42 (50) 100 01/30/20 00:00 70 01/29/20 23:45 102 16 64/41 (49) 100 01/29/20 23:34 112 24 61/43 (49) 100 01/29/20 23:33 113 30 54/42 (46) 100 01/29/20 23:30 Mechanical Ventilator 01/29/20 23:30 115 29 61/42 (48) 100 01/29/20 23:25 70 01/29/20 23:22 127 24 100 Mechanical Ventilator 01/29/20 23:15 118 20 108/67 (81) 100 01/29/20 23:14 127 24 100 01/29/20 23:11 118 01/29/20 23:06 140 20 103/68 (80) 01/29/20 21:00 97.9 94 20 130/72 (91) 99 01/29/20 20:00 104 01/29/20 20:00 98.1 102 24 124/72 (89) 99 01/29/20 18:59 96 Nasal Cannula 2.0 28 01/29/20 16:00 97.9 94 20 130/72 (91) 99 01/29/20 16:00 94 Intake and Output 01/29/20 01/30/20 19:00 07:00 Intake Total 30 ml 405.000 ml Output Total 950 ml 845 ml Balance -920 ml -440.000 ml IV Total 375.000 ml Tube Feeding 30 ml 30 ml Output Urine Total 950 ml 725 ml Stool Total 0 ml 120 ml Current Medications Medications (Trade) Dose Ordered Sig/Jesse Route PRN Reason Start Time Stop Time Status Last Admin Dose Admin Acetaminophen (Tylenol) 650 mg Q4H PRN ORAL PRNH/TEMP 01/05/20 20:15 02/04/20 20:14 01/12/20 03:10 Bisacodyl (Dulcolax) 10 mg DAILY PRN RECTAL Constipation 01/05/20 20:15 04/04/20 20:14 Chlorhexidine Gluconate (Navya-Hex 2%) 1 applic DAILY@2000 TOPIC 01/11/20 20:00 04/10/20 19:59 01/29/20 20:39 Dextrose (Dextrose 50%) 25 ml Q30M PRN IV Hypoglycemia 01/05/20 20:15 04/04/20 20:14 01/24/20 23:53 Dextrose (Dextrose 50%) 50 ml Q30M PRN IV Hypoglycemia 01/05/20 20:15 04/04/20 20:14 Dextrose/Sodium Chloride 1,000 ml @ 60 mls/hr [id number] IV 01/24/20 13:30 02/23/20 13:29 01/30/20 08:00 Lansoprazole (Prevacid) 30 mg Q12HR NG 01/28/20 21:00 02/27/20 20:59 01/30/20 08:41 Linaclotide (Linzess) 290 mcg BEFORE BREAKFAST ORAL 01/10/20 06:30 04/09/20 06:29 01/30/20 05:35 Loperamide HCl (Imodium) 2 mg Q6H PRN NG Diarrhea 01/27/20 15:45 02/26/20 15:44 01/27/20 17:58 Metoclopramide HCl (Reglan) 10 mg EVERY 6 HOURS NG 01/19/20 12:00 02/18/20 11:59 01/30/20 08:00 Metoclopramide HCl (Reglan) 10 mg Q6H PRN IVP Nausea & Vomiting 01/16/20 13:00 02/15/20 12:59 Midodrine (Pro-Amatine) 10 mg Q8HR NG 01/20/20 22:00 04/13/20 17:59 01/30/20 05:35 Norepinephrine Bitartrate 250 ml @ 7.5 mls/hr Q24H IV 01/30/20 00:30 02/02/20 00:23 01/30/20 00:35 Ondansetron HCl (Zofran) 4 mg Q6H PRN IVP Nausea & Vomiting 01/10/20 06:30 02/09/20 06:29 Piperacillin Sod/ Tazobactam Sod 3.375 gm/Sodium Chloride 110 ml @ 27.5 mls/hr EVERY 8 HOURS IVPB 01/30/20 14:00 02/04/20 13:59 Polyethylene Glycol (Miralax) 17 gm BEDTIME NG 01/11/20 21:00 02/08/20 20:59 01/29/20 20:39 Potassium Chloride 100 ml @ 50 mls/hr ONCE ONCE IVPB 01/30/20 13:45 01/30/20 15:44 UNV Sennosides (Senokot) 8.6 mg QHS NG 01/11/20 21:00 02/04/20 20:59 01/29/20 20:39 Vitamin D (Vitamin D) 3,000 intlu DAILY GT 01/19/20 12:00 02/18/20 11:59 01/30/20 08:41 Laboratory Tests 01/29/20 16:32: POC Whole Blood Glucose 78 01/29/20 22:37: POC Whole Blood Glucose 170H 01/30/20 04:00: White Blood Count 4.1L, Red Blood Count 3.08L, Hemoglobin 8.6L, Hematocrit 28.3L , Mean Corpuscular Volume 92, Mean Corpuscular Hemoglobin 28.1, Mean Corpuscular Hemoglobin Concent 30.5L, Red Cell Distribution Width 20.4H, Platelet Count 246, Mean Platelet Volume 6.4L, Neutrophils (%) (Auto) , Lymphocytes (%) (Auto) , Monocytes (%) (Auto) , Eosinophils (%) (Auto) , Basophils (%) (Auto) , Differential Total Cells Counted 100, Neutrophils % (Manual) 61, Lymphocytes % (Manual) 20, Monocytes % (Manual) 8, Eosinophils % (Manual) 0, Basophils % (Manual) 0, Band Neutrophils 11H, Platelet Estimate Adequate, Platelet Morphology Normal, Polychromasia 1+, Hypochromasia 2+, Anisocytosis 2+ 01/30/20 05:36: POC Whole Blood Glucose [Pending] 01/30/20 08:08: Arterial Blood pH 7.513H, Arterial Blood Partial Pressure CO2 25.0L, Arterial Blood Partial Pressure O2 253.1H, Arterial Blood HCO3 19.6L, Arterial Blood Oxygen Saturation 98.7, Arterial Blood Base Excess -2.5L, Asael Test Positive 01/30/20 08:50: Sodium Level 145, Potassium Level 3.1L, Chloride Level 113H, Carbon Dioxide Level 21, Blood Urea Nitrogen 11, Creatinine 0.9, Estimat Glomerular Filtration Rate > 60, Glucose Level 123H, Calcium Level 7.9L, Total Bilirubin 0.8, Aspartate Amino Transf (AST/SGOT) 55H, Alanine Aminotransferase (ALT/SGPT) 24, Alkaline Phosphatase 224H, Total Protein 5.6L, Albumin 1.9L, Globulin 3.7, Albumin/Globulin Ratio 0.5L Height (Feet): 5 Height (Inches): 9.00 Weight (Pounds): 149 General Appearance: no apparent distress EENT: other - Now intubated on ventilator Cardiovascular: tachycardia Respiratory/Chest: decreased breath sounds Abdomen: distended Dhiraj Biswas MD Jan 30, 2020 13:47
--- NOTE | 2020-01-30 18:27 | Surgery Progress Note ---
Surgery Progress Note Subjective Procedure Performed Right femoral temporary hemodialysis catheter insertion Additional Comments worse coded in icu intubated may need trach Objective Last 24 Hour Vital Signs Date Time Temp Pulse Resp B/P (MAP) Pulse Ox O2 Delivery O2 Flow Rate FiO2 01/30/20 15:28 101 24 70 01/30/20 15:00 98 24 93/57 (69) 100 01/30/20 14:00 98 25 90/57 (68) 100 01/30/20 13:00 97 23 86/55 (65) 100 01/30/20 12:00 93 01/30/20 12:00 98.8 96 20 92/58 (69) 100 01/30/20 12:00 Mechanical Ventilator 01/30/20 11:02 95 30 70 01/30/20 11:00 97 20 91/58 (69) 100 01/30/20 10:00 97 22 90/60 (70) 100 01/30/20 10:00 50 01/30/20 09:00 104 25 102/62 (75) 100 01/30/20 08:00 70 01/30/20 08:00 Mechanical Ventilator 01/30/20 08:00 105 01/30/20 08:00 98.8 106 21 106/65 (79) 100 01/30/20 07:27 104 23 70 01/30/20 07:00 105 23 104/61 (75) 100 01/30/20 06:00 99 23 99/65 (76) 100 01/30/20 05:30 98 24 95/64 (74) 100 01/30/20 05:00 96 25 103/65 (78) 100 01/30/20 04:00 97.4 95 25 98/59 (72) 100 01/30/20 04:00 70 01/30/20 04:00 Mechanical Ventilator 01/30/20 03:45 96 24 92/49 (63) 100 01/30/20 03:30 97 23 99/70 (80) 100 01/30/20 03:15 95 20 98/50 (66) 100 01/30/20 03:13 97 01/30/20 03:10 94 19 70 01/30/20 03:00 90 15 101/63 (76) 100 01/30/20 02:00 72 15 117/63 (81) 100 01/30/20 01:45 71 14 162/86 (111) 100 01/30/20 01:30 69 15 134/72 (92) 100 01/30/20 01:15 70 15 123/65 (84) 100 01/30/20 01:00 73 15 107/66 (80) 100 01/30/20 00:45 92 15 81/53 (62) 100 01/30/20 00:35 72/42 01/30/20 00:30 94 15 72/42 (52) 100 01/30/20 00:15 98 15 68/43 (51) 100 01/30/20 00:00 98.0 99 15 65/42 (50) 100 01/30/20 00:00 70 01/29/20 23:45 102 16 64/41 (49) 100 01/29/20 23:34 112 24 61/43 (49) 100 01/29/20 23:33 113 30 54/42 (46) 100 01/29/20 23:30 Mechanical Ventilator 01/29/20 23:30 115 29 61/42 (48) 100 01/29/20 23:25 70 01/29/20 23:22 127 24 100 Mechanical Ventilator 01/29/20 23:15 118 20 108/67 (81) 100 01/29/20 23:14 127 24 100 01/29/20 23:11 118 01/29/20 23:06 140 20 103/68 (80) 01/29/20 21:00 97.9 94 20 130/72 (91) 99 01/29/20 20:00 104 01/29/20 20:00 98.1 102 24 124/72 (89) 99 01/29/20 18:59 96 Nasal Cannula 2.0 28 I&O Intake and Output 01/29/20 01/30/20 19:00 07:00 Intake Total 30 ml 405.000 ml Output Total 950 ml 845 ml Balance -920 ml -440.000 ml IV Total 375.000 ml Tube Feeding 30 ml 30 ml Output Urine Total 950 ml 725 ml Stool Total 0 ml 120 ml Cardiovascular: RSR Respiratory: decreased breath sounds Abdomen: distended, non-tender, decreased bowel sounds Extremities: no cyanosis, other Laboratory Tests Test 01/29/20 22:37 01/30/20 04:00 01/30/20 05:36 01/30/20 08:08 POC Whole Blood Glucose 170 MG/DL (74-106) H Pending White Blood Count 4.1 K/UL (4.8-10.8) L Red Blood Count 3.08 M/UL (4.70-6.10) L Hemoglobin 8.6 G/DL (14.2-18.0) L Hematocrit 28.3 % (42.0-52.0) L Mean Corpuscular Volume 92 FL (80-99) Mean Corpuscular Hemoglobin 28.1 PG (27.0-31.0) Mean Corpuscular Hemoglobin Concent 30.5 G/DL (32.0-36.0) L Red Cell Distribution Width 20.4 % (11.6-14.8) H Platelet Count 246 K/UL (150-450) Mean Platelet Volume 6.4 FL (6.5-10.1) L Neutrophils (%) (Auto) % (45.0-75.0) Lymphocytes (%) (Auto) % (20.0-45.0) Monocytes (%) (Auto) % (1.0-10.0) Eosinophils (%) (Auto) % (0.0-3.0) Basophils (%) (Auto) % (0.0-2.0) Differential Total Cells Counted 100 Neutrophils % (Manual) 61 % (45-75) Lymphocytes % (Manual) 20 % (20-45) Monocytes % (Manual) 8 % (1-10) Eosinophils % (Manual) 0 % (0-3) Basophils % (Manual) 0 % (0-2) Band Neutrophils 11 % (0-8) H Platelet Estimate Adequate Platelet Morphology Normal Polychromasia 1+ Hypochromasia 2+ Anisocytosis 2+ Arterial Blood pH 7.513 (7.350-7.450) Arterial Blood Partial Pressure CO2 25.0 mmHg (35.0-45.0) L Arterial Blood Partial Pressure O2 253.1 mmHg (75.0-100.0) H Arterial Blood HCO3 19.6 mmol/L (22.0-26.0) L Arterial Blood Oxygen Saturation 98.7 % (95-100) Arterial Blood Base Excess -2.5 (-2-2) L Asael Test Positive Test 01/30/20 08:50 Sodium Level 145 MMOL/L (136-145) Potassium Level 3.1 MMOL/L (3.5-5.1) L Chloride Level 113 MMOL/L (98-107) H Carbon Dioxide Level 21 MMOL/L (21-32) Blood Urea Nitrogen 11 mg/dL (7-18) Creatinine 0.9 MG/DL (0.55-1.30) Estimat Glomerular Filtration Rate > 60 mL/min (>60) Glucose Level 123 MG/DL (74-106) H Calcium Level 7.9 MG/DL (8.5-10.1) L Total Bilirubin 0.8 MG/DL (0.2-1.0) Aspartate Amino Transf (AST/SGOT) 55 U/L (15-37) H Alanine Aminotransferase (ALT/SGPT) 24 U/L (12-78) Alkaline Phosphatase 224 U/L (46-116) H Total Protein 5.6 G/DL (6.4-8.2) L Albumin 1.9 G/DL (3.4-5.0) L Globulin 3.7 g/dL Albumin/Globulin Ratio 0.5 (1.0-2.7) L Plan Problems: (1) Altered level of consciousness (2) Hypovolemic shock Assessment & Plan: resuscitation extubated monitor respiratory keep hob elevated supplemental O2 coded intubated in icu prognosis guarded ?code status change ?trach Gallbladder demonstrates sludge. No stones, wall thickening, nor pericholecystic fluid. Patient unable to report Wilson's sign Common bile duct measures 3 mm in diameter. No intrahepatic biliary ductal dilatation. Liver demonstrates coarsened echogenicity and surface nodularity. It demonstrates multiple cysts. Portal vein and hepatic veins are patent. The pancreas demonstrates 3 hypoechoic lesions in the head and body, measuring approximately 5 mm in diameter each. Spleen is unremarkable, poorly visualized. Left kidney measures 11.4 cm in length. Right kidney measures 11.3 cm length. Both kidneys demonstrate normal echogenicity. There is severe right and moderate left hydronephrosis. Echogenic foci are seen in the left renal sinus and collecting system. Bladder is empty, contains a Mathew catheter. Non-aneurysmal abdominal aorta . There are bilateral pleural effusions Impression: Bilateral right greater than left hydronephrosis, increased since prior study of 03/20/2019. Etiology not demonstrated Empty bladder with a Mathew catheter 3 hypoechoic lesions within the pancreatic head and body, each measuring about 5 mm. Appearance nonspecific. Recommend further evaluation with pancreas protocol MRI Bilateral pleural effusions Echogenic liver, consistent with hepatocellular disease. Surface likely nodularity raises concern for cirrhosis Gallbladder sludge. Negative for dilated bile ducts Probable nonobstructive left intrarenal calculi Multiple hepatic cysts (3) Lactic acid acidosis (4) Hypernatremia (5) Paraplegia (6) Anemia Assessment & Plan: no active bleeding noted no large hematoma dressings okay likely related to heme will monitor transfuse prbc with HD trend labs thank you (7) Diabetes (8) Weak (9) HTN (hypertension) (10) ARF (acute renal failure) (11) Hypercalcemia (12) Hyperuricemia (13) Dehydration (14) UTI (urinary tract infection) (15) Failure to thrive in adult Assessment & Plan: patient identified to have DTI on bilateral heels right with 5cm x 4cm area of dti not open no drainage no signs of infection left with 3cm x 2cm. pillow under leg optifoam dressings nutritional optimization will follow no acute surgery DAILY ESTIMATED NEEDS: Needs based on underweight, suspected wt loss, HD, CRITICAL CARE/ 57.6kg 25-33 kcals/kg [id number] total kcals 1.2-2 g protein/kg 69-115 g total protein 25-30 mL/kg 1284-2277 total fluid mLs NUTRITION DIAGNOSIS: *Increased kcal and pro needs r/t underweight status, suspected significant wt loss as evidenced by pt @ 71% IBW w/ BMI 17.2, underweight per guidelines, w/ suspected signficant wt loss of 30lbs/19% in 10 months. * Swallowing difficulty R/T dysphagia, respiratory status as evidenced by s/p NGT insertion (01/08), now NPO, s/p code blue (01/10), orally intubated. CURRENT TF:NPO ENTERAL NUTRITION RECOMMENDATIONS: WHEN HEMODYNAMICALLY STABLE: Nepro @ 40ml/hr x 24 hrs to provide 960ml, 1728kcal, 77g prot, 698ml free water WHEN HEMODYNAMICALLY STABLE AND MEDICALLY APPROPRIATE TO FEED: -> initiate TF @ 5ml/hr x 6hrs, advance slowly 5ml q 4-6 hrs as tolerated to goal rate -> HOB over 30 degrees/ water flush per MD WITHOUT HEMODYNAMIC STABILITY -> If medically appropriate to feed, rec trophic feeding of Nepro @ 5ml/hr x 24 hrs to maintain gut integrity (16) Pelvic mass Assessment & Plan: invasive pelvic mass likely prostate necrotic nodes likely spread recommend colonoscopy given invasion possible to rectum oncology input thank you There is a large pelvic mass which is cephalad to but inseparable from the prostate. This also is inseparable from the posterior wall of the bladder and there appears to be circumferential bladder wall thickening. This mass also appears to involve the seminal vesicles. This measures approximately 8.8 cm transverse by 10 cm craniocaudad by 7.4 cm AP. The periphery of this mass is very lobulated. The mass may also invade the adjacent rectum. There is bilateral iliac chain lymphadenopathy, with nodes measuring up to 3 cm in diameter. Some of these nodes are very low in attenuation indicating that they are necrotic. There is also retroperitoneal lymphadenopathy. There is severe right and moderate left hydronephrosis and bilateral hydroureter. The dilated ureters terminate at the level of the mass. No intrinsic renal parenchymal abnormality. The pancreas is unremarkable. No findings corresponding to the areas of low-attenuation described on prior sonogram are evident. No pancreatic ductal dilatation is evident. The liver demonstrates multiple cysts. The gallbladder, bile ducts, spleen, adrenals are unremarkable. The bones demonstrate diffuse involvement with multiple mixed osteolytic/osteosclerotic lesions, mostly sclerotic component predominating. There is a right groin dialysis catheter in place, tip at the level of the iliac venous confluence. There is a nasogastric tube,, tip in the stomach. There is a Mathew catheter. There is a rectal tube lying outside the patient with the balloon inflated within the inner gluteal fold. There are bilateral pleural effusions. There is compressive atelectasis of most if not all of both lower lobes. Impression: Large pelvic mass as described involving the prostate, bladder, seminal vesicles, presumably representing prostatic malignancy Evidence of disseminated malignancy, with extensive lymphadenopathy of and evidence of diffuse osseous metastases Severe right and moderate left hydronephrosis and bilateral hydroureter, due to ureteral obstruction by the above mass No pancreatic abnormality seen to correspond to findings reported on recent abdominal sonogram Right groin dialysis catheter in place Rectal catheter appears to be outside of the body Mtahew catheter, nasogastric tube also demonstrated Bilateral large pleural effusions. Compressive atelectasis of most of not all of both lower lobes Other findings as noted, including multiple liver cysts Lázaro Jenkins Jan 30, 2020 18:27
[2020-01-30] MEDS: Miralax 17gm pkt NG SCH (20:22)
[2020-01-30] MEDS: Dyna-Hex 2% Top Sol 2oz TOPIC SCH (20:22)
[2020-01-30] MEDS: Sennosides 8.6mg tab NG SCH (20:23)
--- NOTE | 2020-01-30 21:13 | General Progress Note ---
Subjective ROS Limited/Unobtainable: Yes Allergies: Coded Allergies: No Known Allergies (Unverified , 03/18/19) Objective Last 24 Hour Vital Signs Date Time Temp Pulse Resp B/P (MAP) Pulse Ox O2 Delivery O2 Flow Rate FiO2 01/30/20 20:45 106 28 98/65 (76) 100 01/30/20 20:30 105 28 95/60 (72) 100 01/30/20 20:15 106 28 97/60 (72) 100 01/30/20 20:00 104 01/30/20 20:00 104 27 100/62 (75) 100 01/30/20 20:00 50 01/30/20 20:00 Mechanical Ventilator 01/30/20 19:45 102 27 101/65 (77) 100 01/30/20 19:30 106 27 94/59 (71) 100 01/30/20 19:15 104 27 91/60 (70) 100 01/30/20 19:00 106 24 84/58 (67) 100 01/30/20 18:41 107 25 50 01/30/20 18:00 99 25 93/54 (67) 100 01/30/20 17:00 100 23 93/55 (68) 100 01/30/20 16:00 99.2 99 26 87/56 (66) 100 01/30/20 16:00 99 01/30/20 16:00 Mechanical Ventilator 01/30/20 16:00 50 01/30/20 15:28 101 24 70 01/30/20 15:00 98 24 93/57 (69) 100 01/30/20 14:00 98 25 90/57 (68) 100 01/30/20 13:00 97 23 86/55 (65) 100 01/30/20 12:00 93 01/30/20 12:00 98.8 96 20 92/58 (69) 100 01/30/20 12:00 Mechanical Ventilator 01/30/20 11:02 95 30 70 01/30/20 11:00 97 20 91/58 (69) 100 01/30/20 10:00 97 22 90/60 (70) 100 01/30/20 10:00 50 01/30/20 09:00 104 25 102/62 (75) 100 01/30/20 08:00 70 01/30/20 08:00 Mechanical Ventilator 01/30/20 08:00 105 01/30/20 08:00 98.8 106 21 106/65 (79) 100 01/30/20 07:27 104 23 70 01/30/20 07:00 105 23 104/61 (75) 100 01/30/20 06:00 99 23 99/65 (76) 100 01/30/20 05:30 98 24 95/64 (74) 100 01/30/20 05:00 96 25 103/65 (78) 100 01/30/20 04:00 97.4 95 25 98/59 (72) 100 01/30/20 04:00 70 01/30/20 04:00 Mechanical Ventilator 01/30/20 03:45 96 24 92/49 (63) 100 01/30/20 03:30 97 23 99/70 (80) 100 01/30/20 03:15 95 20 98/50 (66) 100 01/30/20 03:13 97 01/30/20 03:10 94 19 70 01/30/20 03:00 90 15 101/63 (76) 100 01/30/20 02:00 72 15 117/63 (81) 100 01/30/20 01:45 71 14 162/86 (111) 100 01/30/20 01:30 69 15 134/72 (92) 100 01/30/20 01:15 70 15 123/65 (84) 100 01/30/20 01:00 73 15 107/66 (80) 100 01/30/20 00:45 92 15 81/53 (62) 100 01/30/20 00:35 72/42 01/30/20 00:30 94 15 72/42 (52) 100 01/30/20 00:15 98 15 68/43 (51) 100 01/30/20 00:00 98.0 99 15 65/42 (50) 100 01/30/20 00:00 70 01/29/20 23:45 102 16 64/41 (49) 100 01/29/20 23:34 112 24 61/43 (49) 100 01/29/20 23:33 113 30 54/42 (46) 100 01/29/20 23:30 Mechanical Ventilator 01/29/20 23:30 115 29 61/42 (48) 100 01/29/20 23:25 70 01/29/20 23:22 127 24 100 Mechanical Ventilator 01/29/20 23:15 118 20 108/67 (81) 100 01/29/20 23:14 127 24 100 01/29/20 23:11 118 01/29/20 23:06 140 20 103/68 (80) Intake and Output 01/29/20 01/30/20 19:00 07:00 Intake Total 30 ml 405.000 ml Output Total 950 ml 845 ml Balance -920 ml -440.000 ml IV Total 375.000 ml Tube Feeding 30 ml 30 ml Output Urine Total 950 ml 725 ml Stool Total 0 ml 120 ml Laboratory Tests 01/29/20 22:37: POC Whole Blood Glucose 170H 01/30/20 04:00: White Blood Count 4.1L, Red Blood Count 3.08L, Hemoglobin 8.6L, Hematocrit 28.3L , Mean Corpuscular Volume 92, Mean Corpuscular Hemoglobin 28.1, Mean Corpuscular Hemoglobin Concent 30.5L, Red Cell Distribution Width 20.4H, Platelet Count 246, Mean Platelet Volume 6.4L, Neutrophils (%) (Auto) , Lymphocytes (%) (Auto) , Monocytes (%) (Auto) , Eosinophils (%) (Auto) , Basophils (%) (Auto) , Differential Total Cells Counted 100, Neutrophils % (Manual) 61, Lymphocytes % (Manual) 20, Monocytes % (Manual) 8, Eosinophils % (Manual) 0, Basophils % (Manual) 0, Band Neutrophils 11H, Platelet Estimate Adequate, Platelet Morphology Normal, Polychromasia 1+, Hypochromasia 2+, Anisocytosis 2+ 01/30/20 05:36: POC Whole Blood Glucose [Pending] 01/30/20 08:08: Arterial Blood pH 7.513H, Arterial Blood Partial Pressure CO2 25.0L, Arterial Blood Partial Pressure O2 253.1H, Arterial Blood HCO3 19.6L, Arterial Blood Oxygen Saturation 98.7, Arterial Blood Base Excess -2.5L, Asael Test Positive 01/30/20 08:50: Sodium Level 145, Potassium Level 3.1L, Chloride Level 113H, Carbon Dioxide Level 21, Blood Urea Nitrogen 11, Creatinine 0.9, Estimat Glomerular Filtration Rate > 60, Glucose Level 123H, Calcium Level 7.9L, Total Bilirubin 0.8, Aspartate Amino Transf (AST/SGOT) 55H, Alanine Aminotransferase (ALT/SGPT) 24, Alkaline Phosphatase 224H, Total Protein 5.6L, Albumin 1.9L, Globulin 3.7, Albumin/Globulin Ratio 0.5L Height (Feet): 5 Height (Inches): 9.00 Weight (Pounds): 149 Assessment/Plan Problem List: (1) Altered level of consciousness ICD Codes: R40.4 - Transient alteration of awareness SNOMED: 7982391 (2) Hypernatremia ICD Codes: E87.0 - Hyperosmolality and hypernatremia SNOMED: 214205849 (3) Paraplegia ICD Codes: G82.20 - Paraplegia, unspecified SNOMED: 67313664 (4) Anemia ICD Codes: D64.9 - Anemia, unspecified SNOMED: 212247949 (5) Diabetes ICD Codes: E11.9 - Type 2 diabetes mellitus without complications SNOMED: 70173007 (6) HTN (hypertension) ICD Codes: I10 - Essential (primary) hypertension SNOMED: 62793645 (7) ARF (acute renal failure) ICD Codes: N17.9 - Acute kidney failure, unspecified SNOMED: 10876136 (8) Dehydration ICD Codes: E86.0 - Dehydration SNOMED: 31521204 (9) UTI (urinary tract infection) ICD Codes: N39.0 - Urinary tract infection, site not specified SNOMED: 89302293 (10) Failure to thrive in adult ICD Codes: R62.7 - Adult failure to thrive SNOMED: 569427529 Status: progressing, unchanged Assessment/Plan: afebrile low k azotemia check lytes htn reviewed chart and labs Juan Diego Randall MD Jan 30, 2020 21:13
[2020-01-31] VITALS (39 sets, daily range): BP systolic 62–153; BP diastolic 46–79
[2020-01-31] MEDS: Norepinephrine 4mg/NS Premix 250 ML IV SCH ×2 (00:30→18:00)
[2020-01-31] MEDS: Metoclopramide 10mg/10ml Liq NG SCH ×5 (00:42→23:11)
[2020-01-31 05:03] LABS: HEMATOCRIT 26.5 % (42.0-52.0); HEMOGLOBIN 8.1 G/DL (14.2-18.0); MEAN CORPUSCULAR VOLUME 91 FL (80-99); PLATELET COUNT 258 K/UL (150-450); RED BLOOD COUNT 2.91 M/UL (4.70-6.10); RED CELL DISTRIBUTION WIDTH 19.8 % (11.6-14.8); WHITE BLOOD COUNT 8.4 K/UL (4.8-10.8)
[2020-01-31] MEDS: Midodrine 10mg tab NG SCH ×3 (05:56→21:24)
[2020-01-31] MEDS: Piperacillin/Tazobactam 3.375 GM in NS 110 ML IVPB SCH ×3 (05:56→21:24)
--- NOTE | 2020-01-31 07:07 | General Progress Note ---
Subjective ROS Limited/Unobtainable: No Allergies: Coded Allergies: No Known Allergies (Unverified , 03/18/19) Objective Last 24 Hour Vital Signs Date Time Temp Pulse Resp B/P (MAP) Pulse Ox O2 Delivery O2 Flow Rate FiO2 01/31/20 06:30 98 26 126/71 (89) 100 01/31/20 06:00 103 26 114/68 (83) 100 01/31/20 05:30 103 27 115/67 (83) 100 01/31/20 05:00 105 28 109/71 (84) 100 01/31/20 04:30 105 28 113/70 (84) 100 01/31/20 04:00 108 01/31/20 04:00 Mechanical Ventilator 01/31/20 04:00 108 28 118/77 (91) 100 01/31/20 04:00 50 01/31/20 03:30 106 29 114/69 (84) 01/31/20 03:00 105 27 121/75 (90) 100 01/31/20 02:44 104 26 50 01/31/20 02:30 105 28 102/68 (79) 100 01/31/20 02:00 104 26 113/66 (82) 100 01/31/20 01:30 104 28 96/61 (73) 100 01/31/20 01:00 105 27 97/62 (74) 100 01/31/20 00:30 101/62 01/31/20 00:30 103 28 99/62 (74) 100 01/31/20 00:00 Mechanical Ventilator 01/31/20 00:00 103 27 101/62 (75) 100 01/30/20 23:30 104 28 100/66 (77) 100 01/30/20 23:00 104 28 100/64 (76) 100 01/30/20 22:52 103 27 50 01/30/20 22:30 108 27 99/67 (78) 100 01/30/20 22:00 107 28 98/60 (73) 100 01/30/20 21:30 107 28 97/60 (72) 100 01/30/20 21:00 105 29 98/67 (77) 100 01/30/20 20:30 105 28 95/60 (72) 100 01/30/20 20:00 104 01/30/20 20:00 99.0 104 27 100/62 (75) 100 01/30/20 20:00 50 01/30/20 20:00 Mechanical Ventilator 01/30/20 19:30 106 27 94/59 (71) 100 01/30/20 19:00 106 24 84/58 (67) 100 01/30/20 18:41 107 25 50 01/30/20 18:00 99 25 93/54 (67) 100 01/30/20 17:00 100 23 93/55 (68) 100 01/30/20 16:00 99.2 99 26 87/56 (66) 100 01/30/20 16:00 99 01/30/20 16:00 Mechanical Ventilator 01/30/20 16:00 50 01/30/20 15:28 101 24 70 01/30/20 15:00 98 24 93/57 (69) 100 01/30/20 14:00 98 25 90/57 (68) 100 01/30/20 13:00 97 23 86/55 (65) 100 01/30/20 12:00 93 01/30/20 12:00 98.8 96 20 92/58 (69) 100 01/30/20 12:00 Mechanical Ventilator 01/30/20 11:02 95 30 70 01/30/20 11:00 97 20 91/58 (69) 100 01/30/20 10:00 97 22 90/60 (70) 100 01/30/20 10:00 50 01/30/20 09:00 104 25 102/62 (75) 100 01/30/20 08:00 70 01/30/20 08:00 Mechanical Ventilator 01/30/20 08:00 105 01/30/20 08:00 98.8 106 21 106/65 (79) 100 01/30/20 07:27 104 23 70 Intake and Output 01/30/20 01/31/20 19:00 07:00 Intake Total 1090.0 ml 720 ml Output Total 620 ml 200 ml Balance 470.0 ml 520 ml Free Water 60 ml IV Total 770.0 ml 420 ml Tube Feeding 260 ml 300 ml Output Urine Total 420 ml 200 ml Stool Total 200 ml Laboratory Tests 01/30/20 08:08: Arterial Blood pH 7.513H, Arterial Blood Partial Pressure CO2 25.0L, Arterial Blood Partial Pressure O2 253.1H, Arterial Blood HCO3 19.6L, Arterial Blood Oxygen Saturation 98.7, Arterial Blood Base Excess -2.5L, Asael Test Positive 01/30/20 08:50: Sodium Level 145, Potassium Level 3.1L, Chloride Level 113H, Carbon Dioxide Level 21, Blood Urea Nitrogen 11, Creatinine 0.9, Estimat Glomerular Filtration Rate > 60, Glucose Level 123H, Calcium Level 7.9L, Total Bilirubin 0.8, Aspartate Amino Transf (AST/SGOT) 55H, Alanine Aminotransferase (ALT/SGPT) 24, Alkaline Phosphatase 224H, Total Protein 5.6L, Albumin 1.9L, Globulin 3.7, Albumin/Globulin Ratio 0.5L 01/31/20 03:45: Sodium Level [Pending], Potassium Level [Pending], Chloride Level [Pending], Carbon Dioxide Level [Pending], Blood Urea Nitrogen [Pending], Creatinine [Pending], Estimat Glomerular Filtration Rate [Pending], Glucose Level [Pending], Calcium Level [Pending], Total Bilirubin [Pending], Aspartate Amino Transf (AST/SGOT) [Pending], Alanine Aminotransferase (ALT/SGPT) [Pending], Alkaline Phosphatase [Pending], Total Protein [Pending], Albumin [Pending], Globulin [Pending], White Blood Count 8.4#, Red Blood Count 2.91L, Hemoglobin 8.1L, Hematocrit 26.5L, Mean Corpuscular Volume 91, Mean Corpuscular Hemoglobin 28.0, Mean Corpuscular Hemoglobin Concent 30.7L, Red Cell Distribution Width 19.8H, Platelet Count 258, Mean Platelet Volume 6.6, Neutrophils (%) (Auto) , Lymphocytes (%) (Auto) , Monocytes (%) (Auto) , Eosinophils (%) (Auto) , Basophils (%) (Auto) , Neutrophils % (Manual) [Pending], Lymphocytes % (Manual) [Pending], Platelet Estimate [Pending], Platelet Morphology [Pending], Uric Acid [Pending], Phosphorus Level [Pending], Magnesium Level [Pending], C-Reactive Protein, Quantitative [Pending], Pro-B-Type Natriuretic Peptide [Pending] Height (Feet): 5 Height (Inches): 9.00 Weight (Pounds): 149 General Appearance: lethargic EENT: normal ENT inspection Neck: supple Cardiovascular: normal rate Respiratory/Chest: decreased breath sounds Abdomen: hypoactive bowel sounds Extremities: non-tender Assessment/Plan Status: progressing, unchanged Assessment/Plan: AMS dementia Anemia DM hyper CA elevated AST low albumin COPD RI HTN metastatic prostate CA intubated in the icu NGTF plan PEG possibly tomorrow Paulino Bueno MD Jan 31, 2020 07:07
--- NOTE | 2020-01-31 07:15 | Hematology/Onc Progress Note ---
Assessment/Plan Assessment/Plan Assessment/Recs # Metastatic prostate cancer -- w psa 2741, has a Large pelvic mass as described involving the prostate, bladder, seminal vesicles, presumably representing prostatic malignancy --> CT Evidence of disseminated malignancy, with extensive lymphadenopathy of and evidenc of diffuse osseous metastases Severe right and moderate left hydronephrosis and bilateral hydroureter, due to ureteral obstruction by the above mass --> tumor markers ordered, psa 2741 --> after above reviewed, consider further biopsy of prostate with uro as needed # Pancytopenia with initially Anemia due to underlying chronic medical issues, multifactorial v Gi bleed v malignancy --> Anemia workup has been ordered, rule out gi bleed --> No evidence of hemolysis is noted, peripheral smear has been reviewed. --> Hgb goal >7. Transfuse prn. --> Epogen or iron at this time is not particularly indicated --> Medications have been reviewed --> low threshold for gi evaluation in case has occult + --> hgb 10-->9.7-->9.2->10-->8.6-->7.7-->5-->8.3->9.3->7.8-->8.2-->8.1-->9.3-->9.9->10 --> 11/8 flow cytometry ordered bc of nucleated cells on smear-->neg --> wbc 5-->4-->3.9-->4 --> plt 150-->98-->82-->51->49-->46-->50-->68-->88-->109 --> hep and hiv panel--NEG --> us abd-->shows 3 small lesions, requires further eval --> CT a/p reviewed # Multiple lesions noted in pancreas --> MRI abd ordered--> nondiagnostic --> CT of the abd reviewed # Protein caloric malnutrition --> daily calorie counts --> daily weights --> mirtazapine started # Acute renal failure --> continue on ivfs --> as per renal # Hypokalemia --> replete with K # Severe dehydration --> ivfs ongoing # Hypernatremia indicative of severe water deficit # Severe hyperuricemia, partly due to dehydration and renal failure # Acute metabolic and toxic encephalopathy # Mild, malnutrition # Psych issues per psych # Lactic acid, possible sepsis # Dvt ppx heparin sq->Scds # Comfort care potentially The timing of this note does not necessarily reflect the time of the patient was seen. Greatly appreciate consultation. Subjective HEENT: Denies: no symptoms, eye pain, blurred vision, tearing, double vision, ear pain, ear discharge, nose pain, nose congestion, throat pain, throat swelling, mouth pain, mouth swelling, other Cardiovascular: Denies: no symptoms, chest pain, edema, irregular heart rate, lightheadedness, palpitations, syncope, other Respiratory: Denies: no symptoms, cough, shortness of breath, SOB with excertion, SOB at rest, sputum, wheezing, other Genitourinary: Denies: no symptoms, burning, discharge, frequency, flank pain, hematuria, incontinence, pain, urgency, other Hematologic/Lymphatic: Denies: no symptoms, anemia, easy bleeding, easy bruising, adenopathy, other Allergies: Coded Allergies: No Known Allergies (Unverified , 03/18/19) Subjective 01/07 meds noted, no bleeding, hgb 10, no hemolysis, hgb 10.1 01/08 labs reviewed, vi rn, no major events, no bleeding, hgb lower 01/09 labs noted, no bleeding, vi rn, no major changes, plt lower 01/10 did have epistaxis overnight, no bleeding, night sweats, epistaxis better 01/12 icu, remains on vent, levo, no bleeding, meds noted 01/13 remains in icu, no bleeding, on levo, no major changes 01/14 icu, is on 1l, restarints are off, no bleeding, no night sweats 01/15 icu, meds noted, with diarrhea, rectal tube reinserted, on nc 01/16 out of icu, no bleeding, meds reviewed, cbc ad bmp pending 01/17 unable to lay still for the mri, thus ct ordered, vi [facility] 01/19 hgb 6.9, no bleeding, no hemolysis, ct reviewed 01/20 obtunded, meds reviewed, hgb is better, in icu 01/21 obtunded, npo, labs hjave been reviewed, hgb 9.2 01/22 obtunded, in icu, no bleeding, plt 109 01/23 obtunded still icu, on venturimask, meds reviewed, labs noted 01/24 obtunded, in icu, labs reviewed, meds noted, wbc 4.1, plt 133 01/26 is out of the icu, no bleeding, meds noted, labs ordered 01/27 nonverbal, out of icu, on feedigs, no bleeding, labs reviewed 01/28 icu, nv, is on midrinone, linzess, ivf 01/29 icu, off levop, ngt restarted, meds noted 01/30 icu, with large bm, labs reviewed, no f/c, zosyn Objective Objective Current Medications Medications (Trade) Dose Ordered Sig/Jesse Route PRN Reason Start Time Stop Time Status Last Admin Dose Admin Acetaminophen (Tylenol) 650 mg Q4H PRN ORAL PRNH/TEMP 01/05/20 20:15 02/04/20 20:14 01/12/20 03:10 Bisacodyl (Dulcolax) 10 mg DAILY PRN RECTAL Constipation 01/05/20 20:15 04/04/20 20:14 Chlorhexidine Gluconate (Navya-Hex 2%) 1 applic DAILY@2000 TOPIC 01/11/20 20:00 04/10/20 19:59 01/30/20 20:22 Dextrose (Dextrose 50%) 25 ml Q30M PRN IV Hypoglycemia 01/05/20 20:15 04/04/20 20:14 01/24/20 23:53 Dextrose (Dextrose 50%) 50 ml Q30M PRN IV Hypoglycemia 01/05/20 20:15 04/04/20 20:14 Dextrose/Sodium Chloride 1,000 ml @ 60 mls/hr [id number] IV 01/24/20 13:30 02/23/20 13:29 01/31/20 00:00 Lansoprazole (Prevacid) 30 mg Q12HR NG 01/28/20 21:00 02/27/20 20:59 01/30/20 20:23 Linaclotide (Linzess) 290 mcg BEFORE BREAKFAST ORAL 01/10/20 06:30 04/09/20 06:29 01/31/20 05:56 Loperamide HCl (Imodium) 2 mg Q6H PRN NG Diarrhea 01/27/20 15:45 02/26/20 15:44 01/27/20 17:58 Metoclopramide HCl (Reglan) 10 mg EVERY 6 HOURS NG 01/19/20 12:00 02/18/20 11:59 01/31/20 05:56 Metoclopramide HCl (Reglan) 10 mg Q6H PRN IVP Nausea & Vomiting 01/16/20 13:00 02/15/20 12:59 Midodrine (Pro-Amatine) 10 mg Q8HR NG 01/20/20 22:00 04/13/20 17:59 01/31/20 05:56 Norepinephrine Bitartrate 250 ml @ 7.5 mls/hr Q24H IV 01/30/20 00:30 02/02/20 00:23 01/30/20 00:35 Ondansetron HCl (Zofran) 4 mg Q6H PRN IVP Nausea & Vomiting 01/10/20 06:30 02/09/20 06:29 Piperacillin Sod/ Tazobactam Sod 3.375 gm/Sodium Chloride 110 ml @ 27.5 mls/hr EVERY 8 HOURS IVPB 01/30/20 14:00 02/04/20 13:59 01/31/20 05:56 Polyethylene Glycol (Miralax) 17 gm BEDTIME NG 01/11/20 21:00 02/08/20 20:59 01/29/20 20:39 Sennosides (Senokot) 8.6 mg QHS NG 01/11/20 21:00 02/04/20 20:59 01/29/20 20:39 Vitamin D (Vitamin D) 3,000 intlu DAILY GT 01/19/20 12:00 02/18/20 11:59 01/30/20 08:41 Last 24 Hour Vital Signs Date Time Temp Pulse Resp B/P (MAP) Pulse Ox O2 Delivery O2 Flow Rate FiO2 01/31/20 06:30 98 26 126/71 (89) 100 01/31/20 06:00 103 26 114/68 (83) 100 01/31/20 05:30 103 27 115/67 (83) 100 01/31/20 05:00 105 28 109/71 (84) 100 01/31/20 04:30 105 28 113/70 (84) 100 01/31/20 04:00 108 01/31/20 04:00 Mechanical Ventilator 01/31/20 04:00 108 28 118/77 (91) 100 01/31/20 04:00 50 01/31/20 03:30 106 29 114/69 (84) 01/31/20 03:00 105 27 121/75 (90) 100 01/31/20 02:44 104 26 50 01/31/20 02:30 105 28 102/68 (79) 100 01/31/20 02:00 104 26 113/66 (82) 100 01/31/20 01:30 104 28 96/61 (73) 100 01/31/20 01:00 105 27 97/62 (74) 100 01/31/20 00:30 101/62 01/31/20 00:30 103 28 99/62 (74) 100 01/31/20 00:00 Mechanical Ventilator 01/31/20 00:00 103 27 101/62 (75) 100 01/30/20 23:30 104 28 100/66 (77) 100 01/30/20 23:00 104 28 100/64 (76) 100 01/30/20 22:52 103 27 50 01/30/20 22:30 108 27 99/67 (78) 100 01/30/20 22:00 107 28 98/60 (73) 100 01/30/20 21:30 107 28 97/60 (72) 100 01/30/20 21:00 105 29 98/67 (77) 100 01/30/20 20:30 105 28 95/60 (72) 100 01/30/20 20:00 104 01/30/20 20:00 99.0 104 27 100/62 (75) 100 01/30/20 20:00 50 01/30/20 20:00 Mechanical Ventilator 01/30/20 19:30 106 27 94/59 (71) 100 01/30/20 19:00 106 24 84/58 (67) 100 01/30/20 18:41 107 25 50 01/30/20 18:00 99 25 93/54 (67) 100 01/30/20 17:00 100 23 93/55 (68) 100 01/30/20 16:00 99.2 99 26 87/56 (66) 100 01/30/20 16:00 99 01/30/20 16:00 Mechanical Ventilator 01/30/20 16:00 50 01/30/20 15:28 101 24 70 01/30/20 15:00 98 24 93/57 (69) 100 01/30/20 14:00 98 25 90/57 (68) 100 01/30/20 13:00 97 23 86/55 (65) 100 01/30/20 12:00 93 01/30/20 12:00 98.8 96 20 92/58 (69) 100 01/30/20 12:00 Mechanical Ventilator 01/30/20 11:02 95 30 70 01/30/20 11:00 97 20 91/58 (69) 100 01/30/20 10:00 97 22 90/60 (70) 100 01/30/20 10:00 50 01/30/20 09:00 104 25 102/62 (75) 100 01/30/20 08:00 70 01/30/20 08:00 Mechanical Ventilator 01/30/20 08:00 105 01/30/20 08:00 98.8 106 21 106/65 (79) 100 01/30/20 07:27 104 23 70 01/30/20 07:00 105 23 104/61 (75) 100 01/30/20 06:00 99 23 99/65 (76) 100 01/30/20 05:30 98 24 95/64 (74) 100 01/30/20 05:00 96 25 103/65 (78) 100 01/30/20 04:00 97.4 95 25 98/59 (72) 100 01/30/20 04:00 70 01/30/20 04:00 Mechanical Ventilator 01/30/20 03:45 96 24 92/49 (63) 100 01/30/20 03:30 97 23 99/70 (80) 100 01/30/20 03:15 95 20 98/50 (66) 100 01/30/20 03:13 97 01/30/20 03:10 94 19 70 01/30/20 03:00 90 15 101/63 (76) 100 01/30/20 02:00 72 15 117/63 (81) 100 01/30/20 01:45 71 14 162/86 (111) 100 01/30/20 01:30 69 15 134/72 (92) 100 01/30/20 01:15 70 15 123/65 (84) 100 01/30/20 01:00 73 15 107/66 (80) 100 01/30/20 00:45 92 15 81/53 (62) 100 01/30/20 00:35 72/42 01/30/20 00:30 94 15 72/42 (52) 100 01/30/20 00:15 98 15 68/43 (51) 100 01/30/20 00:00 98.0 99 15 65/42 (50) 100 01/30/20 00:00 70 01/29/20 23:45 102 16 64/41 (49) 100 01/29/20 23:34 112 24 61/43 (49) 100 01/29/20 23:33 113 30 54/42 (46) 100 01/29/20 23:30 Mechanical Ventilator 01/29/20 23:30 115 29 61/42 (48) 100 01/29/20 23:25 70 01/29/20 23:22 127 24 100 Mechanical Ventilator 01/29/20 23:15 118 20 108/67 (81) 100 01/29/20 23:14 127 24 100 01/29/20 23:11 118 01/29/20 23:06 140 20 103/68 (80) 01/29/20 21:00 97.9 94 20 130/72 (91) 99 01/29/20 20:00 104 01/29/20 20:00 98.1 102 24 124/72 (89) 99 01/29/20 18:59 96 Nasal Cannula 2.0 28 01/29/20 16:00 97.9 94 20 130/72 (91) 99 01/29/20 16:00 94 01/29/20 12:00 97.5 96 20 137/88 (104) 96 01/29/20 12:00 93 01/29/20 09:00 Nasal Cannula 2.0 01/29/20 08:00 111 01/29/20 08:00 97.7 109 24 153/80 (104) 94 01/29/20 07:22 94 Nasal Cannula 2.0 28 Intake and Output 01/30/20 01/31/20 19:00 07:00 Intake Total 1090.0 ml 720 ml Output Total 620 ml 200 ml Balance 470.0 ml 520 ml Free Water 60 ml IV Total 770.0 ml 420 ml Tube Feeding 260 ml 300 ml Output Urine Total 420 ml 200 ml Stool Total 200 ml Labs Test 01/28/20 11:33 01/29/20 06:17 01/29/20 09:45 01/29/20 12:59 POC Whole Blood Glucose 105 MG/DL (74-106) White Blood Count 3.0 K/UL (4.8-10.8) Red Blood Count 3.27 M/UL (4.70-6.10) Hemoglobin 9.3 G/DL (14.2-18.0) Hematocrit 30.4 % (42.0-52.0) Mean Corpuscular Volume 93 FL (80-99) Mean Corpuscular Hemoglobin 28.5 PG (27.0-31.0) Mean Corpuscular Hemoglobin Concent 30.7 G/DL (32.0-36.0) Red Cell Distribution Width 21.0 % (11.6-14.8) Platelet Count 244 K/UL (150-450) Mean Platelet Volume 6.5 FL (6.5-10.1) Neutrophils (%) (Auto) % (45.0-75.0) Lymphocytes (%) (Auto) % (20.0-45.0) Monocytes (%) (Auto) % (1.0-10.0) Eosinophils (%) (Auto) % (0.0-3.0) Basophils (%) (Auto) % (0.0-2.0) Differential Total Cells Counted 100 Neutrophils % (Manual) 60 % (45-75) Lymphocytes % (Manual) 26 % (20-45) Monocytes % (Manual) 14 % (1-10) Eosinophils % (Manual) 0 % (0-3) Basophils % (Manual) 0 % (0-2) Band Neutrophils 0 % (0-8) Platelet Estimate Adequate Platelet Morphology Normal Hypochromasia 1+ Anisocytosis 2+ Sodium Level 139 MMOL/L (136-145) Potassium Level 3.5 MMOL/L (3.5-5.1) Chloride Level 108 MMOL/L (98-107) Carbon Dioxide Level 23 MMOL/L (21-32) Anion Gap 8 mmol/L (5-15) Blood Urea Nitrogen 9 mg/dL (7-18) Creatinine 0.8 MG/DL (0.55-1.30) Estimat Glomerular Filtration Rate > 60 mL/min (>60) Glucose Level 111 MG/DL (74-106) Calcium Level 7.5 MG/DL (8.5-10.1) Phosphorus Level 3.0 MG/DL (2.5-4.9) Magnesium Level 1.7 MG/DL (1.8-2.4) Total Bilirubin 0.4 MG/DL (0.2-1.0) Aspartate Amino Transf (AST/SGOT) 34 U/L (15-37) Alanine Aminotransferase (ALT/SGPT) 16 U/L (12-78) Alkaline Phosphatase 206 U/L (46-116) Total Protein 6.0 G/DL (6.4-8.2) Albumin 2.0 G/DL (3.4-5.0) Globulin 4.0 g/dL Albumin/Globulin Ratio 0.5 (1.0-2.7) Arterial Blood pH 7.332 (7.350-7.450) Arterial Blood Partial Pressure CO2 37.6 mmHg (35.0-45.0) Arterial Blood Partial Pressure O2 81.7 mmHg (75.0-100.0) Arterial Blood HCO3 19.5 mmol/L (22.0-26.0) Arterial Blood Oxygen Saturation 95.6 % (95-100) Arterial Blood Base Excess -5.9 (-2-2) Asael Test Positive Test 01/29/20 16:32 01/29/20 22:37 01/30/20 04:00 01/30/20 05:36 POC Whole Blood Glucose 78 MG/DL (74-106) 170 MG/DL (74-106) White Blood Count 4.1 K/UL (4.8-10.8) Red Blood Count 3.08 M/UL (4.70-6.10) Hemoglobin 8.6 G/DL (14.2-18.0) Hematocrit 28.3 % (42.0-52.0) Mean Corpuscular Volume 92 FL (80-99) Mean Corpuscular Hemoglobin 28.1 PG (27.0-31.0) Mean Corpuscular Hemoglobin Concent 30.5 G/DL (32.0-36.0) Red Cell Distribution Width 20.4 % (11.6-14.8) Platelet Count 246 K/UL (150-450) Mean Platelet Volume 6.4 FL (6.5-10.1) Neutrophils (%) (Auto) % (45.0-75.0) Lymphocytes (%) (Auto) % (20.0-45.0) Monocytes (%) (Auto) % (1.0-10.0) Eosinophils (%) (Auto) % (0.0-3.0) Basophils (%) (Auto) % (0.0-2.0) Differential Total Cells Counted 100 Neutrophils % (Manual) 61 % (45-75) Lymphocytes % (Manual) 20 % (20-45) Monocytes % (Manual) 8 % (1-10) Eosinophils % (Manual) 0 % (0-3) Basophils % (Manual) 0 % (0-2) Band Neutrophils 11 % (0-8) Platelet Estimate Adequate Platelet Morphology Normal Polychromasia 1+ Hypochromasia 2+ Anisocytosis 2+ Test 01/30/20 08:08 01/30/20 08:50 01/31/20 03:45 Arterial Blood pH 7.513 (7.350-7.450) Arterial Blood Partial Pressure CO2 25.0 mmHg (35.0-45.0) Arterial Blood Partial Pressure O2 253.1 mmHg (75.0-100.0) Arterial Blood HCO3 19.6 mmol/L (22.0-26.0) Arterial Blood Oxygen Saturation 98.7 % (95-100) Arterial Blood Base Excess -2.5 (-2-2) Asael Test Positive Sodium Level 145 MMOL/L (136-145) Potassium Level 3.1 MMOL/L (3.5-5.1) Chloride Level 113 MMOL/L (98-107) Carbon Dioxide Level 21 MMOL/L (21-32) Blood Urea Nitrogen 11 mg/dL (7-18) Creatinine 0.9 MG/DL (0.55-1.30) Estimat Glomerular Filtration Rate > 60 mL/min (>60) Glucose Level 123 MG/DL (74-106) Calcium Level 7.9 MG/DL (8.5-10.1) Total Bilirubin 0.8 MG/DL (0.2-1.0) Aspartate Amino Transf (AST/SGOT) 55 U/L (15-37) Alanine Aminotransferase (ALT/SGPT) 24 U/L (12-78) Alkaline Phosphatase 224 U/L (46-116) Total Protein 5.6 G/DL (6.4-8.2) Albumin 1.9 G/DL (3.4-5.0) Globulin 3.7 g/dL Albumin/Globulin Ratio 0.5 (1.0-2.7) White Blood Count 8.4 K/UL (4.8-10.8) Red Blood Count 2.91 M/UL (4.70-6.10) Hemoglobin 8.1 G/DL (14.2-18.0) Hematocrit 26.5 % (42.0-52.0) Mean Corpuscular Volume 91 FL (80-99) Mean Corpuscular Hemoglobin 28.0 PG (27.0-31.0) Mean Corpuscular Hemoglobin Concent 30.7 G/DL (32.0-36.0) Red Cell Distribution Width 19.8 % (11.6-14.8) Platelet Count 258 K/UL (150-450) Mean Platelet Volume 6.6 FL (6.5-10.1) Neutrophils (%) (Auto) % (45.0-75.0) Lymphocytes (%) (Auto) % (20.0-45.0) Monocytes (%) (Auto) % (1.0-10.0) Eosinophils (%) (Auto) % (0.0-3.0) Basophils (%) (Auto) % (0.0-2.0) Height (Feet): 5 Height (Inches): 9.00 Weight (Pounds): 149 Objective PE: Vitals: reviewed General Appearance: NAD HEENT: normocephalic, atraumatic Neck: non-tender, normal alignment Respiratory/Chest: nromal breath sounds bilaterally Cardiovascular/Chest: normal peripheral pulses, normal rate Abdomen: normal bowel sounds, soft, nontender Extremities: normal range of motion Samuel Son MD Jan 31, 2020 07:15
[2020-01-31 07:34] LABS: ALBUMIN 1.7 G/DL (3.4-5.0); ALBUMIN/GLOBULIN RATIO 0.4 (1.0-2.7); ALKALINE PHOSPHATASE 226 U/L (46-116); ASPARTATE AMINO TRANSFERASE 30 U/L (15-37); BILIRUBIN,TOTAL 0.5 MG/DL (0.2-1.0); BLOOD UREA NITROGEN 13 mg/dL (7-18); CALCIUM 7.5 MG/DL (8.5-10.1); CARBON DIOXIDE 23 MMOL/L (21-32); CHLORIDE 109 MMOL/L (98-107); CREATININE 0.9 MG/DL (0.55-1.30); PHOSPHORUS 1.4 MG/DL (2.5-4.9); POTASSIUM 3.1 MMOL/L (3.5-5.1); SODIUM 141 MMOL/L (136-145)
[2020-01-31 07:58] LABS: ALANINE AMINOTRANSFERASE 24 U/L (12-78)
--- NOTE | 2020-01-31 08:31 | Pulmonology Progress Note ---
Subjective ROS Limited/Unobtainable: No Interval Events: Remains intubated Constitutional: Reports: no symptoms HEENT: Repors: no symptoms Respiratory: Reports: no symptoms Cardiovascular: Reports: no symptoms Gastrointestinal/Abdominal: Reports: no symptoms Genitourinary: Reports: no symptoms Allergies: Coded Allergies: No Known Allergies (Unverified , 03/18/19) All Systems: reviewed and negative except above Objective Last 24 Hour Vital Signs Date Time Temp Pulse Resp B/P (MAP) Pulse Ox O2 Delivery O2 Flow Rate FiO2 01/31/20 07:53 96 26 50 01/31/20 07:00 99.8 94 26 118/68 (85) 100 01/31/20 06:30 98 26 126/71 (89) 100 01/31/20 06:00 103 26 114/68 (83) 100 01/31/20 05:30 103 27 115/67 (83) 100 01/31/20 05:00 105 28 109/71 (84) 100 01/31/20 04:30 105 28 113/70 (84) 100 01/31/20 04:00 108 01/31/20 04:00 Mechanical Ventilator 01/31/20 04:00 108 28 118/77 (91) 100 01/31/20 04:00 50 01/31/20 03:30 106 29 114/69 (84) 01/31/20 03:00 105 27 121/75 (90) 100 01/31/20 02:44 104 26 50 01/31/20 02:30 105 28 102/68 (79) 100 01/31/20 02:00 104 26 113/66 (82) 100 01/31/20 01:30 104 28 96/61 (73) 100 01/31/20 01:00 105 27 97/62 (74) 100 01/31/20 00:30 101/62 01/31/20 00:30 103 28 99/62 (74) 100 01/31/20 00:00 Mechanical Ventilator 01/31/20 00:00 99.5 103 27 101/62 (75) 100 01/30/20 23:30 104 28 100/66 (77) 100 01/30/20 23:00 104 28 100/64 (76) 100 01/30/20 22:52 103 27 50 01/30/20 22:30 108 27 99/67 (78) 100 01/30/20 22:00 107 28 98/60 (73) 100 01/30/20 21:30 107 28 97/60 (72) 100 01/30/20 21:00 105 29 98/67 (77) 100 01/30/20 20:30 105 28 95/60 (72) 100 01/30/20 20:00 104 01/30/20 20:00 99.0 104 27 100/62 (75) 100 01/30/20 20:00 50 01/30/20 20:00 Mechanical Ventilator 01/30/20 19:30 106 27 94/59 (71) 100 01/30/20 19:00 106 24 84/58 (67) 100 01/30/20 18:41 107 25 50 01/30/20 18:00 99 25 93/54 (67) 100 01/30/20 17:00 100 23 93/55 (68) 100 01/30/20 16:00 99.2 99 26 87/56 (66) 100 01/30/20 16:00 99 01/30/20 16:00 Mechanical Ventilator 01/30/20 16:00 50 01/30/20 15:28 101 24 70 01/30/20 15:00 98 24 93/57 (69) 100 01/30/20 14:00 98 25 90/57 (68) 100 01/30/20 13:00 97 23 86/55 (65) 100 01/30/20 12:00 93 01/30/20 12:00 98.8 96 20 92/58 (69) 100 01/30/20 12:00 Mechanical Ventilator 01/30/20 11:02 95 30 70 01/30/20 11:00 97 20 91/58 (69) 100 01/30/20 10:00 97 22 90/60 (70) 100 01/30/20 10:00 50 01/30/20 09:00 104 25 102/62 (75) 100 Intake and Output 01/30/20 01/31/20 19:00 07:00 Intake Total 1090.0 ml 1100 ml Output Total 620 ml 370 ml Balance 470.0 ml 730 ml Free Water 60 ml IV Total 770.0 ml 660 ml Tube Feeding 260 ml 440 ml Output Urine Total 420 ml 220 ml Stool Total 200 ml 150 ml General Appearance: no acute distress HEENT: normocephalic Respiratory: chest wall non-tender, lungs clear Cardiovascular: normal peripheral pulses, normal rate Abdomen: normal bowel sounds Laboratory Tests 01/30/20 08:50: Sodium Level 145, Potassium Level 3.1L, Chloride Level 113H, Carbon Dioxide Level 21, Blood Urea Nitrogen 11, Creatinine 0.9, Estimat Glomerular Filtration Rate > 60, Glucose Level 123H, Calcium Level 7.9L, Total Bilirubin 0.8, Aspartate Amino Transf (AST/SGOT) 55H, Alanine Aminotransferase (ALT/SGPT) 24, Alkaline Phosphatase 224H, Total Protein 5.6L, Albumin 1.9L, Globulin 3.7, Albumin/Globulin Ratio 0.5L 01/31/20 03:45: Sodium Level 141, Potassium Level 3.1L, Chloride Level 109H, Carbon Dioxide Level 23, Blood Urea Nitrogen 13, Creatinine 0.9, Estimat Glomerular Filtration Rate > 60, Glucose Level 123H, Calcium Level 7.5L, Total Bilirubin 0.5, Aspartate Amino Transf (AST/SGOT) 30, Alanine Aminotransferase (ALT/SGPT) 24, Alkaline Phosphatase 226H, Total Protein 5.5L, Albumin 1.7L, Globulin 3.8, Albumin/Globulin Ratio 0.4L, White Blood Count 8.4#, Red Blood Count 2.91L, Hemoglobin 8.1L, Hematocrit 26.5L, Mean Corpuscular Volume 91, Mean Corpuscular Hemoglobin 28.0, Mean Corpuscular Hemoglobin Concent 30.7L, Red Cell Distribution Width 19.8H, Platelet Count 258, Mean Platelet Volume 6.6, Neutrophils (%) (Auto) , Lymphocytes (%) (Auto) , Monocytes (%) (Auto) , Eosinophils (%) (Auto) , Basophils (%) (Auto) , Neutrophils % (Manual) [Pending], Lymphocytes % (Manual) [Pending], Platelet Estimate [Pending], Platelet Morphology [Pending], Uric Acid 4.6, Phosphorus Level 1.4L, Magnesium Level 1.6L, C-Reactive Protein, Quantitative 25.5H, Pro-B-Type Natriuretic Peptide 2558H Current Medications Medications (Trade) Dose Ordered Sig/Jesse Route PRN Reason Start Time Stop Time Status Last Admin Dose Admin Acetaminophen (Tylenol) 650 mg Q4H PRN ORAL PRNH/TEMP 01/05/20 20:15 02/04/20 20:14 01/12/20 03:10 Bisacodyl (Dulcolax) 10 mg DAILY PRN RECTAL Constipation 01/05/20 20:15 04/04/20 20:14 Chlorhexidine Gluconate (Navya-Hex 2%) 1 applic DAILY@2000 TOPIC 01/11/20 20:00 04/10/20 19:59 01/30/20 20:22 Dextrose (Dextrose 50%) 25 ml Q30M PRN IV Hypoglycemia 01/05/20 20:15 04/04/20 20:14 01/24/20 23:53 Dextrose (Dextrose 50%) 50 ml Q30M PRN IV Hypoglycemia 01/05/20 20:15 04/04/20 20:14 Dextrose/Sodium Chloride 1,000 ml @ 60 mls/hr [id number] IV 01/24/20 13:30 02/23/20 13:29 01/31/20 00:00 Lansoprazole (Prevacid) 30 mg Q12HR NG 01/28/20 21:00 02/27/20 20:59 01/30/20 20:23 Linaclotide (Linzess) 290 mcg BEFORE BREAKFAST ORAL 01/10/20 06:30 04/09/20 06:29 01/31/20 05:56 Loperamide HCl (Imodium) 2 mg Q6H PRN NG Diarrhea 01/27/20 15:45 02/26/20 15:44 01/27/20 17:58 Metoclopramide HCl (Reglan) 10 mg EVERY 6 HOURS NG 01/19/20 12:00 02/18/20 11:59 01/31/20 05:56 Metoclopramide HCl (Reglan) 10 mg Q6H PRN IVP Nausea & Vomiting 01/16/20 13:00 02/15/20 12:59 Midodrine (Pro-Amatine) 10 mg Q8HR NG 01/20/20 22:00 04/13/20 17:59 01/31/20 05:56 Norepinephrine Bitartrate 250 ml @ 7.5 mls/hr Q24H IV 01/30/20 00:30 02/02/20 00:23 01/30/20 00:35 Ondansetron HCl (Zofran) 4 mg Q6H PRN IVP Nausea & Vomiting 01/10/20 06:30 02/09/20 06:29 Piperacillin Sod/ Tazobactam Sod 3.375 gm/Sodium Chloride 110 ml @ 27.5 mls/hr EVERY 8 HOURS IVPB 01/30/20 14:00 02/04/20 13:59 01/31/20 05:56 Polyethylene Glycol (Miralax) 17 gm BEDTIME NG 01/11/20 21:00 02/08/20 20:59 01/29/20 20:39 Sennosides (Senokot) 8.6 mg QHS NG 01/11/20 21:00 02/04/20 20:59 01/29/20 20:39 Vitamin D (Vitamin D) 3,000 intlu DAILY GT 01/19/20 12:00 02/18/20 11:59 01/30/20 08:41 Assessment/Plan Assessment/Plan IMPRESSION: 1. Severe metabolic acidosis. Corrected; now has combined respiratory and metabolic alkalosis 2. Respiratory failure; now reintubated 3. Diarrhea. Resolved 4. Acute renal failure. Nephrology following; 5. Anemia; DISCUSSION: EGD and PEG postponed Remains obtunded Intubated overnight Poor prognosis Recommend comfort care Daxa Infante Omar Syed MD Jan 31, 2020 08:31
[2020-01-31] MEDS: Vitamin D 1000 IU Tab GT SCH (10:01)
--- NOTE | 2020-01-31 10:21 | Nephrology Progress Note ---
Assessment/Plan Problem List: (1) ARF (acute renal failure) (2) Hypernatremia (3) Hypovolemic shock (4) Altered level of consciousness (5) Hypercalcemia (6) Hyperuricemia (7) Pelvic mass Assessment: Prostate cancer Assessment Acute renal failure Possible underlying chronic kidney failure Severe dehydration Hypernatremia indicative of severe water deficit Severe hyperuricemia, partly due to dehydration and renal failure Acute metabolic and toxic encephalopathy Mild, malnutrition Anemia Lactic acid, possible sepsis Hypercalcemia Plan January 30: Patient remains intubated. On no pressors. Abnormal electrolyte addressed. Discussed with RN. Apparently due for PEG insertion tomorrow. Continue per consultants. January 29: Patient was coded late last night. Now in ICU intubated. Was on pressors for a short period of time. Is off pressors now. Labs reviewed. Abnormal electrolyte addressed. Continue per consultants. January 28: Labs reviewed. Abnormal electrolyte addressed. Continue per consultants. January 27: Labs reviewed. Abnormal electrolyte addressed. Low potassium low phosphorus and low magnesium replaced. Continue per consultants. January 26: No labs drawn today. Status quo. Continue per consultants. Will check renal parameters tomorrow. January 25: Renal parameters stable. On Venturi mask. Continue per current management. January 24: Renal parameters stable. On Venturi mask. Discussed with RN. Due for PEG insertion today. January 23: Stable from renal standpoint of view. On Venturi mask. Low ma gnesium addressed. Continue per consultants. January 22: Patient off pressors. Patient extubated. Labs reviewed. Renal parameters are stable. January 21: Patient on low-dose pressors. Remains hypotensive. Renal parameters stable. Weaning trial in process. Mental status remains poor. January 20: Patient in ICU. Intubated. Full code. Has advanced prostate cancer. On IV Lasix drip. Low magnesium and low phosphorus and low potassium noted and addressed. Continue per consultants. January 19: Patient in ICU. Intubated. Was coded yesterday. Labs reviewed. Medication list reviewed and adjusted. Continue per consultants. Patient full code. Prognosis poor. PSA over 2700 January 18: Labs reviewed. IV fluid discontinued. IV calcium dose decreased. Midodrine dose decreased. Reglan and Protonix changed to GT route. Vitamin D initiated. Continue to monitor renal parameters and calcium level. January 17: Labs reviewed. Abnormal electrolyte addressed. Continue per consu ltants. January 16: Patient now in telemetry. Labs pending. Continue to monitor renal parameters. Continue per consultants. January 15: Still in ICU. Doing well post extubation. Renal parameters improving. Not requiring any more dialysis treatment after the first dialysis treatment. Medications reviewed. Continue per consultants. January 14: Remains in ICU. Tolerating extubation. Labs reviewed. Abnormal electrolytes addressed. Serum creatinine lowering. Continue per current management. Stop Phos binders. Increase calcium IV. January 13: In ICU. Now extubated. Only dialyzed once. Urine output maintained. Serum creatinine down to 2.5. Patient has NG tube. Continue to monitor renal parameters. Continue per consultants. Abnormal electrolytes addressed. January 12: Remains in ICU. Intubated. Transfused yesterday. Abnormal electrolytes addressed. Dialyzed once January 10. Serum creatinine stable. Will adjust IV fluid. Monitor renal parameters. Dialysis as needed. Calcium gluconate IV ordered. Ionized calcium level ordered with tomorrow's labs. January 11: Patient in ICU. Intubated. On Levophed. Hemoglobin low. Due for transfusion. Electrolyte abnormalities noted and addressed. Patient was dialyzed yesterday. Will check lab tomorrow. Dialysis as needed. Discussed with SELIN Srivastava. January 10: Patient is doing poorly. Blood pressure low. ABG abnormal with metabolic acidosis. IV sodium bicarb given. Serum creatinine reno. Patient has acute renal failure. Nontunneled dialysis catheter replacement ordered.. Patient need life saving dialysis treatment SRINIVAS. January 09: Labs reviewed. IV D5 and a half with sodium bicarb initiated. Serum creatinine higher. Continue to monitor renal parameters. NG feeding was changed to Nepro. Patient remains full code. Poor prognosis. January 08: Labs reviewed. IV D5W discontinued. 500 cc 3% saline ordered. NG tube for feeding and for medications. Allopurinol dose increased. Continue to monitor renal parameters serum calcium and phosphorus. January 07: Labs reviewed. Serum calcium remains elevated. Uric acid still elevated. Will give pamidronate 60 mg IV piggyback once for hypercalcemia. Continue to monitor renal parameters. Continue D5W 150 cc an hour. Start Bicitra 30 cc p.o. every 6 hours. Add allopurinol D5W IV hydration Albumin bolus N.p.o. until able to take p.o. Antibiotics Monitor renal parameters monitor calcium, monitor uric acid Subjective ROS Limited/Unobtainable: Yes Objective Objective Last 24 Hour Vital Signs Date Time Temp Pulse Resp B/P (MAP) Pulse Ox O2 Delivery O2 Flow Rate FiO2 01/31/20 07:53 96 26 50 01/31/20 07:00 99.8 94 26 118/68 (85) 100 01/31/20 06:30 98 26 126/71 (89) 100 01/31/20 06:00 103 26 114/68 (83) 100 01/31/20 05:30 103 27 115/67 (83) 100 01/31/20 05:00 105 28 109/71 (84) 100 01/31/20 04:30 105 28 113/70 (84) 100 01/31/20 04:00 108 01/31/20 04:00 Mechanical Ventilator 01/31/20 04:00 108 28 118/77 (91) 100 01/31/20 04:00 50 01/31/20 03:30 106 29 114/69 (84) 01/31/20 03:00 105 27 121/75 (90) 100 01/31/20 02:44 104 26 50 01/31/20 02:30 105 28 102/68 (79) 100 01/31/20 02:00 104 26 113/66 (82) 100 01/31/20 01:30 104 28 96/61 (73) 100 01/31/20 01:00 105 27 97/62 (74) 100 01/31/20 00:30 101/62 01/31/20 00:30 103 28 99/62 (74) 100 01/31/20 00:00 Mechanical Ventilator 01/31/20 00:00 99.5 103 27 101/62 (75) 100 01/30/20 23:30 104 28 100/66 (77) 100 01/30/20 23:00 104 28 100/64 (76) 100 01/30/20 22:52 103 27 50 01/30/20 22:30 108 27 99/67 (78) 100 01/30/20 22:00 107 28 98/60 (73) 100 01/30/20 21:30 107 28 97/60 (72) 100 01/30/20 21:00 105 29 98/67 (77) 100 01/30/20 20:30 105 28 95/60 (72) 100 01/30/20 20:00 104 01/30/20 20:00 99.0 104 27 100/62 (75) 100 01/30/20 20:00 50 01/30/20 20:00 Mechanical Ventilator 01/30/20 19:30 106 27 94/59 (71) 100 01/30/20 19:00 106 24 84/58 (67) 100 01/30/20 18:41 107 25 50 01/30/20 18:00 99 25 93/54 (67) 100 01/30/20 17:00 100 23 93/55 (68) 100 01/30/20 16:00 99.2 99 26 87/56 (66) 100 01/30/20 16:00 99 01/30/20 16:00 Mechanical Ventilator 01/30/20 16:00 50 01/30/20 15:28 101 24 70 01/30/20 15:00 98 24 93/57 (69) 100 01/30/20 14:00 98 25 90/57 (68) 100 01/30/20 13:00 97 23 86/55 (65) 100 01/30/20 12:00 93 01/30/20 12:00 98.8 96 20 92/58 (69) 100 01/30/20 12:00 Mechanical Ventilator 01/30/20 11:02 95 30 70 01/30/20 11:00 97 20 91/58 (69) 100 Intake and Output 01/30/20 01/31/20 19:00 07:00 Intake Total 1090.0 ml 1100 ml Output Total 620 ml 370 ml Balance 470.0 ml 730 ml Free Water 60 ml IV Total 770.0 ml 660 ml Tube Feeding 260 ml 440 ml Output Urine Total 420 ml 220 ml Stool Total 200 ml 150 ml Current Medications Medications (Trade) Dose Ordered Sig/Jesse Route PRN Reason Start Time Stop Time Status Last Admin Dose Admin Acetaminophen (Tylenol) 650 mg Q4H PRN ORAL PRNH/TEMP 01/05/20 20:15 02/04/20 20:14 01/12/20 03:10 Bisacodyl (Dulcolax) 10 mg DAILY PRN RECTAL Constipation 01/05/20 20:15 04/04/20 20:14 Chlorhexidine Gluconate (Navya-Hex 2%) 1 applic DAILY@1999 TOPIC 01/11/20 20:00 04/10/20 19:59 01/30/20 20:22 Dextrose (Dextrose 50%) 25 ml Q30M PRN IV Hypoglycemia 01/05/20 20:15 04/04/20 20:14 01/24/20 23:53 Dextrose (Dextrose 50%) 50 ml Q30M PRN IV Hypoglycemia 01/05/20 20:15 04/04/20 20:14 Dextrose/Sodium Chloride 1,000 ml @ 60 mls/hr [id number] IV 01/24/20 13:30 02/23/20 13:29 01/31/20 00:00 Lansoprazole (Prevacid) 30 mg Q12HR NG 01/28/20 21:00 02/27/20 20:59 01/31/20 10:01 Linaclotide (Linzess) 290 mcg BEFORE BREAKFAST ORAL 01/10/20 06:30 04/09/20 06:29 01/31/20 05:56 Loperamide HCl (Imodium) 2 mg Q6H PRN NG Diarrhea 01/27/20 15:45 02/26/20 15:44 01/27/20 17:58 Metoclopramide HCl (Reglan) 10 mg EVERY 6 HOURS NG 01/19/20 12:00 02/18/20 11:59 01/31/20 05:56 Metoclopramide HCl (Reglan) 10 mg Q6H PRN IVP Nausea & Vomiting 01/16/20 13:00 02/15/20 12:59 Midodrine (Pro-Amatine) 10 mg Q8HR NG 01/20/20 22:00 04/13/20 17:59 01/31/20 05:56 Norepinephrine Bitartrate 250 ml @ 7.5 mls/hr Q24H IV 01/30/20 00:30 02/02/20 00:23 01/30/20 00:35 Ondansetron HCl (Zofran) 4 mg Q6H PRN IVP Nausea & Vomiting 01/10/20 06:30 02/09/20 06:29 Piperacillin Sod/ Tazobactam Sod 3.375 gm/Sodium Chloride 110 ml @ 27.5 mls/hr EVERY 8 HOURS IVPB 01/30/20 14:00 02/04/20 13:59 01/31/20 05:56 Polyethylene Glycol (Miralax) 17 gm BEDTIME NG 01/11/20 21:00 02/08/20 20:59 01/29/20 20:39 Potassium Phosphate 250 ml @ 62.5 mls/hr Q4H IVPB 01/31/20 11:00 01/31/20 18:59 Sennosides (Senokot) 8.6 mg QHS NG 01/11/20 21:00 02/04/20 20:59 01/29/20 20:39 Vitamin D (Vitamin D) 3,000 intlu DAILY GT 01/19/20 12:00 02/18/20 11:59 01/31/20 10:01 Laboratory Tests 01/31/20 03:45: White Blood Count 8.4#, Red Blood Count 2.91L, Hemoglobin 8.1L, Hematocrit 26.5L , Mean Corpuscular Volume 91, Mean Corpuscular Hemoglobin 28.0, Mean Corpuscular Hemoglobin Concent 30.7L, Red Cell Distribution Width 19.8H, Platelet Count 258, Mean Platelet Volume 6.6, Neutrophils (%) (Auto) , Lymphocytes (%) (Auto) , Monocytes (%) (Auto) , Eosinophils (%) (Auto) , Basophils (%) (Auto) , Neutrophils % (Manual) [Pending], Lymphocytes % (Manual) [Pending], Platelet Estimate [Pending], Platelet Morphology [Pending], Sodium Level 141, Potassium Level 3.1L, Chloride Level 109H, Carbon Dioxide Level 23, Blood Urea Nitrogen 13, Creatinine 0.9, Estimat Glomerular Filtration Rate > 60, Glucose Level 123H, Uric Acid 4.6, Calcium Level 7.5L, Phosphorus Level 1.4L, Magnesium Level 1.6L, Total Bilirubin 0.5, Aspartate Amino Transf (AST/SGOT) 30, Alanine Aminotransferase (ALT/SGPT) 24, Alkaline Phosphatase 226H, C-Reactive Protein, Quantitative 25.5H, Pro-B-Type Natriuretic Peptide 2558H, Total Protein 5.5L, Albumin 1.7L, Globulin 3.8, Albumin/Globulin Ratio 0.4L Height (Feet): 5 Height (Inches): 9.00 Weight (Pounds): 149 General Appearance: no apparent distress EENT: other - Intubated on ventilator Cardiovascular: tachycardia Respiratory/Chest: decreased breath sounds Abdomen: distended Fouladian,Dhiraj MD Jan 31, 2020 10:21
--- NOTE | 2020-01-31 11:05 | Cardiac Electrophysiology PN ---
Assessment/Plan Assessment/Plan 1. Altered mental status due to severe dehydration in view of sodium of 160 and acute renal failure. On IV fluids and IV antibiotics. Ruled out for [place]. 2. Septic shock, back on levophed overnight and on iv Abx On Midodrine 10 tid 3. History of CVA, off Plavix in view of hematuria. 4. Respiratory failure, Extubated 01/22 and reintubated 01/29/20 Likely need tracheostomy 5. Diabetes. 6. Acute renal failure. Cr 4.2. Had HD once only on 01/11/20. No more HD needed and Cr 1.2 7. Hematuria 8. Anemia with Hb 5.8 and coffee ground emesis. FU Dr Bueno 9. Shock liver with increase AST>2000 10. Metastatic prostate cancer -- w psa 2741 with a Large pelvic mass involving the prostate, bladder, seminal vesicles, presumably representing prostatic malignancy Severe right and moderate left hydronephrosis and bilateral hydroureter, due to ureteral obstruction by the above mass 11. Dysphagia, NGT feeding. PEG pending tomorrow KARLO RN and Dr Biswas Subjective Subjective Coded 01/19 for respiratory failure followed by bradycardia and PEA. Extubated 01/23/20. PEG yesterday cancelled due to respiratory issue Had [employer] and then had asystole and was intubated and started on Levophed. Now off Levo and off sedation and no restraints. PEG placement pending tomorrow Objective Last 24 Hour Vital Signs Date Time Temp Pulse Resp B/P (MAP) Pulse Ox O2 Delivery O2 Flow Rate FiO2 01/31/20 10:00 98 26 100/67 (78) 100 01/31/20 09:00 96 25 97/59 (72) 100 01/31/20 08:00 Mechanical Ventilator 01/31/20 08:00 50 01/31/20 08:00 98.7 98 26 108/68 (81) 100 01/31/20 07:53 96 26 50 01/31/20 07:00 99.8 94 26 118/68 (85) 100 01/31/20 06:30 98 26 126/71 (89) 100 01/31/20 06:00 103 26 114/68 (83) 100 01/31/20 05:30 103 27 115/67 (83) 100 01/31/20 05:00 105 28 109/71 (84) 100 01/31/20 04:30 105 28 113/70 (84) 100 01/31/20 04:00 108 01/31/20 04:00 Mechanical Ventilator 01/31/20 04:00 108 28 118/77 (91) 100 01/31/20 04:00 50 01/31/20 03:30 106 29 114/69 (84) 01/31/20 03:00 105 27 121/75 (90) 100 01/31/20 02:44 104 26 50 01/31/20 02:30 105 28 102/68 (79) 100 01/31/20 02:00 104 26 113/66 (82) 100 01/31/20 01:30 104 28 96/61 (73) 100 01/31/20 01:00 105 27 97/62 (74) 100 01/31/20 00:30 101/62 01/31/20 00:30 103 28 99/62 (74) 100 01/31/20 00:00 Mechanical Ventilator 01/31/20 00:00 99.5 103 27 101/62 (75) 100 01/30/20 23:30 104 28 100/66 (77) 100 01/30/20 23:00 104 28 100/64 (76) 100 01/30/20 22:52 103 27 50 01/30/20 22:30 108 27 99/67 (78) 100 01/30/20 22:00 107 28 98/60 (73) 100 01/30/20 21:30 107 28 97/60 (72) 100 01/30/20 21:00 105 29 98/67 (77) 100 01/30/20 20:30 105 28 95/60 (72) 100 01/30/20 20:00 104 01/30/20 20:00 99.0 104 27 100/62 (75) 100 01/30/20 20:00 50 01/30/20 20:00 Mechanical Ventilator 01/30/20 19:30 106 27 94/59 (71) 100 01/30/20 19:00 106 24 84/58 (67) 100 01/30/20 18:41 107 25 50 01/30/20 18:00 99 25 93/54 (67) 100 01/30/20 17:00 100 23 93/55 (68) 100 11/25/20 16:00 99.2 99 26 87/56 (66) 100 01/30/20 16:00 99 01/30/20 16:00 Mechanical Ventilator 01/30/20 16:00 50 01/30/20 15:28 101 24 70 01/30/20 15:00 98 24 93/57 (69) 100 01/30/20 14:00 98 25 90/57 (68) 100 01/30/20 13:00 97 23 86/55 (65) 100 01/30/20 12:00 93 01/30/20 12:00 98.8 96 20 92/58 (69) 100 01/30/20 12:00 Mechanical Ventilator Intake and Output 01/30/20 01/31/20 19:00 07:00 Intake Total 1090.0 ml 1100 ml Output Total 620 ml 370 ml Balance 470.0 ml 730 ml Free Water 60 ml IV Total 770.0 ml 660 ml Tube Feeding 260 ml 440 ml Output Urine Total 420 ml 220 ml Stool Total 200 ml 150 ml Laboratory Tests Test 01/31/20 03:45 White Blood Count 8.4 K/UL (4.8-10.8) # Red Blood Count 2.91 M/UL (4.70-6.10) L Hemoglobin 8.1 G/DL (14.2-18.0) L Hematocrit 26.5 % (42.0-52.0) L Mean Corpuscular Volume 91 FL (80-99) Mean Corpuscular Hemoglobin 28.0 PG (27.0-31.0) Mean Corpuscular Hemoglobin Concent 30.7 G/DL (32.0-36.0) L Red Cell Distribution Width 19.8 % (11.6-14.8) H Platelet Count 258 K/UL (150-450) Mean Platelet Volume 6.6 FL (6.5-10.1) Neutrophils (%) (Auto) % (45.0-75.0) Lymphocytes (%) (Auto) % (20.0-45.0) Monocytes (%) (Auto) % (1.0-10.0) Eosinophils (%) (Auto) % (0.0-3.0) Basophils (%) (Auto) % (0.0-2.0) Differential Total Cells Counted 100 Neutrophils % (Manual) 85 % (45-75) H Lymphocytes % (Manual) 10 % (20-45) L Monocytes % (Manual) 5 % (1-10) Eosinophils % (Manual) 0 % (0-3) Basophils % (Manual) 0 % (0-2) Band Neutrophils 0 % (0-8) Platelet Estimate Adequate Platelet Morphology Normal Polychromasia 1+ Hypochromasia 1+ Anisocytosis 2+ Sodium Level 141 MMOL/L (136-145) Potassium Level 3.1 MMOL/L (3.5-5.1) L Chloride Level 109 MMOL/L (98-107) H Carbon Dioxide Level 23 MMOL/L (21-32) Blood Urea Nitrogen 13 mg/dL (7-18) Creatinine 0.9 MG/DL (0.55-1.30) Estimat Glomerular Filtration Rate > 60 mL/min (>60) Glucose Level 123 MG/DL (74-106) H Uric Acid 4.6 MG/DL (2.6-7.2) Calcium Level 7.5 MG/DL (8.5-10.1) L Phosphorus Level 1.4 MG/DL (2.5-4.9) L Magnesium Level 1.6 MG/DL (1.8-2.4) L Total Bilirubin 0.5 MG/DL (0.2-1.0) Aspartate Amino Transf (AST/SGOT) 30 U/L (15-37) Alanine Aminotransferase (ALT/SGPT) 24 U/L (12-78) Alkaline Phosphatase 226 U/L (46-116) H C-Reactive Protein, Quantitative 25.5 mg/dL (0.00-0.90) H Pro-B-Type Natriuretic Peptide 2558 pg/mL (0-125) H Total Protein 5.5 G/DL (6.4-8.2) L Albumin 1.7 G/DL (3.4-5.0) L Globulin 3.8 g/dL Albumin/Globulin Ratio 0.4 (1.0-2.7) L Objective HEAD AND NECK: NGT in place. Orally intubated LUNGS: Coarse rhonchi. CARDIOVASCULAR: Regular S1 and S2 with no gallop. ABDOMEN: Soft. EXTREMITIES: No pitting edema. Kevin Lopez MD Jan 31, 2020 11:05
[2020-01-31] MEDS: Potassium Phosphate 15mm/250ml 250 ML IVPB SCH ×2 (11:06→14:08)
--- NOTE | 2020-01-31 11:36 | Surgery Progress Note ---
Surgery Progress Note Subjective Procedure Performed Right femoral temporary hemodialysis catheter insertion Symptoms: worse Additional Comments ill appearig on support Objective Last 24 Hour Vital Signs Date Time Temp Pulse Resp B/P (MAP) Pulse Ox O2 Delivery O2 Flow Rate FiO2 01/31/20 11:00 95 25 97/62 (74) 100 01/31/20 10:00 98 26 100/67 (78) 100 01/31/20 09:00 96 25 97/59 (72) 100 01/31/20 08:00 95 01/31/20 08:00 Mechanical Ventilator 01/31/20 08:00 50 01/31/20 08:00 98.7 98 26 108/68 (81) 100 01/31/20 07:53 96 26 50 01/31/20 07:00 99.8 94 26 118/68 (85) 100 01/31/20 06:30 98 26 126/71 (89) 100 01/31/20 06:00 103 26 114/68 (83) 100 01/31/20 05:30 103 27 115/67 (83) 100 01/31/20 05:00 105 28 109/71 (84) 100 01/31/20 04:30 105 28 113/70 (84) 100 01/31/20 04:00 108 01/31/20 04:00 Mechanical Ventilator 01/31/20 04:00 108 28 118/77 (91) 100 01/31/20 04:00 50 01/31/20 03:30 106 29 114/69 (84) 01/31/20 03:00 105 27 121/75 (90) 100 01/31/20 02:44 104 26 50 01/31/20 02:30 105 28 102/68 (79) 100 01/31/20 02:00 104 26 113/66 (82) 100 01/31/20 01:30 104 28 96/61 (73) 100 01/31/20 01:00 105 27 97/62 (74) 100 01/31/20 00:30 101/62 01/31/20 00:30 103 28 99/62 (74) 100 01/31/20 00:00 Mechanical Ventilator 01/31/20 00:00 99.5 103 27 101/62 (75) 100 01/30/20 23:30 104 28 100/66 (77) 100 01/30/20 23:00 104 28 100/64 (76) 100 01/30/20 22:52 103 27 50 01/30/20 22:30 108 27 99/67 (78) 100 01/30/20 22:00 107 28 98/60 (73) 100 01/30/20 21:30 107 28 97/60 (72) 100 01/30/20 21:00 105 29 98/67 (77) 100 01/30/20 20:30 105 28 95/60 (72) 100 01/30/20 20:00 104 01/30/20 20:00 99.0 104 27 100/62 (75) 100 01/30/20 20:00 50 01/30/20 20:00 Mechanical Ventilator 01/30/20 19:30 106 27 94/59 (71) 100 01/30/20 19:00 106 24 84/58 (67) 100 01/30/20 18:41 107 25 50 01/30/20 18:00 99 25 93/54 (67) 100 01/30/20 17:00 100 23 93/55 (68) 100 01/30/20 16:00 99.2 99 26 87/56 (66) 100 01/30/20 16:00 99 01/30/20 16:00 Mechanical Ventilator 01/30/20 16:00 50 01/30/20 15:28 101 24 70 01/30/20 15:00 98 24 93/57 (69) 100 01/30/20 14:00 98 25 90/57 (68) 100 01/30/20 13:00 97 23 86/55 (65) 100 01/30/20 12:00 93 01/30/20 12:00 98.8 96 20 92/58 (69) 100 01/30/20 12:00 Mechanical Ventilator I&O Intake and Output 01/30/20 01/31/20 19:00 07:00 Intake Total 1090.0 ml 1100 ml Output Total 620 ml 370 ml Balance 470.0 ml 730 ml Free Water 60 ml IV Total 770.0 ml 660 ml Tube Feeding 260 ml 440 ml Output Urine Total 420 ml 220 ml Stool Total 200 ml 150 ml Cardiovascular: RSR Respiratory: decreased breath sounds Abdomen: non-tender, non-distended, decreased bowel sounds Extremities: no tenderness, no cyanosis Laboratory Tests Test 01/31/20 03:45 White Blood Count 8.4 K/UL (4.8-10.8) # Red Blood Count 2.91 M/UL (4.70-6.10) L Hemoglobin 8.1 G/DL (14.2-18.0) L Hematocrit 26.5 % (42.0-52.0) L Mean Corpuscular Volume 91 FL (80-99) Mean Corpuscular Hemoglobin 28.0 PG (27.0-31.0) Mean Corpuscular Hemoglobin Concent 30.7 G/DL (32.0-36.0) L Red Cell Distribution Width 19.8 % (11.6-14.8) H Platelet Count 258 K/UL (150-450) Mean Platelet Volume 6.6 FL (6.5-10.1) Neutrophils (%) (Auto) % (45.0-75.0) Lymphocytes (%) (Auto) % (20.0-45.0) Monocytes (%) (Auto) % (1.0-10.0) Eosinophils (%) (Auto) % (0.0-3.0) Basophils (%) (Auto) % (0.0-2.0) Differential Total Cells Counted 100 Neutrophils % (Manual) 85 % (45-75) H Lymphocytes % (Manual) 10 % (20-45) L Monocytes % (Manual) 5 % (1-10) Eosinophils % (Manual) 0 % (0-3) Basophils % (Manual) 0 % (0-2) Band Neutrophils 0 % (0-8) Platelet Estimate Adequate Platelet Morphology Normal Polychromasia 1+ Hypochromasia 1+ Anisocytosis 2+ Sodium Level 141 MMOL/L (136-145) Potassium Level 3.1 MMOL/L (3.5-5.1) L Chloride Level 109 MMOL/L (98-107) H Carbon Dioxide Level 23 MMOL/L (21-32) Blood Urea Nitrogen 13 mg/dL (7-18) Creatinine 0.9 MG/DL (0.55-1.30) Estimat Glomerular Filtration Rate > 60 mL/min (>60) Glucose Level 123 MG/DL (74-106) H Uric Acid 4.6 MG/DL (2.6-7.2) Calcium Level 7.5 MG/DL (8.5-10.1) L Phosphorus Level 1.4 MG/DL (2.5-4.9) L Magnesium Level 1.6 MG/DL (1.8-2.4) L Total Bilirubin 0.5 MG/DL (0.2-1.0) Aspartate Amino Transf (AST/SGOT) 30 U/L (15-37) Alanine Aminotransferase (ALT/SGPT) 24 U/L (12-78) Alkaline Phosphatase 226 U/L (46-116) H C-Reactive Protein, Quantitative 25.5 mg/dL (0.00-0.90) H Pro-B-Type Natriuretic Peptide 2558 pg/mL (0-125) H Total Protein 5.5 G/DL (6.4-8.2) L Albumin 1.7 G/DL (3.4-5.0) L Globulin 3.8 g/dL Albumin/Globulin Ratio 0.4 (1.0-2.7) L Plan Problems: (1) Altered level of consciousness (2) Hypovolemic shock Assessment & Plan: resuscitation extubated monitor respiratory keep hob elevated supplemental O2 coded intubated in icu prognosis guarded ?code status change ?trach Gallbladder demonstrates sludge. No stones, wall thickening, nor pericholecystic fluid. Patient unable to report Wilson's sign Common bile duct measures 3 mm in diameter. No intrahepatic biliary ductal dilatation. Liver demonstrates coarsened echogenicity and surface nodularity. It demonstrates multiple cysts. Portal vein and hepatic veins are patent. The pancreas demonstrates 3 hypoechoic lesions in the head and body, measuring approximately 5 mm in diameter each. Spleen is unremarkable, poorly visualized. Left kidney measures 11.4 cm in length. Right kidney measures 11.3 cm length. Both kidneys demonstrate normal echogenicity. There is severe right and moderate left hydronephrosis. Echogenic foci are seen in the left renal sinus and collecting system. Bladder is empty, contains a Mathew catheter. Non-aneurysmal abdominal aorta . There are bilateral pleural effusions Impression: Bilateral right greater than left hydronephrosis, increased since prior study of 03/20/2019. Etiology not demonstrated Empty bladder with a Mathew catheter 3 hypoechoic lesions within the pancreatic head and body, each measuring about 5 mm. Appearance nonspecific. Recommend further evaluation with pancreas protocol MRI Bilateral pleural effusions Echogenic liver, consistent with hepatocellular disease. Surface likely nodularity raises concern for cirrhosis Gallbladder sludge. Negative for dilated bile ducts Probable nonobstructive left intrarenal calculi Multiple hepatic cysts (3) Lactic acid acidosis (4) Hypernatremia (5) Paraplegia (6) Anemia Assessment & Plan: no active bleeding noted no large hematoma dressings okay likely related to heme will monitor transfuse prbc with HD trend labs thank you (7) Diabetes (8) Weak (9) HTN (hypertension) (10) ARF (acute renal failure) (11) Hypercalcemia (12) Hyperuricemia (13) Dehydration (14) UTI (urinary tract infection) (15) Failure to thrive in adult Assessment & Plan: patient identified to have DTI on bilateral heels right with 5cm x 4cm area of dti not open no drainage no signs of infection left with 3cm x 2cm. pillow under leg optifoam dressings nutritional optimization will follow no acute surgery DAILY ESTIMATED NEEDS: Needs based on underweight, suspected wt loss, HD, CRITICAL CARE/ 57.6kg 25-33 kcals/kg 1324-2070 total kcals 1.2-2 g protein/kg 69-115 g total protein 25-30 mL/kg 9271-4366 total fluid mLs NUTRITION DIAGNOSIS: *Increased kcal and pro needs r/t underweight status, suspected significant wt loss as evidenced by pt @ 71% IBW w/ BMI 17.2, underweight per guidelines, w/ suspected signficant wt loss of 30lbs/19% in 10 months. * Swallowing difficulty R/T dysphagia, respiratory status as evidenced by s/p NGT insertion (01/08), now NPO, s/p code blue (01/10), orally intubated. CURRENT TF:NPO ENTERAL NUTRITION RECOMMENDATIONS: WHEN HEMODYNAMICALLY STABLE: Nepro @ 40ml/hr x 24 hrs to provide 960ml, 1728kcal, 77g prot, 698ml free water WHEN HEMODYNAMICALLY STABLE AND MEDICALLY APPROPRIATE TO FEED: -> initiate TF @ 5ml/hr x 6hrs, advance slowly 5ml q 4-6 hrs as tolerated to goal rate -> HOB over 30 degrees/ water flush per MD WITHOUT HEMODYNAMIC STABILITY -> If medically appropriate to feed, rec trophic feeding of Nepro @ 5ml/hr x 24 hrs to maintain gut integrity (16) Pelvic mass Assessment & Plan: invasive pelvic mass likely prostate necrotic nodes likely spread recommend colonoscopy given invasion possible to rectum oncology input thank you There is a large pelvic mass which is cephalad to but inseparable from the prostate. This also is inseparable from the posterior wall of the bladder and there appears to be circumferential bladder wall thickening. This mass also appears to involve the seminal vesicles. This measures approximately 8.8 cm transverse by 10 cm craniocaudad by 7.4 cm AP. The periphery of this mass is very lobulated. The mass may also invade the adjacent rectum. There is bilateral iliac chain lymphadenopathy, with nodes measuring up to 3 cm in diameter. Some of these nodes are very low in attenuation indicating that they are necrotic. There is also retroperitoneal lymphadenopathy. There is severe right and moderate left hydronephrosis and bilateral hydroureter. The dilated ureters terminate at the level of the mass. No intrinsic renal parenchymal abnormality. The pancreas is unremarkable. No findings corresponding to the areas of low-attenuation described on prior sonogram are evident. No pancreatic ductal dilatation is evident. The liver demonstrates multiple cysts. The gallbladder, bile ducts, spleen, adrenals are unremarkable. The bones demonstrate diffuse involvement with multiple mixed osteolytic/osteosclerotic lesions, mostly sclerotic component predominating. There is a right groin dialysis catheter in place, tip at the level of the iliac venous confluence. There is a nasogastric tube,, tip in the stomach. There is a Mathew catheter. There is a rectal tube lying outside the patient with the balloon inflated within the inner gluteal fold. There are bilateral pleural effusions. There is compressive atelectasis of most if not all of both lower lobes. 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 Compressive atelectasis of most of not all of both lower lobes Other findings as noted, including multiple liver cysts Benyamini,Lázaro Jan 31, 2020 11:36
[2020-01-31] MEDS: D5 1/2NS 1,000 ML IV SCH ×2 (17:05)
[2020-01-31] MEDS: Dyna-Hex 2% Top Sol 2oz TOPIC SCH ×2 (17:05→20:12)
[2020-01-31] MEDS: Miralax 17gm pkt NG SCH (20:12)
[2020-01-31] MEDS: Sennosides 8.6mg tab NG SCH (20:13)
[2020-01-31] MEDS ORDERED: Sodium Bicarbonate 50ml Carp ONE (21:22)
--- NOTE | 2020-01-31 21:43 | General Progress Note ---
Subjective ROS Limited/Unobtainable: Yes Allergies: Coded Allergies: No Known Allergies (Unverified , 03/18/19) Objective Last 24 Hour Vital Signs Date Time Temp Pulse Resp B/P (MAP) Pulse Ox O2 Delivery O2 Flow Rate FiO2 01/31/20 21:00 88 22 126/62 (83) 100 01/31/20 20:00 30 01/31/20 20:00 86 01/31/20 20:00 Mechanical Ventilator 01/31/20 20:00 86 23 129/65 (86) 100 01/31/20 19:30 86 22 125/64 (84) 100 01/31/20 19:23 81 25 30 01/31/20 19:00 89 22 116/62 (80) 100 01/31/20 18:00 80/52 01/31/20 18:00 90 24 120/65 (83) 100 01/31/20 17:40 98 26 87/50 (62) 100 01/31/20 17:21 79 24 62/46 (51) 100 01/31/20 17:00 92 24 90/58 (69) 99 01/31/20 16:45 92 23 90/59 (69) 99 01/31/20 16:30 93 24 99/64 (76) 100 01/31/20 16:00 98.7 92 23 93/60 (71) 100 01/31/20 16:00 Mechanical Ventilator 01/31/20 16:00 30 01/31/20 16:00 97 01/31/20 15:30 96 26 94/65 (75) 100 01/31/20 15:29 92 25 30 01/31/20 15:00 94 28 96/65 (75) 100 01/31/20 14:00 104 28 96/60 (72) 100 01/31/20 13:00 103 27 101/63 (76) 100 01/31/20 12:00 98.6 98 26 98/61 (73) 100 01/31/20 12:00 50 01/31/20 12:00 Mechanical Ventilator 01/31/20 12:00 99 01/31/20 11:26 98 27 30 01/31/20 11:00 95 25 97/62 (74) 100 01/31/20 10:00 98 26 100/67 (78) 100 01/31/20 09:00 96 25 97/59 (72) 100 01/31/20 08:00 95 01/31/20 08:00 Mechanical Ventilator 01/31/20 08:00 50 01/31/20 08:00 98.7 98 26 108/68 (81) 100 01/31/20 07:53 96 26 50 01/31/20 07:00 99.8 94 26 118/68 (85) 100 01/31/20 06:30 98 26 126/71 (89) 100 01/31/20 06:00 103 26 114/68 (83) 100 01/31/20 05:30 103 27 115/67 (83) 100 01/31/20 05:00 105 28 109/71 (84) 100 01/31/20 04:30 105 28 113/70 (84) 100 01/31/20 04:00 108 01/31/20 04:00 Mechanical Ventilator 01/31/20 04:00 108 28 118/77 (91) 100 01/31/20 04:00 50 01/31/20 03:30 106 29 114/69 (84) 01/31/20 03:00 105 27 121/75 (90) 100 01/31/20 02:44 104 26 50 01/31/20 02:30 105 28 102/68 (79) 100 01/31/20 02:00 104 26 113/66 (82) 100 01/31/20 01:30 104 28 96/61 (73) 100 01/31/20 01:00 105 27 97/62 (74) 100 01/31/20 00:30 101/62 01/31/20 00:30 103 28 99/62 (74) 100 01/31/20 00:00 Mechanical Ventilator 01/31/20 00:00 99.5 103 27 101/62 (75) 100 01/30/20 23:30 104 28 100/66 (77) 100 01/30/20 23:00 104 28 100/64 (76) 100 01/30/20 22:52 103 27 50 01/30/20 22:30 108 27 99/67 (78) 100 01/30/20 22:00 107 28 98/60 (73) 100 Intake and Output 01/30/20 01/31/20 19:00 07:00 Intake Total 1090.0 ml 1100 ml Output Total 620 ml 370 ml Balance 470.0 ml 730 ml Free Water 60 ml IV Total 770.0 ml 660 ml Tube Feeding 260 ml 440 ml Output Urine Total 420 ml 220 ml Stool Total 200 ml 150 ml Laboratory Tests 01/31/20 03:45: White Blood Count 8.4#, Red Blood Count 2.91L, Hemoglobin 8.1L, Hematocrit 26.5L , Mean Corpuscular Volume 91, Mean Corpuscular Hemoglobin 28.0, Mean Corpuscular Hemoglobin Concent 30.7L, Red Cell Distribution Width 19.8H, Platelet Count 258, Mean Platelet Volume 6.6, Neutrophils (%) (Auto) , Lymphocytes (%) (Auto) , Monocytes (%) (Auto) , Eosinophils (%) (Auto) , Basophils (%) (Auto) , Differential Total Cells Counted 100, Neutrophils % (Manual) 85H, Lymphocytes % (Manual) 10L, Monocytes % (Manual) 5, Eosinophils % (Manual) 0, Basophils % (Manual) 0, Band Neutrophils 0, Platelet Estimate Adequate, Platelet Morphology Normal, Polychromasia 1+, Hypochromasia 1+, Anisocytosis 2+, Sodium Level 141, Potassium Level 3.1L, Chloride Level 109H, Carbon Dioxide Level 23, Blood Urea Nitrogen 13, Creatinine 0.9, Estimat Glomerular Filtration Rate > 60, Glucose Level 123H, Uric Acid 4.6, Calcium Level 7.5L, Phosphorus Level 1.4L, Magnesium Level 1.6L, Total Bilirubin 0.5, Aspartate Amino Transf (AST/SGOT) 30, Alanine Aminotransferase (ALT/SGPT) 24, Alkaline Phosphatase 226H, C-Reactive Protein, Quantitative 25.5H, Pro-B-Type Natriuretic Peptide 2558H, Total Protein 5.5L, Albumin 1.7L, Globulin 3.8, Albumin/Globulin Ratio 0.4L Height (Feet): 5 Height (Inches): 9.00 Weight (Pounds): 149 Assessment/Plan Problem List: (1) Altered level of consciousness ICD Codes: R40.4 - Transient alteration of awareness SNOMED: 8851984 (2) Hypernatremia ICD Codes: E87.0 - Hyperosmolality and hypernatremia SNOMED: 323876859 (3) Paraplegia ICD Codes: G82.20 - Paraplegia, unspecified SNOMED: 56818708 (4) Anemia ICD Codes: D64.9 - Anemia, unspecified SNOMED: 090708144 (5) Diabetes ICD Codes: E11.9 - Type 2 diabetes mellitus without complications SNOMED: 52552877 (6) HTN (hypertension) ICD Codes: I10 - Essential (primary) hypertension SNOMED: 50388188 (7) ARF (acute renal failure) ICD Codes: N17.9 - Acute kidney failure, unspecified SNOMED: 21929047 (8) Dehydration ICD Codes: E86.0 - Dehydration SNOMED: 37885190 (9) UTI (urinary tract infection) ICD Codes: N39.0 - Urinary tract infection, site not specified SNOMED: 12034454 (10) Failure to thrive in adult ICD Codes: R62.7 - Adult failure to thrive SNOMED: 072591708 Status: progressing, unchanged Assessment/Plan: afebrile check lytes check h/h no bleeding azotemia fluids no change htn reviewed chart and labs Juan Diego Ranadll MD Jan 31, 2020 21:43
[2020-02-01] VITALS (32 sets, daily range): BP systolic 97–128; BP diastolic 50–73
[2020-02-01] MEDS: Norepinephrine 4mg/NS Premix 250 ML IV SCH (00:30)
[2020-02-01] MEDS: Midodrine 10mg tab NG SCH ×3 (04:22→21:29)
[2020-02-01] MEDS: Metoclopramide 10mg/10ml Liq NG SCH ×4 (04:22→23:21)
[2020-02-01] MEDS: D5 1/2NS 1,000 ML IV SCH ×2 (05:00→21:00)
[2020-02-01 05:13] LABS: HEMATOCRIT 22.2 % (42.0-52.0); HEMOGLOBIN 7.5 G/DL (14.2-18.0); MEAN CORPUSCULAR VOLUME 83 FL (80-99); PLATELET COUNT 263 K/UL (150-450); RED BLOOD COUNT 2.66 M/UL (4.70-6.10); RED CELL DISTRIBUTION WIDTH 20.6 % (11.6-14.8); WHITE BLOOD COUNT 9.4 K/UL (4.8-10.8)
[2020-02-01] MEDS: Piperacillin/Tazobactam 3.375 GM in NS 110 ML IVPB SCH ×3 (05:20→21:29)
[2020-02-01 05:23] LABS: BLOOD UREA NITROGEN 13 mg/dL (7-18); CARBON DIOXIDE 21 MMOL/L (21-32); CHLORIDE 107 MMOL/L (98-107); SODIUM 140 MMOL/L (136-145)
[2020-02-01] MEDS: Vitamin D 1000 IU Tab GT SCH (07:30)
--- NOTE | 2020-02-01 07:33 | Hematology/Onc Progress Note ---
Assessment/Plan Assessment/Plan Assessment/Recs # Metastatic prostate cancer -- w psa [id number], has a Large pelvic mass as described involving the prostate, bladder, seminal vesicles, presumably representing prostatic malignancy --> CT Evidence of disseminated malignancy, with extensive lymphadenopathy of and evidenc of diffuse osseous metastases Severe right and moderate left hydronephrosis and bilateral hydroureter, due to ureteral obstruction by the above mass --> tumor markers ordered, psa 2741 --> after above reviewed, consider further biopsy of prostate with uro as needed # Pancytopenia with initially Anemia due to underlying chronic medical issues, multifactorial v Gi bleed v malignancy --> Anemia workup has been ordered, rule out gi bleed --> No evidence of hemolysis is noted, peripheral smear has been reviewed. --> Hgb goal >7. Transfuse prn. --> Epogen or iron at this time is not particularly indicated --> Medications have been reviewed --> low threshold for gi evaluation in case has occult + --> hgb 10-->9.7-->9.2->10-->8.6-->7.7-->5-->8.3->9.3->7.8-->8.2-->8.1-->9.3-->9.9->10-> 7.5 --> 11/8 flow cytometry ordered bc of nucleated cells on smear-->neg --> wbc 5-->4-->3.9-->4 --> plt 150-->98-->82-->51->49-->46-->50-->68-->88-->109 --> hep and hiv panel--NEG --> us abd-->shows 3 small lesions, requires further eval --> CT a/p reviewed # Multiple lesions noted in pancreas --> MRI abd ordered--> nondiagnostic --> CT of the abd reviewed # Protein caloric malnutrition --> daily calorie counts --> daily weights --> mirtazapine started # Acute renal failure --> continue on ivfs --> as per renal # Hypokalemia --> replete with K # Severe dehydration --> ivfs ongoing # Hypernatremia indicative of severe water deficit # Severe hyperuricemia, partly due to dehydration and renal failure # Acute metabolic and toxic encephalopathy # Mild, malnutrition # Psych issues per psych # Lactic acid, possible sepsis # Dvt ppx heparin sq->Scds # Comfort care potentially The timing of this note does not necessarily reflect the time of the patient was seen. Greatly appreciate consultation. Subjective Constitutional: Denies: no symptoms, chills, fever, malaise, weakness, other Cardiovascular: Denies: no symptoms, chest pain, edema, irregular heart rate, lightheadedness, palpitations, syncope, other Respiratory: Denies: no symptoms, cough, shortness of breath, SOB with excertion, SOB at rest, sputum, wheezing, other Gastrointestinal/Abdominal: Denies: no symptoms, abdomen distended, abdominal pain, black stools, tarry stools, blood in stool, constipated, diarrhea, difficulty swallowing, nausea, poor appetite, poor fluid intake, rectal bleeding, vomiting, other Neurologic/Psychiatric: Denies: no symptoms, anxiety, depressed, emotional pro blems, headache, numbness, paresthesia, pre-existing deficit, seizure, tingling, tremors, weakness, other Endocrine: Denies: no symptoms, excessive sweating, flushing, intolerance to cold, intolerance to heat, increased hunger, increased thirst, increased urine, unexplained weight gain, unexplained weight loss, other Allergies: Coded Allergies: No Known Allergies (Unverified , 03/18/19) Subjective 01/07 meds noted, no bleeding, hgb 10, no hemolysis, hgb 10.1 01/08 labs reviewed, vi rn, no major events, no bleeding, hgb lower 01/09 labs noted, no bleeding, vi rn, no major changes, plt lower 01/10 did have epistaxis overnight, no bleeding, night sweats, epistaxis better 01/12 icu, remains on vent, levo, no bleeding, meds noted 01/13 remains in icu, no bleeding, on levo, no major changes 01/14 icu, is on 1l, restarints are off, no bleeding, no night sweats 01/15 icu, meds noted, with diarrhea, rectal tube reinserted, on nc 01/16 out of icu, no bleeding, meds reviewed, cbc ad bmp pending 01/17 unable to lay still for the mri, thus ct ordered, vi [facility] 01/19 hgb 6.9, no bleeding, no hemolysis, ct reviewed 01/20 obtunded, meds reviewed, hgb is better, in icu 01/21 obtunded, npo, labs hjave been reviewed, hgb 9.2 01/22 obtunded, in icu, no bleeding, plt 109 01/23 obtunded still icu, on venturimask, meds reviewed, labs noted 01/24 obtunded, in icu, labs reviewed, meds noted, wbc 4.1, plt 133 01/26 is out of the icu, no bleeding, meds noted, labs ordered 01/27 nonverbal, out of icu, on feedigs, no bleeding, labs reviewed 01/28 icu, nv, is on midrinone, linzess, ivf 01/29 icu, off levop, ngt restarted, meds noted 01/30 icu, with large bm, labs reviewed, no f/c, zosyn 01/31 icu, levo is on hold, no bleeding, abx, hgb 7.5 Objective Objective Current Medications Medications (Trade) Dose Ordered Sig/Jesse Route PRN Reason Start Time Stop Time Status Last Admin Dose Admin Acetaminophen (Tylenol) 650 mg Q4H PRN ORAL PRNH/TEMP 01/05/20 20:15 02/04/20 20:14 01/12/20 03:10 Bisacodyl (Dulcolax) 10 mg DAILY PRN RECTAL Constipation 01/05/20 20:15 04/04/20 20:14 Chlorhexidine Gluconate (Navya-Hex 2%) 1 applic DAILY@2000 TOPIC 01/11/20 20:00 04/10/20 19:59 01/31/20 20:12 Dextrose (Dextrose 50%) 25 ml Q30M PRN IV Hypoglycemia 01/05/20 20:15 04/04/20 20:14 01/24/20 23:53 Dextrose (Dextrose 50%) 50 ml Q30M PRN IV Hypoglycemia 01/05/20 20:15 04/04/20 20:14 Dextrose/Sodium Chloride 1,000 ml @ 60 mls/hr [id number] IV 01/24/20 13:30 02/23/20 13:29 02/01/20 05:00 Lansoprazole (Prevacid) 30 mg Q12HR NG 01/28/20 21:00 02/27/20 20:59 01/31/20 20:12 Linaclotide (Linzess) 290 mcg BEFORE BREAKFAST ORAL 01/10/20 06:30 04/09/20 06:29 01/31/20 05:56 Loperamide HCl (Imodium) 2 mg Q6H PRN NG Diarrhea 01/27/20 15:45 02/26/20 15:44 01/27/20 17:58 Metoclopramide HCl (Reglan) 10 mg EVERY 6 HOURS NG 01/19/20 12:00 02/18/20 11:59 01/31/20 18:07 Metoclopramide HCl (Reglan) 10 mg Q6H PRN IVP Nausea & Vomiting 01/16/20 13:00 02/15/20 12:59 Midodrine (Pro-Amatine) 10 mg Q8HR NG 01/20/20 22:00 04/13/20 17:59 01/31/20 21:24 Norepinephrine Bitartrate 250 ml @ 7.5 mls/hr Q24H IV 01/30/20 00:30 02/02/20 00:23 01/31/20 18:00 Ondansetron HCl (Zofran) 4 mg Q6H PRN IVP Nausea & Vomiting 01/10/20 06:30 02/09/20 06:29 Piperacillin Sod/ Tazobactam Sod 3.375 gm/Sodium Chloride 110 ml @ 27.5 mls/hr EVERY 8 HOURS IVPB 01/30/20 14:00 02/04/20 13:59 02/01/20 05:20 Polyethylene Glycol (Miralax) 17 gm BEDTIME NG 01/11/20 21:00 02/08/20 20:59 01/29/20 20:39 Sennosides (Senokot) 8.6 mg QHS NG 01/11/20 21:00 02/04/20 20:59 01/29/20 20:39 Vitamin D (Vitamin D) 3,000 intlu DAILY GT 01/19/20 12:00 02/18/20 11:59 01/31/20 10:01 Last 24 Hour Vital Signs Date Time Temp Pulse Resp B/P (MAP) Pulse Ox O2 Delivery O2 Flow Rate FiO2 02/01/20 07:00 81 17 112/60 (77) 100 02/01/20 06:00 98.3 81 17 112/60 (77) 100 02/01/20 05:00 90 22 111/56 (74) 100 02/01/20 04:00 92 22 112/51 (71) 100 02/01/20 04:00 30 02/01/20 04:00 92 02/01/20 04:00 Mechanical Ventilator 02/01/20 03:16 80 24 30 02/01/20 03:00 92 22 112/51 (71) 100 02/01/20 02:30 85 20 119/58 (78) 100 02/01/20 02:00 85 20 118/58 (78) 100 02/01/20 01:30 79 20 128/58 (81) 100 02/01/20 01:00 82 22 116/50 (72) 100 02/01/20 00:30 93 22 117/56 (76) 100 02/01/20 00:00 Mechanical Ventilator 02/01/20 00:00 96 23 124/62 (82) 100 01/31/20 23:30 89 22 102/52 (69) 100 01/31/20 23:00 80 19 153/73 (99) 100 01/31/20 22:57 82 20 30 01/31/20 22:30 78 21 142/79 (100) 100 01/31/20 22:00 81 21 146/68 (94) 100 01/31/20 21:00 88 22 126/62 (83) 100 01/31/20 20:00 30 01/31/20 20:00 86 01/31/20 20:00 Mechanical Ventilator 01/31/20 20:00 86 23 129/65 (86) 100 01/31/20 19:30 86 22 125/64 (84) 100 01/31/20 19:23 81 25 30 01/31/20 19:00 89 22 116/62 (80) 100 01/31/20 18:00 80/52 01/31/20 18:00 90 24 120/65 (83) 100 01/31/20 17:40 98 26 87/50 (62) 100 01/31/20 17:21 79 24 62/46 (51) 100 01/31/20 17:00 92 24 90/58 (69) 99 01/31/20 16:45 92 23 90/59 (69) 99 01/31/20 16:30 93 24 99/64 (76) 100 01/31/20 16:00 98.7 92 23 93/60 (71) 100 01/31/20 16:00 Mechanical Ventilator 01/31/20 16:00 30 01/31/20 16:00 97 01/31/20 15:30 96 26 94/65 (75) 100 01/31/20 15:29 92 25 30 01/31/20 15:00 94 28 96/65 (75) 100 01/31/20 14:00 104 28 96/60 (72) 100 01/31/20 13:00 103 27 101/63 (76) 100 01/31/20 12:00 98.6 98 26 98/61 (73) 100 01/31/20 12:00 50 01/31/20 12:00 Mechanical Ventilator 01/31/20 12:00 99 01/31/20 11:26 98 27 30 01/31/20 11:00 95 25 97/62 (74) 100 01/31/20 10:00 98 26 100/67 (78) 100 01/31/20 09:00 96 25 97/59 (72) 100 01/31/20 08:00 95 01/31/20 08:00 Mechanical Ventilator 01/31/20 08:00 50 01/31/20 08:00 98.7 98 26 108/68 (81) 100 01/31/20 07:53 96 26 50 01/31/20 07:00 99.8 94 26 118/68 (85) 100 01/31/20 06:30 98 26 126/71 (89) 100 01/31/20 06:00 103 26 114/68 (83) 100 01/31/20 05:30 103 27 115/67 (83) 100 01/31/20 05:00 105 28 109/71 (84) 100 01/31/20 04:30 105 28 113/70 (84) 100 01/31/20 04:00 108 01/31/20 04:00 Mechanical Ventilator 01/31/20 04:00 108 28 118/77 (91) 100 01/31/20 04:00 50 01/31/20 03:30 106 29 114/69 (84) 01/31/20 03:00 105 27 121/75 (90) 100 01/31/20 02:44 104 26 50 01/31/20 02:30 105 28 102/68 (79) 100 01/31/20 02:00 104 26 113/66 (82) 100 01/31/20 01:30 104 28 96/61 (73) 100 01/31/20 01:00 105 27 97/62 (74) 100 01/31/20 00:30 101/62 01/31/20 00:30 103 28 99/62 (74) 100 01/31/20 00:00 Mechanical Ventilator 01/31/20 00:00 99.5 103 27 101/62 (75) 100 01/30/20 23:30 104 28 100/66 (77) 100 01/30/20 23:00 104 28 100/64 (76) 100 01/30/20 22:52 103 27 50 01/30/20 22:30 108 27 99/67 (78) 100 01/30/20 22:00 107 28 98/60 (73) 100 01/30/20 21:30 107 28 97/60 (72) 100 01/30/20 21:00 105 29 98/67 (77) 100 01/30/20 20:30 105 28 95/60 (72) 100 01/30/20 20:00 104 01/30/20 20:00 99.0 104 27 100/62 (75) 100 01/30/20 20:00 50 01/30/20 20:00 Mechanical Ventilator 01/30/20 19:30 106 27 94/59 (71) 100 01/30/20 19:00 106 24 84/58 (67) 100 01/30/20 18:41 107 25 50 01/30/20 18:00 99 25 93/54 (67) 100 01/30/20 17:00 100 23 93/55 (68) 100 01/30/20 16:00 99.2 99 26 87/56 (66) 100 01/30/20 16:00 99 01/30/20 16:00 Mechanical Ventilator 01/30/20 16:00 50 01/30/20 15:28 101 24 70 01/30/20 15:00 98 24 93/57 (69) 100 01/30/20 14:00 98 25 90/57 (68) 100 01/30/20 13:00 97 23 86/55 (65) 100 01/30/20 12:00 93 01/30/20 12:00 98.8 96 20 92/58 (69) 100 01/30/20 12:00 Mechanical Ventilator 01/30/20 11:02 95 30 70 01/30/20 11:00 97 20 91/58 (69) 100 01/30/20 10:00 97 22 90/60 (70) 100 01/30/20 10:00 50 01/30/20 09:00 104 25 102/62 (75) 100 01/30/20 08:00 70 01/30/20 08:00 Mechanical Ventilator 01/30/20 08:00 105 01/30/20 08:00 98.8 106 21 106/65 (79) 100 Intake and Output 01/31/20 02/01/20 19:00 07:00 Intake Total 2005.0 ml 1290.0 ml Output Total 465 ml 360 ml Balance 1540.0 ml 930.0 ml Free Water 120 ml IV Total 1240.0 ml 630.0 ml Tube Feeding 645 ml 660 ml Output Urine Total 265 ml 360 ml Stool Total 200 ml Labs Test 01/29/20 09:45 01/29/20 12:59 01/29/20 16:32 01/29/20 22:37 Arterial Blood pH 7.332 (7.350-7.450) Arterial Blood Partial Pressure CO2 37.6 mmHg (35.0-45.0) Arterial Blood Partial Pressure O2 81.7 mmHg (75.0-100.0) Arterial Blood HCO3 19.5 mmol/L (22.0-26.0) Arterial Blood Oxygen Saturation 95.6 % (95-100) Arterial Blood Base Excess -5.9 (-2-2) Asael Test Positive POC Whole Blood Glucose 78 MG/DL (74-106) 170 MG/DL (74-106) Test 01/30/20 04:00 01/30/20 05:36 01/30/20 08:08 01/30/20 08:50 White Blood Count 4.1 K/UL (4.8-10.8) Red Blood Count 3.08 M/UL (4.70-6.10) Hemoglobin 8.6 G/DL (14.2-18.0) Hematocrit 28.3 % (42.0-52.0) Mean Corpuscular Volume 92 FL (80-99) Mean Corpuscular Hemoglobin 28.1 PG (27.0-31.0) Mean Corpuscular Hemoglobin Concent 30.5 G/DL (32.0-36.0) Red Cell Distribution Width 20.4 % (11.6-14.8) Platelet Count 246 K/UL (150-450) Mean Platelet Volume 6.4 FL (6.5-10.1) Neutrophils (%) (Auto) % (45.0-75.0) Lymphocytes (%) (Auto) % (20.0-45.0) Monocytes (%) (Auto) % (1.0-10.0) Eosinophils (%) (Auto) % (0.0-3.0) Basophils (%) (Auto) % (0.0-2.0) Differential Total Cells Counted 100 Neutrophils % (Manual) 61 % (45-75) Lymphocytes % (Manual) 20 % (20-45) Monocytes % (Manual) 8 % (1-10) Eosinophils % (Manual) 0 % (0-3) Basophils % (Manual) 0 % (0-2) Band Neutrophils 11 % (0-8) Platelet Estimate Adequate Platelet Morphology Normal Polychromasia 1+ Hypochromasia 2+ Anisocytosis 2+ Arterial Blood pH 7.513 (7.350-7.450) Arterial Blood Partial Pressure CO2 25.0 mmHg (35.0-45.0) Arterial Blood Partial Pressure O2 253.1 mmHg (75.0-100.0) Arterial Blood HCO3 19.6 mmol/L (22.0-26.0) Arterial Blood Oxygen Saturation 98.7 % (95-100) Arterial Blood Base Excess -2.5 (-2-2) Asael Test Positive Sodium Level 145 MMOL/L (136-145) Potassium Level 3.1 MMOL/L (3.5-5.1) Chloride Level 113 MMOL/L (98-107) Carbon Dioxide Level 21 MMOL/L (21-32) Blood Urea Nitrogen 11 mg/dL (7-18) Creatinine 0.9 MG/DL (0.55-1.30) Estimat Glomerular Filtration Rate > 60 mL/min (>60) Glucose Level 123 MG/DL (74-106) Calcium Level 7.9 MG/DL (8.5-10.1) Total Bilirubin 0.8 MG/DL (0.2-1.0) Aspartate Amino Transf (AST/SGOT) 55 U/L (15-37) Alanine Aminotransferase (ALT/SGPT) 24 U/L (12-78) Alkaline Phosphatase 224 U/L (46-116) Total Protein 5.6 G/DL (6.4-8.2) Albumin 1.9 G/DL (3.4-5.0) Globulin 3.7 g/dL Albumin/Globulin Ratio 0.5 (1.0-2.7) Test 01/31/20 03:45 02/01/20 02:45 White Blood Count 8.4 K/UL (4.8-10.8) 9.4 K/UL (4.8-10.8) Red Blood Count 2.91 M/UL (4.70-6.10) 2.66 M/UL (4.70-6.10) Hemoglobin 8.1 G/DL (14.2-18.0) 7.5 G/DL (14.2-18.0) Hematocrit 26.5 % (42.0-52.0) 22.2 % (42.0-52.0) Mean Corpuscular Volume 91 FL (80-99) 83 FL (80-99) Mean Corpuscular Hemoglobin 28.0 PG (27.0-31.0) 28.1 PG (27.0-31.0) Mean Corpuscular Hemoglobin Concent 30.7 G/DL (32.0-36.0) 33.7 G/DL (32.0-36.0) Red Cell Distribution Width 19.8 % (11.6-14.8) 20.6 % (11.6-14.8) Platelet Count 258 K/UL (150-450) 263 K/UL (150-450) Mean Platelet Volume 6.6 FL (6.5-10.1) 6.6 FL (6.5-10.1) Neutrophils (%) (Auto) % (45.0-75.0) % (45.0-75.0) Lymphocytes (%) (Auto) % (20.0-45.0) % (20.0-45.0) Monocytes (%) (Auto) % (1.0-10.0) % (1.0-10.0) Eosinophils (%) (Auto) % (0.0-3.0) % (0.0-3.0) Basophils (%) (Auto) % (0.0-2.0) % (0.0-2.0) Differential Total Cells Counted 100 Neutrophils % (Manual) 85 % (45-75) Lymphocytes % (Manual) 10 % (20-45) Monocytes % (Manual) 5 % (1-10) Eosinophils % (Manual) 0 % (0-3) Basophils % (Manual) 0 % (0-2) Band Neutrophils 0 % (0-8) Platelet Estimate Adequate Platelet Morphology Normal Polychromasia 1+ Hypochromasia 1+ Anisocytosis 2+ Sodium Level 141 MMOL/L (136-145) 140 MMOL/L (136-145) Potassium Level 3.1 MMOL/L (3.5-5.1) 3.0 MMOL/L (3.5-5.1) Chloride Level 109 MMOL/L (98-107) 107 MMOL/L (98-107) Carbon Dioxide Level 23 MMOL/L (21-32) 21 MMOL/L (21-32) Blood Urea Nitrogen 13 mg/dL (7-18) 13 mg/dL (7-18) Creatinine 0.9 MG/DL (0.55-1.30) 1.0 MG/DL (0.55-1.30) Estimat Glomerular Filtration Rate > 60 mL/min (>60) > 60 mL/min (>60) Glucose Level 123 MG/DL (74-106) 81 MG/DL (74-106) Uric Acid 4.6 MG/DL (2.6-7.2) Calcium Level 7.5 MG/DL (8.5-10.1) 7.0 MG/DL (8.5-10.1) Phosphorus Level 1.4 MG/DL (2.5-4.9) Magnesium Level 1.6 MG/DL (1.8-2.4) Total Bilirubin 0.5 MG/DL (0.2-1.0) Aspartate Amino Transf (AST/SGOT) 30 U/L (15-37) Alanine Aminotransferase (ALT/SGPT) 24 U/L (12-78) Alkaline Phosphatase 226 U/L (46-116) C-Reactive Protein, Quantitative 25.5 mg/dL (0.00-0.90) Pro-B-Type Natriuretic Peptide 2558 pg/mL (0-125) Total Protein 5.5 G/DL (6.4-8.2) Albumin 1.7 G/DL (3.4-5.0) Globulin 3.8 g/dL Albumin/Globulin Ratio 0.4 (1.0-2.7) Height (Feet): 5 Height (Inches): 9.00 Weight (Pounds): 149 Objective PE: Vitals: reviewed General Appearance: NAD HEENT: normocephalic, atraumatic Neck: non-tender, normal alignment Respiratory/Chest: nromal breath sounds bilaterally Cardiovascular/Chest: normal peripheral pulses, normal rate Abdomen: normal bowel sounds, soft, nontender Extremities: normal range of motion Samuel Son MD Feb 01, 2020 07:33
--- NOTE | 2020-02-01 08:55 | Critical Care Progress Note ---
Assessment/Plan Assessment/Plan acute respiratory failure bacteremia diabetes hypertension ARF toxic met encephalopathy patchy pneumonia pleural effusions PLAN care noted IV antibiotics respiratory care Ventilatory support reviewed meds supportive care suction no wean for today oxygen therapy prognosis guarded nutrition off load follow up labs and acid base medications/laboratory data/nursing notes/ICU care reviewed in detail note reviewed and edited care discussed with RN and RT ICU time spent >40 minutes Critical Care - Subjective Interval Events: coverage for Dr. Zelaya intubated on vent sedated ROS Limited/Unobtainable: Yes Condition: critical EKG Rhythm: Sinus Rhythm I&O: Intake and Output 01/31/20 02/01/20 19:00 07:00 Intake Total 2005.0 ml 1290.0 ml Output Total 465 ml 360 ml Balance 1540.0 ml 930.0 ml Free Water 120 ml IV Total 1240.0 ml 630.0 ml Tube Feeding 645 ml 660 ml Output Urine Total 265 ml 360 ml Stool Total 200 ml Critical Care - Objective ET-Tube: 7.0 ET Position: 24 Last 24 Hour Vital Signs Date Time Temp Pulse Resp B/P (MAP) Pulse Ox O2 Delivery O2 Flow Rate FiO2 02/01/20 07:00 81 17 112/60 (77) 100 02/01/20 06:00 98.3 81 17 112/60 (77) 100 02/01/20 05:00 90 22 111/56 (74) 100 02/01/20 04:00 92 22 112/51 (71) 100 02/01/20 04:00 30 02/01/20 04:00 92 02/01/20 04:00 Mechanical Ventilator 02/01/20 03:16 80 24 30 02/01/20 03:00 92 22 112/51 (71) 100 02/01/20 02:30 85 20 119/58 (78) 100 02/01/20 02:00 85 20 118/58 (78) 100 02/01/20 01:30 79 20 128/58 (81) 100 02/01/20 01:00 82 22 116/50 (72) 100 02/01/20 00:30 93 22 117/56 (76) 100 02/01/20 00:00 Mechanical Ventilator 02/01/20 00:00 98.6 96 23 124/62 (82) 100 01/31/20 23:30 89 22 102/52 (69) 100 01/31/20 23:00 80 19 153/73 (99) 100 01/31/20 22:57 82 20 30 01/31/20 22:30 78 21 142/79 (100) 100 01/31/20 22:00 81 21 146/68 (94) 100 01/31/20 21:00 88 22 126/62 (83) 100 01/31/20 20:00 30 01/31/20 20:00 86 01/31/20 20:00 Mechanical Ventilator 01/31/20 20:00 98.7 86 23 129/65 (86) 100 01/31/20 19:30 86 22 125/64 (84) 100 01/31/20 19:23 81 25 30 01/31/20 19:00 89 22 116/62 (80) 100 01/31/20 18:00 80/52 01/31/20 18:00 90 24 120/65 (83) 100 01/31/20 17:40 98 26 87/50 (62) 100 01/31/20 17:21 79 24 62/46 (51) 100 01/31/20 17:00 92 24 90/58 (69) 99 01/31/20 16:45 92 23 90/59 (69) 99 01/31/20 16:30 93 24 99/64 (76) 100 01/31/20 16:00 98.7 92 23 93/60 (71) 100 01/31/20 16:00 Mechanical Ventilator 01/31/20 16:00 30 01/31/20 16:00 97 01/31/20 15:30 96 26 94/65 (75) 100 01/31/20 15:29 92 25 30 01/31/20 15:00 94 28 96/65 (75) 100 01/31/20 14:00 104 28 96/60 (72) 100 01/31/20 13:00 103 27 101/63 (76) 100 01/31/20 12:00 98.6 98 26 98/61 (73) 100 01/31/20 12:00 50 01/31/20 12:00 Mechanical Ventilator 01/31/20 12:00 99 01/31/20 11:26 98 27 30 01/31/20 11:00 95 25 97/62 (74) 100 01/31/20 10:00 98 26 100/67 (78) 100 01/31/20 09:00 96 25 97/59 (72) 100 Labs: Laboratory Tests 02/01/20 02:45: White Blood Count 9.4, Red Blood Count 2.66L, Hemoglobin 7.5L, Hematocrit 22.2L, Mean Corpuscular Volume 83#, Mean Corpuscular Hemoglobin 28.1, Mean Corpuscular Hemoglobin Concent 33.7, Red Cell Distribution Width 20.6H, Platelet Count 263, Mean Platelet Volume 6.6, Neutrophils (%) (Auto) , Lymphocytes (%) (Auto) , Monocytes (%) (Auto) , Eosinophils (%) (Auto) , Basophils (%) (Auto) , Neutrophils % (Manual) [Pending], Lymphocytes % (Manual) [Pending], Platelet Estimate [Pending], Platelet Morphology [Pending], Sodium Level 140, Potassium Level 3.0L, Chloride Level 107, Carbon Dioxide Level 21, Blood Urea Nitrogen 13, Creatinine 1.0, Estimat Glomerular Filtration Rate > 60, Glucose Level 81, Calcium Level 7.0L 02/01/20 07:49: Arterial Blood pH 7.511H, Arterial Blood Partial Pressure CO2 25.4L, Arterial Blood Partial Pressure O2 97.5, Arterial Blood HCO3 19.9L, Arterial Blood Oxygen Saturation 97.0, Arterial Blood Base Excess -2.5L, Asael Test Positive Objective: WDWN NAD oral ETT reduced breath sounds bilaterally with some rhonchi [id number] without MRG NABS nontender feeding tub no CCE poor LOC Micro: Microbiology Date/Time Source Procedure Growth Status 01/30/20 13:00 Blood Blood Culture - Preliminary Strep Species, Alpha Hemolytic Resulted 01/30/20 12:40 Blood Blood Culture - Preliminary NO GROWTH AFTER 24 HOURS Resulted Accucheck: 98 Mike Story MD Feb 01, 2020 08:54
--- NOTE | 2020-02-01 09:21 | Pre-Procedure Note/Attestation ---
Pre-Procedure Note/Attestation Complete Prior to Procedure Planned Procedure: not applicable Procedure Narrative: egd/peg Indications for Procedure Pre-Operative Diagnosis: dysphagia Attestation I attest that I discussed the nature of the procedure; its benefits; risks and complications; and alternatives (and the risks and benefits of such alternatives), prior to the procedure, with the patient (or the patient's legal sales representative printing paper). I attest that, if there was a reasonable possibility of needing a blood transfu jaswant, the patient (or the patient's legal sales representative printing paper) was given the [facility] standardized written summary, pursuant to the [employer] Blood Safety Act ([place] Health and Safety Code # 1645, as amended). I attest that I re-evaluated the patient just prior to the surgery and that there has been no change in the patient's H&P, except as documented below: Paulino Bueno MD Feb 01, 2020 09:20
--- NOTE | 2020-02-01 09:42 | General Progress Note ---
Subjective ROS Limited/Unobtainable: No Allergies: Coded Allergies: No Known Allergies (Unverified , 03/18/19) Objective Last 24 Hour Vital Signs Date Time Temp Pulse Resp B/P (MAP) Pulse Ox O2 Delivery O2 Flow Rate FiO2 02/01/20 09:00 76 18 110/51 (70) 100 02/01/20 08:00 30 02/01/20 08:00 Mechanical Ventilator 02/01/20 08:00 98.4 86 21 112/56 (74) 98 02/01/20 07:10 84 21 30 02/01/20 07:00 81 17 112/60 (77) 100 02/01/20 06:00 98.3 81 17 112/60 (77) 100 02/01/20 05:00 90 22 111/56 (74) 100 02/01/20 04:00 92 22 112/51 (71) 100 02/01/20 04:00 30 02/01/20 04:00 92 02/01/20 04:00 Mechanical Ventilator 02/01/20 03:16 80 24 30 02/01/20 03:00 92 22 112/51 (71) 100 02/01/20 02:30 85 20 119/58 (78) 100 02/01/20 02:00 85 20 118/58 (78) 100 02/01/20 01:30 79 20 128/58 (81) 100 02/01/20 01:00 82 22 116/50 (72) 100 02/01/20 00:30 93 22 117/56 (76) 100 02/01/20 00:00 Mechanical Ventilator 02/01/20 00:00 98.6 96 23 124/62 (82) 100 01/31/20 23:30 89 22 102/52 (69) 100 01/31/20 23:00 80 19 153/73 (99) 100 01/31/20 22:57 82 20 30 01/31/20 22:30 78 21 142/79 (100) 100 01/31/20 22:00 81 21 146/68 (94) 100 01/31/20 21:00 88 22 126/62 (83) 100 01/31/20 20:00 30 01/31/20 20:00 86 01/31/20 20:00 Mechanical Ventilator 01/31/20 20:00 98.7 86 23 129/65 (86) 100 01/31/20 19:30 86 22 125/64 (84) 100 01/31/20 19:23 81 25 30 01/31/20 19:00 89 22 116/62 (80) 100 01/31/20 18:00 80/52 01/31/20 18:00 90 24 120/65 (83) 100 01/31/20 17:40 98 26 87/50 (62) 100 01/31/20 17:21 79 24 62/46 (51) 100 01/31/20 17:00 92 24 90/58 (69) 99 01/31/20 16:45 92 23 90/59 (69) 99 01/31/20 16:30 93 24 99/64 (76) 100 01/31/20 16:00 98.7 92 23 93/60 (71) 100 01/31/20 16:00 Mechanical Ventilator 01/31/20 16:00 30 01/31/20 16:00 97 01/31/20 15:30 96 26 94/65 (75) 100 01/31/20 15:29 92 25 30 01/31/20 15:00 94 28 96/65 (75) 100 01/31/20 14:00 104 28 96/60 (72) 100 01/31/20 13:00 103 27 101/63 (76) 100 01/31/20 12:00 98.6 98 26 98/61 (73) 100 01/31/20 12:00 50 01/31/20 12:00 Mechanical Ventilator 01/31/20 12:00 99 01/31/20 11:26 98 27 30 01/31/20 11:00 95 25 97/62 (74) 100 01/31/20 10:00 98 26 100/67 (78) 100 Intake and Output 01/31/20 02/01/20 19:00 07:00 Intake Total 2005.0 ml 1290.0 ml Output Total 465 ml 360 ml Balance 1540.0 ml 930.0 ml Free Water 120 ml IV Total 1240.0 ml 630.0 ml Tube Feeding 645 ml 660 ml Output Urine Total 265 ml 360 ml Stool Total 200 ml Laboratory Tests 02/01/20 02:45: White Blood Count 9.4, Red Blood Count 2.66L, Hemoglobin 7.5L, Hematocrit 22.2L, Mean Corpuscular Volume 83#, Mean Corpuscular Hemoglobin 28.1, Mean Corpuscular Hemoglobin Concent 33.7, Red Cell Distribution Width 20.6H, Platelet Count 263, Mean Platelet Volume 6.6, Neutrophils (%) (Auto) , Lymphocytes (%) (Auto) , Monocytes (%) (Auto) , Eosinophils (%) (Auto) , Basophils (%) (Auto) , Neutrophils % (Manual) [Pending], Lymphocytes % (Manual) [Pending], Platelet Estimate [Pending], Platelet Morphology [Pending], Sodium Level 140, Potassium Level 3.0L, Chloride Level 107, Carbon Dioxide Level 21, Blood Urea Nitrogen 13, Creatinine 1.0, Estimat Glomerular Filtration Rate > 60, Glucose Level 81, Calcium Level 7.0L 02/01/20 07:49: Arterial Blood pH 7.511H, Arterial Blood Partial Pressure CO2 25.4L, Arterial Blood Partial Pressure O2 97.5, Arterial Blood HCO3 19.9L, Arterial Blood Oxygen Saturation 97.0, Arterial Blood Base Excess -2.5L, Asael Test Positive Height (Feet): 5 Height (Inches): 9.00 Weight (Pounds): 149 General Appearance: lethargic EENT: normal ENT inspection Neck: supple Cardiovascular: normal rate Respiratory/Chest: decreased breath sounds Abdomen: hypoactive bowel sounds Extremities: non-tender Assessment/Plan Status: progressing, unchanged Assessment/Plan: AMS dementia Anemia DM hyper CA elevated AST low albumin COPD RI HTN metastatic prostate CA intubated in the icu NGTF PEG plans for Tuesday pending possible Trach? Paulino Bueno MD Feb 01, 2020 09:42
--- NOTE | 2020-02-01 11:04 | Nephrology Progress Note ---
Assessment/Plan Problem List: (1) ARF (acute renal failure) (2) Hypernatremia (3) Hypovolemic shock (4) Altered level of consciousness (5) Hypercalcemia (6) Hyperuricemia (7) Pelvic mass Assessment: Prostate cancer Assessment Acute renal failure Possible underlying chronic kidney failure Severe dehydration Hypernatremia indicative of severe water deficit Severe hyperuricemia, partly due to dehydration and renal failure Acute metabolic and toxic encephalopathy Mild, malnutrition Anemia Lactic acid, possible sepsis Hypercalcemia Plan January 31: Continues to be on ventilator. Labs reviewed. Abnormal electrolyte addressed. Continue per consultants. January 30: Patient remains intubated. On no pressors. Abnormal electrolyte addressed. Discussed with RN. Apparently due for PEG insertion tomorrow. Continue per consultants. January 29: Patient was coded late last night. Now in ICU intubated. Was on pressors for a short period of time. Is off pressors now. Labs reviewed. Abnormal electrolyte addressed. Continue per consultants. January 28: Labs reviewed. Abnormal electrolyte addressed. Continue per consultants. January 27: Labs reviewed. Abnormal electrolyte addressed. Low potassium low phosphorus and low magnesium replaced. Continue per consultants. January 26: No labs drawn today. Status quo. Continue per consultants. Will check renal parameters tomorrow. January 25: Renal parameters stable. On Venturi mask. Continue per current management. January 24: Renal parameters stable. On Venturi mask. Discussed with RN. Due for PEG insertion today. January 23: Stable from renal standpoint of view. On Venturi mask. Low magnesium addressed. Continue per consultants. January 22: Patient off pressors. Patient extubated. Labs reviewed. Renal parameters are stable. January 21: Patient on low-dose pressors. Remains hypotensive. Renal parameters stable. Weaning trial in process. Mental status remains poor. January 20: Patient in ICU. Intubated. Full code. Has advanced prostate cancer. On IV Lasix drip. Low magnesium and low phosphorus and low potassium noted and addressed. Continue per consultants. January 19: Patient in ICU. Intubated. Was coded yesterday. Labs reviewed. Medication list reviewed and adjusted. Continue per consultants. Patient full code. Prognosis poor. PSA over 2700 January 18: Labs reviewed. IV fluid discontinued. IV calcium dose decreased. Midodrine dose decreased. Reglan and Protonix changed to GT route. Vitamin D initiated. Continue to monitor renal parameters and calcium level. January 17: Labs reviewed. Abnormal electrolyte addressed. Continue per consultants. January 16: Patient now in telemetry. Labs pending. Continue to monitor renal parameters. Continue per consultants. January 15: Still in ICU. Doing well post extubation. Renal parameters improving. Not requiring any more dialysis treatment after the first dialysis treatment. Medications reviewed. Continue per consultants. January 14: Remains in ICU. Tolerating extubation. Labs reviewed. Abnormal electrolytes addressed. Serum creatinine lowering. Continue per current management. Stop Phos binders. Increase calcium IV. January 13: In ICU. Now extubated. Only dialyzed once. Urine output maintained. Serum creatinine down to 2.5. Patient has NG tube. Continue to monitor renal parameters. Continue per consultants. Abnormal electrolytes ad dressed. January 12: Remains in ICU. Intubated. Transfused yesterday. Abnormal electrolytes addressed. Dialyzed once January 10. Serum creatinine stable. Will adjust IV fluid. Monitor renal parameters. Dialysis as needed. Calcium gluconate IV ordered. Ionized calcium level ordered with tomorrow's labs. January 11: Patient in ICU. Intubated. On Levophed. Hemoglobin low. Due for transfusion. Electrolyte abnormalities noted and addressed. Patient was dialyzed yesterday. Will check lab tomorrow. Dialysis as needed. Discussed with SELIN Srivastava. January 10: Patient is doing poorly. Blood pressure low. ABG abnormal with m etabolic acidosis. IV sodium bicarb given. Serum creatinine reno. Patient has acute renal failure. Nontunneled dialysis catheter replacement ordered.. Patient need life saving dialysis treatment SRINIVAS. January 09: Labs reviewed. IV D5 and a half with sodium bicarb initiated. Serum creatinine higher. Continue to monitor renal parameters. NG feeding was changed to Nepro. Patient remains full code. Poor prognosis. January 08: Labs reviewed. IV D5W discontinued. 500 cc 3% saline ordered. NG tube for feeding and for medications. Allopurinol dose increased. Continue to monitor renal parameters serum calcium and phosphorus. January 07: Labs reviewed. Serum calcium remains elevated. Uric acid still elevated. Will give pamidronate 60 mg IV piggyback once for hypercalcemia. Continue to monitor renal parameters. Continue D5W 150 cc an hour. Start Bicitra 30 cc p.o. every 6 hours. Add allopurinol D5W IV hydration Albumin bolus N.p.o. until able to take p.o. Antibiotics Monitor renal parameters monitor calcium, monitor uric acid Subjective ROS Limited/Unobtainable: Yes Objective Objective Last 24 Hour Vital Signs Date Time Temp Pulse Resp B/P (MAP) Pulse Ox O2 Delivery O2 Flow Rate FiO2 02/01/20 09:00 76 18 110/51 (70) 100 02/01/20 08:10 82 02/01/20 08:00 30 02/01/20 08:00 Mechanical Ventilator 02/01/20 08:00 98.4 86 21 112/56 (74) 98 02/01/20 07:10 84 21 30 02/01/20 07:00 81 17 112/60 (77) 100 02/01/20 06:00 98.3 81 17 112/60 (77) 100 02/01/20 05:00 90 22 111/56 (74) 100 02/01/20 04:00 92 22 112/51 (71) 100 02/01/20 04:00 30 02/01/20 04:00 92 02/01/20 04:00 Mechanical Ventilator 02/01/20 03:16 80 24 30 02/01/20 03:00 92 22 112/51 (71) 100 02/01/20 02:30 85 20 119/58 (78) 100 02/01/20 02:00 85 20 118/58 (78) 100 02/01/20 01:30 79 20 128/58 (81) 100 02/01/20 01:00 82 22 116/50 (72) 100 02/01/20 00:30 93 22 117/56 (76) 100 02/01/20 00:00 Mechanical Ventilator 02/01/20 00:00 98.6 96 23 124/62 (82) 100 01/31/20 23:30 89 22 102/52 (69) 100 01/31/20 23:00 80 19 153/73 (99) 100 01/31/20 22:57 82 20 30 01/31/20 22:30 78 21 142/79 (100) 100 01/31/20 22:00 81 21 146/68 (94) 100 01/31/20 21:00 88 22 126/62 (83) 100 01/31/20 20:00 30 01/31/20 20:00 86 01/31/20 20:00 Mechanical Ventilator 01/31/20 20:00 98.7 86 23 129/65 (86) 100 01/31/20 19:30 86 22 125/64 (84) 100 01/31/20 19:23 81 25 30 01/31/20 19:00 89 22 116/62 (80) 100 01/31/20 18:00 80/52 01/31/20 18:00 90 24 120/65 (83) 100 01/31/20 17:40 98 26 87/50 (62) 100 01/31/20 17:21 79 24 62/46 (51) 100 01/31/20 17:00 92 24 90/58 (69) 99 01/31/20 16:45 92 23 90/59 (69) 99 01/31/20 16:30 93 24 99/64 (76) 100 01/31/20 16:00 98.7 92 23 93/60 (71) 100 01/31/20 16:00 Mechanical Ventilator 01/31/20 16:00 30 01/31/20 16:00 97 01/31/20 15:30 96 26 94/65 (75) 100 01/31/20 15:29 92 25 30 01/31/20 15:00 94 28 96/65 (75) 100 01/31/20 14:00 104 28 96/60 (72) 100 01/31/20 13:00 103 27 101/63 (76) 100 01/31/20 12:00 98.6 98 26 98/61 (73) 100 01/31/20 12:00 50 01/31/20 12:00 Mechanical Ventilator 01/31/20 12:00 99 01/31/20 11:26 98 27 30 Intake and Output 01/31/20 02/01/20 19:00 07:00 Intake Total 2005.0 ml 1290.0 ml Output Total 465 ml 360 ml Balance 1540.0 ml 930.0 ml Free Water 120 ml IV Total 1240.0 ml 630.0 ml Tube Feeding 645 ml 660 ml Output Urine Total 265 ml 360 ml Stool Total 200 ml Laboratory Tests 02/01/20 02:45: White Blood Count 9.4, Red Blood Count 2.66L, Hemoglobin 7.5L, Hematocrit 22.2L, Mean Corpuscular Volume 83#, Mean Corpuscular Hemoglobin 28.1, Mean Corpuscular Hemoglobin Concent 33.7, Red Cell Distribution Width 20.6H, Platelet Count 263, Mean Platelet Volume 6.6, Neutrophils (%) (Auto) , Lymphocytes (%) (Auto) , Monocytes (%) (Auto) , Eosinophils (%) (Auto) , Basophils (%) (Auto) , Differential Total Cells Counted 100, Neutrophils % (Manual) 80H, Lymphocytes % (Manual) 17L, Monocytes % (Manual) 3, Eosinophils % (Manual) 0, Basophils % (Manual) 0, Band Neutrophils 0, Platelet Estimate Adequate, Platelet Morphology Normal, Hypochromasia 3+, Anisocytosis 3+, Schistocytes Occasional, Sodium Level 140, Potassium Level 3.0L, Chloride Level 107, Carbon Dioxide Level 21, Blood Urea Nitrogen 13, Creatinine 1.0, Estimat Glomerular Filtration Rate > 60, Glucose Level 81, Calcium Level 7.0L 02/01/20 07:49: Arterial Blood pH 7.511H, Arterial Blood Partial Pressure CO2 25.4L, Arterial Blood Partial Pressure O2 97.5, Arterial Blood HCO3 19.9L, Arterial Blood Oxygen Saturation 97.0, Arterial Blood Base Excess -2.5L, Asael Test Positive Height (Feet): 5 Height (Inches): 9.00 Weight (Pounds): 149 General Appearance: no apparent distress EENT: other - Remains on ventilator Cardiovascular: tachycardia Respiratory/Chest: decreased breath sounds Abdomen: distended Dhiraj Biswas MD Feb 01, 2020 11:04
--- NOTE | 2020-02-01 11:50 | Cardiac Electrophysiology PN ---
Assessment/Plan Assessment/Plan 1. Altered mental status due to severe dehydration in view of sodium of 160 and acute renal failure. On IV fluids and IV antibiotics. Ruled out for ND. 2. Septic shock, back on levophed overnight and on iv Abx On Midodrine 10 tid 3. History of CVA, off Plavix in view of hematuria. 4. Respiratory failure, Extubated 01/22 and reintubated 01/29/20 Likely need tracheostomy 5. Diabetes. 6. Acute renal failure. Cr 4.2. Had HD once only on 01/11/20. No more HD needed and Cr 1.2 7. Hematuria 8. Anemia with Hb 5.8 and coffee ground emesis. FU Dr Bueno 9. Shock liver with increase AST>2000 10. Metastatic prostate cancer -- w psa [id number] with a Large pelvic mass involving the prostate, bladder, seminal vesicles, presumably representing prostatic malignancy Severe right and moderate left hydronephrosis and bilateral hydroureter, due to ureteral obstruction by the above mass 11. Dysphagia, NGT feeding. PEG pending KARLO RN and Dr Biswas Subjective Subjective Coded 01/19 for respiratory failure followed by bradycardia and PEA. Extubated 01/23/20. PEG yesterday cancelled due to respiratory issue Had RN [facility] and then had asystole and was intubated and started on Levophed. Now off Levo and off sedation and no restraints. PEG placement postponed to after tracheostomy Objective Last 24 Hour Vital Signs Date Time Temp Pulse Resp B/P (MAP) Pulse Ox O2 Delivery O2 Flow Rate FiO2 02/01/20 11:00 77 20 112/55 (74) 100 02/01/20 10:00 85 21 111/57 (75) 100 02/01/20 09:00 76 18 110/51 (70) 100 02/01/20 08:10 82 02/01/20 08:00 30 02/01/20 08:00 Mechanical Ventilator 02/01/20 08:00 98.4 86 21 112/56 (74) 98 02/01/20 07:10 84 21 30 02/01/20 07:00 81 17 112/60 (77) 100 02/01/20 06:00 98.3 81 17 112/60 (77) 100 02/01/20 05:00 90 22 111/56 (74) 100 02/01/20 04:00 92 22 112/51 (71) 100 02/01/20 04:00 30 02/01/20 04:00 92 02/01/20 04:00 Mechanical Ventilator 02/01/20 03:16 80 24 30 02/01/20 03:00 92 22 112/51 (71) 100 02/01/20 02:30 85 20 119/58 (78) 100 02/01/20 02:00 85 20 118/58 (78) 100 02/01/20 01:30 79 20 128/58 (81) 100 02/01/20 01:00 82 22 116/50 (72) 100 02/01/20 00:30 93 22 117/56 (76) 100 02/01/20 00:00 Mechanical Ventilator 02/01/20 00:00 98.6 96 23 124/62 (82) 100 01/31/20 23:30 89 22 102/52 (69) 100 01/31/20 23:00 80 19 153/73 (99) 100 01/31/20 22:57 82 20 30 01/31/20 22:30 78 21 142/79 (100) 100 01/31/20 22:00 81 21 146/68 (94) 100 01/31/20 21:00 88 22 126/62 (83) 100 01/31/20 20:00 30 01/31/20 20:00 86 01/31/20 20:00 Mechanical Ventilator 01/31/20 20:00 98.7 86 23 129/65 (86) 100 01/31/20 19:30 86 22 125/64 (84) 100 01/31/20 19:23 81 25 30 01/31/20 19:00 89 22 116/62 (80) 100 01/31/20 18:00 80/52 01/31/20 18:00 90 24 120/65 (83) 100 01/31/20 17:40 98 26 87/50 (62) 100 01/31/20 17:21 79 24 62/46 (51) 100 01/31/20 17:00 92 24 90/58 (69) 99 01/31/20 16:45 92 23 90/59 (69) 99 01/31/20 16:30 93 24 99/64 (76) 100 01/31/20 16:00 98.7 92 23 93/60 (71) 100 01/31/20 16:00 Mechanical Ventilator 01/31/20 16:00 30 01/31/20 16:00 97 01/31/20 15:30 96 26 94/65 (75) 100 01/31/20 15:29 92 25 30 01/31/20 15:00 94 28 96/65 (75) 100 01/31/20 14:00 104 28 96/60 (72) 100 01/31/20 13:00 103 27 101/63 (76) 100 01/31/20 12:00 98.6 98 26 98/61 (73) 100 01/31/20 12:00 50 01/31/20 12:00 Mechanical Ventilator 01/31/20 12:00 99 Intake and Output 01/31/20 02/01/20 19:00 07:00 Intake Total 2005.0 ml 1350.0 ml Output Total 465 ml 360 ml Balance 1540.0 ml 990.0 ml Free Water 120 ml IV Total 1240.0 ml 690.0 ml Tube Feeding 645 ml 660 ml Output Urine Total 265 ml 360 ml Stool Total 200 ml Laboratory Tests Test 02/01/20 02:45 02/01/20 07:49 02/01/20 11:17 White Blood Count 9.4 K/UL (4.8-10.8) Red Blood Count 2.66 M/UL (4.70-6.10) L Hemoglobin 7.5 G/DL (14.2-18.0) L Hematocrit 22.2 % (42.0-52.0) L Mean Corpuscular Volume 83 FL (80-99) # Mean Corpuscular Hemoglobin 28.1 PG (27.0-31.0) Mean Corpuscular Hemoglobin Concent 33.7 G/DL (32.0-36.0) Red Cell Distribution Width 20.6 % (11.6-14.8) H Platelet Count 263 K/UL (150-450) Mean Platelet Volume 6.6 FL (6.5-10.1) Neutrophils (%) (Auto) % (45.0-75.0) Lymphocytes (%) (Auto) % (20.0-45.0) Monocytes (%) (Auto) % (1.0-10.0) Eosinophils (%) (Auto) % (0.0-3.0) Basophils (%) (Auto) % (0.0-2.0) Differential Total Cells Counted 100 Neutrophils % (Manual) 80 % (45-75) H Lymphocytes % (Manual) 17 % (20-45) L Monocytes % (Manual) 3 % (1-10) Eosinophils % (Manual) 0 % (0-3) Basophils % (Manual) 0 % (0-2) Band Neutrophils 0 % (0-8) Platelet Estimate Adequate Platelet Morphology Normal Hypochromasia 3+ Anisocytosis 3+ Schistocytes Occasional Sodium Level 140 MMOL/L (136-145) Potassium Level 3.0 MMOL/L (3.5-5.1) L Chloride Level 107 MMOL/L (98-107) Carbon Dioxide Level 21 MMOL/L (21-32) Blood Urea Nitrogen 13 mg/dL (7-18) Creatinine 1.0 MG/DL (0.55-1.30) Estimat Glomerular Filtration Rate > 60 mL/min (>60) Glucose Level 81 MG/DL (74-106) Calcium Level 7.0 MG/DL (8.5-10.1) L Arterial Blood pH 7.511 (7.350-7.450) 7.486 (7.350-7.450) Arterial Blood Partial Pressure CO2 25.4 mmHg (35.0-45.0) L 25.7 mmHg (35.0-45.0) L Arterial Blood Partial Pressure O2 97.5 mmHg (75.0-100.0) 101.7 mmHg (75.0-100.0) H Arterial Blood HCO3 19.9 mmol/L (22.0-26.0) L 19.0 mmol/L (22.0-26.0) L Arterial Blood Oxygen Saturation 97.0 % (95-100) 98.2 % (95-100) Arterial Blood Base Excess -2.5 (-2-2) L -3.6 (-2-2) L Asael Test Positive Positive Microbiology Date/Time Source Procedure Growth Status 01/30/20 13:00 Blood Blood Culture - Preliminary Strep Species, Alpha Hemolytic Resulted 01/30/20 12:40 Blood Blood Culture - Preliminary NO GROWTH AFTER 24 HOURS Resulted Objective HEAD AND NECK: NGT in place. Orally intubated LUNGS: Coarse rhonchi. CARDIOVASCULAR: Regular S1 and S2 with no gallop. ABDOMEN: Soft. EXTREMITIES: No pitting edema. Kevin Lopez MD Feb 01, 2020 11:50
--- NOTE | 2020-02-01 12:37 | Infectious Diseases Prog Note ---
Assessment/Plan 69yo M with: +ve blood cx : Strp - probable line infection ( HD cath placed on 01/10) Recurrent resp failure, most likely 2/2 increased volume, vascular congestion, pleural effusion, less likely 2/2 infection CODE BLUE 01/28, r/o infection Large L pleural effusion 01/28 CXR: Enlarged and now quite large left pleural effusion. Increasing interstitial congestion. Stable right pleural effusion 01/29 BCx ordered Shock- likely combination septic and metabolic derangements- SP Probable UTI -01/10 u/a wbc 60-80, nit neg, leuk +3; ucx Neg -Bcx NTD Probable PNA -01/12 CXR: No significant change in bilateral patchy pulmondary opacities, concerning for pneumonia versus edemaq. Small bilateral pleural effusions. -01/10 CXR: Bilateral interstitial and airspace infiltrates versus edema persists. sp cx MRSA (S Vancomycin, bactrim, tetracycline) COVID19 neg -01/04 rapid COVID PCR neg x1 influenza PCR neg CXR: Mild interstitial vascular prominence. No focal infiltrate or consolidation. 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 Etiology not demonstrated. Empty bladder with a Mathew catheter. 3 hypoechoic lesions within the pancreatic head and body, each measuring about 5 mm. Appearance nonspecific. Bilateral pleural effusions. Echogenic liver, consistent with hepatocellular disease. Surface likely nodularity raises concern for cirrhosis. Gallbladder sludge. Negative for dilated bile ducts. Probable nonobstructive left intrarenal calculi. Multiple hepatic cysts Acute on chronic encephalopathy -CT head: 1. Markedly limited, near nondiagnostic evaluation due to motion artifact. Grossly, age-related changes and small vessel disease of aging are noted. Again grossly, no acute intracranial pathology is detected. If there is a high degree of concern or if there is concern for subtle abnormalities, magnetic resonance imaging of the brain with diffusion-weighted sequences should be performed, due to the markedly limited nature of the current study. Close clinical correlation is necessary. HTN COPD DM2 paraplegia Dementia non verbal NH resident (elan mora) Plan: Cont Zosyn # 3 (sp Code blue, possible aspiration, and Line infection_ -01/18 SP vanco IV #7 -01/16 SP Cefepime #4 -01/13 SP ZOsyn #4 -01/06 SP Ceftriaxone #2 -01/04 Sp IV Vancomycin x1, Cefepime x1 -f/u cx -Monitor CBC/CMP, temperatures -Renal, cards f/u -aspiration precautions Appreciate Pulm input about large L pleural effusion Removal of HD cath and tip Cx repeat Blood , Sputum Cx D/w RN Thank you for consulting [facility]. Will continue to follow along with you. Subjective Allergies: Coded Allergies: No Known Allergies (Unverified , 03/18/19) off of pressors Objective Last 24 Hour Vital Signs Date Time Temp Pulse Resp B/P (MAP) Pulse Ox O2 Delivery O2 Flow Rate FiO2 02/01/20 12:00 87 02/01/20 11:00 77 20 112/55 (74) 100 02/01/20 10:00 85 21 111/57 (75) 100 02/01/20 09:00 76 18 110/51 (70) 100 02/01/20 08:10 82 02/01/20 08:00 30 02/01/20 08:00 Mechanical Ventilator 02/01/20 08:00 98.4 86 21 112/56 (74) 98 02/01/20 07:10 84 21 30 02/01/20 07:00 81 17 112/60 (77) 100 02/01/20 06:00 98.3 81 17 112/60 (77) 100 02/01/20 05:00 90 22 111/56 (74) 100 02/01/20 04:00 92 22 112/51 (71) 100 02/01/20 04:00 30 02/01/20 04:00 92 02/01/20 04:00 Mechanical Ventilator 02/01/20 03:16 80 24 30 02/01/20 03:00 92 22 112/51 (71) 100 02/01/20 02:30 85 20 119/58 (78) 100 02/01/20 02:00 85 20 118/58 (78) 100 02/01/20 01:30 79 20 128/58 (81) 100 02/01/20 01:00 82 22 116/50 (72) 100 02/01/20 00:30 93 22 117/56 (76) 100 02/01/20 00:00 Mechanical Ventilator 02/01/20 00:00 98.6 96 23 124/62 (82) 100 01/31/20 23:30 89 22 102/52 (69) 100 01/31/20 23:00 80 19 153/73 (99) 100 01/31/20 22:57 82 20 30 01/31/20 22:30 78 21 142/79 (100) 100 01/31/20 22:00 81 21 146/68 (94) 100 01/31/20 21:00 88 22 126/62 (83) 100 01/31/20 20:00 30 01/31/20 20:00 86 01/31/20 20:00 Mechanical Ventilator 01/31/20 20:00 98.7 86 23 129/65 (86) 100 01/31/20 19:30 86 22 125/64 (84) 100 01/31/20 19:23 81 25 30 01/31/20 19:00 89 22 116/62 (80) 100 01/31/20 18:00 80/52 01/31/20 18:00 90 24 120/65 (83) 100 01/31/20 17:40 98 26 87/50 (62) 100 01/31/20 17:21 79 24 62/46 (51) 100 01/31/20 17:00 92 24 90/58 (69) 99 01/31/20 16:45 92 23 90/59 (69) 99 01/31/20 16:30 93 24 99/64 (76) 100 01/31/20 16:00 98.7 92 23 93/60 (71) 100 01/31/20 16:00 Mechanical Ventilator 01/31/20 16:00 30 01/31/20 16:00 97 01/31/20 15:30 96 26 94/65 (75) 100 01/31/20 15:29 92 25 30 01/31/20 15:00 94 28 96/65 (75) 100 01/31/20 14:00 104 28 96/60 (72) 100 01/31/20 13:00 103 27 101/63 (76) 100 Height (Feet): 5 Height (Inches): 9.00 Weight (Pounds): 149 HEENT: atraumatic Respiratory/Chest: no respiratory distress Cardiovascular: regular rhythm Abdomen: no organomegaly Microbiology Date/Time Source Procedure Growth Status 01/30/20 13:00 Blood Blood Culture - Preliminary Strep Species, Alpha Hemolytic Resulted 01/30/20 12:40 Blood Blood Culture - Preliminary NO GROWTH AFTER 24 HOURS Resulted Laboratory Tests Test 02/01/20 02:45 02/01/20 07:49 02/01/20 11:17 White Blood Count 9.4 K/UL (4.8-10.8) Red Blood Count 2.66 M/UL (4.70-6.10) L Hemoglobin 7.5 G/DL (14.2-18.0) L Hematocrit 22.2 % (42.0-52.0) L Mean Corpuscular Volume 83 FL (80-99) # Mean Corpuscular Hemoglobin 28.1 PG (27.0-31.0) Mean Corpuscular Hemoglobin Concent 33.7 G/DL (32.0-36.0) Red Cell Distribution Width 20.6 % (11.6-14.8) H Platelet Count 263 K/UL (150-450) Mean Platelet Volume 6.6 FL (6.5-10.1) Neutrophils (%) (Auto) % (45.0-75.0) Lymphocytes (%) (Auto) % (20.0-45.0) Monocytes (%) (Auto) % (1.0-10.0) Eosinophils (%) (Auto) % (0.0-3.0) Basophils (%) (Auto) % (0.0-2.0) Differential Total Cells Counted 100 Neutrophils % (Manual) 80 % (45-75) H Lymphocytes % (Manual) 17 % (20-45) L Monocytes % (Manual) 3 % (1-10) Eosinophils % (Manual) 0 % (0-3) Basophils % (Manual) 0 % (0-2) Band Neutrophils 0 % (0-8) Platelet Estimate Adequate Platelet Morphology Normal Hypochromasia 3+ Anisocytosis 3+ Schistocytes Occasional Sodium Level 140 MMOL/L (136-145) Potassium Level 3.0 MMOL/L (3.5-5.1) L Chloride Level 107 MMOL/L (98-107) Carbon Dioxide Level 21 MMOL/L (21-32) Blood Urea Nitrogen 13 mg/dL (7-18) Creatinine 1.0 MG/DL (0.55-1.30) Estimat Glomerular Filtration Rate > 60 mL/min (>60) Glucose Level 81 MG/DL (74-106) Calcium Level 7.0 MG/DL (8.5-10.1) L Arterial Blood pH 7.511 (7.350-7.450) 7.486 (7.350-7.450) Arterial Blood Partial Pressure CO2 25.4 mmHg (35.0-45.0) L 25.7 mmHg (35.0-45.0) L Arterial Blood Partial Pressure O2 97.5 mmHg (75.0-100.0) 101.7 mmHg (75.0-100.0) H Arterial Blood HCO3 19.9 mmol/L (22.0-26.0) L 19.0 mmol/L (22.0-26.0) L Arterial Blood Oxygen Saturation 97.0 % (95-100) 98.2 % (95-100) Arterial Blood Base Excess -2.5 (-2-2) L -3.6 (-2-2) L Asael Test Positive Positive Current Medications Medications (Trade) Dose Ordered Sig/Jesse Route PRN Reason Start Time Stop Time Status Last Admin Dose Admin Acetaminophen (Tylenol) 650 mg Q4H PRN ORAL PRNH/TEMP 01/05/20 20:15 02/04/20 20:14 01/12/20 03:10 Bisacodyl (Dulcolax) 10 mg DAILY PRN RECTAL Constipation 01/05/20 20:15 04/04/20 20:14 Chlorhexidine Gluconate (Navya-Hex 2%) 1 applic DAILY@1999 TOPIC 01/11/20 20:00 04/10/20 19:59 01/31/20 20:12 Dextrose (Dextrose 50%) 25 ml Q30M PRN IV Hypoglycemia 01/05/20 20:15 04/04/20 20:14 01/24/20 23:53 Dextrose (Dextrose 50%) 50 ml Q30M PRN IV Hypoglycemia 01/05/20 20:15 04/04/20 20:14 Dextrose/Sodium Chloride 1,000 ml @ 60 mls/hr [id number] IV 01/24/20 13:30 02/23/20 13:29 02/01/20 05:00 Lansoprazole (Prevacid) 30 mg Q12HR NG 01/28/20 21:00 02/27/20 20:59 01/31/20 20:12 Linaclotide (Linzess) 290 mcg BEFORE BREAKFAST ORAL 01/10/20 06:30 04/09/20 06:29 01/31/20 05:56 Loperamide HCl (Imodium) 2 mg Q6H PRN NG Diarrhea 01/27/20 15:45 02/26/20 15:44 01/27/20 17:58 Metoclopramide HCl (Reglan) 10 mg EVERY 6 HOURS NG 01/19/20 12:00 02/18/20 11:59 01/31/20 18:07 Metoclopramide HCl (Reglan) 10 mg Q6H PRN IVP Nausea & Vomiting 01/16/20 13:00 02/15/20 12:59 Midodrine (Pro-Amatine) 10 mg Q8HR NG 01/20/20 22:00 04/13/20 17:59 01/31/20 21:24 Norepinephrine Bitartrate 250 ml @ 7.5 mls/hr Q24H IV 01/30/20 00:30 02/02/20 00:23 01/31/20 18:00 Ondansetron HCl (Zofran) 4 mg Q6H PRN IVP Nausea & Vomiting 01/10/20 06:30 02/09/20 06:29 Piperacillin Sod/ Tazobactam Sod 3.375 gm/Sodium Chloride 110 ml @ 27.5 mls/hr EVERY 8 HOURS IVPB 01/30/20 14:00 02/04/20 13:59 02/01/20 05:20 Polyethylene Glycol (Miralax) 17 gm BEDTIME NG 01/11/20 21:00 02/08/20 20:59 01/29/20 20:39 Potassium Chloride 100 ml @ 100 mls/hr Q1H IVPB 02/01/20 09:15 02/01/20 13:14 02/01/20 11:16 Sennosides (Senokot) 8.6 mg QHS NG 01/11/20 21:00 02/04/20 20:59 01/29/20 20:39 Vitamin D (Vitamin D) 3,000 intlu DAILY GT 01/19/20 12:00 02/18/20 11:59 01/31/20 10:01 Leon Recinos MD Feb 01, 2020 12:37
[2020-02-01] MEDS ORDERED: Heparin1,000 units/500ml Premix(Conc:2 units/ml) INJ PRN (13:00)
[2020-02-01] MEDS ORDERED: Lidocaine 1% Plain 30 ml INJ PRN (13:00)
--- NOTE | 2020-02-01 13:08 | Surgery Progress Note ---
Surgery Progress Note Subjective Procedure Performed Right femoral temporary hemodialysis catheter insertion Additional Comments blood cultures positive labs noted discussed with ID recommend removal of right femoral line and placement of new HD temp cath. patient unable to consent. cannot get NOK or POA. medically necessary and indicated. recommend to proceed dayanara Objective Last 24 Hour Vital Signs Date Time Temp Pulse Resp B/P (MAP) Pulse Ox O2 Delivery O2 Flow Rate FiO2 02/01/20 12:00 87 02/01/20 11:20 95 23 30 02/01/20 11:00 77 20 112/55 (74) 100 02/01/20 10:00 85 21 111/57 (75) 100 02/01/20 09:46 80 20 30 02/01/20 09:00 76 18 110/51 (70) 100 02/01/20 08:10 82 02/01/20 08:00 30 02/01/20 08:00 Mechanical Ventilator 02/01/20 08:00 98.4 86 21 112/56 (74) 98 02/01/20 07:10 84 21 30 02/01/20 07:00 81 17 112/60 (77) 100 02/01/20 06:00 98.3 81 17 112/60 (77) 100 02/01/20 05:00 90 22 111/56 (74) 100 02/01/20 04:00 92 22 112/51 (71) 100 02/01/20 04:00 30 02/01/20 04:00 92 02/01/20 04:00 Mechanical Ventilator 02/01/20 03:16 80 24 30 02/01/20 03:00 92 22 112/51 (71) 100 02/01/20 02:30 85 20 119/58 (78) 100 02/01/20 02:00 85 20 118/58 (78) 100 02/01/20 01:30 79 20 128/58 (81) 100 02/01/20 01:00 82 22 116/50 (72) 100 02/01/20 00:30 93 22 117/56 (76) 100 02/01/20 00:00 Mechanical Ventilator 02/01/20 00:00 98.6 96 23 124/62 (82) 100 01/31/20 23:30 89 22 102/52 (69) 100 01/31/20 23:00 80 19 153/73 (99) 100 01/31/20 22:57 82 20 30 01/31/20 22:30 78 21 142/79 (100) 100 01/31/20 22:00 81 21 146/68 (94) 100 01/31/20 21:00 88 22 126/62 (83) 100 01/31/20 20:00 30 01/31/20 20:00 86 01/31/20 20:00 Mechanical Ventilator 01/31/20 20:00 98.7 86 23 129/65 (86) 100 01/31/20 19:30 86 22 125/64 (84) 100 01/31/20 19:23 81 25 30 01/31/20 19:00 89 22 116/62 (80) 100 01/31/20 18:00 80/52 01/31/20 18:00 90 24 120/65 (83) 100 01/31/20 17:40 98 26 87/50 (62) 100 01/31/20 17:21 79 24 62/46 (51) 100 01/31/20 17:00 92 24 90/58 (69) 99 01/31/20 16:45 92 23 90/59 (69) 99 01/31/20 16:30 93 24 99/64 (76) 100 01/31/20 16:00 98.7 92 23 93/60 (71) 100 01/31/20 16:00 Mechanical Ventilator 01/31/20 16:00 30 01/31/20 16:00 97 01/31/20 15:30 96 26 94/65 (75) 100 01/31/20 15:29 92 25 30 01/31/20 15:00 94 28 96/65 (75) 100 01/31/20 14:00 104 28 96/60 (72) 100 I&O Intake and Output 01/31/20 02/01/20 19:00 07:00 Intake Total 2005.0 ml 1350.0 ml Output Total 465 ml 360 ml Balance 1540.0 ml 990.0 ml Free Water 120 ml IV Total 1240.0 ml 690.0 ml Tube Feeding 645 ml 660 ml Output Urine Total 265 ml 360 ml Stool Total 200 ml Cardiovascular: RSR Respiratory: decreased breath sounds Abdomen: soft, non-tender, present bowel sounds Extremities: no tenderness, no cyanosis Laboratory Tests Test 02/01/20 02:45 02/01/20 07:49 02/01/20 11:17 White Blood Count 9.4 K/UL (4.8-10.8) Red Blood Count 2.66 M/UL (4.70-6.10) L Hemoglobin 7.5 G/DL (14.2-18.0) L Hematocrit 22.2 % (42.0-52.0) L Mean Corpuscular Volume 83 FL (80-99) # Mean Corpuscular Hemoglobin 28.1 PG (27.0-31.0) Mean Corpuscular Hemoglobin Concent 33.7 G/DL (32.0-36.0) Red Cell Distribution Width 20.6 % (11.6-14.8) H Platelet Count 263 K/UL (150-450) Mean Platelet Volume 6.6 FL (6.5-10.1) Neutrophils (%) (Auto) % (45.0-75.0) Lymphocytes (%) (Auto) % (20.0-45.0) Monocytes (%) (Auto) % (1.0-10.0) Eosinophils (%) (Auto) % (0.0-3.0) Basophils (%) (Auto) % (0.0-2.0) Differential Total Cells Counted 100 Neutrophils % (Manual) 80 % (45-75) H Lymphocytes % (Manual) 17 % (20-45) L Monocytes % (Manual) 3 % (1-10) Eosinophils % (Manual) 0 % (0-3) Basophils % (Manual) 0 % (0-2) Band Neutrophils 0 % (0-8) Platelet Estimate Adequate Platelet Morphology Normal Hypochromasia 3+ Anisocytosis 3+ Schistocytes Occasional Sodium Level 140 MMOL/L (136-145) Potassium Level 3.0 MMOL/L (3.5-5.1) L Chloride Level 107 MMOL/L (98-107) Carbon Dioxide Level 21 MMOL/L (21-32) Blood Urea Nitrogen 13 mg/dL (7-18) Creatinine 1.0 MG/DL (0.55-1.30) Estimat Glomerular Filtration Rate > 60 mL/min (>60) Glucose Level 81 MG/DL (74-106) Calcium Level 7.0 MG/DL (8.5-10.1) L Arterial Blood pH 7.511 (7.350-7.450) 7.486 (7.350-7.450) Arterial Blood Partial Pressure CO2 25.4 mmHg (35.0-45.0) L 25.7 mmHg (35.0-45.0) L Arterial Blood Partial Pressure O2 97.5 mmHg (75.0-100.0) 101.7 mmHg (75.0-100.0) H Arterial Blood HCO3 19.9 mmol/L (22.0-26.0) L 19.0 mmol/L (22.0-26.0) L Arterial Blood Oxygen Saturation 97.0 % (95-100) 98.2 % (95-100) Arterial Blood Base Excess -2.5 (-2-2) L -3.6 (-2-2) L Asael Test Positive Positive Plan Problems: (1) Altered level of consciousness Assessment & Plan: weaning vent unsure if will be safe for extubation consider trach (2) Hypovolemic shock Assessment & Plan: resuscitation extubated monitor respiratory keep hob elevated supplemental O2 coded intubated in icu prognosis guarded ?code status change ?trach Gallbladder demonstrates sludge. No stones, wall thickening, nor pericholecystic fluid. Patient unable to report Wilson's sign Common bile duct measures 3 mm in diameter. No intrahepatic biliary ductal dilatation. Liver demonstrates coarsened echogenicity and surface nodularity. It demonstrates multiple cysts. Portal vein and hepatic veins are patent. The pancreas demonstrates 3 hypoechoic lesions in the head and body, measuring approximately 5 mm in diameter each. Spleen is unremarkable, poorly visualized. Left kidney measures 11.4 cm in length. Right kidney measures 11.3 cm length. Both kidneys demonstrate normal echogenicity. There is severe right and moderate left hydronephrosis. Echogenic foci are seen in the left renal sinus and collecting system. Bladder is empty, contains a Mathew catheter. Non-aneurysmal abdominal aorta . There are bilateral pleural effusions Impression: Bilateral right greater than left hydronephrosis, increased since prior study of 03/20/2019. Etiology not demonstrated Empty bladder with a Mathew catheter 3 hypoechoic lesions within the pancreatic head and body, each measuring about 5 mm. Appearance nonspecific. Recommend further evaluation with pancreas protocol MRI Bilateral pleural effusions Echogenic liver, consistent with hepatocellular disease. Surface likely nodularity raises concern for cirrhosis Gallbladder sludge. Negative for dilated bile ducts Probable nonobstructive left intrarenal calculi Multiple hepatic cysts (3) Lactic acid acidosis (4) Hypernatremia (5) Paraplegia (6) Anemia Assessment & Plan: no active bleeding noted no large hematoma dressings okay likely related to heme will monitor transfuse prbc with HD trend labs thank you (7) Diabetes (8) Weak (9) HTN (hypertension) (10) ARF (acute renal failure) (11) Hypercalcemia (12) Hyperuricemia (13) Dehydration (14) UTI (urinary tract infection) (15) Failure to thrive in adult Assessment & Plan: patient identified to have DTI on bilateral heels right with 5cm x 4cm area of dti not open no drainage no signs of infection left with 3cm x 2cm. pillow under leg optifoam dressings nutritional optimization will follow no acute surgery DAILY ESTIMATED NEEDS: Needs based on underweight, suspected wt loss, HD, CRITICAL CARE/ 57.6kg 25-33 kcals/kg [id number] total kcals 1.2-2 g protein/kg 69-115 g total protein 25-30 mL/kg 3074-1016 total fluid mLs NUTRITION DIAGNOSIS: *Increased kcal and pro needs r/t underweight status, suspected significant wt loss as evidenced by pt @ 71% IBW w/ BMI 17.2, underweight per guidelines, w/ suspected signficant wt loss of 30lbs/19% in 10 months. * Swallowing difficulty R/T dysphagia, respiratory status as evidenced by s/p NGT insertion (01/08), now NPO, s/p code blue (01/10), orally intubated. CURRENT TF:NPO ENTERAL NUTRITION RECOMMENDATIONS: WHEN HEMODYNAMICALLY STABLE: Nepro @ 40ml/hr x 24 hrs to provide 960ml, 1728kcal, 77g prot, 698ml free water WHEN HEMODYNAMICALLY STABLE AND MEDICALLY APPROPRIATE TO FEED: -> initiate TF @ 5ml/hr x 6hrs, advance slowly 5ml q 4-6 hrs as tolerated to goal rate -> HOB over 30 degrees/ water flush per MD WITHOUT HEMODYNAMIC STABILITY -> If medically appropriate to feed, rec trophic feeding of Nepro @ 5ml/hr x 24 hrs to maintain gut integrity (16) Pelvic mass Assessment & Plan: invasive pelvic mass likely prostate necrotic nodes likely spread recommend colonoscopy given invasion possible to rectum oncology input thank you There is a large pelvic mass which is cephalad to but inseparable from the prostate. This also is inseparable from the posterior wall of the bladder and there appears to be circumferential bladder wall thickening. This mass also appears to involve the seminal vesicles. This measures approximately 8.8 cm transverse by 10 cm craniocaudad by 7.4 cm AP. The periphery of this mass is very lobulated. The mass may also invade the adjacent rectum. There is bilateral iliac chain lymphadenopathy, with nodes measuring up to 3 cm in diameter. Some of these nodes are very low in attenuation indicating that they are necrotic. There is also retroperitoneal lymphadenopathy. There is severe right and moderate left hydronephrosis and bilateral hydroureter. The dilated ureters terminate at the level of the mass. No intrinsic renal pare nchymal abnormality. The pancreas is unremarkable. No findings corresponding to the areas of low-attenuation described on prior sonogram are evident. No pancreatic ductal dilatation is evident. The liver demonstrates multiple cysts. The gallbladder, bile ducts, spleen, adrenals are unremarkable. The bones demonstrate diffuse involvement with multiple mixed osteolytic/osteosclerotic lesions, mostly sclerotic component predominating. There is a right groin dialysis catheter in place, tip at the level of the iliac venous confluence. There is a nasogastric tube,, tip in the stomach. There is a Mathew catheter. There is a rectal tube lying outside the patient with the balloon inflated within the inner gluteal fold. There are bilateral pleural effusions. There is compressive atelectasis of most if not all of both lower lobes. 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 Compressive atelectasis of most of not all of both lower lobes Other findings as noted, including multiple liver cysts Lázaro Jenkins Feb 01, 2020 13:08
--- NOTE | 2020-02-01 13:19 | Diagnostic Imaging Report ---
Indication: Abnormal chest sounds Technique: One view of the chest Comparison: 01/29/2020 Findings: Endotracheal and orogastric tubes are again demonstrated, position satisfactory. Heart size is normal. There are bilateral pleural effusions and bilateral interstitial and airspace edema persists, probably unchanged allowing for differences in exposure technique. Impression: Unchanged, over 3 days, findings as above.
--- NOTE | 2020-02-01 15:21 | Brief Operative Note ---
Immediate Post Operative Note Operative Note Pre-op Diagnosis: renal failure Procedure: R TISHA gilbert Surgeon: Hung Ross Anesthesia: local Specimen: none Complications: none Fluids: none Implant(s) used?: No Coy Ross MD Feb 01, 2020 15:21
--- NOTE | 2020-02-01 15:45 | Diagnostic Imaging Report ---
Indication: Renal failure Technique: Procedure performed at bedside. Procedural timeout performed. Total sterile technique, including sterile probe cover and sterile gel, sterile gloves, hand hygiene, hat, mask, sterile gown, large sterile drape, and preparation with 2% chlorhexidine utilized. Local anesthesia with 1% lidocaine. Ultrasound reveals patent compressible right internal jugular vein. Under real-time ultrasound guidance with real-time visualization of the entry into the vein, puncture right internal jugular vein using 21-gauge micropuncture needle, passage 0.018 guidewire, insertion 4 Brazilian micropuncture introducer, passage 0.035 guidewire, over which was passed serial dilators and then a 13 Brazilian 15 cm triple-lumen temporary dialysis catheter. Guidewire was removed. Catheter ports were aspirated and flushed. The catheter was fixed to the skin. Patient tolerated procedure well. A chest x-ray was obtained, documents catheter tip position at the cavoatrial junction. Comparison: Completion chest radiograph compared to chest radiograph of 6 hours earlier Findings: As above Impression: Successful bedside placement of right transjugular temporary dialysis catheter, as described.
[2020-02-01] MEDS: Dyna-Hex 2% Top Sol 2oz TOPIC SCH (20:00)
--- NOTE | 2020-02-01 20:16 | General Progress Note ---
Subjective ROS Limited/Unobtainable: Yes Allergies: Coded Allergies: No Known Allergies (Unverified , 03/18/19) Objective Last 24 Hour Vital Signs Date Time Temp Pulse Resp B/P (MAP) Pulse Ox O2 Delivery O2 Flow Rate FiO2 02/01/20 19:30 95 21 30 02/01/20 19:00 90 18 106/65 (79) 02/01/20 18:00 87 20 97/65 (76) 100 02/01/20 17:00 87 18 101/66 (78) 100 02/01/20 16:33 87 19 30 02/01/20 16:00 83 02/01/20 16:00 Mechanical Ventilator 02/01/20 16:00 30 02/01/20 16:00 98.0 87 20 100/64 (76) 100 02/01/20 15:05 81 19 30 02/01/20 15:00 80 20 103/66 (78) 100 02/01/20 14:00 89 22 101/68 (79) 100 02/01/20 13:00 98.0 83 20 113/56 (75) 100 02/01/20 12:00 83 20 113/56 (75) 100 02/01/20 12:00 30 02/01/20 12:00 87 02/01/20 12:00 Mechanical Ventilator 02/01/20 11:20 100 02/01/20 11:20 95 23 30 02/01/20 11:00 77 20 112/55 (74) 100 02/01/20 10:00 85 21 111/57 (75) 100 02/01/20 09:46 80 20 30 02/01/20 09:00 76 18 110/51 (70) 100 02/01/20 08:10 82 02/01/20 08:00 30 02/01/20 08:00 Mechanical Ventilator 02/01/20 08:00 98.4 86 21 112/56 (74) 98 02/01/20 07:10 84 21 30 02/01/20 07:00 81 17 112/60 (77) 100 02/01/20 06:00 98.3 81 17 112/60 (77) 100 02/01/20 05:00 90 22 111/56 (74) 100 02/01/20 04:00 92 22 112/51 (71) 100 02/01/20 04:00 30 02/01/20 04:00 92 02/01/20 04:00 Mechanical Ventilator 02/01/20 03:16 80 24 30 02/01/20 03:00 92 22 112/51 (71) 100 02/01/20 02:30 85 20 119/58 (78) 100 02/01/20 02:00 85 20 118/58 (78) 100 02/01/20 01:30 79 20 128/58 (81) 100 02/01/20 01:00 82 22 116/50 (72) 100 02/01/20 00:30 93 22 117/56 (76) 100 02/01/20 00:00 Mechanical Ventilator 02/01/20 00:00 98.6 96 23 124/62 (82) 100 01/31/20 23:30 89 22 102/52 (69) 100 01/31/20 23:00 80 19 153/73 (99) 100 01/31/20 22:57 82 20 30 01/31/20 22:30 78 21 142/79 (100) 100 01/31/20 22:00 81 21 146/68 (94) 100 01/31/20 21:00 88 22 126/62 (83) 100 Intake and Output 01/31/20 02/01/20 19:00 07:00 Intake Total 2005.0 ml 1350.0 ml Output Total 465 ml 360 ml Balance 1540.0 ml 990.0 ml Free Water 120 ml IV Total 1240.0 ml 690.0 ml Tube Feeding 645 ml 660 ml Output Urine Total 265 ml 360 ml Stool Total 200 ml Laboratory Tests 02/01/20 02:45: White Blood Count 9.4, Red Blood Count 2.66L, Hemoglobin 7.5L, Hematocrit 22.2L, Mean Corpuscular Volume 83#, Mean Corpuscular Hemoglobin 28.1, Mean Corpuscular Hemoglobin Concent 33.7, Red Cell Distribution Width 20.6H, Platelet Count 263, Mean Platelet Volume 6.6, Neutrophils (%) (Auto) , Lymphocytes (%) (Auto) , Monocytes (%) (Auto) , Eosinophils (%) (Auto) , Basophils (%) (Auto) , Differential Total Cells Counted 100, Neutrophils % (Manual) 80H, Lymphocytes % (Manual) 17L, Monocytes % (Manual) 3, Eosinophils % (Manual) 0, Basophils % (M anual) 0, Band Neutrophils 0, Platelet Estimate Adequate, Platelet Morphology Normal, Hypochromasia 3+, Anisocytosis 3+, Schistocytes Occasional, Sodium Level 140, Potassium Level 3.0L, Chloride Level 107, Carbon Dioxide Level 21, Blood Urea Nitrogen 13, Creatinine 1.0, Estimat Glomerular Filtration Rate > 60, Glucose Level 81, Calcium Level 7.0L 02/01/20 07:49: Arterial Blood pH 7.511H, Arterial Blood Partial Pressure CO2 25.4L, Arterial Blood Partial Pressure O2 97.5, Arterial Blood HCO3 19.9L, Arterial Blood Oxygen Saturation 97.0, Arterial Blood Base Excess -2.5L, Asael Test Positive 02/01/20 11:17: Arterial Blood pH 7.486H, Arterial Blood Partial Pressure CO2 25.7L, Arterial Blood Partial Pressure O2 101.7H, Arterial Blood HCO3 19.0L, Arterial Blood Oxygen Saturation 98.2, Arterial Blood Base Excess -3.6L, Asael Test Positive Height (Feet): 5 Height (Inches): 9.00 Weight (Pounds): 149 Assessment/Plan Problem List: (1) Altered level of consciousness ICD Codes: R40.4 - Transient alteration of awareness SNOMED: 0061572 (2) Hypernatremia ICD Codes: E87.0 - Hyperosmolality and hypernatremia SNOMED: 883541926 (3) Paraplegia ICD Codes: G82.20 - Paraplegia, unspecified SNOMED: 57151633 (4) Anemia ICD Codes: D64.9 - Anemia, unspecified SNOMED: 411572485 (5) Diabetes ICD Codes: E11.9 - Type 2 diabetes mellitus without complications SNOMED: 27554500 (6) HTN (hypertension) ICD Codes: I10 - Essential (primary) hypertension SNOMED: 33933634 (7) ARF (acute renal failure) ICD Codes: N17.9 - Acute kidney failure, unspecified SNOMED: 08650441 (8) Dehydration ICD Codes: E86.0 - Dehydration SNOMED: 68075028 (9) UTI (urinary tract infection) ICD Codes: N39.0 - Urinary tract infection, site not specified SNOMED: 02362159 (10) Failure to thrive in adult ICD Codes: R62.7 - Adult failure to thrive SNOMED: 866949755 Status: progressing, unchanged Assessment/Plan: htn azotemia no change not improving afebrile vitals stable reviewed chart and labs Juan Diego Randall MD Feb 01, 2020 20:16
[2020-02-01] MEDS: Sennosides 8.6mg tab NG SCH (21:00)
[2020-02-01] MEDS: Miralax 17gm pkt NG SCH (21:00)
[2020-02-02] VITALS (31 sets, daily range): BP systolic 111–139; BP diastolic 62–88
[2020-02-02] MEDS: Midodrine 10mg tab NG SCH ×3 (05:50→22:00)
[2020-02-02] MEDS: Piperacillin/Tazobactam 3.375 GM in NS 110 ML IVPB SCH ×3 (05:50→22:08)
[2020-02-02] MEDS: Metoclopramide 10mg/10ml Liq NG SCH ×4 (05:50→23:46)
[2020-02-02 07:22] LABS: HEMATOCRIT 22.8 % (42.0-52.0); HEMOGLOBIN 7.7 G/DL (14.2-18.0); MEAN CORPUSCULAR VOLUME 84 FL (80-99); PLATELET COUNT 281 K/UL (150-450); RED CELL DISTRIBUTION WIDTH 20.1 % (11.6-14.8); WHITE BLOOD COUNT 9.9 K/UL (4.8-10.8)
[2020-02-02 08:09] LABS: ALANINE AMINOTRANSFERASE 32 U/L (12-78); ALBUMIN 1.5 G/DL (3.4-5.0); ALBUMIN/GLOBULIN RATIO 0.4 (1.0-2.7); ALKALINE PHOSPHATASE 229 U/L (46-116); ANION GAP 11 mmol/L (5-15); ASPARTATE AMINO TRANSFERASE 57 U/L (15-37); BILIRUBIN,TOTAL 0.3 MG/DL (0.2-1.0); BLOOD UREA NITROGEN 12 mg/dL (7-18); CALCIUM 7.2 MG/DL (8.5-10.1); CARBON DIOXIDE 20 MMOL/L (21-32); CHLORIDE 109 MMOL/L (98-107); CREATININE 0.9 MG/DL (0.55-1.30); POTASSIUM 3.2 MMOL/L (3.5-5.1); SODIUM 140 MMOL/L (136-145)
[2020-02-02] MEDS: Vitamin D 1000 IU Tab GT SCH (09:03)
--- NOTE | 2020-02-02 09:05 | General Progress Note ---
Subjective ROS Limited/Unobtainable: Yes Allergies: Coded Allergies: No Known Allergies (Unverified , 03/18/19) Objective Last 24 Hour Vital Signs Date Time Temp Pulse Resp B/P (MAP) Pulse Ox O2 Delivery O2 Flow Rate FiO2 02/02/20 07:00 82 24 30 02/02/20 07:00 93 20 128/72 (90) 100 02/02/20 06:30 92 21 122/65 (84) 100 02/02/20 06:00 98.5 89 20 125/76 (92) 100 02/02/20 05:30 88 21 116/67 (83) 100 02/02/20 05:00 87 19 122/71 (88) 02/02/20 04:30 93 22 116/66 (83) 100 02/02/20 04:00 90 20 122/69 (86) 100 02/02/20 04:00 Mechanical Ventilator 02/02/20 04:00 90 02/02/20 04:00 30 02/02/20 03:35 93 22 30 02/02/20 03:30 89 21 115/62 (79) 100 02/02/20 03:00 92 22 116/68 (84) 100 02/02/20 02:30 96 21 122/77 (92) 100 02/02/20 02:00 94 22 124/70 (88) 100 02/02/20 01:30 93 21 122/75 (91) 100 02/02/20 01:00 93 23 116/69 (85) 100 02/02/20 00:30 90 21 111/75 (87) 100 02/02/20 00:00 Mechanical Ventilator 02/02/20 00:00 98.3 92 22 111/69 (83) 100 02/01/20 23:30 90 20 107/59 (75) 100 02/01/20 23:17 88 24 30 02/01/20 23:00 91 22 110/70 (83) 100 02/01/20 22:30 94 21 108/70 (83) 100 02/01/20 22:00 91 20 110/61 (77) 100 02/01/20 21:30 92 20 102/60 (74) 100 02/01/20 21:00 93 20 108/73 (85) 02/01/20 20:30 90 21 107/64 (78) 100 02/01/20 20:00 98.2 100 23 112/71 (85) 100 02/01/20 20:00 Mechanical Ventilator 02/01/20 20:00 30 02/01/20 20:00 100 02/01/20 19:30 93 21 106/70 (82) 100 02/01/20 19:30 95 21 30 02/01/20 19:00 90 18 106/65 (79) 02/01/20 18:00 87 20 97/65 (76) 100 02/01/20 17:00 87 18 101/66 (78) 100 02/01/20 16:33 87 19 30 02/01/20 16:00 83 02/01/20 16:00 Mechanical Ventilator 02/01/20 16:00 30 02/01/20 16:00 98.0 87 20 100/64 (76) 100 02/01/20 15:05 81 19 30 02/01/20 15:00 80 20 103/66 (78) 100 02/01/20 14:00 89 22 101/68 (79) 100 02/01/20 13:00 98.0 83 20 113/56 (75) 100 02/01/20 12:00 83 20 113/56 (75) 100 02/01/20 12:00 30 02/01/20 12:00 87 02/01/20 12:00 Mechanical Ventilator 02/01/20 11:20 100 02/01/20 11:20 95 23 30 02/01/20 11:00 77 20 112/55 (74) 100 02/01/20 10:00 85 21 111/57 (75) 100 02/01/20 09:46 80 20 30 Intake and Output 02/01/20 02/02/20 19:00 07:00 Intake Total 1555.0 ml 1320 ml Output Total 385 ml 360 ml Balance 1170.0 ml 960 ml IV Total 1175.0 ml 660 ml Tube Feeding 380 ml 660 ml Output Urine Total 385 ml 360 ml Laboratory Tests 02/01/20 11:17: Arterial Blood pH 7.486H, Arterial Blood Partial Pressure CO2 25.7L, Arterial Blood Partial Pressure O2 101.7H, Arterial Blood HCO3 19.0L, Arterial Blood Oxygen Saturation 98.2, Arterial Blood Base Excess -3.6L, Asael Test Positive 02/02/20 06:00: White Blood Count 9.9, Red Blood Count 2.70L, Hemoglobin 7.7L, Hematocrit 22.8L, Mean Corpuscular Volume 84, Mean Corpuscular Hemoglobin 28.5, Mean Corpuscular Hemoglobin Concent 33.8, Red Cell Distribution Width 20.1H, Platelet Count 281, Mean Platelet Volume 6.9, Neutrophils (%) (Auto) , Lymphocytes (%) (Auto) , Monocytes (%) (Auto) , Eosinophils (%) (Auto) , Basophils (%) (Auto) , Neutrophils % (Manual) [Pending], Lymphocytes % (Manual) [Pending], Platelet Estimate [Pending], Platelet Morphology [Pending], Sodium Level 140, Potassium Level 3.2L, Chloride Level 109H, Carbon Dioxide Level 20L, Anion Gap 11, Blood Urea Nitrogen 12, Creatinine 0.9, Estimat Glomerular Filtration Rate > 60, Glucose Level 114H, Calcium Level 7.2L, Phosphorus Level 2.0L, Magnesium Level 1.7L, Total Bilirubin 0.3, Aspartate Amino Transf (AST/SGOT) 57H, Alanine Aminotransferase (ALT/SGPT) 32, Alkaline Phosphatase 229H, C-Reactive Protein, Quantitative 21.9H, Pro-B-Type Natriuretic Peptide 2240H, Total Protein 5.2L, Albumin 1.5L, Globulin 3.7, Albumin/Globulin Ratio 0.4L Height (Feet): 5 Height (Inches): 9.00 Weight (Pounds): 149 Assessment/Plan Problem List: (1) Altered level of consciousness ICD Codes: R40.4 - Transient alteration of awareness SNOMED: 9546530 (2) Hypernatremia ICD Codes: E87.0 - Hyperosmolality and hypernatremia SNOMED: 435160451 (3) Paraplegia ICD Codes: G82.20 - Paraplegia, unspecified SNOMED: 23085638 (4) Anemia ICD Codes: D64.9 - Anemia, unspecified SNOMED: 076150747 (5) Diabetes ICD Codes: E11.9 - Type 2 diabetes mellitus without complications SNOMED: 85057280 (6) HTN (hypertension) ICD Codes: I10 - Essential (primary) hypertension SNOMED: 59827157 (7) ARF (acute renal failure) ICD Codes: N17.9 - Acute kidney failure, unspecified SNOMED: 51752596 (8) Dehydration ICD Codes: E86.0 - Dehydration SNOMED: 68543093 (9) UTI (urinary tract infection) ICD Codes: N39.0 - Urinary tract infection, site not specified SNOMED: 14422742 (10) Failure to thrive in adult ICD Codes: R62.7 - Adult failure to thrive SNOMED: 595408498 Status: progressing, unchanged Assessment/Plan: htn azotemia anemia still low k no change dehydration afebrile Juan Diego Randall MD Feb 02, 2020 09:05
--- NOTE | 2020-02-02 09:23 | Infectious Diseases Prog Note ---
Assessment/Plan 69yo M with: +ve blood cx : Strp - probable line infection ( HD cath placed on 01/10) Recurrent resp failure, most likely 2/2 increased volume, vascular congestion, pleural effusion, less likely 2/2 infection CODE BLUE 01/28, r/o infection Large L pleural effusion 01/28 CXR: Enlarged and now quite large left pleural effusion. Increasing interstitial congestion. Stable right pleural effusion 01/29 BCx ordered Shock- likely combination septic and metabolic derangements- SP Probable UTI -01/10 u/a wbc 60-80, nit neg, leuk +3; ucx Neg -Bcx NTD Probable PNA -01/12 CXR: No significant change in bilateral patchy pulmondary opacities, concerning for pneumonia versus edemaq. Small bilateral pleural effusions. -01/10 CXR: Bilateral interstitial and airspace infiltrates versus edema persists. sp cx MRSA (S Vancomycin, bactrim, tetracycline) COVID19 neg -01/04 rapid COVID PCR neg x1 influenza PCR neg CXR: Mild interstitial vascular prominence. No focal infiltrate or consolidation. 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 Etiology not demonstrated. Empty bladder with a Mathew catheter. 3 hypoechoic lesions within the pancreatic head and body, each measuring about 5 mm. Appearance nonspecific. Bilateral pleural effusions. Echogenic liver, consistent with hepatocellular disease. Surface likely nodularity raises concern for cirrhosis. Gallbladder sludge. Negative for dilated bile ducts. Probable nonobstructive left intrarenal calculi. Multiple hepatic cysts Acute on chronic encephalopathy -CT head: 1. Markedly limited, near nondiagnostic evaluation due to motion artifact. Grossly, age-related changes and small vessel disease of aging are noted. Again grossly, no acute intracranial pathology is detected. If there is a high degree of concern or if there is concern for subtle abnormalities, magnetic resonance imaging of the brain with diffusion-weighted sequences should be performed, due to the markedly limited nature of the current study. Close clinical correlation is necessary. HTN COPD DM2 paraplegia Dementia non verbal NH resident (elan mora) Plan: Cont Zosyn # 4 (sp Code blue, possible aspiration, and Line infection) -01/18 SP vanco IV #7 -01/16 SP Cefepime #4 -01/13 SP ZOsyn #4 -01/06 SP Ceftriaxone #2 -01/04 Sp IV Vancomycin x1, Cefepime x1 -f/u cx -Monitor CBC/CMP, temperatures -Renal, cards f/u -aspiration precautions Appreciate Pulm input about large L pleural effusion Removal of HD cath and tip Cx repeat Blood , Sputum Cx D/w RN Thank you for consulting [facility]. Will continue to follow along with you. Subjective Allergies: Coded Allergies: No Known Allergies (Unverified , 03/18/19) Afebrile No Leukocytosis On Vent 30% O2 BORIS Objective Last 24 Hour Vital Signs Date Time Temp Pulse Resp B/P (MAP) Pulse Ox O2 Delivery O2 Flow Rate FiO2 02/02/20 07:00 82 24 30 02/02/20 07:00 93 20 128/72 (90) 100 02/02/20 06:30 92 21 122/65 (84) 100 02/02/20 06:00 98.5 89 20 125/76 (92) 100 02/02/20 05:30 88 21 116/67 (83) 100 02/02/20 05:00 87 19 122/71 (88) 02/02/20 04:30 93 22 116/66 (83) 100 02/02/20 04:00 90 20 122/69 (86) 100 02/02/20 04:00 Mechanical Ventilator 02/02/20 04:00 90 02/02/20 04:00 30 02/02/20 03:35 93 22 30 02/02/20 03:30 89 21 115/62 (79) 100 02/02/20 03:00 92 22 116/68 (84) 100 11/28/20 02:30 96 21 122/77 (92) 100 02/02/20 02:00 94 22 124/70 (88) 100 02/02/20 01:30 93 21 122/75 (91) 100 02/02/20 01:00 93 23 116/69 (85) 100 02/02/20 00:30 90 21 111/75 (87) 100 02/02/20 00:00 Mechanical Ventilator 02/02/20 00:00 98.3 92 22 111/69 (83) 100 02/01/20 23:30 90 20 107/59 (75) 100 02/01/20 23:17 88 24 30 02/01/20 23:00 91 22 110/70 (83) 100 02/01/20 22:30 94 21 108/70 (83) 100 02/01/20 22:00 91 20 110/61 (77) 100 02/01/20 21:30 92 20 102/60 (74) 100 02/01/20 21:00 93 20 108/73 (85) 02/01/20 20:30 90 21 107/64 (78) 100 02/01/20 20:00 98.2 100 23 112/71 (85) 100 02/01/20 20:00 Mechanical Ventilator 02/01/20 20:00 30 02/01/20 20:00 100 02/01/20 19:30 93 21 106/70 (82) 100 02/01/20 19:30 95 21 30 02/01/20 19:00 90 18 106/65 (79) 02/01/20 18:00 87 20 97/65 (76) 100 02/01/20 17:00 87 18 101/66 (78) 100 02/01/20 16:33 87 19 30 02/01/20 16:00 83 02/01/20 16:00 Mechanical Ventilator 02/01/20 16:00 30 02/01/20 16:00 98.0 87 20 100/64 (76) 100 02/01/20 15:05 81 19 30 02/01/20 15:00 80 20 103/66 (78) 100 02/01/20 14:00 89 22 101/68 (79) 100 02/01/20 13:00 98.0 83 20 113/56 (75) 100 02/01/20 12:00 83 20 113/56 (75) 100 02/01/20 12:00 30 02/01/20 12:00 87 02/01/20 12:00 Mechanical Ventilator 02/01/20 11:20 100 02/01/20 11:20 95 23 30 02/01/20 11:00 77 20 112/55 (74) 100 02/01/20 10:00 85 21 111/57 (75) 100 02/01/20 09:46 80 20 30 Height (Feet): 5 Height (Inches): 9.00 Weight (Pounds): 149 GEN: NAD HEENT: NCAT, On vent Respiratory/Chest: no respiratory distress, RRR, Abdomen: SOft, ND Microbiology Date/Time Source Procedure Growth Status 01/30/20 13:00 Blood Blood Culture - Preliminary Strep Species, Alpha Hemolytic Resulted 01/30/20 12:40 Blood Blood Culture - Preliminary NO GROWTH AFTER 24 HOURS Resulted Laboratory Tests Test 02/01/20 11:17 02/02/20 06:00 Arterial Blood pH 7.486 (7.350-7.450) Arterial Blood Partial Pressure CO2 25.7 mmHg (35.0-45.0) L Arterial Blood Partial Pressure O2 101.7 mmHg (75.0-100.0) H Arterial Blood HCO3 19.0 mmol/L (22.0-26.0) L Arterial Blood Oxygen Saturation 98.2 % (95-100) Arterial Blood Base Excess -3.6 (-2-2) L Asael Test Positive White Blood Count 9.9 K/UL (4.8-10.8) Red Blood Count 2.70 M/UL (4.70-6.10) L Hemoglobin 7.7 G/DL (14.2-18.0) L Hematocrit 22.8 % (42.0-52.0) L Mean Corpuscular Volume 84 FL (80-99) Mean Corpuscular Hemoglobin 28.5 PG (27.0-31.0) Mean Corpuscular Hemoglobin Concent 33.8 G/DL (32.0-36.0) Red Cell Distribution Width 20.1 % (11.6-14.8) H Platelet Count 281 K/UL (150-450) Mean Platelet Volume 6.9 FL (6.5-10.1) Neutrophils (%) (Auto) % (45.0-75.0) Lymphocytes (%) (Auto) % (20.0-45.0) Monocytes (%) (Auto) % (1.0-10.0) Eosinophils (%) (Auto) % (0.0-3.0) Basophils (%) (Auto) % (0.0-2.0) Neutrophils % (Manual) Pending Lymphocytes % (Manual) Pending Platelet Estimate Pending Platelet Morphology Pending Sodium Level 140 MMOL/L (136-145) Potassium Level 3.2 MMOL/L (3.5-5.1) L Chloride Level 109 MMOL/L (98-107) H Carbon Dioxide Level 20 MMOL/L (21-32) L Anion Gap 11 mmol/L (5-15) Blood Urea Nitrogen 12 mg/dL (7-18) Creatinine 0.9 MG/DL (0.55-1.30) Estimat Glomerular Filtration Rate > 60 mL/min (>60) Glucose Level 114 MG/DL (74-106) H Calcium Level 7.2 MG/DL (8.5-10.1) L Phosphorus Level 2.0 MG/DL (2.5-4.9) L Magnesium Level 1.7 MG/DL (1.8-2.4) L Total Bilirubin 0.3 MG/DL (0.2-1.0) Aspartate Amino Transf (AST/SGOT) 57 U/L (15-37) H Alanine Aminotransferase (ALT/SGPT) 32 U/L (12-78) Alkaline Phosphatase 229 U/L (46-116) H C-Reactive Protein, Quantitative 21.9 mg/dL (0.00-0.90) H Pro-B-Type Natriuretic Peptide 2240 pg/mL (0-125) H Total Protein 5.2 G/DL (6.4-8.2) L Albumin 1.5 G/DL (3.4-5.0) L Globulin 3.7 g/dL Albumin/Globulin Ratio 0.4 (1.0-2.7) L Current Medications Medications (Trade) Dose Ordered Sig/Jesse Route PRN Reason Start Time Stop Time Status Last Admin Dose Admin Acetaminophen (Tylenol) 650 mg Q4H PRN ORAL PRNH/TEMP 01/05/20 20:15 02/04/20 20:14 01/12/20 03:10 Bisacodyl (Dulcolax) 10 mg DAILY PRN RECTAL Constipation 01/05/20 20:15 04/04/20 20:14 Chlorhexidine Gluconate (Navya-Hex 2%) 1 applic DAILY@2000 TOPIC 01/11/20 20:00 04/10/20 19:59 02/01/20 20:00 Dextrose (Dextrose 50%) 25 ml Q30M PRN IV Hypoglycemia 01/05/20 20:15 04/04/20 20:14 01/24/20 23:53 Dextrose (Dextrose 50%) 50 ml Q30M PRN IV Hypoglycemia 01/05/20 20:15 04/04/20 20:14 Dextrose/Sodium Chloride 1,000 ml @ 60 mls/hr [id number] IV 01/24/20 13:30 02/23/20 13:29 02/01/20 21:00 Heparin Sodium/ Sodium Chloride (Heparin 1000 units/500ml Premix) 1,000 unit ONCE PRN INJ radiology procedure 02/01/20 13:00 02/03/20 12:59 Lansoprazole (Prevacid) 30 mg Q12HR NG 01/28/20 21:00 02/27/20 20:59 02/01/20 21:29 Lidocaine HCl (Xylocaine 1% 30ml) 30 ml ONCE PRN INJ radiology procedure 02/01/20 13:00 02/03/20 12:59 Linaclotide (Linzess) 290 mcg BEFORE BREAKFAST ORAL 01/10/20 06:30 04/09/20 06:29 02/02/20 05:50 Loperamide HCl (Imodium) 2 mg Q6H PRN NG Diarrhea 01/27/20 15:45 02/26/20 15:44 01/27/20 17:58 Magnesium Sulfate 100 ml @ 100 mls/hr Q1H IVPB 02/02/20 09:00 02/02/20 10:59 02/02/20 09:05 Metoclopramide HCl (Reglan) 10 mg EVERY 6 HOURS NG 01/19/20 12:00 02/18/20 11:59 02/02/20 05:50 Metoclopramide HCl (Reglan) 10 mg Q6H PRN IVP Nausea & Vomiting 01/16/20 13:00 02/15/20 12:59 Midodrine (Pro-Amatine) 10 mg Q8HR NG 01/20/20 22:00 04/13/20 17:59 02/02/20 05:50 Ondansetron HCl (Zofran) 4 mg Q6H PRN IVP Nausea & Vomiting 01/10/20 06:30 02/09/20 06:29 Piperacillin Sod/ Tazobactam Sod 3.375 gm/Sodium Chloride 110 ml @ 27.5 mls/hr EVERY 8 HOURS IVPB 01/30/20 14:00 02/04/20 13:59 02/02/20 05:50 Polyethylene Glycol (Miralax) 17 gm BEDTIME NG 01/11/20 21:00 02/08/20 20:59 01/29/20 20:39 Potassium Phosphate 250 ml @ 62.5 mls/hr Q4H IVPB 02/02/20 10:00 02/02/20 17:59 Sennosides (Senokot) 8.6 mg QHS NG 01/11/20 21:00 02/04/20 20:59 01/29/20 20:39 Vitamin D (Vitamin D) 3,000 intlu DAILY GT 01/19/20 12:00 02/18/20 11:59 02/02/20 09:03 Demario Crowley MD Feb 02, 2020 09:22
[2020-02-02] MEDS: Potassium Phosphate 15mm/250ml 250 ML IVPB SCH ×2 (10:38→14:49)
--- NOTE | 2020-02-02 13:26 | Pulmonolgy Critical Care Note ---
Critical Care - Asmt/Plan Assessment/Plan: Pulmonary Progress Note Assessment/Plan Assessment/Plan acute respiratory failure bacteremia diabetes hypertension ARF toxic met encephalopathy patchy pneumonia pleural effusions PLAN care noted IV antibiotics respiratory care Ventilatory support reviewed meds supportive care suction no wean for today oxygen therapy prognosis guarded nutrition off load follow up labs and acid base medications/laboratory data/nursing notes/ICU care reviewed in detail note reviewed and edited care discussed with RN and RT ICU time spent >40 minutes Critical Care - Subjective Interval Events: stable on vent sedated ROS Limited/Unobtainable: Yes Condition: critical EKG Rhythm: Sinus Rhythm Critical Care - Objective ET-Tube: 7.0 ET Position: 24 Vital Signs noted Objective: WDWN NAD oral ETT reduced breath sounds bilaterally with some rhonchi [id number] without MRG NABS nontender feeding tub no CCE poor LOC Laboratory Tests noted Imaging noted Critical Care - Objective Last 24 Hour Vital Signs Date Time Temp Pulse Resp B/P (MAP) Pulse Ox O2 Delivery O2 Flow Rate FiO2 02/02/20 12:00 91 18 138/80 (99) 100 02/02/20 12:00 30 02/02/20 12:00 86 02/02/20 11:20 77 22 30 02/02/20 11:00 89 22 137/72 (93) 100 02/02/20 10:00 83 19 116/64 (81) 100 02/02/20 09:00 86 20 113/70 (84) 100 02/02/20 08:13 85 02/02/20 08:00 Mechanical Ventilator 02/02/20 08:00 30 02/02/20 08:00 98.7 87 18 116/67 (83) 100 02/02/20 07:00 82 24 30 02/02/20 07:00 93 20 128/72 (90) 100 02/02/20 06:30 92 21 122/65 (84) 100 02/02/20 06:00 98.5 89 20 125/76 (92) 100 02/02/20 05:30 88 21 116/67 (83) 100 02/02/20 05:00 87 19 122/71 (88) 02/02/20 04:30 93 22 116/66 (83) 100 02/02/20 04:00 90 20 122/69 (86) 100 02/02/20 04:00 Mechanical Ventilator 02/02/20 04:00 90 02/02/20 04:00 30 02/02/20 03:35 93 22 30 02/02/20 03:30 89 21 115/62 (79) 100 02/02/20 03:00 92 22 116/68 (84) 100 02/02/20 02:30 96 21 122/77 (92) 100 02/02/20 02:00 94 22 124/70 (88) 100 02/02/20 01:30 93 21 122/75 (91) 100 02/02/20 01:00 93 23 116/69 (85) 100 02/02/20 00:30 90 21 111/75 (87) 100 02/02/20 00:00 Mechanical Ventilator 02/02/20 00:00 98.3 92 22 111/69 (83) 100 02/01/20 23:30 90 20 107/59 (75) 100 02/01/20 23:17 88 24 30 02/01/20 23:00 91 22 110/70 (83) 100 02/01/20 22:30 94 21 108/70 (83) 100 02/01/20 22:00 91 20 110/61 (77) 100 02/01/20 21:30 92 20 102/60 (74) 100 02/01/20 21:00 93 20 108/73 (85) 02/01/20 20:30 90 21 107/64 (78) 100 02/01/20 20:00 98.2 100 23 112/71 (85) 100 02/01/20 20:00 Mechanical Ventilator 02/01/20 20:00 30 02/01/20 20:00 100 02/01/20 19:30 93 21 106/70 (82) 100 02/01/20 19:30 95 21 30 02/01/20 19:00 90 18 106/65 (79) 02/01/20 18:00 87 20 97/65 (76) 100 02/01/20 17:00 87 18 101/66 (78) 100 02/01/20 16:33 87 19 30 02/01/20 16:00 83 02/01/20 16:00 Mechanical Ventilator 02/01/20 16:00 30 02/01/20 16:00 98.0 87 20 100/64 (76) 100 02/01/20 15:05 81 19 30 02/01/20 15:00 80 20 103/66 (78) 100 02/01/20 14:00 89 22 101/68 (79) 100 Accucheck: 108 Critical Care - Subjective ROS Limited/Unobtainable: No FI02: 30 Vent Support Breath Rate: 12 Vent Support Mode: AC Vent Tidal Volume: 500 Sputum Amount: Moderate PEEP: 5.0 PIP: 23 Tube Feeding Amount: 55 I&O: Intake and Output 02/01/20 02/02/20 19:00 07:00 Intake Total 1555.0 ml 1320 ml Output Total 385 ml 360 ml Balance 1170.0 ml 960 ml IV Total 1175.0 ml 660 ml Tube Feeding 380 ml 660 ml Output Urine Total 385 ml 360 ml ET-Tube: 7.0 ET Position: 24 Demario Ring MD Feb 02, 2020 13:26
[2020-02-02] MEDS: D5 1/2NS 1,000 ML IV SCH (14:49)
--- NOTE | 2020-02-02 14:51 | Surgery Progress Note ---
Surgery Progress Note Subjective Procedure Performed Right femoral temporary hemodialysis catheter insertion Additional Comments right fem line removed at bedside no n/v on support new line in place cont HD Objective Last 24 Hour Vital Signs Date Time Temp Pulse Resp B/P (MAP) Pulse Ox O2 Delivery O2 Flow Rate FiO2 02/02/20 14:00 87 17 126/66 (86) 100 02/02/20 13:00 80 17 123/85 (98) 100 02/02/20 12:00 91 18 138/80 (99) 100 02/02/20 12:00 Mechanical Ventilator 02/02/20 12:00 30 02/02/20 12:00 86 02/02/20 11:20 77 22 30 02/02/20 11:00 89 22 137/72 (93) 100 02/02/20 10:00 83 19 116/64 (81) 100 02/02/20 09:00 86 20 113/70 (84) 100 02/02/20 08:13 85 02/02/20 08:00 Mechanical Ventilator 02/02/20 08:00 30 02/02/20 08:00 98.7 87 18 116/67 (83) 100 02/02/20 07:00 82 24 30 02/02/20 07:00 93 20 128/72 (90) 100 02/02/20 06:30 92 21 122/65 (84) 100 02/02/20 06:00 98.5 89 20 125/76 (92) 100 02/02/20 05:30 88 21 116/67 (83) 100 02/02/20 05:00 87 19 122/71 (88) 02/02/20 04:30 93 22 116/66 (83) 100 02/02/20 04:00 90 20 122/69 (86) 100 02/02/20 04:00 Mechanical Ventilator 02/02/20 04:00 90 02/02/20 04:00 30 02/02/20 03:35 93 22 30 02/02/20 03:30 89 21 115/62 (79) 100 02/02/20 03:00 92 22 116/68 (84) 100 02/02/20 02:30 96 21 122/77 (92) 100 02/02/20 02:00 94 22 124/70 (88) 100 02/02/20 01:30 93 21 122/75 (91) 100 02/02/20 01:00 93 23 116/69 (85) 100 02/02/20 00:30 90 21 111/75 (87) 100 02/02/20 00:00 Mechanical Ventilator 02/02/20 00:00 98.3 92 22 111/69 (83) 100 02/01/20 23:30 90 20 107/59 (75) 100 02/01/20 23:17 88 24 30 02/01/20 23:00 91 22 110/70 (83) 100 02/01/20 22:30 94 21 108/70 (83) 100 02/01/20 22:00 91 20 110/61 (77) 100 02/01/20 21:30 92 20 102/60 (74) 100 02/01/20 21:00 93 20 108/73 (85) 02/01/20 20:30 90 21 107/64 (78) 100 02/01/20 20:00 98.2 100 23 112/71 (85) 100 02/01/20 20:00 Mechanical Ventilator 02/01/20 20:00 30 02/01/20 20:00 100 02/01/20 19:30 93 21 106/70 (82) 100 02/01/20 19:30 95 21 30 02/01/20 19:00 90 18 106/65 (79) 02/01/20 18:00 87 20 97/65 (76) 100 02/01/20 17:00 87 18 101/66 (78) 100 02/01/20 16:33 87 19 30 02/01/20 16:00 83 02/01/20 16:00 Mechanical Ventilator 02/01/20 16:00 30 02/01/20 16:00 98.0 87 20 100/64 (76) 100 02/01/20 15:05 81 19 30 02/01/20 15:00 80 20 103/66 (78) 100 I&O Intake and Output 02/01/20 02/02/20 19:00 07:00 Intake Total 1555.0 ml 1320 ml Output Total 385 ml 360 ml Balance 1170.0 ml 960 ml IV Total 1175.0 ml 660 ml Tube Feeding 380 ml 660 ml Output Urine Total 385 ml 360 ml Dressing: saturated Cardiovascular: RSR Respiratory: decreased breath sounds Abdomen: soft, non-tender, present bowel sounds Extremities: no tenderness, no cyanosis Laboratory Tests Test 02/02/20 06:00 White Blood Count 9.9 K/UL (4.8-10.8) Red Blood Count 2.70 M/UL (4.70-6.10) L Hemoglobin 7.7 G/DL (14.2-18.0) L Hematocrit 22.8 % (42.0-52.0) L Mean Corpuscular Volume 84 FL (80-99) Mean Corpuscular Hemoglobin 28.5 PG (27.0-31.0) Mean Corpuscular Hemoglobin Concent 33.8 G/DL (32.0-36.0) Red Cell Distribution Width 20.1 % (11.6-14.8) H Platelet Count 281 K/UL (150-450) Mean Platelet Volume 6.9 FL (6.5-10.1) Neutrophils (%) (Auto) % (45.0-75.0) Lymphocytes (%) (Auto) % (20.0-45.0) Monocytes (%) (Auto) % (1.0-10.0) Eosinophils (%) (Auto) % (0.0-3.0) Basophils (%) (Auto) % (0.0-2.0) Differential Total Cells Counted 100 Neutrophils % (Manual) 83 % (45-75) H Lymphocytes % (Manual) 13 % (20-45) L Monocytes % (Manual) 4 % (1-10) Eosinophils % (Manual) 0 % (0-3) Basophils % (Manual) 0 % (0-2) Band Neutrophils 0 % (0-8) Platelet Estimate Adequate Platelet Morphology Normal Polychromasia 1+ Hypochromasia 1+ Anisocytosis 2+ Sodium Level 140 MMOL/L (136-145) Potassium Level 3.2 MMOL/L (3.5-5.1) L Chloride Level 109 MMOL/L (98-107) H Carbon Dioxide Level 20 MMOL/L (21-32) L Anion Gap 11 mmol/L (5-15) Blood Urea Nitrogen 12 mg/dL (7-18) Creatinine 0.9 MG/DL (0.55-1.30) Estimat Glomerular Filtration Rate > 60 mL/min (>60) Glucose Level 114 MG/DL (74-106) H Calcium Level 7.2 MG/DL (8.5-10.1) L Phosphorus Level 2.0 MG/DL (2.5-4.9) L Magnesium Level 1.7 MG/DL (1.8-2.4) L Total Bilirubin 0.3 MG/DL (0.2-1.0) Aspartate Amino Transf (AST/SGOT) 57 U/L (15-37) H Alanine Aminotransferase (ALT/SGPT) 32 U/L (12-78) Alkaline Phosphatase 229 U/L (46-116) H C-Reactive Protein, Quantitative 21.9 mg/dL (0.00-0.90) H Pro-B-Type Natriuretic Peptide 2240 pg/mL (0-125) H Total Protein 5.2 G/DL (6.4-8.2) L Albumin 1.5 G/DL (3.4-5.0) L Globulin 3.7 g/dL Albumin/Globulin Ratio 0.4 (1.0-2.7) L Plan Problems: (1) Altered level of consciousness Assessment & Plan: weaning vent unsure if will be safe for extubation consider trach (2) Hypovolemic shock Assessment & Plan: resuscitation extubated monitor respiratory keep hob elevated supplemental O2 coded intubated in icu prognosis guarded ?code status change ?trach Gallbladder demonstrates sludge. No stones, wall thickening, nor pericholecystic fluid. Patient unable to report Wilson's sign Common bile duct measures 3 mm in diameter. No intrahepatic biliary ductal dilatation. Liver demonstrates coarsened echogenicity and surface nodularity. It demonstrates multiple cysts. Portal vein and hepatic veins are patent. The pancreas demonstrates 3 hypoechoic lesions in the head and body, measuring approximately 5 mm in diameter each. Spleen is unremarkable, poorly visualized. Left kidney measures 11.4 cm in length. Right kidney measures 11.3 cm length. Both kidneys demonstrate normal echogenicity. There is severe right and moderate left hydronephrosis. Echogenic foci are seen in the left renal sinus and collecting system. Bladder is empty, contains a Mathew catheter. Non-aneurysmal abdominal aorta . There are bilateral pleural effusions Impression: Bilateral right greater than left hydronephrosis, increased since prior study of 03/20/2019. Etiology not demonstrated Empty bladder with a Mathew catheter 3 hypoechoic lesions within the pancreatic head and body, each measuring about 5 mm. Appearance nonspecific. Recommend further evaluation with pancreas protocol MRI Bilateral pleural effusions Echogenic liver, consistent with hepatocellular disease. Surface likely nodularity raises concern for cirrhosis Gallbladder sludge. Negative for dilated bile ducts Probable nonobstructive left intrarenal calculi Multiple hepatic cysts (3) Lactic acid acidosis (4) Hypernatremia (5) Paraplegia (6) Anemia Assessment & Plan: no active bleeding noted no large hematoma dressings okay likely related to heme will monitor transfuse prbc with HD trend labs thank you (7) Diabetes (8) Weak (9) HTN (hypertension) (10) ARF (acute renal failure) (11) Hypercalcemia (12) Hyperuricemia (13) Dehydration (14) UTI (urinary tract infection) (15) Failure to thrive in adult Assessment & Plan: patient identified to have DTI on bilateral heels right with 5cm x 4cm area of dti not open no drainage no signs of infection left with 3cm x 2cm. pillow under leg optifoam dressings nutritional optimization will follow no acute surgery DAILY ESTIMATED NEEDS: Needs based on underweight, suspected wt loss, HD, CRITICAL CARE/ 57.6kg 25-33 kcals/kg 8597-9738 total kcals 1.2-2 g protein/kg 69-115 g total protein 25-30 mL/kg 8731-2439 total fluid mLs NUTRITION DIAGNOSIS: *Increased kcal and pro needs r/t underweight status, suspected significant wt loss as evidenced by pt @ 71% IBW w/ BMI 17.2, underweight per guidelines, w/ suspected signficant wt loss of 30lbs/19% in 10 months. * Swallowing difficulty R/T dysphagia, respiratory status as evidenced by s/p NGT insertion (01/08), now NPO, s/p code blue (01/10), orally intubated. CURRENT TF:NPO ENTERAL NUTRITION RECOMMENDATIONS: WHEN HEMODYNAMICALLY STABLE: Nepro @ 40ml/hr x 24 hrs to provide 960ml, 1728kcal, 77g prot, 698ml free water WHEN HEMODYNAMICALLY STABLE AND MEDICALLY APPROPRIATE TO FEED: -> initiate TF @ 5ml/hr x 6hrs, advance slowly 5ml q 4-6 hrs as tolerated to goal rate -> HOB over 30 degrees/ water flush per MD WITHOUT HEMODYNAMIC STABILITY -> If medically appropriate to feed, rec trophic feeding of Nepro @ 5ml/hr x 24 hrs to maintain gut integrity (16) Pelvic mass Assessment & Plan: invasive pelvic mass likely prostate necrotic nodes likely spread recommend colonoscopy given invasion possible to rectum oncology input thank you There is a large pelvic mass which is cephalad to but inseparable from the prostate. This also is inseparable from the posterior wall of the bladder and there appears to be circumferential bladder wall thickening. This mass also appears to involve the seminal vesicles. This measures approximately 8.8 cm transverse by 10 cm craniocaudad by 7.4 cm AP. The periphery of this mass is very lobulated. The mass may also invade the adjacent rectum. There is bilateral iliac chain lymphadenopathy, with nodes measuring up to 3 cm in diameter. Some of these nodes are very low in attenuation indicating that they are necrotic. There is also retroperitoneal lymphadenopathy. There is severe right and moderate left hydronephrosis and bilateral hydroureter. The dilated ureters terminate at the level of the mass. No intrinsic renal parenchymal abnormality. The pancreas is unremarkable. No findings corresponding to the areas of low-attenuation described on prior sonogram are evident. No pancreatic ductal dilatation is evident. The liver demonstrates multiple cysts. The gallbladder, bile ducts, spleen, adrenals are unremarkable. The bones demonstrate diffuse involvement with multiple mixed osteolytic/osteosclerotic lesions, mostly sclerotic component predominating. There is a right groin dialysis catheter in place, tip at the level of the iliac venous confluence. There is a nasogastric tube,, tip in the stomach. There is a Mathew catheter. There is a rectal tube lying outside the patient with the balloon inflated within the inner gluteal fold. There are bilateral pleural effusions. There is compressive atelectasis of most if not all of both lower lobes. 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 Compressive atelectasis of most of not all of both lower lobes Other findings as noted, including multiple liver cysts Lázaro Jenkins Feb 02, 2020 14:51
--- NOTE | 2020-02-02 15:27 | Cardiac Electrophysiology PN ---
Assessment/Plan Assessment/Plan 1. Altered mental status due to severe dehydration in view of sodium of 160 and acute renal failure. On IV fluids and IV antibiotics. Ruled out for [place]. 2. Septic shock, off levophed and on iv Abx On Midodrine 10 tid 3. History of CVA, off Plavix in view of hematuria. 4. Respiratory failure, Extubated 01/22 and reintubated 01/29/20 Likely need tracheostomy 5. Diabetes. 6. Acute renal failure. Cr 4.2. Had HD once only on 01/11/20. No more HD needed and Cr 1.2 7. Hematuria 8. Anemia with Hb 5.8 and coffee ground emesis. FU Dr Bueno 9. Shock liver with increase AST>2000 10. Metastatic prostate cancer -- w psa [id number] with a Large pelvic mass involving the prostate, bladder, seminal vesicles, presumably representing prostatic malignancy Severe right and moderate left hydronephrosis and bilateral hydroureter, due to ureteral obstruction by the above mass 11. Dysphagia, NGT feeding. PEG pending after Trach KARLO RN and Dr Biswas Subjective Subjective Coded 01/19 for respiratory failure followed by bradycardia and PEA. Extubated 01/23/20. PEG yesterday cancelled due to respiratory issue Had [employer] and then had asystole and was intubated and started on Levophed. Now off Levo and off sedation and no restraints. PEG placement postponed to after tracheostomy Mega removed from Right FV and placed in Right IJ Objective Last 24 Hour Vital Signs Date Time Temp Pulse Resp B/P (MAP) Pulse Ox O2 Delivery O2 Flow Rate FiO2 02/02/20 15:00 79 19 124/72 (89) 100 02/02/20 14:00 87 17 126/66 (86) 100 02/02/20 13:00 80 17 123/85 (98) 100 02/02/20 12:00 91 18 138/80 (99) 100 02/02/20 12:00 Mechanical Ventilator 02/02/20 12:00 30 02/02/20 12:00 86 02/02/20 11:20 77 22 30 02/02/20 11:00 89 22 137/72 (93) 100 02/02/20 10:00 83 19 116/64 (81) 100 02/02/20 09:00 86 20 113/70 (84) 100 02/02/20 08:13 85 02/02/20 08:00 Mechanical Ventilator 02/02/20 08:00 30 02/02/20 08:00 98.7 87 18 116/67 (83) 100 02/02/20 07:00 82 24 30 02/02/20 07:00 93 20 128/72 (90) 100 02/02/20 06:30 92 21 122/65 (84) 100 02/02/20 06:00 98.5 89 20 125/76 (92) 100 02/02/20 05:30 88 21 116/67 (83) 100 02/02/20 05:00 87 19 122/71 (88) 02/02/20 04:30 93 22 116/66 (83) 100 02/02/20 04:00 90 20 122/69 (86) 100 02/02/20 04:00 Mechanical Ventilator 02/02/20 04:00 90 02/02/20 04:00 30 02/02/20 03:35 93 22 30 02/02/20 03:30 89 21 115/62 (79) 100 02/02/20 03:00 92 22 116/68 (84) 100 02/02/20 02:30 96 21 122/77 (92) 100 02/02/20 02:00 94 22 124/70 (88) 100 02/02/20 01:30 93 21 122/75 (91) 100 02/02/20 01:00 93 23 116/69 (85) 100 02/02/20 00:30 90 21 111/75 (87) 100 02/02/20 00:00 Mechanical Ventilator 02/02/20 00:00 98.3 92 22 111/69 (83) 100 02/01/20 23:30 90 20 107/59 (75) 100 02/01/20 23:17 88 24 30 02/01/20 23:00 91 22 110/70 (83) 100 02/01/20 22:30 94 21 108/70 (83) 100 02/01/20 22:00 91 20 110/61 (77) 100 02/01/20 21:30 92 20 102/60 (74) 100 02/01/20 21:00 93 20 108/73 (85) 02/01/20 20:30 90 21 107/64 (78) 100 02/01/20 20:00 98.2 100 23 112/71 (85) 100 02/01/20 20:00 Mechanical Ventilator 02/01/20 20:00 30 02/01/20 20:00 100 02/01/20 19:30 93 21 106/70 (82) 100 02/01/20 19:30 95 21 30 02/01/20 19:00 90 18 106/65 (79) 02/01/20 18:00 87 20 97/65 (76) 100 02/01/20 17:00 87 18 101/66 (78) 100 02/01/20 16:33 87 19 30 02/01/20 16:00 83 02/01/20 16:00 Mechanical Ventilator 02/01/20 16:00 30 02/01/20 16:00 98.0 87 20 100/64 (76) 100 Intake and Output 02/01/20 02/02/20 19:00 07:00 Intake Total 1555.0 ml 1320 ml Output Total 385 ml 360 ml Balance 1170.0 ml 960 ml IV Total 1175.0 ml 660 ml Tube Feeding 380 ml 660 ml Output Urine Total 385 ml 360 ml Laboratory Tests Test 02/02/20 06:00 White Blood Count 9.9 K/UL (4.8-10.8) Red Blood Count 2.70 M/UL (4.70-6.10) L Hemoglobin 7.7 G/DL (14.2-18.0) L Hematocrit 22.8 % (42.0-52.0) L Mean Corpuscular Volume 84 FL (80-99) Mean Corpuscular Hemoglobin 28.5 PG (27.0-31.0) Mean Corpuscular Hemoglobin Concent 33.8 G/DL (32.0-36.0) Red Cell Distribution Width 20.1 % (11.6-14.8) H Platelet Count 281 K/UL (150-450) Mean Platelet Volume 6.9 FL (6.5-10.1) Neutrophils (%) (Auto) % (45.0-75.0) Lymphocytes (%) (Auto) % (20.0-45.0) Monocytes (%) (Auto) % (1.0-10.0) Eosinophils (%) (Auto) % (0.0-3.0) Basophils (%) (Auto) % (0.0-2.0) Differential Total Cells Counted 100 Neutrophils % (Manual) 83 % (45-75) H Lymphocytes % (Manual) 13 % (20-45) L Monocytes % (Manual) 4 % (1-10) Eosinophils % (Manual) 0 % (0-3) Basophils % (Manual) 0 % (0-2) Band Neutrophils 0 % (0-8) Platelet Estimate Adequate Platelet Morphology Normal Polychromasia 1+ Hypochromasia 1+ Anisocytosis 2+ Sodium Level 140 MMOL/L (136-145) Potassium Level 3.2 MMOL/L (3.5-5.1) L Chloride Level 109 MMOL/L (98-107) H Carbon Dioxide Level 20 MMOL/L (21-32) L Anion Gap 11 mmol/L (5-15) Blood Urea Nitrogen 12 mg/dL (7-18) Creatinine 0.9 MG/DL (0.55-1.30) Estimat Glomerular Filtration Rate > 60 mL/min (>60) Glucose Level 114 MG/DL (74-106) H Calcium Level 7.2 MG/DL (8.5-10.1) L Phosphorus Level 2.0 MG/DL (2.5-4.9) L Magnesium Level 1.7 MG/DL (1.8-2.4) L Total Bilirubin 0.3 MG/DL (0.2-1.0) Aspartate Amino Transf (AST/SGOT) 57 U/L (15-37) H Alanine Aminotransferase (ALT/SGPT) 32 U/L (12-78) Alkaline Phosphatase 229 U/L (46-116) H C-Reactive Protein, Quantitative 21.9 mg/dL (0.00-0.90) H Pro-B-Type Natriuretic Peptide 2240 pg/mL (0-125) H Total Protein 5.2 G/DL (6.4-8.2) L Albumin 1.5 G/DL (3.4-5.0) L Globulin 3.7 g/dL Albumin/Globulin Ratio 0.4 (1.0-2.7) L Objective HEAD AND NECK: NGT in place. Orally intubated LUNGS: Coarse rhonchi. CARDIOVASCULAR: Regular S1 and S2 with no gallop. ABDOMEN: Soft. EXTREMITIES: No pitting edema. Kevin Lopez MD Feb 02, 2020 15:27
--- NOTE | 2020-02-02 16:07 | Nephrology Progress Note ---
Assessment/Plan Problem List: (1) ARF (acute renal failure) (2) Hypernatremia (3) Hypovolemic shock (4) Altered level of consciousness (5) Hypercalcemia (6) Hyperuricemia (7) Pelvic mass Assessment: Prostate cancer Assessment Acute renal failure Possible underlying chronic kidney failure Severe dehydration Hypernatremia indicative of severe water deficit Severe hyperuricemia, partly due to dehydration and renal failure Acute metabolic and toxic encephalopathy Mild, malnutrition Anemia Lactic acid, possible sepsis Hypercalcemia Plan February 01: Remains intubated and on ventilator. Abnormal electrolytes addressed. Continue per consultants. January 31: Continues to be on ventilator. Labs reviewed. Abnormal electrolyte addressed. Continue per consultants. January 30: Patient remains intubated. On no pressors. Abnormal electrolyte addressed. Discussed with RN. Apparently due for PEG insertion tomorrow. Continue per consultants. January 29: Patient was coded late last night. Now in ICU intubated. Was on pressors for a short period of time. Is off pressors now. Labs reviewed. Abnormal electrolyte addressed. Continue per consultants. January 28: Labs reviewed. Abnormal electrolyte addressed. Continue per consultants. January 27: Labs reviewed. Abnormal electrolyte addressed. Low potassium low phosphorus and low magnesium replaced. Continue per consultants. January 26: No labs drawn today. Status quo. Continue per consultants. Will check renal parameters tomorrow. January 25: Renal parameters stable. On Venturi mask. Continue per current management. January 24: Renal parameters stable. On Venturi mask. Discussed with RN. Due for PEG insertion today. January 23: Stable from renal standpoint of view. On Venturi mask. Low magnesium addressed. Continue per consultants. January 22: Patient off pressors. Patient extubated. Labs reviewed. Renal parameters are stable. January 21: Patient on low-dose pressors. Remains hypotensive. Renal parameters stable. Weaning trial in process. Mental status remains poor. January 20: Patient in ICU. Intubated. Full code. Has advanced prostate cancer. On IV Lasix drip. Low magnesium and low phosphorus and low potassium noted and addressed. Continue per consultants. January 19: Patient in ICU. Intubated. Was coded yesterday. Labs reviewed. Medication list reviewed and adjusted. Continue per consultants. Patient full code. Prognosis poor. PSA over 2700 January 18: Labs reviewed. IV fluid discontinued. IV calcium dose decreased. Midodrine dose decreased. Reglan and Protonix changed to GT route. Vitamin D initiated. Continue to monitor renal parameters and calcium level. January 17: Labs reviewed. Abnormal electrolyte addressed. Continue per consultants. January 16: Patient now in telemetry. Labs pending. Continue to monitor renal parameters. Continue per consultants. January 15: Still in ICU. Doing well post extubation. Renal parameters improving. Not requiring any more dialysis treatment after the first dialysis treatment. Medications reviewed. Continue per consultants. January 14: Remains in ICU. Tolerating extubation. Labs reviewed. Abnormal electrolytes addressed. Serum creatinine lowering. Continue per current management. Stop Phos binders. Increase calcium IV. January 13: In ICU. Now extubated. Only dialyzed once. Urine output maintained. Serum creatinine down to 2.5. Patient has NG tube. Continue to monitor renal parameters. Continue per consultants. Abnormal electrolytes addressed. January 12: Remains in ICU. Intubated. Transfused yesterday. Abnormal electrolytes addressed. Dialyzed once January 10. Serum creatinine stable. Will adjust IV fluid. Monitor renal parameters. Dialysis as needed. Calcium gluconate IV ordered. Ionized calcium level ordered with tomorrow's labs. January 11: Patient in ICU. Intubated. On Levophed. Hemoglobin low. Due for transfusion. Electrolyte abnormalities noted and addressed. Patient was dialyzed yesterday. Will check lab tomorrow. Dialysis as needed. Discussed with SELIN Srivastava. January 10: Patient is doing poorly. Blood pressure low. ABG abnormal with metabolic acidosis. IV sodium bicarb given. Serum creatinine reno. Patient has acute renal failure. Nontunneled dialysis catheter replacement ordered.. Patient need life saving dialysis treatment SRINIVAS. January 09: Labs reviewed. IV D5 and a half with sodium bicarb initiated. Serum creatinine higher. Continue to monitor renal parameters. NG feeding was changed to Nepro. Patient remains full code. Poor prognosis. January 08: Labs reviewed. IV D5W discontinued. 500 cc 3% saline ordered. NG tube for feeding and for medications. Allopurinol dose increased. Continue to monitor renal parameters serum calcium and phosphorus. January 07: Labs reviewed. Serum calcium remains elevated. Uric acid still elevated. Will give pamidronate 60 mg IV piggyback once for hypercalcemia. Continue to monitor renal parameters. Continue D5W 150 cc an hour. Start Bicitra 30 cc p.o. every 6 hours. Add allopurinol D5W IV hydration Albumin bolus N.p.o. until able to take p.o. Antibiotics Monitor renal parameters monitor calcium, monitor uric acid Subjective ROS Limited/Unobtainable: Yes Objective Objective Last 24 Hour Vital Signs Date Time Temp Pulse Resp B/P (MAP) Pulse Ox O2 Delivery O2 Flow Rate FiO2 02/02/20 15:20 87 24 30 02/02/20 15:00 79 19 124/72 (89) 100 02/02/20 14:00 87 17 126/66 (86) 100 02/02/20 13:00 80 17 123/85 (98) 100 02/02/20 12:00 91 18 138/80 (99) 100 02/02/20 12:00 Mechanical Ventilator 02/02/20 12:00 30 02/02/20 12:00 86 02/02/20 11:20 77 22 30 02/02/20 11:00 89 22 137/72 (93) 100 02/02/20 10:00 83 19 116/64 (81) 100 02/02/20 09:00 86 20 113/70 (84) 100 02/02/20 08:13 85 02/02/20 08:00 Mechanical Ventilator 02/02/20 08:00 30 02/02/20 08:00 98.7 87 18 116/67 (83) 100 02/02/20 07:00 82 24 30 02/02/20 07:00 93 20 128/72 (90) 100 02/02/20 06:30 92 21 122/65 (84) 100 02/02/20 06:00 98.5 89 20 125/76 (92) 100 02/02/20 05:30 88 21 116/67 (83) 100 02/02/20 05:00 87 19 122/71 (88) 02/02/20 04:30 93 22 116/66 (83) 100 02/02/20 04:00 90 20 122/69 (86) 100 02/02/20 04:00 Mechanical Ventilator 02/02/20 04:00 90 02/02/20 04:00 30 02/02/20 03:35 93 22 30 02/02/20 03:30 89 21 115/62 (79) 100 02/02/20 03:00 92 22 116/68 (84) 100 02/02/20 02:30 96 21 122/77 (92) 100 02/02/20 02:00 94 22 124/70 (88) 100 02/02/20 01:30 93 21 122/75 (91) 100 02/02/20 01:00 93 23 116/69 (85) 100 02/02/20 00:30 90 21 111/75 (87) 100 02/02/20 00:00 Mechanical Ventilator 02/02/20 00:00 98.3 92 22 111/69 (83) 100 02/01/20 23:30 90 20 107/59 (75) 100 02/01/20 23:17 88 24 30 02/01/20 23:00 91 22 110/70 (83) 100 02/01/20 22:30 94 21 108/70 (83) 100 02/01/20 22:00 91 20 110/61 (77) 100 02/01/20 21:30 92 20 102/60 (74) 100 02/01/20 21:00 93 20 108/73 (85) 02/01/20 20:30 90 21 107/64 (78) 100 02/01/20 20:00 98.2 100 23 112/71 (85) 100 02/01/20 20:00 Mechanical Ventilator 02/01/20 20:00 30 02/01/20 20:00 100 02/01/20 19:30 93 21 106/70 (82) 100 02/01/20 19:30 95 21 30 02/01/20 19:00 90 18 106/65 (79) 02/01/20 18:00 87 20 97/65 (76) 100 02/01/20 17:00 87 18 101/66 (78) 100 02/01/20 16:33 87 19 30 Intake and Output 02/01/20 02/02/20 19:00 07:00 Intake Total 1555.0 ml 1320 ml Output Total 385 ml 360 ml Balance 1170.0 ml 960 ml IV Total 1175.0 ml 660 ml Tube Feeding 380 ml 660 ml Output Urine Total 385 ml 360 ml Current Medications Medications (Trade) Dose Ordered Sig/Jesse Route PRN Reason Start Time Stop Time Status Last Admin Dose Admin Acetaminophen (Tylenol) 650 mg Q4H PRN ORAL PRNH/TEMP 01/05/20 20:15 02/04/20 20:14 01/12/20 03:10 Bisacodyl (Dulcolax) 10 mg DAILY PRN RECTAL Constipation 01/05/20 20:15 04/04/20 20:14 Chlorhexidine Gluconate (Navya-Hex 2%) 1 applic DAILY@2000 TOPIC 01/11/20 20:00 04/10/20 19:59 02/01/20 20:00 Dextrose (Dextrose 50%) 25 ml Q30M PRN IV Hypoglycemia 01/05/20 20:15 04/04/20 20:14 01/24/20 23:53 Dextrose (Dextrose 50%) 50 ml Q30M PRN IV Hypoglycemia 01/05/20 20:15 04/04/20 20:14 Dextrose/Sodium Chloride 1,000 ml @ 60 mls/hr [id number] IV 01/24/20 13:30 02/23/20 13:29 02/02/20 14:49 Heparin Sodium/ Sodium Chloride (Heparin 1000 units/500ml Premix) 1,000 unit ONCE PRN INJ radiology procedure 02/01/20 13:00 02/03/20 12:59 Lansoprazole (Prevacid) 30 mg Q12HR NG 01/28/20 21:00 02/27/20 20:59 02/01/20 21:29 Lidocaine HCl (Xylocaine 1% 30ml) 30 ml ONCE PRN INJ radiology procedure 02/01/20 13:00 02/03/20 12:59 Linaclotide (Linzess) 290 mcg BEFORE BREAKFAST ORAL 01/10/20 06:30 04/09/20 06:29 02/02/20 05:50 Loperamide HCl (Imodium) 2 mg Q6H PRN NG Diarrhea 01/27/20 15:45 02/26/20 15:44 01/27/20 17:58 Metoclopramide HCl (Reglan) 10 mg EVERY 6 HOURS NG 01/19/20 12:00 02/18/20 11:59 02/02/20 12:12 Metoclopramide HCl (Reglan) 10 mg Q6H PRN IVP Nausea & Vomiting 01/16/20 13:00 02/15/20 12:59 Midodrine (Pro-Amatine) 10 mg Q8HR NG 01/20/20 22:00 04/13/20 17:59 02/02/20 05:50 Ondansetron HCl (Zofran) 4 mg Q6H PRN IVP Nausea & Vomiting 01/10/20 06:30 02/09/20 06:29 Piperacillin Sod/ Tazobactam Sod 3.375 gm/Sodium Chloride 110 ml @ 27.5 mls/hr EVERY 8 HOURS IVPB 01/30/20 14:00 02/04/20 13:59 02/02/20 14:49 Polyethylene Glycol (Miralax) 17 gm BEDTIME NG 01/11/20 21:00 02/08/20 20:59 01/29/20 20:39 Potassium Phosphate 250 ml @ 62.5 mls/hr Q4H IVPB 02/02/20 10:00 02/02/20 17:59 02/02/20 14:49 Sennosides (Senokot) 8.6 mg QHS NG 01/11/20 21:00 02/04/20 20:59 01/29/20 20:39 Vitamin D (Vitamin D) 3,000 intlu DAILY GT 01/19/20 12:00 02/18/20 11:59 02/02/20 09:03 Laboratory Tests 02/02/20 06:00: White Blood Count 9.9, Red Blood Count 2.70L, Hemoglobin 7.7L, Hematocrit 22.8L, Mean Corpuscular Volume 84, Mean Corpuscular Hemoglobin 28.5, Mean Corpuscular Hemoglobin Concent 33.8, Red Cell Distribution Width 20.1H, Platelet Count 281, Mean Platelet Volume 6.9, Neutrophils (%) (Auto) , Lymphocytes (%) (Auto) , Monocytes (%) (Auto) , Eosinophils (%) (Auto) , Basophils (%) (Auto) , Differential Total Cells Counted 100, Neutrophils % (Manual) 83H, Lymphocytes % (Manual) 13L, Monocytes % (Manual) 4, Eosinophils % (Manual) 0, Basophils % (Manual) 0, Band Neutrophils 0, Platelet Estimate Adequate, Platelet Morphology Normal, Polychromasia 1+, Hypochromasia 1+, Anisocytosis 2+, Sodium Level 140, Potassium Level 3.2L, Chloride Level 109H, Carbon Dioxide Level 20L, Anion Gap 11, Blood Urea Nitrogen 12, Creatinine 0.9, Estimat Glomerular Filtration Rate > 60, Glucose Level 114H, Calcium Level 7.2L, Phosphorus Level 2.0L, Magnesium Level 1.7L, Total Bilirubin 0.3, Aspartate Amino Transf (AST/SGOT) 57H, Alanine Aminotransferase (ALT/SGPT) 32, Alkaline Phosphatase 229H, C-Reactive Protein, Quantitative 21.9H, Pro-B-Type Natriuretic Peptide 2240H, Total Protein 5.2L, Albumin 1.5L, Globulin 3.7, Albumin/Globulin Ratio 0.4L Height (Feet): 5 Height (Inches): 9.00 Weight (Pounds): 149 General Appearance: no apparent distress EENT: other - Intubated on ventilator Cardiovascular: tachycardia - Right mid 80s Respiratory/Chest: decreased breath sounds Abdomen: distended Dhiraj Biswas MD Feb 02, 2020 16:07
[2020-02-02] MEDS: Miralax 17gm pkt NG SCH (20:03)
[2020-02-02] MEDS: Dyna-Hex 2% Top Sol 2oz TOPIC SCH (20:03)
[2020-02-02] MEDS: Sennosides 8.6mg tab NG SCH (20:03)
--- NOTE | 2020-02-02 22:15 | General Progress Note ---
Subjective Allergies: Coded Allergies: No Known Allergies (Unverified , 03/18/19) Subjective above noted patient unresponsive (+) NGT, (+) ETT tolerating TF (+) diarrhea (+) rectal tube Objective Last 24 Hour Vital Signs Date Time Temp Pulse Resp B/P (MAP) Pulse Ox O2 Delivery O2 Flow Rate FiO2 02/02/20 21:00 95 20 129/76 (93) 100 02/02/20 20:00 30 02/02/20 20:00 Mechanical Ventilator 02/02/20 20:00 74 02/02/20 20:00 98.4 85 19 122/73 (89) 100 02/02/20 19:07 92 21 136/78 (97) 100 02/02/20 18:58 89 20 30 02/02/20 18:00 83 19 120/73 (89) 100 02/02/20 17:00 83 20 120/72 (88) 100 02/02/20 16:00 84 02/02/20 16:00 98.2 02/02/20 16:00 Mechanical Ventilator 02/02/20 16:00 85 19 121/71 (88) 99 02/02/20 16:00 30 02/02/20 15:20 87 24 30 02/02/20 15:00 79 19 124/72 (89) 100 02/02/20 14:00 87 17 126/66 (86) 100 02/02/20 13:00 80 17 123/85 (98) 100 02/02/20 12:00 91 18 138/80 (99) 100 02/02/20 12:00 98.4 02/02/20 12:00 Mechanical Ventilator 02/02/20 12:00 30 02/02/20 12:00 86 02/02/20 11:20 77 22 30 02/02/20 11:00 89 22 137/72 (93) 100 02/02/20 10:00 83 19 116/64 (81) 100 02/02/20 09:00 86 20 113/70 (84) 100 02/02/20 08:13 85 02/02/20 08:00 Mechanical Ventilator 02/02/20 08:00 30 02/02/20 08:00 98.7 87 18 116/67 (83) 100 02/02/20 07:00 82 24 30 11/28/20 07:00 93 20 128/72 (90) 100 02/02/20 06:30 92 21 122/65 (84) 100 02/02/20 06:00 98.5 89 20 125/76 (92) 100 02/02/20 05:30 88 21 116/67 (83) 100 02/02/20 05:00 87 19 122/71 (88) 02/02/20 04:30 93 22 116/66 (83) 100 02/02/20 04:00 90 20 122/69 (86) 100 02/02/20 04:00 Mechanical Ventilator 02/02/20 04:00 90 02/02/20 04:00 30 02/02/20 03:35 93 22 30 02/02/20 03:30 89 21 115/62 (79) 100 02/02/20 03:00 92 22 116/68 (84) 100 02/02/20 02:30 96 21 122/77 (92) 100 02/02/20 02:00 94 22 124/70 (88) 100 02/02/20 01:30 93 21 122/75 (91) 100 02/02/20 01:00 93 23 116/69 (85) 100 02/02/20 00:30 90 21 111/75 (87) 100 02/02/20 00:00 Mechanical Ventilator 02/02/20 00:00 98.3 92 22 111/69 (83) 100 02/01/20 23:30 90 20 107/59 (75) 100 02/01/20 23:17 88 24 30 02/01/20 23:00 91 22 110/70 (83) 100 02/01/20 22:30 94 21 108/70 (83) 100 Intake and Output 02/01/20 02/02/20 19:00 07:00 Intake Total 1555.0 ml 1320 ml Output Total 385 ml 360 ml Balance 1170.0 ml 960 ml IV Total 1175.0 ml 660 ml Tube Feeding 380 ml 660 ml Output Urine Total 385 ml 360 ml Laboratory Tests 02/02/20 06:00: White Blood Count 9.9, Red Blood Count 2.70L, Hemoglobin 7.7L, Hematocrit 22.8L, Mean Corpuscular Volume 84, Mean Corpuscular Hemoglobin 28.5, Mean Corpuscular Hemoglobin Concent 33.8, Red Cell Distribution Width 20.1H, Platelet Count 281, Mean Platelet Volume 6.9, Neutrophils (%) (Auto) , Lymphocytes (%) (Auto) , Monocytes (%) (Auto) , Eosinophils (%) (Auto) , Basophils (%) (Auto) , Differential Total Cells Counted 100, Neutrophils % (Manual) 83H, Lymphocytes % (Manual) 13L, Monocytes % (Manual) 4, Eosinophils % (Manual) 0, Basophils % (Manual) 0, Band Neutrophils 0, Platelet Estimate Adequate, Platelet Morphology Normal, Polychromasia 1+, Hypochromasia 1+, Anisocytosis 2+, Sodium Level 140, Potassium Level 3.2L, Chloride Level 109H, Carbon Dioxide Level 20L, Anion Gap 11, Blood Urea Nitrogen 12, Creatinine 0.9, Estimat Glomerular Filtration Rate > 60, Glucose Level 114H, Calcium Level 7.2L, Phosphorus Level 2.0L, Magnesium Level 1.7L, Total Bilirubin 0.3, Aspartate Amino Transf (AST/SGOT) 57H, Alanine Aminotransferase (ALT/SGPT) 32, Alkaline Phosphatase 229H, C-Reactive Protein, Quantitative 21.9H, Pro-B-Type Natriuretic Peptide 2240H, Total Protein 5.2L, Albumin 1.5L, Globulin 3.7, Albumin/Globulin Ratio 0.4L Height (Feet): 5 Height (Inches): 9.00 Weight (Pounds): 149 Objective elderly man unresponsive NCAT supple CTA RR abd soft NT ND (+) RUE>LUE edema OBS Assessment/Plan Status: progressing, unchanged Assessment/Plan: Assessment - dysphagia - respiratory failure - azotemia - OBS - poor px Recommendations - NGT feeds - Elevate HOB - follow labs and exam - will place PEG once stable Ameya Zaragoza MD Feb 02, 2020 22:15
[2020-02-03] VITALS (24 sets, daily range): BP systolic 97–147; BP diastolic 59–88
[2020-02-03] MEDS: Piperacillin/Tazobactam 3.375 GM in NS 110 ML IVPB SCH ×3 (05:35→21:20)
[2020-02-03] MEDS: Metoclopramide 10mg/10ml Liq NG SCH ×4 (05:35→23:04)
[2020-02-03] MEDS: Midodrine 10mg tab NG SCH ×3 (05:35→21:20)
[2020-02-03] MEDS: D5 1/2NS 1,000 ML IV SCH ×2 (05:35→21:21)
[2020-02-03 06:56] LABS: ANION GAP 9 mmol/L (5-15); BLOOD UREA NITROGEN 11 mg/dL (7-18); CALCIUM 6.7 MG/DL (8.5-10.1); CARBON DIOXIDE 21 MMOL/L (21-32); CHLORIDE 110 MMOL/L (98-107); CREATININE 0.9 MG/DL (0.55-1.30); POTASSIUM 3.1 MMOL/L (3.5-5.1); SODIUM 140 MMOL/L (136-145)
[2020-02-03 06:59] LABS: HEMATOCRIT 22.1 % (42.0-52.0); HEMOGLOBIN 7.5 G/DL (14.2-18.0); MEAN CORPUSCULAR VOLUME 84 FL (80-99); PLATELET COUNT 263 K/UL (150-450); RED BLOOD COUNT 2.62 M/UL (4.70-6.10); RED CELL DISTRIBUTION WIDTH 20.9 % (11.6-14.8); WHITE BLOOD COUNT 10.2 K/UL (4.8-10.8)
[2020-02-03] MEDS: Vitamin D 1000 IU Tab GT SCH (09:50)
--- NOTE | 2020-02-03 09:57 | General Progress Note ---
Subjective Constitutional: Reports: weakness Allergies: Coded Allergies: No Known Allergies (Unverified , 03/18/19) All Systems: reviewed and negative except above Subjective intubated ng in icu Objective Last 24 Hour Vital Signs Date Time Temp Pulse Resp B/P (MAP) Pulse Ox O2 Delivery O2 Flow Rate FiO2 02/03/20 07:00 104 22 121/78 (92) 100 02/03/20 06:50 98 20 30 02/03/20 06:00 106 22 136/88 (104) 100 02/03/20 05:00 100 21 124/74 (91) 100 02/03/20 04:00 30 02/03/20 04:00 Mechanical Ventilator 02/03/20 04:00 100 02/03/20 04:00 99.1 96 20 129/70 (89) 100 02/03/20 03:01 97 22 30 02/03/20 03:00 100 20 135/82 (99) 100 02/03/20 02:00 93 19 126/73 (90) 100 02/03/20 01:00 91 18 130/73 (92) 100 02/03/20 00:00 95 02/03/20 00:00 Mechanical Ventilator 02/03/20 00:00 99.0 91 20 128/78 (95) 100 02/02/20 23:00 97 22 131/88 (102) 100 02/02/20 22:49 93 22 30 02/02/20 22:00 103 26 139/81 (100) 100 02/02/20 21:00 95 20 129/76 (93) 100 02/02/20 20:00 30 02/02/20 20:00 Mechanical Ventilator 02/02/20 20:00 74 02/02/20 20:00 98.4 85 19 122/73 (89) 100 02/02/20 19:07 92 21 136/78 (97) 100 02/02/20 18:58 89 20 30 02/02/20 18:00 83 19 120/73 (89) 100 02/02/20 17:00 83 20 120/72 (88) 100 02/02/20 16:00 84 02/02/20 16:00 98.2 02/02/20 16:00 Mechanical Ventilator 02/02/20 16:00 85 19 121/71 (88) 99 02/02/20 16:00 30 02/02/20 15:20 87 24 30 02/02/20 15:00 79 19 124/72 (89) 100 02/02/20 14:00 87 17 126/66 (86) 100 02/02/20 13:00 80 17 123/85 (98) 100 02/02/20 12:00 91 18 138/80 (99) 100 02/02/20 12:00 98.4 02/02/20 12:00 Mechanical Ventilator 02/02/20 12:00 30 02/02/20 12:00 86 02/02/20 11:20 77 22 30 02/02/20 11:00 89 22 137/72 (93) 100 02/02/20 10:00 83 19 116/64 (81) 100 Intake and Output 02/02/20 02/03/20 19:00 07:00 Intake Total 2160.0 ml 1450 ml Output Total 800 ml 685 ml Balance 1360.0 ml 765 ml Free Water 130 ml IV Total 1500.0 ml 660 ml Tube Feeding 660 ml 660 ml Output Urine Total 800 ml 655 ml Stool Total 30 ml Laboratory Tests 02/02/20 12:27: POC Whole Blood Glucose 123H 02/03/20 00:08: POC Whole Blood Glucose 120H 02/03/20 05:17: POC Whole Blood Glucose 101 02/03/20 06:00: White Blood Count 10.2, Red Blood Count 2.62L, Hemoglobin 7.5L, Hematocrit 22.1L , Mean Corpuscular Volume 84, Mean Corpuscular Hemoglobin 28.7, Mean Corpuscular Hemoglobin Concent 34.0, Red Cell Distribution Width 20.9H, Platelet Count 263, Mean Platelet Volume 7.0, Neutrophils (%) (Auto) , Lymphocytes (%) (Auto) , Monocytes (%) (Auto) , Eosinophils (%) (Auto) , Basophils (%) (Auto) , Differential Total Cells Counted 100, Neutrophils % (Manual) 85H, Lymphocytes % (Manual) 4L, Monocytes % (Manual) 7, Eosinophils % (Manual) 1, Basophils % (Manual) 0, Metamyelocytes % 1H, Myelocytes % 2H, Band Neutrophils 0, Platelet Estimate Adequate, Platelet Morphology Normal, Polychromasia Occasional, Anisocytosis 2+, Sodium Level 140, Potassium Level 3.1L, Chloride Level 110H, Carbon Dioxide Level 21, Anion Gap 9, Blood Urea Nitrogen 11, Creatinine 0.9, Estimat Glomerular Filtration Rate > 60, Glucose Level 105, Calcium Level 6.7L Height (Feet): 5 Height (Inches): 9.00 Weight (Pounds): 149 General Appearance: lethargic EENT: normal ENT inspection Neck: normal alignment Cardiovascular: normal peripheral pulses, normal rate, regular rhythm Respiratory/Chest: chest wall non-tender, lungs clear, normal breath sounds Abdomen: normal bowel sounds, non tender, soft Extremities: normal inspection Edema: no edema noted Arm (L), no edema noted Arm (R), no edema noted Leg (L), no edema noted Leg (R), no edema noted Pedal (L), no edema noted Pedal (R), no edema noted Generalized Neurologic: motor weakness Skin: normal pigmentation, warm/dry Assessment/Plan Problem List: (1) Anemia ICD Codes: D64.9 - Anemia, unspecified SNOMED: 904491951 (2) Paraplegia ICD Codes: G82.20 - Paraplegia, unspecified SNOMED: 28877367 (3) Diabetes ICD Codes: E11.9 - Type 2 diabetes mellitus without complications SNOMED: 13065807 (4) Weak ICD Codes: R53.1 - Weakness SNOMED: 95878582 (5) HTN (hypertension) ICD Codes: I10 - Essential (primary) hypertension SNOMED: 08682105 (6) ARF (acute renal failure) ICD Codes: N17.9 - Acute kidney failure, unspecified SNOMED: 78149257 (7) Altered level of consciousness ICD Codes: R40.4 - Transient alteration of awareness SNOMED: 7379289 (8) Dehydration ICD Codes: E86.0 - Dehydration SNOMED: 60788507 (9) Hypernatremia ICD Codes: E87.0 - Hyperosmolality and hypernatremia SNOMED: 440738014 Status: unchanged Assessment/Plan: vent abx cbc bmp am Farrukh Ríos DO Feb 03, 2020 09:57
--- NOTE | 2020-02-03 10:20 | Hematology/Onc Progress Note ---
Assessment/Plan Assessment/Plan Assessment/Recs # Metastatic prostate cancer -- w psa [id number], has a Large pelvic mass as described involving the prostate, bladder, seminal vesicles, presumably representing prostatic malignancy --> CT Evidence of disseminated malignancy, with extensive lymphadenopathy of and evidenc of diffuse osseous metastases Severe right and moderate left hydronephrosis and bilateral hydroureter, due to ureteral obstruction by the above mass --> tumor markers ordered, psa 2741 --> after above reviewed, consider further biopsy of prostate with uro as needed # Pancytopenia with initially Anemia due to underlying chronic medical issues, multifactorial v Gi bleed v malignancy --> Anemia workup has been ordered, rule out gi bleed --> No evidence of hemolysis is noted, peripheral smear has been reviewed. --> Hgb goal >7. Transfuse prn. --> Epogen or iron at this time is not particularly indicated --> Medications have been reviewed --> low threshold for gi evaluation in case has occult + --> hgb 10-->9.7-->9.2->10-->8.6-->7.7-->5-->8.3->9.3->7.8-->8.2-->8.1-->9.3-->9.9->10-> 7.5 --> 11/8 flow cytometry ordered bc of nucleated cells on smear-->neg --> wbc 5-->4-->3.9-->4 --> plt 150-->98-->82-->51->49-->46-->50-->68-->88-->109 --> hep and hiv panel--NEG --> us abd-->shows 3 small lesions, requires further eval --> CT a/p reviewed # Multiple lesions noted in pancreas --> MRI abd ordered--> nondiagnostic --> CT of the abd reviewed # Protein caloric malnutrition --> daily calorie counts --> daily weights --> mirtazapine started # Acute renal failure --> continue on ivfs --> as per renal # Hypokalemia --> replete with K # Severe dehydration --> ivfs ongoing # Respiratory failure --> s/p intubation # Hypernatremia indicative of severe water deficit # Severe hyperuricemia, partly due to dehydration and renal failure # Acute metabolic and toxic encephalopathy # Mild, malnutrition # Psych issues per psych # Lactic acid, possible sepsis # Dvt ppx heparin sq->Scds # Comfort care potentially The timing of this note does not necessarily reflect the time of the patient was seen. Greatly appreciate consultation. Subjective Allergies: Coded Allergies: No Known Allergies (Unverified , 03/18/19) All Systems: reviewed and negative except above Subjective 01/07 meds noted, no bleeding, hgb 10, no hemolysis, hgb 10.1 01/08 labs reviewed, vi rn, no major events, no bleeding, hgb lower 01/09 labs noted, no bleeding, vi rn, no major changes, plt lower 01/10 did have epistaxis overnight, no bleeding, night sweats, epistaxis better 01/12 icu, remains on vent, levo, no bleeding, meds noted 01/13 remains in icu, no bleeding, on levo, no major changes 01/14 icu, is on 1l, restarints are off, no bleeding, no night sweats 01/15 icu, meds noted, with diarrhea, rectal tube reinserted, on nc 01/16 out of icu, no bleeding, meds reviewed, cbc ad bmp pending 01/17 unable to lay still for the mri, thus ct ordered, vi rn 01/19 hgb 6.9, no bleeding, no hemolysis, ct reviewed 01/20 obtunded, meds reviewed, hgb is better, in icu 01/21 obtunded, npo, labs hjave been reviewed, hgb 9.2 01/22 obtunded, in icu, no bleeding, plt 109 01/23 obtunded still icu, on venturimask, meds reviewed, labs noted 01/24 obtunded, in icu, labs reviewed, meds noted, wbc 4.1, plt 133 01/26 is out of the icu, no bleeding, meds noted, labs ordered 01/27 nonverbal, out of icu, on feedigs, no bleeding, labs reviewed 01/28 icu, nv, is on midrinone, linzess, ivf 01/29 icu, off levop, ngt restarted, meds noted 01/30 icu, with large bm, labs reviewed, no f/c, zosyn 01/31 icu, levo is on hold, no bleeding, abx, hgb 7.5 02/02 in icu, intubated, with ngt, no bleeding, labs noted Objective Objective Current Medications Medications (Trade) Dose Ordered Sig/Jesse Route PRN Reason Start Time Stop Time Status Last Admin Dose Admin Acetaminophen (Tylenol) 650 mg Q4H PRN ORAL PRNH/TEMP 01/05/20 20:15 02/11/20 20:14 01/12/20 03:10 Bisacodyl (Dulcolax) 10 mg DAILY PRN RECTAL Constipation 01/05/20 20:15 04/04/20 20:14 Chlorhexidine Gluconate (Navya-Hex 2%) 1 applic DAILY@1999 TOPIC 01/11/20 20:00 04/10/20 19:59 02/02/20 20:03 Dextrose (Dextrose 50%) 25 ml Q30M PRN IV Hypoglycemia 01/05/20 20:15 04/04/20 20:14 01/24/20 23:53 Dextrose (Dextrose 50%) 50 ml Q30M PRN IV Hypoglycemia 01/05/20 20:15 04/04/20 20:14 Dextrose/Sodium Chloride 1,000 ml @ 60 mls/hr [id number] IV 01/24/20 13:30 02/23/20 13:29 02/03/20 05:35 Heparin Sodium/ Sodium Chloride (Heparin 1000 units/500ml Premix) 1,000 unit ONCE PRN INJ radiology procedure 02/01/20 13:00 02/03/20 12:59 Lansoprazole (Prevacid) 30 mg Q12HR NG 01/28/20 21:00 02/27/20 20:59 02/03/20 09:50 Lidocaine HCl (Xylocaine 1% 30ml) 30 ml ONCE PRN INJ radiology procedure 02/01/20 13:00 02/03/20 12:59 Linaclotide (Linzess) 290 mcg BEFORE BREAKFAST ORAL 01/10/20 06:30 04/09/20 06:29 02/03/20 05:35 Loperamide HCl (Imodium) 2 mg Q6H PRN NG Diarrhea 01/27/20 15:45 02/26/20 15:44 01/27/20 17:58 Metoclopramide HCl (Reglan) 10 mg EVERY 6 HOURS NG 01/19/20 12:00 02/18/20 11:59 02/03/20 05:35 Metoclopramide HCl (Reglan) 10 mg Q6H PRN IVP Nausea & Vomiting 01/16/20 13:00 02/15/20 12:59 Midodrine (Pro-Amatine) 10 mg Q8HR NG 01/20/20 22:00 04/13/20 17:59 02/02/20 05:50 Ondansetron HCl (Zofran) 4 mg Q6H PRN IVP Nausea & Vomiting 01/10/20 06:30 02/09/20 06:29 Piperacillin Sod/ Tazobactam Sod 3.375 gm/Sodium Chloride 110 ml @ 27.5 mls/hr EVERY 8 HOURS IVPB 01/30/20 14:00 02/04/20 13:59 02/03/20 05:35 Polyethylene Glycol (Miralax) 17 gm BEDTIME NG 01/11/20 21:00 02/08/20 20:59 01/29/20 20:39 Sennosides (Senokot) 8.6 mg QHS NG 01/11/20 21:00 02/11/20 20:59 01/29/20 20:39 Vitamin D (Vitamin D) 3,000 intlu DAILY GT 01/19/20 12:00 02/18/20 11:59 02/03/20 09:50 Last 24 Hour Vital Signs Date Time Temp Pulse Resp B/P (MAP) Pulse Ox O2 Delivery O2 Flow Rate FiO2 02/03/20 08:00 30 02/03/20 07:00 104 22 121/78 (92) 100 02/03/20 06:50 98 20 30 02/03/20 06:00 106 22 136/88 (104) 100 02/03/20 05:00 100 21 124/74 (91) 100 02/03/20 04:00 30 02/03/20 04:00 Mechanical Ventilator 02/03/20 04:00 100 02/03/20 04:00 99.1 96 20 129/70 (89) 100 02/03/20 03:01 97 22 30 02/03/20 03:00 100 20 135/82 (99) 100 02/03/20 02:00 93 19 126/73 (90) 100 02/03/20 01:00 91 18 130/73 (92) 100 02/03/20 00:00 95 02/03/20 00:00 Mechanical Ventilator 02/03/20 00:00 99.0 91 20 128/78 (95) 100 02/02/20 23:00 97 22 131/88 (102) 100 02/02/20 22:49 93 22 30 02/02/20 22:00 103 26 139/81 (100) 100 02/02/20 21:00 95 20 129/76 (93) 100 02/02/20 20:00 30 02/02/20 20:00 Mechanical Ventilator 02/02/20 20:00 74 02/02/20 20:00 98.4 85 19 122/73 (89) 100 02/02/20 19:07 92 21 136/78 (97) 100 02/02/20 18:58 89 20 30 02/02/20 18:00 83 19 120/73 (89) 100 02/02/20 17:00 83 20 120/72 (88) 100 02/02/20 16:00 84 02/02/20 16:00 98.2 02/02/20 16:00 Mechanical Ventilator 02/02/20 16:00 85 19 121/71 (88) 99 02/02/20 16:00 30 02/02/20 15:20 87 24 30 02/02/20 15:00 79 19 124/72 (89) 100 02/02/20 14:00 87 17 126/66 (86) 100 02/02/20 13:00 80 17 123/85 (98) 100 02/02/20 12:00 91 18 138/80 (99) 100 02/02/20 12:00 98.4 02/02/20 12:00 Mechanical Ventilator 02/02/20 12:00 30 02/02/20 12:00 86 02/02/20 11:20 77 22 30 02/02/20 11:00 89 22 137/72 (93) 100 02/02/20 10:00 83 19 116/64 (81) 100 02/02/20 09:00 86 20 113/70 (84) 100 02/02/20 08:13 85 02/02/20 08:00 Mechanical Ventilator 02/02/20 08:00 30 02/02/20 08:00 98.7 87 18 116/67 (83) 100 02/02/20 07:00 82 24 30 02/02/20 07:00 93 20 128/72 (90) 100 02/02/20 06:30 92 21 122/65 (84) 100 02/02/20 06:00 98.5 89 20 125/76 (92) 100 02/02/20 05:30 88 21 116/67 (83) 100 02/02/20 05:00 87 19 122/71 (88) 02/02/20 04:30 93 22 116/66 (83) 100 02/02/20 04:00 90 20 122/69 (86) 100 02/02/20 04:00 Mechanical Ventilator 02/02/20 04:00 90 02/02/20 04:00 30 02/02/20 03:35 93 22 30 02/02/20 03:30 89 21 115/62 (79) 100 02/02/20 03:00 92 22 116/68 (84) 100 02/02/20 02:30 96 21 122/77 (92) 100 02/02/20 02:00 94 22 124/70 (88) 100 02/02/20 01:30 93 21 122/75 (91) 100 02/02/20 01:00 93 23 116/69 (85) 100 02/02/20 00:30 90 21 111/75 (87) 100 02/02/20 00:00 Mechanical Ventilator 02/02/20 00:00 98.3 92 22 111/69 (83) 100 02/01/20 23:30 90 20 107/59 (75) 100 02/01/20 23:17 88 24 30 02/01/20 23:00 91 22 110/70 (83) 100 02/01/20 22:30 94 21 108/70 (83) 100 02/01/20 22:00 91 20 110/61 (77) 100 02/01/20 21:30 92 20 102/60 (74) 100 02/01/20 21:00 93 20 108/73 (85) 02/01/20 20:30 90 21 107/64 (78) 100 02/01/20 20:00 98.2 100 23 112/71 (85) 100 02/01/20 20:00 Mechanical Ventilator 02/01/20 20:00 30 11/27/20 20:00 100 02/01/20 19:30 93 21 106/70 (82) 100 02/01/20 19:30 95 21 30 02/01/20 19:00 90 18 106/65 (79) 02/01/20 18:00 87 20 97/65 (76) 100 02/01/20 17:00 87 18 101/66 (78) 100 02/01/20 16:33 87 19 30 02/01/20 16:00 83 02/01/20 16:00 Mechanical Ventilator 02/01/20 16:00 30 02/01/20 16:00 98.0 87 20 100/64 (76) 100 02/01/20 15:05 81 19 30 02/01/20 15:00 80 20 103/66 (78) 100 02/01/20 14:00 89 22 101/68 (79) 100 02/01/20 13:00 98.0 83 20 113/56 (75) 100 02/01/20 12:00 83 20 113/56 (75) 100 02/01/20 12:00 30 02/01/20 12:00 87 02/01/20 12:00 Mechanical Ventilator 02/01/20 11:20 100 02/01/20 11:20 95 23 30 02/01/20 11:00 77 20 112/55 (74) 100 Intake and Output 02/02/20 02/03/20 19:00 07:00 Intake Total 2160.0 ml 1450 ml Output Total 800 ml 685 ml Balance 1360.0 ml 765 ml Free Water 130 ml IV Total 1500.0 ml 660 ml Tube Feeding 660 ml 660 ml Output Urine Total 800 ml 655 ml Stool Total 30 ml Labs Test 02/01/20 02:45 02/01/20 07:49 02/01/20 11:17 02/01/20 17:17 White Blood Count 9.4 K/UL (4.8-10.8) Red Blood Count 2.66 M/UL (4.70-6.10) Hemoglobin 7.5 G/DL (14.2-18.0) Hematocrit 22.2 % (42.0-52.0) Mean Corpuscular Volume 83 FL (80-99) Mean Corpuscular Hemoglobin 28.1 PG (27.0-31.0) Mean Corpuscular Hemoglobin Concent 33.7 G/DL (32.0-36.0) Red Cell Distribution Width 20.6 % (11.6-14.8) Platelet Count 263 K/UL (150-450) Mean Platelet Volume 6.6 FL (6.5-10.1) Neutrophils (%) (Auto) % (45.0-75.0) Lymphocytes (%) (Auto) % (20.0-45.0) Monocytes (%) (Auto) % (1.0-10.0) Eosinophils (%) (Auto) % (0.0-3.0) Basophils (%) (Auto) % (0.0-2.0) Differential Total Cells Counted 100 Neutrophils % (Manual) 80 % (45-75) Lymphocytes % (Manual) 17 % (20-45) Monocytes % (Manual) 3 % (1-10) Eosinophils % (Manual) 0 % (0-3) Basophils % (Manual) 0 % (0-2) Band Neutrophils 0 % (0-8) Platelet Estimate Adequate Platelet Morphology Normal Hypochromasia 3+ Anisocytosis 3+ Schistocytes Occasional Sodium Level 140 MMOL/L (136-145) Potassium Level 3.0 MMOL/L (3.5-5.1) Chloride Level 107 MMOL/L (98-107) Carbon Dioxide Level 21 MMOL/L (21-32) Blood Urea Nitrogen 13 mg/dL (7-18) Creatinine 1.0 MG/DL (0.55-1.30) Estimat Glomerular Filtration Rate > 60 mL/min (>60) Glucose Level 81 MG/DL (74-106) Calcium Level 7.0 MG/DL (8.5-10.1) Arterial Blood pH 7.511 (7.350-7.450) 7.486 (7.350-7.450) Arterial Blood Partial Pressure CO2 25.4 mmHg (35.0-45.0) 25.7 mmHg (35.0-45.0) Arterial Blood Partial Pressure O2 97.5 mmHg (75.0-100.0) 101.7 mmHg (75.0-100.0) Arterial Blood HCO3 19.9 mmol/L (22.0-26.0) 19.0 mmol/L (22.0-26.0) Arterial Blood Oxygen Saturation 97.0 % (95-100) 98.2 % (95-100) Arterial Blood Base Excess -2.5 (-2-2) -3.6 (-2-2) Asael Test Positive Positive Test 02/01/20 18:14 02/01/20 19:15 02/02/20 06:00 02/02/20 12:27 POC Whole Blood Glucose 104 MG/DL (74-106) 123 MG/DL (74-106) White Blood Count 9.9 K/UL (4.8-10.8) Red Blood Count 2.70 M/UL (4.70-6.10) Hemoglobin 7.7 G/DL (14.2-18.0) Hematocrit 22.8 % (42.0-52.0) Mean Corpuscular Volume 84 FL (80-99) Mean Corpuscular Hemoglobin 28.5 PG (27.0-31.0) Mean Corpuscular Hemoglobin Concent 33.8 G/DL (32.0-36.0) Red Cell Distribution Width 20.1 % (11.6-14.8) Platelet Count 281 K/UL (150-450) Mean Platelet Volume 6.9 FL (6.5-10.1) Neutrophils (%) (Auto) % (45.0-75.0) Lymphocytes (%) (Auto) % (20.0-45.0) Monocytes (%) (Auto) % (1.0-10.0) Eosinophils (%) (Auto) % (0.0-3.0) Basophils (%) (Auto) % (0.0-2.0) Differential Total Cells Counted 100 Neutrophils % (Manual) 83 % (45-75) Lymphocytes % (Manual) 13 % (20-45) Monocytes % (Manual) 4 % (1-10) Eosinophils % (Manual) 0 % (0-3) Basophils % (Manual) 0 % (0-2) Band Neutrophils 0 % (0-8) Platelet Estimate Adequate Platelet Morphology Normal Polychromasia 1+ Hypochromasia 1+ Anisocytosis 2+ Sodium Level 140 MMOL/L (136-145) Potassium Level 3.2 MMOL/L (3.5-5.1) Chloride Level 109 MMOL/L (98-107) Carbon Dioxide Level 20 MMOL/L (21-32) Anion Gap 11 mmol/L (5-15) Blood Urea Nitrogen 12 mg/dL (7-18) Creatinine 0.9 MG/DL (0.55-1.30) Estimat Glomerular Filtration Rate > 60 mL/min (>60) Glucose Level 114 MG/DL (74-106) Calcium Level 7.2 MG/DL (8.5-10.1) Phosphorus Level 2.0 MG/DL (2.5-4.9) Magnesium Level 1.7 MG/DL (1.8-2.4) Total Bilirubin 0.3 MG/DL (0.2-1.0) Aspartate Amino Transf (AST/SGOT) 57 U/L (15-37) Alanine Aminotransferase (ALT/SGPT) 32 U/L (12-78) Alkaline Phosphatase 229 U/L (46-116) C-Reactive Protein, Quantitative 21.9 mg/dL (0.00-0.90) Pro-B-Type Natriuretic Peptide 2240 pg/mL (0-125) Total Protein 5.2 G/DL (6.4-8.2) Albumin 1.5 G/DL (3.4-5.0) Globulin 3.7 g/dL Albumin/Globulin Ratio 0.4 (1.0-2.7) Test 02/03/20 00:08 02/03/20 05:17 02/03/20 06:00 POC Whole Blood Glucose 120 MG/DL (74-106) 101 MG/DL (74-106) White Blood Count 10.2 K/UL (4.8-10.8) Red Blood Count 2.62 M/UL (4.70-6.10) Hemoglobin 7.5 G/DL (14.2-18.0) Hematocrit 22.1 % (42.0-52.0) Mean Corpuscular Volume 84 FL (80-99) Mean Corpuscular Hemoglobin 28.7 PG (27.0-31.0) Mean Corpuscular Hemoglobin Concent 34.0 G/DL (32.0-36.0) Red Cell Distribution Width 20.9 % (11.6-14.8) Platelet Count 263 K/UL (150-450) Mean Platelet Volume 7.0 FL (6.5-10.1) Neutrophils (%) (Auto) % (45.0-75.0) Lymphocytes (%) (Auto) % (20.0-45.0) Monocytes (%) (Auto) % (1.0-10.0) Eosinophils (%) (Auto) % (0.0-3.0) Basophils (%) (Auto) % (0.0-2.0) Differential Total Cells Counted 100 Neutrophils % (Manual) 85 % (45-75) Lymphocytes % (Manual) 4 % (20-45) Monocytes % (Manual) 7 % (1-10) Eosinophils % (Manual) 1 % (0-3) Basophils % (Manual) 0 % (0-2) Metamyelocytes % 1 % (0-0) Myelocytes % 2 % (0-0) Band Neutrophils 0 % (0-8) Platelet Estimate Adequate Platelet Morphology Normal Polychromasia Occasional Anisocytosis 2+ Sodium Level 140 MMOL/L (136-145) Potassium Level 3.1 MMOL/L (3.5-5.1) Chloride Level 110 MMOL/L (98-107) Carbon Dioxide Level 21 MMOL/L (21-32) Anion Gap 9 mmol/L (5-15) Blood Urea Nitrogen 11 mg/dL (7-18) Creatinine 0.9 MG/DL (0.55-1.30) Estimat Glomerular Filtration Rate > 60 mL/min (>60) Glucose Level 105 MG/DL (74-106) Calcium Level 6.7 MG/DL (8.5-10.1) Micro Microbiology Date/Time Source Procedure Growth Status 02/02/20 15:30 Stool Clostridium difficile Toxin Assay - Final Complete 02/02/20 15:30 Sputum Gram Stain - Final Resulted 02/02/20 15:30 Sputum Sputum Culture - Preliminary NO GROWTH Resulted 02/02/20 14:22 Catheter Site Catheter Tip Culture - Preliminary NO GROWTH Resulted Height (Feet): 5 Height (Inches): 9.00 Weight (Pounds): 149 Objective PE: Vitals: reviewed General Appearance: NAD HEENT: normocephalic, atraumatic Neck: non-tender, normal alignment Respiratory/Chest: nromal breath sounds bilaterally Cardiovascular/Chest: normal peripheral pulses, normal rate Abdomen: normal bowel sounds, soft, nontender Extremities: normal range of motion Samuel Son MD Feb 03, 2020 10:20
[2020-02-03 11:23] LABS: INR 1.1 (0.9-1.1)
[2020-02-03] MEDS ORDERED: NS 275ml ONE (14:02)
[2020-02-03] MEDS ORDERED: D5 1/2NS 1000ml IV ONE (14:02)
[2020-02-03] MEDS ORDERED: D5NS 1000ml IV ONE (14:02)
[2020-02-03] MEDS ORDERED: 1/2 NS 1000ml IV ONE (14:02)
[2020-02-03] MEDS ORDERED: Tubing IV Secondary IV ONE (14:02)
--- NOTE | 2020-02-03 14:18 | General Progress Note ---
Subjective Allergies: Coded Allergies: No Known Allergies (Unverified , 03/18/19) Subjective above noted patient unresponsive (+) NGT, (+) ETT tolerating TF (+) diarrhea (+) rectal tube Objective Last 24 Hour Vital Signs Date Time Temp Pulse Resp B/P (MAP) Pulse Ox O2 Delivery O2 Flow Rate FiO2 02/03/20 11:18 102 22 30 02/03/20 08:00 30 02/03/20 07:00 104 22 121/78 (92) 100 02/03/20 06:50 98 20 30 02/03/20 06:00 106 22 136/88 (104) 100 02/03/20 05:00 100 21 124/74 (91) 100 02/03/20 04:00 30 02/03/20 04:00 Mechanical Ventilator 02/03/20 04:00 100 02/03/20 04:00 99.1 96 20 129/70 (89) 100 02/03/20 03:01 97 22 30 02/03/20 03:00 100 20 135/82 (99) 100 02/03/20 02:00 93 19 126/73 (90) 100 02/03/20 01:00 91 18 130/73 (92) 100 02/03/20 00:00 95 02/03/20 00:00 Mechanical Ventilator 02/03/20 00:00 99.0 91 20 128/78 (95) 100 02/02/20 23:00 97 22 131/88 (102) 100 02/02/20 22:49 93 22 30 02/02/20 22:00 103 26 139/81 (100) 100 02/02/20 21:00 95 20 129/76 (93) 100 02/02/20 20:00 30 02/02/20 20:00 Mechanical Ventilator 02/02/20 20:00 74 02/02/20 20:00 98.4 85 19 122/73 (89) 100 02/02/20 19:07 92 21 136/78 (97) 100 02/02/20 18:58 89 20 30 02/02/20 18:00 83 19 120/73 (89) 100 02/02/20 17:00 83 20 120/72 (88) 100 02/02/20 16:00 84 02/02/20 16:00 98.2 02/02/20 16:00 Mechanical Ventilator 02/02/20 16:00 85 19 121/71 (88) 99 02/02/20 16:00 30 02/02/20 15:20 87 24 30 02/02/20 15:00 79 19 124/72 (89) 100 Intake and Output 02/02/20 02/03/20 19:00 07:00 Intake Total 2160.0 ml 1450 ml Output Total 800 ml 685 ml Balance 1360.0 ml 765 ml Free Water 130 ml IV Total 1500.0 ml 660 ml Tube Feeding 660 ml 660 ml Output Urine Total 800 ml 655 ml Stool Total 30 ml Laboratory Tests 02/03/20 00:08: POC Whole Blood Glucose 120H 02/03/20 05:17: POC Whole Blood Glucose 101 02/03/20 06:00: White Blood Count 10.2, Red Blood Count 2.62L, Hemoglobin 7.5L, Hematocrit 22.1L , Mean Corpuscular Volume 84, Mean Corpuscular Hemoglobin 28.7, Mean Corpuscular Hemoglobin Concent 34.0, Red Cell Distribution Width 20.9H, Platelet Count 263, Mean Platelet Volume 7.0, Neutrophils (%) (Auto) , Lymphocytes (%) (Auto) , Monocytes (%) (Auto) , Eosinophils (%) (Auto) , Basophils (%) (Auto) , Differential Total Cells Counted 100, Neutrophils % (Manual) 85H, Lymphocytes % (Manual) 4L, Monocytes % (Manual) 7, Eosinophils % (Manual) 1, Basophils % (Manual) 0, Metamyelocytes % 1H, Myelocytes % 2H, Band Neutrophils 0, Platelet Estimate Adequate, Platelet Morphology Normal, Polychromasia Occasional, Anisocytosis 2+, Sodium Level 140, Potassium Level 3.1L, Chloride Level 110H, Carbon Dioxide Level 21, Anion Gap 9, Blood Urea Nitrogen 11, Creatinine 0.9, Estimat Glomerular Filtration Rate > 60, Glucose Level 105, Calcium Level 6.7L 02/03/20 10:50: Prothrombin Time 12.3H, Prothromb Time International Ratio 1.1, Activated Partial Thromboplast Time 28 Height (Feet): 5 Height (Inches): 9.00 Weight (Pounds): 149 Objective elderly man unresponsive NCAT supple CTA RR abd soft NT ND (+) RUE>LUE edema OBS Assessment/Plan Status: unchanged Assessment/Plan: Assessment - dysphagia - respiratory failure - azotemia - OBS - poor px Recommendations - NGT feeds - Elevate HOB - follow labs and exam - will place PEG once stable Ameya Zaragoza MD Feb 03, 2020 14:18
--- NOTE | 2020-02-03 14:29 | Nephrology Progress Note ---
Assessment/Plan Problem List: (1) ARF (acute renal failure) (2) Hypernatremia (3) Hypovolemic shock (4) Altered level of consciousness (5) Hypercalcemia (6) Hyperuricemia (7) Pelvic mass Assessment: Prostate cancer Assessment Acute renal failure Possible underlying chronic kidney failure Severe dehydration Hypernatremia indicative of severe water deficit Severe hyperuricemia, partly due to dehydration and renal failure Acute metabolic and toxic encephalopathy Mild, malnutrition Anemia Lactic acid, possible sepsis Hypercalcemia Plan February 02: Status quo. Labs reviewed. Abnormal electrolyte addressed. Discussed with SELIN Thomason. February 01: Remains intubated and on ventilator. Abnormal electrolytes addressed. Continue per consultants. January 31: Continues to be on ventilator. Labs reviewed. Abnormal electrolyte addressed. Continue per consultants. January 30: Patient remains intubated. On no pressors. Abnormal electrolyte addressed. Discussed with RN. Apparently due for PEG insertion tomorrow. Continue per consultants. January 29: Patient was coded late last night. Now in ICU intubated. Was on pressors for a short period of time. Is off pressors now. Labs reviewed. Abnormal electrolyte addressed. Continue per consultants. January 28: Labs reviewed. Abnormal electrolyte addressed. Continue per consultants. January 27: Labs reviewed. Abnormal electrolyte addressed. Low potassium low phosphorus and low magnesium replaced. Continue per consultants. January 26: No labs drawn today. Status quo. Continue per consultants. Will check renal parameters tomorrow. January 25: Renal parameters stable. On Venturi mask. Continue per current management. January 24: Renal parameters stable. On Venturi mask. Discussed with RN. Due for PEG insertion today. January 23: Stable from renal standpoint of view. On Venturi mask. Low magnesium addressed. Continue per consultants. January 22: Patient off pressors. Patient extubated. Labs reviewed. Renal parameters are stable. January 21: Patient on low-dose pressors. Remains hypotensive. Renal parameters stable. Weaning trial in process. Mental status remains poor. January 20: Patient in ICU. Intubated. Full code. Has advanced prostate cancer. On IV Lasix drip. Low magnesium and low phosphorus and low potassium noted and addressed. Continue per consultants. January 19: Patient in ICU. Intubated. Was coded yesterday. Labs reviewed. Medication list reviewed and adjusted. Continue per consultants. Patient full code. Prognosis poor. PSA over 2700 January 18: Labs reviewed. IV fluid discontinued. IV calcium dose decreased. Midodrine dose decreased. Reglan and Protonix changed to GT route. Vitamin D initiated. Continue to monitor renal parameters and calcium level. January 17: Labs reviewed. Abnormal electrolyte addressed. Continue per consultants. January 16: Patient now in telemetry. Labs pending. Continue to monitor renal parameters. Continue per consultants. January 15: Still in ICU. Doing well post extubation. Renal parameters improving. Not requiring any more dialysis treatment after the first dialysis treatment. Medications reviewed. Continue per consultants. January 14: Remains in ICU. Tolerating extubation. Labs reviewed. Abnormal electrolytes addressed. Serum creatinine lowering. Continue per current management. Stop Phos binders. Increase calcium IV. January 13: In ICU. Now extubated. Only dialyzed once. Urine output maintained. Serum creatinine down to 2.5. Patient has NG tube. Continue to monitor renal parameters. Continue per consultants. Abnormal electrolytes addressed. January 12: Remains in ICU. Intubated. Transfused yesterday. Abnormal electrolytes addressed. Dialyzed once January 10. Serum creatinine stable. Will adjust IV fluid. Monitor renal parameters. Dialysis as needed. Calcium gluconate IV ordered. Ionized calcium level ordered with tomorrow's labs. January 11: Patient in ICU. Intubated. On Levophed. Hemoglobin low. Due for transfusion. Electrolyte abnormalities noted and addressed. Patient was dialyzed yesterday. Will check lab tomorrow. Dialysis as needed. Discussed with SELIN Srivastava. January 10: Patient is doing poorly. Blood pressure low. ABG abnormal with metabolic acidosis. IV sodium bicarb given. Serum creatinine reno. Patient has acute renal failure. Nontunneled dialysis catheter replacement ordered.. Patient need life saving dialysis treatment SRINIVAS. January 09: Labs reviewed. IV D5 and a half with sodium bicarb initiated. Serum creatinine higher. Continue to monitor renal parameters. NG feeding was changed to Nepro. Patient remains full code. Poor prognosis. January 08: Labs reviewed. IV D5W discontinued. 500 cc 3% saline ordered. NG tube for feeding and for medications. Allopurinol dose increased. Continue to monitor renal parameters serum calcium and phosphorus. January 07: Labs reviewed. Serum calcium remains elevated. Uric acid still elevated. Will give pamidronate 60 mg IV piggyback once for hypercalcemia. Continue to monitor renal parameters. Continue D5W 150 cc an hour. Start Bicitra 30 cc p.o. every 6 hours. Add allopurinol D5W IV hydration Albumin bolus N.p.o. until able to take p.o. Antibiotics Monitor renal parameters monitor calcium, monitor uric acid Subjective ROS Limited/Unobtainable: Yes Objective Objective Last 24 Hour Vital Signs Date Time Temp Pulse Resp B/P (MAP) Pulse Ox O2 Delivery O2 Flow Rate FiO2 02/03/20 11:18 102 22 30 02/03/20 08:00 30 02/03/20 07:00 104 22 121/78 (92) 100 02/03/20 06:50 98 20 30 02/03/20 06:00 106 22 136/88 (104) 100 02/03/20 05:00 100 21 124/74 (91) 100 02/03/20 04:00 30 02/03/20 04:00 Mechanical Ventilator 02/03/20 04:00 100 02/03/20 04:00 99.1 96 20 129/70 (89) 100 02/03/20 03:01 97 22 30 02/03/20 03:00 100 20 135/82 (99) 100 02/03/20 02:00 93 19 126/73 (90) 100 02/03/20 01:00 91 18 130/73 (92) 100 02/03/20 00:00 95 02/03/20 00:00 Mechanical Ventilator 02/03/20 00:00 99.0 91 20 128/78 (95) 100 02/02/20 23:00 97 22 131/88 (102) 100 02/02/20 22:49 93 22 30 02/02/20 22:00 103 26 139/81 (100) 100 02/02/20 21:00 95 20 129/76 (93) 100 02/02/20 20:00 30 02/02/20 20:00 Mechanical Ventilator 02/02/20 20:00 74 02/02/20 20:00 98.4 85 19 122/73 (89) 100 02/02/20 19:07 92 21 136/78 (97) 100 02/02/20 18:58 89 20 30 02/02/20 18:00 83 19 120/73 (89) 100 02/02/20 17:00 83 20 120/72 (88) 100 11/28/20 16:00 84 02/02/20 16:00 98.2 02/02/20 16:00 Mechanical Ventilator 02/02/20 16:00 85 19 121/71 (88) 99 02/02/20 16:00 30 02/02/20 15:20 87 24 30 02/02/20 15:00 79 19 124/72 (89) 100 Intake and Output 02/02/20 02/03/20 19:00 07:00 Intake Total 2160.0 ml 1450 ml Output Total 800 ml 685 ml Balance 1360.0 ml 765 ml Free Water 130 ml IV Total 1500.0 ml 660 ml Tube Feeding 660 ml 660 ml Output Urine Total 800 ml 655 ml Stool Total 30 ml Current Medications Medications (Trade) Dose Ordered Sig/Jesse Route PRN Reason Start Time Stop Time Status Last Admin Dose Admin Acetaminophen (Tylenol) 650 mg Q4H PRN ORAL PRNH/TEMP 01/05/20 20:15 02/11/20 20:14 01/12/20 03:10 Bisacodyl (Dulcolax) 10 mg DAILY PRN RECTAL Constipation 01/05/20 20:15 04/04/20 20:14 Chlorhexidine Gluconate (Navya-Hex 2%) 1 applic DAILY@2000 TOPIC 01/11/20 20:00 04/10/20 19:59 02/02/20 20:03 Dextrose (Dextrose 50%) 25 ml Q30M PRN IV Hypoglycemia 01/05/20 20:15 04/04/20 20:14 01/24/20 23:53 Dextrose (Dextrose 50%) 50 ml Q30M PRN IV Hypoglycemia 01/05/20 20:15 04/04/20 20:14 Dextrose/Sodium Chloride 1,000 ml @ 60 mls/hr [id number] IV 01/24/20 13:30 02/23/20 13:29 02/03/20 05:35 Lansoprazole (Prevacid) 30 mg Q12HR NG 01/28/20 21:00 02/27/20 20:59 02/03/20 09:50 Linaclotide (Linzess) 290 mcg BEFORE BREAKFAST ORAL 01/10/20 06:30 04/09/20 06:29 02/03/20 05:35 Loperamide HCl (Imodium) 2 mg Q6H PRN NG Diarrhea 01/27/20 15:45 02/26/20 15:44 01/27/20 17:58 Metoclopramide HCl (Reglan) 10 mg EVERY 6 HOURS NG 01/19/20 12:00 02/18/20 11:59 02/03/20 12:06 Metoclopramide HCl (Reglan) 10 mg Q6H PRN IVP Nausea & Vomiting 01/16/20 13:00 02/15/20 12:59 Midodrine (Pro-Amatine) 10 mg Q8HR NG 01/20/20 22:00 04/13/20 17:59 02/02/20 05:50 Ondansetron HCl (Zofran) 4 mg Q6H PRN IVP Nausea & Vomiting 01/10/20 06:30 02/09/20 06:29 Piperacillin Sod/ Tazobactam Sod 3.375 gm/Sodium Chloride 110 ml @ 27.5 mls/hr EVERY 8 HOURS IVPB 01/30/20 14:00 02/04/20 13:59 02/03/20 05:35 Polyethylene Glycol (Miralax) 17 gm BEDTIME NG 01/11/20 21:00 02/08/20 20:59 01/29/20 20:39 Sennosides (Senokot) 8.6 mg QHS NG 01/11/20 21:00 02/11/20 20:59 01/29/20 20:39 Vitamin D (Vitamin D) 3,000 intlu DAILY GT 01/19/20 12:00 02/18/20 11:59 02/03/20 09:50 Laboratory Tests 02/03/20 00:08: POC Whole Blood Glucose 120H 02/03/20 05:17: POC Whole Blood Glucose 101 02/03/20 06:00: White Blood Count 10.2, Red Blood Count 2.62L, Hemoglobin 7.5L, Hematocrit 22.1L , Mean Corpuscular Volume 84, Mean Corpuscular Hemoglobin 28.7, Mean Corpuscular Hemoglobin Concent 34.0, Red Cell Distribution Width 20.9H, Platelet Count 263, Mean Platelet Volume 7.0, Neutrophils (%) (Auto) , Lymphocytes (%) (Auto) , Monocytes (%) (Auto) , Eosinophils (%) (Auto) , Basophils (%) (Auto) , Differential Total Cells Counted 100, Neutrophils % (Manual) 85H, Lymphocytes % (Manual) 4L, Monocytes % (Manual) 7, Eosinophils % (Manual) 1, Basophils % (Manual) 0, Metamyelocytes % 1H, Myelocytes % 2H, Band Neutrophils 0, Platelet Estimate Adequate, Platelet Morphology Normal, Polychromasia Occasional, Anisocytosis 2+, Sodium Level 140, Potassium Level 3.1L, Chloride Level 110H, Carbon Dioxide Level 21, Anion Gap 9, Blood Urea Nitrogen 11, Creatinine 0.9, Estimat Glomerular Filtration Rate > 60, Glucose Level 105, Calcium Level 6.7L 02/03/20 10:50: Prothrombin Time 12.3H, Prothromb Time International Ratio 1.1, Activated Partial Thromboplast Time 28 Height (Feet): 5 Height (Inches): 9.00 Weight (Pounds): 149 General Appearance: no apparent distress EENT: other - Intubated on ventilator Cardiovascular: tachycardia Respiratory/Chest: decreased breath sounds Abdomen: distended Dhiraj Biswas MD Feb 03, 2020 14:29
--- NOTE | 2020-02-03 14:57 | Surgery Progress Note ---
Surgery Progress Note Subjective Procedure Performed Right femoral temporary hemodialysis catheter insertion Additional Comments ill appearing labs noted will discuss with pulm for trach Objective Last 24 Hour Vital Signs Date Time Temp Pulse Resp B/P (MAP) Pulse Ox O2 Delivery O2 Flow Rate FiO2 02/03/20 14:00 93 20 115/68 (84) 100 02/03/20 13:00 96 19 123/68 (86) 100 02/03/20 12:00 97.1 99 20 114/60 (78) 100 02/03/20 12:00 30 02/03/20 12:00 95 02/03/20 12:00 Mechanical Ventilator 02/03/20 11:18 102 22 30 02/03/20 11:00 99 20 117/67 (84) 100 02/03/20 10:00 98 19 111/61 (78) 100 02/03/20 09:00 101 20 147/82 (103) 100 02/03/20 08:00 30 02/03/20 08:00 100 02/03/20 08:00 97.5 100 20 135/77 (96) 100 02/03/20 08:00 Mechanical Ventilator 02/03/20 07:00 104 22 121/78 (92) 100 02/03/20 06:50 98 20 30 02/03/20 06:00 106 22 136/88 (104) 100 02/03/20 05:00 100 21 124/74 (91) 100 02/03/20 04:00 30 02/03/20 04:00 Mechanical Ventilator 02/03/20 04:00 100 02/03/20 04:00 99.1 96 20 129/70 (89) 100 02/03/20 03:01 97 22 30 02/03/20 03:00 100 20 135/82 (99) 100 02/03/20 02:00 93 19 126/73 (90) 100 02/03/20 01:00 91 18 130/73 (92) 100 02/03/20 00:00 95 02/03/20 00:00 Mechanical Ventilator 02/03/20 00:00 99.0 91 20 128/78 (95) 100 02/02/20 23:00 97 22 131/88 (102) 100 02/02/20 22:49 93 22 30 02/02/20 22:00 103 26 139/81 (100) 100 02/02/20 21:00 95 20 129/76 (93) 100 02/02/20 20:00 30 02/02/20 20:00 Mechanical Ventilator 02/02/20 20:00 74 02/02/20 20:00 98.4 85 19 122/73 (89) 100 02/02/20 19:07 92 21 136/78 (97) 100 02/02/20 18:58 89 20 30 02/02/20 18:00 83 19 120/73 (89) 100 02/02/20 17:00 83 20 120/72 (88) 100 02/02/20 16:00 84 02/02/20 16:00 98.2 02/02/20 16:00 Mechanical Ventilator 02/02/20 16:00 85 19 121/71 (88) 99 02/02/20 16:00 30 02/02/20 15:20 87 24 30 02/02/20 15:00 79 19 124/72 (89) 100 I&O Intake and Output 02/02/20 02/03/20 19:00 07:00 Intake Total 2160.0 ml 1450 ml Output Total 800 ml 685 ml Balance 1360.0 ml 765 ml Free Water 130 ml IV Total 1500.0 ml 660 ml Tube Feeding 660 ml 660 ml Output Urine Total 800 ml 655 ml Stool Total 30 ml Cardiovascular: RSR Respiratory: decreased breath sounds Abdomen: soft, non-tender, present bowel sounds Extremities: no tenderness, no cyanosis Laboratory Tests Test 02/03/20 00:08 02/03/20 05:17 02/03/20 06:00 02/03/20 10:50 POC Whole Blood Glucose 120 MG/DL (74-106) H 101 MG/DL (74-106) White Blood Count 10.2 K/UL (4.8-10.8) Red Blood Count 2.62 M/UL (4.70-6.10) L Hemoglobin 7.5 G/DL (14.2-18.0) L Hematocrit 22.1 % (42.0-52.0) L Mean Corpuscular Volume 84 FL (80-99) Mean Corpuscular Hemoglobin 28.7 PG (27.0-31.0) Mean Corpuscular Hemoglobin Concent 34.0 G/DL (32.0-36.0) Red Cell Distribution Width 20.9 % (11.6-14.8) H Platelet Count 263 K/UL (150-450) Mean Platelet Volume 7.0 FL (6.5-10.1) Neutrophils (%) (Auto) % (45.0-75.0) Lymphocytes (%) (Auto) % (20.0-45.0) Monocytes (%) (Auto) % (1.0-10.0) Eosinophils (%) (Auto) % (0.0-3.0) Basophils (%) (Auto) % (0.0-2.0) Differential Total Cells Counted 100 Neutrophils % (Manual) 85 % (45-75) H Lymphocytes % (Manual) 4 % (20-45) L Monocytes % (Manual) 7 % (1-10) Eosinophils % (Manual) 1 % (0-3) Basophils % (Manual) 0 % (0-2) Metamyelocytes % 1 % (0-0) H Myelocytes % 2 % (0-0) H Band Neutrophils 0 % (0-8) Platelet Estimate Adequate Platelet Morphology Normal Polychromasia Occasional Anisocytosis 2+ Sodium Level 140 MMOL/L (136-145) Potassium Level 3.1 MMOL/L (3.5-5.1) L Chloride Level 110 MMOL/L (98-107) H Carbon Dioxide Level 21 MMOL/L (21-32) Anion Gap 9 mmol/L (5-15) Blood Urea Nitrogen 11 mg/dL (7-18) Creatinine 0.9 MG/DL (0.55-1.30) Estimat Glomerular Filtration Rate > 60 mL/min (>60) Glucose Level 105 MG/DL (74-106) Calcium Level 6.7 MG/DL (8.5-10.1) L Prothrombin Time 12.3 SEC (9.30-11.50) H Prothromb Time International Ratio 1.1 (0.9-1.1) Activated Partial Thromboplast Time 28 SEC (23-33) Plan Problems: (1) Altered level of consciousness Assessment & Plan: weaning vent unsure if will be safe for extubation consider trach (2) Hypovolemic shock Assessment & Plan: resuscitation extubated monitor respiratory keep hob elevated supplemental O2 coded intubated in icu prognosis guarded ?code status change ?trach Gallbladder demonstrates sludge. No stones, wall thickening, nor pericholecystic fluid. Patient unable to report Wilson's sign Common bile duct measures 3 mm in diameter. No intrahepatic biliary ductal dilatation. Liver demonstrates coarsened echogenicity and surface nodularity. It demonstrates multiple cysts. Portal vein and hepatic veins are patent. The pancreas demonstrates 3 hypoechoic lesions in the head and body, measuring approximately 5 mm in diameter each. Spleen is unremarkable, poorly visualized. Left kidney measures 11.4 cm in length. Right kidney measures 11.3 cm length. Both kidneys demonstrate normal echogenicity. There is severe right and moderate left hydronephrosis. Echogenic foci are seen in the left renal sinus and collecting system. Bladder is empty, contains a Mathew catheter. Non-aneurysmal abdominal aorta . There are bilateral pleural effusions Impression: Bilateral right greater than left hydronephrosis, increased since prior study of 03/20/2019. Etiology not demonstrated Empty bladder with a Mathew catheter 3 hypoechoic lesions within the pancreatic head and body, each measuring about 5 mm. Appearance nonspecific. Recommend further evaluation with pancreas protocol MRI Bilateral pleural effusions Echogenic liver, consistent with hepatocellular disease. Surface likely nodularity raises concern for cirrhosis Gallbladder sludge. Negative for dilated bile ducts Probable nonobstructive left intrarenal calculi Multiple hepatic cysts (3) Lactic acid acidosis (4) Hypernatremia (5) Paraplegia (6) Anemia Assessment & Plan: no active bleeding noted no large hematoma dressings okay likely related to heme will monitor transfuse prbc with HD trend labs thank you (7) Diabetes (8) Weak (9) HTN (hypertension) (10) ARF (acute renal failure) (11) Hypercalcemia (12) Hyperuricemia (13) Dehydration (14) UTI (urinary tract infection) (15) Failure to thrive in adult Assessment & Plan: patient identified to have DTI on bilateral heels right with 5cm x 4cm area of dti not open no drainage no signs of infection left with 3cm x 2cm. pillow under leg optifoam dressings nutritional optimization will follow no acute surgery DAILY ESTIMATED NEEDS: Needs based on underweight, suspected wt loss, HD, CRITICAL CARE/ 57.6kg 25-33 kcals/kg 4105-2410 total kcals 1.2-2 g protein/kg 69-115 g total protein 25-30 mL/kg 1499-4976 total fluid mLs NUTRITION DIAGNOSIS: *Increased kcal and pro needs r/t underweight status, suspected significant wt loss as evidenced by pt @ 71% IBW w/ BMI 17.2, underweight per guidelines, w/ suspected signficant wt loss of 30lbs/19% in 10 months. * Swallowing difficulty R/T dysphagia, respiratory status as evidenced by s/p NGT insertion (01/08), now NPO, s/p code blue (01/10), orally intubated. CURRENT TF:NPO ENTERAL NUTRITION RECOMMENDATIONS: WHEN HEMODYNAMICALLY STABLE: Nepro @ 40ml/hr x 24 hrs to provide 960ml, 1728kcal, 77g prot, 698ml free water WHEN HEMODYNAMICALLY STABLE AND MEDICALLY APPROPRIATE TO FEED: -> initiate TF @ 5ml/hr x 6hrs, advance slowly 5ml q 4-6 hrs as tolerated to goal rate -> HOB over 30 degrees/ water flush per MD WITHOUT HEMODYNAMIC STABILITY -> If medically appropriate to feed, rec trophic feeding of Nepro @ 5ml/hr x 24 hrs to maintain gut integrity (16) Pelvic mass Assessment & Plan: invasive pelvic mass likely prostate necrotic nodes likely spread recommend colonoscopy given invasion possible to rectum oncology input thank you There is a large pelvic mass which is cephalad to but inseparable from the prostate. This also is inseparable from the posterior wall of the bladder and there appears to be circumferential bladder wall thickening. This mass also appears to involve the seminal vesicles. This measures approximately 8.8 cm transverse by 10 cm craniocaudad by 7.4 cm AP. The periphery of this mass is very lobulated. The mass may also invade the adjacent rectum. There is bilateral iliac chain lymphadenopathy, with nodes measuring up to 3 cm in diameter. Some of these nodes are very low in attenuation indicating that they are necrotic. There is also retroperitoneal lymphadenopathy. There is severe right and moderate left hydronephrosis and bilateral hydroureter. The dilated ureters terminate at the level of the mass. No intrinsic renal parenchymal abnormality. The pancreas is unremarkable. No findings corresponding to the areas of low-attenuation described on prior sonogram are evident. No pancreatic ductal dilatation is evident. The liver demonstrates multiple cysts. The gallbladder, bile ducts, spleen, adrenals are unremarkable. The bones demonstrate diffuse involvement with multiple mixed osteolytic/osteosclerotic lesions, mostly sclerotic component predominating. There is a right groin dialysis catheter in place, tip at the level of the iliac venous confluence. There is a nasogastric tube,, tip in the stomach. There is a Mathew catheter. There is a rectal tube lying outside the patient with the balloon inflated within the inner gluteal fold. There are bilateral pleural effusions. There is compressive atelectasis of most if not all of both lower lobes. 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 Compressive atelectasis of most of not all of both lower lobes Other findings as noted, including multiple liver cysts Lázaro Jenkins Feb 03, 2020 14:57
--- NOTE | 2020-02-03 15:59 | Pulmonolgy Critical Care Note ---
Critical Care - Asmt/Plan Assessment/Plan: Pulmonary Progress Note Assessment/Plan Assessment/Plan acute respiratory failure bacteremia diabetes hypertension ARF toxic met encephalopathy patchy pneumonia pleural effusions free water deficit - renal following PLAN care noted IV antibiotics respiratory care Ventilatory support reviewed meds supportive care suction wean PRN oxygen therapy prognosis guarded nutrition off load follow up labs and acid base medications/laboratory data/nursing notes/ICU care reviewed in detail note reviewed and edited care discussed with RN and RT ICU time spent >40 minutes Critical Care - Subjective Interval Events: stable on vent sedated ROS Limited/Unobtainable: Yes Condition: critical EKG Rhythm: Sinus Rhythm Critical Care - Objective ET-Tube: 7.0 ET Position: 24 Vital Signs noted Objective: WDWN NAD oral ETT reduced breath sounds bilaterally [id number] without MRG NABS nontender feeding tub no CCE poor LOC Laboratory Tests noted Imaging noted Critical Care - Objective Last 24 Hour Vital Signs Date Time Temp Pulse Resp B/P (MAP) Pulse Ox O2 Delivery O2 Flow Rate FiO2 02/03/20 14:00 93 20 115/68 (84) 100 02/03/20 13:00 96 19 123/68 (86) 100 02/03/20 12:00 97.1 99 20 114/60 (78) 100 02/03/20 12:00 30 02/03/20 12:00 95 02/03/20 12:00 Mechanical Ventilator 02/03/20 11:18 102 22 30 02/03/20 11:00 99 20 117/67 (84) 100 02/03/20 10:00 98 19 111/61 (78) 100 02/03/20 09:00 101 20 147/82 (103) 100 02/03/20 08:00 30 02/03/20 08:00 100 02/03/20 08:00 97.5 100 20 135/77 (96) 100 02/03/20 08:00 Mechanical Ventilator 02/03/20 07:00 104 22 121/78 (92) 100 02/03/20 06:50 98 20 30 02/03/20 06:00 106 22 136/88 (104) 100 02/03/20 05:00 100 21 124/74 (91) 100 02/03/20 04:00 30 02/03/20 04:00 Mechanical Ventilator 02/03/20 04:00 100 02/03/20 04:00 99.1 96 20 129/70 (89) 100 02/03/20 03:01 97 22 30 02/03/20 03:00 100 20 135/82 (99) 100 02/03/20 02:00 93 19 126/73 (90) 100 02/03/20 01:00 91 18 130/73 (92) 100 02/03/20 00:00 95 02/03/20 00:00 Mechanical Ventilator 02/03/20 00:00 99.0 91 20 128/78 (95) 100 02/02/20 23:00 97 22 131/88 (102) 100 02/02/20 22:49 93 22 30 02/02/20 22:00 103 26 139/81 (100) 100 02/02/20 21:00 95 20 129/76 (93) 100 02/02/20 20:00 30 02/02/20 20:00 Mechanical Ventilator 02/02/20 20:00 74 02/02/20 20:00 98.4 85 19 122/73 (89) 100 02/02/20 19:07 92 21 136/78 (97) 100 02/02/20 18:58 89 20 30 02/02/20 18:00 83 19 120/73 (89) 100 02/02/20 17:00 83 20 120/72 (88) 100 02/02/20 16:00 84 02/02/20 16:00 98.2 02/02/20 16:00 Mechanical Ventilator 02/02/20 16:00 85 19 121/71 (88) 99 02/02/20 16:00 30 Micro: Microbiology Date/Time Source Procedure Growth Status 02/02/20 15:30 Stool Clostridium difficile Toxin Assay - Final Complete 02/02/20 15:30 Sputum Gram Stain - Final Resulted 02/02/20 15:30 Sputum Sputum Culture - Preliminary NO GROWTH Resulted 02/02/20 14:22 Catheter Site Catheter Tip Culture - Preliminary NO GROWTH Resulted Accucheck: 101 Critical Care - Subjective ROS Limited/Unobtainable: Yes FI02: 30 Vent Support Breath Rate: 12 Vent Support Mode: AC Vent Tidal Volume: 500 Sputum Amount: Moderate PEEP: 5.0 PIP: 20 Tube Feeding Amount: 55 I&O: Intake and Output 02/02/20 02/03/20 19:00 07:00 Intake Total 2160.0 ml 1450 ml Output Total 800 ml 685 ml Balance 1360.0 ml 765 ml Free Water 130 ml IV Total 1500.0 ml 660 ml Tube Feeding 660 ml 660 ml Output Urine Total 800 ml 655 ml Stool Total 30 ml ET-Tube: 7.0 ET Position: 24 Demario Ring MD Feb 03, 2020 15:59
--- NOTE | 2020-02-03 16:23 | Cardiac Electrophysiology PN ---
Assessment/Plan Assessment/Plan 1. Altered mental status due to severe dehydration in view of sodium of 160 and acute renal failure. On IV fluids and IV antibiotics. Ruled out for [place]. 2. Septic shock, off levophed and on iv Abx On Midodrine 10 tid 3. History of CVA, off Plavix in view of hematuria. 4. Respiratory failure, Extubated 01/22 and reintubated 01/29/20 Likely need tracheostomy 5. Diabetes. 6. Acute renal failure. Cr 4.2. Had HD once only on 01/11/20. No more HD needed and Cr 1.2 7. Hematuria 8. Anemia with Hb 5.8 and coffee ground emesis. FU Dr Bueno 9. Shock liver with increase AST>2000 10. Metastatic prostate cancer -- w psa [id number] with a Large pelvic mass involving the prostate, bladder, seminal vesicles, presumably representing prostatic malignancy Severe right and moderate left hydronephrosis and bilateral hydroureter, due to ureteral obstruction by the above mass 11. Dysphagia, NGT feeding. PEG pending after Trach KARLO RN and Dr Biswas Subjective Subjective Coded 01/19 for respiratory failure followed by bradycardia and PEA. Extubated 01/23/20. PEG cancelled due to respiratory issue Had LICENSED [employer]ICIAN and then had asystole and was intubated and started on Levophed. Now off Levo and off sedation and no restraints. PEG placement postponed to after tracheostomy Mega removed from Right FV and placed in Right IJ Objective Last 24 Hour Vital Signs Date Time Temp Pulse Resp B/P (MAP) Pulse Ox O2 Delivery O2 Flow Rate FiO2 02/03/20 15:20 96 20 30 02/03/20 14:00 93 20 115/68 (84) 100 02/03/20 13:00 96 19 123/68 (86) 100 02/03/20 12:00 97.1 99 20 114/60 (78) 100 02/03/20 12:00 30 02/03/20 12:00 95 02/03/20 12:00 Mechanical Ventilator 02/03/20 11:18 102 22 30 02/03/20 11:00 99 20 117/67 (84) 100 02/03/20 10:00 98 19 111/61 (78) 100 02/03/20 09:00 101 20 147/82 (103) 100 11/29/20 08:00 30 02/03/20 08:00 100 02/03/20 08:00 97.5 100 20 135/77 (96) 100 02/03/20 08:00 Mechanical Ventilator 02/03/20 07:00 104 22 121/78 (92) 100 02/03/20 06:50 98 20 30 02/03/20 06:00 106 22 136/88 (104) 100 02/03/20 05:00 100 21 124/74 (91) 100 02/03/20 04:00 30 02/03/20 04:00 Mechanical Ventilator 02/03/20 04:00 100 02/03/20 04:00 99.1 96 20 129/70 (89) 100 02/03/20 03:01 97 22 30 02/03/20 03:00 100 20 135/82 (99) 100 02/03/20 02:00 93 19 126/73 (90) 100 02/03/20 01:00 91 18 130/73 (92) 100 02/03/20 00:00 95 02/03/20 00:00 Mechanical Ventilator 02/03/20 00:00 99.0 91 20 128/78 (95) 100 02/02/20 23:00 97 22 131/88 (102) 100 02/02/20 22:49 93 22 30 02/02/20 22:00 103 26 139/81 (100) 100 02/02/20 21:00 95 20 129/76 (93) 100 02/02/20 20:00 30 02/02/20 20:00 Mechanical Ventilator 02/02/20 20:00 74 02/02/20 20:00 98.4 85 19 122/73 (89) 100 02/02/20 19:07 92 21 136/78 (97) 100 02/02/20 18:58 89 20 30 02/02/20 18:00 83 19 120/73 (89) 100 02/02/20 17:00 83 20 120/72 (88) 100 Intake and Output 02/02/20 02/03/20 19:00 07:00 Intake Total 2160.0 ml 1450 ml Output Total 800 ml 685 ml Balance 1360.0 ml 765 ml Free Water 130 ml IV Total 1500.0 ml 660 ml Tube Feeding 660 ml 660 ml Output Urine Total 800 ml 655 ml Stool Total 30 ml Laboratory Tests Test 02/03/20 00:08 02/03/20 05:17 02/03/20 06:00 02/03/20 10:50 POC Whole Blood Glucose 120 MG/DL (74-106) H 101 MG/DL (74-106) White Blood Count 10.2 K/UL (4.8-10.8) Red Blood Count 2.62 M/UL (4.70-6.10) L Hemoglobin 7.5 G/DL (14.2-18.0) L Hematocrit 22.1 % (42.0-52.0) L Mean Corpuscular Volume 84 FL (80-99) Mean Corpuscular Hemoglobin 28.7 PG (27.0-31.0) Mean Corpuscular Hemoglobin Concent 34.0 G/DL (32.0-36.0) Red Cell Distribution Width 20.9 % (11.6-14.8) H Platelet Count 263 K/UL (150-450) Mean Platelet Volume 7.0 FL (6.5-10.1) Neutrophils (%) (Auto) % (45.0-75.0) Lymphocytes (%) (Auto) % (20.0-45.0) Monocytes (%) (Auto) % (1.0-10.0) Eosinophils (%) (Auto) % (0.0-3.0) Basophils (%) (Auto) % (0.0-2.0) Differential Total Cells Counted 100 Neutrophils % (Manual) 85 % (45-75) H Lymphocytes % (Manual) 4 % (20-45) L Monocytes % (Manual) 7 % (1-10) Eosinophils % (Manual) 1 % (0-3) Basophils % (Manual) 0 % (0-2) Metamyelocytes % 1 % (0-0) H Myelocytes % 2 % (0-0) H Band Neutrophils 0 % (0-8) Platelet Estimate Adequate Platelet Morphology Normal Polychromasia Occasional Anisocytosis 2+ Sodium Level 140 MMOL/L (136-145) Potassium Level 3.1 MMOL/L (3.5-5.1) L Chloride Level 110 MMOL/L (98-107) H Carbon Dioxide Level 21 MMOL/L (21-32) Anion Gap 9 mmol/L (5-15) Blood Urea Nitrogen 11 mg/dL (7-18) Creatinine 0.9 MG/DL (0.55-1.30) Estimat Glomerular Filtration Rate > 60 mL/min (>60) Glucose Level 105 MG/DL (74-106) Calcium Level 6.7 MG/DL (8.5-10.1) L Prothrombin Time 12.3 SEC (9.30-11.50) H Prothromb Time International Ratio 1.1 (0.9-1.1) Activated Partial Thromboplast Time 28 SEC (23-33) Microbiology Date/Time Source Procedure Growth Status 02/02/20 15:30 Stool Clostridium difficile Toxin Assay - Final Complete 02/02/20 15:30 Sputum Gram Stain - Final Resulted 02/02/20 15:30 Sputum Sputum Culture - Preliminary NO GROWTH Resulted 02/02/20 14:22 Catheter Site Catheter Tip Culture - Preliminary NO GROWTH Resulted Objective HEAD AND NECK: NGT in place. Orally intubated LUNGS: Coarse rhonchi. CARDIOVASCULAR: Regular S1 and S2 with no gallop. ABDOMEN: Soft. EXTREMITIES: No pitting edema. Kevin Lopez MD Feb 03, 2020 16:23
--- NOTE | 2020-02-03 18:28 | Pulmonology Progress Note ---
Subjective ROS Limited/Unobtainable: Yes Interval Events: Remains intubated Constitutional: Reports: no symptoms HEENT: Repors: no symptoms Respiratory: Reports: no symptoms Cardiovascular: Reports: no symptoms Gastrointestinal/Abdominal: Reports: no symptoms Genitourinary: Reports: no symptoms Allergies: Coded Allergies: No Known Allergies (Unverified , 03/18/19) All Systems: reviewed and negative except above Objective Last 24 Hour Vital Signs Date Time Temp Pulse Resp B/P (MAP) Pulse Ox O2 Delivery O2 Flow Rate FiO2 02/03/20 16:00 30 02/03/20 15:20 96 20 30 02/03/20 14:00 93 20 115/68 (84) 100 02/03/20 13:00 96 19 123/68 (86) 100 02/03/20 12:00 97.1 99 20 114/60 (78) 100 02/03/20 12:00 30 02/03/20 12:00 95 02/03/20 12:00 Mechanical Ventilator 02/03/20 11:18 102 22 30 02/03/20 11:00 99 20 117/67 (84) 100 02/03/20 10:00 98 19 111/61 (78) 100 02/03/20 09:00 101 20 147/82 (103) 100 02/03/20 08:00 30 02/03/20 08:00 100 02/03/20 08:00 97.5 100 20 135/77 (96) 100 02/03/20 08:00 Mechanical Ventilator 02/03/20 07:00 104 22 121/78 (92) 100 02/03/20 06:50 98 20 30 02/03/20 06:00 106 22 136/88 (104) 100 02/03/20 05:00 100 21 124/74 (91) 100 02/03/20 04:00 30 02/03/20 04:00 Mechanical Ventilator 02/03/20 04:00 100 02/03/20 04:00 99.1 96 20 129/70 (89) 100 02/03/20 03:01 97 22 30 02/03/20 03:00 100 20 135/82 (99) 100 02/03/20 02:00 93 19 126/73 (90) 100 02/03/20 01:00 91 18 130/73 (92) 100 02/03/20 00:00 95 02/03/20 00:00 Mechanical Ventilator 02/03/20 00:00 99.0 91 20 128/78 (95) 100 02/02/20 23:00 97 22 131/88 (102) 100 02/02/20 22:49 93 22 30 02/02/20 22:00 103 26 139/81 (100) 100 02/02/20 21:00 95 20 129/76 (93) 100 02/02/20 20:00 30 02/02/20 20:00 Mechanical Ventilator 02/02/20 20:00 74 02/02/20 20:00 98.4 85 19 122/73 (89) 100 02/02/20 19:07 92 21 136/78 (97) 100 02/02/20 18:58 89 20 30 Intake and Output 02/02/20 02/03/20 19:00 07:00 Intake Total 2160.0 ml 1450 ml Output Total 800 ml 685 ml Balance 1360.0 ml 765 ml Free Water 130 ml IV Total 1500.0 ml 660 ml Tube Feeding 660 ml 660 ml Output Urine Total 800 ml 655 ml Stool Total 30 ml General Appearance: no acute distress HEENT: normocephalic Respiratory: chest wall non-tender, lungs clear Cardiovascular: normal peripheral pulses, normal rate Abdomen: normal bowel sounds Microbiology Date/Time Source Procedure Growth Status 02/02/20 15:30 Stool Clostridium difficile Toxin Assay - Final Complete 02/02/20 15:30 Sputum Gram Stain - Final Resulted 02/02/20 15:30 Sputum Sputum Culture - Preliminary NO GROWTH Resulted 02/02/20 14:22 Catheter Site Catheter Tip Culture - Preliminary NO GROWTH Resulted Laboratory Tests 02/03/20 00:08: POC Whole Blood Glucose 120H 02/03/20 05:17: POC Whole Blood Glucose 101 02/03/20 06:00: White Blood Count 10.2, Red Blood Count 2.62L, Hemoglobin 7.5L, Hematocrit 22.1L , Mean Corpuscular Volume 84, Mean Corpuscular Hemoglobin 28.7, Mean Corpuscular Hemoglobin Concent 34.0, Red Cell Distribution Width 20.9H, Platelet Count 263, Mean Platelet Volume 7.0, Neutrophils (%) (Auto) , Lymphocytes (%) (Auto) , Monocytes (%) (Auto) , Eosinophils (%) (Auto) , Basophils (%) (Auto) , Differential Total Cells Counted 100, Neutrophils % (Manual) 85H, Lymphocytes % (Manual) 4L, Monocytes % (Manual) 7, Eosinophils % (Manual) 1, Basophils % (Manual) 0, Metamyelocytes % 1H, Myelocytes % 2H, Band Neutrophils 0, Platelet Estimate Adequate, Platelet Morphology Normal, Polychromasia Occasional, Anisocytosis 2+, Sodium Level 140, Potassium Level 3.1L, Chloride Level 110H, Carbon Dioxide Level 21, Anion Gap 9, Blood Urea Nitrogen 11, Creatinine 0.9, Estimat Glomerular Filtration Rate > 60, Glucose Level 105, Calcium Level 6.7L 02/03/20 10:50: Prothrombin Time 12.3H, Prothromb Time International Ratio 1.1, Activated Partial Thromboplast Time 28 Current Medications Medications (Trade) Dose Ordered Sig/Jesse Route PRN Reason Start Time Stop Time Status Last Admin Dose Admin Acetaminophen (Tylenol) 650 mg Q4H PRN ORAL PRNH/TEMP 01/05/20 20:15 02/11/20 20:14 01/12/20 03:10 Bisacodyl (Dulcolax) 10 mg DAILY PRN RECTAL Constipation 01/05/20 20:15 04/04/20 20:14 Chlorhexidine Gluconate (Navya-Hex 2%) 1 applic DAILY@2000 TOPIC 01/11/20 20:00 04/10/20 19:59 02/02/20 20:03 Dextrose (Dextrose 50%) 25 ml Q30M PRN IV Hypoglycemia 01/05/20 20:15 04/04/20 20:14 01/24/20 23:53 Dextrose (Dextrose 50%) 50 ml Q30M PRN IV Hypoglycemia 01/05/20 20:15 04/04/20 20:14 Dextrose/Sodium Chloride 1,000 ml @ 60 mls/hr [id number] IV 01/24/20 13:30 02/23/20 13:29 02/03/20 05:35 Lansoprazole (Prevacid) 30 mg Q12HR NG 01/28/20 21:00 02/27/20 20:59 02/03/20 09:50 Linaclotide (Linzess) 290 mcg BEFORE BREAKFAST ORAL 01/10/20 06:30 04/09/20 06:29 02/03/20 05:35 Loperamide HCl (Imodium) 2 mg Q6H PRN NG Diarrhea 01/27/20 15:45 02/26/20 15:44 01/27/20 17:58 Metoclopramide HCl (Reglan) 10 mg EVERY 6 HOURS NG 01/19/20 12:00 02/18/20 11:59 02/03/20 17:48 Metoclopramide HCl (Reglan) 10 mg Q6H PRN IVP Nausea & Vomiting 01/16/20 13:00 02/15/20 12:59 Midodrine (Pro-Amatine) 10 mg Q8HR NG 01/20/20 22:00 04/13/20 17:59 02/02/20 05:50 Ondansetron HCl (Zofran) 4 mg Q6H PRN IVP Nausea & Vomiting 01/10/20 06:30 02/09/20 06:29 Piperacillin Sod/ Tazobactam Sod 3.375 gm/Sodium Chloride 110 ml @ 27.5 mls/hr EVERY 8 HOURS IVPB 01/30/20 14:00 02/04/20 13:59 02/03/20 17:47 Polyethylene Glycol (Miralax) 17 gm BEDTIME NG 01/11/20 21:00 02/08/20 20:59 01/29/20 20:39 Sennosides (Senokot) 8.6 mg QHS NG 01/11/20 21:00 02/11/20 20:59 01/29/20 20:39 Vitamin D (Vitamin D) 3,000 intlu DAILY GT 01/19/20 12:00 02/18/20 11:59 02/03/20 09:50 Assessment/Plan Assessment/Plan IMPRESSION: 1. Severe metabolic acidosis. Corrected; now has combined respiratory and metabolic alkalosis 2. Respiratory failure; now reintubated 3. Diarrhea. Resolved 4. Acute renal failure. Nephrology following; 5. Anemia; DISCUSSION: EGD and PEG postponed Remains obtunded Intubated Poor prognosis Recommend comfort care Daxa Infante Omar Syed MD Feb 03, 2020 18:28
[2020-02-03] MEDS: Dyna-Hex 2% Top Sol 2oz TOPIC SCH (20:06)
[2020-02-03] MEDS: Sennosides 8.6mg tab NG SCH (20:35)
[2020-02-03] MEDS: Miralax 17gm pkt NG SCH (20:35)
[2020-02-03] MEDS ORDERED: Acetaminophen 650mg/20.3ml NG PRN (22:15)
[2020-02-04] VITALS (24 sets, daily range): BP systolic 95–132; BP diastolic 49–98
[2020-02-04] MEDS: Piperacillin/Tazobactam 3.375 GM in NS 110 ML IVPB SCH ×3 (05:05→21:10)
[2020-02-04] MEDS: Metoclopramide 10mg/10ml Liq NG SCH ×4 (05:05→23:49)
[2020-02-04] MEDS: Midodrine 10mg tab NG SCH ×3 (05:06→21:11)
[2020-02-04 05:37] LABS: HEMATOCRIT 20.6 % (42.0-52.0); HEMOGLOBIN 7.1 G/DL (14.2-18.0); MEAN CORPUSCULAR VOLUME 83 FL (80-99); PLATELET COUNT 248 K/UL (150-450); RED BLOOD COUNT 2.48 M/UL (4.70-6.10); RED CELL DISTRIBUTION WIDTH 21.2 % (11.6-14.8)
[2020-02-04 06:03] LABS: ALANINE AMINOTRANSFERASE 25 U/L (12-78); ALBUMIN 1.5 G/DL (3.4-5.0); ALBUMIN/GLOBULIN RATIO 0.4 (1.0-2.7); ALKALINE PHOSPHATASE 202 U/L (46-116); ASPARTATE AMINO TRANSFERASE 48 U/L (15-37); BILIRUBIN,TOTAL 0.3 MG/DL (0.2-1.0); BLOOD UREA NITROGEN 11 mg/dL (7-18); CALCIUM 7.4 MG/DL (8.5-10.1); CARBON DIOXIDE 20 MMOL/L (21-32); CHLORIDE 107 MMOL/L (98-107); CREATININE 0.8 MG/DL (0.55-1.30); POTASSIUM 3.6 MMOL/L (3.5-5.1); SODIUM 138 MMOL/L (136-145)
--- NOTE | 2020-02-04 07:08 | Hematology/Onc Progress Note ---
Assessment/Plan Assessment/Plan Assessment/Recs # Metastatic prostate cancer -- w psa [id number], has a Large pelvic mass as described involving the prostate, bladder, seminal vesicles, presumably representing prostatic malignancy --> CT Evidence of disseminated malignancy, with extensive lymphadenopathy of and evidenc of diffuse osseous metastases Severe right and moderate left hydronephrosis and bilateral hydroureter, due to ureteral obstruction by the above mass --> tumor markers ordered, psa [id number] --> after above reviewed, consider further biopsy of prostate with uro as needed # Pancytopenia with initially Anemia due to underlying chronic medical issues, multifactorial v Gi bleed v malignancy --> Anemia workup has been ordered, rule out gi bleed --> No evidence of hemolysis is noted, peripheral smear has been reviewed. --> Hgb goal >7. Transfuse prn. --> Epogen or iron at this time is not particularly indicated --> Medications have been reviewed --> low threshold for gi evaluation in case has occult + --> hgb 10-->9.7-->9.2->10-->8.6-->7.7-->5-->8.3->9.3->7.8-->8.2-->8.1-->9.3-->9.9->10-> 7.5 --> 11/8 flow cytometry ordered bc of nucleated cells on smear-->neg --> wbc 5-->4-->3.9-->4 --> plt 150-->98-->82-->51->49-->46-->50-->68-->88-->109 --> hep and hiv panel--NEG --> us abd-->shows 3 small lesions, requires further eval --> CT a/p reviewed # Multiple lesions noted in pancreas --> MRI abd ordered--> nondiagnostic --> CT of the abd reviewed # Protein caloric malnutrition --> daily calorie counts --> daily weights --> mirtazapine started # Acute renal failure --> continue on ivfs --> as per renal # Hypokalemia --> replete with K # Severe dehydration --> ivfs ongoing # Respiratory failure --> s/p intubation # Hypernatremia indicative of severe water deficit # Severe hyperuricemia, partly due to dehydration and renal failure # Acute metabolic and toxic encephalopathy # Mild, malnutrition # Psych issues per psych # Lactic acid, possible sepsis # Dvt ppx heparin sq->Scds # Comfort care potentially The timing of this note does not necessarily reflect the time of the patient was seen. Greatly appreciate consultation. Subjective HEENT: Denies: no symptoms, eye pain, blurred vision, tearing, double vision, ear pain, ear discharge, nose pain, nose congestion, throat pain, throat swelling, mouth pain, mouth swelling, other Cardiovascular: Denies: no symptoms, chest pain, edema, irregular heart rate, lightheadedness, palpitations, syncope, other Respiratory: Denies: no symptoms, cough, shortness of breath, SOB with exce rtion, SOB at rest, sputum, wheezing, other Gastrointestinal/Abdominal: Denies: no symptoms, abdomen distended, abdominal pain, black stools, tarry stools, blood in stool, constipated, diarrhea, difficulty swallowing, nausea, poor appetite, poor fluid intake, rectal bleeding, vomiting, other Genitourinary: Denies: no symptoms, burning, discharge, frequency, flank pain, hematuria, incontinence, pain, urgency, other Neurologic/Psychiatric: Denies: no symptoms, anxiety, depressed, emotional problems, headache, numbness, paresthesia, pre-existing deficit, seizure, tingling, tremors, weakness, other Endocrine: Denies: no symptoms, excessive sweating, flushing, intolerance to c old, intolerance to heat, increased hunger, increased thirst, increased urine, unexplained weight gain, unexplained weight loss, other Allergies: Coded Allergies: No Known Allergies (Unverified , 03/18/19) Subjective 01/07 meds noted, no bleeding, hgb 10, no hemolysis, hgb 10.1 01/08 labs reviewed, vi rn, no major events, no bleeding, hgb lower 01/09 labs noted, no bleeding, vi rn, no major changes, plt lower 01/10 did have epistaxis overnight, no bleeding, night sweats, epistaxis better 01/12 icu, remains on vent, levo, no bleeding, meds noted 01/13 remains in icu, no bleeding, on levo, no major changes 01/14 icu, is on 1l, restarints are off, no bleeding, no night sweats 01/15 icu, meds noted, with diarrhea, rectal tube reinserted, on nc 01/16 out of icu, no bleeding, meds reviewed, cbc ad bmp pending 01/17 unable to lay still for the mri, thus ct ordered, vi [facility] 01/19 hgb 6.9, no bleeding, no hemolysis, ct reviewed 01/20 obtunded, meds reviewed, hgb is better, in icu 01/21 obtunded, npo, labs hjave been reviewed, hgb 9.2 01/22 obtunded, in icu, no bleeding, plt 109 01/23 obtunded still icu, on venturimask, meds reviewed, labs noted 01/24 obtunded, in icu, labs reviewed, meds noted, wbc 4.1, plt 133 01/26 is out of the icu, no bleeding, meds noted, labs ordered 01/27 nonverbal, out of icu, on feedigs, no bleeding, labs reviewed 01/28 icu, nv, is on midrinone, linzess, ivf 01/29 icu, off levop, ngt restarted, meds noted 01/30 icu, with large bm, labs reviewed, no f/c, zosyn 01/31 icu, levo is on hold, no bleeding, abx, hgb 7.5 02/02 in icu, intubated, with ngt, no bleeding, labs noted 02/03 icu, labs are noted, remains intubated, to get 1unit prbc Objective Objective Current Medications Medications (Trade) Dose Ordered Sig/Jesse Route PRN Reason Start Time Stop Time Status Last Admin Dose Admin Acetaminophen (Tylenol) 650 mg Q4H PRN NG Temp >100.5, mild pain 02/03/20 22:15 03/04/20 22:14 02/03/20 23:04 Bisacodyl (Dulcolax) 10 mg DAILY PRN RECTAL Constipation 01/05/20 20:15 04/04/20 20:14 Chlorhexidine Gluconate (Navya-Hex 2%) 1 applic DAILY@1999 TOPIC 01/11/20 20:00 04/10/20 19:59 02/03/20 20:06 Dextrose (Dextrose 50%) 25 ml Q30M PRN IV Hypoglycemia 01/05/20 20:15 04/04/20 20:14 01/24/20 23:53 Dextrose (Dextrose 50%) 50 ml Q30M PRN IV Hypoglycemia 01/05/20 20:15 04/04/20 20:14 Dextrose/Sodium Chloride 1,000 ml @ 60 mls/hr [id number] IV 01/24/20 13:30 02/23/20 13:29 02/03/20 21:21 Lansoprazole (Prevacid) 30 mg Q12HR NG 01/28/20 21:00 02/27/20 20:59 02/03/20 20:06 Linaclotide (Linzess) 290 mcg BEFORE BREAKFAST ORAL 01/10/20 06:30 04/09/20 06:29 02/03/20 05:35 Loperamide HCl (Imodium) 2 mg Q6H PRN NG Diarrhea 01/27/20 15:45 02/26/20 15:44 01/27/20 17:58 Metoclopramide HCl (Reglan) 10 mg EVERY 6 HOURS NG 01/19/20 12:00 02/18/20 11:59 02/04/20 05:05 Metoclopramide HCl (Reglan) 10 mg Q6H PRN IVP Nausea & Vomiting 01/16/20 13:00 02/15/20 12:59 Midodrine (Pro-Amatine) 10 mg Q8HR NG 01/20/20 22:00 04/13/20 17:59 02/02/20 05:50 Ondansetron HCl (Zofran) 4 mg Q6H PRN IVP Nausea & Vomiting 01/10/20 06:30 02/09/20 06:29 Piperacillin Sod/ Tazobactam Sod 3.375 gm/Sodium Chloride 110 ml @ 27.5 mls/hr EVERY 8 HOURS IVPB 01/30/20 14:00 02/04/20 13:59 02/04/20 05:05 Polyethylene Glycol (Miralax) 17 gm BEDTIME NG 01/11/20 21:00 02/08/20 20:59 01/29/20 20:39 Sennosides (Senokot) 8.6 mg QHS NG 01/11/20 21:00 02/11/20 20:59 01/29/20 20:39 Vitamin D (Vitamin D) 3,000 intlu DAILY GT 01/19/20 12:00 02/18/20 11:59 02/03/20 09:50 Last 24 Hour Vital Signs Date Time Temp Pulse Resp B/P (MAP) Pulse Ox O2 Delivery O2 Flow Rate FiO2 02/04/20 07:00 89 19 116/69 (85) 100 02/04/20 06:00 88 18 112/64 (80) 100 02/04/20 05:00 88 17 120/64 (82) 100 02/04/20 04:00 Mechanical Ventilator Mechanical Ventilator 02/04/20 04:00 98.9 85 18 116/64 (81) 100 02/04/20 04:00 30 02/04/20 03:14 90 02/04/20 03:03 82 16 30 02/04/20 03:03 82 16 100 Mechanical Ventilator 30 02/04/20 03:00 83 16 116/66 (83) 100 02/04/20 02:00 92 20 108/63 (78) 100 02/04/20 01:00 92 16 101/57 (72) 100 02/04/20 00:00 99.1 98 20 100/58 (72) 100 02/04/20 00:00 30 02/04/20 00:00 Mechanical Ventilator Mechanical Ventilator 02/03/20 23:02 97 02/03/20 23:00 97 21 111/67 (82) 100 02/03/20 22:59 96 20 30 02/03/20 22:00 91 20 111/63 (79) 100 02/03/20 21:00 96 21 105/64 (78) 100 02/03/20 20:00 Mechanical Ventilator Mechanical Ventilator 02/03/20 20:00 99.0 102 21 127/70 (89) 100 02/03/20 20:00 30 02/03/20 19:13 94 02/03/20 19:00 99 19 112/67 (82) 100 02/03/20 18:45 99 19 30 02/03/20 18:00 96 19 97/59 (72) 100 02/03/20 17:00 98 19 114/64 (81) 100 02/03/20 16:00 94 19 111/61 (78) 100 02/03/20 16:00 30 02/03/20 16:00 Mechanical Ventilator 02/03/20 16:00 94 02/03/20 15:20 96 20 30 02/03/20 15:00 98 19 114/64 (81) 100 02/03/20 14:00 93 20 115/68 (84) 100 02/03/20 13:00 96 19 123/68 (86) 100 02/03/20 12:00 97.1 99 20 114/60 (78) 100 02/03/20 12:00 30 02/03/20 12:00 95 02/03/20 12:00 Mechanical Ventilator 02/03/20 11:18 102 22 30 02/03/20 11:00 99 20 117/67 (84) 100 02/03/20 10:00 98 19 111/61 (78) 100 02/03/20 09:00 101 20 147/82 (103) 100 02/03/20 08:00 30 02/03/20 08:00 100 02/03/20 08:00 97.5 100 20 135/77 (96) 100 02/03/20 08:00 Mechanical Ventilator 02/03/20 07:00 104 22 121/78 (92) 100 02/03/20 06:50 98 20 30 02/03/20 06:00 106 22 136/88 (104) 100 02/03/20 05:00 100 21 124/74 (91) 100 02/03/20 04:00 30 02/03/20 04:00 Mechanical Ventilator 02/03/20 04:00 100 02/03/20 04:00 99.1 96 20 129/70 (89) 100 02/03/20 03:01 97 22 30 02/03/20 03:00 100 20 135/82 (99) 100 02/03/20 02:00 93 19 126/73 (90) 100 02/03/20 01:00 91 18 130/73 (92) 100 02/03/20 00:00 95 02/03/20 00:00 Mechanical Ventilator 02/03/20 00:00 99.0 91 20 128/78 (95) 100 02/02/20 23:00 97 22 131/88 (102) 100 02/02/20 22:49 93 22 30 02/02/20 22:00 103 26 139/81 (100) 100 02/02/20 21:00 95 20 129/76 (93) 100 02/02/20 20:00 30 02/02/20 20:00 Mechanical Ventilator 02/02/20 20:00 74 02/02/20 20:00 98.4 85 19 122/73 (89) 100 02/02/20 19:07 92 21 136/78 (97) 100 02/02/20 18:58 89 20 30 02/02/20 18:00 83 19 120/73 (89) 100 02/02/20 17:00 83 20 120/72 (88) 100 02/02/20 16:00 84 02/02/20 16:00 98.2 02/02/20 16:00 Mechanical Ventilator 02/02/20 16:00 85 19 121/71 (88) 99 02/02/20 16:00 30 02/02/20 15:20 87 24 30 02/02/20 15:00 79 19 124/72 (89) 100 02/02/20 14:00 87 17 126/66 (86) 100 02/02/20 13:00 80 17 123/85 (98) 100 02/02/20 12:00 91 18 138/80 (99) 100 02/02/20 12:00 98.4 02/02/20 12:00 Mechanical Ventilator 02/02/20 12:00 30 02/02/20 12:00 86 02/02/20 11:20 77 22 30 02/02/20 11:00 89 22 137/72 (93) 100 02/02/20 10:00 83 19 116/64 (81) 100 02/02/20 09:00 86 20 113/70 (84) 100 02/02/20 08:13 85 02/02/20 08:00 Mechanical Ventilator 02/02/20 08:00 30 02/02/20 08:00 98.7 87 18 116/67 (83) 100 Intake and Output0 02/03/20 02/04/20 19:00 07:00 Intake Total 1685.0 ml 1191.5 ml Output Total 1055 ml 505 ml Balance 630.0 ml 686.5 ml Free Water 60 ml IV Total 875.0 ml 911.5 ml Tube Feeding 660 ml 220 ml Other 150 ml Output Urine Total 1055 ml 505 ml Labs Test 02/01/20 07:49 02/01/20 11:17 02/01/20 17:17 02/01/20 18:14 Arterial Blood pH 7.511 (7.350-7.450) 7.486 (7.350-7.450) Arterial Blood Partial Pressure CO2 25.4 mmHg (35.0-45.0) 25.7 mmHg (35.0-45.0) Arterial Blood Partial Pressure O2 97.5 mmHg (75.0-100.0) 101.7 mmHg (75.0-100.0) Arterial Blood HCO3 19.9 mmol/L (22.0-26.0) 19.0 mmol/L (22.0-26.0) Arterial Blood Oxygen Saturation 97.0 % (95-100) 98.2 % (95-100) Arterial Blood Base Excess -2.5 (-2-2) -3.6 (-2-2) Asael Test Positive Positive Test 02/01/20 19:15 02/02/20 06:00 02/02/20 12:27 02/03/20 00:08 POC Whole Blood Glucose 104 MG/DL (74-106) 123 MG/DL (74-106) 120 MG/DL (74-106) White Blood Count 9.9 K/UL (4.8-10.8) Red Blood Count 2.70 M/UL (4.70-6.10) Hemoglobin 7.7 G/DL (14.2-18.0) Hematocrit 22.8 % (42.0-52.0) Mean Corpuscular Volume 84 FL (80-99) Mean Corpuscular Hemoglobin 28.5 PG (27.0-31.0) Mean Corpuscular Hemoglobin Concent 33.8 G/DL (32.0-36.0) Red Cell Distribution Width 20.1 % (11.6-14.8) Platelet Count 281 K/UL (150-450) Mean Platelet Volume 6.9 FL (6.5-10.1) Neutrophils (%) (Auto) % (45.0-75.0) Lymphocytes (%) (Auto) % (20.0-45.0) Monocytes (%) (Auto) % (1.0-10.0) Eosinophils (%) (Auto) % (0.0-3.0) Basophils (%) (Auto) % (0.0-2.0) Differential Total Cells Counted 100 Neutrophils % (Manual) 83 % (45-75) Lymphocytes % (Manual) 13 % (20-45) Monocytes % (Manual) 4 % (1-10) Eosinophils % (Manual) 0 % (0-3) Basophils % (Manual) 0 % (0-2) Band Neutrophils 0 % (0-8) Platelet Estimate Adequate Platelet Morphology Normal Polychromasia 1+ Hypochromasia 1+ Anisocytosis 2+ Sodium Level 140 MMOL/L (136-145) Potassium Level 3.2 MMOL/L (3.5-5.1) Chloride Level 109 MMOL/L (98-107) Carbon Dioxide Level 20 MMOL/L (21-32) Anion Gap 11 mmol/L (5-15) Blood Urea Nitrogen 12 mg/dL (7-18) Creatinine 0.9 MG/DL (0.55-1.30) Estimat Glomerular Filtration Rate > 60 mL/min (>60) Glucose Level 114 MG/DL (74-106) Calcium Level 7.2 MG/DL (8.5-10.1) Phosphorus Level 2.0 MG/DL (2.5-4.9) Magnesium Level 1.7 MG/DL (1.8-2.4) Total Bilirubin 0.3 MG/DL (0.2-1.0) Aspartate Amino Transf (AST/SGOT) 57 U/L (15-37) Alanine Aminotransferase (ALT/SGPT) 32 U/L (12-78) Alkaline Phosphatase 229 U/L (46-116) C-Reactive Protein, Quantitative 21.9 mg/dL (0.00-0.90) Pro-B-Type Natriuretic Peptide 2240 pg/mL (0-125) Total Protein 5.2 G/DL (6.4-8.2) Albumin 1.5 G/DL (3.4-5.0) Globulin 3.7 g/dL Albumin/Globulin Ratio 0.4 (1.0-2.7) Test 02/03/20 05:17 02/03/20 06:00 02/03/20 10:50 02/04/20 00:18 POC Whole Blood Glucose 101 MG/DL (74-106) 112 MG/DL (74-106) White Blood Count 10.2 K/UL (4.8-10.8) Red Blood Count 2.62 M/UL (4.70-6.10) Hemoglobin 7.5 G/DL (14.2-18.0) Hematocrit 22.1 % (42.0-52.0) Mean Corpuscular Volume 84 FL (80-99) Mean Corpuscular Hemoglobin 28.7 PG (27.0-31.0) Mean Corpuscular Hemoglobin Concent 34.0 G/DL (32.0-36.0) Red Cell Distribution Width 20.9 % (11.6-14.8) Platelet Count 263 K/UL (150-450) Mean Platelet Volume 7.0 FL (6.5-10.1) Neutrophils (%) (Auto) % (45.0-75.0) Lymphocytes (%) (Auto) % (20.0-45.0) Monocytes (%) (Auto) % (1.0-10.0) Eosinophils (%) (Auto) % (0.0-3.0) Basophils (%) (Auto) % (0.0-2.0) Differential Total Cells Counted 100 Neutrophils % (Manual) 85 % (45-75) Lymphocytes % (Manual) 4 % (20-45) Monocytes % (Manual) 7 % (1-10) Eosinophils % (Manual) 1 % (0-3) Basophils % (Manual) 0 % (0-2) Metamyelocytes % 1 % (0-0) Myelocytes % 2 % (0-0) Band Neutrophils 0 % (0-8) Platelet Estimate Adequate Platelet Morphology Normal Polychromasia Occasional Anisocytosis 2+ Sodium Level 140 MMOL/L (136-145) Potassium Level 3.1 MMOL/L (3.5-5.1) Chloride Level 110 MMOL/L (98-107) Carbon Dioxide Level 21 MMOL/L (21-32) Anion Gap 9 mmol/L (5-15) Blood Urea Nitrogen 11 mg/dL (7-18) Creatinine 0.9 MG/DL (0.55-1.30) Estimat Glomerular Filtration Rate > 60 mL/min (>60) Glucose Level 105 MG/DL (74-106) Calcium Level 6.7 MG/DL (8.5-10.1) Prothrombin Time 12.3 SEC (9.30-11.50) Prothromb Time International Ratio 1.1 (0.9-1.1) Activated Partial Thromboplast Time 28 SEC (23-33) Test 02/04/20 03:50 02/04/20 05:21 White Blood Count 9.0 K/UL (4.8-10.8) Red Blood Count 2.48 M/UL (4.70-6.10) Hemoglobin 7.1 G/DL (14.2-18.0) Hematocrit 20.6 % (42.0-52.0) Mean Corpuscular Volume 83 FL (80-99) Mean Corpuscular Hemoglobin 28.4 PG (27.0-31.0) Mean Corpuscular Hemoglobin Concent 34.2 G/DL (32.0-36.0) Red Cell Distribution Width 21.2 % (11.6-14.8) Platelet Count 248 K/UL (150-450) Mean Platelet Volume 7.1 FL (6.5-10.1) Neutrophils (%) (Auto) % (45.0-75.0) Lymphocytes (%) (Auto) % (20.0-45.0) Monocytes (%) (Auto) % (1.0-10.0) Eosinophils (%) (Auto) % (0.0-3.0) Basophils (%) (Auto) % (0.0-2.0) Sodium Level 138 MMOL/L (136-145) Potassium Level 3.6 MMOL/L (3.5-5.1) Chloride Level 107 MMOL/L (98-107) Carbon Dioxide Level 20 MMOL/L (21-32) Blood Urea Nitrogen 11 mg/dL (7-18) Creatinine 0.8 MG/DL (0.55-1.30) Estimat Glomerular Filtration Rate > 60 mL/min (>60) Glucose Level 80 MG/DL (74-106) Calcium Level 7.4 MG/DL (8.5-10.1) Phosphorus Level 2.0 MG/DL (2.5-4.9) Magnesium Level 1.5 MG/DL (1.8-2.4) Total Bilirubin 0.3 MG/DL (0.2-1.0) Aspartate Amino Transf (AST/SGOT) 48 U/L (15-37) Alanine Aminotransferase (ALT/SGPT) 25 U/L (12-78) Alkaline Phosphatase 202 U/L (46-116) Total Protein 5.2 G/DL (6.4-8.2) Albumin 1.5 G/DL (3.4-5.0) Globulin 3.7 g/dL Albumin/Globulin Ratio 0.4 (1.0-2.7) POC Whole Blood Glucose 88 MG/DL (74-106) Height (Feet): 5 Height (Inches): 9.00 Weight (Pounds): 149 Objective PE: Vitals: reviewed General Appearance: NAD HEENT: normocephalic, atraumatic Neck: non-tender, normal alignment Respiratory/Chest: nromal breath sounds bilaterally Cardiovascular/Chest: normal peripheral pulses, normal rate Abdomen: normal bowel sounds, soft, nontender Extremities: normal range of motion Samuel Son MD Feb 04, 2020 07:08
[2020-02-04] MEDS: Vitamin D 1000 IU Tab GT SCH (08:05)
--- NOTE | 2020-02-04 08:46 | Nephrology Progress Note ---
Assessment/Plan Problem List: (1) ARF (acute renal failure) (2) Hypernatremia (3) Hypovolemic shock (4) Altered level of consciousness (5) Hypercalcemia (6) Hyperuricemia (7) Pelvic mass Assessment: Prostate cancer Assessment Acute renal failure Possible underlying chronic kidney failure Severe dehydration Hypernatremia indicative of severe water deficit Severe hyperuricemia, partly due to dehydration and renal failure Acute metabolic and toxic encephalopathy Mild, malnutrition Anemia Lactic acid, possible sepsis Hypercalcemia Plan February 03: Remains intubated on ventilator. Labs reviewed. Abnormal electrolytes addressed. Continue per consultants. February 02: Status quo. Labs reviewed. Abnormal electrolyte addressed. Discussed with SELIN Thomason. February 01: Remains intubated and on ventilator. Abnormal electrolytes addressed. Continue per consultants. January 31: Continues to be on ventilator. Labs reviewed. Abnormal electrolyte addressed. Continue per consultants. January 30: Patient remains intubated. On no pressors. Abnormal electrolyte addressed. Discussed with RN. Apparently due for PEG insertion tomorrow. Continue per consultants. January 29: Patient was coded late last night. Now in ICU intubated. Was on pressors for a short period of time. Is off pressors now. Labs reviewed. Abnormal electrolyte addressed. Continue per consultants. January 28: Labs reviewed. Abnormal electrolyte addressed. Continue per consultants. January 27: Labs reviewed. Abnormal electrolyte addressed. Low potassium low phosphorus and low magnesium replaced. Continue per consultants. January 26: No labs drawn today. Status quo. Continue per consultants. Will check renal parameters tomorrow. January 25: Renal parameters stable. On Venturi mask. Continue per current management. January 24: Renal parameters stable. On Venturi mask. Discussed with RN. Due for PEG insertion today. January 23: Stable from renal standpoint of view. On Venturi mask. Low magnesium addressed. Continue per consultants. January 22: Patient off pressors. Patient extubated. Labs reviewed. Renal parameters are stable. January 21: Patient on low-dose pressors. Remains hypotensive. Renal parameters stable. Weaning trial in process. Mental status remains poor. January 20: Patient in ICU. Intubated. Full code. Has advanced prostate cancer. On IV Lasix drip. Low magnesium and low phosphorus and low potassium noted and addressed. Continue per consultants. January 19: Patient in ICU. Intubated. Was coded yesterday. Labs reviewed. Medication list reviewed and adjusted. Continue per consultants. Patient full code. Prognosis poor. PSA over 2700 January 18: Labs reviewed. IV fluid discontinued. IV calcium dose decreased. Midodrine dose decreased. Reglan and Protonix changed to GT route. Vitamin D initiated. Continue to monitor renal parameters and calcium level. January 17: Labs reviewed. Abnormal electrolyte addressed. Continue per consultants. January 16: Patient now in telemetry. Labs pending. Continue to monitor renal parameters. Continue per consultants. January 15: Still in ICU. Doing well post extubation. Renal parameters improving. Not requiring any more dialysis treatment after the first dialysis treatment. Medications reviewed. Continue per consultants. January 14: Remains in ICU. Tolerating extubation. Labs reviewed. Abnormal electrolytes addressed. Serum creatinine lowering. Continue per current management. Stop Phos binders. Increase calcium IV. January 13: In ICU. Now extubated. Only dialyzed once. Urine output maintained. Serum creatinine down to 2.5. Patient has NG tube. Continue to monitor renal parameters. Continue per consultants. Abnormal electrolytes addressed. January 12: Remains in ICU. Intubated. Transfused yesterday. Abnormal electrolytes addressed. Dialyzed once January 10. Serum creatinine stable. Will adjust IV fluid. Monitor renal parameters. Dialysis as needed. Calcium gluconate IV ordered. Ionized calcium level ordered with tomorrow's labs. January 11: Patient in ICU. Intubated. On Levophed. Hemoglobin low. Due for transfusion. Electrolyte abnormalities noted and addressed. Patient was dialyzed yesterday. Will check lab tomorrow. Dialysis as needed. Discussed with SELIN Srivastava. January 10: Patient is doing poorly. Blood pressure low. ABG abnormal with metabolic acidosis. IV sodium bicarb given. Serum creatinine reno. Patient has acute renal failure. Nontunneled dialysis catheter replacement ordered.. Patient need life saving dialysis treatment SRINIVAS. January 09: Labs reviewed. IV D5 and a half with sodium bicarb initiated. Serum creatinine higher. Continue to monitor renal parameters. NG feeding was changed to Nepro. Patient remains full code. Poor prognosis. January 08: Labs reviewed. IV D5W discontinued. 500 cc 3% saline ordered. NG tube for feeding and for medications. Allopurinol dose increased. Continue to monitor renal parameters serum calcium and phosphorus. January 07: Labs reviewed. Serum calcium remains elevated. Uric acid still elevated. Will give pamidronate 60 mg IV piggyback once for hypercalcemia. Continue to monitor renal parameters. Continue D5W 150 cc an hour. Start Bicitra 30 cc p.o. every 6 hours. Add allopurinol D5W IV hydration Albumin bolus N.p.o. until able to take p.o. Antibiotics Monitor renal parameters monitor calcium, monitor uric acid Subjective ROS Limited/Unobtainable: Yes Objective Objective Last 24 Hour Vital Signs Date Time Temp Pulse Resp B/P (MAP) Pulse Ox O2 Delivery O2 Flow Rate FiO2 02/04/20 08:32 80 02/04/20 08:00 Mechanical Ventilator Mechanical Ventilator 02/04/20 08:00 98.7 85 18 117/68 (84) 100 02/04/20 08:00 30 02/04/20 07:00 89 19 116/69 (85) 100 02/04/20 06:00 88 18 112/64 (80) 100 02/04/20 05:00 88 17 120/64 (82) 100 02/04/20 04:00 Mechanical Ventilator Mechanical Ventilator 02/04/20 04:00 98.9 85 18 116/64 (81) 100 02/04/20 04:00 30 02/04/20 03:14 90 02/04/20 03:03 82 16 30 02/04/20 03:03 82 16 100 Mechanical Ventilator 30 02/04/20 03:00 83 16 116/66 (83) 100 02/04/20 02:00 92 20 108/63 (78) 100 02/04/20 01:00 92 16 101/57 (72) 100 02/04/20 00:00 99.1 98 20 100/58 (72) 100 02/04/20 00:00 30 02/04/20 00:00 Mechanical Ventilator Mechanical Ventilator 02/03/20 23:02 97 02/03/20 23:00 97 21 111/67 (82) 100 02/03/20 22:59 96 20 30 02/03/20 22:00 91 20 111/63 (79) 100 02/03/20 21:00 96 21 105/64 (78) 100 02/03/20 20:00 Mechanical Ventilator Mechanical Ventilator 02/03/20 20:00 99.0 102 21 127/70 (89) 100 02/03/20 20:00 30 02/03/20 19:13 94 02/03/20 19:00 99 19 112/67 (82) 100 02/03/20 18:45 99 19 30 02/03/20 18:00 96 19 97/59 (72) 100 02/03/20 17:00 98 19 114/64 (81) 100 02/03/20 16:00 94 19 111/61 (78) 100 02/03/20 16:00 30 02/03/20 16:00 Mechanical Ventilator 02/03/20 16:00 94 02/03/20 15:20 96 20 30 02/03/20 15:00 98 19 114/64 (81) 100 02/03/20 14:00 93 20 115/68 (84) 100 02/03/20 13:00 96 19 123/68 (86) 100 02/03/20 12:00 97.1 99 20 114/60 (78) 100 02/03/20 12:00 30 02/03/20 12:00 95 02/03/20 12:00 Mechanical Ventilator 02/03/20 11:18 102 22 30 02/03/20 11:00 99 20 117/67 (84) 100 02/03/20 10:00 98 19 111/61 (78) 100 02/03/20 09:00 101 20 147/82 (103) 100 Intake and Output 02/03/20 02/04/20 19:00 07:00 Intake Total 1685.0 ml 1191.5 ml Output Total 1055 ml 505 ml Balance 630.0 ml 686.5 ml Free Water 60 ml IV Total 875.0 ml 911.5 ml Tube Feeding 660 ml 220 ml Other 150 ml Output Urine Total 1055 ml 505 ml Laboratory Tests 02/03/20 10:50: Prothrombin Time 12.3H, Prothromb Time International Ratio 1.1, Activated Partial Thromboplast Time 28 02/04/20 00:18: POC Whole Blood Glucose 112H 02/04/20 03:50: White Blood Count 9.0, Red Blood Count 2.48L, Hemoglobin 7.1L, Hematocrit 20.6L, Mean Corpuscular Volume 83, Mean Corpuscular Hemoglobin 28.4, Mean Corpuscular Hemoglobin Concent 34.2, Red Cell Distribution Width 21.2H, Platelet Count 248, Mean Platelet Volume 7.1, Neutrophils (%) (Auto) , Lymphocytes (%) (Auto) , Monocytes (%) (Auto) , Eosinophils (%) (Auto) , Basophils (%) (Auto) , Sodium Level 138, Potassium Level 3.6, Chloride Level 107, Carbon Dioxide Level 20L, Blood Urea Nitrogen 11, Creatinine 0.8, Estimat Glomerular Filtration Rate > 60, Glucose Level 80, Calcium Level 7.4L, Phosphorus Level 2.0L, Magnesium Level 1.5L, Total Bilirubin 0.3, Aspartate Amino Transf (AST/SGOT) 48H, Alanine Aminotransferase (ALT/SGPT) 25, Alkaline Phosphatase 202H, Total Protein 5.2L, Albumin 1.5L, Globulin 3.7, Albumin/Globulin Ratio 0.4L 02/04/20 05:21: POC Whole Blood Glucose 88 Height (Feet): 5 Height (Inches): 9.00 Weight (Pounds): 149 General Appearance: no apparent distress EENT: other - Continues to be intubated on ventilator Cardiovascular: tachycardia Respiratory/Chest: decreased breath sounds Abdomen: distended Dhiraj Biswas MD Feb 04, 2020 08:46
[2020-02-04] MEDS: Potassium Phosphate 15mm/250ml 250 ML IVPB SCH ×2 (09:17→13:02)
--- NOTE | 2020-02-04 09:19 | General Progress Note ---
Subjective Constitutional: Reports: weakness Allergies: Coded Allergies: No Known Allergies (Unverified , 03/18/19) All Systems: reviewed and negative except above Subjective intubated ng in icu Objective Last 24 Hour Vital Signs Date Time Temp Pulse Resp B/P (MAP) Pulse Ox O2 Delivery O2 Flow Rate FiO2 02/04/20 09:00 86 16 108/76 (87) 100 02/04/20 08:32 80 02/04/20 08:00 Mechanical Ventilator Mechanical Ventilator 02/04/20 08:00 98.7 85 18 117/68 (84) 100 02/04/20 08:00 30 02/04/20 07:00 89 19 116/69 (85) 100 02/04/20 06:00 88 18 112/64 (80) 100 02/04/20 05:00 88 17 120/64 (82) 100 02/04/20 04:00 Mechanical Ventilator Mechanical Ventilator 02/04/20 04:00 98.9 85 18 116/64 (81) 100 02/04/20 04:00 30 02/04/20 03:14 90 02/04/20 03:03 82 16 30 02/04/20 03:03 82 16 100 Mechanical Ventilator 30 02/04/20 03:00 83 16 116/66 (83) 100 02/04/20 02:00 92 20 108/63 (78) 100 02/04/20 01:00 92 16 101/57 (72) 100 02/04/20 00:00 99.1 98 20 100/58 (72) 100 02/04/20 00:00 30 02/04/20 00:00 Mechanical Ventilator Mechanical Ventilator 02/03/20 23:02 97 02/03/20 23:00 97 21 111/67 (82) 100 02/03/20 22:59 96 20 30 02/03/20 22:00 91 20 111/63 (79) 100 02/03/20 21:00 96 21 105/64 (78) 100 02/03/20 20:00 Mechanical Ventilator Mechanical Ventilator 02/03/20 20:00 99.0 102 21 127/70 (89) 100 02/03/20 20:00 30 02/03/20 19:13 94 02/03/20 19:00 99 19 112/67 (82) 100 02/03/20 18:45 99 19 30 02/03/20 18:00 96 19 97/59 (72) 100 02/03/20 17:00 98 19 114/64 (81) 100 02/03/20 16:00 94 19 111/61 (78) 100 02/03/20 16:00 30 02/03/20 16:00 Mechanical Ventilator 02/03/20 16:00 94 02/03/20 15:20 96 20 30 02/03/20 15:00 98 19 114/64 (81) 100 02/03/20 14:00 93 20 115/68 (84) 100 02/03/20 13:00 96 19 123/68 (86) 100 02/03/20 12:00 97.1 99 20 114/60 (78) 100 02/03/20 12:00 30 02/03/20 12:00 95 02/03/20 12:00 Mechanical Ventilator 02/03/20 11:18 102 22 30 02/03/20 11:00 99 20 117/67 (84) 100 02/03/20 10:00 98 19 111/61 (78) 100 Intake and Output 02/03/20 02/04/20 19:00 07:00 Intake Total 1685.0 ml 1191.5 ml Output Total 1055 ml 505 ml Balance 630.0 ml 686.5 ml Free Water 60 ml IV Total 875.0 ml 911.5 ml Tube Feeding 660 ml 220 ml Other 150 ml Output Urine Total 1055 ml 505 ml Laboratory Tests 02/03/20 10:50: Prothrombin Time 12.3H, Prothromb Time International Ratio 1.1, Activated Partial Thromboplast Time 28 02/04/20 00:18: POC Whole Blood Glucose 112H 02/04/20 03:50: White Blood Count 9.0, Red Blood Count 2.48L, Hemoglobin 7.1L, Hematocrit 20.6L, Mean Corpuscular Volume 83, Mean Corpuscular Hemoglobin 28.4, Mean Corpuscular Hemoglobin Concent 34.2, Red Cell Distribution Width 21.2H, Platelet Count 248, Mean Platelet Volume 7.1, Neutrophils (%) (Auto) , Lymphocytes (%) (Auto) , Monocytes (%) (Auto) , Eosinophils (%) (Auto) , Basophils (%) (Auto) , Sodium Level 138, Potassium Level 3.6, Chloride Level 107, Carbon Dioxide Level 20L, Blood Urea Nitrogen 11, Creatinine 0.8, Estimat Glomerular Filtration Rate > 60, Glucose Level 80, Calcium Level 7.4L, Phosphorus Level 2.0L, Magnesium Level 1.5L, Total Bilirubin 0.3, Aspartate Amino Transf (AST/SGOT) 48H, Alanine Aminotransferase (ALT/SGPT) 25, Alkaline Phosphatase 202H, Total Protein 5.2L, Albumin 1.5L, Globulin 3.7, Albumin/Globulin Ratio 0.4L 02/04/20 05:21: POC Whole Blood Glucose 88 Height (Feet): 5 Height (Inches): 9.00 Weight (Pounds): 149 General Appearance: lethargic EENT: normal ENT inspection Neck: normal alignment Cardiovascular: normal peripheral pulses, normal rate, regular rhythm Respiratory/Chest: chest wall non-tender, lungs clear, normal breath sounds Abdomen: normal bowel sounds, non tender, soft Extremities: normal inspection Edema: no edema noted Arm (L), no edema noted Arm (R), no edema noted Leg (L), no edema noted Leg (R), no edema noted Pedal (L), no edema noted Pedal (R), no edema noted Generalized Neurologic: motor weakness Skin: normal pigmentation, warm/dry Assessment/Plan Problem List: (1) Anemia ICD Codes: D64.9 - Anemia, unspecified SNOMED: 437471860 (2) Paraplegia ICD Codes: G82.20 - Paraplegia, unspecified SNOMED: 80045987 (3) Diabetes ICD Codes: E11.9 - Type 2 diabetes mellitus without complications SNOMED: 05317845 (4) Weak ICD Codes: R53.1 - Weakness SNOMED: 40954380 (5) HTN (hypertension) ICD Codes: I10 - Essential (primary) hypertension SNOMED: 11176924 (6) ARF (acute renal failure) ICD Codes: N17.9 - Acute kidney failure, unspecified SNOMED: 59551868 (7) Altered level of consciousness ICD Codes: R40.4 - Transient alteration of awareness SNOMED: 3873100 (8) Dehydration ICD Codes: E86.0 - Dehydration SNOMED: 82726283 (9) Hypernatremia ICD Codes: E87.0 - Hyperosmolality and hypernatremia SNOMED: 737331698 Status: unchanged Assessment/Plan: vent abx transfuse prn gi/heme f/u cbc bmp am Farrukh Ríos DO Feb 04, 2020 09:19
--- NOTE | 2020-02-04 10:14 | General Progress Note ---
Subjective ROS Limited/Unobtainable: No Allergies: Coded Allergies: No Known Allergies (Unverified , 03/18/19) Objective Last 24 Hour Vital Signs Date Time Temp Pulse Resp B/P (MAP) Pulse Ox O2 Delivery O2 Flow Rate FiO2 02/04/20 10:00 85 15 110/57 (74) 100 02/04/20 09:00 86 16 108/76 (87) 100 02/04/20 08:32 80 02/04/20 08:00 Mechanical Ventilator Mechanical Ventilator 02/04/20 08:00 98.7 85 18 117/68 (84) 100 02/04/20 08:00 30 02/04/20 07:17 88 18 30 02/04/20 07:00 89 19 116/69 (85) 100 02/04/20 06:00 88 18 112/64 (80) 100 02/04/20 05:00 88 17 120/64 (82) 100 02/04/20 04:00 Mechanical Ventilator Mechanical Ventilator 02/04/20 04:00 98.9 85 18 116/64 (81) 100 02/04/20 04:00 30 02/04/20 03:14 90 02/04/20 03:03 82 16 30 02/04/20 03:03 82 16 100 Mechanical Ventilator 30 02/04/20 03:00 83 16 116/66 (83) 100 02/04/20 02:00 92 20 108/63 (78) 100 02/04/20 01:00 92 16 101/57 (72) 100 02/04/20 00:00 99.1 98 20 100/58 (72) 100 02/04/20 00:00 30 02/04/20 00:00 Mechanical Ventilator Mechanical Ventilator 02/03/20 23:02 97 02/03/20 23:00 97 21 111/67 (82) 100 02/03/20 22:59 96 20 30 02/03/20 22:00 91 20 111/63 (79) 100 02/03/20 21:00 96 21 105/64 (78) 100 02/03/20 20:00 Mechanical Ventilator Mechanical Ventilator 02/03/20 20:00 99.0 102 21 127/70 (89) 100 02/03/20 20:00 30 02/03/20 19:13 94 02/03/20 19:00 99 19 112/67 (82) 100 02/03/20 18:45 99 19 30 02/03/20 18:00 96 19 97/59 (72) 100 02/03/20 17:00 98 19 114/64 (81) 100 02/03/20 16:00 94 19 111/61 (78) 100 02/03/20 16:00 30 02/03/20 16:00 Mechanical Ventilator 02/03/20 16:00 94 02/03/20 15:20 96 20 30 02/03/20 15:00 98 19 114/64 (81) 100 02/03/20 14:00 93 20 115/68 (84) 100 02/03/20 13:00 96 19 123/68 (86) 100 02/03/20 12:00 97.1 99 20 114/60 (78) 100 02/03/20 12:00 30 02/03/20 12:00 95 02/03/20 12:00 Mechanical Ventilator 02/03/20 11:18 102 22 30 02/03/20 11:00 99 20 117/67 (84) 100 Intake and Output 02/03/20 02/04/20 19:00 07:00 Intake Total 1685.0 ml 1191.5 ml Output Total 1055 ml 505 ml Balance 630.0 ml 686.5 ml Free Water 60 ml IV Total 875.0 ml 911.5 ml Tube Feeding 660 ml 220 ml Other 150 ml Output Urine Total 1055 ml 505 ml Laboratory Tests 02/03/20 10:50: Prothrombin Time 12.3H, Prothromb Time International Ratio 1.1, Activated Partial Thromboplast Time 28 02/04/20 00:18: POC Whole Blood Glucose 112H 02/04/20 03:50: White Blood Count 9.0, Red Blood Count 2.48L, Hemoglobin 7.1L, Hematocrit 20.6L, Mean Corpuscular Volume 83, Mean Corpuscular Hemoglobin 28.4, Mean Corpuscular Hemoglobin Concent 34.2, Red Cell Distribution Width 21.2H, Platelet Count 248, Mean Platelet Volume 7.1, Neutrophils (%) (Auto) , Lymphocytes (%) (Auto) , Monocytes (%) (Auto) , Eosinophils (%) (Auto) , Basophils (%) (Auto) , Sodium Level 138, Potassium Level 3.6, Chloride Level 107, Carbon Dioxide Level 20L, Blood Urea Nitrogen 11, Creatinine 0.8, Estimat Glomerular Filtration Rate > 60, Glucose Level 80, Calcium Level 7.4L, Phosphorus Level 2.0L, Magnesium Level 1.5L, Total Bilirubin 0.3, Aspartate Amino Transf (AST/SGOT) 48H, Alanine Aminotransferase (ALT/SGPT) 25, Alkaline Phosphatase 202H, Total Protein 5.2L, Albumin 1.5L, Globulin 3.7, Albumin/Globulin Ratio 0.4L 02/04/20 05:21: POC Whole Blood Glucose 88 Height (Feet): 5 Height (Inches): 9.00 Weight (Pounds): 149 General Appearance: lethargic EENT: normal ENT inspection Neck: supple Cardiovascular: tachycardia Respiratory/Chest: decreased breath sounds Abdomen: hypoactive bowel sounds Extremities: non-tender Assessment/Plan Status: unchanged Assessment/Plan: AMS dementia Anemia DM hyper CA elevated AST low albumin COPD RI HTN metastatic prostate CA intubated in the icu NGTF chart reviewed ? conservative management and comfort care PEG on hold for now Paulino Bueno MD Feb 04, 2020 10:14
--- NOTE | 2020-02-04 12:47 | Infectious Diseases Prog Note ---
Assessment/Plan 69yo M with: VRE bacteremia, most likely 2/2 HD cath placed 01/10 01/29 BCx 1/2 + VRE 01/31 BCx p 02/01 Cath tip cx p 02/01 Resp cx p Recurrent resp failure, most likely 2/2 increased volume, vascular congestion, pleural effusion, less likely 2/2 infection CODE BLUE 01/28, r/o infection Large L pleural effusion 01/28 CXR: Enlarged and now quite large left pleural effusion. Increasing interstitial congestion. Stable right pleural effusion 01/29 BCx 1/2 + VRE Shock- likely combination septic and metabolic derangements- SP Probable UTI -01/10 u/a wbc 60-80, nit neg, leuk +3; ucx Neg -Bcx NTD Probable PNA -01/12 CXR: No significant change in bilateral patchy pulmondary opacities, concerning for pneumonia versus edemaq. Small bilateral pleural effusions. -01/10 CXR: Bilateral interstitial and airspace infiltrates versus edema persists. sp cx MRSA (S Vancomycin, bactrim, tetracycline) COVID19 neg -01/04 rapid COVID PCR neg x1 influenza PCR neg CXR: Mild interstitial vascular prominence. No focal infiltrate or consolidation. 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 Etiology not demonstrated. Empty bladder with a Mathew catheter. 3 hypoechoic lesions within the pancreatic head and body, each measuring about 5 mm. Appearance nonspecific. Bilateral pleural effusions. Echogenic liver, consistent with hepatocellular disease. Surface likely nodularity raises concern for cirrhosis. Gallbladder sludge. Negative for dilated bile ducts. Probable nonobstructive left intrarenal calculi. Multiple hepatic cysts Acute on chronic encephalopathy -CT head: 1. Markedly limited, near nondiagnostic evaluation due to motion artifact. Grossly, age-related changes and small vessel disease of aging are noted. Again grossly, no acute intracranial pathology is detected. If there is a high degree of concern or if there is concern for subtle abnormalities, magnetic resonance imaging of the brain with diffusion-weighted sequences should be performed, due to the markedly limited nature of the current study. Close clinical correlation is necessary. HTN COPD DM2 paraplegia Dementia non verbal [place] resident (elan mora) Plan: Start daptomycin for VRE bacteremia Cont Zosyn #6/7 for possible pna during Code blue event Check CK Repeat BCx in AM F/u BCx, Resp cx -01/18 SP vanco IV #7 -01/16 SP Cefepime #4 -01/13 SP ZOsyn #4 -01/06 SP Ceftriaxone #2 -01/04 Sp IV Vancomycin x1, Cefepime x1 -f/u cx -Monitor CBC/CMP, temperatures -Renal, cards f/u -aspiration precautions D/w RN Thank you for consulting [facility]. Will continue to follow along with you. Subjective Allergies: Coded Allergies: No Known Allergies (Unverified , 03/18/19) AF WBC 9.0 Bcx from 01/29 with VRE NAD on vent 30% PEEP 5 Objective Last 24 Hour Vital Signs Date Time Temp Pulse Resp B/P (MAP) Pulse Ox O2 Delivery O2 Flow Rate FiO2 02/04/20 12:00 Mechanical Ventilator Mechanical Ventilator 02/04/20 12:00 87 02/04/20 12:00 97.9 6 110/62 (78) 100 02/04/20 12:00 30 02/04/20 11:14 89 21 30 02/04/20 11:00 87 17 95/52 (66) 100 02/04/20 10:00 85 15 110/57 (74) 100 02/04/20 09:00 86 16 108/76 (87) 100 02/04/20 08:32 80 02/04/20 08:00 Mechanical Ventilator Mechanical Ventilator 02/04/20 08:00 98.7 85 18 117/68 (84) 100 02/04/20 08:00 30 02/04/20 07:17 88 18 30 02/04/20 07:00 89 19 116/69 (85) 100 02/04/20 06:00 88 18 112/64 (80) 100 02/04/20 05:00 88 17 120/64 (82) 100 02/04/20 04:00 Mechanical Ventilator Mechanical Ventilator 02/04/20 04:00 98.9 85 18 116/64 (81) 100 02/04/20 04:00 30 02/04/20 03:14 90 02/04/20 03:03 82 16 30 02/04/20 03:03 82 16 100 Mechanical Ventilator 30 02/04/20 03:00 83 16 116/66 (83) 100 02/04/20 02:00 92 20 108/63 (78) 100 02/04/20 01:00 92 16 101/57 (72) 100 02/04/20 00:00 99.1 98 20 100/58 (72) 100 02/04/20 00:00 30 02/04/20 00:00 Mechanical Ventilator Mechanical Ventilator 02/03/20 23:02 97 02/03/20 23:00 97 21 111/67 (82) 100 02/03/20 22:59 96 20 30 02/03/20 22:00 91 20 111/63 (79) 100 02/03/20 21:00 96 21 105/64 (78) 100 02/03/20 20:00 Mechanical Ventilator Mechanical Ventilator 02/03/20 20:00 99.0 102 21 127/70 (89) 100 02/03/20 20:00 30 02/03/20 19:13 94 02/03/20 19:00 99 19 112/67 (82) 100 02/03/20 18:45 99 19 30 02/03/20 18:00 96 19 97/59 (72) 100 02/03/20 17:00 98 19 114/64 (81) 100 02/03/20 16:00 94 19 111/61 (78) 100 02/03/20 16:00 30 02/03/20 16:00 Mechanical Ventilator 02/03/20 16:00 94 02/03/20 15:20 96 20 30 02/03/20 15:00 98 19 114/64 (81) 100 02/03/20 14:00 93 20 115/68 (84) 100 02/03/20 13:00 96 19 123/68 (86) 100 Height (Feet): 5 Height (Inches): 9.00 Weight (Pounds): 149 Gen: NAD in bed HEENT: NCAT CV: RRR Pulm: Rhonchi BL Abd: Soft, Non-distended Ext: No c/c/e Neuro: Not interactive Lines: R IJ HD cath placed 02/01 Microbiology Date/Time Source Procedure Growth Status 02/02/20 15:30 Stool Clostridium difficile Toxin Assay - Final Complete 02/02/20 15:30 Sputum Gram Stain - Final Resulted 02/02/20 15:30 Sputum Culture - Preliminary Gram Negative Bacillus 1 Resulted 02/02/20 14:22 Catheter Site Catheter Tip Culture - Preliminary NO GROWTH AFTER 24 HOURS Resulted Laboratory Tests Test 02/04/20 00:18 02/04/20 03:50 02/04/20 05:21 POC Whole Blood Glucose 112 MG/DL (74-106) H 88 MG/DL (74-106) White Blood Count 9.0 K/UL (4.8-10.8) Red Blood Count 2.48 M/UL (4.70-6.10) L Hemoglobin 7.1 G/DL (14.2-18.0) L Hematocrit 20.6 % (42.0-52.0) L Mean Corpuscular Volume 83 FL (80-99) Mean Corpuscular Hemoglobin 28.4 PG (27.0-31.0) Mean Corpuscular Hemoglobin Concent 34.2 G/DL (32.0-36.0) Red Cell Distribution Width 21.2 % (11.6-14.8) H Platelet Count 248 K/UL (150-450) Mean Platelet Volume 7.1 FL (6.5-10.1) Neutrophils (%) (Auto) % (45.0-75.0) Lymphocytes (%) (Auto) % (20.0-45.0) Monocytes (%) (Auto) % (1.0-10.0) Eosinophils (%) (Auto) % (0.0-3.0) Basophils (%) (Auto) % (0.0-2.0) Sodium Level 138 MMOL/L (136-145) Potassium Level 3.6 MMOL/L (3.5-5.1) Chloride Level 107 MMOL/L (98-107) Carbon Dioxide Level 20 MMOL/L (21-32) L Blood Urea Nitrogen 11 mg/dL (7-18) Creatinine 0.8 MG/DL (0.55-1.30) Estimat Glomerular Filtration Rate > 60 mL/min (>60) Glucose Level 80 MG/DL (74-106) Calcium Level 7.4 MG/DL (8.5-10.1) L Phosphorus Level 2.0 MG/DL (2.5-4.9) L Magnesium Level 1.5 MG/DL (1.8-2.4) L Total Bilirubin 0.3 MG/DL (0.2-1.0) Aspartate Amino Transf (AST/SGOT) 48 U/L (15-37) H Alanine Aminotransferase (ALT/SGPT) 25 U/L (12-78) Alkaline Phosphatase 202 U/L (46-116) H Total Protein 5.2 G/DL (6.4-8.2) L Albumin 1.5 G/DL (3.4-5.0) L Globulin 3.7 g/dL Albumin/Globulin Ratio 0.4 (1.0-2.7) L Current Medications Medications (Trade) Dose Ordered Sig/Jesse Route PRN Reason Start Time Stop Time Status Last Admin Dose Admin Acetaminophen (Tylenol) 650 mg Q4H PRN NG Temp >100.5, mild pain 02/03/20 22:15 03/04/20 22:14 02/03/20 23:04 Bisacodyl (Dulcolax) 10 mg DAILY PRN RECTAL Constipation 01/05/20 20:15 04/04/20 20:14 Chlorhexidine Gluconate (Navya-Hex 2%) 1 applic DAILY@1999 TOPIC 01/11/20 20:00 04/10/20 19:59 02/03/20 20:06 Dextrose (Dextrose 50%) 25 ml Q30M PRN IV Hypoglycemia 01/05/20 20:15 04/04/20 20:14 01/24/20 23:53 Dextrose (Dextrose 50%) 50 ml Q30M PRN IV Hypoglycemia 01/05/20 20:15 04/04/20 20:14 Dextrose/Sodium Chloride 1,000 ml @ 60 mls/hr [id number] IV 01/24/20 13:30 02/23/20 13:29 02/03/20 21:21 Lansoprazole (Prevacid) 30 mg Q12HR NG 01/28/20 21:00 02/27/20 20:59 02/04/20 08:05 Linaclotide (Linzess) 290 mcg BEFORE BREAKFAST ORAL 01/10/20 06:30 04/09/20 06:29 02/03/20 05:35 Loperamide HCl (Imodium) 2 mg Q6H PRN NG Diarrhea 01/27/20 15:45 02/26/20 15:44 01/27/20 17:58 Metoclopramide HCl (Reglan) 10 mg EVERY 6 HOURS NG 01/19/20 12:00 02/18/20 11:59 02/04/20 11:52 Metoclopramide HCl (Reglan) 10 mg Q6H PRN IVP Nausea & Vomiting 01/16/20 13:00 02/15/20 12:59 Midodrine (Pro-Amatine) 10 mg Q8HR NG 01/20/20 22:00 04/13/20 17:59 02/02/20 05:50 Ondansetron HCl (Zofran) 4 mg Q6H PRN IVP Nausea & Vomiting 01/10/20 06:30 02/09/20 06:29 Piperacillin Sod/ Tazobactam Sod 3.375 gm/Sodium Chloride 110 ml @ 27.5 mls/hr EVERY 8 HOURS IVPB 01/30/20 14:00 02/09/20 23:59 02/04/20 05:05 Polyethylene Glycol (Miralax) 17 gm BEDTIME NG 01/11/20 21:00 02/08/20 20:59 01/29/20 20:39 Potassium Phosphate 250 ml @ 62.5 mls/hr Q4H IVPB 02/04/20 09:00 02/04/20 16:59 02/04/20 09:17 Sennosides (Senokot) 8.6 mg QHS NG 01/11/20 21:00 02/11/20 20:59 01/29/20 20:39 Vitamin D (Vitamin D) 3,000 intlu DAILY GT 01/19/20 12:00 02/18/20 11:59 02/04/20 08:05 Nayana Ochoa M.D. Feb 04, 2020 12:47
[2020-02-04] MEDS: D5 1/2NS 1,000 ML IV SCH (13:02)
--- NOTE | 2020-02-04 13:30 | Surgery Progress Note ---
Surgery Progress Note Subjective Procedure Performed Right femoral temporary hemodialysis catheter insertion Additional Comments plan trach tomorrow no nok or poa. procedure necessary and medically indicated Objective Last 24 Hour Vital Signs Date Time Temp Pulse Resp B/P (MAP) Pulse Ox O2 Delivery O2 Flow Rate FiO2 02/04/20 12:00 Mechanical Ventilator Mechanical Ventilator 02/04/20 12:00 87 02/04/20 12:00 97.9 6 110/62 (78) 100 02/04/20 12:00 30 02/04/20 11:14 89 21 30 02/04/20 11:00 87 17 95/52 (66) 100 02/04/20 10:00 85 15 110/57 (74) 100 02/04/20 09:00 86 16 108/76 (87) 100 02/04/20 08:32 80 02/04/20 08:00 Mechanical Ventilator Mechanical Ventilator 02/04/20 08:00 98.7 85 18 117/68 (84) 100 02/04/20 08:00 30 02/04/20 07:17 88 18 30 02/04/20 07:00 89 19 116/69 (85) 100 02/04/20 06:00 88 18 112/64 (80) 100 02/04/20 05:00 88 17 120/64 (82) 100 02/04/20 04:00 Mechanical Ventilator Mechanical Ventilator 02/04/20 04:00 98.9 85 18 116/64 (81) 100 02/04/20 04:00 30 02/04/20 03:14 90 02/04/20 03:03 82 16 30 02/04/20 03:03 82 16 100 Mechanical Ventilator 30 02/04/20 03:00 83 16 116/66 (83) 100 02/04/20 02:00 92 20 108/63 (78) 100 02/04/20 01:00 92 16 101/57 (72) 100 02/04/20 00:00 99.1 98 20 100/58 (72) 100 02/04/20 00:00 30 02/04/20 00:00 Mechanical Ventilator Mechanical Ventilator 02/03/20 23:02 97 02/03/20 23:00 97 21 111/67 (82) 100 02/03/20 22:59 96 20 30 02/03/20 22:00 91 20 111/63 (79) 100 02/03/20 21:00 96 21 105/64 (78) 100 02/03/20 20:00 Mechanical Ventilator Mechanical Ventilator 02/03/20 20:00 99.0 102 21 127/70 (89) 100 02/03/20 20:00 30 02/03/20 19:13 94 02/03/20 19:00 99 19 112/67 (82) 100 02/03/20 18:45 99 19 30 02/03/20 18:00 96 19 97/59 (72) 100 02/03/20 17:00 98 19 114/64 (81) 100 02/03/20 16:00 94 19 111/61 (78) 100 02/03/20 16:00 30 02/03/20 16:00 Mechanical Ventilator 02/03/20 16:00 94 02/03/20 15:20 96 20 30 02/03/20 15:00 98 19 114/64 (81) 100 02/03/20 14:00 93 20 115/68 (84) 100 I&O Intake and Output 02/03/20 02/04/20 19:00 07:00 Intake Total 1685.0 ml 1191.5 ml Output Total 1055 ml 505 ml Balance 630.0 ml 686.5 ml Free Water 60 ml IV Total 875.0 ml 911.5 ml Tube Feeding 660 ml 220 ml Other 150 ml Output Urine Total 1055 ml 505 ml Cardiovascular: RSR Respiratory: decreased breath sounds Abdomen: non-tender, present bowel sounds Extremities: no cyanosis Laboratory Tests Test 02/04/20 00:18 02/04/20 03:50 02/04/20 05:21 POC Whole Blood Glucose 112 MG/DL (74-106) H 88 MG/DL (74-106) White Blood Count 9.0 K/UL (4.8-10.8) Red Blood Count 2.48 M/UL (4.70-6.10) L Hemoglobin 7.1 G/DL (14.2-18.0) L Hematocrit 20.6 % (42.0-52.0) L Mean Corpuscular Volume 83 FL (80-99) Mean Corpuscular Hemoglobin 28.4 PG (27.0-31.0) Mean Corpuscular Hemoglobin Concent 34.2 G/DL (32.0-36.0) Red Cell Distribution Width 21.2 % (11.6-14.8) H Platelet Count 248 K/UL (150-450) Mean Platelet Volume 7.1 FL (6.5-10.1) Neutrophils (%) (Auto) % (45.0-75.0) Lymphocytes (%) (Auto) % (20.0-45.0) Monocytes (%) (Auto) % (1.0-10.0) Eosinophils (%) (Auto) % (0.0-3.0) Basophils (%) (Auto) % (0.0-2.0) Sodium Level 138 MMOL/L (136-145) Potassium Level 3.6 MMOL/L (3.5-5.1) Chloride Level 107 MMOL/L (98-107) Carbon Dioxide Level 20 MMOL/L (21-32) L Blood Urea Nitrogen 11 mg/dL (7-18) Creatinine 0.8 MG/DL (0.55-1.30) Estimat Glomerular Filtration Rate > 60 mL/min (>60) Glucose Level 80 MG/DL (74-106) Calcium Level 7.4 MG/DL (8.5-10.1) L Phosphorus Level 2.0 MG/DL (2.5-4.9) L Magnesium Level 1.5 MG/DL (1.8-2.4) L Total Bilirubin 0.3 MG/DL (0.2-1.0) Aspartate Amino Transf (AST/SGOT) 48 U/L (15-37) H Alanine Aminotransferase (ALT/SGPT) 25 U/L (12-78) Alkaline Phosphatase 202 U/L (46-116) H Total Protein 5.2 G/DL (6.4-8.2) L Albumin 1.5 G/DL (3.4-5.0) L Globulin 3.7 g/dL Albumin/Globulin Ratio 0.4 (1.0-2.7) L Plan Problems: (1) Altered level of consciousness Assessment & Plan: weaning vent unsure if will be safe for extubation consider trach (2) Hypovolemic shock Assessment & Plan: resuscitation extubated monitor respiratory keep hob elevated supplemental O2 coded intubated in icu prognosis guarded ?code status change ?trach Gallbladder demonstrates sludge. No stones, wall thickening, nor pericholecystic fluid. Patient unable to report Wilson's sign Common bile duct measures 3 mm in diameter. No intrahepatic biliary ductal dilatation. Liver demonstrates coarsened echogenicity and surface nodularity. It demonstrates multiple cysts. Portal vein and hepatic veins are patent. The pancreas demonstrates 3 hypoechoic lesions in the head and body, measuring approximately 5 mm in diameter each. Spleen is unremarkable, poorly visualized. Left kidney measures 11.4 cm in length. Right kidney measures 11.3 cm length. Both kidneys demonstrate normal echogenicity. There is severe right and moderate left hydronephrosis. Echogenic foci are seen in the left renal sinus and collecting system. Bladder is empty, contains a Mathew catheter. Non-aneurysmal abdominal aorta . There are bilateral pleural effusions Impression: Bilateral right greater than left hydronephrosis, increased since prior study of 03/20/2019. Etiology not demonstrated Empty bladder with a Mathew catheter 3 hypoechoic lesions within the pancreatic head and body, each measuring about 5 mm. Appearance nonspecific. Recommend further evaluation with pancreas protocol MRI Bilateral pleural effusions Echogenic liver, consistent with hepatocellular disease. Surface likely nodularity raises concern for cirrhosis Gallbladder sludge. Negative for dilated bile ducts Probable nonobstructive left intrarenal calculi Multiple hepatic cysts (3) Lactic acid acidosis (4) Hypernatremia (5) Paraplegia (6) Anemia Assessment & Plan: no active bleeding noted no large hematoma dressings okay likely related to heme will monitor transfuse prbc with HD trend labs thank you (7) Diabetes (8) Weak (9) HTN (hypertension) (10) ARF (acute renal failure) (11) Hypercalcemia (12) Hyperuricemia (13) Dehydration (14) UTI (urinary tract infection) (15) Failure to thrive in adult Assessment & Plan: patient identified to have DTI on bilateral heels right with 5cm x 4cm area of dti not open no drainage no signs of infection left with 3cm x 2cm. pillow under leg optifoam dressings nutritional optimization will follow no acute surgery DAILY ESTIMATED NEEDS: Needs based on underweight, suspected wt loss, HD, CRITICAL CARE/ 57.6kg 25-33 kcals/kg [id number] total kcals 1.2-2 g protein/kg 69-115 g total protein 25-30 mL/kg 4285-5173 total fluid mLs NUTRITION DIAGNOSIS: *Increased kcal and pro needs r/t underweight status, suspected significant wt loss as evidenced by pt @ 71% IBW w/ BMI 17.2, underweight per guidelines, w/ suspected signficant wt loss of 30lbs/19% in 10 months. * Swallowing difficulty R/T dysphagia, respiratory status as evidenced by s/p NGT insertion (01/08), now NPO, s/p code blue (01/10), orally intubated. CURRENT TF:NPO ENTERAL NUTRITION RECOMMENDATIONS: WHEN HEMODYNAMICALLY STABLE: Nepro @ 40ml/hr x 24 hrs to provide 960ml, 1728kcal, 77g prot, 698ml free water WHEN HEMODYNAMICALLY STABLE AND MEDICALLY APPROPRIATE TO FEED: -> initiate TF @ 5ml/hr x 6hrs, advance slowly 5ml q 4-6 hrs as tolerated to goal rate -> HOB over 30 degrees/ water flush per MD WITHOUT HEMODYNAMIC STABILITY -> If medically appropriate to feed, rec trophic feeding of Nepro @ 5ml/hr x 24 hrs to maintain gut integrity (16) Pelvic mass Assessment & Plan: invasive pelvic mass likely prostate necrotic nodes likely spread recommend colonoscopy given invasion possible to rectum oncology input thank you There is a large pelvic mass which is cephalad to but inseparable from the prostate. This also is inseparable from the posterior wall of the bladder and there appears to be circumferential bladder wall thickening. This mass also appears to involve the seminal vesicles. This measures approximately 8.8 cm transverse by 10 cm craniocaudad by 7.4 cm AP. The periphery of this mass is very lobulated. The mass may also invade the adjacent rectum. There is bilateral iliac chain lymphadenopathy, with nodes measuring up to 3 cm in diameter. Some of these nodes are very low in attenuation indicating that they are necrotic. There is also retroperitoneal lymphadenopathy. There is severe right and moderate left hydronephrosis and bilateral hydroureter. The dilated ureters terminate at the level of the mass. No intrinsic renal parenchymal abnormality. The pancreas is unremarkable. No findings corresponding to the areas of low-attenuation described on prior sonogram are evident. No pancreatic ductal dilatation is evident. The liver demonstrates multiple cysts. The gallbladder, bile ducts, spleen, adrenals are unremarkable. The bones demonstrate diffuse involvement with multiple mixed osteolytic/osteosclerotic lesions, mostly sclerotic component predominating. There is a right groin dialysis catheter in place, tip at the level of the iliac venous confluence. There is a nasogastric tube,, tip in the stomach. There is a Mathew catheter. There is a rectal tube lying outside the patient with the balloon inflated within the inner gluteal fold. There are bilateral pleural effusions. There is compressive atelectasis of most if not all of both lower lobes. 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 Compressive atelectasis of most of not all of both lower lobes Other findings as noted, including multiple liver cysts Lázaro Jenkins Feb 04, 2020 13:30
--- NOTE | 2020-02-04 13:48 | Pulmonology Progress Note ---
Subjective ROS Limited/Unobtainable: No Interval Events: Remains intubated Constitutional: Reports: no symptoms HEENT: Repors: no symptoms Respiratory: Reports: no symptoms Cardiovascular: Reports: no symptoms Gastrointestinal/Abdominal: Reports: no symptoms Genitourinary: Reports: no symptoms Allergies: Coded Allergies: No Known Allergies (Unverified , 03/18/19) All Systems: reviewed and negative except above Objective Last 24 Hour Vital Signs Date Time Temp Pulse Resp B/P (MAP) Pulse Ox O2 Delivery O2 Flow Rate FiO2 02/04/20 13:00 87 15 96/49 (65) 100 02/04/20 12:00 Mechanical Ventilator Mechanical Ventilator 02/04/20 12:00 87 02/04/20 12:00 97.9 87 16 110/62 (78) 100 02/04/20 12:00 30 02/04/20 11:14 89 21 30 02/04/20 11:00 87 17 95/52 (66) 100 02/04/20 10:00 85 15 110/57 (74) 100 02/04/20 09:00 86 16 108/76 (87) 100 02/04/20 08:32 80 02/04/20 08:00 Mechanical Ventilator Mechanical Ventilator 02/04/20 08:00 98.7 85 18 117/68 (84) 100 02/04/20 08:00 30 02/04/20 07:17 88 18 30 02/04/20 07:00 89 19 116/69 (85) 100 02/04/20 06:00 88 18 112/64 (80) 100 02/04/20 05:00 88 17 120/64 (82) 100 02/04/20 04:00 Mechanical Ventilator Mechanical Ventilator 02/04/20 04:00 98.9 85 18 116/64 (81) 100 02/04/20 04:00 30 02/04/20 03:14 90 02/04/20 03:03 82 16 30 02/04/20 03:03 82 16 100 Mechanical Ventilator 30 02/04/20 03:00 83 16 116/66 (83) 100 02/04/20 02:00 92 20 108/63 (78) 100 02/04/20 01:00 92 16 101/57 (72) 100 02/04/20 00:00 99.1 98 20 100/58 (72) 100 02/04/20 00:00 30 02/04/20 00:00 Mechanical Ventilator Mechanical Ventilator 02/03/20 23:02 97 02/03/20 23:00 97 21 111/67 (82) 100 02/03/20 22:59 96 20 30 02/03/20 22:00 91 20 111/63 (79) 100 02/03/20 21:00 96 21 105/64 (78) 100 02/03/20 20:00 Mechanical Ventilator Mechanical Ventilator 02/03/20 20:00 99.0 102 21 127/70 (89) 100 02/03/20 20:00 30 02/03/20 19:13 94 02/03/20 19:00 99 19 112/67 (82) 100 02/03/20 18:45 99 19 30 02/03/20 18:00 96 19 97/59 (72) 100 02/03/20 17:00 98 19 114/64 (81) 100 02/03/20 16:00 94 19 111/61 (78) 100 02/03/20 16:00 30 02/03/20 16:00 Mechanical Ventilator 02/03/20 16:00 94 02/03/20 15:20 96 20 30 02/03/20 15:00 98 19 114/64 (81) 100 02/03/20 14:00 93 20 115/68 (84) 100 Intake and Output 02/03/20 02/04/20 19:00 07:00 Intake Total 1685.0 ml 1191.5 ml Output Total 1055 ml 505 ml Balance 630.0 ml 686.5 ml Free Water 60 ml IV Total 875.0 ml 911.5 ml Tube Feeding 660 ml 220 ml Other 150 ml Output Urine Total 1055 ml 505 ml General Appearance: no acute distress HEENT: normocephalic Respiratory: chest wall non-tender, lungs clear Cardiovascular: normal peripheral pulses, normal rate Abdomen: normal bowel sounds Microbiology Date/Time Source Procedure Growth Status 02/02/20 15:30 Stool Clostridium difficile Toxin Assay - Final Complete 02/02/20 15:30 Sputum Gram Stain - Final Resulted 02/02/20 15:30 Sputum Culture - Preliminary Gram Negative Bacillus 1 Resulted 02/02/20 14:22 Catheter Site Catheter Tip Culture - Preliminary NO GROWTH AFTER 24 HOURS Resulted Laboratory Tests 02/04/20 00:18: POC Whole Blood Glucose 112H 02/04/20 03:50: White Blood Count 9.0, Red Blood Count 2.48L, Hemoglobin 7.1L, Hematocrit 20.6L, Mean Corpuscular Volume 83, Mean Corpuscular Hemoglobin 28.4, Mean Corpuscular Hemoglobin Concent 34.2, Red Cell Distribution Width 21.2H, Platelet Count 248, Mean Platelet Volume 7.1, Neutrophils (%) (Auto) , Lymphocytes (%) (Auto) , Monocytes (%) (Auto) , Eosinophils (%) (Auto) , Basophils (%) (Auto) , Sodium Level 138, Potassium Level 3.6, Chloride Level 107, Carbon Dioxide Level 20L, Blood Urea Nitrogen 11, Creatinine 0.8, Estimat Glomerular Filtration Rate > 60, Glucose Level 80, Calcium Level 7.4L, Phosphorus Level 2.0L, Magnesium Level 1.5L, Total Bilirubin 0.3, Aspartate Amino Transf (AST/SGOT) 48H, Alanine Moffett otransferase (ALT/SGPT) 25, Alkaline Phosphatase 202H, Total Creatine Kinase [Pending], Total Protein 5.2L, Albumin 1.5L, Globulin 3.7, Albumin/Globulin Ratio 0.4L 02/04/20 05:21: POC Whole Blood Glucose 88 Current Medications Medications (Trade) Dose Ordered Sig/Jesse Route PRN Reason Start Time Stop Time Status Last Admin Dose Admin Acetaminophen (Tylenol) 650 mg Q4H PRN NG Temp >100.5, mild pain 02/03/20 22:15 03/04/20 22:14 02/03/20 23:04 Bisacodyl (Dulcolax) 10 mg DAILY PRN RECTAL Constipation 01/05/20 20:15 04/04/20 20:14 Chlorhexidine Gluconate (Navya-Hex 2%) 1 applic DAILY@2000 TOPIC 01/11/20 20:00 04/10/20 19:59 02/03/20 20:06 Daptomycin 700 mg/ Sodium Chloride 55 ml @ 110 mls/hr Q24H IV 02/04/20 15:00 02/11/20 14:59 Dextrose (Dextrose 50%) 25 ml Q30M PRN IV Hypoglycemia 01/05/20 20:15 04/04/20 20:14 01/24/20 23:53 Dextrose (Dextrose 50%) 50 ml Q30M PRN IV Hypoglycemia 01/05/20 20:15 04/04/20 20:14 Dextrose/Sodium Chloride 1,000 ml @ 60 mls/hr [id number] IV 01/24/20 13:30 02/23/20 13:29 02/04/20 13:02 Lansoprazole (Prevacid) 30 mg Q12HR NG 01/28/20 21:00 02/27/20 20:59 02/04/20 08:05 Linaclotide (Linzess) 290 mcg BEFORE BREAKFAST ORAL 01/10/20 06:30 04/09/20 06:29 02/03/20 05:35 Loperamide HCl (Imodium) 2 mg Q6H PRN NG Diarrhea 01/27/20 15:45 02/26/20 15:44 01/27/20 17:58 Metoclopramide HCl (Reglan) 10 mg EVERY 6 HOURS NG 01/19/20 12:00 02/18/20 11:59 02/04/20 11:52 Metoclopramide HCl (Reglan) 10 mg Q6H PRN IVP Nausea & Vomiting 01/16/20 13:00 02/15/20 12:59 Midodrine (Pro-Amatine) 10 mg Q8HR NG 01/20/20 22:00 04/13/20 17:59 02/04/20 13:43 Ondansetron HCl (Zofran) 4 mg Q6H PRN IVP Nausea & Vomiting 01/10/20 06:30 02/09/20 06:29 Piperacillin Sod/ Tazobactam Sod 3.375 gm/Sodium Chloride 110 ml @ 27.5 mls/hr EVERY 8 HOURS IVPB 01/30/20 14:00 02/09/20 23:59 02/04/20 13:43 Polyethylene Glycol (Miralax) 17 gm BEDTIME NG 01/11/20 21:00 02/08/20 20:59 01/29/20 20:39 Potassium Phosphate 250 ml @ 62.5 mls/hr Q4H IVPB 02/04/20 09:00 02/04/20 16:59 02/04/20 13:02 Sennosides (Senokot) 8.6 mg QHS NG 01/11/20 21:00 02/11/20 20:59 01/29/20 20:39 Vitamin D (Vitamin D) 3,000 intlu DAILY GT 01/19/20 12:00 02/18/20 11:59 02/04/20 08:05 Assessment/Plan Assessment/Plan IMPRESSION: 1. Severe metabolic acidosis. Corrected; now has combined respiratory and metabolic alkalosis 2. Respiratory failure; now reintubated 3. Diarrhea. Resolved 4. Acute renal failure. Nephrology following; 5. Anemia; DISCUSSION: EGD and PEG postponed Remains obtunded Intubated Poor prognosis Recommend comfort care Daxa Infante Omar Syed MD Feb 04, 2020 13:48
[2020-02-04 14:25] LABS: CREATINE KINASE 49 U/L (26-308)
--- NOTE | 2020-02-04 14:52 | Cardiac Electrophysiology PN ---
Assessment/Plan Assessment/Plan 1. Altered mental status due to severe dehydration in view of sodium of 160 and acute renal failure. On IV fluids and IV antibiotics. Ruled out for [place]. 2. Septic shock, off levophed and on iv Abx On Midodrine 10 tid 3. History of CVA, off Plavix in view of hematuria. 4. Respiratory failure, Extubated 01/22 and reintubated 01/29/20 Tracheostomy scheduled for tomorrow 5. Diabetes. 6. Acute renal failure. Cr 4.2. Had HD once only on 01/11/20. No more HD needed and Cr 1.2 7. Hematuria 8. Anemia with Hb 5.8 and coffee ground emesis. FU Dr Bueno 9. Shock liver with increase AST>2000 10. Metastatic prostate cancer -- w psa [id number] with a Large pelvic mass involving the prostate, bladder, seminal vesicles, presumably representing prostatic malignancy Severe right and moderate left hydronephrosis and bilateral hydroureter, due to ureteral obstruction by the above mass 11. Dysphagia, NGT feeding. PEG pending after Trach KARLO RN and Dr Biswas Subjective Subjective Coded 01/19 for respiratory failure followed by bradycardia and PEA. Extubated 01/23/20. PEG cancelled due to respiratory issue Had PRE [employer] and then had asystole and was intubated PEG placement postponed to after tracheostomy tomorrow Mega removed from Right FV and placed in Right IJ Objective Last 24 Hour Vital Signs Date Time Temp Pulse Resp B/P (MAP) Pulse Ox O2 Delivery O2 Flow Rate FiO2 02/04/20 14:00 91 16 117/67 (84) 100 02/04/20 13:00 87 15 96/49 (65) 100 02/04/20 12:00 Mechanical Ventilator Mechanical Ventilator 02/04/20 12:00 87 02/04/20 12:00 97.9 87 16 110/62 (78) 100 02/04/20 12:00 30 02/04/20 11:14 89 21 30 02/04/20 11:00 87 17 95/52 (66) 100 02/04/20 10:00 85 15 110/57 (74) 100 02/04/20 09:00 86 16 108/76 (87) 100 02/04/20 08:32 80 02/04/20 08:00 Mechanical Ventilator Mechanical Ventilator 02/04/20 08:00 98.7 85 18 117/68 (84) 100 02/04/20 08:00 30 02/04/20 07:17 88 18 30 02/04/20 07:00 89 19 116/69 (85) 100 02/04/20 06:00 88 18 112/64 (80) 100 02/04/20 05:00 88 17 120/64 (82) 100 02/04/20 04:00 Mechanical Ventilator Mechanical Ventilator 02/04/20 04:00 98.9 85 18 116/64 (81) 100 02/04/20 04:00 30 02/04/20 03:14 90 02/04/20 03:03 82 16 30 02/04/20 03:03 82 16 100 Mechanical Ventilator 30 02/04/20 03:00 83 16 116/66 (83) 100 02/04/20 02:00 92 20 108/63 (78) 100 02/04/20 01:00 92 16 101/57 (72) 100 02/04/20 00:00 99.1 98 20 100/58 (72) 100 02/04/20 00:00 30 02/04/20 00:00 Mechanical Ventilator Mechanical Ventilator 02/03/20 23:02 97 02/03/20 23:00 97 21 111/67 (82) 100 02/03/20 22:59 96 20 30 02/03/20 22:00 91 20 111/63 (79) 100 02/03/20 21:00 96 21 105/64 (78) 100 02/03/20 20:00 Mechanical Ventilator Mechanical Ventilator 02/03/20 20:00 99.0 102 21 127/70 (89) 100 02/03/20 20:00 30 02/03/20 19:13 94 02/03/20 19:00 99 19 112/67 (82) 100 02/03/20 18:45 99 19 30 02/03/20 18:00 96 19 97/59 (72) 100 02/03/20 17:00 98 19 114/64 (81) 100 02/03/20 16:00 94 19 111/61 (78) 100 02/03/20 16:00 30 02/03/20 16:00 Mechanical Ventilator 02/03/20 16:00 94 02/03/20 15:20 96 20 30 02/03/20 15:00 98 19 114/64 (81) 100 Intake and Output 02/03/20 02/04/20 19:00 07:00 Intake Total 1685.0 ml 1191.5 ml Output Total 1055 ml 505 ml Balance 630.0 ml 686.5 ml Free Water 60 ml IV Total 875.0 ml 911.5 ml Tube Feeding 660 ml 220 ml Other 150 ml Output Urine Total 1055 ml 505 ml Laboratory Tests Test 02/04/20 00:18 02/04/20 03:50 02/04/20 05:21 POC Whole Blood Glucose 112 MG/DL (74-106) H 88 MG/DL (74-106) White Blood Count 9.0 K/UL (4.8-10.8) Red Blood Count 2.48 M/UL (4.70-6.10) L Hemoglobin 7.1 G/DL (14.2-18.0) L Hematocrit 20.6 % (42.0-52.0) L Mean Corpuscular Volume 83 FL (80-99) Mean Corpuscular Hemoglobin 28.4 PG (27.0-31.0) Mean Corpuscular Hemoglobin Concent 34.2 G/DL (32.0-36.0) Red Cell Distribution Width 21.2 % (11.6-14.8) H Platelet Count 248 K/UL (150-450) Mean Platelet Volume 7.1 FL (6.5-10.1) Neutrophils (%) (Auto) % (45.0-75.0) Lymphocytes (%) (Auto) % (20.0-45.0) Monocytes (%) (Auto) % (1.0-10.0) Eosinophils (%) (Auto) % (0.0-3.0) Basophils (%) (Auto) % (0.0-2.0) Sodium Level 138 MMOL/L (136-145) Potassium Level 3.6 MMOL/L (3.5-5.1) Chloride Level 107 MMOL/L (98-107) Carbon Dioxide Level 20 MMOL/L (21-32) L Blood Urea Nitrogen 11 mg/dL (7-18) Creatinine 0.8 MG/DL (0.55-1.30) Estimat Glomerular Filtration Rate > 60 mL/min (>60) Glucose Level 80 MG/DL (74-106) Calcium Level 7.4 MG/DL (8.5-10.1) L Phosphorus Level 2.0 MG/DL (2.5-4.9) L Magnesium Level 1.5 MG/DL (1.8-2.4) L Total Bilirubin 0.3 MG/DL (0.2-1.0) Aspartate Amino Transf (AST/SGOT) 48 U/L (15-37) H Alanine Aminotransferase (ALT/SGPT) 25 U/L (12-78) Alkaline Phosphatase 202 U/L (46-116) H Total Creatine Kinase 49 U/L (26-308) Total Protein 5.2 G/DL (6.4-8.2) L Albumin 1.5 G/DL (3.4-5.0) L Globulin 3.7 g/dL Albumin/Globulin Ratio 0.4 (1.0-2.7) L Microbiology Date/Time Source Procedure Growth Status 02/02/20 15:30 Stool Clostridium difficile Toxin Assay - Final Complete 02/02/20 15:30 Sputum Gram Stain - Final Resulted 02/02/20 15:30 Sputum Culture - Preliminary Gram Negative Bacillus 1 Resulted 02/02/20 14:22 Catheter Site Catheter Tip Culture - Preliminary NO GROWTH AFTER 24 HOURS Resulted Objective HEAD AND NECK: NGT in place. Orally intubated LUNGS: Coarse rhonchi. CARDIOVASCULAR: Regular S1 and S2 with no gallop. ABDOMEN: Soft. EXTREMITIES: No pitting edema. Kevin Lopez MD Feb 04, 2020 14:52
[2020-02-04] MEDS: DAPTOmycin 700 MG in NS 55 ML IV SCH (17:34)
[2020-02-04] MEDS: Dyna-Hex 2% Top Sol 2oz TOPIC SCH (20:00)
[2020-02-04] MEDS: Miralax 17gm pkt NG SCH (21:00)
[2020-02-04] MEDS: Sennosides 8.6mg tab NG SCH (21:10)
[2020-02-05] VITALS (32 sets, daily range): BP systolic 91–153; BP diastolic 56–82
[2020-02-05 04:49] LABS: HEMOGLOBIN 8.9 G/DL (14.2-18.0); MEAN CORPUSCULAR VOLUME 80 FL (80-99); PLATELET COUNT 288 K/UL (150-450); RED BLOOD COUNT 3.24 M/UL (4.70-6.10); RED CELL DISTRIBUTION WIDTH 21.6 % (11.6-14.8); WHITE BLOOD COUNT 9.2 K/UL (4.8-10.8)
[2020-02-05 04:51] LABS: INR 1.1 (0.9-1.1)
[2020-02-05 05:02] LABS: ANION GAP 11 mmol/L (5-15); BLOOD UREA NITROGEN 11 mg/dL (7-18); CALCIUM 7.4 MG/DL (8.5-10.1); CARBON DIOXIDE 20 MMOL/L (21-32); CHLORIDE 106 MMOL/L (98-107); CREATININE 0.8 MG/DL (0.55-1.30); POTASSIUM 3.7 MMOL/L (3.5-5.1); SODIUM 137 MMOL/L (136-145)
[2020-02-05] MEDS: Piperacillin/Tazobactam 3.375 GM in NS 110 ML IVPB SCH ×3 (05:54→21:50)
[2020-02-05] MEDS: Midodrine 10mg tab NG SCH ×3 (05:54→21:50)
[2020-02-05] MEDS: Metoclopramide 10mg/10ml Liq NG SCH ×4 (05:54→23:12)
[2020-02-05] MEDS: D5 1/2NS 1,000 ML IV SCH ×2 (06:11→14:50)
--- NOTE | 2020-02-05 07:23 | Hematology/Onc Progress Note ---
Assessment/Plan Assessment/Plan Assessment/Recs # Metastatic prostate cancer -- w psa [id number], has a Large pelvic mass as described involving the prostate, bladder, seminal vesicles, presumably representing prostatic malignancy --> CT Evidence of disseminated malignancy, with extensive lymphadenopathy of and evidenc of diffuse osseous metastases Severe right and moderate left hydronephrosis and bilateral hydroureter, due to ureteral obstruction by the above mass --> tumor markers ordered, psa [id number] --> after above reviewed, consider further biopsy of prostate with uro as needed # Pancytopenia with initially Anemia due to underlying chronic medical issues, multifactorial v Gi bleed v malignancy --> Anemia workup has been ordered, rule out gi bleed --> No evidence of hemolysis is noted, peripheral smear has been reviewed. --> Hgb goal >7. Transfuse prn. --> Epogen or iron at this time is not particularly indicated --> Medications have been reviewed --> low threshold for gi evaluation in case has occult + --> hgb 10-->9.7-->9.2->10-->8.6-->7.7-->5-->8.3->9.3->7.8-->8.2-->8.1-->9.3-->9.9->10-> 7.5 --> 11/8 flow cytometry ordered bc of nucleated cells on smear-->neg --> wbc 5-->4-->3.9-->4 --> plt 150-->98-->82-->51->49-->46-->50-->68-->88-->109 --> hep and hiv panel--NEG --> us abd-->shows 3 small lesions, requires further eval --> CT a/p reviewed # Multiple lesions noted in pancreas --> MRI abd ordered--> nondiagnostic --> CT of the abd reviewed # Respiratory failure --> s/p vent --> trach 02/04 scheduled # Protein caloric malnutrition --> daily calorie counts --> daily weights --> mirtazapine started # Acute renal failure --> continue on ivfs --> as per renal # Hypokalemia --> replete with K # Severe dehydration --> ivfs ongoing # Respiratory failure --> s/p intubation # Hypernatremia indicative of severe water deficit # Severe hyperuricemia, partly due to dehydration and renal failure # Acute metabolic and toxic encephalopathy # Mild, malnutrition # Psych issues per psych # Lactic acid, possible sepsis # Dvt ppx heparin sq->Scds # Comfort care potentially The timing of this note does not necessarily reflect the time of the patient was seen. Greatly appreciate consultation. Subjective Constitutional: Denies: no symptoms, chills, fever, malaise, weakness, other HEENT: Denies: no symptoms, eye pain, blurred vision, tearing, double vision, ear pain, ear discharge, nose pain, nose congestion, throat pain, throat swelling, mouth pain, mouth swelling, other Cardiovascular: Denies: no symptoms, chest pain, edema, irregular heart rate, lightheadedness, palpitations, syncope, other Genitourinary: Denies: no symptoms, burning, discharge, frequency, flank pain, hematuria, incontinence, pain, urgency, other Neurologic/Psychiatric: Denies: no symptoms, anxiety, depressed, emotional problems, headache, numbness, paresthesia, pre-existing deficit, seizure, ting ling, tremors, weakness, other Endocrine: Denies: no symptoms, excessive sweating, flushing, intolerance to cold, intolerance to heat, increased hunger, increased thirst, increased urine, unexplained weight gain, unexplained weight loss, other Allergies: Coded Allergies: No Known Allergies (Unverified , 03/18/19) Subjective 01/07 meds noted, no bleeding, hgb 10, no hemolysis, hgb 10.1 01/08 labs reviewed, vi rn, no major events, no bleeding, hgb lower 01/09 labs noted, no bleeding, vi rn, no major changes, plt lower 01/10 did have epistaxis overnight, no bleeding, night sweats, epistaxis better 01/12 icu, remains on vent, levo, no bleeding, meds noted 01/13 remains in icu, no bleeding, on levo, no major changes 01/14 icu, is on 1l, restarints are off, no bleeding, no night sweats 01/15 icu, meds noted, with diarrhea, rectal tube reinserted, on nc 01/16 out of icu, no bleeding, meds reviewed, cbc ad bmp pending 01/17 unable to lay still for the mri, thus ct ordered, vi rn 01/19 hgb 6.9, no bleeding, no hemolysis, ct reviewed 01/20 obtunded, meds reviewed, hgb is better, in icu 01/21 obtunded, npo, labs hjave been reviewed, hgb 9.2 01/22 obtunded, in icu, no bleeding, plt 109 01/23 obtunded still icu, on venturimask, meds reviewed, labs noted 01/24 obtunded, in icu, labs reviewed, meds noted, wbc 4.1, plt 133 01/26 is out of the icu, no bleeding, meds noted, labs ordered 01/27 nonverbal, out of icu, on feedigs, no bleeding, labs reviewed 01/28 icu, nv, is on midrinone, linzess, ivf 01/29 icu, off levop, ngt restarted, meds noted 01/30 icu, with large bm, labs reviewed, no f/c, zosyn 01/31 icu, levo is on hold, no bleeding, abx, hgb 7.5 02/02 in icu, intubated, with ngt, no bleeding, labs noted 02/03 icu, labs are noted, remains intubated, to get 1unit prbc 02/04 vent/, trach to be done today, hgb much improved 8.9 Objective Objective Current Medications Medications (Trade) Dose Ordered Sig/Jesse Route PRN Reason Start Time Stop Time Status Last Admin Dose Admin Acetaminophen (Tylenol) 650 mg Q4H PRN NG Temp >100.5, mild pain 02/03/20 22:15 03/04/20 22:14 02/03/20 23:04 Bisacodyl (Dulcolax) 10 mg DAILY PRN RECTAL Constipation 01/05/20 20:15 04/04/20 20:14 Chlorhexidine Gluconate (Navya-Hex 2%) 1 applic DAILY@1999 TOPIC 01/11/20 20:00 04/10/20 19:59 02/04/20 20:00 Daptomycin 700 mg/ Sodium Chloride 55 ml @ 110 mls/hr Q24H IV 02/04/20 15:00 02/11/20 14:59 02/04/20 17:34 Dextrose (Dextrose 50%) 25 ml Q30M PRN IV Hypoglycemia 01/05/20 20:15 04/04/20 20:14 01/24/20 23:53 Dextrose (Dextrose 50%) 50 ml Q30M PRN IV Hypoglycemia 01/05/20 20:15 04/04/20 20:14 Dextrose/Sodium Chloride 1,000 ml @ 60 mls/hr [id number] IV 01/24/20 13:30 02/23/20 13:29 02/05/20 06:11 Lansoprazole (Prevacid) 30 mg Q12HR NG 01/28/20 21:00 02/27/20 20:59 02/04/20 21:10 Linaclotide (Linzess) 290 mcg BEFORE BREAKFAST ORAL 01/10/20 06:30 04/09/20 06:29 02/05/20 05:54 Loperamide HCl (Imodium) 2 mg Q6H PRN NG Diarrhea 01/27/20 15:45 02/26/20 15:44 01/27/20 17:58 Metoclopramide HCl (Reglan) 10 mg EVERY 6 HOURS NG 01/19/20 12:00 02/18/20 11:59 02/05/20 05:54 Metoclopramide HCl (Reglan) 10 mg Q6H PRN IVP Nausea & Vomiting 01/16/20 13:00 02/15/20 12:59 Midodrine (Pro-Amatine) 10 mg Q8HR NG 01/20/20 22:00 04/13/20 17:59 02/05/20 05:54 Ondansetron HCl (Zofran) 4 mg Q6H PRN IVP Nausea & Vomiting 01/10/20 06:30 02/09/20 06:29 Piperacillin Sod/ Tazobactam Sod 3.375 gm/Sodium Chloride 110 ml @ 27.5 mls/hr EVERY 8 HOURS IVPB 01/30/20 14:00 02/09/20 23:59 02/05/20 05:54 Polyethylene Glycol (Miralax) 17 gm BEDTIME NG 01/11/20 21:00 02/08/20 20:59 01/29/20 20:39 Sennosides (Senokot) 8.6 mg QHS NG 01/11/20 21:00 02/11/20 20:59 02/04/20 21:10 Vitamin D (Vitamin D) 3,000 intlu DAILY GT 01/19/20 12:00 02/18/20 11:59 02/04/20 08:05 Last 24 Hour Vital Signs Date Time Temp Pulse Resp B/P (MAP) Pulse Ox O2 Delivery O2 Flow Rate FiO2 02/05/20 07:00 84 22 119/75 (90) 100 02/05/20 06:00 85 17 118/69 (85) 100 02/05/20 05:00 93 22 126/77 (93) 100 02/05/20 04:00 Mechanical Ventilator Mechanical Ventilator 02/05/20 04:00 30 02/05/20 04:00 98.0 89 18 116/69 (85) 100 02/05/20 03:02 88 02/05/20 03:00 92 20 128/82 (97) 100 02/05/20 02:58 92 20 30 02/05/20 02:00 87 16 110/61 (77) 100 02/05/20 01:00 87 21 117/67 (84) 100 02/05/20 00:00 98.6 85 21 105/63 (77) 100 02/05/20 00:00 30 02/05/20 00:00 Mechanical Ventilator Mechanical Ventilator 02/04/20 23:17 91 19 30 02/04/20 23:16 87 02/04/20 23:00 86 21 120/69 (86) 100 02/04/20 22:00 82 21 132/70 (90) 100 02/04/20 21:00 92 19 118/66 (83) 100 02/04/20 20:00 30 02/04/20 20:00 98.9 88 19 120/71 (87) 100 02/04/20 20:00 Mechanical Ventilator Mechanical Ventilator 02/04/20 19:25 87 02/04/20 19:03 88 21 30 02/04/20 19:00 91 22 128/69 (88) 100 02/04/20 18:00 73 18 131/72 (91) 100 02/04/20 17:00 81 17 132/78 (96) 100 02/04/20 16:00 30 02/04/20 16:00 85 02/04/20 16:00 Mechanical Ventilator Mechanical Ventilator 02/04/20 16:00 98.0 84 18 119/98 (105) 100 02/04/20 15:21 93 19 30 02/04/20 15:00 86 17 122/68 (86) 100 02/04/20 14:00 91 16 117/67 (84) 100 02/04/20 13:00 87 15 96/49 (65) 100 02/04/20 12:00 Mechanical Ventilator Mechanical Ventilator 02/04/20 12:00 87 02/04/20 12:00 97.9 87 16 110/62 (78) 100 02/04/20 12:00 30 02/04/20 11:14 89 21 30 02/04/20 11:00 87 17 95/52 (66) 100 02/04/20 10:00 85 15 110/57 (74) 100 02/04/20 09:00 86 16 108/76 (87) 100 02/04/20 08:32 80 02/04/20 08:00 Mechanical Ventilator Mechanical Ventilator 02/04/20 08:00 98.7 85 18 117/68 (84) 100 02/04/20 08:00 30 02/04/20 07:17 88 18 30 02/04/20 07:00 89 19 116/69 (85) 100 02/04/20 06:00 88 18 112/64 (80) 100 02/04/20 05:00 88 17 120/64 (82) 100 02/04/20 04:00 Mechanical Ventilator Mechanical Ventilator 02/04/20 04:00 98.9 85 18 116/64 (81) 100 02/04/20 04:00 30 02/04/20 03:14 90 02/04/20 03:03 82 16 30 02/04/20 03:03 82 16 100 Mechanical Ventilator 30 02/04/20 03:00 83 16 116/66 (83) 100 02/04/20 02:00 92 20 108/63 (78) 100 02/04/20 01:00 92 16 101/57 (72) 100 02/04/20 00:00 99.1 98 20 100/58 (72) 100 02/04/20 00:00 30 02/04/20 00:00 Mechanical Ventilator Mechanical Ventilator 02/03/20 23:02 97 02/03/20 23:00 97 21 111/67 (82) 100 02/03/20 22:59 96 20 30 02/03/20 22:00 91 20 111/63 (79) 100 02/03/20 21:00 96 21 105/64 (78) 100 02/03/20 20:00 Mechanical Ventilator Mechanical Ventilator 02/03/20 20:00 99.0 102 21 127/70 (89) 100 02/03/20 20:00 30 02/03/20 19:13 94 02/03/20 19:00 99 19 112/67 (82) 100 02/03/20 18:45 99 19 30 02/03/20 18:00 96 19 97/59 (72) 100 02/03/20 17:00 98 19 114/64 (81) 100 02/03/20 16:00 94 19 111/61 (78) 100 02/03/20 16:00 30 02/03/20 16:00 Mechanical Ventilator 02/03/20 16:00 94 02/03/20 15:20 96 20 30 02/03/20 15:00 98 19 114/64 (81) 100 02/03/20 14:00 93 20 115/68 (84) 100 02/03/20 13:00 96 19 123/68 (86) 100 02/03/20 12:00 97.1 99 20 114/60 (78) 100 02/03/20 12:00 30 02/03/20 12:00 95 02/03/20 12:00 Mechanical Ventilator 02/03/20 11:18 102 22 30 02/03/20 11:00 99 20 117/67 (84) 100 02/03/20 10:00 98 19 111/61 (78) 100 02/03/20 09:00 101 20 147/82 (103) 100 02/03/20 08:00 30 02/03/20 08:00 100 02/03/20 08:00 97.5 100 20 135/77 (96) 100 02/03/20 08:00 Mechanical Ventilator Intake and Output 02/04/20 02/05/20 19:00 07:00 Intake Total 2335.0 ml 872.76 ml Output Total 1785 ml 910 ml Balance 550.0 ml -37.24 ml Free Water 30 ml IV Total 1560.0 ml 652.76 ml Tube Feeding 495 ml 220 ml Blood Product 250 ml Output Urine Total 885 ml 610 ml Stool Total 900 ml 300 ml Labs Test 02/02/20 12:27 02/03/20 00:08 02/03/20 05:17 02/03/20 06:00 POC Whole Blood Glucose 123 MG/DL (74-106) 120 MG/DL (74-106) 101 MG/DL (74-106) White Blood Count 10.2 K/UL (4.8-10.8) Red Blood Count 2.62 M/UL (4.70-6.10) Hemoglobin 7.5 G/DL (14.2-18.0) Hematocrit 22.1 % (42.0-52.0) Mean Corpuscular Volume 84 FL (80-99) Mean Corpuscular Hemoglobin 28.7 PG (27.0-31.0) Mean Corpuscular Hemoglobin Concent 34.0 G/DL (32.0-36.0) Red Cell Distribution Width 20.9 % (11.6-14.8) Platelet Count 263 K/UL (150-450) Mean Platelet Volume 7.0 FL (6.5-10.1) Neutrophils (%) (Auto) % (45.0-75.0) Lymphocytes (%) (Auto) % (20.0-45.0) Monocytes (%) (Auto) % (1.0-10.0) Eosinophils (%) (Auto) % (0.0-3.0) Basophils (%) (Auto) % (0.0-2.0) Differential Total Cells Counted 100 Neutrophils % (Manual) 85 % (45-75) Lymphocytes % (Manual) 4 % (20-45) Monocytes % (Manual) 7 % (1-10) Eosinophils % (Manual) 1 % (0-3) Basophils % (Manual) 0 % (0-2) Metamyelocytes % 1 % (0-0) Myelocytes % 2 % (0-0) Band Neutrophils 0 % (0-8) Platelet Estimate Adequate Platelet Morphology Normal Polychromasia Occasional Anisocytosis 2+ Sodium Level 140 MMOL/L (136-145) Potassium Level 3.1 MMOL/L (3.5-5.1) Chloride Level 110 MMOL/L (98-107) Carbon Dioxide Level 21 MMOL/L (21-32) Anion Gap 9 mmol/L (5-15) Blood Urea Nitrogen 11 mg/dL (7-18) Creatinine 0.9 MG/DL (0.55-1.30) Estimat Glomerular Filtration Rate > 60 mL/min (>60) Glucose Level 105 MG/DL (74-106) Calcium Level 6.7 MG/DL (8.5-10.1) Test 02/03/20 10:50 02/04/20 00:18 02/04/20 03:50 02/04/20 05:21 Prothrombin Time 12.3 SEC (9.30-11.50) Prothromb Time International Ratio 1.1 (0.9-1.1) Activated Partial Thromboplast Time 28 SEC (23-33) POC Whole Blood Glucose 112 MG/DL (74-106) 88 MG/DL (74-106) White Blood Count 9.0 K/UL (4.8-10.8) Red Blood Count 2.48 M/UL (4.70-6.10) Hemoglobin 7.1 G/DL (14.2-18.0) Hematocrit 20.6 % (42.0-52.0) Mean Corpuscular Volume 83 FL (80-99) Mean Corpuscular Hemoglobin 28.4 PG (27.0-31.0) Mean Corpuscular Hemoglobin Concent 34.2 G/DL (32.0-36.0) Red Cell Distribution Width 21.2 % (11.6-14.8) Platelet Count 248 K/UL (150-450) Mean Platelet Volume 7.1 FL (6.5-10.1) Neutrophils (%) (Auto) % (45.0-75.0) Lymphocytes (%) (Auto) % (20.0-45.0) Monocytes (%) (Auto) % (1.0-10.0) Eosinophils (%) (Auto) % (0.0-3.0) Basophils (%) (Auto) % (0.0-2.0) Sodium Level 138 MMOL/L (136-145) Potassium Level 3.6 MMOL/L (3.5-5.1) Chloride Level 107 MMOL/L (98-107) Carbon Dioxide Level 20 MMOL/L (21-32) Blood Urea Nitrogen 11 mg/dL (7-18) Creatinine 0.8 MG/DL (0.55-1.30) Estimat Glomerular Filtration Rate > 60 mL/min (>60) Glucose Level 80 MG/DL (74-106) Calcium Level 7.4 MG/DL (8.5-10.1) Phosphorus Level 2.0 MG/DL (2.5-4.9) Magnesium Level 1.5 MG/DL (1.8-2.4) Total Bilirubin 0.3 MG/DL (0.2-1.0) Aspartate Amino Transf (AST/SGOT) 48 U/L (15-37) Alanine Aminotransferase (ALT/SGPT) 25 U/L (12-78) Alkaline Phosphatase 202 U/L (46-116) Total Creatine Kinase 49 U/L (26-308) Total Protein 5.2 G/DL (6.4-8.2) Albumin 1.5 G/DL (3.4-5.0) Globulin 3.7 g/dL Albumin/Globulin Ratio 0.4 (1.0-2.7) Test 02/05/20 03:50 White Blood Count 9.2 K/UL (4.8-10.8) Red Blood Count 3.24 M/UL (4.70-6.10) Hemoglobin 8.9 G/DL (14.2-18.0) Hematocrit 26.0 % (42.0-52.0) Mean Corpuscular Volume 80 FL (80-99) Mean Corpuscular Hemoglobin 27.6 PG (27.0-31.0) Mean Corpuscular Hemoglobin Concent 34.3 G/DL (32.0-36.0) Red Cell Distribution Width 21.6 % (11.6-14.8) Platelet Count 288 K/UL (150-450) Mean Platelet Volume 6.7 FL (6.5-10.1) Neutrophils (%) (Auto) % (45.0-75.0) Lymphocytes (%) (Auto) % (20.0-45.0) Monocytes (%) (Auto) % (1.0-10.0) Eosinophils (%) (Auto) % (0.0-3.0) Basophils (%) (Auto) % (0.0-2.0) Prothrombin Time 12.1 SEC (9.30-11.50) Prothromb Time International Ratio 1.1 (0.9-1.1) Sodium Level 137 MMOL/L (136-145) Potassium Level 3.7 MMOL/L (3.5-5.1) Chloride Level 106 MMOL/L (98-107) Carbon Dioxide Level 20 MMOL/L (21-32) Anion Gap 11 mmol/L (5-15) Blood Urea Nitrogen 11 mg/dL (7-18) Creatinine 0.8 MG/DL (0.55-1.30) Estimat Glomerular Filtration Rate > 60 mL/min (>60) Glucose Level 93 MG/DL (74-106) Calcium Level 7.4 MG/DL (8.5-10.1) Height (Feet): 5 Height (Inches): 9.00 Weight (Pounds): 149 Objective PE: Vitals: reviewed General Appearance: NAD HEENT: normocephalic, atraumatic Neck: non-tender, normal alignment Respiratory/Chest: nromal breath sounds bilaterally Cardiovascular/Chest: normal peripheral pulses, normal rate Abdomen: normal bowel sounds, soft, nontender Extremities: normal range of motion Samuel Son MD Feb 05, 2020 07:23
[2020-02-05 08:08] LABS: ALANINE AMINOTRANSFERASE 29 U/L (12-78); ALBUMIN 1.6 G/DL (3.4-5.0); ALKALINE PHOSPHATASE 214 U/L (46-116); ASPARTATE AMINO TRANSFERASE 50 U/L (15-37); BILIRUBIN,DIRECT 0.2 MG/DL (0.0-0.3); BILIRUBIN,TOTAL 0.5 MG/DL (0.2-1.0); PHOSPHORUS 2.7 MG/DL (2.5-4.9)
--- NOTE | 2020-02-05 08:40 | Infectious Diseases Prog Note ---
Assessment/Plan 69yo M with: VRE bacteremia, most likely 2/2 HD cath placed 01/10 01/29 BCx 1/ + VRE 01/31 BCx NTD (prior to started abx for VRE) 02/01 Cath tip cx neg 02/01 Resp cx +P.mirabilis (S-CTX) & SA, sensi p 02/03 Daptomycin started 02/04 BCx p Recurrent resp failure, most likely 2/2 increased volume, vascular congestion, pleural effusion, less likely 2/2 infection CODE BLUE 01/28, r/o infection Large L pleural effusion 01/28 CXR: Enlarged and now quite large left pleural effusion. Increasing interstitial congestion. Stable right pleural effusion 01/29 BCx 03/08 + VRE Shock- likely combination septic and metabolic derangements- SP Probable UTI -01/10 u/a wbc 60-80, nit neg, leuk +3; ucx Neg -Bcx NTD Probable PNA -01/12 CXR: No significant change in bilateral patchy pulmondary opacities, concerning for pneumonia versus edemaq. Small bilateral pleural effusions. -01/10 CXR: Bilateral interstitial and airspace infiltrates versus edema persists. sp cx MRSA (S Vancomycin, bactrim, tetracycline) COVID19 neg -01/04 rapid COVID PCR neg x1 influenza PCR neg CXR: Mild interstitial vascular prominence. No focal infiltrate or consolidation. 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 Etiology not demonstrated. Empty bladder with a Mathew catheter. 3 hypoechoic lesions within the pancreatic head and body, each measuring about 5 mm. Appearance nonspecific. Bilateral pleural effusions. Echogenic liver, consistent with hepatocellular disease. Surface likely nodularity raises concern for cirrhosis. Gallbladder sludge. Negative for dilated bile ducts. Probable nonobstructive left intrarenal calculi. Multiple hepatic cysts Acute on chronic encephalopathy -CT head: 1. Markedly limited, near nondiagnostic evaluation due to motion artifact. Grossly, age-related changes and small vessel disease of aging are noted. Again grossly, no acute intracranial pathology is detected. If there is a high degree of concern or if there is concern for subtle abnormalities, magnetic resonance imaging of the brain with diffusion-weighted sequences should be performed, due to the markedly limited nature of the current study. Close clinical correlation is necessary. HTN COPD DM2 paraplegia Dementia non verbal NH resident (elan mora) Plan: Cont daptomycin 21 for VRE bacteremia (02/03 CK =49) Cont Zosyn #7/7 for possible pna during Code blue event F/u repeat BCx 02/04, 01/31 F/u resp cx +SA sensi -01/18 SP vanco IV #7 -01/16 SP Cefepime #4 -01/13 SP ZOsyn #4 -01/06 SP Ceftriaxone #2 -01/04 Sp IV Vancomycin x1, Cefepime x1 -f/u cx -Monitor CBC/CMP, temperatures -Renal, cards f/u -aspiration precautions D/w RN Thank you for consulting [facility]. Will continue to follow along with you. Subjective Allergies: Coded Allergies: No Known Allergies (Unverified , 03/18/19) AF WBC 9.2 Bcx from 01/29 with VRE, repeat BCx 01/31 prior to abx for VRE are NTD Remains on vent Unable to examine pt today, pt away getting trach placed Plan for PEG tomorrow D/w RN Objective Last 24 Hour Vital Signs Date Time Temp Pulse Resp B/P (MAP) Pulse Ox O2 Delivery O2 Flow Rate FiO2 02/05/20 08:00 98.6 83 18 137/74 (95) 100 02/05/20 08:00 Mechanical Ventilator Mechanical Ventilator 02/05/20 07:59 30 02/05/20 07:00 84 22 119/75 (90) 100 02/05/20 06:00 85 17 118/69 (85) 100 02/05/20 05:00 93 22 126/77 (93) 100 02/05/20 04:00 Mechanical Ventilator Mechanical Ventilator 02/05/20 04:00 30 02/05/20 04:00 98.0 89 18 116/69 (85) 100 02/05/20 03:02 88 02/05/20 03:00 92 20 128/82 (97) 100 02/05/20 02:58 92 20 30 02/05/20 02:00 87 16 110/61 (77) 100 02/05/20 01:00 87 21 117/67 (84) 100 02/05/20 00:00 98.6 85 21 105/63 (77) 100 02/05/20 00:00 30 02/05/20 00:00 Mechanical Ventilator Mechanical Ventilator 02/04/20 23:17 91 19 30 02/04/20 23:16 87 02/04/20 23:00 86 21 120/69 (86) 100 02/04/20 22:00 82 21 132/70 (90) 100 02/04/20 21:00 92 19 118/66 (83) 100 02/04/20 20:00 30 02/04/20 20:00 98.9 88 19 120/71 (87) 100 02/04/20 20:00 Mechanical Ventilator Mechanical Ventilator 02/04/20 19:25 87 02/04/20 19:03 88 21 30 02/04/20 19:00 91 22 128/69 (88) 100 02/04/20 18:00 73 18 131/72 (91) 100 02/04/20 17:00 81 17 132/78 (96) 100 02/04/20 16:00 30 02/04/20 16:00 85 02/04/20 16:00 Mechanical Ventilator Mechanical Ventilator 02/04/20 16:00 98.0 84 18 119/98 (105) 100 02/04/20 15:21 93 19 30 02/04/20 15:00 86 17 122/68 (86) 100 02/04/20 14:00 91 16 117/67 (84) 100 02/04/20 13:00 87 15 96/49 (65) 100 02/04/20 12:00 Mechanical Ventilator Mechanical Ventilator 02/04/20 12:00 87 02/04/20 12:00 97.9 87 16 110/62 (78) 100 02/04/20 12:00 30 02/04/20 11:14 89 21 30 02/04/20 11:00 87 17 95/52 (66) 100 02/04/20 10:00 85 15 110/57 (74) 100 02/04/20 09:00 86 16 108/76 (87) 100 Height (Feet): 5 Height (Inches): 9.00 Weight (Pounds): 149 Gen: NAD in bed HEENT: NCAT CV: RRR Pulm: Rhonchi BL Abd: Soft, Non-distended Ext: No c/c/e Neuro: Not interactive Lines: R IJ HD cath placed 02/01 (exam from day prior) Microbiology Date/Time Source Procedure Growth Status 02/02/20 15:30 Stool Clostridium difficile Toxin Assay - Final Complete 02/02/20 15:30 Sputum Gram Stain - Final Resulted 02/02/20 15:30 Sputum Culture - Preliminary Proteus Mirabilis Staphylococcus Aureus Usual Respiratory Erin Resulted 02/02/20 14:22 Catheter Site Catheter Tip Culture - Preliminary NO GROWTH AFTER 24 HOURS Resulted Laboratory Tests Test 02/05/20 03:50 White Blood Count 9.2 K/UL (4.8-10.8) Red Blood Count 3.24 M/UL (4.70-6.10) L Hemoglobin 8.9 G/DL (14.2-18.0) L Hematocrit 26.0 % (42.0-52.0) L Mean Corpuscular Volume 80 FL (80-99) Mean Corpuscular Hemoglobin 27.6 PG (27.0-31.0) Mean Corpuscular Hemoglobin Concent 34.3 G/DL (32.0-36.0) Red Cell Distribution Width 21.6 % (11.6-14.8) H Platelet Count 288 K/UL (150-450) Mean Platelet Volume 6.7 FL (6.5-10.1) Neutrophils (%) (Auto) % (45.0-75.0) Lymphocytes (%) (Auto) % (20.0-45.0) Monocytes (%) (Auto) % (1.0-10.0) Eosinophils (%) (Auto) % (0.0-3.0) Basophils (%) (Auto) % (0.0-2.0) Neutrophils % (Manual) Pending Lymphocytes % (Manual) Pending Platelet Estimate Pending Platelet Morphology Pending Prothrombin Time 12.1 SEC (9.30-11.50) H Prothromb Time International Ratio 1.1 (0.9-1.1) Sodium Level 137 MMOL/L (136-145) Potassium Level 3.7 MMOL/L (3.5-5.1) Chloride Level 106 MMOL/L (98-107) Carbon Dioxide Level 20 MMOL/L (21-32) L Anion Gap 11 mmol/L (5-15) Blood Urea Nitrogen 11 mg/dL (7-18) Creatinine 0.8 MG/DL (0.55-1.30) Estimat Glomerular Filtration Rate > 60 mL/min (>60) Glucose Level 93 MG/DL (74-106) Calcium Level 7.4 MG/DL (8.5-10.1) L Phosphorus Level 2.7 MG/DL (2.5-4.9) Magnesium Level 1.8 MG/DL (1.8-2.4) Total Bilirubin 0.5 MG/DL (0.2-1.0) Direct Bilirubin 0.2 MG/DL (0.0-0.3) Aspartate Amino Transf (AST/SGOT) 50 U/L (15-37) H Alanine Aminotransferase (ALT/SGPT) 29 U/L (12-78) Alkaline Phosphatase 214 U/L (46-116) H Total Protein 5.6 G/DL (6.4-8.2) L Albumin 1.6 G/DL (3.4-5.0) L Current Medications Medications (Trade) Dose Ordered Sig/Jesse Route PRN Reason Start Time Stop Time Status Last Admin Dose Admin Acetaminophen (Tylenol) 650 mg Q4H PRN NG Temp >100.5, mild pain 02/03/20 22:15 03/04/20 22:14 02/03/20 23:04 Bisacodyl (Dulcolax) 10 mg DAILY PRN RECTAL Constipation 01/05/20 20:15 04/04/20 20:14 Chlorhexidine Gluconate (Navya-Hex 2%) 1 applic DAILY@2000 TOPIC 01/11/20 20:00 04/10/20 19:59 02/04/20 20:00 Daptomycin 700 mg/ Sodium Chloride 55 ml @ 110 mls/hr Q24H IV 02/04/20 15:00 02/11/20 14:59 02/04/20 17:34 Dextrose (Dextrose 50%) 25 ml Q30M PRN IV Hypoglycemia 01/05/20 20:15 04/04/20 20:14 01/24/20 23:53 Dextrose (Dextrose 50%) 50 ml Q30M PRN IV Hypoglycemia 01/05/20 20:15 04/04/20 20:14 Dextrose/Sodium Chloride 1,000 ml @ 60 mls/hr [id number] IV 01/24/20 13:30 02/23/20 13:29 02/05/20 06:11 Lansoprazole (Prevacid) 30 mg Q12HR NG 01/28/20 21:00 02/27/20 20:59 02/04/20 21:10 Linaclotide (Linzess) 290 mcg BEFORE BREAKFAST ORAL 01/10/20 06:30 04/09/20 06:29 02/05/20 05:54 Loperamide HCl (Imodium) 2 mg Q6H PRN NG Diarrhea 01/27/20 15:45 02/26/20 15:44 01/27/20 17:58 Metoclopramide HCl (Reglan) 10 mg EVERY 6 HOURS NG 01/19/20 12:00 02/18/20 11:59 02/05/20 05:54 Metoclopramide HCl (Reglan) 10 mg Q6H PRN IVP Nausea & Vomiting 01/16/20 13:00 02/15/20 12:59 Midodrine (Pro-Amatine) 10 mg Q8HR NG 01/20/20 22:00 04/13/20 17:59 02/05/20 05:54 Ondansetron HCl (Zofran) 4 mg Q6H PRN IVP Nausea & Vomiting 01/10/20 06:30 02/09/20 06:29 Piperacillin Sod/ Tazobactam Sod 3.375 gm/Sodium Chloride 110 ml @ 27.5 mls/hr EVERY 8 HOURS IVPB 01/30/20 14:00 02/09/20 23:59 02/05/20 05:54 Polyethylene Glycol (Miralax) 17 gm BEDTIME NG 01/11/20 21:00 02/08/20 20:59 01/29/20 20:39 Sennosides (Senokot) 8.6 mg QHS NG 01/11/20 21:00 02/11/20 20:59 02/04/20 21:10 Vitamin D (Vitamin D) 3,000 intlu DAILY GT 01/19/20 12:00 02/18/20 11:59 02/04/20 08:05 Nayana Ochoa M.D. Feb 05, 2020 08:40
--- NOTE | 2020-02-05 08:54 | Anethesia Preoperative Eval ---
Anesthesia Pre-op PMH/ROS General Date of Evaluation: Feb 05, 2020 Time of Evaluation: 05:47 Anesthesiologist: Vandana ASA Score: ASA 4 Mallampati Score Class I : Soft palate, uvula, fauces, pillars visible Class II: Soft palate, uvula, fauces visible Class III: Soft palate, base of uvula visible Class IV: Only hard plate visible Mallampati Classification: Class II Surgeon: Gregory Diagnosis: Vent Failure Surgical Procedure: Tracheostomy Anesthesia History: none Family History: no anesthesia problems Allergies: Coded Allergies: No Known Allergies (Unverified , 03/18/19) Medications: see eMAR Patient NPO?: Yes Past Medical History Cardiovascular: Reports: HTN, other - HL Pulmonary: Reports: COPD Neurologic/Psychiatric: Reports: dementia, other - Parkinsons, Bipolar, Schizo phrenia HEENT: Reports: cataract (L), cataract (R) Hematology/Immune: Reports: anemia, DVT Musculoskeletal/Integumentary: Reports: other - Weakness, Paralysis Anesthesia Pre-op Phys. Exam Physician Exam Last Vital Signs Date Time Temp Pulse Resp B/P (MAP) Pulse Ox O2 Delivery O2 Flow Rate FiO2 02/05/20 08:00 98.6 83 18 137/74 (95) 100 02/05/20 08:00 Mechanical Ventilator Mechanical Ventilator 02/05/20 07:59 30 01/29/20 18:59 2.0 Constitutional: NAD Neurologic: CN 2-12 intact Cardiovascular: RRR Respiratory: CTA Gastrointestinal: S/NT/ND Airway Exam Mallampati Score: Class III MO: limited Neck: Intubated ROM: limited Teeth: missing Anesthesia Pre-op A/P Labs Hematology Test 02/05/20 03:50 White Blood Count 9.2 K/UL (4.8-10.8) Red Blood Count 3.24 M/UL (4.70-6.10) L Hemoglobin 8.9 G/DL (14.2-18.0) L Hematocrit 26.0 % (42.0-52.0) L Mean Corpuscular Volume 80 FL (80-99) Mean Corpuscular Hemoglobin 27.6 PG (27.0-31.0) Mean Corpuscular Hemoglobin Concent 34.3 G/DL (32.0-36.0) Red Cell Distribution Width 21.6 % (11.6-14.8) H Platelet Count 288 K/UL (150-450) Mean Platelet Volume 6.7 FL (6.5-10.1) Neutrophils (%) (Auto) % (45.0-75.0) Lymphocytes (%) (Auto) % (20.0-45.0) Monocytes (%) (Auto) % (1.0-10.0) Eosinophils (%) (Auto) % (0.0-3.0) Basophils (%) (Auto) % (0.0-2.0) Neutrophils % (Manual) Pending Lymphocytes % (Manual) Pending Platelet Estimate Pending Platelet Morphology Pending Coagulation Test 02/05/20 03:50 Prothrombin Time 12.1 SEC (9.30-11.50) H Prothromb Time International Ratio 1.1 (0.9-1.1) Chemistry Test 02/05/20 03:50 Sodium Level 137 MMOL/L (136-145) Potassium Level 3.7 MMOL/L (3.5-5.1) Chloride Level 106 MMOL/L (98-107) Carbon Dioxide Level 20 MMOL/L (21-32) L Anion Gap 11 mmol/L (5-15) Blood Urea Nitrogen 11 mg/dL (7-18) Creatinine 0.8 MG/DL (0.55-1.30) Estimat Glomerular Filtration Rate > 60 mL/min (>60) Glucose Level 93 MG/DL (74-106) Calcium Level 7.4 MG/DL (8.5-10.1) L Phosphorus Level 2.7 MG/DL (2.5-4.9) Magnesium Level 1.8 MG/DL (1.8-2.4) Total Bilirubin 0.5 MG/DL (0.2-1.0) Direct Bilirubin 0.2 MG/DL (0.0-0.3) Aspartate Amino Transf (AST/SGOT) 50 U/L (15-37) H Alanine Aminotransferase (ALT/SGPT) 29 U/L (12-78) Alkaline Phosphatase 214 U/L (46-116) H Total Protein 5.6 G/DL (6.4-8.2) L Albumin 1.6 G/DL (3.4-5.0) L Risk Assessment & Plan Assessment: ASA 4 Plan: GA Status Change Before Surgery: No Pre-Antibiotics Drug: TBA Ross,Iggy MD Feb 05, 2020 08:54
[2020-02-05] MEDS: Vitamin D 1000 IU Tab GT SCH (09:08)
--- NOTE | 2020-02-05 09:46 | Nephrology Progress Note ---
Assessment/Plan Problem List: (1) ARF (acute renal failure) (2) Hypernatremia (3) Hypovolemic shock (4) Altered level of consciousness (5) Hypercalcemia (6) Hyperuricemia (7) Pelvic mass Assessment: Prostate cancer Assessment Acute renal failure Possible underlying chronic kidney failure Severe dehydration Hypernatremia indicative of severe water deficit Severe hyperuricemia, partly due to dehydration and renal failure Acute metabolic and toxic encephalopathy Mild, malnutrition Anemia Lactic acid, possible sepsis Hypercalcemia Plan February 04: Patient seen in ICU. Discussed with SELIN Hanks. Patient due for tracheostomy today. Stable from renal standpoint of view. February 03: Remains intubated on ventilator. Labs reviewed. Abnormal electrolytes addressed. Continue per consultants. February 02: Status quo. Labs reviewed. Abnormal electrolyte addressed. Discussed with SELIN Thomason. February 01: Remains intubated and on ventilator. Abnormal electrolytes addressed. Continue per consultants. January 31: Continues to be on ventilator. Labs reviewed. Abnormal electrolyte addressed. Continue per consultants. January 30: Patient remains intubated. On no pressors. Abnormal electrolyte addressed. Discussed with RN. Apparently due for PEG insertion tomorrow. Continue per consultants. January 29: Patient was coded late last night. Now in ICU intubated. Was on pressors for a short period of time. Is off pressors now. Labs reviewed. Abnormal electrolyte addressed. Continue per consultants. January 28: Labs reviewed. Abnormal electrolyte addressed. Continue per consultants. January 27: Labs reviewed. Abnormal electrolyte addressed. Low potassium low phosphorus and low magnesium replaced. Continue per consultants. January 26: No labs drawn today. Status quo. Continue per consultants. Will check renal parameters tomorrow. January 25: Renal parameters stable. On Venturi mask. Continue per current management. January 24: Renal parameters stable. On Venturi mask. Discussed with RN. Due for PEG insertion today. January 23: Stable from renal standpoint of view. On Venturi mask. Low magnesium addressed. Continue per consultants. January 22: Patient off pressors. Patient extubated. Labs reviewed. Renal parameters are stable. January 21: Patient on low-dose pressors. Remains hypotensive. Renal parameters stable. Weaning trial in process. Mental status remains poor. January 20: Patient in ICU. Intubated. Full code. Has advanced prostate cancer. On IV Lasix drip. Low magnesium and low phosphorus and low potassium noted and addressed. Continue per consultants. January 19: Patient in ICU. Intubated. Was coded yesterday. Labs reviewed. Medication list reviewed and adjusted. Continue per consultants. Patient full code. Prognosis poor. PSA over 2700 January 18: Labs reviewed. IV fluid discontinued. IV calcium dose decreased. Midodrine dose decreased. Reglan and Protonix changed to GT route. Vitamin D initiated. Continue to monitor renal parameters and calcium level. January 17: Labs reviewed. Abnormal electrolyte addressed. Continue per consultants. January 16: Patient now in telemetry. Labs pending. Continue to monitor renal parameters. Continue per consultants. January 15: Still in ICU. Doing well post extubation. Renal parameters improving. Not requiring any more dialysis treatment after the first dialysis treatment. Medications reviewed. Continue per consultants. January 14: Remains in ICU. Tolerating extubation. Labs reviewed. Abnormal electrolytes addressed. Serum creatinine lowering. Continue per current management. Stop Phos binders. Increase calcium IV. January 13: In ICU. Now extubated. Only dialyzed once. Urine output maintained. Serum creatinine down to 2.5. Patient has NG tube. Continue to monitor renal parameters. Continue per consultants. Abnormal electrolytes addressed. January 12: Remains in ICU. Intubated. Transfused yesterday. Abnormal electrolytes addressed. Dialyzed once January 10. Serum creatinine stable. Will adjust IV fluid. Monitor renal parameters. Dialysis as needed. Calcium gluconate IV ordered. Ionized calcium level ordered with tomorrow's labs. January 11: Patient in ICU. Intubated. On Levophed. Hemoglobin low. Due for transfusion. Electrolyte abnormalities noted and addressed. Patient was dialyzed yesterday. Will check lab tomorrow. Dialysis as needed. Discussed with SELIN Srivastava. January 10: Patient is doing poorly. Blood pressure low. ABG abnormal with metabolic acidosis. IV sodium bicarb given. Serum creatinine reno. Patient has acute renal failure. Nontunneled dialysis catheter replacement ordered.. P atient need life saving dialysis treatment SRINIVAS. January 09: Labs reviewed. IV D5 and a half with sodium bicarb initiated. Serum creatinine higher. Continue to monitor renal parameters. NG feeding was changed to Nepro. Patient remains full code. Poor prognosis. January 08: Labs reviewed. IV D5W discontinued. 500 cc 3% saline ordered. NG tube for feeding and for medications. Allopurinol dose increased. Continue to monitor renal parameters serum calcium and phosphorus. January 07: Labs reviewed. Serum calcium remains elevated. Uric acid still elevated. Will give pamidronate 60 mg IV piggyback once for hypercalcemia. Continue to monitor renal parameters. Continue D5W 150 cc an hour. Start Bicitra 30 cc p.o. every 6 hours. Add allopurinol D5W IV hydration Albumin bolus N.p.o. until able to take p.o. Antibiotics Monitor renal parameters monitor calcium, monitor uric acid Subjective ROS Limited/Unobtainable: Yes Objective Objective Last 24 Hour Vital Signs Date Time Temp Pulse Resp B/P (MAP) Pulse Ox O2 Delivery O2 Flow Rate FiO2 02/05/20 09:00 88 17 113/68 (83) 100 02/05/20 08:00 98.6 83 18 137/74 (95) 100 02/05/20 08:00 Mechanical Ventilator Mechanical Ventilator 02/05/20 08:00 71 02/05/20 07:59 30 02/05/20 07:18 81 17 30 02/05/20 07:00 84 22 119/75 (90) 100 02/05/20 06:00 85 17 118/69 (85) 100 02/05/20 05:00 93 22 126/77 (93) 100 02/05/20 04:00 Mechanical Ventilator Mechanical Ventilator 02/05/20 04:00 30 02/05/20 04:00 98.0 89 18 116/69 (85) 100 02/05/20 03:02 88 02/05/20 03:00 92 20 128/82 (97) 100 02/05/20 02:58 92 20 30 02/05/20 02:00 87 16 110/61 (77) 100 02/05/20 01:00 87 21 117/67 (84) 100 02/05/20 00:00 98.6 85 21 105/63 (77) 100 02/05/20 00:00 30 02/05/20 00:00 Mechanical Ventilator Mechanical Ventilator 02/04/20 23:17 91 19 30 02/04/20 23:16 87 02/04/20 23:00 86 21 120/69 (86) 100 02/04/20 22:00 82 21 132/70 (90) 100 02/04/20 21:00 92 19 118/66 (83) 100 02/04/20 20:00 30 02/04/20 20:00 98.9 88 19 120/71 (87) 100 02/04/20 20:00 Mechanical Ventilator Mechanical Ventilator 02/04/20 19:25 87 02/04/20 19:03 88 21 30 02/04/20 19:00 91 22 128/69 (88) 100 02/04/20 18:00 73 18 131/72 (91) 100 02/04/20 17:00 81 17 132/78 (96) 100 02/04/20 16:00 30 02/04/20 16:00 85 02/04/20 16:00 Mechanical Ventilator Mechanical Ventilator 02/04/20 16:00 98.0 84 18 119/98 (105) 100 02/04/20 15:21 93 19 30 02/04/20 15:00 86 17 122/68 (86) 100 02/04/20 14:00 91 16 117/67 (84) 100 02/04/20 13:00 87 15 96/49 (65) 100 02/04/20 12:00 Mechanical Ventilator Mechanical Ventilator 02/04/20 12:00 87 02/04/20 12:00 97.9 87 16 110/62 (78) 100 02/04/20 12:00 30 02/04/20 11:14 89 21 30 02/04/20 11:00 87 17 95/52 (66) 100 02/04/20 10:00 85 15 110/57 (74) 100 Intake and Output 02/04/20 02/05/20 19:00 07:00 Intake Total 2335.0 ml 949.26 ml Output Total 1785 ml 945 ml Balance 550.0 ml 4.26 ml Free Water 30 ml IV Total 1560.0 ml 729.26 ml Tube Feeding 495 ml 220 ml Blood Product 250 ml Output Urine Total 885 ml 645 ml Stool Total 900 ml 300 ml Current Medications Medications (Trade) Dose Ordered Sig/Jesse Route PRN Reason Start Time Stop Time Status Last Admin Dose Admin Acetaminophen (Tylenol) 650 mg Q4H PRN NG Temp >100.5, mild pain 02/03/20 22:15 03/04/20 22:14 02/03/20 23:04 Bisacodyl (Dulcolax) 10 mg DAILY PRN RECTAL Constipation 01/05/20 20:15 04/04/20 20:14 Chlorhexidine Gluconate (Navya-Hex 2%) 1 applic DAILY@2000 TOPIC 01/11/20 20:00 04/10/20 19:59 02/04/20 20:00 Daptomycin 700 mg/ Sodium Chloride 55 ml @ 110 mls/hr Q24H IV 02/04/20 15:00 02/11/20 14:59 02/04/20 17:34 Dextrose (Dextrose 50%) 25 ml Q30M PRN IV Hypoglycemia 01/05/20 20:15 04/04/20 20:14 01/24/20 23:53 Dextrose (Dextrose 50%) 50 ml Q30M PRN IV Hypoglycemia 01/05/20 20:15 04/04/20 20:14 Dextrose/Sodium Chloride 1,000 ml @ 60 mls/hr [id number] IV 01/24/20 13:30 02/23/20 13:29 02/05/20 06:11 Lansoprazole (Prevacid) 30 mg Q12HR NG 01/28/20 21:00 02/27/20 20:59 02/05/20 09:08 Linaclotide (Linzess) 290 mcg BEFORE BREAKFAST ORAL 01/10/20 06:30 04/09/20 06:29 02/05/20 05:54 Loperamide HCl (Imodium) 2 mg Q6H PRN NG Diarrhea 01/27/20 15:45 02/26/20 15:44 01/27/20 17:58 Metoclopramide HCl (Reglan) 10 mg EVERY 6 HOURS NG 01/19/20 12:00 02/18/20 11:59 02/05/20 05:54 Metoclopramide HCl (Reglan) 10 mg Q6H PRN IVP Nausea & Vomiting 01/16/20 13:00 02/15/20 12:59 Midodrine (Pro-Amatine) 10 mg Q8HR NG 01/20/20 22:00 04/13/20 17:59 02/05/20 05:54 Ondansetron HCl (Zofran) 4 mg Q6H PRN IVP Nausea & Vomiting 01/10/20 06:30 02/09/20 06:29 Piperacillin Sod/ Tazobactam Sod 3.375 gm/Sodium Chloride 110 ml @ 27.5 mls/hr EVERY 8 HOURS IVPB 01/30/20 14:00 02/09/20 23:59 02/05/20 05:54 Polyethylene Glycol (Miralax) 17 gm BEDTIME NG 01/11/20 21:00 02/08/20 20:59 01/29/20 20:39 Sennosides (Senokot) 8.6 mg QHS NG 01/11/20 21:00 02/11/20 20:59 02/04/20 21:10 Vitamin D (Vitamin D) 3,000 intlu DAILY GT 01/19/20 12:00 02/18/20 11:59 02/05/20 09:08 Laboratory Tests 02/05/20 03:50: White Blood Count 9.2, Red Blood Count 3.24L, Hemoglobin 8.9L, Hematocrit 26.0L, Mean Corpuscular Volume 80, Mean Corpuscular Hemoglobin 27.6, Mean Corpuscular Hemoglobin Concent 34.3, Red Cell Distribution Width 21.6H, Platelet Count 288, Mean Platelet Volume 6.7, Neutrophils (%) (Auto) , Lymphocytes (%) (Auto) , Monocytes (%) (Auto) , Eosinophils (%) (Auto) , Basophils (%) (Auto) , Neutrophils % (Manual) [Pending], Lymphocytes % (Manual) [Pending], Platelet Estimate [Pending], Platelet Morphology [Pending], Prothrombin Time 12.1H, Prothromb Time International Ratio 1.1, Sodium Level 137, Potassium Level 3.7, Chloride Level 106, Carbon Dioxide Level 20L, Anion Gap 11, Blood Urea Nitrogen 11, Creatinine 0.8, Estimat Glomerular Filtration Rate > 60, Glucose Level 93, Calcium Level 7.4L, Phosphorus Level 2.7, Magnesium Level 1.8, Total Bilirubin 0.5, Direct Bilirubin 0.2, Aspartate Amino Transf (AST/SGOT) 50H, Alanine Aminotransferase (ALT/SGPT) 29, Alkaline Phosphatase 214H, Total Protein 5.6L, Albumin 1.6L Height (Feet): 5 Height (Inches): 9.00 Weight (Pounds): 149 General Appearance: no apparent distress EENT: other - Intubated on ventilator Cardiovascular: normal rate Respiratory/Chest: decreased breath sounds Abdomen: distended Dhiraj Biswas MD Feb 05, 2020 09:46
--- NOTE | 2020-02-05 10:28 | General Progress Note ---
Subjective ROS Limited/Unobtainable: No Allergies: Coded Allergies: No Known Allergies (Unverified , 03/18/19) Objective Last 24 Hour Vital Signs Date Time Temp Pulse Resp B/P (MAP) Pulse Ox O2 Delivery O2 Flow Rate FiO2 02/05/20 10:00 79 16 91/56 (68) 100 02/05/20 10:00 88 17 113/68 (83) 100 02/05/20 09:00 88 17 113/68 (83) 100 02/05/20 08:00 98.6 83 18 137/74 (95) 100 02/05/20 08:00 Mechanical Ventilator Mechanical Ventilator 02/05/20 08:00 71 02/05/20 07:59 30 02/05/20 07:18 81 17 30 02/05/20 07:00 84 22 119/75 (90) 100 02/05/20 06:00 85 17 118/69 (85) 100 02/05/20 05:00 93 22 126/77 (93) 100 02/05/20 04:00 Mechanical Ventilator Mechanical Ventilator 02/05/20 04:00 30 02/05/20 04:00 98.0 89 18 116/69 (85) 100 02/05/20 03:02 88 02/05/20 03:00 92 20 128/82 (97) 100 02/05/20 02:58 92 20 30 02/05/20 02:00 87 16 110/61 (77) 100 02/05/20 01:00 87 21 117/67 (84) 100 02/05/20 00:00 98.6 85 21 105/63 (77) 100 02/05/20 00:00 30 02/05/20 00:00 Mechanical Ventilator Mechanical Ventilator 02/04/20 23:17 91 19 30 02/04/20 23:16 87 02/04/20 23:00 86 21 120/69 (86) 100 02/04/20 22:00 82 21 132/70 (90) 100 02/04/20 21:00 92 19 118/66 (83) 100 02/04/20 20:00 30 02/04/20 20:00 98.9 88 19 120/71 (87) 100 02/04/20 20:00 Mechanical Ventilator Mechanical Ventilator 02/04/20 19:25 87 02/04/20 19:03 88 21 30 02/04/20 19:00 91 22 128/69 (88) 100 02/04/20 18:00 73 18 131/72 (91) 100 02/04/20 17:00 81 17 132/78 (96) 100 02/04/20 16:00 30 02/04/20 16:00 85 02/04/20 16:00 Mechanical Ventilator Mechanical Ventilator 02/04/20 16:00 98.0 84 18 119/98 (105) 100 02/04/20 15:21 93 19 30 02/04/20 15:00 86 17 122/68 (86) 100 02/04/20 14:00 91 16 117/67 (84) 100 02/04/20 13:00 87 15 96/49 (65) 100 02/04/20 12:00 Mechanical Ventilator Mechanical Ventilator 02/04/20 12:00 87 02/04/20 12:00 97.9 87 16 110/62 (78) 100 02/04/20 12:00 30 02/04/20 11:14 89 21 30 02/04/20 11:00 87 17 95/52 (66) 100 Intake and Output 02/04/20 02/05/20 19:00 07:00 Intake Total 2335.0 ml 949.26 ml Output Total 1785 ml 945 ml Balance 550.0 ml 4.26 ml Free Water 30 ml IV Total 1560.0 ml 729.26 ml Tube Feeding 495 ml 220 ml Blood Product 250 ml Output Urine Total 885 ml 645 ml Stool Total 900 ml 300 ml Laboratory Tests 02/05/20 03:50: White Blood Count 9.2, Red Blood Count 3.24L, Hemoglobin 8.9L, Hematocrit 26.0L, Mean Corpuscular Volume 80, Mean Corpuscular Hemoglobin 27.6, Mean Corpuscular Hemoglobin Concent 34.3, Red Cell Distribution Width 21.6H, Platelet Count 288, Mean Platelet Volume 6.7, Neutrophils (%) (Auto) , Lymphocytes (%) (Auto) , Monocytes (%) (Auto) , Eosinophils (%) (Auto) , Basophils (%) (Auto) , Differential Total Cells Counted 100, Neutrophils % (Manual) 87H, Lymphocytes % (Manual) 3L, Monocytes % (Manual) 8, Eosinophils % (Manual) 0, Basophils % ( Manual) 0, Band Neutrophils 2, Platelet Estimate Adequate, Platelet Morphology Normal, Anisocytosis 2+, Prothrombin Time 12.1H, Prothromb Time International Ratio 1.1, Sodium Level 137, Potassium Level 3.7, Chloride Level 106, Carbon Dioxide Level 20L, Anion Gap 11, Blood Urea Nitrogen 11, Creatinine 0.8, Estimat Glomerular Filtration Rate > 60, Glucose Level 93, Calcium Level 7.4L, Phosphorus Level 2.7, Magnesium Level 1.8, Total Bilirubin 0.5, Direct Bilirubin 0.2, Aspartate Amino Transf (AST/SGOT) 50H, Alanine Aminotransferase (ALT/SGPT) 29, Alkaline Phosphatase 214H, Total Protein 5.6L, Albumin 1.6L Height (Feet): 5 Height (Inches): 9.00 Weight (Pounds): 149 General Appearance: no apparent distress EENT: normal ENT inspection Neck: supple Cardiovascular: normal rate Respiratory/Chest: decreased breath sounds Abdomen: normal bowel sounds, non tender, soft Extremities: non-tender Assessment/Plan Status: unchanged Assessment/Plan: AMS dementia Anemia DM hyper CA elevated AST low albumin COPD RI HTN metastatic prostate CA intubated in the icu chart reviewed going for trach plan PEG for tomorrow Paulino Bueno MD Feb 05, 2020 10:28
[2020-02-05] MEDS ORDERED: Lidocaine 1%/ 10mg/ml/EPI 0.01mg/ml 20ml INJ ONE ×2 (10:30→11:39)
--- NOTE | 2020-02-05 10:49 | Anethesia Preoperative Eval ---
Anesthesia Pre-op PMH/ROS General Date of Evaluation: Feb 05, 2020 Time of Evaluation: 10:47 Anesthesiologist: sarah ASA Score: ASA 4 Mallampati Score Class I : Soft palate, uvula, fauces, pillars visible Class II: Soft palate, uvula, fauces visible Class III: Soft palate, base of uvula visible Class IV: Only hard plate visible Mallampati Classification: Class II Surgeon: Gregory Diagnosis: Resp Failure Surgical Procedure: Tracheostomy Anesthesia History: none Family History: no anesthesia problems Allergies: Coded Allergies: No Known Allergies (Unverified , 03/18/19) Patient NPO?: Yes NPO Date: Feb 05, 2020 NPO Time: 00:01 Past Medical History Cardiovascular: Reports: HTN, CAD, arrhythmia, other - off pressors; Pulmonary: Reports: other - intubated and failure to wean; Denies: asthma, COPD, DEYSI Gastrointestinal/Genitourinary: Reports: GERD, CRI; Denies: ESRD, other Neurologic/Psychiatric: Reports: dementia; Denies: CVA, depression/anxiety, TIA, other Endocrine: Denies: DM, hypothyroidism, steroids, other HEENT: Denies: cataract (L), cataract (R), glaucoma, TUNUNAK (L), TUNUNAK (R), other Hematology/Immune: Reports: anemia; Denies: DVT, bleeding disorder, other Musculoskeletal/Integumentary: Reports: other - Shock; Denies: OA, RA, DJD, DDD, edema PMH Narrative: (1) ARF (acute renal failure) (2) Hypernatremia (3) Hypovolemic shock (4) Altered level of consciousness (5) Hypercalcemia (6) Hyperuricemia (7) Pelvic mass Anesthesia Pre-op Phys. Exam Physician Exam Last Vital Signs Date Time Temp Pulse Resp B/P (MAP) Pulse Ox O2 Delivery O2 Flow Rate FiO2 02/05/20 10:00 79 16 91/56 (68) 100 02/05/20 08:00 98.6 02/05/20 08:00 Mechanical Ventilator Mechanical Ventilator 02/05/20 07:59 30 01/29/20 18:59 2.0 Constitutional: other - Failure to wean from mech ventilation; Neurologic: other - Not oriented Respiratory: other - Mech ventilated in ICU; Resp Failure Airway Exam Mallampati Classification na; orally intubated Mallampati Score: Class III Anesthesia Pre-op A/P Labs Hematology Test 02/05/20 03:50 White Blood Count 9.2 K/UL (4.8-10.8) Red Blood Count 3.24 M/UL (4.70-6.10) L Hemoglobin 8.9 G/DL (14.2-18.0) L Hematocrit 26.0 % (42.0-52.0) L Mean Corpuscular Volume 80 FL (80-99) Mean Corpuscular Hemoglobin 27.6 PG (27.0-31.0) Mean Corpuscular Hemoglobin Concent 34.3 G/DL (32.0-36.0) Red Cell Distribution Width 21.6 % (11.6-14.8) H Platelet Count 288 K/UL (150-450) Mean Platelet Volume 6.7 FL (6.5-10.1) Neutrophils (%) (Auto) % (45.0-75.0) Lymphocytes (%) (Auto) % (20.0-45.0) Monocytes (%) (Auto) % (1.0-10.0) Eosinophils (%) (Auto) % (0.0-3.0) Basophils (%) (Auto) % (0.0-2.0) Differential Total Cells Counted 100 Neutrophils % (Manual) 87 % (45-75) H Lymphocytes % (Manual) 3 % (20-45) L Monocytes % (Manual) 8 % (1-10) Eosinophils % (Manual) 0 % (0-3) Basophils % (Manual) 0 % (0-2) Band Neutrophils 2 % (0-8) Platelet Estimate Adequate Platelet Morphology Normal Anisocytosis 2+ Coagulation Test 02/05/20 03:50 Prothrombin Time 12.1 SEC (9.30-11.50) H Prothromb Time International Ratio 1.1 (0.9-1.1) Chemistry Test 02/05/20 03:50 Sodium Level 137 MMOL/L (136-145) Potassium Level 3.7 MMOL/L (3.5-5.1) Chloride Level 106 MMOL/L (98-107) Carbon Dioxide Level 20 MMOL/L (21-32) L Anion Gap 11 mmol/L (5-15) Blood Urea Nitrogen 11 mg/dL (7-18) Creatinine 0.8 MG/DL (0.55-1.30) Estimat Glomerular Filtration Rate > 60 mL/min (>60) Glucose Level 93 MG/DL (74-106) Calcium Level 7.4 MG/DL (8.5-10.1) L Phosphorus Level 2.7 MG/DL (2.5-4.9) Magnesium Level 1.8 MG/DL (1.8-2.4) Total Bilirubin 0.5 MG/DL (0.2-1.0) Direct Bilirubin 0.2 MG/DL (0.0-0.3) Aspartate Amino Transf (AST/SGOT) 50 U/L (15-37) H Alanine Aminotransferase (ALT/SGPT) 29 U/L (12-78) Alkaline Phosphatase 214 U/L (46-116) H Total Protein 5.6 G/DL (6.4-8.2) L Albumin 1.6 G/DL (3.4-5.0) L Risk Assessment & Plan Plan: Alessandra Ac CRNA Feb 05, 2020 10:49
[2020-02-05] MEDS ORDERED: Rocuronium Bromide 50mg/5ml Inj IV ONE (11:16)
[2020-02-05] MEDS ORDERED: NS Irrig 1000ml ONE (11:30)
[2020-02-05] MEDS ORDERED: Sterile Water Irrig 1000ml IRRIG ONE (11:30)
[2020-02-05] MEDS ORDERED: LR 1000ml ONE (11:30)
--- NOTE | 2020-02-05 12:12 | Cardiac Electrophysiology PN ---
Assessment/Plan Assessment/Plan 1. Altered mental status due to severe dehydration in view of sodium of 160 and acute renal failure. On IV fluids and IV antibiotics. Ruled out for MS. 2. Septic shock, off levophed and on iv Abx On Midodrine 10 tid 3. History of CVA, off Plavix in view of hematuria. 4. Respiratory failure, Extubated 01/22 and reintubated 01/29/20 Tracheostomy scheduled for today 5. Diabetes. 6. Acute renal failure. Cr 4.2. Had HD once only on 01/11/20. No more HD needed and Cr 1.2 7. Hematuria 8. Anemia with Hb 5.8 and coffee ground emesis. FU Dr Bueno 9. Shock liver with increase AST>2000 10. Metastatic prostate cancer -- w psa 2741 with a Large pelvic mass involving the prostate, bladder, seminal vesicles, presumably representing prostatic malignancy Severe right and moderate left hydronephrosis and bilateral hydroureter, due to ureteral obstruction by the above mass 11. Dysphagia, NGT feeding. PEG pending after Trach KARLO RN and Dr Biswas Subjective Subjective Coded 01/19 for respiratory failure followed by bradycardia and PEA. Extubated 01/23/20. Had [employer] and then had asystole and was reintubated PEG placement postponed to after tracheostomy today Mega removed from Right FV and placed in Right IJ Objective Last 24 Hour Vital Signs Date Time Temp Pulse Resp B/P (MAP) Pulse Ox O2 Delivery O2 Flow Rate FiO2 02/05/20 11:00 79 18 30 02/05/20 11:00 81 18 94/59 (71) 100 02/05/20 10:00 79 16 91/56 (68) 100 02/05/20 10:00 88 17 113/68 (83) 100 02/05/20 09:00 88 17 113/68 (83) 100 02/05/20 08:00 98.6 83 18 137/74 (95) 100 02/05/20 08:00 Mechanical Ventilator Mechanical Ventilator 02/05/20 08:00 71 02/05/20 07:59 30 02/05/20 07:18 81 17 30 02/05/20 07:00 84 22 119/75 (90) 100 02/05/20 06:00 85 17 118/69 (85) 100 02/05/20 05:00 93 22 126/77 (93) 100 02/05/20 04:00 Mechanical Ventilator Mechanical Ventilator 02/05/20 04:00 30 02/05/20 04:00 98.0 89 18 116/69 (85) 100 02/05/20 03:02 88 02/05/20 03:00 92 20 128/82 (97) 100 02/05/20 02:58 92 20 30 02/05/20 02:00 87 16 110/61 (77) 100 02/05/20 01:00 87 21 117/67 (84) 100 02/05/20 00:00 98.6 85 21 105/63 (77) 100 02/05/20 00:00 30 02/05/20 00:00 Mechanical Ventilator Mechanical Ventilator 02/04/20 23:17 91 19 30 02/04/20 23:16 87 02/04/20 23:00 86 21 120/69 (86) 100 02/04/20 22:00 82 21 132/70 (90) 100 02/04/20 21:00 92 19 118/66 (83) 100 02/04/20 20:00 30 02/04/20 20:00 98.9 88 19 120/71 (87) 100 02/04/20 20:00 Mechanical Ventilator Mechanical Ventilator 02/04/20 19:25 87 02/04/20 19:03 88 21 30 02/04/20 19:00 91 22 128/69 (88) 100 02/04/20 18:00 73 18 131/72 (91) 100 02/04/20 17:00 81 17 132/78 (96) 100 02/04/20 16:00 30 02/04/20 16:00 85 02/04/20 16:00 Mechanical Ventilator Mechanical Ventilator 02/04/20 16:00 98.0 84 18 119/98 (105) 100 02/04/20 15:21 93 19 30 02/04/20 15:00 86 17 122/68 (86) 100 02/04/20 14:00 91 16 117/67 (84) 100 02/04/20 13:00 87 15 96/49 (65) 100 Intake and Output 02/04/20 02/05/20 19:00 07:00 Intake Total 2335.0 ml 949.26 ml Output Total 1785 ml 945 ml Balance 550.0 ml 4.26 ml Free Water 30 ml IV Total 1560.0 ml 729.26 ml Tube Feeding 495 ml 220 ml Blood Product 250 ml Output Urine Total 885 ml 645 ml Stool Total 900 ml 300 ml Laboratory Tests Test 02/05/20 03:50 White Blood Count 9.2 K/UL (4.8-10.8) Red Blood Count 3.24 M/UL (4.70-6.10) L Hemoglobin 8.9 G/DL (14.2-18.0) L Hematocrit 26.0 % (42.0-52.0) L Mean Corpuscular Volume 80 FL (80-99) Mean Corpuscular Hemoglobin 27.6 PG (27.0-31.0) Mean Corpuscular Hemoglobin Concent 34.3 G/DL (32.0-36.0) Red Cell Distribution Width 21.6 % (11.6-14.8) H Platelet Count 288 K/UL (150-450) Mean Platelet Volume 6.7 FL (6.5-10.1) Neutrophils (%) (Auto) % (45.0-75.0) Lymphocytes (%) (Auto) % (20.0-45.0) Monocytes (%) (Auto) % (1.0-10.0) Eosinophils (%) (Auto) % (0.0-3.0) Basophils (%) (Auto) % (0.0-2.0) Differential Total Cells Counted 100 Neutrophils % (Manual) 87 % (45-75) H Lymphocytes % (Manual) 3 % (20-45) L Monocytes % (Manual) 8 % (1-10) Eosinophils % (Manual) 0 % (0-3) Basophils % (Manual) 0 % (0-2) Band Neutrophils 2 % (0-8) Platelet Estimate Adequate Platelet Morphology Normal Anisocytosis 2+ Prothrombin Time 12.1 SEC (9.30-11.50) H Prothromb Time International Ratio 1.1 (0.9-1.1) Sodium Level 137 MMOL/L (136-145) Potassium Level 3.7 MMOL/L (3.5-5.1) Chloride Level 106 MMOL/L (98-107) Carbon Dioxide Level 20 MMOL/L (21-32) L Anion Gap 11 mmol/L (5-15) Blood Urea Nitrogen 11 mg/dL (7-18) Creatinine 0.8 MG/DL (0.55-1.30) Estimat Glomerular Filtration Rate > 60 mL/min (>60) Glucose Level 93 MG/DL (74-106) Calcium Level 7.4 MG/DL (8.5-10.1) L Phosphorus Level 2.7 MG/DL (2.5-4.9) Magnesium Level 1.8 MG/DL (1.8-2.4) Total Bilirubin 0.5 MG/DL (0.2-1.0) Direct Bilirubin 0.2 MG/DL (0.0-0.3) Aspartate Amino Transf (AST/SGOT) 50 U/L (15-37) H Alanine Aminotransferase (ALT/SGPT) 29 U/L (12-78) Alkaline Phosphatase 214 U/L (46-116) H Total Protein 5.6 G/DL (6.4-8.2) L Albumin 1.6 G/DL (3.4-5.0) L Microbiology Date/Time Source Procedure Growth Status 02/02/20 15:30 Stool Clostridium difficile Toxin Assay - Final Complete 02/02/20 15:30 Sputum Gram Stain - Final Resulted 02/02/20 15:30 Sputum Culture - Preliminary Proteus Mirabilis Staphylococcus Aureus Usual Respiratory Erin Resulted 02/02/20 14:22 Catheter Site Catheter Tip Culture - Preliminary YEAST Gram Positive Cocci Resulted Objective HEAD AND NECK: NGT in place. Orally intubated LUNGS: Coarse rhonchi. CARDIOVASCULAR: Regular S1 and S2 with no gallop. ABDOMEN: Soft. EXTREMITIES: No pitting edema. Kevin Lopez MD Feb 05, 2020 12:12
--- NOTE | 2020-02-05 12:25 | Brief Operative Note ---
Immediate Post Operative Note Operative Note Pre-op Diagnosis: Sepsis, renal insufficiency respiratory insufficiency Procedure: Tracheostomy Post-op Diagnosis: same as pre-op Surgeon: Lázaro Jenkins Anesthesiologist: Alessandra goldman Anesthesia: general Specimen: none Complications: none Condition: stable Fluids: See records Estimated Blood Loss: minimal Implant(s) used?: Lázaro Lucio Feb 05, 2020 12:25
--- NOTE | 2020-02-05 12:31 | Immediate Post-Op Evaluation ---
Immediate Post-Op Evalulation Immediate Post-Op Evalulation Procedure: Tracheostomy Date of Evaluation: Feb 05, 2020 Time of Evaluation: 12:25 IV Fluids: 200 Blood Pressure Systolic: 125 Blood Pressure Diastolic: 80 Pulse Rate: 101 Respiratory Rate: 12 O2 Sat by Pulse Oximetry: 100 Nausea: No Vomiting: No Complications none Patient Status: reacts, patent - 8.0 Shiley, ventilated - AC 500 Rate 12 30% peep 5 Hydration Status: adequate Drug: none CasandrariAlessandra vargas CRNA Feb 05, 2020 12:30
--- NOTE | 2020-02-05 13:14 | General Progress Note ---
Subjective Constitutional: Reports: weakness Allergies: Coded Allergies: No Known Allergies (Unverified , 03/18/19) All Systems: reviewed and negative except above Subjective trach vent altered ng in icu Objective Last 24 Hour Vital Signs Date Time Temp Pulse Resp B/P (MAP) Pulse Ox O2 Delivery O2 Flow Rate FiO2 02/05/20 13:00 92 21 134/70 (91) 96 02/05/20 12:30 101 12 100 02/05/20 12:20 97 13 125/68 (87) 100 02/05/20 12:20 108 02/05/20 11:00 79 18 30 02/05/20 11:00 81 18 94/59 (71) 100 02/05/20 10:00 79 16 91/56 (68) 100 02/05/20 10:00 88 17 113/68 (83) 100 02/05/20 09:00 88 17 113/68 (83) 100 02/05/20 08:00 98.6 83 18 137/74 (95) 100 02/05/20 08:00 Mechanical Ventilator Mechanical Ventilator 02/05/20 08:00 71 02/05/20 07:59 30 02/05/20 07:18 81 17 30 02/05/20 07:00 84 22 119/75 (90) 100 02/05/20 06:00 85 17 118/69 (85) 100 02/05/20 05:00 93 22 126/77 (93) 100 02/05/20 04:00 Mechanical Ventilator Mechanical Ventilator 02/05/20 04:00 30 02/05/20 04:00 98.0 89 18 116/69 (85) 100 02/05/20 03:02 88 02/05/20 03:00 92 20 128/82 (97) 100 02/05/20 02:58 92 20 30 02/05/20 02:00 87 16 110/61 (77) 100 02/05/20 01:00 87 21 117/67 (84) 100 02/05/20 00:00 98.6 85 21 105/63 (77) 100 02/05/20 00:00 30 02/05/20 00:00 Mechanical Ventilator Mechanical Ventilator 02/04/20 23:17 91 19 30 02/04/20 23:16 87 02/04/20 23:00 86 21 120/69 (86) 100 02/04/20 22:00 82 21 132/70 (90) 100 02/04/20 21:00 92 19 118/66 (83) 100 02/04/20 20:00 30 02/04/20 20:00 98.9 88 19 120/71 (87) 100 02/04/20 20:00 Mechanical Ventilator Mechanical Ventilator 02/04/20 19:25 87 02/04/20 19:03 88 21 30 02/04/20 19:00 91 22 128/69 (88) 100 02/04/20 18:00 73 18 131/72 (91) 100 02/04/20 17:00 81 17 132/78 (96) 100 02/04/20 16:00 30 02/04/20 16:00 85 02/04/20 16:00 Mechanical Ventilator Mechanical Ventilator 02/04/20 16:00 98.0 84 18 119/98 (105) 100 02/04/20 15:21 93 19 30 02/04/20 15:00 86 17 122/68 (86) 100 02/04/20 14:00 91 16 117/67 (84) 100 Intake and Output 02/04/20 02/05/20 19:00 07:00 Intake Total 2335.0 ml 949.26 ml Output Total 1785 ml 945 ml Balance 550.0 ml 4.26 ml Free Water 30 ml IV Total 1560.0 ml 729.26 ml Tube Feeding 495 ml 220 ml Blood Product 250 ml Output Urine Total 885 ml 645 ml Stool Total 900 ml 300 ml Laboratory Tests 02/05/20 03:50: White Blood Count 9.2, Red Blood Count 3.24L, Hemoglobin 8.9L, Hematocrit 26.0L, Mean Corpuscular Volume 80, Mean Corpuscular Hemoglobin 27.6, Mean Corpuscular Hemoglobin Concent 34.3, Red Cell Distribution Width 21.6H, Platelet Count 288, Mean Platelet Volume 6.7, Neutrophils (%) (Auto) , Lymphocytes (%) (Auto) , Monocytes (%) (Auto) , Eosinophils (%) (Auto) , Basophils (%) (Auto) , Differential Total Cells Counted 100, Neutrophils % (Manual) 87H, Lymphocytes % (Manual) 3L, Monocytes % (Manual) 8, Eosinophils % (Manual) 0, Basophils % (Manual) 0, Band Neutrophils 2, Platelet Estimate Adequate, Platelet Morphology Normal, Anisocytosis 2+, Prothrombin Time 12.1H, Prothromb Time International Ratio 1.1, Sodium Level 137, Potassium Level 3.7, Chloride Level 106, Carbon Dioxide Level 20L, Anion Gap 11, Blood Urea Nitrogen 11, Creatinine 0.8, Estimat Glomerular Filtration Rate > 60, Glucose Level 93, Calcium Level 7.4L, Phosph orus Level 2.7, Magnesium Level 1.8, Total Bilirubin 0.5, Direct Bilirubin 0.2, Aspartate Amino Transf (AST/SGOT) 50H, Alanine Aminotransferase (ALT/SGPT) 29, Alkaline Phosphatase 214H, Total Protein 5.6L, Albumin 1.6L Height (Feet): 5 Height (Inches): 9.00 Weight (Pounds): 149 General Appearance: lethargic EENT: normal ENT inspection Neck: normal alignment Cardiovascular: normal peripheral pulses, normal rate, regular rhythm Respiratory/Chest: chest wall non-tender, lungs clear, normal breath sounds Abdomen: normal bowel sounds, non tender, soft Extremities: normal inspection Edema: no edema noted Arm (L), no edema noted Arm (R), no edema noted Leg (L), no edema noted Leg (R), no edema noted Pedal (L), no edema noted Pedal (R), no edema noted Generalized Neurologic: motor weakness Skin: normal pigmentation, warm/dry Assessment/Plan Problem List: (1) Anemia ICD Codes: D64.9 - Anemia, unspecified SNOMED: 926994337 (2) Paraplegia ICD Codes: G82.20 - Paraplegia, unspecified SNOMED: 57220129 (3) Diabetes ICD Codes: E11.9 - Type 2 diabetes mellitus without complications SNOMED: 92782832 (4) Weak ICD Codes: R53.1 - Weakness SNOMED: 95254503 (5) HTN (hypertension) ICD Codes: I10 - Essential (primary) hypertension SNOMED: 70250053 (6) ARF (acute renal failure) ICD Codes: N17.9 - Acute kidney failure, unspecified SNOMED: 10572261 (7) Altered level of consciousness ICD Codes: R40.4 - Transient alteration of awareness SNOMED: 8239066 (8) Dehydration ICD Codes: E86.0 - Dehydration SNOMED: 98221038 (9) Hypernatremia ICD Codes: E87.0 - Hyperosmolality and hypernatremia SNOMED: 430398949 Status: unchanged Assessment/Plan: vent abx transfuse prn gi/heme f/u cbc bmp am Farrukh Ríos DO Feb 05, 2020 13:14
--- NOTE | 2020-02-05 13:21 | 48 Hour Post Anesthesia Eval ---
Post Anesthesia Evaluation Procedure: Tracheostomy Date of Evaluation: Feb 05, 2020 Time of Evaluation: 14:23 Blood Pressure Systolic: 154 0: 70 Pulse Rate: 92 Respiratory Rate: 21 - Mech Vent Temperature (Fahrenheit): 98 O2 Sat by Pulse Oximetry: 96 Airway: patent Nausea: No Vomiting: No Pain Intensity: 0 Hydration Status: adequate Cardiopulmonary Status: Stable Follow-up Care/Observations: 0 Post-Anesthesia Complications: 0 Follow-up care needed: N/A Iggy Ross MD Feb 05, 2020 13:21
--- NOTE | 2020-02-05 14:12 | Surgery Progress Note ---
Surgery Progress Note Subjective Procedure Performed Tracheostomy Additional Comments trach today Objective Last 24 Hour Vital Signs Date Time Temp Pulse Resp B/P (MAP) Pulse Ox O2 Delivery O2 Flow Rate FiO2 02/05/20 14:00 88 19 124/68 (86) 97 02/05/20 13:30 89 18 114/68 (83) 96 02/05/20 13:21 92 21 96 02/05/20 13:15 90 16 117/68 (84) 96 02/05/20 13:00 92 21 134/70 (91) 96 02/05/20 12:45 95 18 142/77 (98) 100 02/05/20 12:30 98.3 102 13 140/71 (94) 98 02/05/20 12:30 30 02/05/20 12:30 101 12 100 02/05/20 12:20 97 13 125/68 (87) 100 02/05/20 12:20 108 02/05/20 12:00 30 02/05/20 12:00 Mechanical Ventilator Mechanical Ventilator 02/05/20 11:00 79 18 30 02/05/20 11:00 81 18 94/59 (71) 100 02/05/20 10:00 79 16 91/56 (68) 100 02/05/20 10:00 88 17 113/68 (83) 100 02/05/20 09:00 88 17 113/68 (83) 100 02/05/20 08:00 98.6 83 18 137/74 (95) 100 02/05/20 08:00 Mechanical Ventilator Mechanical Ventilator 02/05/20 08:00 71 02/05/20 07:59 30 02/05/20 07:18 81 17 30 02/05/20 07:00 84 22 119/75 (90) 100 02/05/20 06:00 85 17 118/69 (85) 100 02/05/20 05:00 93 22 126/77 (93) 100 02/05/20 04:00 Mechanical Ventilator Mechanical Ventilator 02/05/20 04:00 30 02/05/20 04:00 98.0 89 18 116/69 (85) 100 02/05/20 03:02 88 02/05/20 03:00 92 20 128/82 (97) 100 02/05/20 02:58 92 20 30 02/05/20 02:00 87 16 110/61 (77) 100 02/05/20 01:00 87 21 117/67 (84) 100 02/05/20 00:00 98.6 85 21 105/63 (77) 100 02/05/20 00:00 30 02/05/20 00:00 Mechanical Ventilator Mechanical Ventilator 02/04/20 23:17 91 19 30 02/04/20 23:16 87 02/04/20 23:00 86 21 120/69 (86) 100 02/04/20 22:00 82 21 132/70 (90) 100 02/04/20 21:00 92 19 118/66 (83) 100 02/04/20 20:00 30 02/04/20 20:00 98.9 88 19 120/71 (87) 100 02/04/20 20:00 Mechanical Ventilator Mechanical Ventilator 02/04/20 19:25 87 02/04/20 19:03 88 21 30 02/04/20 19:00 91 22 128/69 (88) 100 02/04/20 18:00 73 18 131/72 (91) 100 02/04/20 17:00 81 17 132/78 (96) 100 02/04/20 16:00 30 02/04/20 16:00 85 02/04/20 16:00 Mechanical Ventilator Mechanical Ventilator 02/04/20 16:00 98.0 84 18 119/98 (105) 100 02/04/20 15:21 93 19 30 02/04/20 15:00 86 17 122/68 (86) 100 I&O Intake and Output 02/04/20 02/05/20 19:00 07:00 Intake Total 2335.0 ml 949.26 ml Output Total 1785 ml 945 ml Balance 550.0 ml 4.26 ml Free Water 30 ml IV Total 1560.0 ml 729.26 ml Tube Feeding 495 ml 220 ml Blood Product 250 ml Output Urine Total 885 ml 645 ml Stool Total 900 ml 300 ml Laboratory Tests Test 02/05/20 03:50 02/05/20 13:29 White Blood Count 9.2 K/UL (4.8-10.8) Red Blood Count 3.24 M/UL (4.70-6.10) L Hemoglobin 8.9 G/DL (14.2-18.0) L Hematocrit 26.0 % (42.0-52.0) L Mean Corpuscular Volume 80 FL (80-99) Mean Corpuscular Hemoglobin 27.6 PG (27.0-31.0) Mean Corpuscular Hemoglobin Concent 34.3 G/DL (32.0-36.0) Red Cell Distribution Width 21.6 % (11.6-14.8) H Platelet Count 288 K/UL (150-450) Mean Platelet Volume 6.7 FL (6.5-10.1) Neutrophils (%) (Auto) % (45.0-75.0) Lymphocytes (%) (Auto) % (20.0-45.0) Monocytes (%) (Auto) % (1.0-10.0) Eosinophils (%) (Auto) % (0.0-3.0) Basophils (%) (Auto) % (0.0-2.0) Differential Total Cells Counted 100 Neutrophils % (Manual) 87 % (45-75) H Lymphocytes % (Manual) 3 % (20-45) L Monocytes % (Manual) 8 % (1-10) Eosinophils % (Manual) 0 % (0-3) Basophils % (Manual) 0 % (0-2) Band Neutrophils 2 % (0-8) Platelet Estimate Adequate Platelet Morphology Normal Anisocytosis 2+ Prothrombin Time 12.1 SEC (9.30-11.50) H Prothromb Time International Ratio 1.1 (0.9-1.1) Sodium Level 137 MMOL/L (136-145) Potassium Level 3.7 MMOL/L (3.5-5.1) Chloride Level 106 MMOL/L (98-107) Carbon Dioxide Level 20 MMOL/L (21-32) L Anion Gap 11 mmol/L (5-15) Blood Urea Nitrogen 11 mg/dL (7-18) Creatinine 0.8 MG/DL (0.55-1.30) Estimat Glomerular Filtration Rate > 60 mL/min (>60) Glucose Level 93 MG/DL (74-106) Calcium Level 7.4 MG/DL (8.5-10.1) L Phosphorus Level 2.7 MG/DL (2.5-4.9) Magnesium Level 1.8 MG/DL (1.8-2.4) Total Bilirubin 0.5 MG/DL (0.2-1.0) Direct Bilirubin 0.2 MG/DL (0.0-0.3) Aspartate Amino Transf (AST/SGOT) 50 U/L (15-37) H Alanine Aminotransferase (ALT/SGPT) 29 U/L (12-78) Alkaline Phosphatase 214 U/L (46-116) H Total Protein 5.6 G/DL (6.4-8.2) L Albumin 1.6 G/DL (3.4-5.0) L POC Whole Blood Glucose 83 MG/DL (74-106) Plan Problems: (1) Altered level of consciousness Assessment & Plan: weaning vent unsure if will be safe for extubation consider trach (2) Hypovolemic shock Assessment & Plan: resuscitation extubated monitor respiratory keep hob elevated supplemental O2 coded intubated in icu prognosis guarded ?code status change ?trach s/p trach 02/05/2020 Gallbladder demonstrates sludge. No stones, wall thickening, nor pericholecystic fluid. Patient unable to report Wilson's sign Common bile duct measures 3 mm in diameter. No intrahepatic biliary ductal dilatation. Liver demonstrates coarsened echogenicity and surface nodularity. It demonstrates multiple cysts. Portal vein and hepatic veins are patent. The pancreas demonstrates 3 hypoechoic lesions in the head and body, measuring approximately 5 mm in diameter each. Spleen is unremarkable, poorly visualized. Left kidney measures 11.4 cm in length. Right kidney measures 11.3 cm length. Both kidneys demonstrate normal echogenicity. There is severe right and moderate left hydronephrosis. Echogenic foci are seen in the left renal sinus and collecting system. Bladder is empty, contains a Mathew catheter. Non-aneurysmal abdominal aorta . There are bilateral pleural effusions Impression: Bilateral right greater than left hydronephrosis, increased since prior study of 03/20/2019. Etiology not demonstrated Empty bladder with a Mathew catheter 3 hypoechoic lesions within the pancreatic head and body, each measuring about 5 mm. Appearance nonspecific. Recommend further evaluation with pancreas protocol MRI Bilateral pleural effusions Echogenic liver, consistent with hepatocellular disease. Surface likely nodularity raises concern for cirrhosis Gallbladder sludge. Negative for dilated bile ducts Probable nonobstructive left intrarenal calculi Multiple hepatic cysts (3) Lactic acid acidosis (4) Hypernatremia (5) Paraplegia (6) Anemia Assessment & Plan: no active bleeding noted no large hematoma dressings okay likely related to heme will monitor transfuse prbc with HD trend labs thank you (7) Diabetes (8) Weak (9) HTN (hypertension) (10) ARF (acute renal failure) (11) Hypercalcemia (12) Hyperuricemia (13) Dehydration (14) UTI (urinary tract infection) (15) Failure to thrive in adult Assessment & Plan: patient identified to have DTI on bilateral heels right with 5cm x 4cm area of dti not open no drainage no signs of infection left with 3cm x 2cm. pillow under leg optifoam dressings nutritional optimization will follow no acute surgery DAILY ESTIMATED NEEDS: Needs based on underweight, suspected wt loss, HD, CRITICAL CARE/ 57.6kg 25-33 kcals/kg 4349-5802 total kcals 1.2-2 g protein/kg 69-115 g total protein 25-30 mL/kg 5869-5980 total fluid mLs NUTRITION DIAGNOSIS: *Increased kcal and pro needs r/t underweight status, suspected significant wt loss as evidenced by pt @ 71% IBW w/ BMI 17.2, underweight per guidelines, w/ suspected signficant wt loss of 30lbs/19% in 10 months. * Swallowing difficulty R/T dysphagia, respiratory status as evidenced by s/p NGT insertion (01/08), now NPO, s/p code blue (01/10), orally intubated. CURRENT TF:NPO ENTERAL NUTRITION RECOMMENDATIONS: WHEN HEMODYNAMICALLY STABLE: Nepro @ 40ml/hr x 24 hrs to provide 960ml, 1728kcal, 77g prot, 698ml free water WHEN HEMODYNAMICALLY STABLE AND MEDICALLY APPROPRIATE TO FEED: -> initiate TF @ 5ml/hr x 6hrs, advance slowly 5ml q 4-6 hrs as tolerated to goal rate -> HOB over 30 degrees/ water flush per MD WITHOUT HEMODYNAMIC STABILITY -> If medically appropriate to feed, rec trophic feeding of Nepro @ 5ml/hr x 24 hrs to maintain gut integrity (16) Pelvic mass Assessment & Plan: invasive pelvic mass likely prostate necrotic nodes likely spread recommend colonoscopy given invasion possible to rectum oncology input thank you There is a large pelvic mass which is cephalad to but inseparable from the prostate. This also is inseparable from the posterior wall of the bladder and there appears to be circumferential bladder wall thickening. This mass also appears to involve the seminal vesicles. This measures approximately 8.8 cm transverse by 10 cm craniocaudad by 7.4 cm AP. The periphery of this mass is very lobulated. The mass may also invade the adjacent rectum. There is bilateral iliac chain lymphadenopathy, with nodes measuring up to 3 cm in diameter. Some of these nodes are very low in attenuation indicating that they are necrotic. There is also retroperitoneal lymphadenopathy. There is severe right and moderate left hydronephrosis and bilateral hydroureter. The dilated ureters terminate at the level of the mass. No intrinsic renal parenchymal abnormality. The pancreas is unremarkable. No findings corresponding to the areas of low-attenuation described on prior sonogram are evident. No pancreatic ductal dilatation is evident. The liver demonstrates multiple cysts. The gallbladder, bile ducts, spleen, adrenals are unremarkable. The bones demonstrate diffuse involvement with multiple mixed osteolytic/osteosclerotic lesions, mostly sclerotic component predominating. There is a right groin dialysis catheter in place, tip at the level of the iliac venous confluence. There is a nasogastric tube,, tip in the stomach. There is a Mathew catheter. There is a rectal tube lying outside the patient with the balloon inflated within the inner gluteal fold. There are bilateral pleural effusions. There is compressive atelectasis of most if not all of both lower lobes. 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 Compressive atelectasis of most of not all of both lower lobes Other findings as noted, including multiple liver cysts Lázaro Jenkins Feb 05, 2020 14:12
[2020-02-05] MEDS: DAPTOmycin 700 MG in NS 55 ML IV SCH (15:14)
--- NOTE | 2020-02-05 15:59 | Operative Note - Dictated ---
DATE OF OPERATION: 02/05/2020 PREOPERATIVE DIAGNOSIS: Respiratory insufficiency requiring prolonged ventilatory support. POSTOPERATIVE DIAGNOSIS: Respiratory insufficiency requiring prolonged ventilatory support. OPERATION PERFORMED: Tracheostomy. ATTENDING SURGEON: Lázaro Jenkins MD. DIRECTOR OF VENDOR MANAGEMENT: None. ANESTHESIOLOGIST: Alessandra Kaye CRNA. ANESTHESIA: General PATTERN CHANGER AND REPAIRER. ESTIMATED BLOOD LOSS: Minimal. IV FLUIDS: Please see anesthesia records. COMPLICATIONS: None. DRAINS: None. COUNTS: Sponge and needle count correct x2. WOUND CLASSIFICATION: Class 3. SPECIMENS: None. IMPLANT: 8-Lao Shiley tracheostomy. ANTIBIOTICS: Patient on scheduled IV antibiotics. INDICATIONS FOR PROCEDURE: This is a 69-year-old male, currently in the intensive care unit at [facility] for a prolonged period of time after ACLS, requiring intubation and has been unable to be weaned safely from ventilator support. Tracheostomy is indicated, recommended, medically necessary given his care plan and goals of care. Unfortunately, there is no next of kin or power of geochemical laboratory technician. The patient is unable to consent. No family available. Given his care plan, Full Code, and multiple discussions with the primary medical team, medical services, and Pulmonology Services, tracheostomy is indicated and recommended and scheduled and planned for 02/05/2020. OPERATIVE NOTE: Patient was taken to the operating room and placed on the operating table in supine position with bilateral arms out. All bony prominences well padded. SCDs placed. Preoperative time-out taken to identify the patient, procedure, operative staff, and surgical staff. The patient with an ET tube in place. General anesthesia was induced. A shoulder roll was placed. Neck was hyperextended. The neck was prepped and draped in standard surgical fashion. Anatomical landmarks identified. Skin incision made after local anesthetic was infiltrated. Incision carried down through the subcutaneous tissue to the platysma and following this, the median raphae. Medial raphae was divided and the strap muscles were laterally mobilized with retraction. The trachea was identified. The first, second, third tracheal rings were noted and dissected out. A window was made between the first and second tracheal ring without complication. An ET tube was identified and the ET tube was slowly withdrawn with the anesthesiologist and an 8-Lao Shiley tracheostomy inserted without complication. Through second port, end-tidal CO2 noted and appropriate satisfactory position of tube identified. The patient was ventilated through the new tracheostomy after the balloon was insufflated. Sutures were placed tethered to the skin. Dressings applied followed by trach tie. Patient tolerated the procedure well, was taken back to the intensive care unit in stable condition. Lzáaro Jenkins M.D. DR: JOSEP JOB#: [id number] CC:
--- NOTE | 2020-02-05 17:20 | Pulmonology Progress Note ---
Subjective ROS Limited/Unobtainable: Yes Interval Events: Remains intubated Constitutional: Reports: no symptoms HEENT: Repors: no symptoms Respiratory: Reports: no symptoms Cardiovascular: Reports: no symptoms Gastrointestinal/Abdominal: Reports: no symptoms Genitourinary: Reports: no symptoms Allergies: Coded Allergies: No Known Allergies (Unverified , 03/18/19) All Systems: reviewed and negative except above Objective Last 24 Hour Vital Signs Date Time Temp Pulse Resp B/P (MAP) Pulse Ox O2 Delivery O2 Flow Rate FiO2 02/05/20 16:00 Mechanical Ventilator Mechanical Ventilator 02/05/20 16:00 30 02/05/20 16:00 81 02/05/20 16:00 98.1 80 19 129/78 (95) 99 02/05/20 15:30 79 19 135/72 (93) 99 02/05/20 15:00 86 19 118/68 (85) 98 02/05/20 14:45 86 19 120/70 (87) 98 02/05/20 14:30 87 20 119/67 (84) 98 02/05/20 14:15 88 19 121/68 (85) 97 02/05/20 14:00 88 19 124/68 (86) 97 02/05/20 13:30 89 18 114/68 (83) 96 02/05/20 13:21 92 21 96 02/05/20 13:15 90 16 117/68 (84) 96 02/05/20 13:00 92 21 134/70 (91) 96 02/05/20 12:45 95 18 142/77 (98) 100 02/05/20 12:30 98.3 102 13 140/71 (94) 98 02/05/20 12:30 30 02/05/20 12:30 101 12 100 02/05/20 12:20 97 13 125/68 (87) 100 02/05/20 12:20 108 02/05/20 12:00 30 02/05/20 12:00 Mechanical Ventilator Mechanical Ventilator 02/05/20 11:00 79 18 30 02/05/20 11:00 81 18 94/59 (71) 100 02/05/20 10:00 79 16 91/56 (68) 100 02/05/20 10:00 88 17 113/68 (83) 100 02/05/20 09:00 88 17 113/68 (83) 100 02/05/20 08:00 98.6 83 18 137/74 (95) 100 02/05/20 08:00 Mechanical Ventilator Mechanical Ventilator 02/05/20 08:00 71 02/05/20 07:59 30 02/05/20 07:18 81 17 30 02/05/20 07:00 84 22 119/75 (90) 100 02/05/20 06:00 85 17 118/69 (85) 100 02/05/20 05:00 93 22 126/77 (93) 100 02/05/20 04:00 Mechanical Ventilator Mechanical Ventilator 02/05/20 04:00 30 02/05/20 04:00 98.0 89 18 116/69 (85) 100 02/05/20 03:02 88 02/05/20 03:00 92 20 128/82 (97) 100 02/05/20 02:58 92 20 30 02/05/20 02:00 87 16 110/61 (77) 100 02/05/20 01:00 87 21 117/67 (84) 100 02/05/20 00:00 98.6 85 21 105/63 (77) 100 02/05/20 00:00 30 02/05/20 00:00 Mechanical Ventilator Mechanical Ventilator 02/04/20 23:17 91 19 30 02/04/20 23:16 87 02/04/20 23:00 86 21 120/69 (86) 100 02/04/20 22:00 82 21 132/70 (90) 100 02/04/20 21:00 92 19 118/66 (83) 100 02/04/20 20:00 30 02/04/20 20:00 98.9 88 19 120/71 (87) 100 02/04/20 20:00 Mechanical Ventilator Mechanical Ventilator 02/04/20 19:25 87 02/04/20 19:03 88 21 30 02/04/20 19:00 91 22 128/69 (88) 100 02/04/20 18:00 73 18 131/72 (91) 100 02/04/20 17:00 81 17 132/78 (96) 100 Intake and Output 02/04/20 02/05/20 19:00 07:00 Intake Total 2335.0 ml 949.26 ml Output Total 1785 ml 945 ml Balance 550.0 ml 4.26 ml Free Water 30 ml IV Total 1560.0 ml 729.26 ml Tube Feeding 495 ml 220 ml Blood Product 250 ml Output Urine Total 885 ml 645 ml Stool Total 900 ml 300 ml Objective pt on ET tube; appears obtunded in bed General Appearance: no acute distress HEENT: normocephalic, status post trach Respiratory: chest wall non-tender, other - coarse rhonchi Cardiovascular: normal peripheral pulses, normal rate Abdomen: soft, non tender Extremities: other - edema in four extremities Laboratory Tests 02/05/20 03:50: White Blood Count 9.2, Red Blood Count 3.24L, Hemoglobin 8.9L, Hematocrit 26.0L, Mean Corpuscular Volume 80, Mean Corpuscular Hemoglobin 27.6, Mean Corpuscular Hemoglobin Concent 34.3, Red Cell Distribution Width 21.6H, Platelet Count 288, Mean Platelet Volume 6.7, Neutrophils (%) (Auto) , Lymphocytes (%) (Auto) , Monocytes (%) (Auto) , Eosinophils (%) (Auto) , Basophils (%) (Auto) , Differential Total Cells Counted 100, Neutrophils % (Manual) 87H, Lymphocytes % (Manual) 3L, Monocytes % (Manual) 8, Eosinophils % (Manual) 0, Basophils % (Manual) 0, Band Neutrophils 2, Platelet Estimate Adequate, Platelet Morphology Normal, Anisocytosis 2+, Prothrombin Time 12.1H, Prothromb Time International Ratio 1.1, Sodium Level 137, Potassium Level 3.7, Chloride Level 106, Carbon Dioxide Level 20L, Anion Gap 11, Blood Urea Nitrogen 11, Creatinine 0.8, Estimat Glomerular Filtration Rate > 60, Glucose Level 93, Calcium Level 7.4L, Phosphorus Level 2.7, Magnesium Level 1.8, Total Bilirubin 0.5, Direct Bilirubin 0.2, Aspartate Amino Transf (AST/SGOT) 50H, Alanine Aminotransferase (ALT/SGPT) 29, Alkaline Phosphatase 214H, Total Protein 5.6L, Albumin 1.6L 02/05/20 13:29: POC Whole Blood Glucose 83 Current Medications Medications (Trade) Dose Ordered Sig/Jesse Route PRN Reason Start Time Stop Time Status Last Admin Dose Admin Acetaminophen (Tylenol) 650 mg Q4H PRN NG Temp >100.5, mild pain 02/03/20 22:15 03/04/20 22:14 11/29/20 23:04 Bisacodyl (Dulcolax) 10 mg DAILY PRN RECTAL Constipation 01/05/20 20:15 04/04/20 20:14 Chlorhexidine Gluconate (Navya-Hex 2%) 1 applic DAILY@2000 TOPIC 01/11/20 20:00 04/10/20 19:59 02/04/20 20:00 Daptomycin 700 mg/ Sodium Chloride 55 ml @ 110 mls/hr Q24H IV 02/04/20 15:00 02/11/20 14:59 02/05/20 15:14 Dextrose (Dextrose 50%) 25 ml Q30M PRN IV Hypoglycemia 01/05/20 20:15 04/04/20 20:14 01/24/20 23:53 Dextrose (Dextrose 50%) 50 ml Q30M PRN IV Hypoglycemia 01/05/20 20:15 04/04/20 20:14 Dextrose/Sodium Chloride 1,000 ml @ 60 mls/hr [id number] IV 01/24/20 13:30 02/23/20 13:29 02/05/20 14:50 Lansoprazole (Prevacid) 30 mg Q12HR NG 01/28/20 21:00 02/27/20 20:59 02/05/20 09:08 Linaclotide (Linzess) 290 mcg BEFORE BREAKFAST ORAL 01/10/20 06:30 04/09/20 06:29 02/05/20 05:54 Loperamide HCl (Imodium) 2 mg Q6H PRN NG Diarrhea 01/27/20 15:45 02/26/20 15:44 01/27/20 17:58 Metoclopramide HCl (Reglan) 10 mg EVERY 6 HOURS NG 01/19/20 12:00 02/18/20 11:59 02/05/20 12:44 Metoclopramide HCl (Reglan) 10 mg Q6H PRN IVP Nausea & Vomiting 01/16/20 13:00 02/15/20 12:59 Midodrine (Pro-Amatine) 10 mg Q8HR NG 01/20/20 22:00 04/13/20 17:59 02/05/20 14:45 Ondansetron HCl (Zofran) 4 mg Q6H PRN IVP Nausea & Vomiting 01/10/20 06:30 02/09/20 06:29 Piperacillin Sod/ Tazobactam Sod 3.375 gm/Sodium Chloride 110 ml @ 27.5 mls/hr EVERY 8 HOURS IVPB 01/30/20 14:00 02/09/20 23:59 02/05/20 14:45 Polyethylene Glycol (Miralax) 17 gm BEDTIME NG 01/11/20 21:00 02/08/20 20:59 01/29/20 20:39 Sennosides (Senokot) 8.6 mg QHS NG 01/11/20 21:00 02/11/20 20:59 02/04/20 21:10 Vitamin D (Vitamin D) 3,000 intlu DAILY GT 01/19/20 12:00 02/18/20 11:59 02/05/20 09:08 Assessment/Plan Assessment/Plan 1. Severe metabolic acidosis. - Corrected; now has combined respiratory and metabolic alkalosis 2. Respiratory failure - s/p trach today - FiO2 30 at 16:00 3. Diarrhea; Resolved - C. diff negative 02/02/2020 4. Acute renal failure. Nephrology following; - Bilateral right greater than left hydronephrosis since prior study of 03/10/2019 - Empty bladder with Mathew cath 5. Anemia - Improving; Hgb 7.1 -> 8.9 6. Altered mental status due to severe dehydration and acute renal failure. - On IV fluids and IV antibiotics. DISCUSSION: Remains obtunded Poor prognosis Recommend comfort care The care for this patient was discussed with my supervising physician Time spent on this case was 31 minutes Pedro Ramachandran Feb 05, 2020 17:20
[2020-02-05] MEDS: Dyna-Hex 2% Top Sol 2oz TOPIC SCH (20:00)
[2020-02-05] MEDS: Miralax 17gm pkt NG SCH (20:01)
[2020-02-05] MEDS: Sennosides 8.6mg tab NG SCH (20:01)
[2020-02-06] VITALS (19 sets, daily range): BP systolic 98–146; BP diastolic 56–93
[2020-02-06] MEDS: Piperacillin/Tazobactam 3.375 GM in NS 110 ML IVPB SCH (05:10)
[2020-02-06] MEDS: D5 1/2NS 1,000 ML IV SCH ×2 (05:10→22:17)
[2020-02-06] MEDS: Midodrine 10mg tab NG SCH ×3 (05:50→22:00)
[2020-02-06] MEDS: Metoclopramide 10mg/10ml Liq NG SCH ×3 (05:50→17:49)
[2020-02-06 05:53] LABS: HEMATOCRIT 26.2 % (42.0-52.0); HEMOGLOBIN 8.9 G/DL (14.2-18.0); MEAN CORPUSCULAR VOLUME 81 FL (80-99); PLATELET COUNT 311 K/UL (150-450); RED BLOOD COUNT 3.22 M/UL (4.70-6.10); RED CELL DISTRIBUTION WIDTH 21.2 % (11.6-14.8); WHITE BLOOD COUNT 9.9 K/UL (4.8-10.8)
[2020-02-06 05:54] LABS: ANION GAP 10 mmol/L (5-15); BLOOD UREA NITROGEN 10 mg/dL (7-18); CALCIUM 7.6 MG/DL (8.5-10.1); CARBON DIOXIDE 22 MMOL/L (21-32); CHLORIDE 107 MMOL/L (98-107); CREATININE 0.9 MG/DL (0.55-1.30); POTASSIUM 3.2 MMOL/L (3.5-5.1); SODIUM 139 MMOL/L (136-145)
[2020-02-06 05:58] LABS: INR 1.2 (0.9-1.1)
--- NOTE | 2020-02-06 07:22 | Hematology/Onc Progress Note ---
Assessment/Plan Assessment/Plan Assessment/Recs # Metastatic prostate cancer -- w psa [id number], has a Large pelvic mass as described involving the prostate, bladder, seminal vesicles, presumably representing prostatic malignancy --> CT Evidence of disseminated malignancy, with extensive lymphadenopathy of and evidenc of diffuse osseous metastases Severe right and moderate left hydronephrosis and bilateral hydroureter, due to ureteral obstruction by the above mass --> tumor markers ordered, psa [id number] --> after above reviewed, consider further biopsy of prostate with uro as needed # Pancytopenia with initially Anemia due to underlying chronic medical issues, multifactorial v Gi bleed v malignancy --> Anemia workup has been ordered, rule out gi bleed --> No evidence of hemolysis is noted, peripheral smear has been reviewed. --> Hgb goal >7. Transfuse prn. --> Epogen or iron at this time is not particularly indicated --> Medications have been reviewed --> low threshold for gi evaluation in case has occult + --> hgb 10-->9.7-->9.2->10-->8.6-->7.7-->5-->8.3->9.3->7.8-->8.2-->8.1-->9.3-->9.9->10-> 7.5 --> 11/8 flow cytometry ordered bc of nucleated cells on smear-->neg --> wbc 5-->4-->3.9-->4 --> plt 150-->98-->82-->51->49-->46-->50-->68-->88-->109 --> hep and hiv panel--NEG --> us abd-->shows 3 small lesions, requires further eval --> CT a/p reviewed # Multiple lesions noted in pancreas --> MRI abd ordered--> nondiagnostic --> CT of the abd reviewed # Respiratory failure --> s/p vent --> trach 02/04 scheduled # Protein caloric malnutrition --> daily calorie counts --> daily weights --> mirtazapine started # Acute renal failure --> continue on ivfs --> as per renal # Hypokalemia --> replete with K # Severe dehydration --> ivfs ongoing # Respiratory failure --> s/p intubation # Hypernatremia indicative of severe water deficit # Severe hyperuricemia, partly due to dehydration and renal failure # Acute metabolic and toxic encephalopathy # Mild, malnutrition # Psych issues per psych # Lactic acid, possible sepsis # Dvt ppx heparin sq->Scds # Comfort care potentially The timing of this note does not necessarily reflect the time of the patient was seen. Greatly appreciate consultation. Subjective Allergies: Coded Allergies: No Known Allergies (Unverified , 03/18/19) All Systems: reviewed and negative except above Subjective 01/07 meds noted, no bleeding, hgb 10, no hemolysis, hgb 10.1 01/08 labs reviewed, vi rn, no major events, no bleeding, hgb lower 01/09 labs noted, no bleeding, vi rn, no major changes, plt lower 01/10 did have epistaxis overnight, no bleeding, night sweats, epistaxis better 01/12 icu, remains on vent, levo, no bleeding, meds noted 01/13 remains in icu, no bleeding, on levo, no major changes 01/14 icu, is on 1l, restarints are off, no bleeding, no night sweats 01/15 icu, meds noted, with diarrhea, rectal tube reinserted, on nc 01/16 out of icu, no bleeding, meds reviewed, cbc ad bmp pending 01/17 unable to lay still for the mri, thus ct ordered, vi rn 01/19 hgb 6.9, no bleeding, no hemolysis, ct reviewed 01/20 obtunded, meds reviewed, hgb is better, in icu 01/21 obtunded, npo, labs hjave been reviewed, hgb 9.2 01/22 obtunded, in icu, no bleeding, plt 109 01/23 obtunded still icu, on venturimask, meds reviewed, labs noted 01/24 obtunded, in icu, labs reviewed, meds noted, wbc 4.1, plt 133 01/26 is out of the icu, no bleeding, meds noted, labs ordered 01/27 nonverbal, out of icu, on feedigs, no bleeding, labs reviewed 01/28 icu, nv, is on midrinone, linzess, ivf 01/29 icu, off levop, ngt restarted, meds noted 01/30 icu, with large bm, labs reviewed, no f/c, zosyn 01/31 icu, levo is on hold, no bleeding, abx, hgb 7.5 02/02 in icu, intubated, with ngt, no bleeding, labs noted 02/03 icu, labs are noted, remains intubated, to get 1unit prbc 02/04 vent/, trach to be done today, hgb much improved 8.9 02/05 is on vent, k was low, kcl was given iv, no bleeding Objective Objective Current Medications Medications (Trade) Dose Ordered Sig/Jesse Route PRN Reason Start Time Stop Time Status Last Admin Dose Admin Acetaminophen (Tylenol) 650 mg Q4H PRN NG Temp >100.5, mild pain 02/03/20 22:15 03/04/20 22:14 02/03/20 23:04 Bisacodyl (Dulcolax) 10 mg DAILY PRN RECTAL Constipation 01/05/20 20:15 04/04/20 20:14 Chlorhexidine Gluconate (Navya-Hex 2%) 1 applic DAILY@2000 TOPIC 01/11/20 20:00 04/10/20 19:59 02/05/20 20:00 Daptomycin 700 mg/ Sodium Chloride 55 ml @ 110 mls/hr Q24H IV 02/04/20 15:00 02/11/20 14:59 02/05/20 15:14 Dextrose (Dextrose 50%) 25 ml Q30M PRN IV Hypoglycemia 01/05/20 20:15 04/04/20 20:14 01/24/20 23:53 Dextrose (Dextrose 50%) 50 ml Q30M PRN IV Hypoglycemia 01/05/20 20:15 04/04/20 20:14 Dextrose/Sodium Chloride 1,000 ml @ 60 mls/hr [id number] IV 01/24/20 13:30 02/23/20 13:29 02/06/20 05:10 Lansoprazole (Prevacid) 30 mg Q12HR NG 01/28/20 21:00 02/27/20 20:59 02/05/20 20:01 Linaclotide (Linzess) 290 mcg BEFORE BREAKFAST ORAL 01/10/20 06:30 04/09/20 06:29 02/05/20 05:54 Loperamide HCl (Imodium) 2 mg Q6H PRN NG Diarrhea 01/27/20 15:45 02/26/20 15:44 01/27/20 17:58 Metoclopramide HCl (Reglan) 10 mg EVERY 6 HOURS NG 01/19/20 12:00 02/18/20 11:59 02/05/20 17:08 Metoclopramide HCl (Reglan) 10 mg Q6H PRN IVP Nausea & Vomiting 01/16/20 13:00 02/15/20 12:59 Midodrine (Pro-Amatine) 10 mg Q8HR NG 01/20/20 22:00 04/13/20 17:59 02/05/20 14:45 Ondansetron HCl (Zofran) 4 mg Q6H PRN IVP Nausea & Vomiting 01/10/20 06:30 02/09/20 06:29 Piperacillin Sod/ Tazobactam Sod 3.375 gm/Sodium Chloride 110 ml @ 27.5 mls/hr EVERY 8 HOURS IVPB 01/30/20 14:00 02/09/20 23:59 02/06/20 05:10 Polyethylene Glycol (Miralax) 17 gm BEDTIME NG 01/11/20 21:00 02/08/20 20:59 01/29/20 20:39 Potassium Chloride 100 ml @ 100 mls/hr Q1H IVPB 02/06/20 07:00 02/06/20 10:59 Sennosides (Senokot) 8.6 mg QHS NG 01/11/20 21:00 02/11/20 20:59 02/04/20 21:10 Vitamin D (Vitamin D) 3,000 intlu DAILY GT 01/19/20 12:00 02/18/20 11:59 02/05/20 09:08 Last 24 Hour Vital Signs Date Time Temp Pulse Resp B/P (MAP) Pulse Ox O2 Delivery O2 Flow Rate FiO2 02/06/20 07:00 87 16 114/66 (82) 100 02/06/20 06:00 86 18 107/56 (73) 100 02/06/20 05:00 90 17 124/70 (88) 100 02/06/20 04:00 98.2 91 21 116/66 (83) 100 02/06/20 04:00 30 02/06/20 04:00 Mechanical Ventilator Mechanical Ventilator 02/06/20 03:49 93 02/06/20 03:30 88 20 30 02/06/20 03:00 85 14 116/66 (83) 100 02/06/20 02:00 82 16 116/65 (82) 100 02/06/20 01:00 87 18 117/66 (83) 100 02/06/20 00:00 30 02/06/20 00:00 Mechanical Ventilator Mechanical Ventilator 02/06/20 00:00 98.2 82 18 114/60 (78) 100 02/05/20 23:21 84 02/05/20 23:12 85 21 30 02/05/20 23:00 83 16 115/63 (80) 100 02/05/20 22:00 82 17 115/68 (84) 100 02/05/20 21:00 79 17 118/66 (83) 100 02/05/20 20:00 98.4 78 16 126/73 (90) 100 02/05/20 20:00 30 02/05/20 20:00 Mechanical Ventilator Mechanical Ventilator 02/05/20 19:20 74 02/05/20 19:03 79 19 30 02/05/20 19:00 77 13 120/64 (82) 100 02/05/20 18:00 91 20 153/73 (99) 100 02/05/20 17:00 80 20 131/72 (91) 100 02/05/20 16:00 Mechanical Ventilator Mechanical Ventilator 02/05/20 16:00 30 02/05/20 16:00 81 02/05/20 16:00 98.1 80 19 129/78 (95) 99 02/05/20 15:30 79 19 135/72 (93) 99 02/05/20 15:19 83 24 30 02/05/20 15:00 86 19 118/68 (85) 98 02/05/20 14:45 86 19 120/70 (87) 98 02/05/20 14:30 87 20 119/67 (84) 98 02/05/20 14:15 88 19 121/68 (85) 97 02/05/20 14:00 88 19 124/68 (86) 97 02/05/20 13:30 89 18 114/68 (83) 96 02/05/20 13:21 92 21 96 02/05/20 13:15 90 16 117/68 (84) 96 02/05/20 13:00 92 21 134/70 (91) 96 02/05/20 12:45 95 18 142/77 (98) 100 02/05/20 12:30 98.3 102 13 140/71 (94) 98 02/05/20 12:30 30 02/05/20 12:30 101 12 100 02/05/20 12:20 97 13 125/68 (87) 100 02/05/20 12:20 108 02/05/20 12:00 30 02/05/20 12:00 Mechanical Ventilator Mechanical Ventilator 02/05/20 11:00 79 18 30 02/05/20 11:00 81 18 94/59 (71) 100 02/05/20 10:00 79 16 91/56 (68) 100 02/05/20 10:00 88 17 113/68 (83) 100 02/05/20 09:00 88 17 113/68 (83) 100 02/05/20 08:00 98.6 83 18 137/74 (95) 100 02/05/20 08:00 Mechanical Ventilator Mechanical Ventilator 02/05/20 08:00 71 02/05/20 07:59 30 02/05/20 07:18 81 17 30 02/05/20 07:00 84 22 119/75 (90) 100 02/05/20 06:00 85 17 118/69 (85) 100 02/05/20 05:00 93 22 126/77 (93) 100 02/05/20 04:00 Mechanical Ventilator Mechanical Ventilator 02/05/20 04:00 30 02/05/20 04:00 98.0 89 18 116/69 (85) 100 02/05/20 03:02 88 02/05/20 03:00 92 20 128/82 (97) 100 02/05/20 02:58 92 20 30 02/05/20 02:00 87 16 110/61 (77) 100 02/05/20 01:00 87 21 117/67 (84) 100 02/05/20 00:00 98.6 85 21 105/63 (77) 100 02/05/20 00:00 30 02/05/20 00:00 Mechanical Ventilator Mechanical Ventilator 02/04/20 23:17 91 19 30 02/04/20 23:16 87 02/04/20 23:00 86 21 120/69 (86) 100 02/04/20 22:00 82 21 132/70 (90) 100 02/04/20 21:00 92 19 118/66 (83) 100 02/04/20 20:00 30 02/04/20 20:00 98.9 88 19 120/71 (87) 100 02/04/20 20:00 Mechanical Ventilator Mechanical Ventilator 02/04/20 19:25 87 02/04/20 19:03 88 21 30 02/04/20 19:00 91 22 128/69 (88) 100 02/04/20 18:00 73 18 131/72 (91) 100 02/04/20 17:00 81 17 132/78 (96) 100 02/04/20 16:00 30 02/04/20 16:00 85 02/04/20 16:00 Mechanical Ventilator Mechanical Ventilator 02/04/20 16:00 98.0 84 18 119/98 (105) 100 02/04/20 15:21 93 19 30 02/04/20 15:00 86 17 122/68 (86) 100 02/04/20 14:00 91 16 117/67 (84) 100 02/04/20 13:00 87 15 96/49 (65) 100 02/04/20 12:00 Mechanical Ventilator Mechanical Ventilator 02/04/20 12:00 87 02/04/20 12:00 97.9 87 16 110/62 (78) 100 02/04/20 12:00 30 02/04/20 11:14 89 21 30 02/04/20 11:00 87 17 95/52 (66) 100 02/04/20 10:00 85 15 110/57 (74) 100 02/04/20 09:00 86 16 108/76 (87) 100 02/04/20 08:32 80 02/04/20 08:00 Mechanical Ventilator Mechanical Ventilator 02/04/20 08:00 98.7 85 18 117/68 (84) 100 02/04/20 08:00 30 Intake and Output 02/05/20 02/06/20 19:00 07:00 Intake Total 1225.0 ml 916.5 ml Output Total 665 ml 1115 ml Balance 560.0 ml -198.5 ml Free Water 210 ml 60 ml IV Total 975.0 ml 856.5 ml Other 40 ml Output Urine Total 665 ml 515 ml Stool Total 600 ml Labs Test 02/03/20 10:50 02/04/20 00:18 02/04/20 03:50 02/04/20 05:21 Prothrombin Time 12.3 SEC (9.30-11.50) Prothromb Time International Ratio 1.1 (0.9-1.1) Activated Partial Thromboplast Time 28 SEC (23-33) POC Whole Blood Glucose 112 MG/DL (74-106) 88 MG/DL (74-106) White Blood Count 9.0 K/UL (4.8-10.8) Red Blood Count 2.48 M/UL (4.70-6.10) Hemoglobin 7.1 G/DL (14.2-18.0) Hematocrit 20.6 % (42.0-52.0) Mean Corpuscular Volume 83 FL (80-99) Mean Corpuscular Hemoglobin 28.4 PG (27.0-31.0) Mean Corpuscular Hemoglobin Concent 34.2 G/DL (32.0-36.0) Red Cell Distribution Width 21.2 % (11.6-14.8) Platelet Count 248 K/UL (150-450) Mean Platelet Volume 7.1 FL (6.5-10.1) Neutrophils (%) (Auto) % (45.0-75.0) Lymphocytes (%) (Auto) % (20.0-45.0) Monocytes (%) (Auto) % (1.0-10.0) Eosinophils (%) (Auto) % (0.0-3.0) Basophils (%) (Auto) % (0.0-2.0) Sodium Level 138 MMOL/L (136-145) Potassium Level 3.6 MMOL/L (3.5-5.1) Chloride Level 107 MMOL/L (98-107) Carbon Dioxide Level 20 MMOL/L (21-32) Blood Urea Nitrogen 11 mg/dL (7-18) Creatinine 0.8 MG/DL (0.55-1.30) Estimat Glomerular Filtration Rate > 60 mL/min (>60) Glucose Level 80 MG/DL (74-106) Calcium Level 7.4 MG/DL (8.5-10.1) Phosphorus Level 2.0 MG/DL (2.5-4.9) Magnesium Level 1.5 MG/DL (1.8-2.4) Total Bilirubin 0.3 MG/DL (0.2-1.0) Aspartate Amino Transf (AST/SGOT) 48 U/L (15-37) Alanine Aminotransferase (ALT/SGPT) 25 U/L (12-78) Alkaline Phosphatase 202 U/L (46-116) Total Creatine Kinase 49 U/L (26-308) Total Protein 5.2 G/DL (6.4-8.2) Albumin 1.5 G/DL (3.4-5.0) Globulin 3.7 g/dL Albumin/Globulin Ratio 0.4 (1.0-2.7) Test 02/05/20 03:50 02/05/20 13:29 02/05/20 17:15 02/06/20 00:21 White Blood Count 9.2 K/UL (4.8-10.8) Red Blood Count 3.24 M/UL (4.70-6.10) Hemoglobin 8.9 G/DL (14.2-18.0) Hematocrit 26.0 % (42.0-52.0) Mean Corpuscular Volume 80 FL (80-99) Mean Corpuscular Hemoglobin 27.6 PG (27.0-31.0) Mean Corpuscular Hemoglobin Concent 34.3 G/DL (32.0-36.0) Red Cell Distribution Width 21.6 % (11.6-14.8) Platelet Count 288 K/UL (150-450) Mean Platelet Volume 6.7 FL (6.5-10.1) Neutrophils (%) (Auto) % (45.0-75.0) Lymphocytes (%) (Auto) % (20.0-45.0) Monocytes (%) (Auto) % (1.0-10.0) Eosinophils (%) (Auto) % (0.0-3.0) Basophils (%) (Auto) % (0.0-2.0) Differential Total Cells Counted 100 Neutrophils % (Manual) 87 % (45-75) Lymphocytes % (Manual) 3 % (20-45) Monocytes % (Manual) 8 % (1-10) Eosinophils % (Manual) 0 % (0-3) Basophils % (Manual) 0 % (0-2) Band Neutrophils 2 % (0-8) Platelet Estimate Adequate Platelet Morphology Normal Anisocytosis 2+ Prothrombin Time 12.1 SEC (9.30-11.50) Prothromb Time International Ratio 1.1 (0.9-1.1) Sodium Level 137 MMOL/L (136-145) Potassium Level 3.7 MMOL/L (3.5-5.1) Chloride Level 106 MMOL/L (98-107) Carbon Dioxide Level 20 MMOL/L (21-32) Anion Gap 11 mmol/L (5-15) Blood Urea Nitrogen 11 mg/dL (7-18) Creatinine 0.8 MG/DL (0.55-1.30) Estimat Glomerular Filtration Rate > 60 mL/min (>60) Glucose Level 93 MG/DL (74-106) Calcium Level 7.4 MG/DL (8.5-10.1) Phosphorus Level 2.7 MG/DL (2.5-4.9) Magnesium Level 1.8 MG/DL (1.8-2.4) Total Bilirubin 0.5 MG/DL (0.2-1.0) Direct Bilirubin 0.2 MG/DL (0.0-0.3) Aspartate Amino Transf (AST/SGOT) 50 U/L (15-37) Alanine Aminotransferase (ALT/SGPT) 29 U/L (12-78) Alkaline Phosphatase 214 U/L (46-116) Total Protein 5.6 G/DL (6.4-8.2) Albumin 1.6 G/DL (3.4-5.0) POC Whole Blood Glucose 83 MG/DL (74-106) 90 MG/DL (74-106) 95 MG/DL (74-106) Test 02/06/20 04:00 02/06/20 05:19 White Blood Count 9.9 K/UL (4.8-10.8) Red Blood Count 3.22 M/UL (4.70-6.10) Hemoglobin 8.9 G/DL (14.2-18.0) Hematocrit 26.2 % (42.0-52.0) Mean Corpuscular Volume 81 FL (80-99) Mean Corpuscular Hemoglobin 27.7 PG (27.0-31.0) Mean Corpuscular Hemoglobin Concent 34.0 G/DL (32.0-36.0) Red Cell Distribution Width 21.2 % (11.6-14.8) Platelet Count 311 K/UL (150-450) Mean Platelet Volume 6.9 FL (6.5-10.1) Neutrophils (%) (Auto) % (45.0-75.0) Lymphocytes (%) (Auto) % (20.0-45.0) Monocytes (%) (Auto) % (1.0-10.0) Eosinophils (%) (Auto) % (0.0-3.0) Basophils (%) (Auto) % (0.0-2.0) Prothrombin Time 12.9 SEC (9.30-11.50) Prothromb Time International Ratio 1.2 (0.9-1.1) Activated Partial Thromboplast Time 29 SEC (23-33) Sodium Level 139 MMOL/L (136-145) Potassium Level 3.2 MMOL/L (3.5-5.1) Chloride Level 107 MMOL/L (98-107) Carbon Dioxide Level 22 MMOL/L (21-32) Anion Gap 10 mmol/L (5-15) Blood Urea Nitrogen 10 mg/dL (7-18) Creatinine 0.9 MG/DL (0.55-1.30) Estimat Glomerular Filtration Rate > 60 mL/min (>60) Glucose Level 82 MG/DL (74-106) Calcium Level 7.6 MG/DL (8.5-10.1) Height (Feet): 5 Height (Inches): 9.00 Weight (Pounds): 149 Objective PE: Vitals: reviewed General Appearance: NAD HEENT: normocephalic, atraumatic Neck: non-tender, normal alignment Respiratory/Chest: nromal breath sounds bilaterally Cardiovascular/Chest: normal peripheral pulses, normal rate Abdomen: normal bowel sounds, soft, nontender Extremities: normal range of motion Samuel Son MD Feb 06, 2020 07:22
--- NOTE | 2020-02-06 08:39 | Infectious Diseases Prog Note ---
Assessment/Plan 69yo M with: VRE bacteremia, most likely 2/2 HD cath placed 01/10 01/29 BCx 1/2 + VRE 01/31 BCx NTD (prior to started abx for VRE) 02/01 Cath tip cx +VRE 02/01 Resp cx +P.mirabilis (S-CTX) & MSSA 02/03 Daptomycin started 02/04 BCx NTD Recurrent resp failure, most likely 2/2 increased volume, vascular congestion, pleural effusion, less likely 2/2 infection CODE BLUE 01/28, r/o infection Large L pleural effusion 01/28 CXR: Enlarged and now quite large left pleural effusion. Increasing interstitial congestion. Stable right pleural effusion 01/29 BCx 03/08 + VRE Shock- likely combination septic and metabolic derangements- SP Probable UTI -01/10 u/a wbc 60-80, nit neg, leuk +3; ucx Neg -Bcx NTD Probable PNA -01/12 CXR: No significant change in bilateral patchy pulmondary opacities, concerning for pneumonia versus edemaq. Small bilateral pleural effusions. -01/10 CXR: Bilateral interstitial and airspace infiltrates versus edema persists. sp cx MRSA (S Vancomycin, bactrim, tetracycline) COVID19 neg -01/04 rapid COVID PCR neg x1 influenza PCR neg CXR: Mild interstitial vascular prominence. No focal infiltrate or consolidation. 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 Etiology not demonstrated. Empty bladder with a Mathew catheter. 3 hypoechoic lesions within the pancreatic head and body, each measuring about 5 mm. Appearance nonspecific. Bilateral pleural effusions. Echogenic liver, consistent with hepatocellular disease. Surface likely nodularity raises concern for cirrhosis. Gallbladder sludge. Negative for dilated bile ducts. Probable nonobstructive left intrarenal calculi. Multiple hepatic cysts Acute on chronic encephalopathy -CT head: 1. Markedly limited, near nondiagnostic evaluation due to motion artifact. Grossly, age-related changes and small vessel disease of aging are noted. Again grossly, no acute intracranial pathology is detected. If there is a high degree of concern or if there is concern for subtle abnormalities, magnetic resonance imaging of the brain with diffusion-weighted sequences should be performed, due to the markedly limited nature of the current study. Close clinical correlation is necessary. HTN COPD DM2 paraplegia Dementia non verbal [place] resident (elan mora) Plan: Cont daptomycin #3/10 for transient VRE bacteremia (02/03 CK =49) Stop Zosyn #7/7 for possible pna during Code blue event F/u repeat BCx 02/04, NTD -02/05 SP Zosyn #7 for possible pna during Code blue -01/18 SP vanco IV #7 -01/16 SP Cefepime #4 -01/13 SP ZOsyn #4 -01/06 SP Ceftriaxone #2 -01/04 Sp IV Vancomycin x1, Cefepime x1 -f/u cx -Monitor CBC/CMP, temperatures -Renal, cards f/u -aspiration precautions D/w RN Thank you for consulting [facility]. Will continue to follow along with you. Subjective Allergies: Coded Allergies: No Known Allergies (Unverified , 03/18/19) AF WBC 9.9 Bcx from 01/29 with VRE, repeat BCx 01/31 prior to abx for VRE are NTD Cath tip cx +VRE NAD on vent S/p trach and PEG Objective Last 24 Hour Vital Signs Date Time Temp Pulse Resp B/P (MAP) Pulse Ox O2 Delivery O2 Flow Rate FiO2 02/06/20 08:00 98.2 90 22 113/66 (82) 100 02/06/20 08:00 30 02/06/20 07:17 86 20 30 02/06/20 07:00 87 16 114/66 (82) 100 02/06/20 06:00 86 18 107/56 (73) 100 02/06/20 05:00 90 17 124/70 (88) 100 02/06/20 04:00 98.2 91 21 116/66 (83) 100 02/06/20 04:00 30 02/06/20 04:00 Mechanical Ventilator Mechanical Ventilator 02/06/20 03:49 93 02/06/20 03:30 88 20 30 02/06/20 03:00 85 14 116/66 (83) 100 02/06/20 02:00 82 16 116/65 (82) 100 02/06/20 01:00 87 18 117/66 (83) 100 02/06/20 00:00 30 02/06/20 00:00 Mechanical Ventilator Mechanical Ventilator 02/06/20 00:00 98.2 82 18 114/60 (78) 100 02/05/20 23:21 84 02/05/20 23:12 85 21 30 02/05/20 23:00 83 16 115/63 (80) 100 02/05/20 22:00 82 17 115/68 (84) 100 02/05/20 21:00 79 17 118/66 (83) 100 02/05/20 20:00 98.4 78 16 126/73 (90) 100 02/05/20 20:00 30 02/05/20 20:00 Mechanical Ventilator Mechanical Ventilator 02/05/20 19:20 74 02/05/20 19:03 79 19 30 02/05/20 19:00 77 13 120/64 (82) 100 02/05/20 18:00 91 20 153/73 (99) 100 02/05/20 17:00 80 20 131/72 (91) 100 02/05/20 16:00 Mechanical Ventilator Mechanical Ventilator 02/05/20 16:00 30 02/05/20 16:00 81 02/05/20 16:00 98.1 80 19 129/78 (95) 99 02/05/20 15:30 79 19 135/72 (93) 99 02/05/20 15:19 83 24 30 02/05/20 15:00 86 19 118/68 (85) 98 02/05/20 14:45 86 19 120/70 (87) 98 02/05/20 14:30 87 20 119/67 (84) 98 02/05/20 14:15 88 19 121/68 (85) 97 02/05/20 14:00 88 19 124/68 (86) 97 02/05/20 13:30 89 18 114/68 (83) 96 02/05/20 13:21 92 21 96 02/05/20 13:15 90 16 117/68 (84) 96 02/05/20 13:00 92 21 134/70 (91) 96 02/05/20 12:45 95 18 142/77 (98) 100 02/05/20 12:30 98.3 102 13 140/71 (94) 98 02/05/20 12:30 30 02/05/20 12:30 101 12 100 02/05/20 12:20 97 13 125/68 (87) 100 02/05/20 12:20 108 02/05/20 12:00 30 02/05/20 12:00 Mechanical Ventilator Mechanical Ventilator 02/05/20 11:00 79 18 30 02/05/20 11:00 81 18 94/59 (71) 100 02/05/20 10:00 79 16 91/56 (68) 100 02/05/20 10:00 88 17 113/68 (83) 100 02/05/20 09:00 88 17 113/68 (83) 100 Height (Feet): 5 Height (Inches): 9.00 Weight (Pounds): 149 Gen: NAD in bed HEENT: NCAT, +trach CV: RRR Pulm: BL chest rise on vent Abd: Soft, Non-distended, +PEG Ext: No c/c/e Neuro: Not interactive Lines: R IJ HD cath placed 02/01 Microbiology Date/Time Source Procedure Growth Status 02/05/20 03:50 Blood Blood Culture - Preliminary NO GROWTH AFTER 24 HOURS Resulted Laboratory Tests Test 02/05/20 13:29 02/05/20 17:15 02/06/20 00:21 02/06/20 04:00 POC Whole Blood Glucose 83 MG/DL (74-106) 90 MG/DL (74-106) 95 MG/DL (74-106) White Blood Count 9.9 K/UL (4.8-10.8) Red Blood Count 3.22 M/UL (4.70-6.10) L Hemoglobin 8.9 G/DL (14.2-18.0) L Hematocrit 26.2 % (42.0-52.0) L Mean Corpuscular Volume 81 FL (80-99) Mean Corpuscular Hemoglobin 27.7 PG (27.0-31.0) Mean Corpuscular Hemoglobin Concent 34.0 G/DL (32.0-36.0) Red Cell Distribution Width 21.2 % (11.6-14.8) H Platelet Count 311 K/UL (150-450) Mean Platelet Volume 6.9 FL (6.5-10.1) Neutrophils (%) (Auto) % (45.0-75.0) Lymphocytes (%) (Auto) % (20.0-45.0) Monocytes (%) (Auto) % (1.0-10.0) Eosinophils (%) (Auto) % (0.0-3.0) Basophils (%) (Auto) % (0.0-2.0) Neutrophils % (Manual) Pending Lymphocytes % (Manual) Pending Platelet Estimate Pending Platelet Morphology Pending Prothrombin Time 12.9 SEC (9.30-11.50) H Prothromb Time International Ratio 1.2 (0.9-1.1) H Activated Partial Thromboplast Time 29 SEC (23-33) Sodium Level 139 MMOL/L (136-145) Potassium Level 3.2 MMOL/L (3.5-5.1) L Chloride Level 107 MMOL/L (98-107) Carbon Dioxide Level 22 MMOL/L (21-32) Anion Gap 10 mmol/L (5-15) Blood Urea Nitrogen 10 mg/dL (7-18) Creatinine 0.9 MG/DL (0.55-1.30) Estimat Glomerular Filtration Rate > 60 mL/min (>60) Glucose Level 82 MG/DL (74-106) Calcium Level 7.6 MG/DL (8.5-10.1) L Test 02/06/20 05:19 POC Whole Blood Glucose Pending Current Medications Medications (Trade) Dose Ordered Sig/Jesse Route PRN Reason Start Time Stop Time Status Last Admin Dose Admin Acetaminophen (Tylenol) 650 mg Q4H PRN NG Temp >100.5, mild pain 02/03/20 22:15 03/04/20 22:14 02/03/20 23:04 Bisacodyl (Dulcolax) 10 mg DAILY PRN RECTAL Constipation 01/05/20 20:15 04/04/20 20:14 Chlorhexidine Gluconate (Navya-Hex 2%) 1 applic DAILY@2000 TOPIC 01/11/20 20:00 04/10/20 19:59 02/05/20 20:00 Daptomycin 700 mg/ Sodium Chloride 55 ml @ 110 mls/hr Q24H IV 02/04/20 15:00 02/11/20 14:59 02/05/20 15:14 Dextrose (Dextrose 50%) 25 ml Q30M PRN IV Hypoglycemia 01/05/20 20:15 04/04/20 20:14 01/24/20 23:53 Dextrose (Dextrose 50%) 50 ml Q30M PRN IV Hypoglycemia 01/05/20 20:15 04/04/20 20:14 Dextrose/Sodium Chloride 1,000 ml @ 60 mls/hr [id number] IV 01/24/20 13:30 02/23/20 13:29 02/06/20 05:10 Lansoprazole (Prevacid) 30 mg Q12HR NG 01/28/20 21:00 02/27/20 20:59 02/05/20 20:01 Linaclotide (Linzess) 290 mcg BEFORE BREAKFAST ORAL 01/10/20 06:30 04/09/20 06:29 02/05/20 05:54 Loperamide HCl (Imodium) 2 mg Q6H PRN NG Diarrhea 01/27/20 15:45 02/26/20 15:44 01/27/20 17:58 Metoclopramide HCl (Reglan) 10 mg EVERY 6 HOURS NG 01/19/20 12:00 02/18/20 11:59 02/05/20 17:08 Metoclopramide HCl (Reglan) 10 mg Q6H PRN IVP Nausea & Vomiting 01/16/20 13:00 02/15/20 12:59 Midodrine (Pro-Amatine) 10 mg Q8HR NG 01/20/20 22:00 04/13/20 17:59 02/05/20 14:45 Ondansetron HCl (Zofran) 4 mg Q6H PRN IVP Nausea & Vomiting 01/10/20 06:30 02/09/20 06:29 Piperacillin Sod/ Tazobactam Sod 3.375 gm/Sodium Chloride 110 ml @ 27.5 mls/hr EVERY 8 HOURS IVPB 01/30/20 14:00 02/09/20 23:59 02/06/20 05:10 Polyethylene Glycol (Miralax) 17 gm BEDTIME NG 01/11/20 21:00 02/08/20 20:59 01/29/20 20:39 Potassium Chloride 100 ml @ 100 mls/hr Q1H IVPB 02/06/20 07:00 02/06/20 10:59 02/06/20 07:45 Potassium Chloride 100 ml @ 100 mls/hr Q1HR IVPB 02/06/20 09:00 02/06/20 12:59 UNV Sennosides (Senokot) 8.6 mg QHS NG 01/11/20 21:00 02/11/20 20:59 02/04/20 21:10 Vitamin D (Vitamin D) 3,000 intlu DAILY GT 01/19/20 12:00 02/18/20 11:59 02/05/20 09:08 Nayana Ochoa M.D. Feb 06, 2020 08:39
[2020-02-06] MEDS: Vitamin D 1000 IU Tab GT SCH (09:00)
--- NOTE | 2020-02-06 09:15 | General Progress Note ---
Subjective ROS Limited/Unobtainable: No Allergies: Coded Allergies: No Known Allergies (Unverified , 03/18/19) Objective Last 24 Hour Vital Signs Date Time Temp Pulse Resp B/P (MAP) Pulse Ox O2 Delivery O2 Flow Rate FiO2 02/06/20 09:00 86 17 103/63 (76) 100 02/06/20 08:00 98.2 90 22 113/66 (82) 100 02/06/20 08:00 30 02/06/20 07:17 86 20 30 02/06/20 07:00 87 16 114/66 (82) 100 02/06/20 06:00 86 18 107/56 (73) 100 02/06/20 05:00 90 17 124/70 (88) 100 02/06/20 04:00 98.2 91 21 116/66 (83) 100 02/06/20 04:00 30 02/06/20 04:00 Mechanical Ventilator Mechanical Ventilator 02/06/20 03:49 93 02/06/20 03:30 88 20 30 02/06/20 03:00 85 14 116/66 (83) 100 02/06/20 02:00 82 16 116/65 (82) 100 02/06/20 01:00 87 18 117/66 (83) 100 02/06/20 00:00 30 02/06/20 00:00 Mechanical Ventilator Mechanical Ventilator 02/06/20 00:00 98.2 82 18 114/60 (78) 100 02/05/20 23:21 84 02/05/20 23:12 85 21 30 02/05/20 23:00 83 16 115/63 (80) 100 02/05/20 22:00 82 17 115/68 (84) 100 02/05/20 21:00 79 17 118/66 (83) 100 02/05/20 20:00 98.4 78 16 126/73 (90) 100 02/05/20 20:00 30 02/05/20 20:00 Mechanical Ventilator Mechanical Ventilator 02/05/20 19:20 74 02/05/20 19:03 79 19 30 02/05/20 19:00 77 13 120/64 (82) 100 02/05/20 18:00 91 20 153/73 (99) 100 02/05/20 17:00 80 20 131/72 (91) 100 02/05/20 16:00 Mechanical Ventilator Mechanical Ventilator 02/05/20 16:00 30 02/05/20 16:00 81 02/05/20 16:00 98.1 80 19 129/78 (95) 99 02/05/20 15:30 79 19 135/72 (93) 99 02/05/20 15:19 83 24 30 02/05/20 15:00 86 19 118/68 (85) 98 02/05/20 14:45 86 19 120/70 (87) 98 02/05/20 14:30 87 20 119/67 (84) 98 02/05/20 14:15 88 19 121/68 (85) 97 02/05/20 14:00 88 19 124/68 (86) 97 02/05/20 13:30 89 18 114/68 (83) 96 02/05/20 13:21 92 21 96 02/05/20 13:15 90 16 117/68 (84) 96 02/05/20 13:00 92 21 134/70 (91) 96 02/05/20 12:45 95 18 142/77 (98) 100 02/05/20 12:30 98.3 102 13 140/71 (94) 98 02/05/20 12:30 30 02/05/20 12:30 101 12 100 02/05/20 12:20 97 13 125/68 (87) 100 02/05/20 12:20 108 02/05/20 12:00 30 02/05/20 12:00 Mechanical Ventilator Mechanical Ventilator 02/05/20 11:00 79 18 30 02/05/20 11:00 81 18 94/59 (71) 100 02/05/20 10:00 79 16 91/56 (68) 100 02/05/20 10:00 88 17 113/68 (83) 100 Intake and Output 02/05/20 02/06/20 19:00 07:00 Intake Total 1225.0 ml 916.5 ml Output Total 665 ml 1115 ml Balance 560.0 ml -198.5 ml Free Water 210 ml 60 ml IV Total 975.0 ml 856.5 ml Other 40 ml Output Urine Total 665 ml 515 ml Stool Total 600 ml Laboratory Tests 02/05/20 13:29: POC Whole Blood Glucose 83 02/05/20 17:15: POC Whole Blood Glucose 90 02/06/20 00:21: POC Whole Blood Glucose 95 02/06/20 04:00: White Blood Count 9.9, Red Blood Count 3.22L, Hemoglobin 8.9L, Hematocrit 26.2L, Mean Corpuscular Volume 81, Mean Corpuscular Hemoglobin 27.7, Mean Corpuscular Hemoglobin Concent 34.0, Red Cell Distribution Width 21.2H, Platelet Count 311, Mean Platelet Volume 6.9, Neutrophils (%) (Auto) , Lymphocytes (%) (Auto) , Monocytes (%) (Auto) , Eosinophils (%) (Auto) , Basophils (%) (Auto) , Neutrophils % (Manual) [Pending], Lymphocytes % (Manual) [Pending], Platelet Estimate [Pending], Platelet Morphology [Pending], Prothrombin Time 12.9H, Prothromb Time International Ratio 1.2H, Activated Partial Thromboplast Time 29, Sodium Level 139, Potassium Level 3.2L, Chloride Level 107, Carbon Dioxide Level 22, Anion Gap 10, Blood Urea Nitrogen 10, Creatinine 0.9, Estimat Glomerular Filtration Rate > 60, Glucose Level 82, Calcium Level 7.6L 02/06/20 05:19: POC Whole Blood Glucose [Pending] Height (Feet): 5 Height (Inches): 9.00 Weight (Pounds): 149 General Appearance: lethargic EENT: normal ENT inspection Neck: supple Cardiovascular: normal rate Respiratory/Chest: decreased breath sounds Abdomen: normal bowel sounds, non tender, soft Extremities: non-tender Assessment/Plan Status: unchanged Assessment/Plan: AMS dementia Anemia DM hyper CA elevated AST low albumin COPD RI HTN metastatic prostate CA intubated in the icu chart reviewed s/p trach plan PEG for today no family available for consent, will proceed with MD consent Paulino Bueno MD Feb 06, 2020 09:15
--- NOTE | 2020-02-06 09:23 | Anethesia Preoperative Eval ---
Anesthesia Pre-op PMH/ROS General Date of Evaluation: Feb 06, 2020 Time of Evaluation: 09:19 Anesthesiologist: Dylon ASA Score: ASA 4 Mallampati Score Class I : Soft palate, uvula, fauces, pillars visible Class II: Soft palate, uvula, fauces visible Class III: Soft palate, base of uvula visible Class IV: Only hard plate visible Mallampati Classification: Class II Surgeon: Ximena Diagnosis: Dysphagia Surgical Procedure: PEG tube placement Anesthesia History: none Family History: no anesthesia problems Allergies: Coded Allergies: No Known Allergies (Unverified , 03/18/19) Medications: see eMAR Patient NPO?: Yes NPO Date: Feb 05, 2020 NPO Time: 00:01 Past Medical History Cardiovascular: Reports: HTN, CAD; Denies: [place], valve dz, arrhythmia, other Pulmonary: Reports: other - respiratory failure; Denies: asthma, COPD, DEYSI Gastrointestinal/Genitourinary: Reports: GERD, CRI; Denies: ESRD, other Neurologic/Psychiatric: Reports: dementia, CVA; Denies: depression/anxiety, TIA, other Endocrine: Reports: hypothyroidism; Denies: DM, steroids, other HEENT: Denies: cataract (L), cataract (R), glaucoma, RENO-SPARKS (L), RENO-SPARKS (R), other Hematology/Immune: Reports: anemia - of chronic d-s; Denies: DVT, bleeding disorder, other Musculoskeletal/Integumentary: Reports: other - contructed; Denies: OA, RA, DJD, DDD, edema PMH Narrative: as above PSxH Narrative: see H&P Anesthesia Pre-op Phys. Exam Physician Exam Last Vital Signs Date Time Temp Pulse Resp B/P (MAP) Pulse Ox O2 Delivery O2 Flow Rate FiO2 02/06/20 09:00 86 17 103/63 (76) 100 02/06/20 08:00 Mechanical Ventilator 02/06/20 08:00 98.2 02/06/20 08:00 30 01/29/20 18:59 2.0 Constitutional: NAD, other Neurologic: other - unable to obtaqine Cardiovascular: RRR Respiratory: CTA Gastrointestinal: S/NT/ND Airway Exam Mallampati Score: Class III MO: limited Neck: tracheostomy in place ROM: limited Teeth: missing Dentures: no upper, no lower Anesthesia Pre-op A/P Labs Hematology Test 02/06/20 04:00 White Blood Count 9.9 K/UL (4.8-10.8) Red Blood Count 3.22 M/UL (4.70-6.10) L Hemoglobin 8.9 G/DL (14.2-18.0) L Hematocrit 26.2 % (42.0-52.0) L Mean Corpuscular Volume 81 FL (80-99) Mean Corpuscular Hemoglobin 27.7 PG (27.0-31.0) Mean Corpuscular Hemoglobin Concent 34.0 G/DL (32.0-36.0) Red Cell Distribution Width 21.2 % (11.6-14.8) H Platelet Count 311 K/UL (150-450) Mean Platelet Volume 6.9 FL (6.5-10.1) Neutrophils (%) (Auto) % (45.0-75.0) Lymphocytes (%) (Auto) % (20.0-45.0) Monocytes (%) (Auto) % (1.0-10.0) Eosinophils (%) (Auto) % (0.0-3.0) Basophils (%) (Auto) % (0.0-2.0) Neutrophils % (Manual) Pending Lymphocytes % (Manual) Pending Platelet Estimate Pending Platelet Morphology Pending Coagulation Test 02/06/20 04:00 Prothrombin Time 12.9 SEC (9.30-11.50) H Prothromb Time International Ratio 1.2 (0.9-1.1) H Activated Partial Thromboplast Time 29 SEC (23-33) Chemistry Test 02/05/20 13:29 02/05/20 17:15 02/06/20 00:21 02/06/20 04:00 POC Whole Blood Glucose 83 MG/DL (74-106) 90 MG/DL (74-106) 95 MG/DL (74-106) Sodium Level 139 MMOL/L (136-145) Potassium Level 3.2 MMOL/L (3.5-5.1) L Chloride Level 107 MMOL/L (98-107) Carbon Dioxide Level 22 MMOL/L (21-32) Anion Gap 10 mmol/L (5-15) Blood Urea Nitrogen 10 mg/dL (7-18) Creatinine 0.9 MG/DL (0.55-1.30) Estimat Glomerular Filtration Rate > 60 mL/min (>60) Glucose Level 82 MG/DL (74-106) Calcium Level 7.6 MG/DL (8.5-10.1) L Test 02/06/20 05:19 POC Whole Blood Glucose Pending Risk Assessment & Plan Assessment: ASA 4 Plan: MAC Status Change Before Surgery: No Pre-Antibiotics Drug: as scheduled Ian Osborne MD Feb 06, 2020 09:23
[2020-02-06] MEDS ORDERED: fentaNYL 100 mcg/2 mL IV ONE (09:30)
--- NOTE | 2020-02-06 09:30 | Pre-Procedure Note/Attestation ---
Pre-Procedure Note/Attestation Complete Prior to Procedure Planned Procedure: not applicable Procedure Narrative: peg Indications for Procedure Pre-Operative Diagnosis: dysphagia Attestation I attest that I discussed the nature of the procedure; its benefits; risks and complications; and alternatives (and the risks and benefits of such alternatives), prior to the procedure, with the patient (or the patient's legal sales representative [employer]). I attest that, if there was a reasonable possibility of needing a blood transfusion, the patient (or the patient's legal sales representative [employer]) was given the [facility] standardized written summary, pursuant to the [place] Blood Safety Act ([place] Health and Safety Code # 1645, as amended). I attest that I re-evaluated the patient just prior to the surgery and that there has been no change in the patient's H&P, except as documented below: Paulino Bueno MD Feb 06, 2020 09:30
--- NOTE | 2020-02-06 09:40 | General Progress Note ---
Subjective Constitutional: Reports: weakness Allergies: Coded Allergies: No Known Allergies (Unverified , 03/18/19) All Systems: reviewed and negative except above Subjective trach vent altered ng in icu Objective Last 24 Hour Vital Signs Date Time Temp Pulse Resp B/P (MAP) Pulse Ox O2 Delivery O2 Flow Rate FiO2 02/06/20 09:00 86 17 103/63 (76) 100 02/06/20 08:00 Mechanical Ventilator 02/06/20 08:00 98.2 90 22 113/66 (82) 100 02/06/20 08:00 30 02/06/20 07:17 86 20 30 02/06/20 07:00 87 16 114/66 (82) 100 02/06/20 06:00 86 18 107/56 (73) 100 02/06/20 05:00 90 17 124/70 (88) 100 02/06/20 04:00 98.2 91 21 116/66 (83) 100 02/06/20 04:00 30 02/06/20 04:00 Mechanical Ventilator Mechanical Ventilator 02/06/20 03:49 93 02/06/20 03:30 88 20 30 02/06/20 03:00 85 14 116/66 (83) 100 02/06/20 02:00 82 16 116/65 (82) 100 02/06/20 01:00 87 18 117/66 (83) 100 02/06/20 00:00 30 02/06/20 00:00 Mechanical Ventilator Mechanical Ventilator 02/06/20 00:00 98.2 82 18 114/60 (78) 100 02/05/20 23:21 84 02/05/20 23:12 85 21 30 02/05/20 23:00 83 16 115/63 (80) 100 02/05/20 22:00 82 17 115/68 (84) 100 02/05/20 21:00 79 17 118/66 (83) 100 02/05/20 20:00 98.4 78 16 126/73 (90) 100 02/05/20 20:00 30 02/05/20 20:00 Mechanical Ventilator Mechanical Ventilator 02/05/20 19:20 74 02/05/20 19:03 79 19 30 02/05/20 19:00 77 13 120/64 (82) 100 02/05/20 18:00 91 20 153/73 (99) 100 02/05/20 17:00 80 20 131/72 (91) 100 02/05/20 16:00 Mechanical Ventilator Mechanical Ventilator 02/05/20 16:00 30 02/05/20 16:00 81 02/05/20 16:00 98.1 80 19 129/78 (95) 99 02/05/20 15:30 79 19 135/72 (93) 99 02/05/20 15:19 83 24 30 02/05/20 15:00 86 19 118/68 (85) 98 02/05/20 14:45 86 19 120/70 (87) 98 02/05/20 14:30 87 20 119/67 (84) 98 02/05/20 14:15 88 19 121/68 (85) 97 02/05/20 14:00 88 19 124/68 (86) 97 02/05/20 13:30 89 18 114/68 (83) 96 02/05/20 13:21 92 21 96 02/05/20 13:15 90 16 117/68 (84) 96 02/05/20 13:00 92 21 134/70 (91) 96 02/05/20 12:45 95 18 142/77 (98) 100 02/05/20 12:30 98.3 102 13 140/71 (94) 98 02/05/20 12:30 30 02/05/20 12:30 101 12 100 02/05/20 12:20 97 13 125/68 (87) 100 02/05/20 12:20 108 02/05/20 12:00 30 02/05/20 12:00 Mechanical Ventilator Mechanical Ventilator 02/05/20 11:00 79 18 30 02/05/20 11:00 81 18 94/59 (71) 100 02/05/20 10:00 79 16 91/56 (68) 100 02/05/20 10:00 88 17 113/68 (83) 100 Intake and Output 02/05/20 02/06/20 19:00 07:00 Intake Total 1225.0 ml 916.5 ml Output Total 665 ml 1115 ml Balance 560.0 ml -198.5 ml Free Water 210 ml 60 ml IV Total 975.0 ml 856.5 ml Other 40 ml Output Urine Total 665 ml 515 ml Stool Total 600 ml Laboratory Tests 12/1/20 13:29: POC Whole Blood Glucose 83 02/05/20 17:15: POC Whole Blood Glucose 90 02/06/20 00:21: POC Whole Blood Glucose 95 02/06/20 04:00: White Blood Count 9.9, Red Blood Count 3.22L, Hemoglobin 8.9L, Hematocrit 26.2L, Mean Corpuscular Volume 81, Mean Corpuscular Hemoglobin 27.7, Mean Corpuscular Hemoglobin Concent 34.0, Red Cell Distribution Width 21.2H, Platelet Count 311, Mean Platelet Volume 6.9, Neutrophils (%) (Auto) , Lymphocytes (%) (Auto) , Monocytes (%) (Auto) , Eosinophils (%) (Auto) , Basophils (%) (Auto) , Differential Total Cells Counted 100, Neutrophils % (Manual) 82H, Lymphocytes % (Manual) 7L, Monocytes % (Manual) 11H, Eosinophils % (Manual) 0, Basophils % ( Manual) 0, Band Neutrophils 0, Platelet Estimate Adequate, Platelet Morphology Normal, Hypochromasia 1+, Anisocytosis 2+, Prothrombin Time 12.9H, Prothromb Time International Ratio 1.2H, Activated Partial Thromboplast Time 29, Sodium Level 139, Potassium Level 3.2L, Chloride Level 107, Carbon Dioxide Level 22, Anion Gap 10, Blood Urea Nitrogen 10, Creatinine 0.9, Estimat Glomerular Filtration Rate > 60, Glucose Level 82, Calcium Level 7.6L 02/06/20 05:19: POC Whole Blood Glucose [Pending] Height (Feet): 5 Height (Inches): 9.00 Weight (Pounds): 149 General Appearance: lethargic EENT: normal ENT inspection Neck: normal alignment Cardiovascular: normal peripheral pulses, normal rate, regular rhythm Respiratory/Chest: chest wall non-tender, lungs clear, normal breath sounds Abdomen: normal bowel sounds, non tender, soft Extremities: normal inspection Edema: no edema noted Arm (L), no edema noted Arm (R), no edema noted Leg (L), no edema noted Leg (R), no edema noted Pedal (L), no edema noted Pedal (R), no edema noted Generalized Neurologic: motor weakness Skin: normal pigmentation, warm/dry Assessment/Plan Problem List: (1) Anemia ICD Codes: D64.9 - Anemia, unspecified SNOMED: 175342940 (2) Paraplegia ICD Codes: G82.20 - Paraplegia, unspecified SNOMED: 64447298 (3) Diabetes ICD Codes: E11.9 - Type 2 diabetes mellitus without complications SNOMED: 56872887 (4) Weak ICD Codes: R53.1 - Weakness SNOMED: 73674220 (5) HTN (hypertension) ICD Codes: I10 - Essential (primary) hypertension SNOMED: 14317580 (6) ARF (acute renal failure) ICD Codes: N17.9 - Acute kidney failure, unspecified SNOMED: 84148190 (7) Altered level of consciousness ICD Codes: R40.4 - Transient alteration of awareness SNOMED: 7037374 (8) Dehydration ICD Codes: E86.0 - Dehydration SNOMED: 84232639 (9) Hypernatremia ICD Codes: E87.0 - Hyperosmolality and hypernatremia SNOMED: 581165069 Status: unchanged Assessment/Plan: vent abx transfuse prn gi/heme f/u cbc bmp am pending peg Farrukh Ríos DO Feb 06, 2020 09:40
--- NOTE | 2020-02-06 09:57 | Endoscopy Procedure Note ---
Endoscopy Procedure Note General Indication for Procedure: dysphagia Procedures Performed: EGD, PEG Operative Findings/Diagnosis: same Specimen: none Pt Tolerated Procedure Well: Yes Estimated Blood Loss: none Anesthesia Anesthesiologist: kingsley Anesthesia: MAC Inserted Devices Implant(s) used?: No GI Core Measures 50 yrs or older w/o bx or poly: Not Applicable 10yrs. F/U recommended: Not Applicable Paulino Bueno MD Feb 06, 2020 09:57
--- NOTE | 2020-02-06 10:00 | Immediate Post-Op Evaluation ---
Immediate Post-Op Evalulation Immediate Post-Op Evalulation Procedure: EGD PEG tube placement Date of Evaluation: Feb 06, 2020 Time of Evaluation: 09:59 IV Fluids: 100 Blood Products: none Estimated Blood Loss: min Urinary Output: none Blood Pressure Systolic: 116 Blood Pressure Diastolic: 58 Pulse Rate: 78 Respiratory Rate: 18 O2 Sat by Pulse Oximetry: 99 Temperature (Fahrenheit): 97.6 Pain Score (1-10): 1 Nausea: No Vomiting: No Complications none Patient Status: no response, ventilated, none Hydration Status: adequate Ian Osborne MD Feb 06, 2020 10:00
--- NOTE | 2020-02-06 10:47 | Pulmonology Progress Note ---
Subjective ROS Limited/Unobtainable: No Interval Events: S/p trach Constitutional: Reports: no symptoms HEENT: Repors: no symptoms Respiratory: Reports: no symptoms Cardiovascular: Reports: no symptoms Gastrointestinal/Abdominal: Reports: no symptoms Genitourinary: Reports: no symptoms Allergies: Coded Allergies: No Known Allergies (Unverified , 03/18/19) All Systems: reviewed and negative except above Objective Last 24 Hour Vital Signs Date Time Temp Pulse Resp B/P (MAP) Pulse Ox O2 Delivery O2 Flow Rate FiO2 02/06/20 10:00 90 16 108/66 (80) 100 02/06/20 10:00 78 18 99 02/06/20 09:00 86 17 103/63 (76) 100 02/06/20 08:00 Mechanical Ventilator 02/06/20 08:00 98.2 90 22 113/66 (82) 100 02/06/20 08:00 30 02/06/20 08:00 88 02/06/20 07:17 86 20 30 02/06/20 07:00 87 16 114/66 (82) 100 02/06/20 06:00 86 18 107/56 (73) 100 02/06/20 05:00 90 17 124/70 (88) 100 02/06/20 04:00 98.2 91 21 116/66 (83) 100 02/06/20 04:00 30 02/06/20 04:00 Mechanical Ventilator Mechanical Ventilator 02/06/20 03:49 93 02/06/20 03:30 88 20 30 02/06/20 03:00 85 14 116/66 (83) 100 02/06/20 02:00 82 16 116/65 (82) 100 02/06/20 01:00 87 18 117/66 (83) 100 02/06/20 00:00 30 02/06/20 00:00 Mechanical Ventilator Mechanical Ventilator 02/06/20 00:00 98.2 82 18 114/60 (78) 100 02/05/20 23:21 84 02/05/20 23:12 85 21 30 02/05/20 23:00 83 16 115/63 (80) 100 02/05/20 22:00 82 17 115/68 (84) 100 02/05/20 21:00 79 17 118/66 (83) 100 02/05/20 20:00 98.4 78 16 126/73 (90) 100 02/05/20 20:00 30 02/05/20 20:00 Mechanical Ventilator Mechanical Ventilator 02/05/20 19:20 74 02/05/20 19:03 79 19 30 02/05/20 19:00 77 13 120/64 (82) 100 02/05/20 18:00 91 20 153/73 (99) 100 02/05/20 17:00 80 20 131/72 (91) 100 02/05/20 16:00 Mechanical Ventilator Mechanical Ventilator 02/05/20 16:00 30 02/05/20 16:00 81 02/05/20 16:00 98.1 80 19 129/78 (95) 99 02/05/20 15:30 79 19 135/72 (93) 99 02/05/20 15:19 83 24 30 02/05/20 15:00 86 19 118/68 (85) 98 02/05/20 14:45 86 19 120/70 (87) 98 02/05/20 14:30 87 20 119/67 (84) 98 02/05/20 14:15 88 19 121/68 (85) 97 02/05/20 14:00 88 19 124/68 (86) 97 02/05/20 13:30 89 18 114/68 (83) 96 02/05/20 13:21 92 21 96 02/05/20 13:15 90 16 117/68 (84) 96 02/05/20 13:00 92 21 134/70 (91) 96 02/05/20 12:45 95 18 142/77 (98) 100 02/05/20 12:30 98.3 102 13 140/71 (94) 98 02/05/20 12:30 30 02/05/20 12:30 101 12 100 02/05/20 12:20 97 13 125/68 (87) 100 02/05/20 12:20 108 02/05/20 12:00 30 02/05/20 12:00 Mechanical Ventilator Mechanical Ventilator 02/05/20 11:00 79 18 30 02/05/20 11:00 81 18 94/59 (71) 100 Intake and Output 02/05/20 02/06/20 19:00 07:00 Intake Total 1225.0 ml 916.5 ml Output Total 665 ml 1115 ml Balance 560.0 ml -198.5 ml Free Water 210 ml 60 ml IV Total 975.0 ml 856.5 ml Other 40 ml Output Urine Total 665 ml 515 ml Stool Total 600 ml General Appearance: no acute distress HEENT: normocephalic, status post trach Respiratory: chest wall non-tender, other - coarse rhonchi Cardiovascular: normal peripheral pulses, normal rate Abdomen: soft, non tender Extremities: other - edema in four extremities Microbiology Date/Time Source Procedure Growth Status 02/05/20 03:50 Blood Blood Culture - Preliminary NO GROWTH AFTER 24 HOURS Resulted Laboratory Tests 02/05/20 13:29: POC Whole Blood Glucose 83 02/05/20 17:15: POC Whole Blood Glucose 90 02/06/20 00:21: POC Whole Blood Glucose 95 02/06/20 04:00: White Blood Count 9.9, Red Blood Count 3.22L, Hemoglobin 8.9L, Hematocrit 26.2L, Mean Corpuscular Volume 81, Mean Corpuscular Hemoglobin 27.7, Mean Corpuscular Hemoglobin Concent 34.0, Red Cell Distribution Width 21.2H, Platelet Count 311, Mean Platelet Volume 6.9, Neutrophils (%) (Auto) , Lymphocytes (%) (Auto) , Monocytes (%) (Auto) , Eosinophils (%) (Auto) , Basophils (%) (Auto) , Differential Total Cells Counted 100, Neutrophils % (Manual) 82H, Lymphocytes % (Manual) 7L, Monocytes % (Manual) 11H, Eosinophils % (Manual) 0, Basophils % (Manual) 0, Band Neutrophils 0, Platelet Estimate Adequate, Platelet Morphology Normal, Hypochromasia 1+, Anisocytosis 2+, Prothrombin Time 12.9H, Prothromb Time International Ratio 1.2H, Activated Partial Thromboplast Time 29, Sodium Level 139, Potassium Level 3.2L, Chloride Level 107, Carbon Dioxide Level 22, Anion Gap 10, Blood Urea Nitrogen 10, Creatinine 0.9, Estimat Glomerular Filtration Rate > 60, Glucose Level 82, Calcium Level 7.6L 02/06/20 05:19: POC Whole Blood Glucose [Pending] Current Medications Medications (Trade) Dose Ordered Sig/Jesse Route PRN Reason Start Time Stop Time Status Last Admin Dose Admin Acetaminophen (Tylenol) 650 mg Q4H PRN NG Temp >100.5, mild pain 02/03/20 22:15 03/04/20 22:14 02/03/20 23:04 Bisacodyl (Dulcolax) 10 mg DAILY PRN RECTAL Constipation 01/05/20 20:15 04/04/20 20:14 Chlorhexidine Gluconate (Navya-Hex 2%) 1 applic DAILY@2000 TOPIC 01/11/20 20:00 04/10/20 19:59 02/05/20 20:00 Daptomycin 700 mg/ Sodium Chloride 55 ml @ 110 mls/hr Q24H IV 02/04/20 15:00 02/13/20 23:59 02/05/20 15:14 Dextrose (Dextrose 50%) 25 ml Q30M PRN IV Hypoglycemia 01/05/20 20:15 04/04/20 20:14 01/24/20 23:53 Dextrose (Dextrose 50%) 50 ml Q30M PRN IV Hypoglycemia 01/05/20 20:15 04/04/20 20:14 Dextrose/Sodium Chloride 1,000 ml @ 60 mls/hr [id number] IV 01/24/20 13:30 02/23/20 13:29 02/06/20 05:10 Lansoprazole (Prevacid) 30 mg Q12HR NG 01/28/20 21:00 02/27/20 20:59 02/06/20 09:00 Linaclotide (Linzess) 290 mcg BEFORE BREAKFAST ORAL 01/10/20 06:30 04/09/20 06:29 02/05/20 05:54 Loperamide HCl (Imodium) 2 mg Q6H PRN NG Diarrhea 01/27/20 15:45 02/26/20 15:44 01/27/20 17:58 Metoclopramide HCl (Reglan) 10 mg EVERY 6 HOURS NG 01/19/20 12:00 02/18/20 11:59 02/05/20 17:08 Metoclopramide HCl (Reglan) 10 mg Q6H PRN IVP Nausea & Vomiting 01/16/20 13:00 02/15/20 12:59 Midodrine (Pro-Amatine) 10 mg Q8HR NG 01/20/20 22:00 04/13/20 17:59 02/05/20 14:45 Ondansetron HCl (Zofran) 4 mg Q6H PRN IVP Nausea & Vomiting 01/10/20 06:30 02/09/20 06:29 Polyethylene Glycol (Miralax) 17 gm BEDTIME NG 01/11/20 21:00 02/08/20 20:59 01/29/20 20:39 Potassium Chloride 100 ml @ 100 mls/hr Q1H IVPB 02/06/20 07:00 02/06/20 10:59 02/06/20 10:37 Sennosides (Senokot) 8.6 mg QHS NG 01/11/20 21:00 02/11/20 20:59 02/04/20 21:10 Vitamin D (Vitamin D) 3,000 intlu DAILY GT 01/19/20 12:00 02/18/20 11:59 02/06/20 09:00 Assessment/Plan Assessment/Plan IMPRESSION: 1. Severe metabolic acidosis. Corrected; now has combined respiratory and metabolic alkalosis 2. Respiratory failure; now trach in place 3. Diarrhea. Resolved 4. Acute renal failure. Nephrology following; 5. Anemia; DISCUSSION: EGD and PEG postponed Remains obtunded Intubated Poor prognosis S/p trach 02/05/20 Recommend comfort care Daxa Infante Omar Syed MD Feb 06, 2020 10:47
--- NOTE | 2020-02-06 11:01 | Procedure Note ---
DATE OF PROCEDURE: 02/06/2020 SURGEON: Paulino Bueno MD. PROCEDURE: Upper endoscopy with PEG placement. ANESTHESIA: Per Dr. Osborne. INSTRUMENT: Olympus adult flexible upper endoscope. INDICATION: Dysphagia. REASON FOR PROCEDURE: The procedure, risks, benefits, and possible consequences, including hemorrhage, aspiration, perforation and infection, and alternative treatments, were explained to the patient/legal guardian by Dr. Paulino Bueno and the patient/legal guardian understood and accepted these risks. DESCRIPTION OF PROCEDURE: After informed consent was obtained and the patient was adequately sedated, Olympus upper endoscope was advanced from mouth into the second portion of the duodenum and retroflexion was performed in the stomach. Then under endoscopic guidance, under sterile condition, a 20-Martiniquais pull type of G-tube was successfully placed in the epigastric area. The distance from the tip of the tube to skin was about 3.5 cm in size. The patient tolerated the procedure very well without any complication. SUMMARY OF FINDINGS: Status post successful PEG placement. RECOMMENDATIONS: 1. Abdominal binder. 2. Elevate the head of the bed at all times. 3. G-tube flush. 4. G-tube care. 5. Start tube feeding later today. I want to thank, Dr. Farrukh Ríos, for this kind referral Paulino Bueno M.D. DR: Edel JOB#: [id number] CC: Farrukh Ríos D.O.
--- NOTE | 2020-02-06 11:02 | 48 Hour Post Anesthesia Eval ---
Post Anesthesia Evaluation Procedure: EGD PEG tube placement Date of Evaluation: Feb 06, 2020 Time of Evaluation: 11:01 Blood Pressure Systolic: 112 0: 64 Pulse Rate: 78 Respiratory Rate: 18 Temperature (Fahrenheit): 97.6 O2 Sat by Pulse Oximetry: 98 Airway: other - tracheostomy in place Nausea: No Vomiting: No Pain Intensity: 1 Hydration Status: adequate Cardiopulmonary Status: stable Mental Status/LOC: patient returned to baseline Follow-up Care/Observations: n/a Post-Anesthesia Complications: none Follow-up care needed: N/A Ian Osborne MD Feb 06, 2020 11:02
--- NOTE | 2020-02-06 14:12 | Nephrology Progress Note ---
Assessment/Plan Problem List: (1) ARF (acute renal failure) (2) Hypernatremia (3) Hypovolemic shock (4) Altered level of consciousness (5) Hypercalcemia (6) Hyperuricemia (7) Pelvic mass Assessment: Prostate cancer Assessment Acute renal failure Possible underlying chronic kidney failure Severe dehydration Hypernatremia indicative of severe water deficit Severe hyperuricemia, partly due to dehydration and renal failure Acute metabolic and toxic encephalopathy Mild, malnutrition Anemia Lactic acid, possible sepsis Hypercalcemia Plan February 05: Remains intubated on ventilator. Labs reviewed. Abnormal electrolytes addressed. February 04: Patient seen in ICU. Discussed with SELIN Hanks. Patient due for tracheostomy today. Stable from renal standpoint of view. February 03: Remains intubated on ventilator. Labs reviewed. Abnormal electrolytes addressed. Continue per consultants. February 02: Status quo. Labs reviewed. Abnormal electrolyte addressed. Discussed with SELIN Thomason. February 01: Remains intubated and on ventilator. Abnormal electrolytes addressed. Continue per consultants. January 31: Continues to be on ventilator. Labs reviewed. Abnormal electrolyte addressed. Continue per consultants. January 30: Patient remains intubated. On no pressors. Abnormal electrolyte addressed. Discussed with RN. Apparently due for PEG insertion tomorrow. Continue per consultants. January 29: Patient was coded late last night. Now in ICU intubated. Was on pressors for a short period of time. Is off pressors now. Labs reviewed. Abnormal electrolyte addressed. Continue per consultants. January 28: Labs reviewed. Abnormal electrolyte addressed. Continue per consultants. January 27: Labs reviewed. Abnormal electrolyte addressed. Low potassium low phosphorus and low magnesium replaced. Continue per consultants. January 26: No labs drawn today. Status quo. Continue per consultants. Will check renal parameters tomorrow. January 25: Renal parameters stable. On Venturi mask. Continue per current management. January 24: Renal parameters stable. On Venturi mask. Discussed with RN. Due for PEG insertion today. January 23: Stable from renal standpoint of view. On Venturi mask. Low magnesium addressed. Continue per consultants. January 22: Patient off pressors. Patient extubated. Labs reviewed. Renal parameters are stable. January 21: Patient on low-dose pressors. Remains hypotensive. Renal parameters stable. Weaning trial in process. Mental status remains poor. January 20: Patient in ICU. Intubated. Full code. Has advanced prostate cancer. On IV Lasix drip. Low magnesium and low phosphorus and low potassium noted and addressed. Continue per consultants. January 19: Patient in ICU. Intubated. Was coded yesterday. Labs reviewed. Medication list reviewed and adjusted. Continue per consultants. Patient full code. Prognosis poor. PSA over 2700 January 18: Labs reviewed. IV fluid discontinued. IV calcium dose decreased. Midodrine dose decreased. Reglan and Protonix changed to GT route. Vitamin D initiated. Continue to monitor renal parameters and calcium level. January 17: Labs reviewed. Abnormal electrolyte addressed. Continue per consultants. January 16: Patient now in telemetry. Labs pending. Continue to monitor renal parameters. Continue per consultants. January 15: Still in ICU. Doing well post extubation. Renal parameters improving. Not requiring any more dialysis treatment after the first dialysis treatment. Medications reviewed. Continue per consultants. January 14: Remains in ICU. Tolerating extubation. Labs reviewed. Abnormal electrolytes addressed. Serum creatinine lowering. Continue per current management. Stop Phos binders. Increase calcium IV. January 13: In ICU. Now extubated. Only dialyzed once. Urine output maintained. Serum creatinine down to 2.5. Patient has NG tube. Continue to monitor renal parameters. Continue per consultants. Abnormal electrolytes addressed. January 12: Remains in ICU. Intubated. Transfused yesterday. Abnormal electrolytes addressed. Dialyzed once January 10. Serum creatinine stable. Will adjust IV fluid. Monitor renal parameters. Dialysis as needed. Calcium gluconate IV ordered. Ionized calcium level ordered with tomorrow's labs. January 11: Patient in ICU. Intubated. On Levophed. Hemoglobin low. Due for transfusion. Electrolyte abnormalities noted and addressed. Patient was dialyzed yesterday. Will check lab tomorrow. Dialysis as needed. Discussed with SELIN Srivastava. January 10: Patient is doing poorly. Blood pressure low. ABG abnormal with metabolic acidosis. IV sodium bicarb given. Serum creatinine reno. Patient has acute renal failure. Nontunneled dialysis catheter replacement ordered.. Patient need life saving dialysis treatment SRINIVAS. January 09: Labs reviewed. IV D5 and a half with sodium bicarb initiated. Serum creatinine higher. Continue to monitor renal parameters. NG feeding was changed to Nepro. Patient remains full code. Poor prognosis. January 08: Labs reviewed. IV D5W discontinued. 500 cc 3% saline ordered. NG tube for feeding and for medications. Allopurinol dose increased. Continue to monitor renal parameters serum calcium and phosphorus. January 07: Labs reviewed. Serum calcium remains elevated. Uric acid still elevated. Will give pamidronate 60 mg IV piggyback once for hypercalcemia. Continue to monitor renal parameters. Continue D5W 150 cc an hour. Start Bicitra 30 cc p.o. every 6 hours. Add allopurinol D5W IV hydration Albumin bolus N.p.o. until able to take p.o. Antibiotics Monitor renal parameters monitor calcium, monitor uric acid Subjective ROS Limited/Unobtainable: Yes Objective Objective Last 24 Hour Vital Signs Date Time Temp Pulse Resp B/P (MAP) Pulse Ox O2 Delivery O2 Flow Rate FiO2 02/06/20 13:00 90 22 110/69 (83) 100 02/06/20 12:01 98.4 87 19 114/65 (81) 100 02/06/20 12:00 87 02/06/20 12:00 87 19 114/65 (81) 100 02/06/20 12:00 30 02/06/20 12:00 Mechanical Ventilator 02/06/20 11:41 87 22 30 02/06/20 11:02 78 18 98 02/06/20 11:00 88 21 98/58 (71) 95 02/06/20 10:00 90 16 108/66 (80) 100 02/06/20 10:00 78 18 99 02/06/20 09:00 86 17 103/63 (76) 100 02/06/20 08:00 Mechanical Ventilator 02/06/20 08:00 98.2 90 22 113/66 (82) 100 02/06/20 08:00 30 02/06/20 08:00 88 02/06/20 07:17 86 20 30 02/06/20 07:00 87 16 114/66 (82) 100 02/06/20 06:00 86 18 107/56 (73) 100 02/06/20 05:00 90 17 124/70 (88) 100 02/06/20 04:00 98.2 91 21 116/66 (83) 100 02/06/20 04:00 30 02/06/20 04:00 Mechanical Ventilator Mechanical Ventilator 02/06/20 03:49 93 02/06/20 03:30 88 20 30 02/06/20 03:00 85 14 116/66 (83) 100 02/06/20 02:00 82 16 116/65 (82) 100 02/06/20 01:00 87 18 117/66 (83) 100 02/06/20 00:00 30 02/06/20 00:00 Mechanical Ventilator Mechanical Ventilator 02/06/20 00:00 98.2 82 18 114/60 (78) 100 02/05/20 23:21 84 02/05/20 23:12 85 21 30 02/05/20 23:00 83 16 115/63 (80) 100 02/05/20 22:00 82 17 115/68 (84) 100 02/05/20 21:00 79 17 118/66 (83) 100 02/05/20 20:00 98.4 78 16 126/73 (90) 100 02/05/20 20:00 30 02/05/20 20:00 Mechanical Ventilator Mechanical Ventilator 02/05/20 19:20 74 02/05/20 19:03 79 19 30 02/05/20 19:00 77 13 120/64 (82) 100 02/05/20 18:00 91 20 153/73 (99) 100 02/05/20 17:00 80 20 131/72 (91) 100 02/05/20 16:00 Mechanical Ventilator Mechanical Ventilator 02/05/20 16:00 30 02/05/20 16:00 81 02/05/20 16:00 98.1 80 19 129/78 (95) 99 02/05/20 15:30 79 19 135/72 (93) 99 02/05/20 15:19 83 24 30 02/05/20 15:00 86 19 118/68 (85) 98 02/05/20 14:45 86 19 120/70 (87) 98 02/05/20 14:30 87 20 119/67 (84) 98 02/05/20 14:15 88 19 121/68 (85) 97 Intake and Output 02/05/20 02/06/20 19:00 07:00 Intake Total 1225.0 ml 916.5 ml Output Total 665 ml 1115 ml Balance 560.0 ml -198.5 ml Free Water 210 ml 60 ml IV Total 975.0 ml 856.5 ml Other 40 ml Output Urine Total 665 ml 515 ml Stool Total 600 ml Current Medications Medications (Trade) Dose Ordered Sig/Jesse Route PRN Reason Start Time Stop Time Status Last Admin Dose Admin Acetaminophen (Tylenol) 650 mg Q4H PRN NG Temp >100.5, mild pain 02/03/20 22:15 03/04/20 22:14 02/03/20 23:04 Bisacodyl (Dulcolax) 10 mg DAILY PRN RECTAL Constipation 01/05/20 20:15 04/04/20 20:14 Chlorhexidine Gluconate (Navya-Hex 2%) 1 applic DAILY@2000 TOPIC 01/11/20 20:00 04/10/20 19:59 02/05/20 20:00 Daptomycin 700 mg/ Sodium Chloride 55 ml @ 110 mls/hr Q24H IV 02/04/20 15:00 02/13/20 23:59 02/05/20 15:14 Dextrose (Dextrose 50%) 25 ml Q30M PRN IV Hypoglycemia 01/05/20 20:15 04/04/20 20:14 01/24/20 23:53 Dextrose (Dextrose 50%) 50 ml Q30M PRN IV Hypoglycemia 01/05/20 20:15 04/04/20 20:14 Dextrose/Sodium Chloride 1,000 ml @ 60 mls/hr [id number] IV 01/24/20 13:30 02/23/20 13:29 02/06/20 05:10 Lansoprazole (Prevacid) 30 mg Q12HR NG 01/28/20 21:00 02/27/20 20:59 02/06/20 09:00 Linaclotide (Linzess) 290 mcg BEFORE BREAKFAST ORAL 01/10/20 06:30 04/09/20 06:29 02/05/20 05:54 Loperamide HCl (Imodium) 2 mg Q6H PRN NG Diarrhea 01/27/20 15:45 02/26/20 15:44 01/27/20 17:58 Metoclopramide HCl (Reglan) 10 mg EVERY 6 HOURS NG 01/19/20 12:00 02/18/20 11:59 02/06/20 12:07 Metoclopramide HCl (Reglan) 10 mg Q6H PRN IVP Nausea & Vomiting 01/16/20 13:00 02/15/20 12:59 Midodrine (Pro-Amatine) 10 mg Q8HR NG 01/20/20 22:00 04/13/20 17:59 02/05/20 14:45 Ondansetron HCl (Zofran) 4 mg Q6H PRN IVP Nausea & Vomiting 01/10/20 06:30 02/09/20 06:29 Polyethylene Glycol (Miralax) 17 gm BEDTIME NG 01/11/20 21:00 02/08/20 20:59 01/29/20 20:39 Sennosides (Senokot) 8.6 mg QHS NG 01/11/20 21:00 02/11/20 20:59 02/04/20 21:10 Vitamin D (Vitamin D) 3,000 intlu DAILY GT 01/19/20 12:00 02/18/20 11:59 02/06/20 09:00 Laboratory Tests 02/05/20 17:15: POC Whole Blood Glucose 90 02/06/20 00:21: POC Whole Blood Glucose 95 02/06/20 04:00: White Blood Count 9.9, Red Blood Count 3.22L, Hemoglobin 8.9L, Hematocrit 26.2L, Mean Corpuscular Volume 81, Mean Corpuscular Hemoglobin 27.7, Mean Corpuscular Hemoglobin Concent 34.0, Red Cell Distribution Width 21.2H, Platelet Count 311, Mean Platelet Volume 6.9, Neutrophils (%) (Auto) , Lymphocytes (%) (Auto) , Monocytes (%) (Auto) , Eosinophils (%) (Auto) , Basophils (%) (Auto) , Differential Total Cells Counted 100, Neutrophils % (Manual) 82H, Lymphocytes % (Manual) 7L, Monocytes % (Manual) 11H, Eosinophils % (Manual) 0, Basophils % (Manual) 0, Band Neutrophils 0, Platelet Estimate Adequate, Platelet Morphology Normal, Hypochromasia 1+, Anisocytosis 2+, Prothrombin Time 12.9H, Prothromb Time International Ratio 1.2H, Activated Partial Thromboplast Time 29, Sodium Level 139, Potassium Level 3.2L, Chloride Level 107, Carbon Dioxide Level 22, Anion Gap 10, Blood Urea Nitrogen 10, Creatinine 0.9, Estimat Glomerular Filtration Rate > 60, Glucose Level 82, Calcium Level 7.6L 02/06/20 05:19: POC Whole Blood Glucose [Pending] Height (Feet): 5 Height (Inches): 9.00 Weight (Pounds): 149 General Appearance: no apparent distress Cardiovascular: tachycardia Respiratory/Chest: decreased breath sounds Abdomen: distended Dhiraj Biswas MD Feb 06, 2020 14:12
[2020-02-06] MEDS: DAPTOmycin 700 MG in NS 55 ML IV SCH (14:22)
--- NOTE | 2020-02-06 15:34 | Cardiac Electrophysiology PN ---
Assessment/Plan Assessment/Plan 1. Altered mental status due to severe dehydration in view of sodium of 160 and acute renal failure. On IV fluids and IV antibiotics. Ruled out for IA. 2. Septic shock, off levophed and on iv Abx On Midodrine 10 tid 3. History of CVA, off Plavix in view of hematuria. 4. Respiratory failure, Extubated 01/22 and reintubated 01/29/20 S/P Tracheostomy 5. Diabetes. 6. Acute renal failure. Cr 4.2. Had HD once only on 01/11/20. No more HD needed and Cr 1.2 7. Hematuria 8. Anemia with Hb 5.8 and coffee ground emesis. FU Dr Bueno 9. Shock liver with increase AST>2000 10. Metastatic prostate cancer -- w psa [id number] with a Large pelvic mass involving the prostate, bladder, seminal vesicles, presumably representing prostatic malignancy Severe right and moderate left hydronephrosis and bilateral hydroureter, due to ureteral obstruction by the above mass 11. Dysphagia,S/P PEG KARLO RN and Dr Biswas Subjective Subjective Coded 01/19 for respiratory failure followed by bradycardia and PEA. Extubated 01/23/20. S/P tracheostomy 02/05/20 and PEG 02/06/20 Objective Last 24 Hour Vital Signs Date Time Temp Pulse Resp B/P (MAP) Pulse Ox O2 Delivery O2 Flow Rate FiO2 02/06/20 15:00 88 18 113/66 (82) 100 02/06/20 14:00 94 12 146/93 (110) 100 02/06/20 13:00 90 22 110/69 (83) 100 02/06/20 12:01 98.4 87 19 114/65 (81) 100 02/06/20 12:00 87 02/06/20 12:00 87 19 114/65 (81) 100 02/06/20 12:00 30 02/06/20 12:00 Mechanical Ventilator 02/06/20 11:41 87 22 30 02/06/20 11:02 78 18 98 02/06/20 11:00 88 21 98/58 (71) 95 02/06/20 10:00 90 16 108/66 (80) 100 02/06/20 10:00 78 18 99 02/06/20 09:00 86 17 103/63 (76) 100 02/06/20 08:00 Mechanical Ventilator 02/06/20 08:00 98.2 90 22 113/66 (82) 100 02/06/20 08:00 30 02/06/20 08:00 88 02/06/20 07:17 86 20 30 02/06/20 07:00 87 16 114/66 (82) 100 02/06/20 06:00 86 18 107/56 (73) 100 02/06/20 05:00 90 17 124/70 (88) 100 02/06/20 04:00 98.2 91 21 116/66 (83) 100 02/06/20 04:00 30 02/06/20 04:00 Mechanical Ventilator Mechanical Ventilator 02/06/20 03:49 93 02/06/20 03:30 88 20 30 02/06/20 03:00 85 14 116/66 (83) 100 02/06/20 02:00 82 16 116/65 (82) 100 02/06/20 01:00 87 18 117/66 (83) 100 02/06/20 00:00 30 02/06/20 00:00 Mechanical Ventilator Mechanical Ventilator 02/06/20 00:00 98.2 82 18 114/60 (78) 100 02/05/20 23:21 84 02/05/20 23:12 85 21 30 02/05/20 23:00 83 16 115/63 (80) 100 02/05/20 22:00 82 17 115/68 (84) 100 02/05/20 21:00 79 17 118/66 (83) 100 02/05/20 20:00 98.4 78 16 126/73 (90) 100 02/05/20 20:00 30 02/05/20 20:00 Mechanical Ventilator Mechanical Ventilator 02/05/20 19:20 74 02/05/20 19:03 79 19 30 02/05/20 19:00 77 13 120/64 (82) 100 02/05/20 18:00 91 20 153/73 (99) 100 02/05/20 17:00 80 20 131/72 (91) 100 02/05/20 16:00 Mechanical Ventilator Mechanical Ventilator 02/05/20 16:00 30 02/05/20 16:00 81 02/05/20 16:00 98.1 80 19 129/78 (95) 99 Intake and Output 02/05/20 02/06/20 19:00 07:00 Intake Total 1225.0 ml 916.5 ml Output Total 665 ml 1115 ml Balance 560.0 ml -198.5 ml Free Water 210 ml 60 ml IV Total 975.0 ml 856.5 ml Other 40 ml Output Urine Total 665 ml 515 ml Stool Total 600 ml Laboratory Tests Test 02/05/20 17:15 02/06/20 00:21 02/06/20 04:00 02/06/20 05:19 POC Whole Blood Glucose 90 MG/DL (74-106) 95 MG/DL (74-106) Pending White Blood Count 9.9 K/UL (4.8-10.8) Red Blood Count 3.22 M/UL (4.70-6.10) L Hemoglobin 8.9 G/DL (14.2-18.0) L Hematocrit 26.2 % (42.0-52.0) L Mean Corpuscular Volume 81 FL (80-99) Mean Corpuscular Hemoglobin 27.7 PG (27.0-31.0) Mean Corpuscular Hemoglobin Concent 34.0 G/DL (32.0-36.0) Red Cell Distribution Width 21.2 % (11.6-14.8) H Platelet Count 311 K/UL (150-450) Mean Platelet Volume 6.9 FL (6.5-10.1) Neutrophils (%) (Auto) % (45.0-75.0) Lymphocytes (%) (Auto) % (20.0-45.0) Monocytes (%) (Auto) % (1.0-10.0) Eosinophils (%) (Auto) % (0.0-3.0) Basophils (%) (Auto) % (0.0-2.0) Differential Total Cells Counted 100 Neutrophils % (Manual) 82 % (45-75) H Lymphocytes % (Manual) 7 % (20-45) L Monocytes % (Manual) 11 % (1-10) H Eosinophils % (Manual) 0 % (0-3) Basophils % (Manual) 0 % (0-2) Band Neutrophils 0 % (0-8) Platelet Estimate Adequate Platelet Morphology Normal Hypochromasia 1+ Anisocytosis 2+ Prothrombin Time 12.9 SEC (9.30-11.50) H Prothromb Time International Ratio 1.2 (0.9-1.1) H Activated Partial Thromboplast Time 29 SEC (23-33) Sodium Level 139 MMOL/L (136-145) Potassium Level 3.2 MMOL/L (3.5-5.1) L Chloride Level 107 MMOL/L (98-107) Carbon Dioxide Level 22 MMOL/L (21-32) Anion Gap 10 mmol/L (5-15) Blood Urea Nitrogen 10 mg/dL (7-18) Creatinine 0.9 MG/DL (0.55-1.30) Estimat Glomerular Filtration Rate > 60 mL/min (>60) Glucose Level 82 MG/DL (74-106) Calcium Level 7.6 MG/DL (8.5-10.1) L Microbiology Date/Time Source Procedure Growth Status 02/05/20 03:50 Blood Blood Culture - Preliminary NO GROWTH AFTER 24 HOURS Resulted Objective HEAD AND NECK: Trach in place LUNGS: Coarse rhonchi. CARDIOVASCULAR: Regular S1 and S2 with no gallop. ABDOMEN: Soft.PEG in place EXTREMITIES: No pitting edema. Kevin Lopez MD Feb 06, 2020 15:34
--- NOTE | 2020-02-06 18:56 | Surgery Progress Note ---
Surgery Progress Note Subjective Procedure Performed Tracheostomy Symptoms: improved Additional Comments downgradede comfortable appearing trach stable no bleeding peg Objective Last 24 Hour Vital Signs Date Time Temp Pulse Resp B/P (MAP) Pulse Ox O2 Delivery O2 Flow Rate FiO2 02/06/20 18:43 79 21 30 02/06/20 16:44 88 02/06/20 16:00 98.5 84 18 121/75 (90) 100 02/06/20 16:00 30 02/06/20 16:00 Mechanical Ventilator 02/06/20 15:20 91 23 30 02/06/20 15:00 88 18 113/66 (82) 100 02/06/20 14:00 94 12 146/93 (110) 100 02/06/20 13:00 90 22 110/69 (83) 100 02/06/20 12:01 98.4 87 19 114/65 (81) 100 02/06/20 12:00 87 02/06/20 12:00 87 19 114/65 (81) 100 02/06/20 12:00 30 02/06/20 12:00 Mechanical Ventilator 02/06/20 11:41 87 22 30 02/06/20 11:02 78 18 98 02/06/20 11:00 88 21 98/58 (71) 95 02/06/20 10:00 90 16 108/66 (80) 100 02/06/20 10:00 78 18 99 02/06/20 09:00 86 17 103/63 (76) 100 02/06/20 08:00 Mechanical Ventilator 02/06/20 08:00 98.2 90 22 113/66 (82) 100 02/06/20 08:00 30 02/06/20 08:00 88 02/06/20 07:17 86 20 30 02/06/20 07:00 87 16 114/66 (82) 100 02/06/20 06:00 86 18 107/56 (73) 100 02/06/20 05:00 90 17 124/70 (88) 100 02/06/20 04:00 98.2 91 21 116/66 (83) 100 02/06/20 04:00 30 02/06/20 04:00 Mechanical Ventilator Mechanical Ventilator 02/06/20 03:49 93 02/06/20 03:30 88 20 30 02/06/20 03:00 85 14 116/66 (83) 100 02/06/20 02:00 82 16 116/65 (82) 100 02/06/20 01:00 87 18 117/66 (83) 100 02/06/20 00:00 30 02/06/20 00:00 Mechanical Ventilator Mechanical Ventilator 02/06/20 00:00 98.2 82 18 114/60 (78) 100 02/05/20 23:21 84 02/05/20 23:12 85 21 30 02/05/20 23:00 83 16 115/63 (80) 100 02/05/20 22:00 82 17 115/68 (84) 100 02/05/20 21:00 79 17 118/66 (83) 100 02/05/20 20:00 98.4 78 16 126/73 (90) 100 02/05/20 20:00 30 02/05/20 20:00 Mechanical Ventilator Mechanical Ventilator 02/05/20 19:20 74 02/05/20 19:03 79 19 30 02/05/20 19:00 77 13 120/64 (82) 100 I&O Intake and Output 02/05/20 02/06/20 19:00 07:00 Intake Total 1225.0 ml 916.5 ml Output Total 665 ml 1115 ml Balance 560.0 ml -198.5 ml Free Water 210 ml 60 ml IV Total 975.0 ml 856.5 ml Other 40 ml Output Urine Total 665 ml 515 ml Stool Total 600 ml Cardiovascular: RSR Respiratory: decreased breath sounds Abdomen: non-tender, present bowel sounds Extremities: no tenderness, no cyanosis Laboratory Tests Test 02/06/20 00:21 02/06/20 04:00 02/06/20 05:19 02/06/20 17:13 POC Whole Blood Glucose 95 MG/DL (74-106) Pending 70 MG/DL (74-106) L White Blood Count 9.9 K/UL (4.8-10.8) Red Blood Count 3.22 M/UL (4.70-6.10) L Hemoglobin 8.9 G/DL (14.2-18.0) L Hematocrit 26.2 % (42.0-52.0) L Mean Corpuscular Volume 81 FL (80-99) Mean Corpuscular Hemoglobin 27.7 PG (27.0-31.0) Mean Corpuscular Hemoglobin Concent 34.0 G/DL (32.0-36.0) Red Cell Distribution Width 21.2 % (11.6-14.8) H Platelet Count 311 K/UL (150-450) Mean Platelet Volume 6.9 FL (6.5-10.1) Neutrophils (%) (Auto) % (45.0-75.0) Lymphocytes (%) (Auto) % (20.0-45.0) Monocytes (%) (Auto) % (1.0-10.0) Eosinophils (%) (Auto) % (0.0-3.0) Basophils (%) (Auto) % (0.0-2.0) Differential Total Cells Counted 100 Neutrophils % (Manual) 82 % (45-75) H Lymphocytes % (Manual) 7 % (20-45) L Monocytes % (Manual) 11 % (1-10) H Eosinophils % (Manual) 0 % (0-3) Basophils % (Manual) 0 % (0-2) Band Neutrophils 0 % (0-8) Platelet Estimate Adequate Platelet Morphology Normal Hypochromasia 1+ Anisocytosis 2+ Prothrombin Time 12.9 SEC (9.30-11.50) H Prothromb Time International Ratio 1.2 (0.9-1.1) H Activated Partial Thromboplast Time 29 SEC (23-33) Sodium Level 139 MMOL/L (136-145) Potassium Level 3.2 MMOL/L (3.5-5.1) L Chloride Level 107 MMOL/L (98-107) Carbon Dioxide Level 22 MMOL/L (21-32) Anion Gap 10 mmol/L (5-15) Blood Urea Nitrogen 10 mg/dL (7-18) Creatinine 0.9 MG/DL (0.55-1.30) Estimat Glomerular Filtration Rate > 60 mL/min (>60) Glucose Level 82 MG/DL (74-106) Calcium Level 7.6 MG/DL (8.5-10.1) L Plan Problems: (1) Altered level of consciousness Assessment & Plan: weaning vent unsure if will be safe for extubation consider trach (2) Hypovolemic shock Assessment & Plan: resuscitation extubated monitor respiratory keep hob elevated supplemental O2 coded intubated in icu prognosis guarded ?code status change ?trach s/p trach 02/05/2020 Gallbladder demonstrates sludge. No stones, wall thickening, nor pericholecystic fluid. Patient unable to report Wilson's sign Common bile duct measures 3 mm in diameter. No intrahepatic biliary ductal dilatation. Liver demonstrates coarsened echogenicity and surface nodularity. It demonstrates multiple cysts. Portal vein and hepatic veins are patent. The pancreas demonstrates 3 hypoechoic lesions in the head and body, measuring approximately 5 mm in d iameter each. Spleen is unremarkable, poorly visualized. Left kidney measures 11.4 cm in length. Right kidney measures 11.3 cm length. Both kidneys demonstrate normal echogenicity. There is severe right and moderate left hydronephrosis. Echogenic foci are seen in the left renal sinus and collecting system. Bladder is empty, contains a Mathew catheter. Non-aneurysmal abdominal aorta . There are bilateral pleural effusions Impression: Bilateral right greater than left hydronephrosis, increased since prior study of 03/20/2019. Etiology not demonstrated Empty bladder with a Mathew catheter 3 hypoechoic lesions within the pancreatic head and body, each measuring about 5 mm. Appearance nonspecific. Recommend further evaluation with pancreas protocol MRI Bilateral pleural effusions Echogenic liver, consistent with hepatocellular disease. Surface likely nodularity raises concern for cirrhosis Gallbladder sludge. Negative for dilated bile ducts Probable nonobstructive left intrarenal calculi Multiple hepatic cysts (3) Lactic acid acidosis (4) Hypernatremia (5) Paraplegia (6) Anemia Assessment & Plan: no active bleeding noted no large hematoma dressings okay likely related to heme will monitor transfuse prbc with HD trend labs thank you (7) Diabetes (8) Weak (9) HTN (hypertension) (10) ARF (acute renal failure) (11) Hypercalcemia (12) Hyperuricemia (13) Dehydration (14) UTI (urinary tract infection) (15) Failure to thrive in adult Assessment & Plan: patient identified to have DTI on bilateral heels right with 5cm x 4cm area of dti not open no drainage no signs of infection left with 3cm x 2cm. pillow under leg optifoam dressings nutritional optimization will follow no acute surgery DAILY ESTIMATED NEEDS: Needs based on underweight, suspected wt loss, HD, CRITICAL CARE/ 57.6kg 25-33 kcals/kg 2294-3306 total kcals 1.2-2 g protein/kg 69-115 g total protein 25-30 mL/kg 5074-0572 total fluid mLs NUTRITION DIAGNOSIS: *Increased kcal and pro needs r/t underweight status, suspected significant wt loss as evidenced by pt @ 71% IBW w/ BMI 17.2, underweight per guidelines, w/ suspected signficant wt loss of 30lbs/19% in 10 months. * Swallowing difficulty R/T dysphagia, respiratory status as evidenced by s/p NGT insertion (01/08), now NPO, s/p code blue (01/10), orally intubated. CURRENT TF:NPO ENTERAL NUTRITION RECOMMENDATIONS: WHEN HEMODYNAMICALLY STABLE: Nepro @ 40ml/hr x 24 hrs to provide 960ml, 17 28kcal, 77g prot, 698ml free water WHEN HEMODYNAMICALLY STABLE AND MEDICALLY APPROPRIATE TO FEED: -> initiate TF @ 5ml/hr x 6hrs, advance slowly 5ml q 4-6 hrs as tolerated to goal rate -> HOB over 30 degrees/ water flush per MD WITHOUT HEMODYNAMIC STABILITY -> If medically appropriate to feed, rec trophic feeding of Nepro @ 5ml/hr x 24 hrs to maintain gut integrity (16) Pelvic mass Assessment & Plan: invasive pelvic mass likely prostate necrotic nodes likely spread recommend colonoscopy given invasion possible to rectum oncology input thank you There is a large pelvic mass which is cephalad to but inseparable from the prostate. This also is inseparable from the posterior wall of the bladder and there appears to be circumferential bladder wall thickening. This mass also appears to involve the seminal vesicles. This measures approximately 8.8 cm transverse by 10 cm craniocaudad by 7.4 cm AP. The periphery of this mass is very lobulated. The mass may also invade the adjacent rectum. There is bilateral iliac chain lymphadenopathy, with nodes measuring up to 3 cm in diameter. Some of these nodes are very low in attenuation indicating that they are necrotic. There is also retroperitoneal lymphadenopathy. There is severe right and moderate left hydronephrosis and bilateral hydroureter. The dilated ureters terminate at the level of the mass. No intrinsic renal parenchymal abnormality. The pancreas is unremarkable. No findings corresponding to the areas of low-attenuation described on prior sonogram are evident. No pancreatic ductal dilatation is evident. The liver demonstrates multiple cysts. The gallbladder, bile ducts, spleen, adrenals are unremarkable. The bones demonstrate diffuse involvement with multiple mixed osteolytic/osteosclerotic lesions, mostly sclerotic component predominating. There is a right groin dialysis catheter in place, tip at the level of the iliac venous confluence. There is a nasogastric tube,, tip in the stomach. There is a Mathew catheter. There is a rectal tube lying outside the patient with the balloon in flated within the inner gluteal fold. There are bilateral pleural effusions. There is compressive atelectasis of most if not all of both lower lobes. 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 Compressive atelectasis of most of not all of both lower lobes Other findings as noted, including multiple liver cysts Lázaro Jenkins Feb 06, 2020 18:56
[2020-02-06] MEDS ORDERED: Tubing Blood Filter IV ONE (20:38)
[2020-02-06] MEDS ORDERED: D5 1/2NS 1000ml IV ONE (20:38)
[2020-02-06] MEDS ORDERED: NS 275ml ONE (20:38)
[2020-02-06] MEDS ORDERED: Tubing IV Secondary IV ONE (20:38)
[2020-02-06] MEDS: Dyna-Hex 2% Top Sol 2oz TOPIC SCH (20:45)
[2020-02-06] MEDS: Miralax 17gm pkt NG SCH (20:45)
[2020-02-06] MEDS: Sennosides 8.6mg tab NG SCH (20:46)
[2020-02-06] MEDS ORDERED: Acetaminophen 650mg/20.3ml GT PRN (23:45)
[2020-02-07] VITALS: BP 128/81
[2020-02-07] MEDS: Metoclopramide 10mg/10ml Liq GT SCH ×4 (00:21→18:19)
[2020-02-07 04:00] VITALS: BP 127/76
[2020-02-07 05:39] LABS: ALANINE AMINOTRANSFERASE 17 U/L (12-78); ALBUMIN 1.6 G/DL (3.4-5.0); ALBUMIN/GLOBULIN RATIO 0.4 (1.0-2.7); ALKALINE PHOSPHATASE 229 U/L (46-116); ASPARTATE AMINO TRANSFERASE 35 U/L (15-37); BILIRUBIN,TOTAL 0.3 MG/DL (0.2-1.0); BLOOD UREA NITROGEN 7 mg/dL (7-18); CALCIUM 7.6 MG/DL (8.5-10.1); CARBON DIOXIDE 18 MMOL/L (21-32); CHLORIDE 107 MMOL/L (98-107); CREATININE 0.9 MG/DL (0.55-1.30); POTASSIUM 3.6 MMOL/L (3.5-5.1); SODIUM 138 MMOL/L (136-145)
[2020-02-07] MEDS: Midodrine 10mg tab GT SCH ×3 (05:54→22:00)
[2020-02-07 06:14] LABS: HEMOGLOBIN 8.8 G/DL (14.2-18.0); MEAN CORPUSCULAR VOLUME 81 FL (80-99); PLATELET COUNT 335 K/UL (150-450); RED CELL DISTRIBUTION WIDTH 20.8 % (11.6-14.8); WHITE BLOOD COUNT 10.3 K/UL (4.8-10.8)
--- NOTE | 2020-02-07 06:38 | Hematology/Onc Progress Note ---
Assessment/Plan Assessment/Plan Assessment/Recs # Metastatic prostate cancer -- w psa 2741, has a Large pelvic mass as described involving the prostate, bladder, seminal vesicles, presumably representing prostatic malignancy --> CT Evidence of disseminated malignancy, with extensive lymphadenopathy of and evidenc of diffuse osseous metastases Severe right and moderate left hydronephrosis and bilateral hydroureter, due to ureteral obstruction by the above mass --> tumor markers ordered, psa 2741 --> after above reviewed, consider further biopsy of prostate with uro as needed # Pancytopenia with initially Anemia due to underlying chronic medical issues, multifactorial v Gi bleed v malignancy --> Anemia workup has been ordered, rule out gi bleed --> No evidence of hemolysis is noted, peripheral smear has been reviewed. --> Hgb goal >7. Transfuse prn. --> Epogen or iron at this time is not particularly indicated --> Medications have been reviewed --> low threshold for gi evaluation in case has occult + --> hgb 10-->9.7-->9.2->10-->8.6-->7.7-->5-->8.3->9.3->7.8-->8.2-->8.1-->9.3-->9.9->10-> 7.5->8.2 --> 8 flow cytometry ordered bc of nucleated cells on smear-->neg --> wbc 5-->4-->3.9-->4 --> plt 150-->98-->82-->51->49-->46-->50-->68-->88-->109 --> hep and hiv panel--NEG --> us abd-->shows 3 small lesions, requires further eval --> CT a/p reviewed # Multiple lesions noted in pancreas --> MRI abd ordered--> nondiagnostic --> CT of the abd reviewed # Respiratory failure --> s/p vent --> trach 02/04 scheduled # Protein caloric malnutrition --> daily calorie counts --> daily weights --> mirtazapine started # Acute renal failure --> continue on ivfs --> as per renal # Hypokalemia --> replete with K # Severe dehydration --> ivfs ongoing # Respiratory failure --> s/p intubation # Hypernatremia indicative of severe water deficit # Severe hyperuricemia, partly due to dehydration and renal failure # Acute metabolic and toxic encephalopathy # Mild, malnutrition # Psych issues per psych # Lactic acid, possible sepsis # Dvt ppx heparin sq->Scds # Comfort care potentially The timing of this note does not necessarily reflect the time of the patient was seen. Greatly appreciate consultation. Subjective HEENT: Denies: no symptoms, eye pain, blurred vision, tearing, double vision, ear pain, ear discharge, nose pain, nose congestion, throat pain, throat swelling, mouth pain, mouth swelling, other Cardiovascular: Denies: no symptoms, chest pain, edema, irregular heart rate, lightheadedness, palpitations, syncope, other Respiratory: Denies: no symptoms, cough, shortness of breath, SOB with excertion, SOB at rest, sputum, wheezing, other Gastrointestinal/Abdominal: Denies: no symptoms, abdomen distended, abdominal pain, black stools, tarry stools, blood in stool, constipated, diarrhea, difficulty swallowing, nausea, poor appetite, poor fluid intake, rectal bleeding, vomiting, other Genitourinary: Denies: no symptoms, burning, discharge, frequency, flank pain, hematuria, incontinence, pain, urgency, other Neurologic/Psychiatric: Denies: no symptoms, anxiety, depressed, emotional problems, headache, numbness, paresthesia, pre-existing deficit, seizure, tingling, tremors, weakness, other Endocrine: Denies: no symptoms, excessive sweating, flushing, intolerance to cold, intolerance to heat, increased hunger, increased thirst, increased urine, unexplained weight gain, unexplained weight loss, other Hematologic/Lymphatic: Denies: no symptoms, anemia, easy bleeding, easy bruising, adenopathy, other Allergies: Coded Allergies: No Known Allergies (Unverified , 03/18/19) Subjective 01/07 meds noted, no bleeding, hgb 10, no hemolysis, hgb 10.1 01/08 labs reviewed, vi rn, no major events, no bleeding, hgb lower 01/09 labs noted, no bleeding, vi rn, no major changes, plt lower 01/10 did have epistaxis overnight, no bleeding, night sweats, epistaxis better 01/12 icu, remains on vent, levo, no bleeding, meds noted 01/13 remains in icu, no bleeding, on levo, no major changes 01/14 icu, is on 1l, restarints are off, no bleeding, no night sweats 01/15 icu, meds noted, with diarrhea, rectal tube reinserted, on nc 01/16 out of icu, no bleeding, meds reviewed, cbc ad bmp pending 01/17 unable to lay still for the mri, thus ct ordered, vi rn 01/19 hgb 6.9, no bleeding, no hemolysis, ct reviewed 01/20 obtunded, meds reviewed, hgb is better, in icu 01/21 obtunded, npo, labs hjave been reviewed, hgb 9.2 01/22 obtunded, in icu, no bleeding, plt 109 01/23 obtunded still icu, on venturimask, meds reviewed, labs noted 01/24 obtunded, in icu, labs reviewed, meds noted, wbc 4.1, plt 133 01/26 is out of the icu, no bleeding, meds noted, labs ordered 01/27 nonverbal, out of icu, on feedigs, no bleeding, labs reviewed 01/28 icu, nv, is on midrinone, linzess, ivf 01/29 icu, off levop, ngt restarted, meds noted 01/30 icu, with large bm, labs reviewed, no f/c, zosyn 01/31 icu, levo is on hold, no bleeding, abx, hgb 7.5 02/02 in icu, intubated, with ngt, no bleeding, labs noted 02/03 icu, labs are noted, remains intubated, to get 1unit prbc 02/04 vent/, trach to be done today, hgb much improved 8.9 02/05 is on vent, k was low, kcl was given iv, no bleeding 02/06 on vent, labs reviewed, no major events, no bleeding Objective Objective Current Medications Medications (Trade) Dose Ordered Sig/Jesse Route PRN Reason Start Time Stop Time Status Last Admin Dose Admin Acetaminophen (Tylenol) 650 mg Q4H PRN GT Temp >100.5, mild pain 02/06/20 23:45 03/04/20 22:14 Bisacodyl (Dulcolax) 10 mg DAILY PRN RECTAL Constipation 01/05/20 20:15 04/04/20 20:14 Hold Chlorhexidine Gluconate (Navya-Hex 2%) 1 applic DAILY@2000 TOPIC 01/11/20 20:00 04/10/20 19:59 Hold 02/06/20 20:45 Daptomycin 700 mg/ Sodium Chloride 55 ml @ 110 mls/hr Q24H IV 02/04/20 15:00 02/13/20 23:59 Hold 02/06/20 14:22 Dextrose (Dextrose 50%) 25 ml Q30M PRN IV Hypoglycemia 01/05/20 20:15 04/04/20 20:14 Hold 01/24/20 23:53 Dextrose (Dextrose 50%) 50 ml Q30M PRN IV Hypoglycemia 01/05/20 20:15 04/04/20 20:14 Hold Dextrose/Sodium Chloride 1,000 ml @ 60 mls/hr [id number] IV 01/24/20 13:30 02/23/20 13:29 Hold 02/06/20 22:17 Lansoprazole (Prevacid) 30 mg Q12HR GT 02/07/20 09:00 02/27/20 20:59 Linaclotide (Linzess) 290 mcg BEFORE BREAKFAST ORAL 01/10/20 06:30 04/09/20 06:29 Hold 02/05/20 05:54 Loperamide HCl (Imodium) 2 mg Q6H PRN GT Diarrhea 02/06/20 23:45 02/26/20 15:44 Metoclopramide HCl (Reglan) 10 mg EVERY 6 HOURS GT 02/07/20 00:00 02/18/20 11:59 02/07/20 05:54 Metoclopramide HCl (Reglan) 10 mg Q6H PRN IVP Nausea & Vomiting 01/16/20 13:00 02/15/20 12:59 Hold Midodrine (Pro-Amatine) 10 mg Q8HR GT 02/07/20 06:00 04/13/20 17:59 Ondansetron HCl (Zofran) 4 mg Q6H PRN IVP Nausea & Vomiting 01/10/20 06:30 02/09/20 06:29 Hold Polyethylene Glycol (Miralax) 17 gm BEDTIME GT 02/07/20 21:00 02/08/20 20:59 Sennosides (Senokot) 8.6 mg QHS GT 02/07/20 21:00 02/11/20 20:59 Vitamin D (Vitamin D) 3,000 intlu DAILY GT 01/19/20 12:00 02/18/20 11:59 Hold 02/06/20 09:00 Last 24 Hour Vital Signs Date Time Temp Pulse Resp B/P (MAP) Pulse Ox O2 Delivery O2 Flow Rate FiO2 02/07/20 04:00 Mechanical Ventilator 02/07/20 04:00 97.9 90 17 127/76 (93) 100 02/07/20 04:00 30 02/07/20 03:33 90 02/07/20 03:06 92 22 30 02/07/20 00:00 Mechanical Ventilator 02/07/20 00:00 97.5 85 17 128/81 (97) 100 02/06/20 23:25 85 02/06/20 22:49 82 19 30 02/06/20 21:32 78 02/06/20 20:00 98.2 88 18 118/73 (88) 100 02/06/20 20:00 Mechanical Ventilator 02/06/20 20:00 30 02/06/20 18:43 79 21 30 02/06/20 16:44 88 02/06/20 16:00 98.5 84 18 121/75 (90) 100 02/06/20 16:00 30 02/06/20 16:00 Mechanical Ventilator 02/06/20 15:20 91 23 30 02/06/20 15:00 88 18 113/66 (82) 100 02/06/20 14:00 94 12 146/93 (110) 100 02/06/20 13:00 90 22 110/69 (83) 100 02/06/20 12:01 98.4 87 19 114/65 (81) 100 02/06/20 12:00 87 02/06/20 12:00 87 19 114/65 (81) 100 02/06/20 12:00 30 02/06/20 12:00 Mechanical Ventilator 02/06/20 11:41 87 22 30 02/06/20 11:02 78 18 98 02/06/20 11:00 88 21 98/58 (71) 95 02/06/20 10:00 90 16 108/66 (80) 100 02/06/20 10:00 78 18 99 02/06/20 09:00 86 17 103/63 (76) 100 02/06/20 08:00 Mechanical Ventilator 02/06/20 08:00 98.2 90 22 113/66 (82) 100 02/06/20 08:00 30 02/06/20 08:00 88 02/06/20 07:17 86 20 30 02/06/20 07:00 87 16 114/66 (82) 100 02/06/20 06:00 86 18 107/56 (73) 100 02/06/20 05:00 90 17 124/70 (88) 100 02/06/20 04:00 98.2 91 21 116/66 (83) 100 02/06/20 04:00 30 02/06/20 04:00 Mechanical Ventilator Mechanical Ventilator 02/06/20 03:49 93 02/06/20 03:30 88 20 30 02/06/20 03:00 85 14 116/66 (83) 100 02/06/20 02:00 82 16 116/65 (82) 100 02/06/20 01:00 87 18 117/66 (83) 100 02/06/20 00:00 30 02/06/20 00:00 Mechanical Ventilator Mechanical Ventilator 02/06/20 00:00 98.2 82 18 114/60 (78) 100 02/05/20 23:21 84 02/05/20 23:12 85 21 30 02/05/20 23:00 83 16 115/63 (80) 100 02/05/20 22:00 82 17 115/68 (84) 100 02/05/20 21:00 79 17 118/66 (83) 100 02/05/20 20:00 98.4 78 16 126/73 (90) 100 02/05/20 20:00 30 02/05/20 20:00 Mechanical Ventilator Mechanical Ventilator 02/05/20 19:20 74 02/05/20 19:03 79 19 30 02/05/20 19:00 77 13 120/64 (82) 100 02/05/20 18:00 91 20 153/73 (99) 100 02/05/20 17:00 80 20 131/72 (91) 100 02/05/20 16:00 Mechanical Ventilator Mechanical Ventilator 02/05/20 16:00 30 02/05/20 16:00 81 02/05/20 16:00 98.1 80 19 129/78 (95) 99 02/05/20 15:30 79 19 135/72 (93) 99 02/05/20 15:19 83 24 30 02/05/20 15:00 86 19 118/68 (85) 98 02/05/20 14:45 86 19 120/70 (87) 98 02/05/20 14:30 87 20 119/67 (84) 98 02/05/20 14:15 88 19 121/68 (85) 97 02/05/20 14:00 88 19 124/68 (86) 97 02/05/20 13:30 89 18 114/68 (83) 96 02/05/20 13:21 92 21 96 02/05/20 13:15 90 16 117/68 (84) 96 02/05/20 13:00 92 21 134/70 (91) 96 02/05/20 12:45 95 18 142/77 (98) 100 02/05/20 12:30 98.3 102 13 140/71 (94) 98 02/05/20 12:30 30 02/05/20 12:30 101 12 100 02/05/20 12:20 97 13 125/68 (87) 100 02/05/20 12:20 108 02/05/20 12:00 30 02/05/20 12:00 Mechanical Ventilator Mechanical Ventilator 02/05/20 11:00 79 18 30 02/05/20 11:00 81 18 94/59 (71) 100 02/05/20 10:00 79 16 91/56 (68) 100 02/05/20 10:00 88 17 113/68 (83) 100 02/05/20 09:00 88 17 113/68 (83) 100 02/05/20 08:00 98.6 83 18 137/74 (95) 100 02/05/20 08:00 Mechanical Ventilator Mechanical Ventilator 02/05/20 08:00 71 02/05/20 07:59 30 02/05/20 07:18 81 17 30 02/05/20 07:00 84 22 119/75 (90) 100 Intake and Output 02/06/20 02/07/20 19:00 07:00 Intake Total 982.5 ml 1008 ml Output Total 590 ml 1100 ml Balance 392.5 ml -92 ml Free Water 40 ml 100 ml IV Total 922.5 ml 643 ml Tube Feeding 265 ml Other 20 ml Output Urine Total 590 ml 1100 ml Labs Test 02/05/20 03:50 02/05/20 13:29 02/05/20 17:15 02/06/20 00:21 White Blood Count 9.2 K/UL (4.8-10.8) Red Blood Count 3.24 M/UL (4.70-6.10) Hemoglobin 8.9 G/DL (14.2-18.0) Hematocrit 26.0 % (42.0-52.0) Mean Corpuscular Volume 80 FL (80-99) Mean Corpuscular Hemoglobin 27.6 PG (27.0-31.0) Mean Corpuscular Hemoglobin Concent 34.3 G/DL (32.0-36.0) Red Cell Distribution Width 21.6 % (11.6-14.8) Platelet Count 288 K/UL (150-450) Mean Platelet Volume 6.7 FL (6.5-10.1) Neutrophils (%) (Auto) % (45.0-75.0) Lymphocytes (%) (Auto) % (20.0-45.0) Monocytes (%) (Auto) % (1.0-10.0) Eosinophils (%) (Auto) % (0.0-3.0) Basophils (%) (Auto) % (0.0-2.0) Differential Total Cells Counted 100 Neutrophils % (Manual) 87 % (45-75) Lymphocytes % (Manual) 3 % (20-45) Monocytes % (Manual) 8 % (1-10) Eosinophils % (Manual) 0 % (0-3) Basophils % (Manual) 0 % (0-2) Band Neutrophils 2 % (0-8) Platelet Estimate Adequate Platelet Morphology Normal Anisocytosis 2+ Prothrombin Time 12.1 SEC (9.30-11.50) Prothromb Time International Ratio 1.1 (0.9-1.1) Sodium Level 137 MMOL/L (136-145) Potassium Level 3.7 MMOL/L (3.5-5.1) Chloride Level 106 MMOL/L (98-107) Carbon Dioxide Level 20 MMOL/L (21-32) Anion Gap 11 mmol/L (5-15) Blood Urea Nitrogen 11 mg/dL (7-18) Creatinine 0.8 MG/DL (0.55-1.30) Estimat Glomerular Filtration Rate > 60 mL/min (>60) Glucose Level 93 MG/DL (74-106) Calcium Level 7.4 MG/DL (8.5-10.1) Phosphorus Level 2.7 MG/DL (2.5-4.9) Magnesium Level 1.8 MG/DL (1.8-2.4) Total Bilirubin 0.5 MG/DL (0.2-1.0) Direct Bilirubin 0.2 MG/DL (0.0-0.3) Aspartate Amino Transf (AST/SGOT) 50 U/L (15-37) Alanine Aminotransferase (ALT/SGPT) 29 U/L (12-78) Alkaline Phosphatase 214 U/L (46-116) Total Protein 5.6 G/DL (6.4-8.2) Albumin 1.6 G/DL (3.4-5.0) POC Whole Blood Glucose 83 MG/DL (74-106) 90 MG/DL (74-106) 95 MG/DL (74-106) Test 02/06/20 04:00 02/06/20 05:19 02/06/20 17:13 02/07/20 00:37 White Blood Count 9.9 K/UL (4.8-10.8) Red Blood Count 3.22 M/UL (4.70-6.10) Hemoglobin 8.9 G/DL (14.2-18.0) Hematocrit 26.2 % (42.0-52.0) Mean Corpuscular Volume 81 FL (80-99) Mean Corpuscular Hemoglobin 27.7 PG (27.0-31.0) Mean Corpuscular Hemoglobin Concent 34.0 G/DL (32.0-36.0) Red Cell Distribution Width 21.2 % (11.6-14.8) Platelet Count 311 K/UL (150-450) Mean Platelet Volume 6.9 FL (6.5-10.1) Neutrophils (%) (Auto) % (45.0-75.0) Lymphocytes (%) (Auto) % (20.0-45.0) Monocytes (%) (Auto) % (1.0-10.0) Eosinophils (%) (Auto) % (0.0-3.0) Basophils (%) (Auto) % (0.0-2.0) Differential Total Cells Counted 100 Neutrophils % (Manual) 82 % (45-75) Lymphocytes % (Manual) 7 % (20-45) Monocytes % (Manual) 11 % (1-10) Eosinophils % (Manual) 0 % (0-3) Basophils % (Manual) 0 % (0-2) Band Neutrophils 0 % (0-8) Platelet Estimate Adequate Platelet Morphology Normal Hypochromasia 1+ Anisocytosis 2+ Prothrombin Time 12.9 SEC (9.30-11.50) Prothromb Time International Ratio 1.2 (0.9-1.1) Activated Partial Thromboplast Time 29 SEC (23-33) Sodium Level 139 MMOL/L (136-145) Potassium Level 3.2 MMOL/L (3.5-5.1) Chloride Level 107 MMOL/L (98-107) Carbon Dioxide Level 22 MMOL/L (21-32) Anion Gap 10 mmol/L (5-15) Blood Urea Nitrogen 10 mg/dL (7-18) Creatinine 0.9 MG/DL (0.55-1.30) Estimat Glomerular Filtration Rate > 60 mL/min (>60) Glucose Level 82 MG/DL (74-106) Calcium Level 7.6 MG/DL (8.5-10.1) POC Whole Blood Glucose 70 MG/DL (74-106) 86 MG/DL (74-106) Test 02/07/20 03:00 02/07/20 05:51 Sodium Level 138 MMOL/L (136-145) Potassium Level 3.6 MMOL/L (3.5-5.1) Chloride Level 107 MMOL/L (98-107) Carbon Dioxide Level 18 MMOL/L (21-32) Blood Urea Nitrogen 7 mg/dL (7-18) Creatinine 0.9 MG/DL (0.55-1.30) Estimat Glomerular Filtration Rate > 60 mL/min (>60) Glucose Level 98 MG/DL (74-106) Calcium Level 7.6 MG/DL (8.5-10.1) Total Bilirubin 0.3 MG/DL (0.2-1.0) Aspartate Amino Transf (AST/SGOT) 35 U/L (15-37) Alanine Aminotransferase (ALT/SGPT) 17 U/L (12-78) Alkaline Phosphatase 229 U/L (46-116) Total Protein 5.6 G/DL (6.4-8.2) Albumin 1.6 G/DL (3.4-5.0) Globulin 4.0 g/dL Albumin/Globulin Ratio 0.4 (1.0-2.7) POC Whole Blood Glucose 87 MG/DL (74-106) Height (Feet): 5 Height (Inches): 9.00 Weight (Pounds): 149 Objective PE: Vitals: reviewed General Appearance: NAD HEENT: normocephalic, atraumatic Neck: non-tender, normal alignment Respiratory/Chest: nromal breath sounds bilaterally Cardiovascular/Chest: normal peripheral pulses, normal rate Abdomen: normal bowel sounds, soft, nontender Extremities: normal range of motion Samuel Son MD Feb 07, 2020 06:38
[2020-02-07 08:00] VITALS: BP 137/83
--- NOTE | 2020-02-07 08:06 | Infectious Diseases Prog Note ---
Assessment/Plan 69yo M with: VRE bacteremia, most likely 2/2 HD cath placed 01/10 01/29 BCx 1/2 + VRE 01/31 BCx NTD (prior to started abx for VRE) 02/01 Cath tip cx +VRE 02/01 Resp cx +P.mirabilis (S-CTX) & MSSA 02/03 Daptomycin started 02/04 BCx NTD Recurrent resp failure, most likely 2/2 increased volume, vascular congestion, pleural effusion, less likely 2/2 infection CODE BLUE 01/28, r/o infection Large L pleural effusion 01/28 CXR: Enlarged and now quite large left pleural effusion. Increasing interstitial congestion. Stable right pleural effusion 01/29 BCx 03/08 + VRE Shock- likely combination septic and metabolic derangements- SP Probable UTI -01/10 u/a wbc 60-80, nit neg, leuk +3; ucx Neg -Bcx NTD Probable PNA -01/12 CXR: No significant change in bilateral patchy pulmondary opacities, concerning for pneumonia versus edemaq. Small bilateral pleural effusions. -01/10 CXR: Bilateral interstitial and airspace infiltrates versus edema persists. sp cx MRSA (S Vancomycin, bactrim, tetracycline) COVID19 neg -01/04 rapid COVID PCR neg x1 influenza PCR neg CXR: Mild interstitial vascular prominence. No focal infiltrate or consolidation. 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 Etiology not demonstrated. Empty bladder with a Mathew catheter. 3 hypoechoic lesions within the pancreatic head and body, each measuring about 5 mm. Appearance nonspecific. Bilateral pleural effusions. Echogenic liver, consistent with hepatocellular disease. Surface likely nodularity raises concern for cirrhosis. Gallbladder sludge. Negative for dilated bile ducts. Probable nonobstructive left intrarenal calculi. Multiple hepatic cysts Acute on chronic encephalopathy -CT head: 1. Markedly limited, near nondiagnostic evaluation due to motion artifact. Grossly, age-related changes and small vessel disease of aging are noted. Again grossly, no acute intracranial pathology is detected. If there is a high degree of concern or if there is concern for subtle abnormalities, magnetic resonance imaging of the brain with diffusion-weighted sequences should be performed, due to the markedly limited nature of the current study. Close clinical correlation is necessary. HTN COPD DM2 paraplegia Dementia non verbal NH resident (elan mora) Plan: Cont daptomycin #4/10 for transient VRE bacteremia (02/03 CK =49), end date of abx to be 02/12 F/u repeat BCx 02/04, NTD -02/05 SP Zosyn #7 for possible pna during Code blue -01/18 SP vanco IV #7 -01/16 SP Cefepime #4 -01/13 SP Zosyn #4 -01/06 SP Ceftriaxone #2 -01/04 Sp IV Vancomycin x1, Cefepime x1 -f/u cx -Monitor CBC/CMP, temperatures -Renal, cards f/u -aspiration precautions D/w RN Thank you for consulting [facility]. Will continue to follow along with you. Subjective Allergies: Coded Allergies: No Known Allergies (Unverified , 03/18/19) AF WBC 10.3 NAD on vent on floor now Objective Last 24 Hour Vital Signs Date Time Temp Pulse Resp B/P (MAP) Pulse Ox O2 Delivery O2 Flow Rate FiO2 02/07/20 07:10 101 22 30 02/07/20 04:00 Mechanical Ventilator 02/07/20 04:00 97.9 90 17 127/76 (93) 100 02/07/20 04:00 30 02/07/20 03:33 90 02/07/20 03:06 92 22 30 02/07/20 00:00 Mechanical Ventilator 02/07/20 00:00 97.5 85 17 128/81 (97) 100 02/06/20 23:25 85 02/06/20 22:49 82 19 30 02/06/20 21:32 78 02/06/20 20:00 98.2 88 18 118/73 (88) 100 02/06/20 20:00 Mechanical Ventilator 02/06/20 20:00 30 02/06/20 18:43 79 21 30 02/06/20 16:44 88 02/06/20 16:00 98.5 84 18 121/75 (90) 100 02/06/20 16:00 30 02/06/20 16:00 Mechanical Ventilator 02/06/20 15:20 91 23 30 02/06/20 15:00 88 18 113/66 (82) 100 02/06/20 14:00 94 12 146/93 (110) 100 02/06/20 13:00 90 22 110/69 (83) 100 02/06/20 12:01 98.4 87 19 114/65 (81) 100 02/06/20 12:00 87 02/06/20 12:00 87 19 114/65 (81) 100 02/06/20 12:00 30 02/06/20 12:00 Mechanical Ventilator 02/06/20 11:41 87 22 30 02/06/20 11:02 78 18 98 02/06/20 11:00 88 21 98/58 (71) 95 02/06/20 10:00 90 16 108/66 (80) 100 02/06/20 10:00 78 18 99 02/06/20 09:00 86 17 103/63 (76) 100 Height (Feet): 5 Height (Inches): 9.00 Weight (Pounds): 149 Gen: NAD in bed HEENT: NCAT, +trach CV: RRR Pulm: BL chest rise on vent Abd: Soft, Non-distended, +PEG Ext: No c/c/e Neuro: Not interactive Lines: R IJ HD cath placed 02/01 Microbiology Date/Time Source Procedure Growth Status 02/05/20 03:50 Blood Blood Culture - Preliminary NO GROWTH AFTER 24 HOURS Resulted Laboratory Tests Test 02/06/20 17:13 02/07/20 00:37 02/07/20 03:00 02/07/20 05:51 POC Whole Blood Glucose 70 MG/DL (74-106) L 86 MG/DL (74-106) 87 MG/DL (74-106) White Blood Count 10.3 K/UL (4.8-10.8) Red Blood Count 3.20 M/UL (4.70-6.10) L Hemoglobin 8.8 G/DL (14.2-18.0) L Hematocrit 26.0 % (42.0-52.0) L Mean Corpuscular Volume 81 FL (80-99) Mean Corpuscular Hemoglobin 27.6 PG (27.0-31.0) Mean Corpuscular Hemoglobin Concent 33.9 G/DL (32.0-36.0) Red Cell Distribution Width 20.8 % (11.6-14.8) H Platelet Count 335 K/UL (150-450) Mean Platelet Volume 6.7 FL (6.5-10.1) Neutrophils (%) (Auto) % (45.0-75.0) Lymphocytes (%) (Auto) % (20.0-45.0) Monocytes (%) (Auto) % (1.0-10.0) Eosinophils (%) (Auto) % (0.0-3.0) Basophils (%) (Auto) % (0.0-2.0) Neutrophils % (Manual) Pending Lymphocytes % (Manual) Pending Platelet Estimate Pending Platelet Morphology Pending Sodium Level 138 MMOL/L (136-145) Potassium Level 3.6 MMOL/L (3.5-5.1) Chloride Level 107 MMOL/L (98-107) Carbon Dioxide Level 18 MMOL/L (21-32) L Blood Urea Nitrogen 7 mg/dL (7-18) Creatinine 0.9 MG/DL (0.55-1.30) Estimat Glomerular Filtration Rate > 60 mL/min (>60) Glucose Level 98 MG/DL (74-106) Calcium Level 7.6 MG/DL (8.5-10.1) L Total Bilirubin 0.3 MG/DL (0.2-1.0) Aspartate Amino Transf (AST/SGOT) 35 U/L (15-37) Alanine Aminotransferase (ALT/SGPT) 17 U/L (12-78) Alkaline Phosphatase 229 U/L (46-116) H Total Protein 5.6 G/DL (6.4-8.2) L Albumin 1.6 G/DL (3.4-5.0) L Globulin 4.0 g/dL Albumin/Globulin Ratio 0.4 (1.0-2.7) L Current Medications Medications (Trade) Dose Ordered Sig/Jesse Route PRN Reason Start Time Stop Time Status Last Admin Dose Admin Acetaminophen (Tylenol) 650 mg Q4H PRN GT Temp >100.5, mild pain 02/06/20 23:45 03/04/20 22:14 Bisacodyl (Dulcolax) 10 mg DAILY PRN RECTAL Constipation 01/05/20 20:15 04/04/20 20:14 Hold Chlorhexidine Gluconate (Navya-Hex 2%) 1 applic DAILY@2000 TOPIC 01/11/20 20:00 04/10/20 19:59 Hold 02/06/20 20:45 Daptomycin 700 mg/ Sodium Chloride 55 ml @ 110 mls/hr Q24H IV 02/04/20 15:00 02/13/20 23:59 Hold 02/06/20 14:22 Dextrose (Dextrose 50%) 25 ml Q30M PRN IV Hypoglycemia 01/05/20 20:15 04/04/20 20:14 Hold 01/24/20 23:53 Dextrose (Dextrose 50%) 50 ml Q30M PRN IV Hypoglycemia 01/05/20 20:15 04/04/20 20:14 Hold Dextrose/Sodium Chloride 1,000 ml @ 60 mls/hr [id number] IV 01/24/20 13:30 02/23/20 13:29 Hold 02/06/20 22:17 Lansoprazole (Prevacid) 30 mg Q12HR GT 02/07/20 09:00 02/27/20 20:59 Linaclotide (Linzess) 290 mcg BEFORE BREAKFAST ORAL 01/10/20 06:30 04/09/20 06:29 Hold 02/05/20 05:54 Loperamide HCl (Imodium) 2 mg Q6H PRN GT Diarrhea 02/06/20 23:45 02/26/20 15:44 Metoclopramide HCl (Reglan) 10 mg EVERY 6 HOURS GT 02/07/20 00:00 02/18/20 11:59 02/07/20 05:54 Metoclopramide HCl (Reglan) 10 mg Q6H PRN IVP Nausea & Vomiting 01/16/20 13:00 02/15/20 12:59 Hold Midodrine (Pro-Amatine) 10 mg Q8HR GT 02/07/20 06:00 04/13/20 17:59 Ondansetron HCl (Zofran) 4 mg Q6H PRN IVP Nausea & Vomiting 01/10/20 06:30 02/09/20 06:29 Hold Polyethylene Glycol (Miralax) 17 gm BEDTIME GT 02/07/20 21:00 02/08/20 20:59 Sennosides (Senokot) 8.6 mg QHS GT 02/07/20 21:00 02/11/20 20:59 Vitamin D (Vitamin D) 3,000 intlu DAILY GT 01/19/20 12:00 02/18/20 11:59 Hold 02/06/20 09:00 Nayana Ochoa M.D. Feb 07, 2020 08:06
[2020-02-07] MEDS ORDERED: DAPTOmycin 700 MG in NS 55 ML IV SCH (08:15)
[2020-02-07] MEDS: Vitamin D 1000 IU Tab GT SCH (08:53)
--- NOTE | 2020-02-07 10:44 | Nephrology Progress Note ---
Assessment/Plan Problem List: (1) ARF (acute renal failure) (2) Hypernatremia (3) Hypovolemic shock (4) Altered level of consciousness (5) Hypercalcemia (6) Hyperuricemia (7) Pelvic mass Assessment: Prostate cancer Assessment Acute renal failure Possible underlying chronic kidney failure Severe dehydration Hypernatremia indicative of severe water deficit Severe hyperuricemia, partly due to dehydration and renal failure Acute metabolic and toxic encephalopathy Mild, malnutrition Anemia Lactic acid, possible sepsis Hypercalcemia Plan February 06: Now trach and vent. Labs reviewed. Stable from renal standpoint of view. Continue per consultants. February 05: Remains intubated on ventilator. Labs reviewed. Abnormal electrolytes addressed. February 04: Patient seen in ICU. Discussed with SELIN Hanks. Patient due for tracheostomy today. Stable from renal standpoint of view. February 03: Remains intubated on ventilator. Labs reviewed. Abnormal electrolytes addressed. Continue per consultants. February 02: Status quo. Labs reviewed. Abnormal electrolyte addressed. Discussed with SELIN Thomason. February 01: Remains intubated and on ventilator. Abnormal electrolytes addressed. Continue per consultants. January 31: Continues to be on ventilator. Labs reviewed. Abnormal electro lyte addressed. Continue per consultants. January 30: Patient remains intubated. On no pressors. Abnormal electrolyte addressed. Discussed with RN. Apparently due for PEG insertion tomorrow. Continue per consultants. January 29: Patient was coded late last night. Now in ICU intubated. Was on pressors for a short period of time. Is off pressors now. Labs reviewed. Abnormal electrolyte addressed. Continue per consultants. January 28: Labs reviewed. Abnormal electrolyte addressed. Continue per consultants. January 27: Labs reviewed. Abnormal electrolyte addressed. Low potassium low phosphorus and low magnesium replaced. Continue per consultants. January 26: No labs drawn today. Status quo. Continue per consultants. Will check renal parameters tomorrow. January 25: Renal parameters stable. On Venturi mask. Continue per current management. January 24: Renal parameters stable. On Venturi mask. Discussed with RN. Due for PEG insertion today. January 23: Stable from renal standpoint of view. On Venturi mask. Low magnesium addressed. Continue per consultants. January 22: Patient off pressors. Patient extubated. Labs reviewed. Renal parameters are stable. January 21: Patient on low-dose pressors. Remains hypotensive. Renal para meters stable. Weaning trial in process. Mental status remains poor. January 20: Patient in ICU. Intubated. Full code. Has advanced prostate cancer. On IV Lasix drip. Low magnesium and low phosphorus and low potassium noted and addressed. Continue per consultants. January 19: Patient in ICU. Intubated. Was coded yesterday. Labs reviewed. Medication list reviewed and adjusted. Continue per consultants. Patient full code. Prognosis poor. PSA over 2700 January 18: Labs reviewed. IV fluid discontinued. IV calcium dose decreased. Midodrine dose decreased. Reglan and Protonix changed to GT route. Vitamin D initiated. Continue to monitor renal parameters and calcium level. January 17: Labs reviewed. Abnormal electrolyte addressed. Continue per consultants. January 16: Patient now in telemetry. Labs pending. Continue to monitor renal parameters. Continue per consultants. January 15: Still in ICU. Doing well post extubation. Renal parameters improving. Not requiring any more dialysis treatment after the first dialysis treatment. Medications reviewed. Continue per consultants. January 14: Remains in ICU. Tolerating extubation. Labs reviewed. Abnormal electrolytes addressed. Serum creatinine lowering. Continue per current management. Stop Phos binders. Increase calcium IV. January 13: In ICU. Now extubated. Only dialyzed once. Urine output maintained. Serum creatinine down to 2.5. Patient has NG tube. Continue to monitor renal parameters. Continue per consultants. Abnormal electrolytes addressed. January 12: Remains in ICU. Intubated. Transfused yesterday. Abnormal elect rolytes addressed. Dialyzed once January 10. Serum creatinine stable. Will adjust IV fluid. Monitor renal parameters. Dialysis as needed. Calcium gluconate IV ordered. Ionized calcium level ordered with tomorrow's labs. January 11: Patient in ICU. Intubated. On Levophed. Hemoglobin low. Due for transfusion. Electrolyte abnormalities noted and addressed. Patient was di alyzed yesterday. Will check lab tomorrow. Dialysis as needed. Discussed with SELIN Srivastava. January 10: Patient is doing poorly. Blood pressure low. ABG abnormal with metabolic acidosis. IV sodium bicarb given. Serum creatinine reno. Patient has acute renal failure. Nontunneled dialysis catheter replacement ordered.. Patient need life saving dialysis treatment SRINIVAS. January 09: Labs reviewed. IV D5 and a half with sodium bicarb initiated. Serum creatinine higher. Continue to monitor renal parameters. NG feeding was changed to Nepro. Patient remains full code. Poor prognosis. January 08: Labs reviewed. IV D5W discontinued. 500 cc 3% saline ordered. NG tube for feeding and for medications. Allopurinol dose increased. Continue to monitor renal parameters serum calcium and phosphorus. January 07: Labs reviewed. Serum calcium remains elevated. Uric acid still elevated. Will give pamidronate 60 mg IV piggyback once for hypercalcemia. Continue to monitor renal parameters. Continue D5W 150 cc an hour. Start Bicitra 30 cc p.o. every 6 hours. Add allopurinol D5W IV hydration Albumin bolus N.p.o. until able to take p.o. Antibiotics Monitor renal parameters monitor calcium, monitor uric acid Subjective ROS Limited/Unobtainable: Yes Objective Objective Last 24 Hour Vital Signs Date Time Temp Pulse Resp B/P (MAP) Pulse Ox O2 Delivery O2 Flow Rate FiO2 02/07/20 08:00 97.9 91 18 137/83 (101) 99 02/07/20 08:00 Mechanical Ventilator 02/07/20 08:00 30 02/07/20 07:10 101 22 30 02/07/20 04:00 Mechanical Ventilator 02/07/20 04:00 97.9 90 17 127/76 (93) 100 02/07/20 04:00 30 02/07/20 03:33 90 02/07/20 03:06 92 22 30 02/07/20 00:00 Mechanical Ventilator 02/07/20 00:00 97.5 85 17 128/81 (97) 100 02/06/20 23:25 85 02/06/20 22:49 82 19 30 02/06/20 21:32 78 02/06/20 20:00 98.2 88 18 118/73 (88) 100 02/06/20 20:00 Mechanical Ventilator 02/06/20 20:00 30 02/06/20 18:43 79 21 30 02/06/20 16:44 88 02/06/20 16:00 98.5 84 18 121/75 (90) 100 02/06/20 16:00 30 02/06/20 16:00 Mechanical Ventilator 02/06/20 15:20 91 23 30 02/06/20 15:00 88 18 113/66 (82) 100 02/06/20 14:00 94 12 146/93 (110) 100 02/06/20 13:00 90 22 110/69 (83) 100 02/06/20 12:01 98.4 87 19 114/65 (81) 100 02/06/20 12:00 87 02/06/20 12:00 87 19 114/65 (81) 100 02/06/20 12:00 30 02/06/20 12:00 Mechanical Ventilator 02/06/20 11:41 87 22 30 02/06/20 11:02 78 18 98 02/06/20 11:00 88 21 98/58 (71) 95 Intake and Output 02/06/20 02/07/20 19:00 07:00 Intake Total 982.5 ml 1108 ml Output Total 590 ml 1100 ml Balance 392.5 ml 8 ml Free Water 40 ml 100 ml IV Total 922.5 ml 703 ml Tube Feeding 305 ml Other 20 ml Output Urine Total 590 ml 1100 ml Current Medications Medications (Trade) Dose Ordered Sig/Jesse Route PRN Reason Start Time Stop Time Status Last Admin Dose Admin Acetaminophen (Tylenol) 650 mg Q4H PRN GT Temp >100.5, mild pain 02/06/20 23:45 03/04/20 22:14 Bisacodyl (Dulcolax) 10 mg DAILY PRN RECTAL Constipation 01/05/20 20:15 04/04/20 20:14 Chlorhexidine Gluconate (Navya-Hex 2%) 1 applic DAILY@2000 TOPIC 01/11/20 20:00 04/10/20 19:59 02/06/20 20:45 Daptomycin 700 mg/ Sodium Chloride 55 ml @ 110 mls/hr Q24H IV 02/04/20 15:00 02/13/20 23:59 02/06/20 14:22 Dextrose (Dextrose 50%) 25 ml Q30M PRN IV Hypoglycemia 01/05/20 20:15 04/04/20 20:14 01/24/20 23:53 Dextrose (Dextrose 50%) 50 ml Q30M PRN IV Hypoglycemia 01/05/20 20:15 04/04/20 20:14 Dextrose/Sodium Chloride 1,000 ml @ 60 mls/hr [id number] IV 01/24/20 13:30 02/23/20 13:29 02/06/20 22:17 Lansoprazole (Prevacid) 30 mg Q12HR GT 02/07/20 09:00 02/27/20 20:59 02/07/20 08:53 Linaclotide (Linzess) 290 mcg BEFORE BREAKFAST ORAL 01/10/20 06:30 04/09/20 06:29 02/05/20 05:54 Loperamide HCl (Imodium) 2 mg Q6H PRN GT Diarrhea 02/06/20 23:45 02/26/20 15:44 Metoclopramide HCl (Reglan) 10 mg EVERY 6 HOURS GT 02/07/20 00:00 02/18/20 11:59 02/07/20 05:54 Midodrine (Pro-Amatine) 10 mg Q8HR GT 02/07/20 06:00 04/13/20 17:59 Ondansetron HCl (Zofran) 4 mg Q6H PRN IVP Nausea & Vomiting 01/10/20 06:30 02/09/20 06:29 Polyethylene Glycol (Miralax) 17 gm BEDTIME GT 02/07/20 21:00 02/08/20 20:59 Sennosides (Senokot) 8.6 mg QHS GT 02/07/20 21:00 02/11/20 20:59 Vitamin D (Vitamin D) 3,000 intlu DAILY GT 01/19/20 12:00 02/18/20 11:59 02/07/20 08:53 Laboratory Tests 02/06/20 17:13: POC Whole Blood Glucose 70L 02/07/20 00:37: POC Whole Blood Glucose 86 02/07/20 03:00: White Blood Count 10.3, Red Blood Count 3.20L, Hemoglobin 8.8L, Hematocrit 26.0L , Mean Corpuscular Volume 81, Mean Corpuscular Hemoglobin 27.6, Mean Corpuscular Hemoglobin Concent 33.9, Red Cell Distribution Width 20.8H, Platelet Count 335, Mean Platelet Volume 6.7, Neutrophils (%) (Auto) , Lymphocytes (%) (Auto) , Monocytes (%) (Auto) , Eosinophils (%) (Auto) , Basophils (%) (Auto) , Differential Total Cells Counted 100, Neutrophils % (Manual) 84H, Lymphocytes % (Manual) 8L, Monocytes % (Manual) 7, Eosinophils % (Manual) 1, Basophils % (Manual) 0, Band Neutrophils 0, Platelet Estimate Adequate, Platelet Morphology Normal, Hypochromasia 1+, Anisocytosis 2+, Sodium Level 138, Potassium Level 3.6, Chloride Level 107, Carbon Dioxide Level 18L, Blood Urea Nitrogen 7, Creatinine 0.9, Estimat Glomerular Filtration Rate > 60, Glucose Level 98, Calcium Level 7.6L, Total Bilirubin 0.3, Aspartate Amino Transf (AST/SGOT) 35, Alanine Aminotransferase (ALT/SGPT) 17, Alkaline Phosphatase 229H, Total Protein 5.6L, Albumin 1.6L, Globulin 4.0, Albumin/Globulin Ratio 0.4L 02/07/20 05:51: POC Whole Blood Glucose 87 Height (Feet): 5 Height (Inches): 9.00 Weight (Pounds): 149 General Appearance: no apparent distress EENT: other - On mechanical ventilation Cardiovascular: tachycardia Respiratory/Chest: decreased breath sounds Abdomen: distended Dhiraj Biswas MD Feb 07, 2020 10:44
--- NOTE | 2020-02-07 10:57 | Pulmonology Progress Note ---
Subjective ROS Limited/Unobtainable: Yes Interval Events: S/p trach Constitutional: Reports: no symptoms HEENT: Repors: no symptoms Respiratory: Reports: no symptoms Cardiovascular: Reports: no symptoms Gastrointestinal/Abdominal: Reports: no symptoms Genitourinary: Reports: no symptoms Allergies: Coded Allergies: No Known Allergies (Unverified , 03/18/19) All Systems: reviewed and negative except above Objective Last 24 Hour Vital Signs Date Time Temp Pulse Resp B/P (MAP) Pulse Ox O2 Delivery O2 Flow Rate FiO2 02/07/20 08:00 97.9 91 18 137/83 (101) 99 02/07/20 08:00 Mechanical Ventilator 02/07/20 08:00 30 02/07/20 07:10 101 22 30 02/07/20 04:00 Mechanical Ventilator 02/07/20 04:00 97.9 90 17 127/76 (93) 100 02/07/20 04:00 30 02/07/20 03:33 90 02/07/20 03:06 92 22 30 02/07/20 00:00 Mechanical Ventilator 02/07/20 00:00 97.5 85 17 128/81 (97) 100 02/06/20 23:25 85 02/06/20 22:49 82 19 30 02/06/20 21:32 78 02/06/20 20:00 98.2 88 18 118/73 (88) 100 02/06/20 20:00 Mechanical Ventilator 02/06/20 20:00 30 02/06/20 18:43 79 21 30 02/06/20 16:44 88 02/06/20 16:00 98.5 84 18 121/75 (90) 100 02/06/20 16:00 30 02/06/20 16:00 Mechanical Ventilator 02/06/20 15:20 91 23 30 02/06/20 15:00 88 18 113/66 (82) 100 02/06/20 14:00 94 12 146/93 (110) 100 02/06/20 13:00 90 22 110/69 (83) 100 02/06/20 12:01 98.4 87 19 114/65 (81) 100 02/06/20 12:00 87 02/06/20 12:00 87 19 114/65 (81) 100 02/06/20 12:00 30 02/06/20 12:00 Mechanical Ventilator 02/06/20 11:41 87 22 30 02/06/20 11:02 78 18 98 02/06/20 11:00 88 21 98/58 (71) 95 Intake and Output 02/06/20 02/07/20 19:00 07:00 Intake Total 982.5 ml 1108 ml Output Total 590 ml 1100 ml Balance 392.5 ml 8 ml Free Water 40 ml 100 ml IV Total 922.5 ml 703 ml Tube Feeding 305 ml Other 20 ml Output Urine Total 590 ml 1100 ml General Appearance: no acute distress HEENT: normocephalic, status post trach Respiratory: chest wall non-tender, other - coarse rhonchi Cardiovascular: normal peripheral pulses, normal rate Abdomen: soft, non tender Extremities: other - edema in four extremities Microbiology Date/Time Source Procedure Growth Status 02/05/20 03:50 Blood Blood Culture - Preliminary NO GROWTH AFTER 48 HOURS Resulted Laboratory Tests 02/06/20 17:13: POC Whole Blood Glucose 70L 02/07/20 00:37: POC Whole Blood Glucose 86 02/07/20 03:00: White Blood Count 10.3, Red Blood Count 3.20L, Hemoglobin 8.8L, Hematocrit 26.0L , Mean Corpuscular Volume 81, Mean Corpuscular Hemoglobin 27.6, Mean Corpuscular Hemoglobin Concent 33.9, Red Cell Distribution Width 20.8H, Platelet Count 335, Mean Platelet Volume 6.7, Neutrophils (%) (Auto) , Lymphocytes (%) (Auto) , Monocytes (%) (Auto) , Eosinophils (%) (Auto) , Basophils (%) (Auto) , Differential Total Cells Counted 100, Neutrophils % (Manual) 84H, Lymphocytes % (Manual) 8L, Monocytes % (Manual) 7, Eosinophils % (Manual) 1, Basophils % (Manual) 0, Band Neutrophils 0, Platelet Estimate Adequate, Platelet Morphology Normal, Hypochromasia 1+, Anisocytosis 2+, Sodium Level 138, Potassium Level 3.6, Chloride Level 107, Carbon Dioxide Level 18L, Blood Urea Nitrogen 7, Creatinine 0.9, Estimat Glomerular Filtration Rate > 60, Glucose Level 98, Calcium Level 7.6L, Total Bilirubin 0.3, Aspartate Amino Transf (AST/SGOT) 35, Alanine Aminotransferase (ALT/SGPT) 17, Alkaline Phosphatase 229H, Total Protein 5.6L, Albumin 1.6L, Globulin 4.0, Albumin/Globulin Ratio 0.4L 02/07/20 05:51: POC Whole Blood Glucose 87 Current Medications Medications (Trade) Dose Ordered Sig/Jesse Route PRN Reason Start Time Stop Time Status Last Admin Dose Admin Acetaminophen (Tylenol) 650 mg Q4H PRN GT Temp >100.5, mild pain 02/06/20 23:45 03/04/20 22:14 Bisacodyl (Dulcolax) 10 mg DAILY PRN RECTAL Constipation 01/05/20 20:15 04/04/20 20:14 Chlorhexidine Gluconate (Navya-Hex 2%) 1 applic DAILY@2000 TOPIC 01/11/20 20:00 04/10/20 19:59 02/06/20 20:45 Daptomycin 700 mg/ Sodium Chloride 55 ml @ 110 mls/hr Q24H IV 02/04/20 15:00 02/13/20 23:59 02/06/20 14:22 Dextrose (Dextrose 50%) 25 ml Q30M PRN IV Hypoglycemia 01/05/20 20:15 04/04/20 20:14 01/24/20 23:53 Dextrose (Dextrose 50%) 50 ml Q30M PRN IV Hypoglycemia 01/05/20 20:15 04/04/20 20:14 Dextrose/Sodium Chloride 1,000 ml @ 60 mls/hr [id number] IV 01/24/20 13:30 02/23/20 13:29 02/06/20 22:17 Lansoprazole (Prevacid) 30 mg Q12HR GT 02/07/20 09:00 02/27/20 20:59 02/07/20 08:53 Linaclotide (Linzess) 290 mcg BEFORE BREAKFAST ORAL 01/10/20 06:30 04/09/20 06:29 02/05/20 05:54 Loperamide HCl (Imodium) 2 mg Q6H PRN GT Diarrhea 02/06/20 23:45 02/26/20 15:44 Metoclopramide HCl (Reglan) 10 mg EVERY 6 HOURS GT 02/07/20 00:00 02/18/20 11:59 02/07/20 05:54 Midodrine (Pro-Amatine) 10 mg Q8HR GT 02/07/20 06:00 2/21 17:59 Ondansetron HCl (Zofran) 4 mg Q6H PRN IVP Nausea & Vomiting 01/10/20 06:30 02/09/20 06:29 Polyethylene Glycol (Miralax) 17 gm BEDTIME GT 02/07/20 21:00 02/08/20 20:59 Sennosides (Senokot) 8.6 mg QHS GT 02/07/20 21:00 02/11/20 20:59 Vitamin D (Vitamin D) 3,000 intlu DAILY GT 01/19/20 12:00 02/18/20 11:59 02/07/20 08:53 Assessment/Plan Assessment/Plan IMPRESSION: 1. Severe metabolic acidosis. Corrected; now has combined respiratory and metabolic alkalosis 2. Respiratory failure; now trach in place 3. Diarrhea. Resolved 4. Acute renal failure. Nephrology following; 5. Anemia; DISCUSSION: Remains obtunded S/p trach begin placement efforts Poor prognosis Daxa Infante Omar Syed MD Feb 07, 2020 10:57
--- NOTE | 2020-02-07 11:03 | Surgery Progress Note ---
Surgery Progress Note Subjective Procedure Performed Tracheostomy Additional Comments no acute events Objective Last 24 Hour Vital Signs Date Time Temp Pulse Resp B/P (MAP) Pulse Ox O2 Delivery O2 Flow Rate FiO2 02/07/20 10:56 81 15 30 02/07/20 08:00 97.9 91 18 137/83 (101) 99 02/07/20 08:00 Mechanical Ventilator 02/07/20 08:00 30 02/07/20 07:10 101 22 30 02/07/20 04:00 Mechanical Ventilator 02/07/20 04:00 97.9 90 17 127/76 (93) 100 02/07/20 04:00 30 02/07/20 03:33 90 02/07/20 03:06 92 22 30 02/07/20 00:00 Mechanical Ventilator 02/07/20 00:00 97.5 85 17 128/81 (97) 100 02/06/20 23:25 85 02/06/20 22:49 82 19 30 02/06/20 21:32 78 02/06/20 20:00 98.2 88 18 118/73 (88) 100 02/06/20 20:00 Mechanical Ventilator 02/06/20 20:00 30 02/06/20 18:43 79 21 30 02/06/20 16:44 88 02/06/20 16:00 98.5 84 18 121/75 (90) 100 02/06/20 16:00 30 02/06/20 16:00 Mechanical Ventilator 02/06/20 15:20 91 23 30 02/06/20 15:00 88 18 113/66 (82) 100 02/06/20 14:00 94 12 146/93 (110) 100 02/06/20 13:00 90 22 110/69 (83) 100 02/06/20 12:01 98.4 87 19 114/65 (81) 100 02/06/20 12:00 87 02/06/20 12:00 87 19 114/65 (81) 100 02/06/20 12:00 30 02/06/20 12:00 Mechanical Ventilator 02/06/20 11:41 87 22 30 I&O Intake and Output 02/06/20 02/07/20 19:00 07:00 Intake Total 982.5 ml 1108 ml Output Total 590 ml 1100 ml Balance 392.5 ml 8 ml Free Water 40 ml 100 ml IV Total 922.5 ml 703 ml Tube Feeding 305 ml Other 20 ml Output Urine Total 590 ml 1100 ml Dressing: saturated Cardiovascular: RSR Respiratory: decreased breath sounds Abdomen: non-tender, present bowel sounds Extremities: no cyanosis, other Laboratory Tests Test 02/06/20 17:13 02/07/20 00:37 02/07/20 03:00 02/07/20 05:51 POC Whole Blood Glucose 70 MG/DL (74-106) L 86 MG/DL (74-106) 87 MG/DL (74-106) White Blood Count 10.3 K/UL (4.8-10.8) Red Blood Count 3.20 M/UL (4.70-6.10) L Hemoglobin 8.8 G/DL (14.2-18.0) L Hematocrit 26.0 % (42.0-52.0) L Mean Corpuscular Volume 81 FL (80-99) Mean Corpuscular Hemoglobin 27.6 PG (27.0-31.0) Mean Corpuscular Hemoglobin Concent 33.9 G/DL (32.0-36.0) Red Cell Distribution Width 20.8 % (11.6-14.8) H Platelet Count 335 K/UL (150-450) Mean Platelet Volume 6.7 FL (6.5-10.1) Neutrophils (%) (Auto) % (45.0-75.0) Lymphocytes (%) (Auto) % (20.0-45.0) Monocytes (%) (Auto) % (1.0-10.0) Eosinophils (%) (Auto) % (0.0-3.0) Basophils (%) (Auto) % (0.0-2.0) Differential Total Cells Counted 100 Neutrophils % (Manual) 84 % (45-75) H Lymphocytes % (Manual) 8 % (20-45) L Monocytes % (Manual) 7 % (1-10) Eosinophils % (Manual) 1 % (0-3) Basophils % (Manual) 0 % (0-2) Band Neutrophils 0 % (0-8) Platelet Estimate Adequate Platelet Morphology Normal Hypochromasia 1+ Anisocytosis 2+ Sodium Level 138 MMOL/L (136-145) Potassium Level 3.6 MMOL/L (3.5-5.1) Chloride Level 107 MMOL/L (98-107) Carbon Dioxide Level 18 MMOL/L (21-32) L Blood Urea Nitrogen 7 mg/dL (7-18) Creatinine 0.9 MG/DL (0.55-1.30) Estimat Glomerular Filtration Rate > 60 mL/min (>60) Glucose Level 98 MG/DL (74-106) Calcium Level 7.6 MG/DL (8.5-10.1) L Total Bilirubin 0.3 MG/DL (0.2-1.0) Aspartate Amino Transf (AST/SGOT) 35 U/L (15-37) Alanine Aminotransferase (ALT/SGPT) 17 U/L (12-78) Alkaline Phosphatase 229 U/L (46-116) H Total Protein 5.6 G/DL (6.4-8.2) L Albumin 1.6 G/DL (3.4-5.0) L Globulin 4.0 g/dL Albumin/Globulin Ratio 0.4 (1.0-2.7) L Plan Problems: (1) Altered level of consciousness Assessment & Plan: weaning vent unsure if will be safe for extubation consider trach (2) Hypovolemic shock Assessment & Plan: resuscitation extubated monitor respiratory keep hob elevated supplemental O2 coded intubated in icu prognosis guarded ?code status change ?trach s/p trach 02/05/2020 Gallbladder demonstrates sludge. No stones, wall thickening, nor pericholecystic fluid. Patient unable to report Wilson's sign Common bile duct measures 3 mm in diameter. No intrahepatic biliary ductal dilatation. Liver demonstrates coarsened echogenicity and surface nodularity. It demonstrates multiple cysts. Portal vein and hepatic veins are patent. The pancreas demonstrates 3 hypoechoic lesions in the head and body, measuring approximately 5 mm in d iameter each. Spleen is unremarkable, poorly visualized. Left kidney measures 11.4 cm in length. Right kidney measures 11.3 cm length. Both kidneys demonstrate normal echogenicity. There is severe right and moderate left hydronephrosis. Echogenic foci are seen in the left renal sinus and collecting system. Bladder is empty, contains a Mathew catheter. Non-aneurysmal abdominal aorta . There are bilateral pleural effusions Impression: Bilateral right greater than left hydronephrosis, increased since prior study of 03/20/2019. Etiology not demonstrated Empty bladder with a Mathew catheter 3 hypoechoic lesions within the pancreatic head and body, each measuring about 5 mm. Appearance nonspecific. Recommend further evaluation with pancreas protocol MRI Bilateral pleural effusions Echogenic liver, consistent with hepatocellular disease. Surface likely nodularity raises concern for cirrhosis Gallbladder sludge. Negative for dilated bile ducts Probable nonobstructive left intrarenal calculi Multiple hepatic cysts (3) Lactic acid acidosis (4) Hypernatremia (5) Paraplegia (6) Anemia Assessment & Plan: no active bleeding noted no large hematoma dressings okay likely related to heme will monitor transfuse prbc with HD trend labs thank you (7) Diabetes (8) Weak (9) HTN (hypertension) (10) ARF (acute renal failure) (11) Hypercalcemia (12) Hyperuricemia (13) Dehydration (14) UTI (urinary tract infection) (15) Failure to thrive in adult Assessment & Plan: patient identified to have DTI on bilateral heels right with 5cm x 4cm area of dti not open no drainage no signs of infection left with 3cm x 2cm. pillow under leg optifoam dressings nutritional optimization will follow no acute surgery DAILY ESTIMATED NEEDS: Needs based on underweight, suspected wt loss, HD, CRITICAL CARE/ 57.6kg 25-33 kcals/kg 2250-8401 total kcals 1.2-2 g protein/kg 69-115 g total protein 25-30 mL/kg 4574-3562 total fluid mLs NUTRITION DIAGNOSIS: *Increased kcal and pro needs r/t underweight status, suspected significant wt loss as evidenced by pt @ 71% IBW w/ BMI 17.2, underweight per guidelines, w/ suspected signficant wt loss of 30lbs/19% in 10 months. * Swallowing difficulty R/T dysphagia, respiratory status as evidenced by s/p NGT insertion (01/08), now NPO, s/p code blue (01/10), orally intubated. CURRENT TF:NPO ENTERAL NUTRITION RECOMMENDATIONS: WHEN HEMODYNAMICALLY STABLE: Nepro @ 40ml/hr x 24 hrs to provide 960ml, 17 28kcal, 77g prot, 698ml free water WHEN HEMODYNAMICALLY STABLE AND MEDICALLY APPROPRIATE TO FEED: -> initiate TF @ 5ml/hr x 6hrs, advance slowly 5ml q 4-6 hrs as tolerated to goal rate -> HOB over 30 degrees/ water flush per MD WITHOUT HEMODYNAMIC STABILITY -> If medically appropriate to feed, rec trophic feeding of Nepro @ 5ml/hr x 24 hrs to maintain gut integrity (16) Pelvic mass Assessment & Plan: invasive pelvic mass likely prostate necrotic nodes likely spread recommend colonoscopy given invasion possible to rectum oncology input thank you There is a large pelvic mass which is cephalad to but inseparable from the prostate. This also is inseparable from the posterior wall of the bladder and there appears to be circumferential bladder wall thickening. This mass also appears to involve the seminal vesicles. This measures approximately 8.8 cm transverse by 10 cm craniocaudad by 7.4 cm AP. The periphery of this mass is very lobulated. The mass may also invade the adjacent rectum. There is bilateral iliac chain lymphadenopathy, with nodes measuring up to 3 cm in diameter. Some of these nodes are very low in attenuation indicating that they are necrotic. There is also retroperitoneal lymphadenopathy. There is severe right and moderate left hydronephrosis and bilateral hydroureter. The dilated ureters terminate at the level of the mass. No intrinsic renal parenchymal abnormality. The pancreas is unremarkable. No findings corresponding to the areas of low-attenuation described on prior sonogram are evident. No pancreatic ductal dilatation is evident. The liver demonstrates multiple cysts. The gallbladder, bile ducts, spleen, adrenals are unremarkable. The bones demonstrate diffuse involvement with multiple mixed osteolytic/osteosclerotic lesions, mostly sclerotic component predominating. There is a right groin dialysis catheter in place, tip at the level of the iliac venous confluence. There is a nasogastric tube,, tip in the stomach. There is a Mathew catheter. There is a rectal tube lying outside the patient with the balloon in flated within the inner gluteal fold. There are bilateral pleural effusions. There is compressive atelectasis of most if not all of both lower lobes. 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 Compressive atelectasis of most of not all of both lower lobes Other findings as noted, including multiple liver cysts Lázaro Jenkins Feb 07, 2020 11:03
[2020-02-07 12:00] VITALS: BP 126/64
--- NOTE | 2020-02-07 12:34 | General Progress Note ---
Subjective ROS Limited/Unobtainable: No Allergies: Coded Allergies: No Known Allergies (Unverified , 03/18/19) Objective Last 24 Hour Vital Signs Date Time Temp Pulse Resp B/P (MAP) Pulse Ox O2 Delivery O2 Flow Rate FiO2 02/07/20 12:00 30 02/07/20 12:00 97.9 88 16 126/64 (84) 100 02/07/20 12:00 Mechanical Ventilator 02/07/20 10:56 81 15 30 02/07/20 08:00 88 02/07/20 08:00 97.9 91 18 137/83 (101) 99 02/07/20 08:00 Mechanical Ventilator 02/07/20 08:00 30 02/07/20 07:10 101 22 30 02/07/20 04:00 Mechanical Ventilator 02/07/20 04:00 97.9 90 17 127/76 (93) 100 02/07/20 04:00 30 02/07/20 03:33 90 02/07/20 03:06 92 22 30 02/07/20 00:00 Mechanical Ventilator 02/07/20 00:00 97.5 85 17 128/81 (97) 100 02/06/20 23:25 85 02/06/20 22:49 82 19 30 02/06/20 21:32 78 02/06/20 20:00 98.2 88 18 118/73 (88) 100 02/06/20 20:00 Mechanical Ventilator 02/06/20 20:00 30 02/06/20 18:43 79 21 30 02/06/20 16:44 88 02/06/20 16:00 98.5 84 18 121/75 (90) 100 02/06/20 16:00 30 02/06/20 16:00 Mechanical Ventilator 02/06/20 15:20 91 23 30 02/06/20 15:00 88 18 113/66 (82) 100 02/06/20 14:00 94 12 146/93 (110) 100 02/06/20 13:00 90 22 110/69 (83) 100 Intake and Output 02/06/20 02/07/20 19:00 07:00 Intake Total 982.5 ml 1108 ml Output Total 590 ml 1100 ml Balance 392.5 ml 8 ml Free Water 40 ml 100 ml IV Total 922.5 ml 703 ml Tube Feeding 305 ml Other 20 ml Output Urine Total 590 ml 1100 ml Laboratory Tests 02/06/20 17:13: POC Whole Blood Glucose 70L 02/07/20 00:37: POC Whole Blood Glucose 86 02/07/20 03:00: White Blood Count 10.3, Red Blood Count 3.20L, Hemoglobin 8.8L, Hematocrit 26.0L , Mean Corpuscular Volume 81, Mean Corpuscular Hemoglobin 27.6, Mean Corpuscular Hemoglobin Concent 33.9, Red Cell Distribution Width 20.8H, Platelet Count 335, Mean Platelet Volume 6.7, Neutrophils (%) (Auto) , Lymphocytes (%) (Auto) , Monocytes (%) (Auto) , Eosinophils (%) (Auto) , Basophils (%) (Auto) , Differential Total Cells Counted 100, Neutrophils % (Manual) 84H, Lymphocytes % (Manual) 8L, Monocytes % (Manual) 7, Eosinophils % (Manual) 1, Basophils % (Manual) 0, Band Neutrophils 0, Platelet Estimate Adequate, Platelet Morphology Normal, Hypochromasia 1+, Anisocytosis 2+, Sodium Level 138, Potassium Level 3.6, Chloride Level 107, Carbon Dioxide Level 18L, Blood Urea Nitrogen 7, Creatinine 0.9, Estimat Glomerular Filtration Rate > 60, Glucose Level 98, Calcium Level 7.6L, Total Bilirubin 0.3, Aspartate Amino Transf (AST/SGOT) 35, Alanine Aminotransferase (ALT/SGPT) 17, Alkaline Phosphatase 229H, Total Protein 5.6L, Albumin 1.6L, Globulin 4.0, Albumin/Globulin Ratio 0.4L 02/07/20 05:51: POC Whole Blood Glucose 87 02/07/20 11:43: POC Whole Blood Glucose 70L Height (Feet): 5 Height (Inches): 9.00 Weight (Pounds): 149 General Appearance: no apparent distress EENT: normal ENT inspection Neck: normal alignment Cardiovascular: normal rate Respiratory/Chest: decreased breath sounds Abdomen: normal bowel sounds, non tender, soft Extremities: non-tender Assessment/Plan Status: unchanged Assessment/Plan: AMS dementia Anemia DM hyper CA elevated AST low albumin COPD RI HTN metastatic prostate CA intubated chart reviewed s/p trach s/p PEG GTF monitor for residuals Paulino Bueno MD Feb 07, 2020 12:34
--- NOTE | 2020-02-07 12:38 | General Progress Note ---
Subjective Constitutional: Reports: weakness Allergies: Coded Allergies: No Known Allergies (Unverified , 03/18/19) All Systems: reviewed and negative except above Subjective trach vent altered Objective Last 24 Hour Vital Signs Date Time Temp Pulse Resp B/P (MAP) Pulse Ox O2 Delivery O2 Flow Rate FiO2 02/07/20 12:00 30 02/07/20 12:00 97.9 88 16 126/64 (84) 100 02/07/20 12:00 Mechanical Ventilator 02/07/20 10:56 81 15 30 02/07/20 08:00 88 02/07/20 08:00 97.9 91 18 137/83 (101) 99 02/07/20 08:00 Mechanical Ventilator 02/07/20 08:00 30 02/07/20 07:10 101 22 30 02/07/20 04:00 Mechanical Ventilator 02/07/20 04:00 97.9 90 17 127/76 (93) 100 02/07/20 04:00 30 02/07/20 03:33 90 02/07/20 03:06 92 22 30 02/07/20 00:00 Mechanical Ventilator 02/07/20 00:00 97.5 85 17 128/81 (97) 100 02/06/20 23:25 85 02/06/20 22:49 82 19 30 02/06/20 21:32 78 02/06/20 20:00 98.2 88 18 118/73 (88) 100 02/06/20 20:00 Mechanical Ventilator 02/06/20 20:00 30 02/06/20 18:43 79 21 30 02/06/20 16:44 88 02/06/20 16:00 98.5 84 18 121/75 (90) 100 02/06/20 16:00 30 02/06/20 16:00 Mechanical Ventilator 02/06/20 15:20 91 23 30 02/06/20 15:00 88 18 113/66 (82) 100 02/06/20 14:00 94 12 146/93 (110) 100 02/06/20 13:00 90 22 110/69 (83) 100 Intake and Output 02/06/20 02/07/20 19:00 07:00 Intake Total 982.5 ml 1108 ml Output Total 590 ml 1100 ml Balance 392.5 ml 8 ml Free Water 40 ml 100 ml IV Total 922.5 ml 703 ml Tube Feeding 305 ml Other 20 ml Output Urine Total 590 ml 1100 ml Laboratory Tests 02/06/20 17:13: POC Whole Blood Glucose 70L 02/07/20 00:37: POC Whole Blood Glucose 86 02/07/20 03:00: White Blood Count 10.3, Red Blood Count 3.20L, Hemoglobin 8.8L, Hematocrit 26.0L , Mean Corpuscular Volume 81, Mean Corpuscular Hemoglobin 27.6, Mean Corpuscular Hemoglobin Concent 33.9, Red Cell Distribution Width 20.8H, Platelet Count 335, Mean Platelet Volume 6.7, Neutrophils (%) (Auto) , Lymphocytes (%) (Auto) , Monocytes (%) (Auto) , Eosinophils (%) (Auto) , Basophils (%) (Auto) , Differential Total Cells Counted 100, Neutrophils % (Manual) 84H, Lymphocytes % (Manual) 8L, Monocytes % (Manual) 7, Eosinophils % (Manual) 1, Basophils % (Manual) 0, Band Neutrophils 0, Platelet Estimate Adequate, Platelet Morphology Normal, Hypochromasia 1+, Anisocytosis 2+, Sodium Level 138, Potassium Level 3.6, Chloride Level 107, Carbon Dioxide Level 18L, Blood Urea Nitrogen 7, Creatinine 0.9, Estimat Glomerular Filtration Rate > 60, Glucose Level 98, Calcium Level 7.6L, Total Bilirubin 0.3, Aspartate Amino Transf (AST/SGOT) 35, Alanine Aminotransferase (ALT/SGPT) 17, Alkaline Phosphatase 229H, Total Protein 5.6L, Albumin 1.6L, Globulin 4.0, Albumin/Globulin Ratio 0.4L 02/07/20 05:51: POC Whole Blood Glucose 87 02/07/20 11:43: POC Whole Blood Glucose 70L Height (Feet): 5 Height (Inches): 9.00 Weight (Pounds): 149 General Appearance: lethargic EENT: normal ENT inspection Neck: normal alignment Cardiovascular: normal peripheral pulses, normal rate, regular rhythm Respiratory/Chest: chest wall non-tender, lungs clear, normal breath sounds Abdomen: normal bowel sounds, non tender, soft Extremities: normal inspection Edema: no edema noted Arm (L), no edema noted Arm (R), no edema noted Leg (L), no edema noted Leg (R), no edema noted Pedal (L), no edema noted Pedal (R), no edema noted Generalized Neurologic: motor weakness Skin: normal pigmentation, warm/dry Assessment/Plan Problem List: (1) Anemia ICD Codes: D64.9 - Anemia, unspecified SNOMED: 737623472 (2) Paraplegia ICD Codes: G82.20 - Paraplegia, unspecified SNOMED: 83284135 (3) Diabetes ICD Codes: E11.9 - Type 2 diabetes mellitus without complications SNOMED: 17185928 (4) Weak ICD Codes: R53.1 - Weakness SNOMED: 98620768 (5) HTN (hypertension) ICD Codes: I10 - Essential (primary) hypertension SNOMED: 30320477 (6) ARF (acute renal failure) ICD Codes: N17.9 - Acute kidney failure, unspecified SNOMED: 14655523 (7) Altered level of consciousness ICD Codes: R40.4 - Transient alteration of awareness SNOMED: 5599070 (8) Dehydration ICD Codes: E86.0 - Dehydration SNOMED: 44232897 (9) Hypernatremia ICD Codes: E87.0 - Hyperosmolality and hypernatremia SNOMED: 919316293 Status: unchanged Assessment/Plan: vent abx transfuse prn gi/heme f/u cbc bmp am Farrukh Ríos DO Feb 07, 2020 12:38
[2020-02-07] MEDS ORDERED: DAPTOMYCIN350 MG IV (13:13)
[2020-02-07] MEDS ORDERED: Tubing IV Secondary IV ONE (14:03)
[2020-02-07] MEDS ORDERED: D5 1/2NS 1000ml IV ONE (14:03)
[2020-02-07] MEDS ORDERED: Sterile Water Irrig 1000ml IRRIG ONE (14:03)
[2020-02-07] MEDS ORDERED: NS 275ml ONE (14:03)
[2020-02-07] MEDS: DAPTOmycin 700 MG in NS 55 ML IV SCH (14:59)
--- NOTE | 2020-02-07 15:38 | Cardiac Electrophysiology PN ---
Assessment/Plan Assessment/Plan 1. Altered mental status due to severe dehydration in view of sodium of 160 and acute renal failure. On IV fluids and IV antibiotics. Ruled out for NM. 2. Septic shock, off levophed and on iv Abx On Midodrine 10 tid 3. History of CVA, off Plavix in view of hematuria. 4. Respiratory failure, Extubated 01/22 and reintubated 01/29/20 S/P Tracheostomy 5. Diabetes. 6. Acute renal failure. Cr 4.2. Had HD once only on 01/11/20. No more HD needed and Cr 1.2 7. Hematuria 8. Anemia with Hb 5.8 and coffee ground emesis. FU Dr Bueno 9. Shock liver with increase AST>2000 10. Metastatic prostate cancer -- w psa 2741 with a Large pelvic mass involving the prostate, bladder, seminal vesicles, presumably representing prostatic malignancy Severe right and moderate left hydronephrosis and bilateral hydroureter, due to ureteral obstruction by the above mass 11. Dysphagia, S/P PEG KARLO RN and Dr. Biswas Subjective Subjective Coded 01/19 for respiratory failure followed by bradycardia and PEA. Extubated 01/23/20. S/P tracheostomy 02/05/20 and PEG 02/06/20 On iv Abx Objective Last 24 Hour Vital Signs Date Time Temp Pulse Resp B/P (MAP) Pulse Ox O2 Delivery O2 Flow Rate FiO2 02/07/20 12:00 30 02/07/20 12:00 91 02/07/20 12:00 97.9 88 16 126/64 (84) 100 02/07/20 12:00 Mechanical Ventilator 02/07/20 10:56 81 15 30 02/07/20 08:00 88 02/07/20 08:00 97.9 91 18 137/83 (101) 99 02/07/20 08:00 Mechanical Ventilator 02/07/20 08:00 30 02/07/20 07:10 101 22 30 02/07/20 04:00 Mechanical Ventilator 02/07/20 04:00 97.9 90 17 127/76 (93) 100 02/07/20 04:00 30 02/07/20 03:33 90 02/07/20 03:06 92 22 30 02/07/20 00:00 Mechanical Ventilator 02/07/20 00:00 97.5 85 17 128/81 (97) 100 02/06/20 23:25 85 02/06/20 22:49 82 19 30 02/06/20 21:32 78 02/06/20 20:00 98.2 88 18 118/73 (88) 100 02/06/20 20:00 Mechanical Ventilator 02/06/20 20:00 30 02/06/20 18:43 79 21 30 02/06/20 16:44 88 02/06/20 16:00 98.5 84 18 121/75 (90) 100 02/06/20 16:00 30 02/06/20 16:00 Mechanical Ventilator Intake and Output 02/06/20 02/07/20 19:00 07:00 Intake Total 982.5 ml 1108 ml Output Total 590 ml 1100 ml Balance 392.5 ml 8 ml Free Water 40 ml 100 ml IV Total 922.5 ml 703 ml Tube Feeding 305 ml Other 20 ml Output Urine Total 590 ml 1100 ml Laboratory Tests Test 02/06/20 17:13 02/07/20 00:37 02/07/20 03:00 02/07/20 05:51 POC Whole Blood Glucose 70 MG/DL (74-106) L 86 MG/DL (74-106) 87 MG/DL (74-106) White Blood Count 10.3 K/UL (4.8-10.8) Red Blood Count 3.20 M/UL (4.70-6.10) L Hemoglobin 8.8 G/DL (14.2-18.0) L Hematocrit 26.0 % (42.0-52.0) L Mean Corpuscular Volume 81 FL (80-99) Mean Corpuscular Hemoglobin 27.6 PG (27.0-31.0) Mean Corpuscular Hemoglobin Concent 33.9 G/DL (32.0-36.0) Red Cell Distribution Width 20.8 % (11.6-14.8) H Platelet Count 335 K/UL (150-450) Mean Platelet Volume 6.7 FL (6.5-10.1) Neutrophils (%) (Auto) % (45.0-75.0) Lymphocytes (%) (Auto) % (20.0-45.0) Monocytes (%) (Auto) % (1.0-10.0) Eosinophils (%) (Auto) % (0.0-3.0) Basophils (%) (Auto) % (0.0-2.0) Differential Total Cells Counted 100 Neutrophils % (Manual) 84 % (45-75) H Lymphocytes % (Manual) 8 % (20-45) L Monocytes % (Manual) 7 % (1-10) Eosinophils % (Manual) 1 % (0-3) Basophils % (Manual) 0 % (0-2) Band Neutrophils 0 % (0-8) Platelet Estimate Adequate Platelet Morphology Normal Hypochromasia 1+ Anisocytosis 2+ Sodium Level 138 MMOL/L (136-145) Potassium Level 3.6 MMOL/L (3.5-5.1) Chloride Level 107 MMOL/L (98-107) Carbon Dioxide Level 18 MMOL/L (21-32) L Blood Urea Nitrogen 7 mg/dL (7-18) Creatinine 0.9 MG/DL (0.55-1.30) Estimat Glomerular Filtration Rate > 60 mL/min (>60) Glucose Level 98 MG/DL (74-106) Calcium Level 7.6 MG/DL (8.5-10.1) L Total Bilirubin 0.3 MG/DL (0.2-1.0) Aspartate Amino Transf (AST/SGOT) 35 U/L (15-37) Alanine Aminotransferase (ALT/SGPT) 17 U/L (12-78) Alkaline Phosphatase 229 U/L (46-116) H Total Protein 5.6 G/DL (6.4-8.2) L Albumin 1.6 G/DL (3.4-5.0) L Globulin 4.0 g/dL Albumin/Globulin Ratio 0.4 (1.0-2.7) L Test 02/07/20 11:43 POC Whole Blood Glucose 70 MG/DL (74-106) L Microbiology Date/Time Source Procedure Growth Status 02/05/20 03:50 Blood Blood Culture - Preliminary NO GROWTH AFTER 48 HOURS Resulted Objective HEAD AND NECK: Trach in place LUNGS: Coarse rhonchi. CARDIOVASCULAR: Regular S1 and S2 with no gallop. ABDOMEN: Soft.PEG in place EXTREMITIES: No pitting edema. Kevin Lopez MD Feb 07, 2020 15:38
[2020-02-07 16:00] VITALS: BP 137/80
[2020-02-07 20:00] VITALS: BP 134/73
[2020-02-07] MEDS: Dyna-Hex 2% Top Sol 2oz TOPIC SCH (20:43)
[2020-02-07] MEDS ORDERED: Miralax 17gm pkt GT SCH (21:00)
[2020-02-07] MEDS ORDERED: Sennosides 8.6mg tab GT SCH (21:00)
[2020-02-07] MEDS: D5 1/2NS 1,000 ML IV SCH ×2 (23:11→23:34)
[2020-02-08] VITALS: BP 128/77
[2020-02-08 04:00] VITALS: BP 142/79
[2020-02-08 05:21] LABS: HEMATOCRIT 26.1 % (42.0-52.0); MEAN CORPUSCULAR VOLUME 81 FL (80-99); PLATELET COUNT 352 K/UL (150-450); RED BLOOD COUNT 3.21 M/UL (4.70-6.10); RED CELL DISTRIBUTION WIDTH 21.1 % (11.6-14.8); WHITE BLOOD COUNT 9.5 K/UL (4.8-10.8)
[2020-02-08 05:36] LABS: ANION GAP 11 mmol/L (5-15); BLOOD UREA NITROGEN 7 mg/dL (7-18); CALCIUM 7.6 MG/DL (8.5-10.1); CARBON DIOXIDE 21 MMOL/L (21-32); CHLORIDE 107 MMOL/L (98-107); CREATININE 0.8 MG/DL (0.55-1.30); POTASSIUM 3.5 MMOL/L (3.5-5.1); SODIUM 139 MMOL/L (136-145)
[2020-02-08] MEDS: Metoclopramide 10mg/10ml Liq GT SCH ×3 (05:57→12:28)
[2020-02-08] MEDS: Midodrine 10mg tab GT SCH ×2 (05:57→14:00)
[2020-02-08 08:00] VITALS: BP 138/72
[2020-02-08] MEDS: Vitamin D 1000 IU Tab GT SCH (08:14)
--- NOTE | 2020-02-08 09:03 | Hematology/Onc Progress Note ---
Assessment/Plan Assessment/Plan Assessment/Recs # Metastatic prostate cancer -- w psa 2741, has a Large pelvic mass as described involving the prostate, bladder, seminal vesicles, presumably representing prostatic malignancy --> CT Evidence of disseminated malignancy, with extensive lymphadenopathy of and evidenc of diffuse osseous metastases Severe right and moderate left hydronephrosis and bilateral hydroureter, due to ureteral obstruction by the above mass --> tumor markers ordered, psa 2741 --> after above reviewed, consider further biopsy of prostate with uro as needed # Pancytopenia with initially Anemia due to underlying chronic medical issues, multifactorial v Gi bleed v malignancy --> Anemia workup has been ordered, rule out gi bleed --> No evidence of hemolysis is noted, peripheral smear has been reviewed. --> Hgb goal >7. Transfuse prn. --> Epogen or iron at this time is not particularly indicated --> Medications have been reviewed --> low threshold for gi evaluation in case has occult + --> hgb 10-->9.7-->9.2->10-->8.6-->7.7-->5-->8.3->9.3->7.8-->8.2-->8.1-->9.3-->9.9->10-> 7.5->8.2 --> 8 flow cytometry ordered bc of nucleated cells on smear-->neg --> wbc 5-->4-->3.9-->4 --> plt 150-->98-->82-->51->49-->46-->50-->68-->88-->109 --> hep and hiv panel--NEG --> us abd-->shows 3 small lesions, requires further eval --> CT a/p reviewed # Multiple lesions noted in pancreas --> MRI abd ordered--> nondiagnostic --> CT of the abd reviewed # Respiratory failure --> s/p vent --> trach 02/04 scheduled # Protein caloric malnutrition --> daily calorie counts --> daily weights --> mirtazapine started # Acute renal failure --> continue on ivfs --> as per renal # Hypokalemia --> replete with K # Severe dehydration --> ivfs ongoing # Respiratory failure --> s/p intubation # Hypernatremia indicative of severe water deficit # Severe hyperuricemia, partly due to dehydration and renal failure # Acute metabolic and toxic encephalopathy # Mild, malnutrition # Psych issues per psych # Lactic acid, possible sepsis # Dvt ppx heparin sq->Scds # Comfort care potentially The timing of this note does not necessarily reflect the time of the patient was seen. Greatly appreciate consultation. Subjective Constitutional: Denies: no symptoms, chills, fever, malaise, weakness, other Cardiovascular: Denies: no symptoms, chest pain, edema, irregular heart rate, lightheadedness, palpitations, syncope, other Respiratory: Denies: no symptoms, cough, shortness of breath, SOB with excertion, SOB at rest, sputum, wheezing, other Gastrointestinal/Abdominal: Denies: no symptoms, abdomen distended, abdominal pain, black stools, tarry stools, blood in stool, constipated, diarrhea, difficulty swallowing, nausea, poor appetite, poor fluid intake, rectal bleeding, vomiting, other Genitourinary: Denies: no symptoms, burning, discharge, frequency, flank pain, hematuria, incontinence, pain, urgency, other Neurologic/Psychiatric: Denies: no symptoms, anxiety, depressed, emotional problems, headache, numbness, paresthesia, pre-existing deficit, seizure, tingling, tremors, weakness, other Endocrine: Denies: no symptoms, excessive sweating, flushing, intolerance to cold, intolerance to heat, increased hunger, increased thirst, increased urine, unexplained weight gain, unexplained weight loss, other Allergies: Coded Allergies: No Known Allergies (Unverified , 03/18/19) Subjective 01/07 meds noted, no bleeding, hgb 10, no hemolysis, hgb 10.1 01/08 labs reviewed, vi rn, no major events, no bleeding, hgb lower 01/09 labs noted, no bleeding, vi rn, no major changes, plt lower 01/10 did have epistaxis overnight, no bleeding, night sweats, epistaxis better 01/12 icu, remains on vent, levo, no bleeding, meds noted 01/13 remains in icu, no bleeding, on levo, no major changes 01/14 icu, is on 1l, restarints are off, no bleeding, no night sweats 01/15 icu, meds noted, with diarrhea, rectal tube reinserted, on nc 01/16 out of icu, no bleeding, meds reviewed, cbc ad bmp pending 01/17 unable to lay still for the mri, thus ct ordered, vi rn 01/19 hgb 6.9, no bleeding, no hemolysis, ct reviewed 01/20 obtunded, meds reviewed, hgb is better, in icu 01/21 obtunded, npo, labs hjave been reviewed, hgb 9.2 01/22 obtunded, in icu, no bleeding, plt 109 01/23 obtunded still icu, on venturimask, meds reviewed, labs noted 01/24 obtunded, in icu, labs reviewed, meds noted, wbc 4.1, plt 133 01/26 is out of the icu, no bleeding, meds noted, labs ordered 01/27 nonverbal, out of icu, on feedigs, no bleeding, labs reviewed 01/28 icu, nv, is on midrinone, linzess, ivf 01/29 icu, off levop, ngt restarted, meds noted 01/30 icu, with large bm, labs reviewed, no f/c, zosyn 01/31 icu, levo is on hold, no bleeding, abx, hgb 7.5 02/02 in icu, intubated, with ngt, no bleeding, labs noted 02/03 icu, labs are noted, remains intubated, to get 1unit prbc 02/04 vent/, trach to be done today, hgb much improved 8.9 02/05 is on vent, k was low, kcl was given iv, no bleeding 02/06 on vent, labs reviewed, no major events, no bleeding 01/08 with vent, on low-grade fevers, no bleeding, labs are noted Objective Objective Current Medications Medications (Trade) Dose Ordered Sig/Jesse Route PRN Reason Start Time Stop Time Status Last Admin Dose Admin Acetaminophen (Tylenol) 650 mg Q4H PRN GT Temp >100.5, mild pain 02/06/20 23:45 03/04/20 22:14 Bisacodyl (Dulcolax) 10 mg DAILY PRN RECTAL Constipation 01/05/20 20:15 04/04/20 20:14 Chlorhexidine Gluconate (Navya-Hex 2%) 1 applic DAILY@2000 TOPIC 01/11/20 20:00 04/10/20 19:59 02/07/20 20:43 Daptomycin 700 mg/ Sodium Chloride 55 ml @ 110 mls/hr Q24H IV 02/04/20 15:00 02/13/20 23:59 02/07/20 14:59 Dextrose (Dextrose 50%) 25 ml Q30M PRN IV Hypoglycemia 01/05/20 20:15 04/04/20 20:14 01/24/20 23:53 Dextrose (Dextrose 50%) 50 ml Q30M PRN IV Hypoglycemia 01/05/20 20:15 04/04/20 20:14 Dextrose/Sodium Chloride 1,000 ml @ 60 mls/hr [id number] IV 02/07/20 23:30 03/08/20 23:29 02/07/20 23:34 Lansoprazole (Prevacid) 30 mg Q12HR GT 02/07/20 09:00 02/27/20 20:59 02/08/20 08:15 Linaclotide (Linzess) 290 mcg BEFORE BREAKFAST ORAL 01/10/20 06:30 04/09/20 06:29 02/05/20 05:54 Loperamide HCl (Imodium) 2 mg Q6H PRN GT Diarrhea 02/06/20 23:45 02/26/20 15:44 Metoclopramide HCl (Reglan) 10 mg EVERY 6 HOURS GT 02/07/20 00:00 02/18/20 11:59 02/08/20 05:57 Midodrine (Pro-Amatine) 10 mg Q8HR GT 02/07/20 06:00 04/13/20 17:59 Ondansetron HCl (Zofran) 4 mg Q6H PRN IVP Nausea & Vomiting 01/10/20 06:30 02/09/20 06:29 Polyethylene Glycol (Miralax) 17 gm BEDTIME GT 02/07/20 21:00 02/08/20 20:59 02/07/20 20:43 Sennosides (Senokot) 8.6 mg QHS GT 02/07/20 21:00 02/11/20 20:59 02/07/20 20:43 Vitamin D (Vitamin D) 3,000 intlu DAILY GT 01/19/20 12:00 02/18/20 11:59 02/08/20 08:14 Last 24 Hour Vital Signs Date Time Temp Pulse Resp B/P (MAP) Pulse Ox O2 Delivery O2 Flow Rate FiO2 02/08/20 08:00 98.2 90 18 138/72 (94) 100 02/08/20 08:00 30 02/08/20 08:00 Mechanical Ventilator 02/08/20 07:52 100 19 30 02/08/20 07:42 87 02/08/20 04:00 30 02/08/20 04:00 97.9 83 18 142/79 (100) 100 02/08/20 04:00 Mechanical Ventilator 02/08/20 03:58 87 02/08/20 03:30 92 19 30 02/08/20 00:00 97.9 84 18 128/77 (94) 100 02/08/20 00:00 Mechanical Ventilator 02/07/20 23:58 91 02/07/20 23:07 86 19 30 02/07/20 20:00 Mechanical Ventilator 02/07/20 20:00 30 02/07/20 20:00 98.2 84 18 134/73 (93) 100 02/07/20 19:30 87 19 30 02/07/20 19:25 81 02/07/20 16:00 Mechanical Ventilator 02/07/20 16:00 30 02/07/20 16:00 97.7 91 18 137/80 (99) 100 02/07/20 16:00 84 02/07/20 15:10 89 17 30 02/07/20 12:00 30 02/07/20 12:00 91 02/07/20 12:00 97.9 88 16 126/64 (84) 100 02/07/20 12:00 Mechanical Ventilator 02/07/20 10:56 81 15 30 02/07/20 08:00 88 02/07/20 08:00 97.9 91 18 137/83 (101) 99 02/07/20 08:00 Mechanical Ventilator 02/07/20 08:00 30 02/07/20 07:10 101 22 30 02/07/20 04:00 Mechanical Ventilator 02/07/20 04:00 97.9 90 17 127/76 (93) 100 02/07/20 04:00 30 02/07/20 03:33 90 02/07/20 03:06 92 22 30 02/07/20 00:00 Mechanical Ventilator 02/07/20 00:00 97.5 85 17 128/81 (97) 100 02/06/20 23:25 85 02/06/20 22:49 82 19 30 02/06/20 21:32 78 02/06/20 20:00 98.2 88 18 118/73 (88) 100 02/06/20 20:00 Mechanical Ventilator 02/06/20 20:00 30 02/06/20 18:43 79 21 30 02/06/20 16:44 88 02/06/20 16:00 98.5 84 18 121/75 (90) 100 02/06/20 16:00 30 02/06/20 16:00 Mechanical Ventilator 02/06/20 15:20 91 23 30 02/06/20 15:00 88 18 113/66 (82) 100 02/06/20 14:00 94 12 146/93 (110) 100 02/06/20 13:00 90 22 110/69 (83) 100 02/06/20 12:01 98.4 87 19 114/65 (81) 100 02/06/20 12:00 87 02/06/20 12:00 87 19 114/65 (81) 100 02/06/20 12:00 30 02/06/20 12:00 Mechanical Ventilator 02/06/20 11:41 87 22 30 02/06/20 11:02 78 18 98 02/06/20 11:00 88 21 98/58 (71) 95 02/06/20 10:00 90 16 108/66 (80) 100 02/06/20 10:00 78 18 99 Intake and Output 02/07/20 02/08/20 19:00 07:00 Intake Total 1080 ml 1176 ml Output Total 1000 ml 700 ml Balance 80 ml 476 ml Free Water 120 ml 90 ml IV Total 535 ml 446 ml Tube Feeding 425 ml 640 ml Output Urine Total 1000 ml 700 ml Labs Test 02/05/20 13:29 02/05/20 17:15 02/06/20 00:21 02/06/20 04:00 POC Whole Blood Glucose 83 MG/DL (74-106) 90 MG/DL (74-106) 95 MG/DL (74-106) White Blood Count 9.9 K/UL (4.8-10.8) Red Blood Count 3.22 M/UL (4.70-6.10) Hemoglobin 8.9 G/DL (14.2-18.0) Hematocrit 26.2 % (42.0-52.0) Mean Corpuscular Volume 81 FL (80-99) Mean Corpuscular Hemoglobin 27.7 PG (27.0-31.0) Mean Corpuscular Hemoglobin Concent 34.0 G/DL (32.0-36.0) Red Cell Distribution Width 21.2 % (11.6-14.8) Platelet Count 311 K/UL (150-450) Mean Platelet Volume 6.9 FL (6.5-10.1) Neutrophils (%) (Auto) % (45.0-75.0) Lymphocytes (%) (Auto) % (20.0-45.0) Monocytes (%) (Auto) % (1.0-10.0) Eosinophils (%) (Auto) % (0.0-3.0) Basophils (%) (Auto) % (0.0-2.0) Differential Total Cells Counted 100 Neutrophils % (Manual) 82 % (45-75) Lymphocytes % (Manual) 7 % (20-45) Monocytes % (Manual) 11 % (1-10) Eosinophils % (Manual) 0 % (0-3) Basophils % (Manual) 0 % (0-2) Band Neutrophils 0 % (0-8) Platelet Estimate Adequate Platelet Morphology Normal Hypochromasia 1+ Anisocytosis 2+ Prothrombin Time 12.9 SEC (9.30-11.50) Prothromb Time International Ratio 1.2 (0.9-1.1) Activated Partial Thromboplast Time 29 SEC (23-33) Sodium Level 139 MMOL/L (136-145) Potassium Level 3.2 MMOL/L (3.5-5.1) Chloride Level 107 MMOL/L (98-107) Carbon Dioxide Level 22 MMOL/L (21-32) Anion Gap 10 mmol/L (5-15) Blood Urea Nitrogen 10 mg/dL (7-18) Creatinine 0.9 MG/DL (0.55-1.30) Estimat Glomerular Filtration Rate > 60 mL/min (>60) Glucose Level 82 MG/DL (74-106) Calcium Level 7.6 MG/DL (8.5-10.1) Test 02/06/20 05:19 02/06/20 17:13 02/07/20 00:37 02/07/20 03:00 POC Whole Blood Glucose 70 MG/DL (74-106) 86 MG/DL (74-106) White Blood Count 10.3 K/UL (4.8-10.8) Red Blood Count 3.20 M/UL (4.70-6.10) Hemoglobin 8.8 G/DL (14.2-18.0) Hematocrit 26.0 % (42.0-52.0) Mean Corpuscular Volume 81 FL (80-99) Mean Corpuscular Hemoglobin 27.6 PG (27.0-31.0) Mean Corpuscular Hemoglobin Concent 33.9 G/DL (32.0-36.0) Red Cell Distribution Width 20.8 % (11.6-14.8) Platelet Count 335 K/UL (150-450) Mean Platelet Volume 6.7 FL (6.5-10.1) Neutrophils (%) (Auto) % (45.0-75.0) Lymphocytes (%) (Auto) % (20.0-45.0) Monocytes (%) (Auto) % (1.0-10.0) Eosinophils (%) (Auto) % (0.0-3.0) Basophils (%) (Auto) % (0.0-2.0) Differential Total Cells Counted 100 Neutrophils % (Manual) 84 % (45-75) Lymphocytes % (Manual) 8 % (20-45) Monocytes % (Manual) 7 % (1-10) Eosinophils % (Manual) 1 % (0-3) Basophils % (Manual) 0 % (0-2) Band Neutrophils 0 % (0-8) Platelet Estimate Adequate Platelet Morphology Normal Hypochromasia 1+ Anisocytosis 2+ Sodium Level 138 MMOL/L (136-145) Potassium Level 3.6 MMOL/L (3.5-5.1) Chloride Level 107 MMOL/L (98-107) Carbon Dioxide Level 18 MMOL/L (21-32) Blood Urea Nitrogen 7 mg/dL (7-18) Creatinine 0.9 MG/DL (0.55-1.30) Estimat Glomerular Filtration Rate > 60 mL/min (>60) Glucose Level 98 MG/DL (74-106) Calcium Level 7.6 MG/DL (8.5-10.1) Total Bilirubin 0.3 MG/DL (0.2-1.0) Aspartate Amino Transf (AST/SGOT) 35 U/L (15-37) Alanine Aminotransferase (ALT/SGPT) 17 U/L (12-78) Alkaline Phosphatase 229 U/L (46-116) Total Protein 5.6 G/DL (6.4-8.2) Albumin 1.6 G/DL (3.4-5.0) Globulin 4.0 g/dL Albumin/Globulin Ratio 0.4 (1.0-2.7) Test 02/07/20 05:51 02/07/20 11:43 02/07/20 19:11 02/07/20 19:14 POC Whole Blood Glucose 87 MG/DL (74-106) 70 MG/DL (74-106) 76 MG/DL (74-106) 78 MG/DL (74-106) Test 02/08/20 00:34 02/08/20 03:15 02/08/20 05:44 POC Whole Blood Glucose 98 MG/DL (74-106) 85 MG/DL (74-106) White Blood Count 9.5 K/UL (4.8-10.8) Red Blood Count 3.21 M/UL (4.70-6.10) Hemoglobin 9.0 G/DL (14.2-18.0) Hematocrit 26.1 % (42.0-52.0) Mean Corpuscular Volume 81 FL (80-99) Mean Corpuscular Hemoglobin 27.9 PG (27.0-31.0) Mean Corpuscular Hemoglobin Concent 34.4 G/DL (32.0-36.0) Red Cell Distribution Width 21.1 % (11.6-14.8) Platelet Count 352 K/UL (150-450) Mean Platelet Volume 6.8 FL (6.5-10.1) Neutrophils (%) (Auto) % (45.0-75.0) Lymphocytes (%) (Auto) % (20.0-45.0) Monocytes (%) (Auto) % (1.0-10.0) Eosinophils (%) (Auto) % (0.0-3.0) Basophils (%) (Auto) % (0.0-2.0) Sodium Level 139 MMOL/L (136-145) Potassium Level 3.5 MMOL/L (3.5-5.1) Chloride Level 107 MMOL/L (98-107) Carbon Dioxide Level 21 MMOL/L (21-32) Anion Gap 11 mmol/L (5-15) Blood Urea Nitrogen 7 mg/dL (7-18) Creatinine 0.8 MG/DL (0.55-1.30) Estimat Glomerular Filtration Rate > 60 mL/min (>60) Glucose Level 104 MG/DL (74-106) Calcium Level 7.6 MG/DL (8.5-10.1) Micro Microbiology Date/Time Source Procedure Growth Status 02/07/20 15:30 Nasopharynx SARS-CoV-2 RdRp Gene Assay - Final Complete Height (Feet): 5 Height (Inches): 9.00 Weight (Pounds): 149 Objective PE: Vitals: reviewed General Appearance: NAD HEENT: normocephalic, atraumatic Neck: non-tender, normal alignment Respiratory/Chest: nromal breath sounds bilaterally Cardiovascular/Chest: normal peripheral pulses, normal rate Abdomen: normal bowel sounds, soft, nontender Extremities: normal range of motion Samuel Son MD Feb 08, 2020 09:03
--- NOTE | 2020-02-08 09:08 | Infectious Diseases Prog Note ---
Assessment/Plan 69yo M with: VRE bacteremia, most likely 2/2 HD cath placed 01/10 01/29 BCx 1/2 + VRE 01/31 BCx NTD (prior to started abx for VRE) 02/01 Cath tip cx +VRE 02/01 Resp cx +P.mirabilis (S-CTX) & MSSA 02/03 Daptomycin started 02/04 BCx NTD Recurrent resp failure, most likely 2/2 increased volume, vascular congestion, pleural effusion, less likely 2/2 infection CODE BLUE 01/28, r/o infection Large L pleural effusion 01/28 CXR: Enlarged and now quite large left pleural effusion. Increasing interstitial congestion. Stable right pleural effusion 01/29 BCx 03/08 + VRE Shock- likely combination septic and metabolic derangements- SP Probable UTI -01/10 u/a wbc 60-80, nit neg, leuk +3; ucx Neg -Bcx NTD Probable PNA -01/12 CXR: No significant change in bilateral patchy pulmondary opacities, concerning for pneumonia versus edemaq. Small bilateral pleural effusions. -01/10 CXR: Bilateral interstitial and airspace infiltrates versus edema persists. sp cx MRSA (S Vancomycin, bactrim, tetracycline) COVID19 neg -01/04 rapid COVID PCR neg x1 influenza PCR neg CXR: Mild interstitial vascular prominence. No focal infiltrate or consolidation. 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 Etiology not demonstrated. Empty bladder with a Mathew catheter. 3 hypoechoic lesions within the pancreatic head and body, each measuring about 5 mm. Appearance nonspecific. Bilateral pleural effusions. Echogenic liver, consistent with hepatocellular disease. Surface likely nodularity raises concern for cirrhosis. Gallbladder sludge. Negative for dilated bile ducts. Probable nonobstructive left intrarenal calculi. Multiple hepatic cysts Acute on chronic encephalopathy -CT head: 1. Markedly limited, near nondiagnostic evaluation due to motion artifact. Grossly, age-related changes and small vessel disease of aging are noted. Again grossly, no acute intracranial pathology is detected. If there is a high degree of concern or if there is concern for subtle abnormalities, magnetic resonance imaging of the brain with diffusion-weighted sequences should be performed, due to the markedly limited nature of the current study. Close clinical correlation is necessary. HTN COPD DM2 paraplegia Dementia non verbal NH resident (elan mora) Plan: Cont daptomycin #5/10 for transient VRE bacteremia (02/03 CK =49), end date of abx to be 02/12 OK to d/c to SNF on IV abx from ID perspective F/u repeat BCx 02/04, NTD -02/05 SP Zosyn #7 for possible pna during Code blue -01/18 SP vanco IV #7 -01/16 SP Cefepime #4 -01/13 SP Zosyn #4 -01/06 SP Ceftriaxone #2 -01/04 Sp IV Vancomycin x1, Cefepime x1 -f/u cx -Monitor CBC/CMP, temperatures -Renal, cards f/u -aspiration precautions D/w RN Thank you for consulting [facility]. Will continue to follow along with you. Subjective Allergies: Coded Allergies: No Known Allergies (Unverified , 03/18/19) AF WBC 9.5 Rapid COVID from 02/06 neg NAD on vent 35% PEEP 5 Objective Last 24 Hour Vital Signs Date Time Temp Pulse Resp B/P (MAP) Pulse Ox O2 Delivery O2 Flow Rate FiO2 02/08/20 08:00 98.2 90 18 138/72 (94) 100 02/08/20 08:00 30 02/08/20 08:00 Mechanical Ventilator 02/08/20 07:52 100 19 30 02/08/20 07:42 87 02/08/20 04:00 30 02/08/20 04:00 97.9 83 18 142/79 (100) 100 02/08/20 04:00 Mechanical Ventilator 02/08/20 03:58 87 02/08/20 03:30 92 19 30 02/08/20 00:00 97.9 84 18 128/77 (94) 100 02/08/20 00:00 Mechanical Ventilator 02/07/20 23:58 91 02/07/20 23:07 86 19 30 02/07/20 20:00 Mechanical Ventilator 02/07/20 20:00 30 02/07/20 20:00 98.2 84 18 134/73 (93) 100 02/07/20 19:30 87 19 30 02/07/20 19:25 81 02/07/20 16:00 Mechanical Ventilator 02/07/20 16:00 30 02/07/20 16:00 97.7 91 18 137/80 (99) 100 02/07/20 16:00 84 02/07/20 15:10 89 17 30 02/07/20 12:00 30 02/07/20 12:00 91 02/07/20 12:00 97.9 88 16 126/64 (84) 100 02/07/20 12:00 Mechanical Ventilator 02/07/20 10:56 81 15 30 Height (Feet): 5 Height (Inches): 9.00 Weight (Pounds): 149 Gen: NAD in bed HEENT: NCAT, +trach CV: RRR Pulm: BL chest rise on vent Abd: Soft, Non-distended, +PEG Ext: No c/c/e Neuro: Not interactive Lines: R IJ HD cath placed 02/01 Microbiology Date/Time Source Procedure Growth Status 02/07/20 15:30 Nasopharynx SARS-CoV-2 RdRp Gene Assay - Final Complete Laboratory Tests Test 02/07/20 11:43 02/07/20 19:11 02/07/20 19:14 02/08/20 00:34 POC Whole Blood Glucose 70 MG/DL (74-106) L 76 MG/DL (74-106) 78 MG/DL (74-106) 98 MG/DL (74-106) Test 02/08/20 03:15 02/08/20 05:44 White Blood Count 9.5 K/UL (4.8-10.8) Red Blood Count 3.21 M/UL (4.70-6.10) L Hemoglobin 9.0 G/DL (14.2-18.0) L Hematocrit 26.1 % (42.0-52.0) L Mean Corpuscular Volume 81 FL (80-99) Mean Corpuscular Hemoglobin 27.9 PG (27.0-31.0) Mean Corpuscular Hemoglobin Concent 34.4 G/DL (32.0-36.0) Red Cell Distribution Width 21.1 % (11.6-14.8) H Platelet Count 352 K/UL (150-450) Mean Platelet Volume 6.8 FL (6.5-10.1) Neutrophils (%) (Auto) % (45.0-75.0) Lymphocytes (%) (Auto) % (20.0-45.0) Monocytes (%) (Auto) % (1.0-10.0) Eosinophils (%) (Auto) % (0.0-3.0) Basophils (%) (Auto) % (0.0-2.0) Neutrophils % (Manual) Pending Lymphocytes % (Manual) Pending Platelet Estimate Pending Platelet Morphology Pending Sodium Level 139 MMOL/L (136-145) Potassium Level 3.5 MMOL/L (3.5-5.1) Chloride Level 107 MMOL/L (98-107) Carbon Dioxide Level 21 MMOL/L (21-32) Anion Gap 11 mmol/L (5-15) Blood Urea Nitrogen 7 mg/dL (7-18) Creatinine 0.8 MG/DL (0.55-1.30) Estimat Glomerular Filtration Rate > 60 mL/min (>60) Glucose Level 104 MG/DL (74-106) Calcium Level 7.6 MG/DL (8.5-10.1) L POC Whole Blood Glucose 85 MG/DL (74-106) Current Medications Medications (Trade) Dose Ordered Sig/Jesse Route PRN Reason Start Time Stop Time Status Last Admin Dose Admin Acetaminophen (Tylenol) 650 mg Q4H PRN GT Temp >100.5, mild pain 02/06/20 23:45 03/04/20 22:14 Bisacodyl (Dulcolax) 10 mg DAILY PRN RECTAL Constipation 01/05/20 20:15 04/04/20 20:14 Chlorhexidine Gluconate (Navay-Hex 2%) 1 applic DAILY@1999 TOPIC 01/11/20 20:00 04/10/20 19:59 02/07/20 20:43 Daptomycin 700 mg/ Sodium Chloride 55 ml @ 110 mls/hr Q24H IV 02/04/20 15:00 02/13/20 23:59 02/07/20 14:59 Dextrose (Dextrose 50%) 25 ml Q30M PRN IV Hypoglycemia 01/05/20 20:15 04/04/20 20:14 01/24/20 23:53 Dextrose (Dextrose 50%) 50 ml Q30M PRN IV Hypoglycemia 01/05/20 20:15 04/04/20 20:14 Dextrose/Sodium Chloride 1,000 ml @ 60 mls/hr [id number] IV 02/07/20 23:30 03/08/20 23:29 02/07/20 23:34 Lansoprazole (Prevacid) 30 mg Q12HR GT 02/07/20 09:00 02/27/20 20:59 02/08/20 08:15 Linaclotide (Linzess) 290 mcg BEFORE BREAKFAST ORAL 01/10/20 06:30 04/09/20 06:29 02/05/20 05:54 Loperamide HCl (Imodium) 2 mg Q6H PRN GT Diarrhea 02/06/20 23:45 02/26/20 15:44 Metoclopramide HCl (Reglan) 10 mg EVERY 6 HOURS GT 02/07/20 00:00 02/18/20 11:59 02/08/20 05:57 Midodrine (Pro-Amatine) 10 mg Q8HR GT 02/07/20 06:00 04/13/20 17:59 Ondansetron HCl (Zofran) 4 mg Q6H PRN IVP Nausea & Vomiting 01/10/20 06:30 02/09/20 06:29 Polyethylene Glycol (Miralax) 17 gm BEDTIME GT 02/07/20 21:00 02/08/20 20:59 02/07/20 20:43 Sennosides (Senokot) 8.6 mg QHS GT 02/07/20 21:00 02/11/20 20:59 02/07/20 20:43 Vitamin D (Vitamin D) 3,000 intlu DAILY GT 01/19/20 12:00 02/18/20 11:59 02/08/20 08:14 Nayana Ochoa M.D. Feb 08, 2020 09:08
--- NOTE | 2020-02-08 09:20 | General Progress Note ---
Subjective Constitutional: Reports: weakness Allergies: Coded Allergies: No Known Allergies (Unverified , 03/18/19) All Systems: reviewed and negative except above Subjective trach vent altered Objective Last 24 Hour Vital Signs Date Time Temp Pulse Resp B/P (MAP) Pulse Ox O2 Delivery O2 Flow Rate FiO2 02/08/20 08:00 98.2 90 18 138/72 (94) 100 02/08/20 08:00 30 02/08/20 08:00 Mechanical Ventilator 02/08/20 07:52 100 19 30 02/08/20 07:42 87 02/08/20 04:00 30 02/08/20 04:00 97.9 83 18 142/79 (100) 100 02/08/20 04:00 Mechanical Ventilator 02/08/20 03:58 87 02/08/20 03:30 92 19 30 02/08/20 00:00 97.9 84 18 128/77 (94) 100 02/08/20 00:00 Mechanical Ventilator 02/07/20 23:58 91 02/07/20 23:07 86 19 30 02/07/20 20:00 Mechanical Ventilator 02/07/20 20:00 30 02/07/20 20:00 98.2 84 18 134/73 (93) 100 02/07/20 19:30 87 19 30 02/07/20 19:25 81 02/07/20 16:00 Mechanical Ventilator 02/07/20 16:00 30 02/07/20 16:00 97.7 91 18 137/80 (99) 100 02/07/20 16:00 84 02/07/20 15:10 89 17 30 02/07/20 12:00 30 02/07/20 12:00 91 02/07/20 12:00 97.9 88 16 126/64 (84) 100 02/07/20 12:00 Mechanical Ventilator 02/07/20 10:56 81 15 30 Intake and Output 02/07/20 02/08/20 19:00 07:00 Intake Total 1080 ml 1176 ml Output Total 1000 ml 700 ml Balance 80 ml 476 ml Free Water 120 ml 90 ml IV Total 535 ml 446 ml Tube Feeding 425 ml 640 ml Output Urine Total 1000 ml 700 ml Laboratory Tests 02/07/20 11:43: POC Whole Blood Glucose 70L 02/07/20 19:11: POC Whole Blood Glucose 76 02/07/20 19:14: POC Whole Blood Glucose 78 02/08/20 00:34: POC Whole Blood Glucose 98 02/08/20 03:15: White Blood Count 9.5, Red Blood Count 3.21L, Hemoglobin 9.0L, Hematocrit 26.1L, Mean Corpuscular Volume 81, Mean Corpuscular Hemoglobin 27.9, Mean Corpuscular Hemoglobin Concent 34.4, Red Cell Distribution Width 21.1H, Platelet Count 352, Mean Platelet Volume 6.8, Neutrophils (%) (Auto) , Lymphocytes (%) (Auto) , Monocytes (%) (Auto) , Eosinophils (%) (Auto) , Basophils (%) (Auto) , Neutrophils % (Manual) [Pending], Lymphocytes % (Manual) [Pending], Platelet Estimate [Pending], Platelet Morphology [Pending], Sodium Level 139, Potassium Level 3.5, Chloride Level 107, Carbon Dioxide Level 21, Anion Gap 11, Blood Urea Nitrogen 7, Creatinine 0.8, Estimat Glomerular Filtration Rate > 60, Glucose Level 104, Calcium Level 7.6L 02/08/20 05:44: POC Whole Blood Glucose 85 Height (Feet): 5 Height (Inches): 9.00 Weight (Pounds): 149 General Appearance: lethargic EENT: normal ENT inspection Neck: normal alignment Cardiovascular: normal peripheral pulses, normal rate, regular rhythm Respiratory/Chest: chest wall non-tender, lungs clear, normal breath sounds Extremities: normal inspection Edema: no edema noted Arm (L), no edema noted Arm (R), no edema noted Leg (L), no edema noted Leg (R), no edema noted Pedal (L), no edema noted Pedal (R), no edema noted Generalized Neurologic: motor weakness Skin: normal pigmentation, warm/dry Assessment/Plan Problem List: (1) Anemia ICD Codes: D64.9 - Anemia, unspecified SNOMED: 124422410 (2) Paraplegia ICD Codes: G82.20 - Paraplegia, unspecified SNOMED: 92747466 (3) Diabetes ICD Codes: E11.9 - Type 2 diabetes mellitus without complications SNOMED: 41061789 (4) Weak ICD Codes: R53.1 - Weakness SNOMED: 29751945 (5) HTN (hypertension) ICD Codes: I10 - Essential (primary) hypertension SNOMED: 41657197 (6) ARF (acute renal failure) ICD Codes: N17.9 - Acute kidney failure, unspecified SNOMED: 31432308 (7) Altered level of consciousness ICD Codes: R40.4 - Transient alteration of awareness SNOMED: 6080735 (8) Dehydration ICD Codes: E86.0 - Dehydration SNOMED: 98629304 (9) Hypernatremia ICD Codes: E87.0 - Hyperosmolality and hypernatremia SNOMED: 955601901 Status: stable, progressing Assessment/Plan: vent abx transfuse prn gi/heme f/u cbc bmp am dc if clear Farrukh Ríos DO Feb 08, 2020 09:20
--- NOTE | 2020-02-08 10:14 | Pulmonology Progress Note ---
Subjective ROS Limited/Unobtainable: No Interval Events: S/p trach Constitutional: Reports: no symptoms HEENT: Repors: no symptoms Respiratory: Reports: no symptoms Cardiovascular: Reports: no symptoms Gastrointestinal/Abdominal: Reports: no symptoms Genitourinary: Reports: no symptoms Allergies: Coded Allergies: No Known Allergies (Unverified , 03/18/19) All Systems: reviewed and negative except above Objective Last 24 Hour Vital Signs Date Time Temp Pulse Resp B/P (MAP) Pulse Ox O2 Delivery O2 Flow Rate FiO2 02/08/20 08:00 98.2 90 18 138/72 (94) 100 02/08/20 08:00 30 02/08/20 08:00 Mechanical Ventilator 02/08/20 07:52 100 19 30 02/08/20 07:42 87 02/08/20 04:00 30 02/08/20 04:00 97.9 83 18 142/79 (100) 100 02/08/20 04:00 Mechanical Ventilator 02/08/20 03:58 87 02/08/20 03:30 92 19 30 02/08/20 00:00 97.9 84 18 128/77 (94) 100 02/08/20 00:00 Mechanical Ventilator 02/07/20 23:58 91 02/07/20 23:07 86 19 30 02/07/20 20:00 Mechanical Ventilator 02/07/20 20:00 30 02/07/20 20:00 98.2 84 18 134/73 (93) 100 02/07/20 19:30 87 19 30 02/07/20 19:25 81 02/07/20 16:00 Mechanical Ventilator 02/07/20 16:00 30 02/07/20 16:00 97.7 91 18 137/80 (99) 100 02/07/20 16:00 84 02/07/20 15:10 89 17 30 02/07/20 12:00 30 02/07/20 12:00 91 02/07/20 12:00 97.9 88 16 126/64 (84) 100 02/07/20 12:00 Mechanical Ventilator 02/07/20 10:56 81 15 30 Intake and Output 02/07/20 02/08/20 19:00 07:00 Intake Total 1080 ml 1176 ml Output Total 1000 ml 700 ml Balance 80 ml 476 ml Free Water 120 ml 90 ml IV Total 535 ml 446 ml Tube Feeding 425 ml 640 ml Output Urine Total 1000 ml 700 ml General Appearance: no acute distress HEENT: normocephalic, status post trach Respiratory: chest wall non-tender, other - coarse rhonchi Cardiovascular: normal peripheral pulses, normal rate Abdomen: soft, non tender Extremities: other - edema in four extremities Microbiology Date/Time Source Procedure Growth Status 02/07/20 15:30 Nasopharynx SARS-CoV-2 RdRp Gene Assay - Final Complete Laboratory Tests 02/07/20 11:43: POC Whole Blood Glucose 70L 02/07/20 19:11: POC Whole Blood Glucose 76 02/07/20 19:14: POC Whole Blood Glucose 78 02/08/20 00:34: POC Whole Blood Glucose 98 02/08/20 03:15: White Blood Count 9.5, Red Blood Count 3.21L, Hemoglobin 9.0L, Hematocrit 26.1L, Mean Corpuscular Volume 81, Mean Corpuscular Hemoglobin 27.9, Mean Corpuscular Hemoglobin Concent 34.4, Red Cell Distribution Width 21.1H, Platelet Count 352, Mean Platelet Volume 6.8, Neutrophils (%) (Auto) , Lymphocytes (%) (Auto) , Monocytes (%) (Auto) , Eosinophils (%) (Auto) , Basophils (%) (Auto) , Differential Total Cells Counted 100, Neutrophils % (Manual) 75, Lymphocytes % (Manual) 17L, Monocytes % (Manual) 3, Eosinophils % (Manual) 0, Basophils % (Manual) 0, Band Neutrophils 5, Platelet Estimate Adequate, Platelet Morphology Normal, Hypochromasia 1+, Anisocytosis 3+, Microcytosis 1+, Crenated Cell 1+, Sodium Level 139, Potassium Level 3.5, Chloride Level 107, Carbon Dioxide Level 21, Anion Gap 11, Blood Urea Nitrogen 7, Creatinine 0.8, Estimat Glomerular Filtration Rate > 60, Glucose Level 104, Calcium Level 7.6L 02/08/20 05:44: POC Whole Blood Glucose 85 Current Medications Medications (Trade) Dose Ordered Sig/Jesse Route PRN Reason Start Time Stop Time Status Last Admin Dose Admin Acetaminophen (Tylenol) 650 mg Q4H PRN GT Temp >100.5, mild pain 02/06/20 23:45 03/04/20 22:14 Bisacodyl (Dulcolax) 10 mg DAILY PRN RECTAL Constipation 01/05/20 20:15 04/04/20 20:14 Chlorhexidine Gluconate (Navya-Hex 2%) 1 applic DAILY@2000 TOPIC 01/11/20 20:00 04/10/20 19:59 02/07/20 20:43 Daptomycin 700 mg/ Sodium Chloride 55 ml @ 110 mls/hr Q24H IV 02/04/20 15:00 02/13/20 23:59 02/07/20 14:59 Dextrose (Dextrose 50%) 25 ml Q30M PRN IV Hypoglycemia 01/05/20 20:15 04/04/20 20:14 01/24/20 23:53 Dextrose (Dextrose 50%) 50 ml Q30M PRN IV Hypoglycemia 01/05/20 20:15 04/04/20 20:14 Dextrose/Sodium Chloride 1,000 ml @ 60 mls/hr [id number] IV 02/07/20 23:30 03/08/20 23:29 02/07/20 23:34 Lansoprazole (Prevacid) 30 mg Q12HR GT 02/07/20 09:00 02/27/20 20:59 02/08/20 08:15 Linaclotide (Linzess) 290 mcg BEFORE BREAKFAST ORAL 01/10/20 06:30 04/09/20 06:29 02/05/20 05:54 Loperamide HCl (Imodium) 2 mg Q6H PRN GT Diarrhea 02/06/20 23:45 02/26/20 15:44 Metoclopramide HCl (Reglan) 10 mg EVERY 6 HOURS GT 02/07/20 00:00 02/18/20 11:59 02/08/20 05:57 Midodrine (Pro-Amatine) 10 mg Q8HR GT 02/07/20 06:00 04/13/20 17:59 Ondansetron HCl (Zofran) 4 mg Q6H PRN IVP Nausea & Vomiting 01/10/20 06:30 02/09/20 06:29 Polyethylene Glycol (Miralax) 17 gm BEDTIME GT 02/07/20 21:00 02/08/20 20:59 02/07/20 20:43 Sennosides (Senokot) 8.6 mg QHS GT 02/07/20 21:00 02/11/20 20:59 02/07/20 20:43 Vitamin D (Vitamin D) 3,000 intlu DAILY GT 01/19/20 12:00 02/18/20 11:59 02/08/20 08:14 Assessment/Plan Assessment/Plan IMPRESSION: 1. Severe metabolic acidosis. Corrected; now has combined respiratory and metabolic alkalosis 2. Respiratory failure; now trach in place 3. Diarrhea. Resolved 4. Acute renal failure. Nephrology following; 5. Anemia; DISCUSSION: Remains obtunded S/p trach begin placement efforts Poor prognosis Daxa Infante Omar Syed MD Feb 08, 2020 10:13
--- NOTE | 2020-02-08 10:37 | General Progress Note ---
Subjective ROS Limited/Unobtainable: No Allergies: Coded Allergies: No Known Allergies (Unverified , 03/18/19) Objective Last 24 Hour Vital Signs Date Time Temp Pulse Resp B/P (MAP) Pulse Ox O2 Delivery O2 Flow Rate FiO2 02/08/20 08:00 98.2 90 18 138/72 (94) 100 02/08/20 08:00 30 02/08/20 08:00 Mechanical Ventilator 02/08/20 07:52 100 19 30 02/08/20 07:42 87 02/08/20 04:00 30 02/08/20 04:00 97.9 83 18 142/79 (100) 100 02/08/20 04:00 Mechanical Ventilator 02/08/20 03:58 87 02/08/20 03:30 92 19 30 02/08/20 00:00 97.9 84 18 128/77 (94) 100 02/08/20 00:00 Mechanical Ventilator 02/07/20 23:58 91 02/07/20 23:07 86 19 30 02/07/20 20:00 Mechanical Ventilator 02/07/20 20:00 30 02/07/20 20:00 98.2 84 18 134/73 (93) 100 02/07/20 19:30 87 19 30 02/07/20 19:25 81 02/07/20 16:00 Mechanical Ventilator 02/07/20 16:00 30 02/07/20 16:00 97.7 91 18 137/80 (99) 100 02/07/20 16:00 84 02/07/20 15:10 89 17 30 02/07/20 12:00 30 02/07/20 12:00 91 02/07/20 12:00 97.9 88 16 126/64 (84) 100 02/07/20 12:00 Mechanical Ventilator 02/07/20 10:56 81 15 30 Intake and Output 02/07/20 02/08/20 19:00 07:00 Intake Total 1080 ml 1176 ml Output Total 1000 ml 700 ml Balance 80 ml 476 ml Free Water 120 ml 90 ml IV Total 535 ml 446 ml Tube Feeding 425 ml 640 ml Output Urine Total 1000 ml 700 ml Laboratory Tests 02/07/20 11:43: POC Whole Blood Glucose 70L 02/07/20 19:11: POC Whole Blood Glucose 76 02/07/20 19:14: POC Whole Blood Glucose 78 12/4/20 00:34: POC Whole Blood Glucose 98 02/08/20 03:15: White Blood Count 9.5, Red Blood Count 3.21L, Hemoglobin 9.0L, Hematocrit 26.1L, Mean Corpuscular Volume 81, Mean Corpuscular Hemoglobin 27.9, Mean Corpuscular Hemoglobin Concent 34.4, Red Cell Distribution Width 21.1H, Platelet Count 352, Mean Platelet Volume 6.8, Neutrophils (%) (Auto) , Lymphocytes (%) (Auto) , Monocytes (%) (Auto) , Eosinophils (%) (Auto) , Basophils (%) (Auto) , Differential Total Cells Counted 100, Neutrophils % (Manual) 75, Lymphocytes % (Manual) 17L, Monocytes % (Manual) 3, Eosinophils % (Manual) 0, Basophils % (Manual) 0, Band Neutrophils 5, Platelet Estimate Adequate, Platelet Morphology Normal, Hypochromasia 1+, Anisocytosis 3+, Microcytosis 1+, Crenated Cell 1+, Sodium Level 139, Potassium Level 3.5, Chloride Level 107, Carbon Dioxide Level 21, Anion Gap 11, Blood Urea Nitrogen 7, Creatinine 0.8, Estimat Glomerular Filtration Rate > 60, Glucose Level 104, Calcium Level 7.6L 02/08/20 05:44: POC Whole Blood Glucose 85 Height (Feet): 5 Height (Inches): 9.00 Weight (Pounds): 149 General Appearance: no apparent distress EENT: normal ENT inspection Neck: supple Cardiovascular: normal rate Respiratory/Chest: decreased breath sounds Abdomen: normal bowel sounds, non tender, soft Extremities: non-tender Assessment/Plan Status: stable, progressing Assessment/Plan: AMS dementia Anemia DM hyper CA elevated AST low albumin COPD RI HTN metastatic prostate CA intubated chart reviewed s/p trach s/p PEG GTF monitor for residuals Paulino Bueno MD Feb 08, 2020 10:37
[2020-02-08 12:00] VITALS: BP 138/78
--- NOTE | 2020-02-08 13:46 | Nephrology Progress Note ---
Assessment/Plan Problem List: (1) ARF (acute renal failure) (2) Hypernatremia (3) Hypovolemic shock (4) Altered level of consciousness (5) Hypercalcemia (6) Hyperuricemia (7) Pelvic mass Assessment: Prostate cancer Assessment Acute renal failure Possible underlying chronic kidney failure Severe dehydration Hypernatremia indicative of severe water deficit Severe hyperuricemia, partly due to dehydration and renal failure Acute metabolic and toxic encephalopathy Mild, malnutrition Anemia Lactic acid, possible sepsis Hypercalcemia Plan February 07: Trach to vent. Labs reviewed. Continues to be stable from renal standpoint of view. February 06: Now trach and vent. Labs reviewed. Stable from renal standpoint of view. Continue per consultants. February 05: Remains intubated on ventilator. Labs reviewed. Abnormal electrolytes addressed. February 04: Patient seen in ICU. Discussed with SELIN Hanks. Patient due for tracheostomy today. Stable from renal standpoint of view. February 03: Remains intubated on ventilator. Labs reviewed. Abnormal electrolytes addressed. Continue per consultants. February 02: Status quo. Labs reviewed. Abnormal electrolyte addressed. Discussed with SELIN Thomason. February 01: Remains intubated and on ventilator. Abnormal electrolytes addressed. Continue per consultants. January 31: Continues to be on ventilator. Labs reviewed. Abnormal electrolyte addressed. Continue per consultants. January 30: Patient remains intubated. On no pressors. Abnormal electrolyte addressed. Discussed with RN. Apparently due for PEG insertion tomorrow. Continue per consultants. January 29: Patient was coded late last night. Now in ICU intubated. Was on pressors for a short period of time. Is off pressors now. Labs reviewed. Abnormal electrolyte addressed. Continue per consultants. January 28: Labs reviewed. Abnormal electrolyte addressed. Continue per consultants. January 27: Labs reviewed. Abnormal electrolyte addressed. Low potassium low phosphorus and low magnesium replaced. Continue per consultants. January 26: No labs drawn today. Status quo. Continue per consultants. Will check renal parameters tomorrow. January 25: Renal parameters stable. On Venturi mask. Continue per current management. January 24: Renal parameters stable. On Venturi mask. Discussed with RN. Due for PEG insertion today. January 23: Stable from renal standpoint of view. On Venturi mask. Low magnesium addressed. Continue per consultants. January 22: Patient off pressors. Patient extubated. Labs reviewed. Renal p arameters are stable. January 21: Patient on low-dose pressors. Remains hypotensive. Renal parameters stable. Weaning trial in process. Mental status remains poor. January 20: Patient in ICU. Intubated. Full code. Has advanced prostate cancer. On IV Lasix drip. Low magnesium and low phosphorus and low potassium noted and addressed. Continue per consultants. January 19: Patient in ICU. Intubated. Was coded yesterday. Labs reviewed. Medication list reviewed and adjusted. Continue per consultants. Patient full code. Prognosis poor. PSA over 2700 January 18: Labs reviewed. IV fluid discontinued. IV calcium dose decreased. Midodrine dose decreased. Reglan and Protonix changed to GT route. Vitamin D initiated. Continue to monitor renal parameters and calcium level. January 17: Labs reviewed. Abnormal electrolyte addressed. Continue per co nsultants. January 16: Patient now in telemetry. Labs pending. Continue to monitor renal parameters. Continue per consultants. January 15: Still in ICU. Doing well post extubation. Renal parameters improving. Not requiring any more dialysis treatment after the first dialysis treatment. Medications reviewed. Continue per consultants. January 14: Remains in ICU. Tolerating extubation. Labs reviewed. Abnormal electrolytes addressed. Serum creatinine lowering. Continue per current management. Stop Phos binders. Increase calcium IV. January 13: In ICU. Now extubated. Only dialyzed once. Urine output maintained. Serum creatinine down to 2.5. Patient has NG tube. Continue to monitor renal parameters. Continue per consultants. Abnormal electrolytes addressed. January 12: Remains in ICU. Intubated. Transfused yesterday. Abnormal electrolytes addressed. Dialyzed once January 10. Serum creatinine stable. Will adjust IV fluid. Monitor renal parameters. Dialysis as needed. Calcium gluconate IV ordered. Ionized calcium level ordered with tomorrow's labs. January 11: Patient in ICU. Intubated. On Levophed. Hemoglobin low. Due for transfusion. Electrolyte abnormalities noted and addressed. Patient was dialyzed yesterday. Will check lab tomorrow. Dialysis as needed. Discussed with SELIN Srivastava. January 10: Patient is doing poorly. Blood pressure low. ABG abnormal with metabolic acidosis. IV sodium bicarb given. Serum creatinine reno. Patient has acute renal failure. Nontunneled dialysis catheter replacement ordered.. Patient need life saving dialysis treatment SRINIVAS. January 09: Labs reviewed. IV D5 and a half with sodium bicarb initiated. Serum creatinine higher. Continue to monitor renal parameters. NG feeding was changed to Nepro. Patient remains full code. Poor prognosis. January 08: Labs reviewed. IV D5W discontinued. 500 cc 3% saline ordered. NG tube for feeding and for medications. Allopurinol dose increased. Continue to monitor renal parameters serum calcium and phosphorus. January 07: Labs reviewed. Serum calcium remains elevated. Uric acid still elevated. Will give pamidronate 60 mg IV piggyback once for hypercalcemia. Continue to monitor renal parameters. Continue D5W 150 cc an hour. Start Bicitra 30 cc p.o. every 6 hours. Add allopurinol D5W IV hydration Albumin bolus N.p.o. until able to take p.o. Antibiotics Monitor renal parameters monitor calcium, monitor uric acid Subjective ROS Limited/Unobtainable: Yes Objective Objective Last 24 Hour Vital Signs Date Time Temp Pulse Resp B/P (MAP) Pulse Ox O2 Delivery O2 Flow Rate FiO2 02/08/20 12:00 98.2 91 18 138/78 (98) 100 02/08/20 12:00 30 02/08/20 12:00 Mechanical Ventilator 02/08/20 11:42 91 02/08/20 11:06 91 19 30 02/08/20 08:00 98.2 90 18 138/72 (94) 100 02/08/20 08:00 30 02/08/20 08:00 Mechanical Ventilator 02/08/20 07:52 100 19 30 02/08/20 07:42 87 02/08/20 04:00 30 02/08/20 04:00 97.9 83 18 142/79 (100) 100 02/08/20 04:00 Mechanical Ventilator 02/08/20 03:58 87 02/08/20 03:30 92 19 30 02/08/20 00:00 97.9 84 18 128/77 (94) 100 02/08/20 00:00 Mechanical Ventilator 02/07/20 23:58 91 02/07/20 23:07 86 19 30 02/07/20 20:00 Mechanical Ventilator 02/07/20 20:00 30 02/07/20 20:00 98.2 84 18 134/73 (93) 100 02/07/20 19:30 87 19 30 02/07/20 19:25 81 12/3/20 16:00 Mechanical Ventilator 02/07/20 16:00 30 02/07/20 16:00 97.7 91 18 137/80 (99) 100 02/07/20 16:00 84 02/07/20 15:10 89 17 30 Intake and Output 02/07/20 02/08/20 19:00 07:00 Intake Total 1080 ml 1176 ml Output Total 1000 ml 700 ml Balance 80 ml 476 ml Free Water 120 ml 90 ml IV Total 535 ml 446 ml Tube Feeding 425 ml 640 ml Output Urine Total 1000 ml 700 ml Current Medications Medications (Trade) Dose Ordered Sig/Jesse Route PRN Reason Start Time Stop Time Status Last Admin Dose Admin Acetaminophen (Tylenol) 650 mg Q4H PRN GT Temp >100.5, mild pain 02/06/20 23:45 03/04/20 22:14 Bisacodyl (Dulcolax) 10 mg DAILY PRN RECTAL Constipation 01/05/20 20:15 04/04/20 20:14 Chlorhexidine Gluconate (Navya-Hex 2%) 1 applic DAILY@2000 TOPIC 01/11/20 20:00 04/10/20 19:59 02/07/20 20:43 Daptomycin 700 mg/ Sodium Chloride 55 ml @ 110 mls/hr Q24H IV 02/04/20 15:00 02/13/20 23:59 02/07/20 14:59 Dextrose (Dextrose 50%) 25 ml Q30M PRN IV Hypoglycemia 01/05/20 20:15 04/04/20 20:14 01/24/20 23:53 Dextrose (Dextrose 50%) 50 ml Q30M PRN IV Hypoglycemia 01/05/20 20:15 04/04/20 20:14 Dextrose/Sodium Chloride 1,000 ml @ 60 mls/hr [id number] IV 02/07/20 23:30 03/08/20 23:29 02/07/20 23:34 Lansoprazole (Prevacid) 30 mg Q12HR GT 02/07/20 09:00 02/27/20 20:59 02/08/20 08:15 Linaclotide (Linzess) 290 mcg BEFORE BREAKFAST ORAL 01/10/20 06:30 04/09/20 06:29 02/05/20 05:54 Loperamide HCl (Imodium) 2 mg Q6H PRN GT Diarrhea 02/06/20 23:45 02/26/20 15:44 Metoclopramide HCl (Reglan) 10 mg EVERY 6 HOURS GT 02/07/20 00:00 02/18/20 11:59 02/08/20 12:28 Midodrine (Pro-Amatine) 10 mg Q8HR GT 02/07/20 06:00 04/13/20 17:59 Ondansetron HCl (Zofran) 4 mg Q6H PRN IVP Nausea & Vomiting 01/10/20 06:30 02/09/20 06:29 Polyethylene Glycol (Miralax) 17 gm BEDTIME GT 02/07/20 21:00 02/08/20 20:59 02/07/20 20:43 Sennosides (Senokot) 8.6 mg QHS GT 02/07/20 21:00 02/11/20 20:59 02/07/20 20:43 Vitamin D (Vitamin D) 3,000 intlu DAILY GT 01/19/20 12:00 02/18/20 11:59 02/08/20 08:14 Laboratory Tests 02/07/20 19:11: POC Whole Blood Glucose 76 02/07/20 19:14: POC Whole Blood Glucose 78 02/08/20 00:34: POC Whole Blood Glucose 98 02/08/20 03:15: White Blood Count 9.5, Red Blood Count 3.21L, Hemoglobin 9.0L, Hematocrit 26.1L, Mean Corpuscular Volume 81, Mean Corpuscular Hemoglobin 27.9, Mean Corpuscular Hemoglobin Concent 34.4, Red Cell Distribution Width 21.1H, Platelet Count 352, Mean Platelet Volume 6.8, Neutrophils (%) (Auto) , Lymphocytes (%) (Auto) , Monocytes (%) (Auto) , Eosinophils (%) (Auto) , Basophils (%) (Auto) , Differential Total Cells Counted 100, Neutrophils % (Manual) 75, Lymphocytes % (Manual) 17L, Monocytes % (Manual) 3, Eosinophils % (Manual) 0, Basophils % (Manual) 0, Band Neutrophils 5, Platelet Estimate Adequate, Platelet Morphology Normal, Hypochromasia 1+, Anisocytosis 3+, Microcytosis 1+, Crenated Cell 1+, Sodium Level 139, Potassium Level 3.5, Chloride Level 107, Carbon Dioxide Level 21, Anion Gap 11, Blood Urea Nitrogen 7, Creatinine 0.8, Estimat Glomerular Filtration Rate > 60, Glucose Level 104, Calcium Level 7.6L 02/08/20 05:44: POC Whole Blood Glucose 85 02/08/20 13:23: POC Whole Blood Glucose 89 Height (Feet): 5 Height (Inches): 9.00 Weight (Pounds): 149 General Appearance: no apparent distress EENT: other - Trach to vent Cardiovascular: tachycardia Respiratory/Chest: decreased breath sounds Abdomen: soft Dhiraj Biswas MD Feb 08, 2020 13:46
[2020-02-08] MEDS: D5 1/2NS 1,000 ML IV SCH (14:04)
--- NOTE | 2020-02-08 14:17 | Cardiac Electrophysiology PN ---
Assessment/Plan Assessment/Plan 1. Altered mental status due to severe dehydration in view of sodium of 160 and acute renal failure. On IV fluids and IV antibiotics. Ruled out for [place]. 2. Septic shock, off levophed and on iv Abx On Midodrine 10 tid 3. History of CVA, off Plavix in view of hematuria. 4. Respiratory failure, Extubated 01/22 and reintubated 01/29/20 S/P Tracheostomy 5. Diabetes. 6. Acute renal failure. Cr 4.2. Had HD once only on 01/11/20. No more HD needed and Cr 1.2 Right IJ vladimir to be removed today 7. Hematuria 8. Anemia with Hb 5.8 and coffee ground emesis. FU Dr Bueno 9. Shock liver with increase AST>2000 10. Metastatic prostate cancer -- w psa 2741 with a Large pelvic mass involving the prostate, bladder, seminal vesicles, presumably representing prostatic malignancy Severe right and moderate left hydronephrosis and bilateral hydroureter, due to ureteral obstruction by the above mass 11. Dysphagia, S/P PEG KARLO RN and Dr. Biswas DC to [facility] today Subjective Subjective Coded 01/19 for respiratory failure followed by bradycardia and PEA. Extubated 01/23/20. S/P tracheostomy 02/05/20 and PEG 02/06/20 On iv Abx. Right IJ Vladimir being removed before DC to [facility] Objective Last 24 Hour Vital Signs Date Time Temp Pulse Resp B/P (MAP) Pulse Ox O2 Delivery O2 Flow Rate FiO2 02/08/20 12:00 98.2 91 18 138/78 (98) 100 02/08/20 12:00 30 02/08/20 12:00 Mechanical Ventilator 02/08/20 11:42 91 02/08/20 11:06 91 19 30 02/08/20 08:00 98.2 90 18 138/72 (94) 100 02/08/20 08:00 30 02/08/20 08:00 Mechanical Ventilator 02/08/20 07:52 100 19 30 02/08/20 07:42 87 02/08/20 04:00 30 02/08/20 04:00 97.9 83 18 142/79 (100) 100 02/08/20 04:00 Mechanical Ventilator 02/08/20 03:58 87 02/08/20 03:30 92 19 30 02/08/20 00:00 97.9 84 18 128/77 (94) 100 02/08/20 00:00 Mechanical Ventilator 02/07/20 23:58 91 02/07/20 23:07 86 19 30 02/07/20 20:00 Mechanical Ventilator 02/07/20 20:00 30 02/07/20 20:00 98.2 84 18 134/73 (93) 100 02/07/20 19:30 87 19 30 02/07/20 19:25 81 02/07/20 16:00 Mechanical Ventilator 02/07/20 16:00 30 02/07/20 16:00 97.7 91 18 137/80 (99) 100 02/07/20 16:00 84 02/07/20 15:10 89 17 30 Intake and Output 02/07/20 02/08/20 19:00 07:00 Intake Total 1080 ml 1176 ml Output Total 1000 ml 700 ml Balance 80 ml 476 ml Free Water 120 ml 90 ml IV Total 535 ml 446 ml Tube Feeding 425 ml 640 ml Output Urine Total 1000 ml 700 ml Laboratory Tests Test 02/07/20 19:11 02/07/20 19:14 02/08/20 00:34 02/08/20 03:15 POC Whole Blood Glucose 76 MG/DL (74-106) 78 MG/DL (74-106) 98 MG/DL (74-106) White Blood Count 9.5 K/UL (4.8-10.8) Red Blood Count 3.21 M/UL (4.70-6.10) L Hemoglobin 9.0 G/DL (14.2-18.0) L Hematocrit 26.1 % (42.0-52.0) L Mean Corpuscular Volume 81 FL (80-99) Mean Corpuscular Hemoglobin 27.9 PG (27.0-31.0) Mean Corpuscular Hemoglobin Concent 34.4 G/DL (32.0-36.0) Red Cell Distribution Width 21.1 % (11.6-14.8) H Platelet Count 352 K/UL (150-450) Mean Platelet Volume 6.8 FL (6.5-10.1) Neutrophils (%) (Auto) % (45.0-75.0) Lymphocytes (%) (Auto) % (20.0-45.0) Monocytes (%) (Auto) % (1.0-10.0) Eosinophils (%) (Auto) % (0.0-3.0) Basophils (%) (Auto) % (0.0-2.0) Differential Total Cells Counted 100 Neutrophils % (Manual) 75 % (45-75) Lymphocytes % (Manual) 17 % (20-45) L Monocytes % (Manual) 3 % (1-10) Eosinophils % (Manual) 0 % (0-3) Basophils % (Manual) 0 % (0-2) Band Neutrophils 5 % (0-8) Platelet Estimate Adequate Platelet Morphology Normal Hypochromasia 1+ Anisocytosis 3+ Microcytosis 1+ Crenated Cell 1+ Sodium Level 139 MMOL/L (136-145) Potassium Level 3.5 MMOL/L (3.5-5.1) Chloride Level 107 MMOL/L (98-107) Carbon Dioxide Level 21 MMOL/L (21-32) Anion Gap 11 mmol/L (5-15) Blood Urea Nitrogen 7 mg/dL (7-18) Creatinine 0.8 MG/DL (0.55-1.30) Estimat Glomerular Filtration Rate > 60 mL/min (>60) Glucose Level 104 MG/DL (74-106) Calcium Level 7.6 MG/DL (8.5-10.1) L Test 02/08/20 05:44 02/08/20 13:23 POC Whole Blood Glucose 85 MG/DL (74-106) 89 MG/DL (74-106) Microbiology Date/Time Source Procedure Growth Status 02/07/20 15:30 Nasopharynx SARS-CoV-2 RdRp Gene Assay - Final Complete Objective HEAD AND NECK: Trach in place LUNGS: Coarse rhonchi. CARDIOVASCULAR: Regular S1 and S2 with no gallop. ABDOMEN: Soft.PEG in place EXTREMITIES: No pitting edema. Kevin Lopez MD Feb 08, 2020 14:17
[2020-02-08 16:00] VITALS: BP 133/72
--- NOTE | 2020-02-08 16:08 | Surgery Progress Note ---
Surgery Progress Note Subjective Procedure Performed Tracheostomy Additional Comments right ij line removed see note hemostasis now Objective Last 24 Hour Vital Signs Date Time Temp Pulse Resp B/P (MAP) Pulse Ox O2 Delivery O2 Flow Rate FiO2 02/08/20 12:00 98.2 91 18 138/78 (98) 100 02/08/20 12:00 30 02/08/20 12:00 Mechanical Ventilator 02/08/20 11:42 91 02/08/20 11:06 91 19 30 02/08/20 08:00 98.2 90 18 138/72 (94) 100 02/08/20 08:00 30 02/08/20 08:00 Mechanical Ventilator 02/08/20 07:52 100 19 30 02/08/20 07:42 87 02/08/20 04:00 30 02/08/20 04:00 97.9 83 18 142/79 (100) 100 02/08/20 04:00 Mechanical Ventilator 02/08/20 03:58 87 02/08/20 03:30 92 19 30 02/08/20 00:00 97.9 84 18 128/77 (94) 100 02/08/20 00:00 Mechanical Ventilator 02/07/20 23:58 91 02/07/20 23:07 86 19 30 02/07/20 20:00 Mechanical Ventilator 02/07/20 20:00 30 02/07/20 20:00 98.2 84 18 134/73 (93) 100 02/07/20 19:30 87 19 30 02/07/20 19:25 81 I&O Intake and Output 02/07/20 02/08/20 19:00 07:00 Intake Total 1080 ml 1176 ml Output Total 1000 ml 700 ml Balance 80 ml 476 ml Free Water 120 ml 90 ml IV Total 535 ml 446 ml Tube Feeding 425 ml 640 ml Output Urine Total 1000 ml 700 ml Laboratory Tests Test 02/07/20 19:11 02/07/20 19:14 02/08/20 00:34 02/08/20 03:15 POC Whole Blood Glucose 76 MG/DL (74-106) 78 MG/DL (74-106) 98 MG/DL (74-106) White Blood Count 9.5 K/UL (4.8-10.8) Red Blood Count 3.21 M/UL (4.70-6.10) L Hemoglobin 9.0 G/DL (14.2-18.0) L Hematocrit 26.1 % (42.0-52.0) L Mean Corpuscular Volume 81 FL (80-99) Mean Corpuscular Hemoglobin 27.9 PG (27.0-31.0) Mean Corpuscular Hemoglobin Concent 34.4 G/DL (32.0-36.0) Red Cell Distribution Width 21.1 % (11.6-14.8) H Platelet Count 352 K/UL (150-450) Mean Platelet Volume 6.8 FL (6.5-10.1) Neutrophils (%) (Auto) % (45.0-75.0) Lymphocytes (%) (Auto) % (20.0-45.0) Monocytes (%) (Auto) % (1.0-10.0) Eosinophils (%) (Auto) % (0.0-3.0) Basophils (%) (Auto) % (0.0-2.0) Differential Total Cells Counted 100 Neutrophils % (Manual) 75 % (45-75) Lymphocytes % (Manual) 17 % (20-45) L Monocytes % (Manual) 3 % (1-10) Eosinophils % (Manual) 0 % (0-3) Basophils % (Manual) 0 % (0-2) Band Neutrophils 5 % (0-8) Platelet Estimate Adequate Platelet Morphology Normal Hypochromasia 1+ Anisocytosis 3+ Microcytosis 1+ Crenated Cell 1+ Sodium Level 139 MMOL/L (136-145) Potassium Level 3.5 MMOL/L (3.5-5.1) Chloride Level 107 MMOL/L (98-107) Carbon Dioxide Level 21 MMOL/L (21-32) Anion Gap 11 mmol/L (5-15) Blood Urea Nitrogen 7 mg/dL (7-18) Creatinine 0.8 MG/DL (0.55-1.30) Estimat Glomerular Filtration Rate > 60 mL/min (>60) Glucose Level 104 MG/DL (74-106) Calcium Level 7.6 MG/DL (8.5-10.1) L Test 02/08/20 05:44 02/08/20 13:23 POC Whole Blood Glucose 85 MG/DL (74-106) 89 MG/DL (74-106) Plan Problems: (1) Altered level of consciousness Assessment & Plan: weaning vent unsure if will be safe for extubation consider trach (2) Hypovolemic shock Assessment & Plan: resuscitation extubated monitor respiratory keep hob elevated supplemental O2 coded intubated in icu prognosis guarded ?code status change ?trach s/p trach 02/05/2020 Gallbladder demonstrates sludge. No stones, wall thickening, nor pericholecystic fluid. Patient unable to report Wilson's sign Common bile duct measures 3 mm in diameter. No intrahepatic biliary ductal dilatation. Liver demonstrates coarsened echogenicity and surface nodularity. It demonstrates multiple cysts. Portal vein and hepatic veins are patent. The pancreas demonstrates 3 hypoechoic lesions in the head and body, measuring approximately 5 mm in diamete r each. Spleen is unremarkable, poorly visualized. Left kidney measures 11.4 cm in length. Right kidney measures 11.3 cm length. Both kidneys demonstrate normal echogenicity. There is severe right and moderate left hydronephrosis. Echogenic foci are seen in the left renal sinus and collecting system. Bladder is empty, contains a Mathew catheter. Non-aneurysmal abdominal aorta . There are bilateral pleural effusions Impression: Bilateral right greater than left hydronephrosis, increased since pr ior study of 03/20/2019. Etiology not demonstrated Empty bladder with a Mathew catheter 3 hypoechoic lesions within the pancreatic head and body, each measuring about 5 mm. Appearance nonspecific. Recommend further evaluation with pancreas protocol MRI Bilateral pleural effusions Echogenic liver, consistent with hepatocellular disease. Surface likely nodularity raises concern for cirrhosis Gallbladder sludge. Negative for dilated bile ducts Probable nonobstructive left intrarenal calculi Multiple hepatic cysts (3) Lactic acid acidosis (4) Hypernatremia (5) Paraplegia (6) Anemia Assessment & Plan: no active bleeding noted no large hematoma dressings okay likely related to heme will monitor transfuse prbc with HD trend labs thank you (7) Diabetes (8) Weak (9) HTN (hypertension) (10) ARF (acute renal failure) (11) Hypercalcemia (12) Hyperuricemia (13) Dehydration (14) UTI (urinary tract infection) (15) Failure to thrive in adult Assessment & Plan: patient identified to have DTI on bilateral heels right with 5cm x 4cm area of dti not open no drainage no signs of infection left with 3cm x 2cm. pillow under leg optifoam dressings nutritional optimization will follow no acute surgery DAILY ESTIMATED NEEDS: Needs based on underweight, suspected wt loss, HD, CRITICAL CARE/ 57.6kg 25-33 kcals/kg 8804-7936 total kcals 1.2-2 g protein/kg 69-115 g total protein 25-30 mL/kg 7448-5058 total fluid mLs NUTRITION DIAGNOSIS: *Increased kcal and pro needs r/t underweight status, suspected significant wt loss as evidenced by pt @ 71% IBW w/ BMI 17.2, underweight per guidelines, w/ suspected signficant wt loss of 30lbs/19% in 10 months. * Swallowing difficulty R/T dysphagia, respiratory status as evidenced by s/p NGT insertion (01/08), now NPO, s/p code blue (01/10), orally intubated. CURRENT TF:NPO ENTERAL NUTRITION RECOMMENDATIONS: WHEN HEMODYNAMICALLY STABLE: Nepro @ 40ml/hr x 24 hrs to provide 960ml, 1728kcal, 77g prot, 698ml free water WHEN HEMODYNAMICALLY STABLE AND MEDICALLY APPROPRIATE TO FEED: -> initiate TF @ 5ml/hr x 6hrs, advance slowly 5ml q 4-6 hrs as tolerated to goal rate -> HOB over 30 degrees/ water flush per MD WITHOUT HEMODYNAMIC STABILITY -> If medically appropriate to feed, rec trophic feeding of Nepro @ 5ml/hr x 24 hrs to maintain gut integrity (16) Pelvic mass Assessment & Plan: invasive pelvic mass likely prostate necrotic nodes likely spread recommend colonoscopy given invasion possible to rectum oncology input thank you There is a large pelvic mass which is cephalad to but inseparable from the prostate. This also is inseparable from the posterior wall of the bladder and there appears to be circumferential bladder wall thickening. This mass also appears to involve the seminal vesicles. This measures approximately 8.8 cm transverse by 10 cm craniocaudad by 7.4 cm AP. The periphery of this mass is very lobulated. The mass may also invade the adjacent rectum. There is bilateral iliac chain lymphadenopathy, with nodes measuring up to 3 cm in diameter. Some of these nodes are very low in attenuation indicating that they are necrotic. There is also retroperitoneal lymphadenopathy. There is severe right and moderate left hydronephrosis and bilateral hydroureter. The dilated ureters terminate at the level of the mass. No intrinsic renal parenchymal abnormality. The pancreas is unremarkable. No findings corresponding to the areas of low-attenuation described on prior sonogram are evident. No pancreatic ductal dilatation is evident. The liver demonstrates multiple cysts. The gallbladder, bile ducts, spleen, adrenals are unremarkable. The bones demonstrate diffuse involvement with multiple mixed osteolytic/osteosclerotic lesions, mostly sclerotic component predominating. There is a right groin dialysis catheter in place, tip at the level of the iliac venous confluence. There is a nasogastric tube,, tip in the stomach. There is a Mathew catheter. There is a rectal tube lying outside the patient with the balloon inflated within the inner gluteal fold. There are bilateral pleural effusions. There is compressive atelectasis of most if not all of both lower lobes. 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 Compressive atelectasis of most of not all of both lower lobes Other findings as noted, including multiple liver cysts Lázaro Jenkins Feb 08, 2020 16:08
--- NOTE | 2020-02-08 16:09 | Operative Note - PDOC ---
Operative Note Operative Note Pre-op Diagnosis: Sepsis, renal insufficiency respiratory insufficiency Procedure: right IJ temp HD cath removal Post-op Diagnosis: same as pre-op Surgeon: Lázaro Jenkins Anesthesiologist: kingsley Anesthesia: MAC, other Specimen: none Complications: none Condition: stable Fluids: See records Estimated Blood Loss: none Drains: none Implant(s) used?: No Description of Procedure patient plan d/c. per renal no longer needs HD. dressings removed. sutures cut. line removed. pressure held for 10 mins until hemostasis. dressings applied. will monitor for bleeding Lázaro Jenkins Feb 08, 2020 16:09
[2020-02-08] MEDS: DAPTOmycin 700 MG in NS 55 ML IV SCH (16:23)
[2020-02-08] MEDS ORDERED: Sterile Water Irrig 1000ml IRRIG ONE (17:04)
[2020-02-08] MEDS ORDERED: D5 1/2NS 1000ml IV ONE (17:04)
[2020-02-08] MEDS ORDERED: Tubing IV Secondary IV ONE (17:04)
[2020-02-08] MEDS ORDERED: NS 275ml ONE (17:04)
--- NOTE | 2020-02-10 16:39 | Discharge Summary ---
Discharge Summary Discharge Summary _ DATE OF ADMISSION: 01/05/2020 DATE OF DISCHARGE: 02/08/2020 DISCHARGED BY: Dr. Farrkuh Ríos CONSULTANTS: Dr. Kevin Bernstein BRIEF HOSPITAL COURSE: Patient is a 69-year-old male from [facility], presented to ED due to dehydration, altered mental status, hypernatremia and tachycardia. Patient is nonverbal at baseline. [facility] and was noted to have a heart rate of 130. O2 saturation was 92% on room air and was placed on 5 L nasal cannula by paramedics. Upon arrival to ED, patient was tachycardic. Blood work showed WBC of 10, hemoglobin 10, hematocrit 33. Sodium was 163. Chloride 124. BUN 53 and creatinine 3.1. Lactic acid level 4.5. Troponin was negative. He was given IV normal saline with gradual decrease resolution of tachycardia and improvement. Head CT was unremarkable. Chest x-ray showed no focal infiltrates or consolidation. He was given IV fluids and was started empirically on vancomycin and cefepime. He was admitted to stepdown unit for evaluation of hyponatremia, renal failure, dehydration, hypovolemic shock and acidosis. He was given IV hydration. He was given albumin bolus. He was placed on n.p.o. Patient was on amlodipine and metoprolol at the prison. Antihypertensives were initially placed on hold due to hypotension. He had a prior history of CVA and is on Plavix. Renal function was monitored. Rapid Covid test was negative. Influenza screen negative. He was empirically treated with ceftriaxone. He has waxing and waning of consciousness. He had episodes of agitation and was pulling out lines. He was given Remeron nightly. He eventually passed swallow evaluation but had poor p.o. intake. NGT was inserted. He was started on tube feeding. Ceftriaxone was discontinued and was observed off antibiotics. Serum calcium level was elevated. Uric acid elevated. He was given pamidronate 60 mg IV. He was started on Bicitra. Plavix and heparin were placed on hold. Patient had nosebleed as well as hematuria. There was a drop in hemoglobin. He had an episode of hypotension and was transferred to ICU on 01/10. He was started on IV pressors. He had worsening renal failure. Liver function were elevated. Stat surgical referral was done for placement of a temporary right femoral hemodialysis catheter. He was started on hemodialysis. He was also given blood transfusion. There was reported dark NGT aspirate. Thrombocytopenia worsened. Hepatitis and HIV panel negative. Abdominal ultrasound showed lesions in the pancreas. He was orally intubated. He was extubated January 13. He was eventually downgraded to telemetry. Patient would need PEG placement. Abdominal CT showed a large pelvic mass involving the prostate, bladder, seminal vesicles, presumably representing prostatic malignancy. Evidence of disseminated malignancy with extensive lymphadenopathy and evidence of diffuse osseous metastasis. Severe right and moderate left hydronephrosis and bilateral hydroureter due to ureteral obstruction bladder mass. On 01/20/2020, patient went into [facility]. Patient was orally intubated and was transferred to ICU. He was started on IV pressors. Patient has advanced metastatic prostate CA. PSA was over 2700. He was given Lasix drip. He was placed on weaning protocols. Patient was planned on PEG tube placement. Procedure was canceled due to respiratory distress. He was extubated 01/22. He again went into CODE BLUE 01/28. Chest x-ray showed an enlarged left pleural effusion. Increasing interstitial congestion. He was started on Zosyn for possible aspiration. A Mega catheter was inserted to the right internal jugular vein. On February 05, 2020, tracheostomy was placed. Patient required prolonged ventilatory support. He underwent EGD with PEG tube placement the following day. Kidney function has improved. Hemodialysis catheter was discontinued. [facility]. FINAL DIAGNOSES: Septic shock Metastatic prostate cancer Respiratory failure, extubated on 01/22 and reintubated on 01/28, status post tracheostomy Acute renal failure Anemia VRE bacteremia Large left pleural effusion Probable UTI Probable pneumonia Status post blood transfusion Shock liver Dysphagia status post PEG placement Acute renal failure with tubular necrosis Hypernatremia Hypercalcemia Hyperuricemia Acute metabolic and toxic encephalopathy Mild malnutrition Severe dehydration Severe metabolic acidosis Diarrhea Deep tissue pressure injury on bilateral heel DISPOSITION: Patient was discharged to SNF. DISCHARGE MEDICATIONS: Refer to Discharge Medication List. I have been assigned to complete a discharge summary on this account, I was not involved with the patient's management.--BRIDGET Contreras Jacqueline Robles NP Feb 10, 2020 16:39
== END 2020-02-08 17:05 | DRG 5 ==
LOC: EDBD 15:09 → EMR 15:15 → 2E 16:29 → EDBEDREQ 17:13 → EDBEDREQSVC 17:16 → 2W 17:45 → ICU 01-11 10:39 → 2E 01-16 17:35 → ICU 01-20 04:34 → 2E 01-26 06:46 → ICU 01-29 23:16 → 2W 02-06 16:30
DX: A41.9 Sepsis, unspecified organism (principal); R65.21 Severe sepsis with septic shock; N17.0 Acute kidney failure with tubular necrosis; G92 Toxic encephalopathy; E86.0 Dehydration; E87.0 Hyperosmolality and hypernatremia; D64.9 Anemia, unspecified; N18.9 Chronic kidney disease, unspecified; G82.20 Paraplegia, unspecified; E11.22 Type 2 diabetes mellitus with diabetic chronic kidney disease; E44.1 Mild protein-calorie malnutrition; E83.52 Hypercalcemia; Z68.22 Body mass index [BMI] 22.0-22.9, adult; R57.1 Hypovolemic shock; J44.0 Chronic obstructive pulmonary disease with (acute) lower respiratory infection; J18.9 Pneumonia, unspecified organism; I12.9 Hypertensive chronic kidney disease with stage 1 through stage 4 chronic kidney disease, or unspecified chronic kidney disease; F03.91 Unspecified dementia, unspecified severity, with behavioral disturbance; Z20.828 Contact with and (suspected) exposure to other viral communicable diseases; R62.7 Adult failure to thrive; J96.01 Acute respiratory failure with hypoxia; R19.7 Diarrhea, unspecified; I48.91 Unspecified atrial fibrillation; R13.10 Dysphagia, unspecified; K72.00 Acute and subacute hepatic failure without coma; C61 Malignant neoplasm of prostate; C79.11 Secondary malignant neoplasm of bladder; C79.82 Secondary malignant neoplasm of genital organs; E87.6 Hypokalemia; R04.0 Epistaxis; R31.9 Hematuria, unspecified; Z51.5 Encounter for palliative care; J90 Pleural effusion, not elsewhere classified; N39.0 Urinary tract infection, site not specified; N13.30 Unspecified hydronephrosis; D69.6 Thrombocytopenia, unspecified; D61.818 Other pancytopenia
CPT/HCPCS: 36415; 36569; 70450; 71045; 74018; 74177; 74181; 76700; 76937; 80048; 80053; 80076; 80202; 81003; 82270; 82330; 82378; 82550; 82553; 82607; 82728; 82746; 82803; 82962; 82977; 83036; 83540; 83550; 83605; 83615; 83735; 83880; 84100; 84153; 84300; 84443; 84484; 84550; 85007; 85025; 85044; 85379; 85384; 85610; 85730; 86140; 86703; 86705; 86709; 86710; 86803; 86850; 86900; 86901; 86920; 87040; 87070; 87081; 87086; 87181; 87205; 87324; 87340; 92950; 93005; 93306; 93970; 94002; 94003; 94150; 94664; 96361; 96365; 96367; 99291; J0171; J1815; J2430; J2765; J7030; U0002